=== PATIENT | male | born 1950 | race Caucasian/White ===

== ENCOUNTER 2016-11-10 09:23 | Inpatient (IN) | payer MEDICARE ==
[~2016-11-10] VITALS: Ht 180.3 cm; Wt 158.8 kg
[~2016-11-10 09:23] MED LIST: ADV1DS; AGM875T PO; ALBU17AE3; ALLP100T PO; AMLO10TA82 PO; ASCO-262 PO; ASCO500T20 PO; ASP325T PO; ASPI-892 PO; ATOR40TA PO; BYETTA SQ; CALC-656 PO; CALC-694 PO; CALC-793 PO; CARV12.52 PO; CARV25TA PO; CEPH-38 PO; CEPH500C PO; CHLO25TA2 PO; CHOL200035 PO; CHOL4PAC PO; CHOL5000 PO; CLPD75T PO; CPH250CIP; DICL500C PO; FENO145T; GABA-488 PO; GBPN300C PO; GBPN600T PO; GEMF600T3 PO; GFN600TCR PO; HCT25T PO; HYDR-757 PO; INSASP10V SQ; INSU100C7 SQ; INSU100V SQ; INSU100V6 SQ; INSU100V8; ISOS30TA7 PO; ISOS60TA PO; Insulin Human Lispro SQ; LANTIS SQ; LEVE1U SQ; LOSA100T7 PO; LOVAZA PO; MAGN400T6 PO; MTF500T PO; MULT1TAB63; NFVALS90T PO; OMEG1CAP74 PO; OMG1KC; PITA4TAB2 PO; PREG100C PO; PROP1TAB77; SULF1TAB38 PO; TIZA4CAP8 PO; VENL75TA6 PO; VITA400C60 PO; VITA400T7 PO; VLS80C; VNL75CCR PO
[2016-11-10] MEDS ORDERED: ONDANSETRON 4 MG/2 ML (SDV) Z0FRAN ONE (09:26)
[2016-11-10] MEDS ORDERED: NS IV 1000 ML 1,000 ML IV ONE (09:36)
[2016-11-10] MEDS ORDERED: ONDANSETRON 4 MG/2 ML (SDV) Z0FRAN IVP PRN (09:45)
--- NOTE | 2016-11-10 09:52 | ED General ---
General Chief Complaint: Fever-Adult/Adol Stated Complaint: FEVER/SOA Source of Information: Patient Exam Limitations: No Limitations History of Present Illness Time Seen by Provider: 09:24 Initial Comments Here with report of fever, shortness of breath and altered mental status. This apparently started yesterday. Family found him on the floor last night and got him back in the bed. Last known well time was earlier yesterday. This morning he has persistent fever and altered mental status. Also noted to be vomiting. He is answering some questions but is confused. Timing/Duration: 24 Hours Severity: Moderate, Severe Associated Systoms: Cough, Fever/Chills, Nausea/Vomiting, Shortness of Air, Weakness Allergies and Home Medications Allergies Coded Allergies: niacin (Unverified Allergy, Unknown, 06/26/10) rosuvastatin (Verified Allergy, Unknown, 04/20/07) fenofibrate (Unverified Adverse Reaction, Unknown, LIVER PROBLEMS, 01/23/15 ) Home Medications Allopurinol 100 Mg Tab, 100 MG PO DAILY, (Reported) LAST FILLED #90 07-19-14 Ascorbic Acid 500 Mg Tablet, 1,000 MG PO DAILY, (Reported) TAKES 2 (500MG) TABLETS Aspirin 81 Mg Tabec, 81 MG PO DAILY, (Reported) Calcium Carbonate/Vitamin D3 1 Each Tablet, 1 TAB PO DAILY, (Reported) Chlorthalidone 25 Mg Tablet, 12.5 MG PO DAILY, (Reported) NO FILL DATE ON FILE WITH [facility] TAKES 1/2 (25MG) TABLET Clopidogrel 75 Mg Tablet, 75 MG PO DAILY, (Reported) LAST FILLED #90 07-11-14 Gemfibrozil 600 Mg Tablet, 600 MG PO DAILY, (Reported) LAST FILLED #30 07-19-14 Hydrocodone/Acetaminophen 1 Each Tablet, 1 EACH PO Q4H PRN for PAIN, #10 Prescribed by: PRIMO FRANCOIS on 07/08/16 1332 Insulin Determir 1 Unit/0.01 Ml Soln, 105 UNIT SQ HS for 90 Days Prescribed by: GIL KAHN on 01/29/15 0905 Magnesium Oxide 400 Mg Tablet, 400 MG PO DAILY, (Reported) [place]-3/Dha/Epa/Fish Oil 1,000 Mg Capsule, 2,000 MG PO BID, (Reported) Pregabalin Unknown Strength Capsule, 100 MG PO HS, (Reported) Tizanidine HCl 4 Mg Capsule, 4 MG PO HS, (Reported) Valsartan 320 Mg Tablet, 320 MG PO DAILY, (Reported) LAST FILLED #90 10-11-14 Vitamin E Acetate 400 Unit Capsule, 400 UNIT PO DAILY, (Reported) [Insulin Human Lispro] 1 UNIT/0.01 ML HENRIQUE, 35 UNIT SQ AC for 90 Days Prescribed by: GIL KAHN on 01/29/15 0905 Constitutional: see HPI, No chills, No fever EENTM: no symptoms reported Respiratory: cough, short of breath Cardiovascular: No chest pain, No edema Gastrointestinal: No abdominal pain, No nausea, No vomiting Psychiatric/Neurological: See HPI, Other (confusion) Other Unable complete review of systems due to confusion and patient's medical condition. Past Fzkwuen-Ydujaj-Heposv Hx Patient Social History Alcohol Use: Past History Recreational Drug Use: No (MJ HX) Smoking Status: Former Smoker Former Smoker/When Quit: Aug 07, 2005 Recent Hopitalizations: No Immunizations Up To Date Tetanus Booster (TDap): Less than 5yrs Seasonal Allergies Seasonal Allergies: No Surgeries HX Surgeries: Yes Surgeries: Cardiac, Coronary Stent Respiratory Hx Respiratory Disorders: Yes (CPAP) Respiratory Disorders: Sleep Apnea, COPD Cardiovascular Hx Cardiac Disorders: Yes Cardiac Disorders: Heart Attack, Hypertension Neurological Hx Neurological Disorders: Yes (3 PINCHED NERVES ON NECK ON LEFT SIDE) Neurological Disorders: Vertigo Reproductive System Hx Reproductive Disorders: No Genitourinary Hx Genitourinary Disorders: No Gastrointestinal Hx Gastrointestinal Disorders: No Musculoskeletal Hx Musculoskeletal Disorders: Yes Musculoskeletal Disorders: Degenerate Disk Disease, Arthritis, Chronic Back Pain Endocrine Hx Endocrine Disorders: Yes Endocrine Disorders: Diabetes, Insulin dep HEENT HX ENT Disorders: No (vertigo due to inner ear disturbance) Loss of Vision: Right Cancer Hx Cancer: No Psychosocial Hx Psychiatric Problems: No Integumentary HX Skin/Integumentary Disorder: No Blood Transfusions Hx Blood Disorders: No Reviewed Nursing Assessment Reviewed/Agree w Nursing PMH: Yes Family Medical History Family Medial History: Cardiovascular disease 19 FATHER, Onset:Unknown FH: breast cancer G8 SISTER, Onset:50's - 60 FH: ovarian cancer 19 MOTHER, Onset:40's - 50 Physical Exam-Suspected Sepsis Physical Exam Vital Signs Vital Sign - Last 12Hours 11/10/16 11/10/16 09:44 09:45 Temp 102.5 Pulse 110 Resp 22 B/P (MAP) 137/84 Pulse Ox 95 O2 Delivery Room Air O2 Flow Rate 3.00 Capillary Refill : General Appearance: Mild Distress, Obese HEENT: PERRL/EOMI, Pharynx Normal Neck: Non Tender, Supple Respiratory: No Accessory Muscle Use, Crackles (bilateral bases) Cardiovascular: No Murmur, Tachycardia Gastrointestinal: Non Tender, Soft Back: Normal Inspection, No CVA Tenderness, No Vertebral Tenderness Extremity: Normal Capillary Refill, Normal Range of Motion, Non Tender Neurologic/Psychiatric: Alert, Disoriented x3 Skin: warm/dry, other (healing wounds to central chest from previous CABG. No obvious signs of infection. Right lower extremity with redness and inflammation to the area between the knee and ankle anteriorly that is tender to the touch. He has a few scattered healing wounds to both knees. Right anterior knee has new abrasion presumably from fall last night.) Focused Exam Lactic Acid Level Laboratory Tests Test 11/10/16 09:42 Lactic Acid Level 1.47 MMOL/L (0.50-2.00) Progress/Results/Core Measures Suspected Sepsis SIRS Temperature: Pulse: Respiratory Rate: Laboratory Tests 11/10/16 09:42: White Blood Count 13.5H Blood Pressure / Mean: Laboratory Tests 11/10/16 09:42: Creatinine 1.57H, INR Comment 1.2, Platelet Count 114L, Total Bilirubin 1.3H Results/Orders Lab Results Laboratory Tests Test 11/10/16 09:42 11/10/16 11:35 Range/Units White Blood Count 13.5 H 4.3-11.0 10^3/uL Red Blood Count 4.28 L 4.35-5.85 10^6/uL Hemoglobin 12.6 L 13.3-17.7 G/DL Hematocrit 37 L 40-54 % Mean Corpuscular Volume 86 80-99 FL Mean Corpuscular Hemoglobin 29 25-34 PG Mean Corpuscular Hemoglobin Concent 34 32-36 G/DL Red Cell Distribution Width 15.5 H 10.0-14.5 % Platelet Count 114 L 130-400 10^3/uL Mean Platelet Volume 10.9 H 7.4-10.4 FL Neutrophils (%) (Auto) 90 H 42-75 % Lymphocytes (%) (Auto) 4 L 12-44 % Monocytes (%) (Auto) 6 0-12 % Eosinophils (%) (Auto) 0 0-10 % Basophils (%) (Auto) 0 0-10 % Neutrophils # (Auto) 12.2 H 1.8-7.8 X 10^3 Lymphocytes # (Auto) 0.5 L 1.0-4.0 X 10^3 Monocytes # (Auto) 0.8 0.0-1.0 X 10^3 Eosinophils # (Auto) 0.0 0.0-0.3 10^3/uL Basophils # (Auto) 0.0 0.0-0.1 10^3/uL Neutrophils % (Manual) 72 % Lymphocytes % (Manual) 5 % Monocytes % (Manual) 7 % Eosinophils % (Manual) 0 % Basophils % (Manual) 0 % Band Neutrophils 15 % Reactive Lymphocytes 1 % Anisocytosis SLIGHT Prothrombin Time 14.4 12.2-14.7 SEC INR Comment 1.2 0.8-1.4 Activated Partial Thromboplast Time 27 24-35 SEC Sodium Level 133 L 135-145 MMOL/L Potassium Level 3.5 L 3.6-5.0 MMOL/L Chloride Level 102 98-107 MMOL/L Carbon Dioxide Level 19 L 21-32 MMOL/L Anion Gap 12 5-14 MMOL/L Blood Urea Nitrogen 21 H 7-18 MG/DL Creatinine 1.57 H 0.60-1.30 MG/DL Estimat Glomerular Filtration Rate 45 BUN/Creatinine Ratio 13 Glucose Level 349 H 70-105 MG/DL Lactic Acid Level 1.47 0.50-2.00 MMOL/L Calcium Level 8.0 L 8.5-10.1 MG/DL Total Bilirubin 1.3 H 0.1-1.0 MG/DL Aspartate Amino Transf (AST/SGOT) 18 5-34 U/L Alanine Aminotransferase (ALT/SGPT) 17 0-55 U/L Alkaline Phosphatase 78 40-136 U/L Troponin I < 0.30 <0.30 NG/ML Total Protein 6.0 L 6.4-8.2 G/DL Albumin 3.4 3.2-4.5 G/DL Urine Color YELLOW Urine Clarity CLEAR Urine pH 5 5-9 Urine Specific Graff 1.030 H 1.016-1.022 Urine Protein 4+ NEGATIVE Urine Glucose (UA) 4+ H NEGATIVE Urine Ketones 2+ H NEGATIVE Urine Nitrite NEGATIVE NEGATIVE Urine Bilirubin 1+ H NEGATIVE Urine Urobilinogen 1 NORMAL MG/DL Urine Leukocyte Esterase 1+ H NEGATIVE Urine RBC (Auto) 2+ H NEGATIVE Urine RBC RARE /HPF Urine WBC 0-2 /HPF Urine Squamous Epithelial Cells RARE /HPF Urine Crystals NONE /LPF Urine Bacteria TRACE /HPF Urine Casts PRESENT /LPF Urine Hyaline Casts 5-10 H /LPF Urine Mucus MODERATE H /LPF Urine Other FEW SPERM H /HPF Urine Culture Indicated NO Micro Results Microbiology 11/10/16 Influenza Types A,B Antigen ([facility]) - Final, Complete My Orders Orders - RIOS MENDEZ MD Ondansetron Injection (Zofran Injectio (11/10/16 09:26) Cbc With Automated Diff (11/10/16 09:36) Comprehensive Metabolic Panel (11/10/16 09:36) Lactic Acid Analyzer (11/10/16 09:36) Blood Culture (11/10/16 09:36) Sputum Culture (11/10/16 09:36) Ua Culture If Indicated (11/10/16 09:36) Protime With Inr (11/10/16 09:36) Partial Thromboplastin Time (11/10/16 09:36) Chest 1 View, Ap/Pa Only (11/10/16 09:36) O2 (11/10/16 09:36) Ondansetron Injection (Zofran Injectio (11/10/16 09:45) Saline Lock/Iv-Start (11/10/16 09:36) Saline Lock/Iv-Start (11/10/16 09:36) Ekg Tracing (11/10/16 09:36) Troponin I (11/10/16 09:36) Vital Signs Adult Sepsis Patie Q1HR (11/10/16 09:36) Remove Rings In Anticipation O (11/10/16 09:36) Influenza A And B Antigens (11/10/16 09:36) Ns Iv 1000 Ml (Sodium Chloride 0.9%) (11/10/16 09:36) Ct Head Wo (11/10/16 09:55) Manual Differential (11/10/16 09:42) Acetaminophen Tablet (Tylenol Tablet) (11/10/16 11:33) Ankle, Right, 3 Views (11/10/16 11:34) Acetaminophen Tablet (Tylenol Tablet) (11/10/16 11:32) Medications Given in ED Current Medications Medications Dose Ordered Sig/Perico Route Start Time Stop Time Status Last Admin Dose Admin Ondansetron HCl 4 mg ONCE PRN IVP 11/10/16 09:45 11/10/16 09:57 DC 11/10/16 09:56 4 MG Sodium Chloride 1,000 ml @ 0 mls/hr Q0M ONCE IV 11/10/16 09:36 11/10/16 09:38 DC 11/10/16 09:56 0 MLS/HR Vital Signs/I&O Vital Sign - Last 12Hours 11/10/16 11/10/16 11/10/16 09:44 09:45 11:56 Temp 102.5 102.5 Pulse 110 Resp 22 B/P (MAP) 137/84 Pulse Ox 95 O2 Delivery Room Air Nasal Cannula O2 Flow Rate 3.00 Capillary Refill : Progress Note : Progress Note Seen and evaluated. IV established by EMS. Second IV site initiated. Normal saline 1 L bolus initiated by EMS running. Repeat normal saline 1 L bolus ordered. Labs, EKG, chest x-ray, UA, blood cultures, lactic acid and influenza screen done. Monitor patient. UA obtained via straight catheter. No acute findings but patient does have redness and pain to the right lower extremity. Right ankle ordered. The skin of the right leg between the knee and the ankle is reddened, inflamed and tender and this may be the source of infection. Monitor patient. 1225: Right lower extremity cellulitis is likely diagnosis. I did discuss the case with Dr. PALACIO. We will initiate Rocephin and vancomycin admit the patient to the hospital. Patient and family agree with plan. Admit, inpatient status. Rocephin 1 g IV ordered here. ECG Initial ECG Impression Date: Nov 10, 2016 Initial ECG Impression Time: 10:23 Initial ECG Rate: 108 Initial ECG Rhythm: S.Tach Comment Sinus tachycardia with nonspecific intraventricular conduction delay. No evidence of ST elevation DC. Similar to previous of 08/07/15. Interpreted by me. Diagnostic Imaging Diagonstic Imaging: CT Plain Films/CT/US/NM/MRI: head Comments [facility]IA [facility]. [place], [place] NAME: ELMO GARCIA REC#: [id number] PT STATUS: REG ER : 1950 PHYSICIAN: RIOS MENDEZ MD ADMIT DATE: 11/10/16/ER Draft Date of Exam:11/10/16 CT HEAD WO PROCEDURE: CT head without contrast. TECHNIQUE: Multiple contiguous axial images were obtained through the brain without the use of intravenous contrast. INDICATION: Weakness, short of air, fever. Compared 06/01/2016. Ventricular size, caliber, and morphology unchanged from prior. There is no intracranial hemorrhage. There are no findings of focal or generalized edema. No mass or mass effect. The basilar cisterns patent. The sulci non effaced. Mild atherosclerotic vascular calcifications chronic. No acute pathology. IMPRESSION: Stable head CT revealed no hemorrhage, hydrocephalus, edema, or acute pathology. Unchanged from prior. Dictated on workstation # [id number] Dict: 11/10/16 1038 Trans: 11/10/16 1048 MIGUEL [id number] Interpreted by: STELLA HENDERSON Electronically signed by: Merlyngonscarolyn Imaging: Xray Plain Films/CT/US/NM/MRI: chest Comments VIA [facility]. [place], [place] NAME: ELMO GARCIA [facility] REC#: [id number] PT STATUS: REG ER : 1950 PHYSICIAN: RIOS MENDEZ MD ADMIT DATE: 11/10/16/ER Draft Date of Exam:11/10/16 CHEST 1 VIEW, AP/PA ONLY INDICATION: Fever and dyspnea, generalized weakness. DISCUSSION: A single portable upright view of the chest was obtained with comparison made to 08/07/2015. Stable normal heart size. Median sternotomy is unchanged. No focal consolidation, pleural fluid, or pneumothorax. No osseous abnormality. IMPRESSION: Stable negative portable chest. Dictated on workstation # [id number] Dict: 11/10/16 1019 Trans: 11/10/16 1022 [id number] Interpreted by: CLINTON MOREL MD Electronically signed by: Departure Communication Time/Spoke to Admitting Phy: 12:25 Impression Impression: Primary Impression: Cellulitis of right lower extremity Additional Impressions: Poorly controlled diabetes mellitus Altered mental status Qualified Codes: R41.0 - Disorientation, unspecified Disposition: ADMITTED INPATIENT Condition: Stable Decision to Admit Reason: Admit from ER (General) Decision to Admit/Date: Nov 10, 2016 Time/Decision to Admit Time: 12:25 Departure-Patient Inst. Referrals: GIL KAHN DO (PCP/Family) Primary Care Physician RIOS MENDEZ MD Nov 10, 2016 09:52
[2016-11-10 10:00] LABS: BASOPHILS % (AUTO) 0 % (0-10); EOSINOPHILS % (AUTO) 0 % (0-10); LYMPHOCYTES # (AUTO) 0.5 X 10^3 (1.0-4.0); LYMPHOCYTES % (AUTO) 4 % (12-44); MEAN CORPUSCULAR HEMOGLOBIN 29 PG (25-34); MEAN CORPUSCULAR HGB CONC 34 G/DL (32-36); MEAN CORPUSCULAR VOLUME 86 FL (80-99); MEAN PLATELET VOLUME 10.9 FL (7.4-10.4); MONOCYTES # (AUTO) 0.8 X 10^3 (0.0-1.0); MONOCYTES % (AUTO) 6 % (0-12); NEUTROPHILS # (AUTO) 12.2 X 10^3 (1.8-7.8); NEUTROPHILS % (AUTO) 90 % (42-75); PLATELET COUNT 114 10^3/uL (130-400); RED BLOOD COUNT 4.28 10^6/uL (4.35-5.85); RED CELL DISTRIBUTION WIDTH 15.5 % (10.0-14.5); WHITE BLOOD COUNT 13.5 10^3/uL (4.3-11.0)
[2016-11-10 10:16] LABS: INR 1.2 (0.8-1.4); PROTHROMBIN TIME PATIENT 14.4 SEC (12.2-14.7)
--- NOTE | 2016-11-10 10:22 | Diagnostic Imaging Report ---
INDICATION: Fever and dyspnea, generalized weakness. DISCUSSION: A single portable upright view of the chest was obtained with comparison made to 08/07/2015. Stable normal heart size. Median sternotomy is unchanged. No focal consolidation, pleural fluid, or pneumothorax. No osseous abnormality. IMPRESSION: Stable negative portable chest. Dictated by: Dictated on workstation # [id number]
[2016-11-10 10:23] LABS: ALANINE AMINOTRANSFERASE 17 U/L (0-55); ALBUMIN 3.4 G/DL (3.2-4.5); ANION GAP 12 MMOL/L (5-14); ASPARTATE AMINO TRANSFERASE 18 U/L (5-34); BILIRUBIN,TOTAL 1.3 MG/DL (0.1-1.0); BLOOD UREA NITROGEN 21 MG/DL (7-18); BUN/CREATININE RATIO 13; CARBON DIOXIDE 19 MMOL/L (21-32); CHLORIDE 102 MMOL/L (98-107); CREATININE SERUM 1.57 MG/DL (0.60-1.30); GFR ESTIMATED 45; GLUCOSE 349 MG/DL (70-105); POTASSIUM 3.5 MMOL/L (3.6-5.0); SODIUM 133 MMOL/L (135-145)
[2016-11-10 10:26] LABS: BAND NEUTROPHILS 15 %; BASOPHILS % (MANUAL) 0 %; EOSINOPHILS % (MANUAL) 0 %; LYMPHOCYTES % (MANUAL) 5 %; NEUTROPHILS % (MANUAL) 72 %
[2016-11-10 10:27] LABS: ANISOCYTOSIS SLIGHT; REACTIVE LYMPHOCYTES 1 %
[2016-11-10 10:29] LABS: TROPONIN I < 0.30 NG/ML (<0.30)
--- NOTE | 2016-11-10 10:48 | Diagnostic Imaging Report ---
PROCEDURE: CT head without contrast. TECHNIQUE: Multiple contiguous axial images were obtained through the brain without the use of intravenous contrast. INDICATION: Weakness, short of air, fever. Compared 06/01/2016. Ventricular size, caliber, and morphology unchanged from prior. There is no intracranial hemorrhage. There are no findings of focal or generalized edema. No mass or mass effect. The basilar cisterns patent. The sulci non effaced. Mild atherosclerotic vascular calcifications chronic. No acute pathology. IMPRESSION: Stable head CT revealed no hemorrhage, hydrocephalus, edema, or acute pathology. Unchanged from prior. Dictated by: Dictated on workstation # [id number]
[2016-11-10] MEDS ORDERED: ACETAMINOPHEN 500 MG TAB (TYLENOL) ONE (11:32)
[2016-11-10] MEDS ORDERED: ACETAMINOPHEN 500 MG TAB (TYLENOL) PO STA (11:33)
[2016-11-10 11:39] LABS: KETONES,URINE 2+ (NEGATIVE); LEUKOCYTE ESTERASE ,URINE 1+ (NEGATIVE); NITRITE,URINE NEGATIVE (NEGATIVE); PH,URINE 5 (5-9); PROTEIN,URINE 4+ (NEGATIVE); UROBILINOGEN,URINE 1 MG/DL (NORMAL)
[2016-11-10 11:56] LABS: BILIRUBIN,URINE 1+ (NEGATIVE); SQUAMOUS EPITHELIAL CELL,UR RARE /HPF; WBC,URINE 0-2 /HPF
--- NOTE | 2016-11-10 12:29 | Diagnostic Imaging Report ---
ANKLE, RIGHT, 3 VIEWS COMPARISON: None available. INDICATION: Ankle pain. TECHNIQUE: Non-weight bearing AP, oblique, and lateral views. FINDINGS: No acute fracture or traumatic malalignment. No osteochondral lesion of the talar dome. There is some irregularity of the posterior malleolus articular surface, which may be due to old trauma or degenerative change. There are small marginal osteophytes along the anterior aspect of the tibial plafond. Soft tissue attenuation, anterior fat pad, could relate to synovitis and/or small ankle joint effusion. Large dorsal and small plantar calcaneal spurs. No evidence of stress fracture. IMPRESSION: 1. No acute fracture or traumatic malalignment. 2. Irregularity of the posterior aspect of the tibial plafond is likely due to old trauma or degenerative change. 3. Mild osteoarthritis of the tibiotalar joint, with small anterior spurs. Dictated by: Dictated on workstation # [id number]
[2016-11-10] MEDS ORDERED: cefTRIAXone INJECTION 1,000 MG in NS (IVPB) 50 ML IV ONE (12:30)
[2016-11-10] MEDS: NS IV 1000 ML 1,000 ML IV SCH (14:57)
[2016-11-10] MEDS ORDERED: CARV25TA PO (15:30)
[2016-11-10] MEDS ORDERED: POTA10TA14 PO (15:30)
[2016-11-10] MEDS ORDERED: INSU100I29 SQ (15:30)
[2016-11-10] MEDS ORDERED: ONDA4TAB10 PO (15:30)
[2016-11-10] MEDS ORDERED: VALS320T14 PO (15:30)
[2016-11-10] MEDS ORDERED: ALLO100T PO (15:30)
[2016-11-10] MEDS ORDERED: CLOP75TA28 PO (15:30)
[2016-11-10] MEDS ORDERED: VENL150C98 PO (15:30)
[2016-11-10] MEDS ORDERED: GABA-488 PO (15:30)
[2016-11-10] MEDS ORDERED: GEMF600T3 PO (15:30)
[2016-11-10] MEDS ORDERED: AMLO10TA2 PO (15:30)
[2016-11-10] MEDS ORDERED: OMEP20CA12 PO (15:30)
[2016-11-10] MEDS ORDERED: FOLI1TAB24 PO (15:30)
[2016-11-10] MEDS ORDERED: INSU100V SQ (15:30)
[2016-11-10] MEDS ORDERED: FURO20TA4 PO (15:30)
[2016-11-10] MEDS: inSUlin (REGULAR) HUMAN 1 UNIT/0.01 ML (CHARGE PER UNIT) SC SCH ×2 (15:44→23:09)
[2016-11-10 16:00] VITALS: BP 128/73
[2016-11-10] MEDS ORDERED: VANCOMYCIN 2000 MG/NS 500 ML IVPB IV NR ×2 (16:00)
[2016-11-10 20:38] VITALS: BP 123/73
[2016-11-10] MEDS ORDERED: inSUlin ASPART (NovoLOG) 1 UNIT/0.01 ML (CHARGE PER UNIT) SC ONE (22:45)
[2016-11-11 00:30] VITALS: BP 132/74
[2016-11-11] MEDS: NS IV 1000 ML 1,000 ML IV SCH (01:08)
[2016-11-11] MEDS: ACETAMINOPHEN 500 MG TAB (TYLENOL) PO PRN (01:50)
[2016-11-11] MEDS: VANCOMYCIN 1,750 MG/NS 500 ML IVPB IV SCH ×4 (04:02→17:43)
[2016-11-11 04:20] VITALS: BP 130/74
[2016-11-11] MEDS: inSUlin (REGULAR) HUMAN 1 UNIT/0.01 ML (CHARGE PER UNIT) SC SCH ×4 (05:33→21:18)
[2016-11-11 06:42] LABS: BASOPHILS % (AUTO) 0 % (0-10); EOSINOPHILS % (AUTO) 0 % (0-10); LYMPHOCYTES # (AUTO) 1.1 X 10^3 (1.0-4.0); LYMPHOCYTES % (AUTO) 9 % (12-44); MEAN CORPUSCULAR HEMOGLOBIN 29 PG (25-34); MEAN CORPUSCULAR HGB CONC 34 G/DL (32-36); MEAN CORPUSCULAR VOLUME 86 FL (80-99); MEAN PLATELET VOLUME 10.8 FL (7.4-10.4); MONOCYTES % (AUTO) 8 % (0-12); NEUTROPHILS # (AUTO) 9.7 X 10^3 (1.8-7.8); NEUTROPHILS % (AUTO) 82 % (42-75); PLATELET COUNT 121 10^3/uL (130-400); RED BLOOD COUNT 4.26 10^6/uL (4.35-5.85); RED CELL DISTRIBUTION WIDTH 15.6 % (10.0-14.5); WHITE BLOOD COUNT 11.8 10^3/uL (4.3-11.0)
[2016-11-11 07:12] LABS: ALBUMIN 3.2 G/DL (3.2-4.5); BILIRUBIN,TOTAL 0.9 MG/DL (0.1-1.0); CALCIUM 8.5 MG/DL (8.5-10.1); CREATININE SERUM 1.25 MG/DL (0.60-1.30); POTASSIUM 3.5 MMOL/L (3.6-5.0)
[2016-11-11 08:00] VITALS: BP 152/78
--- NOTE | 2016-11-11 10:38 | History & Physical-Hospitalist ---
HPI History of Present Illness: HPI/Chief Complaint CC: Cellulitis of right lower leg HPI: This is a 66yoWM pt of Dr. Pelletier's that presented to ER with fever and right lower leg redness. Pt was found on the floor and was vomiting yesterday. Pt lives alone at home, and we are unclear if pt will be able to maintain this living situation. Chart Review: Max fever 102.5 Vitals stable otherwise WBC from 13.5 to 11.8 Platelets 121k K+ 3.5 Sugars high but restarted home Insulin jackaroo: RN states that pt has elevated BP and home meds have not been reconciled. Pt is on sliding scale Insulin currently. Patient Interview: Pt states that he feels improved today. Pt's PCP is Dr. Pelletier and he sees him every 6 months. Pt's [employer] is Dr. Yoon in [place], and he has an appointment with him in November. Pt reports that he has a closed Carotid, and is being monitored for that Pt states that he has felt dizzy recently. Pt occasionally uses a walker to ambulate, and often uses a cane. Pt lives at home alone, and uses CPAP regularly. Pts CPAP has O2. Pt does not see wound care. Last summer pt was brought to [facility] in [place] for surgery. Physical exam stable. Pt requests topical cream. Scribed by Felipe Moran under the direct supervision of Dr. Zepeda. Source: patient, family Exam Limitations: no limitations Date Seen 11/11/16 Attending Physician Jax Winkler MD PCP Kevin Pelletier DO Referring Physician Date of Admission Nov 10, 2016 at 12:25 Home Medications & Allergies Home Medications Reviewed patient Home Medication Reconciliation Form Allergies Allergies Coded Allergies niacin (Unverified Allergy, Unknown, 06/26/10) rosuvastatin (Verified Allergy, Unknown, 04/20/07) fenofibrate (Unverified Adverse Reaction, Unknown, LIVER PROBLEMS, 01/23/15) Past Qkdkayp-Jxpohq-Mqwlxk Hx Patient Social History Marrital Status: single Employed/Student: unemployed Alcohol Use: Past History Recreational Drug Use: No (MJ HX) Smoking Status: Former Smoker Former smoker/When Quit: Aug 07, 2005 Physical Abuse Screen: No Sexual Abuse: No Recent Foreign Travel: No Contact w/other who traveled: No Recent Hopitalizations: No Recent Infectious Disease Expo: No Immunizations Up To Date Tetanus Booster (TDap): Less than 5yrs Seasonal Allergies Seasonal Allergies: No Surgeries HX Surgeries: Yes Surgeries: Cardiac, Coronary Stent Respiratory Hx Respiratory Disorders: Yes (CPAP) Respiratory Disorders: Sleep Apnea Cardiovascular Hx Cardiovascular Disorders: Yes Cardiac Disorders: Heart Attack, Hypertension Neurological Hx Neurological Disorders: Yes (3 PINCHED NERVES ON NECK ON LEFT SIDE) Neurological Disorders: Vertigo Reproductive System Hx Reproductive Disorders: No Genitourinary Hx Genitourinary Disorders: No Gastrointestinal Hx Gastrointestinal Disorders: No Musculoskeletal Hx Musculoskeletal Disorders: Yes Musculoskeletal Disorders: Degenerate Disk Disease, Arthritis, Chronic Back Pain Endocrine Hx Endocrine Disorders: Yes Endocrine Disorders: Diabetes, Insulin dep HEENT HX ENT Disorders: No (vertigo due to inner ear disturbance) Loss of Vision: Right Cancer Hx Cancer: No Psychosocial Hx Psychiatric Problems: No Integumentary HX Skin/Integumentary Disorder: No Blood Transfusions Hx Blood Disorders: No Reviewed Nursing Assessment Reviewed/Agree w Nursing PMH: Yes Family Medical History Family Hx: Cardiovascular disease 19 FATHER, Onset:Unknown FH: breast cancer G8 SISTER, Onset:50's - 60 FH: ovarian cancer 19 MOTHER, Onset:40's - 50 No Family History of: Cancer of mouth Review of Systems Constitutional: see HPI, dizziness, malaise, weakness EENTM: no symptoms reported Respiratory: no symptoms reported Cardiovascular: no symptoms reported Gastrointestinal: no symptoms reported Genitourinary: no symptoms reported Musculoskeletal: back pain Skin: no symptoms reported Psychiatric/Neurological: Depressed All Other Systems Reviewed Negative Unless Noted: Yes Physical Exam Physical Exam Vital Signs Vital Sign - Last 12Hours 11/10/16 11/10/16 09:44 09:45 Temp 102.5 Pulse 110 Resp 22 B/P (MAP) 137/84 Pulse Ox 95 O2 Delivery Room Air O2 Flow Rate 3.00 Capillary Refill : Less Than 3 Seconds General Appearance: No Apparent Distress, WD/WN, Chronically ill, Obese Eyes: Bilateral Eye Normal Inspection, Bilateral Eye PERRL HEENT: PERRL/EOMI, Normal ENT Inspection, Pharynx Normal Neck: Full Range of Motion, Normal Inspection, Non Tender, Supple, Carotid Bruit Respiratory: Chest Non Tender, Lungs Clear, No Accessory Muscle Use, No Respiratory Distress, Decreased Breath Sounds Cardiovascular: Regular Rate, Rhythm, No Edema, No Gallop, No JVD, No Murmur, Normal Peripheral Pulses Gastrointestinal: Normal Bowel Sounds, No Organomegaly, No Pulsatile Mass, Non Tender, Soft Back: Normal Inspection, No CVA Tenderness, No Vertebral Tenderness Extremity: Normal Capillary Refill, Normal Inspection, Normal Range of Motion, Non Tender, No Calf Tenderness, No Pedal Edema Neurologic/Psychiatric: Alert, Oriented x3, No Motor/Sensory Deficits, Normal Mood/Affect Skin: Normal Color, Warm/Dry, Other (right leg w/erythema but much improved no ulcerations and no drainage, abrasion noted on knee) Lymphatic: No Adenopathy Results Results/Procedures Lab Laboratory Tests 11/10/16 09:42 11/11/16 06:14 Assessment/Plan Admission Diagnosis Assessment: Right lower extremity cellulitis w/abrasion Severe weakness and dizziness with falls Severe debility CAD s/p CABG 02/14 DM insulin dependent HTN HLP TREE on CPAP Morbid obesity Leukocytosis Carotid stenosis moderately severe per patient Assessment and Plan Plan: IV abx CPAP Reconciled all home meds Monitor closely PT/OT IRF? HH? Possible DC tomorrow? Sister concerned about him living alone Clinical Quality Measures DVT/VTE Risk/Contraindication: Risk Factor Score Per Nursin RFS Level Per Nursing on Admit: 4+=Very High GODFREY ZEPEDA DO Nov 11, 2016 10:38
--- NOTE | 2016-11-11 11:13 | Physical Therapy Progress Note ---
Therapy Progress Note Chart reviewed and evaluation attempted. Patient in bed with CPAP on. Patient refuses treatment. He states he has had a lot of activity this morning and just got back to bed and he is too tired to participate. Told patient I would try back this afternoon. BETTY STRONG PT Nov 11, 2016 11:13
[2016-11-11] MEDS ORDERED: ONDANSETRON 4 MG (ZOFRAN) ORAL DISSOLVE TAB PO PRN (11:45)
[2016-11-11] MEDS: CARVEDILOL 12.5 MG (COREG) TABLET PO SCH ×2 (11:51→21:16)
[2016-11-11] MEDS: VENlafaxine XR 75 MG (EFFEXOR XR) CAP PO SCH (11:51)
[2016-11-11] MEDS: ENOXAPARIN 40 MG/0.4 ML (LOVENOX) SYR SC SCH (11:51)
[2016-11-11] MEDS: SILVER SULFADIAZINE 50 GM CREAM TOP SCH ×2 (11:52→21:17)
[2016-11-11 12:00] VITALS: BP 137/78
[2016-11-11] MEDS: OMEGA 3 (FISH OIL) 1000 MG CAP PO SCH ×2 (13:43→17:45)
[2016-11-11] MEDS: inSUlin ASPART (NovoLOG) 1 UNIT/0.01 ML (CHARGE PER UNIT) SC SCH ×2 (13:44→18:56)
--- NOTE | 2016-11-11 14:29 | Occupational Therapy Eval ---
OT Evaluation-General/PLF Medical Diagnosis Admission Date Nov 10, 2016 at 12:25 Medical Diagnosis: Cellulitis right LE Onset Date: Nov 10, 2016 Therapy Diagnosis Therapy Diagnosis: Weakness Height/Weight Height (Feet): 5 Height (Inches): 11.00 Weight (Pounds): 350 Weight (Ounces): 0.0 Precautions Precautions/Isolations: Fall Prevention Weight Bear Status Weight Bearing Restriction: Weight Bearing/Tolerated Referral Physician: Dr. Oconnor Referral Reason: Activity Tolerance, Self Care, Evaluation/Treatment, Strengthening/ROM Medical History Pertinent Medical History: CABG, CAD, COPD, DM, HTN, Neuropathy Additional Medical History 3 pinched nerves on neck (left side.) Carotid stenosis. Current History Pt. states that he became weak at home and fell on floor. Unable to get up. States that a neighbor found him an hour later. Reviewed History: Yes Social History Current Living Status: Alone ADL-Prior Level of Function ADL PLOF Comments Pt. states that he was driving a little bit, but not much. States that he was able to bathe and dress himself. DME/Equipment: Grab Bars, Tub/Shower DME/Equipment Comments Pt. uses a cane some but not in the house. Does not have a walker or shower seat. Drive Self: Yes OT Current Status Subjective Pt. reports 9/10 pain right LE. States that it is "burning." States that nursing is aware. Appearance Pt. is in bed with CPAP machine on. Agrees to take it off and work with OT. Mental Status/Objective Patient Orientation: Person, Place Current Upper Extremity ROM WFL bilaterally Upper Extremity Strength 4/5 bilaterally throughout. ADL-Treatment Functional [place] Measure 0=Not Assessed/NA 4=Minimal Assistance 1=Total Assistance 5=Supervision or Setup 2=Maximal Assistance 6=Modified [place] 3=Moderate Assistance 7=Complete IndependenceIRFPAI Quality Coding Scale 6 Independent with activity with or without an assistive device 5 Patient requires set up or clean up by helper. Patient completes activity by themselves 4 Supervision or touching assist (CGA). [place] provide cues , steadying assist 3 The helper provides less than half the effort to complete the activity 2 The helper provides more than half the effort to complete the activity 1 Dependent. The helper does all the effort to complete an activity 7 Patient refused to complete or attempt activity 9 The patient did not perform the activity before the current illness or injury 88 Not attempted due to Medical conditions or safety concerns Eating (FIM): 7 (Pt's lunch tray comes in while OT working with pt. Pt. able to open all packages and eat with no difficulty.) Lower Body Dressing (FIM): 3 (Pt. is able to doff socks, but unable to don them. States that he either does not wear them, or that his neighbor will put them on for him.) Transfers (B, C, W/C) (FIM): 4 (Pt. is able to transfer supine-sit with SBA. However is somewhat unsafe in doing this as he rocks self to get to edge. Pt. then transfers sit-stand and over to chair with CGA and walker.) Once pt. is up in chair, he attempts to practice his socks. Unable to get them back on after removing them with the other foot. Pt's lunch comes. Pt. is educated about need for rehab or continued skilled therapy, as he fell at home and states that he was not strong enough to get back up. Pt. states he is open to rehab, but wants to "go home first." Pt. states that he is also open to cardiac rehab, because he had it before. Pt. is educated that cardiac may not be his best option, as he needs to get his legs stronger. Ask him about home health services and he states, "I don't want anyone in my house that I don't know. Its none of their business what I do." Pt. also explains that he has difficulty driving. Pt. asks about possibly having the [facility] come and get him. OT educates him again on need to gain strength before discharge home. Pt. verbalizes understanding but states "I will think about it." Education OT Patient Education: Correct positioning, Modified ADL techniques, Progress toward Goal/Update tx plan, Purpose of tx/functional activities, Reviewed precautions, Rehab process, Transfer techniques Teaching Recipient: Patient Teaching Methods: Demonstration, Discussion Response to Teaching: Verbalize Understanding, Return Demonstration OT Short Term Goals Short Term Goals 1=Demonstrate adherence to instructed precautions during ADL tasks. 2=Patient will verbalize/demonstrate understanding of assistive devices/ modifications for ADL. 3=Patient will improve strength/tolerance for activity to enable patient to perform ADL's. OT Insulation Engineman Goals Insulation Engineman Goals 1=Demonstrate adherence to instructed precautions during ADL tasks. 2=Patient will verbalize/demonstrate understanding of assistive devices/ modifications for ADL. 3=Patient will improve strength/tolerance for activity to enable patient to perform ADL's. OT Education/Plan Problem List/Assessment Assessment: Decreased Activ Tolerance, Impaired Bed Mobility, Impaired Funct Balance, Impaired I ADL's, Impaired Self-Care Skills Discharge Recommendations Plan/Recommendations: Continue POC Therapy D/C Recommendations: Acute Rehab Equpiment Recommendations-D/C: Extended Bath Bench, Hip Kit Comment Pt. needs a walker. Heavy duty. Treatment Plan/Plan of Care Treatment,Training & Education: Yes Patient would benefit from OT for education, treatment and training to promote independence in ADL's, mobility, safety and/or upper extremity function for ADL' s. Plan of Care: ADL Retraining, Functional Mobility, UE Funct Exercise/Act Treatment Duration: Nov 25, 2016 # of days/week 5-6 Visits Per Week: 5-6 Agreement: Yes Rehab Potential: Fair Time/GCodes Start Time: 14:00 Stop Time: 14:20 Total Time Billed (hr/min): 20 Billed Treatment Time 1, AARON Urias OT Nov 11, 2016 14:29
[2016-11-11] MEDS ORDERED: TROUGH ORDER-PHARMACY XX NR (15:00)
--- NOTE | 2016-11-11 15:03 | Physical Therapy Evaluation ---
PT Evaluation-General Medical Diagnosis Admission Date Nov 10, 2016 at 12:25 Medical Diagnosis: Cellulitis right LE Onset Date: Nov 10, 2016 Therapy Diagnosis Therapy Diagnosis: impaired mobility, strength Height/Weight Height (Feet): 5 Height (Inches): 11.00 Weight (Pounds): 350 Weight (Ounces): 0.0 Precautions Precautions/Isolations: Fall Prevention Weight Bear Status Weight Bearing Restriction: Weight Bearing/Tolerated Referral Physician: Dr. Oconnor Reason for Referral: Evaluation/Treatment Medical History Pertinent Medical History: Arthritis, CABG, CAD, COPD, DM, HTN, [place], Neuropathy Additional Medical History former smoker, uses CPAP, vertigo, left neck pinched nerves, DDD, chronic back pain Current History went to ER with fever and right lower leg redness and was found on the floor vomiting, patient has cellulitis in right lower leg Reviewed History: Yes Social History Home: Single Level Current Living Status: Alone Entry Into Home: Stairs Without Railing PT Steps Into Home: 2 Prior/Core FIM Prior Level of Function Functional [place] Measure 0=Not Assessed/NA 4=Minimal Assistance 1=Total Assistance 5=Supervision or Setup 2=Maximal Assistance 6=Modified [place] 3=Moderate Assistance 7=Complete [place] Bed Mobility: 6 Transfers (B,C,W/C) (FIM): 6 Gait: 6 Patient states he would use a single point cane on occasion. PT Evaluation-Current Subjective Patient in recliner pre tx, agrees to PT, states he is always dizzy because of blocked carotid in his neck. Patient in bed post tx with nurse call, phone, tray, all needs met. Patient states he has pain of 3/10 in his buttocks he says from straining move the other day. Pt/Family Goals to be independent at home Objective Patient Orientation: Person, Place, Situation ROM/Strength ROM Lower Extremities WNL Strenght Lower Extremities 4/5 to 4-/5 gross strength bilateral lower extremities Integumentary/Posture Bowel Incontinence: No Bladder Incontinence: No Neuromuscular (Tone, Coordination, Reflexes) decreased coordination bilateral lower extremities Sensory Vision: Functional Hearing: Functional Sensation Right Lower Extremit: Impaired Sensation Left Lower Extremity: Impaired Transfers Functional [place] Measure 0=Not Assessed/NA 4=Minimal Assistance 1=Total Assistance 5=Supervision or Setup 2=Maximal Assistance 6=Modified [place] 3=Moderate Assistance 7=Complete [place] Transfers (B, C, W/C) (FIM): 4 Scootin Rollin Supine to/from Sit: 5 Sit to/from Stand: 4 Cues for safety and hand placement. Some unsteadiness but no LOB. Gait Mode of Locomotion: Walk Anticipated Mode of Locomotion: Walk Gait (FIM): 2 Distance: 120' Gait Level of Assist: 4 Gait Persons Needed: 1 Gait Assistive Device: FWW Comments/Gait Description Patient is a little unsteady with gait but no LOB, poor heel strike, uncoordinated. Balance Sitting Static: Normal Sitting Dynamic: Normal Standing Static: Fair Standing Dynamic: Fair Treatment none, patient wanted to get back into bed and finish his lunch Assessment/Needs Patient has impaired mobility and strength, impaired coordination and balance. Rehab Potential: Fair PT Correction Goals Professor Of Geology Goals PT Correction Goals Time Frame: Nov 18, 2016 Transfers (B,C,W/C) (FIM): 5 Gait (FIM): 5 Distance: 200' Gait Level of Assist: 5 Gait Assistive Device: FWW PT Plan Problem List Problem List: Activity Tolerance, Functional Strength, Safety, Balance, Gait, Transfer Treatment/Plan Treatment Plan: Continue Plan of Care Treatment Plan: Education, Functional Activity Farshad, Functional Strength, Gait , Safety, Therapeutic Exercise, Transfers Treatment Duration: Nov 18, 2016 # of days/week 5-6 Visits Per Week: 5-6 Minutes/Day (M-F): 15-30 Minutes/Day (Sat/Little): 15-30 Pt/Family Agrees w/Plan: Yes Safety Risks/Education Patient Education: Gait Training, Transfer Techniques, Correct Positioning, Disease Process, Safety Issues Teaching Recipient: Patient Teaching Methods: Demonstration, Discussion Response to Teaching: Reinforcement Needed Discharge Recommendations Plan Patient will perform bed mobility and transfer training, balance and endurance training, functional strengthening, stair training, gait training, and education , to improve functional mobility and independence at home. Therapy D/C Recommendations: Home w/ Family Support Time/GCodes Time In: 1440 Time Out: 1455 Total Billed Treatment Time: 15 Total Billed Treatment 1 visit EVL 15 min BETTY STRONG PT Nov 11, 2016 15:03
[2016-11-11 16:10] VITALS: BP 153/76
[2016-11-11 19:20] VITALS: BP 156/88
[2016-11-11] MEDS: FOLIC ACID 1 MG TAB PO SCH (21:16)
[2016-11-11] MEDS: GABAPENTIN 300 MG (NEURONTIN) CAP PO SCH (21:16)
[2016-11-11] MEDS: CLOPIDOGREL 75 MG (PLAVIX) TABLET PO SCH (21:16)
[2016-11-11] MEDS: inSUlin DETERMIR 1 UNIT/0.01 ML (LEVEMIR) CHARGE PER UNIT SQ SCH (21:17)
[2016-11-12] VITALS: BP 139/71
[2016-11-12] MEDS: ACETAMINOPHEN 500 MG TAB (TYLENOL) PO PRN ×2 (00:09→07:51)
[2016-11-12 04:00] VITALS: BP 107/64
[2016-11-12] MEDS: VANCOMYCIN 1,750 MG/NS 500 ML IVPB IV SCH ×2 (04:35)
[2016-11-12] MEDS: PANTOPRAZOLE 20 MG TABLET (PROTONIX) PO SCH (07:04)
[2016-11-12] MEDS: KCL 10 MEQ TAB (MICRO K) PO SCH (07:04)
[2016-11-12] MEDS: VENlafaxine XR 75 MG (EFFEXOR XR) CAP PO SCH (07:05)
[2016-11-12] MEDS: OMEGA 3 (FISH OIL) 1000 MG CAP PO SCH ×2 (07:05→17:25)
[2016-11-12] MEDS: VITAMIN E 400 INTLU CAP PO SCH (07:05)
[2016-11-12] MEDS: inSUlin (REGULAR) HUMAN 1 UNIT/0.01 ML (CHARGE PER UNIT) SC SCH ×4 (07:11→21:46)
[2016-11-12] MEDS: inSUlin ASPART (NovoLOG) 1 UNIT/0.01 ML (CHARGE PER UNIT) SC SCH ×3 (07:11→17:25)
[2016-11-12 07:13] LABS: BASOPHILS % (AUTO) 0 % (0-10); EOSINOPHILS # (AUTO) 0.1 10^3/uL (0.0-0.3); EOSINOPHILS % (AUTO) 1 % (0-10); LYMPHOCYTES # (AUTO) 1.3 X 10^3 (1.0-4.0); LYMPHOCYTES % (AUTO) 18 % (12-44); MEAN CORPUSCULAR HEMOGLOBIN 29 PG (25-34); MEAN CORPUSCULAR HGB CONC 34 G/DL (32-36); MEAN CORPUSCULAR VOLUME 87 FL (80-99); MEAN PLATELET VOLUME 10.7 FL (7.4-10.4); MONOCYTES # (AUTO) 0.7 X 10^3 (0.0-1.0); MONOCYTES % (AUTO) 10 % (0-12); NEUTROPHILS % (AUTO) 71 % (42-75); PLATELET COUNT 104 10^3/uL (130-400); RED BLOOD COUNT 3.99 10^6/uL (4.35-5.85); RED CELL DISTRIBUTION WIDTH 15.4 % (10.0-14.5); WHITE BLOOD COUNT 7.1 10^3/uL (4.3-11.0)
[2016-11-12 07:41] LABS: ALANINE AMINOTRANSFERASE 20 U/L (0-55); ALBUMIN 3.1 G/DL (3.2-4.5); ANION GAP 11 MMOL/L (5-14); ASPARTATE AMINO TRANSFERASE 22 U/L (5-34); BILIRUBIN,TOTAL 0.7 MG/DL (0.1-1.0); BLOOD UREA NITROGEN 17 MG/DL (7-18); BUN/CREATININE RATIO 16; CALCIUM 8.7 MG/DL (8.5-10.1); CARBON DIOXIDE 20 MMOL/L (21-32); CHLORIDE 105 MMOL/L (98-107); CREATININE SERUM 1.05 MG/DL (0.60-1.30); GFR ESTIMATED > 60; GLUCOSE 229 MG/DL (70-105); POTASSIUM 3.7 MMOL/L (3.6-5.0); SODIUM 136 MMOL/L (135-145); TOTAL PROTEIN 5.9 G/DL (6.4-8.2)
[2016-11-12 08:00] VITALS: BP 158/84
[2016-11-12] MEDS: GEMFIBROZIL 600 MG (LOPID) TAB PO SCH (09:01)
[2016-11-12] MEDS: CATHETER FLUSH 10 ML SYR IV PRN (09:01)
[2016-11-12] MEDS: CALCIUM CARB + VIT D 600 MG (CALCARB + D) TAB PO SCH (09:02)
[2016-11-12] MEDS: ALLOPURINOL 100 MG (ZYLOPRIM) TAB PO SCH (09:02)
[2016-11-12] MEDS: amLODIPine 10 MG (NORVASC) TAB PO SCH (09:02)
[2016-11-12] MEDS: FOLIC ACID 1 MG TAB PO SCH ×2 (09:02→21:45)
[2016-11-12] MEDS: CLOPIDOGREL 75 MG (PLAVIX) TABLET PO SCH ×2 (09:02→21:45)
[2016-11-12] MEDS: ASPIRIN E.C. 81 MG (ECOTRIN) TAB PO SCH (09:02)
[2016-11-12] MEDS: MAGNESIUM OXIDE (MAG-OX)400 MG TAB PO SCH (09:02)
[2016-11-12] MEDS: FUROSEMIDE 20 MG (LASIX) TAB PO SCH (09:02)
[2016-11-12] MEDS: GABAPENTIN 300 MG (NEURONTIN) CAP PO SCH ×2 (09:03→21:45)
[2016-11-12] MEDS: ASCORBIC ACID (VIT C) 500 MG TABLET PO SCH (09:03)
[2016-11-12] MEDS: VALSARTAN 80 MG (DIOVAN) TAB PO SCH (09:03)
[2016-11-12] MEDS: CARVEDILOL 12.5 MG (COREG) TABLET PO SCH ×2 (09:05→21:45)
[2016-11-12] MEDS: SILVER SULFADIAZINE 50 GM CREAM TOP SCH ×2 (09:06→21:46)
--- NOTE | 2016-11-12 10:53 | Progress Note-Hospitalist ---
Progress Note HPI/CC on Admission CC: Cellulitis of right lower leg HPI: This is a 66yoWM pt of Dr. Pelletier's that presented to ER with fever and right lower leg redness. Pt was found on the floor and was vomiting yesterday. Pt lives alone at home, and we are unclear if pt will be able to maintain this living situation. 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 Pt is on sliding scale Insulin currently. Patient Interview: Pt states that he feels improved today. Pt's PCP is Dr. Pelletier and he sees him every 6 months. Pt's Electronics Detail Draftsperson is Dr. Yoon in [place], and he has an appointment with him in November. Pt reports that he has a closed Carotid, and is being monitored for that Pt states that he has felt dizzy recently. Pt occasionally uses a walker to ambulate, and often uses a cane. Pt lives at home alone, and uses CPAP regularly. Pts CPAP has O2. Pt does not see wound care. Last summer pt was brought to [facility] in [place] for surgery. Physical exam stable. Pt requests topical cream. Scribed by Felipe Moran under the direct supervision of Dr. Zepeda. Progress Notes/Assess & Plan Date Seen 11/12/16 Admission Dx/Process Assessment: Right lower extremity cellulitis w/abrasion Severe weakness and dizziness with falls Severe debility CAD s/p CABG 02/14 DM insulin dependent HTN HLP TREE on CPAP Morbid obesity Leukocytosis Carotid stenosis moderately severe per patient Diagonsis/Assessment & Plan Patient Interview: Pt states that he feels much improved today. Dr. Zepeda informs pt that bloodwork is improved. Pt states that he is planning to move to in-pt rehab tomorrow. Physical exam stable. Pt reports regular BMs. Pt states that he continues to feel dizzy. No fever, vital signs stable, pleasant, improved Regular rate and rhythm, clear to auscultation bilaterally but diminished breath sounds in the bases Improved right lower extremity edema and erythema Laboratory Tests 11/12/16 06:50 Assessment: Right lower extremity cellulitis w/abrasion Severe weakness and dizziness with falls Severe debility CAD s/p CABG 02/14 DM insulin dependent HTN HLP TREE on CPAP Morbid obesity Leukocytosis Carotid stenosis moderately severe per patient Plan: IV abx of Rocephin but DC Vanc CPAP Monitor closely PT/OT In-pt rehab starting tomorrow Scribed by Felipe Moran under the direct supervision of Dr. Zepeda. GODFREY ZEPEDA DO Nov 12, 2016 10:53
[2016-11-12 11:45] VITALS: BP 164/82
[2016-11-12] MEDS: ENOXAPARIN 40 MG/0.4 ML (LOVENOX) SYR SC SCH (11:58)
--- NOTE | 2016-11-12 13:07 | Occupational Ther Daily Note ---
OT Current Status-Daily Note Subjective Pt alert, sitting EOB eating lunch. Pt agreed to therapy. No c/o pain at this time. Mental Status/Objective Patient Orientation: Person, Place, Time, Situation Functional [place] Measure 0=Not Assessed/NA 4=Minimal Assistance 1=Total Assistance 5=Supervision or Setup 2=Maximal Assistance 6=Modified [place] 3=Moderate Assistance 7=Complete [place] Attachments: IV ADL-Treatment Pt was able to complete eating by self. Required assistance to don socks. Sit to stand with CGA and ambulated to bathroom using FWW with CGA. Pt stood and urinated in toilet, SBA for safety. Then ambulated to sink and washed hands and face with SBA. Pt then ambulated back to room to sit EOB and finish his lunch. Call light/phone in reach. All needs met in room. Eating (FIM): 6 Grooming (FIM): 5 Lower Body Dressing (FIM): 2 Transfers (B, C, W/C) (FIM): 4 OT Short Term Goals Short Term Goals 1=Demonstrate adherence to instructed precautions during ADL tasks. 2=Patient will verbalize/demonstrate understanding of assistive devices/ modifications for ADL. 3=Patient will improve strength/tolerance for activity to enable patient to perform ADL's. OT Skilled Nursing Goals Trouble Locator Test Desk Goals 1=Demonstrate adherence to instructed precautions during ADL tasks. 2=Patient will verbalize/demonstrate understanding of assistive devices/ modifications for ADL. 3=Patient will improve strength/tolerance for activity to enable patient to perform ADL's. OT Education/Plan Discharge Recommendations Plan/Recommendations: Continue POC Treatment Plan/Plan of Care Patient would benefit from OT for education, treatment and training to promote independence in ADL's, mobility, safety and/or upper extremity function for ADL' s. Plan of Care: ADL Retraining, Functional Mobility, UE Funct Exercise/Act Treatment Duration: Nov 25, 2016 Visits Per Week: 5-6 Agreement: Yes Rehab Potential: Fair Time/GCodes Start Time: 12:45 Stop Time: 13:00 Total Time Billed (hr/min): 15 Billed Treatment Time 1 visit-FA 1 (15 min) MARIA A KEENE Nov 12, 2016 13:07
[2016-11-12] MEDS ORDERED: TROUGH ORDER-PHARMACY XX NR (15:00)
--- NOTE | 2016-11-12 15:14 | Physical Therapy Daily Note ---
PT Daily Note-Current Subjective Agrees to PT. Reports, "Im going to the 2nd floor tomorrow, but honestly, I think I'm about as good as I'm going to get." Transfers Functional [place] Measure 0=Not Assessed/NA 4=Minimal Assistance 1=Total Assistance 5=Supervision or Setup 2=Maximal Assistance 6=Modified [place] 3=Moderate Assistance 7=Complete IndependenceIRFPAI Quality Coding Scale 6 Independent with activity with or without an assistive device 5 Patient requires set up or clean up by helper. Patient completes activity by themselves 4 Supervision or touching assist (CGA). [place] provide cues , steadying assist 3 The helper provides less than half the effort to complete the activity 2 The helper provides more than half the effort to complete the activity 1 Dependent. The helper does all the effort to complete an activity 7 Patient refused to complete or attempt activity 9 The patient did not perform the activity before the current illness or injury 88 Not attempted due to Medical conditions or safety concerns Treatments Pt requires no assist to get in or out of bed. Sit to stand with SBA. Pt ambulated x 150 ft with FWW with 1 standing rest break with SBA. B LE ther ex x 15 for AP, QS, HS GS. In bed post treatment with needs met. Assessment Current Status: Good Progress Pt does not require assist with gait or transfers. PT Tableau Architect Goals Tableau Architect Goals PT Assisted Goals Time Frame: Nov 18, 2016 Transfers (B,C,W/C) (FIM): 5 Gait (FIM): 5 Distance: 200' Gait Level of Assist: 5 Gait Assistive Device: FWW PT Plan Problem List Problem List: Activity Tolerance, Functional Strength Treatment/Plan Treatment Plan: Continue Plan of Care Treatment Plan: Education, Functional Activity Farshad, Functional Strength, Gait , Safety, Therapeutic Exercise, Transfers Treatment Duration: Nov 18, 2016 Visits Per Week: 5-6 Minutes/Day (M-F): 15-30 Minutes/Day (Sat/Little): 15-30 Safety Risks/Education Patient Education: Safety Issues Teaching Recipient: Patient Teaching Methods: Discussion Response to Teaching: Return Demonstration Time/GCodes Time In: 1447 Time Out: 1510 Total Billed Treatment Time: 23 Total Billed Treatment visit EX 8 GT 15 MARIA A DUBON PT Nov 12, 2016 15:14
[2016-11-12 16:00] VITALS: BP 145/81
[2016-11-12 19:20] VITALS: BP 159/78
[2016-11-12] MEDS: inSUlin DETERMIR 1 UNIT/0.01 ML (LEVEMIR) CHARGE PER UNIT SQ SCH (21:46)
[2016-11-13 00:29] VITALS: BP 124/67
[2016-11-13 04:25] VITALS: BP 143/74
[2016-11-13] MEDS: PANTOPRAZOLE 20 MG TABLET (PROTONIX) PO SCH (06:04)
[2016-11-13] MEDS: KCL 10 MEQ TAB (MICRO K) PO SCH (06:04)
[2016-11-13] MEDS: VITAMIN E 400 INTLU CAP PO SCH (06:04)
[2016-11-13] MEDS: OMEGA 3 (FISH OIL) 1000 MG CAP PO SCH (06:04)
[2016-11-13] MEDS: inSUlin (REGULAR) HUMAN 1 UNIT/0.01 ML (CHARGE PER UNIT) SC SCH (06:04)
[2016-11-13] MEDS: VENlafaxine XR 75 MG (EFFEXOR XR) CAP PO SCH (06:04)
[2016-11-13] MEDS: inSUlin ASPART (NovoLOG) 1 UNIT/0.01 ML (CHARGE PER UNIT) SC SCH (06:44)
[2016-11-13 07:01] LABS: BASOPHILS % (AUTO) 0 % (0-10); EOSINOPHILS # (AUTO) 0.1 10^3/uL (0.0-0.3); EOSINOPHILS % (AUTO) 2 % (0-10); LYMPHOCYTES # (AUTO) 1.2 X 10^3 (1.0-4.0); LYMPHOCYTES % (AUTO) 24 % (12-44); MEAN CORPUSCULAR HEMOGLOBIN 30 PG (25-34); MEAN CORPUSCULAR HGB CONC 34 G/DL (32-36); MEAN CORPUSCULAR VOLUME 88 FL (80-99); MEAN PLATELET VOLUME 11.1 FL (7.4-10.4); MONOCYTES # (AUTO) 0.4 X 10^3 (0.0-1.0); MONOCYTES % (AUTO) 8 % (0-12); NEUTROPHILS # (AUTO) 3.5 X 10^3 (1.8-7.8); NEUTROPHILS % (AUTO) 67 % (42-75); PLATELET COUNT 134 10^3/uL (130-400); RED BLOOD COUNT 4.06 10^6/uL (4.35-5.85); RED CELL DISTRIBUTION WIDTH 15.3 % (10.0-14.5); WHITE BLOOD COUNT 5.3 10^3/uL (4.3-11.0)
[2016-11-13 07:27] LABS: ALANINE AMINOTRANSFERASE 23 U/L (0-55); ALBUMIN 3.4 G/DL (3.2-4.5); ANION GAP 11 MMOL/L (5-14); ASPARTATE AMINO TRANSFERASE 21 U/L (5-34); BILIRUBIN,TOTAL 0.5 MG/DL (0.1-1.0); BLOOD UREA NITROGEN 15 MG/DL (7-18); BUN/CREATININE RATIO 14; CALCIUM 9.3 MG/DL (8.5-10.1); CARBON DIOXIDE 25 MMOL/L (21-32); CHLORIDE 103 MMOL/L (98-107); GFR ESTIMATED > 60; GLUCOSE 224 MG/DL (70-105); SODIUM 139 MMOL/L (135-145); TOTAL PROTEIN 6.5 G/DL (6.4-8.2)
[2016-11-13 08:16] VITALS: BP 131/72
[2016-11-13] MEDS: CATHETER FLUSH 10 ML SYR IV PRN (08:45)
[2016-11-13] MEDS: MAGNESIUM OXIDE (MAG-OX)400 MG TAB PO SCH (08:46)
[2016-11-13] MEDS: VALSARTAN 80 MG (DIOVAN) TAB PO SCH (08:46)
[2016-11-13] MEDS: CLOPIDOGREL 75 MG (PLAVIX) TABLET PO SCH (08:46)
[2016-11-13] MEDS: ASPIRIN E.C. 81 MG (ECOTRIN) TAB PO SCH (08:46)
[2016-11-13] MEDS: FOLIC ACID 1 MG TAB PO SCH (08:46)
[2016-11-13] MEDS: ALLOPURINOL 100 MG (ZYLOPRIM) TAB PO SCH (08:46)
[2016-11-13] MEDS: CARVEDILOL 12.5 MG (COREG) TABLET PO SCH (08:46)
[2016-11-13] MEDS: CALCIUM CARB + VIT D 600 MG (CALCARB + D) TAB PO SCH (08:46)
[2016-11-13] MEDS: amLODIPine 10 MG (NORVASC) TAB PO SCH (08:46)
[2016-11-13] MEDS: GEMFIBROZIL 600 MG (LOPID) TAB PO SCH (08:46)
[2016-11-13] MEDS: FUROSEMIDE 20 MG (LASIX) TAB PO SCH (08:46)
[2016-11-13] MEDS: ASCORBIC ACID (VIT C) 500 MG TABLET PO SCH (08:46)
[2016-11-13] MEDS: GABAPENTIN 300 MG (NEURONTIN) CAP PO SCH (08:47)
[2016-11-13] MEDS: SILVER SULFADIAZINE 50 GM CREAM TOP SCH (08:48)
[2016-11-13] MEDS ORDERED: CEFD300C3 PO (09:41)
--- NOTE | 2016-11-13 10:05 | Discharge Summary-Hospitalist ---
Diagnosis/Chief Complaint Date of Admission Nov 10, 2016 at 12:25 Date of Discharge Discharge Date: Nov 13, 2016 Admission Diagnosis Assessment: Right lower extremity cellulitis w/abrasion Severe weakness and dizziness with falls Severe debility CAD s/p CABG 02/14 DM insulin dependent HTN HLP TREE on CPAP Morbid obesity Leukocytosis Carotid stenosis moderately severe per patient Discharge Diagnosis Assessment: Right lower extremity cellulitis w/abrasion Severe weakness and dizziness with falls Severe debility requiring inpatient rehabilitation facility stay upon discharge from acute care CAD s/p CABG / DM insulin dependent HTN HLP TREE on CPAP Morbid obesity Leukocytosis Carotid stenosis moderately severe per patient Patient Interview: Pt states that he feels much improved today. Dr. Zepeda informs pt that bloodwork is improved. Pt states that he is planning to move to in-pt rehab tomorrow. Physical exam stable. Pt reports regular BMs. Pt states that he continues to feel dizzy. No fever, vital signs stable, pleasant, improved Regular rate and rhythm, clear to auscultation bilaterally but diminished breath sounds in the bases Improved right lower extremity edema and erythema Laboratory Tests 11/12/16 06:50 Assessment: Right lower extremity cellulitis w/abrasion Severe weakness and dizziness with falls Severe debility CAD s/p CABG 02/14 DM insulin dependent HTN HLP TREE on CPAP Morbid obesity Leukocytosis Carotid stenosis moderately severe per patient Plan: IV abx of Rocephin but DC Vanc CPAP Monitor closely PT/OT In-pt rehab starting tomorrow Scribed by Felipe Moran under the direct supervision of Dr. Zepeda. Reason Hospital Visit/Course CC: Cellulitis of right lower leg HPI: This is a 66yoWM pt of Dr. Pelletier's that presented to ER with fever and right lower leg redness. Pt was found on the floor and was vomiting yesterday. Pt lives alone at home, and we are unclear if pt will be able to maintain this living situation. 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 Pt is on sliding scale Insulin currently. Patient Interview: Pt states that he feels improved today. Pt's PCP is Dr. Pelletier and he sees him every 6 months. Pt's Dietist is Dr. Yoon in [place], and he has an appointment with him in November. Pt reports that he has a closed Carotid, and is being monitored for that Pt states that he has felt dizzy recently. Pt occasionally uses a walker to ambulate, and often uses a cane. Pt lives at home alone, and uses CPAP regularly. Pts CPAP has O2. Pt does not see wound care. Last summer pt was brought to [facility] in [place] for surgery. Physical exam stable. Pt requests topical cream. Scribed by Felipe Moran under the direct supervision of Dr. Zepeda. No from 11/13/16: Patient had an uneventful night and doing well overall. The to good inpatient rehabilitation Right leg appears much improved and hardly any erythema is left Lost IV so I will stop IV antibiotics anyway and switched to by mouth antibiotics No fever, vital signs stable, pleasant, improved Regular rate rhythm, clear to auscultation bilaterally but diminished breath sounds at the bases Wearing sleep apnea machine when I walk in the door Minimal erythema of the right leg major improvement Hospital course: Patient had an uneventful hospital course he was admitted for severe right lower extremity cellulitis placed on Rocephin and vancomycin empirically because there was no drainage but there was an abrasion that I placed Silvadene dressing changes on. He overall did well maintain on all home medications but due to the dizziness and falls that he was having at home he was found to meet criteria for inpatient rehabilitation to strengthen and resolve severe debility prior to returning home and everyone was in agreement with the plan. Discharge Summary Discharge Physical Examination Allergies: Coded Allergies: niacin (Unverified Allergy, Unknown, 06/26/10) rosuvastatin (Verified Allergy, Unknown, 04/20/07) fenofibrate (Unverified Adverse Reaction, Unknown, LIVER PROBLEMS, 01/23/15 ) Vitals & I&Os Vital Signs Date Time Temp Pulse Resp B/P (MAP) Pulse Ox O2 Delivery O2 Flow Rate FiO2 11/13/16 08:16 97.0 67 19 131/72 98 Room Air 11/13/16 08:00 3.00 Hospital Course Labs (last 24 hrs) Laboratory Tests 11/12/16 10:51: Glucometer 286H 11/12/16 17:04: Glucometer 195H 11/12/16 20:48: Glucometer 159H 11/13/16 05:29: Glucometer 232H 11/13/16 06:18: White Blood Count 5.3, Red Blood Count 4.06L, Hemoglobin 12.1L, Hematocrit 36L, Mean Corpuscular Volume 88, Mean Corpuscular Hemoglobin 30, Mean Corpuscular Hemoglobin Concent 34, Red Cell Distribution Width 15.3H, Platelet Count 134, Mean Platelet Volume 11.1H, Neutrophils (%) (Auto) 67, Lymphocytes (%) (Auto) 24 , Monocytes (%) (Auto) 8, Eosinophils (%) (Auto) 2, Basophils (%) (Auto) 0, Neutrophils # (Auto) 3.5, Lymphocytes # (Auto) 1.2, Monocytes # (Auto) 0.4, Eosinophils # (Auto) 0.1, Basophils # (Auto) 0.0, Sodium Level 139, Potassium Level 4.0, Chloride Level 103, Carbon Dioxide Level 25, Anion Gap 11, Blood Urea Nitrogen 15, Creatinine 1.10, Estimat Glomerular Filtration Rate > 60, BUN/ Creatinine Ratio 14, Glucose Level 224H, Calcium Level 9.3, Total Bilirubin 0.5 , Aspartate Amino Transf (AST/SGOT) 21, Alanine Aminotransferase (ALT/SGPT) 23, Alkaline Phosphatase 73, Total Protein 6.5, Albumin 3.4 Microbiology 11/10/16 Blood Culture - Preliminary, Resulted No growth 11/10/16 Influenza Types A,B Antigen ([place]) - Final, Complete Pending Labs Laboratory Tests 11/13/16 05:29: Glucometer 232 11/13/16 06:18: White Blood Count 5.3, Red Blood Count 4.06, Hemoglobin 12.1, Hematocrit 36, Mean Corpuscular Volume 88, Mean Corpuscular Hemoglobin 30, Mean Corpuscular Hemoglobin Concent 34, Red Cell Distribution Width 15.3, Platelet Count 134, Mean Platelet Volume 11.1, Neutrophils (%) (Auto) 67, Lymphocytes (%) (Auto) 24 , Monocytes (%) (Auto) 8, Eosinophils (%) (Auto) 2, Basophils (%) (Auto) 0, Neutrophils # (Auto) 3.5, Lymphocytes # (Auto) 1.2, Monocytes # (Auto) 0.4, Eosinophils # (Auto) 0.1, Basophils # (Auto) 0.0, Sodium Level 139, Potassium Level 4.0, Chloride Level 103, Carbon Dioxide Level 25, Anion Gap 11, Blood Urea Nitrogen 15, Creatinine 1.10, Estimat Glomerular Filtration Rate > 60, BUN/ Creatinine Ratio 14, Glucose Level 224, Calcium Level 9.3, Total Bilirubin 0.5, Aspartate Amino Transf (AST/SGOT) 21, Alanine Aminotransferase (ALT/SGPT) 23, Alkaline Phosphatase 73, Total Protein 6.5, Albumin 3.4 Discharge Home Medications: Active Scripts Active Cefdinir 300 Mg Capsule 300 Mg PO BID 3 Days Reported Levemir Flextouch (Insulin Detemir) 100 Unit/1 Ml Insuln.pen 62 Unit SQ HS Humalog (Insulin Lispro) 100 Unit/1 Ml Vial 35 Units SQ AC Venlafaxine HCl ER (Venlafaxine HCl) 150 Mg Cap.er.24h 150 Mg PO DAILY Klor-Con M10 (Potassium Chloride) 10 Meq Tab.er.prt 10 Meq PO DAILY LAST FILLED 07/03/16 #90 Gabapentin 300 Mg Capsule 600 Mg PO BID TAKES 2 (300 MG) CAPSULES Carvedilol 25 Mg Tablet 25 Mg PO BID Amlodipine Besylate 10 Mg Tablet 10 Mg PO DAILY LAST FILLED 07/14/16 #90 Valsartan 320 Mg Tablet 320 Mg PO DAILY Furosemide 20 Mg Tablet 20 Mg PO DAILY Allopurinol 100 Mg Tablet 100 Mg PO DAILY Gemfibrozil 600 Mg Tablet 600 Mg PO DAILY LAST FILLED 09/29/16 #30 Omeprazole 20 Mg Capsule.dr 20 Mg PO DAILY Clopidogrel (Clopidogrel Bisulfate) 75 Mg Tablet 75 Mg PO BID Folic Acid 1 Mg Tablet 1 Mg PO BID Ondansetron HCl 4 Mg Tablet 4 Mg PO Q4H PRN Vitamin E (Vitamin E Acetate) 400 Unit Capsule 400 Unit PO DAILY Vitamin C 500 Mg (Ascorbic Acid) 500 Mg Tablet 1,000 Mg PO DAILY TAKES 2 (500MG) TABLETS Calcium 600 + Vit D Caplet (Calcium Carbonate/Vitamin D3) 1 Each Tablet 1 Tab PO DAILY Aspirin Ec Tab (Aspirin) 81 Mg Tabec 81 Mg PO DAILY Mag Ox 400 (Magnesium Oxide) 400 Mg Tablet 400 Mg PO DAILY Fish Oil 1,000 Mg Softgel ([place]-3/Dha/Epa/Fish Oil) 1,000 Mg Capsule 2,000 Mg PO BID Instructions to patient/family Please see electonic discharge instructions given to patient. Clinical Quality Measures DVT/VTE Risk/Contraindication: Risk Factor Score Per Nursin RFS Level Per Nursing on Admit: 4+=Very High GODFREY ZEPEDA DO Nov 13, 2016 10:05
[2016-11-13 10:30] VITALS: BP 131/72
== END 2016-11-13 10:30 | DRG 603 ==
LOC: EDUNIT# 09:23 → ER 09:24 → 4TH 12:25
PROVIDERS: ADMIT Internal Medicine; ATTEND Internal Medicine
DX: L03.115 Cellulitis of right lower limb (principal); S80.211A Abrasion, right knee, initial encounter; R41.0 Disorientation, unspecified; R11.10 Vomiting, unspecified; Z68.42 Body mass index [BMI] 45.0-49.9, adult; J44.9 Chronic obstructive pulmonary disease, unspecified; G47.33 Obstructive sleep apnea (adult) (pediatric); I25.2 Old myocardial infarction; I10 Essential (primary) hypertension; E11.9 Type 2 diabetes mellitus without complications; E66.9 Obesity, unspecified; I65.23 Occlusion and stenosis of bilateral carotid arteries; M19.91 Primary osteoarthritis, unspecified site; M54.9 Dorsalgia, unspecified; Z79.4 Long term (current) use of insulin; Z87.891 Personal history of nicotine dependence; Z95.1 Presence of aortocoronary bypass graft; Z95.5 Presence of coronary angioplasty implant and graft; W19.XXXA Unspecified fall, initial encounter; Y92.019 Unspecified place in single-family (private) house as the place of occurrence of the external cause; Y99.8 Other external cause status
CPT/HCPCS: 36415; 70450; 71010; 73610; 80053; 80202; 81000; 82962; 83605; 84484; 85007; 85025; 85027; 85610; 85730; 87040; 87804; 93005; 94760; 96374; 96375

== ENCOUNTER 2016-11-13 09:54 | Inpatient (IN) | payer MEDICARE ==
[~2016-11-13] VITALS: Ht 180.3 cm; Wt 158.8 kg
[~2016-11-13 09:54] MED LIST changes: +ALLO100T PO; +AMLO10TA2 PO; +CEFD300C3 PO; +CLOP75TA28 PO; +FOLI1TAB24 PO; +FURO20TA4 PO; +INSU100I29 SQ; +OMEP20CA12 PO; +ONDA4TAB10 PO; +POTA10TA14 PO; +VALS320T14 PO; +VENL150C98 PO
[2016-11-13 10:55] VITALS: BP 151/81
[2016-11-13] MEDS ORDERED: ONDANSETRON 4 MG (ZOFRAN) ORAL DISSOLVE TAB PO PRN (11:15)
--- NOTE | 2016-11-13 11:52 | Occupational Therapy Eval ---
OT Evaluation-General/PLF Medical Diagnosis Admission Date Nov 13, 2016 at 10:31 Medical Diagnosis: cellulitis right LE Onset Date: Nov 10, 2016 Therapy Diagnosis Therapy Diagnosis: decreased self care Height/Weight Height (Feet): 5 Height (Inches): 11.00 Weight (Pounds): 350 Weight (Ounces): 0.0 Weight Bear Status Location Restriction: LE Bilateral Medical History Pertinent Medical History: Arthritis, CABG, CAD, COPD, DM, HTN, [place], Neuropathy Additional Medical History 3 pinched nerves in neck, carotid stenosis Reviewed History: Yes Social History Home: Single Level Current Living Status: Alone Entry Into Home: Stairs With Railing Steps Into Home: 3 ADL-Prior Level of Function ADL PLOF Comments Pt reports being independent with mobility and basic self care. Uses a cane occasionally. Pt has assist with housekeeping. DME/Equipment: Grab Bars, Tub/Shower Drive Self: Yes OT Current Status Subjective Pt agreeable to therapy this am. No c/o pain. Mental Status/Objective Patient Orientation: Person, Place, Time Current Glasses/Contacts: Yes Hearing Aids: No Hand Dominance: Right Upper Extremity ROM Grossly WFL Upper Extremity Coordination Intact Upper Extremity Strength Grossly 4/5 ADL-Treatment ADL-Current Pt participated in UE assessment while seated in chair. Sit to stand with supervision. Gait to restroom with FWW. Pt stood at toilet to urinate and is able to manage clothing with SBA. Pt requests shower today. Transfer to walk in shower with CGA and cues for safety. Pt used shower bench and hand held shower during bathing. Pt able to wash bilateral UE, chest, abdomen, bilateral upper legs, and markel area. Assist to wash bilateral lower legs. Don pullover shirt with set up. Pt requires minimal assistance to start pants over feet. Stood with CGA for pant hike. Pt demonstrates ability to doff socks without assistance , but requires assist to don bilateral socks. Stood at sink for grooming tasks. Pt combed hair and completed oral care with SBA while standing at sink. Pt demonstrated ability to transfer to toilet with SBA using grab bar for safety. Pt fatigues with activity and requires occasional rest breaks during activity. Pt sitting in chair with needs met after session, PT present. Functional [place] Measure 0=Not Assessed/NA 4=Minimal Assistance 1=Total Assistance 5=Supervision or Setup 2=Maximal Assistance 6=Modified [place] 3=Moderate Assistance 7=Complete IndependenceIRFPAI Quality Coding Scale 6 Independent with activity with or without an assistive device 5 Patient requires set up or clean up by helper. Patient completes activity by themselves 4 Supervision or touching assist (CGA). [place] provide cues , steadying assist 3 The helper provides less than half the effort to complete the activity 2 The helper provides more than half the effort to complete the activity 1 Dependent. The helper does all the effort to complete an activity 7 Patient refused to complete or attempt activity 9 The patient did not perform the activity before the current illness or injury 88 Not attempted due to Medical conditions or safety concerns Eating (FIM): 7 (Pt reports feeding self, managing containers, and cutting food without assistance) Eating (QC): 6 Grooming (FIM): 5 Oral Hygiene (QC): 5 Bathing (FIM): 4 Shower/Bathe Self (QC): 3 Upper Body Dressing (FIM): 5 Upper Body Dressing (QC): 5 (set up) Lower Body Dressing (FIM): 3 Lower Body Dressing (QC): 3 On/Off Footwear (QC): 3 Toilet/Commode Transfer (FIM): 5 Toilet Transfer (QC): 4 Shower Transfer (FIM): 4 OT Short Term Goals Short Term Goals Time Frame: Nov 20, 2016 Bathing(FIM): 5 Lower Body Dressing(FIM): 5 Toileting(FIM): 5 Shower Transfer(FIM): 5 Additional Short Term Goals: 1-Demonstrate ADL Tasks, 2-Verbalize Understanding , 3-ImproveStrength/Farshad 1=Demonstrate adherence to instructed precautions during ADL tasks. 2=Patient will verbalize/demonstrate understanding of assistive devices/ modifications for ADL. 3=Patient will improve strength/tolerance for activity to enable patient to perform ADL's. OT Senior Net Web Developer Goals Skilled Nursing Goals Time Frame: December 04, 2016 Eating (FIM): 7 Eating (QC): 6 Groomin Oral Hygiene (QC): 6 Bathing(FIM): 6 Shower/Bathe Self (QC): 6 Upper Body Dressing(FIM): 6 Upper Body Dressing (QC): 6 Lower Body Dressing(FIM): 6 Lower Body Dressing (QC): 6 On/Off Footwear (QC): 6 Toileting(FIM): 6 Toileting Hygiene (QC): 6 Toilet/Commode Transfer(FIM): 6 Toilet/Commode Transfer (QC): 6 Shower Transfer(FIM): 6 Additional Goals: 1-Demonstrate ADL Tasks, 2-Verbalize Understanding, 3- ImproveStrength/Farshad 1=Demonstrate adherence to instructed precautions during ADL tasks. 2=Patient will verbalize/demonstrate understanding of assistive devices/ modifications for ADL. 3=Patient will improve strength/tolerance for activity to enable patient to perform ADL's. OT Education/Plan Problem List/Assessment Assessment: Decreased Activ Tolerance, Decreased UE Strength, Dependent Transfers, Impaired Self-Care Skills Pt to benefit from skilled OT intervention for ADL training, transfers, strengthening, and home safety education to maximize level of function and allow safe return home. Discharge Recommendations Plan/Recommendations: Continue POC Treatment Plan/Plan of Care Treatment,Training & Education: Yes Patient would benefit from OT for education, treatment and training to promote independence in ADL's, mobility, safety and/or upper extremity function for ADL' s. Plan of Care: ADL Retraining, Functional Mobility, Group Exercise/Act as Ind, UE Funct Exercise/Act Treatment Duration: December 04, 2016 # of days/week 5-6 Visits Per Week: 10-12 Minutes/Day (M-F): 60-90 Minutes/Day (Sat/Little): PRN Agreement: Yes Rehab Potential: Fair Time/GCodes Start Time: 10:20 Stop Time: 11:15 Total Time Billed (hr/min): 55 Billed Treatment Time 1 visit, EVL(15minutes), ADLx3(40minutes) LEONA DYSON OT Nov 13, 2016 11:52
--- NOTE | 2016-11-13 12:01 | PM&R Post Admission Assessment ---
Post Admission Physician Asses The preadmission screen agrees with the post admission assessment that the patient is a good candidate for inpatient rehabilitation. The patient will have a comprehensive program of inpatient rehabilitation with a goal of maximizing level of functional dependence prior to discharge home with [facility]. The patient will have PT/OT ninety minutes per day, each discipline , five days a week for gait strengthening, conditioning, balance, ADLs, any patient/family/caregiver training necessary. Speech therapy to do cognitive assessment and treat as indicted. Rehabilitation nursing to assist with bowel, bladder, skin, wound care, medication administration, pain management. Activities Manager to assist with discharge planning, community reentry. SCD's for DVT prophylaxis. He appears to be well motivated to participate in three hours of therapy a day. He should be able to tolerate three hours of therapy a day from a medical standpoint. He should benefit from the three hours of therapy a day. He has a reasonable discharge plan, reasonable discharge rehabilitation goals and a supportive family. He has various comorbidities that need to be closely monitored with medications and treatments adjusted on a daily basis as needed. These include: Insulin Dependent DM cellulitis HTN Barriers to discharge for this patient who had been independent prior to this and for him to be modified independent to supervision for ADLs and mobility skills prior to discharge home with [family], so as to lessen the burden of the caregivers. Risks for this patient include: 1. Fall 2. Fracture 3. DVT 4. Pulmonary embolism 5. Worsening cellulitis 6. Skin breakdown 7. Contractures 8. Poorly controlled pain 9. Urinary retention 10. UTI 11. Respiratory infection 12. Aspiration 13. Poorly controlled HTn 14. Poorly controlled DM Estimated Length of Stay: 1- 2 weeks Prognosis: Rehab prognosis appears good for goal of discharge home with [facility] and family as needed modified independent to supervision for ADLs and mobility skills. ARMEN TENORIO MD Nov 13, 2016 12:01
--- NOTE | 2016-11-13 12:44 | Physical Therapy Evaluation ---
PT Evaluation-General Medical Diagnosis Admission Date Nov 13, 2016 at 10:31 Medical Diagnosis: cellulitis LLE Onset Date: Nov 10, 2016 Therapy Diagnosis Therapy Diagnosis: impaired mobility, strength, endurance Height/Weight Height (Feet): 5 Height (Inches): 11.00 Weight (Pounds): 350 Weight (Ounces): 0.0 Weight Bear Status Location Restriction: LE Bilateral Referral Physician: Eduardo Reason for Referral: Evaluation/Treatment Medical History Pertinent Medical History: Arthritis, CABG, CAD, COPD, DM, HTN, [place], Neuropathy Additional Medical History former smoker, uses CPAP, vertigo, left neck pinched nerves, DDD, chronic back pain Current History went to ER with fever and right lower leg redness and was found on the floor vomiting, patient has cellulitis in right lower leg Reviewed History: Yes Social History Home: Single Level Current Living Status: Alone Entry Into Home: Stairs With Railing PT Steps Into Home: 3 Prior/Core FIM Prior Level of Function Functional [place] Measure 0=Not Assessed/NA 4=Minimal Assistance 1=Total Assistance 5=Supervision or Setup 2=Maximal Assistance 6=Modified [place] 3=Moderate Assistance 7=Complete [place] Bed Mobility: 6 Transfers (B,C,W/C) (FIM): 6 Gait: 6 Patient states he would use a single point cane on occasion. PT Evaluation-Current Subjective Patient in recliner pre tx, agrees to PT, patient just got through with OT, he states he has no pain other than a headache which he says he pretty much always has. Pt/Family Goals to be independent at home Objective Patient Orientation: Normal For Age ROM/Strength ROM Lower Extremities WNL Strenght Lower Extremities 4/5 to 4-/5 gross strength bilateral lower extremities Integumentary/Posture Bowel Incontinence: No Bladder Incontinence: No Neuromuscular (Tone, Coordination, Reflexes) decreased coordination bilateral lower extremities Sensory Vision: Functional Hearing: Functional Hand Dominance: Right Sensation Right Lower Extremit: Impaired Sensation Left Lower Extremity: Impaired Transfers Functional [place] Measure 0=Not Assessed/NA 4=Minimal Assistance 1=Total Assistance 5=Supervision or Setup 2=Maximal Assistance 6=Modified [place] 3=Moderate Assistance 7=Complete IndependenceIRFPAI Quality Coding Scale 6 Independent with activity with or without an assistive device 5 Patient requires set up or clean up by helper. Patient completes activity by themselves 4 Supervision or touching assist (CGA). [place] provide cues , steadying assist 3 The helper provides less than half the effort to complete the activity 2 The helper provides more than half the effort to complete the activity 1 Dependent. The helper does all the effort to complete an activity 7 Patient refused to complete or attempt activity 9 The patient did not perform the activity before the current illness or injury 88 Not attempted due to Medical conditions or safety concerns Transfers (B, C, W/C) (FIM): 4 Scootin Rollin Roll Left to Right (QC): 4 Supine to/from Sit: 5 Sit to/from Stand: 4 Sit to Lying (QC): 4 Lying to Sitting/Side of Bed(Q: 4 Sit to Stand (QC): 4 Car Transfer (QC): 88 Patient performs bed mobility with SBA and transfers with CGA, cues for safety and hand placement Gait Does the Patient Walk?: Yes Mode of Locomotion: Walk Anticipated Mode of Locomotion: Walk Gait (FIM): 4 Walk 10 feet (QC): 4 Walk 50 ft with 2 Turns(QC): 4 Walk 150 ft (QC): 4 Walking 10ft/uneven surface-QC: 4 Distance: 150'x2 Gait Level of Assist: 4 Gait Persons Needed: 1 Gait Assistive Device: FWW Comments/Gait Description Patient can ambulate 150' with a rolling walker with CGA (including 50' with at least 2 turns of 90 degrees and 10' over an uneven surface). Patient ambulates with decreased heel strike, minimal uncoordinated stepping Wheelchair Training Does the Pt Use a Wheelchair?: No Stairs Stairs (FIM): 1 #of Steps: 1 Level of Assist: 4 1 Step (curb) (QC): 4 4 Steps (QC): 88 Assistive Device: Walker 12 Steps (QC): 88 Patient can go up and down 1 step using a rolling walker with CGA. Balance Sitting Static: Normal Sitting Dynamic: Normal Standing Static: Good Standing Dynamic: Good Picking up an Object (QC): 88 Treatment NuStep 12 min level 5 Assessment/Needs Patient has impaired general mobility, strength, and endurance, recommend continued PT to work on these areas to improve independence at home and decrease his risk of falling. Rehab Potential: Fair PT Short Term Goals Short Term Goals Time Frame: Nov 20, 2016 Transfers (B,C,W/C) (FIM): 5 Gait (FIM): 5 Gait Distance Comment: 200' Gait Level of Assist: 5 Gait Assistive Device: FWW PT Residential Goals Residential Goals PT Machine Welder Goals Time Frame: December 04, 2016 Transfers (B,C,W/C) (FIM): 6 Sit to Lying (QC): 6 Lying-Sitting on Side/Bed(QC): 6 Sit to Stand (QC): 6 Rollin Roll Left to Right (QC): 6 Car Transfer (QC): 4 Gait (FIM): 6 Distance: 300' Walk 10 feet (QC): 6 Walk 10ft-Uneven Surface(QC): 6 Walk 50ft with 2 Turns (QC): 6 Walk 150 ft (QC): 6 Gait Level of Assist: 6 Gait Assistive Device: FWW Stairs (FIM): 2 # of Steps: 4 1 Step (curb) (QC): 4 4 Steps (QC): 4 12 Steps (QC): 88 Stairs Level Of Assist: 5 Picking up an Object (QC): 88 PT Plan Problem List Problem List: Activity Tolerance, Functional Strength, Safety, Balance, Gait, Transfer, Bed Mobility Treatment/Plan Treatment Plan: Continue Plan of Care Treatment Plan: Bed Mobility, Education, Functional Activity Farshad, Functional Strength, Group Therapy, Gait, Safety, Therapeutic Exercise, Transfers Treatment Duration: December 04, 2016 # of days/week 5-6 Visits Per Week: 10-11 Minutes/Day (M-F): 60-90 Minutes/Day (Sat/Little): 15-30 Pt/Family Agrees w/Plan: Yes Safety Risks/Education Patient Education: Gait Training, Transfer Techniques, Steps, Correct Positioning, Safety Issues Teaching Recipient: Patient Teaching Methods: Demonstration, Discussion Response to Teaching: Reinforcement Needed Discharge Recommendations Plan Patient will perform bed mobility and transfer training, balance and endurance training, functional strengthening, stair training, gait training, education, to improve functional mobility and independence at home. Therapy D/C Recommendations: Home w/ Family Support Time/GCodes Time In: 1115 Time Out: 1200 Total Billed Treatment Time: 45 Total Billed Treatment 1 visit EVL 15 min EX 12 min GT 18 min BETTY STRONG PT Nov 13, 2016 12:44
--- NOTE | 2016-11-13 13:36 | ST Cognitive Linguistic Eval ---
Speech Evaluation-General Medical Diagnosis cellulitis right LE Onset Date: Nov 10, 2016 Therapy Diagnosis Therapy Diagnosis: Cognitive Linguistic Skills WNL Referral Referring Physician: Dr. Edgar Clark Reason for Referral: Evaluation/Treatment Cognitive Screen Medical History Pertinent Medical History: Arthritis, CABG, CAD, COPD, DM, HTN, CT, Neuropathy Reviewed History: Yes Social History Current Living Status: Alone Speech PLF-Current Status Prior Level of Function The patient denied challenges with speech, language, or cognition prior to admission. Subjective The patient was recently admitted to [facility] unit with a diagnosis of cellulitis. The patient greeted the clinician appropriately and agreed to participate in the cognitive screen on this date. Language Eval: Auditory Comprehends Simple Yes/No Ques: Functional Indent/Objects Multiple Yoon: Functional Ident/Pics in Multiple Yoon: Functional Follows 1-Step Commands: Functional Follows Complex Directions: Functional Follows General Conversations: Functional Language Eval: Verbal Language Completes Spontaneous Greeting: Functional Produces Auto, Serial Info: Functional Imitates Simple Words/Phrases: Functional Word Finding: Functional Requests Basic Needs: Functional States Basic Personal Info: Functional Expresses Complex Ideas: Functional Cognitive Patient Orientation The patient was oriented to month, day, date, location, and rationale for rehabilitation (independently). Objective Cognitive Domain Attention: WNL Memory: WNL Problem Solving: Functional Executive Functions: WNL Objective Impression The patient demonstrated cognitive linguistic skills appropriate for completion of ADL's. Communication/Social Cognition Comprehension: 6 Expression: 6 Social Interaction: 6 Problem Solvin Memory: 6 Speech Patient Assess Expression of Ideas/Wants: Expression (4) Understanding [place] Content: Understands (4) Brief Interview-Mental Status: Yes Repetition of Three Words: Three (3) Temporal Orientation: Year: Correct (3) Temporal Orientation: Month: Accurate within 5 days(2) Temporal Orientation: Day: Correct (1) Recall : Wear to say "Sock": Yes, no cue required (2) Recall : Color: Yes, no cue required (2) Recall : Bed: Yes, no cue required (2) Speech-Plan Treatment Plan Speech Therapy Treatment Plan: Discontinue ST Evaluation, only. Rehab Potential: Fair Safety Risks/Education Teaching Recipient: Patient Teaching Methods: Discussion Response to Teaching: Verbalize Understanding Education Topics Provided: Plan of Care, Results, Recommendations Time Speech Therapy Time In: 12:00 Speech Therapy Time Out: 12:15 Total Billed Time: 15 Billed Treatment Time 1, WESLYNDCAMDEN WILLSON Nov 13, 2016 13:36
--- NOTE | 2016-11-13 15:03 | Therapy Group Daily Note ---
Therapy Daily Group Note Other/Notes Pt ambulated to group with CGA using FWW. OT/PT group consisted of introductions (name, place, family history) then socializing within groups while completing fine motor tasks that worked on problem solving, recall/ memory and UE gross motor. Pt was able to tolerate all activities and contributed to conversations appropriately. After therapy, pt in room lying in bed. Call light/phone in reach. All needs met in room. Start Time: 13:00 Stop Time: 14:20 Total Billed Treatment Time: 80 Total Billed Treatment 1-GRP MARIA A KEENE Nov 13, 2016 15:03
[2016-11-13] MEDS: FOLIC ACID 1 MG TAB PO SCH (16:57)
[2016-11-13] MEDS: OMEGA 3 (FISH OIL) 1000 MG CAP PO SCH (16:57)
[2016-11-13] MEDS: inSUlin ASPART (NovoLOG) 1 UNIT/0.01 ML (CHARGE PER UNIT) SC SCH (16:58)
[2016-11-13] MEDS: CARVEDILOL 12.5 MG (COREG) TABLET PO SCH (20:08)
[2016-11-13] MEDS: GABAPENTIN 300 MG (NEURONTIN) CAP PO SCH (20:08)
[2016-11-13] MEDS: CLOPIDOGREL 75 MG (PLAVIX) TABLET PO SCH (20:08)
[2016-11-13] MEDS: CEFDINIR 300 MG (OMNICEF) CAP PO SCH (20:08)
[2016-11-13] MEDS: SILVER SULFADIAZINE 50 GM CREAM TOP SCH (20:10)
[2016-11-13] MEDS: inSUlin DETERMIR 1 UNIT/0.01 ML (LEVEMIR) CHARGE PER UNIT SQ SCH (21:58)
[2016-11-14 05:47] VITALS: BP 154/88
[2016-11-14] MEDS: FOLIC ACID 1 MG TAB PO SCH ×2 (06:28→17:17)
[2016-11-14] MEDS: ASCORBIC ACID (VIT C) 500 MG TABLET PO SCH (06:28)
[2016-11-14] MEDS: CALCIUM CARB + VIT D 600 MG (CALCARB + D) TAB PO SCH (06:28)
[2016-11-14] MEDS: KCL 10 MEQ TAB (MICRO K) PO SCH (06:28)
[2016-11-14] MEDS: PANTOPRAZOLE 20 MG TABLET (PROTONIX) PO SCH (06:28)
[2016-11-14] MEDS: VENlafaxine XR 75 MG (EFFEXOR XR) CAP PO SCH (06:28)
[2016-11-14] MEDS: MAGNESIUM OXIDE (MAG-OX)400 MG TAB PO SCH (06:28)
[2016-11-14] MEDS: VITAMIN E 400 INTLU CAP PO SCH (06:28)
[2016-11-14] MEDS: OMEGA 3 (FISH OIL) 1000 MG CAP PO SCH ×2 (06:28→17:17)
[2016-11-14] MEDS: inSUlin ASPART (NovoLOG) 1 UNIT/0.01 ML (CHARGE PER UNIT) SC SCH ×3 (08:05→18:53)
[2016-11-14] MEDS: CARVEDILOL 12.5 MG (COREG) TABLET PO SCH ×2 (08:05→20:20)
[2016-11-14] MEDS: amLODIPine 10 MG (NORVASC) TAB PO SCH (08:05)
[2016-11-14] MEDS: CEFDINIR 300 MG (OMNICEF) CAP PO SCH ×2 (08:05→20:19)
[2016-11-14] MEDS: GABAPENTIN 300 MG (NEURONTIN) CAP PO SCH ×2 (08:05→20:20)
[2016-11-14] MEDS: FUROSEMIDE 20 MG (LASIX) TAB PO SCH (08:05)
[2016-11-14] MEDS: GEMFIBROZIL 600 MG (LOPID) TAB PO SCH (08:05)
[2016-11-14] MEDS: ALLOPURINOL 100 MG (ZYLOPRIM) TAB PO SCH (08:05)
[2016-11-14] MEDS: ASPIRIN E.C. 81 MG (ECOTRIN) TAB PO SCH (08:06)
[2016-11-14] MEDS: CLOPIDOGREL 75 MG (PLAVIX) TABLET PO SCH ×2 (08:06→20:19)
[2016-11-14] MEDS: VALSARTAN 80 MG (DIOVAN) TAB PO SCH (08:06)
[2016-11-14] MEDS: SILVER SULFADIAZINE 50 GM CREAM TOP SCH ×2 (08:07→20:21)
[2016-11-14] MEDS: ACETAMINOPHEN 500 MG TAB (TYLENOL) PO PRN ×2 (08:13→17:21)
--- NOTE | 2016-11-14 10:56 | Physical Therapy Daily Note ---
PT Daily Note-Current Subjective Agrees to PT. Reports he plans to nap after therapy. Transfers Functional [place] Measure 0=Not Assessed/NA 4=Minimal Assistance 1=Total Assistance 5=Supervision or Setup 2=Maximal Assistance 6=Modified [place] 3=Moderate Assistance 7=Complete IndependenceIRFPAI Quality Coding Scale 6 Independent with activity with or without an assistive device 5 Patient requires set up or clean up by helper. Patient completes activity by themselves 4 Supervision or touching assist (CGA). [place] provide cues , steadying assist 3 The helper provides less than half the effort to complete the activity 2 The helper provides more than half the effort to complete the activity 1 Dependent. The helper does all the effort to complete an activity 7 Patient refused to complete or attempt activity 9 The patient did not perform the activity before the current illness or injury 88 Not attempted due to Medical conditions or safety concerns Treatments Sit to from stand with SBA. Toileted with SBA. Gait x 150 ft and 400 ft with FWW with SBA--no assist required. 1 standing rest break during 400 ft gait. Nu step x 10 minutes to promote hip and knee ROM and well as LE strength for increased functional activity tolerance. Pt in bed post treatment with needs met. Assessment Current Status: Good Progress PT Short Term Goals Short Term Goals Time Frame: Nov 20, 2016 Transfers (B,C,W/C) (FIM): 5 Gait (FIM): 5 Gait Distance Comment: 200' Gait Level of Assist: 5 Gait Assistive Device: FWW PT Clerk Typist Goals Clerk Typist Goals PT Long-Term Goals Time Frame: December 04, 2016 Transfers (B,C,W/C) (FIM): 6 Sit to Lying (QC): 6 Lying-Sitting on Side/Bed(QC): 6 Sit to Stand (QC): 6 Rollin Roll Left to Right (QC): 6 Car Transfer (QC): 4 Gait (FIM): 6 Distance: 300' Walk 10 feet (QC): 6 Walk 10ft-Uneven Surface(QC): 6 Walk 50ft with 2 Turns (QC): 6 Walk 150 ft (QC): 6 Gait Level of Assist: 6 Gait Assistive Device: FWW Stairs (FIM): 2 # of Steps: 4 1 Step (curb) (QC): 4 4 Steps (QC): 4 12 Steps (QC): 88 Stairs Level Of Assist: 5 Picking up an Object (QC): 88 PT Plan Problem List Problem List: Activity Tolerance, Functional Strength Treatment/Plan Treatment Plan: Continue Plan of Care Treatment Plan: Bed Mobility, Education, Functional Activity Farshad, Functional Strength, Group Therapy, Gait, Safety, Therapeutic Exercise, Transfers Treatment Duration: December 04, 2016 Visits Per Week: 10-11 Minutes/Day (M-F): 60-90 Minutes/Day (Sat/Little): 15-30 Safety Risks/Education Patient Education: Gait Training Teaching Recipient: Patient Teaching Methods: Discussion Response to Teaching: Reinforcement Needed Time/GCodes Time In: 935 Time Out: 1003 Total Billed Treatment Time: 28 Total Billed Treatment visit GT 18 EX 10 MARIA A DUBON PT Nov 14, 2016 10:56
[2016-11-14] MEDS: ENOXAPARIN 40 MG/0.4 ML (LOVENOX) SYR SC SCH (11:47)
[2016-11-14 17:48] VITALS: BP 161/78
[2016-11-14] MEDS: inSUlin DETERMIR 1 UNIT/0.01 ML (LEVEMIR) CHARGE PER UNIT SQ SCH (20:20)
[2016-11-15 05:12] VITALS: BP 158/78
[2016-11-15] MEDS: OMEGA 3 (FISH OIL) 1000 MG CAP PO SCH ×2 (06:17→17:31)
[2016-11-15] MEDS: MAGNESIUM OXIDE (MAG-OX)400 MG TAB PO SCH (06:17)
[2016-11-15] MEDS: FOLIC ACID 1 MG TAB PO SCH ×2 (06:17→17:31)
[2016-11-15] MEDS: KCL 10 MEQ TAB (MICRO K) PO SCH (06:17)
[2016-11-15] MEDS: CALCIUM CARB + VIT D 600 MG (CALCARB + D) TAB PO SCH (06:17)
[2016-11-15] MEDS: VENlafaxine XR 75 MG (EFFEXOR XR) CAP PO SCH (06:17)
[2016-11-15] MEDS: VITAMIN E 400 INTLU CAP PO SCH (06:17)
[2016-11-15] MEDS: PANTOPRAZOLE 20 MG TABLET (PROTONIX) PO SCH (06:17)
[2016-11-15] MEDS: ASCORBIC ACID (VIT C) 500 MG TABLET PO SCH (06:17)
[2016-11-15] MEDS: inSUlin ASPART (NovoLOG) 1 UNIT/0.01 ML (CHARGE PER UNIT) SC SCH ×3 (06:39→17:59)
[2016-11-15] MEDS: CLOPIDOGREL 75 MG (PLAVIX) TABLET PO SCH ×2 (08:09→21:17)
[2016-11-15] MEDS: FUROSEMIDE 20 MG (LASIX) TAB PO SCH (08:09)
[2016-11-15] MEDS: amLODIPine 10 MG (NORVASC) TAB PO SCH (08:09)
[2016-11-15] MEDS: VALSARTAN 80 MG (DIOVAN) TAB PO SCH (08:09)
[2016-11-15] MEDS: GEMFIBROZIL 600 MG (LOPID) TAB PO SCH (08:10)
[2016-11-15] MEDS: ALLOPURINOL 100 MG (ZYLOPRIM) TAB PO SCH (08:10)
[2016-11-15] MEDS: CEFDINIR 300 MG (OMNICEF) CAP PO SCH ×2 (08:10→21:17)
[2016-11-15] MEDS: ASPIRIN E.C. 81 MG (ECOTRIN) TAB PO SCH (08:10)
[2016-11-15] MEDS: GABAPENTIN 300 MG (NEURONTIN) CAP PO SCH ×2 (08:10→21:17)
[2016-11-15] MEDS: CARVEDILOL 12.5 MG (COREG) TABLET PO SCH ×2 (08:10→21:17)
[2016-11-15] MEDS: SILVER SULFADIAZINE 50 GM CREAM TOP SCH ×2 (08:12→21:18)
[2016-11-15] MEDS: ENOXAPARIN 40 MG/0.4 ML (LOVENOX) SYR SC SCH (11:39)
[2016-11-15 17:53] VITALS: BP 164/85
[2016-11-15] MEDS: inSUlin DETERMIR 1 UNIT/0.01 ML (LEVEMIR) CHARGE PER UNIT SQ SCH (21:18)
[2016-11-16 05:05] VITALS: BP 143/77
[2016-11-16] MEDS: MAGNESIUM OXIDE (MAG-OX)400 MG TAB PO SCH (07:11)
[2016-11-16] MEDS: VITAMIN E 400 INTLU CAP PO SCH (07:11)
[2016-11-16] MEDS: FOLIC ACID 1 MG TAB PO SCH ×2 (07:11→17:47)
[2016-11-16] MEDS: PANTOPRAZOLE 20 MG TABLET (PROTONIX) PO SCH (07:11)
[2016-11-16] MEDS: CALCIUM CARB + VIT D 600 MG (CALCARB + D) TAB PO SCH (07:11)
[2016-11-16] MEDS: OMEGA 3 (FISH OIL) 1000 MG CAP PO SCH ×2 (07:11→17:47)
[2016-11-16] MEDS: KCL 10 MEQ TAB (MICRO K) PO SCH (07:11)
[2016-11-16] MEDS: VENlafaxine XR 75 MG (EFFEXOR XR) CAP PO SCH (07:11)
[2016-11-16] MEDS: ASCORBIC ACID (VIT C) 500 MG TABLET PO SCH (07:11)
[2016-11-16] MEDS: inSUlin ASPART (NovoLOG) 1 UNIT/0.01 ML (CHARGE PER UNIT) SC SCH ×3 (07:36→17:47)
[2016-11-16] MEDS: ALLOPURINOL 100 MG (ZYLOPRIM) TAB PO SCH (08:34)
[2016-11-16] MEDS: FUROSEMIDE 20 MG (LASIX) TAB PO SCH (08:34)
[2016-11-16] MEDS: amLODIPine 10 MG (NORVASC) TAB PO SCH (08:34)
[2016-11-16] MEDS: CARVEDILOL 12.5 MG (COREG) TABLET PO SCH ×2 (08:34→21:28)
[2016-11-16] MEDS: GABAPENTIN 300 MG (NEURONTIN) CAP PO SCH ×2 (08:34→21:28)
[2016-11-16] MEDS: VALSARTAN 80 MG (DIOVAN) TAB PO SCH (08:34)
[2016-11-16] MEDS: GEMFIBROZIL 600 MG (LOPID) TAB PO SCH (08:35)
[2016-11-16] MEDS: CLOPIDOGREL 75 MG (PLAVIX) TABLET PO SCH ×2 (08:35→21:28)
[2016-11-16] MEDS: ASPIRIN E.C. 81 MG (ECOTRIN) TAB PO SCH (08:35)
[2016-11-16] MEDS: CEFDINIR 300 MG (OMNICEF) CAP PO SCH (08:38)
[2016-11-16] MEDS: SILVER SULFADIAZINE 50 GM CREAM TOP SCH ×2 (08:39→21:29)
--- NOTE | 2016-11-16 09:36 | Physical Therapy Daily Note ---
PT Daily Note-Current Subjective Agrees to PT. Reports he is ready to go home. Pain Numeric Pain Scale: 0-No Pain Location: No Pain Reported Mental Status Patient Orientation: Person, Place, Time, Situation Transfers Functional [place] Measure 0=Not Assessed/NA 4=Minimal Assistance 1=Total Assistance 5=Supervision or Setup 2=Maximal Assistance 6=Modified [place] 3=Moderate Assistance 7=Complete IndependenceIRFPAI Quality Coding Scale 6 Independent with activity with or without an assistive device 5 Patient requires set up or clean up by helper. Patient completes activity by themselves 4 Supervision or touching assist (CGA). [place] provide cues , steadying assist 3 The helper provides less than half the effort to complete the activity 2 The helper provides more than half the effort to complete the activity 1 Dependent. The helper does all the effort to complete an activity 7 Patient refused to complete or attempt activity 9 The patient did not perform the activity before the current illness or injury 88 Not attempted due to Medical conditions or safety concerns Transfers (B, C, W/C) (FIM): 6 Scootin Rollin Roll Left to Right (QC): 6 Supine to/from Sit: 6 Sit to/from Stand: 6 Sit to Lying (QC): 6 Sit to Stand (QC): 6 Chair/Lhj-ev-Sqvne Xfer(QC): 6 Pt is mod indep with all functional transfers. Gait Training Does the Patient Walk?: Yes Gait (FIM): 6 Distance (FIM): 3=150 ft Distance: 250 ft x 2; 300 ft x 2 Walk 10 feet (QC): 6 Walk 50 ft with 2 Turns(QC): 6 Walk 150 ft (QC): 6 Pt ambulated 250 ft x 2 with FWW mod indep; transitioned to cane and ambulated 300 ft x 2 with cane mod indep. Pt typically uses a cane at home. Wheelchair Training Does the Pt Use a Wheelchair?: No Stair Training Stair Training: Handrails/: 2 handrails Stairs (FIM): 5 (household) #of Steps: 8 1 Step (curb) (QC): 6 4 Steps (QC): 5 Level of Assist: 6 Pt notes that stairs can be difficult due to his knees. Exercises NuStep Minutes: 15 (to promote LE strength for functional gait and transfers. ) Assessment Current Status: Excellent Progress Progressing towards goals. Meeting PT goals. PT Short Term Goals Short Term Goals Time Frame: Nov 20, 2016 Transfers (B,C,W/C) (FIM): 5 (met ) Gait (FIM): 5 (met) Gait Distance Comment: 200' Gait Level of Assist: 5 (met) Gait Assistive Device: FWW PT Usp Goals Pm Technician Goals PT Usp Goals Time Frame: December 04, 2016 Transfers (B,C,W/C) (FIM): 6 (met) Sit to Lying (QC): 6 (met) Lying-Sitting on Side/Bed(QC): 6 (met) Sit to Stand (QC): 6 (met) Rollin Roll Left to Right (QC): 6 (met) Car Transfer (QC): 4 Gait (FIM): 6 (met) Distance: 300' Walk 10 feet (QC): 6 Walk 10ft-Uneven Surface(QC): 6 Walk 50ft with 2 Turns (QC): 6 Walk 150 ft (QC): 6 Gait Level of Assist: 6 Gait Assistive Device: FWW Stairs (FIM): 2 (met) # of Steps: 4 1 Step (curb) (QC): 4 4 Steps (QC): 4 12 Steps (QC): 88 Stairs Level Of Assist: 5 Picking up an Object (QC): 88 PT Plan Problem List Problem List: Activity Tolerance, Functional Strength Treatment/Plan Treatment Plan: Continue Plan of Care Treatment Plan: Bed Mobility, Education, Functional Activity Farshad, Functional Strength, Group Therapy, Gait, Safety, Therapeutic Exercise, Transfers Treatment Duration: December 04, 2016 Visits Per Week: 10-11 Minutes/Day (M-F): 60-90 Minutes/Day (Sat/Little): 15-30 Safety Risks/Education Patient Education: Safety Issues Teaching Recipient: Patient Teaching Methods: Discussion Response to Teaching: Verbalize Understanding Discharge Recommendations Plan Possible discharge the middle of the week. Time/GCodes Time In: 820 Time Out: 920 Total Billed Treatment Time: 60 Total Billed Treatment visit GT 30 FA 15 Ex 15 MARIA A DUBON PT Nov 16, 2016 09:36
--- NOTE | 2016-11-16 09:56 | HISTORY AND PHYSICAL ---
DATE OF ADMISSION: 11/13/2016 CHIEF COMPLAINT: Difficulty with walking. HISTORY OF PRESENT ILLNESS: The patient is a 66-year-old male who is retired and a patient of Dr. Guerrero, that presented to ED with fever and right lower leg redness. He was admitted on 11/11 via the ED to hospitalist service, Dr. Oconnor. The patient was found to have cellulitis with a fever 102.5 and a WBC count 15.5. The patient has diabetes and his blood sugars were high. He is on insulin and this was resumed as well as sliding scale insulin . He was provided with potassium replacement. He had some nausea and vomiting on the day being seen in ER at his home. He had complaints of weakness and dizziness as well, swelling and pain in his right leg with an abrasion noted. The patient is now referred to Inpatient Rehabilitation Unit due to a decline in functional independence. He had been independent at home. He used a walker for distances outside his home. Currently he is contact guard to minimal assist for bed mobility, transfers, and ambulation with a wheeled walker. He has limited endurance. He uses CPAP at night for sleep apnea He is set up for eating and grooming. Mod assist for lower body dressing, bathing and toileting. Min assist for upper body dressing. PAST MEDICAL HISTORY: 1. Insulin-dependent diabetes mellitus. 2. TREE on CPAP. 3. Coronary artery disease. 4. Hypertension. 5. Hyperlipidemia. 6. Morbid obesity. 7. Carotid stenosis. PAST SURGICAL HISTORY: CABG January 2016. His orchid transplanter, Dr. Yoon in [place]. ALLERGIES: 1. FENOFIBRATE. 2. NIACIN. 3. ROSUVASTATIN. FAMILY HISTORY: Noncontributory. 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 He is single. He has a son in [place] and a sister in [place]. He is listed as disabled. REVIEW OF SYSTEMS: Ten-point review of systems is significant for a leg pain and swelling, some dyspnea on exertion. MEDICATIONS: 1. Lovenox 40 mg subcutaneous daily. 2. Allopurinol 100 mg p.o. daily. 3. ASA 81 mg p.o. daily. 4. Furosemide 20 mg p.o. daily. 5. Lopid 600 mg p.o. daily. 6. Valsartan 20 mg p.o. daily. 7. Amlodipine 10 mg p.o. daily. 8. Vitamin C 1000 mg p.o. daily. 9. Calcium with vitamin D 600 mg p.o. daily. 10. Vitamin E 400 units p.o. daily. 11. Mag-Ox 400 mg p.o. daily. 12. Protonix 20 mg p.o. daily. 13. KCL 10 mEq p.o. daily. 14. Effexor 150 mg p.o. daily. 15. Coreg 25 mg p.o. b.i.d. 16. Plavix 75 mg p.o. b.i.d. 17. Gabapentin 600 mg p.o. b.i.d. 18. Silvadene cream apply to affected areas b.i.d. 19. Levemir insulin 62 units subcutaneous at bedtime. 20. Omnicef 300 mg p.o. b.i.d. 21. Folic acid 1 mg p.o. b.i.d. with meals. 22. Fish oil 2000 mg p.o. b.i.d. 23. Aspart insulin 35 units subcutaneous before meals. 24. Tylenol 1000 mg p.o. q.6 hours p.r.n. mild pain or fever. 25. Zofran 4 mg p.o. q.4 hours p.r.n. nausea, vomiting. PHYSICAL EXAMINATION: Significant for a pleasant male somewhat obese, lying in bed in no acute distress. VITAL SIGNS: He is afebrile. HEENT: Vision, speech, hearing, grossly intact. No oral lesion is noted. NECK: Supple without mass. HEART: Regular rhythm. LUNGS: Clear. ABDOMEN: Obese, soft, nontender. Bowel sounds present. EXTREMITIES: He has peripheral edema right more than left with some tenderness in the right leg. MUSCULOSKELETAL: He has functional active range of motion of all 4 extremities with some guarding in the distal right leg due to tenderness and swelling. NEUROLOGIC: Sensation is grossly intact to touch. Cognition grossly intact. IMPRESSION: 1. General debilitation secondary to bout of cellulitis, right leg, now on antibiotics, improving which associated with leukocytosis and fever. 2. TREE on CPAP. 3. Insulin-dependent diabetes mellitus. 4. Coronary artery disease, status post CABG 01/2016. 5. Hypertension, controlled with medication. 6. Hyperlipidemia. 7. Morbid obesity. 8. Carotid stenosis. PLAN: The patient will have a comprehensive program of inpatient rehabilitation with goal of maximizing level of functional independence prior to discharge home with family and home health care. The patient will have PT/OT 90 minutes per day, each discipline, 5 days week for gait strengthening, conditioning, balance, energy conservation, any patient/family/caregiver training necessary, any adaptive equipment and training necessary. Speech therapy do cognitive assessment and treat as indicated. Rehabilitation nursing assist with bowel, bladder, skin care, medication administration, pain management. tax services specialist to assist with discharge plan and community reentry. Therapy with cardiac and fall precautions. Follow-up with Dr. Oconnor et al. as per their schedules. Monitor Accu-Cheks and adjust insulin as needed. Continue current medications. ESTIMATED LENGTH OF STAY: Two weeks. PROGNOSIS: Rehab prognosis appears good for goal of discharging home with home health care and family, modified independent to supervision for ADLs and mobility skills. DIET: Carb consistent. CODE STATUS: FULL code. Job ID: [id number] Dictated Date: 11/13/2016 11:56:32 Planned Giving Officer Date: 11/16/2016 09:33:44/lana FORDE
[2016-11-16] MEDS: ENOXAPARIN 40 MG/0.4 ML (LOVENOX) SYR SC SCH (11:47)
--- NOTE | 2016-11-16 12:57 | Occupational Ther Daily Note ---
OT Current Status-Daily Note Subjective Pt seen in room, up in bed, agreeable to OT. Wants to wait to shower tomorrow. No pain mentioned. Appearance Alert, cooperative Mental Status/Objective Functional [place] Measure 0=Not Assessed/NA 4=Minimal Assistance 1=Total Assistance 5=Supervision or Setup 2=Maximal Assistance 6=Modified [place] 3=Moderate Assistance 7=Complete [place] ADL-Treatment Functional [place] Measure 0=Not Assessed/NA 4=Minimal Assistance 1=Total Assistance 5=Supervision or Setup 2=Maximal Assistance 6=Modified [place] 3=Moderate Assistance 7=Complete IndependenceIRFPAI Quality Coding Scale 6 Independent with activity with or without an assistive device 5 Patient requires set up or clean up by helper. Patient completes activity by themselves 4 Supervision or touching assist (CGA). [place] provide cues , steadying assist 3 The helper provides less than half the effort to complete the activity 2 The helper provides more than half the effort to complete the activity 1 Dependent. The helper does all the effort to complete an activity 7 Patient refused to complete or attempt activity 9 The patient did not perform the activity before the current illness or injury 88 Not attempted due to Medical conditions or safety concerns Other Treatment Pt transitioned from supine to sit EOB without assistance. Put shoes on and tied them without help (pt education on option of elastic shoe laces). He walked to the gym with FWW without assistance or LOB and indicated that he has been taking himself to the bathroom. In the gym he did a total of 12 minutes bilat UE exercise on the arm bike, doing 7 minute, 3 minute and 2 minutes stretches, set at 15W resistance, with recovery periods between them. He said when he was doing cardiac rehab that he only did about 5 minutes on the arm bike. He also did 10 reps bilat UE exercise with 3# weight. Pt knew most of the exercises already and was shown several more to do. He was able to track reps without difficulty. Exercise to help him strengthen arms for walking with SPC and for increasing activity tolerance. Pt walked back to room, up at EOB, all needs met. Education OT Patient Education: Exercise program, Purpose of tx/functional activities Teaching Recipient: Patient Response to Teaching: Verbalize Understanding, Return Demonstration, Reinforcement Needed OT Short Term Goals Short Term Goals Time Frame: Nov 20, 2016 Bathing(FIM): 5 Lower Body Dressing(FIM): 5 Toileting(FIM): 5 Transfers (B,C,W/C) (FIM): 5 (met ) Shower Transfer(FIM): 5 Additional Short Term Goals: 1-Demonstrate ADL Tasks, 2-Verbalize Understanding , 3-ImproveStrength/Farshad 1=Demonstrate adherence to instructed precautions during ADL tasks. 2=Patient will verbalize/demonstrate understanding of assistive devices/ modifications for ADL. 3=Patient will improve strength/tolerance for activity to enable patient to perform ADL's. OT Care Home Goals Electric Milkers Installer Goals Time Frame: December 04, 2016 Eating (FIM): 7 Eating (QC): 6 Groomin Oral Hygiene (QC): 6 Bathing(FIM): 6 Shower/Bathe Self (QC): 6 Upper Body Dressing(FIM): 6 Upper Body Dressing (QC): 6 Lower Body Dressing(FIM): 6 Lower Body Dressing (QC): 6 On/Off Footwear (QC): 6 Toileting(FIM): 6 Toileting Hygiene (QC): 6 Toilet/Commode Transfer(FIM): 6 Toilet/Commode Transfer (QC): 6 Shower Transfer(FIM): 6 Additional Goals: 1-Demonstrate ADL Tasks, 2-Verbalize Understanding, 3- ImproveStrength/Farshad 1=Demonstrate adherence to instructed precautions during ADL tasks. 2=Patient will verbalize/demonstrate understanding of assistive devices/ modifications for ADL. 3=Patient will improve strength/tolerance for activity to enable patient to perform ADL's. OT Education/Plan Problem List/Assessment Pt to benefit from skilled OT intervention for ADL training, transfers, strengthening, and home safety education to maximize level of function and allow safe return home. Discharge Recommendations Plan/Recommendations: Continue POC Treatment Plan/Plan of Care Patient would benefit from OT for education, treatment and training to promote independence in ADL's, mobility, safety and/or upper extremity function for ADL' s. Plan of Care: ADL Retraining, Functional Mobility, Group Exercise/Act as Ind, UE Funct Exercise/Act Treatment Duration: December 04, 2016 Visits Per Week: 10-12 Minutes/Day (M-F): 60-90 Minutes/Day (Sat/Little): PRN Agreement: Yes Rehab Potential: Fair Time/GCodes Start Time: 10:20 Stop Time: 11:20 Total Time Billed (hr/min): 60 Billed Treatment Time visit, 60 minutes exercise GILBERT PAYNE OT Nov 16, 2016 12:57
--- NOTE | 2016-11-16 14:31 | Therapy Group Daily Note ---
Therapy Daily Group Note Patient Education Topic Home Safety, Fall Prevention Other/Notes Pt was an active participant in OT group. He introduced himself for socialization by sharing his favorite spring flower. He contributed to the discussion/education on fall prevention and, by the end of the group, was able to identify a change he would make at home to prevent falls. He walked back to his room with SBA, FWW and was left in bed, all needs met. Start Time: 13:00 Stop Time: 14:10 Total Billed Treatment Time: 70 Total Billed Treatment visit, 70 minutes group GILBERT PAYNE OT Nov 16, 2016 14:31
[2016-11-16 18:10] VITALS: BP 133/77
--- NOTE | 2016-11-16 19:38 | PM & R (SOAP) Progress Note ---
Subjective Subjective/Events-last exam Patient was seen in his room and on unit ambulating with PT Patient SBA for transfers. Discussed case with SW and RN Appreciate therapy notes Objective Exam Last Set of Vital Signs Vital Signs Date Time Temp Pulse Resp B/P (MAP) Pulse Ox O2 Delivery O2 Flow Rate FiO2 11/16/16 18:10 98.1 63 18 133/77 97 Room Air Capillary Refill : I&O Intake and Output 11/16/16 00:00 Intake Total 2327 ml Balance 2327 ml Intake Oral 2327 ml # Voids 7 # Bowel Movements 2 General: Alert, Oriented X3, Cooperative, No Acute Distress HEENT: Atraumatic, PERRLA, EOMI, Mucous Memb Moist/Doctor [place] Neck: Supple, No JVD Lungs: Clear to Auscultation Heart: Regular Rate Abdomen: Normal Bowel Sounds, Soft, No Tenderness Extremities: Other (rt leg cellulitis improving has completed course of antibiotics) Results Lab Laboratory Tests 11/13/16 21:20: Glucometer 313H 11/14/16 05:27: Glucometer 275H 11/14/16 11:07: Glucometer 222H 11/14/16 16:15: Glucometer 164H 11/14/16 20:19: Glucometer 201H 11/15/16 06:22: Glucometer 283H 11/15/16 11:50: Glucometer 212H 11/15/16 16:24: Glucometer 135H 11/15/16 20:42: Glucometer 218H 11/16/16 05:16: Glucometer 200H 11/16/16 11:46: Glucometer 187H 11/16/16 17:10: Glucometer 176H Assessment/Plan Assessment General debil secondary to Cellulitis rt leg IDDM TREE on cpap HTN Morbid obesity HLP Carotid stenosis CAD s/p CABG 01/2016 Plan Continue PT/OT Monitor accuchecks and adjust insulin as needed Team Conference 11/18/16 ARMEN TENORIO MD Nov 16, 2016 19:38
--- NOTE | 2016-11-16 19:42 | Individualized Plan of Care ---
Individualized Plan of Care Rehab Nursing IPOC Order Admission Date Nov 13, 2016 at 10:31 Current Orders Orders Patient Visit (11/16/16 ) Gait Training, Ea 15 Min (11/16/16 ) Exercise Therap, Ea 15 Min (11/16/16 ) Functional Activities, Ea 15 (11/16/16 ) Toilet every (bladder): (hrs): q 2hours while awake PRN PT IPOC Problem List: Activity Tolerance, Functional Strength Treatment Plan: Continue Plan of Care Bed Mobility, Education, Functional Activity Farshad, Functional Strength, Group Therapy, Gait, Safety, Therapeutic Exercise, Transfers Treatment Duration: December 04, 2016 Visits Per Week: 10-11 Minutes/Day (M-F): 60-90 Minutes/Day (Sat/Little): 15-30 OT IPOC Problems: Decreased Activ Tolerance, Decreased UE Strength, Dependent Transfers , Impaired Self-Care Skills OT Problems Pt to benefit from skilled OT intervention for ADL training, transfers, strengthening, and home safety education to maximize level of function and allow safe return home. Plan of Care: ADL Retraining, Functional Mobility, Group Exercise/Act as Ind, UE Funct Exercise/Act Treatment Duration: December 04, 2016 Visits Per Week: 10-12 Minutes/Day (M-F): 60-90 Minutes/Day (Sat/Little): PRN ST IPOC Speech Therapy Treatment Plan: Discontinue ST Physician IPOC Medical Issues being managed closely and that require the 24 hour availability of a physician:IDDM,HTN Cellulitis Medical Issues: Bowel/Bladder Function, DVT Prophylaxis, Falls Precautions, Fluid/Electrolyte/Nutrition Balance, Infection Protection, Pain Management, Other (List) (as per above) Brief Synthesis of Preadmission Screen, Post-Admission Evaluation, and Therapy Evaluations: 66 yo male with a decline in functional [place] secondary to Cellulitis rt leg.Has multiple comorbidities including TREE IDDM HTN and Morbid obesity. Medical Prognosis: good Anticipated Length of Stay: 10 days Rehab Goals Modified [place] for adls and mobility skills with decreased pain and swelling Anticipated discharge destinat: Home with ARMEN BAI MD Nov 16, 2016 19:42
[2016-11-16] MEDS: inSUlin DETERMIR 1 UNIT/0.01 ML (LEVEMIR) CHARGE PER UNIT SQ SCH (21:29)
[2016-11-17 06:00] VITALS: BP 122/76
[2016-11-17] MEDS: VITAMIN E 400 INTLU CAP PO SCH (06:16)
[2016-11-17] MEDS: ASCORBIC ACID (VIT C) 500 MG TABLET PO SCH (06:16)
[2016-11-17] MEDS: FOLIC ACID 1 MG TAB PO SCH ×2 (06:16→17:22)
[2016-11-17] MEDS: KCL 10 MEQ TAB (MICRO K) PO SCH (06:16)
[2016-11-17] MEDS: PANTOPRAZOLE 20 MG TABLET (PROTONIX) PO SCH (06:16)
[2016-11-17] MEDS: CALCIUM CARB + VIT D 600 MG (CALCARB + D) TAB PO SCH (06:16)
[2016-11-17] MEDS: VENlafaxine XR 75 MG (EFFEXOR XR) CAP PO SCH (06:17)
[2016-11-17] MEDS: OMEGA 3 (FISH OIL) 1000 MG CAP PO SCH ×2 (06:17→17:22)
[2016-11-17] MEDS: MAGNESIUM OXIDE (MAG-OX)400 MG TAB PO SCH (06:17)
[2016-11-17] MEDS: inSUlin ASPART (NovoLOG) 1 UNIT/0.01 ML (CHARGE PER UNIT) SC SCH ×3 (06:18→17:22)
[2016-11-17] MEDS: CLOPIDOGREL 75 MG (PLAVIX) TABLET PO SCH ×2 (08:42→20:58)
[2016-11-17] MEDS: VALSARTAN 80 MG (DIOVAN) TAB PO SCH (08:42)
[2016-11-17] MEDS: CARVEDILOL 12.5 MG (COREG) TABLET PO SCH ×2 (08:42→20:58)
[2016-11-17] MEDS: FUROSEMIDE 20 MG (LASIX) TAB PO SCH (08:42)
[2016-11-17] MEDS: GABAPENTIN 300 MG (NEURONTIN) CAP PO SCH ×2 (08:42→20:58)
[2016-11-17] MEDS: SILVER SULFADIAZINE 50 GM CREAM TOP SCH ×2 (08:42→20:59)
[2016-11-17] MEDS: ASPIRIN E.C. 81 MG (ECOTRIN) TAB PO SCH (08:42)
[2016-11-17] MEDS: amLODIPine 10 MG (NORVASC) TAB PO SCH (08:42)
[2016-11-17] MEDS: GEMFIBROZIL 600 MG (LOPID) TAB PO SCH (08:42)
[2016-11-17] MEDS: ALLOPURINOL 100 MG (ZYLOPRIM) TAB PO SCH (08:42)
--- NOTE | 2016-11-17 11:27 | PM & R (SOAP) Progress Note ---
Subjective Subjective/Events-last exam Patient was seen in his room this AM Patient modified Independent for transfers Objective Exam Last Set of Vital Signs Vital Signs Date Time Temp Pulse Resp B/P (MAP) Pulse Ox O2 Delivery O2 Flow Rate FiO2 11/17/16 09:43 Room Air 11/17/16 06:00 99.1 74 16 122/76 96 Capillary Refill : I&O Intake and Output 11/17/16 00:00 Intake Total 1790 ml Balance 1790 ml Intake Oral 1790 ml # Voids 5 # Bowel Movements 1 General: Alert, Oriented X3, Cooperative, No Acute Distress HEENT: Atraumatic, PERRLA, EOMI, Mucous Memb Moist/[place] Neck: Supple, No JVD Lungs: Clear to Auscultation Heart: Regular Rate Abdomen: Normal Bowel Sounds, Soft, No Tenderness Extremities: Other (rt leg cellulitis improving has completed course of antibiotics) Results Lab Laboratory Tests 11/14/16 16:15: Glucometer 164H 11/14/16 20:19: Glucometer 201H 11/15/16 06:22: Glucometer 283H 11/15/16 11:50: Glucometer 212H 11/15/16 16:24: Glucometer 135H 11/15/16 20:42: Glucometer 218H 11/16/16 05:16: Glucometer 200H 11/16/16 11:46: Glucometer 187H 11/16/16 17:10: Glucometer 176H 11/16/16 20:39: Glucometer 194H 11/17/16 06:17: Glucometer 187H 11/17/16 11:08: Glucometer 177H Assessment/Plan Assessment General debil secondary to Cellulitis rt leg IDDM TREE on cpap HTN Morbid obesity HLP Carotid stenosis 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
[2016-11-17] MEDS: ENOXAPARIN 40 MG/0.4 ML (LOVENOX) SYR SC SCH (12:01)
--- NOTE | 2016-11-17 12:12 | Physical Therapy Daily Note ---
PT Daily Note-Current Subjective Agrees to PT. ready to go home tomorrow. Pain Numeric Pain Scale: 0-No Pain Location: No Pain Reported Mental Status Patient Orientation: Person, Place, Time, Situation Transfers Functional [place] Measure 0=Not Assessed/NA 4=Minimal Assistance 1=Total Assistance 5=Supervision or Setup 2=Maximal Assistance 6=Modified [place] 3=Moderate Assistance 7=Complete IndependenceIRFPAI Quality Coding Scale 6 Independent with activity with or without an assistive device 5 Patient requires set up or clean up by helper. Patient completes activity by themselves 4 Supervision or touching assist (CGA). [place] provide cues , steadying assist 3 The helper provides less than half the effort to complete the activity 2 The helper provides more than half the effort to complete the activity 1 Dependent. The helper does all the effort to complete an activity 7 Patient refused to complete or attempt activity 9 The patient did not perform the activity before the current illness or injury 88 Not attempted due to Medical conditions or safety concerns Transfers (B, C, W/C) (FIM): 7 Roll Left to Right (QC): 6 Supine to/from Sit: 7 Sit to/from Stand: 7 Sit to Lying (QC): 7 Sit to Stand (QC): 6 Chair/[id number]-[id number] Xfer(QC): 6 Car Transfer (QC): 6 Pt is indep with all transfers. Gait Training Does the Patient Walk?: Yes Gait (FIM): 6 Distance (FIM): 3=150 ft Distance: 30o ft x 2 2with FWW; 300 ft x 1 with cane Walk 10 feet (QC): 6 Walk 50 ft with 2 Turns(QC): 6 Walk 150 ft (QC): 6 Walking 10ft/uneven surface-QC: 6 Gait Level of Assist: 6 Pt is safe using a FWW or cane, he has both at home. Pt able to mobilize long distances as well as in his room with multiple turns. no noted LOB and safety awareness appears good. Wheelchair Training Does the Pt Use a Wheelchair?: No Stair Training Stair Training: Handrails/: 2 handrails Stairs (FIM): 6 #of Steps: 12 1 Step (curb) (QC): 6 4 Steps (QC): 6 12 Steps (QC): 6 Stairs: Pattern: Step to No assist on stairs. He uses reciprocal gait and times and step to gait at times on the stairs. Exercises NuStep Minutes: 15 (To increase LE strength ad functional activity tolerance. ) Assessment Current Status: Excellent Progress Pt meeting all goals and making good functional gains. PT Short Term Goals Short Term Goals Time Frame: Nov 20, 2016 Transfers (B,C,W/C) (FIM): 5 (met ) Gait (FIM): 5 (met) Gait Distance Comment: 200' Gait Level of Assist: 5 (met) Gait Assistive Device: FWW PT Invoice Classification Clerk Goals Long-Term Goals PT Long-Term Goals Time Frame: December 04, 2016 Transfers (B,C,W/C) (FIM): 6 (met) Sit to Lying (QC): 6 (met) Lying-Sitting on Side/Bed(QC): 6 (met) Sit to Stand (QC): 6 (met) Rollin Roll Left to Right (QC): 6 (met) Car Transfer (QC): 4 Gait (FIM): 6 (met) Distance: 300' Walk 10 feet (QC): 6 (met) Walk 10ft-Uneven Surface(QC): 6 (met) Walk 50ft with 2 Turns (QC): 6 (met) Walk 150 ft (QC): 6 (met) Gait Level of Assist: 6 Gait Assistive Device: FWW Stairs (FIM): 2 (met) # of Steps: 4 1 Step (curb) (QC): 4 (exceeded) 4 Steps (QC): 4 (exceeded) 12 Steps (QC): 88 (exceeded) Stairs Level Of Assist: 5 Picking up an Object (QC): 88 Pt has met or exceeded all goals set at evaluation PT Plan Problem List Problem List: Activity Tolerance, Functional Strength Treatment/Plan Treatment Plan: Continue Plan of Care Treatment Plan: Bed Mobility, Education, Functional Activity Farshad, Functional Strength, Group Therapy, Gait, Safety, Therapeutic Exercise, Transfers Treatment Duration: December 04, 2016 Visits Per Week: 10-11 Minutes/Day (M-F): 60-90 Minutes/Day (Sat/Little): 15-30 Discharge Recommendations Plan Plan to discharge tomorrow. Time/GCodes Time In: 926 Time Out: 1028 Total Billed Treatment Time: 62 Total Billed Treatment visit EX 15 FA 15 GT 32 MARIA A DUBON PT Nov 17, 2016 12:12
--- NOTE | 2016-11-17 12:55 | Occupational Ther Daily Note ---
OT Current Status-Daily Note Subjective Pt in bed, agrees to treatment. Pt states his knees are "sore", but does not rate. Pt states he hopes to go home tomorrow. Mental Status/Objective Functional [place] Measure 0=Not Assessed/NA 4=Minimal Assistance 1=Total Assistance 5=Supervision or Setup 2=Maximal Assistance 6=Modified [place] 3=Moderate Assistance 7=Complete [place] ADL-Treatment Pt supine to sit without assistance. Sit to stand with modified independence. Pt retrieved clothing from closet using FWW for balance. Gait to restroom with FWW. Pt demonstrated ability to perform toilet transfer with modified independence. Transfer to walk in shower with modified independence. Pt able to wash/dry all areas with modified independence. Don pullover shirt with modified independence. Pt donned underwear and pants with modified independence. Don socks and shoes with modified independence while seated EOB. Increased time for dressing. Pt stood at sink for grooming. Pt dried hair, combed hair, and completed oral care with modified independence. Functional [place] Measure 0=Not Assessed/NA 4=Minimal Assistance 1=Total Assistance 5=Supervision or Setup 2=Maximal Assistance 6=Modified [place] 3=Moderate Assistance 7=Complete IndependenceIRFPAI Quality Coding Scale 6 Independent with activity with or without an assistive device 5 Patient requires set up or clean up by helper. Patient completes activity by themselves 4 Supervision or touching assist (CGA). [place] provide cues , steadying assist 3 The helper provides less than half the effort to complete the activity 2 The helper provides more than half the effort to complete the activity 1 Dependent. The helper does all the effort to complete an activity 7 Patient refused to complete or attempt activity 9 The patient did not perform the activity before the current illness or injury 88 Not attempted due to Medical conditions or safety concerns Eating (FIM): 7 (Pt reports feeding self, opening containers, and cutting food without assistance.) Eating (QC): 6 Grooming (FIM): 6 Oral Hygiene (QC): 6 Bathing (FIM): 6 Shower/Bathe Self (QC): 6 Upper Body (FIM): 6 Upper Body Dressing (QC): 6 Lower Body Dressing (FIM): 6 Lower Body Dressing (QC): 6 On/Off Footwear (QC): 6 Toileting (FIM): 6 (Pt reports getting up to restroom without assistance) Toileting Hygiene (QC): 6 Toilet/Commode Transfer (FIM): 6 Toilet Transfer (QC): 6 Shower Transfer(FIM): 6 Other Treatment Pt performed gait to therapy gym with FWW, no LOB noted. Bilateral UE exercises completed to increase strength needed for ADLs and transfers. Pt performed shoulder flexion, abduction, biceps curls, and triceps extension exercises x20 reps with moderate resistance (red) theraband. Brief rest breaks between exercises. Pt returned to room, transferred to chair with modified independence. Pt sitting in chair with needs met after session. OT Short Term Goals Short Term Goals Time Frame: Nov 20, 2016 Bathing(FIM): 5 Lower Body Dressing(FIM): 5 Toileting(FIM): 5 Transfers (B,C,W/C) (FIM): 5 (met ) Shower Transfer(FIM): 5 Additional Short Term Goals: 1-Demonstrate ADL Tasks, 2-Verbalize Understanding , 3-ImproveStrength/Farshad 1=Demonstrate adherence to instructed precautions during ADL tasks. 2=Patient will verbalize/demonstrate understanding of assistive devices/ modifications for ADL. 3=Patient will improve strength/tolerance for activity to enable patient to perform ADL's. OT Prison Goals Prison Goals Time Frame: December 04, 2016 Eating (FIM): 7 (met ) Eating (QC): 6 (6-MET) Groomin (met 11/17/16) Oral Hygiene (QC): 6 (6-MET) Bathing(FIM): 6 (met 11/17/16) Shower/Bathe Self (QC): 6 (6-MET) Upper Body Dressing(FIM): 6 (6-METmet 11/17/16) Upper Body Dressing (QC): 6 (6-MET) Lower Body Dressing(FIM): 6 (met 11/17/16) Lower Body Dressing (QC): 6 (6-MET) On/Off Footwear (QC): 6 (6-MET) Toileting(FIM): 6 (met ) Toileting Hygiene (QC): 6 (6-MET) Toilet/Commode Transfer(FIM): 6 (met 11/17/16) Toilet/Commode Transfer (QC): 6 (6-MET) Shower Transfer(FIM): 6 (met 11/17/16) Additional Goals: 1-Demonstrate ADL Tasks, 2-Verbalize Understanding, 3- ImproveStrength/Farshad 1=Demonstrate adherence to instructed precautions during ADL tasks. 2=Patient will verbalize/demonstrate understanding of assistive devices/ modifications for ADL. 3=Patient will improve strength/tolerance for activity to enable patient to perform ADL's. OT Education/Plan Problem List/Assessment Pt to benefit from skilled OT intervention for ADL training, transfers, strengthening, and home safety education to maximize level of function and allow safe return home. Discharge Recommendations Plan/Recommendations: Continue POC Treatment Plan/Plan of Care Patient would benefit from OT for education, treatment and training to promote independence in ADL's, mobility, safety and/or upper extremity function for ADL' s. Plan of Care: ADL Retraining, Functional Mobility, Group Exercise/Act as Ind, UE Funct Exercise/Act Treatment Duration: December 04, 2016 Visits Per Week: 10-12 Minutes/Day (M-F): 60-90 Minutes/Day (Sat/Little): PRN Agreement: Yes Rehab Potential: Fair Time/GCodes Start Time: 08:15 Stop Time: 09:15 Total Time Billed (hr/min): 60 Billed Treatment Time 1 visit, ADLx3(40minutes), Ex(20minutes) LEONA DYSON OT Nov 17, 2016 12:55
--- NOTE | 2016-11-17 13:12 | Occupational Ther Daily Note ---
OT Current Status-Daily Note Subjective Pt in bed, agrees to treatment. Mental Status/Objective Functional [place] Measure 0=Not Assessed/NA 4=Minimal Assistance 1=Total Assistance 5=Supervision or Setup 2=Maximal Assistance 6=Modified [place] 3=Moderate Assistance 7=Complete [place] ADL-Treatment Functional [place] Measure 0=Not Assessed/NA 4=Minimal Assistance 1=Total Assistance 5=Supervision or Setup 2=Maximal Assistance 6=Modified [place] 3=Moderate Assistance 7=Complete IndependenceIRFPAI Quality Coding Scale 6 Independent with activity with or without an assistive device 5 Patient requires set up or clean up by helper. Patient completes activity by themselves 4 Supervision or touching assist (CGA). [place] provide cues , steadying assist 3 The helper provides less than half the effort to complete the activity 2 The helper provides more than half the effort to complete the activity 1 Dependent. The helper does all the effort to complete an activity 7 Patient refused to complete or attempt activity 9 The patient did not perform the activity before the current illness or injury 88 Not attempted due to Medical conditions or safety concerns Other Treatment Pt supine to sit without assistance. Sit to stand with modified independence. Gait to therapy gym with FWW, no LOB noted. Arm bike x10 minutes to increase overall strength and activity tolerance needed for ADLs and transfers. Pt performed task with minimal resistance and slow pace. No rest breaks needed. Pt performed fine motor task with nuts and bolts with 2# weights in place to increase strength and fine motor coordination. Graded clothespin activity with bilateral hands to increase electrode cleaner/pinch strength. Pt returned to room after session, all needs met. OT Short Term Goals Short Term Goals Time Frame: Nov 20, 2016 Bathing(FIM): 5 Lower Body Dressing(FIM): 5 Toileting(FIM): 5 Transfers (B,C,W/C) (FIM): 5 (met ) Shower Transfer(FIM): 5 Additional Short Term Goals: 1-Demonstrate ADL Tasks, 2-Verbalize Understanding , 3-ImproveStrength/Farshad 1=Demonstrate adherence to instructed precautions during ADL tasks. 2=Patient will verbalize/demonstrate understanding of assistive devices/ modifications for ADL. 3=Patient will improve strength/tolerance for activity to enable patient to perform ADL's. OT Professor Of Chemical Engineering Goals Professor Of Chemical Engineering Goals Time Frame: December 04, 2016 Eating (FIM): 7 (met ) Eating (QC): 6 (6-MET) Groomin (met 11/17/16) Oral Hygiene (QC): 6 (6-MET) Bathing(FIM): 6 (met 11/17/16) Shower/Bathe Self (QC): 6 (6-MET) Upper Body Dressing(FIM): 6 (6-METmet 11/17/16) Upper Body Dressing (QC): 6 (6-MET) Lower Body Dressing(FIM): 6 (met 11/17/16) Lower Body Dressing (QC): 6 (6-MET) On/Off Footwear (QC): 6 (6-MET) Toileting(FIM): 6 (met ) Toileting Hygiene (QC): 6 (6-MET) Toilet/Commode Transfer(FIM): 6 (met 11/17/16) Toilet/Commode Transfer (QC): 6 (6-MET) Shower Transfer(FIM): 6 (met 11/17/16) Additional Goals: 1-Demonstrate ADL Tasks, 2-Verbalize Understanding, 3- ImproveStrength/Farshad 1=Demonstrate adherence to instructed precautions during ADL tasks. 2=Patient will verbalize/demonstrate understanding of assistive devices/ modifications for ADL. 3=Patient will improve strength/tolerance for activity to enable patient to perform ADL's. OT Education/Plan Problem List/Assessment Pt to benefit from skilled OT intervention for ADL training, transfers, strengthening, and home safety education to maximize level of function and allow safe return home. Discharge Recommendations Plan/Recommendations: Continue POC Treatment Plan/Plan of Care Patient would benefit from OT for education, treatment and training to promote independence in ADL's, mobility, safety and/or upper extremity function for ADL' s. Plan of Care: ADL Retraining, Functional Mobility, Group Exercise/Act as Ind, UE Funct Exercise/Act Treatment Duration: December 04, 2016 Visits Per Week: 10-12 Minutes/Day (M-F): 60-90 Minutes/Day (Sat/Little): PRN Agreement: Yes Rehab Potential: Fair Time/GCodes Start Time: 11:30 Stop Time: 12:00 Total Time Billed (hr/min): 30 Billed Treatment Time 1 visit, EXx2(30minutes) LEONA DYSON OT Nov 17, 2016 13:12
--- NOTE | 2016-11-17 15:26 | Physical Therapy Daily Note ---
PT Daily Note-Current Subjective Patient in bed pre tx, agrees to PT. He has no complaints of pain but always has some dizziness. Patient will be discharging from this facility tomorrow. Appearance Patient in bed post tx with nurse call, phone, tray, all needs met. Transfers Functional [place] Measure 0=Not Assessed/NA 4=Minimal Assistance 1=Total Assistance 5=Supervision or Setup 2=Maximal Assistance 6=Modified [place] 3=Moderate Assistance 7=Complete IndependenceIRFPAI Quality Coding Scale 6 Independent with activity with or without an assistive device 5 Patient requires set up or clean up by helper. Patient completes activity by themselves 4 Supervision or touching assist (CGA). [place] provide cues , steadying assist 3 The helper provides less than half the effort to complete the activity 2 The helper provides more than half the effort to complete the activity 1 Dependent. The helper does all the effort to complete an activity 7 Patient refused to complete or attempt activity 9 The patient did not perform the activity before the current illness or injury 88 Not attempted due to Medical conditions or safety concerns Transfers (B, C, W/C) (FIM): 6 Scootin Rollin Supine to/from Sit: 7 Sit to/from Stand: 6 Gait Training Gait (FIM): 6 Distance: 800'x2 Gait Assistive Device: FWW Patient ambulated outside, took a rest and ambulated back to his room. Patient did have to pause a couple of times due to dizziness. Balance Picking up an Object (QC): 6 Special Test Comments Patient picked an object up from the floor with mod I, he supported himself with a rolling walker while he was doing it. Assessment Current Status: Fair Progress Improving endurance and ambulation, general mobility. PT Short Term Goals Short Term Goals Time Frame: Nov 20, 2016 Transfers (B,C,W/C) (FIM): 5 (met ) Gait (FIM): 5 (met) Gait Distance Comment: 200' Gait Level of Assist: 5 (met) Gait Assistive Device: FWW PT Transcription Typist Goals Detention Goals PT Detention Goals Time Frame: December 04, 2016 Transfers (B,C,W/C) (FIM): 6 (met) Sit to Lying (QC): 6 (met) Lying-Sitting on Side/Bed(QC): 6 (met) Sit to Stand (QC): 6 (met) Rollin Roll Left to Right (QC): 6 (met) Car Transfer (QC): 4 Gait (FIM): 6 (met) Distance: 300' Walk 10 feet (QC): 6 (met) Walk 10ft-Uneven Surface(QC): 6 (met) Walk 50ft with 2 Turns (QC): 6 (met) Walk 150 ft (QC): 6 (met) Gait Level of Assist: 6 Gait Assistive Device: FWW Stairs (FIM): 2 (met) # of Steps: 4 1 Step (curb) (QC): 4 (exceeded) 4 Steps (QC): 4 (exceeded) 12 Steps (QC): 88 (exceeded) Stairs Level Of Assist: 5 Picking up an Object (QC): 88 PT Plan Problem List Problem List: Activity Tolerance, Functional Strength, Safety, Balance, Gait, Transfer Treatment/Plan Treatment Plan: Continue Plan of Care Treatment Plan: Bed Mobility, Education, Functional Activity Farshad, Functional Strength, Group Therapy, Gait, Safety, Therapeutic Exercise, Transfers Treatment Duration: December 04, 2016 Visits Per Week: 10-11 Minutes/Day (M-F): 60-90 Minutes/Day (Sat/Little): 15-30 Safety Risks/Education Patient Education: Gait Training, Transfer Techniques, Correct Positioning, Safety Issues Teaching Recipient: Patient Teaching Methods: Demonstration, Discussion Response to Teaching: Reinforcement Needed Time/GCodes Time In: 1500 Time Out: 1530 Total Billed Treatment Time: 30 Total Billed Treatment 1 visit GT 30 min BETTY STRONG PT Nov 17, 2016 15:26
[2016-11-17] MEDS ORDERED: SILV20CR14 TOP (15:31)
[2016-11-17 18:31] VITALS: BP 108/68
[2016-11-17] MEDS: inSUlin DETERMIR 1 UNIT/0.01 ML (LEVEMIR) CHARGE PER UNIT SQ SCH (20:58)
[2016-11-18 05:09] VITALS: BP 113/70
[2016-11-18] MEDS: OMEGA 3 (FISH OIL) 1000 MG CAP PO SCH (06:44)
[2016-11-18] MEDS: FOLIC ACID 1 MG TAB PO SCH (06:44)
[2016-11-18] MEDS: VITAMIN E 400 INTLU CAP PO SCH (06:44)
[2016-11-18] MEDS: PANTOPRAZOLE 20 MG TABLET (PROTONIX) PO SCH (06:44)
[2016-11-18] MEDS: ASCORBIC ACID (VIT C) 500 MG TABLET PO SCH (06:44)
[2016-11-18] MEDS: MAGNESIUM OXIDE (MAG-OX)400 MG TAB PO SCH (06:44)
[2016-11-18] MEDS: CALCIUM CARB + VIT D 600 MG (CALCARB + D) TAB PO SCH (06:44)
[2016-11-18] MEDS: KCL 10 MEQ TAB (MICRO K) PO SCH (06:44)
[2016-11-18] MEDS: VENlafaxine XR 75 MG (EFFEXOR XR) CAP PO SCH (06:44)
[2016-11-18] MEDS: inSUlin ASPART (NovoLOG) 1 UNIT/0.01 ML (CHARGE PER UNIT) SC SCH ×2 (07:35→11:40)
--- NOTE | 2016-11-18 08:25 | PM & R (SOAP) Progress Note ---
Subjective Subjective/Events-last exam Patient was seen in his room this AM Discussed case with SW yesterday Patient set for discharge to home today he declines HHC and states and he has a friend who lives next door who will help him out. Objective Exam Last Set of Vital Signs Vital Signs Date Time Temp Pulse Resp B/P (MAP) Pulse Ox O2 Delivery O2 Flow Rate FiO2 11/18/16 05:09 97.3 60 20 113/70 94 Room Air Capillary Refill : I&O Intake and Output 11/18/16 00:00 Intake Total 1770 ml Balance 1770 ml Intake Oral 1770 ml # Voids 4 General: Alert, Oriented X3, Cooperative, No Acute Distress HEENT: Atraumatic, PERRLA, EOMI, Mucous Memb Moist/[place] Neck: Supple, No JVD Lungs: Clear to Auscultation Heart: Regular Rate Abdomen: Normal Bowel Sounds, Soft, No Tenderness Extremities: Other (rt leg cellulitis improving has completed course of antibiotics) Results Lab Laboratory Tests 11/15/16 11:50: Glucometer 212H 11/15/16 16:24: Glucometer 135H 11/15/16 20:42: Glucometer 218H 11/16/16 05:16: Glucometer 200H 11/16/16 11:46: Glucometer 187H 11/16/16 17:10: Glucometer 176H 11/16/16 20:39: Glucometer 194H 11/17/16 06:17: Glucometer 187H 11/17/16 11:08: Glucometer 177H 11/17/16 16:02: Glucometer 159H 11/17/16 20:42: Glucometer 104 11/18/16 05:00: Glucometer 220H Assessment/Plan Assessment General debil secondary to Cellulitis rt leg IDDM TREE on cpap HTN Morbid obesity HLP Carotid stenosis CAD s/p CABG 01/2016 Plan Discharge today to home with neighbor to help out F/U with DR Pelletier PCP ARMEN Elliott MD Nov 18, 2016 08:25
[2016-11-18 08:40] VITALS: BP 134/68
[2016-11-18] MEDS: ALLOPURINOL 100 MG (ZYLOPRIM) TAB PO SCH (08:41)
[2016-11-18] MEDS: FUROSEMIDE 20 MG (LASIX) TAB PO SCH (08:41)
[2016-11-18] MEDS: CLOPIDOGREL 75 MG (PLAVIX) TABLET PO SCH (08:42)
[2016-11-18] MEDS: ASPIRIN E.C. 81 MG (ECOTRIN) TAB PO SCH (08:42)
[2016-11-18] MEDS: VALSARTAN 80 MG (DIOVAN) TAB PO SCH (08:42)
[2016-11-18] MEDS: CARVEDILOL 12.5 MG (COREG) TABLET PO SCH (08:42)
[2016-11-18] MEDS: GABAPENTIN 300 MG (NEURONTIN) CAP PO SCH (08:42)
[2016-11-18] MEDS: amLODIPine 10 MG (NORVASC) TAB PO SCH (08:42)
[2016-11-18] MEDS: GEMFIBROZIL 600 MG (LOPID) TAB PO SCH (08:43)
[2016-11-18] MEDS: SILVER SULFADIAZINE 50 GM CREAM TOP SCH (08:43)
--- NOTE | 2016-11-18 11:27 | Therapy Team Discharge Summary ---
Therapy Discharge Summary Discharge Recommendations Date of Discharge Therapy D/C Recommendations: Home w/ Family Support Occupational Therapy Pt admitted to ARU following acute hospitalization for right LE cellulitis. On admission pt required min assist for bathing and shower transfer; SBA for toilet transfer, grooming, and UE dressing; and mod assist for LE dressing. Skilled OT intervention focused on ADL training, transfers, strengthening, and safety education. Pt made good progress with therapy and by discharge is completing ADLs and transfers with modified independence. Pt met all OT LTG. Pt to d/c home today. D/C ARU OT at this time. PT Group Home Goals Behavioral Assistant Goals PT Behavioral Assistant Goals Time Frame: December 04, 2016 Transfers (B,C,W/C) (FIM): 6 (met) Roll Left to Right (QC): 6 (met) Sit to Lying (QC): 6 (met) Lying-Sitting on Side/Bed(QC): 6 (met) Sit to Stand (QC): 6 (met) Car Transfer (QC): 4 Gait (FIM): 6 (met) Distance: 300' Walk 10 feet (QC): 6 (met) Walk 10ft-Uneven Surface(QC): 6 (met) Walk 50ft with 2 Turns (QC): 6 (met) Walk 150 ft (QC): 6 (met) Gait Level of Assist: 6 Gait Assistive Device: FWW Stairs (FIM): 2 (met) # of Steps: 4 1 Step (curb) (QC): 4 (exceeded) 4 Steps (QC): 4 (exceeded) 12 Steps (QC): 88 (exceeded) Stairs Level Of Assist: 5 Picking up an Object (QC): 88 OT Group Home Goals Behavioral Assistant Goals Time Frame: December 04, 2016 Eating (FIM): 7 (met ) Eating (QC): 6 (6-MET) Oral Hygiene (QC): 6 (6-MET) Grooming(FIM): 6 (met 11/17/16) Bathing(FIM): 6 (met 11/17/16) Shower/Bathe Self (QC): 6 (6-MET) Upper Body Dressing(FIM): 6 (6-METmet 11/17/16) Upper Body Dressing (QC): 6 (6-MET) Lower Body Dressing(FIM): 6 (met 11/17/16) Lower Body Dressing (QC): 6 (6-MET) On/Off Footwear (QC): 6 (6-MET) Toileting(FIM): 6 (met ) Toileting Hygiene (QC): 6 (6-MET) Toilet/Commode Transfer(FIM): 6 (met 11/17/16) Toilet/Commode Transfer (QC): 6 (6-MET) Shower Transfer(FIM): 6 (met 11/17/16) Additional Goals: 1-Demonstrate ADL Tasks, 2-Verbalize Understanding, 3- ImproveStrength/Farshad 1=Demonstrate adherence to instructed precautions during ADL tasks. 2=Patient will verbalize/demonstrate understanding of assistive devices/ modifications for ADL. 3=Patient will improve strength/tolerance for activity to enable patient to perform ADL's. LEONA DYSON OT Nov 18, 2016 11:27
[2016-11-18] MEDS: ENOXAPARIN 40 MG/0.4 ML (LOVENOX) SYR SC SCH (11:40)
--- NOTE | 2016-11-18 12:18 | Therapy Team Discharge Summary ---
Therapy Discharge Summary Discharge Recommendations Date of Discharge 11/18/16 Therapy D/C Recommendations: Home w/ Family Support Physical Therapy This patient was seen on ARU post acute stay for cellulitis B LE's. Upon admission, he required min assist with functional transfers and gait. Upon discharge, he was mod indep to indep with all transfers and gait. Treatment consited of LE strength, functional activity tolerance, gait, transfers, stairs and safety training. He is able to ambulate mod indep with a fWW or a cane, at his descretion/desire. He made excellent functional gains and has achieved all goals set at evaluation. He is to discharge home this date. PT Special Equipment Technician Goals Longterm Goals PT Longterm Goals Time Frame: December 04, 2016 Transfers (B,C,W/C) (FIM): 6 (met) Roll Left to Right (QC): 6 (met) Sit to Lying (QC): 6 (met) Lying-Sitting on Side/Bed(QC): 6 (met) Sit to Stand (QC): 6 (met) Car Transfer (QC): 4 Gait (FIM): 6 (met) Distance: 300' Walk 10 feet (QC): 6 (met) Walk 10ft-Uneven Surface(QC): 6 (met) Walk 50ft with 2 Turns (QC): 6 (met) Walk 150 ft (QC): 6 (met) Gait Level of Assist: 6 Gait Assistive Device: FWW Stairs (FIM): 2 (met) # of Steps: 4 1 Step (curb) (QC): 4 (exceeded) 4 Steps (QC): 4 (exceeded) 12 Steps (QC): 88 (exceeded) Stairs Level Of Assist: 5 Picking up an Object (QC): 88 (scored a 6) OT Special Equipment Technician Goals Special Equipment Technician Goals Time Frame: December 04, 2016 Eating (FIM): 7 (met ) Eating (QC): 6 (6-MET) Oral Hygiene (QC): 6 (6-MET) Grooming(FIM): 6 (met 11/17/16) Bathing(FIM): 6 (met 11/17/16) Shower/Bathe Self (QC): 6 (6-MET) Upper Body Dressing(FIM): 6 (6-METmet 11/17/16) Upper Body Dressing (QC): 6 (6-MET) Lower Body Dressing(FIM): 6 (met 11/17/16) Lower Body Dressing (QC): 6 (6-MET) On/Off Footwear (QC): 6 (6-MET) Toileting(FIM): 6 (met ) Toileting Hygiene (QC): 6 (6-MET) Toilet/Commode Transfer(FIM): 6 (met 11/17/16) Toilet/Commode Transfer (QC): 6 (6-MET) Shower Transfer(FIM): 6 (met 11/17/16) Additional Goals: 1-Demonstrate ADL Tasks, 2-Verbalize Understanding, 3- ImproveStrength/Farshad 1=Demonstrate adherence to instructed precautions during ADL tasks. 2=Patient will verbalize/demonstrate understanding of assistive devices/ modifications for ADL. 3=Patient will improve strength/tolerance for activity to enable patient to perform ADL's. MARIA A DUBON PT Nov 18, 2016 12:18
[2016-11-18 12:36] VITALS: BP 127/69
== END 2016-11-18 12:36 | disposition home or self-care (01) | DRG 603 ==
LOC: ENPENDDIS 11-18 12:00
PROVIDERS: ADMIT Physical Medicine & Rehabilitation; ATTEND Physical Medicine & Rehabilitation
DX: L03.115 Cellulitis of right lower limb (principal); E11.9 Type 2 diabetes mellitus without complications; E66.01 Morbid (severe) obesity due to excess calories; Z68.42 Body mass index [BMI] 45.0-49.9, adult; G47.33 Obstructive sleep apnea (adult) (pediatric); I25.10 Atherosclerotic heart disease of native coronary artery without angina pectoris; I10 Essential (primary) hypertension; E78.5 Hyperlipidemia, unspecified; I65.29 Occlusion and stenosis of unspecified carotid artery; Z79.4 Long term (current) use of insulin; Z95.1 Presence of aortocoronary bypass graft
CPT/HCPCS: 82962

== ENCOUNTER → 2017-10-11 | Outpatient (CLI) | payer MEDICARE ==
[~2017-10-11] MED LIST changes: +SILV20CR14 TOP
--- NOTE | 2017-10-11 14:26 | Diagnostic Imaging Report ---
EXAMINATION: Left hand. INDICATION: Injury. Three views were obtained. There are no prior studies available for comparison. FINDINGS: There is a broad poorly defined lucency extending through the radial aspect of the distal-most navicular bone. This finding is only seen on one projection. This could represent a subacute nondisplaced fracture of the navicular bone. Correlation with the patient's pain would be recommended. No other fracture or acute bony abnormality is noted. There is mild degenerative disease of the triscaphe joint and at least moderate degenerative disease of the radiocarpal joint. There is also a long-standing avulsion fracture of the ulnar styloid. The soft tissues are unremarkable aside from surgical clips adjacent to the radial styloid. IMPRESSION: 1. There is a question of a nondisplaced subacute fracture involving the lateral aspect of the distal navicular bone. Clinical followup is recommended. If further imaging is desired, then MRI would be recommended. 2. There is no acute bony abnormality noted otherwise. Dictated by: Dictated on workstation # [id number]
--- NOTE | 2017-10-11 14:38 | Diagnostic Imaging Report ---
EXAMINATION: Left foot at 02:14 p.m. INDICATION: Injury to fifth digit. FINDINGS: Three views were obtained. There are no prior studies available for comparison. There is no fracture, dislocation, or acute bony abnormality evident. There is a small calcaneal spur. The soft tissues are unremarkable. IMPRESSION: There is no evidence for an acute bony abnormality. Dictated by: Dictated on workstation # [id number]
== END ==
LOC: RAD 13:32
PROVIDERS: ATTEND Internal Medicine
DX: S99.922A Unspecified injury of left foot, initial encounter (principal); S69.92XA Unspecified injury of left wrist, hand and finger(s), initial encounter
CPT/HCPCS: 73130; 73630

== ENCOUNTER 2018-02-09 14:35 | Emergency (ER) | payer MEDICARE ==
[~2018-02-09] VITALS: Ht 182.9 cm; Wt 155.1 kg
[~2018-02-09 14:35] MED LIST changes: +GEMF600T4 PO; -VALS320T14 PO; +VALS320T15 PO
[2018-02-09] MEDS ORDERED: NS IV 1000 ML 1,000 ML IV ONE (14:43)
[2018-02-09 14:54] LABS: BASOPHILS % (AUTO) 0 % (0-10); EOSINOPHILS # (AUTO) 0.1 10^3/uL (0.0-0.3); EOSINOPHILS % (AUTO) 1 % (0-10); HEMATOCRIT 43 % (40-54); HEMOGLOBIN 15.4 G/DL (13.3-17.7); LYMPHOCYTES # (AUTO) 1.8 X 10^3 (1.0-4.0); LYMPHOCYTES % (AUTO) 22 % (12-44); MEAN CORPUSCULAR HEMOGLOBIN 31 PG (25-34); MEAN CORPUSCULAR HGB CONC 36 G/DL (32-36); MEAN CORPUSCULAR VOLUME 87 FL (80-99); MEAN PLATELET VOLUME 10.5 FL (7.4-10.4); MONOCYTES # (AUTO) 0.7 X 10^3 (0.0-1.0); MONOCYTES % (AUTO) 9 % (0-12); NEUTROPHILS # (AUTO) 5.4 X 10^3 (1.8-7.8); NEUTROPHILS % (AUTO) 67 % (42-75); PLATELET COUNT 157 10^3/uL (130-400); RED BLOOD COUNT 4.93 10^6/uL (4.35-5.85); RED CELL DISTRIBUTION WIDTH 15.3 % (10.0-14.5); WHITE BLOOD COUNT 8.1 10^3/uL (4.3-11.0)
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
[2018-02-09 15:12] LABS: ALANINE AMINOTRANSFERASE 39 U/L (0-55); ALBUMIN 4.3 GM/DL (3.2-4.5); ALKALINE PHOSPHATASE 77 U/L (40-136); AMYLASE 24 U/L (25-125); BILIRUBIN,TOTAL 1.2 MG/DL (0.1-1.0); BUN/CREATININE RATIO 17; CALCIUM 9.9 MG/DL (8.5-10.1); CARBON DIOXIDE 20 MMOL/L (21-32); CHLORIDE 103 MMOL/L (98-107); CREATININE SERUM 1.32 MG/DL (0.60-1.30); GFR ESTIMATED 54; GLUCOSE 251 MG/DL (70-105); LIPASE 30 U/L (8-78); MAGNESIUM 2.3 MG/DL (1.8-2.4); POTASSIUM 4.1 MMOL/L (3.6-5.0); SODIUM 137 MMOL/L (135-145); TOTAL PROTEIN 7.4 GM/DL (6.4-8.2)
[2018-02-09 15:15] LABS: ACETAMINOPHEN < 10 UG/ML (10-30)
[2018-02-09] MEDS ORDERED: NS 100 ML (IVPB) BAG IV ONE (15:15)
[2018-02-09] MEDS ORDERED: IOHEXOL 350 MG/ML 150 ML (OMNIPAQUE 350) VIAL IV ONE (15:15)
[2018-02-09 15:22] LABS: PROTHROMBIN TIME PATIENT 13.4 SEC (12.2-14.7)
[2018-02-09 15:32] LABS: MYOGLOBIN SERUM 82.7 NG/ML (10.0-92.0); TSH (THYROID ANALYZER) 1.93 UIU/ML (0.35-4.94)
--- NOTE | 2018-02-09 15:45 | Diagnostic Imaging Report ---
INDICATION: Fall. Possible head injury. COMPARISON: 11/10/2016 FINDINGS: Single frontal view of the chest demonstrates normal heart size and pulmonary vascularity. The lungs are well aerated and clear. No large pleural effusion or pneumothorax is seen. The visualized osseous structures show no acute abnormalities. Sternotomy wires are noted. IMPRESSION: 1. No acute cardiopulmonary process. Dictated by: Dictated on workstation # [id number]
--- NOTE | 2018-02-09 16:43 | Diagnostic Imaging Report ---
INDICATION: Low back injury from a fall. EXAMINATION: CT thoracolumbar spine. TECHNIQUE: Thin axial sections through the thoracic and lumbar spine were obtained. Sagittal and coronal images were reformatted and reviewed. FINDINGS: The patient has anterior bridging osteophytes from T7 through T12. There are anterior osteophytes at T3-4, T4-5, and T5-6. The T5-6 osteophytes appear to be bridging. There are some osteophytes present in the lumbar spine but no bridging. There are no compression fractures. The alignment is normal. The posterior elements appear to be grossly intact. 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 No acute abnormality is seen in the thoracolumbar spine. Dictated by: Dictated on workstation # [id number]
--- NOTE | 2018-02-09 16:45 | Diagnostic Imaging Report ---
CLINICAL INDICATION: Patient is status post fall with right-sided neck pain. Exam: Head CT without IV contrast. Axial CT scan of the cervical spine with sagittal and coronal reformations. Comparison: CT scan of the brain without contrast 11/10/2016. Findings: Head CT: There is no evidence of acute cerebral infarct, intracranial hemorrhage, or gross mass effect. The brain parenchymal volume appears appropriate for patient's age. There are subtle low-attenuation white matter changes in both cerebral hemispheres, likely representing chronic small vessel ischemic disease. There is normal bryant-white matter distinction. There is no significant midline shift or herniation. There is no evidence of hydrocephalus. The basal cisterns are unremarkable. The skull, extracranial soft tissue, and orbits are unremarkable. The paranasal sinuses are unremarkable. Temporal bones show no significant abnormality. Cervical spine: There is limited visualization of the lower cervical spine due to patient body habitus and streak artifact. There is no acute cervical spine fracture or dislocation. There are hypertrophic vertebral body spurs and facet arthropathy seen which is most pronounced in the mid to lower cervical spine region. There is severe bilateral C6-C7 bony neural foramen narrowing due to uncinate spurs and facet arthropathy. There is at least moderate left C4-C5 neural foramen narrowing and severe left C3-C4 neural foramen narrowing. There is suggestion of C6-C7 diffuse disc bulge with moderate loss of intervertebral disc height. The neck soft tissue structures show no significant abnormality. Impression: 1: Age-related brain parenchymal changes with no evidence of acute intracranial process. There is no skull fracture. 2: There is multilevel cervical spine degenerative disease with no acute fracture or dislocation. Dictated by: Dictated on workstation # [id number]
--- NOTE | 2018-02-09 17:00 | Diagnostic Imaging Report ---
INDICATION: Fall. Right-sided pain. COMPARISON: 01/23/2009. TECHNIQUE: Post contrast CTA of the chest was performed. Contrast bolus was timed for optimal opacification of the arterial structures. Multiplanar and 3-D reformats were also performed and reviewed. Additionally, post contrast CT abdomen and pelvis was also performed. FINDINGS: CTA chest: Cardiomediastinal structures show normal heart size. There is no large pericardial effusion. Postsurgical changes of previous CABG are noted. There is advanced calcified atherosclerosis of the [place] coronary arteries. Thoracic aorta is normal in course and caliber. There is no evidence of dissection, aneurysm, or focal stenosis. There is no evidence of mediastinal hemorrhage. Few scattered subcentimeter mediastinal lymph nodes are noted. No abnormal mediastinal, hilar, or axillary adenopathy is identified. Evaluation of the lung talavera is mildly degraded secondary to motion artifact. There is no focal consolidation, pleural effusion, or pneumothorax on either side. Small pulmonary micronodules may be obscured. Small juxtapleural micronodule is noted within the medial margins of the superior segment of right lower lobe and measures approximately 6 mm (image 84, series 2). This is new when compared to 01/23/2009. Osseous structures show age-related degenerative changes of the thoracic spine. No acute-appearing bony abnormalities are identified. CT abdomen: Normal appendix is identified. Small bowel loops are nondistended. Liver has diffuse hypodense appearance on this post contrast exam. No focal enhancing hepatic mass-type lesions are seen. There is no evidence of traumatic injury to the liver. Note is made of cholelithiasis. Hypodense left renal cyst is noted. Otherwise, kidneys, adrenal glands, spleen, and pancreas have a normal CT appearance. There is no loculated fluid collection, free fluid, or free air within the abdomen. No abnormal mesenteric or retroperitoneal adenopathy is seen. There is diffuse calcified aortic and arterial atherosclerosis. This is greater than expected given patient's age. Bony structures show no acute abnormalities. CT pelvis: Urinary bladder is unopacified. No calculi are seen within the urinary bladder. There is no loculated fluid collection, free fluid, or free air within the pelvis. No abnormal lymph nodes are identified. Bony structures show no acute abnormalities. IMPRESSION: 1. No acute cardiopulmonary process. 2. Advanced calcified aortic, coronary, and arterial atherosclerosis. Correlation for underlying risk factors is recommended. 3. Small micronodule within the right lower lobe as described above. This is new when compared to 01/23/2009. Six-month follow-up is recommended. 4. Probable hepatic steatosis. 5. Cholelithiasis. Dictated by: Dictated on workstation # [id number]
[2018-02-09] MEDS ORDERED: LACTATED RINGERS 1,000 ML IV ONE (17:20)
[2018-02-09 17:48] LABS: BILIRUBIN,URINE NEGATIVE (NEGATIVE); CLARITY,URINE CLEAR; COLOR,URINE YELLOW; GLUCOSE, URINE (UA) 4+ (NEGATIVE); KETONES,URINE 3+ (NEGATIVE); LEUKOCYTE ESTERASE ,URINE 1+ (NEGATIVE); NITRITE,URINE NEGATIVE (NEGATIVE); PH,URINE 6 (5-9); PROTEIN,URINE 3+ (NEGATIVE); UROBILINOGEN,URINE NORMAL (NORMAL)
[2018-02-09 17:58] LABS: BACTERIA,URINE FEW /HPF; WBC,URINE RARE /HPF
[2018-02-09 18:07] LABS: AMPHETAMINE SCREEN, URINE NEGATIVE (NEGATIVE); BARBITURATE SCREEN URINE NEGATIVE (NEGATIVE); BENZODIAZEPINES SCREEN URINE NEGATIVE (NEGATIVE); CANNABINOID SCREEN, URINE NEGATIVE (NEGATIVE); COCAINE SCREEN URINE NEGATIVE (NEGATIVE); METHADONE STAT NEGATIVE (NEGATIVE); METHAMPHETAMINE SCREEN URINE S NEGATIVE (NEGATIVE); OPIATE SCREEN URINE NEGATIVE (NEGATIVE); OXYCODONE STAT NEGATIVE (NEGATIVE); PROPOXYPHENE STAT NEGATIVE (NEGATIVE); TRICYCLIC ANTIDEPRESSANTS SCRE POSITIVE (NEGATIVE)
[2018-02-09 18:33] VITALS: BP 179/94
== END 2018-02-09 18:46 | disposition short-term general hospital (02) ==
LOC: EDUNIT# 14:35 → ER 14:37
DX: R55 Syncope and collapse (principal); N28.9 Disorder of kidney and ureter, unspecified; M54.2 Cervicalgia; R10.31 Right lower quadrant pain; M25.511 Pain in right shoulder; E11.9 Type 2 diabetes mellitus without complications; G47.30 Sleep apnea, unspecified; J44.9 Chronic obstructive pulmonary disease, unspecified; I25.10 Atherosclerotic heart disease of native coronary artery without angina pectoris; I25.2 Old myocardial infarction; E78.00 Pure hypercholesterolemia, unspecified; I10 Essential (primary) hypertension; Z88.8 Allergy status to other drugs, medicaments and biological substances; Z82.49 Family history of ischemic heart disease and other diseases of the circulatory system; Z80.3 Family history of malignant neoplasm of breast; Z80.41 Family history of malignant neoplasm of ovary; Z79.4 Long term (current) use of insulin; Z95.1 Presence of aortocoronary bypass graft; Z95.5 Presence of coronary angioplasty implant and graft; Z79.82 Long term (current) use of aspirin; Z79.02 Long term (current) use of antithrombotics/antiplatelets; Z87.891 Personal history of nicotine dependence
CPT/HCPCS: 36415; 70450; 71045; 71275; 72125; 72128; 72131; 74177; 80053; 80306; 80320; 80329; 81000; 82150; 83690; 83735; 83874; 84443; 84484; 85025; 85610; 85730; 93005; 93041; 96360; 96361

== ENCOUNTER 2018-04-05 15:44 | Inpatient (IN) | payer MEDICARE ==
[~2018-04-05] VITALS: Ht 182.9 cm; Wt 149.7 kg
[~2018-04-05 15:44] MED LIST changes: -AMLO10TA2 PO; +AMLO10TA6 PO; +HYDR-4226 PO; -HYDR-757 PO
[2018-04-05] MEDS ORDERED: ONDANSETRON 4 MG/2 ML (SDV) Z0FRAN ONE (15:58)
[2018-04-05] MEDS ORDERED: ONDANSETRON 4 MG/2 ML (SDV) Z0FRAN IV PRN (16:00)
[2018-04-05] MEDS ORDERED: ACETAMINOPHEN 500 MG TAB (TYLENOL) PO PRN (16:00)
[2018-04-05] MEDS ORDERED: NS IV 1000 ML 1,500 ML IV ONE (16:00)
[2018-04-05] MEDS ORDERED: PIPERACILLIN SODIUM/TAZOBACTAM 4.5 GM in NS (IVPB) 100 ML IV ONE (16:00)
[2018-04-05 16:05] LABS: BASOPHILS % (AUTO) 0 % (0-10); EOSINOPHILS # (AUTO) 0.1 10^3/uL (0.0-0.3); EOSINOPHILS % (AUTO) 0 % (0-10); HEMATOCRIT 38 % (40-54); HEMOGLOBIN 13.7 G/DL (13.3-17.7); LYMPHOCYTES # (AUTO) 1.1 X 10^3 (1.0-4.0); LYMPHOCYTES % (AUTO) 9 % (12-44); MEAN CORPUSCULAR HEMOGLOBIN 32 PG (25-34); MEAN CORPUSCULAR HGB CONC 36 G/DL (32-36); MEAN CORPUSCULAR VOLUME 87 FL (80-99); MEAN PLATELET VOLUME 10.6 FL (7.4-10.4); MONOCYTES # (AUTO) 1.1 X 10^3 (0.0-1.0); MONOCYTES % (AUTO) 9 % (0-12); NEUTROPHILS # (AUTO) 10.2 X 10^3 (1.8-7.8); NEUTROPHILS % (AUTO) 82 % (42-75); PLATELET COUNT 151 10^3/uL (130-400); RED BLOOD COUNT 4.35 10^6/uL (4.35-5.85); RED CELL DISTRIBUTION WIDTH 15.2 % (10.0-14.5); WHITE BLOOD COUNT 12.3 10^3/uL (4.3-11.0)
--- NOTE | 2018-04-05 16:06 | ED Neurological Problem ---
General Stated Complaint: N/V Source: patient Exam Limitations: no limitations (DULCE MARIA CUEVAS) History of Present Illness Date Seen by Provider: Apr 05, 2018 Time Seen by Provider: 15:43 Initial Comments Patient presents to the ER by EMS from his home where he was having nausea secondary to vertigo. He's had this vertigo off and on for years. He says he was recently referred to ENT and had an appointment today but because of his nausea and vertigo is not able to go. He has not had any fevers chills cough shortness of breath dysuria he has had some pain in his neck. He associates the pain in his neck as being new and from her recent fall couple days ago. He has not been worked up for this fall since happened. He's been having a lot of falls secondary to the vertigo. He has diabetes and his blood sugar came down to around 250s after his insulin this morning. He still having some nausea now. EMS reports they had a temperature of 99.9 on arrival. Patient's having some pain in his right side of his belly. He also has some bruises that she states are from his insulin injections. He has a large bruise on his right foot that he said does not bother him but was from a fall last week. (DULCE MARIA CUEVAS) Allergies and Home Medications Allergies Coded Allergies: niacin (Unverified Allergy, Unknown, 06/26/10) rosuvastatin (Verified Allergy, Unknown, 04/20/07) fenofibrate (Unverified Adverse Reaction, Unknown, LIVER PROBLEMS, 01/23/15 ) Home Medications Allopurinol 100 Mg Tablet, 100 MG PO DAILY, (Reported) Amlodipine Besylate 10 Mg Tablet, 10 MG PO DAILY, (Reported) LAST FILLED 07/14/16 #90 Ascorbic Acid 500 Mg Tablet, 1,000 MG PO DAILY, (Reported) TAKES 2 (500MG) TABLETS Aspirin 81 Mg Tabec, 81 MG PO DAILY, (Reported) Calcium Carbonate/Vitamin D3 1 Each Tablet, 1 TAB PO DAILY, (Reported) Carvedilol 25 Mg Tablet, 25 MG PO BID, (Reported) Clopidogrel Bisulfate 75 Mg Tablet, 75 MG PO BID, (Reported) Folic Acid 1 Mg Tablet, 1 MG PO BID, (Reported) Furosemide 20 Mg Tablet, 20 MG PO DAILY, (Reported) Gabapentin 300 Mg Capsule, 600 MG PO BID, (Reported) TAKES 2 (300 MG) CAPSULES Gemfibrozil 600 Mg Tablet, 600 MG PO DAILY, (Reported) LAST FILLED 09/29/16 #30 Insulin Detemir 100 Unit/1 Ml Insuln.pen, 62 UNIT SQ HS, (Reported) Insulin Lispro 100 Unit/1 Ml Vial, 35 UNITS SQ AC, (Reported) Magnesium Oxide 400 Mg Tablet, 400 MG PO DAILY, (Reported) Woodruff-3/Dha/Epa/Fish Oil 1,000 Mg Capsule, 2,000 MG PO BID, (Reported) Omeprazole 20 Mg Capsule.dr, 20 MG PO DAILY, (Reported) Potassium Chloride 10 Meq Tab.er.prt, 10 MEQ PO DAILY, (Reported) LAST FILLED 07/03/16 #90 Silver Sulfadiazine 20 Gm Cream..g., 0 GM TOP BID Prescribed by: ARMEN TENORIO on 11/17/16 1531 Valsartan 320 Mg Tablet, 320 MG PO DAILY, (Reported) Venlafaxine HCl 150 Mg Cap.er.24h, 150 MG PO DAILY, (Reported) Vitamin E Acetate 400 Unit Capsule, 400 UNIT PO DAILY, (Reported) Patient Home Medication List Home Medication List Reviewed: Yes (DULCE MARIA CUEVAS) Review of Systems Review of Systems Constitutional: No chills, No diaphoresis Eyes: Denies Blindness, Denies Drainage Ears, Nose, Mouth, Throat: denies ear pain, denies ear discharge Respiratory: No cough, No dyspnea on exertion, No short of breath, No wheezing Cardiovascular: No chest pain, No palpitations Gastrointestinal: RUQ, abdominal pain; No constipation, No diarrhea; nausea, vomiting Genitourinary: No discharge, No dysuria Musculoskeletal: No back pain, No joint pain Skin: No pruritus, No rash Psychiatric/Neurological: Denies Cognitive Dysfunction, Denies Headache, Denies Numbness (DULCE MARIA CUEVAS) Past Zjaukpp-Wgfjig-Exhyox Hx Patient Social History Alcohol Use: Denies Use Recreational Drug Use: No Smoking Status: Never a Smoker (DULCE MARIA CUEVAS) Immunizations Up To Date Tetanus Booster (TDap): Less than 5yrs (DULCE MARIA CUEVAS) Seasonal Allergies Seasonal Allergies: No (DULCE MARIA CUEVAS) Past Medical History Surgeries: Yes (4 VESSEL CABG 2005; CARDIAC STENTS X 8) Cardiac, CABG, Coronary Stent Respiratory: Yes (CPAP) Sleep Apnea, COPD Currently Using CPAP: No Cardiac: Yes Coronary Artery Disease, Heart Attack, High Cholesterol, Hypertension Neurological: Yes (3 PINCHED NERVES ON NECK ON LEFT SIDE; PERIPHERAL NEUROPATHY ) Neuropathy, Vertigo Reproductive Disorders: No Genitourinary: No Gastrointestinal: No Musculoskeletal: Yes (CHRONIC NECK PAIN ) Degenerate Disk Disease, Arthritis, Chronic Back Pain Endocrine: Yes (INSULIN + PILLS) Diabetes, Insulin dep HEENT: No Loss of Vision: Right Cancer: No Psychosocial: No Integumentary: No Blood Disorders: No (DULCE MARIA CUEVAS) Family Medical History Cardiovascular disease 19 FATHER, Onset:Unknown FH: breast cancer G8 SISTER, Onset:50's - 60 FH: ovarian cancer 19 MOTHER, Onset:40's - 50 No Family History of: Cancer of mouth Physical Exam Vital Signs Vital Signs - First Documented 04/05/18 04/05/18 15:44 19:44 Temp 100.8 Pulse 89 Resp 20 B/P (MAP) 153/88 (109) Pulse Ox 96 O2 Delivery Room Air (JAMES HAIRSTON MD) Vital Signs Capillary Refill : (DULCE MARIA CUEVAS) Height, Weight, BMI Height: 6'11.00" Weight: 342lbs. 0.0oz. 155.667953ar; 48.8 BMI Method:Stated General Appearance: mild distress, obese (morbidly obese BMI greater than 30) HEENT: PERRL/EOMI, normal ENT inspection, TMs normal, pharynx normal, other ( right pinna is tender to palpation and erythematous.) Neck: non-tender, full range of motion, normal inspection Respiratory: chest non-tender, lungs clear, normal breath sounds, no respiratory distress, no accessory muscle use Cardiovascular: normal peripheral pulses, regular rate, rhythm Peripheral Pulses: 2+ Radial Pulses (R), 2+ Radial Pulses (L) Gastrointestinal: normal bowel sounds, soft, tenderness (right upper quadrant tenderness Barahona sign negative.) Neurologic/Psychiatric: alert, normal mood/affect, oriented x 3 Crainal Nerves: normal hearing, normal speech, PERRL, other (HINTS Negative) Coordination/Gait: normal finger to nose, normal gait Motor/Sensory: no motor deficit, no sensory deficit, no pronator drift Skin: other (multiple bruises over his body in various states of healing. There is also what appears to be tinea versicolor all over his torso.) (DULCE MARIA CUEVAS) Focused Exam Lactate Level 04/05/18 15:55: Lactic Acid Level 2.34*H 04/05/18 17:55: Lactic Acid Level 1.68 (JAMES HAIRSTON MD) Lactic Acid Level Laboratory Tests Test 04/05/18 15:55 04/05/18 17:55 Lactic Acid Level 2.34 MMOL/L (0.50-2.00) *H 1.68 MMOL/L (0.50-2.00) (JAMES HAIRSTON MD) Progress/Results/Core Measures Results/Orders Lab Results Laboratory Tests Test 04/05/18 15:55 04/05/18 17:55 04/05/18 18:58 Range/Units White Blood Count 12.3 H 4.3-11.0 10^3/uL Red Blood Count 4.35 4.35-5.85 10^6/uL Hemoglobin 13.7 13.3-17.7 G/DL Hematocrit 38 L 40-54 % Mean Corpuscular Volume 87 80-99 FL Mean Corpuscular Hemoglobin 32 25-34 PG Mean Corpuscular Hemoglobin Concent 36 32-36 G/DL Red Cell Distribution Width 15.2 H 10.0-14.5 % Platelet Count 151 130-400 10^3/uL Mean Platelet Volume 10.6 H 7.4-10.4 FL Neutrophils (%) (Auto) 82 H 42-75 % Lymphocytes (%) (Auto) 9 L 12-44 % Monocytes (%) (Auto) 9 0-12 % Eosinophils (%) (Auto) 0 0-10 % Basophils (%) (Auto) 0 0-10 % Neutrophils # (Auto) 10.2 H 1.8-7.8 X 10^3 Lymphocytes # (Auto) 1.1 1.0-4.0 X 10^3 Monocytes # (Auto) 1.1 H 0.0-1.0 X 10^3 Eosinophils # (Auto) 0.1 0.0-0.3 10^3/uL Basophils # (Auto) 0.0 0.0-0.1 10^3/uL Prothrombin Time 14.1 12.2-14.7 SEC INR Comment 1.1 0.8-1.4 Activated Partial Thromboplast Time 27 24-35 SEC Sodium Level 132 L 135-145 MMOL/L Potassium Level 4.1 3.6-5.0 MMOL/L Chloride Level 100 98-107 MMOL/L Carbon Dioxide Level 23 21-32 MMOL/L Anion Gap 9 5-14 MMOL/L Blood Urea Nitrogen 29 H 7-18 MG/DL Creatinine 1.18 0.60-1.30 MG/DL Estimat Glomerular Filtration Rate > 60 BUN/Creatinine Ratio 25 Glucose Level 270 H 70-105 MG/DL Lactic Acid Level 2.34 *H 1.68 0.50-2.00 MMOL/L Calcium Level 9.5 8.5-10.1 MG/DL Corrected Calcium 9.3 8.5-10.1 MG/DL Total Bilirubin 1.2 H 0.1-1.0 MG/DL Aspartate Amino Transf (AST/SGOT) 15 5-34 U/L Alanine Aminotransferase (ALT/SGPT) 28 0-55 U/L Alkaline Phosphatase 76 40-136 U/L C-Reactive Protein High Sensitivity 4.06 H 0.00-0.50 MG/DL Total Protein 7.0 6.4-8.2 GM/DL Albumin 4.2 3.2-4.5 GM/DL Lipase 35 8-78 U/L Urine Color YELLOW Urine Clarity CLEAR Urine pH 5 5-9 Urine Specific Kaiser 1.020 1.016-1.022 Urine Protein 3+ H NEGATIVE Urine Glucose (UA) 4+ H NEGATIVE Urine Ketones 1+ H NEGATIVE Urine Nitrite NEGATIVE NEGATIVE Urine Bilirubin NEGATIVE NEGATIVE Urine Urobilinogen NORMAL NORMAL MG/DL Urine Leukocyte Esterase 1+ H NEGATIVE Urine RBC (Auto) NEGATIVE NEGATIVE Urine RBC NONE /HPF Urine WBC 0-2 /HPF Urine Squamous Epithelial Cells 0-2 /HPF Urine Crystals PRESENT H /LPF Urine Amorphous Sediment MOD FRANCIS URATES H /LPF Urine Bacteria NONE /HPF Urine Casts NONE /LPF Urine Mucus NEGATIVE /LPF Urine Culture Indicated NO (JAMES HAIRSTON MD) My Orders Orders - JAMES HAIRSTON MD Ct Abdomen/Pelvis W (04/05/18 19:28) Iohexol Injection (Omnipaque 350 Mg/Ml 1 (04/05/18 19:45) Hs C Reactive Protein (04/05/18 21:36) Ceftriaxone For Iv Use (Rocephin For I (04/05/18 22:30) Ketorolac Injection (Toradol Injection) (04/05/18 22:45) (JAMES HAIRSTON MD) Medications Given in ED Current Medications Medications Dose Ordered Sig/Perico Route Start Time Stop Time Status Last Admin Dose Admin Ceftriaxone Sodium 2000 mg/ Sodium Chloride 50 ml @ 100 mls/hr ONCE ONCE IV 04/05/18 22:30 04/05/18 22:59 DC 04/05/18 22:42 100 MLS/HR Iohexol 150 ml ONCE ONCE IV 04/05/18 19:45 04/05/18 19:46 DC 04/05/18 20:21 150 ML Ketorolac Tromethamine 15 mg ONCE ONCE IVP 04/05/18 22:45 04/05/18 22:46 DC 04/05/18 22:57 15 MG (JAMES HAIRSTON MD) Vital Signs/I&O 04/05/18 04/05/18 04/05/18 04/05/18 15:44 19:44 21:07 23:13 Temp 100.8 99.1 Pulse 89 84 80 Resp 20 16 14 16 B/P (MAP) 153/88 (109) 148/81 (103) 117/56 (76) 142/79 (100) Pulse Ox 96 95 95 O2 Delivery Room Air Room Air Room Air Room Air 04/06/18 00:00 Intake Total 1650 ml Balance 1650 ml (JAMES HAIRSTON MD) Progress Progress Note #1: Time: 16:05 Progress Note Patient has 100.8 fever with a heart rate of 91. We'll do a septic workup. Obtain urine and labs didn't IV give him a liter and a half fluids which would be 20 mils per kilogram for ideal body weight. Blood pressure is very good. We have chosen Zosyn as we don't have any focal source of infection yet. We'll going to image his head next and she's having some pain there. I talked about imaging his abdomen with a CT scan since he's having tenderness there and he declined. We'll get a lipase as well. Progress Note #2: Time: 18:51 Progress Note Patient's febrile with elevated lactate, septic source of infection not ascertained yet. We'll try to get the patient produce urine however his trended lactate has improved. Is also possible he just had a lot of nausea and vomiting and has become very dehydrated fluid contracted. Progress Note #3: Time: 19:33 Progress Note Turned over care to Dr. Reynolds. Discussed the case and the suspicion of infection given the fever, increased white count, increased urine and lactate. We have not yet located a source. Discussed with patient and he is finally allowing us to get a CT of his abdomen. We are going to turn the patient over to my partner and he will obtain CT and further examination and then even if we don't find source of infection we'll continue antibiotics hospital for IV fluids on observation status. (DULCE MARIA CUEVAS) Progress Note : Progress Note CT scan was reviewed. Patient had cholelithiasis without cholecystitis. No other pathology was identified. Patient was reassessed and history was reviewed. Patient has had worsening vertigo over the past month to the extent that he is not functional at home. Over the past 2 days he has developed headache and neck pain. In the context of his fever of unknown origin and these symptoms, there was new concern for possible meningitis. I discussed lumbar puncture with the patient and family. Unfortunately, lumbar puncture cannot be performed due to Plavix and aspirin use. Patient was empirically treated with Rocephin 2 g IV. Toradol was given for headache. (JAMES HAIRSTON MD) Diagnostic Imaging Diagonstic Imaging: Xray Plain Films/CT/US/NM/MRI: chest (1v) Comments VIA [facility]. [place], [place] NAME: PAULYAYAELMO [facility] REC#: [id number] PT STATUS: REG ER : 1950 PHYSICIAN: DULCE MARIA CUEVAS MD ADMIT DATE: 04/05/18/ER Draft Date of Exam:04/05/18 CHEST 1 VIEW, AP/PA ONLY INDICATION: Nausea and vomiting. TIME OF EXAM: 04:37 p.m. Correlation is made with prior study from 02/09/2018. FINDINGS: Changes of median sternotomy and CABG are noted. Heart size is stable. There is no infiltrate or failure. The pulmonary vascularity is normal. No effusion or pneumothorax is seen. IMPRESSION: No acute cardiopulmonary process is detected. Dictated on workstation # [id number] Dict: 04/05/18 1650 Trans: 04/05/18 1653 [id number] Interpreted by: AUGIE FERRARI MD Electronically signed by: Reviewed: Reviewed by Me Diagonstic Imaging: CT Plain Films/CT/US/NM/MRI: c-spine, head Comments VIA [place], [place] NAME: ELMO GARCIA [facility] REC#: [id number] PT STATUS: REG ER : 1950 PHYSICIAN: DULCE MARIA CUEVAS MD ADMIT DATE: 04/05/18/ER Draft Date of Exam:04/05/18 CT HEAD/CERVICAL SPINE WO PROCEDURE: CT head and CT cervical spine without contrast. TECHNIQUE: Multiple contiguous axial images were obtained through the brain and cervical spine without the use of intravenous contrast. Sagittal and coronal reformations through the cervical spine were then performed. INDICATION: Fall with head and neck pain. Comparison is made with prior head CT from 02/09/2018. CT head: FINDINGS: Ventricles and sulci are stable. No sulcal effacement is seen. There is no midline shift. No acute intra-axial or extra-axial hemorrhage is detected. Cisterns are patent. Visualized paranasal sinuses are clear. IMPRESSION: No acute intracranial process is detected. CT cervical spine: FINDINGS: Curvature of the cervical spine is normal. There is multilevel degenerative disc disease, greatest at C5-C6 and C6-C7 levels, with disc space narrowing and marginal spurring. The prevertebral tissues are normal. No fractures are seen. Odontoid appears intact. There is multilevel facet arthropathy. IMPRESSION: Cervical spondylosis. No acute bony abnormality is detected. Dictated on workstation # [id number] Dict: 04/05/18 1730 Trans: 04/05/18 1735 [facility] [id number] Interpreted by: AUGIE FERRARI MD Electronically signed by: Reviewed: Reviewed by Me (DULCE MARIA CUEVAS) Diagonstic Imaging: CT Plain Films/CT/US/NM/MRI: abdomen, pelvis Comments CT abdomen and pelvis viewed by me and report reviewed. See report below: NAME: ELMO GARCIA Maggy [facility] REC#: [id number] PT STATUS: REG ER : 1950 PHYSICIAN: JAMES HAIRSTON MD ADMIT DATE: 04/05/18/ER Draft Date of Exam:04/05/18 CT ABDOMEN/PELVIS W PROCEDURE: CT abdomen and pelvis with contrast. TECHNIQUE: Multiple contiguous axial images were obtained through the abdomen and pelvis after administration of intravenous contrast. INDICATION: Fall. Bruising to right abdomen. Abdominal tenderness. COMPARISON: None. FINDINGS: Lung bases are clear. Cholelithiasis without secondary findings of cholecystitis. The liver, pancreas, spleen, adrenals, right kidney, collecting systems and bladder are negative. Simple cyst in the left kidney measures approximately 1.0 cm. The appendix is not identified and may be surgically absent. No suspicious inflammatory changes in the region of the cecum. Moderate atherosclerotic calcifications including a normal caliber abdominal aorta. No lymphadenopathy. No free intraperitoneal air or fluid. No evidence of bowel obstruction or inflammation. There is a large amount of stool throughout the colon consistent with constipation. There is a small amount of edema and gas in the subcutaneous tissues of the anterior abdominal wall on the right. No acute osseous findings. Chronic appearing fracture of the distal sacrum. IMPRESSION: 1. No acute CT findings in the abdomen or pelvis. 2. Cholelithiasis without secondary findings of cholecystitis. 3. Small contusion and gas in the subcutaneous tissues of the anterior abdominal wall on the right consistent with reported contusion. 4. Stool throughout the colon compatible with constipation. Dictated on workstation # [id number] Dict: 04/05/182037 Trans: 04/05/182047 [facility] [id number] Interpreted by: MONIE LEMA MD (JAMES HAIRSTON MD) Transfer of Care Time: 19:32 Care transferred to: Dr Reynolds (DULCE MARIA CUEVAS) Departure Communication (Admissions) Time/Spoke to Admitting Phy: 23:00 Dr. Winkler (JAMES HAIRSTON MD) Impression Primary Impression: Fever of unknown origin Additional Impressions: Nausea & vomiting Qualified Codes: R11.2 - Nausea with vomiting, unspecified Vertigo Headache Qualified Codes: R51 - Headache Falls Qualified Codes: W19.XXXA - Unspecified fall, initial encounter Right upper quadrant pain Disposition: ADMITTED INPATIENT Condition: Improved Admissions Decision to Admit Reason: Admit from ER (General) Decision to Admit/Date: Apr 05, 2018 Time/Decision to Admit Time: 19:30 (JAMES HAIRSTON MD) Departure-Patient Inst. Referrals: GIL KAHN DO (PCP/Family) Primary Care Physician DULCE MARIA CUEVAS Apr 05, 2018 16:06 JAMES HAIRSTON MD Apr 05, 2018 21:24
[2018-04-05 16:20] LABS: INR 1.1 (0.8-1.4); PROTHROMBIN TIME PATIENT 14.1 SEC (12.2-14.7)
[2018-04-05 16:27] LABS: ALANINE AMINOTRANSFERASE 28 U/L (0-55); ALBUMIN 4.2 GM/DL (3.2-4.5); ALKALINE PHOSPHATASE 76 U/L (40-136); BILIRUBIN,TOTAL 1.2 MG/DL (0.1-1.0); BUN/CREATININE RATIO 25; CALCIUM 9.5 MG/DL (8.5-10.1); CARBON DIOXIDE 23 MMOL/L (21-32); CHLORIDE 100 MMOL/L (98-107); CREATININE SERUM 1.18 MG/DL (0.60-1.30); GFR ESTIMATED > 60; GLUCOSE 270 MG/DL (70-105); POTASSIUM 4.1 MMOL/L (3.6-5.0); SODIUM 132 MMOL/L (135-145)
--- NOTE | 2018-04-05 16:54 | Diagnostic Imaging Report ---
INDICATION: Nausea and vomiting. TIME OF EXAM: 04:37 p.m. Correlation is made with prior study from 02/09/2018. FINDINGS: Changes of median sternotomy and CABG are noted. Heart size is stable. There is no infiltrate or failure. The pulmonary vascularity is normal. No effusion or pneumothorax is seen. IMPRESSION: No acute cardiopulmonary process is detected. Dictated by: Dictated on workstation # [id number]
--- NOTE | 2018-04-05 17:36 | Diagnostic Imaging Report ---
PROCEDURE: CT head and CT cervical spine without contrast. TECHNIQUE: Multiple contiguous axial images were obtained through the brain and cervical spine without the use of intravenous contrast. Sagittal and coronal reformations through the cervical spine were then performed. INDICATION: Fall with head and neck pain. Comparison is made with prior head CT from 02/09/2018. CT head: FINDINGS: Ventricles and sulci are stable. No sulcal effacement is seen. There is no midline shift. No acute intra-axial or extra-axial hemorrhage is detected. Cisterns are patent. Visualized paranasal sinuses are clear. IMPRESSION: No acute intracranial process is detected. CT cervical spine: FINDINGS: Curvature of the cervical spine is normal. There is multilevel degenerative disc disease, greatest at C5-C6 and C6-C7 levels, with disc space narrowing and marginal spurring. The prevertebral tissues are normal. No fractures are seen. Odontoid appears intact. There is multilevel facet arthropathy. IMPRESSION: Cervical spondylosis. No acute bony abnormality is detected. Dictated by: Dictated on workstation # [id number]
[2018-04-05 19:09] LABS: BILIRUBIN,URINE NEGATIVE (NEGATIVE); CLARITY,URINE CLEAR; COLOR,URINE YELLOW; GLUCOSE, URINE (UA) 4+ (NEGATIVE); KETONES,URINE 1+ (NEGATIVE); LEUKOCYTE ESTERASE ,URINE 1+ (NEGATIVE); NITRITE,URINE NEGATIVE (NEGATIVE); PH,URINE 5 (5-9); PROTEIN,URINE 3+ (NEGATIVE); UROBILINOGEN,URINE NORMAL (NORMAL)
[2018-04-05 19:16] LABS: AMORPHOUS SEDIMENT,UR MOD AMOR URATES /LPF; SQUAMOUS EPITHELIAL CELL,UR 0-2 /HPF; WBC,URINE 0-2 /HPF
[2018-04-05 19:44] VITALS: BP 148/81
[2018-04-05] MEDS ORDERED: IOHEXOL 350 MG/ML 150 ML (OMNIPAQUE 350) VIAL IV ONE (19:45)
--- NOTE | 2018-04-05 20:49 | Diagnostic Imaging Report ---
PROCEDURE: CT abdomen and pelvis with contrast. TECHNIQUE: Multiple contiguous axial images were obtained through the abdomen and pelvis after administration of intravenous contrast. INDICATION: Fall. Bruising to right abdomen. Abdominal tenderness. COMPARISON: None. FINDINGS: Lung bases are clear. Cholelithiasis without secondary findings of cholecystitis. The liver, pancreas, spleen, adrenals, right kidney, collecting systems and bladder are negative. Simple cyst in the left kidney measures approximately 1.0 cm. The appendix is not identified and may be surgically absent. No suspicious inflammatory changes in the region of the cecum. Moderate atherosclerotic calcifications including a normal caliber abdominal aorta. No lymphadenopathy. No free intraperitoneal air or fluid. No evidence of bowel obstruction or inflammation. There is a large amount of stool throughout the colon consistent with constipation. There is a small amount of edema and gas in the subcutaneous tissues of the anterior abdominal wall on the right. No acute osseous findings. Chronic appearing fracture of the distal sacrum. IMPRESSION: 1. No acute CT findings in the abdomen or pelvis. 2. Cholelithiasis without secondary findings of cholecystitis. 3. Small contusion and gas in the subcutaneous tissues of the anterior abdominal wall on the right consistent with reported contusion. 4. Stool throughout the colon compatible with constipation. Dictated by: Dictated on workstation # [id number]
--- OUTSIDE RECORDS SUMMARY | 2018-04-05 21:04 | XMS REPORT | Clinical Summary ---
Author Author [facility] Organization [facility] Address Unknown Phone Unavailable Care Team Providers Care Hims Coder Name Role Phone Kiel Mayer MD Unavailable Unavailable Chayo Strong APRN Unavailable Unavailable John Dumont MD Unavailable Valerie Cole PA-C Unavailable Irene Fontenot Unavailable Unavailable Carol Alford Unavailable Tyler Bello MD PCP Source Comments Some departments are not documenting in the electronic medical record. If you do not see the information that you expected, contact Release of Information in the Health Information Management department at [phone] for further assistance in locating additional records.[facility] Allergies Active Allergy Reactions Severity Noted Date Comments Rosuvastatin UNKNOWN 05/13/2011 Niacin UNKNOWN 05/13/2011 Fenofibrate Micronized UNKNOWN 05/13/2011 Current Medications Prescription Sig. Disp. Refills Start End Date Status Date valsartan (DIOVAN) 320 mg Take 320 mg by mouth Active PO tablet daily. clopidogrel (PLAVIX) 75 Take 75 mg by mouth Active mg PO daily. carvedilol (COREG) 12.5 Take 12.5 mg by mouth Active mg PO tablet twice daily with meals. venlafaxine XR (EFFEXOR Take 150 mg by mouth Active XR) 150 mg PO capsule daily. gabapentin (NEURONTIN) Take 300 mg by mouth Active 300 mg PO capsule twice daily. insulin lispro(+) Inject 25 Units into Active (HUMALOG) 100 unit/mL SC area(s) as directed three injection times daily with meals. With sliding scale. Up to 100 units per day. blood sugar diagnostic 1 Strip by Test route Active (ONE TOUCH TEST) MISC before meals and at test strip bedtime. aspirin EC 81 mg tablet Take 81 mg by mouth Active daily. ASCORBATE CALCIUM Take 2,000 mg by mouth Active (VITAMIN C PO) daily. INSULIN Inject 90 Units into Active GLARGINE,HUM.REC.ANLOG area(s) as directed at (LANTUS SC) bedtime daily. INSULIN LISPRO (HUMALOG Inject into area(s) as Active SC) directed. 40 am + 25 noon + 40 pm and sliding scale DOCOSAHEXANOIC ACID/EPA Take 8,000 mg by mouth Active (FISH OIL PO) daily. MAGNESIUM PO Take 400 mg by mouth Active daily. coQ10 (ubiquinol) 100 mg Take by mouth daily. Active cap atorvastatin (LIPITOR) 40 Take 40 mg by mouth every Active mg tablet 7 days. And titrated as tolerated until 40 mg/qd allopurinol (ZYLOPRIM) Take 1 Tab by mouth 90 Tab 3 10/12/19 Active 100 mg tablet daily. 13 CHLORTHALIDONE PO Take by mouth daily. Active gemfibrozil (LOPID) 600 Take 600 mg by mouth Active mg tablet daily. isosorbide mononitrate SR Take 60 mg by mouth every Active (IMDUR) 60 mg tablet morning. CALCIUM CARBONATE/VITAMIN Take by mouth daily. Active D3 (CALCIUM + D PO) CALCIUM CARBONATE/VITAMIN Take by mouth daily. Active D3 (VITAMIN D-3 PO) ibuprofen (MOTRIN) 400 mg Take 400 mg by mouth Active tablet every 6 hours as needed. Active Problems Problem Noted Date Peripheral vertigo, unspecified 12/09/2012 Asymmetric SNHL (sensorineural hearing loss) 12/09/2012 Central vestibular vertigo 12/09/2012 Diabetes mellitus type 2 with complications, uncontrolled ([facility]) 07/15/2011 Overview: Diagnosed around 2004, but thinks he had diabetes as early as 1999. Morbidly obese ([facility]) 07/15/2011 CAD (coronary artery disease) 07/15/2011 Overview: Multiple stent placements, with the last ones being done 2010. Dyslipidemia 07/15/2011 HTN (hypertension) 07/15/2011 Family History Medical History Relation Name Comments Heart Attack Father Heart Disease Father Hypertension Father Cancer Mother Circulatory problem Mother Diabetes Son Relation Name Status Comments Father Maternal Grandfather Maternal Grandmother Mother Paternal Grandfather Paternal Grandmother Sister Alive Son Alive Social History Tobacco Use Types Packs/Day Years Used Date Former Smoker Cigarettes 38 Quit: 07/05/2006 Smokeless Tobacco: Former Chew Quit: User 08/02/2002 Tobacco Cessation: Counseling Given: No Comments: used 'chew' for 25 years Alcohol Use Drinks/Week oz/Week Comments No no longer drinks Sex Assigned at Date Recorded Not on file Last Filed Vital Signs Vital Sign Reading Time Taken Blood Pressure 133/79 12/27/2012 2:35 PM CDT Pulse 71 12/27/2012 2:35 PM CDT Temperature - - Respiratory Rate 19 05/13/2011 10:29 AM CDT Oxygen Saturation - - Inhaled Oxygen - - Concentration Weight 160 kg (352 lb 12.8 oz) 12/27/2012 2:35 PM CDT Height 182.9 cm (6') 12/27/2012 2:35 PM CDT Body Mass Index 47.85 12/27/2012 2:35 PM CDT Plan of Treatment Health Maintenance Due Date Last Done Comments HEPATITIS C SCREENING 1952 PHYSICAL (COMPREHENSIVE) 10/04/1959 EXAM PERTUSSIS VACCINE 10/04/1963 HIV SCREENING 10/04/1967 TETANUS VACCINE 1969 DILATED EYE EXAM 1970 FOOT EXAM 1970 MICROALBUMIN 1970 COLORECTAL CANCER 2002 SCREENING SHINGLES RECOMBINANT 2002 VACCINE (1 of 2) HBA1C 04/12/2013 10/10/2012, 09/15/2011, 07/15/2011, Additional history exists ABDOMINAL AORTIC ANEURYSM 2017 SCREENING PNEUMONIA (PCV13/PPSV23) 2017 VACCINES (1 of 2 - PCV13) INFLUENZA VACCINE 05/02/2018 05/13/2011 (Declined) Results Not on filefrom Last 3 Months
--- OUTSIDE RECORDS SUMMARY | 2018-04-05 21:06 | XMS REPORT | Continuity of Care Document ---
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 OBSTRUCTIVE PULMONARY DISEASE, U 02/09/2018 NORBERTO CHAO MISAEL Asiya Ot M25.511 PAIN IN RIGHT SHOULDER 02/09/2018 NORBERTO CHAO MISAEL Asiya Ot M54.2 CERVICALGIA 02/09/2018 NORBERTO CHAO MISAEL Asiya Ot N28.9 DISORDER OF KIDNEY AND URETER, UNSPECIFI 02/09/2018 NORBERTO CHAO MISAEL Asiya Ot R10.31 RIGHT LOWER QUADRANT PAIN 02/09/2018 NORBERTO CHAO MISAEL Asiya Ot R55 SYNCOPE AND COLLAPSE 02/09/2018 NORBERTO CHAO MISAEL Asiya Ot Z79.02 DETENTION (CURRENT) USE OF ANTITHROMBOTI 02/09/2018 NORBERTO CHAO MISAEL Asiya Ot 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 02/09/2018 NORBERTO CHAO MISAEL Asiya Ot Z79.82 DETENTION (CURRENT) USE OF ASPIRIN 02/09/2018 NORBERTO CHAO MISAEL Asiya Ot Z80.3 FAMILY HISTORY OF MALIGNANT NEOPLASM OF 02/09/2018 NORBERTO CHAO MISAEL Asiya Ot Z80.41 FAMILY HISTORY OF MALIGNANT NEOPLASM OF 02/09/2018 NORBERTO CHAO MISAEL Asiya Ot Z82.49 FAMILY HX OF ISCHEM HEART DIS AND OTH DI 02/09/2018 NORBERTO CHAO MISAEL Asiya Ot Z87.891 PERSONAL HISTORY OF NICOTINE DEPENDENCE 02/09/2018 NORBERTO CHAO MISAEL Asiya Ot Z88.8 ALLERGY STATUS TO OT DRUG/MEDS/BIOL SUB 02/09/2018 NORBERTO CHAO MISAEL Asiya Ot Z95.1 PRESENCE OF AORTOCORONARY BYPASS GRAFT 02/09/2018 MISAEL THORNTON DO Ot Z95.5 PRESENCE OF CORONARY ANGIOPLASTY IMPLANT 02/25/2018 NORBERTO CHAO MISAEL K Ot E11.9 TYPE 2 DIABETES MELLITUS WITHOUT COMPLIC 02/25/2018 NORBERTO MISAEL K Ot E78.00 PURE HYPERCHOLESTEROLEMIA, UNSPECIFIED 02/25/2018 EDILMA THORNTON DOA K Ot G47.30 SLEEP APNEA, UNSPECIFIED 02/25/2018 NORBERTO CHAO MISAEL Braden Ot I10 ESSENTIAL (PRIMARY) HYPERTENSION 02/25/2018 NORBERTO CHAO MISAEL Braden Ot I25.10 ATHSCL HEART DISEASE OF [place] CORONARY 02/25/2018 NORBERTO CHAO MISAEL Braden Ot I25.2 OLD MYOCARDIAL INFARCTION 02/25/2018 NORBERTO CHAO MISAEL Braden Ot J44.9 CHRONIC OBSTRUCTIVE PULMONARY DISEASE, U 02/25/2018 NORBERTO CHAO MISAEL Braden Ot M25.511 PAIN IN RIGHT SHOULDER 02/25/2018 NORBERTO CHAO MISAEL Asiya Ot M54.2 CERVICALGIA 02/25/2018 NORBERTO CHAO MISAEL Braden Ot N28.9 DISORDER OF KIDNEY AND URETER, UNSPECIFI 02/25/2018 NORBERTO CHAO MISAEL Braden Ot R10.31 RIGHT LOWER QUADRANT PAIN 02/25/2018 NORBERTO CHAO MISAEL Braden Ot R55 SYNCOPE AND COLLAPSE 02/25/2018 NORBERTO CHAO MISAEL Braden Ot Z79.02 DETENTION (CURRENT) USE OF ANTITHROMBOTI 02/25/2018 NORBERTO CHAO MISAEL Asiya Ot Z79.4 DETENTION (CURRENT) USE OF INSULIN 02/25/2018 NORBERTO CHAO MISAEL Asiya Ot Z79.82 DETENTION (CURRENT) USE OF ASPIRIN 02/25/2018 NORBERTO CHAO MISAEL Asiya Ot Z80.3 FAMILY HISTORY OF MALIGNANT NEOPLASM OF 02/25/2018 NORBERTO CHAO MISAEL Braden Ot Z80.41 FAMILY HISTORY OF MALIGNANT NEOPLASM OF 02/25/2018 NORBERTO CHAO MISAEL Braden Ot Z82.49 FAMILY HX OF ISCHEM HEART DIS AND OTH DI 02/25/2018 NORBERTO CHAO MISAEL Braden Ot Z87.891 PERSONAL HISTORY OF NICOTINE DEPENDENCE 02/25/2018 NORBERTO CHAO MISAEL Braden Ot Z88.8 ALLERGY STATUS TO OTH DRUG/MEDS/BIOL SUB 02/25/2018 NORBERTO CHAO MISAEL Asiya Ot Z95.1 PRESENCE OF AORTOCORONARY BYPASS GRAFT 02/25/2018 NORBERTO CHAO MISAEL K Ot Z95.5 PRESENCE OF CORONARY ANGIOPLASTY IMPLANT Procedures Code Description Performed By Performed On 86.04 04/29/2012 Results Test Result Range Capillary blood glucose measurement by glucometer (mass/volume) - 04/01/16 10: 22 Capillary blood glucose measurement by glucometer (mass/volume) 223 mg/dL 70-110 Capillary blood glucose measurement by glucometer (mass/volume) - 05/06/16 08: 44 Capillary blood glucose measurement by glucometer (mass/volume) 316 mg/dL 70-110 Capillary blood glucose measurement by glucometer (mass/volume) - 05/27/16 08: 33 Capillary blood glucose measurement by glucometer (mass/volume) 325 mg/dL 70-110 Complete blood count (CBC) with automated white blood cell (WBC) differential - 11/10/16 09:42 Blood leukocytes automated count (number/volume) 13.5 10*3/uL 4.3-11.0 Blood erythrocytes automated count (number/volume) 4.28 10*6/uL 4.35-5.85 Venous blood hemoglobin measurement (mass/volume) 12.6 g/dL 13.3-17.7 Blood hematocrit (volume fraction) 37 % 40-54 Automated erythrocyte mean corpuscular volume 86 [foz_us] 80-99 Automated erythrocyte mean corpuscular hemoglobin (mass per erythrocyte) 29 pg 25-34 Automated erythrocyte mean corpuscular hemoglobin concentration measurement ( mass/volume) 34 g/dL 32-36 Automated erythrocyte distribution width ratio 15.5 % 10.0-14.5 Automated blood platelet count (count/volume) 114 10*3/uL 130-400 Automated blood platelet mean volume measurement 10.9 [foz_us] 7.4-10.4 Automated blood neutrophils/100 leukocytes 90 % 42-75 Automated blood lymphocytes/100 leukocytes 4 % 12-44 Blood monocytes/100 leukocytes 6 % 0-12 Automated blood eosinophils/100 leukocytes 0 % 0-10 Automated blood basophils/100 leukocytes 0 % 0-10 Blood neutrophils automated count (number/volume) 12.2 10*3 1.8-7.8 Blood lymphocytes automated count (number/volume) 0.5 10*3 1.0-4.0 Blood monocytes automated count (number/volume) 0.8 10*3 0.0-1.0 Automated eosinophil count 0.0 10*3/uL 0.0-0.3 Automated blood basophil count (count/volume) 0.0 10*3/uL 0.0-0.1 Blood lactic acid measurement (moles/volume) - 11/10/16 09:42 Blood lactic acid measurement (moles/volume) 1.47 mmol/L 0.50-2.00 PT panel in platelet poor plasma by coagulation assay - 11/10/16 09:42 Prothrombin time (PT) in platelet poor plasma by coagulation assay 14.4 s 12.2-14.7 INR in platelet poor plasma or blood by coagulation assay 1.2 0.8-1.4 Activated partial thromboplastin time (aPTT) in platelet poor plasma bycoagulation assay - 11/10/16 09:42 Activated partial thromboplastin time (aPTT) in platelet poor plasma bycoagulation assay 27 s 24-35 Comprehensive metabolic panel - 11/10/16 09:42 Serum or plasma sodium measurement (moles/volume) 133 mmol/L 135-145 Serum or plasma potassium measurement (moles/volume) 3.5 mmol/L 3.6-5.0 Serum or plasma chloride measurement (moles/volume) 102 mmol/L 98-107 Carbon dioxide 19 mmol/L 21-32 Serum or plasma anion gap determination (moles/volume) 12 mmol/L 5-14 Serum or plasma urea nitrogen measurement (mass/volume) 21 mg/dL 7-18 Serum or plasma creatinine measurement (mass/volume) 1.57 mg/dL 0.60-1.30 Serum or plasma urea nitrogen/creatinine mass ratio 13 NRG Serum or plasma creatinine measurement with calculation of estimated glomerular filtration rate 45 NRG Serum or plasma glucose measurement (mass/volume) 349 mg/dL 70-105 Serum or plasma calcium measurement (mass/volume) 8.0 mg/dL 8.5-10.1 Serum or plasma total bilirubin measurement (mass/volume) 1.3 mg/dL 0.1-1.0 Serum or plasma alkaline phosphatase measurement (enzymatic activity/volume) 78 U/L 40-136 Serum or plasma aspartate aminotransferase measurement (enzymatic activity/ volume) 18 U/L 5-34 Serum or plasma alanine aminotransferase measurement (enzymatic activity/volume ) 17 U/L 0-55 Serum or plasma protein measurement (mass/volume) 6.0 g/dL 6.4-8.2 Serum or plasma albumin measurement (mass/volume) 3.4 g/dL 3.2-4.5 Blood manual differential performed detection - 11/10/16 09:42 Blood monocytes/100 leukocytes 7 % NRG Manual blood segmented neutrophils/100 leukocytes 72 % NRG Blood band neutrophils/100 leukocytes 15 % NRG Manual blood lymphocytes/100 leukocytes 5 % NRG Manual eosinophils/100 leukocytes in nose 0 % NRG Manual blood basophils/100 leukocytes 0 % NRG Blood lymphocytes variant/100 leukocytes 1 % NRG Blood anisocytosis detection by light microscopy SLIGHT NRG Serum or plasma troponin i.cardiac measurement (mass/volume) - 11/10/16 09:42 Serum or plasma troponin i.cardiac measurement (mass/volume) < ng/ mL <0.30 Bacterial blood culture - 11/10/16 09:42 Bacterial blood culture NG NRG Influenza virus A and B antigen detection - 11/10/16 09:55 FLU RESULT NEGATIVE FOR INFLUENZA A AND B ANTIGENS BY IA NRG Bacterial blood culture - 11/10/16 10:13 Bacterial blood culture NG NRG Complete urinalysis with reflex to culture - 11/10/16 11:35 Urine color determination YELLOW NRG Urine clarity determination CLEAR NRG Urine pH measurement by test strip 5 5-9 Specific gravity of urine by test strip 1.030 1.016- 1.022 Urine protein assay by test strip, semi-quantitative 4+ NEGATIVE Urine glucose detection by automated test strip 4+ NEGATIVE Erythrocytes detection in urine sediment by light microscopy 2+ NEGATIVE Urine ketones detection by automated test strip 2+ NEGATIVE Urine nitrite detection by test strip NEGATIVE NEGATIVE Urine total bilirubin detection by test strip 1+ NEGATIVE Urine urobilinogen measurement by automated test strip (mass/volume) 1 mg/dL NORMAL Urine leukocyte esterase detection by dipstick 1+ NEGATIVE Automated urine sediment erythrocyte count by microscopy (number/high power field) RARE NRG Automated urine sediment leukocyte count by microscopy (number/high power field ) [HPF] NRG Bacteria detection in urine sediment by light microscopy TRACE NRG Squamous epithelial cells detection in urine sediment by light microscopy RARE NRG Crystals detection in urine sediment by light microscopy NONE NRG Casts detection in urine sediment by light microscopy PRESENT NRG Mucus detection in urine sediment by light microscopy MODERATE NRG Complete urinalysis with reflex to culture NO NRG Hyaline casts detection in urine sediment by light microscopy 5-10 NRG Other elements identification in urine sediment by light microscopy FEW SPERM NRG Capillary blood glucose measurement by glucometer (mass/volume) - 11/10/16 15: 27 Capillary blood glucose measurement by glucometer (mass/volume) 376 mg/dL 70-110 Capillary blood glucose measurement by glucometer (mass/volume) - 11/10/16 22: 03 Capillary blood glucose measurement by glucometer (mass/volume) 430 mg/dL 70-110 Capillary blood glucose measurement by glucometer (mass/volume) - 11/11/16 05: 20 Capillary blood glucose measurement by glucometer (mass/volume) 296 mg/dL 70-110 Complete blood count (CBC) with automated white blood cell (WBC) differential - 11/11/16 06:14 Blood leukocytes automated count (number/volume) 11.8 10*3/uL 4.3-11.0 Blood erythrocytes automated count (number/volume) 4.26 10*6/uL 4.35-5.85 Venous blood hemoglobin measurement (mass/volume) 12.5 g/dL 13.3-17.7 Blood hematocrit (volume fraction) 37 % 40-54 Automated erythrocyte mean corpuscular volume 86 [foz_us] 80-99 Automated erythrocyte mean corpuscular hemoglobin (mass per erythrocyte) 29 pg 25-34 Automated erythrocyte mean corpuscular hemoglobin concentration measurement ( mass/volume) 34 g/dL 32-36 Automated erythrocyte distribution width ratio 15.6 % 10.0-14.5 Automated blood platelet count (count/volume) 121 10*3/uL 130-400 Automated blood platelet mean volume measurement 10.8 [foz_us] 7.4-10.4 Automated blood neutrophils/100 leukocytes 82 % 42-75 Automated blood lymphocytes/100 leukocytes 9 % 12-44 Blood monocytes/100 leukocytes 8 % 0-12 Automated blood eosinophils/100 leukocytes 0 % 0-10 Automated blood basophils/100 leukocytes 0 % 0-10 Blood neutrophils automated count (number/volume) 9.7 10*3 1.8-7.8 Blood lymphocytes automated count (number/volume) 1.1 10*3 1.0-4.0 Blood monocytes automated count (number/volume) 1.0 10*3 0.0-1.0 Automated eosinophil count 0.0 10*3/uL 0.0-0.3 Automated blood basophil count (count/volume) 0.0 10*3/uL 0.0-0.1 Comprehensive metabolic panel - 11/11/16 06:14 Serum or plasma sodium measurement (moles/volume) 135 mmol/L 135-145 Serum or plasma potassium measurement (moles/volume) 3.5 mmol/L 3.6-5.0 Serum or plasma chloride measurement (moles/volume) 104 mmol/L 98-107 Carbon dioxide 21 mmol/L 21-32 Serum or plasma anion gap determination (moles/volume) 10 mmol/L 5-14 Serum or plasma urea nitrogen measurement (mass/volume) 22 mg/dL 7-18 Serum or plasma creatinine measurement (mass/volume) 1.25 mg/dL 0.60-1.30 Serum or plasma urea nitrogen/creatinine mass ratio 18 NRG Serum or plasma creatinine measurement with calculation of estimated glomerular filtration rate 58 NRG Serum or plasma glucose measurement (mass/volume) 260 mg/dL 70-105 Serum or plasma calcium measurement (mass/volume) 8.5 mg/dL 8.5-10.1 Serum or plasma total bilirubin measurement (mass/volume) 0.9 mg/dL 0.1-1.0 Serum or plasma alkaline phosphatase measurement (enzymatic activity/volume) 79 U/L 40-136 Serum or plasma aspartate aminotransferase measurement (enzymatic activity/ volume) 26 U/L 5-34 Serum or plasma alanine aminotransferase measurement (enzymatic activity/volume ) 20 U/L 0-55 Serum or plasma protein measurement (mass/volume) 6.0 g/dL 6.4-8.2 Serum or plasma albumin measurement (mass/volume) 3.2 g/dL 3.2-4.5 Capillary blood glucose measurement by glucometer (mass/volume) - 11/11/16 11: 01 Capillary blood glucose measurement by glucometer (mass/volume) 344 mg/dL 70-110 Vancomycin trough - 11/11/16 15:30 Vancomycin trough 11.5 ug/mL 10.0-20.0 Capillary blood glucose measurement by glucometer (mass/volume) - 11/11/16 16: 47 Capillary blood glucose measurement by glucometer (mass/volume) 297 mg/dL 70-110 Capillary blood glucose measurement by glucometer (mass/volume) - 11/11/16 20: 59 Capillary blood glucose measurement by glucometer (mass/volume) 281 mg/dL 70-110 Complete blood count (CBC) with automated white blood cell (WBC) differential - 11/12/16 06:50 Blood leukocytes automated count (number/volume) 7.1 10*3/uL 4.3-11.0 Blood erythrocytes automated count (number/volume) 3.99 10*6/uL 4.35-5.85 Venous blood hemoglobin measurement (mass/volume) 11.7 g/dL 13.3-17.7 Blood hematocrit (volume fraction) 35 % 40-54 Automated erythrocyte mean corpuscular volume 87 [foz_us] 80-99 Automated erythrocyte mean corpuscular hemoglobin (mass per erythrocyte) 29 pg 25-34 Automated erythrocyte mean corpuscular hemoglobin concentration measurement ( mass/volume) 34 g/dL 32-36 Automated erythrocyte distribution width ratio 15.4 % 10.0-14.5 Automated blood platelet count (count/volume) 104 10*3/uL 130-400 Automated blood platelet mean volume measurement 10.7 [foz_us] 7.4-10.4 Automated blood neutrophils/100 leukocytes 71 % 42-75 Automated blood lymphocytes/100 leukocytes 18 % 12-44 Blood monocytes/100 leukocytes 10 % 0-12 Automated blood eosinophils/100 leukocytes 1 % 0-10 Automated blood basophils/100 leukocytes 0 % 0-10 Blood neutrophils automated count (number/volume) 5.0 10*3 1.8-7.8 Blood lymphocytes automated count (number/volume) 1.3 10*3 1.0-4.0 Blood monocytes automated count (number/volume) 0.7 10*3 0.0-1.0 Automated eosinophil count 0.1 10*3/uL 0.0-0.3 Automated blood basophil count (count/volume) 0.0 10*3/uL 0.0-0.1 Comprehensive metabolic panel - 11/12/16 06:50 Serum or plasma sodium measurement (moles/volume) 136 mmol/L 135-145 Serum or plasma potassium measurement (moles/volume) 3.7 mmol/L 3.6-5.0 Serum or plasma chloride measurement (moles/volume) 105 mmol/L 98-107 Carbon dioxide 20 mmol/L 21-32 Serum or plasma anion gap determination (moles/volume) 11 mmol/L 5-14 Serum or plasma urea nitrogen measurement (mass/volume) 17 mg/dL 7-18 Serum or plasma creatinine measurement (mass/volume) 1.05 mg/dL 0.60-1.30 Serum or plasma urea nitrogen/creatinine mass ratio 16 NRG Serum or plasma creatinine measurement with calculation of estimated glomerular filtration rate > NRG Serum or plasma glucose measurement (mass/volume) 229 mg/dL 70-105 Serum or plasma calcium measurement (mass/volume) 8.7 mg/dL 8.5-10.1 Serum or plasma total bilirubin measurement (mass/volume) 0.7 mg/dL 0.1-1.0 Serum or plasma alkaline phosphatase measurement (enzymatic activity/volume) 67 U/L 40-136 Serum or plasma aspartate aminotransferase measurement (enzymatic activity/ volume) 22 U/L 5-34 Serum or plasma alanine aminotransferase measurement (enzymatic activity/volume ) 20 U/L 0-55 Serum or plasma protein measurement (mass/volume) 5.9 g/dL 6.4-8.2 Serum or plasma albumin measurement (mass/volume) 3.1 g/dL 3.2-4.5 Capillary blood glucose measurement by glucometer (mass/volume) - 11/12/16 07: 02 Capillary blood glucose measurement by glucometer (mass/volume) 201 mg/dL 70-110 Capillary blood glucose measurement by glucometer (mass/volume) - 11/12/16 10: 51 Capillary blood glucose measurement by glucometer (mass/volume) 286 mg/dL 70-110 Capillary blood glucose measurement by glucometer (mass/volume) - 11/12/16 17: 04 Capillary blood glucose measurement by glucometer (mass/volume) 195 mg/dL 70-110 Capillary blood glucose measurement by glucometer (mass/volume) - 11/12/16 20: 48 Capillary blood glucose measurement by glucometer (mass/volume) 159 mg/dL 70-110 Capillary blood glucose measurement by glucometer (mass/volume) - 11/13/16 05: 29 Capillary blood glucose measurement by glucometer (mass/volume) 232 mg/dL 70-110 Complete blood count (CBC) with automated white blood cell (WBC) differential - 11/13/16 06:18 Blood leukocytes automated count (number/volume) 5.3 10*3/uL 4.3-11.0 Blood erythrocytes automated count (number/volume) 4.06 10*6/uL 4.35-5.85 Venous blood hemoglobin measurement (mass/volume) 12.1 g/dL 13.3-17.7 Blood hematocrit (volume fraction) 36 % 40-54 Automated erythrocyte mean corpuscular volume 88 [foz_us] 80-99 Automated erythrocyte mean corpuscular hemoglobin (mass per erythrocyte) 30 pg 25-34 Automated erythrocyte mean corpuscular hemoglobin concentration measurement ( mass/volume) 34 g/dL 32-36 Automated erythrocyte distribution width ratio 15.3 % 10.0-14.5 Automated blood platelet count (count/volume) 134 10*3/uL 130-400 Automated blood platelet mean volume measurement 11.1 [foz_us] 7.4-10.4 Automated blood neutrophils/100 leukocytes 67 % 42-75 Automated blood lymphocytes/100 leukocytes 24 % 12-44 Blood monocytes/100 leukocytes 8 % 0-12 Automated blood eosinophils/100 leukocytes 2 % 0-10 Automated blood basophils/100 leukocytes 0 % 0-10 Blood neutrophils automated count (number/volume) 3.5 10*3 1.8-7.8 Blood lymphocytes automated count (number/volume) 1.2 10*3 1.0-4.0 Blood monocytes automated count (number/volume) 0.4 10*3 0.0-1.0 Automated eosinophil count 0.1 10*3/uL 0.0-0.3 Automated blood basophil count (count/volume) 0.0 10*3/uL 0.0-0.1 Comprehensive metabolic panel - 11/13/16 06:18 Serum or plasma sodium measurement (moles/volume) 139 mmol/L 135-145 Serum or plasma potassium measurement (moles/volume) 4.0 mmol/L 3.6-5.0 Serum or plasma chloride measurement (moles/volume) 103 mmol/L 98-107 Carbon dioxide 25 mmol/L 21-32 Serum or plasma anion gap determination (moles/volume) 11 mmol/L 5-14 Serum or plasma urea nitrogen measurement (mass/volume) 15 mg/dL 7-18 Serum or plasma creatinine measurement (mass/volume) 1.10 mg/dL 0.60-1.30 Serum or plasma urea nitrogen/creatinine mass ratio 14 NRG Serum or plasma creatinine measurement with calculation of estimated glomerular filtration rate > NRG Serum or plasma glucose measurement (mass/volume) 224 mg/dL 70-105 Serum or plasma calcium measurement (mass/volume) 9.3 mg/dL 8.5-10.1 Serum or plasma total bilirubin measurement (mass/volume) 0.5 mg/dL 0.1-1.0 Serum or plasma alkaline phosphatase measurement (enzymatic activity/volume) 73 U/L 40-136 Serum or plasma aspartate aminotransferase measurement (enzymatic activity/ volume) 21 U/L 5-34 Serum or plasma alanine aminotransferase measurement (enzymatic activity/volume ) 23 U/L 0-55 Serum or plasma protein measurement (mass/volume) 6.5 g/dL 6.4-8.2 Serum or plasma albumin measurement (mass/volume) 3.4 g/dL 3.2-4.5 Capillary blood glucose measurement by glucometer (mass/volume) - 11/13/16 16: 03 Capillary blood glucose measurement by glucometer (mass/volume) 296 mg/dL 70-110 Capillary blood glucose measurement by glucometer (mass/volume) - 11/13/16 21: 20 Capillary blood glucose measurement by glucometer (mass/volume) 313 mg/dL 70-110 Capillary blood glucose measurement by glucometer (mass/volume) - 11/14/16 05: 27 Capillary blood glucose measurement by glucometer (mass/volume) 275 mg/dL 70-110 Capillary blood glucose measurement by glucometer (mass/volume) - 11/14/16 11: 07 Capillary blood glucose measurement by glucometer (mass/volume) 222 mg/dL 70-110 Capillary blood glucose measurement by glucometer (mass/volume) - 11/14/16 16: 15 Capillary blood glucose measurement by glucometer (mass/volume) 164 mg/dL 70-110 Capillary blood glucose measurement by glucometer (mass/volume) - 11/14/16 20: 19 Capillary blood glucose measurement by glucometer (mass/volume) 201 mg/dL 70-110 Capillary blood glucose measurement by glucometer (mass/volume) - 11/15/16 06: 22 Capillary blood glucose measurement by glucometer (mass/volume) 283 mg/dL 70-110 Capillary blood glucose measurement by glucometer (mass/volume) - 11/15/16 11: 50 Capillary blood glucose measurement by glucometer (mass/volume) 212 mg/dL 70-110 Capillary blood glucose measurement by glucometer (mass/volume) - 11/15/16 16: 24 Capillary blood glucose measurement by glucometer (mass/volume) 135 mg/dL 70-110 Capillary blood glucose measurement by glucometer (mass/volume) - 11/15/16 20: 42 Capillary blood glucose measurement by glucometer (mass/volume) 218 mg/dL 70-110 Capillary blood glucose measurement by glucometer (mass/volume) - 11/16/16 05: 16 Capillary blood glucose measurement by glucometer (mass/volume) 200 mg/dL 70-110 Capillary blood glucose measurement by glucometer (mass/volume) - 11/16/16 11: 46 Capillary blood glucose measurement by glucometer (mass/volume) 187 mg/dL 70-110 Capillary blood glucose measurement by glucometer (mass/volume) - 11/16/16 17: 10 Capillary blood glucose measurement by glucometer (mass/volume) 176 mg/dL 70-110 Capillary blood glucose measurement by glucometer (mass/volume) - 11/16/16 20: 39 Capillary blood glucose measurement by glucometer (mass/volume) 194 mg/dL 70-110 Capillary blood glucose measurement by glucometer (mass/volume) - 11/17/16 06: 17 Capillary blood glucose measurement by glucometer (mass/volume) 187 mg/dL 70-110 Capillary blood glucose measurement by glucometer (mass/volume) - 11/17/16 11: 08 Capillary blood glucose measurement by glucometer (mass/volume) 177 mg/dL 70-110 Capillary blood glucose measurement by glucometer (mass/volume) - 11/17/16 16: 02 Capillary blood glucose measurement by glucometer (mass/volume) 159 mg/dL 70-110 Capillary blood glucose measurement by glucometer (mass/volume) - 11/17/16 20: 42 Capillary blood glucose measurement by glucometer (mass/volume) 104 mg/dL 70-110 Capillary blood glucose measurement by glucometer (mass/volume) - 11/18/16 05: 00 Capillary blood glucose measurement by glucometer (mass/volume) 220 mg/dL 70-110 Capillary blood glucose measurement by glucometer (mass/volume) - 11/18/16 11: 02 Capillary blood glucose measurement by glucometer (mass/volume) 212 mg/dL 70-110 Complete blood count (CBC) with automated white blood cell (WBC) differential - 02/09/18 14:45 Blood leukocytes automated count (number/volume) 8.1 10*3/uL 4.3-11.0 Blood erythrocytes automated count (number/volume) 4.93 10*6/uL 4.35-5.85 Venous blood hemoglobin measurement (mass/volume) 15.4 g/dL 13.3-17.7 Blood hematocrit (volume fraction) 43 % 40-54 Automated erythrocyte mean corpuscular volume 87 [foz_us] 80-99 Automated erythrocyte mean corpuscular hemoglobin (mass per erythrocyte) 31 pg 25-34 Automated erythrocyte mean corpuscular hemoglobin concentration measurement ( mass/volume) 36 g/dL 32-36 Automated erythrocyte distribution width ratio 15.3 % 10.0-14.5 Automated blood platelet count (count/volume) 157 10*3/uL 130-400 Automated blood platelet mean volume measurement 10.5 [foz_us] 7.4-10.4 Automated blood neutrophils/100 leukocytes 67 % 42-75 Automated blood lymphocytes/100 leukocytes 22 % 12-44 Blood monocytes/100 leukocytes 9 % 0-12 Automated blood eosinophils/100 leukocytes 1 % 0-10 Automated blood basophils/100 leukocytes 0 % 0-10 Blood neutrophils automated count (number/volume) 5.4 10*3 1.8-7.8 Blood lymphocytes automated count (number/volume) 1.8 10*3 1.0-4.0 Blood monocytes automated count (number/volume) 0.7 10*3 0.0-1.0 Automated eosinophil count 0.1 10*3/uL 0.0-0.3 Automated blood basophil count (count/volume) 0.0 10*3/uL 0.0-0.1 Comprehensive metabolic panel - 02/09/18 14:45 Serum or plasma sodium measurement (moles/volume) 137 mmol/L 135-145 Serum or plasma potassium measurement (moles/volume) 4.1 mmol/L 3.6-5.0 Serum or plasma chloride measurement (moles/volume) 103 mmol/L 98-107 Carbon dioxide 20 mmol/L 21-32 Serum or plasma anion gap determination (moles/volume) 14 mmol/L 5-14 Serum or plasma urea nitrogen measurement (mass/volume) 22 mg/dL 7-18 Serum or plasma creatinine measurement (mass/volume) 1.32 mg/dL 0.60-1.30 Serum or plasma urea nitrogen/creatinine mass ratio 17 NRG Serum or plasma creatinine measurement with calculation of estimated glomerular filtration rate 54 NRG Serum or plasma glucose measurement (mass/volume) 251 mg/dL 70-105 Serum or plasma calcium measurement (mass/volume) 9.9 mg/dL 8.5-10.1 Serum or plasma total bilirubin measurement (mass/volume) 1.2 mg/dL 0.1-1.0 Serum or plasma alkaline phosphatase measurement (enzymatic activity/volume) 77 U/L 40-136 Serum or plasma aspartate aminotransferase measurement (enzymatic activity/ volume) 28 U/L 5-34 Serum or plasma alanine aminotransferase measurement (enzymatic activity/volume ) 39 U/L 0-55 Serum or plasma protein measurement (mass/volume) 7.4 g/dL 6.4-8.2 Serum or plasma albumin measurement (mass/volume) 4.3 g/dL 3.2-4.5 Magnesium - 02/09/18 14:45 Magnesium 2.3 mg/dL 1.8-2.4 Serum or plasma troponin i.cardiac measurement (mass/volume) - 02/09/18 14:45 Serum or plasma troponin i.cardiac measurement (mass/volume) < ng/ mL <0.30 Myoglobin, serum - 02/09/18 14:45 Myoglobin, serum 82.7 ng/mL 10.0-92.0 Serum or plasma amylase measurement (enzymatic activity/volume) - 02/09/18 14: 45 Serum or plasma amylase measurement (enzymatic activity/volume) 24 U /L 25-125 Lipase - 02/09/18 14:45 Lipase 30 U/L 8-78 PT panel in platelet poor plasma by coagulation assay - 02/09/18 14:45 Prothrombin time (PT) in platelet poor plasma by coagulation assay 13.4 s 12.2-14.7 INR in platelet poor plasma or blood by coagulation assay 1.0 0.8-1.4 Activated partial thromboplastin time (aPTT) in platelet poor plasma bycoagulation assay - 02/09/18 14:45 Activated partial thromboplastin time (aPTT) in platelet poor plasma bycoagulation assay 28 s 24-35 Serum or plasma thyrotropin measurement by detection limit <=0.05 miu/l (units/ volume) - 02/09/18 14:45 Serum or plasma thyrotropin measurement by detection limit <=0.05 miu/l (units/ volume) 1.93 u[iU]/mL 0.35-4.94 Serum or plasma acetaminophen measurement (mass/volume) - 02/09/18 14:45 Serum or plasma acetaminophen measurement (mass/volume) < ug/mL 10-30 Serum or plasma ethanol measurement (mass/volume) - 02/09/18 14:45 Serum or plasma ethanol measurement (mass/volume) < mg/dL <10 Complete urinalysis with reflex to culture - 02/09/18 17:40 Urine color determination YELLOW NRG Urine clarity determination CLEAR NRG Urine pH measurement by test strip 6 5-9 Specific gravity of urine by test strip 1.020 1.016- 1.022 Urine protein assay by test strip, semi-quantitative 3+ NEGATIVE Urine glucose detection by automated test strip 4+ NEGATIVE Erythrocytes detection in urine sediment by light microscopy NEGATIVE NEGATIVE Urine ketones detection by automated test strip 3+ NEGATIVE Urine nitrite detection by test strip NEGATIVE NEGATIVE Urine total bilirubin detection by test strip NEGATIVE NEGATIVE Urine urobilinogen measurement by automated test strip (mass/volume) NORMAL NORMAL Urine leukocyte esterase detection by dipstick 1+ NEGATIVE Automated urine sediment erythrocyte count by microscopy (number/high power field) NONE NRG Automated urine sediment leukocyte count by microscopy (number/high power field ) RARE NRG Bacteria detection in urine sediment by light microscopy FEW NRG Squamous epithelial cells detection in urine sediment by light microscopy NONE NRG Crystals detection in urine sediment by light microscopy NONE NRG Casts detection in urine sediment by light microscopy NONE NRG Mucus detection in urine sediment by light microscopy NEGATIVE NRG Complete urinalysis with reflex to culture NO NRG Urine drug screening test - 02/09/18 17:40 Urine phencyclidine detection by screening method NEGATIVE NEGATIVE Urine benzodiazepines detection by screening method NEGATIVE NEGATIVE Urine cocaine detection NEGATIVE NEGATIVE Urine amphetamines detection by screening method NEGATIVE NEGATIVE Urine methamphetamine detection by screening method NEGATIVE NEGATIVE Urine cannabinoids detection by screening method NEGATIVE NEGATIVE Urine opiates detection by screening method NEGATIVE NEGATIVE Urine barbiturates detection NEGATIVE NEGATIVE Screening urine tricyclic antidepressants detection POSITIVE NEGATIVE Urine methadone detection by screening method NEGATIVE NEGATIVE Urine oxycodone detection NEGATIVE NEGATIVE Urine propoxyphene detection NEGATIVE NEGATIVE Encounters ACCT No. Visit Date/Time Discharge Status Pt. Type Provider Facility Loc./Unit Complaint [id number] 02/09/2018 14:37:00 02/09/2018 18:46:00 DIS Emergency MISAEL THORNTON DO [facility] [address] ER FALL/POSS HEAD INJURY [id number] 10/11/2017 13:32:00 10/11/2017 23:59:59 CLS Outpatient GIL KAHN DO [facility] [address] RAD TRAUMA,M79.642, M79.672 [id number] 11/13/2016 10:31:00 11/18/2016 12:36:00 DIS Inpatient COBY FRANCO, ARMEN Cash [facility] [address] IRF DEBILITY [id number] 11/10/2016 12:25:00 11/13/2016 10:30:00 DIS Inpatient HAKEEM FRANCO, CASSY Braden [facility] [address] 4TH CELLULITIS KLE [id number] 07/08/2016 12:07:00 07/08/2016 13:41:00 DIS Emergency PRIMO FRANCOIS APRN [facility] [address] ER FALL/RIGHT FOOT PAIN [id number] 07/01/2016 10:00:00 07/01/2016 23:59:59 CLS Preadmit GIL KAHN DO [facility] [address] CR ACB REDO [id number] 06/24/2016 11:09:00 06/30/2016 00:01:00 DIS Outpatient GIL KAHN DO [facility] [address] CR ACB REDO [id number] 06/01/2016 16:44:00 06/01/2016 23:59:59 CLS Outpatient GIL KAHN DO [facility] [address] RAD HEADACHE,SEVERE VERTIGO [id number] 01/06/2016 16:41:00 01/06/2016 23:59:59 CLS Outpatient JUDY CABRALES MD [facility] [address] HH OSTEOMYLITIS LEFT FINGER, MSSA INFECTION [id number] 12/30/2015 14:44:00 12/30/2015 23:59:59 CLS Outpatient JUDY CABRALES MD [facility] [address] HH OSTEOMYLITIS LEFT FINGER, MSSA INFECTION [id number] 12/23/2015 16:18:00 12/23/2015 23:59:59 CLS Outpatient JUDY CABRALES MD [facility] [address] HH OSTEOMYLITIS LEFT FINGER, MSSA INFECTION [id number] 12/16/2015 13:01:00 12/16/2015 23:59:59 CLS Outpatient JUDY CABRALES MD [facility] [address] HH OSTEOMYLITIS LEFT FINGER, MSSA INFECTION [id number] 12/12/2015 11:43:00 12/12/2015 23:59:59 CLS Outpatient SAMRA MD, JUDY J [facility] OSTEOMYLITIS (L) THUMB [id number] 12/09/2015 10:44:00 12/09/2015 23:59:59 CLS Outpatient JUDY CABRALES MD [facility] OSTEOMYLITIS LT FINGER ,MSSA INFECTION [id number] 12/06/2015 10:50:00 12/06/2015 12:00:00 DIS Outpatient ELMO DAWN MD [facility] [address] WOUNDCARE [id number] 12/02/2015 15:53:00 12/02/2015 23:59:59 CLS Outpatient JUDY CABRALES MD [facility] OSTEOMYLITIS LEFT FINGER, MSSA INFECTION [id number] 08/07/2015 07:10:00 08/07/2015 14:05:00 DIS Outpatient BARBIE ALFRED MD [facility] [address] CATH PAD,CLAUDICATION,SHORT OF BREATH,HTN,DM,HLP [id number] 06/19/2015 11:52:00 06/19/2015 23:59:59 CLS Outpatient BARBIE ALFRED MD [facility] [address] CARD CAD,ASHLY,HTN,HLP [id number] 01/23/2015 19:06:00 01/29/2015 12:32:00 DIS Inpatient GIL KAHN DO [facility] [address] 4TH HYPONATREMIA, SCIATICA [id number] 06/13/2014 14:05:00 06/13/2014 23:59:59 CLS Outpatient GIL KAHN DO [facility] [address] RT DSYPNEA [id number] 03/07/2014 12:28:00 03/07/2014 23:59:59 CLS Outpatient GIL KAHN DO [facility] [address] RAD TRAUMATIC BRAIN INJURY,TRAUMA [id number] 06/14/2013 07:34:00 06/14/2013 23:59:59 CLS Outpatient BARBIE ALFRED MD [facility] [address] RAD CAD,CP,DIZZINESS [id number] 06/09/2013 09:46:00 06/09/2013 23:59:59 CLS Outpatient AUBRIE FRANCO BARBIE Murray [facility] [address] CARD CAD,CP,DIZZINESS [id number] 08/07/2015 07:09:00 Document Registration [id number] 04/27/2012 12:29:00 Document Registration [id number] 09/23/2011 11:18:00 Document Registration [id number] 11/26/2010 07:10:00 Document Registration [id number] 11/24/2010 07:01:00 Document Registration [id number] 11/07/2010 11:15:00 Document Registration [id number] 11/03/2010 09:00:00 Document Registration [id number] 06/26/2010 17:20:00 Document Registration [id number] 02/24/2010 06:59:00 Document Registration [email or web address] 01/23/2015 16:40:45 ACT Document Registration
[2018-04-05 21:07] VITALS: BP 117/56
[2018-04-05] MEDS ORDERED: cefTRIAXone FOR IV USE 2,000 MG in NS (IVPB) 50 ML IV ONE (22:30)
[2018-04-05] MEDS ORDERED: KETOROLAC 30 MG/ML VIAL IVP ONE (22:45)
[2018-04-05 23:13] VITALS: BP 142/79
[2018-04-05 23:45] VITALS: BP 147/86
[2018-04-06] MEDS: NS IV 1000 ML 1,000 ML IV SCH ×2 (00:31→08:50)
[2018-04-06] MEDS ORDERED: NS IV 1000 ML 1,000 ML ONE (00:31)
[2018-04-06 01:45] VITALS: BP 154/81
--- OUTSIDE RECORDS SUMMARY | 2018-04-06 03:23 | XMS REPORT | Clinical Summary ---
Author Author [facility] Organization [facility] Address Unknown Phone Unavailable Care Team Providers Care Paperboard Machine Operator Name Role Phone Kiel Mayer MD Unavailable [...] in the Health Information Management department at [phone] for further assistance in locating additional records.[facility] Allergies Active Allergy Reactions Severity Noted [...] Diabetes mellitus type 2 with complications, uncontrolled ([facility]) 07/15/2011 Overview: Diagnosed around 2004, but thinks he had diabetes as early as 1999. Morbidly obese ([facility]) 07/15/2011 CAD (coronary artery disease) [...]
--- OUTSIDE RECORDS SUMMARY | 2018-04-06 03:26 | XMS REPORT | Continuity of Care Document ---
Author Author [facility] Organization [facility] Address Unknown Phone Unavailable Allergies Active Description Code Type Severity Reaction Onset Reported/Identified Relationship to Patient Clinical Status Yes rosuvastatin [id number] Drug Allergy Unknown N/A 04/20/2007 Yes niacin [id number] Drug Allergy Unknown N/A 06/26/2010 Yes fenofibrate [id number] Drug Allergy Unknown LIVER PROBLEMS 01/23/2015 Medications [...] NOS 11/08/2010 Ot 414.01 CORONARY ATHEROSCLEROSIS OF [place] CORON 11/08/2010 Ot 414.04 CORON ATHEROSCLER ART [...] HYPERTENSION 05/02/2012 Ot 414.01 CORONARY ATHEROSCLEROSIS OF [place] CORON 05/02/2012 Ot 414.8 CHR ISCHEMIC HRT [...] MD, Ot I25.10 ATHSCL HEART DISEASE OF [place] CORONARY 08/07/2015 BARBIE ALFRED MD, Ot I27.2 OTHER SECONDARY PULMONARY HYPERTENSION 08/07/2015 BARBIE ALFRED MD, Ot I65.23 OCCLUSION AND STENOSIS OF BILATERAL TRAN 08/07/2015 BARBIE ALFRED MD, Ot I70.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 [place] ARTERIES OF EXTREMITI 08/07/2015 BARBIE ALFRED MD, Ot J44.9 CHRONIC OBSTRUCTIVE PULMONARY DISEASE, U 08/07/2015 BARBIE ALFRED MD, Ot M79.609 PAIN IN UNSPECIFIED LIMB 08/07/2015 BARBIE ALFRED MD, Ot Z68.42 BODY MASS INDEX (BMI) 45.0-49.9, ADULT 08/07/2015 BARBIE ALFRED MD, Ot Z79.02 CUSTODIAL (CURRENT) USE OF ANTITHROMBOTI 08/07/2015 BARBIE ALFRED MD, Ot Z79.4 TESTER VIBRATOR EQUIPMENT (CURRENT) USE OF INSULIN 08/07/2015 BARBIE ALFRED MD, Ot Z79.899 OTHER CUSTODIAL (CURRENT) DRUG THERAPY 08/07/2015 BARBIE ALFRED MD, [...] HAND 12/10/2015 JUDY CABRALES MD, Ot Z79.2 CUSTODIAL (CURRENT) USE OF ANTIBIOTICS 12/12/2015 JUDY CABRALES MD, Ot M86.242 SUBACUTE OSTEOMYELITIS, LEFT HAND 12/12/2015 JUDY CABRALES MD, Ot Z79.2 TESTER VIBRATOR EQUIPMENT (CURRENT) USE OF ANTIBIOTICS 12/17/2015 JUDY CABRALES MD Ot B95.61 METHICILLIN SUSCEP STAPH INFCT CAUSING D 12/17/2015 JUDY CABRALES MD Ot M86.242 SUBACUTE OSTEOMYELITIS, LEFT HAND 12/17/2015 JUDY CABRALES MD Ot Z79.2 TESTER VIBRATOR EQUIPMENT (CURRENT) USE OF ANTIBIOTICS 12/24/2015 JUDY CABRALES [...] HAND 01/08/2016 JUDY CABRALES MD Ot Z79.2 TESTER VIBRATOR EQUIPMENT (CURRENT) USE OF ANTIBIOTICS 01/08/2016 JUDY CABRALES MD Ot M86.242 SUBACUTE OSTEOMYELITIS, LEFT HAND 01/08/2016 JUDY CABRALES MD, Ot Z79.2 CUSTODIAL (CURRENT) USE OF ANTIBIOTICS 01/08/2016 JUDY CABRALES MD Ot B95.61 METHICILLIN SUSCEP STAPH INFCT CAUSING D 01/08/2016 JUDY CABRALES MD Ot M86.242 SUBACUTE OSTEOMYELITIS, LEFT HAND 01/08/2016 JUDY CABRALES MD, Ot Z79.2 TESTER VIBRATOR EQUIPMENT (CURRENT) USE OF ANTIBIOTICS 01/16/2016 JUDY CABRALES MD Ot B95.61 METHICILLIN SUSCEP STAPH INFCT CAUSING D 01/16/2016 JUDY CABRALES MD Ot M86.242 SUBACUTE OSTEOMYELITIS, LEFT HAND 01/17/2016 JUDY CABRALES MD Ot B95.61 METHICILLIN SUSCEP STAPH INFCT CAUSING D 01/17/2016 JUDY CABRALES MD Ot M86.242 SUBACUTE OSTEOMYELITIS, LEFT HAND 01/17/2016 JUDY CABRALES MD, Ot Z79.2 CUSTODIAL (CURRENT) USE OF ANTIBIOTICS 01/24/2016 JUDY CABRALES MD Ot A49.01 METHICILLIN SUSCEP STAPH INFECTION, UNSP 01/24/2016 JUDY CABRALES MD Ot M86.242 SUBACUTE OSTEOMYELITIS, LEFT HAND 01/24/2016 JUDY CABRALES MD, Ot Z79.2 TESTER VIBRATOR EQUIPMENT (CURRENT) USE OF ANTIBIOTICS 01/28/2016 JUDY CABRALES MD Ot B95.61 METHICILLIN SUSCEP STAPH INFCT CAUSING D 01/28/2016 JUDY CABRALES MD Ot M86.242 SUBACUTE OSTEOMYELITIS, LEFT HAND 01/28/2016 JUDY CABRALES MD, Ot Z79.2 CUSTODIAL (CURRENT) USE OF ANTIBIOTICS 04/01/2016 Ot 401.9 HYPERTENSION NOS 04/01/2016 Ot 414.00 CORON ATHEROSCLER NOS TYPE VESSEL, NATIV 04/01/2016 Ot 401.9 HYPERTENSION NOS 04/01/2016 Ot 414.00 CORON ATHEROSCLER NOS TYPE VESSEL, NATIV 04/01/2016 Ot 780.2 SYNCOPE AND COLLAPSE 04/01/2016 Ot V64.3 NO PROC FOR REASONS NEC 04/01/2016 BARBIE ALFRED MD Ot 414.01 CORONARY ATHEROSCLEROSIS OF [place] CORON 04/01/2016 AUBRIE MD, BASHAR J Ot [...] MD, Ot I25.10 ATHSCL HEART DISEASE OF [place] CORONARY 04/01/2016 BARBIE ALFRED MD Ot I65.23 OCCLUSION AND STENOSIS OF BILATERAL TRAN 04/01/2016 JUDY CABRALES MD Ot B95.61 METHICILLIN SUSCEP STAPH INFCT CAUSING D 04/01/2016 JUDY CABRALES MD Ot M86.9 OSTEOMYELITIS, UNSPECIFIED 04/01/2016 JUDY CABRALES MD Ot A49.01 METHICILLIN SUSCEP STAPH INFECTION, UNSP 04/01/2016 JUDY CABRALES MD, Ot M86.242 SUBACUTE OSTEOMYELITIS, LEFT HAND 04/01/2016 JUDY CABRALES MD Ot Z79.2 TESTER VIBRATOR EQUIPMENT (CURRENT) USE OF ANTIBIOTICS 04/01/2016 JUDY CABRALES MD Ot M86.242 SUBACUTE OSTEOMYELITIS, LEFT HAND 04/01/2016 JUDY CABRALES MD Ot Z79.2 TESTER VIBRATOR EQUIPMENT (CURRENT) USE OF ANTIBIOTICS 04/01/2016 JUDY CABRALES MD Ot B95.61 METHICILLIN SUSCEP STAPH INFCT CAUSING D 04/01/2016 JUDY CABRALES MD Ot M86.242 SUBACUTE OSTEOMYELITIS, LEFT HAND 04/01/2016 JUDY CABRALES MD Ot Z79.2 CUSTODIAL (CURRENT) USE OF ANTIBIOTICS 04/01/2016 JUDY CABRALES MD Ot B95.61 METHICILLIN SUSCEP STAPH INFCT CAUSING D 04/01/2016 JUDY CABRALES MD Ot M86.242 SUBACUTE OSTEOMYELITIS, LEFT HAND 04/01/2016 JUDY CABRALES MD Ot A49.01 METHICILLIN SUSCEP STAPH INFECTION, UNSP 04/01/2016 JUDY CABRALES MD Ot M86.242 SUBACUTE OSTEOMYELITIS, LEFT HAND 04/01/2016 JUDY CABRALES MD, Ot Z79.2 CUSTODIAL (CURRENT) USE OF ANTIBIOTICS 04/01/2016 JUDY CABRALES MD Ot B95.61 METHICILLIN SUSCEP STAPH INFCT CAUSING D 04/01/2016 JUDY CABRALES MD Ot M86.242 SUBACUTE OSTEOMYELITIS, LEFT HAND 04/01/2016 JUDY CABRALES MD Ot Z79.2 CUSTODIAL (CURRENT) USE OF ANTIBIOTICS 04/02/2016 GIL KAHN [...] ALFRED MD Ot 414.01 CORONARY ATHEROSCLEROSIS OF [place] CORON 06/02/2016 BARBIE ALFRED MD Ot 786.50 CHEST PAIN NOS 06/02/2016 BARBIE ALFRED MD Ot 250.00 DIAB ANU WO COMPL, TYPE II OR UNSPEC TY 06/02/2016 BARBIE ALFRED MD Ot 272.4 HYPERLIPIDEMIA NEC/NOS 06/02/2016 BARBIE ALFRED MD Ot 278.00 OBESITY, NOS 06/02/2016 BARBIE ALFRED MD Ot 397.0 TRICUSPID VALVE DISEASE 06/02/2016 BARBIE ALFRED MD Ot 401.9 HYPERTENSION NOS 06/02/2016 BARBIE ALFRED MD Ot 414.00 CORON ATHEROSCLER [...] MD Ot I25.10 ATHSCL HEART DISEASE OF [place] CORONARY 06/02/2016 BARBIE ALFRED MD Ot I65.23 OCCLUSION AND STENOSIS OF BILATERAL TRAN 06/02/2016 JUDY CABRALES MD Ot B95.61 METHICILLIN SUSCEP STAPH INFCT CAUSING D 06/02/2016 JUDY CABRALES MD Ot M86.9 OSTEOMYELITIS, UNSPECIFIED 06/02/2016 JUDY CABRALES MD Ot A49.01 METHICILLIN SUSCEP STAPH INFECTION, UNSP 06/02/2016 JUDY CABRALES MD, Ot M86.242 SUBACUTE OSTEOMYELITIS, LEFT HAND 06/02/2016 JUDY CABRALES MD, Ot Z79.2 CUSTODIAL (CURRENT) USE OF ANTIBIOTICS 06/02/2016 JUDY CABRALES MD, Ot M86.242 SUBACUTE OSTEOMYELITIS, LEFT HAND 06/02/2016 JUDY CABRALES MD, Ot Z79.2 CUSTODIAL (CURRENT) USE OF ANTIBIOTICS 06/02/2016 JUDY CABRALES MD Ot B95.61 METHICILLIN SUSCEP STAPH INFCT CAUSING D 06/02/2016 JUDY CABRALES MD, Ot M86.242 SUBACUTE OSTEOMYELITIS, LEFT HAND 06/02/2016 JUDY CABRALES MD, Ot Z79.2 TESTER VIBRATOR EQUIPMENT (CURRENT) USE OF ANTIBIOTICS 06/02/2016 UJDY CABRALES MD Ot B95.61 METHICILLIN SUSCEP STAPH INFCT CAUSING D 06/02/2016 JUDY CABRALES MD, Ot M86.242 SUBACUTE OSTEOMYELITIS, LEFT HAND 06/02/2016 JUDY CABRALES MD, Ot A49.01 METHICILLIN SUSCEP STAPH INFECTION, UNSP 06/02/2016 JUDY CABRALES MD, Ot M86.242 SUBACUTE OSTEOMYELITIS, LEFT HAND 06/02/2016 JUDY CABRALES MD, Ot Z79.2 TESTER VIBRATOR EQUIPMENT (CURRENT) USE OF ANTIBIOTICS 06/02/2016 JUDY CABRALES MD Ot B95.61 METHICILLIN SUSCEP STAPH INFCT CAUSING D 06/02/2016 JUDY CABRALES MD, Ot M86.242 SUBACUTE OSTEOMYELITIS, LEFT HAND 06/02/2016 JUDY CABRALES MD, Ot Z79.2 TESTER VIBRATOR EQUIPMENT (CURRENT) USE OF ANTIBIOTICS 06/02/2016 GIL KAHN DO, Ot Z48.812 ENCNTR FOR SURGICAL AFTCR FOLLOWING SURG 06/02/2016 GIL KAHN DO, Ot Z95.1 PRESENCE OF AORTOCORONARY BYPASS GRAFT 06/02/2016 GLI KAHN DO, Ot R42 DIZZINESS AND GIDDINESS [...] PRESENCE OF AORTOCORONARY BYPASS GRAFT 07/01/2016 GIL KAHN DO Ot R42 DIZZINESS AND GIDDINESS 07/01/2016 GIL KAHN DO Ot R51 HEADACHE 07/06/2016 GIL KAHN DO Ot Z48.812 ENCNTR FOR SURGICAL AFTCR FOLLOWING SURG 07/06/2016 KAHN DO GIL Terri Ot Z95.1 PRESENCE OF AORTOCORONARY BYPASS GRAFT 07/08/2016 PRIMO FRANCOIS APRN Ot E11.9 TYPE 2 [...] STATUS 07/08/2016 PRIMO FRANCOIS APRN Ot Z79.02 CUSTODIAL (CURRENT) USE OF ANTITHROMBOTI 07/08/2016 PRIMO FRANCOIS APRN Ot Z79.82 TESTER VIBRATOR EQUIPMENT (CURRENT) USE OF ASPIRIN 07/08/2016 PRIMO FRANCOIS APRN Ot Z79.84 TESTER VIBRATOR EQUIPMENT (CURRENT) USE OF ORAL HYPOGLYC 07/08/2016 PRIMO FRANCOIS APRN Ot Z79.899 OTHER CUSTODIAL (CURRENT) DRUG THERAPY 07/08/2016 PRIMO FRANCOIS APRN [...] STATUS 07/09/2016 PRIMO FRANCOIS APRN Ot Z79.02 CUSTODIAL (CURRENT) USE OF ANTITHROMBOTI 07/09/2016 PRIMO FRANCOIS APRN Ot Z79.82 CUSTODIAL (CURRENT) USE OF ASPIRIN 07/09/2016 PRIMO FRANCOIS APRN Ot Z79.84 CUSTODIAL (CURRENT) USE OF ORAL HYPOGLYC 07/09/2016 PRIMO FRANCOIS APRN Ot Z79.899 OTHER CUSTODIAL (CURRENT) DRUG THERAPY 07/09/2016 PRIMO FRANCOIS APRN [...] ADULT 11/11/2016 CASSY PALACIO MD Ot Z79.4 CUSTODIAL (CURRENT) USE OF INSULIN 11/11/2016 CASSY PALACIO [...] ADULT 11/13/2016 CASSY PALACIO MD Ot Z79.4 TESTER VIBRATOR EQUIPMENT (CURRENT) USE OF INSULIN 11/13/2016 CASSY PALACIO [...] MD, Ot I25.10 ATHSCL HEART DISEASE OF [place] CORONARY 11/18/2016 ARMEN TENORIO MD, Ot I65.29 OCCLUSION AND STENOSIS OF UNSPECIFIED CA 11/18/2016 ARMEN TENORIO MD, Ot L03.115 CELLULITIS OF RIGHT LOWER LIMB 11/18/2016 ARMEN TENORIO MD, Ot Z68.42 BODY MASS INDEX (BMI) 45.0-49.9, ADULT 11/18/2016 ARMEN TENORIO MD, Ot Z79.4 TESTER VIBRATOR EQUIPMENT (CURRENT) USE OF INSULIN 11/18/2016 ARMEN TENORIO [...] Braden Ot I25.10 ATHSCL HEART DISEASE OF [place] CORONARY 02/09/2018 NORBERTO CHAO MISAEL Asiya Ot [...] R10.31 RIGHT LOWER QUADRANT PAIN 02/09/2018 NORBERTO CHOA MISAEL Asiya Ot R55 SYNCOPE AND COLLAPSE 02/09/2018 NORBERTO CHAO MISAEL Asiya Ot Z79.02 CUSTODIAL (CURRENT) USE OF ANTITHROMBOTI 02/09/2018 NORBERTO CHAO MISAEL Asiya Ot Z79.4 TESTER VIBRATOR EQUIPMENT (CURRENT) USE OF INSULIN 02/09/2018 NORBERTO CHAO MISAEL Asiya Ot Z79.82 CUSTODIAL (CURRENT) USE OF ASPIRIN 02/09/2018 NORBERTO CHAO MISAEL Asiya Ot Z80.3 FAMILY HISTORY OF MALIGNANT NEOPLASM OF 02/09/2018 NORBERTO CHAO MISALE Asiya Ot Z80.41 FAMILY HISTORY OF MALIGNANT [...] Braden Ot I25.10 ATHSCL HEART DISEASE OF [place] CORONARY 02/25/2018 NORBRETO CHAO MISAEL Braden Ot I25.2 OLD MYOCARDIAL [...] 02/25/2018 NORBERTO CHAO MISAEL Braden Ot Z79.02 CUSTODIAL (CURRENT) USE OF ANTITHROMBOTI 02/25/2018 NORBERTO CHAO MISAEL Asiya Ot Z79.4 CUSTODIAL (CURRENT) USE OF INSULIN 02/25/2018 NORBERTO CHAO MISAEL Asiya Ot Z79.82 CUSTODIAL (CURRENT) USE OF ASPIRIN 02/25/2018 NORBERTO CHAO [...] Status Pt. Type Provider Facility Loc./Unit Complaint [id number] 02/09/2018 14:37:00 02/09/2018 18:46:00 DIS Emergency MISAEL THORNTON DO [facility] ER FALL/POSS HEAD INJURY [id number] 10/11/2017 13:32:00 10/11/2017 23:59:59 CLS Outpatient GIL KAHN DO [facility] RAD TRAUMA,M79.642, M79.672 [id number] 11/13/2016 10:31:00 11/18/2016 12:36:00 DIS Inpatient COBY FRANCO, ARMEN Cash [facility] IRF DEBILITY [id number] 11/10/2016 12:25:00 11/13/2016 10:30:00 DIS Inpatient HAKEEM FRANCO, CASSY Braden [facility] 4TH CELLULITIS KLE [id number] 07/08/2016 12:07:00 07/08/2016 13:41:00 DIS Emergency PRIMO FRANCOIS APRN [facility] ER FALL/RIGHT FOOT PAIN [id number] 07/01/2016 10:00:00 07/01/2016 23:59:59 CLS Preadmit GIL KAHN DO [facility] CR ACB REDO [id number] 06/24/2016 11:09:00 06/30/2016 00:01:00 DIS Outpatient GIL KAHN DO [facility] CR ACB REDO [id number] 06/01/2016 16:44:00 06/01/2016 23:59:59 CLS Outpatient GIL KAHN DO [facility] RAD HEADACHE,SEVERE VERTIGO [id number] 01/06/2016 16:41:00 01/06/2016 23:59:59 CLS Outpatient JUDY CABRALES MD [facility] HH OSTEOMYLITIS LEFT FINGER, MSSA INFECTION [id number] 12/30/2015 14:44:00 12/30/2015 23:59:59 CLS Outpatient JUDY CABRALES MD [facility] HH OSTEOMYLITIS LEFT FINGER, MSSA INFECTION [id number] 12/23/2015 16:18:00 12/23/2015 23:59:59 CLS Outpatient JUDY CABRALES MD [facility] HH OSTEOMYLITIS LEFT FINGER, MSSA INFECTION [id number] 12/16/2015 13:01:00 12/16/2015 23:59:59 CLS Outpatient JUDY CABRALES MD [facility] HH OSTEOMYLITIS LEFT FINGER, MSSA INFECTION [id number] 12/12/2015 11:43:00 12/12/2015 23:59:59 CLS Outpatient SAMRA MD, JUDY J [facility] OSTEOMYLITIS (L) THUMB [id number] 12/09/2015 10:44:00 12/09/2015 23:59:59 CLS Outpatient JUDY CABRALES MD [facility] OSTEOMYLITIS LT FINGER ,MSSA INFECTION [id number] 12/06/2015 10:50:00 12/06/2015 12:00:00 DIS Outpatient ELMO DAWN MD [facility] WOUNDCARE [id number] 12/02/2015 15:53:00 12/02/2015 23:59:59 CLS Outpatient JUDY CABRALES MD [facility] OSTEOMYLITIS LEFT FINGER, MSSA INFECTION [id number] 08/07/2015 07:10:00 08/07/2015 14:05:00 DIS Outpatient BARBIE ALFRED MD [facility] CATH PAD,CLAUDICATION,SHORT OF BREATH,HTN,DM,HLP [id number] 06/19/2015 11:52:00 06/19/2015 23:59:59 CLS Outpatient BARBIE ALFRED MD [facility] CARD CAD,ASHLY,HTN,HLP [id number] 01/23/2015 19:06:00 01/29/2015 12:32:00 DIS Inpatient GIL KAHN DO [facility] 4TH HYPONATREMIA, SCIATICA [id number] 06/13/2014 14:05:00 06/13/2014 23:59:59 CLS Outpatient GIL KAHN DO [facility] RT DSYPNEA [id number] 03/07/2014 12:28:00 03/07/2014 23:59:59 CLS Outpatient GIL KAHN DO [facility] RAD TRAUMATIC BRAIN INJURY,TRAUMA [id number] 06/14/2013 07:34:00 06/14/2013 23:59:59 CLS Outpatient BARBIE ALFRED MD [facility] RAD CAD,CP,DIZZINESS [id number] 06/09/2013 09:46:00 06/09/2013 23:59:59 CLS Outpatient AUBRIE FRANCO BARBIE Murray [facility] CARD CAD,CP,DIZZINESS [id number] 08/07/2015 07:09:00 Document Registration [id number] 04/27/2012 12:29:00 Document Registration [id number] 09/23/2011 11:18:00 Document Registration [id number] 11/26/2010 07:10:00 Document Registration [id number] 11/24/2010 07:01:00 Document Registration [id number] 11/07/2010 11:15:00 Document Registration [id number] 11/03/2010 09:00:00 Document Registration [id number] 06/26/2010 17:20:00 Document Registration [id number] 02/24/2010 06:59:00 Document Registration [email or web address] 01/23/2015 16:40:45 ACT Document Registration
[2018-04-06 04:06] VITALS: BP 138/84
[2018-04-06] MEDS ORDERED: CATHETER FLUSH 10 ML SYR IV PRN (05:45)
[2018-04-06] MEDS: CATHETER FLUSH 10 ML SYR IV SCH ×3 (06:07→20:04)
[2018-04-06] MEDS ORDERED: inSUlin ASPART (NovoLOG) 1 UNIT/0.01 ML (CHARGE PER UNIT) ONE (06:19)
[2018-04-06] MEDS: inSUlin ASPART (NovoLOG) 1 UNIT/0.01 ML (CHARGE PER UNIT) SC SCH ×5 (06:26→19:54)
[2018-04-06 07:53] LABS: BASOPHILS % (AUTO) 0 % (0-10); EOSINOPHILS # (AUTO) 0.1 10^3/uL (0.0-0.3); EOSINOPHILS % (AUTO) 1 % (0-10); HEMATOCRIT 36 % (40-54); HEMOGLOBIN 12.6 G/DL (13.3-17.7); LYMPHOCYTES # (AUTO) 1.1 X 10^3 (1.0-4.0); LYMPHOCYTES % (AUTO) 16 % (12-44); MEAN CORPUSCULAR HEMOGLOBIN 31 PG (25-34); MEAN CORPUSCULAR HGB CONC 35 G/DL (32-36); MEAN CORPUSCULAR VOLUME 88 FL (80-99); MONOCYTES # (AUTO) 0.7 X 10^3 (0.0-1.0); MONOCYTES % (AUTO) 11 % (0-12); NEUTROPHILS # (AUTO) 4.8 X 10^3 (1.8-7.8); NEUTROPHILS % (AUTO) 72 % (42-75); PLATELET COUNT 126 10^3/uL (130-400); RED BLOOD COUNT 4.04 10^6/uL (4.35-5.85); RED CELL DISTRIBUTION WIDTH 15.3 % (10.0-14.5); WHITE BLOOD COUNT 6.6 10^3/uL (4.3-11.0)
[2018-04-06 08:00] VITALS: BP 182/88
[2018-04-06 08:22] LABS: ALBUMIN 3.7 GM/DL (3.2-4.5); CALCIUM 8.9 MG/DL (8.5-10.1); CREATININE SERUM 1.26 MG/DL (0.60-1.30); TOTAL PROTEIN 6.4 GM/DL (6.4-8.2)
[2018-04-06] MEDS: cefTRIAXone 2 GM/NS 50 ML IVPB IV SCH ×4 (08:51→20:01)
[2018-04-06] MEDS ORDERED: INSU100V16 SC (09:14)
[2018-04-06] MEDS ORDERED: LOSA100T8 PO (09:14)
[2018-04-06] MEDS ORDERED: INSU100V5 SC (09:14)
[2018-04-06] MEDS ORDERED: ONDA8TAB13 PO (09:14)
--- NOTE | 2018-04-06 10:01 | History & Physical-Hospitalist ---
History of Present Illness HPI/Chief Complaint Pt is a 67yoCM with a PMH of CAD s/p CABG, IDDMII, vertigo who presented to the ER with CC of weakness. He states he fell three days ago in his kitchen because he was dizzy from his vertigo. Since that time he has felt very weakness and had a headache. Yesterday he was supposed to go to his ENT appointment but was too weak to get out of bed so he came to the ER for evaluation. On arrival he was found to have a one time fever of 100.8 with a mild leukocytosis of 12.3 and work up for infection was initiated. His chest x-ray was clear so he underwent a CT abdomen which revealed cholelithiasis without signs of cholecystitis. Given his headache, fever, and elevated lactic acid he was admitted due to concerns for possible meningitis as he was unable to have an LP done due to being on ASA and Plavix. This morning he states he is feeling better though still feels weak. He is overall much weaker than he was a month ago when he was admitted to [facility] for syncope. He underwent 5 weeks of skilled therapy at [facility] and was discharged two home two weeks ago and has gotten worse. Source: patient Exam Limitations: no limitations Date Seen 04/06/18 Time Seen by Provider: 09:50 Attending Physician Jax Winkler MD PCP Kevin Pelletier DO Referring Physician Date of Admission Apr 05, 2018 at 11:13 pm Home Medications & Allergies Home Medications Reviewed patient Home Medication Reconciliation performed by pharmacy medication reconciliations veterinary surgery technician and/or nursing. Patients Allergies have been reviewed. Allergies Allergies Coded Allergies niacin (Unverified Allergy, Unknown, 06/26/10) rosuvastatin (Verified Allergy, Unknown, 04/20/07) fenofibrate (Unverified Adverse Reaction, Unknown, LIVER PROBLEMS, 01/23/15) Past Rejocgz-Aqodyr-Xdxumk Hx Past Med/Social Hx: Reviewed Nursing Past Med/Soc Hx Patient Social History Alcohol Use: Denies Use Recreational Drug Use: No Smoking Status: Never a Smoker 2nd Hand Smoke Exposure: No Physical Abuse Screen: No Sexual Abuse: No Recent Foreign Travel: No Contact w/other who traveled: No Recent Hopitalizations: Yes Recent Infectious Disease Expo: No Immunizations Up To Date Tetanus Booster (TDap): Less than 5yrs Seasonal Allergies Seasonal Allergies: No Past Medical History Surgeries: Cardiac, CABG, Coronary Stent Respiratory: Sleep Apnea (wears CPAP) Currently Using CPAP: Yes Currently Using BIPAP: No Cardiac: Coronary Artery Disease, Heart Attack, High Cholesterol, Hypertension Neurological: Neuropathy, Vertigo Reproductive: No Musculoskeletal: Degenerate Disk Disease, Arthritis, Chronic Back Pain Endocrine: Diabetes, Insulin dep Loss of Vision: Right Skin/Integumentary: Recent Skin Changes History of Blood Disorders: No Family History Reviewed Nursing Family Hx Cardiovascular disease 19 FATHER, Onset:Unknown FH: breast cancer G8 SISTER, Onset:50's - 60 FH: ovarian cancer 19 MOTHER, Onset:40's - 50 No Family History of: Cancer of mouth Review of Systems Constitutional: No chills, No diaphoresis; dizziness, fever, weakness EENTM: No ear pain, No hoarseness Respiratory: No cough, No phlegm, No short of breath Cardiovascular: No chest pain, No edema, No palpitations Gastrointestinal: No abdominal pain, No diarrhea; nausea; No vomiting Genitourinary: no symptoms reported Musculoskeletal: muscle weakness, neck pain Skin: no symptoms reported Psychiatric/Neurological: Denies Paresthesia, Denies Tingling; Weakness Physical Exam Physical Exam Vital Signs Vital Signs - First Documented 04/05/18 04/05/18 15:44 19:44 Temp 100.8 Pulse 89 Resp 20 B/P (MAP) 153/88 (109) Pulse Ox 96 O2 Delivery Room Air Capillary Refill : Less Than 3 Seconds Height, Weight, BMI Height: 6'0.00" Weight: 330lbs. 0.0oz. 149.089097gk; 44.8 BMI Method:Stated General Appearance: Obese HEENT: Moist Mucous Membranes; No Scleral Icterus (L), No Scleral Icterus (R) Neck: Non Tender, Supple Respiratory: Lungs Clear, No Respiratory Distress Cardiovascular: Regular Rate, Rhythm, No Murmur, Normal Peripheral Pulses Gastrointestinal: Normal Bowel Sounds, Non Tender, Soft Extremity: No Calf Tenderness, No Pedal Edema Neurologic/Psychiatric: Alert, Oriented x3, Normal Mood/Affect Results Results/Procedures Labs Laboratory Tests 04/05/18 15:55 04/06/18 07:45 Patient resulted labs reviewed. Imaging: Reviewed Imaging Report Assessment/Plan Admission Diagnosis fever Admission Status: Inpatient Order (span 2 midnights) Reason for Inpatient Admission: Likely needs two days to stabilize for discharge and to rule out meningitis, awaiting cultures Diagnosis/Problems Diagnosis/Problems (1) Fever Status: Acute Assessment & Plan: Fever x1 yesterday with headache and neck pain Unable to perform LP as on Plavix Discussed with Anesthesia and would have to hold Plavix for 1 week before able to perform LP Continue on Rocephin until cultures back Unlikely to be meningitis If remains afebrile at 24 hours will DC isolation Likely viral syndrome Qualifiers: Fever type: unspecified Qualified Codes: R50.9 - Fever, unspecified (2) Insulin dependent diabetes mellitus Status: Chronic Assessment & Plan: Resume home insulin (3) Vertigo Status: Acute Assessment & Plan: COntinue Meclizine PT/OT consulted (4) CAD (coronary artery disease) Status: Chronic Assessment & Plan: Resume Plavix and ASA Qualifiers: Coronary Disease-Associated Artery/Lesion type: bypass graft [place] vs. transplanted heart: [place] heart Associated angina: without angina Qualified Codes: I25.810 - Atherosclerosis of coronary artery bypass graft(s) without angina pectoris (5) TREE (obstructive sleep apnea) Assessment & Plan: CPAP at bedside Clinical Quality Measures DVT/VTE Risk/Contraindication: Risk Factor Score Per Nursin RFS Level Per Nursing on Admit: 4+=Very High ANTONIO MICHAELS MD Apr 06, 2018 10:00 am
--- NOTE | 2018-04-06 11:14 | Occupational Therapy Eval ---
OT Evaluation-General/PLF Medical Diagnosis Admission Date Apr 05, 2018 at 23:13 Medical Diagnosis: Fever of unkown source Onset Date: Apr 05, 2018 Therapy Diagnosis Therapy Diagnosis: decreased self care skills Height/Weight Height (Feet): 6 Height (Inches): 0.00 Weight (Pounds): 330 Weight (Ounces): 0.0 Precautions Precautions/Isolations: Droplet Isolation, Fall Prevention, Standard Precautions Safety Interventions: Bed Exit Alarm Referral Physician: Madi Medical History Pertinent Medical History: Arthritis, CABG, CAD, COPD, DM, HTN, [place], Neuropathy Additional Medical History sleep apnea, high cholesterol, vertigo, DDD, chronic back pain. Current History Pt states he fell three days ago and has been feeling weak. Pt admitted with fever of unknown source, vomiting, headache, and dizziness Reviewed History: Yes Social History Home: Single Level Current Living Status: Alone ADL-Prior Level of Function ADL PLOF Comments Pt reports being independent with basic self care. Has a walker and cane. States he's been using the walker recently secondary to feeling weak. Pt states he's had vertigo for 5 or 6 years. DME/Equipment: [employer] Drive Self: No (sister provides transportation) OT Current Status Subjective Pt in bed, agrees to therapy. Pt reports low back pain, states this is chronic. But does not rate pain. Mental Status/Objective Patient Orientation: Person, Place, Situation Attachments: IV Current Glasses/Contacts: Yes (reading) Hearing Aids: No Dentures/Partials: Yes Upper Extremity ROM Grossly WFL Upper Extremity Sensation UE sensation intact per pt report. Pt reports neuropathy in LE Upper Extremity Strength Grossly 4/5 ADL-Treatment ADL-Current Pt supine to sit with assist for trunk. Sat EOB for UE assessment. Pt required assist to don socks, states he uses a sock aid at home. Sit to stand with supervision. Pt performed gait to restroom with FWW with SBA and assist to manage IV pole. Pt stood at toilet to urinate with SBA. Pt able to manage clothing during toileting with SBA for balance. Pt requested to return to bed and completed sit to supine with SBA. Pt resting in bed with needs met after session. Functional [place] Measure 0=Not Assessed/NA 4=Minimal Assistance 1=Total Assistance 5=Supervision or Setup 2=Maximal Assistance 6=Modified [place] 3=Moderate Assistance 7=Complete IndependenceIRFPAI Quality Coding Scale 6 Independent with activity with or without an assistive device 5 Patient requires set up or clean up by helper. Patient completes activity by themselves 4 Supervision or touching assist (CGA). [place] provide cues , steadying assist 3 The helper provides less than half the effort to complete the activity 2 The helper provides more than half the effort to complete the activity 1 Dependent. The helper does all the effort to complete an activity 7 Patient refused to complete or attempt activity 9 The patient did not perform the activity before the current illness or injury 88 Not attempted due to Medical conditions or safety concerns Toileting (FIM): 5 Education OT Patient Education: Rehab process Teaching Recipient: Patient Teaching Methods: Discussion Response to Teaching: Verbalize Understanding OT Short Term Goals Short Term Goals 1=Demonstrate adherence to instructed precautions during ADL tasks. 2=Patient will verbalize/demonstrate understanding of assistive devices/ modifications for ADL. 3=Patient will improve strength/tolerance for activity to enable patient to perform ADL's. OT Refining Still Operator Goals Refining Still Operator Goals Time Frame: Apr 13, 2018 Grooming(FIM): 6 Bathing(FIM): 5 Upper Body Dressing(FIM): 6 Lower Body Dressing(FIM): 6 Toileting(FIM): 6 Toilet/Commode Transfer(FIM): 6 Additional Goals: 2-Verbalize Understanding, 3-ImproveStrength/Farshad 1=Demonstrate adherence to instructed precautions during ADL tasks. 2=Patient will verbalize/demonstrate understanding of assistive devices/ modifications for ADL. 3=Patient will improve strength/tolerance for activity to enable patient to perform ADL's. OT Education/Plan Problem List/Assessment Assessment: Decreased Activ Tolerance, Dependent Transfers, Impaired Self-Care Skills Pt to benefit from skilled OT intervention for ADL training, transfers, strengthening, and home safety education to increase level of independence and allow safe discharge plan. Discharge Recommendations Plan/Recommendations: Continue POC Treatment Plan/Plan of Care Treatment,Training & Education: Yes Patient would benefit from OT for education, treatment and training to promote independence in ADL's, mobility, safety and/or upper extremity function for ADL' s. Plan of Care: ADL Retraining, Functional Mobility, UE Funct Exercise/Act Treatment Duration: Apr 13, 2018 Frequency: 5 times per week Estimated Hrs Per Day: .25 hour per day Rehab Potential: Fair Time/GCodes Start Time: 10:39 Stop Time: 11:00 Total Time Billed (hr/min): 21 Billed Treatment Time 1 visit, EVL(21minutes) LEONA DYSON OT Apr 06, 2018 11:14
[2018-04-06] MEDS ORDERED: ACET-2267 PO (11:44)
[2018-04-06] MEDS ORDERED: NITR0.4T42 SL (11:44)
[2018-04-06] MEDS ORDERED: CHOL10007 PO (11:44)
[2018-04-06] MEDS ORDERED: MAGN400T6 PO (11:44)
[2018-04-06] MEDS ORDERED: AMIT25TA9 PO (11:44)
[2018-04-06] MEDS ORDERED: MECL12.579 PO (11:44)
[2018-04-06] MEDS ORDERED: MAGN400O7 PO (11:44)
[2018-04-06] MEDS ORDERED: DOCU-143 PO (11:44)
[2018-04-06] MEDS ORDERED: NAPR220C11 PO (11:44)
[2018-04-06] MEDS ORDERED: OMEG-160 PO (11:44)
[2018-04-06] MEDS ORDERED: ASCO250T6 PO (11:44)
[2018-04-06] MEDS ORDERED: CALC1TAB94 PO (11:44)
[2018-04-06] MEDS ORDERED: TAMS0.4C2 PO (11:44)
[2018-04-06] MEDS ORDERED: ASPI-983 PO (11:44)
[2018-04-06] MEDS ORDERED: FINA5TAB6 PO (11:44)
[2018-04-06 12:00] VITALS: BP 177/81
[2018-04-06] MEDS ORDERED: ENOXAPARIN 40 MG/0.4 ML (LOVENOX) SYR SC SCH (13:00)
--- NOTE | 2018-04-06 13:27 | Physical Therapy Evaluation ---
PT Evaluation-General Medical Diagnosis Admission Date Apr 05, 2018 at 23:13 Medical Diagnosis: Fever of unkown source Onset Date: Apr 05, 2018 Therapy Diagnosis Therapy Diagnosis: impaired mobility, strength, endurance Height/Weight Height (Feet): 6 Height (Inches): 0.00 Weight (Pounds): 330 Weight (Ounces): 0.0 Precautions Precautions/Isolations: Droplet Isolation, Fall Prevention, Standard Precautions Weight Bear Status Right Lower Extremity: Right Weight Bearing/Tolerated Left Lower Extremity: Left Weight Bearing/Tolerated Referral Physician: Madi Reason for Referral: Evaluation/Treatment Medical History Pertinent Medical History: Arthritis, CABG, CAD, COPD, DM, HTN, [place], Neuropathy Additional Medical History Past Medical History Surgeries: Cardiac, CABG, Coronary Stent Respiratory: Sleep Apnea (wears CPAP) Currently Using CPAP: Yes Currently Using BIPAP: No Cardiac: Coronary Artery Disease, Heart Attack, High Cholesterol, Hypertension Neurological: Neuropathy, Vertigo Reproductive: No Musculoskeletal: Degenerate Disk Disease, Arthritis, Chronic Back Pain Endocrine: Diabetes, Insulin dep Loss of Vision: Right Current History Went to ER with weakness, fell 3 days prior. Reviewed History: Yes Social History Home: Single Level Current Living Status: Alone Entry Into Home: Stairs Without Railing PT Steps Into Home: 2 Patient states he has a pole to hold onto when going up/down the steps. Prior/Core FIM Prior Level of Function Functional [place] Measure 0=Not Assessed/NA 4=Minimal Assistance 1=Total Assistance 5=Supervision or Setup 2=Maximal Assistance 6=Modified [place] 3=Moderate Assistance 7=Complete [place] Bed Mobility: 6 Transfers (B,C,W/C) (FIM): 6 Patient states he normally ambulates with a rolling walker. PT Evaluation-Current Subjective Patient in bed pre tx, states he has some minor pain in his right shoulder. Patient is unwilling to ambulate or get into a chair. He agrees reluctantly to bed exercises. Pt/Family Goals to be independent at home Objective Patient Orientation: Person, Place, Situation ROM/Strength ROM Lower Extremities WNL Strength Lower Extremities 3/5 gross bilateral lower extremities Neuromuscular (Tone, Coordination, Reflexes) NT Sensory Sensation Right Lower Extremit: Impaired Sensation Left Lower Extremity: Impaired Sensation Lower Extremities Patient has numbness from the knees down. Transfers Functional [place] Measure 0=Not Assessed/NA 4=Minimal Assistance 1=Total Assistance 5=Supervision or Setup 2=Maximal Assistance 6=Modified [place] 3=Moderate Assistance 7=Complete [place] Treatment supine exercises x10 (AP, QS, GS, HS, SAQ, SLR, hip abd/add) Assessment/Needs Patient has impaired mobility, strength, endurance. He was unwilling to ambulate or get into a chair at this time. General mobility measurements were not obtained. Rehab Potential: Fair PT Short Term Goals Short Term Goals Time Frame: Apr 13, 2018 Transfers (B,C,W/C) (FIM): 5 Gait (FIM): 1 Gait Distance Comment: 20' Gait Level of Assist: 4 Gait Assistive Device: FWW PT Plan Problem List Problem List: Activity Tolerance, Functional Strength, Safety, Balance, Gait, Transfer, Bed Mobility, ROM Treatment/Plan Treatment Plan: Continue Plan of Care Treatment Plan: Bed Mobility, Education, Functional Activity Farshad, Functional Strength, Gait, Safety, Therapeutic Exercise, Transfers Treatment Duration: Apr 13, 2018 Frequency: 6 times per week Estimated Hrs Per Day: .25 hour per day (15-30') Patient and/or Family Agrees t: Yes Safety Risks/Education Patient Education: Correct Positioning, Disease Process, Safety Issues Teaching Recipient: Patient Teaching Methods: Demonstration, Discussion Response to Teaching: Reinforcement Needed Discharge Recommendations Plan Patient will perform bed mobility and transfer training, balance and endurance training, functional strengthening, stair training, gait training, and education , to improve functional mobility and independence at home. Therapy D/C Recommendations: Home w/ Family Support Time/GCodes Time In: 1310 Time Out: 1323 Total Billed Treatment Time: 13 Total Billed Treatment 1 visit BETTY SOTELO PT Apr 06, 2018 13:27
[2018-04-06] MEDS ORDERED: NON-FORMULARY MEDICATION 1 EA EA (Meclizine HCl 25 MG) PO PRN (14:00)
[2018-04-06] MEDS ORDERED: NITROGLYCERIN 0.4 MG SL TABS BTL 25'S SL PRN (14:00)
[2018-04-06] MEDS ORDERED: MECLIZINE 25 MG (ANTIVERT) TAB PO PRN (14:45)
[2018-04-06] MEDS ORDERED: INSULIN VIAL ASPART for PUMP 100 UNIT/ML VIAL SQ SCH (16:00)
[2018-04-06 16:35] VITALS: BP 159/81
[2018-04-06] MEDS: ASCORBIC ACID (VIT C) 500 MG TABLET PO SCH (17:25)
[2018-04-06 19:21] VITALS: BP 161/77
[2018-04-06] MEDS: ONDANSETRON 4 MG/2 ML (SDV) Z0FRAN IV PRN (19:51)
[2018-04-06] MEDS: inSUlin DETERMIR 1 UNIT/0.01 ML (LEVEMIR) CHARGE PER UNIT SQ SCH (19:55)
[2018-04-06] MEDS: TAMSULOSIN 0.4 MG (FLOMAX) CAP PO SCH (20:02)
[2018-04-06] MEDS: VALSARTAN 160 MG (DIOVAN) TABLET PO SCH (20:03)
[2018-04-06] MEDS: CARVEDILOL 12.5 MG (COREG) TABLET PO SCH (20:03)
[2018-04-06] MEDS: FOLIC ACID 1 MG TAB PO SCH (20:04)
[2018-04-06] MEDS: AMITRIPTYLINE 25 MG (ELAVIL) TAB PO SCH (20:06)
[2018-04-06] MEDS: FINASTERIDE (PROSCAR) 5 MG TAB PO SCH (20:06)
[2018-04-06] MEDS: DOCUSATE SODIUM 100 MG (COLACE) CAP PO SCH (20:11)
[2018-04-06] MEDS ORDERED: ASCORBIC ACID 500 MG PO SCH (21:00)
[2018-04-06] MEDS ORDERED: inSUlin DETERMIR 1000 UNITS/10 ML VIAL (LEVEMIR) SQ SCH (21:00)
[2018-04-06] MEDS ORDERED: NON-FORMULARY MEDICATION 1 EA EA (Valsartan 320 MG) PO SCH (21:00)
[2018-04-06] MEDS ORDERED: NON-FORMULARY MEDICATION 1 EA EA (Carvedilol 25 MG) PO SCH (21:00)
[2018-04-07 00:33] VITALS: BP 145/71
[2018-04-07 04:27] VITALS: BP 152/73
[2018-04-07 06:00] LABS: BASOPHILS % (AUTO) 0 % (0-10); EOSINOPHILS # (AUTO) 0.1 10^3/uL (0.0-0.3); EOSINOPHILS % (AUTO) 2 % (0-10); HEMATOCRIT 35 % (40-54); HEMOGLOBIN 12.4 G/DL (13.3-17.7); LYMPHOCYTES # (AUTO) 1.6 X 10^3 (1.0-4.0); LYMPHOCYTES % (AUTO) 25 % (12-44); MEAN CORPUSCULAR HEMOGLOBIN 32 PG (25-34); MEAN CORPUSCULAR HGB CONC 36 G/DL (32-36); MEAN CORPUSCULAR VOLUME 89 FL (80-99); MEAN PLATELET VOLUME 10.7 FL (7.4-10.4); MONOCYTES # (AUTO) 0.8 X 10^3 (0.0-1.0); MONOCYTES % (AUTO) 12 % (0-12); NEUTROPHILS % (AUTO) 62 % (42-75); PLATELET COUNT 135 10^3/uL (130-400); RED BLOOD COUNT 3.89 10^6/uL (4.35-5.85); RED CELL DISTRIBUTION WIDTH 15.4 % (10.0-14.5); WHITE BLOOD COUNT 6.4 10^3/uL (4.3-11.0)
[2018-04-07 06:20] LABS: CALCIUM 9.2 MG/DL (8.5-10.1); CREATININE SERUM 1.33 MG/DL (0.60-1.30); POTASSIUM 4.4 MMOL/L (3.6-5.0)
[2018-04-07] MEDS: CATHETER FLUSH 10 ML SYR IV SCH ×3 (06:43→20:55)
[2018-04-07] MEDS: inSUlin ASPART (NovoLOG) 1 UNIT/0.01 ML (CHARGE PER UNIT) SC SCH ×7 (06:43→20:51)
[2018-04-07] MEDS: ASCORBIC ACID (VIT C) 500 MG TABLET PO SCH ×2 (06:43→17:59)
[2018-04-07] MEDS: VENlafaxine XR 75 MG (EFFEXOR XR) CAP PO SCH (06:43)
[2018-04-07 08:00] VITALS: BP 124/60
[2018-04-07] MEDS: GEMFIBROZIL 600 MG (LOPID) TAB PO SCH (08:26)
[2018-04-07] MEDS: MAGNESIUM OXIDE (MAG-OX)400 MG TAB PO SCH (08:26)
[2018-04-07] MEDS: amLODIPine 10 MG (NORVASC) TAB PO SCH (08:26)
[2018-04-07] MEDS: ALLOPURINOL 100 MG (ZYLOPRIM) TAB PO SCH (08:26)
[2018-04-07] MEDS: inSUlin DETERMIR 1 UNIT/0.01 ML (LEVEMIR) CHARGE PER UNIT SQ SCH ×2 (08:26→20:50)
[2018-04-07] MEDS: CARVEDILOL 12.5 MG (COREG) TABLET PO SCH ×2 (08:26→20:51)
[2018-04-07] MEDS: CLOPIDOGREL 75 MG (PLAVIX) TABLET PO SCH (08:26)
[2018-04-07] MEDS: DOCUSATE SODIUM 100 MG (COLACE) CAP PO SCH ×2 (08:26→20:51)
[2018-04-07] MEDS: ASPIRIN E.C. 81 MG (ECOTRIN) TAB PO SCH (08:26)
[2018-04-07] MEDS: cefTRIAXone 2 GM/NS 50 ML IVPB IV SCH ×2 (08:27)
[2018-04-07] MEDS: ENOXAPARIN 40 MG/0.4 ML (LOVENOX) SYR SC SCH ×2 (08:33→20:50)
[2018-04-07] MEDS: FOLIC ACID 1 MG TAB PO SCH ×2 (08:33→20:51)
[2018-04-07] MEDS ORDERED: NON-FORMULARY MEDICATION 1 EA EA (Venlafaxine HCl (Venlafaxine HCl ER) 150 MG) PO SCH (09:00)
[2018-04-07] MEDS ORDERED: NON-FORMULARY MEDICATION 1 EA EA (Amlodipine Besylate 10 MG) PO SCH (09:00)
[2018-04-07] MEDS ORDERED: NON-FORMULARY MEDICATION 1 EA EA (Allopurinol 100 MG) PO SCH (09:00)
[2018-04-07] MEDS ORDERED: NON-FORMULARY MEDICATION 1 EA EA (Gemfibrozil 600 MG) PO SCH (09:00)
--- NOTE | 2018-04-07 09:50 | Physical Therapy Daily Note ---
PT Daily Note-Current Subjective Patient agrees to PT but states he is not going to do much. He denies dizziness on this date. Pain Numeric Pain Scale: 0-No Pain Location: No Pain Reported Pain Description: Acute Mental Status Patient Orientation: Normal For Age Transfers Functional [place] Measure 0=Not Assessed/NA 4=Minimal Assistance 1=Total Assistance 5=Supervision or Setup 2=Maximal Assistance 6=Modified [place] 3=Moderate Assistance 7=Complete IndependenceIRFPAI Quality Coding Scale 6 Independent with activity with or without an assistive device 5 Patient requires set up or clean up by helper. Patient completes activity by themselves 4 Supervision or touching assist (CGA). [place] provide cues , steadying assist 3 The helper provides less than half the effort to complete the activity 2 The helper provides more than half the effort to complete the activity 1 Dependent. The helper does all the effort to complete an activity 7 Patient refused to complete or attempt activity 9 The patient did not perform the activity before the current illness or injury 88 Not attempted due to Medical conditions or safety concerns Transfers (B, C, W/C) (FIM): 6 Scootin Rollin Supine to/from Sit: 6 Sit to/from Stand: 6 Weight Bearing Right Lower Extremity: Right Weight Bearing/Tolerated Left Lower Extremity: Left Weight Bearing/Tolerated Gait Training Gait (FIM): 2 Distance (FIM): 2=319-31 ft Distance: 75' Gait Level of Assist: 6 Gait Assistive Device: FWW functional gait sequence/does self limit with distance Assessment Patient declined exercises on this date. He is sitting EOB and OT present. PT Short Term Goals Short Term Goals Time Frame: Apr 13, 2018 Transfers (B,C,W/C) (FIM): 5 Gait (FIM): 1 Gait Distance Comment: 20' Gait Level of Assist: 4 Gait Assistive Device: FWW PT Plan Treatment/Plan Treatment Plan: Continue Plan of Care Treatment Plan: Bed Mobility, Education, Functional Activity Farshad, Functional Strength, Gait, Safety, Therapeutic Exercise, Transfers Treatment Duration: Apr 13, 2018 Frequency: 6 times per week Estimated Hrs Per Day: .25 hour per day (15-30') Patient and/or Family Agrees t: Yes Time/GCodes Time In: 930 Time Out: 940 Total Billed Treatment Time: 10 Total Billed Treatment 1 visit FA 10 min ROSELYN FREEMAN PT Apr 07, 2018 09:49
--- NOTE | 2018-04-07 10:31 | Occupational Ther Daily Note ---
OT Current Status-Daily Note Subjective Pt finishing up with PT. Pt agrees to therapy, no c/o pain at this time. C/o dizziness and nausea. Pt voiced that he has been having these symptoms for the past few years. Mental Status/Objective Patient Orientation: Person, Place, Time, Situation Functional [place] Measure 0=Not Assessed/NA 4=Minimal Assistance 1=Total Assistance 5=Supervision or Setup 2=Maximal Assistance 6=Modified [place] 3=Moderate Assistance 7=Complete [place] Attachments: Telemetry CPAP ADL-Treatment Pt agrees to shower. Pt able to doff socks sitting on EOB with opposite foot stepping on sock and pulling foot back. Pt stood to doff lower body clothing using grabbars and FWW. Transferred into shower using FWW, shower bench and grabbars with SBA. Using shower bench, hand held shower and long handle sponge pt able to complete bathing with supervision. Pt c/o nausea during shower. Pt able to stand and dry self using grabbars for stability and close SBA for safety. Pt transferred to toilet with FWW and grabbars to don lower body clothing. Pt donned underwear in sitting then stood to hike over hips, stood to don shorts over feet using grabbars for safety with CGA. Pt stood at sink with supervision using counter for stability. Pt ambulated back to bed. Pt able to go from sitting to supine by self. After therapy, pt lying in with CPAP. Call light/phone in reach. All needs met in room. Grooming (FIM): 5 Bathing (FIM): 5 Upper Body (FIM): 5 Lower Body Dressing (FIM): 4 Toileting (FIM): 5 Transfers (B, C, W/C) (FIM): 5 Toilet/Commode Transfer (FIM): 5 Shower Transfer(FIM): 5 OT Short Term Goals Short Term Goals Transfers (B,C,W/C) (FIM): 5 1=Demonstrate adherence to instructed precautions during ADL tasks. 2=Patient will verbalize/demonstrate understanding of assistive devices/ modifications for ADL. 3=Patient will improve strength/tolerance for activity to enable patient to perform ADL's. OT Intermediate Goals Intermediate Goals Time Frame: Apr 13, 2018 Grooming(FIM): 6 Bathing(FIM): 5 Upper Body Dressing(FIM): 6 Lower Body Dressing(FIM): 6 Toileting(FIM): 6 Toilet/Commode Transfer(FIM): 6 Additional Goals: 2-Verbalize Understanding, 3-ImproveStrength/Farshad 1=Demonstrate adherence to instructed precautions during ADL tasks. 2=Patient will verbalize/demonstrate understanding of assistive devices/ modifications for ADL. 3=Patient will improve strength/tolerance for activity to enable patient to perform ADL's. OT Education/Plan Problem List/Assessment Pt to benefit from skilled OT intervention for ADL training, transfers, strengthening, and home safety education to increase level of independence and allow safe discharge plan. Discharge Recommendations Plan/Recommendations: Continue POC Treatment Plan/Plan of Care Patient would benefit from OT for education, treatment and training to promote independence in ADL's, mobility, safety and/or upper extremity function for ADL' s. Plan of Care: ADL Retraining, Functional Mobility, UE Funct Exercise/Act Treatment Duration: Apr 13, 2018 Frequency: 5 times per week Estimated Hrs Per Day: .25 hour per day Rehab Potential: Fair Time/GCodes Start Time: 09:40 Stop Time: 10:18 Total Time Billed (hr/min): 38 Billed Treatment Time 1 visit-ADL 3 (38 min) MARIA A KEENE Apr 07, 2018 10:31
--- NOTE | 2018-04-07 10:31 | Progress Note-Hospitalist ---
Subjective HPI/CC On Admission Date Seen by Provider: Apr 07, 2018 Time Seen by Provider: 10:26 Pt is a 67yoCM with a PMH of CAD s/p CABG, IDDMII, vertigo who presented to the ER with CC of weakness. He states he fell three days ago in his kitchen because he was dizzy from his vertigo. Since that time he has felt very weakness and had a headache. Yesterday he was supposed to go to his ENT appointment but was too weak to get out of bed so he came to the ER for evaluation. On arrival he was found to have a one time fever of 100.8 with a mild leukocytosis of 12.3 and work up for infection was initiated. His chest x-ray was clear so he underwent a CT abdomen which revealed cholelithiasis without signs of cholecystitis. Given his headache, fever, and elevated lactic acid he was admitted due to concerns for possible meningitis as he was unable to have an LP done due to being on ASA and Plavix. This morning he states he is feeling better though still feels weak. He is overall much weaker than he was a month ago when he was admitted to [facility] for syncope. He underwent 5 weeks of skilled therapy at [facility] and was discharged two home two weeks ago and has gotten worse. Subjective/Events-last exam Pt reports feeling better today. Was unable to do much with PT yesterday. Sister at bedside and concerned about safety going home. Interested in IRU. Focused Exam Lactate Level 04/05/18 15:55: Lactic Acid Level 2.34*H 04/05/18 17:55: Lactic Acid Level 1.68 Objective Exam Vital Signs Vital Signs Date Time Temp Pulse Resp B/P (MAP) Pulse Ox O2 Delivery O2 Flow Rate FiO2 04/07/18 07:00 74 04/07/18 04:27 99.2 19 152/73 (99) 94 Room Air Capillary Refill : Less Than 3 SecondsLess Than 3 Seconds General Appearance: No Apparent Distress, WD/WN, Obese Respiratory: Lungs Clear, No Respiratory Distress Cardiovascular: Regular Rate, Rhythm, No Murmur Gastrointestinal: Normal Bowel Sounds, Non Tender, Soft Neurologic/Psychiatric: Alert, Oriented x3 Results/Procedures Lab Laboratory Tests 04/07/18 05:29 Patient resulted labs reviewed. Imaging: Reviewed Imaging Report Assessment/Plan Assessment and Plan Assess & Plan/Chief Complaint Fever Diagnosis/Problems Diagnosis/Problems (1) Fever Status: Acute Assessment & Plan: Fever resolved Unable to perform LP as on Plavix Discussed with Anesthesia and would have to hold Plavix for 1 week before able to perform LP Cultures back and negative- will DC antibiotics Unlikely to be meningitis Likely viral syndrome Qualifiers: Fever type: unspecified Qualified Codes: R50.9 - Fever, unspecified (2) Insulin dependent diabetes mellitus Status: Chronic Assessment & Plan: Resume home insulin (3) Vertigo Status: Acute Assessment & Plan: Continue Meclizine PT/OT consulted (4) CAD (coronary artery disease) Status: Chronic Assessment & Plan: Resume Plavix and ASA Qualifiers: Coronary Disease-Associated Artery/Lesion type: bypass graft [place] vs. transplanted heart: [place] heart Associated angina: without angina Qualified Codes: I25.810 - Atherosclerosis of coronary artery bypass graft(s) without angina pectoris (5) TREE (obstructive sleep apnea) Assessment & Plan: CPAP at bedside (6) Debility Assessment & Plan: PT/OT Discussed with IRU and they have graciously accepted him for therapy tomorrow Plan to DC to IRU tomorrow Clinical Quality Measures DVT/VTE Risk/Contraindication: Risk Factor Score Per Nursin RFS Level Per Nursing on Admit: 4+=Very High ANTONIO MICHAELS MD Apr 07, 2018 10:31 am
[2018-04-07 12:00] VITALS: BP 155/77
[2018-04-07 16:00] VITALS: BP 144/65
[2018-04-07 20:00] VITALS: BP 183/88
[2018-04-07] MEDS: AMITRIPTYLINE 25 MG (ELAVIL) TAB PO SCH (20:51)
[2018-04-07] MEDS: TAMSULOSIN 0.4 MG (FLOMAX) CAP PO SCH (20:52)
[2018-04-07] MEDS: FINASTERIDE (PROSCAR) 5 MG TAB PO SCH (20:52)
[2018-04-07] MEDS: VALSARTAN 160 MG (DIOVAN) TABLET PO SCH (20:55)
[2018-04-07] MEDS ORDERED: amLODIPine 5 MG (NORVASC) TAB PO ONE (22:15)
[2018-04-07] MEDS ORDERED: cloNIDine 0.1 MG (CATAPRES) TAB PO PRN (22:15)
[2018-04-08 00:20] VITALS: BP_SYST 161; BP_SYST 172; BP_DIAS 70; BP_DIAS 84
[2018-04-08 04:28] VITALS: BP 145/78
[2018-04-08] MEDS: VENlafaxine XR 75 MG (EFFEXOR XR) CAP PO SCH (06:36)
[2018-04-08] MEDS: inSUlin ASPART (NovoLOG) 1 UNIT/0.01 ML (CHARGE PER UNIT) SC SCH ×3 (06:36→09:54)
[2018-04-08] MEDS: ASCORBIC ACID (VIT C) 500 MG TABLET PO SCH (06:36)
[2018-04-08] MEDS: CATHETER FLUSH 10 ML SYR IV SCH ×2 (06:37→08:44)
[2018-04-08 08:00] VITALS: BP 153/71
[2018-04-08] MEDS: DOCUSATE SODIUM 100 MG (COLACE) CAP PO SCH (08:36)
[2018-04-08] MEDS: CLOPIDOGREL 75 MG (PLAVIX) TABLET PO SCH (08:37)
[2018-04-08] MEDS: ASPIRIN E.C. 81 MG (ECOTRIN) TAB PO SCH (08:37)
[2018-04-08] MEDS: MAGNESIUM OXIDE (MAG-OX)400 MG TAB PO SCH (08:37)
[2018-04-08] MEDS: amLODIPine 10 MG (NORVASC) TAB PO SCH (08:38)
[2018-04-08] MEDS: CARVEDILOL 12.5 MG (COREG) TABLET PO SCH (08:38)
[2018-04-08] MEDS: FOLIC ACID 1 MG TAB PO SCH (08:38)
[2018-04-08] MEDS: GEMFIBROZIL 600 MG (LOPID) TAB PO SCH (08:38)
[2018-04-08] MEDS: ENOXAPARIN 40 MG/0.4 ML (LOVENOX) SYR SC SCH (08:39)
[2018-04-08] MEDS: ALLOPURINOL 100 MG (ZYLOPRIM) TAB PO SCH (08:39)
[2018-04-08] MEDS: inSUlin DETERMIR 1 UNIT/0.01 ML (LEVEMIR) CHARGE PER UNIT SQ SCH (08:40)
[2018-04-08] MEDS: ONDANSETRON 4 MG/2 ML (SDV) Z0FRAN IV PRN (08:44)
--- NOTE | 2018-04-08 08:45 | Discharge Summary-Hospitalist ---
Diagnosis/Chief Complaint Date of Admission Apr 05, 2018 at 23:13 Date of Discharge Discharge Date: Apr 08, 2018 Admission Diagnosis fever Discharge Diagnosis (1) Fever Status: Resolved Assessment & Plan: Fever resolved Unable to perform LP as on Plavix Discussed with Anesthesia and would have to hold Plavix for 1 week before able to perform LP Cultures back and negative- will DC antibiotics Unlikely to be meningitis Likely viral syndrome (2) Insulin dependent diabetes mellitus Status: Chronic Assessment & Plan: Cont home insulin (3) Vertigo Status: Acute Assessment & Plan: Continue Meclizine PT/OT consulted (4) Debility Assessment & Plan: PT/OT DC to IRU (5) CAD (coronary artery disease) Status: Chronic Assessment & Plan: Resume Plavix and ASA (6) TREE (obstructive sleep apnea) Assessment & Plan: CPAP at bedside Discharge Summary Discharge Physical Exam Allergies: Coded Allergies: niacin (Unverified Allergy, Unknown, 06/26/10) rosuvastatin (Verified Allergy, Unknown, 04/20/07) fenofibrate (Unverified Adverse Reaction, Unknown, LIVER PROBLEMS, 01/23/15 ) Vitals & I&Os Vital Signs Date Time Temp Pulse Resp B/P (MAP) Pulse Ox O2 Delivery O2 Flow Rate FiO2 04/08/18 07:00 68 04/08/18 04:28 97.3 20 145/78 (100) 98 Room Air General Appearance: No Apparent Distress, WD/WN, Obese Respiratory: Lungs Clear, No Respiratory Distress Cardiovascular: Regular Rate, Rhythm, No Murmur Hospital Course Pt was admitted for fever and headache to rule out meningitis. He was started on 2g Rocephin. LP was unable to be obtained due to him being on Plavix. His symptoms resolved and due to him being clinically well antibiotics were discontinued and his symptoms were likely due to a viral syndrome. He was evaluated by therapy due to his overall debility and deemed a candidate for inpatient rehab. He was discharged to IRU in stable condition. Labs (last 24 hrs) Laboratory Tests 04/07/18 09:42: Glucometer 355H 04/07/18 14:30: Glucometer 277H 04/07/18 20:18: Glucometer 336H 04/08/18 05:19: Glucometer 269H Microbiology 04/05/18 Blood Culture - Preliminary, Resulted No growth 04/05/18 Urine Culture - Final, Complete NO GROWTH Patient resulted labs reviewed. Pending Labs Laboratory Tests 04/08/18 05:19: Glucometer 269 Imaging: Reviewed Imaging Report Discussion & Recommendations Discharge Planning: >30 minutes discharge planning Discharge Home Medications: Active Scripts Active Reported Meclizine HCl 12.5 Mg Tablet 25 Mg PO Q6H PRN Milk of Magnesia (Magnesium Hydroxide) 400 Mg/5 Ml Oral.susp 30 Ml PO DAILY PRN Aleve (Naproxen Sodium) 220 Mg Capsule 440 Mg PO Q12H PRN Nitroglycerin 0.4 Mg Tab.subl 0.4 Mg SL DAILY PRN Tylenol Extra Strength (Acetaminophen) 500 Mg Tablet 1,000 Mg PO Q4H PRN Amitriptyline HCl 25 Mg Tablet 25 Mg PO HS Tamsulosin HCl 0.4 Mg Cap.er.24h 0.4 Mg PO HS Finasteride 5 Mg Tablet 5 Mg PO HS Vitamin D3 (Cholecalciferol (Vitamin D3)) 1,000 Unit Capsule 1,000 Unit PO BID Colace (Docusate Sodium) 100 Mg Capsule 100 Mg PO BID Ascorbic Acid 250 Mg Tablet 500 Mg PO BID Calcium 600 + Vit D 400 Tablet (Calcium Carbonate/Vitamin D3) 1 Each Tablet 1 Tab PO DAILY Aspirin EC (Aspirin) 81 Mg Tablet.dr 81 Mg PO DAILY Magnesium Oxide 400 Mg Tablet 400 Mg PO DAILY Fish Oil 1,000 mg Softgel ([place]-3/Dha/Epa/Fish Oil) 1 Each Capsule 1,000 Mg PO BID Ondansetron Odt (Ondansetron) 8 Mg Tab.rapdis 8 Mg PO Q6H PRN Levemir (Insulin Determir) 1,000 Units/10 Ml Soln 67 Units SC BID Novolog (Insulin Aspart) 100 Unit/1 Ml Susp 15 Units SC AC Venlafaxine HCl ER (Venlafaxine HCl) 150 Mg Cap.er.24h 150 Mg PO DAILY Carvedilol 25 Mg Tablet 25 Mg PO BID Amlodipine Besylate 10 Mg Tablet 10 Mg PO DAILY Valsartan 320 Mg Tablet 320 Mg PO HS Allopurinol 100 Mg Tablet 100 Mg PO DAILY Gemfibrozil 600 Mg Tablet 600 Mg PO DAILY Clopidogrel (Clopidogrel Bisulfate) 75 Mg Tablet 75 Mg PO DAILY Folic Acid 1 Mg Tablet 1 Mg PO BID Vitamin E (Vitamin E Acetate) 400 Unit Capsule 800 Unit PO DAILY Instructions to patient/family Please see electronic discharge instructions given to patient. Clinical Quality Measures DVT/VTE Risk/Contraindication: Risk Factor Score Per Nursin RFS Level Per Nursing on Admit: 4+=Very High Copy Copies To 1: GIL KAHN DO Problem Qualifiers (1) Fever: Fever type: unspecified Qualified Codes: R50.9 - Fever, unspecified (2) CAD (coronary artery disease): Coronary Disease-Associated Artery/Lesion type: bypass graft [place] vs. transplanted heart: [place] heart Associated angina: without angina Qualified Codes: I25.810 - Atherosclerosis of coronary artery bypass graft(s) without angina pectoris ANTONIO MICHAELS MD Apr 08, 2018 08:45
[2018-04-08 10:00] VITALS: BP 153/71
== END 2018-04-08 10:00 | DRG 866 ==
LOC: EDUNIT# 15:44 → ER 15:45 → 4TH 23:13
PROVIDERS: ADMIT Internal Medicine; ATTEND Internal Medicine
DX: B34.9 Viral infection, unspecified (principal); R50.9 Fever, unspecified; R51 Headache; Z68.41 Body mass index [BMI] 40.0-44.9, adult; I25.810 Atherosclerosis of coronary artery bypass graft(s) without angina pectoris; R42 Dizziness and giddiness; E86.0 Dehydration; R10.11 Right upper quadrant pain; R11.2 Nausea with vomiting, unspecified; R53.1 Weakness; R53.81 Other malaise; E11.9 Type 2 diabetes mellitus without complications; G47.33 Obstructive sleep apnea (adult) (pediatric); E66.01 Morbid (severe) obesity due to excess calories; J44.9 Chronic obstructive pulmonary disease, unspecified; I10 Essential (primary) hypertension; B36.0 Pityriasis versicolor; I25.2 Old myocardial infarction; E78.00 Pure hypercholesterolemia, unspecified; G62.9 Polyneuropathy, unspecified; M19.91 Primary osteoarthritis, unspecified site; M54.9 Dorsalgia, unspecified; K80.20 Calculus of gallbladder without cholecystitis without obstruction; Z95.1 Presence of aortocoronary bypass graft; Z95.5 Presence of coronary angioplasty implant and graft; Z79.4 Long term (current) use of insulin; Z79.02 Long term (current) use of antithrombotics/antiplatelets; Z79.82 Long term (current) use of aspirin; Z91.81 History of falling
CPT/HCPCS: 36415; 70450; 71045; 72125; 74177; 80048; 80053; 81000; 82962; 83605; 83690; 85025; 85610; 85730; 86141; 87040; 87088; 96361; 96365; 96367; 96375

== ENCOUNTER 2018-04-08 10:10 | Inpatient (IN) | payer MEDICARE ==
[~2018-04-08] VITALS: Ht 182.9 cm; Wt 151.5 kg
[2018-04-08 10:10] VITALS: BP 180/94
[~2018-04-08 10:10] MED LIST changes: +ACET-2267 PO; +AMIT25TA9 PO; +ASCO250T6 PO; +ASPI-983 PO; +CALC1TAB94 PO; +CHOL10007 PO; +DOCU-143 PO; +FINA5TAB6 PO; +INSU100V16 SC; +INSU100V5 SC; +LOSA100T8 PO; +MAGN400O7 PO; +MECL12.579 PO; +NAPR220C11 PO; +NITR0.4T42 SL; +OMEG-160 PO; +ONDA8TAB13 PO; +TAMS0.4C2 PO
--- OUTSIDE RECORDS SUMMARY | 2018-04-08 11:18 | XMS REPORT | Clinical Summary ---
Author Author [facility] Organization [facility] Address Unknown Phone Unavailable Care Team Providers Care Hospital Secretary Name Role Phone Kiel Mayer MD Unavailable [...] in the Health Information Management department at [phone] for further assistance in locating additional records.[facility] Allergies Active Allergy Reactions Severity Noted [...] Diabetes mellitus type 2 with complications, uncontrolled ([facility]) 07/15/2011 Overview: Diagnosed around 2004, but thinks he had diabetes as early as 1999. Morbidly obese ([facility]) 07/15/2011 CAD (coronary artery disease) [...]
--- OUTSIDE RECORDS SUMMARY | 2018-04-08 11:22 | XMS REPORT | Continuity of Care Document ---
Author Author [facility] Organization [facility] Address Unknown Phone Unavailable Allergies Active Description Code Type Severity Reaction Onset Reported/Identified Relationship to Patient Clinical Status Yes rosuvastatin [id number] Drug Allergy Unknown N/A 04/20/2007 Yes niacin [id number] Drug Allergy Unknown N/A 06/26/2010 Yes fenofibrate [id number] Drug Allergy Unknown LIVER PROBLEMS 01/23/2015 Medications [...] NOS 11/08/2010 Ot 414.01 CORONARY ATHEROSCLEROSIS OF [place] CORON 11/08/2010 Ot 414.04 CORON ATHEROSCLER ART [...] HYPERTENSION 05/02/2012 Ot 414.01 CORONARY ATHEROSCLEROSIS OF [place] CORON 05/02/2012 Ot 414.8 CHR ISCHEMIC HRT [...] MD, Ot I25.10 ATHSCL HEART DISEASE OF [place] CORONARY 08/07/2015 BARBIE ALFRED MD, Ot I27.2 OTHER SECONDARY PULMONARY HYPERTENSION 08/07/2015 BARBIE ALFRED MD, Ot I65.23 OCCLUSION AND STENOSIS OF BILATERAL TRAN 08/07/2015 BARBIE ALFRED MD, Ot I70.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 [place] ARTERIES OF EXTREMITI 08/07/2015 BARBIE ALFRED MD, Ot J44.9 CHRONIC OBSTRUCTIVE PULMONARY DISEASE, U 08/07/2015 BARBIE ALFRED MD, Ot M79.609 PAIN IN UNSPECIFIED LIMB 08/07/2015 BARBIE ALFRED MD, Ot Z68.42 BODY MASS INDEX (BMI) 45.0-49.9, ADULT 08/07/2015 BARBIE ALFRED MD, Ot Z79.02 [facility]CI (CURRENT) USE OF ANTITHROMBOTI 08/07/2015 BARBIE ALFRED MD, Ot Z79.4 PRIVATE INVESTIGATOR (CURRENT) USE OF INSULIN 08/07/2015 BARBIE ALFRED MD, Ot Z79.899 OTHER [facility] (CURRENT) DRUG THERAPY 08/07/2015 BARBIE ALFRED MD, [...] HAND 12/10/2015 JUDY CABRALES MD, Ot Z79.2 [facility]CI (CURRENT) USE OF ANTIBIOTICS 12/12/2015 JUDY CABRALES MD, Ot M86.242 SUBACUTE OSTEOMYELITIS, LEFT HAND 12/12/2015 JUDY CABRALES MD, Ot Z79.2 PRIVATE INVESTIGATOR (CURRENT) USE OF ANTIBIOTICS 12/17/2015 JUDY CABRALES MD Ot B95.61 METHICILLIN SUSCEP STAPH INFCT CAUSING D 12/17/2015 JUDY CABRALES MD Ot M86.242 SUBACUTE OSTEOMYELITIS, LEFT HAND 12/17/2015 JUDY CABRALES MD Ot Z79.2 PRIVATE INVESTIGATOR (CURRENT) USE OF ANTIBIOTICS 12/24/2015 JUDY CABRALES [...] HAND 01/08/2016 JUDY CABRALES MD Ot Z79.2 PRIVATE INVESTIGATOR (CURRENT) USE OF ANTIBIOTICS 01/08/2016 JUDY CABRALES MD Ot M86.242 SUBACUTE OSTEOMYELITIS, LEFT HAND 01/08/2016 JUDY CABRALES MD, Ot Z79.2 FCI (CURRENT) USE OF ANTIBIOTICS 01/08/2016 JUDY CABRALES MD Ot B95.61 METHICILLIN SUSCEP STAPH INFCT CAUSING D 01/08/2016 JUDY CABRALES MD Ot M86.242 SUBACUTE OSTEOMYELITIS, LEFT HAND 01/08/2016 JUDY CABRALES MD, Ot Z79.2 PRIVATE INVESTIGATOR (CURRENT) USE OF ANTIBIOTICS 01/16/2016 JUDY CABRALES MD Ot B95.61 METHICILLIN SUSCEP STAPH INFCT CAUSING D 01/16/2016 JUDY CABRALES MD Ot M86.242 SUBACUTE OSTEOMYELITIS, LEFT HAND 01/17/2016 JUDY CABRALES MD Ot B95.61 METHICILLIN SUSCEP STAPH INFCT CAUSING D 01/17/2016 JUDY CABRALES MD Ot M86.242 SUBACUTE OSTEOMYELITIS, LEFT HAND 01/17/2016 JUDY CABRALES MD, Ot Z79.2 FCI (CURRENT) USE OF ANTIBIOTICS 01/24/2016 JUDY CABRALES MD Ot A49.01 METHICILLIN SUSCEP STAPH INFECTION, UNSP 01/24/2016 JUDY CABRLAES MD Ot M86.242 SUBACUTE OSTEOMYELITIS, LEFT HAND 01/24/2016 JUDY CABRALES MD, Ot Z79.2 PRIVATE INVESTIGATOR (CURRENT) USE OF ANTIBIOTICS 01/28/2016 JUDY CABRALES MD Ot B95.61 METHICILLIN SUSCEP STAPH INFCT CAUSING D 01/28/2016 JUDY CABRALES MD Ot M86.242 SUBACUTE OSTEOMYELITIS, LEFT HAND 01/28/2016 JUDY CABRALES MD, Ot Z79.2 FCI (CURRENT) USE OF ANTIBIOTICS 04/01/2016 Ot 401.9 HYPERTENSION NOS 04/01/2016 Ot 414.00 CORON ATHEROSCLER NOS TYPE VESSEL, NATIV 04/01/2016 Ot 401.9 HYPERTENSION NOS 04/01/2016 Ot 414.00 CORON ATHEROSCLER NOS TYPE VESSEL, NATIV 04/01/2016 Ot 780.2 SYNCOPE AND COLLAPSE 04/01/2016 Ot V64.3 NO PROC FOR REASONS NEC 04/01/2016 BARBIE ALFRED MD Ot 414.01 CORONARY ATHEROSCLEROSIS OF [place] CORON 04/01/2016 AUBRIE MD, BASHAR J Ot 786.50 CHEST PAIN NOS 04/01/2016 BARBIE ALFERD MD Ot 250.00 DIAB ANU WO COMPL, [...] MD, Ot I25.10 ATHSCL HEART DISEASE OF [place] CORONARY 04/01/2016 BARBIE ALFRED MD Ot I65.23 OCCLUSION AND STENOSIS OF BILATERAL TRAN 04/01/2016 JUDY CABRALES MD Ot B95.61 METHICILLIN SUSCEP STAPH INFCT CAUSING D 04/01/2016 JUDY CABRALES MD Ot M86.9 OSTEOMYELITIS, UNSPECIFIED 04/01/2016 JUDY CABRALES MD Ot A49.01 METHICILLIN SUSCEP STAPH INFECTION, UNSP 04/01/2016 JUDY CABRALES MD, Ot M86.242 SUBACUTE OSTEOMYELITIS, LEFT HAND 04/01/2016 JUDY CABRALES MD Ot Z79.2 PRIVATE INVESTIGATOR (CURRENT) USE OF ANTIBIOTICS 04/01/2016 JUDY CABRALES MD Ot M86.242 SUBACUTE OSTEOMYELITIS, LEFT HAND 04/01/2016 JUDY CABRALES MD Ot Z79.2 PRIVATE INVESTIGATOR (CURRENT) USE OF ANTIBIOTICS 04/01/2016 JUDY CABRALES MD Ot B95.61 METHICILLIN SUSCEP STAPH INFCT CAUSING D 04/01/2016 JUDY CABRALES MD Ot M86.242 SUBACUTE OSTEOMYELITIS, LEFT HAND 04/01/2016 JUDY CABRALES MD Ot Z79.2 FCI (CURRENT) USE OF ANTIBIOTICS 04/01/2016 JUDY CABRALES MD Ot B95.61 METHICILLIN SUSCEP STAPH INFCT CAUSING D 04/01/2016 JUDY CABRALES MD Ot M86.242 SUBACUTE OSTEOMYELITIS, LEFT HAND 04/01/2016 JUDY CABRALES MD Ot A49.01 METHICILLIN SUSCEP STAPH INFECTION, UNSP 04/01/2016 JUDY CABRALES MD Ot M86.242 SUBACUTE OSTEOMYELITIS, LEFT HAND 04/01/2016 JUDY CABRALES MD, Ot Z79.2 FCI (CURRENT) USE OF ANTIBIOTICS 04/01/2016 JUDY CABRALES MD Ot B95.61 METHICILLIN SUSCEP STAPH INFCT CAUSING D 04/01/2016 JUDY CABRALES MD Ot M86.242 SUBACUTE OSTEOMYELITIS, LEFT HAND 04/01/2016 JUDY CABRALES MD Ot Z79.2 FCI (CURRENT) USE OF ANTIBIOTICS 04/02/2016 GIL KAHN [...] ALFRED MD Ot 414.01 CORONARY ATHEROSCLEROSIS OF [place] CORON 06/02/2016 BARBIE LAFRED MD Ot 786.50 CHEST PAIN NOS 06/02/2016 [...] MD Ot I25.10 ATHSCL HEART DISEASE OF [place] CORONARY 06/02/2016 BARBIE ALFRED MD Ot I65.23 OCCLUSION AND STENOSIS OF BILATERAL TRAN 06/02/2016 JUDY CABRALES MD Ot B95.61 METHICILLIN SUSCEP STAPH INFCT CAUSING D 06/02/2016 JUDY CABRALES MD Ot M86.9 OSTEOMYELITIS, UNSPECIFIED 06/02/2016 JUDY CABRALES MD Ot A49.01 METHICILLIN SUSCEP STAPH INFECTION, UNSP 06/02/2016 JUDY CABRALES MD, Ot M86.242 SUBACUTE OSTEOMYELITIS, LEFT HAND 06/02/2016 JUDY CABRALES MD, Ot Z79.2 FCI (CURRENT) USE OF ANTIBIOTICS 06/02/2016 JUDY CABRALES MD, Ot M86.242 SUBACUTE OSTEOMYELITIS, LEFT HAND 06/02/2016 JUDY CABRALES MD, Ot Z79.2 FCI (CURRENT) USE OF ANTIBIOTICS 06/02/2016 JUDY CABRALES MD Ot B95.61 METHICILLIN SUSCEP STAPH INFCT CAUSING D 06/02/2016 JUDY CABRALES MD, Ot M86.242 SUBACUTE OSTEOMYELITIS, LEFT HAND 06/02/2016 JUDY CABRALES MD, Ot Z79.2 PRIVATE INVESTIGATOR (CURRENT) USE OF ANTIBIOTICS 06/02/2016 JUDY CABRALES MD Ot B95.61 METHICILLIN SUSCEP STAPH INFCT CAUSING D 06/02/2016 JUDY CABRALES MD, Ot M86.242 SUBACUTE OSTEOMYELITIS, LEFT HAND 06/02/2016 JUDY CABRALES MD, Ot A49.01 METHICILLIN SUSCEP STAPH INFECTION, UNSP 06/02/2016 JUDY CABRALES MD, Ot M86.242 SUBACUTE OSTEOMYELITIS, LEFT HAND 06/02/2016 JUDY CABRALES MD, Ot Z79.2 PRIVATE INVESTIGATOR (CURRENT) USE OF ANTIBIOTICS 06/02/2016 JUDY CABRALES MD Ot B95.61 METHICILLIN SUSCEP STAPH INFCT CAUSING D 06/02/2016 JUDY CABRALES MD, Ot M86.242 SUBACUTE OSTEOMYELITIS, LEFT HAND 06/02/2016 JUDY CABRALES MD, Ot Z79.2 PRIVATE INVESTIGATOR (CURRENT) USE OF ANTIBIOTICS 06/02/2016 GIL KAHN [...] STATUS 07/08/2016 PRIMO FRANCOIS APRN Ot Z79.02 FCI (CURRENT) USE OF ANTITHROMBOTI 07/08/2016 PRIMO FRANCOIS APRN Ot Z79.82 PRIVATE INVESTIGATOR (CURRENT) USE OF ASPIRIN 07/08/2016 PRIMO FRANCOIS APRN Ot Z79.84 PRIVATE INVESTIGATOR (CURRENT) USE OF ORAL HYPOGLYC 07/08/2016 PRIMO FRANCOIS APRN Ot Z79.899 OTHER [facility] (CURRENT) DRUG THERAPY 07/08/2016 PRIMO FRANCOIS APRN [...] STATUS 07/09/2016 PRIMO FRANCOIS APRN Ot Z79.02 FCI (CURRENT) USE OF ANTITHROMBOTI 07/09/2016 PRIMO FRANCOIS APRN Ot Z79.82 FCI (CURRENT) USE OF ASPIRIN 07/09/2016 PRIMO FRANCOIS APRN Ot Z79.84 FCI (CURRENT) USE OF ORAL HYPOGLYC 07/09/2016 PRIMO FRANCOIS APRN Ot Z79.899 OTHER [facility] (CURRENT) DRUG THERAPY 07/09/2016 PRIMO FRANCOIS APRN [...] ADULT 11/11/2016 CASSY PALACIO MD Ot Z79.4 FCI (CURRENT) USE OF INSULIN 11/11/2016 CASSY PALACIO [...] ADULT 11/13/2016 CASSY PALACIO MD Ot Z79.4 PRIVATE INVESTIGATOR (CURRENT) USE OF INSULIN 11/13/2016 CASSY PALACIO [...] MD, Ot I25.10 ATHSCL HEART DISEASE OF [place] CORONARY 11/18/2016 ARMEN TENORIO MD, Ot I65.29 OCCLUSION AND STENOSIS OF UNSPECIFIED CA 11/18/2016 ARMEN TENORIO MD, Ot L03.115 CELLULITIS OF RIGHT LOWER LIMB 11/18/2016 ARMEN TENORIO MD, Ot Z68.42 BODY MASS INDEX (BMI) 45.0-49.9, ADULT 11/18/2016 ARMEN TENORIO MD, Ot Z79.4 PRIVATE INVESTIGATOR (CURRENT) USE OF INSULIN 11/18/2016 ARMEN TENORIO [...] Braden Ot I25.10 ATHSCL HEART DISEASE OF [place] CORONARY 02/09/2018 NORBERTO CHAO MISAEL Asiya Ot [...] 02/09/2018 NORBERTO CHAO MISAEL Asiya Ot Z79.02 FCI (CURRENT) USE OF ANTITHROMBOTI 02/09/2018 NORBERTO CHAO MISAEL Asiya Ot Z79.4 PRIVATE INVESTIGATOR (CURRENT) USE OF INSULIN 02/09/2018 NORBERTO CHAO MISAEL Asiya Ot Z79.82 FCI (CURRENT) USE OF ASPIRIN 02/09/2018 NORBERTO CHAO [...] Braden Ot I25.10 ATHSCL HEART DISEASE OF [place] CORONARY 02/25/2018 NORBERTO CHAO MISAEL Braden Ot I25.2 OLD MYOCARDIAL INFARCTION 02/25/2018 NORBERTO CHAO MISAEL Braden Ot J44.9 CHRONIC OBSTRUCTIVE PULMONARY DISEASE, U 02/25/2018 NORBERTO CHAO MISAEL Barden Ot M25.511 PAIN IN RIGHT SHOULDER 02/25/2018 NORBERTO CHAO MISAEL Aisya Ot M54.2 CERVICALGIA 02/25/2018 NORBERTO CHAO MISAEL Braden Ot N28.9 DISORDER OF KIDNEY AND URETER, UNSPECIFI 02/25/2018 NORBERTO CHAO MISAEL Braden Ot R10.31 RIGHT LOWER QUADRANT PAIN 02/25/2018 NORBERTO CHAO MISAEL Braden Ot R55 SYNCOPE AND COLLAPSE 02/25/2018 NORBERTO CHAO MISAEL Braden Ot Z79.02 FCI (CURRENT) USE OF ANTITHROMBOTI 02/25/2018 NORBERTO CHAO MISAEL Asiya Ot Z79.4 FCI (CURRENT) USE OF INSULIN 02/25/2018 NORBERTO CHAO MISAEL Asiya Ot Z79.82 FCI (CURRENT) USE OF ASPIRIN 02/25/2018 NORBERTO CHAO [...] Status Pt. Type Provider Facility Loc./Unit Complaint [id number] 02/09/2018 14:37:00 02/09/2018 18:46:00 DIS Emergency MISAEL THORNTON DO [facility] ER FALL/POSS HEAD INJURY [id number] 10/11/2017 13:32:00 10/11/2017 23:59:59 CLS Outpatient GIL KAHN DO [facility] RAD TRAUMA,M79.642, M79.672 [id number] 11/13/2016 10:31:00 11/18/2016 12:36:00 DIS Inpatient COBY FRANCO, ARMEN Cash [facility] IRF DEBILITY [id number] 11/10/2016 12:25:00 11/13/2016 10:30:00 DIS Inpatient HAKEEM FRANCO, CASSY Braden [facility] 4TH CELLULITIS KLE [id number] 07/08/2016 12:07:00 07/08/2016 13:41:00 DIS Emergency PRIMO FRANCOIS APRN [facility] ER FALL/RIGHT FOOT PAIN [id number] 07/01/2016 10:00:00 07/01/2016 23:59:59 CLS Preadmit GIL KAHN DO [facility] CR ACB REDO [id number] 06/24/2016 11:09:00 06/30/2016 00:01:00 DIS Outpatient GIL KAHN DO [facility] CR ACB REDO [id number] 06/01/2016 16:44:00 06/01/2016 23:59:59 CLS Outpatient GIL KAHN DO [facility] RAD HEADACHE,SEVERE VERTIGO [id number] 01/06/2016 16:41:00 01/06/2016 23:59:59 CLS Outpatient JUDY CABRALES MD [facility] HH OSTEOMYLITIS LEFT FINGER, MSSA INFECTION [id number] 12/30/2015 14:44:00 12/30/2015 23:59:59 CLS Outpatient JUDY CABRALES MD [facility] HH OSTEOMYLITIS LEFT FINGER, MSSA INFECTION [id number] 12/23/2015 16:18:00 12/23/2015 23:59:59 CLS Outpatient JUDY CABRALES MD [facility] HH OSTEOMYLITIS LEFT FINGER, MSSA INFECTION [id number] 12/16/2015 13:01:00 12/16/2015 23:59:59 CLS Outpatient JUDY CABRALES MD [facility] HH OSTEOMYLITIS LEFT FINGER, MSSA INFECTION [id number] 12/12/2015 11:43:00 12/12/2015 23:59:59 CLS Outpatient SAMRA MD, JUDY J [facility] OSTEOMYLITIS (L) THUMB [id number] 12/09/2015 10:44:00 12/09/2015 23:59:59 CLS Outpatient JUDY CABRALES MD [facility] OSTEOMYLITIS LT FINGER ,MSSA INFECTION [id number] 12/06/2015 10:50:00 12/06/2015 12:00:00 DIS Outpatient ELMO DAWN MD [facility] WOUNDCARE [id number] 12/02/2015 15:53:00 12/02/2015 23:59:59 CLS Outpatient JUDY CABRALES MD [facility] OSTEOMYLITIS LEFT FINGER, MSSA INFECTION [id number] 08/07/2015 07:10:00 08/07/2015 14:05:00 DIS Outpatient BARBIE ALFRED MD [facility] CATH PAD,CLAUDICATION,SHORT OF BREATH,HTN,DM,HLP [id number] 06/19/2015 11:52:00 06/19/2015 23:59:59 CLS Outpatient BARBIE ALFRED MD [facility] CARD CAD,ASHLY,HTN,HLP [id number] 01/23/2015 19:06:00 01/29/2015 12:32:00 DIS Inpatient GIL KAHN DO [facility] 4TH HYPONATREMIA, SCIATICA [id number] 06/13/2014 14:05:00 06/13/2014 23:59:59 CLS Outpatient GIL KAHN DO [facility] RT DSYPNEA [id number] 03/07/2014 12:28:00 03/07/2014 23:59:59 CLS Outpatient GIL KAHN DO [facility] RAD TRAUMATIC BRAIN INJURY,TRAUMA [id number] 06/14/2013 07:34:00 06/14/2013 23:59:59 CLS Outpatient BARBIE ALFRED MD [facility] RAD CAD,CP,DIZZINESS [id number] 06/09/2013 09:46:00 06/09/2013 23:59:59 CLS Outpatient AUBRIE FRANCO BARBIE Murray [facility] CARD CAD,CP,DIZZINESS [id number] 08/07/2015 07:09:00 Document Registration [id number] 04/27/2012 12:29:00 Document Registration [id number] 09/23/2011 11:18:00 Document Registration [id number] 11/26/2010 07:10:00 Document Registration [id number] 11/24/2010 07:01:00 Document Registration [id number] 11/07/2010 11:15:00 Document Registration [id number] 11/03/2010 09:00:00 Document Registration [id number] 06/26/2010 17:20:00 Document Registration [id number] 02/24/2010 06:59:00 Document Registration [id number] 01/23/2015 16:40:45 ACT Document Registration
--- NOTE | 2018-04-08 11:55 | Physical Therapy Evaluation ---
PT Evaluation-General Medical Diagnosis Admission Date Apr 08, 2018 at 10:10 Medical Diagnosis: disuse myopathy Onset Date: Apr 05, 2018 Therapy Diagnosis Therapy Diagnosis: impaired mobility, strength, balance, and endurance Height/Weight Height (Feet): 6 Height (Inches): 0.00 Weight (Pounds): 330 Weight (Ounces): 0.0 Precautions Precautions/Isolations: Fall Prevention, Standard Precautions Weight Bear Status Right Lower Extremity: Right Weight Bearing/Tolerated Left Lower Extremity: Left Weight Bearing/Tolerated Referral Physician: Eduardo Reason for Referral: Evaluation/Treatment Medical History Pertinent Medical History: Arthritis, CABG, CAD, COPD, DM, HTN, [place], Neuropathy Reviewed History: Yes Social History Home: Single Level Current Living Status: Alone Entry Into Home: Stairs Without Railing PT Steps Into Home: 3 PT Steps Inside Home: 0 Prior/Core FIM Prior Level of Function Functional [place] Measure 0=Not Assessed/NA 4=Minimal Assistance 1=Total Assistance 5=Supervision or Setup 2=Maximal Assistance 6=Modified [place] 3=Moderate Assistance 7=Complete [place] Bed Mobility: 7 Transfers (B,C,W/C) (FIM): 7 Gait: 6 Pt states he was independent w/ all activity, but did use a cane to ambulate in the community due to dizziness PT Evaluation-Current Subjective Pt in recliner pre tx, agrees to PT, no complaints of pain. Pt states he gets dizzy when sitting too long or when trying to stand. Pt/Family Goals to be independent at home Objective Patient Orientation: Person, Place, Time ROM/Strength ROM Lower Extremities WFL Strenght Lower Extremities RLE (hip flexion 3-/5, knee ext 4/5, knee flexion 4/5, dorsiflexion 5/5, plantarflexion, 4/5) LLE (hip flexion 3+/5, knee ext. 4/5, knee flexion 3+/5, dorsiflexion 4/5, plantarflexion 4/5) Neuromuscular (Tone, Coordination, Reflexes) Pt notes occasional bouts of dizziness when sitting too long and during transfers Sensory Vision: Functional Hearing: Functional Sensation Right Lower Extremit: Impaired Sensation Left Lower Extremity: Impaired Sensation Lower Extremities Pt states he has neuropathy, diminished sensation below the knees bilaterally, unable to feel touch in B medial calf and foot Transfers Functional [place] Measure 0=Not Assessed/NA 4=Minimal Assistance 1=Total Assistance 5=Supervision or Setup 2=Maximal Assistance 6=Modified [place] 3=Moderate Assistance 7=Complete IndependenceIRFPAI Quality Coding Scale 6 Independent with activity with or without an assistive device 5 Patient requires set up or clean up by helper. Patient completes activity by themselves 4 Supervision or touching assist (CGA). [place] provide cues , steadying assist 3 The helper provides less than half the effort to complete the activity 2 The helper provides more than half the effort to complete the activity 1 Dependent. The helper does all the effort to complete an activity 7 Patient refused to complete or attempt activity 9 The patient did not perform the activity before the current illness or injury 88 Not attempted due to Medical conditions or safety concerns Transfers (B, C, W/C) (FIM): 5 Scootin Rollin Roll Left to Right (QC): 4 Supine to/from Sit: 5 Sit to/from Stand: 5 Sit to Lying (QC): 4 Lying to Sitting/Side of Bed(Q: 4 Sit to Stand (QC): 4 Chair/Ksg-ou-Odmrp Xfer(QC): 4 Car Transfer (QC): 4 SBA w/ all transfers, pt pushes from armrests for sit<->stand w/o cueing, pt tends to flop onto bed during sit->supine, but needs no assistance getting into bed. Gait Does the Patient Walk?: Yes Mode of Locomotion: Walk Anticipated Mode of Locomotion: Walk Gait (FIM): 4 Walk 10 feet (QC): 4 Walk 50 ft with 2 Turns(QC): 4 Walk 150 ft (QC): 4 Walking 10ft/uneven surface-QC: 4 Distance: 150'x2 Gait Level of Assist: 4 Gait Persons Needed: 1 Gait Assistive Device: FWW Comments/Gait Description Pt ambulates to/from gym w/ CGA using FWW. Gait is steady, but pt occasionally needs standing rest breaks to combat dizziness. Stairs Stairs (FIM): 2 #of Steps: 8 Level of Assist: 4 1 Step (curb) (QC): 5 4 Steps (QC): 5 12 Steps (QC): 88 Pt able to ascend/descend 8 stairs w/ CGA and use of 2 railings, w/ step-to pattern. Pt unable to continue after 8 stairs due to fatigue Balance Sitting Static: Normal Sitting Dynamic: Normal Standing Static: Fair Standing Dynamic: Fair Picking up an Object (QC): 88 Treatment functional strengthening in parallel bars 3-way hip x20 sit to stand x10 pt toileted for a BM Assessment/Needs pt demonstrates impaired mobility, strength, balance, and endurance. Pt fatigues very easily and needs frequent rest breaks. Pt also suffers from bouts of dizziness which limits his functional independence Rehab Potential: Fair PT Short Term Goals Short Term Goals Time Frame: Apr 15, 2018 Transfers (B,C,W/C) (FIM): 6 Gait (FIM): 5 Gait Distance Comment: >400' Gait Level of Assist: 5 Gait Assistive Device: FWW Stairs (FIM): 5 # of Steps: 12 Stairs Level of Assist: 5 PT Usp Goals Usp Goals PT Usp Goals Time Frame: Apr 29, 2018 Transfers (B,C,W/C) (FIM): 7 Sit to Lying (QC): 6 Lying-Sitting on Side/Bed(QC): 6 Sit to Stand (QC): 6 Rollin Roll Left to Right (QC): 6 Chair/Nqs-sk-Pmyva Xfer(QC): 6 Car Transfer (QC): 6 Does the Patient Walk: Yes Gait (FIM): 6 Distance: >400' Walk 10 feet (QC): 6 Walk 10ft-Uneven Surface(QC): 6 Walk 50ft with 2 Turns (QC): 6 Walk 150 ft (QC): 6 Gait Level of Assist: 6 Gait Assistive Device: Cane Single Point # of Steps: 6 1 Step (curb) (QC): 6 4 Steps (QC): 6 12 Steps (QC): 6 Stairs Level Of Assist: 6 Picking up an Object (QC): 6 PT Plan Problem List Problem List: Activity Tolerance, Functional Strength, Safety, Balance, Gait, Transfer, Bed Mobility Treatment/Plan Treatment Plan: Continue Plan of Care Treatment Plan: Bed Mobility, Education, Functional Activity Farshad, Functional Strength, Group Therapy, Gait, Safety, Therapeutic Exercise, Transfers Treatment Duration: Apr 29, 2018 Frequency: Modified Program (IRF) Estimated Hrs Per Day: 1.5 hours per day Patient and/or Family Agrees t: Yes Safety Risks/Education Patient Education: Gait Training, Transfer Techniques, Steps, Correct Positioning, Safety Issues Teaching Recipient: Patient Teaching Methods: Demonstration, Discussion Response to Teaching: Reinforcement Needed Discharge Recommendations Plan Patient will perform bed mobility and transfer training, balance and endurance training, functional strengthening, stair training, gait training, and education , to improve functional mobility and independence at home. Therapy D/C Recommendations: Home w/ Family Support Time/GCodes Time In: 1100 Time Out: 1200 Total Billed Treatment Time: 60 Total Billed Treatment 1 visit EVM 30' EX 20' FA 10' BETTY STRONG PT Apr 08, 2018 11:55
[2018-04-08] MEDS ORDERED: ONDANSETRON 4 MG/2 ML (SDV) Z0FRAN IV PRN (12:00)
[2018-04-08] MEDS ORDERED: CATHETER FLUSH 10 ML SYR IV PRN (12:00)
[2018-04-08] MEDS ORDERED: NITROGLYCERIN 0.4 MG SL TABS BTL 25'S SL PRN (12:00)
[2018-04-08] MEDS ORDERED: MECLIZINE 25 MG (ANTIVERT) TAB PO PRN (12:00)
[2018-04-08] MEDS ORDERED: cloNIDine 0.1 MG (CATAPRES) TAB PO PRN (12:00)
--- NOTE | 2018-04-08 12:08 | Occupational Therapy Eval ---
OT Evaluation-General/PLF Medical Diagnosis Admission Date Apr 08, 2018 at 10:10 Medical Diagnosis: disuse myopathy Onset Date: Apr 08, 2018 Therapy Diagnosis Therapy Diagnosis: decreased self care skills Height/Weight Height (Feet): 6 Height (Inches): 0.00 Weight (Pounds): 338 Weight (Ounces): 0.4 Precautions Precautions/Isolations: Fall Prevention, Standard Precautions Referral Physician: Eduardo Medical History Pertinent Medical History: Arthritis, CABG, CAD, COPD, DM, HTN, [place], Neuropathy Additional Medical History sleep apnea, high cholesterol, vertigo, DDD, chronic back pain Current History Fell at home. Was admitted with fever of unknown origin, vomiting, headache and dizziness. Reviewed History: Yes Social History Home: Single Level Current Living Status: Alone Entry Into Home: Stairs Without Railing Steps Into Home: 3 ADL-Prior Level of Function ADL PLOF Comments Pt reports completing basic self care tasks without assistance. Uses FWW as needed. Sister provides some meals and assists with housework as needed. DME/Equipment: Bath Chair, Grab Bars, Sock Aid, Tub/Shower Drive Self: No (sister provides transportation) OT Current Status Subjective Pt agreeable to treatment, states his "neck is tired," but denies pain. Mental Status/Objective Patient Orientation: Person, Place, Situation Current Glasses/Contacts: Yes (reading only) Hearing Aids: Yes Dentures/Partials: Yes (upper denture, lower partial) Upper Extremity ROM Grossly WFL Upper Extremity Coordination Intact Upper Extremity Strength Grossly 4/5 ADL-Treatment ADL-Current Pt agrees to shower this morning. Sit to stand from chair with SBA. Gait to restroom with FWW. [place] clothing with SBA. Transfer to walk in shower with close supervision using grab bars. Pt completed seated shower using hand held shower. Pt able to wash all areas with SBA. Don pullover shirt with set up. Pt donned underwear and shorts with CGA for standing balance. Donned socks with sock aid, which pt states he has at home. Stood at sink for grooming tasks. Pt brushed teeth and combed hair with SBA. Pt demonstrated ability to perform toilet transfer with SBA using grab bars for safety. Pt fatigues with activity and requires occasional rest breaks. Pt transferred to chair with SBA, sitting in chair with needs met after session. Functional [place] Measure 0=Not Assessed/NA 4=Minimal Assistance 1=Total Assistance 5=Supervision or Setup 2=Maximal Assistance 6=Modified [place] 3=Moderate Assistance 7=Complete IndependenceIRFPAI Quality Coding Scale 6 Independent with activity with or without an assistive device 5 Patient requires set up or clean up by helper. Patient completes activity by themselves 4 Supervision or touching assist (CGA). [place] provide cues , steadying assist 3 The helper provides less than half the effort to complete the activity 2 The helper provides more than half the effort to complete the activity 1 Dependent. The helper does all the effort to complete an activity 7 Patient refused to complete or attempt activity 9 The patient did not perform the activity before the current illness or injury 88 Not attempted due to Medical conditions or safety concerns Eating (FIM): 6 (Pt reports feeding self without assistance) Eating (QC): 6 Grooming (FIM): 5 Oral Hygiene (QC): 4 Bathing (FIM): 5 Shower/Bathe Self (QC): 4 Upper Body Dressing (FIM): 5 Upper Body Dressing (QC): 5 Lower Body Dressing (FIM): 4 (CGA) Lower Body Dressing (QC): 4 On/Off Footwear (QC): 5 Toilet/Commode Transfer (FIM): 5 Toilet Transfer (QC): 4 Shower Transfer (FIM): 5 Education OT Patient Education: Rehab process Teaching Recipient: Patient Teaching Methods: Discussion Response to Teaching: Verbalize Understanding, Reinforcement Needed OT Short Term Goals Short Term Goals 1=Demonstrate adherence to instructed precautions during ADL tasks. 2=Patient will verbalize/demonstrate understanding of assistive devices/ modifications for ADL. 3=Patient will improve strength/tolerance for activity to enable patient to perform ADL's. OT Butadiene Converter Utility Operator Goals Butadiene Converter Utility Operator Goals Time Frame: Apr 29, 2018 Eating (FIM): 6 Eating (QC): 6 Groomin Oral Hygiene (QC): 6 Bathing(FIM): 6 Shower/Bathe Self (QC): 6 Upper Body Dressing(FIM): 6 Upper Body Dressing (QC): 6 Lower Body Dressing(FIM): 6 Lower Body Dressing (QC): 6 On/Off Footwear (QC): 6 Toileting(FIM): 6 Toileting Hygiene (QC): 6 Toilet/Commode Transfer(FIM): 6 Toilet/Commode Transfer (QC): 6 Shower Transfer(FIM): 6 Additional Goals: 2-Verbalize Understanding, 3-ImproveStrength/Farshad 1=Demonstrate adherence to instructed precautions during ADL tasks. 2=Patient will verbalize/demonstrate understanding of assistive devices/ modifications for ADL. 3=Patient will improve strength/tolerance for activity to enable patient to perform ADL's. Goals established to promote increased functional independence and allow safe discharge home. OT Education/Plan Problem List/Assessment Assessment: Decreased Activ Tolerance, Decreased UE Strength, Dependent Transfers, Impaired Funct Balance, Impaired I ADL's, Impaired Self-Care Skills Pt demonstrates decreased ADL functioning, mobility, strength, and activity tolerance. Pt to benefit from skilled OT intervention for ADL training, transfers, strengthening, and home safety education to maximize level of function and allow safe discharge home. Discharge Recommendations Plan/Recommendations: Continue POC Treatment Plan/Plan of Care Treatment,Training & Education: Yes Patient would benefit from OT for education, treatment and training to promote independence in ADL's, mobility, safety and/or upper extremity function for ADL' s. Plan of Care: ADL Retraining, Functional Mobility, Group Exercise/Act as Ind, UE Funct Exercise/Act Treatment Duration: Apr 29, 2018 Frequency: At least 5 of 7 days/Wk (IRF) Estimated Hrs Per Day: 1.5 hours per day Rehab Potential: Good Time/GCodes Start Time: 10:00 Stop Time: 11:00 Total Time Billed (hr/min): 60 Billed Treatment Time 1 visit, EVL(15minutes), ADLx3(45minutes) LEONA DYSON OT Apr 08, 2018 12:08
[2018-04-08] MEDS ORDERED: ACETAMINOPHEN 500 MG TAB (TYLENOL) PO PRN (12:15)
[2018-04-08] MEDS ORDERED: ONDANSETRON 4 MG (ZOFRAN) ORAL DISSOLVE TAB PO PRN (12:15)
[2018-04-08] MEDS ORDERED: NAPROXEN 250 MG (NAPROSYN) TABLET PO PRN (12:15)
[2018-04-08] MEDS ORDERED: MILK OF MAGNESIA 400 MG/5 ML 30 ML UDC PO PRN (12:15)
--- NOTE | 2018-04-08 12:19 | PM&R Post Admission Assessment ---
Post Admission Physician Asses Date seen by provider: Apr 08, 2018 Time seen by provider: 12:00 The preadmission screen agrees with the post admission assessment that the patient is a good candidate for inpatient rehabilitation. The patient will have a comprehensive program of inpatient rehabilitation with a goal of maximizing level of functional independence prior to discharge home with [facility]. The patient will have PT/OT ninety minutes per day, each discipline , five days a week for 10 days for gait, strengthening, conditioning, balance, ADLs, any patient/family/caregiver training as necessary. Speech therapy to do cognitive assessment and treat as indicated. Rehabilitation nursing to assist with bowel, bladder, skin, wound care, medication administration, pain management. Exhibit Specialist to assist with discharge planning, community reentry. SCD's for DVT prophylaxis. He appears to be well motivated to participate in three hours of therapy a day. He should be able to tolerate three hours of therapy a day from a medical standpoint. He should benefit from the three hours of therapy a day. He has a reasonable discharge plan, reasonable discharge rehabilitation goals and a supportive family. He has various comorbidities that need to be closely monitored with medications and treatments adjusted on a daily basis as needed. These include: DM TREE CAD Barriers to discharge for this patient who had been independent prior to this are for him to be modified independent to supervision for ADLs and mobility skills prior to discharge home with [facility], so as to lessen the burden of the caregivers. Risks for this patient include: 1. Fall 2. Fracture 3. DVT 4. Pulmonary embolism 5. Recurrent fever 6. Skin breakdown 7. Contractures 8. Poorly controlled pain 9. Urinary retention 10. UTI 11. Respiratory infection 12. Aspiration 13. Poorly controlled DM 14. Angina 15. Worsening Vertigo Estimated Length of Stay: 10 days Prognosis: Rehab prognosis appears good for goal of discharge home with [facility] modified independent to supervision for ADLs and mobility skills. General: Alert, Oriented X3, Cooperative, No Acute Distress HEENT: Atraumatic, PERRLA, EOMI, Mucous Memb Moist/[place] Neck: Supple, No JVD Lungs: Clear to Auscultation Heart: Regular Rate Abdomen: Normal Bowel Sounds, Soft, No Tenderness, Other (distended) Extremities: No Edema Neuro: Other (Weakness both lower limbs as per H&P) Psych/Mental Status: Other (c/o vertigo) ARMEN TENORIO MD Apr 08, 2018 12:19
--- NOTE | 2018-04-08 14:25 | HISTORY AND PHYSICAL ---
DATE OF SERVICE: 04/08/2018 CHIEF COMPLAINT: Difficulty with walking. 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 The patient was started on antibiotics empirically by hospital service, Dr. Barraza. A LP was unable to be done as the patient was on Plavix. It was felt, however, to be likely a viral syndrome. The patient was left with general debility and symtoms consistent wit a disuse myopathy from all this and referred to inpatient rehabilitation unit. Currently, the patient requires assistance for his ADLs and mobility skills. He had been independent prior to this.He is min assist for transfers and gait as well as Lower body dressing.He is setup for upper body dressing PAST MEDICAL HISTORY: Coronary artery disease, COPD, diabetes mellitus, hypertension, diabetic peripheral neuropathy, [place]. PAST SURGICAL HISTORY: CABG. He is on meclizine for vertigo and is to see Dr. Coates, ENT. He is on a CPAP for TREE. He has had arthroscopy of the left knee with Dr. Grider in the past. ALLERGIES: FENOFIBRATE, NIACIN, ROSUVASTATIN. FAMILY HISTORY: Noncontributory. SOCIAL HISTORY: Lives alone in a single level home. He states that he was found unconscious outside the [facility] in [place], [place] where he lives. He states he has been retired from [employer] since 2005. PCP is Kevin Pelletier DO. REVIEW OF SYSTEMS: Significant for dizziness, vertigo, complains arthritic pain, neuropathic decreased sensation in legs. MEDICATIONS: 1. Amlodipine 100 mg p.o. daily. 2. Ecotrin 81 mg p.o. daily. 3. Plavix 75 mg p.o. daily. 4. Lopid 600 mg p.o. daily. 5. Mag ox 400 mg p.o. daily. 6. Amlodipine 10 mg p.o. daily. 7. Effexor XR 150 mg p.o. daily. 8. Elavil 25 mg p.o. each day at bedtime. 9. Coreg 25 mg p.o. b.i.d. 10. Colace 100 mg p.o. b.i.d. 11. Proscar 5 mg p.o. each day at bedtime. 12. Folic acid 1 mg p.o. b.i.d. 13. Flomax 0.4 mg p.o. each day at bedtime. 14. Levemir insulin 67 units subcu b.i.d. 15. Vitamin C 500 mg p.o. b.i.d. with meals. 16. NovoLog 15 units subcu a.c. 17. Lovenox 40 mg subcu q.12 hours. 18. Meclizine 25 mg p.o. q.6 hours p.r.n. vertigo. 19. Nitroglycerin 0.4 mg sublingual p.r.n. chest pain. 20. Zofran 4 mg IV q.4 hours p.r.n. nausea and vomiting. 21. Catapres 0.1 mg p.o. q.6 hours p.r.n. systolic blood pressure elevated as per hospitalists parameters. PHYSICAL EXAMINATION: GENERAL: Significant for a male appearing his stated age, lying in bed, in no acute distress with somewhat distended abdomen. VITAL SIGNS: He is afebrile, respirations 20, O2 sat 96% on room air, pulse 66, blood pressure 153/71. HEENT: Vision, speech, hearing is functional. No oral lesion is noted. NECK: Supple without mass. HEART: Regular rhythm. CHEST: Clear. ABDOMEN: Soft, nontender, bowel sounds present. His abdomen is somewhat distended. EXTREMITIES: No lower leg edema. No calf tenderness. MUSCULOSKELETAL: The patient has functional active range of motion in all 4 limbs. NEUROLOGIC: Sensation decreased to touch in both lower legs. Cognition grossly intact. Strength, right lower extremity 3-/5 hip flexion, knee extension 4/5, knee flexion 4/5, dorsiflexion 5/5, plantarflexion 4/5. Left lower extremity hip flexion 3+/5, knee extension 4/5, knee flexion 3+/5, dorsiflexion 4/5 and plantar flexion 4/5.Strength Upper limbs 4/5 IMPRESSION: 1. 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 2. Diabetes mellitus, controlled with medication. 3. Vertigo, on medication, ENT to see. 4. Coronary artery disease. The patient is on Plavix and aspirin, status post CABG. 5. TREE, on CPAP. PLAN: The patient will have a comprehensive program of inpatient rehabilitation with the goal of maximizing level of functional independence prior to discharge home with home health care. The patient will have PT and OT 90 minutes per day each discipline, 5 days a week for 10 days with the above goals in mind. Please see post-admission physician evaluation, which is a separate document for details of plan of care. Speech therapy to do cognitive assessment and treat as indicated. Rehabilitation nursing to assist with bowel, bladder, skin care, medication administration, pain management and social worker clinical to assist with discharge planning, community reentry. Follow up with hospital service and ENT as per their schedule. Monitor Accu-Cheks and adjust insulin as necessary. ESTIMATED LENGTH OF STAY: 10 to 14 days. PROGNOSIS: Rehab prognosis appears good for goal of discharging home with home health care, modified independent to supervision for ADLs and mobility skills. DIET: Carb consistent. CODE STATUS: Full code. Job ID: [id number] DocumentID: [id number] Dictated Date: 04/08/2018 12:14:59 Seed Cleaning Manager Date: 04/08/2018 12:55:47 Dictated By: ARMEN TENORIO MD MTDD
[2018-04-08] MEDS: CATHETER FLUSH 10 ML SYR IV SCH ×2 (14:36→20:50)
[2018-04-08] MEDS: inSUlin ASPART (NovoLOG) 1 UNIT/0.01 ML (CHARGE PER UNIT) SC SCH ×3 (14:37→20:43)
--- NOTE | 2018-04-08 14:41 | Therapy Group Daily Note ---
Therapy Daily Group Note Patient Education Topic Other List Below (ARU desciption/expectations, neuropathy, oral health, nutrition) Exercises Fine Motor Other/Notes Pt ambulated with FWW to OT/PT group. Group consisted of introductions (name, place, worst food eaten), socialization, ARU description/expectation, education on nutrition/oral health/neuropathy and fine motor activity. Pt introduced self appropriately and actively listened to peers. Pt verbalized understanding about educational topics. Contributed to topics and discussions throughout group. Pt demonstrated good fine motor skills during activities during group. After group, pt ambulated with FWW to room and laid down in bed with call light/ phone in reach. All needs met. Start Time: 13:00 Stop Time: 14:15 Total Billed Treatment Time: 75 Total Billed Treatment 1-GRP MARIA A KEENE Apr 08, 2018 14:41
--- NOTE | 2018-04-08 14:45 | ST Cognitive Linguistic Eval ---
Speech Evaluation-General Medical Diagnosis disuse myopathy Onset Date: Apr 05, 2018 Therapy Diagnosis Therapy Diagnosis: Cognition Precautions Precautions/Isolations: Fall Prevention, Standard Precautions Referral Referring Physician: Dr. Clark Reason for Referral: Evaluation/Treatment Medical History Pertinent Medical History: Arthritis, CABG, CAD, COPD, DM, HTN, [place], Neuropathy Reviewed History: Yes Social History Current Living Status: Alone Speech PLF-Current Status Prior Level of Function to return home Subjective pt laying in bed. Pleasant and cooperative. Pain Numeric Pain Scale: 0-No Pain Language Eval: Auditory Comprehends Simple Yes/No Ques: Functional Follows 1-Step Commands: Functional Follows Complex Directions: Functional Follows General Conversations: Functional Language Eval: Verbal Language Completes Spontaneous Greeting: Functional Produces Auto, Serial Info: Functional Word Finding: Functional Requests Basic Needs: Functional States Basic Personal Info: Functional Expresses Complex Ideas: Functional Language Evaluation: Reading NT Cognitive Patient Orientation Oriented x 3 Objective Cognitive Domain Attention: WNL Memory: WNL Problem Solving: Functional Objective Results [facility] Cognitive/Communication Screen was administered to assess cognitive- linguistic functioning. Results are as follows: Memory- 3 word recall was 3/3 for immediate, delayed and remotely delayed. Sequencing was 4/4/ correct Problem Solving - Simple was 4/4 correct; Abstract was 2/2 correct and Comparison 4/5 correct. Speech/language - WNL Oral Motor/Speech Production WNL Impression Functional cognitive-linguistic functioning. Communication/Social Cognition Comprehension: 7 Expression: 7 Social Interaction: 7 Problem Solvin Memory: 7 Speech Patient Assess Expression of Ideas/Wants: Expression (4) Understanding Verbal Content: Understands (4) Brief Interview-Mental Status: Yes Repetition of Three Words: Three (3) Temporal Orientation: Year: Correct (3) Temporal Orientation: Month: Accurate within 5 days(2) Temporal Orientation: Day: Correct (1) Recall : Wear to say "Sock": Yes, no cue required (2) Recall : Color: Yes, no cue required (2) Recall : Bed: Yes, no cue required (2) Speech Short Term Goals Short Term Goals Short Term Goals no goals established as skilled ST not indicated. Speech Industrial Production Manager Goals [facility] Goals no goals established as no skilled ST is indicated. Speech-Plan Patient/Family Goals Patient/Family Goals: to return home Treatment Plan Speech Therapy Treatment Plan: Modify Plan, See Comments (no therapy indcated) no tx indicated Frequency: Modified Program (IRF) (0) Estimated Hrs Per Day: Other (0) Rehab Potential: Good Pt/Family Agrees to Plan: Yes Safety Risks/Education Teaching Recipient: Patient Teaching Methods: Discussion Response to Teaching: Verbalize Understanding Time Speech Therapy Time In: 14:15 Speech Therapy Time Out: 14:35 Total Billed Time: 20 Billed Treatment Time 1, SPSNDCOMP EVELIO Mcqueen Apr 08, 2018 14:45
[2018-04-08] MEDS: ASCORBIC ACID (VIT C) 500 MG TABLET PO SCH (17:00)
[2018-04-08] MEDS: OMEGA 3 (FISH OIL) 1000 MG CAP PO SCH (17:00)
[2018-04-08 17:09] VITALS: BP 168/81
[2018-04-08] MEDS: inSUlin DETERMIR 1 UNIT/0.01 ML (LEVEMIR) CHARGE PER UNIT SQ SCH (20:43)
[2018-04-08] MEDS: VITAMIN D3 1,000 UNITS (CHOLECALCIFEROL) TABLET PO SCH (20:44)
[2018-04-08] MEDS: VALSARTAN 160 MG (DIOVAN) TABLET PO SCH (20:44)
[2018-04-08] MEDS: FINASTERIDE (PROSCAR) 5 MG TAB PO SCH (20:44)
[2018-04-08] MEDS: ENOXAPARIN 40 MG/0.4 ML (LOVENOX) SYR SC SCH (20:44)
[2018-04-08] MEDS: CARVEDILOL 12.5 MG (COREG) TABLET PO SCH (20:44)
[2018-04-08] MEDS: TAMSULOSIN 0.4 MG (FLOMAX) CAP PO SCH (20:44)
[2018-04-08] MEDS: DOCUSATE SODIUM 100 MG (COLACE) CAP PO SCH (20:44)
[2018-04-08] MEDS: FOLIC ACID 1 MG TAB PO SCH (20:44)
[2018-04-08] MEDS: AMITRIPTYLINE 25 MG (ELAVIL) TAB PO SCH (20:44)
[2018-04-09 05:48] VITALS: BP 162/75
[2018-04-09] MEDS: CATHETER FLUSH 10 ML SYR IV SCH ×3 (07:25→20:31)
[2018-04-09] MEDS: inSUlin ASPART (NovoLOG) 1 UNIT/0.01 ML (CHARGE PER UNIT) SC SCH ×7 (07:26→20:27)
[2018-04-09] MEDS: OMEGA 3 (FISH OIL) 1000 MG CAP PO SCH ×2 (07:27→16:43)
[2018-04-09] MEDS: CALCIUM CARB + VIT D 600 MG (CALCARB + D) TAB PO SCH (07:27)
[2018-04-09] MEDS: ASCORBIC ACID (VIT C) 500 MG TABLET PO SCH ×2 (07:27→16:43)
[2018-04-09] MEDS: VENlafaxine XR 75 MG (EFFEXOR XR) CAP PO SCH (07:28)
--- NOTE | 2018-04-09 07:54 | PM & R (SOAP) Progress Note ---
Subjective This was a face to face visit with the patient. Date Seen by Provider: Apr 09, 2018 Time Seen by Provider: 07:35 Subjective/Events-last exam Patient was seen in his room this AM Patient min assist for transfers,Adjusting well to unit Review of Systems Neurological: Weakness Objective Physician Exam Last Set of Vital Signs Vital Signs Date Time Temp Pulse Resp B/P (MAP) Pulse Ox O2 Delivery O2 Flow Rate FiO2 04/09/18 05:48 97.9 67 18 162/75 (104) 93 Room Air Capillary Refill : I&O Intake and Output 04/09/18 00:00 Intake Total 540 ml Balance 540 ml Intake Oral 540 ml # Voids 2 # Bowel Movements 1 Daily Weight Change Unsure General: Alert, Oriented X3, Cooperative, No Acute Distress HEENT: Atraumatic, PERRLA, EOMI, Mucous Memb Moist/[place] Neck: Supple, No JVD Lungs: Clear to Auscultation Heart: Regular Rate Abdomen: Normal Bowel Sounds, Soft, No Tenderness, Other (distended) Extremities: No Edema Neuro: Other (Weakness both lower limbs as per H&P) Psych/Mental Status: Other (c/o vertigo) Results Lab Data Laboratory Tests 04/08/18 14:20: Glucometer 258H 04/08/18 20:23: Glucometer 248H 04/09/18 05:26: Glucometer 285H Assessment/Plan Assessment and Plan 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
[2018-04-09 08:55] VITALS: BP 153/70
[2018-04-09] MEDS: inSUlin DETERMIR 1 UNIT/0.01 ML (LEVEMIR) CHARGE PER UNIT SQ SCH ×2 (08:55→20:27)
[2018-04-09] MEDS: ENOXAPARIN 40 MG/0.4 ML (LOVENOX) SYR SC SCH ×2 (08:55→20:27)
[2018-04-09] MEDS ORDERED: VALSARTAN 80 MG (DIOVAN) TAB PO SCH (09:00)
[2018-04-09] MEDS: VITAMIN D3 1,000 UNITS (CHOLECALCIFEROL) TABLET PO SCH ×2 (10:09→20:28)
[2018-04-09] MEDS: VITAMIN E 400 INTLU CAP PO SCH (10:09)
[2018-04-09] MEDS: ASPIRIN E.C. 81 MG (ECOTRIN) TAB PO SCH (10:09)
[2018-04-09] MEDS: CARVEDILOL 12.5 MG (COREG) TABLET PO SCH ×2 (10:09→20:27)
[2018-04-09] MEDS: GEMFIBROZIL 600 MG (LOPID) TAB PO SCH (10:09)
[2018-04-09] MEDS: FOLIC ACID 1 MG TAB PO SCH ×2 (10:10→20:28)
[2018-04-09] MEDS: ALLOPURINOL 100 MG (ZYLOPRIM) TAB PO SCH (10:10)
[2018-04-09] MEDS: amLODIPine 10 MG (NORVASC) TAB PO SCH (10:10)
[2018-04-09] MEDS: DOCUSATE SODIUM 100 MG (COLACE) CAP PO SCH ×2 (10:10→20:28)
[2018-04-09] MEDS: MAGNESIUM OXIDE (MAG-OX)400 MG TAB PO SCH (10:10)
[2018-04-09] MEDS: CLOPIDOGREL 75 MG (PLAVIX) TABLET PO SCH (10:10)
--- NOTE | 2018-04-09 11:56 | Physical Therapy Daily Note ---
PT Daily Note-Current Subjective Pt. agrees to Rx. States initially when he stood that he was somewhat dizzy. Pt. explained his cardiac history Pain Numeric Pain Scale: 3 Location: Medial Location Body Site: Back Pain Description: Ache Mental Status Patient Orientation: Normal For Age Transfers Functional [place] Measure 0=Not Assessed/NA 4=Minimal Assistance 1=Total Assistance 5=Supervision or Setup 2=Maximal Assistance 6=Modified [place] 3=Moderate Assistance 7=Complete IndependenceIRFPAI Quality Coding Scale 6 Independent with activity with or without an assistive device 5 Patient requires set up or clean up by helper. Patient completes activity by themselves 4 Supervision or touching assist (CGA). [place] provide cues , steadying assist 3 The helper provides less than half the effort to complete the activity 2 The helper provides more than half the effort to complete the activity 1 Dependent. The helper does all the effort to complete an activity 7 Patient refused to complete or attempt activity 9 The patient did not perform the activity before the current illness or injury 88 Not attempted due to Medical conditions or safety concerns Transfers (B, C, W/C) (FIM): 6 Scootin Rollin Supine to/from Sit: 6 Sit to/from Stand: 6 Weight Bearing Right Lower Extremity: Right Weight Bearing/Tolerated Left Lower Extremity: Left Weight Bearing/Tolerated Gait Training Does the Patient Walk?: Yes Gait (FIM): 5 Distance (FIM): 3=150 ft (200x2) Gait Level of Assist: 5 Gait Persons Needed: 1 Gait Assistive Device: FWW Exercises Supine Ex: Bridging, Ankle pumps, Quad Set, Rolling, Glut sets, Heel Slides, Short Arc Quads, Scooting, Straight leg raise (bilat assist), Hip abd/add ( sidelying clam shells and abd with assist bilat) Supine Reps: 15 Assessment Current Status: Good Progress weak LEs, dizziness continues PT Short Term Goals Short Term Goals Time Frame: Apr 15, 2018 Transfers (B,C,W/C) (FIM): 6 Gait (FIM): 5 Gait Distance Comment: >400' Gait Level of Assist: 5 Gait Assistive Device: FWW Stairs (FIM): 5 # of Steps: 12 Stairs Level of Assist: 5 PT Fdc Goals Fdc Goals PT Fdc Goals Time Frame: Apr 29, 2018 Transfers (B,C,W/C) (FIM): 7 Sit to Lying (QC): 6 Lying-Sitting on Side/Bed(QC): 6 Sit to Stand (QC): 6 Rollin Roll Left to Right (QC): 6 Chair/Qov-ti-Luwxg Xfer(QC): 6 Car Transfer (QC): 6 Does the Patient Walk: Yes Gait (FIM): 6 Distance: >400' Walk 10 feet (QC): 6 Walk 10ft-Uneven Surface(QC): 6 Walk 50ft with 2 Turns (QC): 6 Walk 150 ft (QC): 6 Gait Level of Assist: 6 Gait Assistive Device: Cane Single Point # of Steps: 6 1 Step (curb) (QC): 6 4 Steps (QC): 6 12 Steps (QC): 6 Stairs Level Of Assist: 6 Picking up an Object (QC): 6 PT Plan Treatment/Plan Treatment Plan: Continue Plan of Care Treatment Plan: Bed Mobility, Education, Functional Activity Farshad, Functional Strength, Group Therapy, Gait, Safety, Therapeutic Exercise, Transfers Treatment Duration: Apr 29, 2018 Frequency: Modified Program (IRF) Estimated Hrs Per Day: 1.5 hours per day Patient and/or Family Agrees t: Yes Safety Risks/Education Patient Education: Gait Training, Transfer Techniques, Correct Positioning, Safety Issues Teaching Recipient: Patient Teaching Methods: Demonstration, Discussion Response to Teaching: Verbalize Understanding, Return Demonstration, Reinforcement Needed discussed safety : sup to sit, sit for a few minutes if dizzy, after stance stay at bedside in case dizziness happens for safety etc Time/GCodes Time In: 1115 Time Out: 1145 Total Billed Treatment Time: 30 Total Billed Treatment 1,EX10,GT20 G Codes Necessary: GEORGE Campoverde CREDIT RISK MANAGEMENT DIRECTOR Apr 09, 2018 11:56
--- NOTE | 2018-04-09 14:07 | CONSULTATION REPORT ---
DATE OF SERVICE: ENT CONSULTATION ROOM NUMBER: 228 REFERRING PHYSICIAN: Edgar Clark MD REASON FOR CONSULTATION: Chronic/recurrent vertigo. HISTORY OF PRESENT ILLNESS: The patient is currently admitted to the hospital because of a viral syndrome. He is in rehab to gain strength. He has at least 5 or 6-year history of vertigo. We have seen him in the office before, but this predates his dizziness. He reports 5 or 6 years ago he was going in [employer] and became acutely dizzy. He stumbled into the store and subsequently was taken to the hospital in an ambulance. He spent 4 or 5 days with acute severe dizziness. He has had recurrent episodes since that time. He has been worse over the past month. He has had multiple evaluations done. He was seen and evaluated at , and what he describes he had an EMG performed. He does not know results, but they report he may have a tracking problem. He was likewise seen by Dr. De La Vega in [place]. Further testing was done with no specific cause. He is receiving physical therapy here in the hospital. He has a known history of bilateral nerve hearing loss. He was last seen at our office in 2009. At that time, he had a bilateral significant sensorineural hearing loss with speech discrimination of 84% on the right, 90% on the left. He does have aids which do help. There is a question of cerumen in his ears as well. PAST MEDICAL HISTORY: Extensive and includes coronary artery disease, COPD, diabetes, hypertension and diabetic peripheral neuropathy. He has a history of an MO. CURRENT MEDICATIONS: Do include meclizine, it helps somewhat. ALLERGIES: FENOFIBRATE, NIACIN, CRESTOR. MEDICATIONS: Amlodipine, Ecotrin, Plavix, Lopid, magnesium, Effexor. PHYSICAL EXAMINATION: GENERAL: He is in no acute distress today. He was not acutely dizzy this morning. ENT: Eyes: He had no spontaneous nystagmus seen but did appear to have a tracking problem, especially with the left eye. Vision was grossly intact. Ears: Canals were normal. Tympanic membranes were intact and mobile. There was no evidence of infection or fluid present. Nose: Normal nasal mucosa. No mass or lesion seen. No drainage was present. The oral cavity was clear. He had good tongue movement. There was no fasciculation. He had a strong gag reflex. NECK: No mass, adenopathy or thyromegaly palpable in the neck. ASSESSMENT: 1. Recurrent/chronic dizziness. 2. Possible central tracking problem. RECOMMENDATIONS: Findings were discussed with the patient. The physical therapy is doing balance exercises with him, and hopefully, he will gain some improvement over the upcoming days that he is in rehab. He has had an MRI of the head. He reports it was 5 or 6 years ago. We will get permission to obtain that result from [facility] in [place]. Likewise, once I have had a chance to review that then we will see him back as an outpatient to do a full audiogram and consider a metabolic workup, autoimmune workup and even a tick panel to rule out other causes of his ongoing symptoms. Thanks for the consult. I will be back past his permission so we consent for the MRI report. If everything else is negative, then we may consider switching him from meclizine to 2 mg of Valium at night to calm down the balance system overall. He was in room [facility] at [facility]. Job ID: [id number] DocumentID: [id number] Dictated Date: 04/09/2018 12:21:20 Spooling Supervisor Date: 04/09/2018 14:06:06 Dictated By: ELMO EDGE MD
[2018-04-09 18:04] VITALS: BP 190/95
[2018-04-09] MEDS: AMITRIPTYLINE 25 MG (ELAVIL) TAB PO SCH (20:27)
[2018-04-09] MEDS: VALSARTAN 160 MG (DIOVAN) TABLET PO SCH (20:28)
[2018-04-09] MEDS: FINASTERIDE (PROSCAR) 5 MG TAB PO SCH (20:28)
[2018-04-09] MEDS: TAMSULOSIN 0.4 MG (FLOMAX) CAP PO SCH (20:28)
[2018-04-09 20:35] VITALS: BP 164/82
[2018-04-10 06:00] VITALS: BP 149/89
[2018-04-10] MEDS: inSUlin ASPART (NovoLOG) 1 UNIT/0.01 ML (CHARGE PER UNIT) SC SCH ×7 (07:02→20:48)
[2018-04-10] MEDS: CATHETER FLUSH 10 ML SYR IV SCH ×3 (07:05→20:52)
[2018-04-10] MEDS: CALCIUM CARB + VIT D 600 MG (CALCARB + D) TAB PO SCH (07:05)
[2018-04-10] MEDS: ASCORBIC ACID (VIT C) 500 MG TABLET PO SCH ×2 (07:05→17:30)
[2018-04-10] MEDS: OMEGA 3 (FISH OIL) 1000 MG CAP PO SCH ×2 (07:05→17:30)
[2018-04-10] MEDS: VENlafaxine XR 75 MG (EFFEXOR XR) CAP PO SCH (07:05)
[2018-04-10] MEDS: CLOPIDOGREL 75 MG (PLAVIX) TABLET PO SCH (08:40)
[2018-04-10] MEDS: VITAMIN E 400 INTLU CAP PO SCH (08:40)
[2018-04-10] MEDS: MAGNESIUM OXIDE (MAG-OX)400 MG TAB PO SCH (08:40)
[2018-04-10] MEDS: ALLOPURINOL 100 MG (ZYLOPRIM) TAB PO SCH (08:40)
[2018-04-10] MEDS: amLODIPine 10 MG (NORVASC) TAB PO SCH (08:40)
[2018-04-10] MEDS: FOLIC ACID 1 MG TAB PO SCH ×2 (08:40→20:43)
[2018-04-10] MEDS: VITAMIN D3 1,000 UNITS (CHOLECALCIFEROL) TABLET PO SCH ×2 (08:40→20:52)
[2018-04-10] MEDS: GEMFIBROZIL 600 MG (LOPID) TAB PO SCH (08:40)
[2018-04-10] MEDS: inSUlin DETERMIR 1 UNIT/0.01 ML (LEVEMIR) CHARGE PER UNIT SQ SCH ×2 (08:41→20:44)
[2018-04-10] MEDS: ASPIRIN E.C. 81 MG (ECOTRIN) TAB PO SCH (08:41)
[2018-04-10] MEDS: CARVEDILOL 12.5 MG (COREG) TABLET PO SCH ×2 (08:41→20:43)
[2018-04-10] MEDS: ENOXAPARIN 40 MG/0.4 ML (LOVENOX) SYR SC SCH ×2 (08:41→20:43)
[2018-04-10] MEDS: DOCUSATE SODIUM 100 MG (COLACE) CAP PO SCH ×2 (08:42→20:43)
[2018-04-10 17:54] VITALS: BP 165/72
[2018-04-10] MEDS: FINASTERIDE (PROSCAR) 5 MG TAB PO SCH (20:43)
[2018-04-10] MEDS: TAMSULOSIN 0.4 MG (FLOMAX) CAP PO SCH (20:43)
[2018-04-10] MEDS: VALSARTAN 160 MG (DIOVAN) TABLET PO SCH (20:43)
[2018-04-10] MEDS: AMITRIPTYLINE 25 MG (ELAVIL) TAB PO SCH (20:44)
[2018-04-11 05:39] VITALS: BP 147/89
[2018-04-11] MEDS: ASCORBIC ACID (VIT C) 500 MG TABLET PO SCH ×2 (06:12→17:54)
[2018-04-11] MEDS: CATHETER FLUSH 10 ML SYR IV SCH ×3 (06:12→20:55)
[2018-04-11] MEDS: VENlafaxine XR 75 MG (EFFEXOR XR) CAP PO SCH (06:12)
[2018-04-11] MEDS: OMEGA 3 (FISH OIL) 1000 MG CAP PO SCH ×2 (06:12→17:54)
[2018-04-11] MEDS: CALCIUM CARB + VIT D 600 MG (CALCARB + D) TAB PO SCH (06:12)
[2018-04-11] MEDS: inSUlin ASPART (NovoLOG) 1 UNIT/0.01 ML (CHARGE PER UNIT) SC SCH ×7 (06:18→20:54)
[2018-04-11] MEDS: VITAMIN D3 1,000 UNITS (CHOLECALCIFEROL) TABLET PO SCH ×2 (08:23→20:49)
[2018-04-11] MEDS: ENOXAPARIN 40 MG/0.4 ML (LOVENOX) SYR SC SCH ×2 (08:23→20:48)
[2018-04-11] MEDS: inSUlin DETERMIR 1 UNIT/0.01 ML (LEVEMIR) CHARGE PER UNIT SQ SCH ×2 (08:23→20:48)
[2018-04-11] MEDS: CLOPIDOGREL 75 MG (PLAVIX) TABLET PO SCH (08:23)
[2018-04-11] MEDS: VITAMIN E 400 INTLU CAP PO SCH (08:24)
[2018-04-11] MEDS: CARVEDILOL 12.5 MG (COREG) TABLET PO SCH ×2 (08:24→20:49)
[2018-04-11] MEDS: DOCUSATE SODIUM 100 MG (COLACE) CAP PO SCH ×2 (08:24→20:49)
[2018-04-11] MEDS: MAGNESIUM OXIDE (MAG-OX)400 MG TAB PO SCH (08:24)
[2018-04-11] MEDS: ALLOPURINOL 100 MG (ZYLOPRIM) TAB PO SCH (08:24)
[2018-04-11] MEDS: amLODIPine 10 MG (NORVASC) TAB PO SCH (08:24)
[2018-04-11] MEDS: GEMFIBROZIL 600 MG (LOPID) TAB PO SCH (08:24)
[2018-04-11] MEDS: FOLIC ACID 1 MG TAB PO SCH ×2 (08:24→20:49)
[2018-04-11] MEDS: ASPIRIN E.C. 81 MG (ECOTRIN) TAB PO SCH (08:24)
--- NOTE | 2018-04-11 09:55 | Physical Therapy Daily Note ---
PT Daily Note-Current Subjective pt in bed pre tx, agrees to PT, pain 4/10 in sacrum (bone spur) Appearance pt in recliner post tx, w/ phone, call light, tray, all needs met Mental Status Patient Orientation: Person, Place, Time Transfers Functional [place] Measure 0=Not Assessed/NA 4=Minimal Assistance 1=Total Assistance 5=Supervision or Setup 2=Maximal Assistance 6=Modified [place] 3=Moderate Assistance 7=Complete IndependenceIRFPAI Quality Coding Scale 6 Independent with activity with or without an assistive device 5 Patient requires set up or clean up by helper. Patient completes activity by themselves 4 Supervision or touching assist (CGA). [place] provide cues , steadying assist 3 The helper provides less than half the effort to complete the activity 2 The helper provides more than half the effort to complete the activity 1 Dependent. The helper does all the effort to complete an activity 7 Patient refused to complete or attempt activity 9 The patient did not perform the activity before the current illness or injury 88 Not attempted due to Medical conditions or safety concerns Transfers (B, C, W/C) (FIM): 5 Supine to/from Sit: 5 Sit to/from Stand: 5 supine<->sit SBA, sit<->stand SBA Weight Bearing Right Lower Extremity: Right Weight Bearing/Tolerated Left Lower Extremity: Left Weight Bearing/Tolerated Gait Training Does the Patient Walk?: Yes Gait (FIM): 5 Distance: 120',150',150' Gait Level of Assist: 5 Gait Persons Needed: 1 Gait Assistive Device: FWW Pt ambulates around rehab unit and to/from gym w/ FWW and SBA. Pt states his legs feel "wobbly" but shows no LOB, normal gait speed, pt able to ambulate 150 ' but needs prolonged rest breaks after due to SOB Exercises Seated Therapy Exercises: Sit to stand Seated Reps: 20 Standing: Hamstring curls, 3 way Ex=Flex, Abd, Ext Standing Reps: 20 Neuromuscular standing balance in parallel bars double leg support 2min walking in parallel bars forward/backward 3x10' Treatments gait training, balance training, functional strengthening Assessment Current Status: Fair Progress improved standing balance and endurance/activity tolerance PT Short Term Goals Short Term Goals Time Frame: Apr 15, 2018 Transfers (B,C,W/C) (FIM): 6 Gait (FIM): 5 Gait Distance Comment: >400' Gait Level of Assist: 5 Gait Assistive Device: FWW Stairs (FIM): 5 # of Steps: 12 Stairs Level of Assist: 5 PT Rolling Attendant Goals Snf Goals PT Rolling Attendant Goals Time Frame: Apr 29, 2018 Transfers (B,C,W/C) (FIM): 7 Sit to Lying (QC): 6 Lying-Sitting on Side/Bed(QC): 6 Sit to Stand (QC): 6 Rollin Roll Left to Right (QC): 6 Chair/Gnx-ow-Nuqyw Xfer(QC): 6 Car Transfer (QC): 6 Does the Patient Walk: Yes Gait (FIM): 6 Distance: >400' Walk 10 feet (QC): 6 Walk 10ft-Uneven Surface(QC): 6 Walk 50ft with 2 Turns (QC): 6 Walk 150 ft (QC): 6 Gait Level of Assist: 6 Gait Assistive Device: Cane Single Point # of Steps: 6 1 Step (curb) (QC): 6 4 Steps (QC): 6 12 Steps (QC): 6 Stairs Level Of Assist: 6 Picking up an Object (QC): 6 PT Plan Problem List Problem List: Activity Tolerance, Functional Strength, Safety, Balance, Gait, Transfer, Bed Mobility Treatment/Plan Treatment Plan: Continue Plan of Care Treatment Plan: Bed Mobility, Education, Functional Activity Farshad, Functional Strength, Group Therapy, Gait, Safety, Therapeutic Exercise, Transfers Treatment Duration: Apr 29, 2018 Frequency: Modified Program (IRF) Estimated Hrs Per Day: 1.5 hours per day Patient and/or Family Agrees t: Yes Safety Risks/Education Patient Education: Gait Training, Transfer Techniques, Correct Positioning, Safety Issues Teaching Recipient: Patient Teaching Methods: Demonstration, Discussion Response to Teaching: Reinforcement Needed Time/GCodes Time In: 0900 Time Out: 1000 Total Billed Treatment Time: 60 Total Billed Treatment 1 visit GT 20 EX 25 NM 15 BETTY STRONG PT Apr 11, 2018 09:55
--- NOTE | 2018-04-11 11:51 | Occupational Ther Daily Note ---
OT Current Status-Daily Note Subjective Pt seen in room, up in bed, agreeable to OT. No pain mentioned but he did report dizziness and needed to lie down briefly after shower for it to go away. Appearance Alert, cooperative Mental Status/Objective Functional [place] Measure 0=Not Assessed/NA 4=Minimal Assistance 1=Total Assistance 5=Supervision or Setup 2=Maximal Assistance 6=Modified [place] 3=Moderate Assistance 7=Complete [place] ADL-Treatment Able to move from supine to sit without help but did become dizzy. Walked with CGA, FWW to bathroom for bathing. Undressed and dressed upper body with setup. pt insisted on standing by shower and stepping out of shorts and standing to put underwear and pants back on, balancing unsteadily with grab bar or FWW, CGA. He stood on one leg to put pants on other foot but pants caught on toes, challenging his balance, but he did not fall. He was resistant to modified techniques for lower body dressing with adapted techniques or equipment. He completed bathing with setup. He walked to sink with FWW to brush teeth and comb hair, declining to shave at this time. Walked back to bed SBA, FWW to put shoes on and then lie down for a minute or two to clear dizziness. Pt completed 15 reps bilat UE exercise with 2# weight, with pt educ on different exercises, for increasing activity tolerance for ADLs and mobility. Worked on shoulders, elbows, forearms, wrists. Pt left up in bed, all needs met. Functional [place] Measure 0=Not Assessed/NA 4=Minimal Assistance 1=Total Assistance 5=Supervision or Setup 2=Maximal Assistance 6=Modified [place] 3=Moderate Assistance 7=Complete IndependenceIRFPAI Quality Coding Scale 6 Independent with activity with or without an assistive device 5 Patient requires set up or clean up by helper. Patient completes activity by themselves 4 Supervision or touching assist (CGA). [place] provide cues , steadying assist 3 The helper provides less than half the effort to complete the activity 2 The helper provides more than half the effort to complete the activity 1 Dependent. The helper does all the effort to complete an activity 7 Patient refused to complete or attempt activity 9 The patient did not perform the activity before the current illness or injury 88 Not attempted due to Medical conditions or safety concerns Grooming (FIM): 5 (SBA) Bathing (FIM): 5 Upper Body (FIM): 5 Lower Body Dressing (FIM): 4 (CGA) Shower Transfer(FIM): 5 (SBA) Education OT Patient Education: Exercise program, Purpose of tx/functional activities, Safety issues Teaching Recipient: Patient Teaching Methods: Discussion Response to Teaching: Verbalize Understanding, Reinforcement Needed OT Short Term Goals Short Term Goals Transfers (B,C,W/C) (FIM): 6 1=Demonstrate adherence to instructed precautions during ADL tasks. 2=Patient will verbalize/demonstrate understanding of assistive devices/ modifications for ADL. 3=Patient will improve strength/tolerance for activity to enable patient to perform ADL's. OT Residential Goals Residential Goals Time Frame: Apr 29, 2018 Eating (FIM): 6 Eating (QC): 6 Groomin Oral Hygiene (QC): 6 Bathing(FIM): 6 Shower/Bathe Self (QC): 6 Upper Body Dressing(FIM): 6 Upper Body Dressing (QC): 6 Lower Body Dressing(FIM): 6 Lower Body Dressing (QC): 6 On/Off Footwear (QC): 6 Toileting(FIM): 6 Toileting Hygiene (QC): 6 Toilet/Commode Transfer(FIM): 6 Toilet/Commode Transfer (QC): 6 Shower Transfer(FIM): 6 Additional Goals: 2-Verbalize Understanding, 3-ImproveStrength/Farshad 1=Demonstrate adherence to instructed precautions during ADL tasks. 2=Patient will verbalize/demonstrate understanding of assistive devices/ modifications for ADL. 3=Patient will improve strength/tolerance for activity to enable patient to perform ADL's. OT Education/Plan Problem List/Assessment Pt demonstrates decreased ADL functioning, mobility, strength, and activity tolerance. Pt to benefit from skilled OT intervention for ADL training, transfers, strengthening, and home safety education to maximize level of function and allow safe discharge home. Discharge Recommendations Plan/Recommendations: Continue POC Treatment Plan/Plan of Care Patient would benefit from OT for education, treatment and training to promote independence in ADL's, mobility, safety and/or upper extremity function for ADL' s. Plan of Care: ADL Retraining, Functional Mobility, Group Exercise/Act as Ind, UE Funct Exercise/Act Treatment Duration: Apr 29, 2018 Frequency: At least 5 of 7 days/Wk (IRF) Estimated Hrs Per Day: 1.5 hours per day Rehab Potential: Good Time/GCodes Start Time: 10:30 Stop Time: 11:30 Total Time Billed (hr/min): 60 Billed Treatment Time visit, 45 minutes ADL, 15 minutes exercise GILBERT PAYNE OT Apr 11, 2018 11:51
--- NOTE | 2018-04-11 14:07 | Occupational Ther Daily Note ---
OT Current Status-Daily Note Subjective Pt seen in room, up in bed, agreeable to OT. No pain mentioned. Appearance Alert, cooperative Mental Status/Objective Functional [place] Measure 0=Not Assessed/NA 4=Minimal Assistance 1=Total Assistance 5=Supervision or Setup 2=Maximal Assistance 6=Modified [place] 3=Moderate Assistance 7=Complete [place] ADL-Treatment Functional [place] Measure 0=Not Assessed/NA 4=Minimal Assistance 1=Total Assistance 5=Supervision or Setup 2=Maximal Assistance 6=Modified [place] 3=Moderate Assistance 7=Complete IndependenceIRFPAI Quality Coding Scale 6 Independent with activity with or without an assistive device 5 Patient requires set up or clean up by helper. Patient completes activity by themselves 4 Supervision or touching assist (CGA). [place] provide cues , steadying assist 3 The helper provides less than half the effort to complete the activity 2 The helper provides more than half the effort to complete the activity 1 Dependent. The helper does all the effort to complete an activity 7 Patient refused to complete or attempt activity 9 The patient did not perform the activity before the current illness or injury 88 Not attempted due to Medical conditions or safety concerns Other Treatment Pt was initially dizzy when he moved from supine to sit EOB and had to remain stationary for a few minutes before getting up. Sit to stand without help and he walked over 100 feet to the gym, SBA, FWW. Able to get in and out of chair with arms with SBA. Pt did 9 minutes bilat UE exercise with arm bike set at 15W resistance, taking a recovery break every three minutes. To increase activity tolerance as needed for ADLs and functional mobility. No SOB noted. When he stood up to walk back to his room, reported he was dizzy and had to stand for a minute before walking rapidly back to his room. Pt left sitting up EOB, all needs met. He declined OT asking for meds. Education OT Patient Education: Exercise program, Purpose of tx/functional activities Teaching Recipient: Patient Teaching Methods: Discussion Response to Teaching: Verbalize Understanding OT Short Term Goals Short Term Goals Transfers (B,C,W/C) (FIM): 6 1=Demonstrate adherence to instructed precautions during ADL tasks. 2=Patient will verbalize/demonstrate understanding of assistive devices/ modifications for ADL. 3=Patient will improve strength/tolerance for activity to enable patient to perform ADL's. OT Snf Goals Snf Goals Time Frame: Apr 29, 2018 Eating (FIM): 6 Eating (QC): 6 Groomin Oral Hygiene (QC): 6 Bathing(FIM): 6 Shower/Bathe Self (QC): 6 Upper Body Dressing(FIM): 6 Upper Body Dressing (QC): 6 Lower Body Dressing(FIM): 6 Lower Body Dressing (QC): 6 On/Off Footwear (QC): 6 Toileting(FIM): 6 Toileting Hygiene (QC): 6 Toilet/Commode Transfer(FIM): 6 Toilet/Commode Transfer (QC): 6 Shower Transfer(FIM): 6 Additional Goals: 2-Verbalize Understanding, 3-ImproveStrength/Farshad 1=Demonstrate adherence to instructed precautions during ADL tasks. 2=Patient will verbalize/demonstrate understanding of assistive devices/ modifications for ADL. 3=Patient will improve strength/tolerance for activity to enable patient to perform ADL's. OT Education/Plan Problem List/Assessment Pt demonstrates decreased ADL functioning, mobility, strength, and activity tolerance. Pt to benefit from skilled OT intervention for ADL training, transfers, strengthening, and home safety education to maximize level of function and allow safe discharge home. Discharge Recommendations Plan/Recommendations: Continue POC Treatment Plan/Plan of Care Patient would benefit from OT for education, treatment and training to promote independence in ADL's, mobility, safety and/or upper extremity function for ADL' s. Plan of Care: ADL Retraining, Functional Mobility, Group Exercise/Act as Ind, UE Funct Exercise/Act Treatment Duration: Apr 29, 2018 Frequency: At least 5 of 7 days/Wk (IRF) Estimated Hrs Per Day: 1.5 hours per day Rehab Potential: Good Time/GCodes Start Time: 13:00 Stop Time: 13:30 Total Time Billed (hr/min): 30 Billed Treatment Time visit, 30 minutes exercise GILBERT PAYNE OT Apr 11, 2018 14:07
--- NOTE | 2018-04-11 14:50 | Physical Therapy Daily Note ---
PT Daily Note-Current Subjective pt in bed pre tx, agrees to PT, pain 5/10 in sacrum (bone spur) Appearance pt in bed post tx, w/ phone, call light, and tray, all needs met Mental Status Patient Orientation: Person, Place, Time Transfers Functional [place] Measure 0=Not Assessed/NA 4=Minimal Assistance 1=Total Assistance 5=Supervision or Setup 2=Maximal Assistance 6=Modified [place] 3=Moderate Assistance 7=Complete IndependenceIRFPAI Quality Coding Scale 6 Independent with activity with or without an assistive device 5 Patient requires set up or clean up by helper. Patient completes activity by themselves 4 Supervision or touching assist (CGA). [place] provide cues , steadying assist 3 The helper provides less than half the effort to complete the activity 2 The helper provides more than half the effort to complete the activity 1 Dependent. The helper does all the effort to complete an activity 7 Patient refused to complete or attempt activity 9 The patient did not perform the activity before the current illness or injury 88 Not attempted due to Medical conditions or safety concerns Transfers (B, C, W/C) (FIM): 5 Supine to/from Sit: 5 Sit to/from Stand: 5 supine<->sit SBA, sit<->stand SBA Weight Bearing Right Lower Extremity: Right Weight Bearing/Tolerated Left Lower Extremity: Left Weight Bearing/Tolerated Gait Training Does the Patient Walk?: Yes Distance: 200', 150' Gait Assistive Device: FWW pt ambulates to/from gym w/ FWW and SBA, GT in parallel bars 3x10' forward/backward w/o support Stair Training Stair Training: Handrails/: 2 handrails Stairs: Pattern: Step to pt ascends/descends 12 steps, but only 4 at a time before needing rest due to SOB. Pt uses both handrails and a step-to pattern w/ SBA Exercises Standin way Ex=Flex, Abd, Ext Neuromuscular standing balance double leg support 2min single leg stance 3x10s each leg Treatments gait and mobility training, balance training, functional strengthening Assessment Current Status: Fair Progress increased activity tolerance and participation, improved standing balance PT Short Term Goals Short Term Goals Time Frame: Apr 15, 2018 Transfers (B,C,W/C) (FIM): 6 Gait (FIM): 5 Gait Distance Comment: >400' Gait Level of Assist: 5 Gait Assistive Device: FWW Stairs (FIM): 5 # of Steps: 12 Stairs Level of Assist: 5 PT Correction Goals [place] Staff Goals PT Correction Goals Time Frame: Apr 29, 2018 Transfers (B,C,W/C) (FIM): 7 Sit to Lying (QC): 6 Lying-Sitting on Side/Bed(QC): 6 Sit to Stand (QC): 6 Rollin Roll Left to Right (QC): 6 Chair/Tnm-zp-Znyub Xfer(QC): 6 Car Transfer (QC): 6 Does the Patient Walk: Yes Gait (FIM): 6 Distance: >400' Walk 10 feet (QC): 6 Walk 10ft-Uneven Surface(QC): 6 Walk 50ft with 2 Turns (QC): 6 Walk 150 ft (QC): 6 Gait Level of Assist: 6 Gait Assistive Device: Cane Single Point # of Steps: 6 1 Step (curb) (QC): 6 4 Steps (QC): 6 12 Steps (QC): 6 Stairs Level Of Assist: 6 Picking up an Object (QC): 6 PT Plan Problem List Problem List: Activity Tolerance, Functional Strength, Safety, Balance, Gait, Transfer, Bed Mobility Treatment/Plan Treatment Plan: Continue Plan of Care Treatment Plan: Bed Mobility, Education, Functional Activity Farshad, Functional Strength, Group Therapy, Gait, Safety, Therapeutic Exercise, Transfers Treatment Duration: Apr 29, 2018 Frequency: Modified Program (IRF) Estimated Hrs Per Day: 1.5 hours per day Patient and/or Family Agrees t: Yes Safety Risks/Education Patient Education: Gait Training, Transfer Techniques, Steps, Correct Positioning, Safety Issues Teaching Recipient: Patient Teaching Methods: Demonstration, Discussion Response to Teaching: Reinforcement Needed Time/GCodes Time In: 1330 Time Out: 1400 Total Billed Treatment Time: 30 Total Billed Treatment 1 visit GT 15' FA 15' MARIA A DUBON PT Apr 11, 2018 14:50
[2018-04-11 16:47] VITALS: BP 145/77
--- NOTE | 2018-04-11 19:25 | PM & R (SOAP) Progress Note ---
Subjective This was a face to face visit with the patient. Date Seen by Provider: Apr 11, 2018 Time Seen by Provider: 19:10 Subjective/Events-last exam Patient was seen in his room this evening Patient SBA for transfers Objective Physician Exam Last Set of Vital Signs Vital Signs Date Time Temp Pulse Resp B/P (MAP) Pulse Ox O2 Delivery O2 Flow Rate FiO2 04/11/18 16:47 96.0 74 16 145/77 (99) 94 NIV CPAP Capillary Refill : I&O Intake and Output 04/11/18 00:00 Intake Total 1730 ml Balance 1730 ml Intake Oral 1730 ml # Voids 7 # Bowel Movements 1 General: Alert, Oriented X3, Cooperative, No Acute Distress HEENT: Atraumatic, PERRLA, EOMI, Mucous Memb Moist/[place] Neck: Supple, No JVD Lungs: Clear to Auscultation Heart: Regular Rate Abdomen: Normal Bowel Sounds, Soft, No Tenderness, Other (distended) Extremities: No Edema Neuro: Other (Weakness both lower limbs as per H&P) Psych/Mental Status: Other (c/o vertigo) Results Lab Data Laboratory Tests 04/08/18 20:23: Glucometer 248H 04/09/18 05:26: Glucometer 285H 04/09/18 11:19: Glucometer 305H 04/09/18 14:26: Glucometer 344H 04/09/18 20:18: Glucometer 248H 04/10/18 06:22: Glucometer 185H 04/10/18 10:10: Glucometer 270H 04/10/18 15:25: Glucometer 303H 04/10/18 20:43: Glucometer 264H 04/11/18 06:14: Glucometer 225H 04/11/18 16:09: Glucometer 173H Assessment/Plan Assessment and Plan 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
--- NOTE | 2018-04-11 19:33 | Individualized Plan of Care ---
Individualized Plan of Care Rehab Nursing IPOC Order Admission Date Apr 08, 2018 at 10:10 Current Orders Orders Pt Evaluate/Treat Request (04/08/18 08:58) Request Ot Evaluate & Treat (04/08/18 08:58) Request For Cognitive Services (04/08/18 08:58) Admission Order(Inpt,Obs,Sdc) (04/08/18 11:47) Vital Signs: Routine (Order) 08,16,00 (04/08/18 11:47) Maintenance Trainer-Inpt Rehab Con (04/08/18 11:47) Rehab Nursing Orders-Ipoc (04/08/18 11:47) Turn And Reposition Q2HR (04/08/18 11:47) Intake & Output 06,14,22 (04/08/18 11:47) Weekly Weight (Lbs) WEEK (04/08/18 11:47) Code/Resuscitation (04/08/18 11:47) Code/Resuscitation (04/08/18 11:49) Accucheck 2 Hr Postpr & Fastin 06,0930,1430,1930 (04/08/18 11:49) Sequential Compression Device 08,20 (04/08/18 11:49) Weight Bearing Status (04/08/18 11:49) Cho 60g/M 0snack (16-2000 Yang) (04/08/18 Dinner) Allopurinol Tablet (Zyloprim Tablet) (04/09/18 09:00) Amitriptyline Tablet (Elavil Tablet) (04/08/18 21:00) Ascorbic Acid Tablet (Vitamin C Tablet) (04/08/18 17:00) Aspirin Enteric Coated Tablet (Ecotrin T (04/09/18 09:00) Carvedilol Tablet (Coreg Tablet) (04/08/18 21:00) Clopidogrel Tablet (Plavix Tablet) (04/09/18 09:00) Docusate Sodium Capsule (Colace Capsule) (04/08/18 21:00) Enoxaparin Injection (Lovenox Injection) (04/08/18 20:00) Finasteride Tablet (Proscar Tablet) (04/08/18 21:00) Folic Acid Tablet (Folic Acid Tablet) (04/08/18 21:00) Gemfibrozil Tablet (Lopid Tablet) (04/09/18 09:00) Magnesium Oxide Tablet (Mag Ox Tablet) (04/09/18 09:00) Meclizine Tablet (Antivert Tablet) (04/08/18 12:00) Nitroglycerin 0.4 Mg Btl 25's (Nitrostat (04/08/18 12:00) Ondansetron Injection (Zofran Injectio (04/08/18 12:00) Sodium Chloride Flush (Catheter Flush Sy (04/08/18 12:00) Tamsulosin Capsule (Flomax Capsule) (04/08/18 21:00) Venlafaxine Xr Capsule (Effexor Xr Capsu (04/09/18 07:00) Amlodipine Tablet (Norvasc Tablet) (04/09/18 09:00) Clonidine Tablet (Catapres Tablet) (04/08/18 12:00) Insulin Aspart (Novolog) (Novolog (Charg (04/08/18 16:00) Insulin Determir (Per Unit) (Levemir (Pe (04/08/18 21:00) Rt Request For Service (04/08/18 11:49) Consult Physician (04/08/18 11:53) Valsartan Tablet (Diovan Tablet) (04/09/18 09:00) Cho 60g/M 0snack (16-2000 Yang) (04/08/18 Lunch) Notify Physician: (04/08/18 12:05) Sodium Chloride Flush (Catheter Flush Sy (04/08/18 14:00) Valsartan Tablet (Diovan Tablet) (04/08/18 21:00) Insulin Aspart (Novolog) (Novolog (Charg (04/08/18 14:30) Oxygen Delivery Set Up (04/08/18 12:05) Acetaminophen Tablet (Tylenol Tablet) (04/08/18 12:15) Calcium Carbonate W/Vitamin D3 (Calcarb (04/09/18 07:00) Cholecalciferol Capsule/Tablet (Vitamin (04/08/18 21:00) Magnesium Hydroxide Oral Susp (Mom Oral (04/08/18 12:15) Naproxen Tablet (Naprosyn Tablet) (04/08/18 12:15) [place] 3 Capsule (Fish Oil Capsule) (04/08/18 17:00) Ondansetron Oral Dissolve Tab (Zofran (04/08/18 12:15) D-Alpha Tochopheryl Capsule (Vitamin E C (04/09/18 09:00) Consult Physician (04/08/18 13:09) Patient Visit (04/08/18 ) Pt Eval Moderate Complexity (04/08/18 ) Exercise Therap, Ea 15 Min (04/08/18 ) Functional Activities, Ea 15 (04/08/18 ) Patient Visit (04/08/18 ) Speech Sound Lang Comp (04/08/18 ) Patient Visit (04/09/18 ) Exercise Therap, Ea 15 Min (04/09/18 ) Gait Training, Ea 15 Min (04/09/18 ) Patient Visit (04/11/18 ) Exercise Therap, Ea 15 Min (04/11/18 ) Gait Training, Ea 15 Min (04/11/18 ) Ex Neuromuscular, Ea 15 Min (04/11/18 ) Functional Activities, Ea 15 (04/11/18 ) Rehab Nursing Orders: Ongoing Assess. of Cognitive Status, Ongoing Assess. of Function Status, Disease Management & Educaiton, DVT Prophylaxis, Fall Prevention, Fluid/Electrolyte/Nutrition Mgmt, Infection Prevention, Medication Management & Education, Management of Risks & Complications, Management of Skin Intergrity, Nutrition Management, Pain Management, Patient/Family Support PT IPOC Problem List: Activity Tolerance, Functional Strength, Safety, Balance, Gait, Transfer, Bed Mobility Treatment Plan: Continue Plan of Care Bed Mobility, Education, Functional Activity Farshad, Functional Strength, Group Therapy, Gait, Safety, Therapeutic Exercise, Transfers Treatment Duration: Apr 29, 2018 Frequency: Modified Program (IRF) Estimated Hrs Per Day: 1.5 hours per day OT IPOC Problems: Decreased Activ Tolerance, Decreased UE Strength, Dependent Transfers , Impaired Funct Balance, Impaired I ADL's, Impaired Self-Care Skills OT Treatment, Training and Edu: Yes OT Problems Pt demonstrates decreased ADL functioning, mobility, strength, and activity tolerance. Pt to benefit from skilled OT intervention for ADL training, transfers, strengthening, and home safety education to maximize level of function and allow safe discharge home. Plan of Care: ADL Retraining, Functional Mobility, Group Exercise/Act as Ind, UE Funct Exercise/Act Treatment Duration: Apr 29, 2018 Frequency: At least 5 of 7 days/Wk (IRF) Estimated Hrs Per Day: 1.5 hours per day [facility] Speech Therapy Treatment Plan: Modify Plan, See Comments (no therapy indcated) Treatment Duration: Apr 11, 2018 Frequency: Modified Program (IRF) (0) Estimated Hrs Per Day: Other (0) Maintenance Trainer/Case Mgmt Maintenance Trainer/Case Managemen: Discharge Planning, Patient/Family Counseling Dietitian/Cabinet Assembler Dietitian/Cabinet Assembler to monitor nutritional status and make changes and/or recommendations as needed and work with speech pathology on dietary upgrades as the occur. Physician IPOC Medical Issues being managed closely and that require the 24 hour availability of a physician: DM Vertigo CAD TREE on cpap C code 16 Etiologic DX Generalized weakness Medical Issues: DVT Prophylaxis, Falls Precautions, Infection Protection, Pain Management, Other (List) (as per above) Brief Synthesis of Preadmission Screen, Post-Admission Evaluation, and Therapy Evaluations: 67 yo male disabled who was admitted to [facility] re fever and weakness felt to be due to viral syndrome Left with general debil due to this and referrred to IRU PMH TREE DM.Had been Independent prior to this Medical Prognosis: good Anticipated Length of Stay: 18 Modified Indepndent for adls and mobility skills Anticipated d/c Destination: Home with [facility] ARMEN TENORIO MD Apr 11, 2018 19:33
[2018-04-11] MEDS: TAMSULOSIN 0.4 MG (FLOMAX) CAP PO SCH (20:48)
[2018-04-11] MEDS: VALSARTAN 160 MG (DIOVAN) TABLET PO SCH (20:49)
[2018-04-11] MEDS: AMITRIPTYLINE 25 MG (ELAVIL) TAB PO SCH (20:49)
[2018-04-11] MEDS: FINASTERIDE (PROSCAR) 5 MG TAB PO SCH (20:49)
[2018-04-12 05:47] VITALS: BP 168/86
[2018-04-12] MEDS: inSUlin ASPART (NovoLOG) 1 UNIT/0.01 ML (CHARGE PER UNIT) SC SCH ×7 (06:14→21:57)
[2018-04-12] MEDS: OMEGA 3 (FISH OIL) 1000 MG CAP PO SCH ×2 (06:15→17:27)
[2018-04-12] MEDS: ASCORBIC ACID (VIT C) 500 MG TABLET PO SCH ×2 (06:15→17:27)
[2018-04-12] MEDS: VENlafaxine XR 75 MG (EFFEXOR XR) CAP PO SCH (06:15)
[2018-04-12] MEDS: CALCIUM CARB + VIT D 600 MG (CALCARB + D) TAB PO SCH (06:15)
[2018-04-12] MEDS: CATHETER FLUSH 10 ML SYR IV SCH ×2 (06:15→13:35)
[2018-04-12] MEDS: ENOXAPARIN 40 MG/0.4 ML (LOVENOX) SYR SC SCH ×2 (08:38→21:57)
[2018-04-12] MEDS: VITAMIN D3 1,000 UNITS (CHOLECALCIFEROL) TABLET PO SCH ×2 (08:38→21:58)
[2018-04-12] MEDS: VITAMIN E 400 INTLU CAP PO SCH (08:38)
[2018-04-12] MEDS: GEMFIBROZIL 600 MG (LOPID) TAB PO SCH (08:39)
[2018-04-12] MEDS: MAGNESIUM OXIDE (MAG-OX)400 MG TAB PO SCH (08:39)
[2018-04-12] MEDS: ALLOPURINOL 100 MG (ZYLOPRIM) TAB PO SCH (08:39)
[2018-04-12] MEDS: CARVEDILOL 12.5 MG (COREG) TABLET PO SCH ×2 (08:40→21:58)
[2018-04-12] MEDS: FOLIC ACID 1 MG TAB PO SCH ×2 (08:40→21:58)
[2018-04-12] MEDS: amLODIPine 10 MG (NORVASC) TAB PO SCH (08:41)
[2018-04-12] MEDS: CLOPIDOGREL 75 MG (PLAVIX) TABLET PO SCH (08:41)
[2018-04-12] MEDS: ASPIRIN E.C. 81 MG (ECOTRIN) TAB PO SCH (08:41)
[2018-04-12] MEDS: inSUlin DETERMIR 1 UNIT/0.01 ML (LEVEMIR) CHARGE PER UNIT SQ SCH ×2 (08:42→21:56)
[2018-04-12] MEDS: DOCUSATE SODIUM 100 MG (COLACE) CAP PO SCH ×2 (08:44→21:59)
--- NOTE | 2018-04-12 09:13 | PM & R (SOAP) Progress Note ---
Subjective This was a face to face visit with the patient. Date Seen by Provider: Apr 12, 2018 Time Seen by Provider: 08:00 Subjective/Events-last exam Patient was seen in his room this AM Patient SBA for transfers Objective Physician Exam Last Set of Vital Signs Vital Signs Date Time Temp Pulse Resp B/P (MAP) Pulse Ox O2 Delivery O2 Flow Rate FiO2 04/12/18 05:47 97.4 83 16 168/86 (113) 94 NIV CPAP Capillary Refill : I&O Intake and Output 04/12/18 00:00 Intake Total 1650 ml Balance 1650 ml Intake Oral 1650 ml # Voids 7 # Bowel Movements 1 General: Alert, Oriented X3, Cooperative, No Acute Distress HEENT: Atraumatic, PERRLA, EOMI, Mucous Memb Moist/[place] Neck: Supple, No JVD Lungs: Clear to Auscultation Heart: Regular Rate Abdomen: Normal Bowel Sounds, Soft, No Tenderness, Other (distended) Extremities: No Edema Neuro: Other (Weakness both lower limbs as per H&P) Psych/Mental Status: Other (c/o vertigo) Results Lab Data Laboratory Tests 04/09/18 11:19: Glucometer 305H 04/09/18 14:26: Glucometer 344H 04/09/18 20:18: Glucometer 248H 04/10/18 06:22: Glucometer 185H 04/10/18 10:10: Glucometer 270H 04/10/18 15:25: Glucometer 303H 04/10/18 20:43: Glucometer 264H 04/11/18 06:14: Glucometer 225H 04/11/18 16:09: Glucometer 173H 04/11/18 20:46: Glucometer 248H 04/12/18 05:30: Glucometer 218H Assessment/Plan Assessment and Plan 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
--- NOTE | 2018-04-12 09:57 | Physical Therapy Daily Note ---
PT Daily Note-Current Subjective pt in recliner pre tx, agrees to PT, no pain to report, pt states he is able to look up/forward more with his neck today w/o getting dizzy Appearance Pt in recliner post tx, w/ phone, call light, tray, all needs met Mental Status Patient Orientation: Person, Place, Time Transfers Functional [place] Measure 0=Not Assessed/NA 4=Minimal Assistance 1=Total Assistance 5=Supervision or Setup 2=Maximal Assistance 6=Modified [place] 3=Moderate Assistance 7=Complete IndependenceIRFPAI Quality Coding Scale 6 Independent with activity with or without an assistive device 5 Patient requires set up or clean up by helper. Patient completes activity by themselves 4 Supervision or touching assist (CGA). [place] provide cues , steadying assist 3 The helper provides less than half the effort to complete the activity 2 The helper provides more than half the effort to complete the activity 1 Dependent. The helper does all the effort to complete an activity 7 Patient refused to complete or attempt activity 9 The patient did not perform the activity before the current illness or injury 88 Not attempted due to Medical conditions or safety concerns Transfers (B, C, W/C) (FIM): 5 Sit to/from Stand: 5 sit<->stand SBA, pt tends to flop into chair instead of controlling descent Weight Bearing Right Lower Extremity: Right Weight Bearing/Tolerated Left Lower Extremity: Left Weight Bearing/Tolerated Gait Training Does the Patient Walk?: Yes Gait (FIM): 5 Distance: 150'x2, 120' Gait Level of Assist: 5 Gait Persons Needed: 1 Gait Assistive Device: FWW Pt ambulates to/from gym w/ FWW and SBA, normal gait speed and requires fewer rest breaks due to dizziness, pt demonstrates bilateral knee extension during gait likely due to quad weakness Stair Training Stair Training: Handrails/: 2 handrails Stairs (FIM): 2 #of Steps: 4 Stairs: Pattern: Reciprocal Level of Assist: 5 Pt ascends/descends 4 stairs at a time and walks 40' before taking rest break. 16 total steps Pt descends w/ fully extended knees bilaterally, likely due to quadriceps weakness Exercises NuStep Minutes: 15 NuStep Workload: 3 Treatments gait and mobility training, stair training, endurance training Assessment Current Status: Fair Progress improved endurance and mobility w/ gait and exercise tolerance, decreased rest breaks needed due to dizziness PT Short Term Goals Short Term Goals Time Frame: Apr 15, 2018 Transfers (B,C,W/C) (FIM): 6 Gait (FIM): 5 Gait Distance Comment: >400' Gait Level of Assist: 5 Gait Assistive Device: FWW Stairs (FIM): 5 # of Steps: 12 Stairs Level of Assist: 5 PT Body Straightener Goals Chcf Goals PT Chcf Goals Time Frame: Apr 29, 2018 Transfers (B,C,W/C) (FIM): 7 Sit to Lying (QC): 6 Lying-Sitting on Side/Bed(QC): 6 Sit to Stand (QC): 6 Rollin Roll Left to Right (QC): 6 Chair/Zdw-oh-Yukjf Xfer(QC): 6 Car Transfer (QC): 6 Does the Patient Walk: Yes Gait (FIM): 6 Distance: >400' Walk 10 feet (QC): 6 Walk 10ft-Uneven Surface(QC): 6 Walk 50ft with 2 Turns (QC): 6 Walk 150 ft (QC): 6 Gait Level of Assist: 6 Gait Assistive Device: Cane Single Point # of Steps: 6 1 Step (curb) (QC): 6 4 Steps (QC): 6 12 Steps (QC): 6 Stairs Level Of Assist: 6 Picking up an Object (QC): 6 PT Plan Problem List Problem List: Activity Tolerance, Functional Strength, Safety, Balance, Gait, Transfer, Bed Mobility Treatment/Plan Treatment Plan: Continue Plan of Care Treatment Plan: Bed Mobility, Education, Functional Activity Farshad, Functional Strength, Group Therapy, Gait, Safety, Therapeutic Exercise, Transfers Treatment Duration: Apr 29, 2018 Frequency: Modified Program (IRF) Estimated Hrs Per Day: 1.5 hours per day Patient and/or Family Agrees t: Yes Safety Risks/Education Patient Education: Gait Training, Transfer Techniques, Correct Positioning, Safety Issues Teaching Recipient: Patient Teaching Methods: Demonstration, Discussion Response to Teaching: Reinforcement Needed Time/GCodes Time In: 0900 Time Out: 1000 Total Billed Treatment Time: 60 Total Billed Treatment 1 visit GT 25' EX 35' BETTY STRONG PT Apr 12, 2018 09:57
--- NOTE | 2018-04-12 12:51 | Occupational Ther Daily Note ---
OT Current Status-Daily Note Subjective Pt agreeable to treatment this morning. Pt states his "legs are sore," but does not rate pain. Mental Status/Objective Functional [place] Measure 0=Not Assessed/NA 4=Minimal Assistance 1=Total Assistance 5=Supervision or Setup 2=Maximal Assistance 6=Modified [place] 3=Moderate Assistance 7=Complete [place] ADL-Treatment Pt declined shower this morning. Sit to stand with supervision. Gait to restroom with FWW, with SBA. Pt stood at sink to brush teeth, comb hair, and wash face with SBA. Pt stood at toilet to urinate with SBA. Able to manage clothing with supervision for balance. Functional [place] Measure 0=Not Assessed/NA 4=Minimal Assistance 1=Total Assistance 5=Supervision or Setup 2=Maximal Assistance 6=Modified [place] 3=Moderate Assistance 7=Complete IndependenceIRFPAI Quality Coding Scale 6 Independent with activity with or without an assistive device 5 Patient requires set up or clean up by helper. Patient completes activity by themselves 4 Supervision or touching assist (CGA). [place] provide cues , steadying assist 3 The helper provides less than half the effort to complete the activity 2 The helper provides more than half the effort to complete the activity 1 Dependent. The helper does all the effort to complete an activity 7 Patient refused to complete or attempt activity 9 The patient did not perform the activity before the current illness or injury 88 Not attempted due to Medical conditions or safety concerns Toileting (FIM): 5 Other Treatment Pt performed gait to therapy gym with FWW. Pt took one seated rest break secondary to c/o dizziness. Arm bike [id number] to increase overall strength and activity tolerance needed for functional task completion. Pt completed task with moderate resistance and slow pace. Two rest breaks taken during activity. Pt completed bilateral UE exercises to increase strength for ADLs and transfers. Pt performed 15 reps of 5 exercises with 3# weights, focusing on strengthening shoulder, biceps, and triceps. Rest breaks between exercises. Occasional skilled cues for proper exercise technique. Pt completed fine motor task with nuts and bolts with 2# weights to increase coordination and fine motor control. Graded clothespins task with bilateral hands with 2# weights to increase environment coordinator strength and activity tolerance. Gait back to room with FWW, SBA for balance. Pt transferred to bed with SBA. Sit to supine with modified independence. Pt resting in bed with needs met after session. OT Short Term Goals Short Term Goals Transfers (B,C,W/C) (FIM): 6 1=Demonstrate adherence to instructed precautions during ADL tasks. 2=Patient will verbalize/demonstrate understanding of assistive devices/ modifications for ADL. 3=Patient will improve strength/tolerance for activity to enable patient to perform ADL's. OT Telephone Supervisor Goals Fdc Goals Time Frame: Apr 29, 2018 Eating (FIM): 6 Eating (QC): 6 Groomin Oral Hygiene (QC): 6 Bathing(FIM): 6 Shower/Bathe Self (QC): 6 Upper Body Dressing(FIM): 6 Upper Body Dressing (QC): 6 Lower Body Dressing(FIM): 6 Lower Body Dressing (QC): 6 On/Off Footwear (QC): 6 Toileting(FIM): 6 Toileting Hygiene (QC): 6 Toilet/Commode Transfer(FIM): 6 Toilet/Commode Transfer (QC): 6 Shower Transfer(FIM): 6 Additional Goals: 2-Verbalize Understanding, 3-ImproveStrength/Farshad 1=Demonstrate adherence to instructed precautions during ADL tasks. 2=Patient will verbalize/demonstrate understanding of assistive devices/ modifications for ADL. 3=Patient will improve strength/tolerance for activity to enable patient to perform ADL's. OT Education/Plan Problem List/Assessment Pt demonstrates decreased ADL functioning, mobility, strength, and activity tolerance. Pt to benefit from skilled OT intervention for ADL training, transfers, strengthening, and home safety education to maximize level of function and allow safe discharge home. Discharge Recommendations Plan/Recommendations: Continue POC Treatment Plan/Plan of Care Patient would benefit from OT for education, treatment and training to promote independence in ADL's, mobility, safety and/or upper extremity function for ADL' s. Plan of Care: ADL Retraining, Functional Mobility, Group Exercise/Act as Ind, UE Funct Exercise/Act Treatment Duration: Apr 29, 2018 Frequency: At least 5 of 7 days/Wk (IRF) Estimated Hrs Per Day: 1.5 hours per day Rehab Potential: Good Time/GCodes Start Time: 10:30 Stop Time: 12:00 Total Time Billed (hr/min): 90 Billed Treatment Time 1 visit, ADL(15minutes), FA(15minutes), EXx4(60minutes) LEONA DYSON OT Apr 12, 2018 12:51
--- NOTE | 2018-04-12 13:53 | Physical Therapy Daily Note ---
PT Daily Note-Current Subjective pt in bed pre tx, agrees to PT, no pain to report Appearance pt in bed post tx, w/ phone, call light, tray, all needs met Mental Status Patient Orientation: Person, Place, Time Transfers Functional [place] Measure 0=Not Assessed/NA 4=Minimal Assistance 1=Total Assistance 5=Supervision or Setup 2=Maximal Assistance 6=Modified [place] 3=Moderate Assistance 7=Complete IndependenceIRFPAI Quality Coding Scale 6 Independent with activity with or without an assistive device 5 Patient requires set up or clean up by helper. Patient completes activity by themselves 4 Supervision or touching assist (CGA). [place] provide cues , steadying assist 3 The helper provides less than half the effort to complete the activity 2 The helper provides more than half the effort to complete the activity 1 Dependent. The helper does all the effort to complete an activity 7 Patient refused to complete or attempt activity 9 The patient did not perform the activity before the current illness or injury 88 Not attempted due to Medical conditions or safety concerns Transfers (B, C, W/C) (FIM): 5 Scootin Rollin Supine to/from Sit: 5 Sit to/from Stand: 5 SBA w/ all transfers, pt needs cues for reaching back to chair/bed when sitting to avoid flopping and be more controlled Weight Bearing Right Lower Extremity: Right Weight Bearing/Tolerated Left Lower Extremity: Left Weight Bearing/Tolerated Gait Training Does the Patient Walk?: Yes Gait (FIM): 5 Distance: 150'x3 Gait Level of Assist: 5 Gait Persons Needed: 1 Gait Assistive Device: FWW pt ambulates to/from gym and round rehab unit w/ FWW and SBA, pt notes fewer dizzy spells, good gait speed, but shows increased bilateral knee extension likely due to quad weakness Exercises Seated Therapy Exercises: Long arc quads (3# wt), Hamstring Curls (red band) Seated Reps: 40 Treatments gait training, functional strengthening Assessment Current Status: Fair Progress improved mobility and activity tolerance w/ fewer bouts of dizziness and increasing gait distance w/o SOB PT Short Term Goals Short Term Goals Time Frame: Apr 15, 2018 Transfers (B,C,W/C) (FIM): 6 Gait (FIM): 5 Gait Distance Comment: >400' Gait Level of Assist: 5 Gait Assistive Device: FWW Stairs (FIM): 5 # of Steps: 12 Stairs Level of Assist: 5 PT Glass Sander Belt Goals Glass Sander Belt Goals PT Retirement Goals Time Frame: Apr 29, 2018 Transfers (B,C,W/C) (FIM): 7 Sit to Lying (QC): 6 Lying-Sitting on Side/Bed(QC): 6 Sit to Stand (QC): 6 Rollin Roll Left to Right (QC): 6 Chair/Xzs-hd-Llkuc Xfer(QC): 6 Car Transfer (QC): 6 Does the Patient Walk: Yes Gait (FIM): 6 Distance: >400' Walk 10 feet (QC): 6 Walk 10ft-Uneven Surface(QC): 6 Walk 50ft with 2 Turns (QC): 6 Walk 150 ft (QC): 6 Gait Level of Assist: 6 Gait Assistive Device: Cane Single Point # of Steps: 6 1 Step (curb) (QC): 6 4 Steps (QC): 6 12 Steps (QC): 6 Stairs Level Of Assist: 6 Picking up an Object (QC): 6 PT Plan Problem List Problem List: Activity Tolerance, Functional Strength, Safety, Balance, Gait, Transfer, Bed Mobility Treatment/Plan Treatment Plan: Continue Plan of Care Treatment Plan: Bed Mobility, Education, Functional Activity Farshad, Functional Strength, Group Therapy, Gait, Safety, Therapeutic Exercise, Transfers Treatment Duration: Apr 29, 2018 Frequency: Modified Program (IRF) Estimated Hrs Per Day: 1.5 hours per day Patient and/or Family Agrees t: Yes Safety Risks/Education Patient Education: Gait Training, Transfer Techniques, Correct Positioning, Safety Issues Teaching Recipient: Patient Teaching Methods: Demonstration, Discussion Response to Teaching: Reinforcement Needed Time/GCodes Time In: 1300 Time Out: 1330 Total Billed Treatment Time: 30 Total Billed Treatment 1 visit GT 15' EX 15' BETTY STRONG PT Apr 12, 2018 13:53
[2018-04-12 15:52] VITALS: BP 161/80
[2018-04-12] MEDS: VALSARTAN 160 MG (DIOVAN) TABLET PO SCH (21:58)
[2018-04-12] MEDS: AMITRIPTYLINE 25 MG (ELAVIL) TAB PO SCH (21:58)
[2018-04-12] MEDS: FINASTERIDE (PROSCAR) 5 MG TAB PO SCH (21:58)
[2018-04-12] MEDS: TAMSULOSIN 0.4 MG (FLOMAX) CAP PO SCH (21:59)
[2018-04-13 05:42] VITALS: BP 149/70
[2018-04-13] MEDS: inSUlin ASPART (NovoLOG) 1 UNIT/0.01 ML (CHARGE PER UNIT) SC SCH ×7 (06:13→20:55)
[2018-04-13] MEDS: CATHETER FLUSH 10 ML SYR IV SCH ×4 (06:16→21:01)
[2018-04-13] MEDS: VITAMIN D3 1,000 UNITS (CHOLECALCIFEROL) TABLET PO SCH ×2 (09:05→20:54)
[2018-04-13] MEDS: VITAMIN E 400 INTLU CAP PO SCH (09:05)
[2018-04-13] MEDS: CLOPIDOGREL 75 MG (PLAVIX) TABLET PO SCH (09:06)
[2018-04-13] MEDS: DOCUSATE SODIUM 100 MG (COLACE) CAP PO SCH ×2 (09:06→20:56)
[2018-04-13] MEDS: ASPIRIN E.C. 81 MG (ECOTRIN) TAB PO SCH (09:06)
[2018-04-13] MEDS: MAGNESIUM OXIDE (MAG-OX)400 MG TAB PO SCH (09:06)
[2018-04-13] MEDS: amLODIPine 10 MG (NORVASC) TAB PO SCH (09:06)
[2018-04-13] MEDS: GEMFIBROZIL 600 MG (LOPID) TAB PO SCH (09:06)
[2018-04-13] MEDS: ALLOPURINOL 100 MG (ZYLOPRIM) TAB PO SCH (09:06)
[2018-04-13] MEDS: FOLIC ACID 1 MG TAB PO SCH ×2 (09:06→20:54)
[2018-04-13] MEDS: CARVEDILOL 12.5 MG (COREG) TABLET PO SCH ×2 (09:06→20:53)
[2018-04-13] MEDS: ENOXAPARIN 40 MG/0.4 ML (LOVENOX) SYR SC SCH ×2 (09:07→20:54)
[2018-04-13] MEDS: inSUlin DETERMIR 1 UNIT/0.01 ML (LEVEMIR) CHARGE PER UNIT SQ SCH ×2 (09:08→20:55)
[2018-04-13] MEDS: CALCIUM CARB + VIT D 600 MG (CALCARB + D) TAB PO SCH (09:15)
[2018-04-13] MEDS: ASCORBIC ACID (VIT C) 500 MG TABLET PO SCH ×2 (09:15→16:46)
[2018-04-13] MEDS: VENlafaxine XR 75 MG (EFFEXOR XR) CAP PO SCH (09:16)
[2018-04-13] MEDS: OMEGA 3 (FISH OIL) 1000 MG CAP PO SCH ×2 (09:16→16:46)
--- NOTE | 2018-04-13 09:21 | PM & R (SOAP) Progress Note ---
Subjective This was a face to face visit with the patient. Date Seen by Provider: Apr 13, 2018 Time Seen by Provider: 09:15 Subjective/Events-last exam Patient was seen in his room and in common area this AM Patient indicates that his dizziness is better and patient is ready for discharge on Wednesday the Objective Physician Exam Last Set of Vital Signs Vital Signs Date Time Temp Pulse Resp B/P (MAP) Pulse Ox O2 Delivery O2 Flow Rate FiO2 04/13/18 05:42 97.4 73 19 149/70 (96) 97 NIV CPAP Capillary Refill : I&O Intake and Output 04/13/18 00:00 Intake Total 1860 ml Balance 1860 ml Intake Oral 1860 ml # Voids 6 # Bowel Movements 1 General: Alert, Oriented X3, Cooperative, No Acute Distress HEENT: Atraumatic, PERRLA, EOMI, Mucous Memb Moist/[place] Neck: Supple, No JVD Lungs: Clear to Auscultation Heart: Regular Rate Abdomen: Normal Bowel Sounds, Soft, No Tenderness, Other (distended) Extremities: No Edema Neuro: Other (Weakness both lower limbs as per H&P) Psych/Mental Status: Other (c/o vertigo) Results Lab Data Laboratory Tests 04/10/18 10:10: Glucometer 270H 04/10/18 15:25: Glucometer 303H 04/10/18 20:43: Glucometer 264H 04/11/18 06:14: Glucometer 225H 04/11/18 16:09: Glucometer 173H 04/11/18 20:46: Glucometer 248H 04/12/18 05:30: Glucometer 218H 04/12/18 09:44: Glucometer 274H 04/12/18 15:10: Glucometer 267H 04/12/18 20:33: Glucometer 232H 04/13/18 05:29: Glucometer 181H Assessment/Plan Assessment and Plan 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
--- NOTE | 2018-04-13 09:58 | Physical Therapy Daily Note ---
PT Daily Note-Current Subjective pt in bed pre tx, agrees to PT, no pain to report, pt toileted for BM and assisted in changing clothes Appearance pt in bed post tx, w/ phone, call light, tray, all needs met Mental Status Patient Orientation: Person, Place, Time Transfers Functional [place] Measure 0=Not Assessed/NA 4=Minimal Assistance 1=Total Assistance 5=Supervision or Setup 2=Maximal Assistance 6=Modified [place] 3=Moderate Assistance 7=Complete IndependenceIRFPAI Quality Coding Scale 6 Independent with activity with or without an assistive device 5 Patient requires set up or clean up by helper. Patient completes activity by themselves 4 Supervision or touching assist (CGA). [place] provide cues , steadying assist 3 The helper provides less than half the effort to complete the activity 2 The helper provides more than half the effort to complete the activity 1 Dependent. The helper does all the effort to complete an activity 7 Patient refused to complete or attempt activity 9 The patient did not perform the activity before the current illness or injury 88 Not attempted due to Medical conditions or safety concerns Transfers (B, C, W/C) (FIM): 6 Scootin Rollin Supine to/from Sit: 6 Sit to/from Stand: 6 mod I for all transfers, uses armrests for sit<->stand and bed rails for bed mobility and supine<->sit Weight Bearing Right Lower Extremity: Right Weight Bearing/Tolerated Left Lower Extremity: Left Weight Bearing/Tolerated Gait Training Does the Patient Walk?: Yes Gait (FIM): 6 Distance: 150'x2,200' Gait Level of Assist: 6 Gait Assistive Device: Cane Single Point pt ambulates to gym w/ FWW mod I. Pt progressed to SPC, ambulates 200' and from gym to room w/ mod I Stair Training Stair Training: Handrails/: 1 handrail, uses cane Stairs (FIM): 2 #of Steps: 4 Stairs: Pattern: Step to Level of Assist: 5 pt ascends/descends stairs w/ SPC using 1 handrail SBA, [id number], 12 total Exercises NuStep Minutes: 10 NuStep Workload: 4 Treatments gait training, stair training, endurance training Assessment Current Status: Good Progress improved mobility and activity tolerance, pt progressed to SPC and up ad louie for ambulation PT Short Term Goals Short Term Goals Time Frame: Apr 15, 2018 Transfers (B,C,W/C) (FIM): 6 Gait (FIM): 5 Gait Distance Comment: >400' Gait Level of Assist: 5 Gait Assistive Device: FWW Stairs (FIM): 5 # of Steps: 12 Stairs Level of Assist: 5 PT Shot Grinder Operator Goals Correction Goals PT Correction Goals Time Frame: Apr 29, 2018 Transfers (B,C,W/C) (FIM): 7 Sit to Lying (QC): 6 Lying-Sitting on Side/Bed(QC): 6 Sit to Stand (QC): 6 Rollin Roll Left to Right (QC): 6 Chair/Eut-qi-Kwppk Xfer(QC): 6 Car Transfer (QC): 6 Does the Patient Walk: Yes Gait (FIM): 6 Distance: >400' Walk 10 feet (QC): 6 Walk 10ft-Uneven Surface(QC): 6 Walk 50ft with 2 Turns (QC): 6 Walk 150 ft (QC): 6 Gait Level of Assist: 6 Gait Assistive Device: Cane Single Point # of Steps: 6 1 Step (curb) (QC): 6 4 Steps (QC): 6 12 Steps (QC): 6 Stairs Level Of Assist: 6 Picking up an Object (QC): 6 PT Plan Problem List Problem List: Activity Tolerance, Functional Strength, Safety, Balance, Gait, Transfer Treatment/Plan Treatment Plan: Continue Plan of Care Treatment Plan: Bed Mobility, Education, Functional Activity Farshad, Functional Strength, Group Therapy, Gait, Safety, Therapeutic Exercise, Transfers Treatment Duration: Apr 29, 2018 Frequency: Modified Program (IRF) Estimated Hrs Per Day: 1.5 hours per day Patient and/or Family Agrees t: Yes Safety Risks/Education Patient Education: Gait Training, Transfer Techniques, Steps, Correct Positioning, Safety Issues Teaching Recipient: Patient Teaching Methods: Demonstration, Discussion Response to Teaching: Return Demonstration, Reinforcement Needed Time/GCodes Time In: 0900 Time Out: 1000 Total Billed Treatment Time: 60 Total Billed Treatment 1 visit GT 35' FA 15' EX 10' BETTY STRONG PT Apr 13, 2018 09:58
--- NOTE | 2018-04-13 10:50 | D/C HH Face to Face Order ---
D/C Face to Face Orders Instructions for Patient Patient Instructions/FollowUp: Dr. Prabhu Coates Physician to follow Patient: Dr. Pelletier Discharge Diet for Home: Regular Diet Patient Data-Allergies,Ht & Wt Patient Allergies: Coded Allergies: niacin (Unverified Allergy, Unknown, 06/26/10) rosuvastatin (Verified Allergy, Unknown, 04/20/07) fenofibrate (Unverified Adverse Reaction, Unknown, LIVER PROBLEMS, 01/23/15 ) Height (Feet): 6 Height (Inches): 0.00 Weight (Pounds): 334 Weight (Ounces): 0.4 Home Health Need/Face to Face Date of Face to Face: Apr 15, 2018 Clinical Findings: Generalized weakness and fatigue, Muscle weakness, Unsteady gait I have seen Pt [id number]: Yes Discharged To: Home Diagnosis/Conditions: Debility, history of multiple falls, vertigo Patient is Homebound due to: Josh fall risk due to instabilty, Muscle weakness , Shortness of breath/distress Homebound Status Due to the above stated illness, injury or surgical procedure (medical condition or diagnosis) and associated clinical findings, the patient is homebound because of his/her inability to leave home except with aid of a supportive device and/or person AND leaving the home requires a considerable and taxing effort or is medically contraindicated. Pt req the following assistanc: Cane, Walker Home Health Nursing Orders Home Health Services Order: Nursing Services, Tank Storage Supervisor-Evaluate & Treat, Physical Therapy-Evaluate & Treat Home Health Infusion Therapy Line Type: Saline Lock Site Location: Forearm Therapy Orders Therapy Orders: OT (must have SN or PT order), Physical Therapy Therapy Specific Orders: Eval assistive deivces, Teach enviro modifications/ safety, Gait training, Increase strength/endurance Certify Stmt I certify that this patient is under my care and that I, a nurse practitioner or a physician; a office clerk assistant working with me, had a face to face encounter that - meets the physician face to face encounter requirements with this patient as dated. I personally scribed for ARMEN TENORIO MD ([facility]) on 04/13/18 at 10:50. Electronically submitted by Valerie Delaney ([id number]). ARMEN TENORIO MD Apr 13, 2018 10:50
--- NOTE | 2018-04-13 12:04 | Occupational Ther Daily Note ---
OT Current Status-Daily Note Subjective Pt in bed, agrees to treatment. Pt states he will be leaving on Wednesday. Mental Status/Objective Functional [place] Measure 0=Not Assessed/NA 4=Minimal Assistance 1=Total Assistance 5=Supervision or Setup 2=Maximal Assistance 6=Modified [place] 3=Moderate Assistance 7=Complete [place] ADL-Treatment Pt supine to sit with modified independence. Sit to stand with modified independence. Gait to restroom with cane, no LOB noted. Pt doffed clothing without assistance and transferred to walk in shower with supervision for safety. Pt able to complete bathing tasks with set up. Don pullover shirt with set up. Pt attempted to don underwear while standing using grab bar for balance. Unable to thread LE into pant leg. Pt sat on EOB and was able to thread bilateral LE in underwear and shorts. Stood with supervision for balance during pant hike and cues for safety. Don bilateral slip on shoes without assist. Grooming tasks completed while standing at sink. Pt brushed teeth and combed hair with modified independence. Functional [place] Measure 0=Not Assessed/NA 4=Minimal Assistance 1=Total Assistance 5=Supervision or Setup 2=Maximal Assistance 6=Modified [place] 3=Moderate Assistance 7=Complete IndependenceIRFPAI Quality Coding Scale 6 Independent with activity with or without an assistive device 5 Patient requires set up or clean up by helper. Patient completes activity by themselves 4 Supervision or touching assist (CGA). [place] provide cues , steadying assist 3 The helper provides less than half the effort to complete the activity 2 The helper provides more than half the effort to complete the activity 1 Dependent. The helper does all the effort to complete an activity 7 Patient refused to complete or attempt activity 9 The patient did not perform the activity before the current illness or injury 88 Not attempted due to Medical conditions or safety concerns Grooming (FIM): 6 Oral Hygiene (QC): 6 Bathing (FIM): 5 Shower/Bathe Self (QC): 5 Upper Body (FIM): 5 Upper Body Dressing (QC): 5 Lower Body Dressing (FIM): 5 Lower Body Dressing (QC): 4 Shower Transfer(FIM): 5 Other Treatment Gait to therapy gym with FWW, no LOB noted. Pt completed five bilateral UE exercises x15 reps with 3# weight to increase strength needed for ADLs and transfers. Rest breaks between exercises. Arm bike [id number] to increase overall strength and activity tolerance for functional tasks. Pt completed task with moderate resistance and slow pace. Two rest breaks taken during activity. Pt completed resistance putty activity with bilateral hands to increase indirect fire infantryman strength. Pt able to remove small beads from putty without assistance. Pt returned to room using FWW. Sit to supine with modified independence. Pt ordered lunch independently. Pt in bed with needs met after session. Education OT Patient Education: Safety issues Teaching Recipient: Patient OT Short Term Goals Short Term Goals Transfers (B,C,W/C) (FIM): 6 1=Demonstrate adherence to instructed precautions during ADL tasks. 2=Patient will verbalize/demonstrate understanding of assistive devices/ modifications for ADL. 3=Patient will improve strength/tolerance for activity to enable patient to perform ADL's. OT [facility] Goals [facility] Goals Time Frame: Apr 29, 2018 Eating (FIM): 6 Eating (QC): 6 Groomin Oral Hygiene (QC): 6 Bathing(FIM): 6 Shower/Bathe Self (QC): 6 Upper Body Dressing(FIM): 6 Upper Body Dressing (QC): 6 Lower Body Dressing(FIM): 6 Lower Body Dressing (QC): 6 On/Off Footwear (QC): 6 Toileting(FIM): 6 Toileting Hygiene (QC): 6 Toilet/Commode Transfer(FIM): 6 Toilet/Commode Transfer (QC): 6 Shower Transfer(FIM): 6 Additional Goals: 2-Verbalize Understanding, 3-ImproveStrength/Farshad 1=Demonstrate adherence to instructed precautions during ADL tasks. 2=Patient will verbalize/demonstrate understanding of assistive devices/ modifications for ADL. 3=Patient will improve strength/tolerance for activity to enable patient to perform ADL's. OT Education/Plan Problem List/Assessment Pt demonstrates decreased ADL functioning, mobility, strength, and activity tolerance. Pt to benefit from skilled OT intervention for ADL training, transfers, strengthening, and home safety education to maximize level of function and allow safe discharge home. Discharge Recommendations Plan/Recommendations: Continue POC Treatment Plan/Plan of Care Patient would benefit from OT for education, treatment and training to promote independence in ADL's, mobility, safety and/or upper extremity function for ADL' s. Plan of Care: ADL Retraining, Functional Mobility, Group Exercise/Act as Ind, UE Funct Exercise/Act Treatment Duration: Apr 29, 2018 Frequency: At least 5 of 7 days/Wk (IRF) Estimated Hrs Per Day: 1.5 hours per day Rehab Potential: Good Time/GCodes Start Time: 10:25 Stop Time: 11:55 Total Time Billed (hr/min): 90 Billed Treatment Time 1 visit, ADLx3(40minutes), EXx3(50minutes) LEONA DYSON OT Apr 13, 2018 12:04
--- NOTE | 2018-04-13 13:41 | Physical Therapy Daily Note ---
PT Daily Note-Current Subjective Patient in bed pret tx, agrees to PT, no complaints of pain. Appearance Patient in bed post tx with nurse call, phone, tray, all needs met. Mental Status Patient Orientation: Normal For Age Transfers Functional [place] Measure 0=Not Assessed/NA 4=Minimal Assistance 1=Total Assistance 5=Supervision or Setup 2=Maximal Assistance 6=Modified [place] 3=Moderate Assistance 7=Complete IndependenceIRFPAI Quality Coding Scale 6 Independent with activity with or without an assistive device 5 Patient requires set up or clean up by helper. Patient completes activity by themselves 4 Supervision or touching assist (CGA). [place] provide cues , steadying assist 3 The helper provides less than half the effort to complete the activity 2 The helper provides more than half the effort to complete the activity 1 Dependent. The helper does all the effort to complete an activity 7 Patient refused to complete or attempt activity 9 The patient did not perform the activity before the current illness or injury 88 Not attempted due to Medical conditions or safety concerns Transfers (B, C, W/C) (FIM): 6 Scootin Rollin Supine to/from Sit: 6 Sit to/from Stand: 6 Bed to/from Chair: 6 Weight Bearing Right Lower Extremity: Right Weight Bearing/Tolerated Left Lower Extremity: Left Weight Bearing/Tolerated Gait Training Gait (FIM): 6 Distance: 500'x2 Gait Level of Assist: 6 Gait Assistive Device: Cane Single Point Patient is steady for short distances, he becomes a little unsteady with ambulating long distances and needs to keep his hand on the wall. Patient ambulates slowly, but no luciana LOB. He needed a significant rest break between ambulation due to fatigue and SOB. Treatments ambulation, bed mobility, transfers Assessment Current Status: Fair Progress improving endurance PT Short Term Goals Short Term Goals Time Frame: Apr 15, 2018 Transfers (B,C,W/C) (FIM): 6 Gait (FIM): 5 Gait Distance Comment: >400' Gait Level of Assist: 5 Gait Assistive Device: FWW Stairs (FIM): 5 # of Steps: 12 Stairs Level of Assist: 5 PT Chcf Goals Chcf Goals PT Child Development Instructor Goals Time Frame: Apr 29, 2018 Transfers (B,C,W/C) (FIM): 7 Sit to Lying (QC): 6 Lying-Sitting on Side/Bed(QC): 6 Sit to Stand (QC): 6 Rollin Roll Left to Right (QC): 6 Chair/Mww-kz-Zciil Xfer(QC): 6 Car Transfer (QC): 6 Does the Patient Walk: Yes Gait (FIM): 6 Distance: >400' Walk 10 feet (QC): 6 Walk 10ft-Uneven Surface(QC): 6 Walk 50ft with 2 Turns (QC): 6 Walk 150 ft (QC): 6 Gait Level of Assist: 6 Gait Assistive Device: Cane Single Point # of Steps: 6 1 Step (curb) (QC): 6 4 Steps (QC): 6 12 Steps (QC): 6 Stairs Level Of Assist: 6 Picking up an Object (QC): 6 PT Plan Problem List Problem List: Activity Tolerance, Functional Strength, Safety, Balance, Gait, Transfer Treatment/Plan Treatment Plan: Continue Plan of Care Treatment Plan: Bed Mobility, Education, Functional Activity Farshad, Functional Strength, Group Therapy, Gait, Safety, Therapeutic Exercise, Transfers Treatment Duration: Apr 29, 2018 Frequency: Modified Program (IRF) Estimated Hrs Per Day: 1.5 hours per day Patient and/or Family Agrees t: Yes Safety Risks/Education Patient Education: Gait Training, Transfer Techniques, Correct Positioning, Safety Issues Teaching Recipient: Patient Teaching Methods: Demonstration, Discussion Response to Teaching: Reinforcement Needed Time/GCodes Time In: 1300 Time Out: 1330 Total Billed Treatment Time: 30 Total Billed Treatment 1 visit GT 30' BETTY STRONG PT Apr 13, 2018 13:41
[2018-04-13 17:25] VITALS: BP 166/84
[2018-04-13] MEDS: TAMSULOSIN 0.4 MG (FLOMAX) CAP PO SCH (20:53)
[2018-04-13] MEDS: AMITRIPTYLINE 25 MG (ELAVIL) TAB PO SCH (20:54)
[2018-04-13] MEDS: VALSARTAN 160 MG (DIOVAN) TABLET PO SCH (20:54)
[2018-04-13] MEDS: FINASTERIDE (PROSCAR) 5 MG TAB PO SCH (20:54)
[2018-04-14] MEDS: inSUlin ASPART (NovoLOG) 1 UNIT/0.01 ML (CHARGE PER UNIT) SC SCH ×7 (06:42→21:52)
[2018-04-14] MEDS: VENlafaxine XR 75 MG (EFFEXOR XR) CAP PO SCH (06:42)
[2018-04-14] MEDS: ASCORBIC ACID (VIT C) 500 MG TABLET PO SCH ×2 (06:42→17:01)
[2018-04-14] MEDS: CALCIUM CARB + VIT D 600 MG (CALCARB + D) TAB PO SCH (06:42)
[2018-04-14] MEDS: OMEGA 3 (FISH OIL) 1000 MG CAP PO SCH ×2 (06:42→17:01)
[2018-04-14 06:57] VITALS: BP 168/87
[2018-04-14] MEDS: MAGNESIUM OXIDE (MAG-OX)400 MG TAB PO SCH (08:14)
[2018-04-14] MEDS: CARVEDILOL 12.5 MG (COREG) TABLET PO SCH ×2 (08:14→20:36)
[2018-04-14] MEDS: FOLIC ACID 1 MG TAB PO SCH ×2 (08:14→20:35)
[2018-04-14] MEDS: amLODIPine 10 MG (NORVASC) TAB PO SCH (08:14)
[2018-04-14] MEDS: ASPIRIN E.C. 81 MG (ECOTRIN) TAB PO SCH (08:14)
[2018-04-14] MEDS: VITAMIN D3 1,000 UNITS (CHOLECALCIFEROL) TABLET PO SCH ×2 (08:14→20:36)
[2018-04-14] MEDS: VITAMIN E 400 INTLU CAP PO SCH (08:14)
[2018-04-14] MEDS: GEMFIBROZIL 600 MG (LOPID) TAB PO SCH (08:14)
[2018-04-14] MEDS: ALLOPURINOL 100 MG (ZYLOPRIM) TAB PO SCH (08:14)
[2018-04-14] MEDS: CLOPIDOGREL 75 MG (PLAVIX) TABLET PO SCH (08:14)
[2018-04-14] MEDS: ENOXAPARIN 40 MG/0.4 ML (LOVENOX) SYR SC SCH ×2 (08:16→20:35)
[2018-04-14] MEDS: inSUlin DETERMIR 1 UNIT/0.01 ML (LEVEMIR) CHARGE PER UNIT SQ SCH ×2 (08:17→20:35)
[2018-04-14] MEDS: DOCUSATE SODIUM 100 MG (COLACE) CAP PO SCH ×2 (08:18→20:49)
--- NOTE | 2018-04-14 09:58 | Physical Therapy Daily Note ---
PT Daily Note-Current Subjective pt in bed pre tx, agrees to PT, no pain to report Appearance pt in recliner post tx, w/ phone, call light, tray, all needs met Mental Status Patient Orientation: Person, Place, Time Transfers Functional [place] Measure 0=Not Assessed/NA 4=Minimal Assistance 1=Total Assistance 5=Supervision or Setup 2=Maximal Assistance 6=Modified [place] 3=Moderate Assistance 7=Complete IndependenceIRFPAI Quality Coding Scale 6 Independent with activity with or without an assistive device 5 Patient requires set up or clean up by helper. Patient completes activity by themselves 4 Supervision or touching assist (CGA). [place] provide cues , steadying assist 3 The helper provides less than half the effort to complete the activity 2 The helper provides more than half the effort to complete the activity 1 Dependent. The helper does all the effort to complete an activity 7 Patient refused to complete or attempt activity 9 The patient did not perform the activity before the current illness or injury 88 Not attempted due to Medical conditions or safety concerns Transfers (B, C, W/C) (FIM): 6 Scootin Rollin Roll Left to Right (QC): 6 Supine to/from Sit: 6 Sit to/from Stand: 6 Sit to Lying (QC): 6 Sit to Stand (QC): 6 Chair/Pgm-cd-Xqszs Xfer(QC): 6 Bed to/from Chair: 6 Car Transfer (QC): 6 pt able complete all transfers w/ mod I Weight Bearing Right Lower Extremity: Right Weight Bearing/Tolerated Left Lower Extremity: Left Weight Bearing/Tolerated Gait Training Does the Patient Walk?: Yes Gait (FIM): 6 Distance: 200',150'x2 Walk 10 feet (QC): 6 Walk 50 ft with 2 Turns(QC): 6 Walk 150 ft (QC): 6 Walking 10ft/uneven surface-QC: 6 Gait Level of Assist: 6 Gait Persons Needed: 0 Gait Assistive Device: Cane Single Point pt ambulates w/ mod I using SPC, w/ rest breaks needed around 200', pt occasionally unsteady but no LOB, complains of his R knee "popping" today but no pain Patient ambulates 200' with a single point cane with mod I (including 50' with at least 2 turns of 90 degrees and 10' over an uneven surface). Wheelchair Training Does the Pt Use a Wheelchair?: No Stair Training Stair Training: Handrails/: 1 handrail, uses cane Stairs (FIM): 5 #of Steps: 12 1 Step (curb) (QC): 4 4 Steps (QC): 4 12 Steps (QC): 4 Stairs: Pattern: Step to Level of Assist: 6 pt ascends/descends 12 stairs w/ SBA using SPC using one handrail and step-to pattern Balance Picking up an Object (QC): 5 Special Test Comments pt able to brick picker large object off the floor w/o difficulty, but slight LOB when picking up smaller object that requires more bending over Exercises Standing: Side steps side steps 4x10' w/ mod I and SPC, obstacle course: stepping over object, airex pad, step up, side stepping, and picking up object 4 laps Treatments transfers, ambulation, balance and endurance training, stair training Assessment Current Status: Fair Progress improved mobility, balance, and activity tolerance, increased independence w/ stairs PT Short Term Goals Short Term Goals Time Frame: Apr 15, 2018 Transfers (B,C,W/C) (FIM): 6 Gait (FIM): 5 Gait Distance Comment: >400' Gait Level of Assist: 5 Gait Assistive Device: FWW Stairs (FIM): 5 # of Steps: 12 Stairs Level of Assist: 5 PT Skilled Nursing Goals Skilled Nursing Goals PT Manager Branch Goals Time Frame: Apr 29, 2018 Transfers (B,C,W/C) (FIM): 7 Sit to Lying (QC): 6 (met) Lying-Sitting on Side/Bed(QC): 6 (met) Sit to Stand (QC): 6 (met) Rollin (met) Roll Left to Right (QC): 6 (mt) Chair/Ntp-be-Bgbkv Xfer(QC): 6 (met) Car Transfer (QC): 6 (met) Does the Patient Walk: Yes Gait (FIM): 6 (met) Distance: >400' Walk 10 feet (QC): 6 (met) Walk 10ft-Uneven Surface(QC): 6 (met) Walk 50ft with 2 Turns (QC): 6 (met) Walk 150 ft (QC): 6 (met) Gait Level of Assist: 6 (met) Gait Assistive Device: Cane Single Point # of Steps: 6 1 Step (curb) (QC): 6 4 Steps (QC): 6 12 Steps (QC): 6 Stairs Level Of Assist: 6 Picking up an Object (QC): 6 PT Plan Problem List Problem List: Activity Tolerance, Functional Strength, Safety, Balance, Gait, Transfer Treatment/Plan Treatment Plan: Continue Plan of Care Treatment Plan: Bed Mobility, Education, Functional Activity Farshad, Functional Strength, Group Therapy, Gait, Safety, Therapeutic Exercise, Transfers Treatment Duration: Apr 29, 2018 Frequency: Modified Program (IRF) Estimated Hrs Per Day: 1.5 hours per day Patient and/or Family Agrees t: Yes Safety Risks/Education Patient Education: Gait Training, Transfer Techniques, Steps, Correct Positioning, Safety Issues Teaching Recipient: Patient Teaching Methods: Demonstration, Discussion Response to Teaching: Verbalize Understanding, Reinforcement Needed Time/GCodes Time In: 0900 Time Out: 1000 Total Billed Treatment Time: 60 Total Billed Treatment 1 visit GT 40' FA 20' BETTY STRONG PT Apr 14, 2018 09:58
--- NOTE | 2018-04-14 13:20 | Occupational Ther Daily Note ---
OT Current Status-Daily Note Subjective No pain reported but pt. does state that he is tired. Appearance Pt. up in chair. Agrees to work with OT. Mental Status/Objective Patient Orientation: Person, Place, Time, Situation Functional [place] Measure 0=Not Assessed/NA 4=Minimal Assistance 1=Total Assistance 5=Supervision or Setup 2=Maximal Assistance 6=Modified [place] 3=Moderate Assistance 7=Complete [place] ADL-Treatment Functional [place] Measure 0=Not Assessed/NA 4=Minimal Assistance 1=Total Assistance 5=Supervision or Setup 2=Maximal Assistance 6=Modified [place] 3=Moderate Assistance 7=Complete IndependenceIRFPAI Quality Coding Scale 6 Independent with activity with or without an assistive device 5 Patient requires set up or clean up by helper. Patient completes activity by themselves 4 Supervision or touching assist (CGA). [place] provide cues , steadying assist 3 The helper provides less than half the effort to complete the activity 2 The helper provides more than half the effort to complete the activity 1 Dependent. The helper does all the effort to complete an activity 7 Patient refused to complete or attempt activity 9 The patient did not perform the activity before the current illness or injury 88 Not attempted due to Medical conditions or safety concerns Eating (FIM): 6 Eating (QC): 6 Grooming (FIM): 6 Oral Hygiene (QC): 6 Bathing (FIM): 6 (Mod I with some safety concerns when standing to complete dynamic task.) Shower/Bathe Self (QC): 6 Upper Body (FIM): 6 Upper Body Dressing (QC): 6 Lower Body Dressing (FIM): 4 (Pt. adamant that he wants to stand to don underwear. Will not sit so OT does provide assistance to get his foot into hole in stance.) Lower Body Dressing (QC): 4 On/Off Footwear (QC): 6 Toileting (FIM): 6 Toileting Hygiene (QC): 6 Transfers (B, C, W/C) (FIM): 6 (Mod I with some safety concerns. At times, pt. will state he is dizzy when ambulating. BP taken and is 144/71.) Toilet/Commode Transfer (FIM): 6 Toilet Transfer (QC): 6 Shower Transfer(FIM): 6 Other Treatment After ADLs, pt. agrees that fresh air "would be nice." Ambulated to elevator and then to first floor with walker and Mod I. Pt. does report that he feels very fatigued and requests to sit down. Sat outside and talked about needs for home. Pt. states he feels confident that he will have enough assistance and that he has a sister and ex- that will assist him as needed. Pt. states that he is eager to return home, and his family has modified and "cleaned up" his home. After sitting down, pt. agrees to ambulate back to his room on rehab. Ambulates to elevator and then to rehab dining area. Requires rest break. After rest break, pt. ambulated back to room. Education OT Patient Education: Correct positioning, Exercise program, Modified ADL techniques, Progress toward Goal/Update tx plan, Purpose of tx/functional activities, Reviewed precautions, Rehab process, Transfer techniques Teaching Recipient: Patient Teaching Methods: Demonstration, Discussion Response to Teaching: Verbalize Understanding, Return Demonstration OT Short Term Goals Short Term Goals Transfers (B,C,W/C) (FIM): 6 1=Demonstrate adherence to instructed precautions during ADL tasks. 2=Patient will verbalize/demonstrate understanding of assistive devices/ modifications for ADL. 3=Patient will improve strength/tolerance for activity to enable patient to perform ADL's. OT Custodial Goals Custodial Goals Time Frame: Apr 29, 2018 Eating (FIM): 6 Eating (QC): 6 Groomin Oral Hygiene (QC): 6 Bathing(FIM): 6 Shower/Bathe Self (QC): 6 Upper Body Dressing(FIM): 6 Upper Body Dressing (QC): 6 Lower Body Dressing(FIM): 6 Lower Body Dressing (QC): 6 On/Off Footwear (QC): 6 Toileting(FIM): 6 Toileting Hygiene (QC): 6 Toilet/Commode Transfer(FIM): 6 Toilet/Commode Transfer (QC): 6 Shower Transfer(FIM): 6 Additional Goals: 2-Verbalize Understanding, 3-ImproveStrength/Farshad 1=Demonstrate adherence to instructed precautions during ADL tasks. 2=Patient will verbalize/demonstrate understanding of assistive devices/ modifications for ADL. 3=Patient will improve strength/tolerance for activity to enable patient to perform ADL's. OT Education/Plan Problem List/Assessment Assessment: Decreased Activ Tolerance Pt demonstrates decreased ADL functioning, mobility, strength, and activity tolerance. Pt to benefit from skilled OT intervention for ADL training, transfers, strengthening, and home safety education to maximize level of function and allow safe discharge home. Discharge Recommendations Plan/Recommendations: Continue POC Therapy D/C Recommendations: Home w/ Family Support Treatment Plan/Plan of Care Treatment,Training & Education: Yes Patient would benefit from OT for education, treatment and training to promote independence in ADL's, mobility, safety and/or upper extremity function for ADL' s. Plan of Care: ADL Retraining, Functional Mobility, Group Exercise/Act as Ind, UE Funct Exercise/Act Treatment Duration: Apr 29, 2018 Frequency: At least 5 of 7 days/Wk (IRF) Estimated Hrs Per Day: 1.5 hours per day Rehab Potential: Good Time/GCodes Start Time: 10:30 Stop Time: 12:00 Total Time Billed (hr/min): 90 Billed Treatment Time 1, ADL x 45minutes, FA x 45minutes AARON ANTON OT Apr 14, 2018 13:20
--- NOTE | 2018-04-14 14:08 | Physical Therapy Daily Note ---
PT Daily Note-Current Subjective pt in bed pre tx, agrees to PT, pain 4/10 in neck and low back/sacrum (bone spur ) Appearance pt in bed post tx, w/ phone, call light, and tray, all needs met Mental Status Patient Orientation: Person, Place, Time Transfers Functional [place] Measure 0=Not Assessed/NA 4=Minimal Assistance 1=Total Assistance 5=Supervision or Setup 2=Maximal Assistance 6=Modified [place] 3=Moderate Assistance 7=Complete IndependenceIRFPAI Quality Coding Scale 6 Independent with activity with or without an assistive device 5 Patient requires set up or clean up by helper. Patient completes activity by themselves 4 Supervision or touching assist (CGA). [place] provide cues , steadying assist 3 The helper provides less than half the effort to complete the activity 2 The helper provides more than half the effort to complete the activity 1 Dependent. The helper does all the effort to complete an activity 7 Patient refused to complete or attempt activity 9 The patient did not perform the activity before the current illness or injury 88 Not attempted due to Medical conditions or safety concerns Transfers (B, C, W/C) (FIM): 6 Scootin Rollin Supine to/from Sit: 6 Sit to/from Stand: 6 mod I w/ all transfers Weight Bearing Right Lower Extremity: Right Weight Bearing/Tolerated Left Lower Extremity: Left Weight Bearing/Tolerated Gait Training Does the Patient Walk?: Yes Gait (FIM): 6 Distance: 200',150' Gait Level of Assist: 6 Gait Persons Needed: 0 Gait Assistive Device: FWW pt ambulates to/from gym w/ FWW mod I, pt uses FWW instead of SPC due to dizziness and LOB noted from OT session earlier this morning, pt gait is steady w/ good speed, no LOB w/ FWW Exercises Standin way Ex=Flex, Abd, Ext Standing Reps: 20 NuStep Minutes: 15 NuStep Workload: 4 Treatments gait training, functional strengthening, endurance training Assessment Current Status: Fair Progress pt has increased bouts of dizziness and feels need to use FWW for greater stability and prevent LOB, plan to still D/C tomorrow morning PT Short Term Goals Short Term Goals Time Frame: Apr 15, 2018 Transfers (B,C,W/C) (FIM): 6 Gait (FIM): 5 Gait Distance Comment: >400' Gait Level of Assist: 5 Gait Assistive Device: FWW Stairs (FIM): 5 # of Steps: 12 Stairs Level of Assist: 5 PT Boring Machine Operator Helper Goals Boring Machine Operator Helper Goals PT Boring Machine Operator Helper Goals Time Frame: Apr 29, 2018 Transfers (B,C,W/C) (FIM): 7 Sit to Lying (QC): 6 (met) Lying-Sitting on Side/Bed(QC): 6 (met) Sit to Stand (QC): 6 (met) Rollin (met) Roll Left to Right (QC): 6 (mt) Chair/Hlf-tp-Qpcye Xfer(QC): 6 (met) Car Transfer (QC): 6 (met) Does the Patient Walk: Yes Gait (FIM): 6 (met) Distance: >400' Walk 10 feet (QC): 6 (met) Walk 10ft-Uneven Surface(QC): 6 (met) Walk 50ft with 2 Turns (QC): 6 (met) Walk 150 ft (QC): 6 (met) Gait Level of Assist: 6 (met) Gait Assistive Device: Cane Single Point # of Steps: 6 1 Step (curb) (QC): 6 4 Steps (QC): 6 12 Steps (QC): 6 Stairs Level Of Assist: 6 Picking up an Object (QC): 6 PT Plan Problem List Problem List: Activity Tolerance, Functional Strength, Safety, Balance, Gait, Transfer, Bed Mobility Treatment/Plan Treatment Plan: Continue Plan of Care Treatment Plan: Bed Mobility, Education, Functional Activity Farshad, Functional Strength, Group Therapy, Gait, Safety, Therapeutic Exercise, Transfers Treatment Duration: Apr 29, 2018 Frequency: Modified Program (IRF) Estimated Hrs Per Day: 1.5 hours per day Patient and/or Family Agrees t: Yes Safety Risks/Education Patient Education: Gait Training, Transfer Techniques, Steps, Correct Positioning, Safety Issues Teaching Recipient: Patient Teaching Methods: Demonstration, Discussion Response to Teaching: Reinforcement Needed Time/GCodes Time In: 1300 Time Out: 1330 Total Billed Treatment Time: 30 Total Billed Treatment 1 visit GT 15' EX 15' ROSELYN FREEMAN PT Apr 14, 2018 14:08
[2018-04-14 16:20] VITALS: BP 154/82
--- NOTE | 2018-04-14 19:42 | PM & R (SOAP) Progress Note ---
Subjective This was a face to face visit with the patient. Date Seen by Provider: Apr 14, 2018 Time Seen by Provider: 19:30 Subjective/Events-last exam Patient was seen in his room this evening Patient Modified Independent for transfers All set for discharge tomorrow Objective Physician Exam Last Set of Vital Signs Vital Signs Date Time Temp Pulse Resp B/P (MAP) Pulse Ox O2 Delivery O2 Flow Rate FiO2 04/14/18 17:17 Room Air 04/14/18 16:20 97.0 79 14 154/82 (106) 95 Capillary Refill : I&O Intake and Output 04/14/18 00:00 Intake Total 1590 ml Balance 1590 ml Intake Oral 1590 ml # Voids 6 # Bowel Movements 1 General: Alert, Oriented X3, Cooperative, No Acute Distress HEENT: Atraumatic, PERRLA, EOMI, Mucous Memb Moist/[place] Neck: Supple, No JVD Lungs: Clear to Auscultation Heart: Regular Rate Abdomen: Normal Bowel Sounds, Soft, No Tenderness, Other (distended) Extremities: No Edema Neuro: Other (Weakness both lower limbs as per H&P) Psych/Mental Status: Other (c/o vertigo) Results Lab Data Laboratory Tests 04/11/18 20:46: Glucometer 248H 04/12/18 05:30: Glucometer 218H 04/12/18 09:44: Glucometer 274H 04/12/18 15:10: Glucometer 267H 04/12/18 20:33: Glucometer 232H 04/13/18 05:29: Glucometer 181H 04/13/18 09:51: Glucometer 214H 04/13/18 16:32: Glucometer 206H 04/13/18 20:30: Glucometer 236H 04/14/18 06:38: Glucometer 209H 04/14/18 10:09: Glucometer 250H 04/14/18 14:26: Glucometer 238H Assessment/Plan Assessment and Plan 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
[2018-04-14] MEDS: AMITRIPTYLINE 25 MG (ELAVIL) TAB PO SCH (20:35)
[2018-04-14] MEDS: TAMSULOSIN 0.4 MG (FLOMAX) CAP PO SCH (20:35)
[2018-04-14] MEDS: FINASTERIDE (PROSCAR) 5 MG TAB PO SCH (20:35)
[2018-04-14] MEDS: VALSARTAN 160 MG (DIOVAN) TABLET PO SCH (20:36)
[2018-04-15] MEDS: OMEGA 3 (FISH OIL) 1000 MG CAP PO SCH (06:26)
[2018-04-15] MEDS: inSUlin ASPART (NovoLOG) 1 UNIT/0.01 ML (CHARGE PER UNIT) SC SCH ×2 (06:26)
[2018-04-15] MEDS: CALCIUM CARB + VIT D 600 MG (CALCARB + D) TAB PO SCH (06:26)
[2018-04-15] MEDS: VENlafaxine XR 75 MG (EFFEXOR XR) CAP PO SCH (06:26)
[2018-04-15] MEDS: ASCORBIC ACID (VIT C) 500 MG TABLET PO SCH (06:26)
[2018-04-15 06:29] VITALS: BP 161/75
--- NOTE | 2018-04-15 08:09 | PM & R (SOAP) Progress Note ---
Subjective This was a face to face visit with the patient. Date Seen by Provider: Apr 15, 2018 Time Seen by Provider: 07:45 Subjective/Events-last exam Patient was seen in his room this AM Allset for discharge today Patient Modified Independent in room Current meds reviewed Objective Physician Exam Last Set of Vital Signs Vital Signs Date Time Temp Pulse Resp B/P (MAP) Pulse Ox O2 Delivery O2 Flow Rate FiO2 04/15/18 06:29 97.0 64 18 161/75 (103) 95 NIV Bilevel Capillary Refill : I&O Intake and Output 04/15/18 00:00 Intake Total 1310 ml Balance 1310 ml Intake Oral 1310 ml # Voids 5 # Bowel Movements 1 General: Alert, Oriented X3, Cooperative, No Acute Distress HEENT: Atraumatic, PERRLA, EOMI, Mucous Memb Moist/[place] Neck: Supple, No JVD Lungs: Clear to Auscultation Heart: Regular Rate Abdomen: Normal Bowel Sounds, Soft, No Tenderness, Other (distended) Extremities: No Edema Neuro: Other (Weakness both lower limbs as per H&P) Psych/Mental Status: Other (c/o vertigo) Results Lab Data Laboratory Tests 04/12/18 09:44: Glucometer 274H 04/12/18 15:10: Glucometer 267H 04/12/18 20:33: Glucometer 232H 04/13/18 05:29: Glucometer 181H 04/13/18 09:51: Glucometer 214H 04/13/18 16:32: Glucometer 206H 04/13/18 20:30: Glucometer 236H 04/14/18 06:38: Glucometer 209H 04/14/18 10:09: Glucometer 250H 04/14/18 14:26: Glucometer 238H 04/14/18 21:41: Glucometer 264H 04/15/18 06:21: Glucometer 179H Assessment/Plan Assessment and Plan Home today with [facility] Vertigo improved F/U with PCP See orders Co-Morbidities that are continuing to impact the rehab process: (include details ) ARMEN TENORIO MD Apr 15, 2018 08:08
[2018-04-15] MEDS: VITAMIN E 400 INTLU CAP PO SCH (08:59)
[2018-04-15] MEDS: MAGNESIUM OXIDE (MAG-OX)400 MG TAB PO SCH (08:59)
[2018-04-15] MEDS: amLODIPine 10 MG (NORVASC) TAB PO SCH (09:00)
[2018-04-15] MEDS: GEMFIBROZIL 600 MG (LOPID) TAB PO SCH (09:00)
[2018-04-15] MEDS: ALLOPURINOL 100 MG (ZYLOPRIM) TAB PO SCH (09:00)
[2018-04-15] MEDS: ASPIRIN E.C. 81 MG (ECOTRIN) TAB PO SCH (09:00)
[2018-04-15] MEDS: CLOPIDOGREL 75 MG (PLAVIX) TABLET PO SCH (09:01)
[2018-04-15] MEDS: CARVEDILOL 12.5 MG (COREG) TABLET PO SCH (09:01)
[2018-04-15] MEDS: VITAMIN D3 1,000 UNITS (CHOLECALCIFEROL) TABLET PO SCH (09:01)
[2018-04-15] MEDS: FOLIC ACID 1 MG TAB PO SCH (09:01)
[2018-04-15] MEDS: inSUlin DETERMIR 1 UNIT/0.01 ML (LEVEMIR) CHARGE PER UNIT SQ SCH (09:02)
[2018-04-15] MEDS: DOCUSATE SODIUM 100 MG (COLACE) CAP PO SCH (09:05)
[2018-04-15] MEDS: ENOXAPARIN 40 MG/0.4 ML (LOVENOX) SYR SC SCH (09:06)
--- NOTE | 2018-04-15 10:28 | Therapy Team Discharge Summary ---
Therapy Discharge Summary Discharge Recommendations Date of Discharge Therapy D/C Recommendations: Home w/ Family Support Physical Therapy Pt was admitted to IRF for disuse myopathy, with impaired mobility, strength, balance, and endurance. Patient's prior level of function was independent w/ all activity, but did use a cane to ambulate in the community due to dizziness. Upon admission pt was SBA w/ all transfers, CGA using FWW for ambulation ( including 10' over uneven surface, and 50' w/ at least 2 turns of 90 degrees) w / occasional standing rest breaks to combat dizziness. Pt was able to ascend/ descend 8 stairs w/ CGA and use of 2 railings, w/ step-to pattern. Pt has performed bed mobility and transfer training, balance and endurance training, functional strengthening, stair training, gait training, and education. At this time pt is mod I for all transfers, ambulates 200' with a single point cane with mod I (including 50' with at least 2 turns of 90 degrees and 10' over an uneven surface), ascends/descends 12 stairs w/ SBA using SPC using one handrail and step-to pattern, and able to citrus picker and object off the floor w/ SBA. Pt has met all of his senior care goals, with the exceptions of stairs and picking up an object. Pt is discharged from this facility and PT services at this time. Occupational Therapy Decreased Activ Tolerance PT Senior Quality Methods Specialist Goals Assisted Goals PT Senior Quality Methods Specialist Goals Time Frame: Apr 29, 2018 Transfers (B,C,W/C) (FIM): 7 Roll Left to Right (QC): 6 (mt) Sit to Lying (QC): 6 (met) Lying-Sitting on Side/Bed(QC): 6 (met) Sit to Stand (QC): 6 (met) Chair/Dhd-dj-Vvtdu Xfer(QC): 6 (met) Car Transfer (QC): 6 (met) Does the Patient Walk: Yes Gait (FIM): 6 (met) Distance: >400' Walk 10 feet (QC): 6 (met) Walk 10ft-Uneven Surface(QC): 6 (met) Walk 50ft with 2 Turns (QC): 6 (met) Walk 150 ft (QC): 6 (met) Gait Level of Assist: 6 (met) Gait Assistive Device: Cane Single Point # of Steps: 6 1 Step (curb) (QC): 6 4 Steps (QC): 6 12 Steps (QC): 6 Stairs Level Of Assist: 6 Picking up an Object (QC): 6 OT Senior Quality Methods Specialist Goals Assisted Goals Time Frame: Apr 29, 2018 Eating (FIM): 6 Eating (QC): 6 Oral Hygiene (QC): 6 Grooming(FIM): 6 Bathing(FIM): 6 Shower/Bathe Self (QC): 6 Upper Body Dressing(FIM): 6 Upper Body Dressing (QC): 6 Lower Body Dressing(FIM): 6 Lower Body Dressing (QC): 6 On/Off Footwear (QC): 6 Toileting(FIM): 6 Toileting Hygiene (QC): 6 Toilet/Commode Transfer(FIM): 6 Toilet/Commode Transfer (QC): 6 Shower Transfer(FIM): 6 Additional Goals: 2-Verbalize Understanding, 3-ImproveStrength/Farshad 1=Demonstrate adherence to instructed precautions during ADL tasks. 2=Patient will verbalize/demonstrate understanding of assistive devices/ modifications for ADL. 3=Patient will improve strength/tolerance for activity to enable patient to perform ADL's. Speech Senior Quality Methods Specialist Goals Senior Quality Methods Specialist Goals no goals established as no skilled ST is indicated. BETTY STRONG PT Apr 15, 2018 10:28
[2018-04-15 11:56] VITALS: BP 161/75
--- NOTE | 2018-04-15 14:18 | Therapy Team Discharge Summary ---
Therapy Discharge Summary Discharge Recommendations Date of Discharge Apr 15, 2018 at 10:45 Therapy D/C Recommendations: Home w/ Family Support Occupational Therapy Pt admitted to ARU with disuse myopathy. On admission pt required CGA for LE dressing and SBA for ADLs and transfers. Skilled OT intervention focused on ADL training, transfers, and strengthening. Pt progressed with therapy and by discharge is completing eating, grooming, bathing, UE dressing, toilet transfers , and shower transfer with modified independence. Pt required min assist for LE dressing and cues for safety/technique. Pt met all OT LTG except LE dressing. Pt discharged home with family support. D/c ARU OT at this time. Decreased Activ Tolerance PT Chcf Goals Nursery School Teacher Goals PT Nursery School Teacher Goals Time Frame: Apr 29, 2018 Transfers (B,C,W/C) (FIM): 7 Roll Left to Right (QC): 6 (mt) Sit to Lying (QC): 6 (met) Lying-Sitting on Side/Bed(QC): 6 (met) Sit to Stand (QC): 6 (met) Chair/Pvc-ha-Bzmyr Xfer(QC): 6 (met) Car Transfer (QC): 6 (met) Does the Patient Walk: Yes Gait (FIM): 6 (met) Distance: >400' Walk 10 feet (QC): 6 (met) Walk 10ft-Uneven Surface(QC): 6 (met) Walk 50ft with 2 Turns (QC): 6 (met) Walk 150 ft (QC): 6 (met) Gait Level of Assist: 6 (met) Gait Assistive Device: Cane Single Point # of Steps: 6 1 Step (curb) (QC): 6 4 Steps (QC): 6 12 Steps (QC): 6 Stairs Level Of Assist: 6 Picking up an Object (QC): 6 OT Nursery School Teacher Goals Nursery School Teacher Goals Time Frame: Apr 29, 2018 Eating (FIM): 6 Eating (QC): 6 Oral Hygiene (QC): 6 Grooming(FIM): 6 Bathing(FIM): 6 Shower/Bathe Self (QC): 6 Upper Body Dressing(FIM): 6 Upper Body Dressing (QC): 6 Lower Body Dressing(FIM): 6 Lower Body Dressing (QC): 6 On/Off Footwear (QC): 6 Toileting(FIM): 6 Toileting Hygiene (QC): 6 Toilet/Commode Transfer(FIM): 6 Toilet/Commode Transfer (QC): 6 Shower Transfer(FIM): 6 Additional Goals: 2-Verbalize Understanding, 3-ImproveStrength/Farshad 1=Demonstrate adherence to instructed precautions during ADL tasks. 2=Patient will verbalize/demonstrate understanding of assistive devices/ modifications for ADL. 3=Patient will improve strength/tolerance for activity to enable patient to perform ADL's. Speech Chcf Goals Chcf Goals no goals established as no skilled ST is indicated. LEONA DYSON OT Apr 15, 2018 14:18
--- NOTE | 2018-04-26 22:57 | DISCHARGE SUMMARY ---
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 The patient was started on antibiotics empirically by hospitalist service, Dr. Barraza. An LP was unable to be done as the patient was on Plavix. It was felt, however, to be likely a viral syndrome. The patient was left with general debilitation and symptoms consistent with disuse myopathy from all this and referred to inpatient rehabilitation unit. The patient had been independent prior to this. PAST MEDICAL HISTORY: Coronary artery disease, COPD, diabetes mellitus, hypertension, diabetic peripheral neuropathy, [place], CABG. He is on meclizine for vertigo and is to see SHANTI Mcgrath. He is on CPAP for TREE. He has had arthroscopy of the left knee with Dr. Grider in the past. He lives alone in a single-level home. He states that he was found unconscious outside the [facility] in [place], [place] where he lives when this event began. He states he has been retired from [employer] since 2005. PRIMARY CARE PHYSICIAN: Kevin Pelletier DO MEDICAL COURSE: The patient was followed by Dr. Clark while in rehab unit. He was seen by SHANTI Mcgrath while on rehab unit and vestibular exercises were recommended and continued on medications for dizziness with improvement. His pulse was 64 on 04/15/2018. He was afebrile during his stay. His blood pressure 161/75 on 04/15/2018, respirations 18, O2 sat 95% on room air. Glucometer readings from 04/14/2018 to 04/15/2018 varied between 179 and 264. REHABILITATION COURSE: He was assessed by speech therapy upon admission and found to be cognitively intact and they signed off. He was seen by OT and upon admission, the patient required contact guard for lower body dressing, standby assist for ADLs and transfers otherwise. Upon discharge, he requires min assist for lower body dressing and cues for safety and technique. Otherwise, he is modified independent for his ADLs. PT notes upon admission, the patient was standby assist with all transfers, contact guard using front wheeled walker for ambulation. Upon discharge, the patient is modified independent with all transfers, ambulates 200 feet with a single-point cane with modified independence. DISCHARGE INSTRUCTIONS: The patient was discharged to home. He will follow up with Dr. Pelletier and will have outpatient PT. His sister will drive him to therapies. Continue current diet. DISCHARGE MEDICATIONS: Tylenol extra strength 1000 mg p.o. q.4 hours p.r.n. mild pain, allopurinol 100 mg p.o. daily, amitriptyline 25 mg p.o. at bedtime, amlodipine 10 mg p.o. daily, vitamin C 500 mg p.o. b.i.d., ASA 81 mg p.o. daily, calcium carbonate with vitamin D3 1 tablet p.o. daily, Coreg 25 mg p.o. b.i.d., vitamin D3 1000 units p.o. b.i.d., Plavix 75 mg p.o. daily, Colace 100 mg p.o. b.i.d., Proscar 5 mg p.o. at bedtime, folic acid 1 mg p.o. b.i.d., gemfibrozil 600 mg p.o. daily, NovoLog insulin 15 units subq before meals and 67 units of Levemir subq b.i.d., milk of magnesia 30 mL p.o. daily p.r.n. constipation, Mag ox 400 mg p.o. daily, meclizine 25 mg p.o. q.6 hours p.r.n. vertigo, Aleve 440 mg p.o. q.12 hours p.r.n. mild pain, nitroglycerin 0.4 mg sublingual p.r.n. chest pain, fish oil 1000 mg p.o. b.i.d., Zofran 8 mg p.o. q.6 hours p.r.n. nausea, vomiting, Flomax 0.4 mg p.o. at bedtime, valsartan 320 mg p.o. at bedtime, Effexor 150 mg p.o. daily, vitamin E 800 units p.o. daily. DISCHARGE DIAGNOSES: 1. 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 2. Viral syndrome. 3. Difficulty walking. 4. Dizziness. 5. Weakness. 6. Debility 7. Coronary artery disease. 8. Diabetes mellitus 2. 9. Polyneuropathy. 10. Hypertension. 11. Chronic obstructive pulmonary disease. 12. Obstructive sleep apnea. 13. Osteoarthritis. CONDITION AT DISCHARGE: Improved and stable. PROGNOSIS: Rehab prognosis appears good for some continued improvement at home, return to independent living. Job ID: [id number] DocumentID: [id number] Dictated Date: 04/26/2018 10:22:33 Alternative Medicine Practitioner Date: 04/26/2018 22:56:50 Dictated By: ARMEN CLARK MD
== END 2018-04-15 10:45 | disposition home or self-care (01) | DRG 93 ==
PROVIDERS: ADMIT Physical Medicine & Rehabilitation; ATTEND Physical Medicine & Rehabilitation
DX: G72.89 Other specified myopathies (principal); R26.2 Difficulty in walking, not elsewhere classified; R42 Dizziness and giddiness; R53.1 Weakness; R53.81 Other malaise; H90.3 Sensorineural hearing loss, bilateral; I25.10 Atherosclerotic heart disease of native coronary artery without angina pectoris; I25.2 Old myocardial infarction; E11.42 Type 2 diabetes mellitus with diabetic polyneuropathy; I10 Essential (primary) hypertension; J44.9 Chronic obstructive pulmonary disease, unspecified; G47.33 Obstructive sleep apnea (adult) (pediatric); E78.5 Hyperlipidemia, unspecified; M19.91 Primary osteoarthritis, unspecified site; Z95.1 Presence of aortocoronary bypass graft; Z79.02 Long term (current) use of antithrombotics/antiplatelets; Z79.82 Long term (current) use of aspirin
CPT/HCPCS: 82962

== ENCOUNTER 2018-11-07 04:05 | Emergency (ER) | payer MEDICARE ==
[~2018-11-07] VITALS: Ht 182.9 cm; Wt 152.0 kg
[~2018-11-07 04:05] MED LIST changes: -AMLO10TA6 PO; +AMLO10TA7 PO; -GEMF600T4 PO; +GEMF600T8 PO; +LOSA100T57 PO; -LOSA100T8 PO
[2018-11-07] MEDS ORDERED: NS IV 1000 ML 1,000 ML IV SCH (04:12)
[2018-11-07] MEDS ORDERED: inSUlin (REGULAR) HUMAN 1 UNIT/0.01 ML (CHARGE PER UNIT) IV ONE (04:15)
[2018-11-07] MEDS ORDERED: ASPIRIN 81 MG CHEW (CHILDREN'S ASA) PO ONE (04:15)
[2018-11-07 04:23] LABS: BASOPHILS % (AUTO) 0 % (0-10); EOSINOPHILS # (AUTO) 0.1 10^3/uL (0.0-0.3); EOSINOPHILS % (AUTO) 1 % (0-10); HEMATOCRIT 39 % (40-54); HEMOGLOBIN 13.8 G/DL (13.3-17.7); LYMPHOCYTES # (AUTO) 1.3 X 10^3 (1.0-4.0); LYMPHOCYTES % (AUTO) 14 % (12-44); MEAN CORPUSCULAR HEMOGLOBIN 30 PG (25-34); MEAN CORPUSCULAR HGB CONC 36 G/DL (32-36); MEAN CORPUSCULAR VOLUME 83 FL (80-99); MEAN PLATELET VOLUME 10.1 FL (7.4-10.4); MONOCYTES # (AUTO) 0.7 X 10^3 (0.0-1.0); MONOCYTES % (AUTO) 8 % (0-12); NEUTROPHILS # (AUTO) 7.4 X 10^3 (1.8-7.8); NEUTROPHILS % (AUTO) 78 % (42-75); PLATELET COUNT 171 10^3/uL (130-400); RED CELL DISTRIBUTION WIDTH 14.8 % (10.0-14.5); WHITE BLOOD COUNT 9.5 10^3/uL (4.3-11.0)
[2018-11-07 04:31] LABS: ABG BASE EXCESS -4.2 MMOL/L (-2.5-2.5); ABG OXYGEN SATURATION 97 % (94-100); ABG PCO2 34 MMHG (35-45); ABG PH 7.39 (7.37-7.43); ABG PO2 79 MMHG (79-93)
[2018-11-07 04:32] LABS: ALLENS TEST YES-POS; INSPIRED O2 2L; PATIENT TEMP 98.2; VENTILATOR NO
--- NOTE | 2018-11-07 04:42 | ED Respiratory ---
General Chief Complaint: Respiratory Problems Stated Complaint: IN PAIN Nursing Triage Note: PATIENT VERBALIZED WEAKNESS AND SHORTNESS OF BREATH SINCE YESTERDAY EVENING. PT STATES SHORTNESS OF BREATH WORSE THAN NORMAL Source: patient, old records History of Present Illness Date Seen by Provider: Nov 07, 2018 Time Seen by Provider: 04:06 Initial Comments PT ARRIVES VIA POV FROM HOME C/O SHORTNESS OF BREATH SINCE YESTERDAY AFTERNOON C/O GENERALIZED WEAKNESS PT HAS CHRONIC SHORTNESS OF BREATH, BUT IS WORSE THAN NORMAL. PT HAS CPAP AT HOME, AND HAS BEEN PRESCRIBED O2 / NC, BUT DOES NOT USEIT DENIES CHEST PAIN HAS CHRONIC LEG SWELLING, BUT IS NO WORSE THAN NORMAL HAS BEEN VERY CLAMMY/SWEATY NO NAUSEA PT IS INSULIN DIABETIC BUT HAS NOT CHECKED HIS BLOOD SUGAR RECENTLY, DID TAKE NIGHT TIME INSULIN PT HAS A CHRONIC DIABETIC FOOT ULCER TO RIGHT GREAT TOE PT WITH EXTENSIVE ASVD--HAS HAD CABG TWICE-FIRST TIME WAS 4 VESSELS AND SECOND ONE WAS 1 VESSEL, BUT WAS DONE AT [facility] DUE TO VERY HIGH RISK. ADDITIONALLY, PT HAS HAD 8 STENTS, AND LAST CABG WAS TO BYPASS 3 PRIOR STENTS PT ALSO HAS EXTENSIVE CAROTID AND CEREBROVASCULAR DISEASE. STATES ONE OF HIS CAROTID ARTERIES IS COMPLETELY BLOCKED AND HIS "EMMONAK OF LIFE" IN HIS BRAIN DOESN'T HAVE MUCH CIRCULATION, SO HE HAS BEEN STARTED ON WARFARIN. PCP: DR. KAHN MILLWRIGHT SUPERVISOR: DR. HERNANDEZ Allergies and Home Medications Allergies Coded Allergies: niacin (Unverified Allergy, Unknown, 06/26/10) rosuvastatin (Verified Allergy, Unknown, 04/20/07) fenofibrate (Unverified Adverse Reaction, Unknown, LIVER PROBLEMS, 01/23/15 ) Home Medications Acetaminophen 500 Mg Tablet, 1,000 MG PO Q4H PRN for PAIN-MILD, (Reported) Allopurinol 100 Mg Tablet, 100 MG PO DAILY, (Reported) Amitriptyline HCl 25 Mg Tablet, 25 MG PO HS, (Reported) Amlodipine Besylate 10 Mg Tablet, 10 MG PO DAILY, (Reported) Ascorbic Acid 250 Mg Tablet, 500 MG PO BID, (Reported) Aspirin 81 Mg Tablet.dr, 81 MG PO DAILY, (Reported) Calcium Carbonate/Vitamin D3 1 Each Tablet, 1 TAB PO DAILY, (Reported) Carvedilol 25 Mg Tablet, 25 MG PO BID, (Reported) Cholecalciferol (Vitamin D3) 1,000 Unit Capsule, 1,000 UNIT PO BID, (Reported) Clopidogrel Bisulfate 75 Mg Tablet, 75 MG PO DAILY, (Reported) Docusate Sodium 100 Mg Capsule, 100 MG PO BID, (Reported) Finasteride 5 Mg Tablet, 5 MG PO HS, (Reported) Folic Acid 1 Mg Tablet, 1 MG PO BID, (Reported) Gemfibrozil 600 Mg Tablet, 600 MG PO DAILY, (Reported) Insulin Aspart 100 Unit/1 Ml Susp, 15 UNITS SC AC, (Reported) Insulin Determir 1,000 Units/10 Ml Soln, 67 UNITS SC BID, (Reported) Magnesium Hydroxide 400 Mg/5 Ml Oral.susp, 30 ML PO DAILY PRN for CONSTIPATION- 7TH LINE, (Reported) Magnesium Oxide 400 Mg Tablet, 400 MG PO DAILY, (Reported) Meclizine HCl 12.5 Mg Tablet, 25 MG PO Q6H PRN for VERTIGO, (Reported) Naproxen Sodium 220 Mg Capsule, 440 MG PO Q12H PRN for PAIN-MILD, (Reported) Nitroglycerin 0.4 Mg Tab.subl, 0.4 MG SL DAILY PRN for CHEST PAIN, (Reported) [place]-3/Dha/Epa/Fish Oil 1 Each Capsule, 1,000 MG PO BID, (Reported) Ondansetron 8 Mg Tab.rapdis, 8 MG PO Q6H PRN for NAUSEA/VOMITING-1ST LINE, ( Reported) Tamsulosin HCl 0.4 Mg Cap.er.24h, 0.4 MG PO HS, (Reported) Valsartan 320 Mg Tablet, 320 MG PO HS, (Reported) Venlafaxine HCl 150 Mg Cap.er.24h, 150 MG PO DAILY, (Reported) Vitamin E Acetate 400 Unit Capsule, 800 UNIT PO DAILY, (Reported) Patient Home Medication List Home Medication List Reviewed: Yes Review of Systems Review of Systems Constitutional: diaphoresis EENTM: no symptoms reported Respiratory: see HPI; No cough; dyspnea on exertion, orthopnea, short of breath Cardiovascular: No chest pain; edema; No palpitations, No syncope; vascular heart diseas Gastrointestinal: see HPI; No abdominal pain; nausea, vomiting Musculoskeletal: see HPI Skin: see HPI Psychiatric/Neurological: Pre-Existing Deficit (PERIPHERAL NEUROPATHY IN FEET) Hematologic/Lymphatic: Anemia Past Seluvlw-Gjrvdd-Bfhpkb Hx Patient Social History Alcohol Use: Past History Recreational Drug Use: No Smoking Status: Former Smoker (1 PPD, QUIT 2005) Former Smoker, Quit: Jul 07, 2006 2nd Hand Smoke Exposure: No Recent Foreign Travel: No Contact w/Someone Who Travel: No Recent Infectious Disease Expo: No Recent Hopitalizations: Yes Immunizations Up To Date Tetanus Booster (TDap): Less than 5yrs PED Vaccines UTD: No Seasonal Allergies Seasonal Allergies: No Past Medical History Surgeries: Yes (4 VESSEL CABG 2005; CARDIAC STENTS X 8; LEFT KNEE SCOPE) Cardiac, CABG, Coronary Stent, Orthopedic Respiratory: Yes (CPAP) Sleep Apnea, COPD Currently Using CPAP: Yes Currently Using BIPAP: No Cardiac: Yes (CABG TWICE--4 VESSEL, THEN LATER 1 VESSEL CABG; 8 STENTS; DIFFUSE ASVD, INCLUDING CAROTID AND CEREBROVASCULAR DISEASE. ) Chronic Edema/Swelling, Coronary Artery Disease, Heart Attack, High Cholesterol , Hypertension, Syncope Neurological: Yes (3 PINCHED NERVES ON NECK ON LEFT SIDE; PERIPHERAL NEUROPATHY ) Neuropathy, Vertigo Reproductive Disorders: No Genitourinary: No Gastrointestinal: Yes Gall Bladder Disease Musculoskeletal: Yes (CHRONIC NECK PAIN ; LEFT KNEE SCOPE) Degenerate Disk Disease, Arthritis, Chronic Back Pain Endocrine: Yes (INSULIN + PILLS; MORBID OBESITY) Diabetes, Insulin dep HEENT: No Loss of Vision: Right Cancer: No Psychosocial: No Integumentary: Yes (CHRONIC DIABETIC FOOT ULCER RIGHT GREAT TOE) Blood Disorders: No Family Medical History Cardiovascular disease 19 FATHER, Onset:Unknown FH: breast cancer G8 SISTER, Onset:50's - 60 FH: ovarian cancer 19 MOTHER, Onset:40's - 50 No Family History of: Cancer of mouth Physical Exam Vital Signs - First Documented 11/07/18 11/07/18 04:05 04:10 Temp 98.2 Pulse 84 Resp 24 B/P (MAP) 103/85 (91) Pulse Ox 88 O2 Delivery Room Air O2 Flow Rate 2.00 Capillary Refill : Less Than 3 Seconds Height: 6'0.00" Weight: 335lbs. 0.4oz. [id number]; 45.8 BMI Method:Stated General Appearance: moderate distress, obese, other (MODERATE DYSPNEA, ALSO LETHARGIC) Neck: normal inspection Respiratory: respiratory distress, decreased breath sounds (IN BASES), accessory muscle use; No rales, No rhonchi, No wheezing Cardiovascular: regular rate, rhythm, extra beats (FREQUENT ECTOPY C/W PAC'S ON MONITOR) Gastrointestinal: non tender, other (OBESE. UNABLE TO DETERMINE IF ORGANOMEGALY IS PRESENT DUE TO BODY HABITUS) Extremities: normal capillary refill, pedal edema (1+ EDEMA BILATERALLY WITH CHRONIC VENOUS STASIS CHANGES BILATERAL LOWER LEGS. ), other (RIGHT GREAT TOE WITH NECROSIS, SUBQ PURULENCE/BLISTERING WITH SWELLING AND LOCAL ERYTHEMA AND INDURATION. NO DRAINAGE. NO STREAKS. ) Neurologic/Psychiatric: alert, oriented x 3, other (DECREASED SENSATION TO FEET ) Skin: cool, diaphoresis, damp, pallor, other (DIFFUSE RASH WITH APPEARANCE OF TINEA VERSICOLOR TO TRUNK AND UPPER ARMS. ) Focused Exam Lactate Level 11/07/18 04:05: Lactic Acid Level 1.45 Lactic Acid Level Laboratory Tests Test 11/07/18 04:05 Lactic Acid Level 1.45 MMOL/L (0.50-2.00) Progress/Results/Core Measures Suspected Sepsis Recent Fever Within 48 Hours: No Infection Criteria Present: None New/Unexplained Altered Menta: No Sepsis Screen: No Definite Risk SIRS Temperature:98.2 Pulse: 84 Respiratory Rate: 24 Laboratory Tests 11/07/18 04:05: White Blood Count 9.5 Blood Pressure 103 /85 Mean: 91 11/07/18 04:05: Lactic Acid Level 1.45 Laboratory Tests 11/07/18 04:05: Creatinine 1.60H, INR Comment 1.0, Platelet Count 171, Total Bilirubin 1.0 Results/Orders Lab Results Laboratory Tests Test 11/07/18 04:05 11/07/18 04:12 11/07/18 04:22 11/07/18 05:25 Range/Units White Blood Count 9.5 4.3-11.0 10^3/uL Red Blood Count 4.66 4.35-5.85 10^6/uL Hemoglobin 13.8 13.3-17.7 G/DL Hematocrit 39 L 40-54 % Mean Corpuscular Volume 83 80-99 FL Mean Corpuscular Hemoglobin 30 25-34 PG Mean Corpuscular Hemoglobin Concent 36 32-36 G/DL Red Cell Distribution Width 14.8 H 10.0-14.5 % Platelet Count 171 130-400 10^3/uL Mean Platelet Volume 10.1 7.4-10.4 FL Neutrophils (%) (Auto) 78 H 42-75 % Lymphocytes (%) (Auto) 14 12-44 % Monocytes (%) (Auto) 8 0-12 % Eosinophils (%) (Auto) 1 0-10 % Basophils (%) (Auto) 0 0-10 % Neutrophils # (Auto) 7.4 1.8-7.8 X 10^3 Lymphocytes # (Auto) 1.3 1.0-4.0 X 10^3 Monocytes # (Auto) 0.7 0.0-1.0 X 10^3 Eosinophils # (Auto) 0.1 0.0-0.3 10^3/uL Basophils # (Auto) 0.0 0.0-0.1 10^3/uL Prothrombin Time 13.0 12.2-14.7 SEC INR Comment 1.0 0.8-1.4 Activated Partial Thromboplast Time 30 24-35 SEC Sodium Level 131 L 135-145 MMOL/L Potassium Level 4.4 3.6-5.0 MMOL/L Chloride Level 96 L 98-107 MMOL/L Carbon Dioxide Level 17 L 21-32 MMOL/L Anion Gap 18 H 5-14 MMOL/L Blood Urea Nitrogen 18 7-18 MG/DL Creatinine 1.60 H 0.60-1.30 MG/DL Estimat Glomerular Filtration Rate 43 BUN/Creatinine Ratio 11 Glucose Level 466 *H 70-105 MG/DL Lactic Acid Level 1.45 0.50-2.00 MMOL/L Calcium Level 9.8 8.5-10.1 MG/DL Corrected Calcium 10.0 8.5-10.1 MG/DL Magnesium Level 2.3 1.8-2.4 MG/DL Total Bilirubin 1.0 0.1-1.0 MG/DL Aspartate Amino Transf (AST/SGOT) 20 5-34 U/L Alanine Aminotransferase (ALT/SGPT) 26 0-55 U/L Alkaline Phosphatase 106 40-136 U/L Total Creatine Kinase 56 30-200 U/L Creatine Kinase MB 1.6 <6.6 NG/ML Myoglobin 89.7 10.0-92.0 NG/ML Troponin I < 0.028 <0.028 NG/ML B-Type Natriuretic Peptide 80.1 <100.0 PG/ML Total Protein 7.4 6.4-8.2 GM/DL Albumin 3.8 3.2-4.5 GM/DL Amylase Level 17 L 25-125 U/L Lipase 35 8-78 U/L Glucometer 428 *H 70-110 MG/DL Blood Gas Puncture Site RIGHT RADIAL Blood Gas Patient Temperature 98.2 Arterial Blood pH 7.39 7.37-7.43 Arterial Blood Partial Pressure CO2 34 L 35-45 MMHG Arterial Blood Partial Pressure O2 79 79-93 MMHG Arterial Blood HCO3 20 L 23-27 MMOL/L Arterial Blood Total CO2 21.0 21.0-31.0 MMOL/L Arterial Blood Oxygen Saturation 97 94-100 % Arterial Blood Base Excess -4.2 L -2.5-2.5 MMOL/L Will Test YES-POS Blood Gas Ventilator Setting NO Blood Gas Inspired Oxygen 2L Urine Color YELLOW Urine Clarity CLEAR Urine pH 5 5-9 Urine Specific [place] 1.015 L 1.016-1.022 Urine Protein 3+ H NEGATIVE Urine Glucose (UA) 4+ H NEGATIVE Urine Ketones 4+ H NEGATIVE Urine Nitrite NEGATIVE NEGATIVE Urine Bilirubin NEGATIVE NEGATIVE Urine Urobilinogen NORMAL NORMAL MG/DL Urine Leukocyte Esterase NEGATIVE NEGATIVE Urine RBC (Auto) 2+ H NEGATIVE Urine RBC 0-2 /HPF Urine WBC NONE /HPF Urine Squamous Epithelial Cells 2-5 /HPF Urine Crystals NONE /LPF Urine Bacteria NEGATIVE /HPF Urine Casts NONE /LPF Urine Mucus NEGATIVE /LPF Urine Culture Indicated NO Test 11/07/18 05:42 Range/Units Glucometer 323 H 70-110 MG/DL My Orders Orders - MISAEL THORNTON DO Cbc With Automated Diff (11/07/18 04:12) Magnesium (11/07/18 04:12) Chest 1 View, Ap/Pa Only (11/07/18 04:12) Ekg Tracing (11/07/18 04:12) Cardiac Profile 1 (11/07/18 04:12) Comprehensive Metabolic Panel (11/07/18 04:12) Myoglobin Serum (11/07/18 04:12) Protime With Inr (11/07/18 04:12) Partial Thromboplastin Time (11/07/18 04:12) O2 (11/07/18 04:12) Monitor-Rhythm Ecg Trace Only (11/07/18 04:12) Lipid Panel (11/08/18 06:00) Saline Lock/Iv-Start (11/07/18 04:12) Creatine Kinase (11/07/18 04:12) Creatine Kinase Mb (11/07/18 04:12) Lipase (11/07/18 04:12) Amylase (11/07/18 04:12) BNP (11/07/18 04:12) Aspirin Chewable Tablet (Baby Aspirin Ch (11/07/18 04:15) Saline Lock/Iv-Start (11/07/18 04:12) Ns Iv 1000 Ml (Sodium Chloride 0.9%) (11/07/18 04:12) Insulin (Regular) Human (Humulin R (Per (11/07/18 04:15) Arterial Blood Gas (11/07/18 04:12) Lactic Acid Analyzer (11/07/18 04:12) Ua Culture If Indicated (11/07/18 04:12) Blood Culture (11/07/18 04:12) Arterial Blood Draw (11/07/18 04:22) Accucheck Stat ONCE (11/07/18 05:42) Saline Lock/Iv-Start (11/07/18 06:14) Ns Iv 1000 Ml (Sodium Chloride 0.9%) (11/07/18 06:14) Insulin (Regular) Human (Humulin R (Per (11/07/18 06:15) Medications Given in ED Current Medications Medications Dose Ordered Sig/Perico Route Start Time Stop Time Status Last Admin Dose Admin Aspirin 324 mg ONCE ONCE PO 11/07/18 04:15 11/07/18 04:16 DC 11/07/18 04:20 324 MG Insulin Human Regular 25 unit ONCE ONCE IV 11/07/18 04:15 11/07/18 04:16 DC 11/07/18 04:20 25 UNIT Insulin Human Regular 25 unit ONCE ONCE SC 11/07/18 06:15 11/07/18 06:16 DC 11/07/18 06:20 25 UNIT Sodium Chloride 1,000 ml @ 0 mls/hr Q0M ONCE IV 11/07/18 06:14 11/07/18 06:15 DC 11/07/18 06:20 1,000 MLS/HR Vital Signs/I&O 11/07/18 11/07/18 04:05 04:10 Temp 98.2 Pulse 84 Resp 24 B/P (MAP) 103/85 (91) Pulse Ox 88 97 O2 Delivery Room Air Room Air O2 Flow Rate 2.00 Capillary Refill : Less Than 3 Seconds Blood Pressure Mean: 91 Progress Note : Progress Note O2 SATS 85-87% ON ROOM AIR AND PT MODERATELY DYSPNEIC, PALE AND DIAPHORETIC ON ARRIVAL ALL SYMPTOMS RESOLVED AFTER PT PLACED ON O2--INITIALLY PLACED ON 6L/NC, THEN WEANED DOWN TO 4L/NC AND O2 SATS REMAINED STABLE IN MID 90'S. COLOR IMPROVED, PT IS NO LONGER DIAPHORETIC AND RESPIRATIONS ARE EVEN AND UNLABORED. NO DETERIORATION IN PT'S CONDITION PT RESTED FOR REMAINDER OF ER STAY ECG Initial ECG Impression Date: Nov 07, 2018 Initial ECG Impression Time: 04:06 Initial ECG Rate: 91 Initial ECG Rhythm: Normal Sinus (PAC'S ; LBBB) Initial ECG Comparisson: Changed (FROM 12/2017) Diagnostic Imaging Comments CXR--POOR EFFORT, BIBASILAR ATELECTASIS ? --PENDING RADIOLOGIST REVIEW Reviewed: Reviewed by Me Departure Communication (Admissions) THERE ARE CURRENTLY NO BEDS AVAILABLE AT THIS FACILITY 0504--CALLED [facility], HAVE BED 0507--SPOKE WITH DR. HERNANDEZ, ACCEPTS PT FOR ADMIT/TRANSFER. HE IS PT'S PERSONAL MILLWRIGHT SUPERVISOR WELL AND IS VERY FAMILIAR WITH PT. 0530--[facility] CALLED, WILL HAVE BED AVAILABLE AFTER 0700 0740--EMS HERE FOR TRANSPORT Impression Primary Impression: Acute respiratory distress Additional Impressions: Hypoxia SEVERE ASVD Diabetes mellitus, insulin dependent (IDDM), uncontrolled Renal insufficiency EKG CHANGES OF LBBB Disposition: 02 XFER SHT-TRM HOSP Condition: Improved Transfer Transfer Facility: [facility] Method of Transfer: EMS Departure-Patient Inst. Referrals: GIL KAHN DO (PCP/Family) Primary Care Physician MISAEL THORNTON DO Nov 07, 2018 04:42
[2018-11-07 04:45] LABS: ALANINE AMINOTRANSFERASE 26 U/L (0-55); ALBUMIN 3.8 GM/DL (3.2-4.5); ALKALINE PHOSPHATASE 106 U/L (40-136); AMYLASE 17 U/L (25-125); BUN/CREATININE RATIO 11; CALCIUM 9.8 MG/DL (8.5-10.1); CARBON DIOXIDE 17 MMOL/L (21-32); CHLORIDE 96 MMOL/L (98-107); CREATINE KINASE 56 U/L (30-200); GFR ESTIMATED 43; LIPASE 35 U/L (8-78); MAGNESIUM 2.3 MG/DL (1.8-2.4); POTASSIUM 4.4 MMOL/L (3.6-5.0); SODIUM 131 MMOL/L (135-145); TOTAL PROTEIN 7.4 GM/DL (6.4-8.2)
[2018-11-07 04:48] LABS: GLUCOSE 466 MG/DL (70-105)
[2018-11-07 04:53] LABS: CREATINE KINASE MB 1.6 NG/ML (<6.6)
[2018-11-07 05:37] LABS: BILIRUBIN,URINE NEGATIVE (NEGATIVE); CLARITY,URINE CLEAR; COLOR,URINE YELLOW; GLUCOSE, URINE (UA) 4+ (NEGATIVE); KETONES,URINE 4+ (NEGATIVE); LEUKOCYTE ESTERASE ,URINE NEGATIVE (NEGATIVE); NITRITE,URINE NEGATIVE (NEGATIVE); PH,URINE 5 (5-9); PROTEIN,URINE 3+ (NEGATIVE); UROBILINOGEN,URINE NORMAL (NORMAL)
[2018-11-07 05:45] LABS: BACTERIA,URINE NEGATIVE /HPF; RBC,URINE 0-2 /HPF
--- NOTE | 2018-11-07 06:00 | NUR ---
PT REPORT TO RN AT [facility].
[2018-11-07] MEDS ORDERED: NS IV 1000 ML 1,000 ML IV ONE (06:14)
[2018-11-07] MEDS ORDERED: inSUlin (REGULAR) HUMAN 1 UNIT/0.01 ML (CHARGE PER UNIT) SC ONE (06:15)
--- NOTE | 2018-11-07 06:50 | Diagnostic Imaging Report ---
EXAMINATION: Chest radiograph, portable AP view. DATE: November 07, 2018 at 0424 hours. INDICATION: 68-year-old male, shortness of breath. Chest pain. COMPARISON: April 05, 2018. FINDINGS: There are median sternotomy wires. Stable overall appearance of the cardiomediastinal silhouette. There is no identified pneumothorax. There is no large pleural effusion. Lung volumes are somewhat low. There is no identified interval focal airspace consolidation. IMPRESSION: 1. Somewhat low lung volumes without radiographically apparent interval acute cardiopulmonary abnormality. Dictated by: Dictated on workstation # [id number]
[2018-11-07 07:45] VITALS: BP 143/85
== END 2018-11-07 07:45 | disposition short-term general hospital (02) ==
LOC: EDUNIT# 04:05 → ER 04:09
DX: R06.03 Acute respiratory distress (principal); R09.02 Hypoxemia; N28.9 Disorder of kidney and ureter, unspecified; I44.7 Left bundle-branch block, unspecified; R94.31 Abnormal electrocardiogram [ECG] [EKG]; I25.10 Atherosclerotic heart disease of native coronary artery without angina pectoris; G47.30 Sleep apnea, unspecified; J44.9 Chronic obstructive pulmonary disease, unspecified; I25.2 Old myocardial infarction; E78.00 Pure hypercholesterolemia, unspecified; I10 Essential (primary) hypertension; E11.40 Type 2 diabetes mellitus with diabetic neuropathy, unspecified; E66.01 Morbid (severe) obesity due to excess calories; E11.621 Type 2 diabetes mellitus with foot ulcer; L97.519 Non-pressure chronic ulcer of other part of right foot with unspecified severity; Z79.4 Long term (current) use of insulin; Z88.8 Allergy status to other drugs, medicaments and biological substances; Z79.82 Long term (current) use of aspirin; Z82.49 Family history of ischemic heart disease and other diseases of the circulatory system; Z87.19 Personal history of other diseases of the digestive system; Z79.02 Long term (current) use of antithrombotics/antiplatelets; Z80.3 Family history of malignant neoplasm of breast; Z80.41 Family history of malignant neoplasm of ovary; Z87.891 Personal history of nicotine dependence; Z95.5 Presence of coronary angioplasty implant and graft; Z95.1 Presence of aortocoronary bypass graft
CPT/HCPCS: 36415; 36600; 71045; 80053; 81000; 82150; 82550; 82553; 82805; 82962; 83605; 83690; 83735; 83874; 83880; 84484; 85025; 85610; 85730; 87040; 93005; 93041; 99291

== ENCOUNTER 2018-12-16 14:20 | Inpatient (IN) | payer MEDICARE ==
[~2018-12-16] VITALS: Ht 182.9 cm; Wt 146.1 kg
[2018-12-16] MEDS ORDERED: VANCOMYCIN INJECTION 1,000 MG in NS (IVPB) 250 ML IV SCH (15:45)
[2018-12-16] MEDS ORDERED: NS IV 1000 ML 1,000 ML IV SCH ×3 (15:45→18:45)
[2018-12-16] MEDS ORDERED: PIPERACILLIN/TAZOBACTAM (BULK) 4.5 GM in NS (IVPB) 100 ML IV ONE (15:45)
--- OUTSIDE RECORDS SUMMARY | 2018-12-16 15:57 | XMS REPORT | Clinical Summary ---
Author Author [facility] Organization [facility] Address Unknown Phone Unavailable Care Team Providers Care Braille Duplicating Machine Operator Name Role Phone Kiel Mayer MD Unavailable Unavailable Chayo Strong APRN Unavailable Unavailable John Dumont MD Unavailable Valerie Cole PA-C Unavailable Irene Fontenot Unavailable Unavailable Carol Alford Unavailable Tyler Bello MD PCP Source Comments Some departments are not documenting in the electronic medical record. If you d o not see the information that you expected, contact Release of Information in [facility] Information Management department at [phone] for further assistan ce in locating additional records.[facility] Allergies Comments Active Allergy Reactions Severity Noted Date Rosuvastatin UNKNOWN 05/13/2011 Niacin UNKNOWN 05/13/2011 Fenofibrate Micronized UNKNOWN 05/13/2011 Medications End Date Status Medication Sig Dispensed Refills Start Date Active valsartan (DIOVAN) 320 mg Take 320 mg 0 PO tablet by mouth daily. Active clopidogrel (PLAVIX) 75 Take 75 mg by 0 mg PO mouth daily. Active carvedilol (COREG) 12.5 Take 12.5 mg 0 mg PO tablet by mouth twice daily with meals. Active venlafaxine XR (EFFEXOR Take 150 mg 0 XR) 150 mg PO capsule by mouth daily. Active gabapentin (NEURONTIN) Take 300 mg 0 300 mg PO capsule by mouth twice daily. Active insulin lispro(+) Inject 25 0 (HUMALOG) 100 unit/mL SC Units into injection area(s) as directed three times daily with meals. With sliding scale. Up to 100 units per day. Active blood sugar diagnostic 1 Strip by 0 (ONE TOUCH TEST) MISC Test route test strip before meals and at bedtime. Active aspirin EC 81 mg tablet Take 81 mg by 0 mouth daily. Active ASCORBATE CALCIUM Take 2,000 mg 0 (VITAMIN C PO) by mouth daily. Active INSULIN Inject 90 0 GLARGINE,HUM.REC.ANLOG Units into (LANTUS SC) area(s) as directed at bedtime daily. Active INSULIN LISPRO (HUMALOG Inject into 0 SC) area(s) as directed. 40 am + 25 noon + 40 pm and sliding scale Active DOCOSAHEXANOIC ACID/EPA Take 8,000 mg 0 (FISH OIL PO) by mouth daily. Active MAGNESIUM PO Take 400 mg 0 by mouth daily. Active coQ10 (ubiquinol) 100 mg Take by 0 cap mouth daily. Active atorvastatin (LIPITOR) 40 Take 40 mg by 0 mg tablet mouth every 7 days. And titrated as tolerated until 40 mg/qd Active allopurinol (ZYLOPRIM) Take 1 Tab by 90 Tab 3 100 mg tablet mouth daily. 3 Active CHLORTHALIDONE PO Take by 0 mouth daily. Active gemfibrozil (LOPID) 600 Take 600 mg 0 mg tablet by mouth daily. Active isosorbide mononitrate SR Take 60 mg by 0 (IMDUR) 60 mg tablet mouth every morning. Active CALCIUM CARBONATE/VITAMIN Take by 0 D3 (CALCIUM + D PO) mouth daily. Active CALCIUM CARBONATE/VITAMIN Take by 0 D3 (VITAMIN D-3 PO) mouth daily. Active ibuprofen (MOTRIN) 400 mg Take 400 mg 0 tablet by mouth every 6 hours as needed. Active Problems Problem Noted Date Peripheral vertigo, unspecified 12/09/2012 Asymmetric SNHL (sensorineural hearing loss) 12/09/2012 Central vestibular vertigo 12/09/2012 Diabetes mellitus type 2 with complications, uncontrolled 07/15/2011 Overview: Diagnosed around 2004, but thinks he had diabetes as early as 1999. Morbidly obese 07/15/2011 CAD (coronary artery disease) 07/15/2011 Overview: [...] Grandmother Sister Alive Son Alive Social History Date Tobacco Use Types Packs/Day Years Used Quit: 07/05/2006 Former Smoker Cigarettes 36 Smokeless Tobacco: Former Chew Quit: 08/02/2002 User Tobacco Cessation: Counseling Given: No Comments: used 'chew' for 25 years Alcohol Use Drinks/Week oz/Week Comments No no longer drinks Sex Assigned at Date Recorded Not on file Industry Job Start Date Occupation Not on file Not on file Not on file Travel End Travel History Travel Start No recent travel history available. Last Filed Vital Signs Time Taken Vital Sign Reading 12/27/2012 2:35 PM CDT Blood Pressure 133/79 12/27/2012 2:35 PM CDT Pulse 71 - Temperature - 05/13/2011 10:29 AM CDT Respiratory Rate 19 - Oxygen Saturation - - Inhaled Oxygen - Concentration 12/27/2012 2:35 PM CDT Weight 160 kg (352 lb 12.8 oz) 12/27/2012 2:35 PM CDT Height 182.9 cm (6') 12/27/2012 2:35 PM CDT Body Mass Index 47.85 Plan of Treatment Health Maintenance Due Date Last Done Comments HEPATITIS C SCREENING 1952 PHYSICAL (COMPREHENSIVE) 10/04/1959 EXAM DILATED EYE EXAM 1970 DTAP/TDAP VACCINES (1 - 1970 Tdap) FOOT EXAM 1970 MICROALBUMIN 1970 COLORECTAL CANCER 2002 SCREENING SHINGLES RECOMBINANT 2002 VACCINE (1 of 2) HBA1C 04/12/2013 10/10/2012, 09/15/2011, 07/15/2011, Additional history exists ABDOMINAL AORTIC ANEURYSM 2017 SCREENING PNEUMONIA (PCV13/PPSV23) 2017 VACCINES (1 of 2 - PCV13) INFLUENZA VACCINE 05/02/2019 05/13/2011 (Declined) Results Not on filefrom Last 3 Months
[2018-12-16 15:58] LABS: BASOPHILS % (AUTO) 0 % (0-10); EOSINOPHILS # (AUTO) 0.1 10^3/uL (0.0-0.3); EOSINOPHILS % (AUTO) 1 % (0-10); HEMATOCRIT 26 % (40-54); HEMOGLOBIN 9.1 G/DL (13.3-17.7); LYMPHOCYTES % (AUTO) 10 % (12-44); MEAN CORPUSCULAR HEMOGLOBIN 30 PG (25-34); MEAN CORPUSCULAR HGB CONC 35 G/DL (32-36); MEAN CORPUSCULAR VOLUME 86 FL (80-99); MEAN PLATELET VOLUME 10.4 FL (7.4-10.4); MONOCYTES # (AUTO) 0.9 X 10^3 (0.0-1.0); MONOCYTES % (AUTO) 10 % (0-12); NEUTROPHILS # (AUTO) 7.7 X 10^3 (1.8-7.8); NEUTROPHILS % (AUTO) 79 % (42-75); PLATELET COUNT 151 10^3/uL (130-400); WHITE BLOOD COUNT 9.7 10^3/uL (4.3-11.0)
--- NOTE | 2018-12-16 16:00 | ED General ---
General Chief Complaint: Fever-Adult/Adol Stated Complaint: FEVER;TOE WOUND;VOMITING Nursing Triage Note: Pt to ED with sister. Pt is from [facility]. Sister reports pt was sent to ED by Dr. Pelletier. Pt reports having R big toe amputated approximately 4 weeks ago. Pt was put on AB on Wednesday. Sister reports nurse from [facility] reported purulent drainage from toe today. Pt reports fever of 100.3 at home. Pt has been vomiting for three days. Symptoms have worsened today. Nursing Sepsis Screen: No Definite Risk Source of Information: Patient, Family Exam Limitations: No Limitations History of Present Illness Date Seen by Provider: December 16, 2018 Time Seen by Provider: 15:57 Initial Comments 68-year-old white male presents with a complaint of cellulitis of the right foot and leg. Patient had the right toe amputated recently. He has been on an oral antibiotic unsuccessfully. He has developed increasing redness and swelling and pain from his right leg Allergies and Home Medications Allergies Coded Allergies: niacin (Unverified Allergy, Unknown, 06/26/10) rosuvastatin (Verified Allergy, Unknown, 04/20/07) fenofibrate (Unverified Adverse Reaction, Unknown, LIVER PROBLEMS, 01/23/15) Home Medications Acetaminophen 500 Mg Tablet, 1,000 MG PO Q4H PRN for PAIN-MILD, (Reported) Allopurinol 100 Mg Tablet, 100 MG PO DAILY, (Reported) Amitriptyline HCl 25 Mg Tablet, 25 MG PO HS, (Reported) Amlodipine Besylate 10 Mg Tablet, 10 MG PO DAILY, (Reported) Ascorbic Acid 250 Mg Tablet, 500 MG PO BID, (Reported) Aspirin 81 Mg Tablet.dr, 81 MG PO DAILY, (Reported) Calcium Carbonate/Vitamin D3 1 Each Tablet, 1 TAB PO DAILY, (Reported) Carvedilol 25 Mg Tablet, 25 MG PO BID, (Reported) Cholecalciferol (Vitamin D3) 1,000 Unit Capsule, 1,000 UNIT PO BID, (Reported) Clopidogrel Bisulfate 75 Mg Tablet, 75 MG PO DAILY, (Reported) Docusate Sodium 100 Mg Capsule, 100 MG PO BID, (Reported) Finasteride 5 Mg Tablet, 5 MG PO HS, (Reported) Folic Acid 1 Mg Tablet, 1 MG PO BID, (Reported) Gemfibrozil 600 Mg Tablet, 600 MG PO DAILY, (Reported) Insulin Aspart 100 Unit/1 Ml Susp, 15 UNITS SC AC, (Reported) Insulin Determir 1,000 Units/10 Ml Soln, 67 UNITS SC BID, (Reported) Magnesium Hydroxide 400 Mg/5 Ml Oral.susp, 30 ML PO DAILY PRN for CONSTIPATION- 7TH LINE, (Reported) Magnesium Oxide 400 Mg Tablet, 400 MG PO DAILY, (Reported) Meclizine HCl 12.5 Mg Tablet, 25 MG PO Q6H PRN for VERTIGO, (Reported) Naproxen Sodium 220 Mg Capsule, 440 MG PO Q12H PRN for PAIN-MILD, (Reported) Nitroglycerin 0.4 Mg Tab.subl, 0.4 MG SL DAILY PRN for CHEST PAIN, (Reported) [place]-3/Dha/Epa/Fish Oil 1 Each Capsule, 1,000 MG PO BID, (Reported) Ondansetron 8 Mg Tab.rapdis, 8 MG PO Q6H PRN for NAUSEA/VOMITING-1ST LINE, (Reported) Tamsulosin HCl 0.4 Mg Cap.er.24h, 0.4 MG PO HS, (Reported) Valsartan 320 Mg Tablet, 320 MG PO HS, (Reported) Venlafaxine HCl 150 Mg Cap.er.24h, 150 MG PO DAILY, (Reported) Vitamin E Acetate 400 Unit Capsule, 800 UNIT PO DAILY, (Reported) Patient Home Medication List Home Medication List Reviewed: Yes Review of Systems Review of Systems Constitutional: fever EENTM: No ear pain Respiratory: No cough Cardiovascular: No chest pain Gastrointestinal: No abdominal pain, No nausea Genitourinary: No dysuria, No frequency Musculoskeletal: No back pain, No joint pain (right foot) Skin: change in color (cellulitis right foot and leg) Psychiatric/Neurological: No Symptoms Reported Hematologic/Lymphatic: No Symptoms Reported Immunological/Allergic: no symptoms reported Past Kwothfr-Ezowzf-[place] Hx Past Med/Social Hx: Reviewed Nursing Past Med/Soc Hx Patient Social History Alcohol Use: Denies Use Recreational Drug Use: No Former Smoker, Quit: Jul 07, 2006 2nd Hand Smoke Exposure: No Recent Foreign Travel: No Contact w/Someone Who Travel: No Recent Infectious Disease Expo: No Recent Hopitalizations: Yes Physical Abuse: No Sexual Abuse: No Mistreated: No Fear: No Immunizations Up To Date Tetanus Booster (TDap): Unknown PED Vaccines UTD: No Seasonal Allergies Seasonal Allergies: No Past Medical History Surgeries: Yes (4 VESSEL CABG 2005; CARDIAC STENTS X 8; LEFT KNEE SCOPE) Cardiac, CABG, Coronary Stent, Orthopedic Respiratory: Yes (CPAP) Sleep Apnea, COPD Currently Using CPAP: Yes Currently Using BIPAP: No Cardiac: Yes Chronic Edema/Swelling, Coronary Artery Disease, Heart Attack, High Cholesterol, Hypertension, Syncope Neurological: Yes (3 PINCHED NERVES ON NECK ON LEFT SIDE; PERIPHERAL NEUROPATHY) Neuropathy, Vertigo Reproductive Disorders: No Genitourinary: No Gastrointestinal: Yes Gall Bladder Disease Musculoskeletal: Yes (CHRONIC NECK PAIN ; LEFT KNEE SCOPE) Degenerate Disk Disease, Arthritis, Chronic Back Pain Endocrine: Yes (INSULIN + PILLS; MORBID OBESITY) Diabetes, Insulin dep HEENT: No Loss of Vision: Right Cancer: No Psychosocial: No Integumentary: Yes (CHRONIC DIABETIC FOOT ULCER RIGHT GREAT TOE) Recent Skin Changes Blood Disorders: No Family Medical History Cardiovascular disease 19 FATHER, Onset:Unknown FH: breast cancer G8 SISTER, Onset:50's - 60 FH: ovarian cancer 19 MOTHER, Onset:40's - 50 No Family History of: Cancer of mouth Physical Exam-Suspected Sepsis Physical Exam Vital Signs Vital Signs - First Documented 12/16/18 14:30 Temp 98.5 Pulse 73 Resp 18 B/P (MAP) 120/71 (87) Pulse Ox 93 O2 Delivery Room Air Capillary Refill : Less Than 3 Seconds Blood Pressure Mean: 87 Height, Weight, BMI Height: 6'0" Weight: 320lbs. 0.4oz. 145.996177mo; 45.8 BMI Method:Stated General Appearance: Mild Distress, Obese Eyes: Bilateral Eye Normal Inspection HEENT: Normal ENT Inspection Neck: Normal Inspection Respiratory: Lungs Clear Cardiovascular: Regular Rate, Rhythm Gastrointestinal: Normal Bowel Sounds, Soft Back: Normal Inspection Extremity: Swelling (there is erythema and swelling of the right foot with diffuse area of erythema over the anterior aspect of the right leg. There is drainage from the great toe amputation which was cultured.) Skin: other (there is cellulitis over the anterior aspect of the right leg with associated erythema to the right foot. The wound repair where the great toe was amputated is swollen and macerated.) Focused Exam Lactate Level 12/16/18 15:50: Lactic Acid Level Laboratory Tests Test 12/16/18 15:50 Progress/Results/Core Measures Suspected Sepsis Recent Fever Within 48 Hours: Yes Infection Criteria Present: Suspected New Infection New/Unexplained Altered Menta: No Sepsis Screen: No Definite Risk SIRS Temperature:98.5 Pulse: 73 Respiratory Rate: 18 Laboratory Tests 12/16/18 15:50: White Blood Count 9.7 Blood Pressure 120 /71 Mean: 87 12/16/18 15:50: Laboratory Tests 12/16/18 15:50: Platelet Count 151 Results/Orders Lab Results Laboratory Tests Test 12/16/18 15:50 Range/Units White Blood Count 9.7 4.3-11.0 10^3/uL Red Blood Count 3.03 L 4.35-5.85 10^6/uL Hemoglobin 9.1 L 13.3-17.7 G/DL Hematocrit 26 L 40-54 % Mean Corpuscular Volume 86 80-99 FL Mean Corpuscular Hemoglobin 30 25-34 PG Mean Corpuscular Hemoglobin Concent 35 32-36 G/DL Red Cell Distribution Width 16.0 H 10.0-14.5 % Platelet Count 151 130-400 10^3/uL Mean Platelet Volume 10.4 7.4-10.4 FL Neutrophils (%) (Auto) 79 H 42-75 % Lymphocytes (%) (Auto) 10 L 12-44 % Monocytes (%) (Auto) 10 0-12 % Eosinophils (%) (Auto) 1 0-10 % Basophils (%) (Auto) 0 0-10 % Neutrophils # (Auto) 7.7 1.8-7.8 X 10^3 Lymphocytes # (Auto) 1.0 1.0-4.0 X 10^3 Monocytes # (Auto) 0.9 0.0-1.0 X 10^3 Eosinophils # (Auto) 0.1 0.0-0.3 10^3/uL Basophils # (Auto) 0.0 0.0-0.1 10^3/uL My Orders Orders - ANEL GARCIA MD Cbc With Automated Diff (12/16/18 15:36) Comprehensive Metabolic Panel (12/16/18 15:36) Blood Culture (12/16/18 15:36) Ua Culture If Indicated (12/16/18 15:36) Foot, Right, 3 View (12/16/18 15:36) Lactic Acid Analyzer (12/16/18 15:36) Ns Iv 1000 Ml (Sodium Chloride 0.9%) (12/16/18 15:45) Piperacillin/Tazobactam (Bulk) (Zosyn In (12/16/18 15:45) Vancomycin Injection (Vancomycin Injecti (12/16/18 15:45) Vital Signs/I&O 12/16/18 14:30 Temp 98.5 Pulse 73 Resp 18 B/P (MAP) 120/71 (87) Pulse Ox 93 O2 Delivery Room Air Capillary Refill : Less Than 3 Seconds Blood Pressure Mean: 87 Progress Note : Time: 16:02 Progress Note Patient has cellulitis with fever suggestive of a systemic infection. Patient received Zosyn and vancomycin IV. Telephone consultation was undertaken with Dr. Horton who is kind enough to admit the patient. Dr. Phillip, who is out of town, will see the patient on Wednesday morning. Departure Communication (Admissions) Time/Spoke to Admitting Phy: 16:03 Dr. Horton Time/Spoke to Consulting Phy: 16:26 Dr. Phillip Impression Primary Impression: Wound infection Disposition: ADMITTED INPATIENT Condition: Improved Admissions Decision to Admit Reason: Admit from ER (General) Decision to Admit/Date: December 16, 2018 Time/Decision to Admit Time: 16:04 Departure-Patient Inst. Referrals: GIL PELLETIER DO (PCP/Family) Primary Care Physician ANEL GARCIA MD December 16, 2018 16:00
[2018-12-16 16:19] LABS: ALBUMIN 3.8 GM/DL (3.2-4.5); BILIRUBIN,TOTAL 0.4 MG/DL (0.1-1.0); CALCIUM 10.1 MG/DL (8.5-10.1); CREATININE SERUM 2.13 MG/DL (0.60-1.30); POTASSIUM 4.3 MMOL/L (3.6-5.0); TOTAL PROTEIN 7.1 GM/DL (6.4-8.2)
[2018-12-16 16:43] LABS: BILIRUBIN,URINE NEGATIVE (NEGATIVE); CLARITY,URINE CLEAR; COLOR,URINE YELLOW; GLUCOSE, URINE (UA) NEGATIVE (NEGATIVE); KETONES,URINE NEGATIVE (NEGATIVE); LEUKOCYTE ESTERASE ,URINE NEGATIVE (NEGATIVE); NITRITE,URINE NEGATIVE (NEGATIVE); PH,URINE 5 (5-9); PROTEIN,URINE NEGATIVE (NEGATIVE); UROBILINOGEN,URINE NORMAL (NORMAL)
--- OUTSIDE RECORDS SUMMARY | 2018-12-16 16:49 | XMS REPORT | Clinical Summary ---
Author Author [facility] Organization [facility] Address Unknown Phone Unavailable Care Team Providers Care Veterans Contact Representative Name Role Phone Kiel Mayer MD Unavailable Unavailable Chayo Strong APRN Unavailable Unavailable John Dumont MD Unavailable Valerie Cole PA-C Unavailable Irene Fontenot Unavailable Unavailable Carol Alford Unavailable Tyler Bello MD PCP Source Comments Some departments are not documenting in the electronic medical record. If you d o not see the information that you expected, contact Release of Information in Critical access hospital Information Management department at [phone] for further assistan ce in locating additional records.[facility] Allergies Comments Active Allergy Reactions Severity [...]
[2018-12-16 16:59] LABS: BACTERIA,URINE NEGATIVE /HPF; SQUAMOUS EPITHELIAL CELL,UR 0-2 /HPF
--- NOTE | 2018-12-16 17:17 | NUR ---
rEPORT GIVNE TO RAQUEL MONTEMAYOR.
[2018-12-16 17:25] VITALS: BP_SYST 132; BP_SYST 95; BP_DIAS 132; BP_DIAS 65
--- NOTE | 2018-12-16 17:27 | NUR ---
ELMO GARCIA admitted to room 433-1, with an admitting diagnosis of CELLUITIS TO THE RIGHT FOOT WITH WOUND INFECTION, on 12/16/18 from ED, accompanied by STAFF AND SISTER.ELMO GARCIA introduced to surroundings, call light, bed controls, phone, TV, temperature control, lights, meal times, smoking policy, visitor policy, side rail policy, bathrooms and showers. Patient Rights given to patient in the handbook. ELMO GARCIA verbalizes understanding that [facility] is not responsible for the loss or damage to any personal effects or valuables that are kept in the patients posession during their hospitalization. The following Patient Care Plans were discussed with the PATIENT: Discharge Planning, PAIN,IMMOBILITY, and KNOWLEDGE. ELMO GARCIA verbalizes understanding of Interdisciplinary Patient Education.
--- NOTE | 2018-12-16 17:34 | Diagnostic Imaging Report ---
INDICATION: Fever. Three views of the right foot were obtained. FINDINGS: There are postsurgical changes of amputation of the right great toe. There is however destructive process involving the distal aspect of the first metatarsal suspect for osteomyelitis. There is no other acute fracture or dislocation. There are degenerative changes in the ankle. IMPRESSION: Lytic destructive process in the distal aspect of the first metatarsal suspect for osteomyelitis. Additionally, there has been previous resection of right great toe. Recommend clinical correlation. Degenerative changes. Dictated by: Dictated on workstation # [id number]
--- NOTE | 2018-12-16 18:12 | NUR ---
CR 2.13; CR CL (USING ADJ WT) ~50; WT 146 KG; VANCO 2 GM IV BOLUS THEN 1750 MG IV Q24H; TROUGH AFTER 2ND DOSE
[2018-12-16] MEDS ORDERED: VANCOMYCIN 1 GM/NS 250 ML IVPB IV NR ×2 (18:15)
[2018-12-16] MEDS ORDERED: MECL-106 PO (18:47)
[2018-12-16] MEDS ORDERED: FERR325T18 PO (18:53)
[2018-12-16] MEDS ORDERED: HYDROcodone/APAP 5 MG/325 MG (LORTAB) TAB PO PRN (19:45)
[2018-12-16] MEDS ORDERED: ONDANSETRON 4 MG/2 ML (SDV) Z0FRAN IVP PRN (19:45)
[2018-12-16] MEDS ORDERED: FURO-124 PO (19:48)
[2018-12-16] MEDS ORDERED: HYDR-3812 PO (19:50)
[2018-12-16] MEDS ORDERED: CHOL20002 PO (19:52)
[2018-12-16] MEDS ORDERED: POTA-51 PO (19:54)
[2018-12-16] MEDS ORDERED: FOLIC ACID PO (19:56)
[2018-12-16] MEDS ORDERED: HYDR-3924 PO (19:59)
[2018-12-16 20:00] LABS: INR 1.3 (0.8-1.4); PROTHROMBIN TIME PATIENT 16.4 SEC (12.2-14.7)
[2018-12-16] MEDS ORDERED: WARF7.5T PO (20:00)
[2018-12-16] MEDS ORDERED: CLIN300C11 PO (20:03)
[2018-12-16] MEDS ORDERED: INSU100V16 SQ (20:09)
[2018-12-16] MEDS ORDERED: inSUlin ASPART (NovoLOG) 1 UNIT/0.01 ML (CHARGE PER UNIT) SC SCH ×2 (20:30→21:00)
[2018-12-16 20:56] VITALS: BP 131/63
[2018-12-16] MEDS: warFARin 7.5 MG (COUMADIN) TAB PO SCH (21:09)
[2018-12-16] MEDS: PIPERACILLIN/TAZO 4.5 GM/NS 100 ML IV SCH ×2 (23:08)
[2018-12-17] VITALS (7 sets, daily range): BP systolic 124–146; BP diastolic 59–73
[2018-12-17] MEDS: NS IV 1000 ML 1,000 ML IV SCH ×3 (03:28→18:21)
[2018-12-17 05:38] LABS: BASOPHILS % (AUTO) 0 % (0-10); EOSINOPHILS # (AUTO) 0.1 10^3/uL (0.0-0.3); EOSINOPHILS % (AUTO) 2 % (0-10); HEMATOCRIT 26 % (40-54); HEMOGLOBIN 8.7 G/DL (13.3-17.7); LYMPHOCYTES # (AUTO) 0.7 X 10^3 (1.0-4.0); LYMPHOCYTES % (AUTO) 9 % (12-44); MEAN CORPUSCULAR HEMOGLOBIN 29 PG (25-34); MEAN CORPUSCULAR HGB CONC 34 G/DL (32-36); MEAN CORPUSCULAR VOLUME 87 FL (80-99); MEAN PLATELET VOLUME 10.6 FL (7.4-10.4); MONOCYTES # (AUTO) 0.8 X 10^3 (0.0-1.0); MONOCYTES % (AUTO) 10 % (0-12); NEUTROPHILS # (AUTO) 6.2 X 10^3 (1.8-7.8); NEUTROPHILS % (AUTO) 79 % (42-75); PLATELET COUNT 153 10^3/uL (130-400); WHITE BLOOD COUNT 7.8 10^3/uL (4.3-11.0)
[2018-12-17 05:57] LABS: ALBUMIN 3.5 GM/DL (3.2-4.5); BILIRUBIN,TOTAL 0.5 MG/DL (0.1-1.0); CALCIUM 9.4 MG/DL (8.5-10.1); CREATININE SERUM 1.97 MG/DL (0.60-1.30); POTASSIUM 4.2 MMOL/L (3.6-5.0); TOTAL PROTEIN 6.9 GM/DL (6.4-8.2)
[2018-12-17] MEDS: PIPERACILLIN/TAZO 4.5 GM/NS 100 ML IV SCH ×6 (06:48→23:10)
[2018-12-17] MEDS: inSUlin ASPART (NovoLOG) 1 UNIT/0.01 ML (CHARGE PER UNIT) SC SCH ×6 (09:32→21:05)
--- NOTE | 2018-12-17 11:00 | NUR ---
BLOOD SUGAR 97, REFUSED LUNCH, 1100 DOSE OF NOVOLOG 16 UNITS HELD, DR PAINTING NOTIFIED
--- NOTE | 2018-12-17 12:00 | NUR ---
ASSISTED TO BATHROOM, UNSTEADY ON FEET, STATES HE HAD BM, DR MARTINS REMOVED STERI STRIPES TO RIGHT FOOT INCISION, AFTER WALKING TO BATHROOM, INCISION HAD SMALL AMOUNT RED BLOOD, INCISION CLEANED WITH NORMAL SALINE, TELFA, 4X4 AND KERLEX APPLIED TO RIGHT FOOT, FOOT ELEVATED ON PILLOW, O2 ON PER NC AT 4 LITERS, C/O HEADACHE.
--- NOTE | 2018-12-17 12:07 | Consultation (Surgery) ---
History of Present Illness History of Present Illness Patient Consulted On(edmar/time) 12/17/18 12:01 Time Seen by Provider: 10:20 History of Present Illness Surgery asked to consult regarding cellulitis and foot pain, suspected sepsis. HPI per ED: Pt to ED with sister. Pt is from [facility]. Sister reports pt was sent to ED by Dr. Pelletier. Pt reports having R big toe amputated approximately 4 weeks ago. Pt was put on AB on Wednesday. Sister reports nurse from [facility] reported purulent drainage from toe today. Pt reports fever of 100.3 at home. Pt has been vomiting for three days. Symptoms have worsened today. 68-year-old white male presents with a complaint of cellulitis of the right foot and leg. Patient had the right toe amputated recently. He has been on an oral antibiotic unsuccessfully. He has developed increasing redness and swelling and pain from his right leg When I spoke to pt this am he states that his foot has not been getting any better since he had amputation 4 weeks ago. Pt states he was at [facility], didn't even know they were going to do it until they came in and told him; he then spent several days there. He states pain is 5 out of 10 and sort of radiates up leg. He thinks the area of foot where toe was is worse or at least not improving. Allergies and Home Medications Allergies Coded Allergies: niacin (Unverified Allergy, Unknown, 06/26/10) rosuvastatin (Verified Allergy, Unknown, 04/20/07) fenofibrate (Unverified Adverse Reaction, Unknown, LIVER PROBLEMS, 01/23/15) Home Medications Acetaminophen 500 Mg Tablet, 1,000 MG PO Q4H PRN for PAIN-MILD, (Reported) Allopurinol 100 Mg Tablet, 100 MG PO DAILY, (Reported) Amitriptyline HCl 25 Mg Tablet, 25 MG PO HS, (Reported) Amlodipine Besylate 10 Mg Tablet, 10 MG PO DAILY, (Reported) Ascorbic Acid 250 Mg Tablet, 500 MG PO BID, (Reported) Aspirin 81 Mg Tablet.dr, 81 MG PO DAILY, (Reported) Calcium Carbonate/Vitamin D3 1 Each Tablet, 1 TAB PO DAILY, (Reported) Carvedilol 25 Mg Tablet, 25 MG PO BID, (Reported) Cholecalciferol (Vitamin D3) 2,000 Unit Capsule, 2,000 UNIT PO BID, (Reported) Clindamycin HCl 300 Mg Capsule, 300 MG PO TID, (Reported) Docusate Sodium 100 Mg Capsule, 100 MG PO DAILY, (Reported) Ferrous Sulfate 325 Mg Tablet, 325 MG PO EVERY OTHER DAY, (Reported) Finasteride 5 Mg Tablet, 5 MG PO HS, (Reported) Furosemide 40 Mg Tablet, 40 MG PO BID, (Reported) Gemfibrozil 600 Mg Tablet, 600 MG PO DAILY, (Reported) Hydralazine HCl 50 Mg Tablet, 50 MG PO TID, (Reported) Hydrocodone/Acetaminophen 1 Each Tablet, 2 TAB PO Q4H, (Reported) Insulin Aspart 100 Unit/1 Ml Susp, 18 UNITS SC BIDAC, (Reported) Insulin Aspart 100 Unit/1 Ml Susp, 25 UNIT SQ UD, (Reported) Insulin Determir 1,000 Units/10 Ml Soln, 67 UNITS SC BID, (Reported) Meclizine HCl 25 Mg Tablet, 25 MG PO BID PRN for NAUSEA/VOMITING-1ST LINE, (Reported) Nitroglycerin 0.4 Mg Tab.subl, 0.4 MG SL DAILY PRN for CHEST PAIN, (Reported) [place]-3/Dha/Epa/Fish Oil 1 Each Capsule, 1,000 MG PO BID, (Reported) Potassium Chloride 20 Meq Tablet.er, 20 MEQ PO DAILY, (Reported) Tamsulosin HCl 0.4 Mg Cap.er.24h, 0.4 MG PO HS, (Reported) Valsartan 320 Mg Tablet, 320 MG PO HS, (Reported) Venlafaxine HCl 150 Mg Cap.er.24h, 150 MG PO DAILY, (Reported) Vitamin E Acetate 400 Unit Capsule, 400 UNIT PO DAILY, (Reported) Warfarin Sodium 7.5 Mg Tablet, 7.5 MG PO HS, (Reported) [Folic Acid] , 400 MCG PO BID, (Reported) Patient Home Medication List Home Medication List Reviewed: Yes Past Ypcefpc-Tmecol-Dqidbx Hx Patient Social History Alcohol Use: Denies Use Recreational Drug Use: No Former Smoker, Quit: Jul 07, 2006 2nd Hand Smoke Exposure: No Recent Foreign Travel: No Contact w/Someone Who Travel: No Recent Infectious Disease Expo: No Recent Hopitalizations: Yes Physical Abuse Screen: No Sexual Abuse: No Immunizations Up To Date Tetanus Booster (TDap): Unknown PED Vaccines UTD: No Seasonal Allergies Seasonal Allergies: No Surgeries History of Surgeries: Yes (4 VESSEL CABG 2005; CARDIAC STENTS X 8; LEFT KNEE SCOPE) Surgeries: Cardiac, CABG, Coronary Stent, Orthopedic Respiratory History of Respiratory Disorde: Yes (CPAP) Respiratory Disorders: Sleep Apnea, COPD Cardiovascular History of Cardiac Disorders: Yes Cardiac Disorders: Chronic Edema/Swelling, Coronary Artery Disease, Heart Attack, High Cholesterol, Hypertension, Syncope Neurological History of Neurological Disord: Yes (3 PINCHED NERVES ON NECK ON LEFT SIDE; PERIPHERAL NEUROPATHY) Neurological Disorders: Neuropathy, Vertigo Reproductive System Hx Reproductive Disorders: No Genitourinary History of Genitourinary Disor: No Gastrointestinal History of Gastrointestinal Di: Yes Gastrointestinal Disorders: Gall Bladder Disease Musculoskeletal History of Musculoskeletal Dis: Yes (CHRONIC NECK PAIN ; LEFT KNEE SCOPE) Musculoskeletal Disorders: Degenerate Disk Disease, Arthritis, Chronic Back Pain Endocrine History of Endocrine Disorders: Yes (INSULIN + PILLS; MORBID OBESITY) Endocrine Disorders: Diabetes, Insulin dep HEENT History of HEENT Disorders: No Loss of Vision: Bilateral Cancer History of Cancer: No Psychosocial History of Psychiatric Problem: No Integumentary History of Skin or Integumenta: Yes (CHRONIC DIABETIC FOOT ULCER RIGHT GREAT TOE) Skin/Integumentary Disorders: Recent Skin Changes Blood Transfusions History of Blood Disorders: No Family Medical History Significant Family History: Heart Disease, Cancer Family Medial History: Cardiovascular disease 19 FATHER, Onset:Unknown FH: breast cancer G8 SISTER, Onset:50's - 60 FH: ovarian cancer 19 MOTHER, Onset:40's - 50 No Family History of: Cancer of mouth Review of Systems-General Constitutional: chills, diaphoresis; No malaise, No weakness EENTM: No blurred vision, No double vision, No mouth pain, No epistaxis Respiratory: No cough, No dyspnea on exertion Cardiovascular: No chest pain, No palpitations Gastrointestinal: No abdominal pain, No constipation, No diarrhea, No hematemesis Genitourinary: No dysuria, No frequency, No hematuria Musculoskeletal: joint pain, joint swelling, muscle pain, muscle stiffness Skin: change in color; No change in hair/nails, No lesions, No rash Psychiatric/Neurological: Denies Anxiety, Denies Depressed, Denies Seizure, Denies Tremors Other pt denies any abnormal bleeding or bruising Physical Exam-General Problems Physical Exam Vital Signs Vital Signs - First Documented 12/16/18 14:30 Temp 98.5 Pulse 73 Resp 18 B/P (MAP) 120/71 (87) Pulse Ox 93 O2 Delivery Room Air Capillary Refill : Less Than 3 Seconds General Appearance: no apparent distress, obese Eyes: Bilateral Eye PERRL, Bilateral Eye EOMI HEENT: pharynx normal; No scleral icterus (R), No scleral icterus (L) Neck: non-tender, full range of motion, supple, normal inspection Respiratory: chest non-tender, lungs clear, normal breath sounds, no respiratory distress, no accessory muscle use Cardiovascular: regular rate, rhythm, no murmur Gastrointestinal: normal bowel sounds, non tender, soft, no organomegaly, no pulsatile mass Back: no CVA tenderness, no vertebral tenderness Extremities: no calf tenderness, normal capillary refill, pedal edema (right leg below knee, +1-2), other (pt has swelling and redness around surgery site, skin is slightly open with some granulation tissue seen and questionable fibrinous material vs purulence) Neurologic/Psychiatric: traffic worker II-XII nml as tested, alert, oriented x 3, depressed affect Skin: normal color, warm/dry Lymphatic: no adenopathy (neck, axilla or groin) Data Review Labs Laboratory Tests 12/16/18 15:50: White Blood Count 9.7, Red Blood Count 3.03L, Hemoglobin 9.1L, Hematocrit 26L, M arron Corpuscular Volume 86, Mean Corpuscular Hemoglobin 30, Mean Corpuscular Hemoglobin Concent 35, Red Cell Distribution Width 16.0H, Platelet Count 151, Mean Platelet Volume 10.4, Neutrophils (%) (Auto) 79H, Lymphocytes (%) (Auto) 10L, Monocytes (%) (Auto) 10, Eosinophils (%) (Auto) 1, Basophils (%) (Auto) 0, Neutrophils # (Auto) 7.7, Lymphocytes # (Auto) 1.0, Monocytes # (Auto) 0.9, Eosinophils # (Auto) 0.1, Basophils # (Auto) 0.0, Prothrombin Time 16.4H, INR Comment 1.3, Sodium Level 136, Potassium Level 4.3, Chloride Level 98, Carbon Dioxide Level 24, Anion Gap 14, Blood Urea Nitrogen 44H, Creatinine 2.13H, Estimat Glomerular Filtration Rate 31, BUN/Creatinine Ratio 21, Glucose Level 88, Lactic Acid Level 0.65, Calcium Level 10.1, Corrected Calcium 10.3H, Total Bilirubin 0.4, Aspartate Amino Transf (AST/SGOT) 19, Alanine Aminotransferase (ALT/SGPT) 21, Alkaline Phosphatase 69, Total Protein 7.1, Albumin 3.8 12/16/18 16:30: Urine Color YELLOW, Urine Clarity CLEAR, Urine pH 5, Urine Specific [place] 1.010L, Urine Protein NEGATIVE, Urine Glucose (UA) NEGATIVE, Urine Ketones NEGATIVE, Urine Nitrite NEGATIVE, Urine Bilirubin NEGATIVE, Urine Urobilinogen NORMAL, Urine Leukocyte Esterase NEGATIVE, Urine RBC (Auto) NEGATIVE, Urine RBC NONE, Urine WBC NONE, Urine Squamous Epithelial Cells 0-2, Urine Crystals NONE, Urine Bacteria NEGATIVE, Urine Casts NONE, Urine Mucus NEGATIVE, Urine Culture Indicated NO 12/16/18 20:57: Glucometer 251H 12/17/18 05:30: White Blood Count 7.8, Red Blood Count 2.97L, Hemoglobin 8.7L, Hematocrit 26L, Mean Corpuscular Volume 87, Mean Corpuscular Hemoglobin 29, Mean Corpuscular Hemoglobin Concent 34, Red Cell Distribution Width 16.0H, Platelet Count 153, Mean Platelet Volume 10.6H, Neutrophils (%) (Auto) 79H, Lymphocytes (%) (Auto) 9L, Monocytes (%) (Auto) 10, Eosinophils (%) (Auto) 2, Basophils (%) (Auto) 0, Neutrophils # (Auto) 6.2, Lymphocytes # (Auto) 0.7L, Monocytes # (Auto) 0.8, Eosinophils # (Auto) 0.1, Basophils # (Auto) 0.0, Sodium Level 135, Potassium Level 4.2, Chloride Level 101, Carbon Dioxide Level 21, Anion Gap 13, Blood Urea Nitrogen 40H, Creatinine 1.97H, Estimat Glomerular Filtration Rate 34, BUN/Creatinine Ratio 20, Glucose Level 153H, Calcium Level 9.4, Corrected Calc ium 9.8, Total Bilirubin 0.5, Aspartate Amino Transf (AST/SGOT) 15, Alanine Aminotransferase (ALT/SGPT) 20, Alkaline Phosphatase 64, Total Protein 6.9, Albumin 3.5 12/17/18 11:04: Glucometer 97 Assessment/Plan Assessment/Plan Assessment/Plan Right foot Cellulitis ??Osteomyelitis Uncontrolled DM Obese Pt's right foot does not look like it is healing well; this may be a combination of poorly controlled DM and poor blood flow to extremity. Foot X-ray was read as Osteomyelitis, but I would like to get any recent X-ray from [facility] to compare. It is possible that the erosion of bone was secondary to surgical debridement of it. However in saying that, the surrounding tissue does not look good. I agree with IV ABX, glucose control, pain control and will get wound care to see foot. Clinical Quality Measures DVT/VTE Risk/Contraindication: Risk Factor Score Per Nursin RFS Level Per Nursing on Admit: 4+=Very High ARMEN MARTINS DO December 17, 2018 12:07
[2018-12-17] MEDS ORDERED: insulin ASPART vial for Pump (NovoLOG) SQ SCH (13:00)
[2018-12-17] MEDS ORDERED: NITROGLYCERIN 0.4 MG SL TABS BTL 25'S SL PRN (13:00)
--- NOTE | 2018-12-17 13:02 | History & Physical-Hospitalist ---
History of Present Illness HPI/Chief Complaint This 68-year-old white male status post amputation of right great toe approximately one month ago with a slow uncomplicated recovery from this. Per the sister it's never really looked very good the removal of the sutures was delayed because of the slow healing process. Appreciate Dr. Bustillos's input. The foot is very erythematous red and swollen and hot. The patient had an temperature of 101 at [facility] where he has been residing for wound care. Patient is awake and oriented as to the history. Source: patient, family Exam Limitations: no limitations Date Seen 12/17/18 Time Seen by a Provider: 12:[address] H[address] MD PCP Kevin Pelletier DO Referring Physician Date of Admission December 16, 2018 at 16:00 Home Medications & Allergies Home Medications Reviewed patient Home Medication Reconciliation performed by pharmacy medication reconciliations traffic control technician and/or nursing. Patients Allergies have been reviewed. Allergies Allergies Coded Allergies niacin (Unverified Allergy, Unknown, 06/26/10) rosuvastatin (Verified Allergy, Unknown, 04/20/07) fenofibrate (Unverified Adverse Reaction, Unknown, LIVER PROBLEMS, 01/23/15) Past Blgzvad-Cxbxil-Dgvirn Hx Past Med/Social Hx: Reviewed Nursing Past Med/Soc Hx Patient Social History Marrital Status: single Employed/Student: retired Alcohol Use: Denies Use Recreational Drug Use: No Former Smoker, Quit: Jul 07, 2006 2nd Hand Smoke Exposure: No Physical Abuse Screen: No Sexual Abuse: No Recent Foreign Travel: No Contact w/other who traveled: No Recent Hopitalizations: Yes Recent Infectious Disease Expo: No Immunizations Up To Date Tetanus Booster (TDap): Unknown Pediatric: No Seasonal Allergies Seasonal Allergies: No Past Medical History Surgeries: Cardiac, CABG, Coronary Stent, Orthopedic Respiratory: Sleep Apnea Currently Using CPAP: Yes Currently Using BIPAP: No Cardiac: Chronic Edema/Swelling, Coronary Artery Disease, Heart Attack, High Cholesterol, Hypertension, Syncope Neurological: Neuropathy, Vertigo Reproductive: No Gastrointestinal: Gall Bladder Disease Musculoskeletal: Degenerate Disk Disease, Arthritis, Chronic Back Pain Endocrine: Diabetes, Insulin dep Are Your Blood Sugars Over 250: Yes Loss of Vision: Bilateral Skin/Integumentary: Recent Skin Changes History of Blood Disorders: No Family History Cardiovascular disease 19 FATHER, Onset:Unknown FH: breast cancer G8 SISTER, Onset:50's - 60 FH: ovarian cancer 19 MOTHER, Onset:40's - 50 No Family History of: Cancer of mouth Heart Disease, Cancer Review of Systems Constitutional: see HPI, fever Respiratory: no symptoms reported Gastrointestinal: nausea, vomiting Genitourinary: no symptoms reported Skin: change in color, other (Drainage from the foot) Physical Exam Physical Exam Vital Signs Vital Signs - First Documented 12/16/18 14:30 Temp 98.5 Pulse 73 Resp 18 B/P (MAP) 120/71 (87) Pulse Ox 93 O2 Delivery Room Air Capillary Refill : Less Than 3 Seconds Height, Weight, BMI Height: 6'0.00" Weight: 322lbs. 1.0oz. [id number]; 43.7 BMI Method:Stated General Appearance: No Apparent Distress, Obese HEENT: Normal ENT Inspection Neck: Normal Inspection, Non Tender, Supple Respiratory: Chest Non Tender, Lungs Clear, Normal Breath Sounds, No Accessory Muscle Use, No Respiratory Distress Cardiovascular: Regular Rate, Rhythm, No Gallop, No Murmur, Other (Decreased pulses right leg) Gastrointestinal: Normal Bowel Sounds, No Organomegaly, No Pulsatile Mass, Non Tender, Soft Extremity: Inflammation, Pedal Edema, Slow Capillary Refill Neurologic/Psychiatric: Alert, Oriented x3, No Motor/Sensory Deficits, Normal Mood/Affect Skin: Normal Color, Warm/Dry Results Results/Procedures Labs Laboratory Tests 12/16/18 15:50 12/17/18 05:30 Patient resulted labs reviewed. Imaging: Reviewed Imaging Report Assessment/Plan Admission Diagnosis Cellulitis and postop wound infection and a diabetic foot with compromised circulation Diabetes with renal insufficiency and peripheral vascular disease Renal insufficiency Morbid obesity Sleep apnea Coronary artery disease Hypertension Peripheral neuropathy Plan for wound care and surgical consultation aggressive IV antibiotics. May need swing bed care Admission Status: Inpatient Order (span 2 midnights) Reason for Inpatient Admission: Complicated wound infection in an immunocompromised patient Diagnosis/Problems Diagnosis/Problems (1) Wound infection Status: Acute (2) Diabetes mellitus, insulin dependent (IDDM), uncontrolled Status: Acute (3) Renal insufficiency Status: Acute (4) Fever Status: Resolved Resolution Date/Time: 04/08/18 @ 08:32 (5) TREE (obstructive sleep apnea) (6) CAD (coronary artery disease) Status: Chronic Clinical Quality Measures DVT/VTE Risk/Contraindication: Risk Factor Score Per Nursin RFS Level Per Nursing on Admit: 4+=Very High Copy Copies To 1: KEVIN PELLETIER KATHLEEN M MD December 17, 2018 13:02
[2018-12-17] MEDS: GEMFIBROZIL 600 MG (LOPID) TAB PO SCH (13:36)
[2018-12-17] MEDS: hydrALAZINE (APRESOLINE) 25 MG TAB PO SCH ×2 (13:37→21:01)
[2018-12-17] MEDS: MECLIZINE 25 MG (ANTIVERT) TAB PO PRN (13:37)
[2018-12-17] MEDS: ACETAMINOPHEN 500 MG TAB (TYLENOL) PO PRN (13:37)
[2018-12-17] MEDS: VANCOMYCIN 1,750 MG/NS 500 ML IVPB IV SCH ×2 (15:23)
[2018-12-17] MEDS: warFARin 7.5 MG (COUMADIN) TAB PO SCH (17:58)
--- NOTE | 2018-12-17 20:55 | NUR ---
THIS RN CALLED DR. PAINTING IN REGARDS TO THE PT'S FINGER STICK ACCUCHECK BLOOD GLUCOSE BEING 136 AND THE PATIENT HAVING 67 UNITS OF LEVEMIR SCHEDULED AT 2100. MEDICATION OKAYED BY DR. PAINTING TO GIVE.
[2018-12-17] MEDS: VALSARTAN 160 MG (DIOVAN) TABLET PO SCH (21:00)
[2018-12-17] MEDS ORDERED: warFARin 7.5 MG (COUMADIN) TAB PO SCH (21:00)
[2018-12-17] MEDS: CARVEDILOL 12.5 MG (COREG) TABLET PO SCH (21:01)
[2018-12-17] MEDS: FINASTERIDE (PROSCAR) 5 MG TAB PO SCH (21:01)
[2018-12-17] MEDS: AMITRIPTYLINE 25 MG (ELAVIL) TAB PO SCH (21:01)
[2018-12-17] MEDS: TAMSULOSIN 0.4 MG (FLOMAX) CAP PO SCH (21:01)
[2018-12-17] MEDS: FUROSEMIDE 40 MG (LASIX) TAB PO SCH (21:01)
[2018-12-18] MEDS: NS IV 1000 ML 1,000 ML IV SCH ×3 (03:14→21:45)
[2018-12-18 04:45] VITALS: BP 128/74
[2018-12-18 05:23] LABS: BASOPHILS % (AUTO) 0 % (0-10); EOSINOPHILS # (AUTO) 0.1 10^3/uL (0.0-0.3); EOSINOPHILS % (AUTO) 2 % (0-10); HEMATOCRIT 24 % (40-54); LYMPHOCYTES # (AUTO) 0.7 X 10^3 (1.0-4.0); LYMPHOCYTES % (AUTO) 12 % (12-44); MEAN CORPUSCULAR HEMOGLOBIN 29 PG (25-34); MEAN CORPUSCULAR HGB CONC 34 G/DL (32-36); MEAN CORPUSCULAR VOLUME 87 FL (80-99); MONOCYTES # (AUTO) 0.7 X 10^3 (0.0-1.0); MONOCYTES % (AUTO) 11 % (0-12); NEUTROPHILS # (AUTO) 4.7 X 10^3 (1.8-7.8); NEUTROPHILS % (AUTO) 74 % (42-75); PLATELET COUNT 147 10^3/uL (130-400); RED CELL DISTRIBUTION WIDTH 15.8 % (10.0-14.5); WHITE BLOOD COUNT 6.2 10^3/uL (4.3-11.0)
[2018-12-18 05:32] LABS: INR 1.5 (0.8-1.4)
[2018-12-18 05:50] LABS: ALBUMIN 3.3 GM/DL (3.2-4.5); BILIRUBIN,TOTAL 0.4 MG/DL (0.1-1.0); CALCIUM 9.1 MG/DL (8.5-10.1); CREATININE SERUM 1.83 MG/DL (0.60-1.30); POTASSIUM 4.1 MMOL/L (3.6-5.0); TOTAL PROTEIN 6.4 GM/DL (6.4-8.2)
[2018-12-18 06:00] LABS: ERYTHROCYTE SEDIMENTATION RATE > 140 MM/HR (0-30)
[2018-12-18] MEDS: KCL 20 MEQ TAB (K-DUR) PO SCH (06:08)
[2018-12-18] MEDS: PIPERACILLIN/TAZO 4.5 GM/NS 100 ML IV SCH ×6 (06:08→22:56)
[2018-12-18] MEDS: VENlafaxine XR 75 MG (EFFEXOR XR) CAP PO SCH (06:08)
[2018-12-18] MEDS: inSUlin ASPART (NovoLOG) 1 UNIT/0.01 ML (CHARGE PER UNIT) SC SCH ×7 (06:09→21:56)
[2018-12-18 08:00] VITALS: BP 147/71
[2018-12-18] MEDS: hydrALAZINE (APRESOLINE) 25 MG TAB PO SCH ×3 (08:34→20:02)
[2018-12-18] MEDS: ASPIRIN E.C. 81 MG (ECOTRIN) TAB PO SCH (08:34)
[2018-12-18] MEDS: GEMFIBROZIL 600 MG (LOPID) TAB PO SCH (08:34)
[2018-12-18] MEDS: CARVEDILOL 12.5 MG (COREG) TABLET PO SCH ×2 (08:34→20:02)
[2018-12-18] MEDS: amLODIPine 10 MG (NORVASC) TAB PO SCH (08:34)
[2018-12-18] MEDS: FUROSEMIDE 40 MG (LASIX) TAB PO SCH ×2 (08:35→20:02)
[2018-12-18] MEDS: DOCUSATE SODIUM 100 MG (COLACE) CAP PO SCH (08:35)
[2018-12-18] MEDS: ALLOPURINOL 100 MG (ZYLOPRIM) TAB PO SCH (08:35)
[2018-12-18 12:00] VITALS: BP 124/61
--- NOTE | 2018-12-18 12:04 | Progress Note-Hospitalist ---
Subjective HPI/CC On Admission Date Seen by Provider: December 18, 2018 Time Seen by Provider: 12:00 This 68-year-old white male status post amputation of right great toe approximately one month ago with a slow uncomplicated recovery from this. Per the sister it's never really looked very good the removal of the sutures was delayed because of the slow healing process. Appreciate Dr. Bustillos's input. The foot is very erythematous red and swollen and hot. The patient had an temperature of 101 at [facility] where he has been residing for wound care. Patient is awake and oriented as to the history. Subjective/Events-last exam Patient is without complaint. He is eating much better today and feels much better. Cultures came back with MRSA. Sedimentation rate is greater than 140. Real concern remains about osteomyelitis of remaining bones. Discussed with Dr. Bustillos who concurs that MRI would be the next step. Review of Systems Neurological: Weakness Focused Exam Lactate Level 12/16/18 15:50: Lactic Acid Level 0.65 Objective Exam Vital Signs Vital Signs Date Time Temp Pulse Resp B/P (MAP) Pulse Ox O2 Delivery O2 Flow Rate FiO2 12/18/18 08:00 Nasal Cannula 4.00 12/18/18 08:00 99.4 82 20 147/71 (96) 95 Capillary Refill : Less Than 3 Seconds General Appearance: No Apparent Distress, Obese HEENT: Normal ENT Inspection Neck: Normal Inspection, Non Tender, Supple Respiratory: Chest Non Tender, Lungs Clear, Normal Breath Sounds, No Accessory Muscle Use, No Respiratory Distress Cardiovascular: Regular Rate, Rhythm, No Gallop, No Murmur, Other (Decreased pulses right leg) Gastrointestinal: Normal Bowel Sounds, No Organomegaly, No Pulsatile Mass, Non Tender, Soft Back: Normal Inspection Extremity: Inflammation, Pedal Edema, Slow Capillary Refill Neurologic/Psychiatric: Alert, Oriented x3, No Motor/Sensory Deficits, Normal Mood/Affect Skin: Normal Color, Warm/Dry Results/Procedures Lab Laboratory Tests 12/18/18 05:12 Patient resulted labs reviewed. Imaging: Reviewed Imaging Report Assessment/Plan Assessment and Plan Assess & Plan/Chief Complaint Cellulitis and postop wound infection and a diabetic foot with compromised circulation-MRSA and elevated sedimentation rate. Patient is on vancomycin will obtain an MRI of the foot. Diabetes with renal insufficiency and peripheral vascular disease, with peripheral neuropathy Renal insufficiency-stable Morbid obesity Sleep apnea Coronary artery disease Hypertension Peripheral neuropathy Diagnosis/Problems Diagnosis/Problems (1) Wound infection Status: Acute (2) Diabetes mellitus, insulin dependent (IDDM), uncontrolled Status: Acute (3) Renal insufficiency Status: Acute (4) Fever Status: Resolved Resolution Date/Time: 04/08/18 @ 08:32 (5) TREE (obstructive sleep apnea) Status: Chronic (6) CAD (coronary artery disease) Status: Chronic Clinical Quality Measures DVT/VTE Risk/Contraindication: Risk Factor Score Per Nursin RFS Level Per Nursing on Admit: 4+=Very High RENNY PAINTING MD December 18, 2018 12:04
--- NOTE | 2018-12-18 12:53 | Progress Note ---
Subjective Time Seen by a Provider: 11:43 Subjective/Events-last exam Pt seen and examined, no new complaints. Nurse states culture came back and wound is growing out MRSA. Review of Systems General: No Chills Pulmonary: No Dyspnea, No Cough; Other (cpap on) Focused Exam Lactate Level 12/16/18 15:50: Lactic Acid Level 0.65 Objective Exam Vital Signs Date Time Temp Pulse Resp B/P (MAP) Pulse Ox O2 Delivery O2 Flow Rate FiO2 12/18/18 08:00 Nasal Cannula 4.00 12/18/18 08:00 99.4 82 20 147/71 (96) 95 Nasal Cannula 4.00 12/18/18 07:00 66 12/18/18 04:45 97.6 65 20 128/74 (92) 97 NIV CPAP 12/18/18 01:00 64 12/17/18 23:15 97.8 66 20 124/59 (80) 96 NIV CPAP 12/17/18 20:00 97.4 67 18 131/63 (85) 99 Nasal Cannula 4.00 12/17/18 20:00 Nasal Cannula 4.00 12/17/18 19:00 67 12/17/18 15:53 98.3 69 22 124/60 (81) 93 Nasal Cannula 4.00 I & O 12/18/18 07:00 Intake Total 3270 ml Output Total 425 ml Balance 2845 ml Capillary Refill : Less Than 3 Seconds General Appearance: No Apparent Distress, Obese Respiratory: Chest Non Tender, Lungs Clear, Normal Breath Sounds, No Accessory Muscle Use, No Respiratory Distress Cardiovascular: Regular Rate, Rhythm, No Gallop, No Murmur, Other (Decreased pulses right leg) Gastrointestinal: normal bowel sounds, non tender, soft, no organomegaly, no pulsatile mass Extremity: Inflammation, Pedal Edema, Slow Capillary Refill Neurologic/Psychiatric: Alert, Oriented x3, No Motor/Sensory Deficits, Normal Mood/Affect Results Lab Laboratory Tests 12/17/18 15:43: Glucometer 187H 12/17/18 20:37: Glucometer 136H 12/18/18 05:12: White Blood Count 6.2, Red Blood Count 2.72L, Hemoglobin 8.0L, Hematocrit 24L, Mean Corpuscular Volume 87, Mean Corpuscular Hemoglobin 29, Mean Corpuscular Hemoglobin Concent 34, Red Cell Distribution Width 15.8H, Platelet Count 147, Mean Platelet Volume 10.0, Neutrophils (%) (Auto) 74, Lymphocytes (%) (Auto) 12, Monocytes (%) (Auto) 11, Eosinophils (%) (Auto) 2, Basophils (%) (Auto) 0, Neutrophils # (Auto) 4.7, Lymphocytes # (Auto) 0.7L, Monocytes # (Auto) 0.7, Eosinophils # (Auto) 0.1, Basophils # (Auto) 0.0, Erythrocyte Sedimentation Rate > 140H, Prothrombin Time 19.0H, INR Comment 1.5H, Sodium Level 138, Potassium Level 4.1, Chloride Level 103, Carbon Dioxide Level 22, Anion Gap 13, Blood Urea Nitrogen 30H, Creatinine 1.83H, Estimat Glomerular Filtration Rate 37, BUN/Creatinine Ratio 16, Glucose Level 63L, Calcium Level 9.1, Corrected Calcium 9.7, Total Bilirubin 0.4, Aspartate Amino Transf (AST/SGOT) 26, Alanine Aminotransferase (ALT/SGPT) 27, Alkaline Phosphatase 78, Total Protein 6.4, Albumin 3.3 12/18/18 06:36: Glucometer 89 12/18/18 10:54: Glucometer 237H Microbiology 12/16/18 Blood Culture - Preliminary, Resulted No growth 12/16/18 Gram Stain - Final, Complete 12/16/18 Wound Culture - Final, Complete Staphylococcus aureus See Comments Assessment/Plan Assessment/Plan Assessment/Plan Right foot Cellulitis ??Osteomyelitis Uncontrolled DM Obese Pt's right foot is not healing well; this may be a combination of poorly controlled DM and poor blood flow to extremity. Foot X-ray was read as Osteomyelitis, is ordering MRI for tomorrow. Bactroban to foot and continue IV ABX, ??Podiatry to see pt tomorrow; however pt may need BKA depending on MRI. Clinical Quality Measures DVT/VTE Risk/Contraindication: Risk Factor Score Per Nursin RFS Level Per Nursing on Admit: 4+=Very High ARMEN MARTINS DO December 18, 2018 12:53
[2018-12-18] MEDS: MUPIROCIN 2% OINT 22 GM (BACTROBAN) TUBE TOP SCH (14:33)
[2018-12-18] MEDS ORDERED: TROUGH ORDER-PHARMACY XX NR (15:00)
[2018-12-18] MEDS: VANCOMYCIN 1,750 MG/NS 500 ML IVPB IV SCH ×2 (15:50)
[2018-12-18] MEDS: ACETAMINOPHEN 500 MG TAB (TYLENOL) PO PRN ×2 (15:51→20:02)
[2018-12-18] MEDS: MECLIZINE 25 MG (ANTIVERT) TAB PO PRN (15:51)
[2018-12-18 16:00] VITALS: BP 122/60
[2018-12-18] MEDS: warFARin 7.5 MG (COUMADIN) TAB PO SCH (18:30)
[2018-12-18 19:44] VITALS: BP 135/63
[2018-12-18] MEDS: TAMSULOSIN 0.4 MG (FLOMAX) CAP PO SCH (20:02)
[2018-12-18] MEDS: FINASTERIDE (PROSCAR) 5 MG TAB PO SCH (20:02)
[2018-12-18] MEDS: AMITRIPTYLINE 25 MG (ELAVIL) TAB PO SCH (20:02)
[2018-12-18] MEDS: VALSARTAN 160 MG (DIOVAN) TABLET PO SCH (20:05)
[2018-12-19 00:07] VITALS: BP 134/67
[2018-12-19 03:29] VITALS: BP 154/77
[2018-12-19] MEDS: inSUlin ASPART (NovoLOG) 1 UNIT/0.01 ML (CHARGE PER UNIT) SC SCH ×6 (05:55→22:27)
[2018-12-19] MEDS: PIPERACILLIN/TAZO 4.5 GM/NS 100 ML IV SCH ×6 (05:55→22:36)
[2018-12-19] MEDS: VENlafaxine XR 75 MG (EFFEXOR XR) CAP PO SCH (05:55)
[2018-12-19] MEDS: KCL 20 MEQ TAB (K-DUR) PO SCH (05:55)
[2018-12-19 08:27] VITALS: BP 127/66
[2018-12-19] MEDS: amLODIPine 10 MG (NORVASC) TAB PO SCH (09:38)
[2018-12-19] MEDS: hydrALAZINE (APRESOLINE) 25 MG TAB PO SCH ×3 (09:38→22:24)
[2018-12-19] MEDS: GEMFIBROZIL 600 MG (LOPID) TAB PO SCH (09:38)
[2018-12-19] MEDS: CARVEDILOL 12.5 MG (COREG) TABLET PO SCH ×2 (09:40→22:23)
[2018-12-19] MEDS: ALLOPURINOL 100 MG (ZYLOPRIM) TAB PO SCH (09:40)
[2018-12-19] MEDS: FUROSEMIDE 40 MG (LASIX) TAB PO SCH ×2 (09:41→22:25)
[2018-12-19] MEDS: ASPIRIN E.C. 81 MG (ECOTRIN) TAB PO SCH (09:41)
[2018-12-19] MEDS: NS IV 1000 ML 1,000 ML IV SCH (09:41)
[2018-12-19] MEDS: DOCUSATE SODIUM 100 MG (COLACE) CAP PO SCH (09:41)
[2018-12-19] MEDS: MUPIROCIN 2% OINT 22 GM (BACTROBAN) TUBE TOP SCH ×2 (09:45→22:25)
--- NOTE | 2018-12-19 11:29 | Physical Therapy Evaluation ---
PT Evaluation-General Medical Diagnosis Admission Date December 16, 2018 at 16:00 Medical Diagnosis: cellulitis right foot Onset Date: December 16, 2018 Therapy Diagnosis Therapy Diagnosis: impaired mobility, strength, balance Height/Weight Height (Feet): 6 Height (Inches): 0.00 Weight (Pounds): 322 Weight (Ounces): 1.0 Precautions Precautions/Isolations: Contact Isolation Weight Bear Status Right Lower Extremity: Right Partial Weight Bearing Left Lower Extremity: Left Weight Bearing/Tolerated Referral Physician: Ave Horton MD Reason for Referral: Evaluation/Treatment Medical History Pertinent Medical History: Arthritis, CABG, CAD, COPD, DM, HTN, [place], Neuropathy Additional Medical History Past Medical History Surgeries: Cardiac, CABG, Coronary Stent, Orthopedic Respiratory: Sleep Apnea Currently Using CPAP: Yes Currently Using BIPAP: No Cardiac: Chronic Edema/Swelling, Coronary Artery Disease, Heart Attack, High Cholesterol, Hypertension, Syncope Neurological: Neuropathy, Vertigo Reproductive: No Gastrointestinal: Gall Bladder Disease Musculoskeletal: Degenerate Disk Disease, Arthritis, Chronic Back Pain Endocrine: Diabetes, Insulin dep Are Your Blood Sugars Over 250: Yes Loss of Vision: Bilateral Skin/Integumentary: Recent Skin Changes History of Blood Disorders: No Reviewed History: Yes Social History Home: Single Level Current Living Status: Alone Entry Into Home: Stairs With Railing PT Steps Into Home: 3 Patient has been at [facility] up to this point. Prior/Core FIM Prior Level of Function Therapy Code Descriptions/Definitions Functional Heard Measure: 0=Not Assessed/NA 4=Minimal Assistance 1=Total Assistance 5=Supervision or Setup 2=Maximal Assistance 6=Modified Heard 3=Moderate Assistance 7=Complete Heard Therapy Quality Codes: 6 Independent with activity with or without an assistive device 5 Patient requires set up or clean up by helper. Patient completes activity by themselves 4 Supervision or touching assist (CGA). [place] provide cues , steadying assist 3 The helper provides less than half the effort to complete the activity 2 The helper provides more than half the effort to complete the activity 1 Dependent. The helper does all the effort to complete an activity 7 Patient refused to complete or attempt activity 9 The patient did not perform the activity before the current illness or injury 88 Not attempted due to Medical conditions or safety concerns Functional Abilities and Goals: Independent: Patient completed the activities by him/herself, with or without an assistive device, with no assistance from a helper. Needed Some Help: Patient needed partial assistance from another person to complete activities. Dependent: A helper completed the activities for the patient. Unknown: Not Applicable: Bed Mobility: 2 Transfers (B,C,W/C) (FIM): 2 Patient states he was assist of 3 people previously for bed mobility and transfers and has not ambulated for months. PT Evaluation-Current Subjective Patient in bed pre tx, agrees to PT reluctantly, has some back pain but states that his right foot is numb. Patient states he has double vision and gets dizzy with movement. Pt/Family Goals "to get rid of this double vision and be able to move better" Objective Patient Orientation: Person, Place, Situation Attachments: Oxygen, IV ROM/Strength Strength Lower Extremities 3/5 gross bilateral lower extremities, right ankle not tested due to wound. Neuromuscular (Tone, Coordination, Reflexes) NT Sensory Vision: Hearing: Functional Sensation Right Lower Extremit: Impaired Sensation Left Lower Extremity: Impaired Transfers Therapy Code Descriptions/Definitions Functional Heard Measure: 0=Not Assessed/NA 4=Minimal Assistance 1=Total Assistance 5=Supervision or Setup 2=Maximal Assistance 6=Modified Heard 3=Moderate Assistance 7=Complete Heard Transfers (B, C, W/C) (FIM): 2 Scootin Rollin Supine to/from Sit: 2 Patient needs max assist for supine to sit, is dizzy the whole time he is sitting, it does not improve with rest. Patient sits for about 10 min. Balance Sitting Static: Fair Sitting Dynamic: Fair Treatment seated bilateral lower extremity exercises x15 (AP, LAQ) Assessment/Needs Patient has impaired mobility, strength, balance. He is dizzy with any movement, high fall risk. Patient in bed post tx with nurse call, phone, tray, all needs met, family/friend in the room. Do not recommend stand pivot transfers at this time due to patient's size combined with dizziness. Rehab Potential: Guarded PT Short Term Goals Short Term Goals Time Frame: December 26, 2018 Transfers (B,C,W/C) (FIM): 3 (mod assist for supine to sit) Wheelchair (FIM): 2 PT Plan Problem List Problem List: Activity Tolerance, Functional Strength, Safety, Balance, Gait, Transfer, Bed Mobility, ROM Treatment/Plan Treatment Plan: Continue Plan of Care Treatment Plan: Bed Mobility, Concurrent Therapy, Education, Functional Acti vity Farshad, Functional Strength, Gait, Safety, Therapeutic Exercise, Transfers Treatment Duration: December 26, 2018 Frequency: 6 times per week Estimated Hrs Per Day: .25 hour per day (15-30') Patient and/or Family Agrees t: Yes Safety Risks/Education Patient Education: Transfer Techniques, Correct Positioning, Safety Issues Teaching Recipient: Patient Teaching Methods: Demonstration, Discussion Response to Teaching: Reinforcement Needed Discharge Recommendations Plan Patient will perform bed mobility and transfer training, balance and endurance training, functional strengthening, gait training, and education, to improve functional mobility and independence at home. Therapy D/C Recommendations: Home w/ Family Support, Snf (TCU/NH) Time/GCodes Time In: 1058 Time Out: 1125 Total Billed Treatment Time: 27 Total Billed Treatment 1 visit SAMANTHA 15' FA 12' BETTY STRONG PT December 19, 2018 11:29
--- NOTE | 2018-12-19 11:48 | Progress Note ---
Subjective Time Seen by a Provider: 10:50 Subjective/Events-last exam Pt seen and examined, no changes and pt with no new complaints. Nurse states when he walks around he kicks surgical area and foot; "because he can't feel it". Review of Systems General: No Chills, No Night Sweats Pulmonary: No Dyspnea, No Cough; Other (uses CPAP) Cardiovascular: No: Chest Pain, Palpitations Gastrointestinal: No: Nausea, Vomiting Focused Exam Lactate Level 12/16/18 15:50: Lactic Acid Level 0.65 Objective Exam Vital Signs Date Time Temp Pulse Resp B/P (MAP) Pulse Ox O2 Delivery O2 Flow Rate FiO2 12/19/18 08:27 98.0 67 20 127/66 (86) 98 NIV CPAP 12/19/18 07:00 67 12/19/18 03:29 98.2 64 19 154/77 (102) 96 NIV CPAP 12/19/18 01:00 66 12/19/18 00:07 97.9 66 20 134/67 (89) 96 NIV CPAP 12/18/18 20:45 97.8 12/18/18 20:10 Nasal Cannula 4.00 12/18/18 20:02 100.4 12/18/18 19:44 100.4 69 20 135/63 (87) 98 Nasal Cannula 4.00 12/18/18 19:00 67 12/18/18 16:00 98.9 73 18 122/60 (80) 96 Nasal Cannula 4.00 12/18/18 13:00 63 12/18/18 12:00 97.3 65 20 124/61 (82) 96 Nasal Cannula 4.00 I & O0 12/19/18 07:00 Intake Total 2911.5 ml Output Total 1801 ml Balance 1110.5 ml Capillary Refill : Less Than 3 Seconds General Appearance: No Apparent Distress, Obese Respiratory: Chest Non Tender, Lungs Clear, Normal Breath Sounds, No Accessory Muscle Use, No Respiratory Distress Cardiovascular: Regular Rate, Rhythm, No Gallop, No Murmur, Other (Decreased pulses right leg) Gastrointestinal: normal bowel sounds, non tender, soft, no organomegaly, no pulsatile mass Extremity: Inflammation, Pedal Edema, Slow Capillary Refill Neurologic/Psychiatric: Alert, Oriented x3, No Motor/Sensory Deficits, Normal Mood/Affect Results Lab Laboratory Tests 12/18/18 15:14: Vancomycin Level Trough 15.7 12/18/18 15:46: Glucometer 82 12/18/18 21:41: Glucometer 166H 12/19/18 05:27: Glucometer 102 12/19/18 11:24: Glucometer 124H Microbiology 12/16/18 Blood Culture - Preliminary, Resulted No growth 12/16/18 Gram Stain - Final, Complete 12/16/18 Wound Culture - Final, Complete Staphylococcus aureus See Comments Assessment/Plan Assessment/Plan Assessment/Plan Right foot Cellulitis ??Osteomyelitis Uncontrolled DM Obese Pt's right foot is not healing well; this may be a combination of poorly controlled DM and poor blood flow to extremity. Awaiting MRI ordered for today. Bactroban to foot and continue IV ABX, Podiatry has not seen pt yet; pt still may need BKA depending on MRI. Clinical Quality Measures DVT/VTE Risk/Contraindication: Risk Factor Score Per Nursin RFS Level Per Nursing on Admit: 4+=Very High ARMEN MARTINS DO December 19, 2018 11:48
[2018-12-19 12:00] VITALS: BP 142/70
[2018-12-19] MEDS ORDERED: NITR0.4T42 SL (12:10)
[2018-12-19] MEDS ORDERED: TAMS0.4C98 PO (12:10)
[2018-12-19] MEDS ORDERED: FOLI0.4T2 PO (12:10)
[2018-12-19] MEDS ORDERED: ASCO500T7 PO (12:10)
--- NOTE | 2018-12-19 12:11 | NUR ---
UPDATED MED REC WITH PHYSICIAN'S ORDERS FROM [facility].
--- NOTE | 2018-12-19 13:53 | NUR ---
CM/SS. Patient has been with [facility] Medicare skilled status after right big toe amputation at [facility]. Plan is to be determined. Would anticipate return to [facility] for continued wound care and therapies unless situation changes to warrant alternate care plan.
[2018-12-19] MEDS: VANCOMYCIN 1,750 MG/NS 500 ML IVPB IV SCH ×2 (15:57)
[2018-12-19 16:01] VITALS: BP 149/68
--- NOTE | 2018-12-19 16:31 | Diagnostic Imaging Report ---
EXAM: MRI right foot without contrast. DATE: December 19, 2018. INDICATION: 68-year-old male, evaluation for osteomyelitis of the right foot. Purulent drainage from a right toe. COMPARISON: Right foot radiographs of December 16, 2018. TECHNIQUE: Multiple noncontrast MRI sequences at the level of the right foot were obtained. FINDINGS: There is post surgical absence of the first digit phalanges. There is bone destruction of the distal aspect of the first metatarsal with loss of normal T1 marrow signal and adjacent edema-like signal, compatible with osteomyelitis. Marrow signal abnormalities are involving at least the distal remaining 2.6 cm of the first metatarsal. There is no additional site of osteomyelitis. There are mild mid foot arthritic changes. There is no large joint effusion. There is prominent predominantly dorsal subcutaneous edema. There is also edema within the foot musculature. There is no identified focal fluid collection on noncontrast imaging evaluation. There is fatty atrophy of the foot musculature which may relate to polyneuropathy. IMPRESSION: 1. Osteomyelitis involving the distal aspect of the first metatarsal with marrow signal abnormalities extending 2.6 cm from the distal remaining portion of the first metatarsal. 2. No clearly identified focal fluid collection or abscess on limited noncontrast evaluation. Dictated by: Dictated on workstation # [id number]
--- NOTE | 2018-12-19 17:30 | Progress Note-Hospitalist ---
Progress Note Progress Notes/Assess & Plan Date Seen 12/19/18 Time Seen by Provider: 17:28 Assessment & Plan The patient is a 68-year-old white male diabetic. He has been hospitalized for 3 days now with cellulitis of the right lower leg and an apparent osteomyelitis of the right foot. MRI was done to further evaluate the possibility of osteomyelitis. I do not have a report at this time. He reports that otherwise he remains the same. Physical exam: The patient is morbidly obese. Lungs are clear to auscultation. CV is regular without murmur. Abdomen is large. Extremities show some erythema on the right distal lower extremity Impression: Diabetes mellitus insulin requiring. 2.neuropathy secondary to number 1. 3.likely osteomyelitis Plan: Discussed with patient. It would seem that if the MRI corroborates the likelihood of osteomyelitis that amputation would be in order. The patient agrees CASSY PALACIO MD December 19, 2018 17:30
[2018-12-19] MEDS: warFARin 7.5 MG (COUMADIN) TAB PO SCH (17:43)
[2018-12-19 20:08] VITALS: BP 125/64
[2018-12-19] MEDS: TAMSULOSIN 0.4 MG (FLOMAX) CAP PO SCH (22:23)
[2018-12-19] MEDS: VALSARTAN 160 MG (DIOVAN) TABLET PO SCH (22:24)
[2018-12-19] MEDS: FINASTERIDE (PROSCAR) 5 MG TAB PO SCH (22:24)
[2018-12-19] MEDS: AMITRIPTYLINE 25 MG (ELAVIL) TAB PO SCH (22:25)
[2018-12-19] MEDS: CATHETER FLUSH 10 ML SYR IV SCH (22:28)
[2018-12-20] VITALS (7 sets, daily range): BP systolic 138–171; BP diastolic 64–81
--- NOTE | 2018-12-20 05:40 | NUR ---
OMNICELL KEYPAD NOT WORKING AT THIS TIME. 50ML 50% DEXTROSE PULLED FROM [employer]. UNABLE TO ENTER THAT I ONLY WANTED TO PULL 25ML INSTEAD OF 50ML. WASTED 25ML 50% DEXTROSE WITH BRAYAN ABDUL.
[2018-12-20] MEDS ORDERED: DEXTROSE 50% 50 ML (IMS) SYR IV ONE (05:45)
[2018-12-20] MEDS: CATHETER FLUSH 10 ML SYR IV SCH ×3 (05:48→21:02)
[2018-12-20] MEDS: inSUlin ASPART (NovoLOG) 1 UNIT/0.01 ML (CHARGE PER UNIT) SC SCH ×5 (05:48→16:52)
--- NOTE | 2018-12-20 06:00 | NUR ---
0520- PT SWEATY, CLAMMY, CONFUSED AT THIS TIME. BLOOD SUGAR CHECKED-42. X2 ORANGE JUICE GIVEN WITH ARDEN CRACKERS AND PEANUT BUTTER. 0540- BLOOD SUGAR RECHECKED-53. 0543-25ML DEXTROSE 50% GIVEN VIA TELEPHONE ORDERS PER DR. PALACIO. 0600- BLOOD SUGAR RECHECKED- 123, THIS RN ORDERED PTS BREAKFAST AT THIS TIME. WILL CONTINUE TO MONITOR PT.
[2018-12-20] MEDS: PIPERACILLIN/TAZO 4.5 GM/NS 100 ML IV SCH ×4 (07:17→13:40)
[2018-12-20] MEDS: KCL 20 MEQ TAB (K-DUR) PO SCH (07:17)
[2018-12-20] MEDS: VENlafaxine XR 75 MG (EFFEXOR XR) CAP PO SCH (07:17)
[2018-12-20] MEDS: ASPIRIN E.C. 81 MG (ECOTRIN) TAB PO SCH (09:15)
[2018-12-20] MEDS: amLODIPine 10 MG (NORVASC) TAB PO SCH (09:16)
[2018-12-20] MEDS: hydrALAZINE (APRESOLINE) 25 MG TAB PO SCH ×3 (09:16→21:02)
[2018-12-20] MEDS: DOCUSATE SODIUM 100 MG (COLACE) CAP PO SCH (09:16)
[2018-12-20] MEDS: FUROSEMIDE 40 MG (LASIX) TAB PO SCH ×2 (09:16→21:03)
[2018-12-20] MEDS: CARVEDILOL 12.5 MG (COREG) TABLET PO SCH ×2 (09:16→21:02)
[2018-12-20] MEDS: GEMFIBROZIL 600 MG (LOPID) TAB PO SCH (09:16)
[2018-12-20] MEDS: ALLOPURINOL 100 MG (ZYLOPRIM) TAB PO SCH (09:17)
[2018-12-20] MEDS: MUPIROCIN 2% OINT 22 GM (BACTROBAN) TUBE TOP SCH (09:19)
--- NOTE | 2018-12-20 10:00 | Progress Note ---
Subjective Time Seen by a Provider: 09:28 Subjective/Events-last exam Pt seen and examined, he has no new complaints. No foot pain. MRI done yesterday. Review of Systems General: No Chills Pulmonary: No Dyspnea, No Cough Cardiovascular: No: Chest Pain, Palpitations Objective Exam Vital Signs Date Time Temp Pulse Resp B/P (MAP) Pulse Ox O2 Delivery O2 Flow Rate FiO2 12/20/18 08:00 96.8 64 21 139/64 (89) 95 Nasal Cannula 4.00 12/20/18 07:00 67 12/20/18 04:51 97.2 73 20 171/81 (111) 94 NIV CPAP 12/20/18 01:00 73 12/20/18 00:00 98.5 76 20 143/72 (95) 93 NIV CPAP 12/19/18 20:08 97.8 72 20 125/64 (84) 95 NIV CPAP 12/19/18 20:00 NIV CPAP 4.00 12/19/18 19:00 70 12/19/18 16:01 97.2 67 20 149/68 (95) 96 NIV CPAP 12/19/18 12:47 69 12/19/18 12:00 98.0 72 22 142/70 (94) 95 NIV CPAP I & O 12/20/18 07:00 Intake Total 3847.5 ml Output Total 3600 ml Balance 247.5 ml Capillary Refill : Less Than 3 Seconds General Appearance: No Apparent Distress, Obese Respiratory: Chest Non Tender, Lungs Clear, Normal Breath Sounds, No Accessory Muscle Use, No Respiratory Distress Cardiovascular: Regular Rate, Rhythm, No Gallop, No Murmur, Other (Decreased pulses right leg) Gastrointestinal: normal bowel sounds, non tender, soft, no organomegaly, no pulsatile mass Extremity: Inflammation (no worse, than yesterday), Pedal Edema, Slow Capillary Refill, Other (incision slightly more open, not draining purulence) Neurologic/Psychiatric: Alert, Oriented x3, No Motor/Sensory Deficits, Normal Mood/Affect Results Lab Laboratory Tests 12/19/18 11:24: Glucometer 124H 12/19/18 15:44: Glucometer 177H 12/19/18 20:54: Glucometer 155H 12/20/18 05:23: Glucometer 42*L 12/20/18 05:42: Glucometer 53*L 12/20/18 06:01: Glucometer 123H 12/20/18 09:26: Glucometer 182H Microbiology 12/16/18 Blood Culture - Preliminary, Resulted No growth 12/16/18 Gram Stain - Final, Complete 12/16/18 Wound Culture - Final, Complete Staphylococcus aureus See Comments Assessment/Plan Assessment/Plan Assessment/Plan Right foot Cellulitis with Osteomyelitis of phalange Uncontrolled DM Obese Pt's right foot is not healing well; MRI unfortunately showed Osteomyelitis will go over with radiologist, but pt will most likely need BKA. Bactroban to foot and continue IV ABX. I will have to talk more with pt regarding this. Clinical Quality Measures DVT/VTE Risk/Contraindication: Risk Factor Score Per Nursin RFS Level Per Nursing on Admit: 4+=Very High ARMEN MARTINS DO December 20, 2018 10:00
--- NOTE | 2018-12-20 13:31 | Physical Therapy Progress Note ---
Therapy Progress Note Patient has refused PT treatment twice today. He has been ill and doesn't want to participate. This is an emphatic refusal. It has been explained to patient about the benefits of PT and consequences of inactivity. Will try back tomorrow. BETTY STRONG PT December 20, 2018 13:31
[2018-12-20] MEDS: VANCOMYCIN 1,750 MG/NS 500 ML IVPB IV SCH ×2 (16:52)
--- NOTE | 2018-12-20 17:33 | Progress Note-Hospitalist ---
Progress Note Progress Notes/Assess & Plan Date Seen 12/20/18 Time Seen by Provider: 17:30 Assessment & Plan The patient had an MRI of his right foot yesterday and the results were not available to me at the time I left the hospital. the report is available today and is consistent with osteomyelitis in the right first metatarsal. Dr. Rahman has seen the patient and discussed the opportunities. They have decided on amputation which will be performed on . The patient has no other complaints. Physical exam: He is alert and oriented. Lungs are clear to auscultation. CV is regular without murmur. Impression: Osteomyelitis right first metatarsal. 2 diabetes mellitus. 3 extensive peripheral vascular disease. 4.coronary artery disease with previous open coronary artery bypass grafting Plan: Continue antibiotics. Surgery on 12/22 CASSY PALACIO MD December 20, 2018 17:33
[2018-12-20] MEDS: FINASTERIDE (PROSCAR) 5 MG TAB PO SCH (21:01)
[2018-12-20] MEDS: ACETAMINOPHEN 500 MG TAB (TYLENOL) PO PRN (21:01)
[2018-12-20] MEDS: AMITRIPTYLINE 25 MG (ELAVIL) TAB PO SCH (21:01)
[2018-12-20] MEDS: VALSARTAN 160 MG (DIOVAN) TABLET PO SCH (21:01)
[2018-12-20] MEDS: TAMSULOSIN 0.4 MG (FLOMAX) CAP PO SCH (21:03)
[2018-12-21 00:19] VITALS: BP 152/67
[2018-12-21] MEDS: PIPERACILLIN/TAZO 4.5 GM/NS 100 ML IV SCH ×6 (00:38→22:05)
[2018-12-21 04:22] VITALS: BP 155/72
--- NOTE | 2018-12-21 04:49 | NUR ---
PTS IV CAME OUT EARLY IN THE EVENING AND TOOK [address] IV[address] JUNIOR UNDERWRITER TO PLACE IV THEN PT STARTING COMPLAINING OF SHARP PAIN COMING FROM THE IV EARLY THIS MORNING. SPOKE WITH DR. PALACIO, TELEPHONE ORDERS RECEIVED TO PLACE PICC LINE FOR RADIO INSTALLER AUTOMOBILE IV ABX AND TO LEAVE IV OUT UNTIL PICC LINE PLACEMENT.
[2018-12-21] MEDS: VENlafaxine XR 75 MG (EFFEXOR XR) CAP PO SCH (06:28)
[2018-12-21] MEDS: KCL 20 MEQ TAB (K-DUR) PO SCH (06:28)
[2018-12-21] MEDS: inSUlin ASPART (NovoLOG) 1 UNIT/0.01 ML (CHARGE PER UNIT) SC SCH ×3 (06:29→18:26)
[2018-12-21] MEDS: CATHETER FLUSH 10 ML SYR IV SCH ×3 (06:30→22:04)
[2018-12-21 07:41] LABS: INR 1.7 (0.8-1.4); PROTHROMBIN TIME PATIENT 20.7 SEC (12.2-14.7)
[2018-12-21 08:00] VITALS: BP 147/68
[2018-12-21] MEDS: ACETAMINOPHEN 500 MG TAB (TYLENOL) PO PRN (08:58)
[2018-12-21] MEDS: FUROSEMIDE 40 MG (LASIX) TAB PO SCH ×2 (08:59→22:04)
[2018-12-21] MEDS: ALLOPURINOL 100 MG (ZYLOPRIM) TAB PO SCH (08:59)
[2018-12-21] MEDS: GEMFIBROZIL 600 MG (LOPID) TAB PO SCH (08:59)
[2018-12-21] MEDS: hydrALAZINE (APRESOLINE) 25 MG TAB PO SCH ×3 (08:59→22:04)
[2018-12-21] MEDS: amLODIPine 10 MG (NORVASC) TAB PO SCH (08:59)
[2018-12-21] MEDS: CARVEDILOL 12.5 MG (COREG) TABLET PO SCH ×2 (08:59→22:04)
[2018-12-21] MEDS: ASPIRIN E.C. 81 MG (ECOTRIN) TAB PO SCH (09:00)
[2018-12-21] MEDS: DOCUSATE SODIUM 100 MG (COLACE) CAP PO SCH (09:53)
--- NOTE | 2018-12-21 10:26 | Diagnostic Imaging Report ---
INDICATION: Evaluate PICC line placement. FINDINGS: There is cardiomegaly. There is some venous congestion. There has been previous median sternotomy. There is no pleural effusion or pneumothorax. There is a right upper extremity PICC line. Tip appears to be in the superior vena cava although the distal aspect of the catheter is not well-visualized. IMPRESSION: Right upper extremity PICC line appears to be at least be in the superior vena cava although the distal tip is not well visualized due to underpenetration. Cardiomegaly and some central pulmonary venous congestion. Dictated by: Dictated on workstation # [id number]
--- NOTE | 2018-12-21 10:57 | NUR ---
STILL WAITING TO HEAR FROM PICC LINE RN ABOUT USING PICC LINE THAT SHE PLACED
--- NOTE | 2018-12-21 11:03 | NUR ---
CM/SS. Reviewed, EMR indicates amputation tentatively scheduled for . Following with intermittent review for next steps depending on patient progress.
--- NOTE | 2018-12-21 11:42 | Diagnostic Imaging Report ---
INDICATION: PICC line placement. TIME OF EXAMINATION: 11:04 AM. COMPARISON: Correlation is made with prior chest radiographs from earlier this same day. FINDINGS: An image of the upper right chest was obtained. There is a right upper extremity PICC line. The tip of the PICC line appears to overlie the SVC. No definite pneumothorax is detected. IMPRESSION: Right upper extremity PICC line placement, as described. Dictated by: Dictated on workstation # [id number]
--- NOTE | 2018-12-21 11:47 | NUR ---
NOTE THAT PICC LINE SIM NUÑEZ CALLED AND IT IS OK TO USE PICC LINE -PER XRAY -- OK TO USE -- ADVISED PHARMACY THAT WE HAD IV ACCESS THEY WILL REVAMP IV ANTBXS TIMES
[2018-12-21 12:00] VITALS: BP 152/68
--- NOTE | 2018-12-21 13:27 | Physical Therapy Progress Note ---
Therapy Progress Note Pt refuses PT as he did yesterday. Nurse reports pt will have amputation tomorrow (12/22). JOI DOAN [employer] WORKERS SUPERVISOR December 21, 2018 13:27
--- NOTE | 2018-12-21 14:21 | Progress Note ---
Subjective Time Seen by a Provider: 13:49 Subjective/Events-last exam Pt seen and examined, he has no complaints. His only question is what time is surgery tomorrow. Review of Systems General: No Chills, No Night Sweats Pulmonary: No Dyspnea, No Cough Cardiovascular: No: Chest Pain, Palpitations Gastrointestinal: No: Nausea, Vomiting, Abdominal Pain Objective Exam Vital Signs Date Time Temp Pulse Resp B/P (MAP) Pulse Ox O2 Delivery O2 Flow Rate FiO2 12/21/18 12:00 100.1 72 20 152/68 (96) 93 NIV CPAP 12/21/18 08:58 100.6 12/21/18 08:00 Nasal Cannula 4.00 12/21/18 08:00 100.7 80 22 147/68 (94) 94 NIV CPAP 12/21/18 07:00 78 12/21/18 04:22 99.7 76 20 155/72 (99) 7 NIV CPAP 12/21/18 01:00 73 12/21/18 00:19 98.3 73 20 152/67 (95) 96 NIV CPAP 12/20/18 23:45 Nasal Cannula 4.00 12/20/18 21:01 99.4 12/20/18 20:25 99.2 78 20 163/77 (105) 95 NIV CPAP 12/20/18 20:00 Nasal Cannula 4.00 12/20/18 19:00 81 12/20/18 16:21 98.9 78 22 138/65 (89) 91 NIV CPAP I & O 12/21/18 07:00 Intake Total 2680 ml Output Total 2200 ml Balance 480 ml Capillary Refill : Less Than 3 Seconds General Appearance: No Apparent Distress, Obese Respiratory: Chest Non Tender, Lungs Clear, Normal Breath Sounds, No Accessory Muscle Use, No Respiratory Distress Cardiovascular: Regular Rate, Rhythm, No Gallop, No Murmur, Other (Decreased pulses right leg) Gastrointestinal: normal bowel sounds, non tender, soft, no organomegaly, no pulsatile mass Extremity: Inflammation (Right foot is no worse, than yesterday), Pedal Edema, Slow Capillary Refill, Other (incision at area of where 1st toe was; slightly more open, not draining purulence) Neurologic/Psychiatric: Alert, Oriented x3, Normal Mood/Affect Results Lab Laboratory Tests 12/20/18 15:39: Glucometer 252H 12/20/18 20:58: Glucometer 255H 12/21/18 05:50: Glucometer 149H 12/21/18 07:09: Prothrombin Time 20.7H, INR Comment 1.7H 12/21/18 10:55: Glucometer 128H Microbiology 12/16/18 Blood Culture - Preliminary, Resulted No growth 12/16/18 Gram Stain - Final, Complete 12/16/18 Wound Culture - Final, Complete Staphylococcus aureus See Comments Assessment/Plan Assessment/Plan Assessment/Plan Right foot Cellulitis with Osteomyelitis of phalange Uncontrolled DM Obese Pt's right foot is not healing well; MRI unfortunately showed Osteomyelitis. Pt is scheduled for RIGHT BKA tomorrow, stopped coumadin and checking INR. Discussed risks and complications not limited to pain, bleeding, infection, scar and need for further procedure. All questions answered to his satisfaction. Unofortunately the osteomyelitis has spread to far and in order to go one joint space above a BKA is needed. Continue IV ABX. Clinical Quality Measures DVT/VTE Risk/Contraindication: Risk Factor Score Per Nursin RFS Level Per Nursing on Admit: 4+=Very High ARMEN MARTINS DO December 21, 2018 14:21
--- NOTE | 2018-12-21 15:02 | Progress Note-Hospitalist ---
Progress Note Progress Notes/Assess & Plan Date Seen 12/21/18 Time Seen by Provider: 15:02 Assessment & Plan The patient is scheduled for amputation tomorrow as eager to get on with it. The reduction in his insulin dosage eliminated a 40s and 50s. Physical exam: he is alert and oriented. He has BiPAP in place. Lungs are clear to auscultation. CV is regular. The right foot is in a dressing which is dry. The previous streaking above there has now cleared. Impression: Diabetes mellitus insulin-requiring. 2.morbid obesity. 3.peripheral neuropathy secondary to diabetes. 4.peripheral vascular disease secondary to diabetes. 5. Osteomyelitis right first metatarsal. Plan: Amputation tomorrow by CASSY Can MD December 21, 2018 15:02
[2018-12-21 15:52] VITALS: BP 132/90
[2018-12-21] MEDS: VANCOMYCIN 1,750 MG/NS 500 ML IVPB IV SCH ×2 (16:12)
[2018-12-21 20:00] VITALS: BP 137/77
[2018-12-21] MEDS: VALSARTAN 160 MG (DIOVAN) TABLET PO SCH (22:04)
[2018-12-21] MEDS: TAMSULOSIN 0.4 MG (FLOMAX) CAP PO SCH (22:04)
[2018-12-21] MEDS: FINASTERIDE (PROSCAR) 5 MG TAB PO SCH (22:04)
[2018-12-21] MEDS: AMITRIPTYLINE 25 MG (ELAVIL) TAB PO SCH (22:04)
[2018-12-21] MEDS: RT-ALBUTEROL/IPRATROPIUM 3 ML (DUONEB) VIAL INH SCH (22:40)
[2018-12-22] VITALS (18 sets, daily range): BP systolic 111–180; BP diastolic 58–86
[2018-12-22] MEDS: RT-ALBUTEROL/IPRATROPIUM 3 ML (DUONEB) VIAL INH PRN ×2 (00:36→15:55)
[2018-12-22] MEDS: RT-ALBUTEROL/IPRATROPIUM 3 ML (DUONEB) VIAL INH SCH ×6 (02:13→21:45)
[2018-12-22] MEDS: PIPERACILLIN/TAZO 4.5 GM/NS 100 ML IV SCH ×6 (05:04→20:12)
[2018-12-22] MEDS: VENlafaxine XR 75 MG (EFFEXOR XR) CAP PO SCH (06:13)
[2018-12-22] MEDS: KCL 20 MEQ TAB (K-DUR) PO SCH (06:13)
[2018-12-22] MEDS: inSUlin ASPART (NovoLOG) 1 UNIT/0.01 ML (CHARGE PER UNIT) SC SCH ×3 (06:13→15:57)
[2018-12-22] MEDS: CATHETER FLUSH 10 ML SYR IV SCH ×3 (06:13→21:29)
--- NOTE | 2018-12-22 08:05 | Physical Therapy Progress Note ---
Therapy Progress Note No PT today, patient is having surgery, an amputation. Will await new orders due to change in status. BETTY STRONG PT December 22, 2018 08:05
[2018-12-22] MEDS: hydrALAZINE (APRESOLINE) 25 MG TAB PO SCH ×3 (09:07→21:26)
[2018-12-22] MEDS: DOCUSATE SODIUM 100 MG (COLACE) CAP PO SCH (09:07)
[2018-12-22] MEDS: ALLOPURINOL 100 MG (ZYLOPRIM) TAB PO SCH (09:08)
[2018-12-22] MEDS: FUROSEMIDE 40 MG (LASIX) TAB PO SCH ×2 (09:08→21:26)
[2018-12-22] MEDS: amLODIPine 10 MG (NORVASC) TAB PO SCH (09:08)
[2018-12-22] MEDS: ASPIRIN E.C. 81 MG (ECOTRIN) TAB PO SCH (09:08)
[2018-12-22] MEDS: GEMFIBROZIL 600 MG (LOPID) TAB PO SCH (09:08)
[2018-12-22] MEDS: CARVEDILOL 12.5 MG (COREG) TABLET PO SCH ×2 (09:13→21:26)
--- NOTE | 2018-12-22 11:47 | Progress Note-Hospitalist ---
Progress Note Progress Notes/Assess & Plan Date Seen 12/22/18 Time Seen by Provider: 11:44 Assessment & Plan The patient is awaiting his amputation for later this afternoon. He has no new complaints. He is afebrile and his vital signs are stable. Physical exam: Lungs are clear to auscultation. CV is regular. Impression osteomyelitis right first metatarsal. 2.diabetes mellitus type II. 3.arteriosclerotic heart disease. 4.peripheral artery disease. Plan: Amputation by Dr. Bustillos .. CASSY PALACIO MD December 22, 2018 11:47
[2018-12-22] MEDS ORDERED: LACTATED RINGERS 1,000 ML IV PRN ×2 (14:03→16:31)
--- NOTE | 2018-12-22 14:46 | NUR ---
LAB HERE FOR STAT LABS PRIOR TO OR.
[2018-12-22 14:54] LABS: HEMOGLOBIN 7.7 G/DL (13.3-17.7); MEAN PLATELET VOLUME 9.1 FL (7.4-10.4); RED CELL DISTRIBUTION WIDTH 15.8 % (10.0-14.5); WHITE BLOOD COUNT 6.2 10^3/uL (4.3-11.0)
[2018-12-22 15:05] LABS: INR 1.4 (0.8-1.4); PROTHROMBIN TIME PATIENT 17.6 SEC (12.2-14.7)
[2018-12-22 15:10] LABS: CALCIUM 9.2 MG/DL (8.5-10.1); CREATININE SERUM 1.58 MG/DL (0.60-1.30); POTASSIUM 3.8 MMOL/L (3.6-5.0)
--- NOTE | 2018-12-22 15:14 | NUR ---
ANESTHESIA NOTIFIED LABS RESULTED.
[2018-12-22] MEDS ORDERED: NS IV 500 ML 500 ML IV ONE (15:30)
[2018-12-22] MEDS ORDERED: NS IV 500 ML 500 ML IV SCH (15:30)
[2018-12-22] MEDS ORDERED: fentaNYL INJECTION 100 MCG/2 ML AMP ONE (16:17)
[2018-12-22] MEDS ORDERED: MIDAZOLAM 2 MG/2 ML (VERSED) VIAL ONE (16:17)
--- NOTE | 2018-12-22 16:17 | NUR ---
TO OR PER BED. 1600 VANCO SENT WITH RN TO SURGERY. IV ZOSYN JUST COMPLETED.
--- NOTE | 2018-12-22 16:36 | Progress Note ---
Subjective Time Seen by a Provider: 16:32 Subjective/Events-last exam Pt down for RIGHT BKA, no questions. States he is ready for surgery Review of Systems General: No Chills, No Night Sweats Pulmonary: No Dyspnea, No Cough Cardiovascular: No: Chest Pain, Palpitations Objective Exam Vital Signs Date Time Temp Pulse Resp B/P (MAP) Pulse Ox O2 Delivery O2 Flow Rate FiO2 12/22/18 15:56 95 NIV CPAP 8.00 12/22/18 12:50 72 12/22/18 12:00 97.8 73 22 164/75 (104) 92 NIV CPAP 12/22/18 10:19 94 NIV CPAP 8.00 12/22/18 08:00 97.6 79 22 156/74 (101) 92 NIV CPAP 12/22/18 07:15 95 NIV CPAP 8.00 12/22/18 07:00 75 12/22/18 04:49 98.9 80 20 180/85 (116) 93 NIV CPAP 12/22/18 02:13 94 NIV CPAP 8.00 12/22/18 01:00 83 12/22/18 00:36 95 NIV CPAP 8.00 12/22/18 00:18 98.6 77 22 179/86 (117) 93 NIV CPAP 12/21/18 22:40 92 NIV CPAP 8.00 12/21/18 20:00 Nasal Cannula 8.00 12/21/18 20:00 98.9 79 20 137/77 (97) 94 NIV CPAP 12/21/18 19:00 76 12/21/18 17:46 82 90 I & O 12/22/18 07:00 Intake Total 1697.5 ml Output Total 3000 ml Balance -1302.5 ml Capillary Refill : Less Than 3 SecondsLess Than 3 Seconds General Appearance: No Apparent Distress, Obese Respiratory: Chest Non Tender, Lungs Clear, Normal Breath Sounds, No Accessory Muscle Use, No Respiratory Distress Cardiovascular: Regular Rate, Rhythm, No Gallop, No Murmur, Other (Decreased pulses right leg) Gastrointestinal: normal bowel sounds, non tender, soft, no organomegaly, no pulsatile mass Extremity: Inflammation (Right foot is no worse, than yesterday), Pedal Edema, Slow Capillary Refill, Other (incision at area of where 1st toe was; slightly m ore open, not draining purulence) Neurologic/Psychiatric: Alert, Oriented x3, Normal Mood/Affect Results Lab Laboratory Tests 12/21/18 20:58: Glucometer 125H 12/22/18 05:34: Glucometer 139H 12/22/18 11:49: Glucometer 139H 12/22/18 14:45: White Blood Count 6.2, Red Blood Count 2.59L, Hemoglobin 7.7L, Hematocrit 22L, Mean Corpuscular Volume 87, Mean Corpuscular Hemoglobin 30, Mean Corpuscular Hem oglobin Concent 34, Red Cell Distribution Width 15.8H, Platelet Count 206, Mean Platelet Volume 9.1, Prothrombin Time 17.6H, INR Comment 1.4, Sodium Level 139, Potassium Level 3.8, Chloride Level 105, Carbon Dioxide Level 23, Anion Gap 11, Blood Urea Nitrogen 19H, Creatinine 1.58H, Estimat Glomerular Filtration Rate 44, BUN/Creatinine Ratio 12, Glucose Level 126H, Calcium Level 9.2 12/22/18 16:07: Glucometer 145H Microbiology 12/16/18 Blood Culture - Preliminary, Resulted No growth 12/20/18 MRSA Screen - Final, Complete MRSA not isolated 12/16/18 Gram Stain - Final, Complete 12/16/18 Wound Culture - Final, Complete Staphylococcus aureus See Comments Assessment/Plan Assessment/Plan Assessment/Plan Right foot Cellulitis with Osteomyelitis of phalange Uncontrolled DM Obese Pt is scheduled for RIGHT BKA; Discussed risks and complications not limited to pain, bleeding, infection, scar and need for further procedure. All questions answered to his satisfaction. Clinical Quality Measures DVT/VTE Risk/Contraindication: Risk Factor Score Per Nursin RFS Level Per Nursing on Admit: 4+=Very High ARMEN MARTINS DO December 22, 2018 16:36
[2018-12-22] MEDS: VANCOMYCIN 1,750 MG/NS 500 ML IVPB IV SCH ×2 (16:55)
--- NOTE | 2018-12-22 17:53 | Progress Note-Post Operative ---
Post-Operative Progess Note Surgeon (s)/Flea Market Seller (s) Surgeon ARMEN MARTINS DO Flea Market Seller: Akira Pre-Operative Diagnosis Right foot Osteomyelitis Post-Operative Diagnosis same pending path Procedure & Operative Findings Date of Procedure 12/22/18 Procedure Performed/Findings Right Below the knee Amputation Anesthesia Type GET Estimated Blood Loss Estimated blood loss (mL): 100ml Specimens/Packing Specimens Removed right lower leg and foot ARMEN MARTINS DO December 22, 2018 17:53
[2018-12-22] MEDS ORDERED: SEVOFLURANE (ULTANE) 15 ML INHAL SOLN ONE ×3 (18:06→18:07)
[2018-12-22] MEDS ORDERED: LIDOCAINE PF 2% 5 ML (XYLOCAINE) VIAL ONE (18:06)
[2018-12-22] MEDS ORDERED: ONDANSETRON 4 MG/2 ML (SDV) Z0FRAN ONE (18:06)
[2018-12-22] MEDS ORDERED: proPOfol 200 MG/20 ML (DIPRIVAN) VIAL IV ONE (18:06)
[2018-12-22] MEDS ORDERED: morphine INJ 10 MG/ML 1ML (SYR OR VIAL) ONE (18:29)
[2018-12-22] MEDS ORDERED: HYDROmorphone 2 MG/ML VIAL (DILAUDID) ONE (18:38)
--- NOTE | 2018-12-22 19:25 | NUR ---
BACK TO FLOOR AT THIS TIME. PT ALERT AND ORIENT. DRESSING TO RIGHT LEG DRY AND INTACT. NO C/O AT THIS THIS TIME. WILL CONTINUE TO MONITOR.
[2018-12-22] MEDS ORDERED: HYDROmorphone 2 MG/ML VIAL (DILAUDID) IV ONE (19:30)
[2018-12-22] MEDS ORDERED: ONDANSETRON 4 MG/2 ML (SDV) Z0FRAN IVP PRN (19:30)
[2018-12-22] MEDS ORDERED: morphine INJ 10 MG/ML 1ML (SYR OR VIAL) IVP ONE (19:30)
[2018-12-22] MEDS: VALSARTAN 160 MG (DIOVAN) TABLET PO SCH (21:25)
[2018-12-22] MEDS: AMITRIPTYLINE 25 MG (ELAVIL) TAB PO SCH (21:26)
[2018-12-22] MEDS: FINASTERIDE (PROSCAR) 5 MG TAB PO SCH (21:26)
[2018-12-22] MEDS: TAMSULOSIN 0.4 MG (FLOMAX) CAP PO SCH (21:26)
[2018-12-23] MEDS: RT-ALBUTEROL/IPRATROPIUM 3 ML (DUONEB) VIAL INH SCH ×6 (02:30→22:05)
--- NOTE | 2018-12-23 03:00 | NUR ---
PT ATTEMPTS TO URINATE MULTIPLE TIMES AND IS UNABLE TO DO SO. BLADDER SCAN AT THIS TIME SHOWS 775ML IN BLADDER. DR. MARTINS CALLED AND INFORMED. ORDER TO STRAIGHT CATH.
[2018-12-23] MEDS: PIPERACILLIN/TAZO 4.5 GM/NS 100 ML IV SCH ×4 (03:50→12:26)
--- NOTE | 2018-12-23 03:50 | NUR ---
PT STRAIGHT CATH USING ASEPTIC TECHNIQUE. 850ML OF CLEAR YELLOW URINE RETURNED. PT TOLERATED WELL.
--- NOTE | 2018-12-23 04:06 | NUR ---
PT C/O PAIN 01/09. THIS RN OFFER TO GIVEN IV OR PO PAIN MEDICATION THAT IS ORDERED. PT STATES HE DOES NOT LIKE PAIN MEDICATION AND REFUSED TO TAKE IT.
[2018-12-23 04:59] VITALS: BP 167/74
[2018-12-23] MEDS: VENlafaxine XR 75 MG (EFFEXOR XR) CAP PO SCH (06:41)
[2018-12-23] MEDS: KCL 20 MEQ TAB (K-DUR) PO SCH (06:41)
[2018-12-23] MEDS: inSUlin ASPART (NovoLOG) 1 UNIT/0.01 ML (CHARGE PER UNIT) SC SCH ×3 (06:42→17:01)
[2018-12-23] MEDS: CATHETER FLUSH 10 ML SYR IV SCH ×3 (06:43→21:00)
[2018-12-23 08:00] VITALS: BP 178/48
--- NOTE | 2018-12-23 09:00 | Progress Note-Hospitalist ---
Progress Note Progress Notes/Assess & Plan Date Seen 12/23/18 Time Seen by Provider: 08:54 Assessment & Plan The patient had a BKA amputation on the right late yesterday afternoon. He seems a little bit hung over today by has no complaints. Physical exam. Lungs are clear to auscultation. CV is regular without murmur. The dressing is dry. Impression: Osteomyelitis right first metatarsal day 1 post amputation. 2.diabe andria with neuropathy. 3.arteriosclerotic heart disease intervention. 4.peripheral artery disease. CASSY PALACIO MD December 23, 2018 09:00
[2018-12-23] MEDS: ACETAMINOPHEN 500 MG TAB (TYLENOL) PO PRN ×2 (09:23→18:08)
[2018-12-23] MEDS: ALLOPURINOL 100 MG (ZYLOPRIM) TAB PO SCH (09:23)
[2018-12-23] MEDS: ASPIRIN E.C. 81 MG (ECOTRIN) TAB PO SCH (09:23)
[2018-12-23] MEDS: FUROSEMIDE 40 MG (LASIX) TAB PO SCH ×2 (09:23→20:58)
[2018-12-23] MEDS: amLODIPine 10 MG (NORVASC) TAB PO SCH (09:24)
[2018-12-23] MEDS: hydrALAZINE (APRESOLINE) 25 MG TAB PO SCH ×3 (09:24→20:59)
[2018-12-23] MEDS: GEMFIBROZIL 600 MG (LOPID) TAB PO SCH (09:24)
[2018-12-23] MEDS: CARVEDILOL 12.5 MG (COREG) TABLET PO SCH ×2 (09:24→20:58)
[2018-12-23] MEDS: DOCUSATE SODIUM 100 MG (COLACE) CAP PO SCH (09:24)
--- NOTE | 2018-12-23 09:37 | Anesthesia-General Post-Op ---
General Patient Condition Mental Status/LOC: Same as Preop Cardiovascular: Satisfactory Nausea/Vomiting: Absent Respiratory: Satisfactory Pain: Controlled Complications: Absent Post Op Complications Complications None Follow Up Care/Instructions Patient Instructions None needed. Anesthesia/Patient Condition Patient Condition Patient is doing well, no complaints, stable vital signs, no apparent adverse anesthesia problems. No complications reported per nursing. TYE DEAL CRNA December 23, 2018 09:37
--- NOTE | 2018-12-23 10:08 | Physical Therapy Daily Note ---
PT Daily Note-Current Subjective Pt agrees to sit EOB. While sitting up, expressed it felt good to be upright. Transfers Therapy Code Descriptions/Definitions Functional [place] Measure: 0=Not Assessed/NA 4=Minimal Assistance 1=Total Assistance 5=Supervision or Setup 2=Maximal Assistance 6=Modified [place] 3=Moderate Assistance 7=Complete [place] Therapy Quality Codes: 6 Independent with activity with or without an assistive device 5 Patient requires set up or clean up by helper. Patient completes activity by themselves 4 Supervision or touching assist (CGA). Thornton provide cues , steadying assist 3 The helper provides less than half the effort to complete the activity 2 The helper provides more than half the effort to complete the activity 1 Dependent. The helper does all the effort to complete an activity 7 Patient refused to complete or attempt activity 9 The patient did not perform the activity before the current illness or injury 88 Not attempted due to Medical conditions or safety concerns Transfers (B, C, W/C) (FIM): 1 (assist of 2 for transfer) Scootin Rollin Supine to/from Sit: 1 (assist of 2 to come to a sit; assist of 1 to lie down) Pt sat EOB with min to mod assist for trunk control and seated balance; skilled cues on activation of core musculature and addressing balance. As pt sat EOB, he was able to perform deep breathing, wash his face and drink some water. Worked on lung expansion and seated trunk control. Pt in bed post treatment with needs met. Weight Bearing Right Lower Extremity: Right Partial Weight Bearing Left Lower Extremity: Left Weight Bearing/Tolerated Assessment Current Status: Good Progress Post right AKA yesterday. He will benefti from skilled therapy services to promote upright mobiltiy and address functional transfers to restore mod indep activiyt level. He will possible require a slide board initially for transfers if he is unable to effectively stand using his left LE; he is obese which is a limiting factor with likely decreased strength and functional mobiltiy at recent PLOF. He will benefit from aggressive skilled services to improve strength and mobility. PT Short Term Goals Short Term Goals Time Frame: December 26, 2018 Wheelchair (FIM): 2 PT Chrome Plater Helper Goals Mcfp Goals PT Chrome Plater Helper Goals Time Frame: December 28, 2018 Transfers (B,C,W/C) (FIM): 4 Gait (FIM): 0 PT Plan Problem List Problem List: Activity Tolerance, Functional Strength, Safety, Balance, Transfer, Bed Mobility Treatment/Plan Treatment Plan: Continue Plan of Care Treatment Plan: Bed Mobility, Concurrent Therapy, Education, Functional Activity Farshad, Functional Strength, Gait, Safety, Therapeutic Exercise, Transfers Treatment Duration: December 26, 2018 Frequency: 1 time per month Estimated Hrs Per Day: .5 hour per day Patient and/or Family Agrees t: Yes Safety Risks/Education Patient Education: Transfer Techniques, Safety Issues Teaching Recipient: Patient Teaching Methods: Demonstration, Discussion Response to Teaching: Reinforcement Needed Discharge Recommendations Plan Use a rae to transfer to the chair this afternoon., Time/GCodes Time In: 850 Time Out: 924 Total Billed Treatment Time: 34 Total Billed Treatment visit FA 34 MARIA A DUBON PT December 23, 2018 10:08
--- NOTE | 2018-12-23 11:17 | Progress Note ---
Subjective Time Seen by a Provider: 10:55 Subjective/Events-last exam Pt seen and examined, only complaint is of min-mod leg pain. Review of Systems General: No Chills, No Night Sweats Pulmonary: No Dyspnea, No Cough Cardiovascular: No: Chest Pain, Palpitations Objective Exam Vital Signs Date Time Temp Pulse Resp B/P (MAP) Pulse Ox O2 Delivery O2 Flow Rate FiO2 12/23/18 09:56 100.0 12/23/18 09:23 100.2 12/23/18 08:30 Nasal Cannula 3.00 12/23/18 08:05 94 NIV CPAP 5.00 12/23/18 08:00 100.2 83 22 178/48 (91) 90 NIV CPAP 4.00 12/23/18 04:59 98.4 80 18 167/74 (105) 93 NIV CPAP 4.00 12/23/18 02:30 90 NIV CPAP 5.00 12/22/18 23:59 96.9 65 18 152/74 (100) 96 NIV CPAP 4.00 12/22/18 22:45 96.8 67 20 154/70 (98) 96 NIV CPAP 4.00 12/22/18 21:45 89 Nasal Cannula 3.00 12/22/18 20:45 97.4 62 24 163/75 (104) 96 Nasal Cannula 3.00 12/22/18 20:00 Nasal Cannula 3.00 12/22/18 19:35 97.7 62 24 136/67 (90) 95 Nasal Cannula 3.00 12/22/18 19:15 16 96 Nasal Cannula 3 12/22/18 19:10 97.5 18 96 Nasal Cannula 3 12/22/18 19:00 16 96 Nasal Cannula 3 12/22/18 18:50 16 96 Nasal Cannula 3 12/22/18 18:40 14 99 OxyMask 10 12/22/18 18:30 16 99 OxyMask 10 12/22/18 18:20 16 98 OxyMask 10 12/22/18 18:10 16 96 OxyMask 10 12/22/18 18:05 97.3 12 96 OxyMask 10 12/22/18 16:00 97.9 71 24 172/80 (110) 96 NIV CPAP 12/22/18 15:56 95 NIV CPAP 8.00 12/22/18 12:50 72 12/22/18 12:00 97.8 73 22 164/75 (104) 92 NIV CPAP I & O 12/23/18 07:00 Intake Total 1480 ml Output Total 1725 ml Balance -245 ml Capillary Refill : Less Than 3 SecondsLess Than 3 Seconds General Appearance: No Apparent Distress, Obese Respiratory: Chest Non Tender, Lungs Clear, Normal Breath Sounds, No Accessory Muscle Use, No Respiratory Distress Cardiovascular: Regular Rate, Rhythm, No Gallop, No Murmur, Other (Decreased pulses right leg) Gastrointestinal: normal bowel sounds, non tender, soft, no organomegaly, no pulsatile mass Extremity: Other (bandage around Right BKA, can keep one more day) Neurologic/Psychiatric: Alert, Oriented x3, Normal Mood/Affect Results Lab Laboratory Tests 12/22/18 11:49: Glucometer 139H 12/22/18 14:45: White Blood Count 6.2, Red Blood Count 2.59L, Hemoglobin 7.7L, Hematocrit 22L, Mean Corpuscular Volume 87, Mean Corpuscular Hemoglobin 30, Mean Corpuscular Hemoglobin Concent 34, Red Cell Distribution Width 15.8H, Platelet Count 206, Mean Platelet Volume 9.1, Prothrombin Time 17.6H, INR Comment 1.4, Sodium Level 139, Potassium Level 3.8, Chloride Level 105, Carbon Dioxide Level 23, Anion Gap 11, Blood Urea Nitrogen 19H, Creatinine 1.58H, Estimat Glomerular Filtration Rate 44, BUN/Creatinine Ratio 12, Glucose Level 126H, Calcium Level 9.2 12/22/18 16:07: Glucometer 145H 12/22/18 18:09: Glucometer 172H 12/22/18 20:45: Glucometer 181H 12/23/18 05:08: Glucometer 197H Microbiology 12/16/18 Blood Culture - Final, Complete No growth 12/20/18 MRSA Screen - Final, Complete MRSA not isolated 12/16/18 Gram Stain - Final, Complete 12/16/18 Wound Culture - Final, Complete Staphylococcus aureus See Comments Assessment/Plan Assessment/Plan Assessment/Plan Right foot Cellulitis with Osteomyelitis of phalange Uncontrolled DM Obese S/P RIGHT BKA ok to send back to [facility] and will see him as an outpt; set up Orthotic appt in a week or so. Clinical Quality Measures DVT/VTE Risk/Contraindication: Risk Factor Score Per Nursin RFS Level Per Nursing on Admit: 4+=Very High ARMEN MARTINS DO December 23, 2018 11:17
[2018-12-23 12:00] VITALS: BP 194/87
--- NOTE | 2018-12-23 13:24 | Occupational Therapy Eval ---
OT Evaluation-General/PLF Medical Diagnosis Admission Date December 16, 2018 at 16:00 Medical Diagnosis: Right Below the knee Amputation Onset Date: December 16, 2018 Therapy Diagnosis Therapy Diagnosis: impaired ADLs and mobility Height/Weight Height (Feet): 6 Height (Inches): 0.00 Weight (Pounds): 322 Weight (Ounces): 1.0 Precautions Precautions/Isolations: Contact Isolation, Fall Prevention Safety Interventions: None Weight Bear Status Weight Bearing Restriction: Non Weight Bearing Location Restriction: R LE Referral Physician: Ave Horton MD Referral Reason: Activity Tolerance, Self Care, Evaluation/Treatment, Strengthening/ROM Medical History Pertinent Medical History: Arthritis, CABG, CAD, COPD, DM, HTN, NM, Neuropathy Reviewed History: Yes Social History Home: Single Level Current Living Status: Alone Entry Into Home: Stairs With Railing Steps Into Home: 3 ADL-Prior Level of Function Therapy Code Descriptions/Definitions Functional [place] Measure: 0=Not Assessed/NA 4=Minimal Assistance 1=Total Assistance 5=Supervision or Setup 2=Maximal Assistance 6=Modified [place] 3=Moderate Assistance 7=Complete [place] Therapy Quality Codes: 6 Independent with activity with or without an assistive device 5 Patient requires set up or clean up by helper. Patient completes activity by themselves 4 Supervision or touching assist (CGA). [place] provide cues , steadying assist 3 The helper provides less than half the effort to complete the activity 2 The helper provides more than half the effort to complete the activity 1 Dependent. The helper does all the effort to complete an activity 7 Patient refused to complete or attempt activity 9 The patient did not perform the activity before the current illness or injury 88 Not attempted due to Medical conditions or safety concerns Functional Abilities and Goals: Independent: Patient completed the activities by him/herself, with or without an assistive device, with no assistance from a helper. Needed Some Help: Patient needed partial assistance from another person to complete activities. Dependent: A helper completed the activities for the patient. Unknown: Not Applicable: Self Care: Independent Functional Cognition: Independent Drive Self: No OT Current Status Subjective pt laying in bed upon OT arrival. p t agreed to OT evaluation session. pt demo increase agitation during tx session. Mental Status/Objective Patient Orientation: Normal For Age Current Glasses/Contacts: Yes Hearing Aids: Yes Dentures/Partials: Yes Hand Dominance: Right Upper Extremity ROM WFL Upper Extremity Coordination WFL Upper Extremity Sensation WFL Td UE Upper Extremity Strength Td UE 4/5 MMT ADL-Treatment Therapy Code Descriptions/Definitions Functional [place] Measure: 0=Not Assessed/NA 4=Minimal Assistance 1=Total Assistance 5=Supervision or Setup 2=Maximal Assistance 6=Modified [place] 3=Moderate Assistance 7=Complete [place] Therapy Quality Codes: 6 Independent with activity with or without an assistive device 5 Patient requires set up or clean up by helper. Patient completes activity by themselves 4 Supervision or touching assist (CGA). [place] provide cues , steadying assist 3 The helper provides less than half the effort to complete the activity 2 The helper provides more than half the effort to complete the activity 1 Dependent. The helper does all the effort to complete an activity 7 Patient refused to complete or attempt activity 9 The patient did not perform the activity before the current illness or injury 88 Not attempted due to Medical conditions or safety concerns pt laying in bed. pt stated he had to have BM. bedpan placed secondary to pt being Carla lift and began to have incontinence. pt dem ability to roll to right side with MOD A and hand over hand placement of UE. pt then stated he was unable to hold urinal by self. pt education on increasing independence by using urinal by self secondary to having full UE ROM/ strength. pt then forcefully grabs urinal and perform ability to use urinal independently while in bed. pt is DEP for UB/ LB dressing and requires MAX VC for encouragement to complete tasks. . Education OT Patient Education: Progress toward Goal/Update tx plan, Purpose of tx/functional activities Teaching Recipient: Patient Teaching Methods: Discussion Response to Teaching: Verbalize Understanding OT Short Term Goals Short Term Goals Grooming(FIM): 5 Bathing(FIM): 4 Toileting(FIM): 4 Transfers (B,C,W/C) (FIM): 3 Toilet/Commode Transfer(FIM): 3 1=Demonstrate adherence to instructed precautions during ADL tasks. 2=Patient will verbalize/demonstrate understanding of assistive devices/modifications for ADL. 3=Patient will improve strength/tolerance for activity to enable patient to perform ADL's. OT Alf Goals Marker Shipments Goals Grooming(FIM): 6 Bathing(FIM): 5 Toileting(FIM): 5 Transfers (B,C,W/C) (FIM): 5 Toilet/Commode Transfer(FIM): 5 1=Demonstrate adherence to instructed precautions during ADL tasks. 2=Patient will verbalize/demonstrate understanding of assistive devices/modifications for ADL. 3=Patient will improve strength/tolerance for activity to enable patient to perform ADL's. OT Education/Plan Problem List/Assessment Assessment: Decreased Activ Tolerance, Decreased Safety Aware, Decreased UE Strength, Dependent Transfers, Impaired Bed Mobility, Impaired Funct Balance, Impaired I ADL's, Impaired Self-Care Skills pt presents with functional limitations affecting area of ADL/ functional transfers. pt would benefit from OT services to increase independence with ADLS/ functional transfers. recommended d/c to SNF when medically stable. Discharge Recommendations Plan/Recommendations: Continue POC Therapy D/C Recommendations: 24 hr Supervision, Intermediate (TCU/NH) Target Placement SNF Treatment Plan/Plan of Care Treatment,Training & Education: Yes Patient would benefit from OT for education, treatment and training to promote independence in ADL's, mobility, safety and/or upper extremity function for ADL's. Plan of Care: ADL Retraining, Caregiver Training, Functional Mobility, Group Exercise/Act as Ind, UE Funct Exercise/Act Treatment Duration: Jan 13, 2019 Frequency: 4 times per week (4-5 times per week) Estimated Hrs Per Day: .25 hour per day Rehab Potential: Guarded Time/GCodes Start Time: 13:00 Stop Time: 13:15 Billed Treatment Time EVM 15 minutes GAMA SALAZAR OT December 23, 2018 13:24
--- NOTE | 2018-12-23 14:13 | Physical Therapy Daily Note ---
PT Daily Note-Current Subjective Agrees to get up to the chair. Wants to sit EOB first to try to urinate. Transfers Therapy Code Descriptions/Definitions Functional [place] Measure: 0=Not Assessed/NA 4=Minimal Assistance 1=Total Assistance 5=Supervision or Setup 2=Maximal Assistance 6=Modified [place] 3=Moderate Assistance 7=Complete [place] Therapy Quality Codes: 6 Independent with activity with or without an assistive device 5 Patient requires set up or clean up by helper. Patient completes activity by themselves 4 Supervision or touching assist (CGA). [place] provide cues , steadying assist 3 The helper provides less than half the effort to complete the activity 2 The helper provides more than half the effort to complete the activity 1 Dependent. The helper does all the effort to complete an activity 7 Patient refused to complete or attempt activity 9 The patient did not perform the activity before the current illness or inj ury 88 Not attempted due to Medical conditions or safety concerns Weight Bearing Right Lower Extremity: Right Partial Weight Bearing Left Lower Extremity: Left Weight Bearing/Tolerated Treatments Pt transferred sup to sit EOB with max assist. Sat EoB with CGA. Attempted sit to stand x 2 as pt wanted to try to stand. Unable to effectively or safely stand with 3 people assisting. Pt returned to supine with mod assist. Carla sling applied. Pt able to assist with rolling to place carla sling with mod assist. Carla transfer to the chair. Pt able to assist in scooting back in chair once upright. Up in chair post treatment with needs met. Nurse aide aware he is in the chair. Assessment Current Status: Good Progress Pt did better with sit to from supine and rolling this afternoon. Tolerated up to chair well. PT Short Term Goals Short Term Goals Time Frame: December 26, 2018 Transfers (B,C,W/C) (FIM): 3 Wheelchair (FIM): 2 PT Detention Goals Detention Goals PT Industrial Relations Manager Goals Time Frame: December 28, 2018 Transfers (B,C,W/C) (FIM): 4 Gait (FIM): 0 PT Plan Problem List Problem List: Activity Tolerance, Functional Strength, Safety, Balance, Transfer, Bed Mobility Treatment/Plan Treatment Plan: Continue Plan of Care Treatment Plan: Bed Mobility, Concurrent Therapy, Education, Functional Activity [place], Functional Strength, Gait, Safety, Therapeutic Exercise, Transfers Treatment Duration: December 26, 2018 Frequency: 1 time per month Estimated Hrs Per Day: .5 hour per day Patient and/or Family Agrees t: Yes Safety Risks/Education Patient Education: Transfer Techniques, Safety Issues Teaching Recipient: Patient Teaching Methods: Demonstration, Discussion Response to Teaching: Reinforcement Needed Time/GCodes Time In: 1330 Time Out: 1408 Total Billed Treatment Time: 38 Total Billed Treatment visit FA 38 MARIA A DUBON PT December 23, 2018 14:13
--- NOTE | 2018-12-23 14:55 | NUR ---
DR PHIPPS NOTIFIED BY THIS RN OF PT BLADDER SCAN OF 350 ML AND OUTPUT OF 100ML IN 8 HOURS. NEW ORDER RECEIVED TO PLACE OVER FOR STRAIGHT CATH FOR RESIDUAL GREATER THAN 300.
--- NOTE | 2018-12-23 15:19 | NUR ---
CM/SS. Visited with patient sister/POA Zofia Pulido. She confirmed he was at [facility] prior to admission. Likely an IRF candidate; otherwise, return to [facility] for skilled care. Zofia Pulido Patient's son Rafita Newberry is Medical POA along with Zofia, he will be away for 7-10 days. Zofia should be contacted for any issues during this time. She is very supportive of patient and participates in his care and planning on his behalf.
--- NOTE | 2018-12-23 15:29 | NUR ---
PT BACK TO BED VIA AYO. PT STATED THE NEED TO URINATE WHILE LIFTED IN AYO, RESULT 400 ML. THIS RN WILL CONTINUE TO MONITOR PT I/O STATUS.
[2018-12-23 16:00] VITALS: BP 154/73
[2018-12-23] MEDS: VANCOMYCIN 1,750 MG/NS 500 ML IVPB IV SCH ×2 (16:12)
[2018-12-23] MEDS: morphine INJ 4 MG/ML 1 ML (VIAL/SYRINGE) IVP PRN ×2 (19:29→23:19)
[2018-12-23 20:00] VITALS: BP 148/71
--- NOTE | 2018-12-23 20:38 | OPERATIVE REPORT ---
DATE OF SERVICE: 12/22/2018 PREOPERATIVE DIAGNOSES: Osteomyelitis of the right foot. POSTOPERATIVE DIAGNOSIS: Osteomyelitis of the right foot, pending pathology. PROCEDURE: Right below the knee amputation. SURGEON: Edgar Bustillos DO. SENIOR DATABASE PROGRAMMER: Per Champion DO. ANESTHESIA: General endotracheal tube. SPECIMEN: Distal portion of right lower extremity and foot. BLOOD LOSS: Less than 100 mL. FLUIDS: Per anesthesia. POSTOPERATIVE CONDITION: Stable. INDICATION FOR PROCEDURE: The patient is a 68-year-old male who unfortunately had a previous toe amputation, but repeat cellulitis and x-ray and MRI showed osteomyelitis of the phalangeal going up into the foot. Unfortunately, this required a right BKA. FINDINGS: The patient had a right BKA performed without any difficulty. PROCEDURE NOTE: After informed consent was obtained, the patient was brought to the operating room, placed on table in supine position. He was sterilely prepped and draped in normal fashion as well as a tourniquet placed on his right upper thigh. The tourniquet was then turned up and we then made a fish mouth type incision approximately 2 handbreadth below the tibial plateau, first drawn on the skin to create this and then used the Bovie electrocautery to cut the skin down through the skin into subcutaneous tissue, then deepened down to subcutaneous tissue with Bovie electrocautery down to the muscle, then incised the muscle with Bovie electrocautery. Coming across larger vessels, we were able to clamp this with a hemostat and then tie, continue to come across to muscle and tissue until we got to the tibia. We used a bone saw at about one handbreadth below the tibial plateau to cut the bone, rasp the bone a little bit with a rasper and then continued down and found the fibula as well and then came across this with a bone saw. Again, countering the deep nerves and vessels and tied these off with 0 Vicryl ties. Cut this across the back of the skin with a Bovie electrocautery as well and then able to completely remove the distal portion of the right lower extremity, passed this off the table. Cut off some of the muscle to be able to close this incision, unlodge the tourniquet and to allow a little bit of bleeding and found this bleeding stopped them with Bovie electrocautery. Large vessels were tied with 3-0 Vicryl ties. Once we had controlled the bleeding, we then elected to close the incision with 0 Prolene sutures. Used vertical mattress sutures to close, approximately 8 sutures were used and then in between closed with goran. Then placed a Xeroform gauze and then ABDs and then wrapped with a Kerlix and then a Coban dressing. The patient tolerated the procedure and he was transferred to the recovery room in stable condition. Sponge, instrument and needle counts were correct at the end of the case. Dr. Champion assisted in this case helping to make incisions, close the incisions, identifying anatomy and cut some of this tissue. Job ID: [id number] DocumentID: [id number] Dictated Date: 12/23/2018 11:51:06 Oil Well Engineer Date: 12/23/2018 20:38:28 Dictated By: DO MAURISIO ESPINOZA
[2018-12-23] MEDS: VALSARTAN 160 MG (DIOVAN) TABLET PO SCH (20:58)
[2018-12-23] MEDS: FINASTERIDE (PROSCAR) 5 MG TAB PO SCH (20:58)
[2018-12-23] MEDS: TAMSULOSIN 0.4 MG (FLOMAX) CAP PO SCH (20:58)
[2018-12-23] MEDS: AMITRIPTYLINE 25 MG (ELAVIL) TAB PO SCH (20:58)
[2018-12-23] MEDS: HYDROcodone/APAP 5 MG/325 MG (LORTAB) TAB PO PRN (21:09)
--- NOTE | 2018-12-23 21:40 | NUR ---
Dr. Mai notified of pt's refusal to take HS Levemir 30 units (accucheck at 139). No new orders rec.
[2018-12-24] VITALS (7 sets, daily range): BP systolic 111–159; BP diastolic 44–74
[2018-12-24] MEDS: RT-ALBUTEROL/IPRATROPIUM 3 ML (DUONEB) VIAL INH SCH ×6 (01:00→23:25)
[2018-12-24] MEDS: HYDROcodone/APAP 5 MG/325 MG (LORTAB) TAB PO PRN ×3 (06:32→14:19)
[2018-12-24] MEDS: inSUlin ASPART (NovoLOG) 1 UNIT/0.01 ML (CHARGE PER UNIT) SC SCH ×3 (06:32→18:08)
[2018-12-24] MEDS: CATHETER FLUSH 10 ML SYR IV SCH ×3 (06:32→20:04)
[2018-12-24] MEDS: KCL 20 MEQ TAB (K-DUR) PO SCH (06:32)
[2018-12-24] MEDS: VENlafaxine XR 75 MG (EFFEXOR XR) CAP PO SCH (06:32)
[2018-12-24] MEDS: hydrALAZINE (APRESOLINE) 25 MG TAB PO SCH ×3 (10:03→20:03)
[2018-12-24] MEDS: FUROSEMIDE 40 MG (LASIX) TAB PO SCH ×2 (10:03→20:03)
[2018-12-24] MEDS: GEMFIBROZIL 600 MG (LOPID) TAB PO SCH (10:03)
[2018-12-24] MEDS: ASPIRIN E.C. 81 MG (ECOTRIN) TAB PO SCH (10:04)
[2018-12-24] MEDS: amLODIPine 10 MG (NORVASC) TAB PO SCH (10:04)
[2018-12-24] MEDS: CARVEDILOL 12.5 MG (COREG) TABLET PO SCH ×2 (10:04→20:03)
[2018-12-24] MEDS: DOCUSATE SODIUM 100 MG (COLACE) CAP PO SCH (10:04)
[2018-12-24] MEDS: ALLOPURINOL 100 MG (ZYLOPRIM) TAB PO SCH (10:04)
--- NOTE | 2018-12-24 12:03 | Progress Note-Hospitalist ---
Subjective HPI/CC On Admission Date Seen by Provider: December 24, 2018 Time Seen by Provider: 11:58 This 68-year-old white male status post amputation of right great toe approximately one month ago with a slow uncomplicated recovery from this. Per the sister it's never really looked very good the removal of the sutures was delayed because of the slow healing process. Appreciate Dr. Bustillos's input. The foot is very erythematous red and swollen and hot. The patient had an temperature of 101 at [facility] where he has been residing for wound care. Patient is awake and oriented as to the history. Subjective/Events-last exam Patient reports she's feeling better than he has a long time currently voicing no complaints. He is wearing BiPAP and appeared to be in no acute distress with no difficulty taking it off during the interview. He voices no complaints. Objective Exam Vital Signs Vital Signs Date Time Temp Pulse Resp B/P (MAP) Pulse Ox O2 Delivery O2 Flow Rate FiO2 12/24/18 10:28 93 Nasal Cannula 4.00 12/24/18 08:00 98.2 66 20 111/44 (66) Capillary Refill : Less Than 3 SecondsLess Than 3 Seconds General Appearance: No Apparent Distress, Obese Respiratory: Chest Non Tender, Lungs Clear, Normal Breath Sounds, No Accessory Muscle Use, No Respiratory Distress Cardiovascular: Regular Rate, Rhythm, No Gallop, No Murmur, Other (Decreased pulses right leg) Gastrointestinal: Normal Bowel Sounds, No Organomegaly, No Pulsatile Mass, Non Tender, Soft Back: Normal Inspection Extremity: Other (bandage around Right BKA, appears clean left foot unremarkable other than diminished sensation.) Neurologic/Psychiatric: Alert, Oriented x3, Normal Mood/Affect Results/Procedures Lab Patient resulted labs reviewed. Imaging: Reviewed Imaging Report Assessment/Plan Assessment and Plan Assess & Plan/Chief Complaint A/P 1. Status post right BKA for chronic osteomyelitis aggravated by long- standing likely poorly controlled diabetes. Condition significantly improved. 2. Type II diabetes mellitus insulin requiring under improved control secondary to BKA continue to monitor. The seated medical problems secondary to diabetes include included stage III chronic renal disease and significant diabetic peripheral neuropathy which appear to be stable. Clinical Quality Measures DVT/VTE Risk/Contraindication: Risk Factor Score Per Nursin RFS Level Per Nursing on Admit: 4+=Very High ANEL PHIPPS MD December 24, 2018 12:03
--- NOTE | 2018-12-24 12:20 | Physical Therapy Progress Note ---
Therapy Progress Note Pt in bed with BiPap in place. Pt declined to participate with therapy despite education/encouragement to get OOB. Pt states, "I took my pain meds this morning and I'm just really groggy". Pt reports he plans to get up to the BSC with nursing later today; encouraged to get up to chair after that. Pt agrees. TINY TRAN DPT December 24, 2018 12:20
--- NOTE | 2018-12-24 14:30 | NUR ---
AGITATED AND CONFUSED. TRYING TO GET UP. DR. PHIPPS NOTIFIED AND ORDERS REC'D. PT HAD REMOVED OXYGEN AND IT WAS REPLACED.
[2018-12-24] MEDS ORDERED: HALOPERIDOL 5 MG/ML (HALDOL) AMP IV ONE (14:45)
[2018-12-24] MEDS ORDERED: HALOPERIDOL 5 MG/ML (HALDOL) AMP IV PRN (14:45)
--- NOTE | 2018-12-24 14:45 | NUR ---
HALDOL 5MG IV FOR AGITATION. RT HERE FOR RX. SISTER JACQUELYN NOTIFIED OF CHANGE IN MENTATION.
--- NOTE | 2018-12-24 15:20 | Progress Note ---
Subjective Date Seen by a Provider: December 24, 2018 Time Seen by a Provider: 10:52 Subjective/Events-last exam patient states she's doing okay. His pain is controlled. He is getting better relief with the oral pain medication he states as lasting longer. He denies any fever sweats chills shortness of breath or chest pain. Objective Exam Vital Signs Date Time Temp Pulse Resp B/P (MAP) Pulse Ox O2 Delivery O2 Flow Rate FiO2 12/24/18 14:47 64 92 36 12/24/18 14:44 92 NIV CPAP 4.00 12/24/18 12:00 98.2 64 20 121/60 (80) 94 Room Air 12/24/18 10:28 93 Nasal Cannula 4.00 12/24/18 08:00 98.2 66 20 111/44 (66) 95 NIV CPAP 4.00 12/24/18 07:07 94 NIV CPAP 4.00 12/24/18 04:00 96.9 67 20 159/74 (102) 93 NIV CPAP 4.00 12/24/18 01:00 93 Nasal Cannula 4.00 12/24/18 00:00 96.4 66 20 131/62 (85) 94 NIV CPAP 4.00 12/23/18 22:05 94 Nasal Cannula 4.00 12/23/18 20:50 NIV CPAP 4.00 12/23/18 20:00 99.4 70 18 148/71 (96) 93 NIV CPAP 4.00 12/23/18 18:15 95 Nasal Cannula 4.00 12/23/18 16:00 99.3 72 18 154/73 (100) 93 NIV CPAP 4.00 12/23/18 15:30 97 Nasal Cannula 4.00 I & O 12/24/18 07:00 Intake Total 3417.5 ml Output Total 2175 ml Balance 1242.5 ml Capillary Refill : Less Than 3 SecondsLess Than 3 Seconds General Appearance: No Apparent Distress, Obese HEENT: PERRL/EOMI, Normal ENT Inspection Respiratory: Chest Non Tender, No Accessory Muscle Use, No Respiratory Distress Cardiovascular: Regular Rate, Rhythm, No Gallop, No Murmur, Other (Decreased pulses right leg) Gastrointestinal: normal bowel sounds, non tender, soft, no organomegaly, no pulsatile mass Extremity: Other (bandage around Right BKA clean) Neurologic/Psychiatric: Alert, Oriented x3, Normal Mood/Affect Results Lab Laboratory Tests 12/23/18 16:29: Glucometer 236H 12/23/18 20:45: Glucometer 139H 12/24/18 05:22: Glucometer 152H 12/24/18 11:25: Glucometer 187H 12/24/18 14:48: Glucometer 157H Microbiology 12/16/18 Blood Culture - Final, Complete No growth 12/20/18 MRSA Screen - Final, Complete MRSA not isolated 12/16/18 Gram Stain - Final, Complete 12/16/18 Wound Culture - Final, Complete Staphylococcus aureus See Comments Assessment/Plan Assessment/Plan Assessment/Plan Right foot Cellulitis with Osteomyelitis of phalange Uncontrolled DM Obese S/P RIGHT BKA ok to send back to [facility] once medically cleared and will see Dr. Bustillos as an outpt; set up Orthotic appt in a week or so. Clinical Quality Measures DVT/VTE Risk/Contraindication: Risk Factor Score Per Nursin RFS Level Per Nursing on Admit: 4+=Very High SHANICE WINCHESTER DO December 24, 2018 15:20
[2018-12-24 15:23] LABS: BASOPHILS % (AUTO) 0 % (0-10); EOSINOPHILS # (AUTO) 0.2 10^3/uL (0.0-0.3); EOSINOPHILS % (AUTO) 2 % (0-10); HEMATOCRIT 21 % (40-54); HEMOGLOBIN 7.2 G/DL (13.3-17.7); LYMPHOCYTES % (AUTO) 13 % (12-44); MEAN CORPUSCULAR HEMOGLOBIN 29 PG (25-34); MEAN CORPUSCULAR HGB CONC 34 G/DL (32-36); MEAN CORPUSCULAR VOLUME 87 FL (80-99); MEAN PLATELET VOLUME 9.9 FL (7.4-10.4); MONOCYTES # (AUTO) 0.8 X 10^3 (0.0-1.0); MONOCYTES % (AUTO) 11 % (0-12); NEUTROPHILS # (AUTO) 5.3 X 10^3 (1.8-7.8); NEUTROPHILS % (AUTO) 74 % (42-75); PLATELET COUNT 208 10^3/uL (130-400); RED CELL DISTRIBUTION WIDTH 15.8 % (10.0-14.5); WHITE BLOOD COUNT 7.2 10^3/uL (4.3-11.0)
[2018-12-24 15:48] LABS: ALBUMIN 3.1 GM/DL (3.2-4.5); BILIRUBIN,TOTAL 0.3 MG/DL (0.1-1.0); CALCIUM 8.7 MG/DL (8.5-10.1); CREATININE SERUM 1.72 MG/DL (0.60-1.30); POTASSIUM 3.6 MMOL/L (3.6-5.0); TOTAL PROTEIN 6.4 GM/DL (6.4-8.2)
--- NOTE | 2018-12-24 16:00 | NUR ---
DR. PHIPPS NOTIFIED OF ABNORMAL LABS INCLUDING HGB 7.2. NO NEW ORDERS.
[2018-12-24] MEDS: VANCOMYCIN 1,750 MG/NS 500 ML IVPB IV SCH ×2 (16:43)
[2018-12-24] MEDS: AMITRIPTYLINE 25 MG (ELAVIL) TAB PO SCH (20:03)
[2018-12-24] MEDS: TAMSULOSIN 0.4 MG (FLOMAX) CAP PO SCH (20:03)
[2018-12-24] MEDS: VALSARTAN 160 MG (DIOVAN) TABLET PO SCH (20:03)
[2018-12-24] MEDS: FINASTERIDE (PROSCAR) 5 MG TAB PO SCH (20:03)
[2018-12-25] VITALS: BP 136/62
[2018-12-25] MEDS: RT-ALBUTEROL/IPRATROPIUM 3 ML (DUONEB) VIAL INH SCH ×6 (03:10→21:59)
[2018-12-25 04:48] VITALS: BP 157/75
[2018-12-25] MEDS: VENlafaxine XR 75 MG (EFFEXOR XR) CAP PO SCH (06:44)
[2018-12-25] MEDS: inSUlin ASPART (NovoLOG) 1 UNIT/0.01 ML (CHARGE PER UNIT) SC SCH ×3 (06:44→18:00)
[2018-12-25] MEDS: KCL 20 MEQ TAB (K-DUR) PO SCH (06:44)
[2018-12-25] MEDS: CATHETER FLUSH 10 ML SYR IV SCH ×3 (06:45→20:11)
[2018-12-25 08:00] VITALS: BP 133/60
[2018-12-25] MEDS: ALLOPURINOL 100 MG (ZYLOPRIM) TAB PO SCH (09:39)
[2018-12-25] MEDS: GEMFIBROZIL 600 MG (LOPID) TAB PO SCH (09:39)
[2018-12-25] MEDS: FUROSEMIDE 40 MG (LASIX) TAB PO SCH ×2 (09:39→20:11)
[2018-12-25] MEDS: DOCUSATE SODIUM 100 MG (COLACE) CAP PO SCH (09:39)
[2018-12-25] MEDS: CARVEDILOL 12.5 MG (COREG) TABLET PO SCH ×2 (09:39→20:10)
[2018-12-25] MEDS: amLODIPine 10 MG (NORVASC) TAB PO SCH (09:39)
[2018-12-25] MEDS: hydrALAZINE (APRESOLINE) 25 MG TAB PO SCH ×3 (09:39→20:11)
[2018-12-25] MEDS: ASPIRIN E.C. 81 MG (ECOTRIN) TAB PO SCH (09:39)
[2018-12-25 12:00] VITALS: BP 139/66
--- NOTE | 2018-12-25 12:00 | NUR ---
DR. WINCHESTER HERE AND STUMP DRESSING CHANGED.
--- NOTE | 2018-12-25 13:40 | Progress Note-Hospitalist ---
Subjective HPI/CC On Admission Date Seen by Provider: December 25, 2018 Time Seen by Provider: 13:38 This 68-year-old white male status post amputation of right great toe approximately one month ago with a slow uncomplicated recovery from this. Per the sister it's never really looked very good the removal of the sutures was delayed because of the slow healing process. Appreciate Dr. Bustillos's input. The foot is very erythematous red and swollen and hot. The patient had an temperature of 101 at [facility] where he has been residing for wound care. Patient is awake and oriented as to the history. Subjective/Events-last exam Patient was awake and alert today. Yesterday evening he did become agitated and confused all the required 5 mg of Haldol with resolution of agitation. He voices no complaints this morning is oriented 2 and appears to be in no acute distress. He denies any significant discomfort at the stump site and is had no night sweats chills or fever with fair appetite and reasonable diabetic control. Objective Exam Vital Signs Vital Signs Date Time Temp Pulse Resp B/P (MAP) Pulse Ox O2 Delivery O2 Flow Rate FiO2 12/25/18 11:32 95 NIV CPAP 5.00 12/25/18 08:00 98.2 75 18 133/60 (84) 12/24/18 14:47 36 Capillary Refill : Less Than 3 SecondsLess Than 3 Seconds General Appearance: No Apparent Distress, Obese HEENT: PERRL/EOMI, Normal ENT Inspection Respiratory: Chest Non Tender, No Accessory Muscle Use, No Respiratory Distress Cardiovascular: Regular Rate, Rhythm, No Gallop, No Murmur, Other (Decreased pulses right leg) Gastrointestinal: Normal Bowel Sounds, No Organomegaly, No Pulsatile Mass, Non Tender, Soft Back: Normal Inspection Extremity: Other (bandage around Right BKA clean) Neurologic/Psychiatric: Alert, Oriented x3, Normal Mood/Affect Results/Procedures Lab Laboratory Tests 12/24/18 15:15 Patient resulted labs reviewed. Imaging: Reviewed Imaging Report Assessment/Plan Assessment and Plan Assess & Plan/Chief Complaint A/P 1. Status post right BKA for chronic osteomyelitis aggravated by long- standing likely poorly controlled diabetes. Condition significantly improved. 2. Type II diabetes mellitus insulin requiring under improved control secondary to BKA continue to monitor. The seated medical problems secondary to diabetes include included stage III chronic renal disease and significant diabetic peripheral neuropathy which appear to be stable. 3. Delirium multifactorial currently resolved no evidence for ongoing infection. 4. Anemia likely combined chronic inflammation of chronic renal disease if patient drops down below 7 we'll transfuse 1 unit of packed cells. Repeat CBC a nd BMP in the morning. Clinical Quality Measures DVT/VTE Risk/Contraindication: Risk Factor Score Per Nursin RFS Level Per Nursing on Admit: 4+=Very High ANEL PHIPPS MD December 25, 2018 13:40
--- NOTE | 2018-12-25 14:20 | Progress Note ---
Subjective Date Seen by a Provider: December 25, 2018 Time Seen by a Provider: 11:53 Subjective/Events-last exam patient states is doing okay. His pain is controlled. He has some slight agitation less like this is resolved. Patient denies any new complaints. Denies any nausea vomiting fever sweats chills shortness of breath or chest pain. Objective Exam Vital Signs Date Time Temp Pulse Resp B/P (MAP) Pulse Ox O2 Delivery O2 Flow Rate FiO2 12/25/18 12:00 99.0 77 18 139/66 (90) 92 NIV CPAP 4.00 12/25/18 11:32 95 NIV CPAP 5.00 12/25/18 08:00 98.2 75 18 133/60 (84) 94 NIV CPAP 4.00 12/25/18 07:50 95 NIV CPAP 5.00 12/25/18 07:36 NIV CPAP 4.00 12/25/18 04:48 98.5 70 16 157/75 (102) 97 Room Air 12/25/18 03:10 95 NIV CPAP 5.00 12/25/18 00:00 97.3 65 20 136/62 (86) 94 Room Air 12/24/18 23:25 92 NIV CPAP 5.00 12/24/18 20:10 NIV CPAP 4.00 12/24/18 20:01 97.6 66 20 145/64 (91) 93 Room Air 12/24/18 18:43 93 Room Air 12/24/18 16:00 97.1 61 20 140/65 (90) 96 NIV CPAP 4.00 12/24/18 14:47 64 92 36 12/24/18 14:44 92 NIV CPAP 4.00 I & O 12/25/18 07:00 Intake Total 2107.5 ml Output Total 1500 ml Balance 607.5 ml Capillary Refill : Less Than 3 SecondsLess Than 3 Seconds General Appearance: No Apparent Distress, Obese HEENT: PERRL/EOMI, Normal ENT Inspection Respiratory: Chest Non Tender, No Accessory Muscle Use, No Respiratory Distress Cardiovascular: Regular Rate, Rhythm, No Gallop, No Murmur, Other (Decreased pulses right leg) Gastrointestinal: normal bowel sounds, non tender, soft, no organomegaly, no pulsatile mass Extremity: Other (right BKA incisions clean dry and intact small blister on the anterior surface but no signs of infection) Neurologic/Psychiatric: Alert, Oriented x3, Normal Mood/Affect Skin: Normal Color, Warm/Dry Results Lab Laboratory Tests 12/24/18 14:48: Glucometer 157H 12/24/18 15:15: White Blood Count 7.2, Red Blood Count 2.45L, Hemoglobin 7.2L, Hematocrit 21L, Mean Corpuscular Volume 87, Mean Corpuscular Hemoglobin 29, Mean Corpuscular Hemoglobin Concent 34, Red Cell Distribution Width 15.8H, Platelet Count 208, Mean Platelet Volume 9.9, Neutrophils (%) (Auto) 74, Lymphocytes (%) (Auto) 13, Monocytes (%) (Auto) 11, Eosinophils (%) (Auto) 2, Basophils (%) (Auto) 0, Neutrophils # (Auto) 5.3, Lymphocytes # (Auto) 1.0, Monocytes # (Auto) 0.8, Eosinophils # (Auto) 0.2, Basophils # (Auto) 0.0, Sodium Level 138, Potassium Level 3.6, Chloride Level 105, Carbon Dioxide Level 21, Anion Gap 12, Blood Urea Nitrogen 26H, Creatinine 1.72H, Estimat Glomerular Filtration Rate 40, BUN/Creatinine Ratio 15, Glucose Level 151H, Calcium Level 8.7, Corrected Calcium 9.4, Total Bilirubin 0.3, Aspartate Amino Transf (AST/SGOT) 20, Alanine Aminotransferase (ALT/SGPT) 26, Alkaline Phosphatase 92, Total Protein 6.4, Albumin 3.1L, Vancomycin Level Trough 15.9 12/24/18 16:55: Glucometer 206H 12/24/18 22:21: Glucometer 169H 12/25/18 05:44: Glucometer 160H 12/25/18 11:29: Glucometer 185H Microbiology 12/16/18 Blood Culture - Final, Complete No growth 12/20/18 MRSA Screen - Final, Complete MRSA not isolated 12/16/18 Gram Stain - Final, Complete 12/16/18 Wound Culture - Final, Complete Staphylococcus aureus See Comments Assessment/Plan Assessment/Plan Assessment/Plan Right foot Cellulitis with Osteomyelitis of phalange Uncontrolled DM Obese S/P RIGHT BKA ok to send back to [facility] once medically cleared and will see Dr. Bustillos as an outpatient; set up Orthotic appt in a week or so. dressing changed Clinical Quality Measures DVT/VTE Risk/Contraindication: Risk Factor Score Per Nursin RFS Level Per Nursing on Admit: 4+=Very High SHANICE WINCHESTER DO December 25, 2018 14:20
--- NOTE | 2018-12-25 14:30 | NUR ---
BLADDER SCAN 566, STRAIGHT CATH 1350. ATTEMPTED TO VOID NUMEROUS TIMES.
[2018-12-25 16:00] VITALS: BP 163/73
[2018-12-25] MEDS: VANCOMYCIN 1,750 MG/NS 500 ML IVPB IV SCH ×2 (17:59)
[2018-12-25 19:55] VITALS: BP 147/68
[2018-12-25] MEDS: VALSARTAN 160 MG (DIOVAN) TABLET PO SCH (20:10)
[2018-12-25] MEDS: TAMSULOSIN 0.4 MG (FLOMAX) CAP PO SCH (20:11)
[2018-12-25] MEDS: AMITRIPTYLINE 25 MG (ELAVIL) TAB PO SCH (20:11)
[2018-12-25] MEDS: FINASTERIDE (PROSCAR) 5 MG TAB PO SCH (20:11)
[2018-12-26] VITALS: BP 133/63
[2018-12-26] MEDS: RT-ALBUTEROL/IPRATROPIUM 3 ML (DUONEB) VIAL INH SCH ×6 (02:33→22:35)
[2018-12-26 04:47] VITALS: BP 172/80
[2018-12-26] MEDS: CATHETER FLUSH 10 ML SYR IV SCH ×3 (06:21→22:32)
[2018-12-26] MEDS: VENlafaxine XR 75 MG (EFFEXOR XR) CAP PO SCH (06:22)
[2018-12-26] MEDS: KCL 20 MEQ TAB (K-DUR) PO SCH (06:22)
[2018-12-26] MEDS: inSUlin ASPART (NovoLOG) 1 UNIT/0.01 ML (CHARGE PER UNIT) SC SCH ×3 (06:32→16:40)
[2018-12-26 07:12] LABS: BASOPHILS % (AUTO) 0 % (0-10); EOSINOPHILS # (AUTO) 0.2 10^3/uL (0.0-0.3); EOSINOPHILS % (AUTO) 2 % (0-10); HEMATOCRIT 25 % (40-54); HEMOGLOBIN 8.1 G/DL (13.3-17.7); LYMPHOCYTES # (AUTO) 1.1 X 10^3 (1.0-4.0); LYMPHOCYTES % (AUTO) 17 % (12-44); MEAN CORPUSCULAR HEMOGLOBIN 29 PG (25-34); MEAN CORPUSCULAR HGB CONC 33 G/DL (32-36); MEAN CORPUSCULAR VOLUME 88 FL (80-99); MEAN PLATELET VOLUME 9.8 FL (7.4-10.4); MONOCYTES # (AUTO) 0.5 X 10^3 (0.0-1.0); MONOCYTES % (AUTO) 7 % (0-12); NEUTROPHILS # (AUTO) 4.8 X 10^3 (1.8-7.8); NEUTROPHILS % (AUTO) 74 % (42-75); PLATELET COUNT 220 10^3/uL (130-400); RED CELL DISTRIBUTION WIDTH 16.1 % (10.0-14.5); WHITE BLOOD COUNT 6.5 10^3/uL (4.3-11.0)
[2018-12-26 07:38] LABS: CALCIUM 9.2 MG/DL (8.5-10.1); CREATININE SERUM 1.33 MG/DL (0.60-1.30); POTASSIUM 3.9 MMOL/L (3.6-5.0)
[2018-12-26] MEDS: RT-ALBUTEROL/IPRATROPIUM 3 ML (DUONEB) VIAL INH PRN ×3 (07:59→22:48)
[2018-12-26 08:00] VITALS: BP 161/74
[2018-12-26] MEDS: GEMFIBROZIL 600 MG (LOPID) TAB PO SCH (09:23)
[2018-12-26] MEDS: ALLOPURINOL 100 MG (ZYLOPRIM) TAB PO SCH (09:24)
[2018-12-26] MEDS: hydrALAZINE (APRESOLINE) 25 MG TAB PO SCH ×3 (09:24→21:25)
[2018-12-26] MEDS: ASPIRIN E.C. 81 MG (ECOTRIN) TAB PO SCH (09:24)
[2018-12-26] MEDS: FUROSEMIDE 40 MG (LASIX) TAB PO SCH ×2 (09:24→21:25)
[2018-12-26] MEDS: amLODIPine 10 MG (NORVASC) TAB PO SCH (09:24)
[2018-12-26] MEDS: CARVEDILOL 12.5 MG (COREG) TABLET PO SCH ×2 (09:24→21:25)
[2018-12-26] MEDS: DOCUSATE SODIUM 100 MG (COLACE) CAP PO SCH (09:25)
--- NOTE | 2018-12-26 10:01 | Occupational Ther Daily Note ---
OT Current Status-Daily Note Subjective pt laying in bed upon OT arrival. pt agreed to OT/ PT TX. Co-treat appropriate for this pt secondary to pt requiring clinical skills by both disciplines that could not be completed by rehabilitation services counselor. OT addressed UE placement/ use as PT addressed gross transfer and LE use. Mental Status/Objective Patient Orientation: Person, Place, Time, Situation Therapy Code Descriptions/Definitions Functional [place] Measure: 0=Not Assessed/NA 4=Minimal Assistance 1=Total Assistance 5=Supervision or Setup 2=Maximal Assistance 6=Modified [place] 3=Moderate Assistance 7=Complete [place] Attachments: Oxygen ADL-Treatment Lower Body Dressing (FIM): 1 (pt education on use of AE to increase LB dressing. OT did not demo use of equipment. to be addressed 12/27/18) Other Treatment pt education on R<>L rolling/ increasing independence with scooting up in bed. pt required MODIN A for rolling in bed. pt perform supine to sit with HOB elevated to approx 40 degrees with MOD A with heavy skilled cues for sequencing and task segmentation. Pt sat EOB with SBA for safety. pt perform Sit to stand with min assist with use of RW. pt education on proper positioning of RW/ proper hand placement. pt perform stand pivot transfers from bed to chair with MIN A. Pt required SBA and cueing to scoot back in the chair. In chair with oxygen in place and needs met. OT ended treatment and Physical therapist stay in room. Co treat with PT due to the complexity of cues and skill of 2 clinicians to complete. OT addressed UE placement/ use as PT addressed gross transfer and LE use. Education OT Patient Education: Energy conservation, Modified ADL techniques, Purpose of tx/functional activities, Safety issues, Transfer techniques Teaching Recipient: Patient Teaching Methods: Demonstration, Discussion Response to Teaching: Verbalize Understanding, Return Demonstration OT Short Term Goals Short Term Goals Grooming(FIM): 5 Bathing(FIM): 4 Toileting(FIM): 4 Transfers (B,C,W/C) (FIM): 3 Toilet/Commode Transfer(FIM): 3 1=Demonstrate adherence to instructed precautions during ADL tasks. 2=Patient will verbalize/demonstrate understanding of assistive devices/modifications for ADL. 3=Patient will improve strength/tolerance for activity to enable patient to perform ADL's. OT Credit Department Manager Goals Credit Department Manager Goals Grooming(FIM): 6 Bathing(FIM): 5 Toileting(FIM): 5 Transfers (B,C,W/C) (FIM): 5 Toilet/Commode Transfer(FIM): 5 1=Demonstrate adherence to instructed precautions during ADL tasks. 2=Patient will verbalize/demonstrate understanding of assistive devices/modifications for ADL. 3=Patient will improve strength/tolerance for activity to enable patient to perform ADL's. OT Education/Plan Problem List/Assessment pt presents with functional limitations affecting area of ADL/ functional transfers. pt would benefit from OT services to increase independence with ADLS/ functional transfers. recommended d/c to SNF when medically stable. Discharge Recommendations Plan/Recommendations: Continue POC Treatment Plan/Plan of Care Treatment,Training & Education: Yes Patient would benefit from OT for education, treatment and training to promote independence in ADL's, mobility, safety and/or upper extremity function for ADL's. Plan of Care: ADL Retraining, Caregiver Training, Functional Mobility, Group Exercise/Act as Ind, UE Funct Exercise/Act Treatment Duration: Jan 13, 2019 Frequency: 4 times per week (4-5 times per week) Estimated Hrs Per Day: .25 hour per day Rehab Potential: Guarded Time/GCodes Start Time: 09:40 Stop Time: 10:00 Billed Treatment Time A 20 minutes GAMA SALAZAR OT December 26, 2018 10:01
--- NOTE | 2018-12-26 11:33 | Physical Therapy Daily Note ---
PT Daily Note-Current Subjective pt reluctantly agrees to therapy and to get out of bed. Mental Status Patient Orientation: Normal For Age Transfers Therapy Code Descriptions/Definitions Functional [place] Measure: 0=Not Assessed/NA 4=Minimal Assistance 1=Total Assistance 5=Supervision or Setup 2=Maximal Assistance 6=Modified [place] 3=Moderate Assistance 7=Complete [place] Therapy Quality Codes: 6 Independent with activity with or without an assistive device 5 Patient requires set up or clean up by helper. Patient completes activity by themselves 4 Supervision or touching assist (CGA). [place] provide cues , steadying assist 3 The helper provides less than half the effort to complete the activity 2 The helper provides more than half the effort to complete the activity 1 Dependent. The helper does all the effort to complete an activity 7 Patient refused to complete or attempt activity 9 The patient did not perform the activity before the current illness or injury 88 Not attempted due to Medical conditions or safety concerns Transfers (B, C, W/C) (FIM): 3 Scootin Rollin Supine to/from Sit: 3 Sit to/from Stand: 4 Bed to/from Chair: 4 Pt educated on sequence for rolling and sit to stand. Able to come to standing under his own power from an elevated bed. Pivot transfer controlled with Min A for balance. Weight Bearing Right Lower Extremity: Right Partial Weight Bearing Left Lower Extremity: Left Weight Bearing/Tolerated Exercises Performed (R) LE knee PROM for flexion and extension. (R) quad sets x 20 reps, SAQ x 20 reps, Hip abd/Add x 20 reps, and SLR x 10 Assessment Current Status: Good Progress Pt showed improved bed mobility and initiation of sit to stand. Pt stand pivot with FWW Min A. Pt will benefit from progressive standing activity to promote independence with transfers. PT Short Term Goals Short Term Goals Time Frame: December 26, 2018 Transfers (B,C,W/C) (FIM): 3 Wheelchair (FIM): 2 PT Senior Living Goals Senior Living Goals PT Senior Living Goals Time Frame: December 28, 2018 Transfers (B,C,W/C) (FIM): 4 Gait (FIM): 0 PT Plan Treatment/Plan Treatment Plan: Continue Plan of Care Treatment Plan: Bed Mobility, Concurrent Therapy, Education, Functional Activity Farshad, Functional Strength, Gait, Safety, Therapeutic Exercise, Transfers Treatment Duration: December 26, 2018 Frequency: 1 time per month Estimated Hrs Per Day: .5 hour per day Patient and/or Family Agrees t: Yes Time/GCodes Time In: 940 Time Out: 1006 Total Billed Treatment Time: 26 Total Billed Treatment visit, FA 10min, ex 16 min SAMANTHA ADAMS PT December 26, 2018 11:33
[2018-12-26 12:00] VITALS: BP 133/63
--- NOTE | 2018-12-26 14:35 | Physical Therapy Daily Note ---
PT Daily Note-Current Subjective Pt inquires about using the bedside commode vs bedpan. He says he would like to try. Mental Status Patient Orientation: Normal For Age Transfers Therapy Code Descriptions/Definitions Functional [place] Measure: 0=Not Assessed/NA 4=Minimal Assistance 1=Total Assistance 5=Supervision or Setup 2=Maximal Assistance 6=Modified [place] 3=Moderate Assistance 7=Complete [place] Therapy Quality Codes: 6 Independent with activity with or without an assistive device 5 Patient requires set up or clean up by helper. Patient completes activity by themselves 4 Supervision or touching assist (CGA). [place] provide cues , steadying assist 3 The helper provides less than half the effort to complete the activity 2 The helper provides more than half the effort to complete the activity 1 Dependent. The helper does all the effort to complete an activity 7 Patient refused to complete or attempt activity 9 The patient did not perform the activity before the current illness or injury 88 Not attempted due to Medical conditions or safety concerns Transfers (B, C, W/C) (FIM): 2 Supine to/from Sit: 3 Sit to/from Stand: 2 Bed to/from Chair: 1 Education on sequence for supine to sit and stand pivot transfer. Moderate assist for sit to stand from elevated bed using FWW, pivot toward (L) side with MAX assist to land center on commode. Pt able to forward wt shift onto (L) leg to assist with markel care following BM. Pt took 3 assist to come to standing from bedside commode with MAX assist for pivot transfer to the right. Weight Bearing Right Lower Extremity: Right Partial Weight Bearing Left Lower Extremity: Left Weight Bearing/Tolerated Assessment pt able to perform sit stand and stand pivot transfer with Mod to Max Assist. Pt not safe for 1 person transfers. Recommend having Carla lift available for commode transfers until patient gets stronger in the (L) leg. PT Short Term Goals Short Term Goals Time Frame: December 26, 2018 Transfers (B,C,W/C) (FIM): 3 Wheelchair (FIM): 2 PT Group Home Goals Agricultural Research Engineer Goals PT Agricultural Research Engineer Goals Time Frame: December 28, 2018 Transfers (B,C,W/C) (FIM): 4 Gait (FIM): 0 PT Plan Treatment/Plan Treatment Plan: Continue Plan of Care Treatment Plan: Bed Mobility, Concurrent Therapy, Education, Functional Activi ty Farshad, Functional Strength, Gait, Safety, Therapeutic Exercise, Transfers Treatment Duration: December 26, 2018 Frequency: 1 time per month Estimated Hrs Per Day: .5 hour per day Patient and/or Family Agrees t: Yes Time/GCodes Time In: 1330 Time Out: 1400 Total Billed Treatment Time: 22 Total Billed Treatment visit, FA 22 min SAMANTHA ADAMS PT December 26, 2018 14:35
--- NOTE | 2018-12-26 15:08 | Progress Note-Hospitalist ---
Subjective HPI/CC On Admission Date Seen by Provider: December 26, 2018 Time Seen by Provider: 12:00 This 68-year-old white male status post amputation of right great toe approximately one month ago with a slow uncomplicated recovery from this. Per the sister it's never really looked very good the removal of the sutures was delayed because of the slow healing process. Appreciate Dr. Bustillos's input. The foot is very erythematous red and swollen and hot. The patient had an temperature of 101 at [facility] where he has been residing for wound care. Patient is awake and oriented as to the history. Subjective/Events-last exam Patient had hypoglycemic type symptoms with a blood sugar of 70 yesterday evening. Staff reports he took his insulin and then decided not to eat his evening meal. I recall being notified but they held his Levemir. Otherwise he is doing well with therapy. The surgeon mention acute rehabilitation evaluation but when I discussed with the patient after work 3 hours a day he would [facility] return [facility] [place] [facility] and I feel he is a better candidate for returning to [facility] with PT and OT consultation. Objective Exam Vital Signs Vital Signs Date Time Temp Pulse Resp B/P (MAP) Pulse Ox O2 Delivery O2 Flow Rate FiO2 12/26/18 12:17 96 Nasal Cannula 7.00 12/26/18 12:00 98.7 70 20 133/63 (86) 12/24/18 14:47 36 Capillary Refill : Less Than 3 SecondsLess Than 3 Seconds General Appearance: No Apparent Distress, Obese HEENT: PERRL/EOMI, Normal ENT Inspection Respiratory: Chest Non Tender, No Accessory Muscle Use, No Respiratory Distress Cardiovascular: Regular Rate, Rhythm, No Gallop, No Murmur, Other (Decreased pulses right leg) Gastrointestinal: Normal Bowel Sounds, No Organomegaly, No Pulsatile Mass, Non Tender, Soft Back: Normal Inspection Extremity: Other (right BKA incisions clean dry and intact small blister on the anterior surface but no signs of infection) Neurologic/Psychiatric: Alert, Oriented x3, Normal Mood/Affect Skin: Normal Color, Warm/Dry Results/Procedures Lab Laboratory Tests 12/26/18 06:54 Patient resulted labs reviewed. Imaging: Reviewed Imaging Report Assessment/Plan Assessment and Plan Assess & Plan/Chief Complaint A/P 1. Status post right BKA for chronic osteomyelitis aggravated by long- standing likely poorly controlled diabetes. Condition significantly improved. 2. Type II diabetes mellitus insulin requiring under improved control overall mild hypoglycemia due to insulin administration with the patient refusing to eat after discussed the fact that should this happen again he was going to have to take in calories to cover his insulin or the same thing would happen. 3. Delirium multifactorial currently resolved no evidence for ongoing infection. 4. Anemia likely combined chronic inflammation of chronic renal disease improved hemoglobin up to 8.1. Clinical Quality Measures DVT/VTE Risk/Contraindication: Risk Factor Score Per Nursin RFS Level Per Nursing on Admit: 4+=Very High ANEL PHIPPS MD December 26, 2018 15:07
[2018-12-26 15:30] VITALS: BP 154/71
[2018-12-26] MEDS: VANCOMYCIN 1,750 MG/NS 500 ML IVPB IV SCH ×2 (16:40)
--- NOTE | 2018-12-26 18:59 | NUR ---
SISTER REQUESTING TYLENOL FOR PT, BUT PATIENT ASLEEP BEFORE I LEAVE ROOM. WILL CONT TO MONITOR.
[2018-12-26 19:50] VITALS: BP 185/79
[2018-12-26] MEDS: ACETAMINOPHEN 500 MG TAB (TYLENOL) PO PRN (19:51)
[2018-12-26] MEDS: TAMSULOSIN 0.4 MG (FLOMAX) CAP PO SCH (21:25)
[2018-12-26] MEDS: FINASTERIDE (PROSCAR) 5 MG TAB PO SCH (21:25)
[2018-12-26] MEDS: AMITRIPTYLINE 25 MG (ELAVIL) TAB PO SCH (21:25)
[2018-12-26] MEDS: VALSARTAN 160 MG (DIOVAN) TABLET PO SCH (21:26)
--- NOTE | 2018-12-26 21:35 | NUR ---
PT BLOOD SUGAR 88. DR PHIPPS NOTIFIED AND NEW ORDER RECEIVED TO GIVE 20 UNITS OF LEVEMIR
--- NOTE | 2018-12-26 21:49 | Progress Note ---
Subjective Date Seen by a Provider: December 26, 2018 Time Seen by a Provider: 12:14 Subjective/Events-last exam Patient pain controlled. Doing some physical therapy. Some family are wanting evaluated for IPR. Patient not sure if he wants to do this vs care home. Patient with no new complaints. Denies n/v fever sweats chills shortness of breath or chest pain. Objective Exam Vital Signs Date Time Temp Pulse Resp B/P (MAP) Pulse Ox O2 Delivery O2 Flow Rate FiO2 12/26/18 19:06 90 NIV CPAP 5.00 12/26/18 15:35 96 Nasal Cannula 7.00 12/26/18 15:35 96 NIV CPAP 5.00 12/26/18 15:30 98.1 71 20 154/71 (98) 95 NIV CPAP 4.00 12/26/18 12:17 96 Nasal Cannula 7.00 12/26/18 12:00 98.7 70 20 133/63 (86) 95 NIV CPAP 4.00 12/26/18 08:00 98.9 80 20 161/74 (103) 94 NIV CPAP 4.00 12/26/18 08:00 NIV CPAP 4.00 12/26/18 07:59 96 NIV CPAP 5.00 12/26/18 04:47 97.8 71 20 172/80 (110) 94 NIV CPAP 4.00 12/26/18 02:33 94 NIV CPAP 5.00 12/26/18 00:00 97.4 66 22 133/63 (86) 94 NIV CPAP 4.00 12/25/18 21:59 95 NIV CPAP 5.00 I & O 12/26/18 07:00 Intake Total 2637.5 ml Output Total 4075 ml Balance -1437.5 ml Capillary Refill : Less Than 3 SecondsLess Than 3 Seconds General Appearance: No Apparent Distress, Obese HEENT: PERRL/EOMI, Normal ENT Inspection Respiratory: Chest Non Tender, No Accessory Muscle Use, No Respiratory Distress Cardiovascular: Regular Rate, Rhythm, No Gallop, No Murmur, Other (Decreased pulses right leg) Gastrointestinal: normal bowel sounds, non tender, soft, no organomegaly, no pulsatile mass Extremity: Other (right BKA incisions clean dry and intact small blister on the anterior surface but no signs of infection) Neurologic/Psychiatric: Alert, Oriented x3, Normal Mood/Affect Skin: Normal Color, Warm/Dry Lymphatic: No Adenopathy Results Lab Laboratory Tests 12/25/18 21:52: Glucometer 70 12/26/18 05:49: Glucometer 181H 12/26/18 06:54: White Blood Count 6.5, Red Blood Count 2.82L, Hemoglobin 8.1L, Hematocrit 25L, Mean Corpuscular Volume 88, Mean Corpuscular Hemoglobin 29, Mean Corpuscular Hemoglobin Concent 33, Red Cell Distribution Width 16.1H, Platelet Count 220, Mean Platelet Volume 9.8, Neutrophils (%) (Auto) 74, Lymphocytes (%) (Auto) 17, Monocytes (%) (Auto) 7, Eosinophils (%) (Auto) 2, Basophils (%) (Auto) 0, Neutrophils # (Auto) 4.8, Lymphocytes # (Auto) 1.1, Monocytes # (Auto) 0.5, Eosinophils # (Auto) 0.2, Basophils # (Auto) 0.0, Sodium Level 140, Potassium Level 3.9, Chloride Level 105, Carbon Dioxide Level 22, Anion Gap 13, Blood Urea Nitrogen 22H, Creatinine 1.33H, Estimat Glomerular Filtration Rate 54, BUN/Creatinine Ratio 17, Glucose Level 149H, Calcium Level 9.2 12/26/18 11:26: Glucometer 178H 12/26/18 16:10: Glucometer 191H 12/26/18 21:03: Glucometer 88 Microbiology 12/16/18 Blood Culture - Final, Complete No growth 12/20/18 MRSA Screen - Final, Complete MRSA not isolated 12/16/18 Gram Stain - Final, Complete 12/16/18 Wound Culture - Final, Complete Staphylococcus aureus See Comments Assessment/Plan Assessment/Plan Assessment/Plan Right foot Cellulitis with Osteomyelitis of phalange Uncontrolled DM Obese S/P RIGHT BKA ok to send back to [facility] once medically cleared and will see Dr. Bustillos as an outpatient; set up Orthotic appt in a week or so. patient discussed in patient rehab vs going back to care home per family request. Clinical Quality Measures DVT/VTE Risk/Contraindication: Risk Factor Score Per Nursin RFS Level Per Nursing on Admit: 4+=Very High SHANICE WINCHESTER DO December 26, 2018 21:49
[2018-12-27] VITALS (7 sets, daily range): BP systolic 124–175; BP diastolic 57–79
[2018-12-27] MEDS: RT-ALBUTEROL/IPRATROPIUM 3 ML (DUONEB) VIAL INH SCH ×4 (03:15→19:23)
[2018-12-27] MEDS: inSUlin ASPART (NovoLOG) 1 UNIT/0.01 ML (CHARGE PER UNIT) SC SCH ×3 (06:29→18:35)
[2018-12-27] MEDS: KCL 20 MEQ TAB (K-DUR) PO SCH (06:29)
[2018-12-27] MEDS: VENlafaxine XR 75 MG (EFFEXOR XR) CAP PO SCH (06:29)
[2018-12-27] MEDS: CATHETER FLUSH 10 ML SYR IV SCH ×2 (06:30→15:20)
[2018-12-27] MEDS: DOCUSATE SODIUM 100 MG (COLACE) CAP PO SCH (09:00)
[2018-12-27] MEDS: GEMFIBROZIL 600 MG (LOPID) TAB PO SCH (09:00)
[2018-12-27] MEDS: ASPIRIN E.C. 81 MG (ECOTRIN) TAB PO SCH (09:00)
[2018-12-27] MEDS: amLODIPine 10 MG (NORVASC) TAB PO SCH (09:00)
[2018-12-27] MEDS: hydrALAZINE (APRESOLINE) 25 MG TAB PO SCH ×3 (09:00→20:30)
[2018-12-27] MEDS: FUROSEMIDE 40 MG (LASIX) TAB PO SCH ×2 (09:01→20:30)
[2018-12-27] MEDS: ALLOPURINOL 100 MG (ZYLOPRIM) TAB PO SCH (09:01)
[2018-12-27] MEDS: CARVEDILOL 12.5 MG (COREG) TABLET PO SCH ×2 (09:01→20:30)
[2018-12-27] MEDS: HYDROcodone/APAP 5 MG/325 MG (LORTAB) TAB PO PRN (09:01)
--- NOTE | 2018-12-27 10:30 | Physical Therapy Daily Note ---
PT Daily Note-Current Subjective Patient in bed pre tx, agrees to PT, has 5-6/10 pain in right residual limb. Patient states he has been having a lot of phantom sensation. Will be co- treating with OT due to poor balance, needs to coordinate LE and UE positioning. Appearance Patient in recliner post tx with nurse call, phone, tray, all needs met. Mental Status Patient Orientation: Person, Place, Situation Attachments: [place] Catheter Transfers Therapy Code Descriptions/Definitions Functional [place] Measure: 0=Not Assessed/NA 4=Minimal Assistance 1=Total Assistance 5=Supervision or Setup 2=Maximal Assistance 6=Modified [place] 3=Moderate Assistance 7=Complete [place] Therapy Quality Codes: 6 Independent with activity with or without an assistive device 5 Patient requires set up or clean up by helper. Patient completes activity by themselves 4 Supervision or touching assist (CGA). [place] provide cues , steadying assist 3 The helper provides less than half the effort to complete the activity 2 The helper provides more than half the effort to complete the activity 1 Dependent. The helper does all the effort to complete an activity 7 Patient refused to complete or attempt activity 9 The patient did not perform the activity before the current illness or injury 88 Not attempted due to Medical conditions or safety concerns Transfers (B, C, W/C) (FIM): 3 Scootin Rollin Supine to/from Sit: 5 Sit to/from Stand: 3 Bed to/from Chair: 2 Patient needs mod assist to stand from an elevated surface (bed raised up). He performed a stand pivot transfer with max assist. He is only able to pivot a small amount on his left leg and has to basically fall into the chair because he cannot turn any more. He does control his descent some with his arms on the armrests. Weight Bearing Right Lower Extremity: Right Partial Weight Bearing Left Lower Extremity: Left Weight Bearing/Tolerated Exercises Seated Therapy Exercises: Ankle pumps (only LLE), Long arc quads, Hip flexion, Hip abd/add Seated Reps: 15 Treatments bed mobility and transfers, LE exercise Assessment Current Status: Fair Progress improved bed mobility but poor transfer. PT performed bed mobility and transfers, LE exercise. OT assisted with transfers and performed UE positioning during transfer. PT Short Term Goals Short Term Goals Time Frame: December 26, 2018 Transfers (B,C,W/C) (FIM): 3 Wheelchair (FIM): 2 PT Penitentiary Goals Penitentiary Goals PT Penitentiary Goals Time Frame: December 28, 2018 Transfers (B,C,W/C) (FIM): 4 Gait (FIM): 0 PT Plan Problem List Problem List: Activity Tolerance, Functional Strength, Safety, Balance, Gait, Transfer, Bed Mobility, ROM Treatment/Plan Treatment Plan: Continue Plan of Care Treatment Plan: Bed Mobility, Concurrent Therapy, Education, Functional Activity Farshad, Functional Strength, Gait, Safety, Therapeutic Exercise, Tr ansfers Treatment Duration: December 26, 2018 Frequency: 1 time per month Estimated Hrs Per Day: .5 hour per day Patient and/or Family Agrees t: Yes Safety Risks/Education Patient Education: Transfer Techniques, Correct Positioning, Safety Issues Teaching Recipient: Patient Teaching Methods: Demonstration, Discussion Response to Teaching: Reinforcement Needed Time/GCodes Time In: 1000 Time Out: 1020 Total Billed Treatment Time: 20 Total Billed Treatment 1 visit FA 20' BETTY STRONG PT December 27, 2018 10:30
--- NOTE | 2018-12-27 10:32 | Occupational Ther Daily Note ---
OT Current Status-Daily Note Subjective Pt alert, lying in bed. Pt agrees to therapy. C/o pain in amputation R LE, 10/09. Pt had Cpap on when therapist came into room. Mental Status/Objective Patient Orientation: Person, Place, Time, Situation Therapy Code Descriptions/Definitions Functional [place] Measure: 0=Not Assessed/NA 4=Minimal Assistance 1=Total Assistance 5=Supervision or Setup 2=Maximal Assistance 6=Modified [place] 3=Moderate Assistance 7=Complete [place] Other Treatment Skills of 2 clinicians were needed to work on functional mobility skills, dynamic standing balance and functional transfers. PT working on functional transfers with FWW, LE strengthening and core strength. OT working on UE strengthening, functional transfers with correct arm placement and education for lower body dressing equipment. Assist for hand hold with supine to EOB with HOB raised. Elevated surface to stand is needed to assist with sit <--> stand. Pt stated that he has sock aide at home that he will use if he wants to put socks on then to doff he rubs his foot against the carpet at home to slide it off. Pt states that he has slip on shoes if he has something on his feet and does not wear socks. Pt is dependent for toileting hygiene. Assist x2 for transfer. After therapy, pt sitting in recliner with call light/phone in reach. All needs met in room. Education OT Patient Education: Modified ADL techniques Teaching Recipient: Patient Teaching Methods: Discussion Response to Teaching: Verbalize Understanding OT Short Term Goals Short Term Goals Grooming(FIM): 5 Bathing(FIM): 4 Toileting(FIM): 4 Transfers (B,C,W/C) (FIM): 3 Toilet/Commode Transfer(FIM): 3 1=Demonstrate adherence to instructed precautions during ADL tasks. 2=Patient will verbalize/demonstrate understanding of assistive devices/modifications for ADL. 3=Patient will improve strength/tolerance for activity to enable patient to perform ADL's. OT Conical Mixer Goals Mcc Goals Grooming(FIM): 6 Bathing(FIM): 5 Toileting(FIM): 5 Transfers (B,C,W/C) (FIM): 5 Toilet/Commode Transfer(FIM): 5 1=Demonstrate adherence to instructed precautions during ADL tasks. 2=Patient will verbalize/demonstrate understanding of assistive devices/modifications for ADL. 3=Patient will improve strength/tolerance for activity to enable patient to perform ADL's. OT Education/Plan Problem List/Assessment Assessment: Decreased Activ Tolerance, Dependent Transfers, Impaired Self-Care Skills pt presents with functional limitations affecting area of ADL/ functional transfers. pt would benefit from OT services to increase independence with ADLS/ functional transfers. recommended d/c to SNF when medically stable. Discharge Recommendations Plan/Recommendations: Continue POC Treatment Plan/Plan of Care Patient would benefit from OT for education, treatment and training to promote independence in ADL's, mobility, safety and/or upper extremity function for A DL's. Plan of Care: ADL Retraining, Caregiver Training, Functional Mobility, Group Exercise/Act as Ind, UE Funct Exercise/Act Treatment Duration: Jan 13, 2019 Frequency: 4 times per week (4-5 times per week) Estimated Hrs Per Day: .25 hour per day Rehab Potential: Guarded Time/GCodes Start Time: 10:00 Stop Time: 10:20 Total Time Billed (hr/min): 20 Billed Treatment Time 1 visit-FA 1 (20 min) co-treat with PT entire session MARIA A KEENE December 27, 2018 10:32
--- NOTE | 2018-12-27 12:50 | Progress Note-Hospitalist ---
Progress Note Progress Notes/Assess & Plan Date Seen 12/27/18 Time Seen by Provider: 12:46 Assessment & Plan Plans are being made for transfer to [facility]. The patient is anxious to get out of here. The concern at this time is, given his weight and in essence one legged status, safety with a left. She social problems specialist and the fpc are working on this. Physical exam: The patient is alert and oriented. Lungs are clear to auscultation. CV is regular without murmur. The dressings over the right BK amputation are dry. Impression: Diabetes mellitus type II insulin requiring. 2.diabetic neuropathy and peripheral vascular disease. 3.day number 5 post-right BK amputation. Plan: Assure proper lift availability CASSY PALACIO MD December 27, 2018 12:50
--- NOTE | 2018-12-27 14:40 | NUR ---
CM/SS. Interdisciplinary team determined patient would not be able to participate in the expected 3 hours of daily therapy on acute inpatient rehab so that referral was terminated. Plan is that patient will return to [facility] tomorrow, Medicare skilled. Second Baker has updated his primary support/sister Zofia to update. RNA will bath/shower patient tomorrow at his request prior to discharge. Patient's ex- Maegan has been a primary caregiver for him in the home. She continues to assist him as needed and work behind the scenes for maintaining his home and pets. Patient appears alert and oriented. He is forward thinking regarding his limitations and long range recovery, possibly with prosthetic. Updated unit RN, RNA, and THUAN/Shweta of all information appropriate to them. Confirmed with Shweta that [facility] has a lift available for this patient transfers. Await finalized discharge orders.
--- NOTE | 2018-12-27 15:20 | Progress Note ---
Subjective Time Seen by a Provider: 12:55 Subjective/Events-last exam Pt seen and examined, states pain in leg is getting better. Review of Systems General: No Chills, No Night Sweats Pulmonary: Dyspnea, Other (using CPAP when I walked in) Cardiovascular: No: Chest Pain, Palpitations Objective Exam Vital Signs Date Time Temp Pulse Resp B/P (MAP) Pulse Ox O2 Delivery O2 Flow Rate FiO2 12/27/18 12:00 98.6 84 2 148/61 (90) 92 NIV CPAP 4.00 12/27/18 11:20 NIV CPAP 4.00 12/27/18 08:00 98.8 80 22 151/57 (88) 98 NIV CPAP 4.00 12/27/18 07:31 93 NIV CPAP 5.00 12/27/18 07:31 77 93 12/27/18 04:00 98.0 68 18 175/79 (111) 95 NIV CPAP 4.00 12/27/18 03:15 94 NIV CPAP 5.00 12/27/18 00:35 98.3 68 20 133/63 (86) 92 NIV CPAP 4.00 12/26/18 22:48 92 NIV CPAP 5.00 12/26/18 20:00 NIV CPAP 4.00 12/26/18 19:50 98.1 74 20 185/79 (114) 94 NIV CPAP 4.00 12/26/18 19:06 90 NIV CPAP 5.00 12/26/18 15:35 96 Nasal Cannula 7.00 12/26/18 15:35 96 NIV CPAP 5.00 12/26/18 15:30 98.1 71 20 154/71 (98) 95 NIV CPAP 4.00 I & O 12/27/18 07:00 Intake Total 3407.5 ml Output Total 5275 ml Balance -1867.5 ml Capillary Refill : Less Than 3 SecondsLess Than 3 Seconds General Appearance: No Apparent Distress, Obese HEENT: PERRL/EOMI Respiratory: Chest Non Tender, No Accessory Muscle Use, No Respiratory Distress Cardiovascular: Regular Rate, Rhythm, No Gallop, No Murmur, Other (Decreased pulses right leg) Gastrointestinal: non tender, soft Extremity: Other (right BKA incisions clean dry and intact small blister on the anterior surface but no signs of infection) Neurologic/Psychiatric: Alert, Oriented x3, Normal Mood/Affect Results Lab Laboratory Tests 12/26/18 16:10: Glucometer 191H 12/26/18 21:03: Glucometer 88 12/27/18 02:27: Glucometer 142H 12/27/18 05:22: Glucometer 203H 12/27/18 11:17: Glucometer 215H Microbiology 12/16/18 Blood Culture - Final, Complete No growth 12/20/18 MRSA Screen - Final, Complete MRSA not isolated 12/16/18 Gram Stain - Final, Complete 12/16/18 Wound Culture - Final, Complete Staphylococcus aureus See Comments Assessment/Plan Assessment/Plan Assessment/Plan Right foot Cellulitis with Osteomyelitis of phalange Uncontrolled DM Obese S/P RIGHT BKA Ok to send back to [facility] once medically cleared and will see me as an outpatient; set up Orthotic appt in a week or so. Clinical Quality Measures DVT/VTE Risk/Contraindication: Risk Factor Score Per Nursin RFS Level Per Nursing on Admit: 4+=Very High ARMEN MARTINS DO December 27, 2018 15:20
--- NOTE | 2018-12-27 15:46 | Physical Therapy Daily Note ---
PT Daily Note-Current Subjective Pt laying Supine in bed with CPAP on upon arrival. Pt agrees to PT. Pain Numeric Pain Scale: 5-Moderate Pain Location: Right, Medial, Incisional Location Body Site: Calf Pain Description: Ache, Tingling Mental Status Patient Orientation: Person, Place, Time, Situation Attachments: Other-See Comments (CPAP) Transfers Therapy Code Descriptions/Definitions Functional [place] Measure: 0=Not Assessed/NA 4=Minimal Assistance 1=Total Assistance 5=Supervision or Setup 2=Maximal Assistance 6=Modified [place] 3=Moderate Assistance 7=Complete [place] Therapy Quality Codes: 6 Independent with activity with or without an assistive device 5 Patient requires set up or clean up by helper. Patient completes activity by themselves 4 Supervision or touching assist (CGA). Cliff provide cues , steadying assist 3 The helper provides less than half the effort to complete the activity 2 The helper provides more than half the effort to complete the activity 1 Dependent. The helper does all the effort to complete an activity 7 Patient refused to complete or attempt activity 9 The patient did not perform the activity before the current illness or injury 88 Not attempted due to Medical conditions or safety concerns Weight Bearing Right Lower Extremity: Right Partial Weight Bearing Left Lower Extremity: Left Weight Bearing/Tolerated Exercises Supine Ex: Ankle pumps (L side only), Quad Set, Glut sets, Straight leg raise, Hip abd/add Supine Reps: 15 Treatments Pt completes Supine EX in bed due to just transferring back to bed after sitting in recliner for several hours. GUEST ROOM INSPECTOR educates on importance of changing positions and being able to tolerate sitting up for increased, better breathing. Pt resting at end of tx with all needs met. Assessment Current Status: Good Progress Pain sometimes limits pt's completion of tx. Also reports pain med (pt believes is Loratab) is causing altered mental state and wants to refrain from them. PT Short Term Goals Short Term Goals Time Frame: December 26, 2018 Transfers (B,C,W/C) (FIM): 3 Wheelchair (FIM): 2 PT Senior Living Goals Senior Living Goals PT Maintenance Specialist Goals Time Frame: December 28, 2018 Transfers (B,C,W/C) (FIM): 4 Gait (FIM): 0 PT Plan Problem List Problem List: Activity Tolerance, Functional Strength, Safety, Balance, Gait, Transfer, Bed Mobility, ROM Treatment/Plan Treatment Plan: Continue Plan of Care Treatment Plan: Bed Mobility, Concurrent Therapy, Education, Functional Activity [place], Functional Strength, Gait, Safety, Therapeutic Exercise, Transfers Treatment Duration: December 26, 2018 Frequency: 1 time per month Estimated Hrs Per Day: .5 hour per day Patient and/or Family Agrees t: Yes Safety Risks/Education Patient Education: Transfer Techniques, Correct Positioning, Safety Issues Teaching Recipient: Patient, Family Teaching Methods: Discussion Response to Teaching: Verbalize Understanding Time/GCodes Time In: 1510 Time Out: 1525 Total Billed Treatment Time: 15 Total Billed Treatment 1, EX (15m) G Codes Necessary: JOI Johnson GUEST ROOM INSPECTOR December 27, 2018 15:46
[2018-12-27] MEDS: TAMSULOSIN 0.4 MG (FLOMAX) CAP PO SCH (20:31)
[2018-12-27] MEDS: FINASTERIDE (PROSCAR) 5 MG TAB PO SCH (20:31)
[2018-12-27] MEDS: AMITRIPTYLINE 25 MG (ELAVIL) TAB PO SCH (20:31)
[2018-12-27] MEDS: VALSARTAN 160 MG (DIOVAN) TABLET PO SCH (20:38)
[2018-12-27] MEDS: ACETAMINOPHEN 500 MG TAB (TYLENOL) PO PRN (21:12)
[2018-12-28] MEDS: CATHETER FLUSH 10 ML SYR IV SCH ×2 (00:13→06:07)
[2018-12-28 00:36] VITALS: BP 161/78
[2018-12-28] MEDS: RT-ALBUTEROL/IPRATROPIUM 3 ML (DUONEB) VIAL INH SCH ×2 (01:51→09:57)
[2018-12-28 03:46] VITALS: BP 159/78
[2018-12-28] MEDS: ACETAMINOPHEN 500 MG TAB (TYLENOL) PO PRN (04:27)
[2018-12-28] MEDS: KCL 20 MEQ TAB (K-DUR) PO SCH (06:00)
[2018-12-28] MEDS: VENlafaxine XR 75 MG (EFFEXOR XR) CAP PO SCH (06:00)
[2018-12-28 08:00] VITALS: BP 186/94
[2018-12-28] MEDS: DOCUSATE SODIUM 100 MG (COLACE) CAP PO SCH (09:46)
[2018-12-28] MEDS: GEMFIBROZIL 600 MG (LOPID) TAB PO SCH (09:46)
[2018-12-28] MEDS: inSUlin ASPART (NovoLOG) 1 UNIT/0.01 ML (CHARGE PER UNIT) SC SCH ×3 (09:46→13:40)
[2018-12-28] MEDS: CARVEDILOL 12.5 MG (COREG) TABLET PO SCH (09:46)
[2018-12-28] MEDS: amLODIPine 10 MG (NORVASC) TAB PO SCH (09:46)
[2018-12-28] MEDS: hydrALAZINE (APRESOLINE) 25 MG TAB PO SCH ×2 (09:46→13:39)
[2018-12-28] MEDS: ASPIRIN E.C. 81 MG (ECOTRIN) TAB PO SCH (09:47)
[2018-12-28] MEDS: ALLOPURINOL 100 MG (ZYLOPRIM) TAB PO SCH (09:47)
[2018-12-28] MEDS: FUROSEMIDE 40 MG (LASIX) TAB PO SCH (09:47)
--- NOTE | 2018-12-28 10:26 | Progress Note-Hospitalist ---
Progress Note Progress Notes/Assess & Plan Date Seen 12/28/18 Time Seen by Provider: 10:22 Assessment & Plan The patient was a deeply somnolent when I came into the room. He did not respond to verbal but did stir to touch. Physical exam: Lungsbreath sounds are clear and respirations are rhythmic. CV is regular. His right BKA amputation site shows the dressings to be dry. Impression: Osteomyelitis right first metatarsal with subsequent BKA amputation. 2.morbid obesity with sleep/respiration disturbance. 3.diabetes mellitus type II insulin requiring. 3.ASHD with previous coronary artery bypass. 4.peripheral vascular disease. Plan: Transfer to [facility]. See discharge sequence for medications and routines. CASSY PALACIO MD December 28, 2018 10:26
--- NOTE | 2018-12-28 10:41 | Discharge Inst-Skilled Nursing ---
Discharge Inst-Skilled NF Chief Complaint This 68-year-old white male status post amputation of right great toe approximately one month ago with a slow uncomplicated recovery from this. Per the sister it's never really looked very good the removal of the sutures was delayed because of the slow healing process. Appreciate Dr. Bustillos's input. The foot is very erythematous red and swollen and hot. The patient had an temperature of 101 at [facility] where he has been residing for wound care. Patient is awake and oriented as to the history. Patient Instructions Patient Problems: Multiple includin.osteomyelitis right foot with recent BK amputation. 2.morbid obesity. 3.multifactorial respiratory disorder requiring CPAP. 4.diabetes mellitus type II. 5.arteriosclerotic heart disease with previous coronary artery bypass. 6.peripheral artery disease. Goal: Restored to ambulatory and self transfers state Consult/Follow Up/Orders Follow Up Appt.: Dr. Bustillos. Skilled NF Admit to: [facility] Certification (SNF) I certify that SNF services are required to be given on an inpatient basis because of the above named patient's need for intermediate care on a continuing basis for the conditions(s) for which he/she was receiving inpatient hospital services prior to his/her transfer to the SNF. y Intermediate Facility Order: Rand Cementer-Evaluate & Treat, Physical Therapy-Evaluate & Treat, Wound Care-Eval/Treat Oxygen Delivery Method: NIV CPAP Discharge Diet: ADA Diet Daily Activity as Tolerated: Yes New & Resume Previous Orders Jax Palacio December 28, 2018 10:35 Pneu Vac Indicated: Yes JAX PALACIO MD December 28, 2018 10:41
--- NOTE | 2018-12-28 13:58 | NUR ---
CM/SS. Patient discharged to return to [facility] under Medicare skilled status for RN and therapy post op for BKA, transport scheduled for 1430. Facility understands to bring bariatric wheelchair, O2 in case it is needed, and that patient's cpap is here and will be returning with him. Patient has clothing in his room. Faxed orders to SNF, prepared packet to accompany patient. Patient, unit RN, and PCCT aware of all plans. Spoke with sister Zofia by phone.
[2018-12-28 14:55] VITALS: BP 186/94
--- NOTE | 2018-12-29 12:25 | Physician Query Clarification ---
PQ-Further Specificity Admission/Discharge Admission Date: December 16, 2018 at 16:00 Discharge Date: December 28, 2018 at 14:55 The medical record reflects the following clinical scenario: History/Risk Factors: Osteomyelitis of the right foot. Clinical Findings: Osteomyelitis of the right foot. Treatment: Right below the knee amputation. Question: Can you further specify Right below the knee amputation per the clinical indicators above? Please document a response in the Progress Notes or Discharge Summary. 1. High: Amputation at the proximal portion of the shaft of the tibia and fibula 2. Mid: Amputation at the middle portion of the shaft of the tibia and fibula 3. Low: Amputation at the distal portion of the shaft of the tibia and fibula PHYSICIAN RESPONSE Can you specify per above: 1 Please remember a lack of response to the above will prompt a phone page by CDI/Coding staff. In responding to this query, please exercise your independent professional judgment. The purpose of this communication is to more accurately reflect the complexity of your patients condition. The fact that a question is asked does not imply that any particular answer is desired or expected. Thank you for your timely response to this clarification. Requestors name: Judi Fox THIS PHYSICIAN QUERY FORM IS A PERMANENT PART OF THE MEDICAL RECORD EMPERATRIZ LAY December 29, 2018 12:25 ARMEN MARTINS DO Jan 15, 2019 16:35
== END 2018-12-28 14:55 | DRG 475 ==
LOC: EDUNIT# 14:20 → ER 14:21 → UNDOADMIN 16:00 → 4TH 16:00
PROVIDERS: ADMIT Internal Medicine; ATTEND Internal Medicine
PROC: 0Y6H0Z1 Detachment at Right Lower Leg, High, Open Approach (ICD-10-PCS; principal; 2018-12-23)
DX: T87.43 Infection of amputation stump, right lower extremity (principal); L03.115 Cellulitis of right lower limb; E11.69 Type 2 diabetes mellitus with other specified complication; M86.671 Other chronic osteomyelitis, right ankle and foot; E66.01 Morbid (severe) obesity due to excess calories; Z68.41 Body mass index [BMI] 40.0-44.9, adult; B95.62 Methicillin resistant Staphylococcus aureus infection as the cause of diseases classified elsewhere; R41.0 Disorientation, unspecified; E11.65 Type 2 diabetes mellitus with hyperglycemia; E11.51 Type 2 diabetes mellitus with diabetic peripheral angiopathy without gangrene; E11.43 Type 2 diabetes mellitus with diabetic autonomic (poly)neuropathy; E11.22 Type 2 diabetes mellitus with diabetic chronic kidney disease; N18.3 Chronic kidney disease, stage 3 (moderate); I12.9 Hypertensive chronic kidney disease with stage 1 through stage 4 chronic kidney disease, or unspecified chronic kidney disease; D63.1 Anemia in chronic kidney disease; E11.649 Type 2 diabetes mellitus with hypoglycemia without coma; I25.10 Atherosclerotic heart disease of native coronary artery without angina pectoris; J44.9 Chronic obstructive pulmonary disease, unspecified; E78.00 Pure hypercholesterolemia, unspecified; G47.33 Obstructive sleep apnea (adult) (pediatric); R60.9 Edema, unspecified; R11.10 Vomiting, unspecified; I25.2 Old myocardial infarction; Z89.411 Acquired absence of right great toe; Z95.1 Presence of aortocoronary bypass graft; Z95.5 Presence of coronary angioplasty implant and graft; Z87.891 Personal history of nicotine dependence
CPT/HCPCS: 36415; 36569; 71045; 73630; 76937; 80048; 80053; 80202; 81000; 82962; 83605; 85025; 85027; 85610; 85652; 86850; 86900; 86901; 86920; 87040; 87070; 87077; 87081; 87186; 87205; 88307; 94640; 94760; 96374

== ENCOUNTER → 2019-08-17 | Outpatient (RCR) | payer MEDICARE ==
[~2019-08-17] MED LIST changes: +ASCO500T7 PO; +CHOL20002 PO; +CLIN300C11 PO; +FERR325T18 PO; +FOLI0.4T2 PO; +FOLIC ACID PO; +FURO-124 PO; +HYDR-3812 PO; +HYDR-3924 PO; +INSU100V16 SQ; +MAGN400T8 PO; +MECL-106 PO; +OMEP-280 PO; -OMEP20CA12 PO; +POTA-51 PO; +TMSL.4C PO; +WARF7.5T PO
== END | disposition home or self-care (01) ==
PROVIDERS: ATTEND Nurse Practitioner
DX: M22.42 Chondromalacia patellae, left knee (principal); Z89.511 Acquired absence of right leg below knee

== ENCOUNTER 2019-08-31 10:07 | Outpatient (RCR) | payer MEDICARE | END 2019-08-31 15:10 | disposition home or self-care (01) | PROVIDERS: ATTEND Nurse Practitioner | DX: M22.42 Chondromalacia patellae, left knee (principal); M23.8X2 Other internal derangements of left knee; R59.0 Localized enlarged lymph nodes; E11.9 Type 2 diabetes mellitus without complications; G57.93 Unspecified mononeuropathy of bilateral lower limbs; Z98.890 Other specified postprocedural states; Z89.511 Acquired absence of right leg below knee ==

== ENCOUNTER 2019-10-11 12:28 | Observation (INO) | payer MEDICARE ==
[~2019-10-11] VITALS: Ht 182.8 cm; Wt 166.0 kg
[~2019-10-11 12:28] MED LIST changes: +ACHD5005 PO; -HYDR-3812 PO; -MECL-106 PO; +MECL-149 PO; +MECL-172 PO; -MECL12.579 PO; -OMEP-280 PO; +OMEP20CA18 PO; +ONDA-105 PO; -ONDA4TAB10 PO
--- NOTE | 2019-10-11 12:46 | ED General ---
General Stated Complaint: R LOWER LOBE PNUEMONIA;EDEMA Source of Information: Patient Exam Limitations: No Limitations History of Present Illness Date Seen by Provider: Oct 11, 2019 Time Seen by Provider: 12:42 Initial Comments He's been following with Dr. Pelletier for unna boot changes left lower extremity secondary to a wound. Last week while he was there the left lower extremity was reddened and he had a cough productive of green sputum. He was placed on an unknown antibiotic. The leg appearance has improved with absence of redness now, the cough persists and is no longer productive. During today's visit complained of some shortness of breath, unable to lay flat, abdominal distention, swelling in the left lower extremity and swelling in the stump of the right [id number] amputation to the point that he was unable to fit into his prosthetic leg. Oxygen saturation was 89% on room air Dr. Pelletier's office. 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 Timing/Duration: 2-3 Days Severity: Moderate Associated Systoms: Cough Allergies and Home Medications Allergies Coded Allergies: niacin (Unverified Allergy, Unknown, 06/26/10) rosuvastatin (Verified Allergy, Unknown, 04/20/07) fenofibrate (Unverified Adverse Reaction, Unknown, LIVER PROBLEMS, 01/23/15) Home Medications Acetaminophen 500 Mg Tablet, 1,000 MG PO Q4H PRN for PAIN-MILD, (Reported) Allopurinol 100 Mg Tablet, 100 MG PO DAILY, (Reported) Amitriptyline HCl 25 Mg Tablet, 25 MG PO HS, (Reported) Amlodipine Besylate 10 Mg Tablet, 10 MG PO DAILY, (Reported) Ascorbic Acid 500 Mg Tablet, 500 MG PO BID, (Reported) Aspirin 81 Mg Tablet.dr, 81 MG PO DAILY, (Reported) Calcium Carbonate/Vitamin D3 1 Each Tablet, 1 TAB PO DAILY, (Reported) Carvedilol 25 Mg Tablet, 25 MG PO BID, (Reported) Cholecalciferol (Vitamin D3) 2,000 Unit Capsule, 2,000 UNIT PO BID, (Reported) Docusate Sodium 100 Mg Capsule, 100 MG PO DAILY, (Reported) Ferrous Sulfate 325 Mg Tablet, 325 MG PO Q48H, (Reported) Finasteride 5 Mg Tablet, 5 MG PO HS, (Reported) Folic Acid 0.4 Mg Tablet, 0.4 MG PO BID, (Reported) Furosemide 40 Mg Tablet, 40 MG PO BID, (Reported) Gemfibrozil 600 Mg Tablet, 600 MG PO DAILY, (Reported) Hydralazine HCl 50 Mg Tablet, 50 MG PO TID, (Reported) Hydrocodone Bit/Acetaminophen 1 Each Tablet, 1-2 TAB PO Q4H PRN for PAIN- MODERATE, (Reported) Insulin Aspart 100 Unit/1 Ml Susp, 18 UNITS SC 0800,1200, (Reported) Insulin Aspart 100 Unit/1 Ml Susp, 25 UNIT SQ 1800, (Reported) Insulin Determir 1,000 Units/10 Ml Soln, 67 UNITS SC BID, (Reported) Meclizine HCl 25 Mg Tablet, 25 MG PO BID PRN for NAUSEA/VOMITING, (Reported) Nitroglycerin 0.4 Mg Tab.subl, 0.4 MG SL UD PRN for CHEST PAIN, (Reported) [place]-3/Dha/Epa/Fish Oil 1 Each Capsule, 1,000 MG PO BID, (Reported) Potassium Chloride 20 Meq Tablet.er, 20 MEQ PO DAILY, (Reported) Tamsulosin HCl 0.4 Mg Cap, 0.4 MG PO HS, (Reported) Valsartan 320 Mg Tablet, 320 MG PO HS, (Reported) Venlafaxine HCl 150 Mg Cap.er.24h, 150 MG PO DAILY, (Reported) Vitamin E Acetate 400 Unit Capsule, 400 UNIT PO DAILY, (Reported) Warfarin Sodium 7.5 Mg Tablet, 7.5 MG PO HS, (Reported) Patient Home Medication List Home Medication List Reviewed: Yes Review of Systems Review of Systems Constitutional: see HPI EENTM: see HPI Respiratory: see HPI, cough, orthopnea, short of breath Genitourinary: no symptoms reported Musculoskeletal: see HPI Skin: see HPI Psychiatric/Neurological: No Symptoms Reported Hematologic/Lymphatic: No Symptoms Reported Immunological/Allergic: no symptoms reported Past [id number] Hx Patient Social History Former Smoker, Quit: Jul 07, 2006 2nd Hand Smoke Exposure: No Recent Foreign Travel: No Contact w/Someone Who Travel: No Recent Hopitalizations: Yes Immunizations Up To Date Tetanus Booster (TDap): Unknown PED Vaccines UTD: No Seasonal Allergies Seasonal Allergies: No Past Medical History Surgeries: Yes (4 VESSEL CABG 2006; CARDIAC STENTS X 8; LEFT KNEE SCOPE) Cardiac, CABG, Coronary Stent, Orthopedic Respiratory: Yes (CPAP) Sleep Apnea, COPD Currently Using CPAP: Yes Currently Using BIPAP: No Cardiac: Yes Chronic Edema/Swelling, Coronary Artery Disease, Heart Attack, High Cholesterol, Hypertension, Syncope Neurological: Yes (3 PINCHED NERVES ON NECK ON LEFT SIDE; PERIPHERAL NEUROPATHY) Neuropathy, Vertigo Reproductive Disorders: No Genitourinary: No Gastrointestinal: Yes Gall Bladder Disease Musculoskeletal: Yes (CHRONIC NECK PAIN ; LEFT KNEE SCOPE) Degenerate Disk Disease, Arthritis, Chronic Back Pain Endocrine: Yes (INSULIN + PILLS; MORBID OBESITY) Diabetes, Insulin dep HEENT: No Loss of Vision: Bilateral Cancer: No Psychosocial: No Integumentary: Yes (CHRONIC DIABETIC FOOT ULCER RIGHT GREAT TOE) Recent Skin Changes Blood Disorders: No Family Medical History Cardiovascular disease 19 FATHER, Onset:Unknown FH: breast cancer G8 SISTER, Onset:50's - 60 FH: ovarian cancer 19 MOTHER, Onset:40's - 50 No Family History of: Cancer of mouth Heart Disease, Cancer Physical Exam Vital Signs Vital Signs - First Documented 10/11/19 12:44 Temp 35.1 Pulse 70 Resp 16 B/P (MAP) 166/87 (113) Pulse Ox 94 Capillary Refill : Height, Weight, BMI Height: 6'0.00" Weight: 322lbs. 1.0oz. 146.930090hj; 43.7 BMI Method:Stated General Appearance: No Apparent Distress, Chronically ill, Obese Eyes: Bilateral Eye Normal Inspection, Bilateral Eye PERRL, Bilateral Eye EOMI HEENT: PERRL/EOMI, TMs Normal Neck: Full Range of Motion, Normal Inspection Respiratory: No Accessory Muscle Use, No Respiratory Distress, Crackles (right base greater than left but present in both) Cardiovascular: Regular Rate, Rhythm, Normal Peripheral Pulses Gastrointestinal: Normal Bowel Sounds, Non Tender, Soft Extremity: Normal Capillary Refill, Normal Inspection, Other (2+ pitting edema left lower extremity, the right lobe of the stump does not have any pitting edema) Neurologic/Psychiatric: Alert, Oriented x3 Skin: Normal Color, Warm/Dry, Other (excoriations to the distal pointer finger dorsally left hand, 1 finger on the right hand as well, crusted erosion anterior left lower leg without secondary findings of cellulitis) Focused Exam Lactate Level 10/11/19 14:32: Lactic Acid Level Laboratory Tests Test 10/11/19 14:32 Progress/Results/Core Measures Suspected Sepsis SIRS Temperature: Pulse: Respiratory Rate: Laboratory Tests 10/11/19 12:47: White Blood Count 6.1 Blood Pressure / Mean: 10/11/19 14:32: Laboratory Tests 10/11/19 12:47: Platelet Count 150 10/11/19 12:59: INR Comment 4.0H 10/11/19 14:32: Results/Orders Lab Results Laboratory Tests Test 10/11/19 12:47 10/11/19 12:59 10/11/19 14:32 Range/Units White Blood Count 6.1 4.3-11.0 10^3/uL Red Blood Count 3.75 L 4.35-5.85 10^6/uL Hemoglobin 10.9 L 13.3-17.7 G/DL Hematocrit 32 L 40-54 % Mean Corpuscular Volume 85 80-99 FL Mean Corpuscular Hemoglobin 29 25-34 PG Mean Corpuscular Hemoglobin Concent 34 32-36 G/DL Red Cell Distribution Width 16.8 H 10.0-14.5 % Platelet Count 150 130-400 10^3/uL Mean Platelet Volume 10.7 H 7.4-10.4 FL Neutrophils (%) (Auto) 72 42-75 % Lymphocytes (%) (Auto) 16 12-44 % Monocytes (%) (Auto) 9 0-12 % Eosinophils (%) (Auto) 2 0-10 % Basophils (%) (Auto) 0 0-10 % Neutrophils # (Auto) 4.4 1.8-7.8 X 10^3 Lymphocytes # (Auto) 1.0 1.0-4.0 X 10^3 Monocytes # (Auto) 0.6 0.0-1.0 X 10^3 Eosinophils # (Auto) 0.1 0.0-0.3 10^3/uL Basophils # (Auto) 0.0 0.0-0.1 10^3/uL B-Type Natriuretic Peptide 182.1 H <100.0 PG/ML Prothrombin Time 40.6 H 12.2-14.7 SEC INR Comment 4.0 H 0.8-1.4 Micro Results Microbiology 10/11/19 Influenza Types A,B Antigen ([place]) - Final, Complete My Orders Orders - PRIMO FRANCOIS DENTURE TECHNICIAN Cbc With Automated Diff (10/11/19 12:34) Comprehensive Metabolic Panel (10/11/19 12:34) Ekg Tracing (10/11/19 12:34) BNP (10/11/19 12:34) Ed Iv/Invasive Line Start (10/11/19 12:34) Blood Culture (10/11/19 12:34) Lactic Acid Analyzer (10/11/19 12:34) Influenza A And B Antigens (10/11/19 12:34) Chest 1 View, Ap/Pa Only (10/11/19 12:50) Protime With Inr (10/11/19 12:59) Procalcitonin (Pct) (10/11/19 13:12) Troponin I (10/11/19 14:11) Thyroid Stimulating Hormone (10/11/19 14:11) Free T4 (Free Thyroxine) (10/11/19 14:11) Vital Signs/I&O 10/11/19 12:44 Temp 35.1 Pulse 70 Resp 16 B/P (MAP) 166/87 (113) Pulse Ox 94 Capillary Refill : Diagnostic Imaging Diagonstic Imaging: Xray Plain Films/CT/US/NM/MRI: chest Comments NAME: ELMO GARCIA [facility] REC#: [id number] PT STATUS: REG ER : 1950 PHYSICIAN: PRIMO FRANCOIS APRN ADMIT DATE: 10/11/19/ER Draft Date of Exam:10/11/19 CHEST 1 VIEW, AP/PA ONLY EXAMINATION: Portable erect AP chest at 1:13 PM. FINDINGS: The cardiomegaly and the sternotomy wires and surgical clips noted on the prior exam of 12/21/2018 are again evident and no different. The central pulmonary vascularity is prominent but does seem less striking than noted on the prior exam. There is no sign for failure or pneumonia at this time. A thin band of atelectasis has developed in the left lung base, however, since the prior study. The mediastinum is not widened. The osseous structures are intact. The right-sided PICC line seen previously has been moved. IMPRESSION: There is cardiomegaly and evidence of prior cardiac surgery but there is no sign of an acute cardiopulmonary abnormality. Dictated on workstation # [id number] Dict: 10/11/19 1330 Trans: 10/11/19 1338 [id number] Interpreted by: HAYLEE SAUNDERS MD Electronically signed by: Departure Impression Primary Impression: Orthopnea Additional Impression: Mild generalized edema Disposition: ADMITTED INPATIENT Condition: Stable Admissions Decision to Admit Reason: Admit from ER (General) Decision to Admit/Date: Oct 11, 2019 Time/Decision to Admit Time: 14:46 Departure-Patient Inst. Referrals: ELMO GRIFFITHS MD (PCP) Primary Care Physician PRIMO FRANCOIS APRN Oct 11, 2019 12:46
[2019-10-11 13:01] LABS: BASOPHILS % (AUTO) 0 % (0-10); EOSINOPHILS # (AUTO) 0.1 10^3/uL (0.0-0.3); EOSINOPHILS % (AUTO) 2 % (0-10); HEMATOCRIT 32 % (40-54); HEMOGLOBIN 10.9 G/DL (13.3-17.7); LYMPHOCYTES % (AUTO) 16 % (12-44); MEAN CORPUSCULAR HEMOGLOBIN 29 PG (25-34); MEAN CORPUSCULAR HGB CONC 34 G/DL (32-36); MEAN CORPUSCULAR VOLUME 85 FL (80-99); MEAN PLATELET VOLUME 10.7 FL (7.4-10.4); MONOCYTES # (AUTO) 0.6 X 10^3 (0.0-1.0); MONOCYTES % (AUTO) 9 % (0-12); NEUTROPHILS # (AUTO) 4.4 X 10^3 (1.8-7.8); NEUTROPHILS % (AUTO) 72 % (42-75); PLATELET COUNT 150 10^3/uL (130-400); RED CELL DISTRIBUTION WIDTH 16.8 % (10.0-14.5); WHITE BLOOD COUNT 6.1 10^3/uL (4.3-11.0)
[2019-10-11 13:12] LABS: PROTHROMBIN TIME PATIENT 40.6 SEC (12.2-14.7)
--- NOTE | 2019-10-11 13:39 | Diagnostic Imaging Report ---
EXAMINATION: Portable erect AP chest at 1:13 PM. FINDINGS: The cardiomegaly and the sternotomy wires and surgical clips noted on the prior exam of 12/21/2018 are again evident and no different. The central pulmonary vascularity is prominent but does seem less striking than noted on the prior exam. There is no sign for failure or pneumonia at this time. A thin band of atelectasis has developed in the left lung base, however, since the prior study. The mediastinum is not widened. The osseous structures are intact. The right-sided PICC line seen previously has been moved. IMPRESSION: There is cardiomegaly and evidence of prior cardiac surgery but there is no sign of an acute cardiopulmonary abnormality. Dictated by: Dictated on workstation # [id number]
[2019-10-11 15:01] LABS: ALANINE AMINOTRANSFERASE 21 U/L (0-55); ALBUMIN 3.9 GM/DL (3.2-4.5); ALKALINE PHOSPHATASE 76 U/L (40-136); BILIRUBIN,TOTAL 0.4 MG/DL (0.1-1.0); BUN/CREATININE RATIO 22; CALCIUM 9.5 MG/DL (8.5-10.1); CARBON DIOXIDE 22 MMOL/L (21-32); CHLORIDE 104 MMOL/L (98-107); CREATININE SERUM 1.74 MG/DL (0.60-1.30); GFR ESTIMATED 39; GLUCOSE 136 MG/DL (70-105); SODIUM 137 MMOL/L (135-145); TOTAL PROTEIN 6.8 GM/DL (6.4-8.2)
[2019-10-11 15:22] LABS: FREE T4 (FREE THYROXINE) 0.87 NG/DL (0.70-1.48)
[2019-10-11] MEDS ORDERED: FUROSEMIDE 40 MG/4 ML INJ (LASIX) IVP ONE (15:45)
--- NOTE | 2019-10-11 16:30 | NUR ---
Report received from Kerry MONTEMAYOR
--- NOTE | 2019-10-11 16:30 | NUR ---
DR ALFRED HERE TALKING TO PT AT THIS TIME.
[2019-10-11] MEDS ORDERED: RT-ALBUTEROL/IPRATROPIUM 3 ML (DUONEB) VIAL INH ONE (16:45)
[2019-10-11 16:51] VITALS: BP 162/82
--- NOTE | 2019-10-11 16:54 | Consultation-Cardiology ---
HPI-Cardiology Cardiology Consultation Date of Consultation 10/11/19 Date of Admission Time Seen by Provider: 16:51 Indication: shortness of breath HPI 69 years old gentleman with extensive cardiac history as described below, multiple intervention, CABG 1 after multiple failed intervention done in 2016 at [facility], right BKA done in November 2018. Hyperlipidemia and h ypertension. Has been doing well until the past week where he has been having increasing dyspnea with exertion and at rest. Worsening pedal edema and increased abdominal swelling. Denied any chest pain. No syncope. Home Medications & Allergies Allergies: Coded Allergies: niacin (Unverified Allergy, Unknown, 06/26/10) rosuvastatin (Verified Allergy, Unknown, 04/20/07) fenofibrate (Unverified Adverse Reaction, Unknown, LIVER PROBLEMS, 01/23/15) Obtain copy of his medication list [id number] Hx Patient Social History Alcohol Use: Denies Use Recreational Drug Use: Yes Drug of Choice: past hx drug use. Smoking Status: Former Smoker Former smoker/When Quit: Aug 07, 2005 2nd Hand Smoke Exposure: No Recent Foreign Travel: No Recent Infectious Disease Expo: No Recent Hopitalizations: Yes Immunizations Up To Date Tetanus Booster (TDap): Unknown Past Medical History Discussed below Family Medical History Significant Family History: Heart Disease, Cancer Family History: Cardiovascular disease 19 FATHER, Onset:Unknown FH: breast cancer G8 SISTER, Onset:50's - 60 FH: ovarian cancer 19 MOTHER, Onset:40's - 50 No Family History of: Cancer of mouth Review of Systems-General Review of Systems Constitutional: see HPI, dizziness, malaise EENTM: see HPI, no symptoms reported Respiratory: see HPI, cough, dyspnea on exertion; No hemoptysis; orthopnea; No phlegm; short of breath; No stridor, No wheezing, No other Cardiovascular: see HPI; No chest pain, No Hx of Intervention, No palpitations, No syncope, No vascular heart diseas, No other Gastrointestinal: no symptoms reported, see HPI Genitourinary: no symptoms reported, see HPI Musculoskeletal: see HPI, other (right BKA) Skin: see HPI Psychiatric/Neurological: No Symptoms Reported Reviewed Test Results Reviewed Test Results Lab Laboratory Tests Test 10/11/19 12:47 10/11/19 12:59 10/11/19 14:32 Range/Units White Blood Count 6.1 4.3-11.0 10^3/uL Red Blood Count 3.75 L 4.35-5.85 10^6/uL Hemoglobin 10.9 L 13.3-17.7 G/DL Hematocrit 32 L 40-54 % Mean Corpuscular Volume 85 80-99 FL Mean Corpuscular Hemoglobin 29 25-34 PG Mean Corpuscular Hemoglobin Concent 34 32-36 G/DL Red Cell Distribution Width 16.8 H 10.0-14.5 % Platelet Count 150 130-400 10^3/uL Mean Platelet Volume 10.7 H 7.4-10.4 FL Neutrophils (%) (Auto) 72 42-75 % Lymphocytes (%) (Auto) 16 12-44 % Monocytes (%) (Auto) 9 0-12 % Eosinophils (%) (Auto) 2 0-10 % Basophils (%) (Auto) 0 0-10 % Neutrophils # (Auto) 4.4 1.8-7.8 X 10^3 Lymphocytes # (Auto) 1.0 1.0-4.0 X 10^3 Monocytes # (Auto) 0.6 0.0-1.0 X 10^3 Eosinophils # (Auto) 0.1 0.0-0.3 10^3/uL Basophils # (Auto) 0.0 0.0-0.1 10^3/uL B-Type Natriuretic Peptide 182.1 H <100.0 PG/ML Prothrombin Time 40.6 H 12.2-14.7 SEC INR Comment 4.0 H 0.8-1.4 Sodium Level 137 135-145 MMOL/L Potassium Level 5.0 3.6-5.0 MMOL/L Chloride Level 104 98-107 MMOL/L Carbon Dioxide Level 22 21-32 MMOL/L Anion Gap 11 5-14 MMOL/L Blood Urea Nitrogen 38 H 7-18 MG/DL Creatinine 1.74 H 0.60-1.30 MG/DL Estimat Glomerular Filtration Rate 39 BUN/Creatinine Ratio 22 Glucose Level 136 H 70-105 MG/DL Lactic Acid Level 1.00 0.50-2.00 MMOL/L Calcium Level 9.5 8.5-10.1 MG/DL Corrected Calcium 9.6 8.5-10.1 MG/DL Total Bilirubin 0.4 0.1-1.0 MG/DL Aspartate Amino Transf (AST/SGOT) 21 5-34 U/L Alanine Aminotransferase (ALT/SGPT) 21 0-55 U/L Alkaline Phosphatase 76 40-136 U/L Troponin I < 0.028 <0.028 NG/ML Total Protein 6.8 6.4-8.2 GM/DL Albumin 3.9 3.2-4.5 GM/DL Procalcitonin 0.05 <0.10 NG/ML Thyroid Stimulating Hormone (TSH) 3.91 0.35-4.94 UIU/ML Free Thyroxine 0.87 0.70-1.48 NG/DL Physical Exam Physical Exam Vital Signs Vital Signs - First Documented 10/11/19 10/11/19 12:44 16:30 Temp 35.1 Pulse 70 Resp 16 B/P (MAP) 166/87 (113) Pulse Ox 94 O2 Delivery Nasal Cannula O2 Flow Rate 2.00 Capillary Refill : Less Than 3 Seconds Height, Weight, BMI Height: 6'0.00" Weight: 322lbs. 1.0oz. 146.268637ei; 40.00 BMI Method:Stated General Appearance: No Apparent Distress, Chronically ill, Obese Eyes: Bilateral Eye Normal Inspection, Bilateral Eye PERRL, Bilateral Eye EOMI HEENT: PERRL/EOMI, TMs Normal Neck: Full Range of Motion, Normal Inspection Respiratory: No Accessory Muscle Use, No Respiratory Distress, Crackles (right base greater than left but present in both), Wheezing Cardiovascular: Regular Rate, Rhythm, Normal Peripheral Pulses, Systolic Murmur Gastrointestinal: Normal Bowel Sounds, Non Tender, Soft Extremity: Normal Capillary Refill, Normal Inspection, Other (2+ pitting edema left lower extremity, the right lobe of the stump does not have any pitting edema) Neurologic/Psychiatric: Alert, Oriented x3 Skin: Normal Color, Warm/Dry, Other (excoriations to the distal pointer finger dorsally left hand, 1 finger on the right hand as well, crusted erosion anterior left lower leg without secondary findings of cellulitis) A/P-Cardiology Admission Diagnosis Shortness of breath Coronary artery disease Acute renal insufficiency Hypertension Assessment/Plan Shortness of breath, peripheral edema, worsening recently over the past week. Denied any chest pain. Started on IV Lasix and bronchodilators, I will evaluate 2-D echocardiogram Acute on chronic renal insufficiency, monitor renal function closely Coronary artery disease, history of multiple interventions, total of 8 stents, had bypass surgery using single vessel after failed multiple attempts for inter vention done at [facility] in 2017. No recent cardiac workup Peripheral arterial disease, right BKA, had progressive wound that resulted in the amputation done in November 2018. Hypertension, restart home medication monitor blood pressure Hyperlipidemia, intolerant to multiple statin, evaluate liver enzymes. Lipids COPD, obstructive sleep apnea, maintained on C Pap, persistent dyspnea Pulmonary hypertension. Reevaluate 2-D echocardiogram Diabetes mellitus, followed and managed by primary care physician Obesity, educated on weight loss Carotid stenosis, totally occluded left ICA, less than 40 percent on the right side. Followed at primary care physician Vertigo, dizziness, chronic. BARBIE ALFRED MD Oct 11, 2019 4:53 pm
[2019-10-11] MEDS ORDERED: ENOXAPARIN 100 MG/1 ML (LOVENOX) SYR SC SCH (17:00)
[2019-10-11] MEDS ORDERED: CATHETER FLUSH 10 ML SYR IV PRN (17:15)
[2019-10-11] MEDS ORDERED: RT-ALBUTEROL/IPRATROPIUM 3 ML (DUONEB) VIAL INH SCH (18:00)
[2019-10-11] MEDS: FUROSEMIDE 40 MG/4 ML INJ (LASIX) IVP SCH (18:29)
[2019-10-11 19:32] VITALS: BP 162/82
[2019-10-11 20:00] VITALS: BP 149/76
[2019-10-11] MEDS ORDERED: ENOXAPARIN 40 MG/0.4 ML (LOVENOX) SYR SQ SCH (20:15)
[2019-10-11] MEDS: CARVEDILOL 12.5 MG (COREG) TABLET PO SCH (20:18)
[2019-10-11] MEDS: hydrALAZINE (APRESOLINE) 25 MG TAB PO SCH (20:18)
[2019-10-11] MEDS ORDERED: ENOXAPARIN 60 MG/0.6 ML (LOVENOX) SYR SC SCH (20:30)
[2019-10-11] MEDS ORDERED: VALSARTAN 160 MG (DIOVAN) TABLET PO SCH (21:00)
[2019-10-11] MEDS ORDERED: NON-FORMULARY MEDICATION 1 EA EA (Hydralazine HCl 50 MG) PO SCH (21:00)
[2019-10-11] MEDS ORDERED: NON-FORMULARY MEDICATION 1 EA EA (Carvedilol 25 MG) PO SCH (21:00)
[2019-10-11] MEDS ORDERED: NON-FORMULARY MEDICATION 1 EA EA (Valsartan 320 MG) PO SCH (21:00)
[2019-10-11] MEDS: CATHETER FLUSH 10 ML SYR IV SCH (22:50)
[2019-10-11] MEDS: RT-ALBUTEROL/IPRATROPIUM 3 ML (DUONEB) VIAL INH SCH (22:51)
[2019-10-11 23:20] VITALS: BP 159/72
[2019-10-12] MEDS: RT-ALBUTEROL/IPRATROPIUM 3 ML (DUONEB) VIAL INH SCH ×6 (02:41→22:15)
[2019-10-12 04:09] VITALS: BP 149/74
[2019-10-12] MEDS: CATHETER FLUSH 10 ML SYR IV SCH ×3 (05:40→22:00)
[2019-10-12] MEDS: FUROSEMIDE 40 MG/4 ML INJ (LASIX) IVP SCH ×2 (06:16→17:14)
[2019-10-12 06:59] LABS: BASOPHILS % (AUTO) 0 % (0-10); EOSINOPHILS # (AUTO) 0.2 10^3/uL (0.0-0.3); EOSINOPHILS % (AUTO) 2 % (0-10); HEMATOCRIT 31 % (40-54); HEMOGLOBIN 10.4 G/DL (13.3-17.7); LYMPHOCYTES # (AUTO) 1.2 X 10^3 (1.0-4.0); LYMPHOCYTES % (AUTO) 19 % (12-44); MEAN CORPUSCULAR HEMOGLOBIN 29 PG (25-34); MEAN CORPUSCULAR HGB CONC 33 G/DL (32-36); MEAN CORPUSCULAR VOLUME 86 FL (80-99); MEAN PLATELET VOLUME 10.7 FL (7.4-10.4); MONOCYTES # (AUTO) 0.7 X 10^3 (0.0-1.0); MONOCYTES % (AUTO) 11 % (0-12); NEUTROPHILS # (AUTO) 4.4 X 10^3 (1.8-7.8); NEUTROPHILS % (AUTO) 67 % (42-75); PLATELET COUNT 150 10^3/uL (130-400); RED CELL DISTRIBUTION WIDTH 17.1 % (10.0-14.5); WHITE BLOOD COUNT 6.5 10^3/uL (4.3-11.0)
[2019-10-12 07:21] LABS: ALBUMIN 3.8 GM/DL (3.2-4.5); BILIRUBIN,TOTAL 0.6 MG/DL (0.1-1.0); CALCIUM 9.1 MG/DL (8.5-10.1); CREATININE SERUM 1.9 MG/DL (0.60-1.30); TOTAL PROTEIN 6.6 GM/DL (6.4-8.2)
[2019-10-12 07:30] LABS: INR 3.9 (0.8-1.4); PROTHROMBIN TIME PATIENT 40.2 SEC (12.2-14.7)
[2019-10-12 07:47] VITALS: BP 152/70
[2019-10-12] MEDS ORDERED: ASPIRIN E.C. 81 MG (ECOTRIN) TAB PO SCH (09:00)
[2019-10-12] MEDS: hydrALAZINE (APRESOLINE) 25 MG TAB PO SCH ×3 (09:22→21:29)
[2019-10-12] MEDS: CARVEDILOL 12.5 MG (COREG) TABLET PO SCH ×2 (09:22→21:30)
[2019-10-12] MEDS: amLODIPine 10 MG (NORVASC) TAB PO SCH (09:22)
--- NOTE | 2019-10-12 09:59 | NUR ---
2ML OF DEFINITY SOLUTION GIVEN. PT TOLERATED IT WELL.
[2019-10-12] MEDS: GEMFIBROZIL 600 MG (LOPID) TAB PO SCH (12:08)
--- NOTE | 2019-10-12 12:08 | Cardiology Progress Note ---
Subjective Date Seen by Provider: Oct 12, 2019 Time Seen by Provider: 12:06 Subjective/Events-last exam Patient is laying down in bed, feeling better, still having some dyspnea Review of Systems General: No Chills, No Night Sweats; Fatigue, Malaise; No Appetite, No Other HEENT: No Head Aches, No Visual Changes, No Eye Pain, No Ear Pain, No Dysphasia, No Sinus Congestion, No Post Nasal Drip, No Sore Throat, No Other Pulmonary: Dyspnea, Cough; No Pleuritic Chest Pain, No Other Cardiovascular: No: Chest Pain, Palpitations, Orthopnea, Paroxysmal Noc. Dyspnea, Edema, Lt Headedness, Other Focused Exam Lactate Level 10/11/19 14:32: Lactic Acid Level 1.00 Objective-Cardiology Exam Last Set of Vital Signs Vital Signs 10/11/19 10/12/19 10/12/19 19:32 07:47 08:56 Temp 36.8 Pulse 65 Resp 22 B/P (MAP) 152/70 (97) Pulse Ox 95 O2 Delivery NIV CPAP O2 Flow Rate 3.50 FiO2 32 Capillary Refill : Less Than 3 Seconds I&O Intake and Output 10/12/19 00:00 Intake Total 840 ml Output Total 3750 ml Balance -2910 ml Intake Oral 840 ml Output Urine Total 3750 ml Daily Weight Change No No General: Alert, Oriented X3, Cooperative HEENT: Atraumatic, PERRLA Neck: Supple, No JVD Lungs: Clear to Auscultation, Normal Air Movement Heart: Regular Rate, Normal S1, Normal S2 Abdomen: Normal Bowel Sounds, Soft Extremities: No Clubbing, Other (Right BKA) Skin: No Rashes Neuro: Normal Speech, Strength at 5/5 X4 Ext Psych/Mental Status: Mental Status NL Results Lab Laboratory Tests 10/11/19 12:47 10/11/19 14:32 10/12/19 06:05 A/P-Cardiology Admission Diagnosis Shortness of breath Coronary artery disease Acute renal insufficiency Hypertension Assessment/Plan Shortness of breath, peripheral edema, echocardiogram showed normal LV size and function, normal PA pressure. Improved with diuretics. Acute on chronic renal insufficiency, monitor renal function closely Coronary artery disease, history of multiple interventions, total of 8 stents, had bypass surgery using single vessel after failed multiple attempts for intervention done at [facility] in 2017. No recent cardiac workup Peripheral arterial disease, right BKA, had progressive wound that resulted in the amputation done in November 2018. Hypertension, restart home medication monitor blood pressure Hyperlipidemia, intolerant to multiple statin, evaluate liver enzymes. Lipids COPD, obstructive sleep apnea, maintained on C Pap, persistent dyspnea Pulmonary hypertension. Reevaluate 2-D echocardiogram Diabetes mellitus, followed and managed by primary care physician Obesity, educated on weight loss Carotid stenosis, totally occluded left ICA, less than 40 percent on the right side. Followed at primary care physician Vertigo, dizziness, chronic. Clinically patient is better, okay for discharge from cardiology standpoint and follow up as an outpatient with his primary manager of disaster recovery Clinical Quality Measures DVT/VTE Risk/Contraindication: Risk Factor Score Per Nursin RFS Level Per Nursing on Admit: 4+=Very High Contraindications-Pharm: Other *list below* Other: PT/INR ELEVATED BARBIE ALFRED MD Oct 12, 2019 12:08
[2019-10-12 12:51] VITALS: BP 148/76
[2019-10-12] MEDS: inSUlin ASPART (NovoLOG) 1 UNIT/0.01 ML (CHARGE PER UNIT) SC SCH ×3 (12:53→21:00)
[2019-10-12] MEDS ORDERED: HYDR100T27 PO (14:03)
[2019-10-12] MEDS ORDERED: INSU100V16 SQ (14:03)
[2019-10-12] MEDS ORDERED: FOLI1TAB24 PO (14:09)
[2019-10-12] MEDS ORDERED: CHOL200012 PO (14:09)
[2019-10-12] MEDS ORDERED: ONDA8TAB6 PO (14:13)
[2019-10-12] MEDS ORDERED: MAGN400T39 PO (14:13)
[2019-10-12] MEDS ORDERED: IPRA3AMP31 IH (14:13)
[2019-10-12] MEDS ORDERED: WARF10TA44 PO (14:56)
[2019-10-12] MEDS ORDERED: MECLIZINE 25 MG (ANTIVERT) TAB PO PRN (15:00)
--- NOTE | 2019-10-12 15:05 | History & Physical-Hospitalist ---
History of Present Illness HPI/Chief Complaint Pt is a 69yoCM well known to me with a PMH of CAD s/p CABG, PVD s/p BKA, IDDMII who presented to the ER due to edema. He was seen at Dr [facility]elleiter[facility] for an appointment for his leg and was found to be satting 89% of room air. He states that he had so much edema he could not fit his prosthesis on his leg and his abd omen was swollen. Source: patient Exam Limitations: no limitations Date Seen 10/12/19 Time Seen by a Provider: 15:01 Attending Physician Antonio Barraza MD PCP Bin Rosales MD Referring Physician Date of Admission Oct 11, 2019 at 14:47 Home Medications & Allergies Home Medications Reviewed patient Home Medication Reconciliation performed by pharmacy medication reconciliations ecg technician and/or nursing. Patients Allergies have been reviewed. Allergies Allergies Coded Allergies niacin (Unverified Allergy, Unknown, 06/26/10) rosuvastatin (Verified Allergy, Unknown, 04/20/07) fenofibrate (Unverified Adverse Reaction, Unknown, LIVER PROBLEMS, 01/23/15) Past Brrtvwt-Mnxvhw-Dwwngi Hx Past Med/Social Hx: Reviewed Nursing Past Med/Soc Hx Patient Social History Employed/Student: retired Alcohol Use: Denies Use Recreational Drug Use: Yes Drug of Choice: past hx drug use. Smoking Status: Former Smoker Former Smoker, Quit: Jul 07, 2006 2nd Hand Smoke Exposure: No Physical Abuse Screen: No Sexual Abuse: No Recent Foreign Travel: No Contact w/other who traveled: No Recent Hopitalizations: Yes Recent Infectious Disease Expo: No Immunizations Up To Date Tetanus Booster (TDap): Unknown Pediatric: No Seasonal Allergies Seasonal Allergies: No Past Medical History Surgeries: Cardiac, CABG, Coronary Stent, Orthopedic Respiratory: Sleep Apnea Currently Using CPAP: Yes Currently Using BIPAP: No Cardiac: Chronic Edema/Swelling, Coronary Artery Disease, Heart Attack, High Cholesterol, Hypertension, Syncope Neurological: Neuropathy, Vertigo Reproductive: No Gastrointestinal: Gall Bladder Disease Musculoskeletal: Degenerate Disk Disease, Arthritis, Chronic Back Pain Endocrine: Diabetes, Insulin dep Loss of Vision: Bilateral Skin/Integumentary: Recent Skin Changes History of Blood Disorders: No Family History Reviewed Nursing Family Hx Cardiovascular disease 19 FATHER, Onset:Unknown FH: breast cancer G8 SISTER, Onset:50's - 60 FH: ovarian cancer 19 MOTHER, Onset:40's - 50 No Family History of: Cancer of mouth Heart Disease, Cancer Review of Systems Constitutional: No chills Respiratory: dyspnea on exertion, orthopnea; No phlegm; short of breath Cardiovascular: No chest pain; edema, Hx of Intervention; No palpitations Gastrointestinal: No abdominal pain, No nausea, No vomiting; other (abdominal distention) Musculoskeletal: no symptoms reported Skin: no symptoms reported Psychiatric/Neurological: No Symptoms Reported Physical Exam Physical Exam Vital Signs Vital Signs - First Documented 10/11/19 10/11/19 10/11/19 12:44 16:30 19:32 Temp 35.1 Pulse 70 Resp 16 B/P (MAP) 166/87 (113) Pulse Ox 94 O2 Delivery Nasal Cannula O2 Flow Rate 2.00 FiO2 32 Capillary Refill : Less Than 3 Seconds Height, Weight, BMI Height: 6'0.00" Weight: 322lbs. 1.0oz. 146.022135em; 50.36 BMI Method:Stated General Appearance: No Apparent Distress, Chronically ill, Obese HEENT: Moist Mucous Membranes; No Scleral Icterus (L), No Scleral Icterus (R) Neck: Normal Inspection, Supple Respiratory: Lungs Clear, No Accessory Muscle Use, No Respiratory Distress Cardiovascular: Regular Rate, Rhythm, No Murmur Gastrointestinal: Normal Bowel Sounds, Non Tender, Soft Extremity: No Pedal Edema, Other (s/p BKA on left) Neurologic/Psychiatric: Alert, Oriented x3, Normal Mood/Affect Skin: Normal Color, Warm/Dry Results Results/Procedures Labs Laboratory Tests 10/11/19 12:47 10/11/19 14:32 10/12/19 06:05 Patient resulted labs reviewed. Imaging Date of Exam:10/11/19 CHEST 1 VIEW, AP/PA ONLY EXAMINATION: Portable erect AP chest at 1:13 PM. FINDINGS: The cardiomegaly and the sternotomy wires and surgical clips noted on the prior exam of 12/21/2018 are again evident and no different. The central pulmonary vascularity is prominent but does seem less striking than noted on the prior exam. There is no sign for failure or pneumonia at this time. A thin band of atelectasis has developed in the left lung base, however, since the prior study. The mediastinum is not widened. The osseous structures are intact. The right-sided PICC line seen previously has been moved. IMPRESSION: There is cardiomegaly and evidence of prior cardiac surgery but there is no sign of an acute cardiopulmonary abnormality. Assessment/Plan Admission Diagnosis CHF Exacerbation Admission Status: Observation Assessment and Plan CHF exacerbation CAD s/p CABG PAD s/k BKA Cardiology consulted, appreciate recs Echo reveals EF of 50% Continue IV lasix BNP 182 CKD Creatinine at baseline Trend with diuresis IDDMII Continue home insulin amputee PT/OT Dispo: Lives in independent living at [place]. Will get PT/OT to ensure safe transfers, plan for DC home tomorrow. Clinical Quality Measures DVT/VTE Risk/Contraindication: Risk Factor Score Per Nursin RFS Level Per Nursing on Admit: 4+=Very High Contraindications-Pharm: Other *list below* Other: PT/INR ELEVATED ANTONIO BARRAZA MD Oct 12, 2019 15:05
--- NOTE | 2019-10-12 15:29 | NUR ---
SPOKE WITH THE PT, WENT THRU THE EXT MED HISTORY AND GOT A MED LIST FROM DR. TAN OFFICE TO COMPLETE THE MED REC. PT IS UNSURE OF WHAT AND HOW HE TAKES HIS MEDICATIONS, THEREFORE I USED THE EXT MED HISTORY AND THE LIST FROM HIS PCP TO ENTER THE MEDS (OFFICE SEEMED CONCERNED ABOUT COMPLIANCE ESPECIALLY WITH THE WARFARIN AND DIABETIC MEDS) WARFARIN: ACCORDING TO DR. TAN OFFICE HE WAS SEEN YESTERDAY AND THEY WERE DROPPING HIS DOSE DOWN DUE TO HIS INR. THEY WERE GOING TO HAVE HIM ALTERNATE 5MG AND 10 MG. BEFORE THE PT WAS ADMITTED HE WAS TAKING WARFARIN 10MG 1 TAB DAILY. THE DIRECTIONS WERE TO TAKE 1 TAB EVERY DAY EXCEPT WEDNESDAY AND WEDNESDAY BUT DOMINICK OFFICE SAID HE JUST TAKES IT ALL THE TIME. OTC MEDS: CALCIUM W/ VIT D ASPIRIN FISH OIL FOLIC ACID VIT D MAGNESIUM VIT E VIT C
--- NOTE | 2019-10-12 15:36 | Physical Therapy Evaluation ---
PT Evaluation-General Medical Diagnosis Admission Date Oct 11, 2019 at 14:47 Medical Diagnosis: orthopnea/edema Onset Date: Oct 11, 2019 Therapy Diagnosis Therapy Diagnosis: generalized weakness/debility Height/Weight Height (Feet): 6 Height (Inches): 0.00 Weight (Pounds): 322 Weight (Ounces): 1.0 Precautions Precautions/Isolations: Fall Prevention, Standard Precautions Weight Bear Status Right Lower Extremity: Right Weight Bearing/Tolerated Left Lower Extremity: Left Weight Bearing/Tolerated Referral Physician: Madi Reason for Referral: Evaluation/Treatment Medical History Pertinent Medical History: Arthritis, CABG, CAD, COPD, DM, HTN, NV, Neuropathy Additional Medical History morbid obesity Current History ER secondary to abdominal and LE edema Reviewed History: Yes Social History Home: Assisted Living Prior Prior Level of Function SCALE: Activities may be completed with or without assistive devices. 1-Ffczfipsgu-jslcdzc completes the activity by him/herself with no assistance from a helper. 5-Set-up or Clean-up Assistance-helper sets up or cleans up; patient completes activity. [place] assists only prior to or following the activity. 4-Supervision or Touching Assistance-helper provides verbal cues and/or touching/steadying and/or contact guard assistance as patient completes activity. Assistance may be provided throughout the activity or intermittently. 3-Partial/Moderate Assistance-helper does LESS THAN HALF the effort. [place] lifts, holds or supports trunk or limbs, but provides less than half the effort. 2-Substantial/Maximal Assistance-helper does MORE THAN HALF the effort. [place] lifts or holds trunk or limbs and provides more than half the effort. 8-Zrtdylivi-edqdms does ALL the effort. Patient does none of the effort to complete the activity. Or, the assistance of 2 or more helpers is required for the patient to complete the activity. If activity was not attempted, code reason: 7-Patient Refused. 9-Not Applicable-not attempted and the patient did not perform the activity before the current illness, exacerbation or injury. 10-Not Attempted due to Environmental Limitations-(lack of equipment, weather restraints, etc.). 88-Not Attempted due to Medical Conditions or Safety Concerns. Bed Mobility: 3 Transfers (B,C,W/C): 3 Gait: 9 Stairs: 9 Wheelchair Mobility: 4 Indoor Mobility (Ambulation): Not Applicalbe Stairs: Not Applicalbe Prior Devices Use: Manual wheelchair, Walker PT Evaluation-Current Subjective Patient is adamant that therapy be complete by 1529 due to Jeopardy is coming and he is not going to miss it for anything. Pain Numeric Pain Scale: 0-No Pain Location: No Pain Reported Objective Patient Orientation: Normal For Age Attachments: Oxygen ROM/Strength ROM Lower Extremities right BKA/left LE WFL Strength Lower Extremities Left LE 2/5 grossly Integumentary/Posture Integumentary refer to nursing notes Bladder Incontinence: Bergeron Cath Neuromuscular (Tone, Coordination, Reflexes) grossly intact Sensory Vision: Functional Hearing: Functional Sensation Right Lower Extremit: Impaired Sensation Left Lower Extremity: Impaired Transfers Roll Left to Right (QC): 1 Patient adamantly declined OOB activity/dependent x 2 with bed mobility and repositioning in Trendelenburg position Gait Does the Patient Walk?: No and Walking Goal NOT indicated Assessment/Needs 69 y.o. male, will be seen by skilled PT to address functional strength and mobility to improve current LOF. Patient appears to self limit. Rehab Potential: Guarded Post Rehab Potential-Barriers: compliance PT Hospitalist Physician Goals Hospitalist Physician Goals PT Hospitalist Physician Goals Time Frame: Oct 21, 2019 Roll Left & Right (QC): 3 Sit to Lying (QC): 3 Lying-Sitting on Side/Bed(QC): 3 Sit to Stand (QC): 3 Chair/Cdy-fc-Xrhrv Xfer(QC): 3 PT Plan Problem List Problem List: Activity Tolerance, Functional Strength, Safety, Balance, Transfer, Bed Mobility Treatment/Plan Treatment Plan: Continue Plan of Care Treatment Plan: Bed Mobility, Education, Functional Activity Farshad, Functional Strength, Safety, Therapeutic Exercise, Transfers Treatment Duration: Oct 21, 2019 Frequency: 5 times per week Estimated Hrs Per Day: .25 hour per day Patient and/or Family Agrees t: Yes Discharge Recommendations Therapy Discharge Recommendati: Other, See Comments (correction facility) Time/GCodes Time In: 1519 Time Out: 1529 Total Billed Treatment Time: 10 Total Billed Treatment 1 visit EVLowC 10 min ROSELYN FREEMAN PT Oct 12, 2019 15:36
--- NOTE | 2019-10-12 15:47 | Occupational Therapy Eval ---
OT Evaluation-General/PLF Medical Diagnosis Admission Date Oct 11, 2019 at 14:47 Medical Diagnosis: orthopnea/edema Onset Date: Oct 11, 2019 Therapy Diagnosis Therapy Diagnosis: Weakness, decreased ADL skills Height/Weight Height (Feet): 6 Height (Inches): 0.00 Weight (Pounds): 322 Weight (Ounces): 1.0 Precautions Precautions/Isolations: Fall Prevention, Standard Precautions Safety Interventions: Bed Exit Alarm Referral Physician: Madi Referral Reason: Activity Tolerance, Self Care, Evaluation/Treatment, Strengthening/ROM Medical History Pertinent Medical History: Arthritis, CABG, CAD, COPD, DM, HTN, GA, Neuropathy Additional Medical History Right BKA Current History Pt. went to physician office. Increased edema noted and SOA. Reviewed History: Yes Social History Home: Assisted Living Entry Into Home: Level Entry ADL-Prior Level of Function SCALE: Activities may be completed with or without assistive devices. 0-Jbqttmypzo-axtruuz completes the activity by him/herself with no assistance from a helper. 5-Set-up or Clean-up Assistance-helper sets up or cleans up; patient completes activity. [place] assists only prior to or following the activity. 4-Supervision or Touching Assistance-helper provides verbal cues and/or touching/steadying and/or contact guard assistance as patient completes activity. Assistance may be provided throughout the activity or intermittently. 3-Partial/Moderate Assistance-helper does LESS THAN HALF the effort. [place] lifts, holds or supports trunk or limbs, but provides less than half the effort. 2-Substantial/Maximal Assistance-helper does MORE THAN HALF the effort. [place] lifts or holds trunk or limbs and provides more than half the effort. 6-Wwdkkzuny-eyuqtp does ALL the effort. Patient does none of the effort to co mplete the activity. Or, the assistance of 2 or more helpers is required for the patient to complete the activity. If activity was not attempted, code reason: 7-Patient Refused. 9-Not Applicable-not attempted and the patient did not perform the activity before the current illness, exacerbation or injury. 10-Not Attempted due to Environmental Limitations-(lack of equipment, weather restraints, etc.). 88-Not Attempted due to Medical Conditions or Safety Concerns. ADL PLOF Comments Pt. reports that he was independent with ADLs, because, "I live on my own." Pt. also then verbalizes that he lives in an assisted living, ([facility] [facility]), and has help from someone 3 days a week to shower and dress. Self Care: Needed Some Help Functional Cognition: Unknown DME/Equipment: Bath Chair, Shower Drive Self: No OT Current Status Subjective No pain reported. Mental Status/Objective Patient Orientation: Person Current Upper Extremity ROM WFL ADL-Treatment Pt. becomes agitated due to interruption of Jeopardy. Pt. states that he is not going to do anything, and that this clinician has "3 minutes" before his show comes on. Verbalizes that "they knew better at the other place than to interrupt Jeopardy." OT educates pt. on need for skilled therapy to gain strength, reduce edema. Pt. states that he did get up one time today, to use the commode. Continues to decline OOB treatment or even sitting on side of bed. Agrees to bed mobility and requires max x 2 for bed mobility, with cues for hand placement and how to assist himself. All needs met and pt. continues to watch TV. Education OT Patient Education: Correct positioning, Purpose of tx/functional activities, Rehab process, Transfer techniques Teaching Recipient: Patient Teaching Methods: Discussion Response to Teaching: Reinforcement Needed OT Conductor Freight Goals Conductor Freight Goals Time Frame: Oct 19, 2019 Eating (QC): 6 Oral Hygiene (QC): 5 Toileting Hygiene (QC): 4 Additional Goals: 3-ImproveStrength/Farshad 1=Demonstrate adherence to instructed precautions during ADL tasks. 2=Patient will verbalize/demonstrate understanding of assistive devices/modifications for ADL. 3=Patient will improve strength/tolerance for activity to enable patient to perform ADL's. OT Education/Plan Problem List/Assessment Assessment: Decreased Activ Tolerance, Dependent Transfers, Impaired Bed Mobility, Impaired I ADL's, Impaired Self-Care Skills Discharge Recommendations Plan/Recommendations: Continue POC Therapy Discharge Recommendati: 24 Hour Supervision Barriers to Progress Pt. demonstrates poor participation. Treatment Plan/Plan of Care Treatment,Training & Education: Yes Patient would benefit from OT for education, treatment and training to promote independence in ADL's, mobility, safety and/or upper extremity function for ADL's. Plan of Care: ADL Retraining, Functional Mobility Treatment Duration: Oct 19, 2019 Frequency: 5 times per week Estimated Hrs Per Day: .25 hour per day Agreement: Yes Rehab Potential: Guarded Time/GCodes Start Time: 15:10 Stop Time: 15:20 Total Time Billed (hr/min): 10 Billed Treatment Time 1, AARON TORRES OT Oct 12, 2019 15:47
[2019-10-12 16:00] VITALS: BP 166/76
[2019-10-12] MEDS: inSUlin ASPART (NovoLOG) 1 UNIT/0.01 ML (CHARGE PER UNIT) SQ SCH (17:15)
[2019-10-12 17:24] LABS: BILIRUBIN,URINE NEGATIVE (NEGATIVE); CLARITY,URINE CLEAR; COLOR,URINE YELLOW; GLUCOSE, URINE (UA) NEGATIVE (NEGATIVE); KETONES,URINE NEGATIVE (NEGATIVE); LEUKOCYTE ESTERASE ,URINE 3+ (NEGATIVE); NITRITE,URINE POSITIVE (NEGATIVE); PROTEIN,URINE 1+ (NEGATIVE)
[2019-10-12 17:42] LABS: BACTERIA,URINE MODERATE /HPF
[2019-10-12 20:00] VITALS: BP 180/90
--- NOTE | 2019-10-12 20:55 | Discharge Inst-Simple/Standard ---
Discharge Inst-Standard Discharge Medications New, Converted or Re-Newed RX: Transmitted to Pharmacy Patient Instructions/Follow Up Plan of Care/Instructions/FU: Please continue to take your medications as written. Please follow up with Dr. Pelletier next week to follow up this hospital stay. Activity as Tolerated: Yes Discharge Diet: Low Sodium Diet, ADA Diet Return to The Hospital For: Chest pain, shortness of breath, swelling, >5lb weight gain in 24 hours, if you feel you are getting worse. Planned Outpatient Orders/Ref. Pneu Vac Indicated: Yes ANTONIO MICHAELS MD Oct 12, 2019 20:55
[2019-10-12] MEDS ORDERED: NON-FORMULARY MEDICATION 1 EA EA (Hydralazine HCl 100 MG) PO SCH (21:00)
[2019-10-12] MEDS ORDERED: TAMSULOSIN 0.4 MG (FLOMAX) CAP PO SCH (21:00)
[2019-10-12] MEDS ORDERED: AMITRIPTYLINE 25 MG (ELAVIL) TAB PO SCH (21:00)
[2019-10-12] MEDS ORDERED: cefTRIAXone FOR IV USE 1,000 MG in WATER (STERILE) FOR INJECTION 10 ML IV SCH (21:00)
[2019-10-12] MEDS ORDERED: FINASTERIDE (PROSCAR) 5 MG TAB PO SCH (21:00)
[2019-10-12] MEDS: ASCORBIC ACID (VIT C) 500 MG TABLET PO SCH (21:31)
[2019-10-13 00:23] VITALS: BP 162/72
[2019-10-13] MEDS: RT-ALBUTEROL/IPRATROPIUM 3 ML (DUONEB) VIAL INH SCH ×3 (01:46→11:53)
[2019-10-13 05:04] LABS: HEMOGLOBIN 10.3 G/DL (13.3-17.7); MEAN PLATELET VOLUME 10.5 FL (7.4-10.4); WHITE BLOOD COUNT 6.5 10^3/uL (4.3-11.0)
[2019-10-13 05:19] LABS: INR 2.8 (0.8-1.4); PROTHROMBIN TIME PATIENT 30.4 SEC (12.2-14.7)
[2019-10-13 05:29] LABS: CALCIUM 8.6 MG/DL (8.5-10.1); CREATININE SERUM 2.08 MG/DL (0.60-1.30)
[2019-10-13] MEDS: FUROSEMIDE 40 MG/4 ML INJ (LASIX) IVP SCH (06:13)
[2019-10-13] MEDS: inSUlin ASPART (NovoLOG) 1 UNIT/0.01 ML (CHARGE PER UNIT) SQ SCH ×2 (06:17→12:52)
[2019-10-13] MEDS: CATHETER FLUSH 10 ML SYR IV SCH (06:18)
[2019-10-13] MEDS: inSUlin ASPART (NovoLOG) 1 UNIT/0.01 ML (CHARGE PER UNIT) SC SCH ×2 (06:18→12:52)
[2019-10-13] MEDS ORDERED: VENlafaxine XR 75 MG (EFFEXOR XR) CAP PO SCH (07:00)
[2019-10-13] MEDS ORDERED: KCL 20 MEQ TAB (K-DUR) PO SCH (07:00)
--- NOTE | 2019-10-13 08:26 | NUR ---
blood sugar This AM 157. patient stated he only wants 30 of the scheduled Levmir
--- NOTE | 2019-10-13 08:32 | Physical Therapy Progress Note ---
Therapy Progress Note Patient refused PT treatment this morning, refused to transfer to recliner or perform exercises in bed. Will check back later today. BETTY STRONG PT Oct 13, 2019 08:32
[2019-10-13] MEDS: amLODIPine 10 MG (NORVASC) TAB PO SCH (08:34)
[2019-10-13] MEDS: hydrALAZINE (APRESOLINE) 25 MG TAB PO SCH ×2 (08:34→12:52)
[2019-10-13] MEDS: ASCORBIC ACID (VIT C) 500 MG TABLET PO SCH (08:34)
[2019-10-13] MEDS: GEMFIBROZIL 600 MG (LOPID) TAB PO SCH (08:34)
[2019-10-13] MEDS: CARVEDILOL 12.5 MG (COREG) TABLET PO SCH (08:34)
[2019-10-13] MEDS ORDERED: ASPIRIN E.C. 81 MG (ECOTRIN) TAB PO SCH (09:00)
[2019-10-13] MEDS ORDERED: ALLOPURINOL 100 MG (ZYLOPRIM) TAB PO SCH (09:00)
[2019-10-13] MEDS ORDERED: CEPH-507 PO (10:50)
--- NOTE | 2019-10-13 11:31 | Occ Therapy Progress Note ---
Therapy Progress Note Pt to discharge to home today. DC OT services. MARIA A KEENE Oct 13, 2019 11:31
--- NOTE | 2019-10-13 12:00 | Cardiology Progress Note ---
Subjective Date Seen by Provider: Oct 13, 2019 Time Seen by Provider: 11:58 Subjective/Events-last exam Patient is laying down in bed, on BiPAP, feeling better. No new complaint Review of Systems General: No Chills, No Night Sweats; Fatigue; No Malaise, No Appetite, No Other HEENT: No Head Aches, No Visual Changes, No Eye Pain, No Ear Pain, No Dysphasia, No Sinus Congestion, No Post Nasal Drip, No Sore Throat, No Other Pulmonary: Dyspnea; No Cough, No Pleuritic Chest Pain, No Other Cardiovascular: No: Chest Pain, Palpitations, Orthopnea, Paroxysmal Noc. Dyspnea, Edema, Lt Headedness, Other Focused Exam Lactate Level 10/11/19 14:32: Lactic Acid Level 1.00 Objective-Cardiology Exam Last Set of Vital Signs Vital Signs 10/11/19 10/13/19 10/13/19 19:32 00:23 08:00 Temp 36.4 Pulse 70 Resp 20 B/P (MAP) 162/72 (102) Pulse Ox 96 O2 Delivery Nasal Cannula O2 Flow Rate 3.00 FiO2 32 Capillary Refill : Less Than 3 SecondsLess Than 3 Seconds I&O Intake and Output 10/13/19 00:00 Intake Total 2180 ml Output Total 5250 ml Balance -3070 ml Intake Oral 2180 ml Output Urine Total 5250 ml # Bowel Movements 2 General: Alert, Oriented X3, Cooperative HEENT: Atraumatic, PERRLA Neck: Supple, No JVD Lungs: Clear to Auscultation, Normal Air Movement Heart: Regular Rate, Normal S1, Normal S2 Abdomen: Normal Bowel Sounds, Soft Extremities: No Clubbing, Other (Right BKA) Skin: No Rashes Neuro: Normal Speech, Strength at 5/5 X4 Ext Psych/Mental Status: Mental Status NL Results Lab Laboratory Tests 10/13/19 04:20 A/P-Cardiology Admission Diagnosis Shortness of breath Coronary artery disease Acute renal insufficiency Hypertension Assessment/Plan Shortness of breath, peripheral edema, echocardiogram showed normal LV size and function, normal PA pressure. Improved with diuretics. Okay for discharge from cardiology standpoint Acute on chronic renal insufficiency, continue to monitor renal function. No changes are recommended Coronary artery disease, history of multiple interventions, total of 8 stents, had bypass surgery using single vessel after failed multiple attempts for intervention done at [facility] in 2017. No recent cardiac workup, followed by Drs. Ponce Peripheral arterial disease, right BKA, had progressive wound that resulted in the amputation done in November 2018. Hypertension, okay for discharge, continue on same medications Hyperlipidemia, intolerant to multiple statin, continue to monitor lipids as an outpatient COPD, obstructive sleep apnea, maintained on C Pap, persistent dyspnea Pulmonary hypertension. Reevaluate 2-D echocardiogram Diabetes mellitus, followed and managed by primary care physician Obesity, educated on weight loss Carotid stenosis, totally occluded left ICA, less than 40 percent on the right side. Followed at primary care physician Vertigo, dizziness, chronic. Clinically patient is better, okay for discharge from cardiology standpoint and follow up as an outpatient with his primary first press operator Clinical Quality Measures DVT/VTE Risk/Contraindication: Risk Factor Score Per Nursin RFS Level Per Nursing on Admit: 4+=Very High Contraindications-Pharm: Other *list below* Other: PT/INR ELEVATED BARBIE ALFRED MD Oct 13, 2019 12:00
--- NOTE | 2019-10-13 12:20 | Discharge Summary ---
Diagnosis/Chief Complaint Date of Admission Oct 11, 2019 at 14:47 Date of Discharge Discharge Date: Oct 13, 2019 Admission Diagnosis CHF Exacerbation Primary Care Discharge Summary Discharge Physical Exam Allergies: Coded Allergies: niacin (Unverified Allergy, Unknown, 06/26/10) rosuvastatin (Verified Allergy, Unknown, 04/20/07) fenofibrate (Unverified Adverse Reaction, Unknown, LIVER PROBLEMS, 01/23/15) Vitals & I&Os Vital Signs Date Time Temp Pulse Resp B/P (MAP) Pulse Ox O2 Delivery O2 Flow Rate FiO2 10/13/19 08:00 96 Nasal Cannula 3.00 10/13/19 00:23 36.4 70 20 162/72 (102) 10/11/19 19:32 32 Hospital Course Labs (last 24 hrs) Laboratory Tests 10/12/19 16:08: Glucometer 344H 10/12/19 16:40: Urine Color YELLOW, Urine Clarity CLEAR, Urine pH 6.0, Urine Specific [place] 1.015L, Urine Protein 1+H, Urine Glucose (UA) NEGATIVE, Urine Ketones NEGATIVE, Urine Nitrite POSITIVEH, Urine Bilirubin NEGATIVE, Urine Urobilinogen 1.0, Urine Leukocyte Esterase 3+H, Urine RBC (Auto) 3+H, Urine RBC 10-25H, Urine WBC 10-25H , Urine Crystals NONE, Urine Bacteria MODERATEH, Urine Casts NONE, Urine Mucus NEGATIVE, Urine Culture Indicated YES 10/12/19 21:41: Glucometer 163H 10/13/19 04:20: White Blood Count 6.5, Red Blood Count 3.61L, Hemoglobin 10.3L, Hematocrit 31L, Mean Corpuscular Volume 86, Mean Corpuscular Hemoglobin 29, Mean Corpuscular Hemoglobin Concent 33, Red Cell Distribution Width 17.0H, Platelet Count 131, Mean Platelet Volume 10.5H, Prothrombin Time 30.4H, INR Comment 2.8H, Sodium Level 137, Potassium Level 4.0, Chloride Level 99, Carbon Dioxide Level 26, Anion Gap 12, Blood Urea Nitrogen 46H, Creatinine 2.08H, Estimat Glomerular Filtration Rate 32, BUN/Creatinine Ratio 22, Glucose Level 215H, Calcium Level 8.6 10/13/19 05:29: Glucometer 224H 10/13/19 08:23: Glucometer 157H 10/13/19 11:47: Glucometer 288H Microbiology 10/12/19 Urine Culture - Preliminary, Resulted Probable Klebsiella/Enterobact 10/11/19 Blood Culture - Preliminary, Resulted No growth 10/11/19 Influenza Types A,B Antigen ([place]) - Final, Complete Patient resulted labs reviewed. Pending Labs Laboratory Tests 10/13/19 05:29: Glucometer 224 10/13/19 08:23: Glucometer 157 10/13/19 11:47: Glucometer 288 Discharge Home Medications: Active Scripts Active Keflex (Cephalexin) 500 Mg Capsule 500 Mg PO BID Reported Warfarin Sodium 10 Mg Tablet 10 Mg PO DAILY Zofran (Ondansetron HCl) 8 Mg Tablet 8 Mg PO Q8H PRN Magnesium (Magnesium Oxide) 400 Mg Tablet 400 Mg PO DAILY Iprat-Albut 0.5-3(2.5) mg/3 ml (Ipratropium/Albuterol Sulfate) 3 Ml Ampul.neb 3 Ml IH Q6H PRN Folic Acid 1 Mg Tablet 1 Mg PO DAILY D3-2000 (Cholecalciferol (Vitamin D3)) 50 Mcg Capsule 50 Mcg PO BID Novolog (Insulin Aspart) 100 Unit/1 Ml Susp 35 Unit SQ TIDAC Hydralazine HCl 100 Mg Tablet 100 Mg PO TID Flomax (Tamsulosin HCl) 0.4 Mg Cap 0.4 Mg PO HS Ascorbic Acid 500 Mg Tablet 500 Mg PO BID Potassium Chloride 20 Meq Tablet.er 20 Meq PO DAILY Lasix (Furosemide) 40 Mg Tablet 40 Mg PO BID Ferrous Sulfate 325 Mg Tablet 325 Mg PO Q48H Meclizine HCl 25 Mg Tablet 25 Mg PO BID PRN Amitriptyline HCl 25 Mg Tablet 25 Mg PO HS Finasteride 5 Mg Tablet 5 Mg PO HS Calcium 600 + Vit D 400 Tablet (Calcium Carbonate/Vitamin D3) 1 Each Tablet 1 Tab PO DAILY Aspirin EC (Aspirin) 81 Mg Tablet.dr 81 Mg PO DAILY Fish Oil 1,000 mg Softgel ([place]-3/Dha/Epa/Fish Oil) 1 Each Capsule 1,000 Mg PO BID Levemir (Insulin Determir) 1,000 Units/10 Ml Soln 67 Units SC BID Venlafaxine HCl ER (Venlafaxine HCl) 150 Mg Cap.er.24h 150 Mg PO DAILY Carvedilol 25 Mg Tablet 25 Mg PO BID Amlodipine Besylate 10 Mg Tablet 10 Mg PO DAILY Allopurinol 100 Mg Tablet 100 Mg PO DAILY Gemfibrozil 600 Mg Tablet 600 Mg PO DAILY Vitamin E (Vitamin E Acetate) 400 Unit Capsule 400 Unit PO DAILY Instructions to patient/family Please see electronic discharge instructions given to patient. Clinical Quality Measures DVT/VTE Risk/Contraindication: Risk Factor Score Per Nursin RFS Level Per Nursing on Admit: 4+=Very High Contraindications-Pharm: Other *list below* Other: PT/INR ELEVATED ANTONIO MICHAELS MD Oct 13, 2019 12:20
[2019-10-13 14:20] VITALS: BP 162/72
== END 2019-10-13 14:22 | disposition home or self-care (01) ==
LOC: EDUNIT# 12:28 → ER 12:29 → 4TH 14:47
PROVIDERS: ADMIT Family Medicine; ATTEND Family Medicine
DX: I50.9 Heart failure, unspecified (principal); I25.10 Atherosclerotic heart disease of native coronary artery without angina pectoris; I25.2 Old myocardial infarction; I13.0 Hypertensive heart and chronic kidney disease with heart failure and stage 1 through stage 4 chronic kidney disease, or unspecified chronic kidney disease; J18.1 Lobar pneumonia, unspecified organism; I27.20 Pulmonary hypertension, unspecified; I65.23 Occlusion and stenosis of bilateral carotid arteries; G47.30 Sleep apnea, unspecified; J44.9 Chronic obstructive pulmonary disease, unspecified; G89.29 Other chronic pain; G62.9 Polyneuropathy, unspecified; M54.2 Cervicalgia; M19.90 Unspecified osteoarthritis, unspecified site; N18.9 Chronic kidney disease, unspecified; E78.5 Hyperlipidemia, unspecified; E11.22 Type 2 diabetes mellitus with diabetic chronic kidney disease; E78.00 Pure hypercholesterolemia, unspecified; E66.9 Obesity, unspecified; Z95.1 Presence of aortocoronary bypass graft; Z87.891 Personal history of nicotine dependence; Z88.8 Allergy status to other drugs, medicaments and biological substances; Z79.84 Long term (current) use of oral hypoglycemic drugs; Z79.82 Long term (current) use of aspirin; Z79.891 Long term (current) use of opiate analgesic; Z79.01 Long term (current) use of anticoagulants
CPT/HCPCS: 36415; 71045; 80048; 80053; 80061; 81000; 82962; 83605; 83880; 84145; 84439; 84443; 84484; 85025; 85027; 85610; 87040; 87088; 87186; 87804; 93005; 94640; 94760; G0378

== ENCOUNTER 2020-01-02 17:19 | Observation (INO) | payer MEDICARE ==
[~2020-01-02] VITALS: Ht 182.8 cm; Wt 108.7 kg
[~2020-01-02 17:19] MED LIST changes: +CEPH-507 PO; +CHOL200012 PO; +HYDR100T27 PO; +IPRA3AMP31 IH; +MAGN400T39 PO; +ONDA8TAB6 PO; +WARF10TA44 PO
[2020-01-02] MEDS ORDERED: NS IV 1000 ML 1,000 ML IV STA (17:37)
[2020-01-02 17:45] LABS: BASOPHILS % (AUTO) 0 % (0-10); EOSINOPHILS # (AUTO) 0.1 10^3/uL (0.0-0.3); EOSINOPHILS % (AUTO) 1 % (0-10); HEMATOCRIT 32 % (40-54); LYMPHOCYTES # (AUTO) 0.9 X 10^3 (1.0-4.0); LYMPHOCYTES % (AUTO) 14 % (12-44); MEAN CORPUSCULAR HEMOGLOBIN 29 PG (25-34); MEAN CORPUSCULAR HGB CONC 35 G/DL (32-36); MEAN CORPUSCULAR VOLUME 83 FL (80-99); MEAN PLATELET VOLUME 10.6 FL (7.4-10.4); MONOCYTES # (AUTO) 0.6 X 10^3 (0.0-1.0); MONOCYTES % (AUTO) 10 % (0-12); NEUTROPHILS % (AUTO) 75 % (42-75); PLATELET COUNT 112 10^3/uL (130-400); RED CELL DISTRIBUTION WIDTH 14.9 % (10.0-14.5); WHITE BLOOD COUNT 6.7 10^3/uL (4.3-11.0)
--- NOTE | 2020-01-02 17:51 | ED General ---
General Chief Complaint: Trauma-Non Activation Stated Complaint: FALL Nursing Triage Note: fall Nursing Sepsis Screen: No Definite Risk Source of Information: Patient Exam Limitations: No Limitations History of Present Illness Date Seen by Provider: Jan 02, 2020 Time Seen by Provider: 17:27 Initial Comments Here by EMS with report of weakness. Apparently he slid out of his chair to the floor last night trying to get in bed. Ultimately they were able to help him back into bed. They tried to get him to calm at that time but he did not want to. Admits to weakness and uncontrolled blood sugars. Does have history of CHF and diabetes. States that he feels more dry than volume overloaded. Denies nausea, vomiting, chest pain or breathing problems. Denies fever or chills. Has had difficulty with urination. Blood sugar greater than 500 per EMS. Does have various sores on the legs but states those are stable. 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 Timing/Duration: 1 Week, Getting Worse Severity: Moderate Associated Systoms: No Chest Pain, No Cough, No Fever/Chills; Malaise; No Nausea/Vomiting, No Shortness of Air; Weakness Allergies and Home Medications Allergies Coded Allergies: niacin (Unverified Allergy, Unknown, 06/26/10) rosuvastatin (Verified Allergy, Unknown, 04/20/07) fenofibrate (Unverified Adverse Reaction, Unknown, LIVER PROBLEMS, 01/23/15) Home Medications Allopurinol 100 Mg Tablet, 100 MG PO DAILY, (Reported) Amitriptyline HCl 25 Mg Tablet, 25 MG PO HS, (Reported) Amlodipine Besylate 10 Mg Tablet, 10 MG PO DAILY, (Reported) Ascorbic Acid 500 Mg Tablet, 500 MG PO BID, (Reported) Aspirin 81 Mg Tablet.dr, 81 MG PO DAILY, (Reported) Calcium Carbonate/Vitamin D3 1 Each Tablet, 1 TAB PO DAILY, (Reported) Carvedilol 25 Mg Tablet, 25 MG PO BID, (Reported) Cephalexin 500 Mg Capsule, 500 MG PO BID Prescribed by: ANTONIO MICHAELS on 10/13/19 1050 Cholecalciferol (Vitamin D3) 50 Mcg Capsule, 50 MCG PO BID, (Reported) Ferrous Sulfate 325 Mg Tablet, 325 MG PO Q48H, (Reported) Finasteride 5 Mg Tablet, 5 MG PO HS, (Reported) Folic Acid 1 Mg Tablet, 1 MG PO DAILY, (Reported) Furosemide 40 Mg Tablet, 40 MG PO BID, (Reported) Gemfibrozil 600 Mg Tablet, 600 MG PO DAILY, (Reported) Hydralazine HCl 100 Mg Tablet, 100 MG PO TID, (Reported) Insulin Aspart 100 Unit/1 Ml Susp, 35 UNIT SQ TIDAC, (Reported) Insulin Determir 1,000 Units/10 Ml Soln, 67 UNITS SC BID, (Reported) Ipratropium/Albuterol Sulfate 3 Ml Ampul.neb, 3 ML IH Q6H PRN for SHORTNESS OF BREATH, (Reported) Magnesium Oxide 400 Mg Tablet, 400 MG PO DAILY, (Reported) Meclizine HCl 25 Mg Tablet, 25 MG PO BID PRN for NAUSEA/VOMITING, (Reported) [place]-3/Dha/Epa/Fish Oil 1 Each Capsule, 1,000 MG PO BID, (Reported) Ondansetron HCl 8 Mg Tablet, 8 MG PO Q8H PRN for NAUSEA/VOMITING-1ST LINE, (Reported) Potassium Chloride 20 Meq Tablet.er, 20 MEQ PO DAILY, (Reported) Tamsulosin HCl 0.4 Mg Cap, 0.4 MG PO HS, (Reported) Venlafaxine HCl 150 Mg Cap.er.24h, 150 MG PO DAILY, (Reported) Vitamin E Acetate 400 Unit Capsule, 400 UNIT PO DAILY, (Reported) Warfarin Sodium 10 Mg Tablet, 10 MG PO DAILY, (Reported) Patient Home Medication List Home Medication List Reviewed: Yes Review of Systems Review of Systems Constitutional: see HPI; No chills, No fever EENTM: no symptoms reported Respiratory: No cough, No short of breath Cardiovascular: see HPI; No chest pain; edema Gastrointestinal: No abdominal pain, No nausea, No vomiting Genitourinary: decreased output; No dysuria, No pain Musculoskeletal: No back pain; muscle weakness; No neck pain Skin: change in color, lesions Psychiatric/Neurological: See HPI; Denies Headache; Weakness All Other Systems Reviewed Negative Unless Noted: Yes Past Qjpfhum-Bpcxbx-Tjiwfc Hx Past Med/Social Hx: Reviewed Nursing Past Med/Soc Hx Patient Social History Alcohol Use: Denies Use Recreational Drug Use: Yes Drug of Choice: past hx drug use. Smoking Status: Former Smoker Former Smoker, Quit: Jul 07, 2006 2nd Hand Smoke Exposure: No Recent Foreign Travel: No Contact w/Someone Who Travel: No Recent Infectious Disease Expo: No Recent Hopitalizations: Yes Immunizations Up To Date Tetanus Booster (TDap): Unknown PED Vaccines UTD: No Seasonal Allergies Seasonal Allergies: No Past Medical History Surgeries: Yes (4 VESSEL CABG 2005; CARDIAC STENTS X 8; LEFT KNEE SCOPE) Cardiac, CABG, Coronary Stent, Orthopedic Respiratory: Yes (CPAP) Sleep Apnea, COPD Currently Using CPAP: Yes Currently Using BIPAP: No Cardiac: Yes Chronic Edema/Swelling, Coronary Artery Disease, Heart Attack, High Cholesterol, Hypertension, Syncope Neurological: Yes (3 PINCHED NERVES ON NECK ON LEFT SIDE; PERIPHERAL NEUROPATHY) Neuropathy, Vertigo Reproductive Disorders: No Genitourinary: No Gastrointestinal: Yes Gall Bladder Disease Musculoskeletal: Yes (CHRONIC NECK PAIN ; LEFT KNEE SCOPE) Degenerate Disk Disease, Arthritis, Chronic Back Pain Endocrine: Yes (INSULIN + PILLS; MORBID OBESITY) Diabetes, Insulin dep HEENT: No Loss of Vision: Bilateral Cancer: No Psychosocial: No Integumentary: Yes (CHRONIC DIABETIC FOOT ULCER RIGHT GREAT TOE) Recent Skin Changes Blood Disorders: No Family Medical History Reviewed Nursing Family Hx Cardiovascular disease 19 FATHER, Onset:Unknown FH: breast cancer G8 SISTER, Onset:50's - 60 FH: ovarian cancer 19 MOTHER, Onset:40's - 50 Heart Disease, Cancer Physical Exam Vital Signs Vital Signs - First Documented 01/02/20 17:22 Temp 36.7 Pulse 70 Resp 20 B/P (MAP) 166/87 (113) Pulse Ox 99 O2 Delivery Room Air Capillary Refill : Less Than 3 Seconds Height, Weight, BMI Height: 6'0.00" Weight: 322lbs. 1.0oz. 146.929340sq; 49.00 BMI Method:Stated General Appearance: No Apparent Distress, Chronically ill, Obese HEENT: PERRL/EOMI, Pharynx Normal, Other (dry mucous membranes) Neck: Non Tender, Supple Respiratory: Lungs Clear, Normal Breath Sounds Cardiovascular: Regular Rate, Rhythm, No Murmur Gastrointestinal: Non Tender, Soft, Other (obese) Back: Normal Inspection, No CVA Tenderness, No Vertebral Tenderness Extremity: Pedal Edema (left leg from knee down with some venous stasis blisters and weeping.), Other (right BKA) Neurologic/Psychiatric: Alert, Oriented x3 Skin: Warm/Dry, Other (scattered blisters or wounds to the left lower extremity and to the stump on the right lower extremity.) Focused Exam Lactate Level 01/02/20 17:35: Lactic Acid Level 0.85 Lactic Acid Level Laboratory Tests Test 01/02/20 17:35 Lactic Acid Level 0.85 MMOL/L (0.50-2.00) Progress/Results/Core Measures Suspected Sepsis Recent Fever Within 48 Hours: No Infection Criteria Present: None New/Unexplained Altered Menta: No Sepsis Screen: No Definite Risk SIRS Temperature: Pulse: 70 Respiratory Rate: 20 Laboratory Tests 01/02/20 17:35: White Blood Count 6.7 Blood Pressure 166 /87 Mean: 113 01/02/20 17:35: Lactic Acid Level 0.85 Laboratory Tests 01/02/20 17:35: Creatinine 2.00H, INR Comment 1.2, Platelet Count 112L, Total Bilirubin 0.6 Results/Orders Lab Results Laboratory Tests Test 01/02/20 17:27 01/02/20 17:35 01/02/20 17:47 Range/Units Glucometer 543 *H 70-110 MG/DL White Blood Count 6.7 4.3-11.0 10^3/uL Red Blood Count 3.83 L 4.35-5.85 10^6/uL Hemoglobin 11.0 L 13.3-17.7 G/DL Hematocrit 32 L 40-54 % Mean Corpuscular Volume 83 80-99 FL Mean Corpuscular Hemoglobin 29 25-34 PG Mean Corpuscular Hemoglobin Concent 35 32-36 G/DL Red Cell Distribution Width 14.9 H 10.0-14.5 % Platelet Count 112 L 130-400 10^3/uL Mean Platelet Volume 10.6 H 7.4-10.4 FL Neutrophils (%) (Auto) 75 42-75 % Lymphocytes (%) (Auto) 14 12-44 % Monocytes (%) (Auto) 10 0-12 % Eosinophils (%) (Auto) 1 0-10 % Basophils (%) (Auto) 0 0-10 % Neutrophils # (Auto) 5.0 1.8-7.8 X 10^3 Lymphocytes # (Auto) 0.9 L 1.0-4.0 X 10^3 Monocytes # (Auto) 0.6 0.0-1.0 X 10^3 Eosinophils # (Auto) 0.1 0.0-0.3 10^3/uL Basophils # (Auto) 0.0 0.0-0.1 10^3/uL Prothrombin Time 15.4 H 12.2-14.7 SEC INR Comment 1.2 0.8-1.4 Activated Partial Thromboplast Time 34 24-35 SEC Sodium Level 127 L 135-145 MMOL/L Potassium Level 4.5 3.6-5.0 MMOL/L Chloride Level 95 L 98-107 MMOL/L Carbon Dioxide Level 22 21-32 MMOL/L Anion Gap 10 5-14 MMOL/L Blood Urea Nitrogen 33 H 7-18 MG/DL Creatinine 2.00 H 0.60-1.30 MG/DL Estimat Glomerular Filtration Rate 33 BUN/Creatinine Ratio 17 Glucose Level 608 *H 70-105 MG/DL Lactic Acid Level 0.85 0.50-2.00 MMOL/L Calcium Level 8.7 8.5-10.1 MG/DL Corrected Calcium 9.1 8.5-10.1 MG/DL Total Bilirubin 0.6 0.1-1.0 MG/DL Aspartate Amino Transf (AST/SGOT) 13 5-34 U/L Alanine Aminotransferase (ALT/SGPT) 21 0-55 U/L Alkaline Phosphatase 91 40-136 U/L C-Reactive Protein High Sensitivity 6.91 H 0.00-0.50 MG/DL B-Type Natriuretic Peptide 228.9 H <100.0 PG/ML Total Protein 6.6 6.4-8.2 GM/DL Albumin 3.5 3.2-4.5 GM/DL Urine Color YELLOW Urine Clarity CLEAR Urine pH 5.5 5-9 Urine Specific [place] <=1.005 1.016-1.022 Urine Protein 1+ H NEGATIVE Urine Glucose (UA) 3+ H NEGATIVE Urine Ketones NEGATIVE NEGATIVE Urine Nitrite NEGATIVE NEGATIVE Urine Bilirubin NEGATIVE NEGATIVE Urine Urobilinogen 0.2 < = 1.0 MG/DL Urine Leukocyte Esterase NEGATIVE NEGATIVE Urine RBC (Auto) NEGATIVE NEGATIVE Urine RBC RARE /HPF Urine WBC RARE /HPF Urine Crystals PRESENT H /LPF Urine Amorphous Sediment MOD FRANCIS URATES H /LPF Urine Bacteria NEGATIVE /HPF Urine Casts NONE /LPF Urine Mucus NEGATIVE /LPF Urine Culture Indicated CULTURE PENDING My Orders Orders - RIOS MENDEZ MD Cbc With Automated Diff (01/02/20 17:37) Comprehensive Metabolic Panel (01/02/20 17:37) Blood Culture (01/02/20 17:37) Sputum Culture (01/02/20 17:37) Urinalysis (01/02/20 17:37) Urine Culture (01/02/20 17:37) Protime With Inr (01/02/20 17:37) Partial Thromboplastin Time (01/02/20 17:37) Chest 1 View, Ap/Pa Only (01/02/20 17:37) Ed Iv/Invasive Line Start (01/02/20 17:37) Ed Iv/Invasive Line Start (01/02/20 17:37) Vital Signs Adult Sepsis Patie Q15M (01/02/20 17:37) O2 (01/02/20 17:37) Remove Rings In Anticipation O (01/02/20 17:37) Lactic Acid Analyzer (01/02/20 17:37) Ns Iv 1000 Ml (Sodium Chloride 0.9%) (01/02/20 17:37) BNP (01/02/20 17:37) Hs C Reactive Protein (01/02/20 17:37) Catheter(Urinary) Insert & Ass 03,15 (01/02/20 17:51) Insulin (Regular) Human (Humulin R (Per (01/02/20 18:56) Enoxaparin Injection (Lovenox Injection) (01/02/20 19:30) Vital Signs/I&O 01/02/20 17:22 Temp 36.7 Pulse 70 Resp 20 B/P (MAP) 166/87 (113) Pulse Ox 99 O2 Delivery Room Air Capillary Refill : Less Than 3 Seconds Blood Pressure Mean: 113 Progress Note : Progress Note Seen and evaluated. IV, labs, UA, chest x-ray, blood cultures and lactic acid. [place] catheter ordered due to weakness and the need for hemodynamic monitoring. No saline 1 L bolus ordered. Monitor patient. 1904: I discussed the case with Dr. Horton and she accepts patient for admission, observation status for uncontrolled hyperglycemia. Patient is concerned about dependent edema. His INR is subtherapeutic. We will check ultrasound in the morning for that. Lovenox 160 mg subcutaneous ordered. Patient did receive 15 units of insulin IV. Patient agrees and requested admission. Diagnostic Imaging Diagonstic Imaging: Xray Plain Films/CT/US/NM/MRI: chest Comments [facility] [place], [place] NAME: ELMO GARCIA [facility] REC#: [id number] PT STATUS: REG ER : 1950 PHYSICIAN: RIOS MENDEZ MD ADMIT DATE: 01/02/20/ER Draft Date of Exam:01/02/20 CHEST 1 VIEW, AP/PA ONLY INDICATION: Fall. COMPARISON: Exam compared to 10/11/2019. FINDINGS: Enlargement of the cardiac silhouette is stable. No focal consolidation. No displaced chest wall fracture deformity. No effusion or pneumothorax. IMPRESSION: Stable chest. Dictated on workstation # [id number] Dict: 01/02/20 1758 Trans: 01/02/20 1805 [id number] [id number] Interpreted by: STELLA HENDERSON Electronically signed by: Departure Communication (Admissions) Time/Spoke to Admitting Phy: 19:05 Impression Primary Impression: Diabetes mellitus, insulin dependent (IDDM), uncontrolled Additional Impressions: Dependent edema Subtherapeutic international normalized ratio (INR) Disposition: ADMITTED INPATIENT Condition: Stable Admissions Decision to Admit Reason: Admit from ER (General) Decision to Admit/Date: Jan 02, 2020 Time/Decision to Admit Time: 19:05 RIOS MENDEZ MD Jan 02, 2020 17:51
[2020-01-02 17:56] LABS: BILIRUBIN,URINE NEGATIVE (NEGATIVE); CLARITY,URINE CLEAR; COLOR,URINE YELLOW; GLUCOSE, URINE (UA) 3+ (NEGATIVE); KETONES,URINE NEGATIVE (NEGATIVE); LEUKOCYTE ESTERASE ,URINE NEGATIVE (NEGATIVE); NITRITE,URINE NEGATIVE (NEGATIVE); PH,URINE 5.5 (5-9); PROTEIN,URINE 1+ (NEGATIVE)
[2020-01-02 17:57] LABS: ALBUMIN 3.5 GM/DL (3.2-4.5); POTASSIUM 4.5 MMOL/L (3.6-5.0)
[2020-01-02 17:58] LABS: CALCIUM 8.7 MG/DL (8.5-10.1)
[2020-01-02 17:59] LABS: INR 1.2 (0.8-1.4); PROTHROMBIN TIME PATIENT 15.4 SEC (12.2-14.7); TOTAL PROTEIN 6.6 GM/DL (6.4-8.2)
[2020-01-02 18:01] LABS: BILIRUBIN,TOTAL 0.6 MG/DL (0.1-1.0)
--- NOTE | 2020-01-02 18:05 | Diagnostic Imaging Report ---
INDICATION: Fall. COMPARISON: Exam compared to 10/11/2019. FINDINGS: Enlargement of the cardiac silhouette is stable. No focal consolidation. No displaced chest wall fracture deformity. No effusion or pneumothorax. IMPRESSION: Stable chest. Dictated by: Dictated on workstation # [id number]
[2020-01-02 18:20] LABS: AMORPHOUS SEDIMENT,UR MOD AMOR URATES /LPF; BACTERIA,URINE NEGATIVE /HPF; RBC,URINE RARE /HPF; WBC,URINE RARE /HPF
[2020-01-02] MEDS ORDERED: inSUlin (REGULAR) HUMAN 1 UNIT/0.01 ML (CHARGE PER UNIT) IV STA (18:56)
[2020-01-02] MEDS ORDERED: ENOXAPARIN 80 MG/0.8 ML (LOVENOX) SYR SC ONE (19:30)
--- OUTSIDE RECORDS SUMMARY | 2020-01-02 20:18 | XMS REPORT | Clinical Summary ---
Author Author [facility] Organization [facility] Address Unknown Phone Unavailable Care Team Providers Care Human Service Worker Name Role Phone Kiel Mayer MD Unavailable Unavailable Chayo Strong APRN Unavailable Unavailable John Dumont MD Unavailable Valerie Cole PA-C Unavailable Irene Fontenot Unavailable Unavailable Carol Alford Unavailable Tyler Bello MD PCP Source Comments Some departments are not documenting in the electronic medical record. If you d o not see the information that you expected, contact Release of Information in [facility] Health Information Management department at [phone] for further assistan ce in locating additional records.[facility] Allergies Comments Active Allergy Reactions Severity Noted [...] Take 1 Tab by 90 Tab 3 0 100 mg tablet mouth daily. 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 Morbidly obese 07/15/2011 CAD (coronary artery disease) 07/15/2011 Overview: Multiple stent placements, with the las t ones being done 2010. Dyslipidemia 07/15/2011 HTN [...] Cigarettes 36 Smokeless Tobacco: Former Chew Quit: 2002 User Tobacco Cessation: Counseling Given: No Comments: used 'chew' for 25 years Drinks/Week oz/Week Comments Alcohol Use no longer drinks No Sex Assigned at Date Recorded Not on file Industry Job Start Date Occupation Not on file Not on file Not on file Travel End Travel History Travel Start No recent travel history available. Last Filed Vital Signs Reading Time Taken Comments Vital Sign 133/79 12/27/2012 2:35 PM CDT Blood Pressure 71 12/27/2012 2:35 PM CDT Pulse - - Temperature 19 05/13/2011 10:29 AM CDT Respiratory Rate - - Oxygen Saturation - - Inhaled Oxygen Concentration 160 kg (352 lb 12.8 oz) 12/27/2012 2:35 PM CDT Weight 182.9 cm (6') 12/27/2012 2:35 PM CDT Height 47.85 12/27/2012 2:35 PM CDT Body Mass Index Plan of Treatment Health Maintenance Due Date Last Done Comments DILATED EYE EXAM 1970 DTAP/TDAP VACCINES (1 - 1970 Tdap) FOOT EXAM 1970 HEPATITIS C SCREENING 1970 MICROALBUMIN 1970 PHYSICAL (COMPREHENSIVE) 1970 EXAM COLORECTAL CANCER 2002 SCREENING SHINGLES RECOMBINANT 2002 VACCINE (1 of 2) HBA1C 04/12/2013 10/10/2012, 09/15/2011, 07/15/2011, Additional history exists ABDOMINAL AORTIC ANEURYSM 2017 SCREENING PNEUMONIA (PPSV23) 2017 VACCINE (1 of 1 - PPSV23) INFLUENZA VACCINE 05/02/2020 05/13/2011 (Declined) Results Not on filefrom Last 3 Months
--- OUTSIDE RECORDS SUMMARY | 2020-01-02 20:18 | XMS REPORT ---
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 sodium measurement (moles/volume) on 2018-02-09 Sodium 137 mmol/L (no code) 135 - 147 mmol/L Via [facility] ([id number]) serum or plasma protein measurement (mass/volume) on 2018-02-09 Protein 7.4 g/dL (no code) 6.4 - 8.3 g/dL Via [facility] ([id number]) serum or plasma potassium measurement (moles/volume) on 2018-02-09 Potassium 4.1 mmol/L (no code) 3.5 - 5.1 mmol/L Via [facility] ([id number]) serum or plasma glucose measurement (mass/volume) on 2018-02-09 Glucose 251 mg/dL (H) 60 - 125 mg/dL Via [facility] ([id number]) serum or plasma creatinine measurement with calculation of estimated glomerular filtration rate on 2018-02-09 eGFR (non-black) 54 (no code) 90 - [id number] Via [facility] isti mL/min/{1.73_m2} mL/min/{1.73_m2} [facility] ([id number]) serum or plasma creatinine measurement (mass/volume) on 2018-02-09 Creatinine 1.32 mg/dL (H) Via [facility] ([id number]) serum or plasma chloride measurement (moles/volume) on 2018-02-09 Chloride 103 mmol/L (no code) 95 - 106 mmol/L Via [facility] ([id number]) serum or plasma calcium measurement (mass/volume) on 2018-02-09 Calcium 9.9 mg/dL (no code) 9 - 11 mg/dL Via [facility] ([id number]) serum or plasma aspartate aminotransferase measurement (enzymatic activity/volume) on 2018-02-09 Aspartate 28 U/L (no code) 10 - 34 U/L Via [facility] ([facility]) [place] ([id number]) serum or plasma anion gap determination (moles/volume) on 2018-02-09 Anion gap 14 mmol/L (no code) 3 - 11 mmol/L Via [facility] ([id number]) serum or plasma amylase measurement (enzymatic activity/volume) on 2018-02-09 Amylase 24 U/L (L) 23 - 85 U/L Via [facility] ([id number]) serum or plasma alkaline phosphatase measurement (enzymatic activity/volume) on 2018-02-09 Alkaline 77 U/L (no code) 44 - 147 U/L [facility] phosphatase [facility] (ALP) [place] ([id number]) serum or plasma albumin measurement (mass/volume) on 2018-02-09 Albumin 4.3 g/dL (no code) 3.5 - 5.5 g/dL Via [facility] ([id number]) serum or plasma alanine aminotransferase measurement (enzymatic activity/volume) on 2018-02-09 Alanine 39 U/L (no code) 10 - 40 U/L [facility] aminotransferase [facility] (ALT) [place] ([id number]) serum or plasma acetaminophen measurement (mass/volume) on 2018-02-09 Serum or plasma no information (L) [facility] acetaminophen [facility] measurement [place] (mass/volume) ([id number]) prothrombin time (pt) in platelet poor plasma by coagulation assay on 2018-02-09 Coagulation 13.4 s (no code) Via [facility] tissue factor [facility] induced in [place] platelet poor ([id number]) plasma myoglobin, serum on 2018-02-09 Myoglobin 82.7 ng/mL (no code) Via [facility] ([id number]) mucus detection in urine sediment by light microscopy on 2018-02-09 Urine, mucus Negative (no code) Via [facility] in [facility] ([id number]) magnesium on 2018-02-09 Magnesium 2.3 mg/dL (no code) 1.8 - 3.6 mg/dL Via [facility] ([id number]) lipase on 2018-02-09 Lipase 30 U/L (no code) 23 - 300 U/L Via [facility] ([id number]) leukocyte esterase on 2018-02-09 Urine, leukocyte 1+ (*) [facility] esterase [facility] (49904) inr in platelet poor plasma or blood by coagulation assay on 2018-02-09 INR in blood by 1.0 {INR} (no code) 0.9 - 1.1 {INR} Via [facility] coagulation [facility] ([id number]) erythrocytes detection in urine sediment by light microscopy on 2018-02-09 Urine, Negative (no code) [facility] erythrocytes [facility] ([id number]) crystals detection in urine sediment by light microscopy on 2018-02-09 Urine, crystals NONE (no code) [facility] ([id number]) complete urinalysis with reflex to culture on 2018-02-09 Complete NO (no code) [facility] urinalysis with Hospital reflex to [place] culture ([id number]) casts detection in urine sediment by light microscopy on 2018-02-09 Urine, casts in NONE (no code) Via [facility] ([id number]) carbon dioxide on 2018-02-09 CO2 20 mmol/L (L) 23 - 29 mmol/L Via [facility] ([id number]) blood neutrophils automated count (number/volume) on 2018-02-09 Neutrophils 5.4 10*3/uL (no code) 1.5 - 7.8 Via [facility] 10*3/uL [facility] ([id number]) blood monocytes/100 leukocytes on 2018-02-09 Monocytes/100 9 % (no code) 2 - 8 % [facility] leukocytes [facility] ([id number]) blood monocytes automated count (number/volume) on 2018-02-09 Monocytes 0.7 10*3/uL (no code) 0.2 - 1.1 Via [facility] 10*3/uL [facility] ([id number]) blood lymphocytes automated count (number/volume) on 2018-02-09 Lymphocytes 1.8 10*3/uL (no code) 0.85 - 4.1 Via [facility] 10*3/uL [facility] ([id number]) blood leukocytes automated count (number/volume) on 2018-02-09 WBC (Leukocytes) 8.1 10*3/uL (no code) 3.8 - 10.8 Via [facility] 10*3/uL [facility] ([id number]) blood hematocrit (volume fraction) on 2018-02-09 Hematocrit (HCT) 43 % (no code) 39 - 51 % Via [facility] ([id number]) blood erythrocytes automated count (number/volume) on 2018-02-09 Erythrocytes 4.93 10*6/uL (no code) 4.2 - 6.1 Via [facility] (RBC) 10*6/uL [facility] (13056) bacteria detection in urine sediment by light microscopy on 2018-02-09 Urine, bacteria FEW (*) Via [facility] in sediment [facility] ([id number]) automated urine sediment leukocyte count by microscopy (number/high power field) on 2018-02-09 Urine, RARE (no code) [facility] leukocytes in [facility] ([id number]) automated urine sediment erythrocyte count by microscopy (number/high power field) on 2018-02-09 Urine, NONE (no code) [facility] erythrocytes in [facility] sediment [facility] ([id number]) automated erythrocyte mean corpuscular volume on 2018-02-09 MCV 87 fL (no code) 80 - 100 fL Via [facility] ([id number]) automated erythrocyte mean corpuscular hemoglobin concentration measurement (mass/volume) on 2018-02-09 MCHC 36 g/dL (no code) 32 - 36 g/dL Via [facility] ([id number]) automated erythrocyte mean corpuscular hemoglobin (mass per erythrocyte) on 2018-02-09 MCH 31 pg (no code) 27 - 31 pg Via [facility] ([id number]) automated erythrocyte distribution width ratio on 2018-02-09 RDW-CA 15.3 % (H) 11 - 15 % Via [facility] ([id number]) automated eosinophil count on 2018-02-09 Eosinophils 0.1 10*3/uL (no code) 0.05 - 1.5 Via [facility] 10*3/uL [facility] ([id number]) automated blood platelet mean volume measurement on 2018-02-09 Platelet mean 10.5 fL (H) 7.2 - 11.7 fL Via [facility] volume (PMV) [facility] ([id number]) automated blood platelet count (count/volume) on 2018-02-09 Platelets 157 10*3/uL (no code) 150 - 400 Via [facility] 10*3/uL [facility] ([id number]) automated blood neutrophils/100 leukocytes on 2018-02-09 Neutrophils/100 67 % (no code) 40 - 60 % Via [facility] leukocytes [facility] ([id number]) automated blood lymphocytes/100 leukocytes on 2018-02-09 Lymphocytes/100 22 % (no code) 20 - 40 % Via [facility] (96604) automated blood eosinophils/100 leukocytes on 2018-02-09 Eosinophils/100 1 % (no code) 1 - 4 % Via [facility] ([id number]) automated blood basophils/100 leukocytes on 2018-02-09 Basophils/100 0 % (no code) 0.5 - 1 % Via [facility] ([id number]) automated blood basophil count (count/volume) on 2018-02-09 Basophils 0.0 10*3/uL (no code) 0 - 0.2 10*3/uL Via [facility] ([id number]) activated partial thromboplastin time (aptt) in platelet poor plasma bycoagulation assay on 2018-02-09 aPTT 28 s (no code) 25 - 35 s Via [facility] ([id number]) Vital Signs The data below is from unstructured sources Vital Response Date/Time Temperature (Fahrenheit) 97.0 degree s F (97.6 - 99.5) 11/13/2016 10:30am Temperature (Calculated Celsius) 36. 11651 degrees C (36.4 - 37.5) 11/13/2016 8:16am Temperature Source Tympanic 11/13/2016 10:30am Pulse Rate (adult) 67 bpm (60 - 90) 11/13/2016 10:30am Respiratory Rate 19 bpm (12 - 24) 11/13/2016 10:30am O2 Sat by Pulse Oximetry 98 % (88 - 100) 11/13/2016 10:30am Blood Pressure 131/72 mm Hg 11/13/2016 10:30am Blood Pressure Mean 91 mm Hg 11/13/2016 8:16am Pain Numeric Pain Scale 0-No Pain 11/13/2016 10:30am Height (Feet) 5 feet 06/2017 2:00pm Height (Inches) 11.00 inches 11/10/2016 2:00pm Height (Calculated Centimeters) 180. 146066 cm 11/10/2016 2:00pm Weight (Pounds) 350 pounds 11/10/2016 2:00pm Weight (Ounces) 0.0 oz 0 11/10/2016 2:00pm Weight (Calculated Grams) 879863.33 gm 11/10/2016 2:00pm Weight (Calculated Kilograms) 158.75 7331 kilograms 11/10/2016 2:00pm Calculated BMI 48.8 10/31 2:00pm Capillary Refill Capillary Refill Less Than 3 Seconds 11/10/2016 9:44am Vital Response Date/Time Temperature (Fahrenheit) 97.9 degree s F (97.6 - 99.5) 11/18/2016 12:36pm Temperature (Calculated Celsius) 36. 21523 degrees C (36.4 - 37.5) 11/18/2016 5:09am Temperature Source Tympanic 11/18/2016 12:36pm Pulse Rate (adult) 77 bpm (60 - 90) 11/18/2016 12:36pm Respiratory Rate 18 bpm (12 - 24) 11/18/2016 12:36pm O2 Sat by Pulse Oximetry 98 % (88 - 100) 11/18/2016 12:36pm Blood Pressure 127/69 mm Hg 11/18/2016 12:36pm Blood Pressure Mean 90 mm Hg 11/18/2016 8:40am Pain Numeric Pain Scale 0-No Pain 11/18/2016 12:36pm Height (Feet) 5 feet 10:32pm Height (Inches) 11.00 inches 11/13/2016 10:32pm Height (Calculated Centimeters) 180. 663481 cm 11/13/2016 10:32pm Weight (Pounds) 350 pounds 11/18/2016 5:13am Weight (Ounces) 0.0 oz 0 11/13/2016 10:32pm Weight (Calculated Grams) 673120.331 gm 11/18/2016 5:13am Weight (Calculated Kilograms) 158.75 7331 kilograms 11/18/2016 5:13am Calculated BMI 48.8 10/31 10:32pm Capillary Refill Capillary Refill Less Than 3 Seconds 11/10/2016 9:44am Vital Response Date/Time Temperature (Fahrenheit) 97.8 degree s F (97.6 - 99.5) 08/07/2015 1:55pm Temperature (Calculated Celsius) 36. 70809 degrees C (36.4 - 37.5) 08/07/2015 1:55pm Temperature Source Temporal 08/07/2015 1:55pm Pulse Rate (adult) 95 bpm (60 - 90) 08/07/2015 1:55pm Respiratory Rate 20 bpm (12 - 24) 08/07/2015 1:55pm O2 Sat by Pulse Oximetry 94 % (88 - 100) 08/07/2015 1:55pm Blood Pressure 148/91 mm Hg 08/07/2015 1:55pm Blood Pressure Mean 110 mm Hg 08/07/2015 1:55pm Pain Pain Intensity 0 2015 1:55pm Height (Feet) 6 feet 01/2016 7:23am Height (Inches) 0.00 inches 08/07/2015 7:23am Height (Calculated Centimeters) 182. 831523 cm 08/07/2015 7:23am Weight (Pounds) 345 pounds 08/07/2015 7:23am Weight (Calculated Grams) 963687.369 gm 08/07/2015 7:23am Weight (Calculated Kilograms) 156.48 9369 kilograms 08/07/2015 7:23am Calculated BMI 46.78 01/2016 7:23am Vital Response Date/Time Temperature (Fahrenheit) 97.8 degree s F (97.6 - 99.5) Temperature (Calculated Celsius) 36. 05606 degrees C (36.4 - 37.5) Temperature Source Tympanic Pulse Rate (adult) 63 bpm (60 - 90) Respiratory Rate 20 bpm (12 - 24) O2 Sat by Pulse Oximetry 96 % (88 - 100) Blood Pressure 130/83 mm Hg Pain Pain Intensity 0 Height (Feet) 6 feet Height (Inches) 0.00 inches Height (Calculated Centimeters) 182. 805435 cm Weight (Pounds) 335 pounds Weight (Ounces) 0.5 oz Weight (Calculated Grams) 878655.620 gm Weight (Calculated Kilograms) 151.96 7620 kilograms Calculated BMI 45.43 Vital Response Date/Time Temperature (Fahrenheit) 98.0 degree s F (97.6 - 99.5) 02/09/2018 2:37pm Temperature (Calculated Celsius) 36. 52858 degrees C (36.4 - 37.5) 02/09/2018 2:37pm Temperature Source Temporal 02/09/2018 2:37pm Pulse Rate (adult) 82 bpm (60 - 90) 02/09/2018 2:37pm Respiratory Rate 15 bpm (12 - 24) 02/09/2018 2:37pm O2 Sat by Pulse Oximetry 6 % (88 - 100) 02/09/2018 2:37pm Blood Pressure 148/72 mm Hg 02/09/2018 2:37pm Blood Pressure Mean 97 mm Hg (65 - 110) 02/09/2018 2:37pm Pain Numeric Pain Scale 5-Moderate Pain 02/09/2018 2:37pm Height (Feet) 6 feet 06/2018 2:37pm Height (Calculated Centimeters) 182. 417588 cm 02/09/2018 2:37pm Weight (Pounds) 342 pounds 02/09/2018 2:37pm Weight (Calculated Grams) 935651.59 gm 02/09/2018 2:37pm Weight (Calculated Kilograms) 155.12 8592 kilograms 02/09/2018 2:37pm Weight Method Stated 06/2018 2:37pm Capillary Refill Capillary Refill Less Than 3 Seconds 02/09/2018 2:37pm Height 6 ft 0 in 018 2:37pm Weight 342 lb 02/09/2018 2:37pm Body Mass Index 46.4 kg/m^2 02/09/2018 2:37pm Vital Response Date/Time Temperature (Fahrenheit) 97.5 degree s F (97.6 - 99.5) 04/08/2018 8:00am Temperature (Calculated Celsius) 36. 70248 degrees C (36.4 - 37.5) 04/08/2018 8:00am Temperature Source Temporal 04/08/2018 8:00am Pulse Rate (adult) 66 bpm (60 - 90) 04/08/2018 8:00am Respiratory Rate 18 bpm (12 - 24) 04/08/2018 8:00am O2 Sat by Pulse Oximetry 97 % (88 - 100) 04/08/2018 8:00am Blood Pressure 153/71 mm Hg 04/08/2018 8:00am Blood Pressure Mean 98 mm Hg (65 - 110) 04/08/2018 8:00am Pain Numeric Pain Scale 0-No Pain 04/08/2018 8:00am Height (Feet) 6 feet 11/2017 12:45am Height (Inches) 0.00 inches 04/06/2018 12:45am Height (Calculated Centimeters) 182. 465050 cm 04/06/2018 12:45am Height Method Stated 10/2017 3:44pm Weight (Pounds) 330 pounds 04/06/2018 12:45am Weight (Ounces) 0.0 oz 0 04/06/2018 12:45am Weight (Calculated Grams) 875126.48 gm 04/06/2018 12:45am Weight (Calculated Kilograms) 149.68 5484 kilograms 04/06/2018 12:45am Calculated BMI 44.8 11/2017 12:45am Weight Method Stated 10/2017 3:44pm Weight Measurement Method [facility] 04/06/2018 12:45am Capillary Refill Capillary Refill Less Than 3 Seconds 04/07/2018 8:45pm Vital Response Date/Time Temperature (Fahrenheit) 97.5 degree s F (97.6 - 99.5) 04/08/2018 8:00am Temperature (Calculated Celsius) 36. 15046 degrees C (36.4 - 37.5) 04/08/2018 8:00am Temperature Source Temporal 04/08/2018 8:00am Pulse Rate (adult) 66 bpm (60 - 90) 04/08/2018 8:00am Respiratory Rate 18 bpm (12 - 24) 04/08/2018 8:00am O2 Sat by Pulse Oximetry 97 % (88 - 100) 04/08/2018 8:00am Blood Pressure 153/71 mm Hg 04/08/2018 8:00am Blood Pressure Mean 98 mm Hg (65 - 110) 04/08/2018 8:00am Pain Numeric Pain Scale 0-No Pain 04/08/2018 8:00am Height (Feet) 6 feet 11/2017 12:45am Height (Inches) 0.00 inches 04/06/2018 12:45am Height (Calculated Centimeters) 182. 242564 cm 04/06/2018 12:45am Height Method Stated 10/2017 3:44pm Weight (Pounds) 330 pounds 04/06/2018 12:45am Weight (Ounces) 0.0 oz 0 04/06/2018 12:45am Weight (Calculated Grams) 959087.48 gm 04/06/2018 12:45am Weight (Calculated Kilograms) 149.68 5484 kilograms 04/06/2018 12:45am Calculated BMI 44.8 11/2017 12:45am Weight Method Stated 10/2017 3:44pm Weight Measurement Method Built in [facility] 04/06/2018 12:45am Capillary Refill Capillary Refill Less Than 3 Seconds 04/07/2018 8:45pm Interventions No Information Plan of Treatment The data below is from unstructured sources Prescriptions See Medication Section Discharge Date 11/13/16 10:30am Disposition 05 XFER OTHER Instructions/Education Provided Cell ulitis (Skin Infection), Adult (DC) Prescriptions See Medication Section Discharge Date 11/18/16 12:36pm Disposition 01 HOME, SELF-CARE Instructions/Education Provided Cell ulitis (Skin Infection), Adult (DC) Forms Provided Rehab Team Conference Summary Prescriptions See Medication Section Additional Instructions/Education Fo llow-up Appointment with Dr. Kahn Wednesday, November 30, 2016 at 2:30 PM Care Plan and Goals F/U with PCP Acc uchecks as per home regimen Discharge Date 08/07/15 2:05pm Instructions/Education Provided CARD IAC CATH DISCHARGE INSTRUC Prescriptions See Medication Section Prescriptions Discharge Date 01/29/15 12:32pm Disposition 01 HOME, SELF-CARE Instructions/Education Provided Hypo natremia (GEN) Forms Provided PDI Medical Prescriptions See Medications Sectio n Referrals GIL KAHN DO (Uns pecified) 02/11/15 Address: [address] [place] [address] [place] [address] Reason(s) for Referral: AT 11:00 AM CALL AND RESCHEDULE IF UNABLE TO KEEP APPOINTMENT DR KAHN WILL MAKE THE APPOINT[facility] Discharge Date 02/09/18 6:46pm Disposition 02 XFER [facility] Condition at Discharge Improved Prescriptions See Medication Section Referrals GIL KAHN DO Order Date: Primary Care Physician Address: [address] [place] [id number] Discharge Date 04/08/18 10:00am Disposition 62 DISC/XFER TO IRF Instructions/Education Provided EDUAR L SYNDROME Prescriptions See Medication Section Discharge Date 04/08/18 10:00am Disposition 62 DISC/XFER TO IRF Instructions/Education Provided EDUAR L SYNDROME Prescriptions See Medication Section Goals No Information Social History No Information Functional Status The data below is from unstructured sources Query Response Date Andre rded Patient Orientation Person Place Time Situation November 12, 2016 1:07pm Patient Orientation Person Place Time Situation November 13, 2016 8:00am Comprehension Ability Understands Co ncepts November 13, 2016 8:00am Query Response Date Andre rded Patient Orientation Person Place Time Situation November 17, 2016 12:12pm Patient Orientation Person Place Time Situation November 18, 2016 9:00am Comprehension Ability Understands Co ncepts November 18, 2016 9:00am Query Response Date Nadre rded Patient Orientation Person Place Time Situation August 07, 2015 2:32pm Query Response Date Andre rded Patient Orientation Normal For Age January 28, 2015 1:43pm Comprehension Ability Understands Co ncepts January 29, 2015 7:31am Query Response Date Andre rded Comprehension Ability Understands Co ncepts February 09, 2018 3:05pm Query Response Date Andre rded Patient Orientation Person Place Time Situation April 07, 2018 10:34am Comprehension Ability Understands Co ncepts April 08, 2018 8:00am Query Response Date Andre rded Patient Orientation Person Place Time Situation April 07, 2018 10:34am Comprehension Ability Understands Co ncepts April 08, 2018 8:00am Mental Status No Information Encounters Encounter Normalized Encounter Encounter Diagnosis Care Provi carlos Organization Date Type 01-02-2020 Emergency department no information RIOS SOTO MD [facility] patient visit (no phone) [facility] (no phone) 10-11-2019 Emergency department no information PRIMO MEJÍA (no [facility] patient visit phone) [facility] (no phone) 12-16-2018 Emergency department no information no name no organization name patient visit 11-07-2018 Emergency department no information no name no organization name - patient visit 11-07-2018 11-07-2018 Emergency department no information no name no organization name - patient visit 11-07-2018 04-05-2018 Emergency department no information no name no organization name patient visit 02-09-2018 Emergency department no information MISAEL pozo no organization name - patient visit Phone: 02-09-2018 02-09-2018 Emergency department no information no name no organization name - patient visit 02-09-2018 07-08-2016 Emergency department no information no name no organization name - patient visit 07-08-2016 07-08-2016 Emergency department no information no name no organization name - patient visit 07-08-2016 10-11-2019 Evaluation and no information ANTONIO MICHAELS MD (no [facility] - management of phone) [facility] 10-13-2019 inpatient (no phone) 10-11-2019 Evaluation and no information ANTONIO MICHAELS MD (no [facility] - management of phone) [facility] 10-13-2019 inpatient (no phone) 12-16-2018 Evaluation and no information no name no organ ization name - management of 12-28-2018 inpatient 04-08-2018 Evaluation and no information no name no organ ization name - management of 04-15-2018 inpatient 04-08-2018 Evaluation and no information no name no organ ization name - management of 04-15-2018 inpatient 04-06-2018 Evaluation and Altered mental status CASSY GUARDADO S Work no organization name - management of Phone: 04-08-2018 inpatient 04-05-2018 Evaluation and no information no name no organ ization name - management of 04-08-2018 inpatient 11-13-2016 Evaluation and no information no name no organ ization name - management of 11-18-2016 inpatient 11-10-2016 Evaluation and no information no name no organ ization name - management of 11-13-2016 inpatient 01-23-2015 Evaluation and no information no name no organ ization name - management of 01-29-2015 inpatient 04-08-2018 Patient encounter no information no name no or ganization name - 04-15-2018 04-06-2018 Patient encounter no information no name no or ganization name - 04-08-2018 02-09-2018 Patient encounter no information no name no or ganization name 10-11-2017 Patient encounter no information no name no or ganization name 10-11-2019 Patient encounter no information ANTONIO MICHAELS MD (no [facility] - procedure phone) [facility] 10-13-2019 (no phone) 08-31-2019 Patient encounter no information ODILON ALEXANDER (no [facility] - procedure phone) [facility] 08-31-2019 (no phone) 08-29-2019 Patient encounter no information no name no or ganization name procedure 08-22-2019 Patient encounter no information no name no or ganization name procedure 08-18-2019 Patient encounter no information no name no or ganization name procedure 08-17-2019 Patient encounter no information no name no or ganization name - procedure 08-16-2019 08-15-2019 Patient encounter no information no name no or ganization name procedure 08-10-2019 Patient encounter no information no name no or ganization name procedure 08-03-2019 Patient encounter no information no name no or ganization name procedure 07-20-2019 Patient encounter no information no name no or ganization name procedure 07-13-2019 Patient encounter no information no name no or ganization name procedure 07-11-2019 Patient encounter no information no name no or ganization name procedure 07-07-2019 Patient encounter no information no name no or ganization name procedure 07-04-2019 Patient encounter no information no name no or ganization name procedure 06-21-2019 Patient encounter no information no name no or ganization name procedure 06-19-2019 Patient encounter no information no name no or ganization name procedure 06-16-2019 Patient encounter no information no name no or ganization name procedure 06-14-2019 Patient encounter no information no name no or ganization name procedure 06-12-2019 Patient encounter no information no name no or ganization name procedure 06-09-2019 Patient encounter no information no name no or ganization name procedure 06-07-2019 Patient encounter no information no name no or ganization name procedure 06-02-2019 Patient encounter no information no name no or ganization name procedure 05-31-2019 Patient encounter no information no name no or ganization name procedure 05-26-2019 Patient encounter no information no name no or ganization name procedure 05-19-2019 Patient encounter no information no name no or ganization name procedure 04-19-2019 Patient encounter no information no name no or ganization name - procedure 04-20-2019 04-12-2019 Patient encounter no information no name no or ganization name - procedure 04-13-2019 03-31-2019 Patient encounter no information no name no or ganization name - procedure 04-01-2019 03-22-2019 Patient encounter no information no name no or ganization name - procedure 03-23-2019 12-16-2018 Patient encounter no information no name no or ganization name - procedure 12-28-2018 11-07-2018 Patient encounter no information no name no or ganization name procedure 11-13-2016 Patient encounter no information no name no or ganization name - procedure 11-18-2016 07-01-2016 Patient encounter no information no name no or ganization name procedure 06-24-2016 Patient encounter no information no name no or ganization name - procedure 06-30-2016 06-24-2016 Patient encounter no information no name no or ganization name - procedure 06-29-2016 06-01-2016 Patient encounter no information no name no or ganization name procedure 01-06-2016 Patient encounter no information no name no or ganization name procedure 01-06-2016 Patient encounter no information no name no or ganization name procedure 12-30-2015 Patient encounter no information no name no or ganization name procedure 12-30-2015 Patient encounter no information no name no or ganization name procedure 12-23-2015 Patient encounter no information no name no or ganization name procedure 12-16-2015 Patient encounter no information no name no or ganization name procedure 12-16-2015 Patient encounter no information no name no or ganization name procedure 12-12-2015 Patient encounter no information no name no or ganization name procedure 12-09-2015 Patient encounter no information no name no or ganization name procedure 12-06-2015 Patient encounter no information no name no or ganization name - procedure 12-06-2015 12-06-2015 Patient encounter no information no name no or ganization name - procedure 12-06-2015 12-02-2015 Patient encounter no information no name no or ganization name procedure 08-07-2015 Patient encounter no information no name no or ganization name - procedure 08-07-2015 08-07-2015 Patient encounter no information no name no or ganization name - procedure 08-07-2015 06-19-2015 Patient encounter no information no name no or ganization name procedure 06-19-2015 Patient encounter no information no name no or ganization name procedure 06-13-2014 Patient encounter no information no name no or ganization name procedure 06-13-2014 Patient encounter no information no name no or ganization name procedure 03-07-2014 Patient encounter no information no name no or ganization name procedure 03-07-2014 Patient encounter no information no name no or ganization name procedure 06-14-2013 Patient encounter no information no name no or ganization name procedure 06-09-2013 Patient encounter no information no name no or ganization name procedure Medical Equipment No Information Payers Normalized Payer Value Medicare no information Advance Directives Directive Response Recor ded Date/Time Advance Directives No 7:24am Health Care Power of Vibratory Pile Driver No 08/07/15 7:24am Organ Donor Yes 08/07/15 7:24am Directive Response Recor ded Date/Time Advance Directives No 2:00pm Health Care Power of Vibratory Pile Driver No 11/10/16 2:00pm Organ Donor Yes 11/10/16 2:00pm Resuscitation Status Full Code 11/10/16 2:00pm Directive Response Recor ded Date/Time Advance Directives No 12:20pm Health Care Power of Vibratory Pile Driver No 11/13/16 12:20pm Organ Donor Yes 11/13/16 12:20pm Resuscitation Status Full Code 11/13/16 12:20pm Directive Response Recor ded Date/Time Advance Directives No 7:24am Health Care Power of Vibratory Pile Driver No 08/07/15 7:24am Organ Donor Yes 08/07/15 7:24am Resuscitation Status Full Code 08/07/15 7:24am Directive Response Recor ded Date/Time Advance Directives No 7:30pm Health Care Power of Vibratory Pile Driver No 01/23/15 7:30pm Organ Donor Yes 01/23/15 7:30pm Resuscitation Status Full Code 01/23/15 7:30pm Directive Response Recor ded Date/Time Advance Directives No 3:39pm Health Care Power of Vibratory Pile Driver No 02/09/18 3:39pm Organ Donor Yes 02/09/18 3:39pm Resuscitation Status Full Code 02/09/18 3:39pm Directive Response Recor ded Date/Time Advance Directives No 11:45pm Health Care Power of Vibratory Pile Driver No 04/05/18 11:45pm Organ Donor Yes 04/05/18 11:45pm Resuscitation Status Full Code 04/05/18 11:45pm Discharge Instructions No hospital discharge instructions.No hospital discharge instruction information available.No hospital discharge instruction information available. Patient Instructions Physician Instructions Follow Up/Plan Appointment with Dr Terry's office in 2-4 weeks CARDIAC CATH DISCHARGE INSTRUCTIONS *Hold Metformin for 48 hours post heart cath. ACTIVITY * Go Home directly and rest. * Limit activity of the leg (or wrist if it was used) for 7 days including aerobics, swimming, jogging, bicycling, etc. * Restrict stair-climbing for 7 days if possible, if not, climb up with your non-cath leg, then bring together on the same step. * Avoid lifting, pushing, pulling or excessive movement of the affected extremity for 7 days. * Customary sexual activity may be resumed after 2 days-use caution not to use a position that strains or causes pain to the affected extremity. * No driving for 24 hours. * NO SMOKING. * Avoid straining for bowel movements for 7 days. * Gentle walking on level ground is allowed. * Returning to work will depend on the type of procedure and the results. Your doctor will discuss this with you. CALL YOUR DOCTOR FOR ANY OF THE FOLLOWING: *If bleeding from the puncture site occurs- Apply gentle pressure to site with clean cloth and call your doctor or EMS. * If a knot or lump forms under the skin, increases in size, or causes pain. * If bruising appears to be worsening or moving further down your leg instead of disappearing. * Temperature above 101 F. CARE OF YOUR GROIN INCISION; * Bruising or purple discoloration of the skin near the puncture site is common. * You may shower only, no bathtub bathing for 5 days. Be careful to avoid slipping as your leg may feel stiff. * If a closure device was used on your femoral artery, please see the attached guide regarding care of the device and your leg. * REMOVE the dressing from your groin the next day after your procedure in the shower. CARE OF YOUR WRIST INCISION; * Bruising or purple discoloration of the skin near the puncture site is common. * You may shower. * DO NOT submerge wrist. * Remove dressing in 24 hours. Current inpatient/outpatient. Discharge instructions are currently unavailable. Patient Instructions Physician Instructions New, Converted or Re-Newed RX: Other Plan of Care/Instructions/FU: 1. Follow up Dr. Kahn in office 2 weeks. Call for appointment. 2. [facility]. Activity as Tolerated: Yes Discharge Diet: ADA Diet (2000 SHANTAL ADA.) Care Plan Patient Instructions:: 1. Follow up Dr. Kahn in office 2 weeks. Call for appointment.2. [facility]. No hospital discharge instruction information available.No hospital discharge instruction information available. Chief Complaint and Reason for Visit Chief Complaint FEVER OF UNKNOWN CHARLENE RCE,VOMITING,SEVERE DIZZINESS Reason for Visit Altered mental stat us TREE (obstructive sleep apnea) Fever Insulin dependent diabetes mellitus Cellulitis of right lower extremity FEVER OF UNKNOWN SOURCE, VOMITING, HEADACHE, SEVERE DIZZINESS Fever Insulin dependent diabetes mellitus CAD (coronary artery disease) TREE (obstructive sleep apnea) Debility Additional Source Comments This clinical document has been generated using [employer] software that has been certified by the Office of the National Coordinator for Health Information Technology (ONC 15.99.04.3023.Diam.[id number]) and the National Committee for Professor Of Art History (NCQA, as an eMeasure certified technology). FOR RECORDS PERTAINING TO PATIENTS WHO ARE OR HAVE BEEN ENROLLED IN A CHEMICAL D EPENDENCY/SUBSTANCE ABUSE PROGRAM, SOME INFORMATION MAY BE OMITTED. This clinica l summary was aggregated from multiple sources. Caution should be exercised in using it in the provision of clinical care. This summary normalizes information from multiple sources, and as a consequence, information in this document may ma terially change the coding, format and clinical context of patient data. In quan tion, data may be omitted in some cases. CLINICAL DECISIONS SHOULD BE BASED ON T HE PRIMARY CLINICAL RECORDS. [employer] [facility]. provides no warranty or guara ntee of the accuracy or completeness of information in this document.The followi ng information is based on time limited clinical information
--- OUTSIDE RECORDS SUMMARY | 2020-01-02 20:20 | XMS REPORT | Continuity of Care Document ---
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 05/23/2019 JUDY CABRALES MD Ot B95.61 METHICILLIN SUSCEP STAPH INFCT CAUSING D 05/23/2019 JUDY CABRALES MD, Ot M86.242 SUBACUTE OSTEOMYELITIS, LEFT HAND 05/23/2019 JUDY CABRALES MD, Ot 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 05/23/2019 JUDY CABRALES MD, Ot B95.61 METHICILLIN SUSCEP STAPH INFCT CAUSING D 05/23/2019 JUDY CABRALES MD, Ot M86.242 SUBACUTE OSTEOMYELITIS, LEFT HAND 05/23/2019 JUDY CABRALES MD, Ot A49.01 METHICILLIN SUSCEP STAPH INFECTION, UNSP 05/23/2019 JUDY CABRALES MD, Ot M86.242 SUBACUTE OSTEOMYELITIS, LEFT HAND 05/23/2019 JUDY CABRALES MD, Ot 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 05/23/2019 JUDY CABRALES MD, Ot B95.61 METHICILLIN SUSCEP STAPH INFCT CAUSING D 05/23/2019 JUDY CABRALES MD, Ot M86.242 SUBACUTE OSTEOMYELITIS, LEFT HAND 05/23/2019 JUDY CABRALES MD, Ot 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 05/23/2019 GIL KAHN DO, Ot R42 DIZZINESS AND GIDDINESS 05/23/2019 GIL KAHN DO, Ot R51 HEADACHE 05/23/2019 GIL KAHN DO, Ot Z48.812 ENCNTR FOR SURGICAL AFTCR FOLLOWING SURG 05/23/2019 GIL KAHN DO, Ot Z95.1 PRESENCE OF AORTOCORONARY BYPASS GRAFT 05/23/2019 GIL KAHN DO, Ot S69.92XA UNSP INJURY OF LEFT WRIST, HAND AND FING 05/23/2019 GIL KAHN DO, Ot S99.922A UNSPECIFIED INJURY OF LEFT FOOT, INITIAL 06/01/2019 ODILON MALONE TRA[employer]STRUCTION WORKER Ot 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 9 TYPE 2 DIABETES MELLITUS WITHOUT COMPLIC 08/31/2019 ODILON [employer] WORKER Ot G57. 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 0 LOCALIZED ENLARGED LYMPH NODES 08/31/2019 ODILON [employer] WORKER Ot Z89.5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 08/31/2019 ODIL[employer]CTION WORKER Ot Z98.890 OTHER SPECIFIED POSTPROCEDURAL STATES 08/31/2019 ODILON [employer]CTION WORKER Ot E11. 9 TYPE 2 DIABETES MELLITUS WITHOUT COMPLIC 08/31/2019 OD[employer] WORKER Ot G57. 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 0 LOCALIZED ENLARGED LYMPH NODES 08/31/2019 [employer]CTION WORKER Ot Z89.5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 08/31/[address] [employer] [employer]STRUCTION WORKER Ot Z98.890 OTHER SPECIFIED POSTPROCEDURAL STATES 10/13/2019 ANTONIO MICHAELS MD Ot E11. 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 9 OBESITY, UNSPECIFIED 10/13/2019 ANTONIO MICHAELS MD, Ot E78. 00 PURE HYPERCHOLESTEROLEMIA, UNSPECIFIED 10/13/2019 ANTONIO MICHAELS MD, Ot E78. 5 HYPERLIPIDEMIA, UNSPECIFIED 10/13/2019 ANTONIO MICHAELS MD, Ot G47. 30 SLEEP APNEA, UNSPECIFIED 10/13/2019 ANTONIO MICHAELS MD, Ot G62. 9 POLYNEUROPATHY, UNSPECIFIED 10/13/2019 ANTONIO MICHAELS MD Ot G89. 29 OTHER CHRONIC PAIN 10/13/2019 ANTONIO MICHAELS MD Ot I13. 0 HYP HRT CHR KDNY DIS W HRT FAIL AND ST 10/13/2019 ANTONIO MICHAELS MD, Ot I25. 10 ATHSCL HEART DISEASE OF [place] CORONARY 10/13/2019 ANTONIO MICHAELS MD, Ot I25. 2 OLD MYOCARDIAL INFARCTION 10/13/2019 ANTONIO MICHAELS MD, Ot I27. 20 PULMONARY HYPERTENSION, UNSPECIFIED 10/13/2019 ANTONIO MICHAELS MD Ot I50. 9 HEART FAILURE, UNSPECIFIED 10/13/2019 BRANDO MD, ANTONIO M Ot I65. 23 OCCLUSION AND STENOSIS OF BILATERAL TRAN 10/13/2019 ANTONIO MICHAELS MD, Ot J18. 1 LOBAR PNEUMONIA, UNSPECIFIED ORGANISM 10/13/2019 ANTONIO MICHAELS MD, Ot J44. 9 CHRONIC OBSTRUCTIVE PULMONARY DISEASE, U 10/13/2019 ANTONIO MICHAELS MD, Ot M19. 90 UNSPECIFIED OSTEOARTHRITIS, UNSPECIFIED 10/13/2019 ANTONIO MICHAELS MD, Ot M54. 2 CERVICALGIA 10/13/2019 ANTONIO MICHAELS MD, Ot N18. 9 CHRONIC KIDNEY DISEASE, UNSPECIFIED 10/13/2019 ANTONIO MICHAELS MD, Ot Z79. 01 SHELTER (CURRENT) USE OF ANTICOAGULANT 10/13/2019 ANTONIO MICHAELS MD, Ot Z79. 82 BULLET LUBRICATING MACHINE OPERATOR (CURRENT) USE OF ASPIRIN 10/13/2019 ANTONIO MICHAELS MD, Ot Z79. 84 BULLET LUBRICATING MACHINE OPERATOR (CURRENT) USE OF ORAL HYPOGLYC 10/13/2019 ANTONIO MICHAELS MD, Ot Z79.891 SHELTER (CURRENT) USE OF OPIATE ANALGE 10/13/2019 ANTONIO MICHAELS MD, Ot Z87.891 PERSONAL HISTORY OF NICOTINE DEPENDENCE 10/13/2019 ANTONIO MICHAELS MD, Ot Z88. 8 ALLERGY STATUS TO OTH DRUG/MEDS/BIOL SUB 10/13/2019 ANTONIO MICHAELS MD Ot Z95. 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 9 OBESITY, UNSPECIFIED 10/13/2019 ANTONIO MICHAELS MD Ot E78. 00 PURE HYPERCHOLESTEROLEMIA, UNSPECIFIED 10/13/2019 ANTONIO MICHAELS MD, Ot E78. 5 HYPERLIPIDEMIA, UNSPECIFIED 10/13/2019 ANTONIO MICHAELS MD, Ot G47. 30 SLEEP APNEA, UNSPECIFIED 10/13/2019 ANTONIO MICHAELS MD, Ot G62. 9 POLYNEUROPATHY, UNSPECIFIED 10/13/2019 ANTONIO MICHAELS MD Ot G89. 29 OTHER CHRONIC PAIN 10/13/2019 ANTONIO MICHAELS MD, Ot I13. 0 HYP HRT CHR KDNY DIS W HRT FAIL AND ST 10/13/2019 ANTONIO MICHAELS MD, Ot I25. 10 ATHSCL HEART DISEASE OF [place] CORONARY 10/13/2019 ANTONIO MICHAELS MD, Ot I25. 2 OLD MYOCARDIAL INFARCTION 10/13/2019 ANTONIO MICHAELS MD, Ot I27. 20 PULMONARY HYPERTENSION, UNSPECIFIED 10/13/2019 ANTONIO MICHAELS MD, Ot I50. 9 HEART FAILURE, UNSPECIFIED 10/13/2019 ANTONIO MICHAELS MD, Ot I65. 23 OCCLUSION AND STENOSIS OF BILATERAL TRAN 10/13/2019 ANTONIO MICHAELS MD, Ot J18. 1 LOBAR PNEUMONIA, UNSPECIFIED ORGANISM 10/13/2019 ANTONIO MICHAELS MD, Ot J44. 9 CHRONIC OBSTRUCTIVE PULMONARY DISEASE, U 10/13/2019 ANTONIO MICHAELS MD, Ot M19. 90 UNSPECIFIED OSTEOARTHRITIS, UNSPECIFIED 10/13/2019 ANTONIO MICHAELS MD, Ot M54. 2 CERVICALGIA 10/13/2019 ANTONIO MICHAELS MD, Ot N18. 9 CHRONIC KIDNEY DISEASE, UNSPECIFIED 10/13/2019 ANTONIO MICHAELS MD, Ot Z79. 01 BULLET LUBRICATING MACHINE OPERATOR (CURRENT) USE OF ANTICOAGULANT 10/13/2019 ANTONIO MICHAELS MD Ot Z79. 82 SHELTER (CURRENT) USE OF ASPIRIN 10/13/2019 ANTONIO MICHAELS MD, Ot Z79. 84 BULLET LUBRICATING MACHINE OPERATOR (CURRENT) USE OF ORAL HYPOGLYC 10/13/2019 ANTONIO MICHAELS MD, Ot Z79.891 SHELTER (CURRENT) USE OF OPIATE ANALGE 10/13/2019 ANTONIO MICHAELS MD, Ot Z87.891 PERSONAL HISTORY OF NICOTINE DEPENDENCE 10/13/2019 ANTONIO MICHAELS MD, Ot Z88. 8 ALLERGY STATUS TO OT DRUG/MEDS/BIOL SUB 10/13/2019 ANTONIO MICHAELS MD, Ot Z95. 1 PRESENCE OF AORTOCORONARY BYPASS GRAFT Procedures Code Description Performed By Per mauro On 86.04 04/29/2012 [id number] DE TACHMENT AT RIGHT LOWER LEG, HIGH, OPE 12/23/2018 Results Test Result Range Capillary blood glucose measurement by g lucometer (mass/volume) - 04/01/16 10:22 Capillary blood glucose measurement by glucometer (mas s/volume) 223 mg/dL 70-110 Capillary blood glucose measurement by g lucometer (mass/volume) - 05/06/16 08:44 Capillary blood glucose measurement by glucometer (mas s/volume) 316 mg/dL 70-110 Capillary blood glucose measurement by g lucometer (mass/volume) - 05/27/16 08:33 Capillary blood glucose measurement by glucometer (mas s/volume) 325 mg/dL 70-110 Complete blood count (CBC) with automate d white blood cell (WBC) differential - 11/10/16 09:42 Blood leukocytes automated count (number/volume) 13.5 10*3/uL 4.3-11.0 Blood erythrocytes automated count (number/volume) 4.28 10*6/uL 4.35-5.85 Venous blood hemoglobin measurement (mass/volume) 12.6 g/dL 13.3-17.7 Blood hematocrit (volume fraction) 37 % 40-54 Automated erythrocyte mean corpuscular volume 86 [ foz_us] 80-99 Automated erythrocyte mean corpuscular h emoglobin (mass per erythrocyte) 29 pg 25-34 Automated erythrocyte mean corpuscular h emoglobin concentration measurement (mass/volume) 34 g/dL 32-36 Automated erythrocyte distribution width ratio 15. 5 % 10.0- 14.5 Automated blood platelet count (count/volume) 114 10*3/uL [...] 10*3 1.0-4.0 Blood monocytes automated count (number/volume) 0. 8 10*3 0.0-1.0 Automated eosinophil count 0.0 10*3/uL 0 .0-0.3 Automated blood basophil count (count/volume) 0.0 10*3/uL 0.0-0.1 Blood lactic acid measurement (moles/vol ume) - 11/10/16 09:42 Blood lactic acid measurement (moles/volume) 1.47 mmol/L 0.50-2.00 PT panel in platelet poor plasma by coag ulation assay - 11/10/16 09:42 Prothrombin time (PT) in platelet poor plasma by coagu lation assay 14.4 s 12.2-14.7 INR in platelet poor plasma or blood by coagulation as say 1.2 0.8-1.4 Activated partial thromboplastin time (a PTT) in platelet poor plasma bycoagulation assay - 11/10/16 09:42 Activated partial thromboplastin time (a PTT) in platelet poor plasma bycoagulation assay 27 s 24-35 Comprehensive metabolic panel - 11/10/16 09:42 Serum or plasma sodium measurement (moles/volume) 133 mmol/L 135-145 Serum or plasma potassium measurement (moles/volume) 3.5 mmol/L 3.6-5.0 Serum or plasma chloride measurement (moles/volume) 102 mmol/L 98-107 Carbon dioxide 19 mmol/L 21-32 Serum or plasma anion gap determination (moles/volume) 12 mmol/L 5-14 Serum or plasma urea nitrogen measurement (mass/volume ) 21 mg/dL 7-18 Serum or plasma creatinine measurement (mass/volume) 1.57 mg/dL 0.60-1.30 Serum or plasma urea nitrogen/creatinine mass ratio 13 NRG Serum or plasma creatinine measurement w ith calculation of estimated glomerular filtration rate 45 NRG Serum or plasma glucose measurement (mass/volume) 349 mg/dL 70-105 Serum or plasma calcium measurement (mass/volume) 8.0 mg/dL 8.5-10.1 Serum or plasma total bilirubin measurement (mass/volu me) 1.3 mg/dL 0.1-1.0 Serum or plasma alkaline phosphatase malika surement (enzymatic activity/volume) 78 U/L 40-136 Serum or plasma aspartate aminotransfera se measurement (enzymatic activity/volume) 18 U/L 5-34 Serum or plasma alanine aminotransferase measurement (enzymatic activity/volume) 17 U/L 0-55 Serum or plasma protein measurement (mass/volume) 6.0 g/dL 6.4-8.2 Serum or plasma albumin measurement (mass/volume) 3.4 g/dL 3.2-4.5 Blood manual differential performed dete ction - 11/10/16 09:42 Blood monocytes/100 leukocytes 7 % NRG Manual blood segmented neutrophils/100 leukocytes 72 % NRG Blood band neutrophils/100 leukocytes 15 % NRG Manual blood lymphocytes/100 leukocytes 5 % NRG Manual eosinophils/100 leukocytes in nose 0 % NRG Manual blood basophils/100 leukocytes 0 % NRG Blood lymphocytes variant/100 leukocytes 1 % NRG Blood anisocytosis detection by light microscopy S LIGHT NRG Serum or plasma troponin i.cardiac measu rement (mass/volume) - 11/10/16 09:42 Serum or plasma troponin i.cardiac measurement (mass/v olume) < ng/mL <0.30 Bacterial blood culture - 11/10/16 09:42 Bacterial blood culture NG NRG Influenza virus A and B antigen detectio n - 11/10/16 09:55 FLU RESULT NEGATIVE FOR INFLUENZA A AND B ANTIGENS BY IA NRG Bacterial blood culture - 11/10/16 10:13 Bacterial blood culture NG NRG Complete urinalysis with reflex to cultu re - 11/10/16 11:35 Urine color determination YELLOW NRG Urine clarity determination CLEAR NR G Urine pH measurement by test strip 5 5-9 Specific gravity of urine by test strip 1.030 1.016-1.022 Urine protein assay by test strip, semi-quantitative 4+ NEGATIVE Urine glucose detection by automated test strip 4+ NEGATIVE Erythrocytes detection in urine sediment by light micr oscopy 2+ NEGATIVE Urine ketones detection by automated test strip 2+ NEGATIVE Urine nitrite detection by test strip NEGATIVE NEGATIVE Urine total bilirubin detection by test strip 1+ NEGATIVE Urine urobilinogen measurement by automated test strip (mass/volume) 1 mg/dL NORMAL Urine leukocyte esterase detection by dipstick 1+ NEGATIVE Automated urine sediment erythrocyte cou nt by microscopy (number/high power field) RARE NRG Automated urine sediment leukocyte count by microscopy (number/high power field) [HPF] NRG Bacteria detection in urine sediment by light microsco py TRACE NRG Squamous epithelial cells detection in u rine sediment by light microscopy RARE NRG Crystals detection in urine sediment by light microsco py NONE NRG Casts detection in urine sediment by light microscopy PRESENT NRG Mucus detection in urine sediment by light microscopy MODERATE NRG Complete urinalysis with reflex to culture NO NRG Hyaline casts detection in urine sediment by light keyshawn roscopy 5-10 NRG Other elements identification in urine sediment by lig ht microscopy FEW SPERM NRG Capillary blood glucose measurement by g lucometer (mass/volume) - 11/10/16 15:27 Capillary blood glucose measurement by glucometer (mas s/volume) 376 mg/dL 70-110 Capillary blood glucose measurement by g lucometer (mass/volume) - 11/10/16 22:03 Capillary blood glucose measurement by glucometer (mas s/volume) 430 mg/dL 70-110 Capillary blood glucose measurement by g lucometer (mass/volume) - 11/11/16 05:20 Capillary blood glucose measurement by glucometer (mas s/volume) 296 mg/dL 70-110 Complete blood count (CBC) with automate d white blood cell (WBC) differential - 11/11/16 06:14 Blood leukocytes automated count (number/volume) 11.8 10*3/uL 4.3-11.0 Blood erythrocytes automated count (number/volume) 4.26 10*6/uL 4.35-5.85 Venous blood hemoglobin measurement (mass/volume) 12.5 g/dL 13.3-17.7 Blood hematocrit (volume fraction) 37 % 40-54 Automated erythrocyte mean corpuscular volume 86 [ foz_us] 80-99 Automated erythrocyte mean corpuscular h emoglobin (mass per erythrocyte) 29 pg 25-34 Automated erythrocyte mean corpuscular h emoglobin concentration measurement (mass/volume) 34 g/dL 32-36 Automated erythrocyte distribution width ratio 15. 6 % 10.0- 14.5 Automated blood platelet count (count/volume) 121 10*3/uL [...] 10*3 1.0-4.0 Blood monocytes automated count (number/volume) 1. 0 10*3 0.0-1.0 Automated eosinophil count 0.0 10*3/uL 0 .0-0.3 Automated blood basophil count (count/volume) 0.0 10*3/uL 0.0-0.1 Comprehensive metabolic panel - 11/11/16 06:14 Serum or plasma sodium measurement (moles/volume) 135 mmol/L 135-145 Serum or plasma potassium measurement (moles/volume) 3.5 mmol/L 3.6-5.0 Serum or plasma chloride measurement (moles/volume) 104 mmol/L 98-107 Carbon dioxide 21 mmol/L 21-32 Serum or plasma anion gap determination (moles/volume) 10 mmol/L 5-14 Serum or plasma urea nitrogen measurement (mass/volume ) 22 mg/dL 7-18 Serum or plasma creatinine measurement (mass/volume) 1.25 mg/dL 0.60-1.30 Serum or plasma urea nitrogen/creatinine mass ratio 18 NRG Serum or plasma creatinine measurement w ith calculation of estimated glomerular filtration rate 58 NRG Serum or plasma glucose measurement (mass/volume) 260 mg/dL 70-105 Serum or plasma calcium measurement (mass/volume) 8.5 mg/dL 8.5-10.1 Serum or plasma total bilirubin measurement (mass/volu me) 0.9 mg/dL 0.1-1.0 Serum or plasma alkaline phosphatase malika surement (enzymatic activity/volume) 79 U/L 40-136 Serum or plasma aspartate aminotransfera se measurement (enzymatic activity/volume) 26 U/L 5-34 Serum or plasma alanine aminotransferase measurement (enzymatic activity/volume) 20 U/L 0-55 Serum or plasma protein measurement (mass/volume) 6.0 g/dL 6.4-8.2 Serum or plasma albumin measurement (mass/volume) 3.2 g/dL 3.2-4.5 Capillary blood glucose measurement by g lucometer (mass/volume) - 11/11/16 11:01 Capillary blood glucose measurement by glucometer (mas s/volume) 344 mg/dL 70-110 Vancomycin trough - 11/11/16 15:30 Vancomycin trough 11.5 ug/mL 10.0-20.0 Capillary blood glucose measurement by g lucometer (mass/volume) - 11/11/16 16:47 Capillary blood glucose measurement by glucometer (mas s/volume) 297 mg/dL 70-110 Capillary blood glucose measurement by g lucometer (mass/volume) - 11/11/16 20:59 Capillary blood glucose measurement by glucometer (mas s/volume) 281 mg/dL 70-110 Complete blood count (CBC) with automate d white blood cell (WBC) differential - 11/12/16 06:50 Blood leukocytes automated count (number/volume) 7.1 10*3/uL 4.3-11.0 Blood erythrocytes automated count (number/volume) 3.99 10*6/uL 4.35-5.85 Venous blood hemoglobin measurement (mass/volume) 11.7 g/dL 13.3-17.7 Blood hematocrit (volume fraction) 35 % 40-54 Automated erythrocyte mean corpuscular volume 87 [ foz_us] 80-99 Automated erythrocyte mean corpuscular h emoglobin (mass per erythrocyte) 29 pg 25-34 Automated erythrocyte mean corpuscular h emoglobin concentration measurement (mass/volume) 34 g/dL 32-36 Automated erythrocyte distribution width ratio 15. 4 % 10.0- 14.5 Automated blood platelet count (count/volume) 104 10*3/uL [...] 10*3 1.0-4.0 Blood monocytes automated count (number/volume) 0. 7 10*3 0.0-1.0 Automated eosinophil count 0.1 10*3/uL 0 .0-0.3 Automated blood basophil count (count/volume) 0.0 10*3/uL 0.0-0.1 Comprehensive metabolic panel - 11/12/16 06:50 Serum or plasma sodium measurement (moles/volume) 136 mmol/L 135-145 Serum or plasma potassium measurement (moles/volume) 3.7 mmol/L 3.6-5.0 Serum or plasma chloride measurement (moles/volume) 105 mmol/L 98-107 Carbon dioxide 20 mmol/L 21-32 Serum or plasma anion gap determination (moles/volume) 11 mmol/L 5-14 Serum or plasma urea nitrogen measurement (mass/volume ) 17 mg/dL 7-18 Serum or plasma creatinine measurement (mass/volume) 1.05 mg/dL 0.60-1.30 Serum or plasma urea nitrogen/creatinine mass ratio 16 NRG Serum or plasma creatinine measurement w ith calculation of estimated glomerular filtration rate > NRG Serum or plasma glucose measurement (mass/volume) 229 mg/dL 70-105 Serum or plasma calcium measurement (mass/volume) 8.7 mg/dL 8.5-10.1 Serum or plasma total bilirubin measurement (mass/volu me) 0.7 mg/dL 0.1-1.0 Serum or plasma alkaline phosphatase malika surement (enzymatic activity/volume) 67 U/L 40-136 Serum or plasma aspartate aminotransfera se measurement (enzymatic activity/volume) 22 U/L 5-34 Serum or plasma alanine aminotransferase measurement (enzymatic activity/volume) 20 U/L 0-55 Serum or plasma protein measurement (mass/volume) 5.9 g/dL 6.4-8.2 Serum or plasma albumin measurement (mass/volume) 3.1 g/dL 3.2-4.5 Capillary blood glucose measurement by g lucometer (mass/volume) - 11/12/16 07:02 Capillary blood glucose measurement by glucometer (mas s/volume) 201 mg/dL 70-110 Capillary blood glucose measurement by g lucometer (mass/volume) - 11/12/16 10:51 Capillary blood glucose measurement by glucometer (mas s/volume) 286 mg/dL 70-110 Capillary blood glucose measurement by g lucometer (mass/volume) - 11/12/16 17:04 Capillary blood glucose measurement by glucometer (mas s/volume) 195 mg/dL 70-110 Capillary blood glucose measurement by g lucometer (mass/volume) - 11/12/16 20:48 Capillary blood glucose measurement by glucometer (mas s/volume) 159 mg/dL 70-110 Capillary blood glucose measurement by g lucometer (mass/volume) - 11/13/16 05:29 Capillary blood glucose measurement by glucometer (mas s/volume) 232 mg/dL 70-110 Complete blood count (CBC) with automate d white blood cell (WBC) differential - 11/13/16 06:18 Blood leukocytes automated count (number/volume) 5.3 10*3/uL 4.3-11.0 Blood erythrocytes automated count (number/volume) 4.06 10*6/uL 4.35-5.85 Venous blood hemoglobin measurement (mass/volume) 12.1 g/dL 13.3-17.7 Blood hematocrit (volume fraction) 36 % 40-54 Automated erythrocyte mean corpuscular volume 88 [ foz_us] 80-99 Automated erythrocyte mean corpuscular h emoglobin (mass per erythrocyte) 30 pg 25-34 Automated erythrocyte mean corpuscular h emoglobin concentration measurement (mass/volume) 34 g/dL 32-36 Automated erythrocyte distribution width ratio 15. 3 % 10.0- 14.5 Automated blood platelet count (count/volume) 134 10*3/uL [...] 10*3 1.0-4.0 Blood monocytes automated count (number/volume) 0. 4 10*3 0.0-1.0 Automated eosinophil count 0.1 10*3/uL 0 .0-0.3 Automated blood basophil count (count/volume) 0.0 10*3/uL 0.0-0.1 Comprehensive metabolic panel - 11/13/16 06:18 Serum or plasma sodium measurement (moles/volume) 139 mmol/L 135-145 Serum or plasma potassium measurement (moles/volume) 4.0 mmol/L 3.6-5.0 Serum or plasma chloride measurement (moles/volume) 103 mmol/L 98-107 Carbon dioxide 25 mmol/L 21-32 Serum or plasma anion gap determination (moles/volume) 11 mmol/L 5-14 Serum or plasma urea nitrogen measurement (mass/volume ) 15 mg/dL 7-18 Serum or plasma creatinine measurement (mass/volume) 1.10 mg/dL 0.60-1.30 Serum or plasma urea nitrogen/creatinine mass ratio 14 NRG Serum or plasma creatinine measurement w ith calculation of estimated glomerular filtration rate > NRG Serum or plasma glucose measurement (mass/volume) 224 mg/dL 70-105 Serum or plasma calcium measurement (mass/volume) 9.3 mg/dL 8.5-10.1 Serum or plasma total bilirubin measurement (mass/volu me) 0.5 mg/dL 0.1-1.0 Serum or plasma alkaline phosphatase malika surement (enzymatic activity/volume) 73 U/L 40-136 Serum or plasma aspartate aminotransfera se measurement (enzymatic activity/volume) 21 U/L 5-34 Serum or plasma alanine aminotransferase measurement (enzymatic activity/volume) 23 U/L 0-55 Serum or plasma protein measurement (mass/volume) 6.5 g/dL 6.4-8.2 Serum or plasma albumin measurement (mass/volume) 3.4 g/dL 3.2-4.5 Capillary blood glucose measurement by g lucometer (mass/volume) - 11/13/16 16:03 Capillary blood glucose measurement by glucometer (mas s/volume) 296 mg/dL 70-110 Capillary blood glucose measurement by g lucometer (mass/volume) - 11/13/16 21:20 Capillary blood glucose measurement by glucometer (mas s/volume) 313 mg/dL 70-110 Capillary blood glucose measurement by g lucometer (mass/volume) - 11/14/16 05:27 Capillary blood glucose measurement by glucometer (mas s/volume) 275 mg/dL 70-110 Capillary blood glucose measurement by g lucometer (mass/volume) - 11/14/16 11:07 Capillary blood glucose measurement by glucometer (mas s/volume) 222 mg/dL 70-110 Capillary blood glucose measurement by g lucometer (mass/volume) - 11/14/16 16:15 Capillary blood glucose measurement by glucometer (mas s/volume) 164 mg/dL 70-110 Capillary blood glucose measurement by g lucometer (mass/volume) - 11/14/16 20:19 Capillary blood glucose measurement by glucometer (mas s/volume) 201 mg/dL 70-110 Capillary blood glucose measurement by g lucometer (mass/volume) - 11/15/16 06:22 Capillary blood glucose measurement by glucometer (mas s/volume) 283 mg/dL 70-110 Capillary blood glucose measurement by g lucometer (mass/volume) - 11/15/16 11:50 Capillary blood glucose measurement by glucometer (mas s/volume) 212 mg/dL 70-110 Capillary blood glucose measurement by g lucometer (mass/volume) - 11/15/16 16:24 Capillary blood glucose measurement by glucometer (mas s/volume) 135 mg/dL 70-110 Capillary blood glucose measurement by g lucometer (mass/volume) - 11/15/16 20:42 Capillary blood glucose measurement by glucometer (mas s/volume) 218 mg/dL 70-110 Capillary blood glucose measurement by g lucometer (mass/volume) - 11/16/16 05:16 Capillary blood glucose measurement by glucometer (mas s/volume) 200 mg/dL 70-110 Capillary blood glucose measurement by g lucometer (mass/volume) - 11/16/16 11:46 Capillary blood glucose measurement by glucometer (mas s/volume) 187 mg/dL 70-110 Capillary blood glucose measurement by g lucometer (mass/volume) - 11/16/16 17:10 Capillary blood glucose measurement by glucometer (mas s/volume) 176 mg/dL 70-110 Capillary blood glucose measurement by g lucometer (mass/volume) - 11/16/16 20:39 Capillary blood glucose measurement by glucometer (mas s/volume) 194 mg/dL 70-110 Capillary blood glucose measurement by g lucometer (mass/volume) - 11/17/16 06:17 Capillary blood glucose measurement by glucometer (mas s/volume) 187 mg/dL 70-110 Capillary blood glucose measurement by g lucometer (mass/volume) - 11/17/16 11:08 Capillary blood glucose measurement by glucometer (mas s/volume) 177 mg/dL 70-110 Capillary blood glucose measurement by g lucometer (mass/volume) - 11/17/16 16:02 Capillary blood glucose measurement by glucometer (mas s/volume) 159 mg/dL 70-110 Capillary blood glucose measurement by g lucometer (mass/volume) - 11/17/16 20:42 Capillary blood glucose measurement by glucometer (mas s/volume) 104 mg/dL 70-110 Capillary blood glucose measurement by g lucometer (mass/volume) - 11/18/16 05:00 Capillary blood glucose measurement by glucometer (mas s/volume) 220 mg/dL 70-110 Capillary blood glucose measurement by g lucometer (mass/volume) - 11/18/16 11:02 Capillary blood glucose measurement by glucometer (mas s/volume) 212 mg/dL 70-110 Complete blood count (CBC) with automate d white blood cell (WBC) differential - 02/09/18 14:45 Blood leukocytes automated count (number/volume) 8.1 10*3/uL 4.3-11.0 Blood erythrocytes automated count (number/volume) 4.93 10*6/uL 4.35-5.85 Venous blood hemoglobin measurement (mass/volume) 15.4 g/dL 13.3-17.7 Blood hematocrit (volume fraction) 43 % 40-54 Automated erythrocyte mean corpuscular volume 87 [ foz_us] 80-99 Automated erythrocyte mean corpuscular h emoglobin (mass per erythrocyte) 31 pg 25-34 Automated erythrocyte mean corpuscular h emoglobin concentration measurement (mass/volume) 36 g/dL 32-36 Automated erythrocyte distribution width ratio 15. 3 % 10.0- 14.5 Automated blood platelet count (count/volume) 157 10*3/uL [...] 10*3 1.0-4.0 Blood monocytes automated count (number/volume) 0. 7 10*3 0.0-1.0 Automated eosinophil count 0.1 10*3/uL 0 .0-0.3 Automated blood basophil count (count/volume) 0.0 10*3/uL 0.0-0.1 Comprehensive metabolic panel - 02/09/18 14:45 Serum or plasma sodium measurement (moles/volume) 137 mmol/L 135-145 Serum or plasma potassium measurement (moles/volume) 4.1 mmol/L 3.6-5.0 Serum or plasma chloride measurement (moles/volume) 103 mmol/L 98-107 Carbon dioxide 20 mmol/L 21-32 Serum or plasma anion gap determination (moles/volume) 14 mmol/L 5-14 Serum or plasma urea nitrogen measurement (mass/volume ) 22 mg/dL 7-18 Serum or plasma creatinine measurement (mass/volume) 1.32 mg/dL 0.60-1.30 Serum or plasma urea nitrogen/creatinine mass ratio 17 NRG Serum or plasma creatinine measurement w ith calculation of estimated glomerular filtration rate 54 NRG Serum or plasma glucose measurement (mass/volume) 251 mg/dL 70-105 Serum or plasma calcium measurement (mass/volume) 9.9 mg/dL 8.5-10.1 Serum or plasma total bilirubin measurement (mass/volu me) 1.2 mg/dL 0.1-1.0 Serum or plasma alkaline phosphatase malika surement (enzymatic activity/volume) 77 U/L 40-136 Serum or plasma aspartate aminotransfera se measurement (enzymatic activity/volume) 28 U/L 5-34 Serum or plasma alanine aminotransferase measurement (enzymatic activity/volume) 39 U/L 0-55 Serum or plasma protein measurement (mass/volume) 7.4 g/dL 6.4-8.2 Serum or plasma albumin measurement (mass/volume) 4.3 g/dL 3.2-4.5 Magnesium - 02/09/18 14:45 Magnesium 2.3 mg/dL 1.8-2.4 Serum or plasma troponin i.cardiac measu rement (mass/volume) - 02/09/18 14:45 Serum or plasma troponin i.cardiac measurement (mass/v olume) < ng/mL <0.30 Myoglobin, serum - 02/09/18 14:45 Myoglobin, serum 82.7 ng/mL 10.0-92.0 Serum or plasma amylase measurement (enz ymatic activity/volume) - 02/09/18 14:45 Serum or plasma amylase measurement (enzymatic activit y/volume) 24 U/L 25-125 Lipase - 02/09/18 14:45 Lipase 30 U/L 8-78 PT panel in platelet poor plasma by coag ulation assay - 02/09/18 14:45 Prothrombin time (PT) in platelet poor plasma by coagu lation assay 13.4 s 12.2-14.7 INR in platelet poor plasma or blood by coagulation as say 1.0 0.8-1.4 Activated partial thromboplastin time (a PTT) in platelet poor plasma bycoagulation assay - 02/09/18 14:45 Activated partial thromboplastin time (a PTT) in platelet poor plasma bycoagulation assay 28 s 24-35 Serum or plasma thyrotropin measurement by detection limit <=0.05 miu/l (units/volume) - 02/09/18 14:45 Serum or plasma thyrotropin measurement by detection limit <=0.05 miu/l (units/volume) 1.93 u[iU]/mL 0.35-4.94 Serum or plasma acetaminophen measuremen t (mass/volume) - 02/09/18 14:45 Serum or plasma acetaminophen measurement (mass/volume ) < ug/mL 10-30 Serum or plasma ethanol measurement (mas s/volume) - 02/09/18 14:45 Serum or plasma ethanol measurement (mass/volume) < mg/dL <10 Complete urinalysis with reflex to cultu re - 02/09/18 17:40 Urine color determination YELLOW NRG Urine clarity determination CLEAR NR G Urine pH measurement by test strip 6 5-9 Specific gravity of urine by test strip 1.020 1.016-1.022 Urine protein assay by test strip, semi-quantitative 3+ NEGATIVE Urine glucose detection by automated test strip 4+ NEGATIVE Erythrocytes detection in urine sediment by light micr oscopy NEGATIVE NEGATIVE Urine ketones detection by automated test strip 3+ NEGATIVE Urine nitrite detection by test strip NEGATIVE NEGATIVE Urine total bilirubin detection by test strip NEGA TIVE NEGATIVE Urine urobilinogen measurement by automated test strip (mass/volume) NORMAL NORMAL Urine leukocyte esterase detection by dipstick 1+ NEGATIVE Automated urine sediment erythrocyte cou nt by microscopy (number/high power field) NONE NRG Automated urine sediment leukocyte count by microscopy (number/high power field) RARE NRG Bacteria detection in urine sediment by light microsco py FEW NRG Squamous epithelial cells detection in u rine sediment by light microscopy NONE NRG Crystals detection in urine sediment by light microsco py NONE NRG Casts detection in urine sediment by light microscopy NONE NRG Mucus detection in urine sediment by light microscopy NEGATIVE NRG Complete urinalysis with reflex to culture NO NRG Urine drug screening test - 02/09/18 17: 40 Urine phencyclidine detection by screening method NEGATIVE NEGATIVE Urine benzodiazepines detection by screening method NEGATIVE NEGATIVE Urine cocaine detection NEGATIVE NEGATI VE Urine amphetamines detection by screening method N EGATIVE NEGATIVE Urine methamphetamine detection by screening method NEGATIVE NEGATIVE Urine cannabinoids detection by screening method N EGATIVE NEGATIVE Urine opiates detection by screening method NEGATI VE NEGATIVE Urine barbiturates detection NEGATIVE N EGATIVE Screening urine tricyclic antidepressants detection POSITIVE NEGATIVE Urine methadone detection by screening method NEGA TIVE NEGATIVE Urine oxycodone detection NEGATIVE NEGA TIVE Urine propoxyphene detection NEGATIVE N EGATIVE Complete blood count (CBC) with automate d white blood cell (WBC) differential - 04/05/18 15:55 Blood leukocytes automated count (number/volume) 12.3 10*3/uL 4.3-11.0 Blood erythrocytes automated count (number/volume) 4.35 10*6/uL 4.35-5.85 Venous blood hemoglobin measurement (mass/volume) 13.7 g/dL 13.3-17.7 Blood hematocrit (volume fraction) 38 % 40-54 Automated erythrocyte mean corpuscular volume 87 [ foz_us] 80-99 Automated erythrocyte mean corpuscular h emoglobin (mass per erythrocyte) 32 pg 25-34 Automated erythrocyte mean corpuscular h emoglobin concentration measurement (mass/volume) 36 g/dL 32-36 Automated erythrocyte distribution width ratio 15. 2 % 10.0- 14.5 Automated blood platelet count (count/volume) 151 10*3/uL 130-400 Automated blood platelet mean volume measurement 10.6 [foz_us] 7.4-10.4 Automated blood neutrophils/100 leukocytes 82 % 42-75 Automated blood lymphocytes/100 leukocytes 9 % 12-44 Blood monocytes/100 leukocytes 9 % 0-12 Automated blood eosinophils/100 leukocytes 0 % 0-10 Automated blood basophils/100 leukocytes 0 % 0-10 Blood neutrophils automated count (number/volume) 10.2 10*3 1.8-7.8 Blood lymphocytes automated count (number/volume) 1.1 10*3 1.0-4.0 Blood monocytes automated count (number/volume) 1. 1 10*3 0.0-1.0 Automated eosinophil count 0.1 10*3/uL 0 .0-0.3 Automated blood basophil count (count/volume) 0.0 10*3/uL 0.0-0.1 PT panel in platelet poor plasma by coag ulation assay - 09/04/18 15:55 Prothrombin time (PT) in platelet poor plasma by coagu lation assay 14.1 s 12.2-14.7 INR in platelet poor plasma or blood by coagulation as say 1.1 0.8-1.4 Activated partial thromboplastin time (a PTT) in platelet poor plasma bycoagulation assay - 04/05/18 15:55 Activated partial thromboplastin time (a PTT) in platelet poor plasma bycoagulation assay 27 s 24-35 Blood lactic acid measurement (moles/vol ume) - 04/05/18 15:55 Blood lactic acid measurement (moles/volume) 2.34 mmol/L 0.50-2.00 Comprehensive metabolic panel - 04/05/18 15:55 Serum or plasma sodium measurement (moles/volume) 132 mmol/L 135-145 Serum or plasma potassium measurement (moles/volume) 4.1 mmol/L 3.6-5.0 Serum or plasma chloride measurement (moles/volume) 100 mmol/L 98-107 Carbon dioxide 23 mmol/L 21-32 Serum or plasma anion gap determination (moles/volume) 9 mmol/L 5-14 Serum or plasma urea nitrogen measurement (mass/volume ) 29 mg/dL 7-18 Serum or plasma creatinine measurement (mass/volume) 1.18 mg/dL 0.60-1.30 Serum or plasma urea nitrogen/creatinine mass ratio 25 NRG Serum or plasma creatinine measurement w ith calculation of estimated glomerular filtration rate > NRG Serum or plasma glucose measurement (mass/volume) 270 mg/dL 70-105 Serum or plasma calcium measurement (mass/volume) 9.5 mg/dL 8.5-10.1 Serum or plasma total bilirubin measurement (mass/volu me) 1.2 mg/dL 0.1-1.0 Serum or plasma alkaline phosphatase malika surement (enzymatic activity/volume) 76 U/L 40-136 Serum or plasma aspartate aminotransfera se measurement (enzymatic activity/volume) 15 U/L 5-34 Serum or plasma alanine aminotransferase measurement (enzymatic activity/volume) 28 U/L 0-55 Serum or plasma protein measurement (mass/volume) 7.0 g/dL 6.4-8.2 Serum or plasma albumin measurement (mass/volume) 4.2 g/dL 3.2-4.5 CALCIUM CORRECTED 9.3 mg/dL 8.5-10.1 Lipase - 04/05/18 15:55 Lipase 35 U/L 8-78 Serum or plasma C reactive protein measu rement (mass/volume) - 04/05/18 15:55 Serum or plasma C reactive protein measurement (mass/v olume) 4.06 mg/dL 0.00-0.50 Bacterial blood culture - 04/05/18 15:55 Bacterial blood culture NG NRG Bacterial blood culture - 04/05/18 16:09 Bacterial blood culture NG NRG Serum or plasma lactate measurement (mol es/volume) - 04/05/18 17:55 Serum or plasma lactate measurement (moles/volume) 1.68 mmol/L 0.50-2.00 Complete urinalysis with reflex to cultu re - 04/05/18 18:58 Urine color determination YELLOW NRG Urine clarity determination CLEAR NR G Urine pH measurement by test strip 5 5-9 Specific gravity of urine by test strip 1.020 1.016-1.022 Urine protein assay by test strip, semi-quantitative 3+ NEGATIVE Urine glucose detection by automated test strip 4+ NEGATIVE Erythrocytes detection in urine sediment by light micr oscopy NEGATIVE NEGATIVE Urine ketones detection by automated test strip 1+ NEGATIVE Urine nitrite detection by test strip NEGATIVE NEGATIVE Urine total bilirubin detection by test strip NEGA TIVE NEGATIVE Urine urobilinogen measurement by automated test strip (mass/volume) NORMAL NORMAL Urine leukocyte esterase detection by dipstick 1+ NEGATIVE Automated urine sediment erythrocyte cou nt by microscopy (number/high power field) NONE NRG Automated urine sediment leukocyte count by microscopy (number/high power field) [HPF] NRG Bacteria detection in urine sediment by light microsco py NONE NRG Squamous epithelial cells detection in u rine sediment by light microscopy 0-2 NRG Crystals detection in urine sediment by light microsco py PRESENT NRG Casts detection in urine sediment by light microscopy NONE NRG Mucus detection in urine sediment by light microscopy NEGATIVE NRG Complete urinalysis with reflex to culture NO NRG Amorphous sediment detection in urine sediment by ligh t microscopy MOD FRANCIS URATES NRG Bacterial urine culture - 04/05/18 18:58 Bacterial urine culture NG NRG Capillary blood glucose measurement by g lucometer (mass/volume) - 04/06/18 05:26 Capillary blood glucose measurement by glucometer (mas s/volume) 280 mg/dL 70-110 Complete blood count (CBC) with automate d white blood cell (WBC) differential - 04/06/18 07:45 Blood leukocytes automated count (number/volume) 6.6 10*3/uL 4.3-11.0 Blood erythrocytes automated count (number/volume) 4.04 10*6/uL 4.35-5.85 Venous blood hemoglobin measurement (mass/volume) 12.6 g/dL 13.3-17.7 Blood hematocrit (volume fraction) 36 % 40-54 Automated erythrocyte mean corpuscular volume 88 [ foz_us] 80-99 Automated erythrocyte mean corpuscular h emoglobin (mass per erythrocyte) 31 pg 25-34 Automated erythrocyte mean corpuscular h emoglobin concentration measurement (mass/volume) 35 g/dL 32-36 Automated erythrocyte distribution width ratio 15. 3 % 10.0- 14.5 Automated blood platelet count (count/volume) 126 10*3/uL 130-400 Automated blood platelet mean volume measurement 10.0 [foz_us] 7.4-10.4 Automated blood neutrophils/100 leukocytes 72 % 42-75 Automated blood lymphocytes/100 leukocytes 16 % 12-44 Blood monocytes/100 leukocytes 11 % 0-12 Automated blood eosinophils/100 leukocytes 1 % 0-10 Automated blood basophils/100 leukocytes 0 % 0-10 Blood neutrophils automated count (number/volume) 4.8 10*3 1.8-7.8 Blood lymphocytes automated count (number/volume) 1.1 10*3 1.0-4.0 Blood monocytes automated count (number/volume) 0. 7 10*3 0.0-1.0 Automated eosinophil count 0.1 10*3/uL 0 .0-0.3 Automated blood basophil count (count/volume) 0.0 10*3/uL 0.0-0.1 Comprehensive metabolic panel - 04/06/18 07:45 Serum or plasma sodium measurement (moles/volume) 134 mmol/L 135-145 Serum or plasma potassium measurement (moles/volume) 4.0 mmol/L 3.6-5.0 Serum or plasma chloride measurement (moles/volume) 103 mmol/L 98-107 Carbon dioxide 21 mmol/L 21-32 Serum or plasma anion gap determination (moles/volume) 10 mmol/L 5-14 Serum or plasma urea nitrogen measurement (mass/volume ) 26 mg/dL 7-18 Serum or plasma creatinine measurement (mass/volume) 1.26 mg/dL 0.60-1.30 Serum or plasma urea nitrogen/creatinine mass ratio 21 NRG Serum or plasma creatinine measurement w ith calculation of estimated glomerular filtration rate 57 NRG Serum or plasma glucose measurement (mass/volume) 276 mg/dL 70-105 Serum or plasma calcium measurement (mass/volume) 8.9 mg/dL 8.5-10.1 Serum or plasma total bilirubin measurement (mass/volu me) 1.0 mg/dL 0.1-1.0 Serum or plasma alkaline phosphatase malika surement (enzymatic activity/volume) 68 U/L 40-136 Serum or plasma aspartate aminotransfera se measurement (enzymatic activity/volume) 14 U/L 5-34 Serum or plasma alanine aminotransferase measurement (enzymatic activity/volume) 24 U/L 0-55 Serum or plasma protein measurement (mass/volume) 6.4 g/dL 6.4-8.2 Serum or plasma albumin measurement (mass/volume) 3.7 g/dL 3.2-4.5 CALCIUM CORRECTED 9.1 mg/dL 8.5-10.1 Capillary blood glucose measurement by g lucometer (mass/volume) - 04/06/18 11:06 Capillary blood glucose measurement by glucometer (mas s/volume) 354 mg/dL 70-110 Capillary blood glucose measurement by g lucometer (mass/volume) - 04/06/18 14:40 Capillary blood glucose measurement by glucometer (mas s/volume) 373 mg/dL 70-110 Capillary blood glucose measurement by g lucometer (mass/volume) - 04/06/18 19:40 Capillary blood glucose measurement by glucometer (mas s/volume) 313 mg/dL 70-110 Capillary blood glucose measurement by g lucometer (mass/volume) - 04/07/18 05:27 Capillary blood glucose measurement by glucometer (mas s/volume) 287 mg/dL 70-110 Complete blood count (CBC) with automate d white blood cell (WBC) differential - 04/07/18 05:29 Blood leukocytes automated count (number/volume) 6.4 10*3/uL 4.3-11.0 Blood erythrocytes automated count (number/volume) 3.89 10*6/uL 4.35-5.85 Venous blood hemoglobin measurement (mass/volume) 12.4 g/dL 13.3-17.7 Blood hematocrit (volume fraction) 35 % 40-54 Automated erythrocyte mean corpuscular volume 89 [ foz_us] 80-99 Automated erythrocyte mean corpuscular h emoglobin (mass per erythrocyte) 32 pg 25-34 Automated erythrocyte mean corpuscular h emoglobin concentration measurement (mass/volume) 36 g/dL 32-36 Automated erythrocyte distribution width ratio 15. 4 % 10.0- 14.5 Automated blood platelet count (count/volume) 135 10*3/uL 130-400 Automated blood platelet mean volume measurement 10.7 [foz_us] 7.4-10.4 Automated blood neutrophils/100 leukocytes 62 % 42-75 Automated blood lymphocytes/100 leukocytes 25 % 12-44 Blood monocytes/100 leukocytes 12 % 0-12 Automated blood eosinophils/100 leukocytes 2 % 0-10 Automated blood basophils/100 leukocytes 0 % 0-10 Blood neutrophils automated count (number/volume) 4.0 10*3 1.8-7.8 Blood lymphocytes automated count (number/volume) 1.6 10*3 1.0-4.0 Blood monocytes automated count (number/volume) 0. 8 10*3 0.0-1.0 Automated eosinophil count 0.1 10*3/uL 0 .0-0.3 Automated blood basophil count (count/volume) 0.0 10*3/uL 0.0-0.1 Whole blood basic metabolic panel - 01/17 05:29 Serum or plasma sodium measurement (moles/volume) 135 mmol/L 135-145 Serum or plasma potassium measurement (moles/volume) 4.4 mmol/L 3.6-5.0 Serum or plasma chloride measurement (moles/volume) 103 mmol/L 98-107 Carbon dioxide 21 mmol/L 21-32 Serum or plasma anion gap determination (moles/volume) 11 mmol/L 5-14 Serum or plasma urea nitrogen measurement (mass/volume ) 26 mg/dL 7-18 Serum or plasma creatinine measurement (mass/volume) 1.33 mg/dL 0.60-1.30 Serum or plasma urea nitrogen/creatinine mass ratio 20 NRG Serum or plasma creatinine measurement w ith calculation of estimated glomerular filtration rate 54 NRG Serum or plasma glucose measurement (mass/volume) 279 mg/dL 70-105 Serum or plasma calcium measurement (mass/volume) 9.2 mg/dL 8.5-10.1 Capillary blood glucose measurement by g lucometer (mass/volume) - 04/07/18 09:42 Capillary blood glucose measurement by glucometer (mas s/volume) 355 mg/dL 70-110 Capillary blood glucose measurement by g lucometer (mass/volume) - 04/07/18 14:30 Capillary blood glucose measurement by glucometer (mas s/volume) 277 mg/dL 70-110 Capillary blood glucose measurement by g lucometer (mass/volume) - 04/07/18 20:18 Capillary blood glucose measurement by glucometer (mas s/volume) 336 mg/dL 70-110 Capillary blood glucose measurement by g lucometer (mass/volume) - 04/08/18 05:19 Capillary blood glucose measurement by glucometer (mas s/volume) 269 mg/dL 70-110 Capillary blood glucose measurement by g lucometer (mass/volume) - 04/08/18 09:48 Capillary blood glucose measurement by glucometer (mas s/volume) 336 mg/dL 70-110 Capillary blood glucose measurement by g lucometer (mass/volume) - 04/08/18 14:20 Capillary blood glucose measurement by glucometer (mas s/volume) 258 mg/dL 70-110 Capillary blood glucose measurement by g lucometer (mass/volume) - 04/08/18 20:23 Capillary blood glucose measurement by glucometer (mas s/volume) 248 mg/dL 70-110 Capillary blood glucose measurement by g lucometer (mass/volume) - 04/09/18 05:26 Capillary blood glucose measurement by glucometer (mas s/volume) 285 mg/dL 70-110 Capillary blood glucose measurement by g lucometer (mass/volume) - 04/09/18 11:19 Capillary blood glucose measurement by glucometer (mas s/volume) 305 mg/dL 70-110 Capillary blood glucose measurement by g lucometer (mass/volume) - 04/09/18 14:26 Capillary blood glucose measurement by glucometer (mas s/volume) 344 mg/dL 70-110 Capillary blood glucose measurement by g lucometer (mass/volume) - 04/09/18 20:18 Capillary blood glucose measurement by glucometer (mas s/volume) 248 mg/dL 70-110 Capillary blood glucose measurement by g lucometer (mass/volume) - 04/10/18 06:22 Capillary blood glucose measurement by glucometer (mas s/volume) 185 mg/dL 70-110 Capillary blood glucose measurement by g lucometer (mass/volume) - 04/10/18 10:10 Capillary blood glucose measurement by glucometer (mas s/volume) 270 mg/dL 70-110 Capillary blood glucose measurement by g lucometer (mass/volume) - 04/10/18 15:25 Capillary blood glucose measurement by glucometer (mas s/volume) 303 mg/dL 70-110 Capillary blood glucose measurement by g lucometer (mass/volume) - 04/10/18 20:43 Capillary blood glucose measurement by glucometer (mas s/volume) 264 mg/dL 70-110 Capillary blood glucose measurement by g lucometer (mass/volume) - 04/11/18 06:14 Capillary blood glucose measurement by glucometer (mas s/volume) 225 mg/dL 70-110 Capillary blood glucose measurement by g lucometer (mass/volume) - 04/11/18 16:09 Capillary blood glucose measurement by glucometer (mas s/volume) 173 mg/dL 70-110 Capillary blood glucose measurement by g lucometer (mass/volume) - 04/11/18 20:46 Capillary blood glucose measurement by glucometer (mas s/volume) 248 mg/dL 70-110 Capillary blood glucose measurement by g lucometer (mass/volume) - 04/12/18 05:30 Capillary blood glucose measurement by glucometer (mas s/volume) 218 mg/dL 70-110 Capillary blood glucose measurement by g lucometer (mass/volume) - 04/12/18 09:44 Capillary blood glucose measurement by glucometer (mas s/volume) 274 mg/dL 70-110 Capillary blood glucose measurement by g lucometer (mass/volume) - 04/12/18 15:10 Capillary blood glucose measurement by glucometer (mas s/volume) 267 mg/dL 70-110 Capillary blood glucose measurement by g lucometer (mass/volume) - 04/12/18 20:33 Capillary blood glucose measurement by glucometer (mas s/volume) 232 mg/dL 70-110 Capillary blood glucose measurement by g lucometer (mass/volume) - 04/13/18 05:29 Capillary blood glucose measurement by glucometer (mas s/volume) 181 mg/dL 70-110 Capillary blood glucose measurement by g lucometer (mass/volume) - 04/13/18 09:51 Capillary blood glucose measurement by glucometer (mas s/volume) 214 mg/dL 70-110 Capillary blood glucose measurement by g lucometer (mass/volume) - 04/13/18 16:32 Capillary blood glucose measurement by glucometer (mas s/volume) 206 mg/dL 70-110 Capillary blood glucose measurement by g lucometer (mass/volume) - 04/13/18 20:30 Capillary blood glucose measurement by glucometer (mas s/volume) 236 mg/dL 70-110 Capillary blood glucose measurement by g lucometer (mass/volume) - 04/14/18 06:38 Capillary blood glucose measurement by glucometer (mas s/volume) 209 mg/dL 70-110 Capillary blood glucose measurement by g lucometer (mass/volume) - 04/14/18 10:09 Capillary blood glucose measurement by glucometer (mas s/volume) 250 mg/dL 70-110 Capillary blood glucose measurement by g lucometer (mass/volume) - 04/14/18 14:26 Capillary blood glucose measurement by glucometer (mas s/volume) 238 mg/dL 70-110 Capillary blood glucose measurement by g lucometer (mass/volume) - 04/14/18 21:41 Capillary blood glucose measurement by glucometer (mas s/volume) 264 mg/dL 70-110 Capillary blood glucose measurement by g lucometer (mass/volume) - 04/15/18 06:21 Capillary blood glucose measurement by glucometer (mas s/volume) 179 mg/dL 70-110 Complete blood count (CBC) with automate d white blood cell (WBC) differential - 11/07/18 04:05 Blood leukocytes automated count (number/volume) 9.5 10*3/uL 4.3-11.0 Blood erythrocytes automated count (number/volume) 4.66 10*6/uL 4.35-5.85 Venous blood hemoglobin measurement (mass/volume) 13.8 g/dL 13.3-17.7 Blood hematocrit (volume fraction) 39 % 40-54 Automated erythrocyte mean corpuscular volume 83 [ foz_us] 80-99 Automated erythrocyte mean corpuscular h emoglobin (mass per erythrocyte) 30 pg 25-34 Automated erythrocyte mean corpuscular h emoglobin concentration measurement (mass/volume) 36 g/dL 32-36 Automated erythrocyte distribution width ratio 14. 8 % 10.0- 14.5 Automated blood platelet count (count/volume) 171 10*3/uL 130-400 Automated blood platelet mean volume measurement 10.1 [foz_us] 7.4-10.4 Automated blood neutrophils/100 leukocytes 78 % 42-75 Automated blood lymphocytes/100 leukocytes 14 % 12-44 Blood monocytes/100 leukocytes 8 % 0-12 Automated blood eosinophils/100 leukocytes 1 % 0-10 Automated blood basophils/100 leukocytes 0 % 0-10 Blood neutrophils automated count (number/volume) 7.4 10*3 1.8-7.8 Blood lymphocytes automated count (number/volume) 1.3 10*3 1.0-4.0 Blood monocytes automated count (number/volume) 0. 7 10*3 0.0-1.0 Automated eosinophil count 0.1 10*3/uL 0 .0-0.3 Automated blood basophil count (count/volume) 0.0 10*3/uL 0.0-0.1 PT panel in platelet poor plasma by coag ulation assay - 11/07/18 04:05 Prothrombin time (PT) in platelet poor plasma by coagu lation assay 13.0 s 12.2-14.7 INR in platelet poor plasma or blood by coagulation as say 1.0 0.8-1.4 Activated partial thromboplastin time (a PTT) in platelet poor plasma bycoagulation assay - 11/07/18 04:05 Activated partial thromboplastin time (a PTT) in platelet poor plasma bycoagulation assay 30 s 24-35 Blood lactic acid measurement (moles/vol ume) - 11/07/18 04:05 Blood lactic acid measurement (moles/volume) 1.45 mmol/L 0.50-2.00 Comprehensive metabolic panel - 11/07/18 04:05 Serum or plasma sodium measurement (moles/volume) 131 mmol/L 135-145 Serum or plasma potassium measurement (moles/volume) 4.4 mmol/L 3.6-5.0 Serum or plasma chloride measurement (moles/volume) 96 mmol/L 98-107 Carbon dioxide 17 mmol/L 21-32 Serum or plasma anion gap determination (moles/volume) 18 mmol/L 5-14 Serum or plasma urea nitrogen measurement (mass/volume ) 18 mg/dL 7-18 Serum or plasma creatinine measurement (mass/volume) 1.60 mg/dL 0.60-1.30 Serum or plasma urea nitrogen/creatinine mass ratio 11 NRG Serum or plasma creatinine measurement w ith calculation of estimated glomerular filtration rate 43 NRG Serum or plasma glucose measurement (mass/volume) 466 mg/dL 70-105 Serum or plasma calcium measurement (mass/volume) 9.8 mg/dL 8.5-10.1 Serum or plasma total bilirubin measurement (mass/volu me) 1.0 mg/dL 0.1-1.0 Serum or plasma alkaline phosphatase malika surement (enzymatic activity/volume) 106 U/L 40-136 Serum or plasma aspartate aminotransfera se measurement (enzymatic activity/volume) 20 U/L 5-34 Serum or plasma alanine aminotransferase measurement (enzymatic activity/volume) 26 U/L 0-55 Serum or plasma protein measurement (mass/volume) 7.4 g/dL 6.4-8.2 Serum or plasma albumin measurement (mass/volume) 3.8 g/dL 3.2-4.5 CALCIUM CORRECTED 10.0 mg/dL 8.5-10.1 Magnesium - 11/07/18 04:05 Magnesium 2.3 mg/dL 1.8-2.4 Serum or plasma creatine kinase measurem ent (enzymatic activity/volume) - 11/07/18 04:05 Serum or plasma creatine kinase measurem ent (enzymatic activity/volume) 56 U/L 30-200 Serum or plasma creatine kinase MB measu rement (enzymatic activity/volume) - 11/07/18 04:05 Serum or plasma creatine kinase MB measu rement (enzymatic activity/volume) 1.6 ng/mL <6.6 Serum or plasma troponin i.cardiac measu rement (mass/volume) - 11/07/18 04:05 Serum or plasma troponin i.cardiac measurement (mass/v olume) < ng/mL <0.028 Myoglobin, serum - 11/07/18 04:05 Myoglobin, serum 89.7 ng/mL 10.0-92.0 Serum or plasma amylase measurement (enz ymatic activity/volume) - 11/07/18 04:05 Serum or plasma amylase measurement (enzymatic activit y/volume) 17 U/L 25-125 Lipase - 11/07/18 04:05 Lipase 35 U/L 8-78 Serum or plasma lithium measurement (mol es/volume) - 11/07/18 04:05 BNP level 80.1 pg/mL <100.0 Bacterial blood culture - 11/07/18 04:05 Bacterial blood culture NG NRG Capillary blood glucose measurement by g lucometer (mass/volume) - 11/07/18 04:12 Capillary blood glucose measurement by glucometer (mas s/volume) 428 mg/dL 70-110 Arterial blood gas measurement - 9 04:22 Blood pCO2 34 mm[Hg] 35-45 Blood pO2 79 mm[Hg] 79-93 Arterial blood bicarbonate measurement (moles/volume) 20 mmol/L 23-27 Arterial blood base excess by calculation -4.2 mmo l/L -2.5-2.5 Arterial blood oxygen saturation measurement 97 % 94-100 * Inhaled oxygen flow rate 2L NRG Arterial blood pH measurement with patient temperature correction 7.39 7.37-7.43 Arterial blood carbon dioxide, total measurement (mole s/volume) 21.0 mmol/L 21.0-31.0 Body site RIGHT RADIAL NRG Assessment of wrist artery patency prior to arterial p uncture YES-POS NRG Setting of ventilation mode NO NR G Measurement of body temperature 98.2 NRG Bacterial blood culture - 11/07/18 04:30 Bacterial blood culture NG NRG Complete urinalysis with reflex to cultu re - 11/07/18 05:25 Urine color determination YELLOW NRG Urine clarity determination CLEAR NR G Urine pH measurement by test strip 5 5-9 Specific gravity of urine by test strip 1.015 1.016-1.022 Urine protein assay by test strip, semi-quantitative 3+ NEGATIVE Urine glucose detection by automated test strip 4+ NEGATIVE Erythrocytes detection in urine sediment by light micr oscopy 2+ NEGATIVE Urine ketones detection by automated test strip 4+ NEGATIVE Urine nitrite detection by test strip NEGATIVE NEGATIVE Urine total bilirubin detection by test strip NEGA TIVE NEGATIVE Urine urobilinogen measurement by automated test strip (mass/volume) NORMAL NORMAL Urine leukocyte esterase detection by dipstick NEG ATIVE NEGATIVE Automated urine sediment erythrocyte cou nt by microscopy (number/high power field) [HPF] NRG Automated urine sediment leukocyte count by microscopy (number/high power field) NONE NRG Bacteria detection in urine sediment by light microsco py NEGATIVE NRG Squamous epithelial cells detection in u rine sediment by light microscopy 2-5 NRG Crystals detection in urine sediment by light microsco py NONE NRG Casts detection in urine sediment by light microscopy NONE NRG Mucus detection in urine sediment by light microscopy NEGATIVE NRG Complete urinalysis with reflex to culture NO NRG Capillary blood glucose measurement by g lucometer (mass/volume) - 11/07/18 05:42 Capillary blood glucose measurement by glucometer (mas s/volume) 323 mg/dL 70-110 Gram stain microscopy - 12/16/18 15:20 Gram stain microscopy Many Gram positive cocci NRG Bacteria identification in wound by cult ure - 12/16/18 15:20 Bacteria identification in wound by culture SEE CO MMEN NRG FREE TEXT EXTERNAL METHICILLIN-RESISTANT STAPH AUR EUS NRG QUANTITY OF GROWTH . NRG FREE TEXT ENTRY 2 SUSCEPTIBILITY REPORTED 12/18/18 11:05 NRG FREE TEXT ENTRY 3 ID REPORT RECIEVED 12/17/18 18:05 NRG RML Sensitivity Panel - 12/16/18 15:20 Oxacillin susceptibility test by minimum inhibitory co ncentration > NRG Clindamycin susceptibility test by minimum inhibitory concentration > NRG Erythromycin susceptibility test by minimum inhibitory concentration > NRG Trimethoprim/sulfamethoxazole susceptibi lity test by minimum inhibitoryconcentration <= NRG Vancomycin susceptibility test by minimum inhibitory c oncentration 1 NRG Levofloxacin susceptibility test by minimum inhibitory concentration > NRG Rifampin susceptibility test by minimum inhibitory con centration <= NRG Cefazolin susceptibility test by minimum inhibitory co ncentration > NRG Linezolid susceptibility test by minimum inhibitory co ncentration 2 NRG Penicillin G susceptibility test by minimum inhibitory concentration > NRG Moxifloxacin susceptibility test by minimum inhibitory concentration > NRG Minocycline susc KEYSHAWN <= NRG Complete blood count (CBC) with automate d white blood cell (WBC) differential - 12/16/18 15:50 Blood leukocytes automated count (number/volume) 9.7 10*3/uL 4.3-11.0 Blood erythrocytes automated count (number/volume) 3.03 10*6/uL 4.35-5.85 Venous blood hemoglobin measurement (mass/volume) 9.1 g/dL 13.3-17.7 Blood hematocrit (volume fraction) 26 % 40-54 Automated erythrocyte mean corpuscular volume 86 [ foz_us] 80-99 Automated erythrocyte mean corpuscular h emoglobin (mass per erythrocyte) 30 pg 25-34 Automated erythrocyte mean corpuscular h emoglobin concentration measurement (mass/volume) 35 g/dL 32-36 Automated erythrocyte distribution width ratio 16. 0 % 10.0- 14.5 Automated blood platelet count (count/volume) 151 10*3/uL 130-400 Automated blood platelet mean volume measurement 10.4 [foz_us] 7.4-10.4 Automated blood neutrophils/100 leukocytes 79 % 42-75 Automated blood lymphocytes/100 leukocytes 10 % 12-44 Blood monocytes/100 leukocytes 10 % 0-12 Automated blood eosinophils/100 leukocytes 1 % 0-10 Automated blood basophils/100 leukocytes 0 % 0-10 Blood neutrophils automated count (number/volume) 7.7 10*3 1.8-7.8 Blood lymphocytes automated count (number/volume) 1.0 10*3 1.0-4.0 Blood monocytes automated count (number/volume) 0. 9 10*3 0.0-1.0 Automated eosinophil count 0.1 10*3/uL 0 .0-0.3 Automated blood basophil count (count/volume) 0.0 10*3/uL 0.0-0.1 Blood lactic acid measurement (moles/vol ume) - 12/16/18 15:50 Blood lactic acid measurement (moles/volume) 0.65 mmol/L 0.50-2.00 Comprehensive metabolic panel - 12/16/18 15:50 Serum or plasma sodium measurement (moles/volume) 136 mmol/L 135-145 Serum or plasma potassium measurement (moles/volume) 4.3 mmol/L 3.6-5.0 Serum or plasma chloride measurement (moles/volume) 98 mmol/L 98-107 Carbon dioxide 24 mmol/L 21-32 Serum or plasma anion gap determination (moles/volume) 14 mmol/L 5-14 Serum or plasma urea nitrogen measurement (mass/volume ) 44 mg/dL 7-18 Serum or plasma creatinine measurement (mass/volume) 2.13 mg/dL 0.60-1.30 Serum or plasma urea nitrogen/creatinine mass ratio 21 NRG Serum or plasma creatinine measurement w ith calculation of estimated glomerular filtration rate 31 NRG Serum or plasma glucose measurement (mass/volume) 88 mg/dL 70-105 Serum or plasma calcium measurement (mass/volume) 10.1 mg/dL 8.5-10.1 Serum or plasma total bilirubin measurement (mass/volu me) 0.4 mg/dL 0.1-1.0 Serum or plasma alkaline phosphatase malika surement (enzymatic activity/volume) 69 U/L 40-136 Serum or plasma aspartate aminotransfera se measurement (enzymatic activity/volume) 19 U/L 5-34 Serum or plasma alanine aminotransferase measurement (enzymatic activity/volume) 21 U/L 0-55 Serum or plasma protein measurement (mass/volume) 7.1 g/dL 6.4-8.2 Serum or plasma albumin measurement (mass/volume) 3.8 g/dL 3.2-4.5 CALCIUM CORRECTED 10.3 mg/dL 8.5-10.1 PT panel in platelet poor plasma by coag ulation assay - 12/16/18 15:50 Prothrombin time (PT) in platelet poor plasma by coagu lation assay 16.4 s 12.2-14.7 INR in platelet poor plasma or blood by coagulation as say 1.3 0.8-1.4 Bacterial blood culture - 12/16/18 15:50 Bacterial blood culture NG NRG Bacterial blood culture - 12/16/18 16:09 Bacterial blood culture NG NRG Complete urinalysis with reflex to cultu re - 12/16/18 16:30 Urine color determination YELLOW NRG Urine clarity determination CLEAR NR G Urine pH measurement by test strip 5 5-9 Specific gravity of urine by test strip 1.010 1.016-1.022 Urine protein assay by test strip, semi-quantitative NEGATIVE NEGATIVE Urine glucose detection by automated test strip NE GATIVE NEGATIVE Erythrocytes detection in urine sediment by light micr oscopy NEGATIVE NEGATIVE Urine ketones detection by automated test strip NE GATIVE NEGATIVE Urine nitrite detection by test strip NEGATIVE NEGATIVE Urine total bilirubin detection by test strip NEGA TIVE NEGATIVE Urine urobilinogen measurement by automated test strip (mass/volume) NORMAL NORMAL Urine leukocyte esterase detection by dipstick NEG ATIVE NEGATIVE Automated urine sediment erythrocyte cou nt by microscopy (number/high power field) NONE NRG Automated urine sediment leukocyte count by microscopy (number/high power field) NONE NRG Bacteria detection in urine sediment by light microsco py NEGATIVE NRG Squamous epithelial cells detection in u rine sediment by light microscopy 0-2 NRG Crystals detection in urine sediment by light microsco py NONE NRG Casts detection in urine sediment by light microscopy NONE NRG Mucus detection in urine sediment by light microscopy NEGATIVE NRG Complete urinalysis with reflex to culture NO NRG Capillary blood glucose measurement by g lucometer (mass/volume) - 12/16/18 20:57 Capillary blood glucose measurement by glucometer (mas s/volume) 251 mg/dL 70-110 Complete blood count (CBC) with automate d white blood cell (WBC) differential - 12/17/18 05:30 Blood leukocytes automated count (number/volume) 7.8 10*3/uL 4.3-11.0 Blood erythrocytes automated count (number/volume) 2.97 10*6/uL 4.35-5.85 Venous blood hemoglobin measurement (mass/volume) 8.7 g/dL 13.3-17.7 Blood hematocrit (volume fraction) 26 % 40-54 Automated erythrocyte mean corpuscular volume 87 [ foz_us] 80-99 Automated erythrocyte mean corpuscular h emoglobin (mass per erythrocyte) 29 pg 25-34 Automated erythrocyte mean corpuscular h emoglobin concentration measurement (mass/volume) 34 g/dL 32-36 Automated erythrocyte distribution width ratio 16. 0 % 10.0- 14.5 Automated blood platelet count (count/volume) 153 10*3/uL 130-400 Automated blood platelet mean volume measurement 10.6 [foz_us] 7.4-10.4 Automated blood neutrophils/100 leukocytes 79 % 42-75 Automated blood lymphocytes/100 leukocytes 9 % 12-44 Blood monocytes/100 leukocytes 10 % 0-12 Automated blood eosinophils/100 leukocytes 2 % 0-10 Automated blood basophils/100 leukocytes 0 % 0-10 Blood neutrophils automated count (number/volume) 6.2 10*3 1.8-7.8 Blood lymphocytes automated count (number/volume) 0.7 10*3 1.0-4.0 Blood monocytes automated count (number/volume) 0. 8 10*3 0.0-1.0 Automated eosinophil count 0.1 10*3/uL 0 .0-0.3 Automated blood basophil count (count/volume) 0.0 10*3/uL 0.0-0.1 Comprehensive metabolic panel - 12/17/18 05:30 Serum or plasma sodium measurement (moles/volume) 135 mmol/L 135-145 Serum or plasma potassium measurement (moles/volume) 4.2 mmol/L 3.6-5.0 Serum or plasma chloride measurement (moles/volume) 101 mmol/L 98-107 Carbon dioxide 21 mmol/L 21-32 Serum or plasma anion gap determination (moles/volume) 13 mmol/L 5-14 Serum or plasma urea nitrogen measurement (mass/volume ) 40 mg/dL 7-18 Serum or plasma creatinine measurement (mass/volume) 1.97 mg/dL 0.60-1.30 Serum or plasma urea nitrogen/creatinine mass ratio 20 NRG Serum or plasma creatinine measurement w ith calculation of estimated glomerular filtration rate 34 NRG Serum or plasma glucose measurement (mass/volume) 153 mg/dL 70-105 Serum or plasma calcium measurement (mass/volume) 9.4 mg/dL 8.5-10.1 Serum or plasma total bilirubin measurement (mass/volu me) 0.5 mg/dL 0.1-1.0 Serum or plasma alkaline phosphatase malika surement (enzymatic activity/volume) 64 U/L 40-136 Serum or plasma aspartate aminotransfera se measurement (enzymatic activity/volume) 15 U/L 5-34 Serum or plasma alanine aminotransferase measurement (enzymatic activity/volume) 20 U/L 0-55 Serum or plasma protein measurement (mass/volume) 6.9 g/dL 6.4-8.2 Serum or plasma albumin measurement (mass/volume) 3.5 g/dL 3.2-4.5 CALCIUM CORRECTED 9.8 mg/dL 8.5-10.1 Capillary blood glucose measurement by g lucometer (mass/volume) - 12/17/18 11:04 Capillary blood glucose measurement by glucometer (mas s/volume) 97 mg/dL 70-110 Capillary blood glucose measurement by g lucometer (mass/volume) - 12/17/18 15:43 Capillary blood glucose measurement by glucometer (mas s/volume) 187 mg/dL 70-110 Capillary blood glucose measurement by g lucometer (mass/volume) - 12/17/18 20:37 Capillary blood glucose measurement by glucometer (mas s/volume) 136 mg/dL 70-110 Complete blood count (CBC) with automate d white blood cell (WBC) differential - 12/18/18 05:12 Blood leukocytes automated count (number/volume) 6.2 10*3/uL 4.3-11.0 Blood erythrocytes automated count (number/volume) 2.72 10*6/uL 4.35-5.85 Venous blood hemoglobin measurement (mass/volume) 8.0 g/dL 13.3-17.7 Blood hematocrit (volume fraction) 24 % 40-54 Automated erythrocyte mean corpuscular volume 87 [ foz_us] 80-99 Automated erythrocyte mean corpuscular h emoglobin (mass per erythrocyte) 29 pg 25-34 Automated erythrocyte mean corpuscular h emoglobin concentration measurement (mass/volume) 34 g/dL 32-36 Automated erythrocyte distribution width ratio 15. 8 % 10.0- 14.5 Automated blood platelet count (count/volume) 147 10*3/uL 130-400 Automated blood platelet mean volume measurement 10.0 [foz_us] 7.4-10.4 Automated blood neutrophils/100 leukocytes 74 % 42-75 Automated blood lymphocytes/100 leukocytes 12 % 12-44 Blood monocytes/100 leukocytes 11 % 0-12 Automated blood eosinophils/100 leukocytes 2 % 0-10 Automated blood basophils/100 leukocytes 0 % 0-10 Blood neutrophils automated count (number/volume) 4.7 10*3 1.8-7.8 Blood lymphocytes automated count (number/volume) 0.7 10*3 1.0-4.0 Blood monocytes automated count (number/volume) 0. 7 10*3 0.0-1.0 Automated eosinophil count 0.1 10*3/uL 0 .0-0.3 Automated blood basophil count (count/volume) 0.0 10*3/uL 0.0-0.1 PT panel in platelet poor plasma by coag ulation assay - 12/18/18 05:12 Prothrombin time (PT) in platelet poor plasma by coagu lation assay 19.0 s 12.2-14.7 INR in platelet poor plasma or blood by coagulation as say 1.5 0.8-1.4 Comprehensive metabolic panel - 12/18/18 05:12 Serum or plasma sodium measurement (moles/volume) 138 mmol/L 135-145 Serum or plasma potassium measurement (moles/volume) 4.1 mmol/L 3.6-5.0 Serum or plasma chloride measurement (moles/volume) 103 mmol/L 98-107 Carbon dioxide 22 mmol/L 21-32 Serum or plasma anion gap determination (moles/volume) 13 mmol/L 5-14 Serum or plasma urea nitrogen measurement (mass/volume ) 30 mg/dL 7-18 Serum or plasma creatinine measurement (mass/volume) 1.83 mg/dL 0.60-1.30 Serum or plasma urea nitrogen/creatinine mass ratio 16 NRG Serum or plasma creatinine measurement w ith calculation of estimated glomerular filtration rate 37 NRG Serum or plasma glucose measurement (mass/volume) 63 mg/dL 70-105 Serum or plasma calcium measurement (mass/volume) 9.1 mg/dL 8.5-10.1 Serum or plasma total bilirubin measurement (mass/volu me) 0.4 mg/dL 0.1-1.0 Serum or plasma alkaline phosphatase malika surement (enzymatic activity/volume) 78 U/L 40-136 Serum or plasma aspartate aminotransfera se measurement (enzymatic activity/volume) 26 U/L 5-34 Serum or plasma alanine aminotransferase measurement (enzymatic activity/volume) 27 U/L 0-55 Serum or plasma protein measurement (mass/volume) 6.4 g/dL 6.4-8.2 Serum or plasma albumin measurement (mass/volume) 3.3 g/dL 3.2-4.5 CALCIUM CORRECTED 9.7 mg/dL 8.5-10.1 Erythrocyte sedimentation rate by sd gren method - 12/18/18 05:12 Erythrocyte sedimentation rate by westergren method > mm 0- 30 Capillary blood glucose measurement by g lucometer (mass/volume) - 12/18/18 06:36 Capillary blood glucose measurement by glucometer (mas s/volume) 89 mg/dL 70-110 Capillary blood glucose measurement by g lucometer (mass/volume) - 12/18/18 10:54 Capillary blood glucose measurement by glucometer (mas s/volume) 237 mg/dL 70-110 Vancomycin trough - 12/18/18 15:14 Vancomycin trough 15.7 ug/mL 10.0-20.0 Capillary blood glucose measurement by g lucometer (mass/volume) - 12/18/18 15:46 Capillary blood glucose measurement by glucometer (mas s/volume) 82 mg/dL 70-110 Capillary blood glucose measurement by g lucometer (mass/volume) - 12/18/18 21:41 Capillary blood glucose measurement by glucometer (mas s/volume) 166 mg/dL 70-110 Capillary blood glucose measurement by g lucometer (mass/volume) - 12/19/18 05:27 Capillary blood glucose measurement by glucometer (mas s/volume) 102 mg/dL 70-110 Capillary blood glucose measurement by g lucometer (mass/volume) - 12/19/18 11:24 Capillary blood glucose measurement by glucometer (mas s/volume) 124 mg/dL 70-110 Capillary blood glucose measurement by g lucometer (mass/volume) - 12/19/18 15:44 Capillary blood glucose measurement by glucometer (mas s/volume) 177 mg/dL 70-110 Capillary blood glucose measurement by g lucometer (mass/volume) - 12/19/18 20:54 Capillary blood glucose measurement by glucometer (mas s/volume) 155 mg/dL 70-110 Capillary blood glucose measurement by g lucometer (mass/volume) - 12/20/18 05:23 Capillary blood glucose measurement by glucometer (mas s/volume) 42 mg/dL 70-110 Capillary blood glucose measurement by g lucometer (mass/volume) - 12/20/18 05:42 Capillary blood glucose measurement by glucometer (mas s/volume) 53 mg/dL 70-110 Capillary blood glucose measurement by g lucometer (mass/volume) - 12/20/18 06:01 Capillary blood glucose measurement by glucometer (mas s/volume) 123 mg/dL 70-110 Capillary blood glucose measurement by g lucometer (mass/volume) - 12/20/18 09:26 Capillary blood glucose measurement by glucometer (mas s/volume) 182 mg/dL 70-110 Capillary blood glucose measurement by g lucometer (mass/volume) - 12/20/18 10:44 Capillary blood glucose measurement by glucometer (mas s/volume) 243 mg/dL 70-110 Capillary blood glucose measurement by g lucometer (mass/volume) - 12/20/18 15:39 Capillary blood glucose measurement by glucometer (mas s/volume) 252 mg/dL 70-110 Methicillin resistant Staphylococcus aur eus (MRSA) screening culture - 12/20/18 17:00 Methicillin resistant Staphylococcus aureus (MRSA) scr eening culture NEG NRG Capillary blood glucose measurement by g lucometer (mass/volume) - 12/20/18 20:58 Capillary blood glucose measurement by glucometer (mas s/volume) 255 mg/dL 70-110 Capillary blood glucose measurement by g lucometer (mass/volume) - 12/21/18 05:50 Capillary blood glucose measurement by glucometer (mas s/volume) 149 mg/dL 70-110 PT panel in platelet poor plasma by coag ulation assay - 12/21/18 07:09 Prothrombin time (PT) in platelet poor plasma by coagu lation assay 20.7 s 12.2-14.7 INR in platelet poor plasma or blood by coagulation as say 1.7 0.8-1.4 Capillary blood glucose measurement by g lucometer (mass/volume) - 12/21/18 10:55 Capillary blood glucose measurement by glucometer (mas s/volume) 128 mg/dL 70-110 Capillary blood glucose measurement by g lucometer (mass/volume) - 12/21/18 16:01 Capillary blood glucose measurement by glucometer (mas s/volume) 190 mg/dL 70-110 Capillary blood glucose measurement by g lucometer (mass/volume) - 12/21/18 20:58 Capillary blood glucose measurement by glucometer (mas s/volume) 125 mg/dL 70-110 Capillary blood glucose measurement by g lucometer (mass/volume) - 12/22/18 05:34 Capillary blood glucose measurement by glucometer (mas s/volume) 139 mg/dL 70-110 Capillary blood glucose measurement by g lucometer (mass/volume) - 12/22/18 11:49 Capillary blood glucose measurement by glucometer (mas s/volume) 139 mg/dL 70-110 Automated blood complete blood count (he mogram) panel - 12/22/18 14:45 Blood leukocytes automated count (number/volume) 6.2 10*3/uL 4.3-11.0 Blood erythrocytes automated count (number/volume) 2.59 10*6/uL 4.35-5.85 Venous blood hemoglobin measurement (mass/volume) 7.7 g/dL 13.3-17.7 Blood hematocrit (volume fraction) 22 % 40-54 Automated erythrocyte mean corpuscular volume 87 [ foz_us] 80-99 Automated erythrocyte mean corpuscular h emoglobin (mass per erythrocyte) 30 pg 25-34 Automated erythrocyte mean corpuscular h emoglobin concentration measurement (mass/volume) 34 g/dL 32-36 Automated erythrocyte distribution width ratio 15. 8 % 10.0- 14.5 Automated blood platelet count (count/volume) 206 10*3/uL 130-400 Automated blood platelet mean volume measurement 9.1 [foz_us] 7.4-10.4 PT panel in platelet poor plasma by coag ulation assay - 12/22/18 14:45 Prothrombin time (PT) in platelet poor plasma by coagu lation assay 17.6 s 12.2-14.7 INR in platelet poor plasma or blood by coagulation as say 1.4 0.8-1.4 Whole blood basic metabolic panel - 12/01 10/18 14:45 Serum or plasma sodium measurement (moles/volume) 139 mmol/L 135-145 Serum or plasma potassium measurement (moles/volume) 3.8 mmol/L 3.6-5.0 Serum or plasma chloride measurement (moles/volume) 105 mmol/L 98-107 Carbon dioxide 23 mmol/L 21-32 Serum or plasma anion gap determination (moles/volume) 11 mmol/L 5-14 Serum or plasma urea nitrogen measurement (mass/volume ) 19 mg/dL 7-18 Serum or plasma creatinine measurement (mass/volume) 1.58 mg/dL 0.60-1.30 Serum or plasma urea nitrogen/creatinine mass ratio 12 NRG Serum or plasma creatinine measurement w ith calculation of estimated glomerular filtration rate 44 NRG Serum or plasma glucose measurement (mass/volume) 126 mg/dL 70-105 Serum or plasma calcium measurement (mass/volume) 9.2 mg/dL 8.5-10.1 RED CELLS LEUKO REDUCED AS1 - 12/22/18 1 5:37 RED CELLS LEUKO REDUCED AS1 N OT AVAILABLE NRG Blood type T Indirect antibody screen pa saad - 12/22/18 15:37 ABO+Rh group BP NR Transfusion band number [id number] NR Blood group antibody screen NEGATIVE NR G Capillary blood glucose measurement by g lucometer (mass/volume) - 12/22/18 16:07 Capillary blood glucose measurement by glucometer (mas s/volume) 145 mg/dL 70-110 Capillary blood glucose measurement by g lucometer (mass/volume) - 12/22/18 18:09 Capillary blood glucose measurement by glucometer (mas s/volume) 172 mg/dL 70-110 Capillary blood glucose measurement by g lucometer (mass/volume) - 12/22/18 20:45 Capillary blood glucose measurement by glucometer (mas s/volume) 181 mg/dL 70-110 Capillary blood glucose measurement by g lucometer (mass/volume) - 12/23/18 05:08 Capillary blood glucose measurement by glucometer (mas s/volume) 197 mg/dL 70-110 Capillary blood glucose measurement by g lucometer (mass/volume) - 12/23/18 11:29 Capillary blood glucose measurement by glucometer (mas s/volume) 233 mg/dL 70-110 Capillary blood glucose measurement by g lucometer (mass/volume) - 12/23/18 16:29 Capillary blood glucose measurement by glucometer (mas s/volume) 236 mg/dL 70-110 Capillary blood glucose measurement by g lucometer (mass/volume) - 12/23/18 20:45 Capillary blood glucose measurement by glucometer (mas s/volume) 139 mg/dL 70-110 Capillary blood glucose measurement by g lucometer (mass/volume) - 12/24/18 05:22 Capillary blood glucose measurement by glucometer (mas s/volume) 152 mg/dL 70-110 Capillary blood glucose measurement by g lucometer (mass/volume) - 12/24/18 11:25 Capillary blood glucose measurement by glucometer (mas s/volume) 187 mg/dL 70-110 Capillary blood glucose measurement by g lucometer (mass/volume) - 12/24/18 14:48 Capillary blood glucose measurement by glucometer (mas s/volume) 157 mg/dL 70-110 Complete blood count (CBC) with automate d white blood cell (WBC) differential - 12/24/18 15:15 Blood leukocytes automated count (number/volume) 7.2 10*3/uL 4.3-11.0 Blood erythrocytes automated count (number/volume) 2.45 10*6/uL 4.35-5.85 Venous blood hemoglobin measurement (mass/volume) 7.2 g/dL 13.3-17.7 Blood hematocrit (volume fraction) 21 % 40-54 Automated erythrocyte mean corpuscular volume 87 [ foz_us] 80-99 Automated erythrocyte mean corpuscular h emoglobin (mass per erythrocyte) 29 pg 25-34 Automated erythrocyte mean corpuscular h emoglobin concentration measurement (mass/volume) 34 g/dL 32-36 Automated erythrocyte distribution width ratio 15. 8 % 10.0- 14.5 Automated blood platelet count (count/volume) 208 10*3/uL 130-400 Automated blood platelet mean volume measurement 9.9 [foz_us] 7.4-10.4 Automated blood neutrophils/100 leukocytes 74 % 42-75 Automated blood lymphocytes/100 leukocytes 13 % 12-44 Blood monocytes/100 leukocytes 11 % 0-12 Automated blood eosinophils/100 leukocytes 2 % 0-10 Automated blood basophils/100 leukocytes 0 % 0-10 Blood neutrophils automated count (number/volume) 5.3 10*3 1.8-7.8 Blood lymphocytes automated count (number/volume) 1.0 10*3 1.0-4.0 Blood monocytes automated count (number/volume) 0. 8 10*3 0.0-1.0 Automated eosinophil count 0.2 10*3/uL 0 .0-0.3 Automated blood basophil count (count/volume) 0.0 10*3/uL 0.0-0.1 Comprehensive metabolic panel - 12/24/18 15:15 Serum or plasma sodium measurement (moles/volume) 138 mmol/L 135-145 Serum or plasma potassium measurement (moles/volume) 3.6 mmol/L 3.6-5.0 Serum or plasma chloride measurement (moles/volume) 105 mmol/L 98-107 Carbon dioxide 21 mmol/L 21-32 Serum or plasma anion gap determination (moles/volume) 12 mmol/L 5-14 Serum or plasma urea nitrogen measurement (mass/volume ) 26 mg/dL 7-18 Serum or plasma creatinine measurement (mass/volume) 1.72 mg/dL 0.60-1.30 Serum or plasma urea nitrogen/creatinine mass ratio 15 NRG Serum or plasma creatinine measurement w ith calculation of estimated glomerular filtration rate 40 NRG Serum or plasma glucose measurement (mass/volume) 151 mg/dL 70-105 Serum or plasma calcium measurement (mass/volume) 8.7 mg/dL 8.5-10.1 Serum or plasma total bilirubin measurement (mass/volu me) 0.3 mg/dL 0.1-1.0 Serum or plasma alkaline phosphatase malika surement (enzymatic activity/volume) 92 U/L 40-136 Serum or plasma aspartate aminotransfera se measurement (enzymatic activity/volume) 20 U/L 5-34 Serum or plasma alanine aminotransferase measurement (enzymatic activity/volume) 26 U/L 0-55 Serum or plasma protein measurement (mass/volume) 6.4 g/dL 6.4-8.2 Serum or plasma albumin measurement (mass/volume) 3.1 g/dL 3.2-4.5 CALCIUM CORRECTED 9.4 mg/dL 8.5-10.1 Vancomycin trough - 12/24/18 15:15 Vancomycin trough 15.9 ug/mL 10.0-20.0 Capillary blood glucose measurement by g lucometer (mass/volume) - 12/24/18 16:55 Capillary blood glucose measurement by glucometer (mas s/volume) 206 mg/dL 70-110 Capillary blood glucose measurement by g lucometer (mass/volume) - 12/24/18 22:21 Capillary blood glucose measurement by glucometer (mas s/volume) 169 mg/dL 70-110 Capillary blood glucose measurement by g lucometer (mass/volume) - 12/25/18 05:44 Capillary blood glucose measurement by glucometer (mas s/volume) 160 mg/dL 70-110 Capillary blood glucose measurement by g lucometer (mass/volume) - 12/25/18 11:29 Capillary blood glucose measurement by glucometer (mas s/volume) 185 mg/dL 70-110 Capillary blood glucose measurement by g lucometer (mass/volume) - 12/25/18 16:15 Capillary blood glucose measurement by glucometer (mas s/volume) 164 mg/dL 70-110 Capillary blood glucose measurement by g lucometer (mass/volume) - 12/25/18 20:53 Capillary blood glucose measurement by glucometer (mas s/volume) 74 mg/dL 70-110 Capillary blood glucose measurement by g lucometer (mass/volume) - 12/25/18 21:52 Capillary blood glucose measurement by glucometer (mas s/volume) 70 mg/dL 70-110 Capillary blood glucose measurement by g lucometer (mass/volume) - 12/26/18 05:49 Capillary blood glucose measurement by glucometer (mas s/volume) 181 mg/dL 70-110 Complete blood count (CBC) with automate d white blood cell (WBC) differential - 12/26/18 06:54 Blood leukocytes automated count (number/volume) 6.5 10*3/uL 4.3-11.0 Blood erythrocytes automated count (number/volume) 2.82 10*6/uL 4.35-5.85 Venous blood hemoglobin measurement (mass/volume) 8.1 g/dL 13.3-17.7 Blood hematocrit (volume fraction) 25 % 40-54 Automated erythrocyte mean corpuscular volume 88 [ foz_us] 80-99 Automated erythrocyte mean corpuscular h emoglobin (mass per erythrocyte) 29 pg 25-34 Automated erythrocyte mean corpuscular h emoglobin concentration measurement (mass/volume) 33 g/dL 32-36 Automated erythrocyte distribution width ratio 16. 1 % 10.0- 14.5 Automated blood platelet count (count/volume) 220 10*3/uL 130-400 Automated blood platelet mean volume measurement 9.8 [foz_us] 7.4-10.4 Automated blood neutrophils/100 leukocytes 74 % 42-75 Automated blood lymphocytes/100 leukocytes 17 % 12-44 Blood monocytes/100 leukocytes 7 % 0-12 Automated blood eosinophils/100 leukocytes 2 % 0-10 Automated blood basophils/100 leukocytes 0 % 0-10 Blood neutrophils automated count (number/volume) 4.8 10*3 1.8-7.8 Blood lymphocytes automated count (number/volume) 1.1 10*3 1.0-4.0 Blood monocytes automated count (number/volume) 0. 5 10*3 0.0-1.0 Automated eosinophil count 0.2 10*3/uL 0 .0-0.3 Automated blood basophil count (count/volume) 0.0 10*3/uL 0.0-0.1 [id number] - 12/26/18 06:54 [id number] SPECIMEN AVAILABLE [facility] Whole blood basic metabolic panel - 12/01 02/17 06:54 Serum or plasma sodium measurement (moles/volume) 140 mmol/L 135-145 Serum or plasma potassium measurement (moles/volume) 3.9 mmol/L 3.6-5.0 Serum or plasma chloride measurement (moles/volume) 105 mmol/L 98-107 Carbon dioxide 22 mmol/L 21-32 Serum or plasma anion gap determination (moles/volume) 13 mmol/L 5-14 Serum or plasma urea nitrogen measurement (mass/volume ) 22 mg/dL 7-18 Serum or plasma creatinine measurement (mass/volume) 1.33 mg/dL 0.60-1.30 Serum or plasma urea nitrogen/creatinine mass ratio 17 NRG Serum or plasma creatinine measurement w ith calculation of estimated glomerular filtration rate 54 NRG Serum or plasma glucose measurement (mass/volume) 149 mg/dL 70-105 Serum or plasma calcium measurement (mass/volume) 9.2 mg/dL 8.5-10.1 Capillary blood glucose measurement by g lucometer (mass/volume) - 12/26/18 11:26 Capillary blood glucose measurement by glucometer (mas s/volume) 178 mg/dL 70-110 Capillary blood glucose measurement by g lucometer (mass/volume) - 12/26/18 16:10 Capillary blood glucose measurement by glucometer (mas s/volume) 191 mg/dL 70-110 Capillary blood glucose measurement by g lucometer (mass/volume) - 12/26/18 21:03 Capillary blood glucose measurement by glucometer (mas s/volume) 88 mg/dL 70-110 Capillary blood glucose measurement by g lucometer (mass/volume) - 12/27/18 02:27 Capillary blood glucose measurement by glucometer (mas s/volume) 142 mg/dL 70-110 Capillary blood glucose measurement by g lucometer (mass/volume) - 12/27/18 05:22 Capillary blood glucose measurement by glucometer (mas s/volume) 203 mg/dL 70-110 Capillary blood glucose measurement by g lucometer (mass/volume) - 12/27/18 11:17 Capillary blood glucose measurement by glucometer (mas s/volume) 215 mg/dL 70-110 Capillary blood glucose measurement by g lucometer (mass/volume) - 12/27/18 15:58 Capillary blood glucose measurement by glucometer (mas s/volume) 172 mg/dL 70-110 Capillary blood glucose measurement by g lucometer (mass/volume) - 12/27/18 19:52 Capillary blood glucose measurement by glucometer (mas s/volume) 337 mg/dL 70-110 Capillary blood glucose measurement by g lucometer (mass/volume) - 12/28/18 05:46 Capillary blood glucose measurement by glucometer (mas s/volume) 132 mg/dL 70-110 Capillary blood glucose measurement by g lucometer (mass/volume) - 12/28/18 10:55 Capillary blood glucose measurement by glucometer (mas s/volume) 136 mg/dL 70-110 Protime - 03/22/19 11:20 INR 1.2 1.0-4.0 Protime 13.5 Sec 9.9-12.8 Protime - 03/31/19 10:40 INR 1.3 1.0-4.0 Protime 14.7 Sec 9.9-12.8 Protime - 04/19/19 13:10 INR 2.3 1.0-4.0 Protime 27.4 Sec 9.9-12.8 Influenza virus A and B antigen detectio n - 10/11/19 12:44 FLU RESULT NEGATIVE FOR INFLUENZA A AND B ANTIGENS BY IA [facility] Complete blood count (CBC) with automate d white blood cell (WBC) differential - 10/11/19 12:47 Blood leukocytes automated count (number/volume) 6.1 10*3/uL 4.3-11.0 Blood erythrocytes automated count (number/volume) 3.75 10*6/uL 4.35-5.85 Venous blood hemoglobin measurement (mass/volume) 10.9 g/dL 13.3-17.7 Blood hematocrit (volume fraction) 32 % 40-54 Automated erythrocyte mean corpuscular volume 85 [ foz_us] 80-99 Automated erythrocyte mean corpuscular h emoglobin (mass per erythrocyte) 29 pg 25-34 Automated erythrocyte mean corpuscular h emoglobin concentration measurement (mass/volume) 34 g/dL 32-36 Automated erythrocyte distribution width ratio 16. 8 % 10.0- 14.5 Automated blood platelet count (count/volume) 150 10*3/uL 130-400 Automated blood platelet mean volume measurement 10.7 [foz_us] 7.4-10.4 Automated blood neutrophils/100 leukocytes 72 % 42-75 Automated blood lymphocytes/100 leukocytes 16 % 12-44 Blood monocytes/100 leukocytes 9 % 0-12 Automated blood eosinophils/100 leukocytes 2 % 0-10 Automated blood basophils/100 leukocytes 0 % 0-10 Blood neutrophils automated count (number/volume) 4.4 10*3 1.8-7.8 Blood lymphocytes automated count (number/volume) 1.0 10*3 1.0-4.0 Blood monocytes automated count (number/volume) 0. 6 10*3 0.0-1.0 Automated eosinophil count 0.1 10*3/uL 0 .0-0.3 Automated blood basophil count (count/volume) 0.0 10*3/uL 0.0-0.1 Serum or plasma lithium measurement (mol es/volume) - 10/11/19 12:47 BNP PT 182.1 pg/mL <100.0 Bacterial blood culture - 10/11/19 12:47 Bacterial blood culture NG NRG PT panel in platelet poor plasma by coag ulation assay - 10/11/19 12:59 Prothrombin time (PT) in platelet poor plasma by coagu lation assay 40.6 s 12.2-14.7 INR in platelet poor plasma or blood by coagulation as say 4.0 0.8-1.4 Blood lactic acid measurement (moles/vol ume) - 10/11/19 14:32 Blood lactic acid measurement (moles/volume) 1.00 mmol/L 0.50-2.00 Comprehensive metabolic panel - 10/11/19 14:32 Serum or plasma sodium measurement (moles/volume) 137 mmol/L 135-145 Serum or plasma potassium measurement (moles/volume) 5.0 mmol/L 3.6-5.0 Serum or plasma chloride measurement (moles/volume) 104 mmol/L 98-107 Carbon dioxide 22 mmol/L 21-32 Serum or plasma anion gap determination (moles/volume) 11 mmol/L 5-14 Serum or plasma urea nitrogen measurement (mass/volume ) 38 mg/dL 7-18 Serum or plasma creatinine measurement (mass/volume) 1.74 mg/dL 0.60-1.30 Serum or plasma urea nitrogen/creatinine mass ratio 22 NRG Serum or plasma creatinine measurement w ith calculation of estimated glomerular filtration rate 39 NRG Serum or plasma glucose measurement (mass/volume) 136 mg/dL 70-105 Serum or plasma calcium measurement (mass/volume) 9.5 mg/dL 8.5-10.1 Serum or plasma total bilirubin measurement (mass/volu me) 0.4 mg/dL 0.1-1.0 Serum or plasma alkaline phosphatase malika surement (enzymatic activity/volume) 76 U/L 40-136 Serum or plasma aspartate aminotransfera se measurement (enzymatic activity/volume) 21 U/L 5-34 Serum or plasma alanine aminotransferase measurement (enzymatic activity/volume) 21 U/L 0-55 Serum or plasma protein measurement (mass/volume) 6.8 g/dL 6.4-8.2 Serum or plasma albumin measurement (mass/volume) 3.9 g/dL 3.2-4.5 CALCIUM CORRECTED 9.6 mg/dL 8.5-10.1 PROCALCITONIN (PCT) - 10/11/19 14:32 PROCALCITONIN (PCT) 0.05 ng/mL <0.10 Serum or plasma troponin i.cardiac measu rement (mass/volume) - 10/11/19 14:32 Serum or plasma troponin i.cardiac measurement (mass/v olume) < ng/mL <0.028 THYROID STIMULATING HORMONE - 10/11/19 1 4:32 THYROID STIMULATING HORMONE 3.91 u[iU]/mL 0.35-4.94 Serum or plasma thyroxine (T4) free landry urement (mass/volume) - 10/11/19 14:32 Serum or plasma thyroxine (T4) free measurement (mass/ volume) 0.87 ng/dL 0.70-1.48 Bacterial blood culture - 10/11/19 14:32 Bacterial blood culture NG NRG Capillary blood glucose measurement by g lucometer (mass/volume) - 10/12/19 12:13 Capillary blood glucose measurement by glucometer (mas s/volume) 266 mg/dL 70-110 Capillary blood glucose measurement by g lucometer (mass/volume) - 10/12/19 16:08 Capillary blood glucose measurement by glucometer (mas s/volume) 344 mg/dL 70-110 Complete urinalysis with reflex to cultu re - 10/12/19 16:40 Urine color determination YELLOW NRG Urine clarity determination CLEAR NR G Urine pH measurement by test strip 6.0 5-9 Specific gravity of urine by test strip 1.015 1.016-1.022 Urine protein assay by test strip, semi-quantitative 1+ NEGATIVE Urine glucose detection by automated test strip NE GATIVE NEGATIVE Erythrocytes detection in urine sediment by light micr oscopy 3+ NEGATIVE Urine ketones detection by automated test strip NE GATIVE NEGATIVE Urine nitrite detection by test strip POSITIVE NEGATIVE Urine total bilirubin detection by test strip NEGA TIVE NEGATIVE Urine urobilinogen measurement by automated test strip (mass/volume) 1.0 mg/dL < = 1.0 Urine leukocyte esterase detection by dipstick 3+ NEGATIVE Automated urine sediment erythrocyte cou nt by microscopy (number/high power field) [HPF] NRG Automated urine sediment leukocyte count by microscopy (number/high power field) [HPF] NRG Bacteria detection in urine sediment by light microsco py MODERATE NRG Crystals detection in urine sediment by light microsco py NONE NRG Casts detection in urine sediment by light microscopy NONE NRG Mucus detection in urine sediment by light microscopy NEGATIVE NRG Complete urinalysis with reflex to culture YES NRG Bacterial urine culture - 10/12/19 16:40 Bacterial urine culture [id number] NRG COLONY COUNT >100,000/ML NRG FTX;REPORTABLE SUSCEPTIBILITY REPORTED 10/14 11:45 NRG FREE TEXT ENTRY 2 PRELIM RAPID ID TEST AT [facility] 10/12 9:55 NRG FREE TEXT ENTRY 3 RML ID 10/12 17:05:KLEB PNEUMONIA E NRG Dirithromycin susceptibility test by dis k diffusion - 10/12/19 16:40 Gentamicin susceptibility test by minimum inhibitory c oncentration <= NRG Trimethoprim/sulfamethoxazole susceptibi lity test by minimum inhibitoryconcentration <= NRG Levofloxacin susceptibility test by minimum inhibitory concentration <= NRG Ampicillin susceptibility test by minimum inhibitory c oncentration > NRG Cefazolin susceptibility test by minimum inhibitory co ncentration <= NRG Ceftriaxone susceptibility test by minimum inhibitory concentration <= NRG Ciprofloxacin susceptibility test by minimum inhibitor y concentration <= NRG Meropenem susceptibility test by minimum inhibitory co ncentration <= NRG Nitrofurantoin susceptibility test by mi nimum inhibitory concentration > NRG Amoxicillin and clavulanate potassium susc KEYSHAWN <= NRG Capillary blood glucose measurement by g lucometer (mass/volume) - 10/12/19 21:41 Capillary blood glucose measurement by glucometer (mas s/volume) 163 mg/dL 70-110 Automated blood complete blood count (he mogram) panel - 10/13/19 04:20 Blood leukocytes automated count (number/volume) 6.5 10*3/uL 4.3-11.0 Blood erythrocytes automated count (number/volume) 3.61 10*6/uL 4.35-5.85 Venous blood hemoglobin measurement (mass/volume) 10.3 g/dL 13.3-17.7 Blood hematocrit (volume fraction) 31 % 40-54 Automated erythrocyte mean corpuscular volume 86 [ foz_us] 80-99 Automated erythrocyte mean corpuscular h emoglobin (mass per erythrocyte) 29 pg 25-34 Automated erythrocyte mean corpuscular h emoglobin concentration measurement (mass/volume) 33 g/dL 32-36 Automated erythrocyte distribution width ratio 17. 0 % 10.0- 14.5 Automated blood platelet count (count/volume) 131 10*3/uL 130-400 Automated blood platelet mean volume measurement 10.5 [foz_us] 7.4-10.4 PT panel in platelet poor plasma by coag ulation assay - 10/13/19 04:20 Prothrombin time (PT) in platelet poor plasma by coagu lation assay 30.4 s 12.2-14.7 INR in platelet poor plasma or blood by coagulation as say 2.8 0.8-1.4 Whole blood basic metabolic panel - 09/30 10/19 04:20 Serum or plasma sodium measurement (moles/volume) 137 mmol/L 135-145 Serum or plasma potassium measurement (moles/volume) 4.0 mmol/L 3.6-5.0 Serum or plasma chloride measurement (moles/volume) 99 mmol/L 98-107 Carbon dioxide 26 mmol/L 21-32 Serum or plasma anion gap determination (moles/volume) 12 mmol/L 5-14 Serum or plasma urea nitrogen measurement (mass/volume ) 46 mg/dL 7-18 Serum or plasma creatinine measurement (mass/volume) 2.08 mg/dL 0.60-1.30 Serum or plasma urea nitrogen/creatinine mass ratio 22 NRG Serum or plasma creatinine measurement w ith calculation of estimated glomerular filtration rate 32 NRG Serum or plasma glucose measurement (mass/volume) 215 mg/dL 70-105 Serum or plasma calcium measurement (mass/volume) 8.6 mg/dL 8.5-10.1 Capillary blood glucose measurement by g lucometer (mass/volume) - 10/13/19 05:29 Capillary blood glucose measurement by glucometer (mas s/volume) 224 mg/dL 70-110 Capillary blood glucose measurement by g lucometer (mass/volume) - 10/13/19 08:23 Capillary blood glucose measurement by glucometer (mas s/volume) 157 mg/dL 70-110 Capillary blood glucose measurement by g lucometer (mass/volume) - 10/13/19 11:47 Capillary blood glucose measurement by glucometer (mas s/volume) 288 mg/dL 70-110 Capillary blood glucose measurement by g lucometer (mass/volume) - 01/02/20 17:27 Capillary blood glucose measurement by glucometer (mas s/volume) 543 mg/dL 70-110 Complete blood count (CBC) with automate d white blood cell (WBC) differential - 01/02/20 17:35 Blood leukocytes automated count (number/volume) 6.7 10*3/uL 4.3-11.0 Blood erythrocytes automated count (number/volume) 3.83 10*6/uL 4.35-5.85 Venous blood hemoglobin measurement (mass/volume) 11.0 g/dL 13.3-17.7 Blood hematocrit (volume fraction) 32 % 40-54 Automated erythrocyte mean corpuscular volume 83 [ foz_us] 80-99 Automated erythrocyte mean corpuscular h emoglobin (mass per erythrocyte) 29 pg 25-34 Automated erythrocyte mean corpuscular h emoglobin concentration measurement (mass/volume) 35 g/dL 32-36 Automated erythrocyte distribution width ratio 14. 9 % 10.0- 14.5 Automated blood platelet count (count/volume) 112 10*3/uL 130-400 Automated blood platelet mean volume measurement 10.6 [foz_us] 7.4-10.4 Automated blood neutrophils/100 leukocytes 75 % 42-75 Automated blood lymphocytes/100 leukocytes 14 % 12-44 Blood monocytes/100 leukocytes 10 % 0-12 Automated blood eosinophils/100 leukocytes 1 % 0-10 Automated blood basophils/100 leukocytes 0 % 0-10 Blood neutrophils automated count (number/volume) 5.0 10*3 1.8-7.8 Blood lymphocytes automated count (number/volume) 0.9 10*3 1.0-4.0 Blood monocytes automated count (number/volume) 0. 6 10*3 0.0-1.0 Automated eosinophil count 0.1 10*3/uL 0 .0-0.3 Automated blood basophil count (count/volume) 0.0 10*3/uL 0.0-0.1 Comprehensive metabolic panel - 01/02/20 17:35 Serum or plasma sodium measurement (moles/volume) 127 mmol/L 135-145 Serum or plasma potassium measurement (moles/volume) 4.5 mmol/L 3.6-5.0 Serum or plasma chloride measurement (moles/volume) 95 mmol/L 98-107 Carbon dioxide 22 mmol/L 21-32 Serum or plasma anion gap determination (moles/volume) 10 mmol/L 5-14 Serum or plasma urea nitrogen measurement (mass/volume ) 33 mg/dL 7-18 Serum or plasma creatinine measurement (mass/volume) 2.00 mg/dL 0.60-1.30 Serum or plasma urea nitrogen/creatinine mass ratio 17 NRG Serum or plasma creatinine measurement w ith calculation of estimated glomerular filtration rate 33 NRG Serum or plasma glucose measurement (mass/volume) 608 mg/dL 70-105 Serum or plasma calcium measurement (mass/volume) 8.7 mg/dL 8.5-10.1 Serum or plasma total bilirubin measurement (mass/volu me) 0.6 mg/dL 0.1-1.0 Serum or plasma alkaline phosphatase malika surement (enzymatic activity/volume) 91 U/L 40-136 Serum or plasma aspartate aminotransfera se measurement (enzymatic activity/volume) 13 U/L 5-34 Serum or plasma alanine aminotransferase measurement (enzymatic activity/volume) 21 U/L 0-55 Serum or plasma protein measurement (mass/volume) 6.6 g/dL 6.4-8.2 Serum or plasma albumin measurement (mass/volume) 3.5 g/dL 3.2-4.5 CALCIUM CORRECTED 9.1 mg/dL 8.5-10.1 Blood lactic acid measurement (moles/vol ume) - 01/02/20 17:35 Blood lactic acid measurement (moles/volume) 0.85 mmol/L 0.50-2.00 Serum or plasma C reactive protein measu rement (mass/volume) - 01/02/20 17:35 Serum or plasma C reactive protein measurement (mass/v olume) 6.91 mg/dL 0.00-0.50 PT panel in platelet poor plasma by coag ulation assay - 01/02/20 17:35 Prothrombin time (PT) in platelet poor plasma by coagu lation assay 15.4 s 12.2-14.7 INR in platelet poor plasma or blood by coagulation as say 1.2 0.8-1.4 Activated partial thromboplastin time (a PTT) in platelet poor plasma bycoagulation assay - 01/02/20 17:35 Activated partial thromboplastin time (a PTT) in platelet poor plasma bycoagulation assay 34 s 24-35 Serum or plasma lithium measurement (mol es/volume) - 01/02/20 17:35 BNP PT 228.9 pg/mL <100.0 Complete urinalysis with reflex to cultu re - 01/02/20 17:47 Urine color determination YELLOW NRG Urine clarity determination CLEAR NR G Urine pH measurement by test strip 5.5 5-9 Specific gravity of urine by test strip <= 1.016-1.022 Urine protein assay by test strip, semi-quantitative 1+ NEGATIVE Urine glucose detection by automated test strip 3+ NEGATIVE Erythrocytes detection in urine sediment by light micr oscopy NEGATIVE NEGATIVE Urine ketones detection by automated test strip NE GATIVE NEGATIVE Urine nitrite detection by test strip NEGATIVE NEGATIVE Urine total bilirubin detection by test strip NEGA TIVE NEGATIVE Urine urobilinogen measurement by automated test strip (mass/volume) 0.2 mg/dL < = 1.0 Urine leukocyte esterase detection by dipstick NEG ATIVE NEGATIVE Automated urine sediment erythrocyte cou nt by microscopy (number/high power field) RARE NRG Automated urine sediment leukocyte count by microscopy (number/high power field) RARE NRG Bacteria detection in urine sediment by light microsco py NEGATIVE NRG Crystals detection in urine sediment by light microsco py PRESENT NRG Casts detection in urine sediment by light microscopy NONE NRG Mucus detection in urine sediment by light microscopy NEGATIVE NRG Complete urinalysis with reflex to culture CULTURE PENDING NRG Amorphous sediment detection in urine sediment by ligh t microscopy MOD FRANCIS URATES NRG Encounters ACCT No. Visit Date/Time Discharge Status Pt. Type Provider Facility Loc./Unit Complaint [id number] 04/19/2019 13:51:00 04/19/2019 23:59: 00 DIS Outpatient GIL KAHN [id number] 04/12/2019 12:19:00 04/12/2019 23:59: 00 DIS Outpatient GIL KAHN [id number] 03/31/2019 10:18:00 03/31/2019 23:59: 00 DIS Outpatient GIL KAHN [id number] 03/22/2019 12:05:00 03/22/2019 23:59: 00 DIS Outpatient GIL KAHN [id number] 10/11/2019 14:47:00 14:22:00 DIS Inpatient ANTONIO MICHAELS MD [facility] 4TH ORTHOPNEA, EDEMA [id number] 08/31/2019 10:07:00 15:10:00 DIS Outpatient ODILON MALONE [facility] REHAB CHONDROMALACIA L PATELL Cole S/P R BKA [id number] 08/17/2019 10:14:00 020 00:01:00 DIS Outpatient ODILON MALONE [facility] REHAB CHONDROMALACIA L CEDRIC Galvan S/P R BKA [id number] 12/16/2018 16:00:00 019 14:55:00 DIS Inpatient RENNY PAINTING MD [facility] 4TH CELLULITIS R LE G;WOUND INFECTION R FOOT [id number] 11/07/2018 04:09:00 019 07:45:00 DIS Emergency MISAEL THORNTON DO [facility] ER WEAKNESS/SOA [id number] 04/08/2018 10:10:00 018 23:59:59 CLS Inpatient ARMEN TENORIO MD [facility] IRF VERTIGO, FALLS [id number] 04/05/2018 23:13:00 018 10:00:00 DIS Inpatient CASSY PALACIO MD [facility] 4TH FEVER OF UNKNOWN SOURCE,VOMITING,SEVERE DIZZINESS [id number] 02/09/2018 14:37:00 018 18:46:00 DIS Emergency MISAEL THORNTON DO [facility] ER FALL/POSS HEAD INJURY [id number] 10/11/2017 13:32:00 018 23:59:59 CLS Outpatient GIL KAHN DO [facility] RAD TRAUMA,M79.642, M79.672 [id number] 11/13/2016 10:31:00 017 12:36:00 DIS Inpatient ARMEN TENORIO MD [facility] IRF DEBILITY [id number] 11/10/2016 12:25:00 017 10:30:00 DIS Inpatient CASSY PALACIO MD [facility] 4TH CELLULITIS KLE [id number] 07/08/2016 12:07:00 016 13:41:00 DIS Emergency PRIMO FRANCOIS APRN [facility] ER FALL/RIGHT FOOT PAIN [id number] 07/01/2016 10:00:00 23:59:59 CLS Preadmit GIL KAHN DO Terri [facility] CR ACB REDO [id number] 06/24/2016 11:09:00 00:01:00 DIS Outpatient GIL KAHN DO Terri [facility] CR ACB REDO [id number] 06/01/2016 16:44:00 23:59:59 CLS Outpatient KAHN DO, GIL Terri [facility] RAD HEADACHE,SEVERE VERTIGO [id number] 01/06/2016 16:41:00 23:59:59 CLS Outpatient JUDY CABRALES MD [facility] OSTEOMYLITIS LEFT FING ER, MSSA INFECTION [id number] 12/30/2015 14:44:00 23:59:59 CLS Outpatient JUDY CABRALES MD [facility] OSTEOMYLITIS LEFT FING ER, MSSA INFECTION [id number] 12/23/2015 16:18:00 23:59:59 CLS Outpatient JUDY CABRALES MD [facility] OSTEOMYLITIS LEFT FING ER, MSSA INFECTION [id number] 12/16/2015 13:01:00 23:59:59 CLS Outpatient JUDY CABRALES MD [facility] OSTEOMYLITIS LEFT FING ER, MSSA INFECTION [id number] 12/12/2015 11:43:00 23:59:59 CLS Outpatient JUDY CABRALES MD [facility] OSTEOMYLITIS (L) THUMB [id number] 12/09/2015 10:44:00 23:59:59 CLS Outpatient JUDY CABRALES MD [facility] OSTEOMYLITIS LT FINGER ,MSSA INFECTION [id number] 12/06/2015 10:50:00 016 12:00:00 DIS Outpatient LÓPEZ FRANCO, ELMO Chaudhry [facility] WOUNDCARE [id number] 12/02/2015 15:53:00 016 23:59:59 CLS Outpatient JUDY CABRALES MD [facility] HH OSTEOMYLITIS LEFT FING ER, MSSA INFECTION [id number] 08/07/2015 07:10:00 016 14:05:00 DIS Outpatient BARBIE ALFRED MD [facility] CATH PAD,CLAUDICATION,SHORT OF BREATH,HTN,DM,HLP [id number] 06/19/2015 11:52:00 015 23:59:59 CLS Outpatient BARBIE ALFRED MD [facility] CARD CAD,ASHLY,HTN,HLP [id number] 01/23/2015 19:06:00 015 12:32:00 DIS Inpatient GIL KAHN DO [facility] 4TH HYPONATREMIA,SC IATICA [id number] 06/13/2014 14:05:00 014 23:59:59 CLS Outpatient GIL KAHN DO [facility] RT DSYPNEA [id number] 03/07/2014 12:28:00 014 23:59:59 CLS Outpatient GIL KAHN DO [facility] RAD TRAUMATIC BRAIN INJURY,TRAUMA [id number] 06/14/2013 07:34:00 23:59:59 CLS Outpatient BARBIE ALFRED MD [facility] RAD CAD,CP,DIZZINESS [id number] 06/09/2013 09:46:00 23:59:59 CLS Outpatient BARBIE ALFRED MD [facility] CARD CAD,CP,DIZZINESS [id number] 01/02/2020 17:36:00 Document Registration [id number] 08/07/2015 07:09:00 Document Registration [id number] 04/27/2012 12:29:00 Document Registration [id number] 09/23/2011 11:18:00 Document Registration [id number] 11/26/2010 07:10:00 Document Registration [id number] 11/24/2010 07:01:00 Document Registration [id number] 11/07/2010 11:15:00 Document Registration [id number] 11/03/2010 09:00:00 Document Registration [id number] 06/26/2010 17:20:00 Document Registration [id number] 02/24/2010 06:59:00 Document Registration
--- NOTE | 2020-01-02 20:24 | NUR ---
ELMO GARCIA admitted to room 414-1, with an admitting diagnosis of DEPENDENT EDEMA, HYPERGLYCEMIA, AND SUBTHERAPEUTIC INR on 01/02/20 from AM via [facility], accompanied by HOSPITAL STAFF.ELMO GARCIA introduced to surroundings, call light, bed controls, phone, TV, temperature control, lights, meal times, smoking policy, visitor policy, side rail policy, bathrooms and showers. Patient Rights given to patient in the handbook. ELMO GARCIA verbalizes understanding that [facility] is not responsible for the loss or damage to any personal effects or valuables that are kept in the patients posession during their hospitalization. ELMO GARCIA verbalizes understanding of Interdisciplinary Patient Education. Patient and/or family were informed about the Rapid Response Team and its purpose.
--- OUTSIDE RECORDS SUMMARY | 2020-01-02 20:26 | XMS REPORT | Clinical Summary ---
Author Author [facility] Organization [facility] Address Unknown Phone Unavailable Care Team Providers Care Jewelry Polisher Name Role Phone Kiel Mayer MD Unavailable Unavailable Chayo Strong APRN Unavailable Unavailable John Dumont MD Unavailable Valerie Cole PA-C Unavailable Irene Fontenot Unavailable Unavailable Carol Alford Unavailable Tyler Bello MD PCP Source Comments Some departments are not documenting in the electronic medical record. If you d o not see the information that you expected, contact Release of Information in [facility] Health Information Management department at [phone] for further assistan ce in locating additional records.[facility] Allergies Comments Active Allergy Reactions Severity [...]
--- OUTSIDE RECORDS SUMMARY | 2020-01-02 20:26 | XMS REPORT ---
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 ([id number]) Nausea and Vomiting, no information no information CASSY GUARDADO S Not Available vomiting (8 unspecified , (31996) sources.) Procedures Procedure Normalized Procedure Procedure Result Performer Facility Date 04-05-2018 Computed tomography of no information JAMES MIRANDA Via [facility] abdomen and pelvis [place] ([id number]) with contrast 02-09-2018 Computed tomography of no information MISAEL THORNTON [facility] spine [place] ([id number]) 04-05-2018 Computerized axial no information DULCE MARIA dover [facility] tomography of brain [place] ([id number]) 02-09-2018 Computerized axial no information MISAEL SHARPEO [facility] tomography of brain [place] ([id number]) 02-09-2018 Ct Mandy Chest/Noang no information MISAELCole SHARPEO Via [facility] Abd-Pelv W [place] ([id number]) 12-23-2018 DETACHMENT AT RIGHT no information no name [facility] Via [facility] LEG, [facility], [facility] ([id number]) DETACHMENT AT RIGHT no information no name [facility] Via [facility] LEG, [facility], [facility] ([id number]) 02-09-2018 Electrocardiographic no information MISAEL THORNTON Vi a [facility] procedure [place] ([id number]) 04-05-2018 Plain chest X-ray no information DULCE MARIA CUEVAS Vi a [facility] ([id number]) 02-09-2018 Plain chest X-ray no information MISAEL THORNTON Via C [facility] ([id number]) Immunizations The data below is from unstructured sourcesNo immunization records. Results Test Name Value Interpretation Reference Range Date Time Fa cility (Normalized) (Normalized) (Medline Reference) laboratory on 2020-01-02 Albumin 3.5 g/dL (NEG) 3.4 - 5.4 g/dL 01-02-2020 PENDING LOCATION [Mass/Vol] 13:35-0400 [facility] ([id number]) ALP [Catalytic 91 U/L (NEG) 44 - 147 U/L 01-02-2020 PEND ING LOCATION activity/Vol] 13:35-0400 [facility] ([id number]) Anion gap 10 mmol/L (NEG) 3 - 11 mmol/L 01-02-2020 PENDING LOCATION [Moles/Vol] 13:35-0400 [facility] ([id number]) aPTT Coag (PPP) 34 s (NEG) 25 - 35 s 01-02-2020 PENDIN G LOCATION [Time] 13:35-0400 [facility] ([id number]) Basophils (Bld) 0.0 10*3/uL (NEG) 0 - 0.3 10*3/uL 01-02-2020 PENDING LOCATION [#/Vol] 13:35-0400 [facility] ([id number]) Basophils/100 0 % (NEG) 0.5 - 1 % 01-02-2020 PENDING LOCATION WBC (Bld) 13:35-0400 [facility] ([id number]) Bilirubin 0.6 mg/dL (NEG) 0.1 - 1.2 mg/dL 01-02-2020 PENDIN G LOCATION [Mass/Vol] 13:35-0400 [facility] ([id number]) Calcium 8.7 mg/dL (NEG) 8.5 - 10.2 mg/dL 01-02-2020 PENDI NG LOCATION [Mass/Vol] 13:35-0400 [facility] ([id number]) Calcium 9.1 mg/dL (NEG) 8.5 - 10.2 mg/dL 01-02-2020 PENDI NG LOCATION [Mass/Vol] 13:35-0400 [facility] ([id number]) Chloride 95 mmol/L (L) 95 - 106 mmol/L 01-02-2020 [facility] G LOCATION [Moles/Vol] 13:35-0400 [facility] ([id number]) CO2 [Moles/Vol] 22 mmol/L (NEG) 23 - 29 mmol/L 01-02-2020 P ENDING LOCATION 13:35-0400 [facility] ([id number]) Creatinine 2.00 mg/dL (H) 01-02-2020 PENDING LOCATI ON [Mass/Vol] 13:35-0400 [facility] ([id number]) Creatinine and 33 (no code) 01-02-2020 PENDING LOC ATION Glomerular 13:35-0400 [facility] ([id number]) filtration rate.predicted panel - Serum, Plasma or Blood CRP [Mass/Vol] 6.91 (H) 01-02-2020 PENDING LOC ATION 13:35-0400 [facility] ([id number]) Eosinophils 0.1 10*3/uL (NEG) 0.05 - 0.5 01-02-2020 PENDING LOCATION (Bld) [#/Vol] 10*3/uL 13:35-0400 [facility] ([id number]) Eosinophils/100 1 % (NEG) 1 - 4 % 01-02-2020 [facility] LOCATION WBC (Bld) 13:35-0400 [facility] ([id number]) Erythrocyte 14.9 % (H) 11.6 - 14.6 % 01-02-2020 [facility] LOCATION distribution 13:35-0400 [facility] ([id number]) width (RBC) [Ratio] Hematocrit (Bld) 32 % (L) 36.1 - 50.3 % 01-02-2020 P ENDING LOCATION [Volume 13:35-0400 [facility] ([id number]) fraction] Hemoglobin (Bld) 11.0 g/dL (L) 12.1 - 17.2 g/dL 01-02-2020 PENDING LOCATION [Mass/Vol] 13:35-0400 [facility] ([id number]) INR Coag 1.2 (NEG) 01-02-2020 PENDING LOCATI ON (Platelet poor 13:35-0400 [facility] ([id number]) plasma or blood) [Relative time] Lymphocytes 0.9 10*3/uL (L) 0.9 - 2.9 01-02-2020 PENDING LOCATION (Bld) [#/Vol] 10*3/uL 13:35-0400 [facility] ([id number]) Lymphocytes/100 14 % (NEG) 20 - 40 % 01-02-2020 PENDIN G LOCATION WBC (Bld) 13:35-0400 [facility] ([id number]) MCH (RBC) 29 pg (NEG) 27 - 31 pg 01-02-2020 PENDING LOC ATION [Entitic mass] 13:35-0400 [facility] ([id number]) MCHC (RBC) 35 g/dL (NEG) 32 - 36 g/dL 01-02-2020 PENDING LOCATION [Mass/Vol] 13:35-0400 [facility] ([id number]) MCV (RBC) 83 (NEG) 01-02-2020 PENDING LOCATI ON [Entitic vol] 13:35-0400 [facility] ([id number]) Monocytes (Bld) 0.6 10*3/uL (NEG) 0.3 - 0.9 01-02-2020 PEND ING LOCATION [#/Vol] 10*3/uL 13:35-0400 [facility] ([id number]) Monocytes/100 10 % (NEG) 2 - 8 % 01-02-2020 PENDING LOCATION WBC (Bld) 13:35-0400 [facility] ([id number]) Natriuretic 228.9 pg/mL (H) 0 - 100 pg/mL 01-02-2020 PEND ING LOCATION peptide B (Bld) 13:35-0400 [facility] ([id number]) [Mass/Vol] Neutrophils 5.0 10*3/uL (NEG) 1.7 - 7 10*3/uL 01-02-2020 [facility] NDING LOCATION (Bld) [#/Vol] 13:35-0400 [facility] ([id number]) Neutrophils/100 75 % (NEG) 40 - 60 % 01-02-2020 PENDIN G LOCATION WBC (Bld) 13:35-0400 [facility] ([id number]) Platelet mean 10.6 (H) 01-02-2020 PENDING LOCA TION volume (Bld) 13:35-0400 [facility] ([id number]) [Entitic vol] Platelets (Bld) 112 10*3/uL (L) 150 - 450 01-02-2020 PEND ING LOCATION [#/Vol] 10*3/uL 13:35-0400 [facility] (04584) Potassium 4.5 mmol/L (NEG) 3.7 - 5.2 mmol/L 01-02-2020 PEND ING LOCATION [Moles/Vol] 13:35-0400 [facility] ([id number]) Protein 6.6 g/dL (NEG) 6.4 - 8.3 g/dL 01-02-2020 PENDING LOCATION [Mass/Vol] 13:35-0400 [facility] ([id number]) PT Coag (PPP) 15.4 s (H) 9.4 - 12.5 s 01-02-2020 PENDI NG LOCATION [Time] 13:35-0400 [facility] ([id number]) RBC (Bld) 3.83 10*6/uL (L) 4.2 - 6.1 01-02-2020 PENDING L OCATION [#/Vol] 10*6/uL 13:35-0400 [facility] ([id number]) Sodium 127 mmol/L (L) 135 - 145 mmol/L 01-02-2020 PEND ING LOCATION [Moles/Vol] 13:35-0400 [facility] ([id number]) WBC (Bld) 6.7 10*3/uL (NEG) 3.5 - 10.5 01-02-2020 PENDING L OCATION [#/Vol] 10*3/uL 13:35-0400 [facility] ([id number]) laboratory on 2019-04-19 INR Coag 2.3 (no code) 04-19-2019 Hospital (Platelet poor 14:100400 [facility] plasma or blood) [facility] [Relative time] ([id number]) PT Coag (PPP) 27.4 s (H) 9.4 - 12.5 s 04-19-2019 Hospi shannan [Time] 14:100400 [facility] ([id number]) laboratory on 2019-03-31 INR Coag 1.3 (no code) 03-31-2019 Hospital (Platelet poor 11:400400 [facility] plasma or blood) [facility] [Relative time] ([id number]) PT Coag (PPP) 14.7 s (H) 9.4 - 12.5 s 03-31-2019 Hospi shannan [Time] 11:400400 [facility] ([id number]) laboratory on 2019-03-22 INR Coag 1.2 (no code) 03-22-2019 Hospital (Platelet poor 12:20-0400 [facility] plasma or blood) [facility] [Relative time] ([id number]) PT Coag (PPP) 13.5 s (H) 9.4 - 12.5 s 03-22-2019 Hospi shannan [Time] 12:20-0400 [facility] ([id number]) capillary blood glucose measurement by glucometer (mass/volume) on 2018-04-08 Glucose mass 336 mg/dL (H) 60 - 125 mg/dL Via [facility] (23265) venous blood hemoglobin measurement (mass/volume) on 2018-04-07 Hemoglobin mass 12.4 g/dL (L) 12.1 - 17.2 g/dL Via [facility] () serum or plasma urea nitrogen/creatin ine mass ratio on 2018-04-07 Urea 20 mg/mg (no code) 6 - 22 mg/mg Via [facility] nitrogen/Creatin Hospital ine mass ratio [place] ([address]271) serum or plasma urea nitrogen measurement (mass/volume) on 2018-04-07 Urea nitrogen 26 mg/dL (H) 7 - 20 mg/dL Via [facility] ([id number]) serum or plasma sodium measurement (moles/volume) on 2018-04-07 Sodium molar 135 mmol/L (no code) 135 - 145 mmol/L Via [facility] isti [facility] () serum or plasma potassium measurement (moles/volume) on 2018-04-07 Potassium molar 4.4 mmol/L (no code) 3.7 - 5.2 mmol/L Via [facility] (77570) serum or plasma glucose measurement (mass/volume) on 2018-04-07 Glucose mass 279 mg/dL (H) 60 - 125 mg/dL Via [facility] () serum or plasma creatinine measurement with calculation of estimated glomerular filtration rate on 2018-04-07 GFR/1.73 sq M 54 (no code) 90 - 120 Via [facility] predicted among mL/min/{1.73_m2} mL/min/{1.73_m2} [facility] rate/area () (S/P/Bld) serum or plasma creatinine measurement (mass/volume) on 2018-04-07 Creatinine mass 1.33 mg/dL (H) Via [facility] () serum or plasma chloride measurement (moles/volume) on 2018-04-07 Chloride molar 103 mmol/L (no code) 95 - 106 mmol/L Via [facility] (35332) serum or plasma calcium measurement (mass/volume) on 2018-04-07 Calcium mass 9.2 mg/dL (no code) 8.5 - 10.2 mg/dL Via [facility] (40367) serum or plasma anion gap determination (moles/volume) on 2018-04-07 Anion gap 3 11 mmol/L (no code) 3 - 11 mmol/L Via [facility] () carbon dioxide on 2018-04-07 CO2 molar conc 21 mmol/L (no code) 23 - 29 mmol/L Via [facility] () blood neutrophils automated count (number/volume) on 2018-04-07 Neutrophils Auto 4.0 10*3/uL (no code) 1.7 - 7 10*3/uL Via [facility] #/vol (Bld) [facility] (84451) blood monocytes/100 leukocytes on 2018-04-07 Monocytes/100 12 % (no code) 2 - 8 % Via [facility] WBC Auto (Bld) [facility] () blood monocytes automated count (number/volume) on 2018-04-07 Monocytes Auto 0.8 10*3/uL (no code) 0.3 - 0.9 Via [facility] #/vol (Bld) 10*3/uL [facility] ([id number]) blood lymphocytes automated count (number/volume) on 2018-04-07 Lymphocytes Auto 1.6 10*3/uL (no code) 0.9 - 2.9 Via [facility] ti #/vol (Bld) 10*3/uL [facility] () blood leukocytes automated count (number/volume) on 2018-04-07 WBC Auto #/vol 6.4 10*3/uL (no code) 3.5 - 10.5 Via [facility] (Bld) 10*3/uL [facility] (35375) blood hematocrit (volume fraction) on 2018-04-07 Hematocrit Auto 35 % (L) 36.1 - 50.3 % Via [facility] (Bld) [place] ([id number]) blood erythrocytes automated count (number/volume) on 2018-04-07 RBC Auto #/vol 3.89 10*6/uL (L) 4.2 - 6.1 Via [facility] i (Bld) 10*6/uL [facility] (86592) automated erythrocyte mean corpuscular volume on 2018-04-07 MCV Auto Entitic 89 fL (no code) 80 - 100 fL Via Chri sti volume (RBC) [facility] (41192) automated erythrocyte mean corpuscular hemoglobin concentration measurement (mass/volume) on 2018-04-07 MCHC Auto mass 36 g/dL (no code) 32 - 36 g/dL Via [facility] ti conc (RBC) [facility] (68523) automated erythrocyte mean corpuscular hemoglobin (mass per erythrocyte) on 2018-04-07 MCH Auto Entitic 32 pg (no code) 27 - 31 pg Via [facility] ti mass (RBC) [facility] (94517) automated erythrocyte distribution width ratio on 2018-04-07 Erythrocyte 15.4 % (H) 11.6 - 14.6 % Via [facility] distribution Hospital width Auto Ratio [place] (RBC) ([id number]) automated eosinophil count on 2018-04-07 Eosinophils Auto 0.1 10*3/uL (no code) 0.05 - 0.5 Via [facility] ti #/vol (Bld) 10*3/uL [facility] (79074) automated blood platelet mean volume measurement on 2018-04-07 Platelet mean 10.7 fL (H) 7.2 - 11.7 fL Via [facility] ti volume Auto Hospital Entitic volume [place] (Bld) (54086) automated blood platelet count (count/volume) on 2018-04-07 Platelets Auto 135 10*3/uL (no code) 150 - 450 Via [facility] #/vol (Bld) 10*3/uL [facility] (54500) automated blood neutrophils/100 leukocytes on 2018-04-07 Neutrophils/100 62 % (no code) 40 - 60 % [facility] i WBC Auto (Bld) [facility] (65381) automated blood lymphocytes/100 leukocytes on 2018-04-07 Lymphocytes/100 25 % (no code) 20 - 40 % [facility] i WBC Auto (Bld) [facility] (76660) automated blood eosinophils/100 leukocytes on 2018-04-07 Eosinophils/100 2 % (no code) 1 - 4 % Via [facility] WBC Auto ([facility]) [facility] () automated blood basophils/100 leukocytes on 2018-04-07 Basophils/100 0 % (no code) 0.5 - 1 % Via [facility] WBC Auto ([facility]) [facility] (06523) automated blood basophil count (count/volume) on 2018-04-07 Basophils Auto 0.0 10*3/uL (no code) 0 - 0.3 10*3/uL Via [facility] #/vol (d) [facility] (17327) serum or plasma total bilirubin measurement (mass/volume) on 2018-04-06 Bilirubin mass 1.0 mg/dL (no code) 0.1 - 1.2 mg/dL Via [facility] (17761) serum or plasma protein measurement (mass/volume) on 2018-04-06 Protein mass 6.4 g/dL (no code) 6.4 - 8.3 g/dL Via [facility] (60479) serum or plasma aspartate aminotransferase measurement (enzymatic activity/volume) on 2018-04-06 AST enzyme 14 U/L (no code) 10 - 34 U/L Via [facility] act/[facility] (30613) serum or plasma alkaline phosphatase measurement (enzymatic activity/volume) on 2018-04-06 ALP enzyme 68 U/L (no code) 44 - 147 U/L Via [facility] (90381) serum or plasma albumin measurement (mass/volume) on 2018-04-06 Albumin mass 3.7 g/dL (no code) 3.4 - 5.4 g/dL Via [facility] (95464) serum or plasma alanine aminotransferase measurement (enzymatic activity/volume) on 2018-04-06 ALT enzyme 24 U/L (no code) 4 - 40 U/L Via [facility] (02260) calcium measurement corrected for albumin on 2018-04-06 Calcium mass 9.1 mg/dL (no code) 8.5 - 10.2 mg/dL Via [facility] (87273) urine urobilinogen measurement by automated test strip (mass/volume) on 2018-04-05 Urobilinogen NORMAL (no code) Via [facility] Test strip Qn [facility] ([facility] ([id number]) urine total bilirubin detection by test strip on 2018-04-05 Bilirubin Ql (U) Negative (no code) Via [facility] () urine protein assay by test strip, semi-quantitativ e on 2018-04-05 Protein Test 3+ (*) Via [facility] strip ([facility] () urine ph measurement by test strip on 2018-04-05 pH Test strip 5 [pH] (no code) 4.6 - 8 [pH] Via [facility] ([facility] () urine nitrite detection by test strip on 2018-04-05 Nitrite Test Negative (no code) Via [facility] strip [facility] (94344) urine ketones detection by automated test strip on 2018-04-05 Ketones 1+ (*) Via [facility] Automated test Hospital strip ([facility] (56691) urine glucose detection by automated test strip on 2018-04-05 Glucose 4+ (*) Via [facility] Automated test Hospital strip ([facility] ([id number]) urine color determination on 2018-04-05 Color Nom (U) YELLOW (no code) Via [facility] (28058) urine clarity determination on 2018-04-05 Clarity Nom (U) CLEAR (no code) Via [facility] () squamous epithelial cells detection in urine sediment by light microscopy on 2018-04-05 Epithelial no information (no code) Via [facility] cells.[facility] LM Ql (Urine [place] sed) ([id number]) specific gravity of urine by test strip on 2018-04-05 Specific gravity 1.020 (no code) Via [facility] Relative Density [facility] (05774) serum or plasma lactate measurement (moles/volume) on 2018-04-05 Lactate molar 1.68 mmol/L (no code) 0.5 - 2.2 mmol/L Via risti conc [facility] (09314) serum or plasma c reactive protein measurement (mass/volume) on 2018-04-05 CRP mass conc 4.06 mg/L (H) 0 - 8 mg/L Via [facility] () prothrombin time (pt) in platelet poor plasma by coagulation assay on 2018-04-05 Prothrombin time 14.1 s (no code) 9.4 - 12.5 s Via [facility] isti (PT) Coag time [facility] (PPP) [place] ([id number]) mucus detection in urine sediment by light microscopy on 2018-04-05 Mucus LM Ql Negative (no code) Via [facility] (Urine sed) [facility] (60534) lipase on 2018-04-05 Lipase enzyme 35 U/L (no code) 10 - 73 U/L Via [facility] act/vol [facility] (35894) leukocyte esterase on 2018-04-05 Leukocyte 1+ (*) Via [facility] esterase Test Hospital strip Ql (U) [place] ([id number]) inr in platelet poor plasma or blood by coagulation assay on 2018-04-05 INR Coag RelTime 1.1 (no code) Via [facility] (Platelet poor Hospital plasma or blood) [place] ([id number]) erythrocytes detection in urine sediment by light microscopy on 2018-04-05 RBC LM Ql (Urine Negative (no code) Via [facility] sed) [facility] (25738) crystals detection in urine sediment by light microscopy on 2018-04-05 Crystals LM Ql PRESENT (*) Via [facility] (Urine sed) [facility] (12850) complete urinalysis with reflex to culture on 2018-04-05 Complete NO (no code) Via [facility] urinalysis with Hospital reflex to [place] culture ([id number]) casts detection in urine sediment by light microscopy on 2018-04-05 Casts LM Ql NONE (no code) Via [facility] (Urine sed) [facility] (74773) blood lactic acid measurement (moles/volume) on 2018-04-05 Lactate molar 2.34 mmol/L (CH) 0.5 - 2.2 mmol/L Via risti conc [facility] (84072) bacterial urine culture on 2018-04-05 Bacteria NO GROWTH (no code) Via [facility] identified Hospital Nom (U) [place] ([id number]) bacterial blood culture on 2018-04-05 Bacteria No growth (no code) Via [facility] identified Hospital Nom (Bld) [place] (75898) bacteria detection in urine sediment by light microscopy on 2018-04-05 Bacteria LM Ql NONE (no code) Via [facility] (Urine sed) [facility] (30757) automated urine sediment leukocyte count by microscopy (number/high power field) on 2018-04-05 WBC LM.HPF no information (no code) Via [facility] #/area (Urine [facility]) [place] ([id number]) automated urine sediment erythrocyte count by microscopy (number/high power field) on 2018-04-05 RBC LM.HPF NONE (no code) Via [facility] #/area (Urine [facility]) [place] ([id number]) amorphous sediment detection in urine sediment by light microscopy on 2018-04-05 Amorphous MOD FRANCIS URATES (*) [facility] sediment [facility] ([facility] (09034) activated partial thromboplastin time (aptt) in platelet poor plasma bycoagulation assay on 2018-04-05 aPTT Coag time 27 s (no code) 25 - 35 s [facility] (19436) venous blood hemoglobin measurement (mass/volume) on 2018-02-09 Hemoglobin (HGB) 15.4 g/dL (no code) 12 - 18 g/dL Via [facility] (80269) urine urobilinogen measurement by automated test strip (mass/volume) on 2018-02-09 Urine, NORMAL (no code) [facility]42533[facility] urine total bilirubin detection by test strip on 2018-02-09 Urine, bilirubin Negative (no code) Via [facility] (21383) urine protein assay by test strip, semi-quantitativ e on 2018-02-09 Urine, protein 3+ (*) Via [facility] (37485) urine ph measurement by test strip on 2018-02-09 Urine, pH 6 [pH] (no code) 4.6 - 8 [pH] Via [facility] (17041) urine nitrite detection by test strip on 2018-02-09 Urine, nitrite Negative (no code) Via [facility] (17821) urine ketones detection by automated test strip on 2018-02-09 Urine, ketones 3+ (*) Via [facility] (25630) urine glucose detection by automated test strip on 2018-02-09 Urine, glucose 4+ (*) Via [facility] (20089) urine color determination on 2018-02-09 Urine, color YELLOW (no code) Via [facility] (18274) urine clarity determination on 2018-02-09 Urine, clarity CLEAR (no code) Via [facility] (29741) squamous epithelial cells detection in urine sediment by light microscopy on 2018-02-09 Urine, squamous NONE (no code) Via [facility] cells presence [facility] in sediment [place] (92190) specific gravity of urine by test strip on 2018-02-09 Urine, specific 1.020 (no code) Via [facility] (15544) serum or plasma urea nitrogen/creatin ine mass ratio on 2018-02-09 BUN/Creatinine 17 mg/mg (no code) 10 - 20 mg/mg Via [facility] (09678) serum or plasma urea nitrogen measurement (mass/volume) on 2018-02-09 Urea nitrogen 22 mg/dL (H) 7 - 20 mg/dL Via [facility] (45263) serum or plasma troponin i.cardiac measurement (mass/volume) on 2018-02-09 Troponin I no information (no code) Via [facility] (65583) serum or plasma total bilirubin measurement (mass/volume) on 2018-02-09 Bilirubin 1.2 mg/dL (H) 0.3 - 1.9 mg/dL Via [facility] (total) [facility] (28781) serum or plasma thyrotropin measurement by detection limit <=0.05 miu/l (units/volume) on 2018-02-09 Thyroid 1.93 m[IU]/L (no code) 0.4 - 4 m[IU]/L Via [facility] hormone (TSH) [place] (15266) serum or plasma sodium measurement (moles/volume) on 2018-02-09 Sodium 137 mmol/L (no code) 135 - 147 mmol/L Via [facility] (62469) serum or plasma protein measurement (mass/volume) on 2018-02-09 Protein 7.4 g/dL (no code) 6.4 - 8.3 g/dL Via [facility] (08047) serum or plasma potassium measurement (moles/volume) on 2018-02-09 Potassium 4.1 mmol/L (no code) 3.5 - 5.1 mmol/L Via [facility] (20098) serum or plasma glucose measurement (mass/volume) on 2018-02-09 Glucose 251 mg/dL (H) 60 - 125 mg/dL Via [facility] (98396) serum or plasma creatinine measurement with calculation of estimated glomerular filtration rate on 2018-02-09 eGFR (non-black) 54 (no code) 90 - [id number] Via [facility] isti mL/min/{1.73_m2} mL/min/{1.73_m2} [facility] (50228) serum or plasma creatinine measurement (mass/volume) on 2018-02-09 Creatinine 1.32 mg/dL (H) Via [facility] (07717) serum or plasma chloride measurement (moles/volume) on 2018-02-09 Chloride 103 mmol/L (no code) 95 - 106 mmol/L Via [facility] (29940) serum or plasma calcium measurement (mass/volume) on 2018-02-09 Calcium 9.9 mg/dL (no code) 9 - 11 mg/dL Via [facility] (42721) serum or plasma aspartate aminotransferase measurement (enzymatic activity/volume) on 2018-02-09 Aspartate 28 U/L (no code) 10 - 34 U/L Via [facility] ([facility]) [place] (45002) serum or plasma anion gap determination (moles/volume) on 2018-02-09 Anion gap 14 mmol/L (no code) 3 - 11 mmol/L Via [facility] (05920) serum or plasma amylase measurement (enzymatic activity/volume) on 2018-02-09 Amylase 24 U/L (L) 23 - 85 U/L [facility] ([id number]) serum or plasma alkaline phosphatase measurement (enzymatic activity/volume) on 2018-02-09 Alkaline 77 U/L (no code) 44 - 147 U/L [facility] phosphatase [facility] (ALP) [place] ([id number]) serum or plasma albumin measurement (mass/volume) on 2018-02-09 Albumin 4.3 g/dL (no code) 3.5 - 5.5 g/dL Via [facility] ([id number]) serum or plasma alanine aminotransferase measurement (enzymatic activity/volume) on 2018-02-09 Alanine 39 U/L (no code) 10 - 40 U/L [facility] aminotransferase [facility] (ALT) [place] ([id number]) serum or plasma acetaminophen measurement (mass/volume) on 2018-02-09 Serum or plasma no information (L) [facility] acetaminophen [facility] measurement [place] (mass/volume) ([id number]) prothrombin time (pt) in platelet poor plasma by coagulation assay on 2018-02-09 Coagulation 13.4 s (no code) [facility] tissue factor [facility] induced in [place] platelet poor ([id number]) plasma myoglobin, serum on 2018-02-09 Myoglobin 82.7 ng/mL (no code) [facility] ([id number]) mucus detection in urine sediment by light microscopy on 2018-02-09 Urine, mucus Negative (no code) Via [facility] ([id number]) magnesium on 2018-02-09 Magnesium 2.3 mg/dL (no code) 1.8 - 3.6 mg/dL Via [facility] ([id number]) lipase on 2018-02-09 Lipase 30 U/L (no code) 23 - 300 U/L [facility] ([id number]) leukocyte esterase on 2018-02-09 Urine, leukocyte 1+ (*) [facility] esterase [facility] ([id number]) inr in platelet poor plasma or blood by coagulation assay on 2018-02-09 INR in blood by 1.0 {INR} (no code) 0.9 - 1.1 {INR} Via [facility] coagulation [facility] ([id number]) erythrocytes detection in urine sediment by light microscopy on 2018-02-09 Urine, Negative (no code) [facility] erythrocytes [facility] ([id number]) crystals detection in urine sediment by light microscopy on 2018-02-09 Urine, crystals NONE (no code) [facility] ([id number]) complete urinalysis with reflex to culture on 2018-02-09 Complete NO (no code) [facility] urinalysis with Hospital reflex to [place] culture ([id number]) casts detection in urine sediment by light microscopy on 2018-02-09 Urine, casts in NONE (no code) Via [facility] ([id number]) carbon dioxide on 2018-02-09 CO2 20 mmol/L (L) 23 - 29 mmol/L Via [facility] ([id number]) blood neutrophils automated count (number/volume) on 2018-02-09 Neutrophils 5.4 10*3/uL (no code) 1.5 - 7.8 [facility] 10*3/uL [facility] ([id number]) blood monocytes/100 leukocytes on 2018-02-09 Monocytes/100 9 % (no code) 2 - 8 % [facility] leukocytes [facility] ([id number]) blood monocytes automated count (number/volume) on 2018-02-09 Monocytes 0.7 10*3/uL (no code) 0.2 - 1.1 [facility] 10*3/uL [facility] ([id number]) blood lymphocytes automated count (number/volume) on 2018-02-09 Lymphocytes 1.8 10*3/uL (no code) 0.85 - 4.1 [facility] 10*3/uL [facility] ([id number]) blood leukocytes automated count (number/volume) on 2018-02-09 WBC (Leukocytes) 8.1 10*3/uL (no code) 3.8 - 10.8 Via [facility] 10*3/uL [facility] ([id number]) blood hematocrit (volume fraction) on 2018-02-09 Hematocrit (HCT) 43 % (no code) 39 - 51 % Via [facility] ([id number]) blood erythrocytes automated count (number/volume) on 2018-02-09 Erythrocytes 4.93 10*6/uL (no code) 4.2 - 6.1 [facility] (RBC) 10*6/uL [facility] ([id number]) bacteria detection in urine sediment by light microscopy on 2018-02-09 Urine, bacteria FEW (*) [facility] in sediment [facility] ([id number]) automated urine sediment leukocyte count by microscopy (number/high power field) on 2018-02-09 Urine, RARE (no code) [facility] leukocytes in [facility] ([id number]) automated urine sediment erythrocyte count by microscopy (number/high power field) on 2018-02-09 Urine, NONE (no code) [facility] erythrocytes in [facility] sediment [facility] ([id number]) automated erythrocyte mean corpuscular volume on 2018-02-09 MCV 87 fL (no code) 80 - 100 fL [facility] ([id number]) automated erythrocyte mean corpuscular hemoglobin concentration measurement (mass/volume) on 2018-02-09 MCHC 36 g/dL (no code) 32 - 36 g/dL [facility] ([id number]) automated erythrocyte mean corpuscular hemoglobin (mass per erythrocyte) on 2018-02-09 MCH 31 pg (no code) 27 - 31 pg [facility] ([id number]) automated erythrocyte distribution width ratio on 2018-02-09 RDW-CA 15.3 % (H) 11 - 15 % [facility] ([id number]) automated eosinophil count on 2018-02-09 Eosinophils 0.1 10*3/uL (no code) 0.05 - 1.5 [facility] 10*3/uL [facility] ([id number]) automated blood platelet mean volume measurement on 2018-02-09 Platelet mean 10.5 fL (H) 7.2 - 11.7 fL Via [facility] volume (PMV) [facility] ([id number]) automated blood platelet count (count/volume) on 2018-02-09 Platelets 157 10*3/uL (no code) 150 - 400 [facility] 10*3/uL [facility] ([id number]) automated blood neutrophils/100 leukocytes on 2018-02-09 Neutrophils/100 67 % (no code) 40 - 60 % Via [facility] leukocytes [facility] ([id number]) automated blood lymphocytes/100 leukocytes on 2018-02-09 Lymphocytes/100 22 % (no code) 20 - 40 % Via [facility] ([id number]) automated blood eosinophils/100 leukocytes on 2018-02-09 Eosinophils/100 1 % (no code) 1 - 4 % Via [facility] ([id number]) automated blood basophils/100 leukocytes on 2018-02-09 Basophils/100 0 % (no code) 0.5 - 1 % [facility] ([id number]) automated blood basophil count (count/volume) on 2018-02-09 Basophils 0.0 10*3/uL (no code) 0 - 0.2 10*3/uL Via [facility] ([id number]) activated partial thromboplastin time (aptt) in platelet poor plasma bycoagulation assay on 2018-02-09 aPTT 28 s (no code) 25 - 35 s [facility] ([id number]) Vital Signs The data below is from unstructured sources Vital Response Date/Time Temperature (Fahrenheit) 97.0 degree s F (97.6 - 99.5) 11/13/2016 10:30am Temperature (Calculated Celsius) 36. 06791 degrees C (36.4 - 37.5) 11/13/2016 8:16am [...] inches 11/10/2016 2:00pm Height (Calculated Centimeters) 180. 589614 cm 11/10/2016 2:00pm Weight (Pounds) 350 pounds 11/10/2016 2:00pm Weight (Ounces) 0.0 oz 0 11/10/2016 2:00pm Weight (Calculated Grams) 892492.33 gm 11/10/2016 2:00pm Weight (Calculated Kilograms) 158.75 7331 kilograms 11/10/2016 2:00pm Calculated BMI 48.8 10/31 2:00pm Capillary Refill Capillary Refill Less Than 3 Seconds 11/10/2016 9:44am Vital Response Date/Time Temperature (Fahrenheit) 97.9 degree s F (97.6 - 99.5) 11/18/2016 12:36pm Temperature (Calculated Celsius) 36. 41039 degrees C (36.4 - 37.5) 11/18/2016 5:09am [...] inches 11/13/2016 10:32pm Height (Calculated Centimeters) 180. 623375 cm 11/13/2016 10:32pm Weight (Pounds) 350 pounds 11/18/2016 5:13am Weight (Ounces) 0.0 oz 0 11/13/2016 10:32pm Weight (Calculated Grams) 505970.331 gm 11/18/2016 5:13am Weight (Calculated Kilograms) 158.75 7331 kilograms 11/18/2016 5:13am Calculated BMI 48.8 10/31 10:32pm Capillary Refill Capillary Refill Less Than 3 Seconds 11/10/2016 9:44am Vital Response Date/Time Temperature (Fahrenheit) 97.8 degree s F (97.6 - 99.5) 08/07/2015 1:55pm Temperature (Calculated Celsius) 36. 99300 degrees C (36.4 - 37.5) 08/07/2015 1:55pm [...] inches 08/07/2015 7:23am Height (Calculated Centimeters) 182. 914885 cm 08/07/2015 7:23am Weight (Pounds) 345 pounds 08/07/2015 7:23am Weight (Calculated Grams) 150408.369 gm 08/07/2015 7:23am Weight (Calculated Kilograms) 156.48 9369 kilograms 08/07/2015 7:23am Calculated BMI 46.78 01/2016 7:23am Vital Response Date/Time Temperature (Fahrenheit) 97.8 degree s F (97.6 - 99.5) Temperature (Calculated Celsius) 36. 19271 degrees C (36.4 - 37.5) Temperature Source Tympanic Pulse Rate (adult) 63 bpm (60 - 90) Respiratory Rate 20 bpm (12 - 24) O2 Sat by Pulse Oximetry 96 % (88 - 100) Blood Pressure 130/83 mm Hg Pain Pain Intensity 0 Height (Feet) 6 feet Height (Inches) 0.00 inches Height (Calculated Centimeters) 182. 070237 cm Weight (Pounds) 335 pounds Weight (Ounces) 0.5 oz Weight (Calculated Grams) 817340.620 gm Weight (Calculated Kilograms) 151.96 7620 kilograms Calculated BMI 45.43 Vital Response Date/Time Temperature (Fahrenheit) 98.0 degree s F (97.6 - 99.5) 02/09/2018 2:37pm Temperature (Calculated Celsius) 36. 80174 degrees C (36.4 - 37.5) 02/09/2018 2:37pm [...] feet 06/2018 2:37pm Height (Calculated Centimeters) 182. 041193 cm 02/09/2018 2:37pm Weight (Pounds) 342 pounds 02/09/2018 2:37pm Weight (Calculated Grams) 315568.59 gm 02/09/2018 2:37pm Weight (Calculated Kilograms) 155.12 8592 kilograms 02/09/2018 2:37pm Weight Method Stated 06/2018 2:37pm Capillary Refill Capillary Refill Less Than 3 Seconds 02/09/2018 2:37pm Height 6 ft 0 in 018 2:37pm Weight 342 lb 02/09/2018 2:37pm Body Mass Index 46.4 kg/m^2 02/09/2018 2:37pm Vital Response Date/Time Temperature (Fahrenheit) 97.5 degree s F (97.6 - 99.5) 04/08/2018 8:00am Temperature (Calculated Celsius) 36. 20103 degrees C (36.4 - 37.5) 04/08/2018 8:00am [...] inches 04/06/2018 12:45am Height (Calculated Centimeters) 182. 686404 cm 04/06/2018 12:45am Height Method Stated 10/2017 3:44pm Weight (Pounds) 330 pounds 04/06/2018 12:45am Weight (Ounces) 0.0 oz 0 04/06/2018 12:45am Weight (Calculated Grams) 143665.48 gm 04/06/2018 12:45am Weight (Calculated Kilograms) 149.68 5484 kilograms 04/06/2018 12:45am Calculated BMI 44.8 11/2017 12:45am Weight Method Stated 10/2017 3:44pm Weight Measurement Method [facility] 04/06/2018 12:45am Capillary Refill Capillary Refill Less Than 3 Seconds 04/07/2018 8:45pm Vital Response Date/Time Temperature (Fahrenheit) 97.5 degree s F (97.6 - 99.5) 04/08/2018 8:00am Temperature (Calculated Celsius) 36. 39116 degrees C (36.4 - 37.5) 04/08/2018 8:00am [...] inches 04/06/2018 12:45am Height (Calculated Centimeters) 182. 761478 cm 04/06/2018 12:45am Height Method Stated 10/2017 3:44pm Weight (Pounds) 330 pounds 04/06/2018 12:45am Weight (Ounces) 0.0 oz 0 04/06/2018 12:45am Weight (Calculated Grams) 394274.48 gm 04/06/2018 12:45am Weight (Calculated Kilograms) 149.68 5484 kilograms 04/06/2018 12:45am Calculated BMI 44.8 11/2017 12:45am Weight Method Stated 10/2017 3:44pm Weight Measurement Method Built in [facility] 04/06/2018 12:45am Capillary Refill Capillary Refill Less [...] GIL KAHN DO (Uns pecified) 02/11/15 Address: [address] [place] [address] [place] [address] Reason(s) for Referral: AT 11:00 AM CALL AND RESCHEDULE IF UNABLE TO KEEP APPOINTMENT DR KAHN WILL MAKE THE APPOINTMENT FOR THE REFERRAL FOR [facility] Discharge Date 02/09/18 6:46pm Disposition 02 XFER SHT-TRM HOSP Condition at Discharge Improved Prescriptions See Medication Section Referrals GIL KAHN DO Order Date: Primary Care Physician Address: [address] [place] [id number] Discharge Date 04/08/18 10:00am Disposition 62 DISC/XFER [...] November 18, 2016 9:00am Query Response Date Andre rded Patient Orientation [...] [facility] (no phone) [facility] (no phone) 10-11-2019 Emergency department no information PRIMO MEJÍA (no [facility] patient visit phone) [facility] (no phone) 12-16-2018 Emergency department no information [...] [facility] - management of phone) [facility] 10-13-2019 inpatient (no phone) 10-11-2019 Evaluation and no information ANTONIO MICHAELS MD (no [facility] - management of phone) [facility] 10-13-2019 inpatient (no phone) 12-16-2018 Evaluation and [...] MICHAELS MD (no [facility] - procedure phone) [facility] 10-13-2019 (no phone) 08-31-2019 Patient encounter no information ODILON ALEXANDER (no [facility] - procedure phone) [facility] 08-31-2019 (no phone) 08-29-2019 Patient encounter no [...] Directives No 7:24am Health Care Power of [place] No 08/07/15 7:24am Organ Donor Yes 08/07/15 7:24am Directive Response Recor ded Date/Time Advance Directives No 2:00pm Health Care Power of [place] [place] No 11/10/16 2:00pm Organ Donor Yes 11/10/16 2:00pm Resuscitation Status Full Code 11/10/16 2:00pm Directive Response Recor ded Date/Time Advance Directives No 12:20pm Health Care Power of [place] [place] No 11/13/16 12:20pm Organ Donor Yes 11/13/16 12:20pm Resuscitation Status Full Code 11/13/16 12:20pm Directive Response Recor ded Date/Time Advance Directives No 7:24am Health Care Power of [place] [place] No 08/07/15 7:24am Organ Donor Yes 08/07/15 7:24am Resuscitation Status Full Code 08/07/15 7:24am Directive Response Recor ded Date/Time Advance Directives No 7:30pm Health Care Power of [place] [place] No 01/23/15 7:30pm Organ Donor Yes 01/23/15 7:30pm Resuscitation Status Full Code 01/23/15 7:30pm Directive Response Recor ded Date/Time Advance Directives No 3:39pm Health Care Power of [place] [place] No 02/09/18 3:39pm Organ Donor Yes 02/09/18 3:39pm Resuscitation Status Full Code 02/09/18 3:39pm Directive Response Recor ded Date/Time Advance Directives No 11:45pm Health Care Power of [place] [place] No 04/05/18 11:45pm Organ Donor Yes 04/05/18 [...] weeks. Call for appointment. [facility]. [facility]. Activity as Tolerated: Yes Discharge Diet: ADA Diet (2000 SHANTAL ADA.) Care Plan Patient Instructions:: 1. Follow up Dr. Kahn in office 2 weeks. Call for appointment.2. [facility]. No hospital discharge instruction information [...] This clinical document has been generated using [employer] software that has been certified by the Office of the National Coordinator for Health Information Technology (ONC 15.99.04.3023.Diam.[id number]) and the National Committee for Vocational Training Director (NCQA, as an eMeasure certified technology). FOR [...] BASED ON T HE PRIMARY CLINICAL RECORDS. [employer] [facility]. provides no warranty or guara ntee of the accuracy or completeness of information in this document.The followi ng information is based on time limited clinical information
--- OUTSIDE RECORDS SUMMARY | 2020-01-02 20:28 | XMS REPORT | Continuity of Care Document ---
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 MICHAELS MD, Ot I25. [...] 10/13/2019 ANTONIO MICHAELS MD, Ot Z79. 01 LONGTERM (CURRENT) USE OF ANTICOAGULANT 10/13/2019 ANTONIO MICHAELS MD, Ot Z79. 82 FINANCIAL SOLUTIONS ADVISOR (CURRENT) USE OF ASPIRIN 10/13/2019 ANTONIO MICHAELS MD, Ot Z79. 84 FINANCIAL SOLUTIONS ADVISOR (CURRENT) USE OF ORAL HYPOGLYC 10/13/2019 ANTONIO MICHAELS MD, Ot Z79.891 LONGTERM (CURRENT) USE OF OPIATE ANALGE 10/13/2019 ANTONIO MICHAELS MD, Ot Z87.891 PERSONAL HISTORY OF NICOTINE DEPENDENCE 10/13/2019 ANTONIO MICHAELS MD, Ot Z88. 8 ALLERGY STATUS TO OTH DRUG/MEDS/BIOL SUB 10/13/2019 ANTONIO MICHAELS MD Ot Z95. 1 PRESENCE OF AORTOCORONARY BYPASS GRAFT 10/13/2019 ANTONIO MICHAELS MD Ot E11. 22 TYPE 2 DIABETES MELLITUS W DIABETIC RADIOLOGICAL HEALTH SPECIALIST 10/13/2019 ANTONIO MICHAELS MD, Ot E66. 9 [...] Ot I25. 10 ATHSCL HEART DISEASE OF [place] CORONARY 10/13/2019 ANTONIO MICHAELS MD, Ot I25. [...] 10/13/2019 ANTONIO MICHAELS MD, Ot Z79. 01 FINANCIAL SOLUTIONS ADVISOR (CURRENT) USE OF ANTICOAGULANT 10/13/2019 ANTONIO MICHAELS MD Ot Z79. 82 LONGTERM (CURRENT) USE OF ASPIRIN 10/13/2019 ANTONIO MICHAELS MD, Ot Z79. 84 FINANCIAL SOLUTIONS ADVISOR (CURRENT) USE OF ORAL HYPOGLYC 10/13/2019 ANTONIO MICHAELS MD, Ot Z79.891 LONGTERM (CURRENT) USE OF OPIATE ANALGE 10/13/2019 ANTONIO MICHAELS MD, Ot Z87.891 PERSONAL HISTORY OF NICOTINE DEPENDENCE 10/13/2019 ANTONIO MICHAELS MD, Ot Z88. 8 ALLERGY STATUS TO OT DRUG/MEDS/BIOL SUB 10/13/2019 ANTONIO MICHAELS MD, Ot Z95. 1 PRESENCE OF AORTOCORONARY BYPASS GRAFT Procedures Code Description Performed By Per mauro On 86.04 04/29/2012 [id number] DE TACHMENT AT RIGHT LOWER LEG, HIGH, [...] ABO+Rh group BP NR Transfusion band number [id number] NR Blood group antibody screen NEGATIVE NR [...] blood basophil count (count/volume) 0.0 10*3/uL 0.0-0.1 [id number] - 12/26/18 06:54 [id number] SPECIMEN AVAILABLE [facility] Whole blood basic metabolic panel - 12/01 [...] INFLUENZA A AND B ANTIGENS BY IA [facility] Complete blood count (CBC) with automate d [...] culture - 10/12/19 16:40 Bacterial urine culture [id number] NRG COLONY COUNT >100,000/ML NRG FTX;REPORTABLE SUSCEPTIBILITY REPORTED 10/14 11:45 NRG FREE TEXT ENTRY 2 PRELIM RAPID ID TEST AT [facility] 10/12 9:55 NRG FREE TEXT [...] Status Pt. Type Provider Facility Loc./Unit Complaint [id number] 04/19/2019 13:51:00 04/19/2019 23:59: 00 DIS Outpatient GIL KAHN [id number] 04/12/2019 12:19:00 04/12/2019 23:59: 00 DIS Outpatient GIL KAHN [id number] 03/31/2019 10:18:00 03/31/2019 23:59: 00 DIS Outpatient GIL KAHN [id number] 03/22/2019 12:05:00 03/22/2019 23:59: 00 DIS Outpatient GIL KAHN [id number] 10/11/2019 14:47:00 14:22:00 DIS Inpatient ANTONIO MICHAELS MD [facility] 4TH ORTHOPNEA, EDEMA [id number] 08/31/2019 10:07:00 15:10:00 DIS Outpatient ODILON MALONE [facility] REHAB CHONDROMALACIA L PATELL Cole S/P R BKA [id number] 08/17/2019 10:14:00 020 00:01:00 DIS Outpatient ODILON MALONE [facility] REHAB CHONDROMALACIA L CEDRIC Galvan S/P R BKA [id number] 12/16/2018 16:00:00 019 14:55:00 DIS Inpatient RENNY PAINTING MD [facility] 4TH CELLULITIS R LE G;WOUND INFECTION R FOOT [id number] 11/07/2018 04:09:00 019 07:45:00 DIS Emergency MISAEL THORNTON DO [facility] ER WEAKNESS/SOA [id number] 04/08/2018 10:10:00 018 23:59:59 CLS Inpatient ARMEN TENORIO MD [facility] IRF VERTIGO, FALLS [id number] 04/05/2018 23:13:00 018 10:00:00 DIS Inpatient CASSY PALACIO MD [facility] 4TH FEVER OF UNKNOWN SOURCE,VOMITING,SEVERE DIZZINESS [id number] 02/09/2018 14:37:00 018 18:46:00 DIS Emergency MISAEL THORNTON DO [facility] ER FALL/POSS HEAD INJURY [id number] 10/11/2017 13:32:00 018 23:59:59 CLS Outpatient GIL KAHN DO [facility] RAD TRAUMA,M79.642, M79.672 [id number] 11/13/2016 10:31:00 017 12:36:00 DIS Inpatient ARMEN TENORIO MD [facility] IRF DEBILITY [id number] 11/10/2016 12:25:00 017 10:30:00 DIS Inpatient CASSY PALACIO MD [facility] 4TH CELLULITIS KLE [id number] 07/08/2016 12:07:00 016 13:41:00 DIS Emergency PRIMO FRANCOIS APRN [facility] ER FALL/RIGHT FOOT PAIN [id number] 07/01/2016 10:00:00 23:59:59 CLS Preadmit GIL KAHN DO Terri [facility] CR ACB REDO [id number] 06/24/2016 11:09:00 00:01:00 DIS Outpatient GIL KAHN DO Terri [facility] CR ACB REDO [id number] 06/01/2016 16:44:00 23:59:59 CLS Outpatient KAHN DO, GIL Terri [facility] RAD HEADACHE,SEVERE VERTIGO [id number] 01/06/2016 16:41:00 23:59:59 CLS Outpatient JUDY CABRALES MD [facility] OSTEOMYLITIS LEFT FING ER, MSSA INFECTION [id number] 12/30/2015 14:44:00 23:59:59 CLS Outpatient JUDY CABRALES MD [facility] OSTEOMYLITIS LEFT FING ER, MSSA INFECTION [id number] 12/23/2015 16:18:00 23:59:59 CLS Outpatient JUDY CABRALES MD [facility] OSTEOMYLITIS LEFT FING ER, MSSA INFECTION [id number] 12/16/2015 13:01:00 23:59:59 CLS Outpatient JUDY CABRALES MD [facility] OSTEOMYLITIS LEFT FING ER, MSSA INFECTION [id number] 12/12/2015 11:43:00 23:59:59 CLS Outpatient JUDY CABRALES MD [facility] OSTEOMYLITIS (L) THUMB [id number] 12/09/2015 10:44:00 23:59:59 CLS Outpatient JUDY CABRALES MD [facility] OSTEOMYLITIS LT FINGER ,MSSA INFECTION [id number] 12/06/2015 10:50:00 016 12:00:00 DIS Outpatient LÓPEZ FRANCO, ELMO Chaudhry [facility] WOUNDCARE [id number] 12/02/2015 15:53:00 016 23:59:59 CLS Outpatient JUDY CABRALES MD [facility] HH OSTEOMYLITIS LEFT FING ER, MSSA INFECTION [id number] 08/07/2015 07:10:00 016 14:05:00 DIS Outpatient BARBIE ALFRED MD [facility] CATH PAD,CLAUDICATION,SHORT OF BREATH,HTN,DM,HLP [id number] 06/19/2015 11:52:00 015 23:59:59 CLS Outpatient BARBIE ALFRED MD [facility] CARD CAD,ASHLY,HTN,HLP [id number] 01/23/2015 19:06:00 015 12:32:00 DIS Inpatient GIL KAHN DO [facility] 4TH HYPONATREMIA,SC IATICA [id number] 06/13/2014 14:05:00 014 23:59:59 CLS Outpatient GIL KAHN DO [facility] RT DSYPNEA [id number] 03/07/2014 12:28:00 014 23:59:59 CLS Outpatient GIL KAHN DO [facility] RAD TRAUMATIC BRAIN INJURY,TRAUMA [id number] 06/14/2013 07:34:00 23:59:59 CLS Outpatient BARBIE ALFRED MD [facility] RAD CAD,CP,DIZZINESS [id number] 06/09/2013 09:46:00 23:59:59 CLS Outpatient BARBIE ALFRED MD [facility] CARD CAD,CP,DIZZINESS [id number] 01/02/2020 17:36:00 Document Registration [id number] 08/07/2015 07:09:00 Document Registration [id number] 04/27/2012 12:29:00 Document Registration [id number] 09/23/2011 11:18:00 Document Registration [id number] 11/26/2010 07:10:00 Document Registration [id number] 11/24/2010 07:01:00 Document Registration [id number] 11/07/2010 11:15:00 Document Registration [id number] 11/03/2010 09:00:00 Document Registration [id number] 06/26/2010 17:20:00 Document Registration [id number] 02/24/2010 06:59:00 Document Registration
[2020-01-02 20:41] VITALS: BP 138/66
[2020-01-02 20:44] VITALS: BP 138/66
[2020-01-02] MEDS ORDERED: RT-ALBUTEROL/IPRATROPIUM 3 ML (DUONEB) VIAL INH PRN (22:30)
[2020-01-02] MEDS ORDERED: NS IV 1000 ML 1,000 ML IV SCH (22:30)
[2020-01-02] MEDS ORDERED: ONDANSETRON 4 MG/2 ML (SDV) Z0FRAN IV PRN (22:30)
[2020-01-02 23:40] VITALS: BP 138/74
[2020-01-03] MEDS: RT-ALBUTEROL/IPRATROPIUM 3 ML (DUONEB) VIAL INH SCH ×5 (01:54→21:38)
[2020-01-03 04:00] VITALS: BP 128/73
[2020-01-03 05:27] LABS: BASOPHILS % (AUTO) 0 % (0-10); EOSINOPHILS # (AUTO) 0.1 10^3/uL (0.0-0.3); EOSINOPHILS % (AUTO) 2 % (0-10); HEMATOCRIT 31 % (40-54); HEMOGLOBIN 10.6 G/DL (13.3-17.7); LYMPHOCYTES # (AUTO) 1.1 X 10^3 (1.0-4.0); LYMPHOCYTES % (AUTO) 19 % (12-44); MEAN CORPUSCULAR HEMOGLOBIN 28 PG (25-34); MEAN CORPUSCULAR HGB CONC 34 G/DL (32-36); MEAN CORPUSCULAR VOLUME 84 FL (80-99); MEAN PLATELET VOLUME 10.9 FL (7.4-10.4); MONOCYTES # (AUTO) 0.4 X 10^3 (0.0-1.0); MONOCYTES % (AUTO) 8 % (0-12); NEUTROPHILS # (AUTO) 4.1 X 10^3 (1.8-7.8); NEUTROPHILS % (AUTO) 72 % (42-75); PLATELET COUNT 109 10^3/uL (130-400); RED CELL DISTRIBUTION WIDTH 15.1 % (10.0-14.5); WHITE BLOOD COUNT 5.8 10^3/uL (4.3-11.0)
[2020-01-03 05:42] LABS: ALBUMIN 3.2 GM/DL (3.2-4.5); POTASSIUM 4.3 MMOL/L (3.6-5.0)
[2020-01-03 05:44] LABS: CALCIUM 8.4 MG/DL (8.5-10.1)
[2020-01-03 05:45] LABS: TOTAL PROTEIN 6.1 GM/DL (6.4-8.2)
[2020-01-03 05:47] LABS: BILIRUBIN,TOTAL 0.6 MG/DL (0.1-1.0)
[2020-01-03 05:48] LABS: CREATININE SERUM 1.7 MG/DL (0.60-1.30)
[2020-01-03] MEDS: inSUlin ASPART (NovoLOG) 1 UNIT/0.01 ML (CHARGE PER UNIT) SC SCH ×4 (05:50→21:12)
[2020-01-03 09:00] VITALS: BP 147/70
--- NOTE | 2020-01-03 09:18 | Diagnostic Imaging Report ---
INDICATION: Left lower extremity edema. Grayscale, color-flow and duplex Doppler evaluation of the left lower extremity arterial system was performed. Scattered atherosclerotic plaque throughout the left lower extremity arterial system is noted. There is monophasic flow throughout the entire left lower extremity arterial system. Velocities are unremarkable. No occlusion is seen. IMPRESSION: Monophasic waveforms throughout the left lower extremity arterial system, perhaps owing to more proximal disease. No high-grade stenosis or occlusion is identified. Dictated by: Dictated on workstation # [id number]
[2020-01-03] MEDS ORDERED: ACETAMINOPHEN 500 MG TAB (TYLENOL) ONE (10:10)
[2020-01-03] MEDS: ACETAMINOPHEN 500 MG TAB (TYLENOL) PO PRN ×3 (10:14→18:31)
--- NOTE | 2020-01-03 10:19 | NUR ---
blood sugar 411, Dr Barraza notified, 17 units given per sliding scale, c/o back pain and leg pain, patient requesting a tylenol. order obtained for tylenol 500mg every 4 hours hours prn pain
--- NOTE | 2020-01-03 11:33 | History & Physical-Hospitalist ---
History of Present Illness HPI/Chief Complaint Pt is a 69yoCM well known to me with a PMH of CAD s/p CABG, PVD s/p BKA, IDDMII who presented to the ER after multiple falls. He states that he quite taking his insulin recently and has been very weak. He told me he fell roughly 1 month ago and had surgery to repair a broken arm. He also fell last night prompting his e valuation in the ER. I spoke to his sister who informed me that he has hadmultiple other falls. Two nights he fell and was unable to get up even with an certified registered dental assistant from [facility]. He managed to put his lift chair on his leg while he was unsupervised as well. Eventually the certified registered dental assistant was able to get him up but he refused EMS services or evaluation multiples times. He fell again yesterday and his sister was able to get him to come to the ER. He was found to have a blood sugar of 608 and he had some edema in his leg. He was admitted for weakness and falls. This morning he reports that he feels better but still quite weak. Source: patient Date Seen 01/03/20 Time Seen by a Provider: 11:[address] Horton MD PCP Referring Physician Date of Admission Jan 02, 2020 at 19:25 Home Medications & Allergies Home Medications Reviewed patient Home Medication Reconciliation performed by pharmacy medication reconciliations coating technician and/or nursing. Patients Allergies have been reviewed. Allergies Allergies Coded Allergies niacin (Unverified Allergy, Unknown, 06/26/10) rosuvastatin (Verified Allergy, Unknown, 04/20/07) fenofibrate (Unverified Adverse Reaction, Unknown, LIVER PROBLEMS, 01/23/15) Past Lnjnsmf-Xkjliq-Masuly Hx Past Med/Social Hx: Reviewed Nursing Past Med/Soc Hx Patient Social History Marrital Status: Employed/Student: unemployed Alcohol Use: Denies Use Recreational Drug Use: Yes Drug of Choice: past hx drug use. Smoking Status: Former Smoker Former Smoker, Quit: Jul 07, 2006 2nd Hand Smoke Exposure: No Recent Foreign Travel: No Contact w/other who traveled: No Recent Hopitalizations: Yes Recent Infectious Disease Expo: No Immunizations Up To Date Tetanus Booster (TDap): Unknown Pediatric: No Date of Pneumonia Vaccine: May 02, 2018 Seasonal Allergies Seasonal Allergies: No Past Medical History Surgeries: Cardiac, CABG, Coronary Stent, Orthopedic Respiratory: Sleep Apnea Currently Using CPAP: Yes Currently Using BIPAP: No Cardiac: Chronic Edema/Swelling, Coronary Artery Disease, Heart Attack, High Cholesterol, Hypertension, Syncope Neurological: Neuropathy, Vertigo Reproductive: No Gastrointestinal: Gall Bladder Disease Musculoskeletal: Degenerate Disk Disease, Arthritis, Chronic Back Pain Endocrine: Diabetes, Insulin dep Loss of Vision: Bilateral Skin/Integumentary: Recent Skin Changes History of Blood Disorders: No Family History Reviewed Nursing Family Hx Cardiovascular disease 19 FATHER, Onset:Unknown FH: breast cancer G8 SISTER, Onset:50's - 60 FH: ovarian cancer 19 MOTHER, Onset:40's - 50 No Family History of: Cancer of mouth Heart Disease, Cancer Review of Systems Constitutional: No chills, No fever; malaise, weakness EENTM: no symptoms reported Respiratory: No cough, No dyspnea on exertion, No short of breath Cardiovascular: No chest pain; Hx of Intervention; No palpitations Gastrointestinal: No abdominal pain, No constipation, No diarrhea, No nausea, No vomiting Genitourinary: No dysuria Musculoskeletal: muscle weakness Skin: other (ulcers on foot and stump) Psychiatric/Neurological: No Symptoms Reported Physical Exam Physical Exam Vital Signs Vital Signs - First Documented 01/02/20 17:22 Temp 36.7 Pulse 70 Resp 20 B/P (MAP) 166/87 (113) Pulse Ox 97 O2 Delivery Nasal Cannula O2 Flow Rate 3.00 Capillary Refill : Greater Than 3 Seconds Height, Weight, BMI Height: 6'0.00" Weight: 322lbs. 1.0oz. 146.554994sn; 32.43 BMI Method:Stated General Appearance: No Apparent Distress, Chronically ill, Obese HEENT: PERRL/EOMI, Moist Mucous Membranes; No Scleral Icterus (L), No Scleral Icterus (R) Neck: Normal Inspection, Supple Respiratory: Lungs Clear, No Accessory Muscle Use, No Respiratory Distress Cardiovascular: Regular Rate, Rhythm, No Murmur Gastrointestinal: Normal Bowel Sounds, Non Tender, Soft Extremity: No Calf Tenderness, No Pedal Edema, Other (s/p BKA on left with small ulcer noted, eschar between toes on right) Neurologic/Psychiatric: Alert, Oriented x3, Normal Mood/Affect, Sensory Deficit (known neuropathy) Skin: Normal Color, Warm/Dry Results Results/Procedures Labs Laboratory Tests 01/02/20 17:35 01/03/20 04:50 Patient resulted labs reviewed. Imaging: Reviewed Imaging Report Assessment/Plan Admission Diagnosis Hyperglycemia Admission Status: Observation Assessment and Plan Hyperglycemia IDDMMI- poorly controlled resume home meds Has been off his insulin for an undetermined time Foot wound s/p left BKA Peripheral neuropathy Has some eschar in between toes on left foot Ulcer on stump as well Wound Care Consulted, appreciate assistance Does not appear to be infected at this time Will check procalcitonin CKD Near baseline CAD s/p CABG PAD s/p BKA Compensated CHF Subtherapeutic INR Continue home meds Wound care as above Resume warfarin Weakness Likely multifactorial, PT/OT consulted Clinical Quality Measures DVT/VTE Risk/Contraindication: Risk Factor Score Per Nursin RFS Level Per Nursing on Admit: 4+=Very High Contraindications-Mechi: Other *list below* Other: WOUNDS TO LEFT LOWER LEG AND FOOT. RIGHT BKA. ANTONIO MICHAELS MD Jan 03, 2020 11:33
--- NOTE | 2020-01-03 11:42 | Physical Therapy Evaluation ---
PT Evaluation-General Medical Diagnosis Admission Date Jan 02, 2020 at 19:25 Medical Diagnosis: edema, hyperglycemia Onset Date: Jan 02, 2020 Therapy Diagnosis Therapy Diagnosis: impaired mobility, strength, endurance Height/Weight Height (Feet): 6 Height (Inches): 0.00 Weight (Pounds): 322 Weight (Ounces): 1.0 Precautions Precautions/Isolations: Fall Prevention, Standard Precautions Weight Bear Status Right Lower Extremity: Right Weight Bearing/Tolerated Left Lower Extremity: Left Weight Bearing/Tolerated Referral Physician: Starr Barraza MD Reason for Referral: Evaluation/Treatment Medical History Pertinent Medical History: Arthritis, CABG, CAD, COPD, DM, HTN, [place], Neuropathy Additional Medical History Past Medical History Surgeries: Cardiac, CABG, Coronary Stent, Orthopedic Respiratory: Sleep Apnea Currently Using CPAP: Yes Currently Using BIPAP: No Cardiac: Chronic Edema/Swelling, Coronary Artery Disease, Heart Attack, High Cholesterol, Hypertension, Syncope Neurological: Neuropathy, Vertigo Reproductive: No Gastrointestinal: Gall Bladder Disease Musculoskeletal: Degenerate Disk Disease, Arthritis, Chronic Back Pain Endocrine: Diabetes, Insulin dep Loss of Vision: Bilateral Current History Has also had a right BKA Reviewed History: Yes Social History Home: Single Level Current Living Status: Children Entry Into Home: Level Entry Prior Prior Level of Function SCALE: Activities may be completed with or without assistive devices. 2-Jnopzoytzv-zzcrnfc completes the activity by him/herself with no assistance from a helper. 5-Set-up or Clean-up Assistance-helper sets up or cleans up; patient completes activity. [place] assists only prior to or following the activity. 4-Supervision or Touching Assistance-helper provides verbal cues and/or touching/steadying and/or contact guard assistance as patient completes activity. Assistance may be provided throughout the activity or intermittently. 3-Partial/Moderate Assistance-helper does LESS THAN HALF the effort. [place] lifts, holds or supports trunk or limbs, but provides less than half the effort. 2-Substantial/Maximal Assistance-helper does MORE THAN HALF the effort. [place] lifts or holds trunk or limbs and provides more than half the effort. 7-Rpyapqrqf-cpxkjv does ALL the effort. Patient does none of the effort to complete the activity. Or, the assistance of 2 or more helpers is required for the patient to complete the activity. If activity was not attempted, code reason: 7-Patient Refused. 9-Not Applicable-not attempted and the patient did not perform the activity before the current illness, exacerbation or injury. 10-Not Attempted due to Environmental Limitations-(lack of equipment, weather restraints, etc.). 88-Not Attempted due to Medical Conditions or Safety Concerns. Bed Mobility: 6 Transfers (B,C,W/C): 6 Prior Devices Use: Motorized scooter PT Evaluation-Current Subjective Patient in bed pre tx, agrees to PT, has unrated pain in shoulders. Patient states he is not doing very well, refuses to get out of the bed but agrees to sit at the side of the bed. Pt/Family Goals "to get stronger" Objective Patient Orientation: Person, Place, Situation Attachments: Oxygen, [place] Catheter, IV ROM/Strength ROM Lower Extremities WNL Strength Lower Extremities LLE 4-/5 gross Sensory Hearing: Functional Sensation Right Lower Extremit: Impaired Sensation Left Lower Extremity: Impaired Transfers Roll Left to Right (QC): 6 Sit to Lying (QC): 6 Lying to Sitting/Side of Bed(Q: 3 Mod assist for supine to sit, patient gets very SOB with just sitting on the side of the bed. Has edema in LLE, some scratches and cuts from fall. Balance Sitting Static: Fair Sitting Dynamic: Fair Treatment AP x20, patient instructed on the use of AP to help prevent DVT's Assessment/Needs Patient has impaired mobility, strength, endurance. Patient in bed post tx with nurse call, phone, tray, all needs met, has a bipap or cpap that he has been using that is attached to O2. Rehab Potential: Fair PT Dredge Pipeman Goals Alf Goals PT Alf Goals Time Frame: Jan 10, 2020 Roll Left & Right (QC): 6 Sit to Lying (QC): 6 Lying-Sitting on Side/Bed(QC): 6 Sit to Stand (QC): 4 Chair/Vpe-xp-Ebrce Xfer(QC): 4 PT Plan Problem List Problem List: Activity Tolerance, Functional Strength, Safety, Balance, Transfer, Bed Mobility, ROM Treatment/Plan Treatment Plan: Continue Plan of Care Treatment Plan: Bed Mobility, Education, Functional Activity Farshad, Functional Strength, Safety, Therapeutic Exercise, Transfers Treatment Duration: Jan 10, 2020 Frequency: 6 times per week Estimated Hrs Per Day: .25 hour per day Patient and/or Family Agrees t: Yes Safety Risks/Education Patient Education: Transfer Techniques, Correct Positioning, Safety Issues Teaching Recipient: Patient Teaching Methods: Demonstration, Discussion Response to Teaching: Reinforcement Needed Discharge Recommendations Plan Patient will perform bed mobility and transfer training, balance and endurance training, functional strengthening, and education, to improve functional mobility and independence at home. Therapy Discharge Recommendati: Other, See Comments ([place]), Home & Family Time/GCodes Time In: 1122 Time Out: 1133 Total Billed Treatment Time: 10 Total Billed Treatment 1 visit BETTY VYAS PT Jan 03, 2020 11:42
--- NOTE | 2020-01-03 11:53 | Occupational Therapy Eval ---
OT Evaluation-General/PLF Medical Diagnosis Admission Date Jan 02, 2020 at 19:25 Medical Diagnosis: edema, hyperglycemia Onset Date: Jan 02, 2020 Therapy Diagnosis Therapy Diagnosis: impaired ADLs/functional mobility Height/Weight Height (Feet): 6 Height (Inches): 0.00 Weight (Pounds): 322 Weight (Ounces): 1.0 Precautions Precautions/Isolations: Fall Prevention, Standard Precautions Referral Physician: Starr Barraza MD Referral Reason: Evaluation/Treatment Medical History Pertinent Medical History: Arthritis, CABG, CAD, COPD, DM, HTN, TN, Neuropathy Additional Medical History cardiac, CABG, coronary stent, orthopedic, CAD, heart attack, HTN, syncopy, neuropathy, vertigo, DM, right BKA Social History Home: Single Level Current Living Status: Children Entry Into Home: Level Entry ADL-Prior Level of Function SCALE: Activities may be completed with or without assistive devices. 3-Ctcjyookfm-zvympiw completes the activity by him/herself with no assistance from a helper. 5-Set-up or Clean-up Assistance-helper sets up or cleans up; patient completes activity. [place] assists only prior to or following the activity. 4-Supervision or Touching Assistance-helper provides verbal cues and/or touching/steadying and/or contact guard assistance as patient completes activity. Assistance may be provided throughout the activity or intermittently. 3-Partial/Moderate Assistance-helper does LESS THAN HALF the effort. [place] lift s, holds or supports trunk or limbs, but provides less than half the effort. 2-Substantial/Maximal Assistance-helper does MORE THAN HALF the effort. [place] lifts or holds trunk or limbs and provides more than half the effort. 8-Mrzvlssru-oxpcsj does ALL the effort. Patient does none of the effort to complete the activity. Or, the assistance of 2 or more helpers is required for the patient to complete the activity. If activity was not attempted, code reason: 7-Patient Refused. 9-Not Applicable-not attempted and the patient did not perform the activity before the current illness, exacerbation or injury. 10-Not Attempted due to Environmental Limitations-(lack of equipment, weather restraints, etc.). 88-Not Attempted due to Medical Conditions or Safety Concerns. ADL PLOF Comments Pt reports requiring assistance with ADLs at prior level. Pt has assistance x3/week with showering, meals are provided once a day x5 days/week, and he has assistance with cleaning. Pt indicates he is able to get dressed himself but he requires increased time. For functional mobility pt requires a motorized scooter. Self Care: Needed Some Help Functional Cognition: Independent DME/Equipment: Bath Chair, Shower DME/Equipment Comments scooter OT Current Status Subjective Pt laying in bed at start of session, agreeable to OT evaluation. Pt indicates he is tired from PT tx. Mental Status/Objective Attachments: Bergeron Catheter, IV, Oxygen Current Glasses/Contacts: No Hearing Aids: Yes Dentures/Partials: Yes Hand Dominance: Right Upper Extremity ROM decreased, pt laying supine and able to flex R shoulder to approx 90 degrees and L shoulder approx 20 degrees Upper Extremity Sensation pt denies tingling/numbness BUEs Upper Extremity Strength grossly 3/5 MMT Other Treatments Pt laying in bed, agreeable to OT evaluation. OT educated pt on benefits and purpose of OT, he verbalized understanding. Pt then provided information about PLOF and home set up, and participated in UE screen. Pt pleasantly declined sitting EOB stating he just completed with PT. Pt pleasantly declines ADLs on this date. Post OT session, pt laying in bed, call light in reach and all needs met. Education OT Patient Education: Correct positioning, Energy conservation, Progress toward Goal/Update tx plan, Purpose of tx/functional activities, Rehab process Teaching Recipient: Patient Teaching Methods: Discussion Response to Teaching: Verbalize Understanding OT Shelter Goals Shelter Goals Time Frame: Jan 12, 2020 Eating (QC): 6 Oral Hygiene (QC): 6 Toileting Hygiene (QC): 3 Shower/Bathe Self (QC): 3 Upper Body Dressing (QC): 5 Lower Body Dressing (QC): 5 On/Off Footwear (QC): 5 1=Demonstrate adherence to instructed precautions during ADL tasks. 2=Patient will verbalize/demonstrate understanding of assistive dev ices/modifications for ADL. 3=Patient will improve strength/tolerance for activity to enable patient to perform ADL's. OT Education/Plan Problem List/Assessment Assessment: Decreased Activ Tolerance, Decreased UE Strength, Impaired I ADL's, Impaired Self-Care Skills Discharge Recommendations Plan/Recommendations: Continue POC Treatment Plan/Plan of Care Patient would benefit from OT for education, treatment and training to promote independence in ADL's, mobility, safety and/or upper extremity function for ADL's. Plan of Care: ADL Retraining, Functional Mobility, UE Funct Exercise/Act Treatment Duration: Jan 12, 2020 Frequency: 5 times per week Estimated Hrs Per Day: .25 hour per day Rehab Potential: Fair Time/GCodes Start Time: 11:37 Stop Time: 11:45 Total Time Billed (hr/min): 8 Billed Treatment Time 1, JESUS TEMPLE OT Jan 03, 2020 11:53
--- NOTE | 2020-01-03 11:58 | NUR ---
CM/SS visited with the patient for discharge planning. Plan: The patient will return to [facility]. (pt wearing CPAP mask; therefore, some of the conversation was hard to hear) Home Health: [facility] previous agency. He reports he is not willing to have home health at this time. The patient reports that he feels that [facility] meets his individual needs with being in a power chair and his other medical comorbidities. He states that currently his son is staying with him but is often not there to help out if needed. The patient states "he is trying to straighten him up". His other two son's live in [place] and [place]. CM/SS asked the patient about his medication usage. He states previously he had his first ex- setting up his insulin; however, since the pandemic she has not been able to help. The patient reports that he has been doing his med setup but isn't taking them. CM/SS asked the patient why he wasn't taking his medications and reports it's due to him being sleepy. Patient reports it is not due to cost of medications. The patient denies feeling depressed at this time. Will continue to follow.
[2020-01-03 12:08] VITALS: BP 159/71
[2020-01-03] MEDS ORDERED: WARF-48 PO (12:11)
[2020-01-03] MEDS ORDERED: RT-ALBUTEROL/IPRATROPIUM 3 ML (DUONEB) VIAL IH PRN (13:00)
[2020-01-03] MEDS ORDERED: NON-FORMULARY MEDICATION 1 EA EA (Hydralazine HCl 100 MG) PO SCH (13:00)
[2020-01-03] MEDS ORDERED: FERROUS SULF 325 MG (IRON) TAB PO SCH (13:00)
[2020-01-03] MEDS ORDERED: MECLIZINE 25 MG (ANTIVERT) TAB PO PRN (13:00)
[2020-01-03] MEDS ORDERED: NON-FORMULARY MEDICATION 1 EA EA (Ondansetron HCl (Zofran) 8 MG) PO PRN (13:00)
[2020-01-03] MEDS ORDERED: ONDANSETRON 4 MG (ZOFRAN) ORAL DISSOLVE TAB PO PRN (13:30)
--- NOTE | 2020-01-03 13:34 | NUR ---
DR SILVA CONSULTED FOR WOUND ON LEFT FOOT
--- NOTE | 2020-01-03 13:35 | NUR ---
"RD ASSESSMENT PMHx: CHF; DM; COPD; CAD; AL; hypercholesterolemia; HTN; PT INTERACTION: Pt was semi-awake and pleasant during nutrition assessment. Pt states current appetite is good. Note PO intake 100% x1meal, per chart review. Pt states following a regular diet at home, and has no issues with chewing/swallowing food. Pt states no recent issues with nausea, vomiting, constipation, or diarrhea. Note last BM was 6/3, and pt not currently on bowel regimen per chart review. Pt states no recent wt changes. Note unable to determine recent wt hx, per chart review. Pt states poor control over DM management at this time. Note unable to determine recent HbA1c, per chart review. ABNORMAL NUTRITION-RELATED LAB VALUES LOW: Na 131; Ca 8.4; Pro 6.1; HIGH: BUN 27; cr 1.70; glu 387 Est. kcal needs: 8812-0027 kcal | 15-18 kcal/kg Est. Pro needs: 87-108 g Pro | 0.8-1.0 g Pro/kg PES STATEMENT: Food- and nutrition-related knowledge deficit (NB-1.1) related to lack of prior nutrition-related education as evidenced by pt interview | lack of prior knowledge of need for nutrition-related information INTERVENTION: Continue with current diet order of CHO 75g/m 0snack diet. Pt may benefit from further CHO restriction if blood glucose levels become elevated. Discussed CHO counting and portion control with pt, as well as CHO amounts in common foods. Provided handout and discussed appropriate amounts of CHOs at meals/snacks. Will continue to follow and reassess as pt needs, intake, and status change. MONITOR/EVALUATE: PO Intake; Plan of Care; Hydration Status; Weight Status; Lab Values Jose Robledo, MS, RD, LD"
[2020-01-03] MEDS: GEMFIBROZIL 600 MG (LOPID) TAB PO SCH (14:22)
[2020-01-03] MEDS: hydrALAZINE (APRESOLINE) 25 MG TAB PO SCH ×2 (14:22→21:09)
--- NOTE | 2020-01-03 15:15 | NUR ---
SPOKE WITH THE PT, WENT THRU THE EXT MED HISTORY AND CALLED [facility] TO COMPLETE THE MED REC. FUROSEMIDE 40MG WAS LAST FILLED ON 11-24-2019 #180/90DS NOVOLOG VIALS LAST FILLED 09-12-2019 #3 VIALS/55DS- I DID INCLUDE THE PAST DUE FILL ON THE MED REC LEVEMIR VIALS LAST FILLED 09-25-2019 #3 VIALS/22DS-I DID INCLUDE THE PAST DUE FILL ON THE MED REC WARFARIN: [facility] HAVE DIRECTIONS OF 10MG 1 TAB WEDNESDAY THRU WEDNESDAY AND 5MG EVERYDAY OF THE WEEK- PT SAYS HE DOES NOT TAKE IT LIKE THAT AND ALTERNATES BETWEEN THE 5MG & 10MG DAILY OTC MEDS: ASPIRIN 81 VIT C CALCIUM W/ VIT D VITAMIN D IRON MAGNESIUM VIT E MECLIZINE FISH OIL
[2020-01-03 15:36] VITALS: BP 154/61
[2020-01-03] MEDS: FUROSEMIDE 40 MG (LASIX) TAB PO SCH (16:52)
[2020-01-03] MEDS: inSUlin ASPART (NovoLOG) 1 UNIT/0.01 ML (CHARGE PER UNIT) SQ SCH (16:53)
--- NOTE | 2020-01-03 17:29 | NUR ---
UP IN CHAIR, ISRA[place] WELL, DRESSING DRY AND INTACT TO RIGHT STUMP AND LEFT BHAKTA, LUCIANO PATENT WITH KARI COLOR URINE, IV CHANGED TO SALINE LOCK, GOOD PO INTACT, C PAP ON
[2020-01-03] MEDS ORDERED: warFARin 10 MG (COUMADIN) TAB PO SCH (18:00)
[2020-01-03] MEDS: ASCORBIC ACID (VIT C) 500 MG TABLET PO SCH (18:29)
--- NOTE | 2020-01-03 18:43 | Wound Care Assessment ---
Wound Care Assessment Date Seen by Provider: Jan 03, 2020 Time Seen by Provider: 17:30 Chief Complaint L 3rd toe ulcer, L calf ulcer, R BKA stump ulcer. HPI The patient is a 69 year old male with above ulcers in a setting of uncontrolled diabetes, multiple falls, morbid obesity, CAD, CHF. Admitting glucose 608. discussed seriousness of current wounds, h9igh risk of amputation of L leg, even with maximal care, absolute need of glucose control, work-up for possible arterial disease. 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 Dressings are ordered. Segmentals ordered. The patient is informed that I will be out of town until 01/08/20. Past Medical History: Admits Diabetes Type II, Admits Heart Disease, Admits Peripheral Artery Disease Smoking Status: Former Smoker Recreational Drug Use: Yes Alcohol Use: Denies Use Review of Systems Pulmonary: Dyspnea Cardiovascular: Chest Pain Gastrointestinal: No: Abdominal Pain Exam Vital Signs Date Time Temp Pulse Resp B/P (MAP) Pulse Ox O2 Delivery O2 Flow Rate FiO2 01/03/20 15:36 37.2 77 16 154/61 (92) 95 NIV CPAP 4.00 Capillary Refill : Greater Than 3 Seconds General Appearance: no apparent distress Cardiovascular: regular rate, rhythm Respiratory: rales (bilateral) Gastrointestinal: non tender, soft Extremities: pedal edema (4+), other (R BKA with stump ulcer. Habitually sits with leg resting on stump.) Skin: other (L 3rd toe -- 0.8 x 1.4 x 0.5 cm, necrotic slough with tendon exposed; L calf -- 9.0 x 5.9 x 0.1 cm, raised, excoriated, diffuse inflammation; R BKA site -- 1.5 x 1.0 x 0.2 cm, 50%granulation, 50% slough) Results Laboratory Tests 01/03/20 04:50: White Blood Count 5.8, Red Blood Count 3.75L, Hemoglobin 10.6L, Hematocrit 31L, Mean Corpuscular Volume 84, Mean Corpuscular Hemoglobin 28, Mean Corpuscular Hemoglobin Concent 34, Red Cell Distribution Width 15.1H, Platelet Count 109L, Mean Platelet Volume 10.9H, Neutrophils (%) (Auto) 72, Lymphocytes (%) (Auto) 19, Monocytes (%) (Auto) 8, Eosinophils (%) (Auto) 2, Basophils (%) (Auto) 0, Neutrophils # (Auto) 4.1, Lymphocytes # (Auto) 1.1, Monocytes # (Auto) 0.4, Eosinophils # (Auto) 0.1, Basophils # (Auto) 0.0, Sodium Level 131L, Potassium Level 4.3, Chloride Level 102, Carbon Dioxide Level 17L, Anion Gap 12, Blood Urea Nitrogen 27H, Creatinine 1.70H, Estimat Glomerular Filtration Rate 40, BUN/Creatinine Ratio 16, Glucose Level 387H, Calcium Level 8.4L, Corrected Calcium 9.0, Total Bilirubin 0.6, Aspartate Amino Transf (AST/SGOT) 19, Alanine Aminotransferase (ALT/SGPT) 19, Alkaline Phosphatase 90, Total Protein 6.1L, Albumin 3.2, Procalcitonin 0.07 01/03/20 10:02: Glucometer 431*H 01/03/20 14:22: Glucometer 381H Microbiology 01/02/20 Blood Culture - Preliminary, Resulted No growth 01/02/20 Urine Culture - Preliminary, Resulted Culture In Progress Microbiology 01/02/20 Blood Culture - Preliminary, Resulted No growth 01/02/20 Urine Culture - Preliminary, Resulted Culture In Progress 01/02/20 Blood Culture - Preliminary, Resulted No growth Assessment/Plan/Dx 1. Cellulitis of L foot. 2. L 3rd toe Mcginnis Grade 2 diabetic foot ulcer, with exposed infected tendon. High risk of eventual amputation. 3. L calf ulcer, consistent with necrobiosis lipoidica. 4. R BKA stump ulcer, Mcginnis Grade 2 Diabetic Wound of the Lower Extremity. 5. Diabetes with foot ulcer, other skin ulcer, hyperglycemia. 6. Necrobiosis lipoidica L calf. 7. Coronary artery disease. 8. Morbid obesity. 9. Debility. Plan: Discussed at length with patient the high risk of amputation of L leg, need for close control of blood glucose levels, risk of other organ injury with hyperglycemia, need to elevate leg. ELMO DAWN MD Jan 03, 2020 18:43
[2020-01-03 19:54] VITALS: BP 142/65
[2020-01-03] MEDS ORDERED: TAMSULOSIN 0.4 MG (FLOMAX) CAP PO SCH (21:00)
[2020-01-03] MEDS ORDERED: NON-FORMULARY MEDICATION 1 EA EA (Carvedilol 25 MG) PO SCH (21:00)
[2020-01-03] MEDS ORDERED: NON-FORMULARY MEDICATION 1 EA EA (Cholecalciferol (Vitamin D3) (D3-2000) 50 MCG) PO SCH (21:00)
[2020-01-03] MEDS ORDERED: FINASTERIDE (PROSCAR) 5 MG TAB PO SCH (21:00)
[2020-01-03] MEDS ORDERED: AMITRIPTYLINE 25 MG (ELAVIL) TAB PO SCH (21:00)
[2020-01-03] MEDS: OMEGA 3 (FISH OIL) 1000 MG CAP PO SCH (21:09)
[2020-01-03] MEDS: VITAMIN D3 25 MCG (1,000 UNITS) TABLET PO SCH (21:10)
[2020-01-03] MEDS: CARVEDILOL 12.5 MG (COREG) TABLET PO SCH (21:10)
[2020-01-03] MEDS: CEFDINIR 300 MG (OMNICEF) CAP PO SCH (21:14)
--- NOTE | 2020-01-03 21:52 | NUR ---
DRSGS APPLIED PER DR. SILVA ORDERS.
[2020-01-04 00:17] VITALS: BP 155/73
--- NOTE | 2020-01-04 00:45 | NUR ---
PT REQUESTED A BLOOD SUGAR TEST. ACCUCHECK TESTED AT THIS TIME. BS 255.
[2020-01-04] MEDS: RT-ALBUTEROL/IPRATROPIUM 3 ML (DUONEB) VIAL INH SCH ×2 (03:00→07:06)
[2020-01-04 04:10] VITALS: BP 138/63
[2020-01-04] MEDS: inSUlin ASPART (NovoLOG) 1 UNIT/0.01 ML (CHARGE PER UNIT) SC SCH ×2 (06:22→10:12)
[2020-01-04] MEDS: inSUlin ASPART (NovoLOG) 1 UNIT/0.01 ML (CHARGE PER UNIT) SQ SCH (06:22)
[2020-01-04] MEDS: ACETAMINOPHEN 500 MG TAB (TYLENOL) PO PRN (06:23)
[2020-01-04] MEDS: FUROSEMIDE 40 MG (LASIX) TAB PO SCH (06:23)
[2020-01-04 06:28] LABS: HEMOGLOBIN 10.7 G/DL (13.3-17.7); MEAN PLATELET VOLUME 10.5 FL (7.4-10.4); RED CELL DISTRIBUTION WIDTH 15.2 % (10.0-14.5); WHITE BLOOD COUNT 7.8 10^3/uL (4.3-11.0)
[2020-01-04 06:42] LABS: INR 1.2 (0.8-1.4); PROTHROMBIN TIME PATIENT 15.5 SEC (12.2-14.7)
[2020-01-04 06:49] LABS: CALCIUM 8.6 MG/DL (8.5-10.1); CREATININE SERUM 1.78 MG/DL (0.60-1.30); POTASSIUM 3.8 MMOL/L (3.6-5.0)
[2020-01-04] MEDS ORDERED: DOXYCYCLINE 100 MG (VIBRAMYCIN) TABLET PO SCH (07:00)
[2020-01-04] MEDS ORDERED: VENlafaxine XR 75 MG (EFFEXOR XR) CAP PO SCH (07:00)
[2020-01-04] MEDS ORDERED: KCL 20 MEQ TAB (K-DUR) PO SCH (07:00)
[2020-01-04 08:00] VITALS: BP 137/61
[2020-01-04] MEDS ORDERED: VITAMIN E 180 MG (400 UNITS) CAP PO SCH (09:00)
[2020-01-04] MEDS ORDERED: MICONAZOLE 2% POWDER (DESENEX AF) 90 GM TOP SCH (09:00)
[2020-01-04] MEDS ORDERED: NON-FORMULARY MEDICATION 1 EA EA (Vitamin E Acetate (Vitamin E) 400 UNIT) PO SCH (09:00)
[2020-01-04] MEDS ORDERED: ALLOPURINOL 100 MG (ZYLOPRIM) TAB PO SCH (09:00)
[2020-01-04] MEDS ORDERED: NON-FORMULARY MEDICATION 1 EA EA (Potassium Chloride 20 MEQ) PO SCH (09:00)
[2020-01-04] MEDS ORDERED: MAGNESIUM OXIDE (MAG-OX)400 MG TAB PO SCH (09:00)
[2020-01-04] MEDS ORDERED: FOLIC ACID 1 MG TAB PO SCH (09:00)
[2020-01-04] MEDS ORDERED: amLODIPine 10 MG (NORVASC) TAB PO SCH (09:00)
[2020-01-04] MEDS ORDERED: NON-FORMULARY MEDICATION 1 EA EA (Magnesium Oxide (Magnesium) 400 MG) PO SCH (09:00)
[2020-01-04] MEDS ORDERED: TRIAMCINOLONE 0.5% CR (KENALOG) 15 GM TUBE TOP SCH (09:00)
[2020-01-04] MEDS ORDERED: NON-FORMULARY MEDICATION 1 EA EA (Venlafaxine HCl (Venlafaxine HCl ER) 150 MG) PO SCH (09:00)
[2020-01-04] MEDS ORDERED: ASPIRIN E.C. 81 MG (ECOTRIN) TAB PO SCH (09:00)
--- NOTE | 2020-01-04 09:06 | Physical Therapy Progress Note ---
Therapy Progress Note Patient adamantly declined PT this a.m. stating, "I'm not doing anything today." PT attempted to educate and encourage patient to participate to increase strength, however, patient continued to refuse. 1 ref ([id number]) ROSELYN FREEMAN PT Jan 04, 2020 09:06
[2020-01-04 09:15] VITALS: BP 137/61
--- NOTE | 2020-01-04 09:22 | Discharge Summary ---
Diagnosis/Chief Complaint Date of Admission Jan 02, 2020 at 19:25 Date of Discharge Admission Diagnosis Hyperglycemia Primary Care Discharge Summary Discharge Physical Exam Allergies: Coded Allergies: niacin (Unverified Allergy, Unknown, 06/26/10) rosuvastatin (Verified Allergy, Unknown, 04/20/07) fenofibrate (Unverified Adverse Reaction, Unknown, LIVER PROBLEMS, 01/23/15) Vitals & I&Os Vital Signs Date Time Temp Pulse Resp B/P (MAP) Pulse Ox O2 Delivery O2 Flow Rate FiO2 01/04/20 09:15 37.2 78 20 137/61 (86) 93 NIV CPAP 4.00 General Appearance: No Apparent Distress, Chronically ill, Obese Cardiovascular: Regular Rate, Rhythm, No Murmur Gastrointestinal: Normal Bowel Sounds, Soft Neurologic/Psychiatric: Alert, Oriented x3 Hospital Course Pt was admitted due to poorly controlled IDDMII and weakness. He had recently quite taking all of his medications and his blood sugar was over 600. He was restarted on his medication and blood suagr controll improved. He remained weak though and was discharged to IRU for extensive therapy in hope of increasing strength. He was also noted to have a wound on his remaining foot and wound care was consult. He was started on oral antibiotics for this with silvadene dressings. Labs (last 24 hrs) Laboratory Tests 01/03/20 19:56: Glucometer 287H 01/04/20 00:44: Glucometer 255H 01/04/20 04:57: Glucometer 183H 01/04/20 06:10: White Blood Count 7.8, Red Blood Count 3.78L, Hemoglobin 10.7L, Hematocrit 32L, Mean Corpuscular Volume 84, Mean Corpuscular Hemoglobin 28, Mean Corpuscular Hemoglobin Concent 34, Red Cell Distribution Width 15.2H, Platelet Count 131, Mean Platelet Volume 10.5H, Prothrombin Time 15.5H, INR Comment 1.2, Sodium Level 135, Potassium Level 3.8, Chloride Level 103, Carbon Dioxide Level 24, Anion Gap 8, Blood Urea Nitrogen 27H, Creatinine 1.78H, Estimat Glomerular Filtration Rate 38, BUN/Creatinine Ratio 15, Glucose Level 139H, Calcium Level 8.6 01/04/20 09:04: Glucometer 74 01/04/20 10:05: Glucometer 91 6/4/20 11:17: Glucometer 136H 01/04/20 14:59: Glucometer 273H Microbiology 01/02/20 Blood Culture - Preliminary, Resulted No growth 01/02/20 Urine Culture - Final, Complete Strep agalactiae Group B Patient resulted labs reviewed. Pending Labs Laboratory Tests 01/04/20 09:04: Glucometer 74 01/04/20 10:05: Glucometer 91 01/04/20 11:17: Glucometer 136 01/04/20 14:59: Glucometer 273 Imaging: Reviewed Imaging Report Discussion & Recommendations Discharge Planning: >30 minutes discharge planning Discharge Home Medications: Active Scripts Active Reported Warfarin Sodium 5 Mg Tablet 5 Mg PO Q48H ALTERNATES 10MG & 5MG Warfarin Sodium 10 Mg Tablet 10 Mg PO Q48H ALTERNATES BETWEEN 5MG & 10MG Zofran (Ondansetron HCl) 8 Mg Tablet 8 Mg PO Q8H PRN Magnesium (Magnesium Oxide) 400 Mg Tablet 400 Mg PO DAILY Iprat-Albut 0.5-3(2.5) mg/3 ml (Ipratropium/Albuterol Sulfate) 3 Ml Ampul.neb 3 Ml IH Q6H PRN Folic Acid 1 Mg Tablet 1 Mg PO DAILY D3-2000 (Cholecalciferol (Vitamin D3)) 50 Mcg Capsule 50 Mcg PO BID Novolog (Insulin Aspart) 100 Unit/1 Ml Susp 18 Unit SQ TIDAC LAST FILLED 09-12-2019 # 3 VIALS/55 DAY SUPPLY Hydralazine HCl 100 Mg Tablet 100 Mg PO TID Flomax (Tamsulosin HCl) 0.4 Mg Cap 0.4 Mg PO HS Ascorbic Acid 500 Mg Tablet 500 Mg PO BID Potassium Chloride 20 Meq Tablet.er 20 Meq PO DAILY Lasix (Furosemide) 40 Mg Tablet 40 Mg PO BID Ferrous Sulfate 325 Mg Tablet 325 Mg PO Q48H Meclizine HCl 25 Mg Tablet 25 Mg PO BID PRN Amitriptyline HCl 25 Mg Tablet 25 Mg PO HS Finasteride 5 Mg Tablet 5 Mg PO HS Calcium 600 + Vit D 400 Tablet (Calcium Carbonate/Vitamin D3) 1 Each Tablet 1 Tab PO DAILY Aspirin EC (Aspirin) 81 Mg Tablet.dr 81 Mg PO DAILY Fish Oil 1,000 mg Softgel ([place]-3/Dha/Epa/Fish Oil) 1 Each Capsule 1,000 Mg PO BID Levemir (Insulin Determir) 1,000 Units/10 Ml Soln 67 Units SC BID LAST FILLED 09-25-2019 #3 VIALS/22 DAY SUPPLY Venlafaxine HCl ER (Venlafaxine HCl) 150 Mg Cap.er.24h 150 Mg PO DAILY Carvedilol 25 Mg Tablet 25 Mg PO BID Amlodipine Besylate 10 Mg Tablet 10 Mg PO DAILY Allopurinol 100 Mg Tablet 100 Mg PO DAILY Gemfibrozil 600 Mg Tablet 600 Mg PO DAILY Vitamin E (Vitamin E Acetate) 400 Unit Capsule 400 Unit PO DAILY Instructions to patient/family Please see electronic discharge instructions given to patient. Clinical Quality Measures DVT/VTE Risk/Contraindication: Risk Factor Score Per Nursin RFS Level Per Nursing on Admit: 4+=Very High Contraindications-Mechi: Other *list below* Other: WOUNDS TO LEFT LOWER LEG AND FOOT. RIGHT BKA. ANTONIO MICHAELS MD Jan 04, 2020 09:22
--- NOTE | 2020-01-04 09:27 | Discharge Summary ---
Diagnosis/Chief Complaint Date of Admission Jan 02, 2020 at 19:25 Date of Discharge Admission Diagnosis Hyperglycemia Primary Care Discharge Summary Discharge Physical Exam Allergies: Coded Allergies: niacin (Unverified Allergy, Unknown, 06/26/10) rosuvastatin (Verified Allergy, Unknown, 04/20/07) fenofibrate (Unverified Adverse Reaction, Unknown, LIVER PROBLEMS, 01/23/15) Vitals & I&Os Vital Signs Date Time Temp Pulse Resp B/P (MAP) Pulse Ox O2 Delivery O2 Flow Rate FiO2 01/04/20 09:15 37.2 78 20 137/61 (86) 93 NIV CPAP 4.00 Hospital Course Labs (last 24 hrs) Laboratory Tests 01/03/20 10:02: Glucometer 431*H 01/03/20 14:22: Glucometer 381H 01/03/20 19:56: Glucometer 287H 01/04/20 00:44: Glucometer 255H 01/04/20 04:57: Glucometer 183H 01/04/20 06:10: White Blood Count 7.8, Red Blood Count 3.78L, Hemoglobin 10.7L, Hematocrit 32L, Mean Corpuscular Volume 84, Mean Corpuscular Hemoglobin 28, Mean Corpuscular Hemoglobin Concent 34, Red Cell Distribution Width 15.2H, Platelet Count 131, Mean Platelet Volume 10.5H, Prothrombin Time 15.5H, INR Comment 1.2, Sodium Level 135, Potassium Level 3.8, Chloride Level 103, Carbon Dioxide Level 24, Anion Gap 8, Blood Urea Nitrogen 27H, Creatinine 1.78H, Estimat Glomerular Filtration Rate 38, BUN/Creatinine Ratio 15, Glucose Level 139H, Calcium Level 8.6 01/04/20 09:04: Microbiology 01/02/20 Blood Culture - Preliminary, Resulted No growth 01/02/20 Urine Culture - Final, Complete Strep agalactiae Group B Patient resulted labs reviewed. Pending Labs Laboratory Tests 01/04/20 04:57: Glucometer 183 01/04/20 06:10: White Blood Count 7.8, Red Blood Count 3.78, Hemoglobin 10.7, Hematocrit 32, Mean Corpuscular Volume 84, Mean Corpuscular Hemoglobin 28, Mean Corpuscular Hemoglobin Concent 34, Red Cell Distribution Width 15.2, Platelet Count 131, Mean Platelet Volume 10.5, Prothrombin Time 15.5, INR Comment 1.2, Sodium Level 135, Potassium Level 3.8, Chloride Level 103, Carbon Dioxide Level 24, Anion Gap 8, Blood Urea Nitrogen 27, Creatinine 1.78, Estimat Glomerular Filtration Rate 38, BUN/Creatinine Ratio 15, Glucose Level 139, Calcium Level 8.6 01/04/20 09:04: Glucometer [Pending] Imaging: Reviewed Imaging Report Discharge Home Medications: Active Scripts Active Reported Warfarin Sodium 5 Mg Tablet 5 Mg PO Q48H ALTERNATES 10MG & 5MG Warfarin Sodium 10 Mg Tablet 10 Mg PO Q48H ALTERNATES BETWEEN 5MG & 10MG Zofran (Ondansetron HCl) 8 Mg Tablet 8 Mg PO Q8H PRN Magnesium (Magnesium Oxide) 400 Mg Tablet 400 Mg PO DAILY Iprat-Albut 0.5-3(2.5) mg/3 ml (Ipratropium/Albuterol Sulfate) 3 Ml Ampul.neb 3 Ml IH Q6H PRN Folic Acid 1 Mg Tablet 1 Mg PO DAILY D3-2000 (Cholecalciferol (Vitamin D3)) 50 Mcg Capsule 50 Mcg PO BID Novolog (Insulin Aspart) 100 Unit/1 Ml Susp 18 Unit SQ TIDAC LAST FILLED 09-12-2019 # 3 VIALS/55 DAY SUPPLY Hydralazine HCl 100 Mg Tablet 100 Mg PO TID Flomax (Tamsulosin HCl) 0.4 Mg Cap 0.4 Mg PO HS Ascorbic Acid 500 Mg Tablet 500 Mg PO BID Potassium Chloride 20 Meq Tablet.er 20 Meq PO DAILY Lasix (Furosemide) 40 Mg Tablet 40 Mg PO BID Ferrous Sulfate 325 Mg Tablet 325 Mg PO Q48H Meclizine HCl 25 Mg Tablet 25 Mg PO BID PRN Amitriptyline HCl 25 Mg Tablet 25 Mg PO HS Finasteride 5 Mg Tablet 5 Mg PO HS Calcium 600 + Vit D 400 Tablet (Calcium Carbonate/Vitamin D3) 1 Each Tablet 1 Tab PO DAILY Aspirin EC (Aspirin) 81 Mg Tablet.dr 81 Mg PO DAILY Fish Oil 1,000 mg Softgel ([place]-3/Dha/Epa/Fish Oil) 1 Each Capsule 1,000 Mg PO BID Levemir (Insulin Determir) 1,000 Units/10 Ml Soln 67 Units SC BID LAST FILLED 09-25-2019 #3 VIALS/22 DAY SUPPLY Venlafaxine HCl ER (Venlafaxine HCl) 150 Mg Cap.er.24h 150 Mg PO DAILY Carvedilol 25 Mg Tablet 25 Mg PO BID Amlodipine Besylate 10 Mg Tablet 10 Mg PO DAILY Allopurinol 100 Mg Tablet 100 Mg PO DAILY Gemfibrozil 600 Mg Tablet 600 Mg PO DAILY Vitamin E (Vitamin E Acetate) 400 Unit Capsule 400 Unit PO DAILY Instructions to patient/family Please see electronic discharge instructions given to patient. Clinical Quality Measures DVT/VTE Risk/Contraindication: Risk Factor Score Per Nursin RFS Level Per Nursing on Admit: 4+=Very High Contraindications-Mechi: Other *list below* Other: WOUNDS TO LEFT LOWER LEG AND FOOT. RIGHT BKA. ANTONIO MICHAELS MD Jan 04, 2020 09:27
[2020-01-04] MEDS: CARVEDILOL 12.5 MG (COREG) TABLET PO SCH (09:51)
[2020-01-04] MEDS: OMEGA 3 (FISH OIL) 1000 MG CAP PO SCH (09:52)
[2020-01-04] MEDS: hydrALAZINE (APRESOLINE) 25 MG TAB PO SCH (09:52)
[2020-01-04] MEDS: GEMFIBROZIL 600 MG (LOPID) TAB PO SCH (09:52)
[2020-01-04] MEDS: ASCORBIC ACID (VIT C) 500 MG TABLET PO SCH (09:52)
[2020-01-04] MEDS: VITAMIN D3 25 MCG (1,000 UNITS) TABLET PO SCH (09:52)
[2020-01-04] MEDS: CEFDINIR 300 MG (OMNICEF) CAP PO SCH (09:52)
--- NOTE | 2020-01-04 10:00 | Physical Therapy Progress Note ---
Therapy Progress Note Patient declined PT again stating he is having trouble with his blood sugar. Patient was sleeping upon PT entering room. Will attempt later today. 1 ref ([id number]) ROSELYN FREEMAN PT Jan 04, 2020 09:59
--- NOTE | 2020-01-04 10:23 | NUR ---
IRF Evaluation Order received to evaluate patient for the ARU. Chart review complete and findings discussed with Dr. Oconnor - patient accepted. Dr. Barraza notified of acceptance. Patient to admit to ARU, today. Thank you for this referral.
--- NOTE | 2020-01-04 11:05 | NUR ---
REPORT GIVEN TO NATHALY ON ARU. PHYSICAL THERAPY IN ROOM TO TAKE PT TO ARU. LAST BLOOD SUGAR BEFORE LEAVING FLOOR 136
--- NOTE | 2020-01-04 11:07 | NUR ---
CM/SS follow up. Plan: The patient will move down to the second floor for the Inpatient Rehab. CM/SS contacted the patient sister Zofia to inform her of patients acceptance. She verbalized understanding. CM/SS informed her that Aminata DARBY will take over care for patient as the clinical social work aide. No further needs at this time.
--- NOTE | 2020-01-04 11:16 | Diagnostic Imaging Report ---
INDICATION: Peripheral vascular disease. Below the knee amputation on the right has been performed. Index measurements are correlating the brachial arteries with the lower thighs. This is abnormally diminished with the index 0.73 right and 0.68 left. On the left we were able to measure the ankle brachial index which is also diminished at 0.77. IMPRESSION: Abnormal indices of the JASMYNE on the left is 0.77, on the right distally measured at the lower thigh with an index of 0.73. This has been further evaluated with right lower extremity formal arterial Doppler dictated separately. Dictated by: Dictated on workstation # [id number]
--- NOTE | 2020-01-04 11:17 | Diagnostic Imaging Report ---
INDICATION: Peripheral vascular disease. There is nlrko-udn-zcin amputation on the right. There is abnormal diminished resistance with monophasicity of the waveforms in the common femoral as well as the femoral profunda. There is weakly biphasic waveform in the superficial femoral through the level of the popliteal. There is slow flow in the popliteal at a rate of 37 cm/s proximally the right was 101 cm/s. Hemodynamically significant stenosis at the distal SFA/popliteal junction could not be excluded. IMPRESSION: Diffusely abnormal diminished resistance with a fairly abrupt velocity deceleration at the junction of the distal SFA and slow flowing popliteal. Dictated by: Dictated on workstation # [id number]
[2020-01-04] MEDS ORDERED: warFARin 5 MG (COUMADIN) TAB PO SCH (18:00)
== END 2020-01-04 11:20 ==
LOC: EDUNIT# 17:19 → ER 17:20 → 4TH 19:25
PROVIDERS: ADMIT Internal Medicine; ATTEND Internal Medicine
DX: E11.65 Type 2 diabetes mellitus with hyperglycemia (principal); E11.42 Type 2 diabetes mellitus with diabetic polyneuropathy; E11.621 Type 2 diabetes mellitus with foot ulcer; I11.0 Hypertensive heart disease with heart failure; I50.9 Heart failure, unspecified; I25.10 Atherosclerotic heart disease of native coronary artery without angina pectoris; I25.2 Old myocardial infarction; R29.6 Repeated falls; J44.9 Chronic obstructive pulmonary disease, unspecified; G47.30 Sleep apnea, unspecified; E78.00 Pure hypercholesterolemia, unspecified; M19.90 Unspecified osteoarthritis, unspecified site; M54.9 Dorsalgia, unspecified; L97.519 Non-pressure chronic ulcer of other part of right foot with unspecified severity; G89.29 Other chronic pain; E66.01 Morbid (severe) obesity due to excess calories; Z79.4 Long term (current) use of insulin; Z99.89 Dependence on other enabling machines and devices; Z87.891 Personal history of nicotine dependence; Z88.8 Allergy status to other drugs, medicaments and biological substances; Z79.82 Long term (current) use of aspirin; Z79.01 Long term (current) use of anticoagulants; Z80.3 Family history of malignant neoplasm of breast; Z80.41 Family history of malignant neoplasm of ovary
CPT/HCPCS: 36415; 51702; 71045; 80048; 80053; 81000; 82962; 83605; 83880; 84145; 85025; 85027; 85610; 85730; 86141; 87040; 87077; 87088; 93923; 93926; 94640; 94760; G0378

== ENCOUNTER 2020-01-04 10:01 | Inpatient (IN) | payer MEDICARE ==
[~2020-01-04] VITALS: Ht 182 cm; Wt 165.4 kg
[~2020-01-04 10:01] MED LIST changes: +WARF-48 PO
[2020-01-04] MEDS ORDERED: CALCIUM CARBONATE 500 MG (TUMS) TAB.CHEW PO PRN (10:30)
[2020-01-04] MEDS ORDERED: ONDANSETRON 4 MG (ZOFRAN) ORAL DISSOLVE TAB PO PRN ×2 (10:30→13:14)
[2020-01-04] MEDS ORDERED: guaiFENesin/CODEINE (ROBITUSSIN AC) 10ML UDC PO PRN (10:30)
[2020-01-04] MEDS ORDERED: diphenhydrAMINE 25 MG TAB (BENADRYL) PO PRN (10:30)
[2020-01-04] MEDS ORDERED: LOPERAMIDE 2 MG (IMODIUM) TABLET PO PRN (10:30)
[2020-01-04] MEDS ORDERED: LACTULOSE SYRUP 10GM/15ML (ENULOSE) 30ML UDC PO PRN (10:30)
[2020-01-04] MEDS ORDERED: BISACODYL 10 MG SUPP (DULCOLAX) PR PRN (10:30)
[2020-01-04] MEDS ORDERED: ALPRAZolam 0.25 MG (XANAX) TAB PO PRN (10:30)
[2020-01-04] MEDS ORDERED: DOCUSATE SODIUM 100 MG (COLACE) CAP PO PRN (10:30)
[2020-01-04] MEDS ORDERED: FLEET ENEMA ADULT 1 EA BTL PR PRN (10:30)
[2020-01-04] MEDS ORDERED: MELATONIN 3 MG TABLET PO PRN (10:30)
--- NOTE | 2020-01-04 11:04 | NUR ---
f pt name] admitted to room , with an admitting diagnosis of Debilty, on from via wheelchair, accompanied by staff.ELMO GARCIA introduced to surroundings, call light, bed controls, phone, TV, temperature control, lights, meal times, smoking policy, visitor policy, side rail policy, bathrooms and showers. Patient Rights given to patient in the handbook.ELMO GARCIA verbalizes understanding that [facility] is not responsible for the loss or damage to any personal effects or valuables that are kept in the patients posession during their hospitalization. The following Patient Care Plans were discussed with the pt: Discharge Planning. ELMO GARCIA verbalizes understanding of Interdisciplinary Patient Education. Patient and/or family were informed about the Rapid Response Team and its purpose. Patient received Patient Rights Booklet, which includes Privacy Act Statement and Data Collection Information Summary.
--- NOTE | 2020-01-04 11:54 | Physical Therapy Evaluation ---
PT Evaluation-General Medical Diagnosis Admission Date Medical Diagnosis: edema, hyperglycemia Onset Date: Jan 02, 2020 Therapy Diagnosis Therapy Diagnosis: impaired mobility, strength, endurance Height/Weight Height (Feet): 6 Height (Inches): 0.00 Weight (Pounds): 322 Weight (Ounces): 1.0 Weight Bear Status right BKA Referral Physician: Sumaya Oconnor DO Reason for Referral: Evaluation/Treatment Medical History Pertinent Medical History: Arthritis, CABG, CAD, COPD, DM, HTN, [place], Neuropathy Social History Home: Single Level Current Living Status: Children Entry Into Home: Level Entry Prior Prior Level of Function SCALE: Activities may be completed with or without assistive devices. 4-Ptxcrblgfx-hzfjiun completes the activity by him/herself with no assistance from a helper. 5-Set-up or Clean-up Assistance-helper sets up or cleans up; patient completes activity. [place] assists only prior to or following the activity. 4-Supervision or Touching Assistance-helper provides verbal cues and/or touching/steadying and/or contact guard assistance as patient completes activity. Assistance may be provided throughout the activity or intermittently. 3-Partial/Moderate Assistance-helper does LESS THAN HALF the effort. Reserve lifts, holds or supports trunk or limbs, but provides less than half the effort. 2-Substantial/Maximal Assistance-helper does MORE THAN HALF the effort. Reserve lifts or holds trunk or limbs and provides more than half the effort. 2-Xvisqsgtg-oimlei does ALL the effort. Patient does none of the effort to complete the activity. Or, the assistance of 2 or more helpers is required for the patient to complete the activity. If activity was not attempted, code reason: 7-Patient Refused. 9-Not Applicable-not attempted and the patient did not perform the activity before the current illness, exacerbation or injury. 10-Not Attempted due to Environmental Limitations-(lack of equipment, weather restraints, etc.). 88-Not Attempted due to Medical Conditions or Safety Concerns. Bed Mobility: 6 Transfers (B,C,W/C): 6 Prior Devices Use: Motorized scooter PT Evaluation-Current Subjective Patient in bed pre tx, agrees to PT, has 7/10 pain in right shoulder, will be co-treating with OT after evaluation due to poor patient mobility, strength, endurance, balance, to coordinate UE and LE during activity, and to reduce risk of falls Pt/Family Goals to be independent at home Objective Patient Orientation: Person, Place, Situation ROM/Strength ROM Lower Extremities generally limited due to swelling and morbid obesity Strength Lower Extremities LLE gross 3+/5 Sensory Vision: Functional Hearing: Functional Sensation Left Lower Extremity: Impaired Sensation Lower Extremities Patient has decreased light touch sensation from the knee down. Transfers Roll Left to Right (QC): 6 Sit to Lying (QC): 3 Lying to Sitting/Side of Bed(Q: 2 Sit to Stand (QC): 2 Chair/Rwb-ho-Ztzft Xfer(QC): 2 Toilet Transfer (QC): 1 Car Transfer (QC): 1 Patient performs bed mobility with independence, supine to sit with max assist, sit to supine with min assist, sit <-> stand max assist, transfers max assist, dependent for car transfer. Patient has debility, has a very hard time standing on just one leg. It seems that patient's knee could buckle at any time and he is a high fall risk. Gait Does the Patient Walk?: No and Walking Goal NOT indicated Walk 10 feet (QC): 88 Walk 50 ft with 2 Turns(QC): 88 Walk 150 ft (QC): 88 Walking 10ft/uneven surface-QC: 88 Wheelchair Training Does the Pt Use a Wheelchair?: Yes Wheel 50 ft with 2 turns (QC): 1 Wheel 150 ft (QC): 1 Type of Wheelchair: Manual Stairs 1 Step (curb) (QC): 88 4 Steps (QC): 88 12 Steps (QC): 88 Balance Sitting Static: Good Sitting Dynamic: Good Standing Static: Poor Standing Dynamic: Poor Picking up an Object (QC): 88 Treatment Patient had to stand from the several time for LE dressing and so nurse could check his bottom. Patient is max assist to stand. Assessment/Needs Patient is a high fall risk due to his weakness and obesity, recommend therapy use machine lift to transfer at this time if patient can handle it. Rehab Potential: Guarded PT Short Term Goals Short Term Goals Time Frame: Jan 11, 2020 Roll Left & Right: 6 Sit to lyin Lying to sitting on side of be: 4 Sit to stand: 3 Chair/sbj-au-qnenn transfer: 3 PT Calendering Supervisor Goals Calendering Supervisor Goals PT Mcc Goals Time Frame: Jan 25, 2020 Roll Left & Right (QC): 6 Sit to Lying (QC): 6 Lying-Sitting on Side/Bed(QC): 6 Sit to Stand (QC): 5 Chair/Nsr-sg-Dugrr Xfer(QC): 5 Toilet Transfer (QC): 5 Car Transfer (QC): 5 Does the Patient Walk: No and Walking Goal NOT indicated Walk 10 feet (QC): 88 Walk 50ft with 2 Turns (QC): 88 Walk 150 ft (QC): 88 Walking 10ft on Uneven Surface: 88 1 Step (curb) (QC): 88 4 Steps (QC): 88 12 Steps (QC): 88 Picking up an Object (QC): 88 Wheel 50 feet with 2 turns (QC: 6 Wheel 150 feet: 6 PT Plan Problem List Problem List: Activity Tolerance, Functional Strength, Safety, Balance, Gait, Transfer, Bed Mobility, ROM Treatment/Plan Treatment Plan: Continue Plan of Care Treatment Plan: Bed Mobility, Education, Functional Activity Farshad, Functional Strength, Group Therapy, Safety, Therapeutic Exercise, Transfers Treatment Duration: Jan 25, 2020 Frequency: At least 5 of 7 days/Wk (IRF) Estimated Hrs Per Day: 1.5 hours per day Patient and/or Family Agrees t: Yes Safety Risks/Education Patient Education: Transfer Techniques, Correct Positioning, W/C Management, Safety Issues Teaching Recipient: Patient Teaching Methods: Demonstration, Discussion Response to Teaching: Reinforcement Needed Discharge Recommendations Plan Patient will perform bed mobility and transfer training, balance and endurance training, functional strengthening, and education, to improve functional mobility and independence at home. Therapy Discharge Recommendati: Other, See Comments (NH) Time/GCodes Time In: 1100 Time Out: 1200 Total Billed Treatment Time: 50 Total Billed Treatment 1 visit EVM 10' FA 40' (only charge 2 units) PT eval from [id number], OT eval from [id number], co-treat from [id number]. PT worked on standing, transfers, bed mobility, assist with dressing, OT worked on dressing, standing, assist with transfers and WC mobility. BETTY STRONG PT Jan 04, 2020 11:54
[2020-01-04 11:55] VITALS: BP 115/69
--- NOTE | 2020-01-04 12:01 | Occupational Therapy Eval ---
OT Evaluation-General/PLF Medical Diagnosis Admission Date 01/04/2020 Medical Diagnosis: debility, edema, hyperglycemia Onset Date: Jan 02, 2020 Therapy Diagnosis Therapy Diagnosis: impaired ADLs/functional mobility Height/Weight Height (Feet): 6 Height (Inches): 0.00 Weight (Pounds): 322 Weight (Ounces): 1.0 Weight Bear Status R BKA Referral Physician: Anastasia Referral Reason: Evaluation/Treatment Medical History Pertinent Medical History: Arthritis, CABG, CAD, COPD, DM, HTN, [place], Neuropathy Additional Medical History R BKA, cardiac, CABG, coronary stent, orthopedic, CAD, heart attack, HTN, syncopy, neuropathy, vertigo, DM, Social History Home: Assisted Living Current Living Status: Children Entry Into Home: Level Entry ADL-Prior Level of Function SCALE: Activities may be completed with or without assistive devices. 0-Oseqpmyqak-bmfzgoi completes the activity by him/herself with no assistance from a helper. 5-Set-up or Clean-up Assistance-helper sets up or cleans up; patient completes activity. [place] assists only prior to or following the activity. 4-Supervision or Touching Assistance-helper provides verbal cues and/or touching/steadying and/or contact guard assistance as patient completes activity. Assistance may be provided throughout the activity or intermittently. 3-Partial/Moderate Assistance-helper does LESS THAN HALF the effort. [place] lifts, holds or supports trunk or limbs, but provides less than half the effort. 2-Substantial/Maximal Assistance-helper does MORE THAN HALF the effort. [place] lifts or holds trunk or limbs and provides more than half the effort. 8-Bxvhmpkat-yvxhbm does ALL the effort. Patient does none of the effort to complete the activity. Or, the assistance of 2 or more helpers is required for the patient to complete the activity. If activity was not attempted, code reason: 7-Patient Refused. 9-Not Applicable-not attempted and the patient did not perform the activity before the current illness, exacerbation or injury. 10-Not Attempted due to Environmental Limitations-(lack of equipment, weather restraints, etc.). 88-Not Attempted due to Medical Conditions or Safety Concerns. ADL PLOF Comments Pt reports needing assistance with all ADLs at PLOF. He uses a motorized scooter for functional mobility. He has assistance with ADLs 3 times a week (M,W,F) with showering and dressing. He is able to wash only his upper body and requires assistance with his back, buttocks, and BLEs. After he showers, he has assistance with dressing, reporting he is able to don/doff his shirt but requires assistance with donning/doffing his shorts and sock on L foot. He does not ever wear a shoe on LLE. He has assistance with cleaning and has meals pro vided to him once a day, 5 times a week. Pt reports having assistance with showering/dressing on M, W, & F each week. He does not change clothes or attempt to shower until the next time his aide comes to help with the task. The clothes he puts on Wednesday he keeps on until Wednesday. Self Care: Needed Some Help Functional Cognition: Independent DME/Equipment: Bath Chair, Shower DME/Equipment Comments motorized scooter OT Current Status Subjective Pt has 7/10 pain in right shoulder. OT will be co-treating with PT after evaluation due to poor patient mobility, strength, endurance, balance, to coordinate UE and LE during activity, and to reduce risk of falls Mental Status/Objective Patient Orientation: Person, Place, Situation, Normal For Age Current Dentures/Partials: Yes Hand Dominance: Right Upper Extremity ROM BUE shoulder flexion to approx 100 degrees, pt is able to touch the back of his head with his hands Upper Extremity Coordination WFL Upper Extremity Sensation Pt denies tingling/numbness BUE, intact sensation to light touch Upper Extremity Strength LUE 3+/5 MMT RUE 3/5 MMT, pt reports increased pain with shoulder flexion ADL-Treatment Eating (QC): 6 (per pt report) Oral Hygiene (QC): 7 Shower/Bathe Self (QC): 7 Upper Body Dressing (QC): 10 (Pt wearing hospital gown. He did not have a shirt to don/doff. ARU attempted to find shirt for pt to use, but did not have one l arge enough.) Lower Body Dressing (QC): 1 (Assist x2 in tablet making machine operator helper order to manage pants up. 1 person to focus on balance and 1 to manage clothing. Pt able to thread pants onto BLEs.) On/Off Footwear (QC): 1 (Pt unable to don/doff sock onto L foot. He reports being dependent for task at PLOF) Toileting Hygiene (QC): 7 Other Treatments OT eval [id number]: OT educated pt on benefits and purpose of OT, pt provided information about PLOF and home set up. He then participated in UE screen. Pt indicates he required assistance with all ADLs at prior level. He required assistance will all lower body dressing/footwear but he was able to complete upper body dressing with set up assist. He has an aide come in 3 times a week and only completes showering/dressing on these days. Once he is dressed he does not change his clothes until the aide is present a couple days later. He has meals provided to him 5 days a week and has assistance cleaning. OT/PT cotreat [id number]: PT worked on standing, transfers, bed mobility, assist with dressing, OT worked on dressing, standing, assist with transfers and WC mobility. Pt given shorts, he was able to don onto LEs requiring x2 A in stand to manage pants up. He stood multiple times in order for nurse to perform skin check. Max A during stand due to pt having to stand on 1 leg, his leg looks seems like it can buckle at any time and he is a high fall risk. OT assisted pt with manuvering w/c around room prior to transfer to bed. Pt transferred w/c to bed. Post OT/PT cotreat, pt laying in bed, call light in reach nad all needs met . Education OT Patient Education: Correct positioning, Energy conservation, Modified ADL techniques, Progress toward Goal/Update tx plan, Purpose of tx/functional activities, Rehab process, Safety issues, Transfer techniques Teaching Recipient: Patient Teaching Methods: Discussion Response to Teaching: Verbalize Understanding OT Short Term Goals Short Term Goals Time Frame: Jan 17, 2020 Shower/bathe self: 2 OT Custodial Goals Custodial Goals Time Frame: Feb 01, 2020 Eating (QC): 6 Oral Hygiene (QC): 6 Toileting Hygiene (QC): 4 Shower/Bathe Self (QC): 3 Upper Body Dressing (QC): 5 Lower Body Dressing (QC): 3 On/Off Footwear (QC): 2 Additional Goals: 1-Demonstrate ADL Tasks, 2-Verbalize Understanding, 3- ImproveStrength/Farshad 1=Demonstrate adherence to instructed precautions during ADL tasks. 2=Patient will verbalize/demonstrate understanding of assistive devices/modifications for ADL. 3=Patient will improve strength/tolerance for activity to enable patient to perform ADL's. OT Education/Plan Problem List/Assessment Assessment: Decreased Activ Tolerance, Decreased UE Strength, Impaired Funct Balance, Impaired I ADL's, Impaired Self-Care Skills Discharge Recommendations Plan/Recommendations: Continue POC Therapy Discharge Recommendati: Other, See Comments (NH) Treatment Plan/Plan of Care Treatment,Training & Education: Yes Patient would benefit from OT for education, treatment and training to promote independence in ADL's, mobility, safety and/or upper extremity function for ADL's. Plan of Care: ADL Retraining, Functional Mobility, Group Exercise/Act as Ind, UE Funct Exercise/Act Treatment Duration: Feb 01, 2020 Frequency: At least 5 of 7 days/Wk (IRF) Estimated Hrs Per Day: 1.5 hours per day Agreement: Yes Rehab Potential: Guarded Time/GCodes Start Time: 11:10 Stop Time: 12:00 Total Time Billed (hr/min): 50 Billed Treatment Time 3504-0433 OT eval (10') [id number] OT/PT cotreat (40') 1, EVM (10'), FA 2 (40') JESUS SUTTON OT Jan 04, 2020 12:01
[2020-01-04] MEDS ORDERED: RT-ALBUTEROL/IPRATROPIUM 3 ML (DUONEB) VIAL INH PRN (13:14)
[2020-01-04] MEDS ORDERED: FERROUS SULF 325 MG (IRON) TAB PO SCH (13:14)
[2020-01-04] MEDS ORDERED: inSUlin ASPART (NovoLOG) 1 UNIT/0.01 ML (CHARGE PER UNIT) SQ SCH (13:14)
[2020-01-04] MEDS ORDERED: MECLIZINE 25 MG (ANTIVERT) TAB PO PRN (13:14)
[2020-01-04] MEDS ORDERED: ONDANSETRON 4 MG/2 ML (SDV) Z0FRAN IV PRN (13:14)
[2020-01-04] MEDS ORDERED: RT-ALBUTEROL/IPRATROPIUM 3 ML (DUONEB) VIAL INH SCH (13:14)
[2020-01-04] MEDS ORDERED: warFARin 10 MG (COUMADIN) TAB PO SCH (13:21)
[2020-01-04] MEDS: RT-ALBUTEROL/IPRATROPIUM 3 ML (DUONEB) VIAL INH SCH ×2 (14:18→18:44)
--- NOTE | 2020-01-04 14:52 | Physical Therapy Daily Note ---
PT Daily Note-Current Subjective Patient in bed pre tx, agrees to PT, voices no complaints of pain. Patient very drowsy but wakes after a few moments. Will be co-treating with OT due to poor patient mobility, strength, endurance, balance, the need to coordinate UE and LE during activity, and to decrease risk of falls. Appearance Patient in bed post tx with nurse call, phone, tray, all needs met. Mental Status Patient Orientation: Normal For Age Transfers SCALE: Activities may be completed with or without assistive devices. 1-Pknlvuchbm-kxlosco completes the activity by him/herself with no assistance from a helper. 5-Set-up or Clean-up Assistance-helper sets up or cleans up; patient completes activity. [place] assists only prior to or following the activity. 4-Supervision or Touching Assistance-helper provides verbal cues and/or touching/steadying and/or contact guard assistance as patient completes activity. Assistance may be provided throughout the activity or intermittently. 3-Partial/Moderate Assistance-helper does LESS THAN HALF the effort. [place] lifts, holds or supports trunk or limbs, but provides less than half the effort. 2-Substantial/Maximal Assistance-helper does MORE THAN HALF the effort. [place] lifts or holds trunk or limbs and provides more than half the effort. 8-Aeiyqdymc-bgenrc does ALL the effort. Patient does none of the effort to complete the activity. Or, the assistance of 2 or more helpers is required for the patient to complete the activity. If activity was not attempted, code reason: 7-Patient Refused. 9-Not Applicable-not attempted and the patient did not perform the activity before the current illness, exacerbation or injury. 10-Not Attempted due to Environmental Limitations-(lack of equipment, weather restraints, etc.). 88-Not Attempted due to Medical Conditions or Safety Concerns. Roll Left & Right (QC): 6 Sit to Lying (QC): 4 Lying to Sitting/Side of Bed(Q: 3 Sit to Stand (QC): 2 Chair/Wex-yz-Mdijz Xfer(QC): 2 Patient went supine to sit and then stand pivot to WC, propelled to therapy gym, stood x3 in the parallel bars with max assist, propelled to room, stand pivot transfer to bed, layed down in bed. Patient needs extra time for all activity due to fatigue. He does get SOB with activity. Weight Bearing right BKA Wheelchair Training Does the Pt Use a Wheelchair?: Yes Type of Wheelchair: Manual 120'x2, very slow, needs several rest breaks each way. Treatments bed mobility and transfers, WC mobility, standing. PT performed bed mobility and transfers and standing, OT assisted with transfers and UE positioning and s afety during mobility Assessment Current Status: Fair Progress unsteady during transfers PT Short Term Goals Short Term Goals Time Frame: Jan 11, 2020 Roll Left & Right: 6 Sit to lyin Lying to sitting on side of be: 4 Sit to stand: 3 Chair/wue-lo-juawv transfer: 3 PT Press Operator [place] Goals Press Operator [place] Goals PT Press Operator [place] Goals Time Frame: Jan 25, 2020 Roll Left & Right (QC): 6 Sit to Lying (QC): 6 Lying-Sitting on Side/Bed(QC): 6 Sit to Stand (QC): 5 Chair/Ukq-yh-Bwjdf Xfer(QC): 5 Toilet Transfer (QC): 5 Car Transfer (QC): 5 Does the Patient Walk: No and Walking Goal NOT indicated Walk 10 feet (QC): 88 Walk 50ft with 2 Turns (QC): 88 Walk 150 ft (QC): 88 Walking 10ft on Uneven Surface: 88 1 Step (curb) (QC): 88 4 Steps (QC): 88 12 Steps (QC): 88 Picking up an Object (QC): 88 Wheel 50 feet with 2 turns (QC: 6 Wheel 150 feet: 6 PT Plan Problem List Problem List: Activity Tolerance, Functional Strength, Safety, Balance, Gait, Transfer, Bed Mobility, ROM Treatment/Plan Treatment Plan: Continue Plan of Care Treatment Plan: Bed Mobility, Education, Functional Activity Farshad, Functional Strength, Group Therapy, Safety, Therapeutic Exercise, Transfers Treatment Duration: Jan 25, 2020 Frequency: At least 5 of 7 days/Wk (IRF) Estimated Hrs Per Day: 1.5 hours per day Patient and/or Family Agrees t: Yes Safety Risks/Education Patient Education: Transfer Techniques, Correct Positioning, W/C Management, Safety Issues Teaching Recipient: Patient Teaching Methods: Demonstration, Discussion Response to Teaching: Reinforcement Needed Time/GCodes Time In: 1400 Time Out: 1440 Total Billed Treatment Time: 40 Total Billed Treatment 1 visit FA 40' Co-treated for the whole 40'. BETTY STRONG PT Jan 04, 2020 14:52
--- NOTE | 2020-01-04 14:56 | Occupational Ther Daily Note ---
OT Current Status-Daily Note Subjective Pt laying in bed sleeping, easily awoken for therapy. OT/PT cotreat due to poor patient mobility, strength, endurance, balance, to coordinate UE and LE during activity, and to reduce risk of falls ADL-Treatment Therapy Code Descriptions/Definitions Functional [place] Measure: 0=Not Assessed/NA 4=Minimal Assistance 1=Total Assistance 5=Supervision or Setup 2=Maximal Assistance 6=Modified [place] 3=Moderate Assistance 7=Complete IndependenceSCALE: Activities may be completed with or without assistive devices. 7-Fveznkhewv-gbnpqyq completes the activity by him/herself with no assistance from a helper. 5-Set-up or Clean-up Assistance-helper sets up or cleans up; patient completes activity. Braymer assists only prior to or following the activity. 4-Supervision or Touching Assistance-helper provides verbal cues and/or touching/steadying and/or contact guard assistance as patient completes activity. Assistance may be provided throughout the activity or intermittently. 3-Partial/Moderate Assistance-helper does LESS THAN HALF the effort. Braymer lifts, holds or supports trunk or limbs, but provides less than half the effort. 2-Substantial/Maximal Assistance-helper does MORE THAN HALF the effort. Braymer lifts or holds trunk or limbs and provides more than half the effort. 1-Dcbxcjebl-ygfhun does ALL the effort. Patient does none of the effort to complete the activity. Or, the assistance of 2 or more helpers is required for the patient to complete the activity. If activity was not attempted, code reason: 7-Patient Refused. 9-Not Applicable-not attempted and the patient did not perform the activity before the current illness, exacerbation or injury. 10-Not Attempted due to Environmental Limitations-(lack of equipment, weather restraints, etc.). 88-Not Attempted due to Medical Conditions or Safety Concerns. Eating (QC): 5 (set up. OT opened sugar packet and poured into tea. Pt able to pharmacy picking technician bowl and bring food to his mouth.) Other Treatment OT/PT cotreat due to poor patient mobility, strength, endurance, balance, to coordinate UE and LE during activity, and to reduce risk of falls. OT focused on UE placement, w/c mobility, assist with standing, assist with transfers, cues and sequencing for safety while PT focused on transfers, standing balance, bed mobility, assist with w/c mobility. Pt transferred from supine to sit EOB, then to w/c with stand pivot transfer. He propelled to the therapy gym where he stood at parallel bars x3 standing trials (Max A each) with rest breaks between each trial. Pt then self-propelled w/c back to his room requiring multiple rest breaks. Pt transferred back to bed from w/c. Lunch tray placed in front of pt and he was able to eat with assistance from OT for setting up tea. Pt required extra time for all activities due to fatigue, and SOB with activity. Post OT/PT cotreat, pt laying in bed, call light in reach and all needs met. Education OT Patient Education: Correct positioning, Energy conservation, Modified ADL techniques, Progress toward Goal/Update tx plan, Purpose of tx/functional activities, Safety issues, Transfer techniques Teaching Recipient: Patient Teaching Methods: Discussion Response to Teaching: Verbalize Understanding OT Short Term Goals Short Term Goals Time Frame: Jan 17, 2020 Shower/bathe self: 2 OT Chcf Goals Chcf Goals Time Frame: Feb 01, 2020 Eating (QC): 6 Oral Hygiene (QC): 6 Toileting Hygiene (QC): 4 Shower/Bathe Self (QC): 3 Upper Body Dressing (QC): 5 Lower Body Dressing (QC): 3 On/Off Footwear (QC): 2 Additional Goals: 1-Demonstrate ADL Tasks, 2-Verbalize Understanding, 3- ImproveStrength/Farshad 1=Demonstrate adherence to instructed precautions during ADL tasks. 2=Patient will verbalize/demonstrate understanding of assistive devices/modifications for ADL. 3=Patient will improve strength/tolerance for activity to enable patient to perform ADL's. OT Education/Plan Problem List/Assessment Assessment: Decreased Activ Tolerance, Decreased UE Strength, Impaired Funct Balance, Impaired I ADL's, Impaired Self-Care Skills Discharge Recommendations Plan/Recommendations: Continue POC Treatment Plan/Plan of Care Patient would benefit from OT for education, treatment and training to promote independence in ADL's, mobility, safety and/or upper extremity function for ADL's. Plan of Care: ADL Retraining, Functional Mobility, Group Exercise/Act as Ind, UE Funct Exercise/Act Treatment Duration: Feb 01, 2020 Frequency: At least 5 of 7 days/Wk (IRF) Estimated Hrs Per Day: 1.5 hours per day Agreement: Yes Rehab Potential: Guarded Time/GCodes Start Time: 14:00 Stop Time: 14:40 Total Time Billed (hr/min): 40 Billed Treatment Time OT/PT cotreat [id number] 1, FA 3 (40') JESUS SUTTON OT Jan 04, 2020 14:56
--- NOTE | 2020-01-04 15:13 | ST Cognitive Linguistic Eval ---
Speech Evaluation-General Medical Diagnosis debility, edema, hyperglycemia Onset Date: Jan 02, 2020 Therapy Diagnosis Therapy Diagnosis: Cognitive-communication Referral Referring Physician: Dr. Oconnor Medical History Pertinent Medical History: Arthritis, CABG, CAD, COPD, DM, HTN, [place], Neuropathy Reviewed History: Yes Social History Home: Apartment Current Living Status: Alone Speech PLF-Current Status Prior Level of Function Patient lives in an assisted living apartment where he receives assistance from family and staff. Subjective Patient was pleasant and cooperative with cognitive assessment. Language Eval: Auditory Comprehends Simple Yes/No Ques: Functional Indent/Objects Multiple Yoon: Functional Ident/Pics in Multiple Yoon: Functional Follows 1-Step Commands: Functional Follows Complex Directions: Functional Follows General Conversations: Functional Language Eval: Verbal Language Completes Spontaneous Greeting: Functional Produces Auto, Serial Info: Functional Imitates Simple Words/Phrases: Functional Word Finding: Functional Requests Basic Needs: Functional States Basic Personal Info: Functional Expresses Complex Ideas: Functional Objective Cognitive Domain Attention: WNL Memory: WNL Problem Solving: Functional Executive Functions: WNL Visuospatial Skills: WNL Composite Severity Rating: WNL Clock Drawing Severity Rating: WNL Objective Formal/Standardized Tests [facility] Mental Status ([facility]) Results 28/30, within normal limits Oral Motor/Speech Production Within Normal Limits Impression Patient is a 69 y/o male who was admitted to the ARU due to debility. Patient was given the SLUMS at bedside with a score of 28/30 obtained. Patient does not require ST services at this time. Speech Patient Assess Expression of Ideas/Wants: Expression (4) Understanding Verbal Content: Understands (4) Brief Interview-Mental Status: Yes Repetition of Three Words: Three (3) Temporal Orientation: Year: Correct (3) Temporal Orientation: Month: Accurate within 5 days(2) Temporal Orientation: Day: Correct (1) Recall : Wear to say "Sock": Yes,after cueing (1) Recall : Color: Yes, after cueing (1) Recall : Bed: Yes, no cue required (2) Memory/Recall Ability: Current season, That he or she is in a hsp/hsp unit Speech-Plan Patient/Family Goals Patient/Family Goals: Patient plans on returning to his apartment and living situation upon discharge. Treatment Plan Speech Therapy Treatment Plan: Discontinue ST Treatment Duration: Jan 04, 2020 Frequency: 1 time per week Estimated Hrs Per Day: .25 hour per day Rehab Potential: Guarded Barriers to Learning: None identified from testing, patient is self limiting it appears Pt/Family Agrees to Plan: Yes Safety Risks/Education Teaching Recipient: Patient Teaching Methods: Discussion Response to Teaching: Verbalize Understanding Education Topics Provided: Safety within his room and communication of wants/needs Time Speech Therapy Time In: 14:45 Speech Therapy Time Out: 15:00 Total Billed Time: 15 Billed Treatment Time 1, SPSNDCOMP CRISTEL Montero Jan 04, 2020 15:13
[2020-01-04] MEDS: inSUlin ASPART (NovoLOG) 1 UNIT/0.01 ML (CHARGE PER UNIT) SC SCH ×2 (15:32→20:25)
[2020-01-04] MEDS: FUROSEMIDE 40 MG (LASIX) TAB PO SCH (17:19)
[2020-01-04] MEDS: ASCORBIC ACID (VIT C) 500 MG TABLET PO SCH (17:19)
[2020-01-04] MEDS: inSUlin ASPART (NovoLOG) 1 UNIT/0.01 ML (CHARGE PER UNIT) SQ SCH (17:19)
[2020-01-04] MEDS: DOXYCYCLINE 100 MG (VIBRAMYCIN) TABLET PO SCH (17:29)
[2020-01-04 17:35] VITALS: BP 133/73
--- NOTE | 2020-01-04 17:41 | PM&R Post Admission Assessment ---
PM&R HP Date of Visit: Jan 04, 2020 Time of Visit: 11:00 History of Present Illness CC: Debility with hyperglycemia HPI: This is a 69yoWM [facility] assisted living patient of Dr. Pelletier who presented with hyperglycemia, subtherapeutic INR and severe debility on chronic debility. Pt was found to have severely high sugars, needed an adjustment of his anticoagulation and needed further management with medication changes and ov erall strengthening prior to going back to [facility], so he met criteria for inpatient rehab. He did have a low sugar of 74 that was symptomatic prior to moving to inpatient rehab, but we will discontinue the catheter before transfer and Pt was willing to join the inpatient rehab team to get strong enough to be able to go back to [facility]. Patient meets IRF criteria and does not have a qualifying 60% diagnosis. Patient will be admitted to IRF due to the current COVID-19 crisis. This patient is an appropriate ARU 40% patient, who during this COVID emergency, requires the admission to acute rehab. Past Rjgbgnx-Qsvaac-Klnjcl Hx Past Med/Social Hx: Reviewed Nursing Past Med/Soc Hx, Reviewed and Corrections made Patient Social History Marrital Status: single Employed/Student: unemployed Alcohol Use: Denies Use Recreational Drug Use: Yes Drug of Choice: past hx drug use. Smoking Status: Former Smoker Former Smoker, Quit: Jul 07, 2006 2nd Hand Smoke Exposure: No Physical Abuse Screen: No Sexual Abuse: No Recent Foreign Travel: No Contact w/other who traveled: No Recent Hopitalizations: Yes Recent Infectious Disease Expo: No Immunizations Up To Date Tetanus Booster (TDap): Unknown Pediatric: No Date of Pneumonia Vaccine: May 02, 2018 Seasonal Allergies Seasonal Allergies: No Past Medical History Surgeries: Cardiac, CABG, Coronary Stent, Orthopedic Respiratory: Sleep Apnea Currently Using CPAP: Yes Currently Using BIPAP: No Cardiac: Cardiomyopathy, Chronic Edema/Swelling, Coronary Artery Disease, Deep Vein Thrombosis, Heart Attack, High Cholesterol, Hypertension, Peripheral Vascular, Syncope Neurological: Neuropathy, Vertigo Reproductive: No Gastrointestinal: Gall Bladder Disease Musculoskeletal: Degenerate Disk Disease, Arthritis, Chronic Back Pain Endocrine: Diabetes, Insulin dep Loss of Vision: Bilateral Skin/Integumentary: Recent Skin Changes History of Blood Disorders: No Family History Cardiovascular disease 19 FATHER, Onset:Unknown FH: breast cancer G8 SISTER, Onset:50's - 60 FH: ovarian cancer 19 MOTHER, Onset:40's - 50 No Family History of: Cancer of mouth Heart Disease, Cancer Prior Level of Function Bed Mobility: 6 Transfers: 6 Prior Devices Use: Motorized scooter Self Care: Needed Some Help Functional Cognition: Independent Current Level of Fuctioning Roll Left to Right: 6 Sit to Lyin Lying to Sitting/Side of Bed: 3 Sit to Stand: 2 Chair/Dus-lz-Yvnwg Xfer: 2 Car Transfer: 1 Does the Patient Walk: No and Walking Goal NOT indicated Walk 10 feet: 88 Walk 50 ft with 2 Turns: 88 Walk 150 ft: 88 Walking 10ft on uneven surface: 88 Does the Pt Use a Wheelchair: Yes Wheel 50 ft with 2 turns: 1 Wheel 150 ft: 1 Type of Wheelchair: Manual 1 Step (curb): 88 4 Steps: 88 12 Steps: 88 Picking up an Object: 88 Eatin (set up. OT opened sugar packet and poured into tea. Pt able to strip picker bowl and bring food to his mouth.) Oral Hygiene: 7 Shower/Bathe Self: 7 Upper Body Dressin (Pt wearing hospital gown. He did not have a shirt to don/doff. ARU attempted to find shirt for pt to use, but did not have one large enough.) Lower Body Dressin (Assist x2 in mapping pilot order to manage pants up. 1 person to focus on balance and 1 to manage clothing. Pt able to thread pants onto BLEs.) On/Off Footwear: 1 (Pt unable to don/doff sock onto L foot. He reports being dependent for task at OF) Toileting Hygiene: 7 PM&R Allergy/Meds/Data Review Allergies Coded Allergies: niacin (Unverified Allergy, Unknown, 06/26/10) rosuvastatin (Verified Allergy, Unknown, 04/20/07) fenofibrate (Unverified Adverse Reaction, Unknown, LIVER PROBLEMS, 01/23/15) Home Medications Scheduled Allopurinol (Allopurinol), 100 MG PO DAILY, (Reported) Amitriptyline HCl (Amitriptyline HCl), 25 MG PO HS, (Reported) Amlodipine Besylate (Amlodipine Besylate), 10 MG PO DAILY, (Reported) Ascorbic Acid (Ascorbic Acid), 500 MG PO BID, (Reported) Aspirin (Aspirin EC), 81 MG PO DAILY, (Reported) Calcium Carbonate/Vitamin D3 (Calcium 600 + Vit D 400 Tablet), 1 TAB PO DAILY, (Reported) Carvedilol (Carvedilol), 25 MG PO BID, (Reported) Cholecalciferol (Vitamin D3) (D3-2000), 50 MCG PO BID, (Reported) Ferrous Sulfate (Ferrous Sulfate), 325 MG PO Q48H, (Reported) Finasteride (Finasteride), 5 MG PO HS, (Reported) Folic Acid (Folic Acid), 1 MG PO DAILY, (Reported) Furosemide (Lasix), 40 MG PO BID, (Reported) Gemfibrozil (Gemfibrozil), 600 MG PO DAILY, (Reported) Hydralazine HCl (Hydralazine HCl), 100 MG PO TID, (Reported) Insulin Aspart (Novolog), 18 UNIT SQ TIDAC, (Reported) Insulin Determir (Levemir), 67 UNITS SC BID, (Reported) Magnesium Oxide (Magnesium), 400 MG PO DAILY, (Reported) [place]-3/Dha/Epa/Fish Oil (Fish Oil 1,000 mg Softgel), 1,000 MG PO BID, (Reported) Potassium Chloride (Potassium Chloride), 20 MEQ PO DAILY, (Reported) Tamsulosin HCl (Flomax), 0.4 MG PO HS, (Reported) Venlafaxine HCl (Venlafaxine HCl ER), 150 MG PO DAILY, (Reported) Vitamin E Acetate (Vitamin E), 400 UNIT PO DAILY, (Reported) Warfarin Sodium (Warfarin Sodium), 10 MG PO Q48H, (Reported) Warfarin Sodium (Warfarin Sodium), 5 MG PO Q48H, (Reported) Scheduled PRN Ipratropium/Albuterol Sulfate (Iprat-Albut 0.5-3(2.5) mg/3 ml), 3 ML IH Q6H PRN for SHORTNESS OF BREATH, (Reported) Meclizine HCl (Meclizine HCl), 25 MG PO BID PRN for DIZZINESS, (Reported) Ondansetron HCl (Zofran), 8 MG PO Q8H PRN for NAUSEA/VOMITING-1ST LINE, (Reported) Discontinued Medications Cephalexin (Keflex), 500 MG PO BID Discontinued Reason: No Longer Taking Current Medications Current Medications Reviewed Laboratory Data Laboratory Tests 01/04/20 17:03: Glucometer 326H Review of Systems Constitutional: see HPI, malaise, weakness EENTM: no symptoms reported Respiratory: no symptoms reported Cardiovascular: no symptoms reported Gastrointestinal: constipation Genitourinary: no symptoms reported Musculoskeletal: back pain All Other Systems Reviewed Negative Unless Noted: Yes Physical Exam Physical Exam Vital Signs Vital Signs - First Documented 01/04/20 01/04/20 11:51 11:55 Temp 36.4 Pulse 73 Resp 22 B/P (MAP) 115/69 Pulse Ox 93 O2 Delivery NIV CPAP O2 Flow Rate 4.00 Capillary Refill : Height, Weight, BMI Height: 6'0.00" Weight: 322lbs. 1.0oz. [id number]; 47.39 BMI Method:Stated General Appearance: No Apparent Distress, WD/WN, Chronically ill, Obese Eyes: Bilateral Eye Normal Inspection, Bilateral Eye PERRL HEENT: PERRL/EOMI, Normal ENT Inspection, Pharynx Normal Neck: Full Range of Motion, Normal Inspection, Non Tender, Supple, Carotid Bruit Respiratory: Chest Non Tender, Lungs Clear, Normal Breath Sounds, No Accessory Muscle Use, No Respiratory Distress Cardiovascular: Regular Rate, Rhythm, No Edema, No Gallop, No JVD, No Murmur, Normal Peripheral Pulses Gastrointestinal: Normal Bowel Sounds, No Organomegaly, No Pulsatile Mass, Non Tender, Soft Back: Normal Inspection, No CVA Tenderness, No Vertebral Tenderness Extremity: Normal Capillary Refill, Normal Inspection, Normal Range of Motion, Non Tender, No Calf Tenderness, No Pedal Edema Neurologic/Psychiatric: Alert, Oriented x3, No Motor/Sensory Deficits, Normal Mood/Affect Skin: Normal Color, Warm/Dry Lymphatic: No Adenopathy PM&R Medical Assessment & Plan REHAB/MEDICAL ASSESSMENT AND PLAN: REHAB IMPAIRMENT GROUP: Debility ETIOLOGIC DIAGNOSIS: Debility The comorbidities that impact the patients function and/or functional outcome by: poor motivation, severe DM OOC, falls, TREE severe, obesity REHAB PLAN: The patient is being admitted to our comprehensive inpatient rehabilitation facility and can tolerate the intensity of service consisting of at least: 180 minutes of therapy a day, 5 out of 7 days a week Rehab treatment will consist of: PT OT will focus on regaining ADL independence and increase stamina including fall prevention and improve enough to return to [place] The patient/family has a good understanding of our discharge process and will benefit from an interdisciplinary inpatient rehabilitation program. The patient has potential to make improvement and is in need of at least two of the following multidisciplinary therapies including but not limited to physical, occupational, speech, and prosthetics and orthotics. Additionally the patient will need services from respiratory, nutritional services, wound care, psychology, etc. (Customize this to each patient). Given the patients complex condition and risk of further medical complications, rehabilitation services cannot be safely or effectively provided at a lower level of care such as a fdc facility. BARRIERS TO DISCHARGE: Poor motivation chronic ESTIMATED LOS: 7 days DISPOSITION: [place] RELEVANT CHANGES SINCE PREADMISSION SCREENING: I have compared the patients medical and functional status at the time of the preadmission screening and there are: no changes PROGNOSIS: Good REHABILITATION GOALS: 1. PT OT will focus on regaining ADL independence and increase stamina including fall prevention and improve enough to return to [place] All the above goals were reviewed with the patient and he/she is in agreement. By signing this document, I acknowledge that I have personally performed a full physical examination on this patient within 24 hours of admission to this inpatient rehabilitation facility and have determined the patient to be able to tolerate the above course of treatment at an intensive level for a reasonable period of time. I will be completing a detailed individualized Plan of Care for this patient by day #4 of the patients stay based upon the Preadmission Screen, the Post-Admission Evaluation, and the therapy evaluations. Admission Dx/Comorbidities: (1) Debility ICD Codes: R53.81 - Other malaise (2) Diabetes mellitus, insulin dependent (IDDM), uncontrolled Status: Acute ICD Codes: E10.65 - Type 1 diabetes mellitus with hyperglycemia (3) TREE (obstructive sleep apnea) Status: Chronic ICD Codes: G47.33 - Obstructive sleep apnea (adult) (pediatric) (4) Renal insufficiency Status: Acute ICD Codes: N28.9 - Disorder of kidney and ureter, unspecified (5) CAD (coronary artery disease) Status: Chronic ICD Codes: I25.10 - Atherosclerotic heart disease of [place] coronary artery without angina pectoris (6) Hypoxia Status: Acute ICD Codes: R09.02 - Hypoxemia Assessment/Plan Assessment and Plan Assess & Plan/Chief Complaint Assessment: Debility Falls DM OOC Left foot wound h/o right BKA CAD CABG hx PVD Coumadin treatment Peripheral neuropathy CKD CHF Poor motivation TREE Plan: IRF protocol Home meds Monitor INR Sugar management GODFREY ZEPEDA DO Jan 04, 2020 17:40
[2020-01-04] MEDS ORDERED: warFARin 5 MG (COUMADIN) TAB PO SCH (18:00)
--- NOTE | 2020-01-04 18:00 | NUR ---
Pt unable to urinate after being brought down from 4th floor post dumont removal. Pt bladder scanned and resulted in 473. Dr. Oconnor notified and new orders received for PRN straight cath. Pt refuses straight cath at this time stating he "just needs more time". This RN explained that if he doesn't go by late this evening that we may have to straight cath him. Pt agreed to a later time if needed.
[2020-01-04] MEDS: polyethylene glycoL POWDER 17 GM (MIRALAX) PACK PO SCH (20:10)
[2020-01-04] MEDS: DOCUSATE SODIUM 100 MG (COLACE) CAP PO SCH (20:28)
[2020-01-04] MEDS: hydrALAZINE (APRESOLINE) 25 MG TAB PO SCH (20:28)
[2020-01-04] MEDS: CARVEDILOL 12.5 MG (COREG) TABLET PO SCH (20:28)
[2020-01-04] MEDS: AMITRIPTYLINE 25 MG (ELAVIL) TAB PO SCH (20:29)
[2020-01-04] MEDS: OMEGA 3 (FISH OIL) 1000 MG CAP PO SCH (20:29)
[2020-01-04] MEDS: SENNA W/DOCUSATE (SENOKOT S) TABLET PO SCH (20:29)
[2020-01-04] MEDS: TAMSULOSIN 0.4 MG (FLOMAX) CAP PO SCH (20:29)
[2020-01-04] MEDS: CEFDINIR 300 MG (OMNICEF) CAP PO SCH (20:29)
[2020-01-04] MEDS: FINASTERIDE (PROSCAR) 5 MG TAB PO SCH (20:29)
[2020-01-04] MEDS: VITAMIN D3 25 MCG (1,000 UNITS) TABLET PO SCH (20:30)
[2020-01-05 06:00] VITALS: BP 147/78
--- NOTE | 2020-01-05 06:44 | PM&R Progress Note ---
Subjective HPI/CC On Admission Date Seen by Provider: Jan 05, 2020 Time Seen by Provider: 10:00 Subjective/Events-last exam Patient doing well Creatinine is 1.8 INR 1.4 so will increase Coumadin and start Lovenox 1mg/kg coverage until therapeutic PCP placed him on Coumadin due to [place] stenosis 1 year ago No BM willing to take laxatives No pain reported Limited motivation CPAP every nap and at night Checked meds and labs Checked therapy notes Conferred with biofuels plant superintendent of Systems General: Fatigue Neurological: Weakness, Numbness, Incoordination Objective Exam Vital Signs Vital Signs Date Time Temp Pulse Resp B/P (MAP) Pulse Ox O2 Delivery O2 Flow Rate FiO2 01/05/20 07:34 92 NIV CPAP 4.00 01/05/20 06:00 37.4 80 18 147/78 (101) 01/04/20 18:48 36 Capillary Refill : Less Than 3 Seconds General Appearance: No Apparent Distress, WD/WN, Chronically ill, Obese HEENT: PERRL/EOMI, Normal ENT Inspection, Pharynx Normal Neck: Full Range of Motion, Normal Inspection, Non Tender, Supple, Carotid Bruit Respiratory: Chest Non Tender, Lungs Clear, Normal Breath Sounds, No Accessory Muscle Use, No Respiratory Distress Cardiovascular: Regular Rate, Rhythm, No Edema, No Gallop, No JVD, No Murmur, Normal Peripheral Pulses Gastrointestinal: Normal Bowel Sounds, No Organomegaly, No Pulsatile Mass, Non Tender, Soft Back: Normal Inspection, No CVA Tenderness, No Vertebral Tenderness Extremity: Normal Capillary Refill, Normal Inspection, Normal Range of Motion, Non Tender, No Calf Tenderness, No Pedal Edema, Other (right AKA) Neurologic/Psychiatric: Alert, Oriented x3, No Motor/Sensory Deficits, Normal Mood/Affect, research and development engineer II-XII Norm as Tested, Motor Weakness (generalized weakness left leg) Skin: Normal Color, Warm/Dry Lymphatic: No Adenopathy Results/Procedures Lab Laboratory Tests 01/05/20 05:37 Patient resulted labs reviewed. FIM Transfers Therapy Code Descriptions/Definitions Functional [place] Measure: 0=Not Assessed/NA 4=Minimal Assistance 1=Total Assistance 5=Supervision or Setup 2=Maximal Assistance 6=Modified [place] 3=Moderate Assistance 7=Complete IndependenceSCALE: Activities may be completed with or without assistive devices. 2-Rrlscfvlsa-ixhxejb completes the activity by him/herself with no assistance from a helper. 5-Set-up or Clean-up Assistance-helper sets up or cleans up; patient completes activity. [place] assists only prior to or following the activity. 4-Supervision or Touching Assistance-helper provides verbal cues and/or touching/steadying and/or contact guard assistance as patient completes activity. Assistance may be provided throughout the activity or intermittently. 3-Partial/Moderate Assistance-helper does LESS THAN HALF the effort. [place] lifts, holds or supports trunk or limbs, but provides less than half the effort. 2-Substantial/Maximal Assistance-helper does MORE THAN HALF the effort. [place] lifts or holds trunk or limbs and provides more than half the effort. 2-Axyhqukwy-whxdfu does ALL the effort. Patient does none of the effort to complete the activity. Or, the assistance of 2 or more helpers is required for the patient to complete the activity. If activity was not attempted, code reason: 7-Patient Refused. 9-Not Applicable-not attempted and the patient did not perform the activity before the current illness, exacerbation or injury. 10-Not Attempted due to Environmental Limitations-(lack of equipment, weather restraints, etc.). 88-Not Attempted due to Medical Conditions or Safety Concerns. Roll Left to Right (QC): 6 Sit to Lying (QC): 4 Sit to Stand (QC): 2 Chair/Ufd-gg-Iflby Xfer(QC): 2 Car Transfer (QC): 1 Gait Training Does the Patient Walk?: No and Walking Goal NOT indicated Walk 10 feet (QC): 88 Walk 50 ft with 2 Turns(QC): 88 Walk 150 ft (QC): 88 Walking 10ft/uneven surface-QC: 88 Wheelchair Training Does the Pt Use a Wheelchair?: Yes Wheel 50 ft with 2 turns (QC): 1 Wheel 150 ft (QC): 1 Type of Wheelchair: Manual Stair Training 1 Step (curb) (QC): 88 4 Steps (QC): 88 12 Steps (QC): 88 Balance Picking up an Object (QC): 88 ADL-Treatment Eating (QC): 5 (set up. OT opened sugar packet and poured into tea. Pt able to moss picker bowl and bring food to his mouth.) Oral Hygiene (QC): 7 Shower/Bathe Self (QC): 7 Upper Body Dressing (QC): 10 (Pt wearing hospital gown. He did not have a shirt to don/doff. ARU attempted to find shirt for pt to use, but did not have one large enough.) Lower Body Dressing (QC): 1 (Assist x2 in information systems security officer order to manage pants up. 1 person to focus on balance and 1 to manage clothing. Pt able to thread pants onto BLEs.) On/Off Footwear (QC): 1 (Pt unable to don/doff sock onto L foot. He reports being dependent for task at PLOF) Toileting Hygiene (QC): 7 Assessment/Plan Assessment and Plan Assess & Plan/Chief Complaint Assessment: Debility Falls DM OOC Left foot wound h/o right BKA CAD CABG hx PVD Coumadin treatment Peripheral neuropathy CKD CHF Poor motivation TREE [place] stenosis maintained on Coumadin Plan: IRF protocol Home meds Monitor INR Sugar management Lovenox (1) Debility (2) Diabetes mellitus, insulin dependent (IDDM), uncontrolled Status: Acute (3) TREE (obstructive sleep apnea) Status: Chronic (4) Renal insufficiency Status: Acute (5) CAD (coronary artery disease) Status: Chronic (6) Hypoxia Status: Acute GODFREY ZEPEDA DO Jan 05, 2020 06:44
--- NOTE | 2020-01-05 06:44 | Individualized Plan of Care ---
Individualized Plan of Care Rehab Nursing IPOC Order Admission Date Jan 04, 2020 at 11:00 Current Orders Orders Admission Order(Inpt,Obs,Sdc) (01/04/20 10:23) Vital Signs: Per Unit Policy ( 08,16,00 (01/04/20 10:23) Wash Tank Tender-Inpt Rehab Con (01/04/20 10:23) Rehab Nursing Orders-Ipoc (01/04/20 10:23) Physical Therapy Rehab Orders (01/04/20 10:23) Occupational Therapy Rehab Ord (01/04/20 10:23) Speech Therapy Rehab Orders (01/04/20 10:23) Cbc With Automated Diff (01/05/20 06:00) Comprehensive Metabolic Panel (01/05/20 06:00) Intake & Output 06,14,22 (01/04/20 10:23) Accucheck Achs ACHS (01/04/20 10:23) Precautions (Aru) (01/04/20 10:23) Rehab-Intensity Of Therapy (01/04/20 10:23) Cho 60g/M 3snack (16-2000 Yang) (01/04/20 Dinner) Initiate Admission Nursing Pro .admission (01/04/20 10:23) Alprazolam Tablet (Xanax Tablet) (01/04/20 10:30) Calcium Carbonate Chew Tablet (Antacid C (01/04/20 10:30) Diphenhydramine Tablet (Benadryl Tablet) (01/04/20 10:30) Docusate Sodium Capsule (Colace Capsule) (01/04/20 21:00) Docusate Sodium Capsule (Colace Capsule) (01/04/20 10:30) Bisacodyl Suppository (Dulcolax Supposit (01/04/20 10:30) Lactulose Oral Solution (Enulose Oral So (01/04/20 10:30) Na Phos/Na Biphos Enema (Fleet Enema Cirilo (01/04/20 10:30) Guaifenesin/Codeine Syrup (Robitussin Ac (01/04/20 10:30) Loperamide Tablet (Imodium Tablet) (01/04/20 10:30) Melatonin Tablet (Melatonin Tablet) (01/04/20 10:30) Polyethylene Glycol Powder Pkt (Miralax (01/04/20 21:00) Ondansetron Oral Dissolve Tab (Zofran (01/04/20 10:30) Senna S Tablet (Senokot S Tablet) (01/04/20 21:00) Initiate Admission Nursing Pro .admission (01/04/20 10:23) Admission Arrival Bed Request (01/04/20 11:53) Ambulate 08,12,20 (01/04/20 12:01) Sequential Compression Device Q4H (01/04/20 12:01) Dvt/Vte Risk - Notifiy Physici Q4H (01/04/20 12:01) Pharmacy Communication (Pharmacy Communi (01/04/20 13:00) Dressing Order (Intervention) DAILY PRN (01/04/20 12:56) Dressing Order (Intervention) DAILY PRN (01/04/20 12:56) Dressing Order (Intervention) DAILY PRN (01/04/20 12:56) Albuterol/Ipra Inhalation Soln (Duoneb I (01/04/20 13:14) Albuterol/Ipra Inhalation Soln (Duoneb I (01/04/20 13:14) Ondansetron Injection (Zofran Injectio (01/04/20 13:14) Insulin Aspart (Novolog) (Novolog (Charg (01/04/20 13:14) Allopurinol Tablet (Zyloprim Tablet) (01/04/20 13:14) Amitriptyline Tablet (Elavil Tablet) (01/04/20 13:14) Amlodipine Tablet (Norvasc Tablet) (01/04/20 13:14) Ascorbic Acid Tablet (Vitamin C Tablet) (01/04/20 13:14) Aspirin Enteric Coated Tablet (Ecotrin T (01/04/20 13:14) Ferrous Sulfate Tablet (Feosol Tablet) (01/04/20 13:14) Finasteride Tablet (Proscar Tablet) (01/04/20 13:14) Folic Acid Tablet (Folic Acid Tablet) (01/04/20 13:14) Furosemide Tablet (Lasix Tablet) (01/04/20 13:14) Gemfibrozil Tablet (Lopid Tablet) (01/04/20 13:14) Insulin Aspart (Novolog) (Novolog (Charg (01/04/20 13:14) Meclizine Tablet (Antivert Tablet) (01/04/20 13:14) Tamsulosin Capsule (Flomax Capsule) (01/04/20 13:14) Magnesium Oxide Tablet (Mag Ox Tablet) (01/04/20 13:14) Carvedilol Tablet (Coreg Tablet) (01/04/20 13:14) Ondansetron Oral Dissolve Tab (Zofran (01/04/20 13:14) Dl-Alpha Tochopheryl Capsule (Vitamin E (01/04/20 13:14) [place] 3 Capsule (Fish Oil Capsule) (01/04/20 13:14) Potassium Chloride (Tablet) (K Dur Table (01/04/20 13:14) Insulin Determir (Per Unit) (Levemir (Pe (01/04/20 13:14) Cholecalciferol Capsule/Tablet (Vitamin (01/04/20 13:14) Triamcinolone 0.5% Cream (Kenalog 0.5% C (01/04/20 13:14) Miconazole 2% Powder (Desenex Af 2% Powd (01/04/20 13:14) Doxycycline Hyclate Tablet (Vibramycin T (01/04/20 13:14) Cefdinir Capsule (Omnicef Capsule) (01/04/20 13:14) Venlafaxine Xr Capsule (Effexor Xr Capsu (01/04/20 13:14) Hydralazine Tablet (Apresoline Tablet) (01/04/20 13:16) Ferrous Sulfate Tablet (Feosol Tablet) (01/05/20 13:00) Warfarin Tablet (Coumadin Tablet) (01/04/20 18:00) Warfarin Tablet (Coumadin Tablet) (01/04/20 13:21) Warfarin Tablet (Coumadin Tablet) (01/05/20 18:00) Albuterol/Ipra Inhalation Soln (Duoneb I (01/04/20 14:00) Insulin Aspart (Novolog) (Novolog (Charg (01/04/20 17:00) Insulin Determir (Per Unit) (Levemir (Pe (01/04/20 21:00) Patient Visit (01/04/20 ) Pt Eval Moderate Complexity (01/04/20 ) Functional Activities, Ea 15 (01/04/20 ) Patient Visit (01/04/20 ) Speech Sound Lang Comp (01/04/20 ) Straight Cath (Urinary) (01/04/20 18:36) Protime With Inr (01/05/20 06:25) Warfarin Tablet (Coumadin Tablet) (01/05/20 18:00) Enoxaparin Injection (Mdv) (Lovenox Inje (01/05/20 11:00) Rehab Nursing Orders: Ongoing Assess. of Cognitive Status, Ongoing Assess. of Function Status, Bladder Management, Bladder Scan, Bladder Training, Bowel Management, Bowel Training, Disease Management & Educaiton, DVT Prophylaxis, Fall Prevention, Fluid/Electrolyte/Nutrition Mgmt, Infection Prevention, M edication Management & Education, Management of Risks & Complications, Management of Skin Intergrity, Nutrition Management, Pain Management, Patient/Family Support, Safety Management, Weight Bearing Precaution, Wound Management Intensity of Therapy to be met Patient to be seen: Min.3h per day/5 of 7d PT IPOC Problem List: Activity Tolerance, Functional Strength, Safety, Balance, Gait, Transfer, Bed Mobility, ROM Treatment Plan: Continue Plan of Care Bed Mobility, Education, Functional Activity Farshad, Functional Strength, Group Therapy, Safety, Therapeutic Exercise, Transfers Treatment Duration: Jan 25, 2020 Frequency: At least 5 of 7 days/Wk (IRF) Estimated Hrs Per Day: 1.5 hours per day OT IPOC Problems: Decreased Activ Tolerance, Decreased UE Strength, Impaired Funct Balance, Impaired I ADL's, Impaired Self-Care Skills OT Treatment, Training and Edu: Yes Plan of Care: ADL Retraining, Functional Mobility, Group Exercise/Act as Ind, UE Funct Exercise/Act Treatment Duration: Feb 01, 2020 Frequency: At least 5 of 7 days/Wk (IRF) Estimated Hrs Per Day: 1.[address] IPOC Speech Therapy Treatment Plan: Discontinue ST Treatment Duration: Jan 04, 2020 Frequency: 1 time per week Estimated Hrs Per Day: .25 hour per day Wash Tank Tender/Case Mgmt Wash Tank Tender/Case Managemen: Discharge Planning Dietitian/Area Captain Dietitian/Area Captain to monitor nutritional status and make changes and/or recommendations as needed and work with speech pathology on dietary upgrades as the occur. Physician IPOC Medical Issues being managed closely and that require the 24 hour availability of a physician: Severe comorbid conditions require close monitoring by physician and close INR monitoring with sugar management Medical Issues: Bowel/Bladder Function, DVT Prophylaxis, Falls Precautions, Fluid/Electrolyte/Nutrition Balance, Infection Protection, Wound Care Brief Synthesis of Preadmission Screen, Post-Admission Evaluation, and Therapy Evaluations: PT OT will work with patient to improve ADL independence while tending to left leg wound while Lovenox initiation until INR therapeutic and stricter glucose management. Medical Prognosis: Good Anticipated Length of Stay: 7 days GODFREY ZEPEDA DO Jan 05, 2020 06:44
[2020-01-05] MEDS: KCL 20 MEQ TAB (K-DUR) PO SCH (06:47)
[2020-01-05] MEDS: VENlafaxine XR 75 MG (EFFEXOR XR) CAP PO SCH (06:48)
[2020-01-05] MEDS: inSUlin ASPART (NovoLOG) 1 UNIT/0.01 ML (CHARGE PER UNIT) SC SCH ×4 (06:48→19:56)
[2020-01-05] MEDS: DOXYCYCLINE 100 MG (VIBRAMYCIN) TABLET PO SCH ×2 (06:48→17:27)
[2020-01-05] MEDS: FUROSEMIDE 40 MG (LASIX) TAB PO SCH ×2 (06:48→17:27)
[2020-01-05] MEDS: inSUlin ASPART (NovoLOG) 1 UNIT/0.01 ML (CHARGE PER UNIT) SQ SCH ×3 (06:49→17:29)
[2020-01-05 07:04] LABS: BASOPHILS % (AUTO) 0 % (0-10); EOSINOPHILS # (AUTO) 0.1 10^3/uL (0.0-0.3); EOSINOPHILS % (AUTO) 1 % (0-10); HEMATOCRIT 32 % (40-54); HEMOGLOBIN 10.6 G/DL (13.3-17.7); LYMPHOCYTES % (AUTO) 13 % (12-44); MEAN CORPUSCULAR HEMOGLOBIN 28 PG (25-34); MEAN CORPUSCULAR HGB CONC 33 G/DL (32-36); MEAN CORPUSCULAR VOLUME 85 FL (80-99); MEAN PLATELET VOLUME 11.1 FL (7.4-10.4); MONOCYTES # (AUTO) 0.8 X 10^3 (0.0-1.0); MONOCYTES % (AUTO) 11 % (0-12); NEUTROPHILS # (AUTO) 5.6 X 10^3 (1.8-7.8); NEUTROPHILS % (AUTO) 74 % (42-75); PLATELET COUNT 130 10^3/uL (130-400); RED CELL DISTRIBUTION WIDTH 15.1 % (10.0-14.5); WHITE BLOOD COUNT 7.5 10^3/uL (4.3-11.0)
[2020-01-05 07:05] LABS: INR 1.4 (0.8-1.4)
[2020-01-05 07:18] LABS: ALBUMIN 3.2 GM/DL (3.2-4.5); BILIRUBIN,TOTAL 0.5 MG/DL (0.1-1.0); CALCIUM 8.5 MG/DL (8.5-10.1); CREATININE SERUM 1.82 MG/DL (0.60-1.30); POTASSIUM 4.1 MMOL/L (3.6-5.0); TOTAL PROTEIN 6.3 GM/DL (6.4-8.2)
[2020-01-05] MEDS: RT-ALBUTEROL/IPRATROPIUM 3 ML (DUONEB) VIAL INH SCH ×3 (07:34→17:52)
[2020-01-05 08:00] VITALS: BP 109/58
[2020-01-05] MEDS: VITAMIN D3 25 MCG (1,000 UNITS) TABLET PO SCH ×3 (09:00→21:03)
[2020-01-05] MEDS: CEFDINIR 300 MG (OMNICEF) CAP PO SCH ×2 (09:04→21:00)
[2020-01-05] MEDS: MAGNESIUM OXIDE (MAG-OX)400 MG TAB PO SCH (09:04)
[2020-01-05] MEDS: FOLIC ACID 1 MG TAB PO SCH (09:04)
[2020-01-05] MEDS: VITAMIN E 180 MG (400 UNITS) CAP PO SCH (09:04)
[2020-01-05] MEDS: CARVEDILOL 12.5 MG (COREG) TABLET PO SCH ×2 (09:05→21:01)
[2020-01-05] MEDS: ASPIRIN E.C. 81 MG (ECOTRIN) TAB PO SCH (09:05)
[2020-01-05] MEDS: hydrALAZINE (APRESOLINE) 25 MG TAB PO SCH ×3 (09:05→21:00)
[2020-01-05] MEDS: OMEGA 3 (FISH OIL) 1000 MG CAP PO SCH ×2 (09:05→21:00)
[2020-01-05] MEDS: GEMFIBROZIL 600 MG (LOPID) TAB PO SCH (09:06)
[2020-01-05] MEDS: ASCORBIC ACID (VIT C) 500 MG TABLET PO SCH ×2 (09:06→17:27)
[2020-01-05] MEDS: ALLOPURINOL 100 MG (ZYLOPRIM) TAB PO SCH (09:06)
[2020-01-05] MEDS: amLODIPine 10 MG (NORVASC) TAB PO SCH (09:06)
[2020-01-05] MEDS: DOCUSATE SODIUM 100 MG (COLACE) CAP PO SCH ×2 (09:06→21:01)
[2020-01-05] MEDS: SENNA W/DOCUSATE (SENOKOT S) TABLET PO SCH ×2 (09:06→21:01)
--- NOTE | 2020-01-05 09:10 | Occupational Ther Daily Note ---
OT Current Status-Daily Note Subjective Pt alert, lying in bed. Pt agrees to therapy. Pt c/o dizziness throughout therapy, reported to nrsg. Mental Status/Objective Patient Orientation: Person, Place, Time, Situation Attachments: IV ADL-Treatment OT/PT co-treat ([id number]), skills of 2 clinicians required due to medical complexity, unsafe mobility and low activity tolerance. PT working in transf ers, mobility and L LE strengthening. OT working on functional transfers, ADLs, UE strengthening. Pt completed sit to stand with mod A x1 then was able to sit EOB (extended time) with SBA due to dizziness. Using FWW, pt able to complete SPT with PT assisting transfer and OT assisting with positioning equipment and B UE's. Transported pt to large shower room with rolling shower chair with cutout. Pt stated what homecare worker completes during shower and dressing, cleansing back, buttocks and markel area then completes all lower body dressing for pt. Pt stated that he would stand up with grabbar for worker to hike pants over hips. During shower, pt able to wash all areas except buttocks and around that area. Pt given long handle sponge to cleanse L LE. Pt placed L foot on ground and leaned toward R side to allow room for assistance to cleanse and dry. Pt urinated in shower without asking for urinal. Pt attempted to have BM, bucket placed under shower chair. Per clinical judgement, pt is dependent for toileting. Pt able to don/doff shirt by self after set up. Assist given to complete all lower body dressing, assist x2 to hike pants over hips, PT to stand and OT to hike pants. Transported pt into bathroom to complete oral care and grooming. Pt then transferred into bed by placing w/c perpendicular to bed, placing stump onto bed, grasping onto bed rails then pulling to modified stand and pivoting into bed, 2 person available for safety. Pt stated you all have your way of doing things and I have mine. Assist to position and lift L LE into bed, mod A. After session, pt lying in bed with call light/phone in reach. All needs met in room. Therapy Code Descriptions/Definitions Functional [place] Measure: 0=Not Assessed/NA 4=Minimal Assistance 1=Total Assistance 5=Supervision or Setup 2=Maximal Assistance 6=Modified [place] 3=Moderate Assistance 7=Complete IndependenceSCALE: Activities may be completed with or without assistive devices. 2-Chhetxsrkv-gmxygfg completes the activity by him/herself with no assistance from a helper. 5-Set-up or Clean-up Assistance-helper sets up or cleans up; patient completes activity. [place] assists only prior to or following the activity. 4-Supervision or Touching Assistance-helper provides verbal cues and/or touching/steadying and/or contact guard assistance as patient completes activity. Assistance may be provided throughout the activity or intermittently. 3-Partial/Moderate Assistance-helper does LESS THAN HALF the effort. [place] lifts, holds or supports trunk or limbs, but provides less than half the effort. 2-Substantial/Maximal Assistance-helper does MORE THAN HALF the effort. [place] lifts or holds trunk or limbs and provides more than half the effort. 0-Srvicrmek-vcdhwe does ALL the effort. Patient does none of the effort to complete the activity. Or, the assistance of 2 or more helpers is required for the patient to complete the activity. If activity was not attempted, code reason: 7-Patient Refused. 9-Not Applicable-not attempted and the patient did not perform the activity before the current illness, exacerbation or injury. 10-Not Attempted due to Environmental Limitations-(lack of equipment, weather restraints, etc.). 88-Not Attempted due to Medical Conditions or Safety Concerns. Oral Hygiene (QC): 6 Shower/Bathe Self (QC): 2 Upper Body Dressing (QC): 5 Lower Body Dressing (QC): 1 On/Off Footwear: 2 Toileting Hygiene (QC): 1 Toilet Transfer (QC): 1 OT Short Term Goals Short Term Goals Time Frame: Jan 17, 2020 Shower/bathe self: 2 OT Longterm Goals Longterm Goals Time Frame: Feb 01, 2020 Eating (QC): 6 Oral Hygiene (QC): 6 Toileting Hygiene (QC): 4 Shower/Bathe Self (QC): 3 Upper Body Dressing (QC): 5 Lower Body Dressing (QC): 3 On/Off Footwear (QC): 2 Additional Goals: 1-Demonstrate ADL Tasks, 2-Verbalize Understanding, 3- ImproveStrength/Farshad 1=Demonstrate adherence to instructed precautions during ADL tasks. 2=Patient will verbalize/demonstrate understanding of assistive devices/modifications for ADL. 3=Patient will improve strength/tolerance for activity to enable patient to perform ADL's. OT Education/Plan Problem List/Assessment Assessment: Decreased Activ Tolerance, Decreased Safety Aware, Decreased UE Strength, Impaired Bed Mobility, Impaired Coordination, Impaired Funct Balance, Impaired I ADL's, Impaired Self-Care Skills, Restricted Funct UE ROM, Visual- Perceptual Deficit Discharge Recommendations Plan/Recommendations: Continue POC Treatment Plan/Plan of Care Patient would benefit from OT for education, treatment and training to promote independence in ADL's, mobility, safety and/or upper extremity function for ADL's. Plan of Care: ADL Retraining, Functional Mobility, Group Exercise/Act as Ind, UE Funct Exercise/Act Treatment Duration: Feb 01, 2020 Frequency: At least 5 of 7 days/Wk (IRF) Estimated Hrs Per Day: 1.5 hours per day Agreement: Yes Rehab Potential: Guarded Time/GCodes Start Time: 09:00 Stop Time: 10:30 Total Time Billed (hr/min): 90 Billed Treatment Time 1 visit-ADL 6 (90 min) co-treat with PT [id number], individual [id number] MARIA A KEENE Jan 05, 2020 09:10
[2020-01-05] MEDS: polyethylene glycoL POWDER 17 GM (MIRALAX) PACK PO SCH ×2 (09:11→21:00)
--- NOTE | 2020-01-05 11:10 | Physical Therapy Daily Note ---
PT Daily Note-Current Subjective Patient in bed pre tx, agrees to PT, has no complaints of pain at rest. Will be co-treating with OT due to poor patient mobility, strength, endurance, balance, the need to coordinate UE and LE during activity, reduce the risk of falls. Appearance Patient in WC post tx with nurse call, phone, tray, all needs met, OT to continue working with patient. Mental Status Patient Orientation: Person, Place, Situation Transfers SCALE: Activities may be completed with or without assistive devices. 0-Akfnstdfxn-eeleooz completes the activity by him/herself with no assistance from a helper. 5-Set-up or Clean-up Assistance-helper sets up or cleans up; patient completes activity. [place] assists only prior to or following the activity. 4-Supervision or Touching Assistance-helper provides verbal cues and/or touching/steadying and/or contact guard assistance as patient completes activity. Assistance may be provided throughout the activity or intermittently. 3-Partial/Moderate Assistance-helper does LESS THAN HALF the effort. [place] lifts, holds or supports trunk or limbs, but provides less than half the effort. 2-Substantial/Maximal Assistance-helper does MORE THAN HALF the effort. [place] lifts or holds trunk or limbs and provides more than half the effort. 7-Cfhtqdisf-qekhzw does ALL the effort. Patient does none of the effort to complete the activity. Or, the assistance of 2 or more helpers is required for the patient to complete the activity. If activity was not attempted, code reason: 7-Patient Refused. 9-Not Applicable-not attempted and the patient did not perform the activity before the current illness, exacerbation or injury. 10-Not Attempted due to Environmental Limitations-(lack of equipment, weather restraints, etc.). 88-Not Attempted due to Medical Conditions or Safety Concerns. Roll Left & Right (QC): 6 Lying to Sitting/Side of Bed(Q: 3 Sit to Stand (QC): 2 Chair/Lkb-cc-Zhmmt Xfer(QC): 2 Patient supine to sit, transfer to shower chair, taken to shower room, showered, taken back to his room, standing to finish dressing and drying, then stand again and sit in WC. Patient needs a lot of assist with transfers and standing and cues for positioning and safety. Patient has poor endurance and needs frequent rest breaks. Weight Bearing right BKA Treatments bed mobility and transfers, shower, dressing. PT worked on bed mobility, transfers, standing, assist with shower and dressing, trunk balance and positioning and safety during shower, OT worked on shower and dressing and ass isted with transfers. Assessment Current Status: Poor Progress Patient has a lot of trouble standing, high fall risk PT Short Term Goals Short Term Goals Time Frame: Jan 11, 2020 Roll Left & Right: 6 Sit to lyin Lying to sitting on side of be: 4 Sit to stand: 3 Chair/ekx-ma-ksroy transfer: 3 PT Prison Goals Prison Goals PT Automotive Project Engineer Goals Time Frame: Jan 25, 2020 Roll Left & Right (QC): 6 Sit to Lying (QC): 6 Lying-Sitting on Side/Bed(QC): 6 Sit to Stand (QC): 5 Chair/Gti-qy-Pkzfq Xfer(QC): 5 Toilet Transfer (QC): 5 Car Transfer (QC): 5 Does the Patient Walk: No and Walking Goal NOT indicated Walk 10 feet (QC): 88 Walk 50ft with 2 Turns (QC): 88 Walk 150 ft (QC): 88 Walking 10ft on Uneven Surface: 88 1 Step (curb) (QC): 88 4 Steps (QC): 88 12 Steps (QC): 88 Picking up an Object (QC): 88 Wheel 50 feet with 2 turns (QC: 6 Wheel 150 feet: 6 PT Plan Problem List Problem List: Activity Tolerance, Functional Strength, Safety, Balance, Gait, Transfer, Bed Mobility, ROM Treatment/Plan Treatment Plan: Continue Plan of Care Treatment Plan: Bed Mobility, Education, Functional Activity Farshad, Functional Strength, Group Therapy, Safety, Therapeutic Exercise, Transfers Treatment Duration: Jan 25, 2020 Frequency: At least 5 of 7 days/Wk (IRF) Estimated Hrs Per Day: 1.5 hours per day Patient and/or Family Agrees t: Yes Safety Risks/Education Patient Education: Transfer Techniques, Correct Positioning, Safety Issues Teaching Recipient: Patient Teaching Methods: Demonstration, Discussion Response to Teaching: Reinforcement Needed Time/GCodes Time In: 0900 Time Out: 1000 Total Billed Treatment Time: 60 Total Billed Treatment 1 visit FA 60' BETTY STRONG PT Jan 05, 2020 11:10
[2020-01-05] MEDS: TRIAMCINOLONE 0.5% CR (KENALOG) 15 GM TUBE TOP SCH (12:07)
[2020-01-05] MEDS: MICONAZOLE 2% POWDER (DESENEX AF) 90 GM TOP SCH (12:07)
[2020-01-05] MEDS: ENOXAPARIN 300 MG/3 ML (LOVENOX) MULTI-DOSE VIAL SQ SCH ×2 (12:09→22:00)
[2020-01-05] MEDS: FERROUS SULF 325 MG (IRON) TAB PO SCH (12:57)
[2020-01-05] MEDS: ACETAMINOPHEN 325 MG TABLET PO PRN ×2 (13:38→17:37)
--- NOTE | 2020-01-05 14:00 | NUR ---
SLEEPS WITH CPAP ON WHENEVER NOT WORKING WITH THERAPY. HAS TO BE AWAKENED FOR MEDS, MEALS, ETC. HAS BEEN INCONTINENT OF URINE AND FEELS IS EMPTYING BLADDER.
--- NOTE | 2020-01-05 14:27 | NUR ---
CM/SS ADMISSION Patient admitted to ARU 01/04/20 from [facility] for debility. Other comorbidities, in part, are IDDM, right BKA, TREE, renal insufficiency, CAD, hypoxia, history of CABG, neuropathy. Patient resides in assisted living at [facility] in [place], independent residential count includes the [facility]. He reportedly has functioned higher/better regarding his self care and the facility supports. His sister/POA Zofai Pulido reported that he had multiple and frequent visitors since his admit there 03/2019. She indicates noting a decline in his overall outlook, mood, and activity level with winter and then Cov19 limitations/protocols re no visitors. The hope is that he will show improved desire with encouragement and be positively active for all the right reasons. 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 [place] RN oversight. Private pay bath aid 3x week. PCP: Dr. Kevin Pelletier DO [facility] PHARMACY: [facility] INSURED: Medicare, [employer] Supplement DME: Has power mobility scooter, lift chair, hospital bed. Will continue to explore with patient about his available DME as well as with therapy team regarding new needs. BARRIERS TO DISCHARGE: Patient has fluctuation in mood and motivation, health has continued to be compromised over the past several years. Patient will be held accountable to meet criteria at independent count includes the [facility] living at [place], or SNF may be required. He has family and friend support and supplemental care as noted above. Discharge options will depend on patient's desire, mood, motivation regarding return to established living arrangement or transfer into community longterm. CONTACTS: Zofia Pulido, Sister/POA [address] [place] [address] Rafita Newberry, Son/POA [address] [place] [id number] [phone] Patient and Zofia understand the purpose and process of the weekly patient care conference and that patient will first be reviewed Wednesday, January 10, 2020.
--- NOTE | 2020-01-05 14:45 | NUR ---
"RD ASSESSMENT PMHx: CHF; DM; COPD; IL; hypercholesterolemia; HTN; R BKA PT INTERACTION: Pt was awake and pleasant during nutrition follow-up. Pt states he has been eating okay since last assessment. Note avg PO intake 100% x2meal, per chart review. Pt states issues with nausea and constipation since last assessment. Note last BM was 6/3, and pt currently on bowel regimen of colace BID; senna BID; and miralax BID, per chart review. ABNORMAL NUTRITION-RELATED LAB VALUES LOW: Na 133; Pro 6.3 HIGH: BUN 30; cr 1.82; glu 189 Est. kcal needs: 3888-4319 kcal | 25-30 kcal/kg IBW, based on IBW of 78.1 kg (172#) Est. Pro needs: 62-78 g Pro | 0.8-1.0 g Pro/kg IBW, based on IBW of 78.1 kg (172#) PES STATEMENT: Given current PO intake, no nutrition diagnosis at this time (NO-1.1) INTERVENTION: Continue with current diet order of CHO 60g/m 3snack diet. Will continue to follow and reassess as pt needs, intake, and status change. MONITOR/EVALUATE: PO Intake; Plan of Care; Hydration Status; Weight Status; Lab Values Jose Robledo, MS, RD, LD"
--- NOTE | 2020-01-05 15:04 | Physical Therapy Progress Note ---
Therapy Progress Note Patient refused physical therapy this afternoon. He says he is having a little trouble breathing, has his Cpap on, nurse notified. Patient encouraged to perform just exercises in bed and he refuses. He says he could have done them yesterday but he cannot today. BETTY STRONG PT Jan 05, 2020 15:04
[2020-01-05 16:44] VITALS: BP 114/70
[2020-01-05] MEDS: warFARin 10 MG (COUMADIN) TAB PO SCH (17:27)
[2020-01-05] MEDS ORDERED: CATHETER FLUSH 10 ML SYR IV PRN (17:30)
[2020-01-05] MEDS ORDERED: warFARin 10 MG (COUMADIN) TAB PO SCH (18:00)
--- NOTE | 2020-01-05 18:00 | NUR ---
WAS INCONTINENT OF URINE THIS AM. VOIDED 350 CC IN URINAL THIS AFTERNOON. NEEDED URINAL HELD IN PLACE. BLADDER SCAN POST VOID SHOWED [address] ZEPEDA WAS NOTIFIED OF CONTINUED SUBTHERAPEUTIC INR THIS AM - COUMADIN DOSE INCREASED AND STARTED ON LOVENOX.
[2020-01-05 20:59] VITALS: BP 106/67
[2020-01-05] MEDS: FINASTERIDE (PROSCAR) 5 MG TAB PO SCH (21:01)
[2020-01-05] MEDS: AMITRIPTYLINE 25 MG (ELAVIL) TAB PO SCH (21:01)
[2020-01-05] MEDS: TAMSULOSIN 0.4 MG (FLOMAX) CAP PO SCH (21:03)
[2020-01-05] MEDS ORDERED: CATHETER FLUSH 10 ML SYR IV SCH (22:00)
[2020-01-06 05:03] VITALS: BP 119/76
[2020-01-06] MEDS: inSUlin ASPART (NovoLOG) 1 UNIT/0.01 ML (CHARGE PER UNIT) SC SCH ×4 (05:08→20:28)
[2020-01-06] MEDS: VENlafaxine XR 75 MG (EFFEXOR XR) CAP PO SCH (06:24)
[2020-01-06] MEDS: FUROSEMIDE 40 MG (LASIX) TAB PO SCH ×2 (06:24→17:27)
[2020-01-06] MEDS: DOXYCYCLINE 100 MG (VIBRAMYCIN) TABLET PO SCH ×2 (06:24→17:27)
[2020-01-06] MEDS: KCL 20 MEQ TAB (K-DUR) PO SCH (06:24)
[2020-01-06] MEDS: inSUlin ASPART (NovoLOG) 1 UNIT/0.01 ML (CHARGE PER UNIT) SQ SCH ×3 (06:25→17:27)
--- NOTE | 2020-01-06 07:56 | PM&R Progress Note ---
Subjective HPI/CC On Admission Date Seen by Provider: Jan 06, 2020 Time Seen by Provider: 13:00 Subjective/Events-last exam Patient doing well, sleeps most of the time Creatinine is 1.8 on labs yesterday but this is chronic and no oliguria noted INR 1.4 yesterday so increased Coumadin and started Lovenox 1mg/kg coverage until therapeutic and will check level tomorrow PCP placed him on Coumadin due to [place] stenosis 1 year ago Small BM willing to take laxatives until evacuated No pain reported Limited motivation CPAP every nap and at night Checked meds and labs Checked therapy notes Conferred with housing management officer of Systems General: Fatigue Neurological: Weakness Objective Exam Vital Signs Vital Signs Date Time Temp Pulse Resp B/P (MAP) Pulse Ox O2 Delivery O2 Flow Rate FiO2 01/06/20 07:07 4.00 01/06/20 05:03 37.0 68 16 119/76 (90) 92 NIV CPAP 01/04/20 18:48 36 Capillary Refill : Less Than 3 Seconds General Appearance: No Apparent Distress, WD/WN, Chronically ill, Obese HEENT: PERRL/EOMI, Normal ENT Inspection, Pharynx Normal Neck: Full Range of Motion, Normal Inspection, Non Tender, Supple, Carotid Bruit Respiratory: Chest Non Tender, Lungs Clear, Normal Breath Sounds, No Accessory Muscle Use, No Respiratory Distress Cardiovascular: Regular Rate, Rhythm, No Edema, No Gallop, No JVD, No Murmur, Normal Peripheral Pulses Gastrointestinal: Normal Bowel Sounds, No Organomegaly, No Pulsatile Mass, Non Tender, Soft Back: Normal Inspection, No CVA Tenderness, No Vertebral Tenderness Extremity: Normal Capillary Refill, Normal Inspection, Normal Range of Motion, Non Tender, No Calf Tenderness, No Pedal Edema, Other (right AKA) Neurologic/Psychiatric: Alert, Oriented x3, No Motor/Sensory Deficits, Normal Mood/Affect, fur repairer II-XII Norm as Tested, Motor Weakness (generalized weakness left leg) Skin: Normal Color, Warm/Dry Lymphatic: No Adenopathy Results/Procedures Lab Patient resulted labs reviewed. FIM Transfers Therapy Code Descriptions/Definitions Functional [place] Measure: 0=Not Assessed/NA 4=Minimal Assistance 1=Total Assistance 5=Supervision or Setup 2=Maximal Assistance 6=Modified [place] 3=Moderate Assistance 7=Complete IndependenceSCALE: Activities may be completed with or without assistive devices. 6-Bvehdzltqw-pfxuixa completes the activity by him/herself with no assistance from a helper. 5-Set-up or Clean-up Assistance-helper sets up or cleans up; patient completes activity. [place] assists only prior to or following the activity. 4-Supervision or Touching Assistance-helper provides verbal cues and/or touching/steadying and/or contact guard assistance as patient completes activity. Assistance may be provided throughout the activity or intermittently. 3-Partial/Moderate Assistance-helper does LESS THAN HALF the effort. [place] lifts, holds or supports trunk or limbs, but provides less than half the effort. 2-Substantial/Maximal Assistance-helper does MORE THAN HALF the effort. [place] lifts or holds trunk or limbs and provides more than half the effort. 0-Epluwjepl-yqylls does ALL the effort. Patient does none of the effort to complete the activity. Or, the assistance of 2 or more helpers is required for the patient to complete the activity. If activity was not attempted, code reason: 7-Patient Refused. 9-Not Applicable-not attempted and the patient did not perform the activity before the current illness, exacerbation or injury. 10-Not Attempted due to Environmental Limitations-(lack of equipment, weather restraints, etc.). 88-Not Attempted due to Medical Conditions or Safety Concerns. Roll Left to Right (QC): 6 Sit to Lying (QC): 4 Sit to Stand (QC): 2 Chair/Ggq-cd-Klbgi Xfer(QC): 2 Car Transfer (QC): 1 Gait Training Does the Patient Walk?: No and Walking Goal NOT indicated Walk 10 feet (QC): 88 Walk 50 ft with 2 Turns(QC): 88 Walk 150 ft (QC): 88 Walking 10ft/uneven surface-QC: 88 Wheelchair Training Does the Pt Use a Wheelchair?: Yes Wheel 50 ft with 2 turns (QC): 1 Wheel 150 ft (QC): 1 Type of Wheelchair: Manual Stair Training 1 Step (curb) (QC): 88 4 Steps (QC): 88 12 Steps (QC): 88 Balance Picking up an Object (QC): 88 ADL-Treatment Eating (QC): 5 (set up. OT opened sugar packet and poured into tea. Pt able to forklift picker bowl and bring food to his mouth.) Oral Hygiene (QC): 6 Shower/Bathe Self (QC): 2 Upper Body Dressing (QC): 5 Lower Body Dressing (QC): 1 On/Off Footwear (QC): 2 Toileting Hygiene (QC): 1 Toilet Transfer (QC): 1 Assessment/Plan Assessment and Plan Assess & Plan/Chief Complaint Assessment: Debility Falls DM OOC Left foot wound h/o right BKA CAD CABG hx PVD Coumadin treatment Peripheral neuropathy CKD CHF Poor motivation TREE [place] stenosis maintained on Coumadin Plan: IRF protocol Home meds Monitor INR Sugar management Lovenox bridge INR Wednesday (1) Debility (2) Diabetes mellitus, insulin dependent (IDDM), uncontrolled Status: Acute (3) TREE (obstructive sleep apnea) Status: Chronic (4) Renal insufficiency Status: Acute (5) CAD (coronary artery disease) Status: Chronic (6) Hypoxia Status: Acute GODFREY ZEPEDA DO Jan 06, 2020 07:56
[2020-01-06] MEDS: GEMFIBROZIL 600 MG (LOPID) TAB PO SCH (10:15)
[2020-01-06] MEDS: polyethylene glycoL POWDER 17 GM (MIRALAX) PACK PO SCH ×2 (10:15→21:40)
[2020-01-06] MEDS: hydrALAZINE (APRESOLINE) 25 MG TAB PO SCH ×3 (10:16→21:39)
[2020-01-06] MEDS: CARVEDILOL 12.5 MG (COREG) TABLET PO SCH ×2 (10:16→21:39)
[2020-01-06] MEDS: ASCORBIC ACID (VIT C) 500 MG TABLET PO SCH ×2 (10:16→17:27)
[2020-01-06] MEDS: FOLIC ACID 1 MG TAB PO SCH (10:17)
[2020-01-06] MEDS: MAGNESIUM OXIDE (MAG-OX)400 MG TAB PO SCH (10:17)
[2020-01-06] MEDS: DOCUSATE SODIUM 100 MG (COLACE) CAP PO SCH ×2 (10:17→21:40)
[2020-01-06] MEDS: OMEGA 3 (FISH OIL) 1000 MG CAP PO SCH ×2 (10:17→21:39)
[2020-01-06] MEDS: CEFDINIR 300 MG (OMNICEF) CAP PO SCH ×2 (10:17→21:39)
[2020-01-06] MEDS: VITAMIN E 180 MG (400 UNITS) CAP PO SCH (10:17)
[2020-01-06] MEDS: amLODIPine 10 MG (NORVASC) TAB PO SCH (10:17)
[2020-01-06] MEDS: SENNA W/DOCUSATE (SENOKOT S) TABLET PO SCH ×2 (10:17→21:40)
[2020-01-06] MEDS: ASPIRIN E.C. 81 MG (ECOTRIN) TAB PO SCH (10:17)
[2020-01-06] MEDS: ALLOPURINOL 100 MG (ZYLOPRIM) TAB PO SCH (10:17)
[2020-01-06] MEDS: ENOXAPARIN 300 MG/3 ML (LOVENOX) MULTI-DOSE VIAL SQ SCH ×2 (10:40→23:12)
--- NOTE | 2020-01-06 10:55 | Physical Therapy Daily Note ---
PT Daily Note-Current Subjective Pt in bed resting, upon arrival. Pt agrees to PT. Pain Numeric Pain Scale: 0-No Pain Location: No Pain Reported Mental Status Patient Orientation: Person, Place, Time, Situation Transfers SCALE: Activities may be completed with or without assistive devices. 0-Kwlzvlfnis-ksvtine completes the activity by him/herself with no assistance from a helper. 5-Set-up or Clean-up Assistance-helper sets up or cleans up; patient completes activity. [place] assists only prior to or following the activity. 4-Supervision or Touching Assistance-helper provides verbal cues and/or touching/steadying and/or contact guard assistance as patient completes activity. Assistance may be provided throughout the activity or intermittently. 3-Partial/Moderate Assistance-helper does LESS THAN HALF the effort. [place] lifts, holds or supports trunk or limbs, but provides less than half the effort. 2-Substantial/Maximal Assistance-helper does MORE THAN HALF the effort. [place] lifts or holds trunk or limbs and provides more than half the effort. 0-Omxtbdiso-rmowhw does ALL the effort. Patient does none of the effort to complete the activity. Or, the assistance of 2 or more helpers is required for the patient to complete the activity. If activity was not attempted, code reason: 7-Patient Refused. 9-Not Applicable-not attempted and the patient did not perform the activity before the current illness, exacerbation or injury. 10-Not Attempted due to Environmental Limitations-(lack of equipment, weather restraints, etc.). 88-Not Attempted due to Medical Conditions or Safety Concerns. Weight Bearing right BKA Exercises Supine Ex: Ankle pumps (LLE only), Quad Set, Heel Slides (L LE only ), Short Arc Quads (L LE only), Straight leg raise (PROM on L LE d/t inability to complete on own), Hip abd/add Supine Reps: 20 Treatments Supine ex completed. Pt requires PROM for SLR on L LE. Pt remains in bed w/ call light and bed side table w/in reach and all needs met at end of tx. Assessment Current Status: Fair Progress Pt c/o during ex of not "having the strength"; did not c/o pain though. Pt encouraged to do as much as possible. Nursing in during tx to give meds. PT Short Term Goals Short Term Goals Time Frame: Jan 11, 2020 Roll Left & Right: 6 Sit to lyin Lying to sitting on side of be: 4 Sit to stand: 3 Chair/ugq-gx-muupv transfer: 3 PT Usp Goals Usp Goals PT Usp Goals Time Frame: Jan 25, 2020 Roll Left & Right (QC): 6 Sit to Lying (QC): 6 Lying-Sitting on Side/Bed(QC): 6 Sit to Stand (QC): 5 Chair/Twj-fb-Rynqs Xfer(QC): 5 Toilet Transfer (QC): 5 Car Transfer (QC): 5 Does the Patient Walk: No and Walking Goal NOT indicated Walk 10 feet (QC): 88 Walk 50ft with 2 Turns (QC): 88 Walk 150 ft (QC): 88 Walking 10ft on Uneven Surface: 88 1 Step (curb) (QC): 88 4 Steps (QC): 88 12 Steps (QC): 88 Picking up an Object (QC): 88 Wheel 50 feet with 2 turns (QC: 6 Wheel 150 feet: 6 PT Plan Problem List Problem List: Activity Tolerance, Functional Strength, Safety, Bed Mobility, ROM Treatment/Plan Treatment Plan: Continue Plan of Care Treatment Plan: Bed Mobility, Education, Functional Activity [place], Functional Strength, Group Therapy, Safety, Therapeutic Exercise, Transfers Treatment Duration: Jan 25, 2020 Frequency: At least 5 of 7 days/Wk (IRF) Estimated Hrs Per Day: 1.5 hours per day Patient and/or Family Agrees t: Yes Safety Risks/Education Patient Education: Correct Positioning, Safety Issues Teaching Recipient: Patient Teaching Methods: Discussion Response to Teaching: Verbalize Understanding Time/GCodes Time In: 1034 Time Out: 1049 Total Billed Treatment Time: 15 Total Billed Treatment 1, EX (15m) PETEY WHITE CLINICAL APPEALS REVIEWER Jan 06, 2020 10:55
[2020-01-06] MEDS: VITAMIN D3 25 MCG (1,000 UNITS) TABLET PO SCH ×2 (13:24→21:40)
[2020-01-06] MEDS: RT-ALBUTEROL/IPRATROPIUM 3 ML (DUONEB) VIAL INH SCH ×3 (15:34→19:22)
[2020-01-06] MEDS: MICONAZOLE 2% POWDER (DESENEX AF) 90 GM TOP SCH (15:49)
[2020-01-06] MEDS: TRIAMCINOLONE 0.5% CR (KENALOG) 15 GM TUBE TOP SCH (15:49)
[2020-01-06 16:30] VITALS: BP 115/70
[2020-01-06] MEDS: warFARin 10 MG (COUMADIN) TAB PO SCH (17:27)
[2020-01-06 21:37] VITALS: BP 118/73
[2020-01-06] MEDS: AMITRIPTYLINE 25 MG (ELAVIL) TAB PO SCH (21:39)
[2020-01-06] MEDS: TAMSULOSIN 0.4 MG (FLOMAX) CAP PO SCH (21:39)
[2020-01-06] MEDS: FINASTERIDE (PROSCAR) 5 MG TAB PO SCH (21:39)
[2020-01-07 05:07] LABS: INR 1.8 (0.8-1.4); PROTHROMBIN TIME PATIENT 21.4 SEC (12.2-14.7)
[2020-01-07] MEDS: inSUlin ASPART (NovoLOG) 1 UNIT/0.01 ML (CHARGE PER UNIT) SC SCH ×4 (06:19→19:32)
[2020-01-07] MEDS: VENlafaxine XR 75 MG (EFFEXOR XR) CAP PO SCH (06:24)
[2020-01-07] MEDS: inSUlin ASPART (NovoLOG) 1 UNIT/0.01 ML (CHARGE PER UNIT) SQ SCH ×3 (06:24→17:10)
[2020-01-07] MEDS: DOXYCYCLINE 100 MG (VIBRAMYCIN) TABLET PO SCH ×2 (06:24→17:07)
[2020-01-07] MEDS: KCL 20 MEQ TAB (K-DUR) PO SCH (06:24)
[2020-01-07] MEDS: FUROSEMIDE 40 MG (LASIX) TAB PO SCH ×2 (06:24→17:07)
[2020-01-07 06:30] VITALS: BP 137/73
[2020-01-07 08:00] VITALS: BP 129/63
[2020-01-07] MEDS: polyethylene glycoL POWDER 17 GM (MIRALAX) PACK PO SCH ×2 (09:00→20:58)
[2020-01-07] MEDS: SENNA W/DOCUSATE (SENOKOT S) TABLET PO SCH ×2 (09:00→20:58)
[2020-01-07] MEDS: DOCUSATE SODIUM 100 MG (COLACE) CAP PO SCH ×2 (09:00→20:59)
--- NOTE | 2020-01-07 09:00 | NUR ---
STATES SINCE NO THERAPY TODAY, "I'M GOING TO SLEEP ALL DAY". STATES ONE CAROTID ARTERY IS 100% OCCLUDED AND THE OTHER ONE IS 80%. THIS IS CAUSING HIM DIZZINESS AND SURGERY IS NOT POSSIBLE.
[2020-01-07] MEDS: RT-ALBUTEROL/IPRATROPIUM 3 ML (DUONEB) VIAL INH SCH ×3 (09:16→18:48)
[2020-01-07] MEDS: amLODIPine 10 MG (NORVASC) TAB PO SCH (10:03)
[2020-01-07] MEDS: VITAMIN D3 25 MCG (1,000 UNITS) TABLET PO SCH ×2 (10:03→20:58)
[2020-01-07] MEDS: hydrALAZINE (APRESOLINE) 25 MG TAB PO SCH ×3 (10:03→20:58)
[2020-01-07] MEDS: ASPIRIN E.C. 81 MG (ECOTRIN) TAB PO SCH (10:03)
[2020-01-07] MEDS: VITAMIN E 180 MG (400 UNITS) CAP PO SCH (10:03)
[2020-01-07] MEDS: CEFDINIR 300 MG (OMNICEF) CAP PO SCH ×2 (10:04→20:57)
[2020-01-07] MEDS: FOLIC ACID 1 MG TAB PO SCH (10:04)
[2020-01-07] MEDS: MAGNESIUM OXIDE (MAG-OX)400 MG TAB PO SCH (10:04)
[2020-01-07] MEDS: OMEGA 3 (FISH OIL) 1000 MG CAP PO SCH ×2 (10:04→20:58)
[2020-01-07] MEDS: ALLOPURINOL 100 MG (ZYLOPRIM) TAB PO SCH (10:04)
[2020-01-07] MEDS: ASCORBIC ACID (VIT C) 500 MG TABLET PO SCH ×2 (10:04→17:07)
[2020-01-07] MEDS: GEMFIBROZIL 600 MG (LOPID) TAB PO SCH (10:04)
[2020-01-07] MEDS: CARVEDILOL 12.5 MG (COREG) TABLET PO SCH ×2 (10:08→20:59)
[2020-01-07] MEDS: MICONAZOLE 2% POWDER (DESENEX AF) 90 GM TOP SCH (10:12)
[2020-01-07] MEDS: TRIAMCINOLONE 0.5% CR (KENALOG) 15 GM TUBE TOP SCH (10:13)
--- NOTE | 2020-01-07 11:49 | PM&R Progress Note ---
Subjective HPI/CC On Admission Date Seen by Provider: Jan 07, 2020 Time Seen by Provider: 11:45 Subjective/Events-last exam Patient doing well, sleeps most of the time and told nurse he will sleep all day today since no therapy INR 1.8 today so maintained on increased Coumadin dose and maintained on Lovenox 1mg/kg coverage until therapeutic and will check level Wednesday PCP placed him on Coumadin due to [place] stenosis 1 year ago Large BM today finally No pain reported Limited motivation CPAP every nap and at night Checked meds and labs Checked therapy notes Conferred with hotel sales manager of Systems General: Fatigue Neurological: Weakness, Incoordination Objective Exam Vital Signs Vital Signs Date Time Temp Pulse Resp B/P (MAP) Pulse Ox O2 Delivery O2 Flow Rate FiO2 01/07/20 09:17 NIV CPAP 01/07/20 06:30 37.2 72 20 137/73 (94) 92 01/06/20 21:00 4.00 01/06/20 19:22 36 Capillary Refill : Less Than 3 Seconds General Appearance: No Apparent Distress, WD/WN, Chronically ill, Obese HEENT: PERRL/EOMI, Normal ENT Inspection, Pharynx Normal Neck: Full Range of Motion, Normal Inspection, Non Tender, Supple, Carotid Bruit Respiratory: Chest Non Tender, Lungs Clear, Normal Breath Sounds, No Accessory Muscle Use, No Respiratory Distress Cardiovascular: Regular Rate, Rhythm, No Edema, No Gallop, No JVD, No Murmur, Normal Peripheral Pulses Gastrointestinal: Normal Bowel Sounds, No Organomegaly, No Pulsatile Mass, Non Tender, Soft Back: Normal Inspection, No CVA Tenderness, No Vertebral Tenderness Extremity: Normal Capillary Refill, Normal Inspection, Normal Range of Motion, Non Tender, No Calf Tenderness, No Pedal Edema, Other (right AKA) Neurologic/Psychiatric: Alert, Oriented x3, No Motor/Sensory Deficits, Normal Mood/Affect, potato chip maker II-XII Norm as Tested, Motor Weakness (generalized weakness left leg) Skin: Normal Color, Warm/Dry Lymphatic: No Adenopathy Results/Procedures Lab Patient resulted labs reviewed. FIM Transfers Therapy Code Descriptions/Definitions Functional [place] Measure: 0=Not Assessed/NA 4=Minimal Assistance 1=Total Assistance 5=Supervision or Setup 2=Maximal Assistance 6=Modified [place] 3=Moderate Assistance 7=Complete IndependenceSCALE: Activities may be completed with or without assistive devices. 2-Pnthdvgmqa-brwvqqw completes the activity by him/herself with no assistance from a helper. 5-Set-up or Clean-up Assistance-helper sets up or cleans up; patient completes activity. [place] assists only prior to or following the activity. 4-Supervision or Touching Assistance-helper provides verbal cues and/or touching/steadying and/or contact guard assistance as patient completes activity. Assistance may be provided throughout the activity or intermittently. 3-Partial/Moderate Assistance-helper does LESS THAN HALF the effort. [place] lifts, holds or supports trunk or limbs, but provides less than half the effort. 2-Substantial/Maximal Assistance-helper does MORE THAN HALF the effort. [place] lifts or holds trunk or limbs and provides more than half the effort. 4-Sfdmnrzqf-grucuu does ALL the effort. Patient does none of the effort to complete the activity. Or, the assistance of 2 or more helpers is required for the patient to complete the activity. If activity was not attempted, code reason: 7-Patient Refused. 9-Not Applicable-not attempted and the patient did not perform the activity before the current illness, exacerbation or injury. 10-Not Attempted due to Environmental Limitations-(lack of equipment, weather restraints, etc.). 88-Not Attempted due to Medical Conditions or Safety Concerns. Roll Left to Right (QC): 6 Sit to Lying (QC): 4 Sit to Stand (QC): 2 Chair/Yyp-cw-[place] Xfer(QC): 2 Car Transfer (QC): 1 Gait Training Does the Patient Walk?: No and Walking Goal NOT indicated Walk 10 feet (QC): 88 Walk 50 ft with 2 Turns(QC): 88 Walk 150 ft (QC): 88 Walking 10ft/uneven surface-QC: 88 Wheelchair Training Does the Pt Use a Wheelchair?: Yes Wheel 50 ft with 2 turns (QC): 1 Wheel 150 ft (QC): 1 Type of Wheelchair: Manual Stair Training 1 Step (curb) (QC): 88 4 Steps (QC): 88 12 Steps (QC): 88 Balance Picking up an Object (QC): 88 ADL-Treatment Eating (QC): 5 (set up. OT opened sugar packet and poured into tea. Pt able to pickler helper bowl and bring food to his mouth.) Oral Hygiene (QC): 6 Shower/Bathe Self (QC): 2 Upper Body Dressing (QC): 5 Lower Body Dressing (QC): 1 On/Off Footwear (QC): 2 Toileting Hygiene (QC): 1 Toilet Transfer (QC): 1 Assessment/Plan Assessment and Plan Assess & Plan/Chief Complaint Assessment: Debility Falls DM OOC Left foot wound h/o right BKA CAD CABG hx PVD Coumadin treatment Peripheral neuropathy CKD CHF Poor motivation TREE [place] stenosis maintained on Coumadin Plan: IRF protocol Home meds Monitor INR Sugar management Lovenox bridge INR Wednesday (1) Debility (2) Diabetes mellitus, insulin dependent (IDDM), uncontrolled Status: Acute (3) TREE (obstructive sleep apnea) Status: Chronic (4) Renal insufficiency Status: Acute (5) CAD (coronary artery disease) Status: Chronic (6) Hypoxia Status: Acute GODFREY ZEPEDA DO Jan 07, 2020 11:48
[2020-01-07] MEDS: FERROUS SULF 325 MG (IRON) TAB PO SCH (12:48)
[2020-01-07] MEDS: ENOXAPARIN 300 MG/3 ML (LOVENOX) MULTI-DOSE VIAL SQ SCH ×2 (12:52→22:31)
--- NOTE | 2020-01-07 17:00 | NUR ---
SAT UP IN WHEELCHAIR FOR 1.5 HOURS THIS AFTERNOON. A FAIRLY GOOD DAY.
[2020-01-07] MEDS: warFARin 10 MG (COUMADIN) TAB PO SCH (17:07)
[2020-01-07 17:11] VITALS: BP 103/67
[2020-01-07 20:56] VITALS: BP 125/80
[2020-01-07] MEDS: TAMSULOSIN 0.4 MG (FLOMAX) CAP PO SCH (20:57)
[2020-01-07] MEDS: FINASTERIDE (PROSCAR) 5 MG TAB PO SCH (20:58)
[2020-01-07] MEDS: AMITRIPTYLINE 25 MG (ELAVIL) TAB PO SCH (20:58)
[2020-01-08] MEDS: inSUlin ASPART (NovoLOG) 1 UNIT/0.01 ML (CHARGE PER UNIT) SC SCH ×4 (05:31→21:34)
[2020-01-08 05:58] LABS: BASOPHILS % (AUTO) 0 % (0-10); EOSINOPHILS # (AUTO) 0.2 10^3/uL (0.0-0.3); EOSINOPHILS % (AUTO) 2 % (0-10); HEMATOCRIT 30 % (40-54); HEMOGLOBIN 9.9 G/DL (13.3-17.7); LYMPHOCYTES % (AUTO) 15 % (12-44); MEAN CORPUSCULAR HEMOGLOBIN 28 PG (25-34); MEAN CORPUSCULAR HGB CONC 33 G/DL (32-36); MEAN CORPUSCULAR VOLUME 86 FL (80-99); MEAN PLATELET VOLUME 11.1 FL (7.4-10.4); MONOCYTES # (AUTO) 0.9 X 10^3 (0.0-1.0); MONOCYTES % (AUTO) 13 % (0-12); NEUTROPHILS # (AUTO) 4.7 X 10^3 (1.8-7.8); NEUTROPHILS % (AUTO) 70 % (42-75); PLATELET COUNT 149 10^3/uL (130-400); RED CELL DISTRIBUTION WIDTH 15.1 % (10.0-14.5); WHITE BLOOD COUNT 6.8 10^3/uL (4.3-11.0)
[2020-01-08 06:00] VITALS: BP 133/76
[2020-01-08] MEDS: DOXYCYCLINE 100 MG (VIBRAMYCIN) TABLET PO SCH ×2 (06:00→16:58)
[2020-01-08] MEDS: KCL 20 MEQ TAB (K-DUR) PO SCH (06:00)
[2020-01-08] MEDS: VENlafaxine XR 75 MG (EFFEXOR XR) CAP PO SCH (06:00)
[2020-01-08] MEDS: inSUlin ASPART (NovoLOG) 1 UNIT/0.01 ML (CHARGE PER UNIT) SQ SCH ×3 (06:00→16:58)
[2020-01-08] MEDS: FUROSEMIDE 40 MG (LASIX) TAB PO SCH ×2 (06:00→16:58)
[2020-01-08 06:11] LABS: ALBUMIN 3.2 GM/DL (3.2-4.5)
[2020-01-08 06:13] LABS: CALCIUM 8.6 MG/DL (8.5-10.1)
[2020-01-08 06:14] LABS: TOTAL PROTEIN 6.3 GM/DL (6.4-8.2)
[2020-01-08 06:16] LABS: BILIRUBIN,TOTAL 0.4 MG/DL (0.1-1.0)
[2020-01-08 06:18] LABS: CREATININE SERUM 1.84 MG/DL (0.60-1.30)
[2020-01-08] MEDS: polyethylene glycoL POWDER 17 GM (MIRALAX) PACK PO SCH ×2 (09:00→21:33)
[2020-01-08] MEDS: MICONAZOLE 2% POWDER (DESENEX AF) 90 GM TOP SCH (09:00)
[2020-01-08] MEDS: DOCUSATE SODIUM 100 MG (COLACE) CAP PO SCH ×2 (09:00→21:34)
[2020-01-08] MEDS: TRIAMCINOLONE 0.5% CR (KENALOG) 15 GM TUBE TOP SCH (09:00)
--- NOTE | 2020-01-08 09:38 | PM&R Progress Note ---
Subjective HPI/CC On Admission Date Seen by Provider: Jan 08, 2020 Time Seen by Provider: 09:30 Subjective/Events-last exam Poor motivation continues CPAP during naps and at bedtime Dressing changes of his toes seems to be going pretty well Hgb 9.9, Creatinine 1.84, INR 2.0, so will discontinue the Lovenox bridge and change the Coumadin to 8.0 Mg daily Checked meds and labs Checked therapy notes Conferred with pass worker of Systems Neurological: Weakness, Numbness, Incoordination Objective Exam Vital Signs Vital Signs Date Time Temp Pulse Resp B/P (MAP) Pulse Ox O2 Delivery O2 Flow Rate FiO2 01/08/20 18:36 91 NIV CPAP 4.00 01/08/20 18:06 36.8 75 18 127/77 (94) 01/07/20 18:48 36 Capillary Refill : Less Than 3 Seconds General Appearance: No Apparent Distress, WD/WN, Chronically ill, Obese HEENT: PERRL/EOMI, Normal ENT Inspection, Pharynx Normal Neck: Full Range of Motion, Normal Inspection, Non Tender, Supple, Carotid B ruit Respiratory: Chest Non Tender, Lungs Clear, Normal Breath Sounds, No Accessory Muscle Use, No Respiratory Distress Cardiovascular: Regular Rate, Rhythm, No Edema, No Gallop, No JVD, No Murmur, Normal Peripheral Pulses Gastrointestinal: Normal Bowel Sounds, No Organomegaly, No Pulsatile Mass, Non Tender, Soft Back: Normal Inspection, No CVA Tenderness, No Vertebral Tenderness Extremity: Normal Capillary Refill, Normal Inspection, Normal Range of Motion, Non Tender, No Calf Tenderness, No Pedal Edema, Other (right AKA) Neurologic/Psychiatric: Alert, Oriented x3, No Motor/Sensory Deficits, Normal Mood/Affect, envelope machine adjuster II-XII Norm as Tested, Motor Weakness (generalized weakness left leg) Skin: Normal Color, Warm/Dry Lymphatic: No Adenopathy Results/Procedures Lab Laboratory Tests 01/08/20 05:23 Patient resulted labs reviewed. FIM Transfers Therapy Code Descriptions/Definitions Functional [place] Measure: 0=Not Assessed/NA 4=Minimal Assistance 1=Total Assistance 5=Supervision or Setup 2=Maximal Assistance 6=Modified [place] 3=Moderate Assistance 7=Complete IndependenceSCALE: Activities may be completed with or without assistive devices. 9-Spuaubcwcx-adpttmh completes the activity by him/herself with no assistance from a helper. 5-Set-up or Clean-up Assistance-helper sets up or cleans up; patient completes activity. [place] assists only prior to or following the activity. 4-Supervision or Touching Assistance-helper provides verbal cues and/or touching/steadying and/or contact guard assistance as patient completes activity. Assistance may be provided throughout the activity or intermittently. 3-Partial/Moderate Assistance-helper does LESS THAN HALF the effort. [place] lifts, holds or supports trunk or limbs, but provides less than half the effort. 2-Substantial/Maximal Assistance-helper does MORE THAN HALF the effort. [place] lifts or holds trunk or limbs and provides more than half the effort. 6-Hbmratppi-umnrzl does ALL the effort. Patient does none of the effort to complete the activity. Or, the assistance of 2 or more helpers is required for the patient to complete the activity. If activity was not attempted, code reason: 7-Patient Refused. 9-Not Applicable-not attempted and the patient did not perform the activity before the current illness, exacerbation or injury. 10-Not Attempted due to Environmental Limitations-(lack of equipment, weather restraints, etc.). 88-Not Attempted due to Medical Conditions or Safety Concerns. Roll Left to Right (QC): 6 Sit to Lying (QC): 4 Sit to Stand (QC): 2 Chair/Oyc-yg-Lgwpf Xfer(QC): 2 Car Transfer (QC): 1 Gait Training Does the Patient Walk?: No and Walking Goal NOT indicated Walk 10 feet (QC): 88 Walk 50 ft with 2 Turns(QC): 88 Walk 150 ft (QC): 88 Walking 10ft/uneven surface-QC: 88 Wheelchair Training Does the Pt Use a Wheelchair?: Yes Wheel 50 ft with 2 turns (QC): 1 Wheel 150 ft (QC): 1 Type of Wheelchair: Manual Stair Training 1 Step (curb) (QC): 88 4 Steps (QC): 88 12 Steps (QC): 88 Balance Picking up an Object (QC): 88 ADL-Treatment Eating (QC): 5 (set up. OT opened sugar packet and poured into tea. Pt able to nut picker bowl and bring food to his mouth.) Oral Hygiene (QC): 6 Shower/Bathe Self (QC): 2 Upper Body Dressing (QC): 5 Lower Body Dressing (QC): 1 On/Off Footwear (QC): 2 Toileting Hygiene (QC): 1 Toilet Transfer (QC): 1 Assessment/Plan Assessment and Plan Assess & Plan/Chief Complaint Assessment: Debility Falls DM OOC Left foot wound h/o right BKA CAD CABG hx PVD Coumadin treatment Peripheral neuropathy CKD CHF Poor motivation TREE [place] stenosis maintained on Coumadin Plan: IRF protocol Home meds Monitor INR Sugar management Lovenox bridge INR prn (1) Debility (2) Diabetes mellitus, insulin dependent (IDDM), uncontrolled Status: Acute (3) TREE (obstructive sleep apnea) Status: Chronic (4) Renal insufficiency Status: Acute (5) CAD (coronary artery disease) Status: Chronic (6) Hypoxia Status: Acute GODFREY ZEPEDA DO Jan 08, 2020 09:38
[2020-01-08] MEDS: RT-ALBUTEROL/IPRATROPIUM 3 ML (DUONEB) VIAL INH SCH ×3 (09:49→18:36)
--- NOTE | 2020-01-08 09:53 | Occupational Ther Daily Note ---
OT Current Status-Daily Note Subjective Pt alert, lying in bed. Pt agrees to therapy. No c/o pain only dizziness. Pt sat still to allow dizziness to dissipate. Mental Status/Objective Patient Orientation: Person, Place, Time, Situation ADL-Treatment See PT notes for pt's mobility progress. Assist x2 to don pants, assist to thread over feet then assist x1 to stand while assist x1 to hike over hips. Pt propelled w/c to bathroom to complete oral care and grooming, mod I. Therapy Code Descriptions/Definitions Functional [place] Measure: 0=Not Assessed/NA 4=Minimal Assistance 1=Total Assistance 5=Supervision or Setup 2=Maximal Assistance 6=Modified [place] 3=Moderate Assistance 7=Complete IndependenceSCALE: Activities may be completed with or without assistive devices. 1-Dqqrjislih-ezhbuya completes the activity by him/herself with no assistance from a helper. 5-Set-up or Clean-up Assistance-helper sets up or cleans up; patient completes a ctivity. [place] assists only prior to or following the activity. 4-Supervision or Touching Assistance-helper provides verbal cues and/or touching/steadying and/or contact guard assistance as patient completes activity. Assistance may be provided throughout the activity or intermittently. 3-Partial/Moderate Assistance-helper does LESS THAN HALF the effort. Levels lifts, holds or supports trunk or limbs, but provides less than half the effort. 2-Substantial/Maximal Assistance-helper does MORE THAN HALF the effort. Levels lifts or holds trunk or limbs and provides more than half the effort. 0-Vgfyqagqp-ghhuab does ALL the effort. Patient does none of the effort to complete the activity. Or, the assistance of 2 or more helpers is required for the patient to complete the activity. If activity was not attempted, code reason: 7-Patient Refused. 9-Not Applicable-not attempted and the patient did not perform the activity before the current illness, exacerbation or injury. 10-Not Attempted due to Environmental Limitations-(lack of equipment, weather restraints, etc.). 88-Not Attempted due to Medical Conditions or Safety Concerns. Oral Hygiene (QC): 6 Lower Body Dressing (QC): 1 Other Treatment OT/PT co-treat ([id number]), skills of 2 clinicians required due to medical complexity, unsafe mobility and low activity tolerance. PT working in transfers, mobility and L LE strengthening. OT working on functional transfers, ADLs, UE strengthening. Pt propelled w/c slowly with multiple recovery breaks from room to therapy gym. Pt working on standing at parallel bars, assist to stabilize self during sit to stand phase then pt stood for ~3 min each time. Pt propelled self back to room. Using a forward facing to bed, pt pulled to stand with bed rails, placed stump onto bed then SPT to sit down on bed. After therapy pt lying in bed with call light/phone in reach. All needs met in room. OT Short Term Goals Short Term Goals Time Frame: Jan 17, 2020 Shower/bathe self: 2 OT Multicultural Internship Goals Multicultural Internship Goals Time Frame: Feb 01, 2020 Eating (QC): 6 Oral Hygiene (QC): 6 Toileting Hygiene (QC): 4 Shower/Bathe Self (QC): 3 Upper Body Dressing (QC): 5 Lower Body Dressing (QC): 3 On/Off Footwear (QC): 2 Additional Goals: 1-Demonstrate ADL Tasks, 2-Verbalize Understanding, 3- ImproveStrength/Farshad 1=Demonstrate adherence to instructed precautions during ADL tasks. 2=Patient will verbalize/demonstrate understanding of assistive debora alexei/modifications for ADL. 3=Patient will improve strength/tolerance for activity to enable patient to perform ADL's. OT Education/Plan Problem List/Assessment Assessment: Decreased Activ Tolerance, Decreased UE Strength, Impaired Coordination, Impaired Funct Balance, Impaired Self-Care Skills, Restricted Funct UE ROM Discharge Recommendations Plan/Recommendations: Continue POC Treatment Plan/Plan of Care Patient would benefit from OT for education, treatment and training to promote independence in ADL's, mobility, safety and/or upper extremity function for ADL's. Plan of Care: ADL Retraining, Functional Mobility, Group Exercise/Act as Ind, UE Funct Exercise/Act Treatment Duration: Feb 01, 2020 Frequency: At least 5 of 7 days/Wk (IRF) Estimated Hrs Per Day: 1.5 hours per day Agreement: Yes Rehab Potential: Guarded Time/GCodes Start Time: 09:00 Stop Time: 10:00 Total Time Billed (hr/min): 60 Billed Treatment Time 1 visit-ADL 1 (15 min) FA 3 (45 min) co-treat with PT [id number] MARIA A KEENE Jan 08, 2020 09:53
[2020-01-08] MEDS: ASCORBIC ACID (VIT C) 500 MG TABLET PO SCH ×2 (10:15→17:19)
[2020-01-08] MEDS: amLODIPine 10 MG (NORVASC) TAB PO SCH (10:15)
[2020-01-08] MEDS: ASPIRIN E.C. 81 MG (ECOTRIN) TAB PO SCH (10:15)
[2020-01-08] MEDS: FOLIC ACID 1 MG TAB PO SCH (10:15)
[2020-01-08] MEDS: hydrALAZINE (APRESOLINE) 25 MG TAB PO SCH ×3 (10:15→21:31)
[2020-01-08] MEDS: GEMFIBROZIL 600 MG (LOPID) TAB PO SCH (10:16)
[2020-01-08] MEDS: CEFDINIR 300 MG (OMNICEF) CAP PO SCH ×2 (10:16→21:33)
[2020-01-08] MEDS: CARVEDILOL 12.5 MG (COREG) TABLET PO SCH ×2 (10:16→21:32)
[2020-01-08] MEDS: VITAMIN E 180 MG (400 UNITS) CAP PO SCH (10:16)
[2020-01-08] MEDS: VITAMIN D3 25 MCG (1,000 UNITS) TABLET PO SCH ×2 (10:16→21:32)
[2020-01-08] MEDS: OMEGA 3 (FISH OIL) 1000 MG CAP PO SCH ×2 (10:16→21:31)
[2020-01-08] MEDS: MAGNESIUM OXIDE (MAG-OX)400 MG TAB PO SCH (10:16)
[2020-01-08] MEDS: ALLOPURINOL 100 MG (ZYLOPRIM) TAB PO SCH (10:17)
[2020-01-08] MEDS: SENNA W/DOCUSATE (SENOKOT S) TABLET PO SCH ×2 (10:21→21:31)
--- NOTE | 2020-01-08 11:01 | Physical Therapy Daily Note ---
PT Daily Note-Current Subjective Patient in bed pre tx, agrees to PT, has no complaints of pain, will be co- treating with OT due to poor patient mobility, strength, endurance, balance, knee buckling, the need to coordinate UE and LE during activity, decrease risk of falling. Appearance Patient BTB post tx with nurse call, phone, tray, all needs met. CPAP on. Mental Status Patient Orientation: Normal For Age Transfers SCALE: Activities may be completed with or without assistive devices. 3-Zxifchdizy-uwsaspt completes the activity by him/herself with no assistance from a helper. 5-Set-up or Clean-up Assistance-helper sets up or cleans up; patient completes activity. [place] assists only prior to or following the activity. 4-Supervision or Touching Assistance-helper provides verbal cues and/or touching/steadying and/or contact guard assistance as patient completes activity. Assistance may be provided throughout the activity or intermittently. 3-Partial/Moderate Assistance-helper does LESS THAN HALF the effort. [place] lifts, holds or supports trunk or limbs, but provides less than half the effort. 2-Substantial/Maximal Assistance-helper does MORE THAN HALF the effort. [place] lifts or holds trunk or limbs and provides more than half the effort. 3-Hlunnnmos-msglkn does ALL the effort. Patient does none of the effort to complete the activity. Or, the assistance of 2 or more helpers is required for the patient to complete the activity. If activity was not attempted, code reason: 7-Patient Refused. 9-Not Applicable-not attempted and the patient did not perform the activity before the current illness, exacerbation or injury. 10-Not Attempted due to Environmental Limitations-(lack of equipment, weather restraints, etc.). 88-Not Attempted due to Medical Conditions or Safety Concerns. Roll Left & Right (QC): 6 Sit to Lying (QC): 3 Lying to Sitting/Side of Bed(Q: 3 Sit to Stand (QC): 2 Chair/Gma-hw-Sdlsy Xfer(QC): 2 Transfer supine to sit, stand 2 times to get shorts on, transfer to WC, propel to therapy gym, standing in parallel bars x4 for as long as he can (approx 30 sec each time, has some knee buckling), propel back to room, stand pivot to bed and then lay down. Patient needs extra time for all activities due to lethargy and fatigue. Weight Bearing right BKA Wheelchair Training Type of Wheelchair: Manual 120'x2 SBA Treatments bed mobility and transfers, WC mobility, PT performed bed mobility and transfers, standing and standing during dressing, WC mobility, OT performed dressing, grooming, UE positioning and safety, assist with transfers. Assessment Current Status: Poor Progress Getting a sore on his right residual limb. PT Short Term Goals Short Term Goals Time Frame: Jan 11, 2020 Roll Left & Right: 6 Sit to lyin Lying to sitting on side of be: 4 Sit to stand: 3 Chair/glu-oi-ixrfs transfer: 3 PT Nursing Home Goals Tobacco Curer Goals PT Tobacco Curer Goals Time Frame: Jan 25, 2020 Roll Left & Right (QC): 6 Sit to Lying (QC): 6 Lying-Sitting on Side/Bed(QC): 6 Sit to Stand (QC): 5 Chair/Dvs-yp-Exgaf Xfer(QC): 5 Toilet Transfer (QC): 5 Car Transfer (QC): 5 Does the Patient Walk: No and Walking Goal NOT indicated Walk 10 feet (QC): 88 Walk 50ft with 2 Turns (QC): 88 Walk 150 ft (QC): 88 Walking 10ft on Uneven Surface: 88 1 Step (curb) (QC): 88 4 Steps (QC): 88 12 Steps (QC): 88 Picking up an Object (QC): 88 Wheel 50 feet with 2 turns (QC: 6 Wheel 150 feet: 6 PT Plan Problem List Problem List: Activity Tolerance, Functional Strength, Safety, Balance, Gait, Transfer, Bed Mobility, ROM Treatment/Plan Treatment Plan: Continue Plan of Care Treatment Plan: Bed Mobility, Education, Functional Activity Farshad, Functional Strength, Group Therapy, Safety, Therapeutic Exercise, Transfers Treatment Duration: Jan 25, 2020 Frequency: At least 5 of 7 days/Wk (IRF) Estimated Hrs Per Day: 1.5 hours per day Patient and/or Family Agrees t: Yes Safety Risks/Education Patient Education: Transfer Techniques, Correct Positioning, W/C Management, Safety Issues Teaching Recipient: Patient Teaching Methods: Demonstration, Discussion Response to Teaching: Reinforcement Needed Time/GCodes Time In: 0900 Time Out: 1000 Total Billed Treatment Time: 60 Total Billed Treatment 1 visit FA 60' BETTY STRONG PT Jan 08, 2020 11:01
[2020-01-08 12:32] VITALS: BP 124/73
--- NOTE | 2020-01-08 13:27 | Physical Therapy Daily Note ---
PT Daily Note-Current Subjective Patient in bed pre tx, agrees to PT, has no complaints of pain at rest. Appearance Patient in bed post tx with nurse call,phone, tray, all needs met. Mental Status Patient Orientation: Normal For Age Transfers SCALE: Activities may be completed with or without assistive devices. 3-Jnzbpfygxz-ujnbspa completes the activity by him/herself with no assistance from a helper. 5-Set-up or Clean-up Assistance-helper sets up or cleans up; patient completes activity. [place] assists only prior to or following the activity. 4-Supervision or Touching Assistance-helper provides verbal cues and/or touching/steadying and/or contact guard assistance as patient completes activity. Assistance may be provided throughout the activity or intermittently. 3-Partial/Moderate Assistance-helper does LESS THAN HALF the effort. [place] lifts, holds or supports trunk or limbs, but provides less than half the effort. 2-Substantial/Maximal Assistance-helper does MORE THAN HALF the effort. [place] lifts or holds trunk or limbs and provides more than half the effort. 9-Kdflwqyfu-mgbzwm does ALL the effort. Patient does none of the effort to complete the activity. Or, the assistance of 2 or more helpers is required for the patient to complete the activity. If activity was not attempted, code reason: 7-Patient Refused. 9-Not Applicable-not attempted and the patient did not perform the activity before the current illness, exacerbation or injury. 10-Not Attempted due to Environmental Limitations-(lack of equipment, weather restraints, etc.). 88-Not Attempted due to Medical Conditions or Safety Concerns. Roll Left & Right (QC): 6 Patient had to adjust in bed and scoot up a little. Weight Bearing right BKA Exercises Supine Ex: Ankle pumps (LLE), Quad Set, Glut sets, Heel Slides, Short Arc Quads, Straight leg raise, Hip abd/add Supine Reps: 20 Patient needed rest break between every exercise. Treatments LE exercise Assessment Current Status: Poor Progress poor endurance and strength, needs assist with SLR PT Short Term Goals Short Term Goals Time Frame: Jan 11, 2020 Roll Left & Right: 6 Sit to lyin Lying to sitting on side of be: 4 Sit to stand: 3 Chair/gwr-hl-knlyc transfer: 3 PT Nursing Home Goals Entry Level Business Analyst Goals PT Nursing Home Goals Time Frame: Jan 25, 2020 Roll Left & Right (QC): 6 Sit to Lying (QC): 6 Lying-Sitting on Side/Bed(QC): 6 Sit to Stand (QC): 5 Chair/Bhy-gk-Pyess Xfer(QC): 5 Toilet Transfer (QC): 5 Car Transfer (QC): 5 Does the Patient Walk: No and Walking Goal NOT indicated Walk 10 feet (QC): 88 Walk 50ft with 2 Turns (QC): 88 Walk 150 ft (QC): 88 Walking 10ft on Uneven Surface: 88 1 Step (curb) (QC): 88 4 Steps (QC): 88 12 Steps (QC): 88 Picking up an Object (QC): 88 Wheel 50 feet with 2 turns (QC: 6 Wheel 150 feet: 6 PT Plan Problem List Problem List: Activity Tolerance, Functional Strength, Safety, Balance, Gait, Transfer, Bed Mobility, ROM Treatment/Plan Treatment Plan: Continue Plan of Care Treatment Plan: Bed Mobility, Education, Functional Activity Farsh[place], Functional Strength, Group Therapy, Safety, Therapeutic Exercise, Transfers Treatment Duration: Jan 25, 2020 Frequency: At least 5 of 7 days/Wk (IRF) Estimated Hrs Per Day: 1.5 hours per day Patient and/or Family Agrees t: Yes Safety Risks/Education Patient Education: Correct Positioning, Safety Issues Teaching Recipient: Patient Teaching Methods: Demonstration, Discussion Response to Teaching: Reinforcement Needed Time/GCodes Time In: 1300 Time Out: 1330 Total Billed Treatment Time: 30 Total Billed Treatment 1 visit EX 30' BETTY STRONG PT Jan 08, 2020 13:27
--- NOTE | 2020-01-08 14:06 | Occupational Ther Daily Note ---
OT Current Status-Daily Note Subjective Pt sleeping with CPap on in bed. Pt woke to calling name a few times. Pt agrees to therapy. Mental Status/Objective Patient Orientation: Person, Place, Time, Situation ADL-Treatment Therapy Code Descriptions/Definitions Functional [place] Measure: 0=Not Assessed/NA 4=Minimal Assistance 1=Total Assistance 5=Supervision or Setup 2=Maximal Assistance 6=Modified [place] 3=Moderate Assistance 7=Complete IndependenceSCALE: Activities may be completed with or without assistive devices. 0-Nsttxuxwfq-tkncslu completes the activity by him/herself with no assistance from a helper. 5-Set-up or Clean-up Assistance-helper sets up or cleans up; patient completes activity. [place] assists only prior to or following the activity. 4-Supervision or Touching Assistance-helper provides verbal cues and/or touching/steadying and/or contact guard assistance as patient completes activity. Assistance may be provided throughout the activity or intermittently. 3-Partial/Moderate Assistance-helper does LESS THAN HALF the effort. [place] lifts, holds or supports trunk or limbs, but provides less than half the effort. 2-Substantial/Maximal Assistance-helper does MORE THAN HALF the effort. [place] lifts or holds trunk or limbs and provides more than half the effort. 3-Nzihlvwpz-nqvzyi does ALL the effort. Patient does none of the effort to complete the activity. Or, the assistance of 2 or more helpers is required for the patient to complete the activity. If activity was not attempted, code reason: 7-Patient Refused. 9-Not Applicable-not attempted and the patient did not perform the activity before the current illness, exacerbation or injury. 10-Not Attempted due to Environmental Limitations-(lack of equipment, weather restraints, etc.). 88-Not Attempted due to Medical Conditions or Safety Concerns. Other Treatment Pt given medium resistance theraband for exercises in room. Pt completed own exercise routine. Completing each one 3 sets 10 reps. Recovery breaks between each set. After session, pt lying in bed with call light/phone in reach. All needs met in room. OT Short Term Goals Short Term Goals Time Frame: Jan 17, 2020 Shower/bathe self: 2 OT Halfway Goals Halfway Goals Time Frame: Feb 01, 2020 Eating (QC): 6 Oral Hygiene (QC): 6 Toileting Hygiene (QC): 4 Shower/Bathe Self (QC): 3 Upper Body Dressing (QC): 5 Lower Body Dressing (QC): 3 On/Off Footwear (QC): 2 Additional Goals: 1-Demonstrate ADL Tasks, 2-Verbalize Understanding, 3- ImproveStrength/[place] 1=Demonstrate adherence to instructed precautions during ADL tasks. 2=Patient will verbalize/demonstrate understanding of assistive devices/modifications for ADL. 3=Patient will improve strength/tolerance for activity to enable patient to perform ADL's. OT Education/Plan Problem List/Assessment Assessment: Decreased Activ Tolerance, Decreased UE Strength, Impaired Self- Care Skills Discharge Recommendations Plan/Recommendations: Continue POC Treatment Plan/Plan of Care Patient would benefit from OT for education, treatment and training to promote independence in ADL's, mobility, safety and/or upper extremity function for ADL's. Plan of Care: ADL Retraining, Functional Mobility, Group Exercise/Act as Ind, UE Funct Exercise/Act Treatment Duration: Feb 01, 2020 Frequency: At least 5 of 7 days/Wk (IRF) Estimated Hrs Per Day: 1.5 hours per day Agreement: Yes Rehab Potential: Guarded Time/GCodes Start Time: 13:30 Stop Time: 14:00 Total Time Billed (hr/min): 30 Billed Treatment Time 1 visit-EX 2 (30 min) MARIA A KEENE Jan 08, 2020 14:06
--- NOTE | 2020-01-08 14:51 | NUR ---
Pt is Yarsanism and expresses no orthodoxy needs at this time. Ordained Minister offered blessing.
[2020-01-08] MEDS ORDERED: warFARin 4 MG (COUMADIN) TAB PO SCH (18:00)
[2020-01-08] MEDS ORDERED: warFARin 10 MG (COUMADIN) TAB PO SCH (18:00)
[2020-01-08 18:06] VITALS: BP 127/77
--- NOTE | 2020-01-08 20:35 | Wound Care Assessment ---
Wound Care Assessment Date Seen by Provider: Jan 08, 2020 Time Seen by Provider: 20:26 Chief Complaint L forefoot infection. HPI The patient is a 69 year old male with an infected ulcer underlying the L 3rd toe. Ultrasound is consistent with ischemic disease of the L leg. The wound has deteriorated. will change to Betadine paint to try to dry the wound out. Vascular and surgical consultations recommended. Past Medical History: Admits Diabetes Type II, Admits Heart Disease, Admits Peripheral Artery Disease Smoking Status: Former Smoker Recreational Drug Use: Yes Alcohol Use: Denies Use Review of Systems Pulmonary: Dyspnea Musculoskeletal: back pain Exam Vital Signs Date Time Temp Pulse Resp B/P (MAP) Pulse Ox O2 Delivery O2 Flow Rate FiO2 01/08/20 18:36 91 NIV CPAP 4.00 01/08/20 18:06 36.8 75 18 127/77 (94) 01/07/20 18:48 36 Capillary Refill : Less Than 3 Seconds General Appearance: mild distress Extremities: other (L 3rd toe ulcer 1.5 x 0.9 x 0.3 cm, base viable, macerated skin.) Results Laboratory Tests 01/08/20 05:23: White Blood Count 6.8, Red Blood Count 3.52L, Hemoglobin 9.9L, Hematocrit 30L, Mean Corpuscular Volume 86, Mean Corpuscular Hemoglobin 28, Mean Corpuscular Hemoglobin Concent 33, Red Cell Distribution Width 15.1H, Platelet Count 149, Mean Platelet Volume 11.1H, Neutrophils (%) (Auto) 70, Lymphocytes (%) (Auto) 15, Monocytes (%) (Auto) 13H, Eosinophils (%) (Auto) 2, Basophils (%) (Auto) 0, Neutrophils # (Auto) 4.7, Lymphocytes # (Auto) 1.0, Monocytes # (Auto) 0.9, Eosinophils # (Auto) 0.2, Basophils # (Auto) 0.0, Prothrombin Time 24.0H, INR Comment 2.0H, Sodium Level 137, Potassium Level 4.0, Chloride Level 103, Carbon Dioxide Level 22, Anion Gap 12, Blood Urea Nitrogen 35H, Creatinine 1.84H, Estimat Glomerular Filtration Rate 37, BUN/Creatinine Ratio 19, Glucose Level 72, Glucometer 84, Calcium Level 8.6, Corrected Calcium 9.2, Total Bilirubin 0.4, Aspartate Amino Transf (AST/SGOT) 25, Alanine Aminotransferase (ALT/SGPT) 27, Alkaline Phosphatase 129, Total Protein 6.3L, Albumin 3.2 01/08/20 10:12: Glucometer 181H 01/08/20 14:33: Glucometer 222H 01/08/20 19:39: Glucometer 186H Assessment/Plan/Dx 1. diabetic foot ulcer, L 3rd toe, [place]is Grade 2. 2. Cellulitis of L foot. 3. Uncontrolled diabetes on admission. 4. Peripheral arterial disease. L 3rd toe is purple. Plan: Change to Betadine paint dressings to try to dry the wound out. Suggest Vascular evaluation for possible angiography and Surgical evaluation for possible L 3rd toe amputation. Consider IV antibiotics. ELMO DAWN MD Jan 08, 2020 20:35
[2020-01-08] MEDS: TAMSULOSIN 0.4 MG (FLOMAX) CAP PO SCH (21:31)
[2020-01-08] MEDS: FINASTERIDE (PROSCAR) 5 MG TAB PO SCH (21:31)
[2020-01-08] MEDS: AMITRIPTYLINE 25 MG (ELAVIL) TAB PO SCH (21:32)
[2020-01-08] MEDS: POVIDONE (BETADINE) 10% SOLN 240 ML BTL TOP SCH (21:48)
[2020-01-09] MEDS: inSUlin ASPART (NovoLOG) 1 UNIT/0.01 ML (CHARGE PER UNIT) SC SCH ×4 (05:37→19:42)
[2020-01-09 05:49] VITALS: BP 110/65
--- NOTE | 2020-01-09 06:26 | PM&R Progress Note ---
Subjective HPI/CC On Admission Date Seen by Provider: Jan 09, 2020 Time Seen by Provider: 09:45 Subjective/Events-last exam Dr. Mcmahan called me today and thinks the toe is infected and may need amputation so I did consult Dr. Terry and I did consult Dr. Champion Bowels moved yesterday INR therapeutic discontinued Lovenox yesterday IV antibiotics will be initiated currently pt on Omnicef and Doxycycline Midline will be placed Pt may require upstairs management Checked meds and labs Checked therapy notes Conferred with chip separator of Systems General: Fatigue Musculoskeletal: leg pain Objective Exam Vital Signs Vital Signs Date Time Temp Pulse Resp B/P (MAP) Pulse Ox O2 Delivery O2 Flow Rate FiO2 01/09/20 18:34 91 NIV CPAP 5.00 01/09/20 17:54 37.2 66 20 131/69 (89) 01/07/20 18:48 36 Capillary Refill : Less Than 3 Seconds General Appearance: No Apparent Distress, WD/WN, Chronically ill, Obese HEENT: PERRL/EOMI, Normal ENT Inspection, Pharynx Normal Neck: Full Range of Motion, Normal Inspection, Non Tender, Supple, Carotid Bruit Respiratory: Chest Non Tender, Lungs Clear, Normal Breath Sounds, No Accessory Muscle Use, No Respiratory Distress Cardiovascular: Regular Rate, Rhythm, No Edema, No Gallop, No JVD, No Murmur, Normal Peripheral Pulses Gastrointestinal: Normal Bowel Sounds, No Organomegaly, No Pulsatile Mass, Non Tender, Soft Back: Normal Inspection, No CVA Tenderness, No Vertebral Tenderness Extremity: Normal Capillary Refill, Normal Inspection, Normal Range of Motion, Non Tender, No Calf Tenderness, No Pedal Edema, Other (right AKA) Neurologic/Psychiatric: Alert, Oriented x3, No Motor/Sensory Deficits, Normal Mood/Affect, electronic system engineer II-XII Norm as Tested, Motor Weakness (generalized weakness left leg) Skin: Normal Color, Warm/Dry Lymphatic: No Adenopathy Results/Procedures Lab Patient resulted labs reviewed. FIM Transfers Therapy Code Descriptions/Definitions Functional [place] Measure: 0=Not Assessed/NA 4=Minimal Assistance 1=Total Assistance 5=Supervision or Setup 2=Maximal Assistance 6=Modified [place] 3=Moderate Assistance 7=Complete IndependenceSCALE: Activities may be completed with or without assistive devices. 1-Vfwrmxaaka-psfocbn completes the activity by him/herself with no assistance from a helper. 5-Set-up or Clean-up Assistance-helper sets up or cleans up; patient completes activity. [place] assists only prior to or following the activity. 4-Supervision or Touching Assistance-helper provides verbal cues and/or touching/steadying and/or contact guard assistance as patient completes activity. Assistance may be provided throughout the activity or intermittently. 3-Partial/Moderate Assistance-helper does LESS THAN HALF the effort. [place] lifts, holds or supports trunk or limbs, but provides less than half the effort. 2-Substantial/Maximal Assistance-helper does MORE THAN HALF the effort. [place] lifts or holds trunk or limbs and provides more than half the effort. 3-Fjjmgpkzr-wnbvxu does ALL the effort. Patient does none of the effort to complete the activity. Or, the assistance of 2 or more helpers is required for the patient to complete the activity. If activity was not attempted, code reason: 7-Patient Refused. 9-Not Applicable-not attempted and the patient did not perform the activity before the current illness, exacerbation or injury. 10-Not Attempted due to Environmental Limitations-(lack of equipment, weather restraints, etc.). 88-Not Attempted due to Medical Conditions or Safety Concerns. Roll Left to Right (QC): 6 Sit to Lying (QC): 3 Sit to Stand (QC): 2 Chair/Dus-gk-Bjqxq Xfer(QC): 2 Car Transfer (QC): 1 Gait Training Does the Patient Walk?: No and Walking Goal NOT indicated Walk 10 feet (QC): 88 Walk 50 ft with 2 Turns(QC): 88 Walk 150 ft (QC): 88 Walking 10ft/uneven surface-QC: 88 Wheelchair Training Does the Pt Use a Wheelchair?: Yes Wheel 50 ft with 2 turns (QC): 1 Wheel 150 ft (QC): 1 Type of Wheelchair: Manual Stair Training 1 Step (curb) (QC): 88 4 Steps (QC): 88 12 Steps (QC): 88 Balance Picking up an Object (QC): 88 ADL-Treatment Eating (QC): 5 (set up. OT opened sugar packet and poured into tea. Pt able to filler picker bowl and bring food to his mouth.) Oral Hygiene (QC): 6 Shower/Bathe Self (QC): 2 Upper Body Dressing (QC): 5 Lower Body Dressing (QC): 1 On/Off Footwear (QC): 2 Toileting Hygiene (QC): 1 Toilet Transfer (QC): 1 Assessment/Plan Assessment and Plan Assess & Plan/Chief Complaint Assessment: Debility Falls DM OOC Left foot wound h/o right BKA CAD CABG hx PVD Coumadin treatment Peripheral neuropathy CKD CHF Poor motivation TREE [place] stenosis maintained on Coumadin Plan: IRF protocol Home meds Monitor INR Sugar management Lovenox bridge dc INR with labs tomorrow Catherization tomorrow to evaluate left leg IV abx (1) Debility (2) Diabetes mellitus, insulin dependent (IDDM), uncontrolled Status: Acute (3) TREE (obstructive sleep apnea) Status: Chronic (4) Renal insufficiency Status: Acute (5) CAD (coronary artery disease) Status: Chronic (6) Hypoxia Status: Acute GODFREY ZEPEDA DO Jan 09, 2020 06:26
[2020-01-09] MEDS: RT-ALBUTEROL/IPRATROPIUM 3 ML (DUONEB) VIAL INH SCH ×3 (06:45→18:34)
[2020-01-09] MEDS: DOXYCYCLINE 100 MG (VIBRAMYCIN) TABLET PO SCH ×2 (06:55→17:25)
[2020-01-09] MEDS: KCL 20 MEQ TAB (K-DUR) PO SCH (06:55)
[2020-01-09] MEDS: VENlafaxine XR 75 MG (EFFEXOR XR) CAP PO SCH (06:55)
[2020-01-09] MEDS: FUROSEMIDE 40 MG (LASIX) TAB PO SCH ×2 (06:55→17:25)
[2020-01-09] MEDS: inSUlin ASPART (NovoLOG) 1 UNIT/0.01 ML (CHARGE PER UNIT) SQ SCH ×3 (06:56→17:25)
[2020-01-09] MEDS: ASCORBIC ACID (VIT C) 500 MG TABLET PO SCH ×2 (08:17→17:24)
[2020-01-09] MEDS: VITAMIN D3 25 MCG (1,000 UNITS) TABLET PO SCH ×2 (08:17→20:56)
[2020-01-09] MEDS: hydrALAZINE (APRESOLINE) 25 MG TAB PO SCH ×3 (08:17→20:55)
[2020-01-09] MEDS: OMEGA 3 (FISH OIL) 1000 MG CAP PO SCH ×2 (08:17→20:56)
[2020-01-09] MEDS: amLODIPine 10 MG (NORVASC) TAB PO SCH (08:17)
[2020-01-09] MEDS: FOLIC ACID 1 MG TAB PO SCH (08:17)
[2020-01-09] MEDS: ASPIRIN E.C. 81 MG (ECOTRIN) TAB PO SCH (08:17)
[2020-01-09] MEDS: CEFDINIR 300 MG (OMNICEF) CAP PO SCH ×2 (08:17→20:55)
[2020-01-09] MEDS: CARVEDILOL 12.5 MG (COREG) TABLET PO SCH ×2 (08:18→20:55)
[2020-01-09] MEDS: MAGNESIUM OXIDE (MAG-OX)400 MG TAB PO SCH (08:18)
[2020-01-09] MEDS: ALLOPURINOL 100 MG (ZYLOPRIM) TAB PO SCH (08:18)
[2020-01-09] MEDS: VITAMIN E 180 MG (400 UNITS) CAP PO SCH (08:18)
[2020-01-09] MEDS: GEMFIBROZIL 600 MG (LOPID) TAB PO SCH (08:18)
[2020-01-09] MEDS: SENNA W/DOCUSATE (SENOKOT S) TABLET PO SCH ×2 (08:19→20:56)
[2020-01-09] MEDS: DOCUSATE SODIUM 100 MG (COLACE) CAP PO SCH ×2 (08:20→20:56)
[2020-01-09] MEDS: polyethylene glycoL POWDER 17 GM (MIRALAX) PACK PO SCH ×2 (08:20→20:56)
[2020-01-09] MEDS: POVIDONE (BETADINE) 10% SOLN 240 ML BTL TOP SCH ×2 (08:20→20:57)
[2020-01-09] MEDS: TRIAMCINOLONE 0.5% CR (KENALOG) 15 GM TUBE TOP SCH (08:21)
[2020-01-09] MEDS: MICONAZOLE 2% POWDER (DESENEX AF) 90 GM TOP SCH ×2 (08:22→09:44)
--- NOTE | 2020-01-09 08:53 | Consultation-Cardiology ---
HPI-Cardiology Cardiology Consultation Date of Consultation 01/09/20 Date of Admission Time Seen by Provider: 08:49 Indication: LLE non healing wounds HPI Patient is a 69 y/o male with history of CAD, PVD with hx of right BKA, hx of noncompliance. Currently in IRF secondary to generalized weakness and frequent falling. Has non healing wounds to LLE and has been following with wound care. Denies any chest pain or increased dyspnea. 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 Macdonald. Home Medications & Allergies Allergies: Coded Allergies: niacin (Unverified Allergy, Unknown, 06/26/10) rosuvastatin (Verified Allergy, Unknown, 04/20/07) fenofibrate (Unverified Adverse Reaction, Unknown, LIVER PROBLEMS, 01/23/15) Home Medication List Reviewed: Yes CCC-Mafzfg-Xgqgya Hx Patient Social History Marital Status: single Employed/Student: unemployed Alcohol Use: Denies Use Recreational Drug Use: Yes Drug of Choice: past hx drug use. Smoking Status: Former Smoker Former smoker/When Quit: Aug 07, 2005 2nd Hand Smoke Exposure: No Recent Foreign Travel: No Recent Infectious Disease Expo: No Recent Hopitalizations: Yes Physical Abuse Screen: No Sexual Abuse: No Immunizations Up To Date Tetanus Booster (TDap): Unknown Date of Pneumonia Vaccine: May 02, 2018 Past Medical History CAD, HTN, PVD, HLP, Obesity, medical noncompliance Family Medical History Significant Family History: Heart Disease, Cancer Family History: Cardiovascular disease 19 FATHER, Onset:Unknown FH: breast cancer G8 SISTER, Onset:50's - 60 FH: ovarian cancer 19 MOTHER, Onset:40's - 50 No Family History of: Cancer of mouth Review of Systems-General Review of Systems Constitutional: see HPI; No chills, No diaphoresis, No fever; malaise, weakness EENTM: see HPI, no symptoms reported; No blurred vision, No double vision Respiratory: no symptoms reported; No cough, No dyspnea on exertion Cardiovascular: no symptoms reported; No chest pain; edema, Hx of Intervention; No palpitations, No vascular heart diseas Gastrointestinal: constipation Genitourinary: no symptoms reported; No frequency Musculoskeletal: back pain Skin: other (non healing wounds to left ant felton and left toes) All Other Systems Reviewed Negative Unless Noted: Yes Reviewed Test Results Reviewed Test Results Lab Laboratory Tests 01/08/20 14:33: Glucometer 222H 01/08/20 19:39: Glucometer 186H 01/09/20 05:35: Glucometer 129H 01/09/20 09:29: Glucometer 142H Physical Exam Physical Exam Vital Signs Vital Signs - First Documented 01/04/20 01/04/20 01/04/20 11:51 11:55 18:48 Temp 36.4 Pulse 73 Resp 22 B/P (MAP) 115/69 Pulse Ox 93 O2 Delivery NIV CPAP O2 Flow Rate 4.00 FiO2 36 Capillary Refill : Less Than 3 Seconds Height, Weight, BMI Height: 6'0.00" Weight: 322lbs. 1.0oz. 146.707378nq; 47.39 BMI Method:Stated General Appearance: No Apparent Distress, WD/WN, Chronically ill, Obese Eyes: Bilateral Eye Normal Inspection, Bilateral Eye PERRL HEENT: PERRL/EOMI, Normal ENT Inspection, Pharynx Normal Neck: Full Range of Motion, Normal Inspection, Non Tender, Supple, Carotid Bruit Respiratory: Chest Non Tender, Lungs Clear, Normal Breath Sounds, No Accessory Muscle Use, No Respiratory Distress Cardiovascular: Regular Rate, Rhythm, No Gallop, No JVD, No Murmur, Other (+1 edema BLE) Gastrointestinal: Normal Bowel Sounds, Non Tender, Soft Back: Normal Inspection, No CVA Tenderness, No Vertebral Tenderness Extremity: Normal Capillary Refill, Normal Inspection, Normal Range of Motion, Pedal Edema, Other (right AKA, LLE with nonhealing wounds to left ant felton and toes) Neurologic/Psychiatric: Alert, Oriented x3, No Motor/Sensory Deficits, Normal Mood/Affect, manager cardiac II-XII Norm as Tested, Motor Weakness (generalized weakness left leg) Skin: Normal Color, Warm/Dry Lymphatic: No Adenopathy A/P-Cardiology Admission Diagnosis PAD LLE nonhealing wounds CAD HTN Assessment/Plan Peripheral arterial disease, history of right BKA, had progressive wound that resulted in the amputation done in November 2018, followed by BKA. Now having nonhealing wounds to LLE at anterior felton and toes. Planning to peripheral angiogram, right groin access tomorrow. Acute on chronic renal insufficiency, I will start him on IV fluid and continue to monitor renal function closely. Coronary artery disease, history of multiple interventions, total of 8 stents, had bypass surgery using single vessel after failed multiple attempts for intervention done at [facility] in 2017. 2D echo done October 2019 revealed normal LV size and normal PA pressure, followed by Drs. Ponce Hypertension, continue on current medications and continue to monitor. Hyperlipidemia, intolerant to multiple statin, continue to monitor lipids COPD, obstructive sleep apnea, maintained on C Pap, persistent dyspnea Pulmonary hypertension. Diabetes mellitus, followed and managed by primary care physician Obesity, educated on weight loss Carotid stenosis, totally occluded left ICA, less than 40 percent on the right side. Followed at primary care physician Vertigo, dizziness, chronic. Medical noncompliance. Thank you for allowing us to participate in the management of Mr. Newberry. This is Brenda Gerardo PA-C, as a scribe for Dr. Terry. Patient was seen and evaluated with Brenda, examination performed, management plan was discussed, agree with the current scribed note, I made few changes to the note using Italic font Patient was seen at bedside laying down comfortably, had BKA amputation on the right, gangrene on the left with multiple wounds on the toes and felton. On examination lungs were clear to auscultation, heart is regular, had extensive cardiac history as described above We discussed the management plan offered peripheral angiogram and offered to transfer him to [place] for evaluation with his primary chicken and fish butcher Patient expressed that he would like to have it done here. Understand risks, had multiple procedures done in the past. Had extensive cardiac history as described above. Educated in length about compliance with medication, has history of noncompliance Clinical Quality Measures DVT/VTE Risk/Contraindication: Risk Factor Score Per Nursin RFS Level Per Nursing on Admit: 4+=Very High BRENDA HAWLEY Jan 09, 2020 8:53 am BARBIE TERRY MD Jan 09, 2020 11:36 am
[2020-01-09] MEDS ORDERED: VANCOMYCIN INJECTION 0.1 MG in NS (IVPB) 250 ML IV SCH (09:45)
[2020-01-09] MEDS ORDERED: VANCOMYCIN 2000 MG/NS 500 ML IVPB IV NR ×2 (10:30)
--- NOTE | 2020-01-09 10:44 | NUR ---
VANCOMYCIN PHARMACY TO DOSE: PATIENT WEIGHT 157KG. 20MG/KG X 157KG = 3140MG, 15MG/KG X 157KG = 2355; SCr 1.84, CrCl 59.99; MODELED DOSE OFF OF PREVIOUS HISTORY FROM 11/2018 WHICH YIELDED TROUGH LEVEL OF 15.7: VANCOMYCIN 2G LOADING DOSE 01/08 @ 1030, 1750MG MAINTENANCE DOSE Q24H STARTING 01/09 @ 1030; VANCOMYCIN TROUGH DUE 01/11 @ 0930; IF TROUGH >20, HOLD 1030 DOSE AND CONTACT PHARMACY FOR ADJUSTMENTS.
--- NOTE | 2020-01-09 11:22 | Occupational Ther Daily Note ---
OT Current Status-Daily Note Subjective Pt sleeping in bed with CPAP, woke to touch on shldr. Pt agrees to therapy. Pt is self limiting, instead of initiating tasks pt will state do this or that, ie. lock brakes, move w/c, or anything that is out of his personal routine. Pt yelled at COBIAN for not having equipment in the position he wanted them in and worrying about stupid little things with transferring. Mental Status/Objective Patient Orientation: Person, Place, Time, Situation ADL-Treatment PT/OT co-treat ([id number]), skills of 2 clinicians due to medical complexity, low activity tolerance, safety and unsafe transfers. PT working on transfers, standing and mobility during ADLs. OT working on functional transfers and ADLs. Pt agrees to shower. Pt required assist x2 for all transfers due to weakness and safety issues. Pt able to complete upper body, markel area and upper LE's for bathing, assist for all other areas. Pt leans forward on shower bench using grabbars to allow enough space to cleanse buttocks. Pt c/o how grabbars and equipment are set up and that it is better in his home. COBIAN asked pt if he was aware of lower body dressing equipment, pt stated that he was and had at his home. Then stated that he has a girl that helps him with all of that when she comes to give him a bath. After set up, pt able to don/doff shirt. Dependent with donning/doffing lower body clothing and footwear. Sitting at sink, pt able to complete oral care and grooming. After session, pt lying in bed with call light/phone in reach. All needs met in room. Therapy Code Descriptions/Definitions Functional Cook Measure: 0=Not Assessed/NA 4=Minimal Assistance 1=Total Assistance 5=Supervision or Setup 2=Maximal Assistance 6=Modified Cook 3=Moderate Assistance 7=Complete IndependenceSCALE: Activities may be completed with or without assistive devices. 3-Ryoauammvh-erzyfhq completes the activity by him/herself with no assistance from a helper. 5-Set-up or Clean-up Assistance-helper sets up or cleans up; patient completes activity. [place] assists only prior to or following the activity. 4-Supervision or Touching Assistance-helper provides verbal cues and/or touching/steadying and/or contact guard assistance as patient completes activity. Assistance may be provided throughout the activity or intermittently. 3-Partial/Moderate Assistance-helper does LESS THAN HALF the effort. [place] lifts, holds or supports trunk or limbs, but provides less than half the effort. 2-Substantial/Maximal Assistance-helper does MORE THAN HALF the effort. [place] lifts or holds trunk or limbs and provides more than half the effort. 9-Dfaltsydw-khmmcx does ALL the effort. Patient does none of the effort to complete the activity. Or, the assistance of 2 or more helpers is required for the patient to complete the activity. If activity was not attempted, code reason: 7-Patient Refused. 9-Not Applicable-not attempted and the patient did not perform the activity before the current illness, exacerbation or injury. 10-Not Attempted due to Environmental Limitations-(lack of equipment, weather restraints, etc.). 88-Not Attempted due to Medical Conditions or Safety Concerns. Oral Hygiene (QC): 6 Shower/Bathe Self (QC): 2 Upper Body Dressing (QC): 5 Lower Body Dressing (QC): 1 On/Off Footwear: 2 OT Short Term Goals Short Term Goals Time Frame: Jan 17, 2020 Shower/bathe self: 2 OT Care Home Goals Care Home Goals Time Frame: Feb 01, 2020 Eating (QC): 6 Oral Hygiene (QC): 6 Toileting Hygiene (QC): 4 Shower/Bathe Self (QC): 3 Upper Body Dressing (QC): 5 Lower Body Dressing (QC): 3 On/Off Footwear (QC): 2 Additional Goals: 1-Demonstrate ADL Tasks, 2-Verbalize Understanding, 3- ImproveStrength/Farshad 1=Demonstrate adherence to instructed precautions during ADL tasks. 2=Patient will verbalize/demonstrate understanding of assistive devices/modifications for ADL. 3=Patient will improve strength/tolerance for activity to enable patient to perform ADL's. OT Education/Plan Problem List/Assessment Assessment: Decreased Activ Tolerance, Decreased Safety Aware, Decreased UE Strength, Dependent Transfers, Impaired Coordination, Impaired Funct Balance, Impaired Self-Care Skills Discharge Recommendations Plan/Recommendations: Continue POC Treatment Plan/Plan of Care Patient would benefit from OT for education, treatment and training to promote independence in ADL's, mobility, safety and/or upper extremity function for ADL's. Plan of Care: ADL Retraining, Functional Mobility, Group Exercise/Act as Ind, UE Funct Exercise/Act Treatment Duration: Feb 01, 2020 Frequency: At least 5 of 7 days/Wk (IRF) Estimated Hrs Per Day: 1.5 hours per day Agreement: Yes Rehab Potential: Guarded Time/GCodes Start Time: 10:00 Stop Time: 11:15 Total Time Billed (hr/min): 75 Billed Treatment Time 1 visit-ADL 5 (75 min) co-treat with PT [id number], individual [id number] MARIA A KEENE Jan 09, 2020 11:22
--- NOTE | 2020-01-09 11:53 | Physical Therapy Daily Note ---
PT Daily Note-Current Subjective Patient in bed pre tx, agrees to PT, has no complaints of pain at rest. Will be co-treating with OT due to poor patient mobility, strength, endurance, balance, left knee buckling, the need to coordinate UE and LE during activity, reduce the risk of falls. Patient very lethargic and needs extra time to rouse. Appearance Patient in bed post tx with nurse call,phone, tray, all needs met. Mental Status Patient Orientation: Person, Place, Situation Transfers SCALE: Activities may be completed with or without assistive devices. 4-Ceqlsxappr-sntjsnj completes the activity by him/herself with no assistance from a helper. 5-Set-up or Clean-up Assistance-helper sets up or cleans up; patient completes activity. [place] assists only prior to or following the activity. 4-Supervision or Touching Assistance-helper provides verbal cues and/or touching/steadying and/or contact guard assistance as patient completes activity. Assistance may be provided throughout the activity or intermittently. 3-Partial/Moderate Assistance-helper does LESS THAN HALF the effort. [place] lifts, holds or supports trunk or limbs, but provides less than half the effort. 2-Substantial/Maximal Assistance-helper does MORE THAN HALF the effort. [place] lifts or holds trunk or limbs and provides more than half the effort. 5-Jnteibrps-ldysko does ALL the effort. Patient does none of the effort to complete the activity. Or, the assistance of 2 or more helpers is required for the patient to complete the activity. If activity was not attempted, code reason: 7-Patient Refused. 9-Not Applicable-not attempted and the patient did not perform the activity before the current illness, exacerbation or injury. 10-Not Attempted due to Environmental Limitations-(lack of equipment, weather restraints, etc.). 88-Not Attempted due to Medical Conditions or Safety Concerns. Roll Left & Right (QC): 2 Sit to Lying (QC): 2 Lying to Sitting/Side of Bed(Q: 2 Sit to Stand (QC): 2 Chair/Pmh-vw-Hqjjl Xfer(QC): 2 Patient supine to sit, transfer to with elevated bed and rolling walker, wheeled to shower room, transferred to shower bench, transferred to , wheeled to room, standing for dressing, transfer to bed. Patient much weaker today, needs to use right residual limb unconventionally in order to stand and perform transfers, this is not the best idea because he has a wound on his residual limb. We may have to start using a rae or sit to stand machine. Patient also got aggressive and threatened OT, patient had to be told he cannot threaten hospital staff. Weight Bearing right BKA Treatments bed mobility and transfers, shower, dressing. PT performed bed mobility and transfers, standing, assist with standing and positioning with dressing and shower, OT performed shower, dressing, assist with UE positioning and safety during functional mobility Assessment Current Status: Poor Progress Patient much weaker today, aggressive with staff. PT Short Term Goals Short Term Goals Time Frame: Jan 11, 2020 Roll Left & Right: 6 Sit to lyin Lying to sitting on side of be: 4 Sit to stand: 3 Chair/rvu-mf-dlbau transfer: 3 PT Jail Goals Jail Goals PT Jail Goals Time Frame: Jan 25, 2020 Roll Left & Right (QC): 6 Sit to Lying (QC): 6 Lying-Sitting on Side/Bed(QC): 6 Sit to Stand (QC): 5 Chair/Hcj-pk-Rvuam Xfer(QC): 5 Toilet Transfer (QC): 5 Car Transfer (QC): 5 Does the Patient Walk: No and Walking Goal NOT indicated Walk 10 feet (QC): 88 Walk 50ft with 2 Turns (QC): 88 Walk 150 ft (QC): 88 Walking 10ft on Uneven Surface: 88 1 Step (curb) (QC): 88 4 Steps (QC): 88 12 Steps (QC): 88 Picking up an Object (QC): 88 Wheel 50 feet with 2 turns (QC: 6 Wheel 150 feet: 6 PT Plan Problem List Problem List: Activity Tolerance, Functional Strength, Safety, Balance, Gait, Transfer, Bed Mobility, ROM Treatment/Plan Treatment Plan: Continue Plan of Care Treatment Plan: Bed Mobility, Education, Functional Activity Farshad, Functional Strength, Group Therapy, Safety, Therapeutic Exercise, Transfers Treatment Duration: Jan 25, 2020 Frequency: At least 5 of 7 days/Wk (IRF) Estimated Hrs Per Day: 1.5 hours per day Patient and/or Family Agrees t: Yes Safety Risks/Education Patient Education: Transfer Techniques, Correct Positioning, Safety Issues Teaching Recipient: Patient Teaching Methods: Demonstration, Discussion Response to Teaching: Reinforcement Needed Time/GCodes Time In: 1000 Time Out: 1100 Total Billed Treatment Time: 60 Total Billed Treatment 1 visit FA 60' co-treated for 60 min BETTY STRONG PT Jan 09, 2020 11:53
--- NOTE | 2020-01-09 11:53 | NUR ---
PICC NURSE STATES THAT SHE WILL BE HERE SOMETIME AFTER 1430. UNABLE TO COME BEFORE THEN.
[2020-01-09] MEDS: FERROUS SULF 325 MG (IRON) TAB PO SCH (12:48)
[2020-01-09 12:49] VITALS: BP 115/77
--- NOTE | 2020-01-09 13:19 | Occupational Ther Daily Note ---
OT Current Status-Daily Note Subjective Pt sleeping with CPAP on in bed. Woke to name x3. Agrees to therapy. Mental Status/Objective Patient Orientation: Person, Place, Time, Situation ADL-Treatment Therapy Code Descriptions/Definitions Functional [place] Measure: 0=Not Assessed/NA 4=Minimal Assistance 1=Total Assistance 5=Supervision or Setup 2=Maximal Assistance 6=Modified [place] 3=Moderate Assistance 7=Complete IndependenceSCALE: Activities may be completed with or without assistive devices. 0-Mymxzioyvv-qssrvcp completes the activity by him/herself with no assistance from a helper. 5-Set-up or Clean-up Assistance-helper sets up or cleans up; patient completes activity. [place] assists only prior to or following the activity. 4-Supervision or Touching Assistance-helper provides verbal cues and/or touching/steadying and/or contact guard assistance as patient completes activity. Assistance may be provided throughout the activity or intermittently. 3-Partial/Moderate Assistance-helper does LESS THAN HALF the effort. [place] lifts, holds or supports trunk or limbs, but provides less than half the effort. 2-Substantial/Maximal Assistance-helper does MORE THAN HALF the effort. [place] lifts or holds trunk or limbs and provides more than half the effort. 7-Xeobymusg-ymxhzh does ALL the effort. Patient does none of the effort to complete the activity. Or, the assistance of 2 or more helpers is required for the patient to complete the activity. If activity was not attempted, code reason: 7-Patient Refused. 9-Not Applicable-not attempted and the patient did not perform the activity before the current illness, exacerbation or injury. 10-Not Attempted due to Environmental Limitations-(lack of equipment, weather restraints, etc.). 88-Not Attempted due to Medical Conditions or Safety Concerns. Other Treatment Pt took increased time to wake and participate. UE dowel niyah exercises completed with 3# wt to increase B UE strength and activity tolerance. 1 set 10 reps each with recovery breaks between each set. After session, anesthesiologist present in room. Call light/phone in reach. All needs met in room. OT Short Term Goals Short Term Goals Time Frame: Jan 17, 2020 Shower/bathe self: 2 OT Mixing Machine Tender Cork Gasket Goals Nursing Home Goals Time Frame: Feb 01, 2020 Eating (QC): 6 Oral Hygiene (QC): 6 Toileting Hygiene (QC): 4 Shower/Bathe Self (QC): 3 Upper Body Dressing (QC): 5 Lower Body Dressing (QC): 3 On/Off Footwear (QC): 2 Additional Goals: 1-Demonstrate ADL Tasks, 2-Verbalize Understanding, 3- ImproveStrength/Farshad 1=Demonstrate adherence to instructed precautions during ADL tasks. 2=Patient will verbalize/demonstrate understanding of assistive devices/mo difications for ADL. 3=Patient will improve strength/tolerance for activity to enable patient to perform ADL's. OT Education/Plan Problem List/Assessment Assessment: Decreased Activ Tolerance, Decreased UE Strength Discharge Recommendations Plan/Recommendations: Continue POC Treatment Plan/Plan of Care Patient would benefit from OT for education, treatment and training to promote independence in ADL's, mobility, safety and/or upper extremity function for ADL's. Plan of Care: ADL Retraining, Functional Mobility, Group Exercise/Act as Ind, UE Funct Exercise/Act Treatment Duration: Feb 01, 2020 Frequency: At least 5 of 7 days/Wk (IRF) Estimated Hrs Per Day: 1.5 hours per day Agreement: Yes Rehab Potential: Guarded Time/GCodes Start Time: 13:00 Stop Time: 13:15 Total Time Billed (hr/min): 15 Billed Treatment Time 1 visit-EX 1 (15 min) MARIA A KEENE Jan 09, 2020 13:19
--- NOTE | 2020-01-09 13:45 | NUR ---
DR. WINCHESTER HERE THIS AM WITH ORDERS TO SCHEDULE AN AMPUTATION OF LEFT THIRD TOE TOMORROW, 01/10/20. INFORMED OF DR. ALFRED'S PLAN FOR PERIPHERAL ANGIOGRAM WITH POSSIBLE ANGIOPLASTY AND STENT TOMORROW. DR. WINCHESTER STATES THAT THIS IS OK... AND WILL DO AMPUTATION EITHER BEFORE OR AFTER ANGIOGRAM. DR. ALFRED UPDATED.
--- NOTE | 2020-01-09 14:03 | Physical Therapy Daily Note ---
PT Daily Note-Current Subjective Patient in bed pre tx, sleeping, very lethargic, agrees to exercises in bed Appearance Patient in bed post tx with nurse call, phone, tray, all needs met. Mental Status Patient Orientation: Person, [place] Transfers SCALE: Activities may be completed with or without assistive devices. 4-Qwuasndobv-vojlssy completes the activity by him/herself with no assistance from a helper. 5-Set-up or Clean-up Assistance-helper sets up or cleans up; patient completes activity. [place] assists only prior to or following the activity. 4-Supervision or Touching Assistance-helper provides verbal cues and/or touching/steadying and/or contact guard assistance as patient completes activity. Assistance may be provided throughout the activity or intermittently. 3-Partial/Moderate Assistance-helper does LESS THAN HALF the effort. [place] lifts, holds or supports trunk or limbs, but provides less than half the effort. 2-Substantial/Maximal Assistance-helper does MORE THAN HALF the effort. [place] lifts or holds trunk or limbs and provides more than half the effort. 3-Jesczrovs-kxjfmn does ALL the effort. Patient does none of the effort to complete the activity. Or, the assistance of 2 or more helpers is required for the patient to complete the activity. If activity was not attempted, code reason: 7-Patient Refused. 9-Not Applicable-not attempted and the patient did not perform the activity before the current illness, exacerbation or injury. 10-Not Attempted due to Environmental Limitations-(lack of equipment, weather restraints, etc.). 88-Not Attempted due to Medical Conditions or Safety Concerns. Weight Bearing right BKA Exercises Supine Ex: Ankle pumps (LLE), Quad Set, Glut sets, Heel Slides (LLE), Short Arc Quads, Straight leg raise, Hip abd/add Supine Reps: 20 (AAROM with SLR on LLE and hip abd/add) Treatments LE exercise Assessment Current Status: Poor Progress patient very lethargic, seems to be slowly getting weaker PT Short Term Goals Short Term Goals Time Frame: Jan 11, 2020 Roll Left & Right: 6 Sit to lyin Lying to sitting on side of be: 4 Sit to stand: 3 Chair/xdr-zd-ebmbl transfer: 3 PT Triage Clinician Goals Triage Clinician Goals PT Triage Clinician Goals Time Frame: Jan 25, 2020 Roll Left & Right (QC): 6 Sit to Lying (QC): 6 Lying-Sitting on Side/Bed(QC): 6 Sit to Stand (QC): 5 Chair/Ljr-iy-Mycvn Xfer(QC): 5 Toilet Transfer (QC): 5 Car Transfer (QC): 5 Does the Patient Walk: No and Walking Goal NOT indicated Walk 10 feet (QC): 88 Walk 50ft with 2 Turns (QC): 88 Walk 150 ft (QC): 88 Walking 10ft on Uneven Surface: 88 1 Step (curb) (QC): 88 4 Steps (QC): 88 12 Steps (QC): 88 Picking up an Object (QC): 88 Wheel 50 feet with 2 turns (QC: 6 Wheel 150 feet: 6 PT Plan Problem List Problem List: Activity Tolerance, Functional Strength, Safety, Balance, Gait, Transfer, Bed Mobility, ROM Treatment/Plan Treatment Plan: Continue Plan of Care Treatment Plan: Bed Mobility, Education, Functional Activity Farshad, Functional Strength, Group Therapy, Safety, Therapeutic Exercise, Transfers Treatment Duration: Jan 25, 2020 Frequency: At least 5 of 7 days/Wk (IRF) Estimated Hrs Per Day: 1.5 hours per day Patient and/or Family Agrees t: Yes Safety Risks/Education Patient Education: Correct Positioning, Safety Issues Teaching Recipient: Patient Teaching Methods: Demonstration, Discussion Response to Teaching: Reinforcement Needed Time/GCodes Time In: 1340 Time Out: 1410 Total Billed Treatment Time: 30 Total Billed Treatment 1 visit EX 30' BETTY STRONG PT Jan 09, 2020 14:03
--- NOTE | 2020-01-09 16:15 | Diagnostic Imaging Report ---
INDICATION: PICC line placement. COMPARISON: January 02, 2020. TECHNIQUE: Two radiographs of the chest dated January 09, 2020. FINDINGS: Right-sided PICC line is in place. The distal tip is difficult to visualize, though appears to terminate overlying the superior aspect of the superior vena cava. No pneumothorax. Postsurgical changes of median sternotomy are again noted. The cardiac silhouette is enlarged, though stable. Mild central pulmonary vascular congestion is again noted. No new focal pulmonary opacity. No pleural effusion. No pneumothorax. No acute osseous abnormality. IMPRESSION: Interval placement of right-sided PICC line with the distal tip overlying the superior aspect of the superior vena cava without pneumothorax. Persistent cardiomegaly with mild central pulmonary vascular congestion. Dictated by: Dictated on workstation # [id number]
[2020-01-09] MEDS: NS IV 1000 ML 1,000 ML IV SCH ×2 (16:29→20:57)
--- NOTE | 2020-01-09 16:34 | NUR ---
OK TO USE PICC LINE PER SIM ANDERSEN.
[2020-01-09 17:54] VITALS: BP 131/69
[2020-01-09] MEDS: TAMSULOSIN 0.4 MG (FLOMAX) CAP PO SCH (20:55)
[2020-01-09] MEDS: FINASTERIDE (PROSCAR) 5 MG TAB PO SCH (20:56)
[2020-01-09] MEDS: AMITRIPTYLINE 25 MG (ELAVIL) TAB PO SCH (20:56)
--- NOTE | 2020-01-09 21:12 | Consultation - Surgery ---
History of Present Illness History of Present Illness Patient Consulted On(edmar/time) 01/09/20 21:06 Date Seen by Provider: Jan 09, 2020 Time Seen by Provider: 11:29 Reason for Visit: LLE non healing wounds History of Present Illness Consult requested by Dr. Oconnor for left third toe infection. Patient is a 69-year-old male who was admitted to inpatient rehabilitation facility due to generalized weakness and multiple falls. Patient has peripheral vascular disease and has already had a right below-knee amputation. Patient states that he has a wound to the left third toe that he is unsure exactly how long it's been there. He states he been watching it since last and his continued to worsen. Patient has some drainage from it. The toe is starting to turn purplish in color. Having some pain at the site but minimal. Does not want his whole foot cough he says. Patient was noted complaints at this time. Patient's diabetic as well he states. Denies any nausea vomiting fever sweats chills shortness of breath or chest pain at this time. Patient also notes peripheral vascular disease for which she is also status post and possibly have arteriogram and possible stenting. Allergies and Home Medications Allergies Coded Allergies: niacin (Unverified Allergy, Unknown, 06/26/10) rosuvastatin (Verified Allergy, Unknown, 04/20/07) fenofibrate (Unverified Adverse Reaction, Unknown, LIVER PROBLEMS, 01/23/15) Home Medications Allopurinol 100 Mg Tablet, 100 MG PO DAILY, (Reported) Amitriptyline HCl 25 Mg Tablet, 25 MG PO HS, (Reported) Amlodipine Besylate 10 Mg Tablet, 10 MG PO DAILY, (Reported) Ascorbic Acid 500 Mg Tablet, 500 MG PO BID, (Reported) Aspirin 81 Mg Tablet.dr, 81 MG PO DAILY, (Reported) Calcium Carbonate/Vitamin D3 1 Each Tablet, 1 TAB PO DAILY, (Reported) Carvedilol 25 Mg Tablet, 25 MG PO BID, (Reported) Cholecalciferol (Vitamin D3) 50 Mcg Capsule, 50 MCG PO BID, (Reported) Ferrous Sulfate 325 Mg Tablet, 325 MG PO Q48H, (Reported) Finasteride 5 Mg Tablet, 5 MG PO HS, (Reported) Folic Acid 1 Mg Tablet, 1 MG PO DAILY, (Reported) Furosemide 40 Mg Tablet, 40 MG PO BID, (Reported) Gemfibrozil 600 Mg Tablet, 600 MG PO DAILY, (Reported) Hydralazine HCl 100 Mg Tablet, 100 MG PO TID, (Reported) Insulin Aspart 100 Unit/1 Ml Susp, 18 UNIT SQ TIDAC, (Reported) LAST FILLED 09-12-2019 # 3 VIALS/55 DAY SUPPLY Insulin Determir 1,000 Units/10 Ml Soln, 67 UNITS SC BID, (Reported) LAST FILLED 09-25-2019 #3 VIALS/22 DAY SUPPLY Ipratropium/Albuterol Sulfate 3 Ml Ampul.neb, 3 ML IH Q6H PRN for SHORTNESS OF BREATH, (Reported) Magnesium Oxide 400 Mg Tablet, 400 MG PO DAILY, (Reported) Meclizine HCl 25 Mg Tablet, 25 MG PO BID PRN for DIZZINESS, (Reported) [place]-3/Dha/Epa/Fish Oil 1 Each Capsule, 1,000 MG PO BID, (Reported) Ondansetron HCl 8 Mg Tablet, 8 MG PO Q8H PRN for NAUSEA/VOMITING-1ST LINE, (Reported) Potassium Chloride 20 Meq Tablet.er, 20 MEQ PO DAILY, (Reported) Tamsulosin HCl 0.4 Mg Cap, 0.4 MG PO HS, (Reported) Venlafaxine HCl 150 Mg Cap.er.24h, 150 MG PO DAILY, (Reported) Vitamin E Acetate 400 Unit Capsule, 400 UNIT PO DAILY, (Reported) Warfarin Sodium 10 Mg Tablet, 10 MG PO Q48H, (Reported) ALTERNATES BETWEEN 5MG & 10MG Warfarin Sodium 5 Mg Tablet, 5 MG PO Q48H, (Reported) ALTERNATES 10MG & 5MG Patient Home Medication List Home Medication List Reviewed: Yes Past Vxnzvxi-Urbyca-Zshkpq Hx Patient Social History Alcohol Use: Denies Use Recreational Drug Use: Yes Drug of Choice: past hx drug use. Smoking Status: Former Smoker Former Smoker, Quit: Jul 07, 2006 2nd Hand Smoke Exposure: No Recent Foreign Travel: No Contact w/Someone Who Travel: No Recent Infectious Disease Expo: No Recent Hopitalizations: Yes Physical Abuse Screen: No Sexual Abuse: No Immunizations Up To Date Tetanus Booster (TDap): Unknown PED Vaccines UTD: No Date of Pneumonia Vaccine: May 02, 2018 Seasonal Allergies Seasonal Allergies: No Surgeries History of Surgeries: Yes (4 VESSEL CABG 2006; CARDIAC STENTS X 8; LEFT KNEE SCOPE) Surgeries: Cardiac, CABG, Coronary Stent, Orthopedic Respiratory History of Respiratory Disorde: Yes (CPAP) Respiratory Disorders: Sleep Apnea, COPD Cardiovascular History of Cardiac Disorders: Yes Cardiac Disorders: Cardiomyopathy, Chronic Edema/Swelling, Coronary Artery Disease, Deep Vein Thrombosis, Heart Attack, High Cholesterol, Hypertension, Peripheral Vascular, Syncope Neurological History of Neurological Disord: Yes (3 PINCHED NERVES ON NECK ON LEFT SIDE; PERIPHERAL NEUROPATHY) Neurological Disorders: Neuropathy, Vertigo Reproductive System Hx Reproductive Disorders: No Genitourinary History of Genitourinary Disor: No Gastrointestinal History of Gastrointestinal Di: Yes Gastrointestinal Disorders: Gall Bladder Disease Musculoskeletal History of Musculoskeletal Dis: Yes (CHRONIC NECK PAIN ; LEFT KNEE SCOPE) Musculoskeletal Disorders: Degenerate Disk Disease, Arthritis, Chronic Back Pain Endocrine History of Endocrine Disorders: Yes (INSULIN + PILLS; MORBID OBESITY) Endocrine Disorders: Diabetes, Insulin dep HEENT History of HEENT Disorders: No Loss of Vision: Bilateral Cancer History of Cancer: No Psychosocial History of Psychiatric Problem: No Integumentary History of Skin or Integumenta: Yes (CHRONIC DIABETIC FOOT ULCER RIGHT GREAT TOE) Skin/Integumentary Disorders: Recent Skin Changes Blood Transfusions History of Blood Disorders: No Reviewed Nursing Assessment Reviewed/Agree w Nursing PMH: Yes Family Medical History Significant Family History: Heart Disease, Cancer Family Medial History: Cardiovascular disease 19 FATHER, Onset:Unknown FH: breast cancer G8 SISTER, Onset:50's - 60 FH: ovarian cancer 19 MOTHER, Onset:40's - 50 No Family History of: Cancer of mouth Review of Systems-General Constitutional: no symptoms reported; No chills, No fever EENTM: no symptoms reported; No hearing loss, No ear pain Respiratory: no symptoms reported; No cough, No dyspnea on exertion, No short of breath Cardiovascular: No chest pain, No palpitations Gastrointestinal: No abdominal pain, No nausea, No vomiting Genitourinary: no symptoms reported Musculoskeletal: other (Left third toe infection) Skin: change in color (Left foot), rash (Left mid [place]) Psychiatric/Neurological: Denies Anxiety, Denies Depressed All Other Systems Reviewed Negative Unless Noted: Yes (Negative excepted noted.) Physical Exam-General Problems Physical Exam Vital Signs Vital Signs - First Documented 01/04/20 01/04/20 01/04/20 11:51 11:55 18:48 Temp 36.4 Pulse 73 Resp 22 B/P (MAP) 115/69 Pulse Ox 93 O2 Delivery NIV CPAP O2 Flow Rate 4.00 FiO2 36 Capillary Refill : Less Than 3 Seconds General Appearance: no apparent distress, obese HEENT: PERRL/EOMI, normal ENT inspection Neck: non-tender, supple Respiratory: chest non-tender, no respiratory distress, no accessory muscle use Cardiovascular: regular rate, rhythm, no edema Gastrointestinal: non tender, soft, no organomegaly Rectal: deferred Back: no CVA tenderness, no vertebral tenderness Extremities: No calf tenderness; other (Right BKA with slight ulceration at midline, left lower extremity third toe with appearance of somewhat gangrene purplish color, slight erythema surrounding the distal portion of the foot) Neurologic/Psychiatric: alert, normal mood/affect, oriented x 3 Skin: damp ((Total); No jaundice; rash (Left [place]) Lymphatic: no adenopathy Data Review Labs Laboratory Tests 01/09/20 05:35: Glucometer 129H 01/09/20 09:29: Glucometer 142H 01/09/20 13:35: 01/09/20 14:38: Glucometer 182H 01/09/20 19:19: Glucometer 168H Assessment/Plan Assessment/Plan Assessment/Plan Peripheral vascular disease Left third toe wet gangrene/infection Left foot cellulitis Patient has been started on antibiotics. Dr. Terry is been consult to for arteriogram and possible stenting to the left lower extremity, the left third toe is infected and appears to have some component of wet gangrene discussed patient need for amputation and then healing from the inside out. May need further surgical intervention later. Patient understands risk and benefits and wishes to proceed. Patient just ate so will make nothing by mouth after midnight and do tomorrow. Patient is on anticoagulation which does make it more risk for bleeding which he understands. Clinical Quality Measures DVT/VTE Risk/Contraindication: Risk Factor Score Per Nursin RFS Level Per Nursing on Admit: 4+=Very High SHANICE WINCHESTER DO Jan 09, 2020 21:12
[2020-01-10] MEDS: NS IV 1000 ML 1,000 ML IV SCH ×3 (04:42→18:12)
[2020-01-10 06:00] VITALS: BP 127/72
[2020-01-10] MEDS: inSUlin ASPART (NovoLOG) 1 UNIT/0.01 ML (CHARGE PER UNIT) SQ SCH ×3 (06:16→20:08)
[2020-01-10] MEDS: inSUlin ASPART (NovoLOG) 1 UNIT/0.01 ML (CHARGE PER UNIT) SC SCH ×4 (06:16→23:48)
[2020-01-10] MEDS: FUROSEMIDE 40 MG (LASIX) TAB PO SCH ×2 (06:32→20:08)
[2020-01-10] MEDS: DOXYCYCLINE 100 MG (VIBRAMYCIN) TABLET PO SCH ×2 (06:32→17:00)
[2020-01-10] MEDS: KCL 20 MEQ TAB (K-DUR) PO SCH (06:32)
[2020-01-10] MEDS: VENlafaxine XR 75 MG (EFFEXOR XR) CAP PO SCH (06:35)
[2020-01-10 06:49] LABS: ALBUMIN 3.1 GM/DL (3.2-4.5); INR 1.9 (0.8-1.4); PROTHROMBIN TIME PATIENT 22.7 SEC (12.2-14.7)
[2020-01-10 06:50] LABS: POTASSIUM 4.1 MMOL/L (3.6-5.0)
[2020-01-10 06:51] LABS: CALCIUM 8.4 MG/DL (8.5-10.1)
[2020-01-10 06:52] LABS: TOTAL PROTEIN 6.3 GM/DL (6.4-8.2)
[2020-01-10 06:54] LABS: BILIRUBIN,TOTAL 0.4 MG/DL (0.1-1.0)
[2020-01-10 06:56] LABS: CREATININE SERUM 1.88 MG/DL (0.60-1.30)
[2020-01-10] MEDS: RT-ALBUTEROL/IPRATROPIUM 3 ML (DUONEB) VIAL INH SCH ×3 (07:21→20:56)
--- NOTE | 2020-01-10 07:25 | PM&R Progress Note ---
Subjective HPI/CC On Admission Date Seen by Provider: Jan 10, 2020 Time Seen by Provider: 10:00 Subjective/Events-last exam Bowels moved yesterday Toe amputation today, Dr. Champion will complete that IV antibiotics started No therapy participation today due to amputation Will need to go on upstairs to swing bed after angiogram today and amputation Checked meds and labs Checked therapy notes Conferred with real estate agent of Systems General: Fatigue Musculoskeletal: leg pain Objective Exam Vital Signs Vital Signs Date Time Temp Pulse Resp B/P (MAP) Pulse Ox O2 Delivery O2 Flow Rate FiO2 01/10/20 09:00 NIV CPAP 4.00 01/10/20 09:00 68 128/77 (94) 01/10/20 07:21 92 01/10/20 06:00 36.4 16 01/07/20 18:48 36 Capillary Refill : Less Than 3 Seconds General Appearance: No Apparent Distress, WD/WN, Chronically ill, Obese HEENT: PERRL/EOMI, Normal ENT Inspection, Pharynx Normal Neck: Full Range of Motion, Normal Inspection, Non Tender, Supple, Carotid Bruit Respiratory: Chest Non Tender, Lungs Clear, Normal Breath Sounds, No Accessory Muscle Use, No Respiratory Distress Cardiovascular: Regular Rate, Rhythm, No Edema, No Gallop, No JVD, No Murmur, Normal Peripheral Pulses Gastrointestinal: Normal Bowel Sounds, No Organomegaly, No Pulsatile Mass, Non Tender, Soft Back: Normal Inspection, No CVA Tenderness, No Vertebral Tenderness Extremity: Normal Capillary Refill, Normal Inspection, Normal Range of Motion, Non Tender, No Calf Tenderness, No Pedal Edema, Other (right AKA) Neurologic/Psychiatric: Alert, Oriented x3, No Motor/Sensory Deficits, Normal Mood/Affect, resource management specialist II-XII Norm as Tested, Motor Weakness (generalized weakness left leg) Skin: Normal Color, Warm/Dry Lymphatic: No Adenopathy Results/Procedures Lab Laboratory Tests 01/10/20 06:27 Patient resulted labs reviewed. FIM Transfers Therapy Code Descriptions/Definitions Functional [place] Measure: 0=Not Assessed/NA 4=Minimal Assistance 1=Total Assistance 5=Supervision or Setup 2=Maximal Assistance 6=Modified [place] 3=Moderate Assistance 7=Complete IndependenceSCALE: Activities may be completed with or without assistive devices. 8-Yknhdoesuf-mgwyoyk completes the activity by him/herself with no assistance from a helper. 5-Set-up or Clean-up Assistance-helper sets up or cleans up; patient completes activity. [place] assists only prior to or following the activity. 4-Supervision or Touching Assistance-helper provides verbal cues and/or touching/steadying and/or contact guard assistance as patient completes activity. Assistance may be provided throughout the activity or intermittently. 3-Partial/Moderate Assistance-helper does LESS THAN HALF the effort. [place] lifts, holds or supports trunk or limbs, but provides less than half the effort. 2-Substantial/Maximal Assistance-helper does MORE THAN HALF the effort. [place] lifts or holds trunk or limbs and provides more than half the effort. 8-Kwvenwrcg-kcywxf does ALL the effort. Patient does none of the effort to complete the activity. Or, the assistance of 2 or more helpers is required for the patient to complete the activity. If activity was not attempted, code reason: 7-Patient Refused. 9-Not Applicable-not attempted and the patient did not perform the activity before the current illness, exacerbation or injury. 10-Not Attempted due to Environmental Limitations-(lack of equipment, weather restraints, etc.). 88-Not Attempted due to Medical Conditions or Safety Concerns. Roll Left to Right (QC): 2 Sit to Lying (QC): 2 Sit to Stand (QC): 2 Chair/Yob-bf-Fcfwb Xfer(QC): 2 Car Transfer (QC): 1 Gait Training Does the Patient Walk?: No and Walking Goal NOT indicated Walk 10 feet (QC): 88 Walk 50 ft with 2 Turns(QC): 88 Walk 150 ft (QC): 88 Walking 10ft/uneven surface-QC: 88 Wheelchair Training Does the Pt Use a Wheelchair?: Yes Wheel 50 ft with 2 turns (QC): 1 Wheel 150 ft (QC): 1 Type of Wheelchair: Manual Stair Training 1 Step (curb) (QC): 88 4 Steps (QC): 88 12 Steps (QC): 88 Balance Picking up an Object (QC): 88 ADL-Treatment Eating (QC): 5 (set up. OT opened sugar packet and poured into tea. Pt able to tile picker bowl and bring food to his mouth.) Oral Hygiene (QC): 6 Shower/Bathe Self (QC): 2 Upper Body Dressing (QC): 5 Lower Body Dressing (QC): 1 On/Off Footwear (QC): 2 Toileting Hygiene (QC): 1 Toilet Transfer (QC): 1 Assessment/Plan Assessment and Plan Assess & Plan/Chief Complaint Assessment: Debility Falls DM OOC Left foot wound h/o right BKA CAD CABG hx PVD Coumadin treatment Peripheral neuropathy CKD CHF Poor motivation TREE [place] stenosis maintained on Coumadin Plan: IRF protocol Home meds Monitor INR Sugar management Lovenox bridge dc INR with labs tomorrow Catherization today to evaluate left leg IV abx Toe amputation (1) Debility (2) Diabetes mellitus, insulin dependent (IDDM), uncontrolled Status: Acute (3) TREE (obstructive sleep apnea) Status: Chronic (4) Renal insufficiency Status: Acute (5) CAD (coronary artery disease) Status: Chronic (6) Hypoxia Status: Acute GODFREY ZEPEDA DO Jan 10, 2020 07:25
--- NOTE | 2020-01-10 08:56 | Cardiology Progress Note ---
Subjective Date Seen by Provider: Jan 10, 2020 Time Seen by Provider: 08:54 Subjective/Events-last exam Patient in bed, no new complaint. Denies any chest pain. Planning for toe amputation with Dr. Champion today. Objective-Cardiology Exam Last Set of Vital Signs Vital Signs 01/07/20 01/11/20 18:48 05:43 Temp 36.6 Pulse 77 Resp 18 B/P (MAP) 147/79 (101) Pulse Ox 92 O2 Delivery NIV CPAP O2 Flow Rate 4.00 FiO2 36 Capillary Refill : Less Than 3 Seconds I&O Intake and Output 01/11/20 00:00 Intake Total 1060 ml Output Total 1575 ml Balance -515 ml Intake Oral 1060 ml Output Urine Total 1575 ml General: Alert, Oriented X3, Cooperative HEENT: Atraumatic, PERRLA Neck: Supple Lungs: Clear to Auscultation, Normal Air Movement Heart: Regular Rate, Normal S1, Normal S2 Abdomen: Soft, No Tenderness Extremities: Other (trace edema BLE) Neuro: Normal Speech, Cranial Nerves 3-12 NL Psych/Mental Status: Mental Status NL, Mood NL Results Lab Laboratory Tests 01/11/20 06:25 01/11/20 06:40 A/P-Cardiology Admission Diagnosis PAD LLE nonhealing wounds CAD HTN Assessment/Plan Peripheral arterial disease, history of right BKA, had progressive wound that resulted in the amputation done in November 2018, followed by BKA. Now having nonhealing wounds to LLE at anterior felton and toes. Planning to peripheral angiogram, right groin access, timing TBD. Patient to also undergo left 3rd toe amputation with Dr. Champion today Acute on chronic renal insufficiency, continue to monitor renal function. Coronary artery disease, history of multiple interventions, total of 8 stents, had bypass surgery using single vessel after failed multiple attempts for intervention done at [facility] in 2017. 2D echo done October 2019 revealed normal LV size and normal PA pressure, followed by Dr. Ponce Hypertension, continue on current medications and continue to monitor. Hyperlipidemia, intolerant to multiple statin, continue to monitor lipids COPD, obstructive sleep apnea, maintained on C Pap, persistent dyspnea Pulmonary hypertension. Diabetes mellitus, followed and managed by primary care physician Obesity, educated on weight loss Carotid stenosis, totally occluded left ICA, less than 40 percent on the right side. Followed at primary care physician Vertigo, dizziness, chronic. Medical noncompliance. Patient was seen and evaluated with Brenda, examination performed, management plan was discussed, agree with the current scribed note, I made few changes to the note using Italic font Clinical Quality Measures DVT/VTE Risk/Contraindication: Risk Factor Score Per Nursin RFS Level Per Nursing on Admit: 4+=Very High BRENDA HAWLEY Jan 10, 2020 8:56 am BARBIE ALFRED MD Jan 11, 2020 8:53 am
[2020-01-10 09:00] VITALS: BP 128/77
--- NOTE | 2020-01-10 09:13 | Physical Therapy Progress Note ---
Therapy Progress Note Pt refused PT Rx this morning. Pt is NPO for Heart Cath & Toe Amputation today. PT will check back with pt to resume services tomorrow. 1 visit, no Rx rendered JOI DOAN PTA Jan 10, 2020 09:13
--- NOTE | 2020-01-10 09:17 | Occ Therapy Progress Note ---
Therapy Progress Note Pt completing multiple procedures this date. Pt is NPO for procedures. Pt declined any therapies today stating that he has too much "shit" going on. 1, refusal MARIA A KEENE Jan 10, 2020 09:17
[2020-01-10] MEDS: CARVEDILOL 12.5 MG (COREG) TABLET PO SCH (10:24)
[2020-01-10] MEDS: ALLOPURINOL 100 MG (ZYLOPRIM) TAB PO SCH (10:24)
[2020-01-10] MEDS: CEFDINIR 300 MG (OMNICEF) CAP PO SCH (10:24)
[2020-01-10] MEDS: OMEGA 3 (FISH OIL) 1000 MG CAP PO SCH (10:24)
[2020-01-10] MEDS: VITAMIN E 180 MG (400 UNITS) CAP PO SCH (10:24)
[2020-01-10] MEDS: ASPIRIN E.C. 81 MG (ECOTRIN) TAB PO SCH (10:24)
[2020-01-10] MEDS: MAGNESIUM OXIDE (MAG-OX)400 MG TAB PO SCH (10:24)
[2020-01-10] MEDS: ASCORBIC ACID (VIT C) 500 MG TABLET PO SCH ×2 (10:25→18:00)
[2020-01-10] MEDS: VITAMIN D3 25 MCG (1,000 UNITS) TABLET PO SCH (10:25)
[2020-01-10] MEDS: amLODIPine 10 MG (NORVASC) TAB PO SCH (10:25)
[2020-01-10] MEDS: FOLIC ACID 1 MG TAB PO SCH (10:25)
[2020-01-10] MEDS: hydrALAZINE (APRESOLINE) 25 MG TAB PO SCH ×2 (10:25→13:43)
[2020-01-10] MEDS: GEMFIBROZIL 600 MG (LOPID) TAB PO SCH (10:25)
[2020-01-10] MEDS: POVIDONE (BETADINE) 10% SOLN 240 ML BTL TOP SCH ×2 (10:30→23:54)
[2020-01-10] MEDS: MICONAZOLE 2% POWDER (DESENEX AF) 90 GM TOP SCH (10:30)
[2020-01-10] MEDS ORDERED: VANCOMYCIN 1,750 MG/NS 500 ML IVPB IV SCH ×4 (10:30→15:00)
[2020-01-10] MEDS: TRIAMCINOLONE 0.5% CR (KENALOG) 15 GM TUBE TOP SCH (10:31)
[2020-01-10] MEDS: SENNA W/DOCUSATE (SENOKOT S) TABLET PO SCH ×2 (10:45→23:54)
[2020-01-10] MEDS: DOCUSATE SODIUM 100 MG (COLACE) CAP PO SCH ×2 (10:45→23:49)
[2020-01-10] MEDS: polyethylene glycoL POWDER 17 GM (MIRALAX) PACK PO SCH ×2 (10:45→23:52)
[2020-01-10] MEDS ORDERED: PATIENT MAY USE OWN MEDS, ALL PO SCH (18:15)
--- NOTE | 2020-01-10 20:06 | NUR ---
@1143 pt taken off floor to surgery for 3rd toe amputation. pt returned 1310. Per Dr. Bustillos no weightbearing restrictions from this surgery. @1640 pt taken to central lab technician. pt has not returned to floor at this time.
[2020-01-11] MEDS: AMITRIPTYLINE 25 MG (ELAVIL) TAB PO SCH (00:06)
[2020-01-11] MEDS: TAMSULOSIN 0.4 MG (FLOMAX) CAP PO SCH (00:06)
[2020-01-11] MEDS: VITAMIN D3 25 MCG (1,000 UNITS) TABLET PO SCH ×2 (00:07→10:13)
[2020-01-11] MEDS: CEFDINIR 300 MG (OMNICEF) CAP PO SCH ×2 (00:07→10:13)
[2020-01-11] MEDS: hydrALAZINE (APRESOLINE) 25 MG TAB PO SCH ×2 (00:07→10:18)
[2020-01-11] MEDS: FINASTERIDE (PROSCAR) 5 MG TAB PO SCH (00:07)
[2020-01-11] MEDS: OMEGA 3 (FISH OIL) 1000 MG CAP PO SCH ×2 (00:07→10:14)
[2020-01-11] MEDS: CARVEDILOL 12.5 MG (COREG) TABLET PO SCH ×2 (00:08→10:15)
[2020-01-11 00:15] VITALS: BP 130/75
[2020-01-11] MEDS: NS IV 1000 ML 1,000 ML IV SCH ×2 (02:39)
[2020-01-11 05:43] VITALS: BP 147/79
--- NOTE | 2020-01-11 06:34 | Discharge Summary ---
Diagnosis/Chief Complaint Date of Admission Jan 04, 2020 at 11:00 Date of Discharge Discharge Date: Jan 11, 2020 Discharge Diagnosis Assessment: Debility Falls DM OOC Left foot wound h/o right BKA CAD CABG hx PVD Coumadin treatment Peripheral neuropathy CKD CHF Poor motivation TREE [place] stenosis maintained on Coumadin Plan: IRF protocol Home meds Monitor INR Sugar management Lovenox bridge dc INR with labs tomorrow Catherization today to evaluate left leg IV abx Toe amputation (1) Debility (2) Diabetes mellitus, insulin dependent (IDDM), uncontrolled Status: Acute (3) TREE (obstructive sleep apnea) Status: Chronic (4) Renal insufficiency Status: Acute (5) CAD (coronary artery disease) Status: Chronic (6) Hypoxia Status: Acute Discharge Summary Discharge Physical Examination Allergies: Coded Allergies: niacin (Unverified Allergy, Unknown, 06/26/10) rosuvastatin (Verified Allergy, Unknown, 04/20/07) fenofibrate (Unverified Adverse Reaction, Unknown, LIVER PROBLEMS, 01/23/15) Vitals & I&Os Vital Signs Date Time Temp Pulse Resp B/P (MAP) Pulse Ox O2 Delivery O2 Flow Rate FiO2 01/11/20 09:00 NIV CPAP 4.00 01/11/20 05:43 36.6 77 18 147/79 (101) 92 01/07/20 18:48 36 General Appearance: Alert, Oriented X3, Cooperative Respiratory: Clear to Auscultation Cardiovascular: Regular Rate Neuro: Strength at 5/5 X4 Ext Hospital Course Was the Problem List Reviewed?: Yes Hospital Course: Pt had an uneventful hospital course for 8 days when he was moved down to participate in a structured therapy program in order to be able to go back to assisted living. Poor motivation was similar to last admission he had but INR became therapeutic with adjustments with Lovenox Bridge. Glucose was much better controlled on insulin regimen and overall pt did well. Dr. Mcmahan was concerned about the toe that was ultimately amputated by tejal Champion the day before DC. Dr. Terry placed stent in the left leg to help healing. Overall his prognosis is guarded, he will be placed back up to swing bed on 4th floor, continue IV antibiotics and allow him to stabilize on new medication and the new stent and will DC to a fdc at the first of the week. Labs (last 24 hrs) Laboratory Tests 01/04/20 17:03: Glucometer 326H 01/04/20 19:27: Glucometer 345H 01/04/20 23:22: Glucometer 293H 01/05/20 02:53: Glucometer 208H 01/05/20 05:37: White Blood Count 7.5, Red Blood Count 3.75L, Hemoglobin 10.6L, Hematocrit 32L, Mean Corpuscular Volume 85, Mean Corpuscular Hemoglobin 28, Mean Corpuscular Hemoglobin Concent 33, Red Cell Distribution Width 15.1H, Platelet Count 130, Mean Platelet Volume 11.1H, Neutrophils (%) (Auto) 74, Lymphocytes (%) (Auto) 13, Monocytes (%) (Auto) 11, Eosinophils (%) (Auto) 1, Basophils (%) (Auto) 0, Neutrophils # (Auto) 5.6, Lymphocytes # (Auto) 1.0, Monocytes # (Auto) 0.8, Eosinophils # (Auto) 0.1, Basophils # (Auto) 0.0, Prothrombin Time 18.0H, INR Comment 1.4, Sodium Level 133L, Potassium Level 4.1, Chloride Level 102, Carbon Dioxide Level 22, Anion Gap 9, Blood Urea Nitrogen 30H, Creatinine 1.82H, Estimat Glomerular Filtration Rate 37, BUN/Creatinine Ratio 16, Glucose Level 189H, Glucometer 211H, Calcium Level 8.5, Corrected Calcium 9.1, Total Bilirubin 0.5, Aspartate Amino Transf (AST/SGOT) 14, Alanine Aminotransferase (ALT/SGPT) 19, Alkaline Phosphatase 90, Total Protein 6.3L, Albumin 3.2 01/05/20 10:40: Glucometer 305H 01/05/20 14:59: Glucometer 218H 01/05/20 19:46: Glucometer 163H 01/06/20 04:42: Glucometer 148H 01/06/20 10:31: Glucometer 186H 01/06/20 14:53: Glucometer 213H 01/06/20 20:18: Glucometer 174H 01/07/20 04:30: Prothrombin Time 21.4H, INR Comment 1.8H 01/07/20 06:12: Glucometer 132H 01/07/20 10:11: Glucometer 170H 01/07/20 16:01: Glucometer 195H 01/07/20 18:58: Glucometer 226H 01/08/20 05:23: Glucometer 84, White Blood Count 6.8, Red Blood Count 3.52L, Hemoglobin 9.9L, Hematocrit 30L, Mean Corpuscular Volume 86, Mean Corpuscular Hemoglobin 28, Mean Corpuscular Hemoglobin Concent 33, Red Cell Distribution Width 15.1H, Platelet Count 149, Mean Platelet Volume 11.1H, Neutrophils (%) (Auto) 70, Lymphocytes (%) (Auto) 15, Monocytes (%) (Auto) 13H, Eosinophils (%) (Auto) 2, Basophils (%) (Auto) 0, Neutrophils # (Auto) 4.7, Lymphocytes # (Auto) 1.0, Monocytes # (Auto) 0.9, Eosinophils # (Auto) 0.2, Basophils # (Auto) 0.0, Prothrombin Time 24.0H, INR Comment 2.0H, Sodium Level 137, Potassium Level 4.0, Chloride Level 103, Carbon Dioxide Level 22, Anion Gap 12, Blood Urea Nitrogen 35H, Creatinine 1.84H , Estimat Glomerular Filtration Rate 37, BUN/Creatinine Ratio 19, Glucose Level 72, Calcium Level 8.6, Corrected Calcium 9.2, Total Bilirubin 0.4, Aspartate Amino Transf (AST/SGOT) 25, Alanine Aminotransferase (ALT/SGPT) 27, Alkaline Phosphatase 129, Total Protein 6.3L, Albumin 3.2 01/08/20 10:12: Glucometer 181H 01/08/20 14:33: Glucometer 222H 01/08/20 19:39: Glucometer 186H 01/09/20 05:35: Glucometer 129H 01/09/20 09:29: Glucometer 142H 01/09/20 13:35: Coronavirus (COVID-19)(PCR) Negative 01/09/20 14:38: Glucometer 182H 01/09/20 19:19: Glucometer 168H 01/10/20 05:50: Glucometer 113H 01/10/20 06:27: Prothrombin Time 22.7H, INR Comment 1.9H, Sodium Level 137, Potassium Level 4.1, Chloride Level 103, Carbon Dioxide Level 23, Anion Gap 11, Blood Urea Nitrogen 38H, Creatinine 1.88H, Estimat Glomerular Filtration Rate 36, BUN/Creatinine Ratio 20, Glucose Level 107H, Calcium Level 8.4L, Corrected Calcium 9.1, Magnesium Level 2.0, Total Bilirubin 0.4, Aspartate Amino Transf (AST/SGOT) 23, Alanine Aminotransferase (ALT/SGPT) 30, Alkaline Phosphatase 159H, Total Protein 6.3L, Albumin 3.1L 01/10/20 11:25: Glucometer 109 01/11/20 05:22: Glucometer 225H 01/11/20 06:25: White Blood Count 7.1, Red Blood Count 3.38L, Hemoglobin 9.6L, Hematocrit 29L, Mean Corpuscular Volume 86, Mean Corpuscular Hemoglobin 28, Mean Corpuscular Hemoglobin Concent 33, Red Cell Distribution Width 14.9H, Platelet Count 164, Mean Platelet Volume 10.7H 01/11/20 06:40: Sodium Level 137, Potassium Level 4.2, Chloride Level 104, Carbon Dioxide Level 20L, Anion Gap 13, Blood Urea Nitrogen 36H, Creatinine 1.91H, Estimat Glomerular Filtration Rate 35, BUN/Creatinine Ratio 19, Glucose Level 201H, Calcium Level 8.5 01/11/20 09:19: Glucometer 223H Microbiology 01/09/20 MRSA Screen - Final, Complete MRSA not isolated Pending Labs Microbiology Date/Time Source Procedure Growth Status 01/09/20 18:43 Nasal MRSA Screen - Final MRSA not isolated Complete Laboratory Tests 01/04/20 17:03: Glucometer 326 01/04/20 19:27: Glucometer 345 01/04/20 23:22: Glucometer 293 01/05/20 02:53: Glucometer 208 01/05/20 05:37: White Blood Count 7.5, Red Blood Count 3.75, Hemoglobin 10.6, Hematocrit 32, Mean Corpuscular Volume 85, Mean Corpuscular Hemoglobin 28, Mean Corpuscular Hemoglobin Concent 33, Red Cell Distribution Width 15.1, Platelet Count 130, Mean Platelet Volume 11.1, Neutrophils (%) (Auto) 74, Lymphocytes (%) (Auto) 13, Monocytes (%) (Auto) 11, Eosinophils (%) (Auto) 1, Basophils (%) (Auto) 0, Neutrophils # (Auto) 5.6, Lymphocytes # (Auto) 1.0, Monocytes # (Auto) 0.8, Eosinophils # (Auto) 0.1, Basophils # (Auto) 0.0, Prothrombin Time 18.0, INR Comment 1.4, Sodium Level 133, Potassium Level 4.1, Chloride Level 102, Carbon Dioxide Level 22, Anion Gap 9, Blood Urea Nitrogen 30, Creatinine 1.82, Estimat Glomerular Filtration Rate 37, BUN/Creatinine Ratio 16, Glucose Level 189, Glucometer 211, Calcium Level 8.5, Corrected Calcium 9.1, Total Bilirubin 0.5, Aspartate Amino Transf (AST/SGOT) 14, Alanine Aminotransferase (ALT/SGPT) 19, Alkaline Phosphatase 90, Total Protein 6.3, Albumin 3.2 01/05/20 10:40: Glucometer 305 01/05/20 14:59: Glucometer 218 01/05/20 19:46: Glucometer 163 01/06/20 04:42: Glucometer 148 01/06/20 10:31: Glucometer 186 01/06/20 14:53: Glucometer 213 01/06/20 20:18: Glucometer 174 01/07/20 04:30: Prothrombin Time 21.4, INR Comment 1.8 01/07/20 06:12: Glucometer 132 01/07/20 10:11: Glucometer 170 01/07/20 16:01: Glucometer 195 01/07/20 18:58: Glucometer 226 01/08/20 05:23: Glucometer 84, White Blood Count 6.8, Red Blood Count 3.52, Hemoglobin 9.9, Hematocrit 30, Mean Corpuscular Volume 86, Mean Corpuscular Hemoglobin 28, Mean Corpuscular Hemoglobin Concent 33, Red Cell Distribution Width 15.1, Platelet Count 149, Mean Platelet Volume 11.1, Neutrophils (%) (Auto) 70, Lymphocytes (%) (Auto) 15, Monocytes (%) (Auto) 13, Eosinophils (%) (Auto) 2, Basophils (%) (Auto) 0, Neutrophils # (Auto) 4.7, Lymphocytes # (Auto) 1.0, Monocytes # (Auto) 0.9, Eosinophils # (Auto) 0.2, Basophils # (Auto) 0.0, Prothrombin Time 24.0, INR Comment 2.0, Sodium Level 137, Potassium Level 4.0, Chloride Level 103, Carbon Dioxide Level 22, Anion Gap 12, Blood Urea Nitrogen 35, Creatinine 1.84, Estimat Glomerular Filtration Rate 37, BUN/Creatinine Ratio 19, Glucose Level 72, Calcium Level 8.6, Corrected Calcium 9.2, Total Bilirubin 0.4, Aspartate Amino Transf (AST/SGOT) 25, Alanine Aminotransferase (ALT/SGPT) 27, Alkaline Phosphatase 129, Total Protein 6.3, Albumin 3.2 01/08/20 10:12: Glucometer 181 01/08/20 14:33: Glucometer 222 01/08/20 19:39: Glucometer 186 01/09/20 05:35: Glucometer 129 01/09/20 09:29: Glucometer 142 01/09/20 13:35: Coronavirus (COVID-19)(PCR) Negative 01/09/20 14:38: Glucometer 182 01/09/20 19:19: Glucometer 168 01/10/20 05:50: Glucometer 113 01/10/20 06:27: Prothrombin Time 22.7, INR Comment 1.9, Sodium Level 137, Potassium Level 4.1, Chloride Level 103, Carbon Dioxide Level 23, Anion Gap 11, Blood Urea Nitrogen 38, Creatinine 1.88, Estimat Glomerular Filtration Rate 36, BUN/Creatinine Ratio 20, Glucose Level 107, Calcium Level 8.4, Corrected Calcium 9.1, Magnesium Level 2.0, Total Bilirubin 0.4, Aspartate Amino Transf (AST/SGOT) 23, Alanine Aminotransferase (ALT/SGPT) 30, Alkaline Phosphatase 159, Total Protein 6.3, Albumin 3.1 01/10/20 11:25: Glucometer 109 01/11/20 05:22: Glucometer 225 01/11/20 06:25: White Blood Count 7.1, Red Blood Count 3.38, Hemoglobin 9.6, Hematocrit 29, Mean Corpuscular Volume 86, Mean Corpuscular Hemoglobin 28, Mean Corpuscular Hemoglobin Concent 33, Red Cell Distribution Width 14.9, Platelet Count 164, Mean Platelet Volume 10.7 01/11/20 06:40: Sodium Level 137, Potassium Level 4.2, Chloride Level 104, Carbon Dioxide Level 20, Anion Gap 13, Blood Urea Nitrogen 36, Creatinine 1.91, Estimat Glomerular Filtration Rate 35, BUN/Creatinine Ratio 19, Glucose Level 201, Calcium Level 8.5 01/11/20 09:19: Glucometer 223 Discharge Home Medications: Active Scripts Active Reported Warfarin Sodium 5 Mg Tablet 5 Mg PO Q48H ALTERNATES 10MG & 5MG Warfarin Sodium 10 Mg Tablet 10 Mg PO Q48H ALTERNATES BETWEEN 5MG & 10MG Zofran (Ondansetron HCl) 8 Mg Tablet 8 Mg PO Q8H PRN Magnesium (Magnesium Oxide) 400 Mg Tablet 400 Mg PO DAILY Iprat-Albut 0.5-3(2.5) mg/3 ml (Ipratropium/Albuterol Sulfate) 3 Ml Ampul.neb 3 Ml IH Q6H PRN Folic Acid 1 Mg Tablet 1 Mg PO DAILY D3-2000 (Cholecalciferol (Vitamin D3)) 50 Mcg Capsule 50 Mcg PO BID Novolog (Insulin Aspart) 100 Unit/1 Ml Susp 18 Unit SQ TIDAC LAST FILLED 09-12-2019 # 3 VIALS/55 DAY SUPPLY Hydralazine HCl 100 Mg Tablet 100 Mg PO TID Flomax (Tamsulosin HCl) 0.4 Mg Cap 0.4 Mg PO HS Ascorbic Acid 500 Mg Tablet 500 Mg PO BID Potassium Chloride 20 Meq Tablet.er 20 Meq PO DAILY Lasix (Furosemide) 40 Mg Tablet 40 Mg PO BID Ferrous Sulfate 325 Mg Tablet 325 Mg PO Q48H Meclizine HCl 25 Mg Tablet 25 Mg PO BID PRN Amitriptyline HCl 25 Mg Tablet 25 Mg PO HS Finasteride 5 Mg Tablet 5 Mg PO HS Calcium 600 + Vit D 400 Tablet (Calcium Carbonate/Vitamin D3) 1 Each Tablet 1 Tab PO DAILY Aspirin EC (Aspirin) 81 Mg Tablet.dr 81 Mg PO DAILY Fish Oil 1,000 mg Softgel ([place]-3/Dha/Epa/Fish Oil) 1 Each Capsule 1,000 Mg PO BID Levemir (Insulin Determir) 1,000 Units/10 Ml Soln 67 Units SC BID LAST FILLED 09-25-2019 #3 VIALS/22 DAY SUPPLY Venlafaxine HCl ER (Venlafaxine HCl) 150 Mg Cap.er.24h 150 Mg PO DAILY Carvedilol 25 Mg Tablet 25 Mg PO BID Amlodipine Besylate 10 Mg Tablet 10 Mg PO DAILY Allopurinol 100 Mg Tablet 100 Mg PO DAILY Gemfibrozil 600 Mg Tablet 600 Mg PO DAILY Vitamin E (Vitamin E Acetate) 400 Unit Capsule 400 Unit PO DAILY Instructions to patient/family Please see electronic discharge instructions given to patient. Diagnosis/Problems Diagnosis/Problems (1) Debility (2) Diabetes mellitus, insulin dependent (IDDM), uncontrolled Status: Acute (3) TREE (obstructive sleep apnea) Status: Chronic (4) Renal insufficiency Status: Acute (5) CAD (coronary artery disease) Status: Chronic (6) Hypoxia Status: Acute Clinical Quality Measures DVT/VTE Risk/Contraindication: Risk Factor Score Per Nursin RFS Level Per Nursing on Admit: 4+=Very High GODFREY ZEPEDA DO Jan 11, 2020 06:34
[2020-01-11] MEDS: KCL 20 MEQ TAB (K-DUR) PO SCH (06:37)
[2020-01-11] MEDS: FUROSEMIDE 40 MG (LASIX) TAB PO SCH (06:37)
[2020-01-11] MEDS: DOXYCYCLINE 100 MG (VIBRAMYCIN) TABLET PO SCH (06:38)
[2020-01-11] MEDS: VENlafaxine XR 75 MG (EFFEXOR XR) CAP PO SCH (06:38)
[2020-01-11] MEDS: inSUlin ASPART (NovoLOG) 1 UNIT/0.01 ML (CHARGE PER UNIT) SC SCH ×2 (06:38→10:40)
[2020-01-11] MEDS: inSUlin ASPART (NovoLOG) 1 UNIT/0.01 ML (CHARGE PER UNIT) SQ SCH (06:39)
[2020-01-11 06:54] LABS: HEMOGLOBIN 9.6 G/DL (13.3-17.7); MEAN PLATELET VOLUME 10.7 FL (7.4-10.4); RED CELL DISTRIBUTION WIDTH 14.9 % (10.0-14.5); WHITE BLOOD COUNT 7.1 10^3/uL (4.3-11.0)
[2020-01-11 07:32] LABS: CALCIUM 8.5 MG/DL (8.5-10.1); CREATININE SERUM 1.91 MG/DL (0.60-1.30); POTASSIUM 4.2 MMOL/L (3.6-5.0)
--- NOTE | 2020-01-11 08:27 | Cardiology Progress Note ---
Subjective Date Seen by Provider: Jan 11, 2020 Time Seen by Provider: 08:24 Subjective/Events-last exam Patient is in bed, no new complaints. Denies any chest pain or leg pain. Review of Systems General: No Chills, No Night Sweats, No Fatigue, No Malaise, No Appetite, No Other HEENT: No Head Aches, No Visual Changes, No Eye Pain, No Ear Pain, No Dysphasia, No Sinus Congestion, No Post Nasal Drip, No Sore Throat, No Other Pulmonary: No Dyspnea, No Cough, No Pleuritic Chest Pain, No Other Cardiovascular: No: Chest Pain, Palpitations, Orthopnea, Paroxysmal Noc. Dyspnea, Edema, Lt Headedness, Other Objective-Cardiology Exam Last Set of Vital Signs Vital Signs 01/07/20 01/11/20 18:48 05:43 Temp 36.6 Pulse 77 Resp 18 B/P (MAP) 147/79 (101) Pulse Ox 92 O2 Delivery NIV CPAP O2 Flow Rate 4.00 FiO2 36 Capillary Refill : Less Than 3 Seconds I&O Intake and Output 01/11/20 00:00 Intake Total 1060 ml Output Total 1575 ml Balance -515 ml Intake Oral 1060 ml Output Urine Total 1575 ml General: Alert, Oriented X3, Cooperative HEENT: Atraumatic, PERRLA Neck: Supple Lungs: Clear to Auscultation, Normal Air Movement Heart: Regular Rate, Normal S1, Normal S2 Abdomen: Soft, No Tenderness Extremities: Other (trace edema BLE) Neuro: Normal Speech, Cranial Nerves 3-12 NL Psych/Mental Status: Mental Status NL, Mood NL Results Lab Laboratory Tests 01/11/20 06:25 01/11/20 06:40 A/P-Cardiology Admission Diagnosis PAD LLE nonhealing wounds CAD HTN Assessment/Plan Peripheral arterial disease, history of right BKA, had progressive wound that resulted in the amputation done in November 2018, followed by BKA. Now having nonhealing wounds to LLE at anterior felton and toes. Underwent toe amputation yesterday morning. Peripheral angiogram done yesterday revealing severe multisegment stenosis of the left SFA, multiple balloon angioplasty then deployment of Supera 6.5 x 100 in the proximal SFA. The lesions at the mid and distal SFA responded to balloon angioplasty with mild recoiling. Total occlusion of the left anterior tibial artery, patent peroneal and posterior tibial, collateral filling the distal tibial. Mild to moderate disease on the right leg. Atherosclerotic plaques in the abdominal aorta and bifurcation with heavily tortuous iliac arteries. Maximize medical therapy. Continue to monitor, will consider intervention on the anterior tibial artery as a last resort. I will apply nitro patch to LLE Acute on chronic renal insufficiency, continue to monitor renal function. Coronary artery disease, history of multiple interventions, total of 8 stents, had bypass surgery using single vessel after failed multiple attempts for intervention done at [facility] in 2017. 2D echo done October 2019 revealed normal LV size and normal PA pressure, followed by Dr. Ponce Hypertension, continue on current medications and continue to monitor. Hyperlipidemia, intolerant to multiple statin, continue to monitor lipids COPD, obstructive sleep apnea, maintained on C Pap, persistent dyspnea Pulmonary hypertension. Diabetes mellitus, followed and managed by primary care physician Obesity, educated on weight loss Carotid stenosis, totally occluded left ICA, less than 40 percent on the right side. Followed at primary care physician Vertigo, dizziness, chronic. Medical noncompliance. Patient was seen and evaluated with Brenda, examination performed, management plan was discussed, agree with the current scribed note, I made few changes to the note using Italic font Patient was seen at bedside, groin is healing well, no new complaint, stenting to the left SFA with excellent results., Occluded anterior tibial artery distally, collateral filling. We will apply nitroglycerin patch and evaluate his response. Continue with current treatment Clinical Quality Measures DVT/VTE Risk/Contraindication: Risk Factor Score Per Nursin RFS Level Per Nursing on Admit: 4+=Very High BRENDA HAWLEY Jan 11, 2020 8:27 am BARBIE ALFRED MD Jan 11, 2020 8:54 am
[2020-01-11] MEDS: SENNA W/DOCUSATE (SENOKOT S) TABLET PO SCH (09:00)
[2020-01-11] MEDS: DOCUSATE SODIUM 100 MG (COLACE) CAP PO SCH (09:00)
[2020-01-11] MEDS ORDERED: CLOPIDOGREL 75 MG (PLAVIX) TABLET PO SCH (09:00)
[2020-01-11] MEDS: polyethylene glycoL POWDER 17 GM (MIRALAX) PACK PO SCH (09:00)
[2020-01-11] MEDS ORDERED: NITROGLYCERIN 0.2 MG/PATCH (NITRO-DUR) TD SCH (09:00)
[2020-01-11] MEDS ORDERED: ASPIRIN E.C. 81 MG (ECOTRIN) TAB PO SCH (09:00)
[2020-01-11] MEDS: MAGNESIUM OXIDE (MAG-OX)400 MG TAB PO SCH (10:11)
[2020-01-11] MEDS: VITAMIN E 180 MG (400 UNITS) CAP PO SCH (10:13)
[2020-01-11] MEDS: FOLIC ACID 1 MG TAB PO SCH (10:14)
[2020-01-11] MEDS: ALLOPURINOL 100 MG (ZYLOPRIM) TAB PO SCH (10:14)
[2020-01-11] MEDS: GEMFIBROZIL 600 MG (LOPID) TAB PO SCH (10:14)
[2020-01-11] MEDS: ASCORBIC ACID (VIT C) 500 MG TABLET PO SCH (10:14)
[2020-01-11] MEDS: amLODIPine 10 MG (NORVASC) TAB PO SCH (10:14)
[2020-01-11] MEDS: ASPIRIN E.C. 81 MG (ECOTRIN) TAB PO SCH (10:15)
--- NOTE | 2020-01-11 10:20 | NUR ---
Swing Bed Note: Qualifies for swing bed for continued need for IV abx (Osteomyelitis) with continued need for Physical et Occupational therapies. Ultimate goal is to return home at his prior independent level of functioning. If he continues to progress slowly with therapies then halfway home admission will likely be needed before he can return home successfully.
[2020-01-11] MEDS: RT-ALBUTEROL/IPRATROPIUM 3 ML (DUONEB) VIAL INH SCH (10:22)
[2020-01-11] MEDS: POVIDONE (BETADINE) 10% SOLN 240 ML BTL TOP SCH (10:38)
[2020-01-11] MEDS: MICONAZOLE 2% POWDER (DESENEX AF) 90 GM TOP SCH (10:39)
[2020-01-11] MEDS: TRIAMCINOLONE 0.5% CR (KENALOG) 15 GM TUBE TOP SCH (10:39)
--- NOTE | 2020-01-11 10:57 | Occ Therapy Progress Note ---
Therapy Progress Note Pt refuses therapy stating "They are moving me right now upstairs." Pt to be discharged today from ARU to [facility] due to medical issues. 1 refusal MARIA A KEENE Jan 11, 2020 10:57
--- NOTE | 2020-01-11 11:29 | Physical Therapy Progress Note ---
Therapy Progress Note Patient refused physical therapy this morning stating "I'm not moving, I'm going upstairs right now". Patient is going upstairs from rehab to swingbed due to medical issues. Nurse states that he is in fact going right now. BETTY STRONG PT Jan 11, 2020 11:29
--- NOTE | 2020-01-11 11:34 | Therapy Team Discharge Summary ---
Therapy Discharge Summary Discharge Recommendations Date of Discharge Physical Therapy Patient came to rehab with edema, hyperglycemia. Upon evaluation patient performed bed mobility with independence, supine to sit with max assist, sit to supine with min assist, sit <-> stand max assist, transfers max assist, depe ndent for car transfer, dependent with WC mobility. Patient has been performing bed mobility and transfer training, balance and endurance training, functional strengthening, and education. 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 Now, patient performs bed mobility and transfers with max assist, WC mobility with SBA. Patient will be discharged at this time, he is being transferred to swingbed status upstairs due to medical issues. Occupational Therapy Decreased Activ Tolerance, Decreased UE Strength PT Senior Care Goals Senior Care Goals PT Chief Chemist Goals Time Frame: Jan 25, 2020 Roll Left to Right (QC): 6 Sit to Lying (QC): 6 Lying-Sitting on Side/Bed(QC): 6 Sit to Stand (QC): 5 Chair/Ddh-rd-Xekob Xfer(QC): 5 Car Transfer (QC): 5 Does the Patient Walk: No and Walking Goal NOT indicated Walk 10 feet (QC): 88 Walk 10ft-Uneven Surface(QC): 88 Walk 50ft with 2 Turns (QC): 88 Walk 150 ft (QC): 88 Wheel 50 feet with 2 turns (QC: 6 1 Step (curb) (QC): 88 4 Steps (QC): 88 12 Steps (QC): 88 Picking up an Object (QC): 88 OT Senior Care Goals Senior Care Goals Time Frame: Feb 01, 2020 Eating (QC): 6 Oral Hygiene (QC): 6 Shower/Bathe Self (QC): 3 Upper Body Dressing (QC): 5 Lower Body Dressing (QC): 3 On/Off Footwear (QC): 2 Toileting Hygiene (QC): 4 Toilet/Commode Transfer (QC): 5 Additional Goals: 1-Demonstrate ADL Tasks, 2-Verbalize Understanding, 3- ImproveStrength/Farshad 1=Demonstrate adherence to instructed precautions during ADL tasks. 2=Patient will verbalize/demonstrate understanding of assistive devices/modifications for ADL. 3=Patient will improve strength/tolerance for activity to enable patient to perform ADL's. BETTY STRONG PT Jan 11, 2020 11:34
--- NOTE | 2020-01-11 13:19 | NUR ---
CM/SS WEEKLY PATIENT CARE CONFERENCE Patient had toe amputation and today transferred to [facility] Acute Medical/Surgical under Medicare SWB status. Patient was discharged from ARU this date. Clinical Cytogeneticist Scientist spoke with patient's POA/Sister Zofia Pulido by phone to insure she knew he had transferred to [facility] as noted above.
--- NOTE | 2020-01-12 11:21 | Therapy Team Discharge Summary ---
Therapy Discharge Summary Discharge Recommendations Date of Discharge Jan 11, 2020 at 11:27 Occupational Therapy Patient admitted to ARU with edema, hyperglycemia. At eval, pt was set up for feeding, IND oral hygiene, max assist shower, set up upper body dressing, total assist lower body dressing, total assist footwear, & total assist toileting/toilet transfer. OT txs focused on increasing independence and safety with ADLs and functional mobility, increasing BUE strength and functional endurance, and safety education. Pt met LTGs of IND oral hygiene, set up upper body dressing, & Max assist footwear. Pt did not meet other LTGs. At discharge, pt was set up feeding, IND oral hygiene, Max A shower, set up upper body dressing, Total assist lower body dressing, max A footwear, and total assist toileting/toilet transfers. Pt will be discharging from OT services at this time due to being transferred to swing bed status secondary to medical issues, di scharging from ARU. Decreased Activ Tolerance, Decreased UE Strength, Impaired Funct Balance, Impaired I ADL's, Impaired Self-Care Skills PT Shelter Goals Drill Sharpener Goals PT Drill Sharpener Goals Time Frame: Jan 25, 2020 Roll Left to Right (QC): 6 Sit to Lying (QC): 6 Lying-Sitting on Side/Bed(QC): 6 Sit to Stand (QC): 5 Chair/Bro-bc-Oruic Xfer(QC): 5 Car Transfer (QC): 5 Does the Patient Walk: No and Walking Goal NOT indicated Walk 10 feet (QC): 88 Walk 10ft-Uneven Surface(QC): 88 Walk 50ft with 2 Turns (QC): 88 Walk 150 ft (QC): 88 Wheel 50 feet with 2 turns (QC: 6 1 Step (curb) (QC): 88 4 Steps (QC): 88 12 Steps (QC): 88 Picking up an Object (QC): 88 OT Shelter Goals Drill Sharpener Goals Time Frame: Feb 01, 2020 Eating (QC): 6 (not met, set up ) Oral Hygiene (QC): 6 (met) Shower/Bathe Self (QC): 3 (not met, max assist) Upper Body Dressing (QC): 5 (met) Lower Body Dressing (QC): 3 (not met, total assist) On/Off Footwear (QC): 2 (met) Toileting Hygiene (QC): 4 (not met) Toilet/Commode Transfer (QC): 5 (not met) Additional Goals: 1-Demonstrate ADL Tasks, 2-Verbalize Understanding, 3- ImproveStrength/Farshad 1=Demonstrate adherence to instructed precautions during ADL tasks. 2=Patient will verbalize/demonstrate understanding of assistive devices/modifications for ADL. 3=Patient will improve strength/tolerance for activity to enable patient to perform ADL's. JESUS SUTTON OT Jan 12, 2020 11:21
[2020-01-12] MEDS ORDERED: TROUGH ORDER-PHARMACY XX NR (14:00)
== END 2020-01-11 11:27 | disposition swing bed (61) | DRG 948 ==
PROVIDERS: ADMIT Internal Medicine; ATTEND Internal Medicine
DX: R53.1 Weakness (principal); R53.81 Other malaise; R29.6 Repeated falls; E11.621 Type 2 diabetes mellitus with foot ulcer; I70.262 Atherosclerosis of native arteries of extremities with gangrene, left leg; L97.529 Non-pressure chronic ulcer of other part of left foot with unspecified severity; I13.0 Hypertensive heart and chronic kidney disease with heart failure and stage 1 through stage 4 chronic kidney disease, or unspecified chronic kidney disease; I42.9 Cardiomyopathy, unspecified; E11.65 Type 2 diabetes mellitus with hyperglycemia; E11.42 Type 2 diabetes mellitus with diabetic polyneuropathy; I66.8 Occlusion and stenosis of other cerebral arteries; I65.23 Occlusion and stenosis of bilateral carotid arteries; N18.9 Chronic kidney disease, unspecified; I50.9 Heart failure, unspecified; I25.10 Atherosclerotic heart disease of native coronary artery without angina pectoris; G47.33 Obstructive sleep apnea (adult) (pediatric); I27.20 Pulmonary hypertension, unspecified; I70.0 Atherosclerosis of aorta; E66.9 Obesity, unspecified; Z68.42 Body mass index [BMI] 45.0-49.9, adult; E78.5 Hyperlipidemia, unspecified; N28.9 Disorder of kidney and ureter, unspecified; I25.2 Old myocardial infarction; Z79.4 Long term (current) use of insulin; Z87.891 Personal history of nicotine dependence; Z91.19 Patient's noncompliance with other medical treatment and regimen; Z95.1 Presence of aortocoronary bypass graft; Z95.5 Presence of coronary angioplasty implant and graft; Z86.718 Personal history of other venous thrombosis and embolism; Z79.01 Long term (current) use of anticoagulants
CPT/HCPCS: 36415; 36569; 71045; 76937; 80048; 80053; 82962; 83735; 85025; 85027; 85610; 87081; 87635; 94640; 94760

== ENCOUNTER 2020-01-10 08:56 | Day surgery (SDC) | payer MEDICARE ==
[2020-01-10] VITALS (10 sets, daily range): BP systolic 110–129; BP diastolic 66–75
[~2020-01-10 08:56] MED LIST changes: -BUP/EPI 0.5% 1:200,000 (SENSORCAINE) 30 ML VIAL ONE; -KETAMINE/NaCl 50 MG/5 ML SYRINGE (ED ONLY) ONE; -MIDAZOLAM 2 MG/2 ML (VERSED) VIAL ONE; -ONDANSETRON 4 MG/2 ML (SDV) Z0FRAN IVP PRN; -PROPOFOL INJECTION 50 ML IV ONE; -morphine INJ 10 MG/ML 1ML (SYR OR VIAL) IVP ONE
--- OUTSIDE RECORDS SUMMARY | 2020-01-10 11:15 | XMS REPORT | Clinical Summary ---
Author Author [facility] Organization [facility] Address Unknown Phone Unavailable Care Team Providers Care It Help Desk Associate Name Role Phone Kiel Mayer MD Unavailable Unavailable Chayo Strong APRN Unavailable Unavailable John Dumont MD Unavailable Valerie Cole PA-C Unavailable Irene Fontenot Unavailable Unavailable Carol Alford Unavailable Tyler Bello MD PCP Source Comments Some departments are not documenting in the electronic medical record. If you d o not see the information that you expected, contact Release of Information in [facility] Health Information Management department at [phone] for further assistan ce in locating additional records.[facility] Allergies Comments Active Allergy Reactions Severity [...]
--- OUTSIDE RECORDS SUMMARY | 2020-01-10 11:15 | XMS REPORT ---
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 [facility] ([id number]) Neutrophils 4.7 10*3/uL (NEG) 1.7 - 7 10*3/uL 01-08-2020 PE NDING LOCATION (Bld) [#/Vol] 01:-0400 [facility] ([id number]) Neutrophils/100 70 % (NEG) 40 - 60 % 01-08-2020 PENDIN G LOCATION WBC (Bld) 01:0400 [facility] ([id number]) Platelet mean 11.1 (H) 01-08-2020 PENDING LOCA TION volume (Bld) 01:-0400 [facility] ([id number]) [Entitic vol] Platelets (Bld) 149 10*3/uL (NEG) 150 - 450 01-08-2020 PEND ING LOCATION [#/Vol] 10*3/uL 01:0400 [facility] ([id number]) Potassium 4.0 mmol/L (NEG) 3.7 - 5.2 mmol/L 01-08-2020 PEND ING LOCATION [Moles/Vol] 01: [facility] ([id number]) Protein 6.3 g/dL (L) 6.4 - 8.3 g/dL 01-08-2020 PENDING LOCATION [Mass/Vol] 01: [facility] ([id number]) RBC (Bld) 3.52 10*6/uL (L) 4.2 - 6.1 01-08-2020 PENDING L OCATION [#/Vol] 10*6/uL 01: [facility] ([id number]) Sodium 137 mmol/L (NEG) 135 - 145 mmol/L 01-08-2020 PEND ING LOCATION [Moles/Vol] 01: [facility] ([id number]) WBC (Bld) 6.8 10*3/uL (NEG) 3.5 - 10.5 01-08-2020 PENDING L OCATION [#/Vol] 10*3/uL 01: [facility] ([id number]) not yet categorized on 2020-01-07 no information NAME: (no code) PENDING LOCATIO [facility] ([id number]) D ~MED REC#: [id number] ~ ~PHYSICIAN: GODFREY ZEPEDA DO ~Subjective ~HPI/CC On Admission ~Date Seen by Provider: Jan 07, 2020 ~Time Seen by Provider: 11:45 ~Subjective/Even ts-last exam ~Patient doing well, sleeps most of the time and told nurse he will sleep all day today since no ~therapy ~INR 1.8 today so maintained on increased Coumadin dose and maintained on Lovenox 1mg/kg coverage ~until therapeutic and will check level Wednesday ~PCP placed him on Coumadin due to [place] stenosis 1 year ago ~Large BM today finally ~No pain reported ~Limited motivation ~CPAP every nap and at night ~Checked meds and labs ~Checked therapy notes ~Conferred with RN ~ ~Review of Systems ~General: Fatigue ~Neurological: Weakness, Incoordination ~ ~Objective ~Exam ~Vital Signs ~ ~Vital Signs ~ ~ ~ Date Time Temp Pulse Resp B/P (MAP) Pulse Ox O2 Delivery O2 Flow Rate FiO2 ~ ~01/07/20 09:17 NIV CPAP ~ ~01/07/20 06:30 37.2 72 20 137/73 (94) 92 ~ ~01/06/20 21:00 4.00 ~ ~01/06/20 19:22 36 ~ ~Capillary Refill : Less Than 3 Seconds ~General Appearance: No Apparent Distress, WD/WN, Chronically ill, Obese ~HEENT: PERRL/EOMI, Normal ENT Inspection, Pharynx Normal ~Neck: Full Range of Motion, Normal Inspection, Non Tender, Supple, Carotid Bruit ~Respiratory: Chest Non Tender, Lungs Clear, Normal Breath Sounds, No Accessory Muscle Use, No ~Respiratory Distress ~Cardiovascular: Regular Rate, Rhythm, No Edema, No Gallop, No JVD, No Murmur, Normal Peripheral ~Pulses ~Gastrointestina l: Normal Bowel Sounds, No Organomegaly, No Pulsatile Mass, Non Tender, Soft ~Back: Normal Inspection, No CVA Tenderness, No Vertebral Tenderness ~Extremity: Normal Capillary Refill, Normal Inspection, Normal Range of Motion, Non Tender, No Calf ~Tenderness, No Pedal Edema, Other (right AKA) ~Neurologic/Psyc hiatric: Alert, Oriented x3, No Motor/Sensory Deficits, Normal Mood/Affect, 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 ~ ~FIM ~Transfers ~Therapy Code Descriptions/Def initions ~ ~Functional [place] Measure: ~0=Not Assessed/NA 4=Minimal Assistance ~1=Total Assistance 5=Supervision or Setup ~2=Maximal Assistance 6=Modified [place] ~3=Moderate Assistance 7=Complete IndependenceSCAL E: Activities may be completed with or without ~assistive devices. ~ ~7-Yakqnshcrm-uw tient completes the activity by him/herself with no assistance from a helper. ~5-Set-up or Clean-up Assistance-helpe r sets up or cleans up; patient completes activity. [place] ~assists only prior to or ~ following the activity. ~4-Supervision or Touching Assistance-helpe r provides verbal cues and/or touching/steadyi ng and/or ~contact guard assistance as patient completes activity. Assistance may be provided ~ throughout the activity or intermittently. ~3-Partial/Moder ate Assistance-helpe r does LESS THAN HALF the effort. [place] lifts, holds or supports~trunk or limbs, but provides less than half the effort. ~2-Substantial/M aximal Assistance-helpe r does MORE THAN HALF the effort. [place] lifts or holds trunk ~or limbs and provides more than half the effort. ~0-Fncmjupps-diy per does ALL the effort. Patient does none of the effort to complete the activity. ~Or, the assistance of 2 or more helpers is required for the patient to complete the ~ activity. ~If activity was not attempted, code reason: ~7-Patient Refused. ~9-Not Applicable-not attempted and the patient did not perform the activity before the current ~illness, exacerbation or injury. ~10-Not Attempted due to Environmental Limitations-([place] of equipment, weather restraints, etc.). ~88-Not Attempted due to Medical Conditions or Safety Concerns. ~Roll Left to Right (QC): 6 ~Sit to Lying (QC): 4 ~Sit to Stand (QC): 2 ~Chair/Bed-to- air Xfer(QC): 2 ~Car Transfer (QC): 1 ~ ~Gait Training ~Does the Patient Walk?: No and Walking Goal NOT indicated ~Walk 10 feet (QC): 88 ~Walk 50 ft with 2 Turns(QC): 88 ~Walk 150 ft (QC): 88 ~Walking 10ft/uneven surface-QC: 88 ~ ~Wheelchair Training ~Does the Pt Use a Wheelchair?: Yes ~Wheel 50 ft with 2 turns (QC): 1 ~Wheel 150 ft (QC): 1 ~Type of Wheelchair: Manual ~ ~Stair Training ~1 Step (curb) (QC): 88 ~4 Steps (QC): 88 ~12 Steps (QC): 88 ~ ~Balance ~Picking up an Object (QC): 88 ~ ~ADL-Treatment ~Eating (QC): 5 (set up. OT opened sugar packet and poured into tea. Pt able to seed cone picker bowl and ~bring food to his mouth.) ~Oral Hygiene (QC): 6 ~Shower/Bathe Self (QC): 2 ~Upper Body Dressing (QC): 5 ~Lower Body Dressing (QC): 1 ~On/Off Footwear (QC): 2 ~Toileting Hygiene (QC): 1 ~Toilet Transfer (QC): 1 ~ ~Assessment/Plan ~Assessment and Plan ~Assess Plan/Chief Complaint ~Assessment: ~Debility ~Falls ~DM OOC ~Left foot wound ~h/o right BKA ~CAD ~CABG hx ~PVD ~Coumadin treatment ~Peripheral neuropathy ~CKD ~CHF ~Poor motivation ~TREE ~[place] stenosis maintained on Coumadin ~ ~Plan: ~IRF protocol ~Home meds ~Monitor INR ~Sugar management ~Lovenox bridge ~INR Wednesday ~ ~(1) Debility ~(2) Diabetes mellitus, insulin dependent (IDDM), uncontrolled ~Status: Acute ~(3) TREE (obstructive sleep apnea) ~Status: Chronic ~(4) Renal insufficiency ~Status: Acute ~(5) CAD (coronary artery disease) ~Status: Chronic ~(6) Hypoxia ~Status: Acute ~ ~ ~ ~GODFREY ZEPEDA DO Jan 07, 2020 11:48 ~ ~ ~<Created by GODFREY ZEPEDA DO> ~<Electronically signed by GODFREY ZEPEDA DO> 01/07/20 1458 ~ ~ laboratory on 2020-01-07 Glucose 132 mg/dL (H) 60 - 125 mg/dL 01-07-2020 PENDING LOCATION [Mass/Vol] 02:12-0400 [facility] ([id number]) Glucose 170 mg/dL (H) 60 - 125 mg/dL 01-07-2020 PENDING LOCATION [Mass/Vol] 06:11-0400 [facility] ([id number]) Glucose 195 mg/dL (H) 60 - 125 mg/dL 01-07-2020 PENDING LOCATION [Mass/Vol] 12:01-0400 [facility] ([id number]) Glucose 226 mg/dL (H) 60 - 125 mg/dL 01-07-2020 PENDING LOCATION [Mass/Vol] 14:58-0400 [facility] ([id number]) INR Coag 1.8 (H) 01-07-2020 PENDING LOCATI ON (Platelet poor 00:30-0400 [facility] ([id number]) plasma or blood) [Relative time] PT Coag (PPP) 21.4 s (H) 9.4 - 12.5 s 01-07-2020 PENDI NG LOCATION [Time] 00:30-0400 [facility] ([id number]) not yet categorized on 2020-01-06 no information NAME: (no code) PENDING [facility] ([id number]) D ~MED REC#: [id number] ~ ~PHYSICIAN: PETEY WHITE RESPIRATORY CARE PROGRAM DIRECTOR ~PT Daily Note-Current ~Subjective ~Pt in bed resting, upon arrival. Pt agrees to PT. ~ ~Pain ~ ~ Numeric Pain Scale: 0-No Pain ~ Location: No Pain Reported ~ ~Mental Status ~Patient Orientation: Person, Place, Time, Situation ~ ~Transfers ~SCALE: Activities may be completed with or without assistive devices. ~ ~6-Fkkyehbrcg-yf tient completes the activity by him/herself with no assistance from a helper. ~5-Set-up or Clean-up Assistance-helpe r sets up or cleans up; patient completes activity. [place] ~assists only prior to or ~ following the activity. ~4-Supervision or Touching Assistance-helpe r provides verbal cues and/or touching/steadyi ng and/or ~contact guard assistance as patient completes activity. Assistance may be provided ~ throughout the activity or intermittently. ~3-Partial/Moder ate Assistance-helpe r does LESS THAN HALF the effort. [place] lifts, holds or supports~trunk or limbs, but provides less than half the effort. ~2-Substantial/M aximal Assistance-helpe r does MORE THAN HALF the effort. [place] lifts or holds trunk ~or limbs and provides more than half the effort. ~2-Ejflhhdbm-npr per does ALL the effort. Patient does none of the effort to complete the activity. ~Or, the assistance of 2 or more helpers is required for the patient to complete the ~ activity. ~If activity was not attempted, code reason: ~7-Patient Refused. ~9-Not Applicable-not attempted and the patient did not perform the activity before the current ~illness, exacerbation or injury. ~10-Not Attempted due to Environmental Limitations-([place] of equipment, weather restraints, etc.). ~88-Not Attempted due to Medical Conditions or Safety Concerns. ~ ~Weight Bearing ~ ~right BKA ~ ~Exercises ~Supine Ex: Ankle pumps (LLE only), Quad Set, Heel Slides (L LE only ), Short Arc Quads (L LE only),~Straight leg raise (PROM on L LE d/t inability to complete on own), Hip abd/add ~Supine Reps: 20 ~ ~Treatments ~Supine ex completed. Pt requires PROM for SLR on L LE. Pt remains in bed w/ call light and bed side ~table w/in reach and all needs met at end of tx. ~ ~Assessment ~Current Status: Fair Progress ~Pt c/o during ex of not "having the strength"; did not c/o pain though. Pt encouraged to do as much ~as possible. Nursing in during tx to give meds. ~ ~PT Short Term Goals ~Short Term Goals ~Time Frame: Jan 11, 2020 ~Roll Left Right: 6 ~Sit to lyin ~Lying to sitting on side of be: 4 ~Sit to stand: 3 ~Chair/bed-to-ch air transfer: 3 ~ ~PT Longterm Goals ~Tool Maintenance Technician Goals ~PT Longterm Goals Time Frame: Jan 25, 2020 ~Roll Left Right (QC): 6 ~Sit to Lying (QC): 6 ~Lying-Sitting on Side/Bed(QC): 6 ~Sit to Stand (QC): 5 ~Chair/Bed-to-Ch air Xfer(QC): 5 ~Toilet Transfer (QC): 5 ~Car Transfer (QC): 5 ~Does the Patient Walk: No and Walking Goal NOT indicated ~Walk 10 feet (QC): 88 ~Walk 50ft with 2 Turns (QC): 88 ~Walk 150 ft (QC): 88 ~Walking 10ft on Uneven Surface: 88 ~1 Step (curb) (QC): 88 ~4 Steps (QC): 88 ~12 Steps (QC): 88 ~Picking up an Object (QC): 88 ~Wheel 50 feet with 2 turns (QC: 6 ~Wheel 150 feet: 6 ~ ~PT Plan ~Problem List ~Problem List: Activity Tolerance, Functional Strength, Safety, Bed Mobility, ROM ~ ~Treatment/Plan ~Treatment Plan: Continue Plan of Care ~Treatment Plan: Bed Mobility, Education, Functional Activity Farshad, Functional Strength, Group ~Therapy, Safety, Therapeutic Exercise, Transfers ~Treatment Duration: Jan 25, 2020 ~Frequency: At least 5 of 7 days/Wk (IRF) ~Estimated Hrs Per Day: 1.5 hours per day ~Patient and/or Family Agrees t: Yes ~ ~Safety Risks/Education ~Patient Education: Correct Positioning, Safety Issues ~Teaching Recipient: Patient ~Teaching Methods: Discussion ~Response to Teaching: Verbalize Understanding ~ ~Time/GCodes ~Time In: 1034 ~Time Out: 1049 ~Total Billed Treatment Time: 15 ~Total Billed Treatment ~1, EX (15m) ~ ~ ~ ~ADRIANA WHITE PTA Jan 06, 2020 10:55 ~ ~ ~<Created by PETEY WHITE PTA> ~<Electronically signed by PETEY WHITE PTA> 01/06/20 1154 ~ ~ no information NAME: (no code) PENDING [facility] ([id number]) D ~MED REC#: [id number] ~ ~PHYSICIAN: GODFREY ZEPEDA DO ~Subjective ~HPI/CC On Admission ~Date Seen by Provider: Jan 06, 2020 ~Time Seen by Provider: 13:00 ~Subjective/Even ts-last exam ~Patient doing well, sleeps most of the time ~Creatinine is 1.8 on labs yesterday but this is chronic and no oliguria noted ~INR 1.4 yesterday so increased Coumadin and started Lovenox 1mg/kg coverage until therapeutic and ~will check level tomorrow ~PCP placed him on Coumadin due to [place] stenosis 1 year ago ~Small BM willing to take laxatives until evacuated ~No pain reported ~Limited motivation ~CPAP every nap and at night ~Checked meds and labs ~Checked therapy notes ~Conferred with RN ~ ~Review of Systems ~General: Fatigue ~Neurological: Weakness ~ ~Objective ~Exam ~Vital Signs ~ ~Vital Signs ~ ~ ~ Date Time Temp Pulse Resp B/P (MAP) Pulse Ox O2 Delivery O2 Flow Rate FiO2 ~ ~01/06/20 07:07 4.00 ~ ~01/06/20 05:03 37.0 68 16 119/76 (90) 92 NIV CPAP ~ ~01/04/20 18:48 36 ~ ~Capillary Refill : Less Than 3 Seconds ~General Appearance: No Apparent Distress, WD/WN, Chronically ill, Obese ~HEENT: PERRL/EOMI, Normal ENT Inspection, Pharynx Normal ~Neck: Full Range of Motion, Normal Inspection, Non Tender, Supple, Carotid Bruit ~Respiratory: Chest Non Tender, Lungs Clear, Normal Breath Sounds, No Accessory Muscle Use, No ~Respiratory Distress ~Cardiovascular: Regular Rate, Rhythm, No Edema, No Gallop, No JVD, No Murmur, Normal Peripheral ~Pulses ~Gastrointestina l: Normal Bowel Sounds, No Organomegaly, No Pulsatile Mass, Non Tender, Soft ~Back: Normal Inspection, No CVA Tenderness, No Vertebral Tenderness ~Extremity: Normal Capillary Refill, Normal Inspection, Normal Range of Motion, Non Tender, No Calf ~Tenderness, No Pedal Edema, Other (right AKA) ~Neurologic/Psyc hiatric: Alert, Oriented x3, No Motor/Sensory Deficits, Normal Mood/Affect, 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 ~ ~FIM ~Transfers ~Therapy Code Descriptions/Def initions ~ ~Functional [place] Measure: ~0=Not Assessed/NA 4=Minimal Assistance ~1=Total Assistance 5=Supervision or Setup ~2=Maximal Assistance 6=Modified [place] ~3=Moderate Assistance 7=Complete IndependenceSCAL E: Activities may be completed with or without ~assistive devices. ~ ~0-Awspjrwtvc-rv tient completes the activity by him/herself with no assistance from a helper. ~5-Set-up or Clean-up Assistance-helpe r sets up or cleans up; patient completes activity. [place] ~assists only prior to or ~ following the activity. ~4-Supervision or Touching Assistance-helpe r provides verbal cues and/or touching/steadyi ng and/or ~contact guard assistance as patient completes activity. Assistance may be provided ~ throughout the activity or intermittently. ~3-Partial/Moder ate Assistance-helpe r does LESS THAN HALF the effort. [place] lifts, holds or supports~trunk or limbs, but provides less than half the effort. ~2-Substantial/M aximal Assistance-helpe r does MORE THAN HALF the effort. [place] lifts or holds trunk ~or limbs and provides more than half the effort. ~0-Woqwckmme-zif per does ALL the effort. Patient does none of the effort to complete the activity. ~Or, the assistance of 2 or more helpers is required for the patient to complete the ~ activity. ~If activity was not attempted, code reason: ~7-Patient Refused. ~9-Not Applicable-not attempted and the patient did not perform the activity before the current ~illness, exacerbation or injury. ~10-Not Attempted due to Environmental Limitations-([place] of equipment, weather restraints, etc.). ~88-Not Attempted due to Medical Conditions or Safety Concerns. ~Roll Left to Right (QC): 6 ~Sit to Lying (QC): 4 ~Sit to Stand (QC): 2 ~Chair/Bed-to- air Xfer(QC): 2 ~Car Transfer (QC): 1 ~ ~Gait Training ~Does the Patient Walk?: No and Walking Goal NOT indicated ~Walk 10 feet (QC): 88 ~Walk 50 ft with 2 Turns(QC): 88 ~Walk 150 ft (QC): 88 ~Walking 10ft/uneven surface-QC: 88 ~ ~Wheelchair Training ~Does the Pt Use a Wheelchair?: Yes ~Wheel 50 ft with 2 turns (QC): 1 ~Wheel 150 ft (QC): 1 ~Type of Wheelchair: Manual ~ ~Stair Training ~1 Step (curb) (QC): 88 ~4 Steps (QC): 88 ~12 Steps (QC): 88 ~ ~Balance ~Picking up an Object (QC): 88 ~ ~ADL-Treatment ~Eating (QC): 5 (set up. OT opened sugar packet and poured into tea. Pt able to seed cone picker bowl and ~bring food to his mouth.) ~Oral Hygiene (QC): 6 ~Shower/Bathe Self (QC): 2 ~Upper Body Dressing (QC): 5 ~Lower Body Dressing (QC): 1 ~On/Off Footwear (QC): 2 ~Toileting Hygiene (QC): 1 ~Toilet Transfer (QC): 1 ~ ~Assessment/Plan ~Assessment and Plan ~Assess Plan/Chief Complaint ~Assessment: ~Debility ~Falls ~DM OOC ~Left foot wound ~h/o right BKA ~CAD ~CABG hx ~PVD ~Coumadin treatment ~Peripheral neuropathy ~CKD ~CHF ~Poor motivation ~TREE ~[place] stenosis maintained on Coumadin ~ ~Plan: ~IRF protocol ~Home meds ~Monitor INR ~Sugar management ~Lovenox bridge ~INR Wednesday ~ ~(1) Debility ~(2) Diabetes mellitus, insulin dependent (IDDM), uncontrolled ~Status: Acute ~(3) TREE (obstructive sleep apnea) ~Status: Chronic ~(4) Renal insufficiency ~Status: Acute ~(5) CAD (coronary artery disease) ~Status: Chronic ~(6) Hypoxia ~Status: Acute ~ ~ ~ ~GODFREY ZEPEDA DO Jan 06, 2020 07:56 ~ ~ ~<Created by GODFREY ZEPEDA DO> ~<Electronically signed by GODFREY ZEPEDA DO> 01/06/20 1508 ~ ~ laboratory on 2020-01-06 Glucose 148 mg/dL (H) 60 - 125 mg/dL 01-06-2020 PENDING LOCATION [Mass/Vol] 00:42-0400 [facility] ([id number]) Glucose 186 mg/dL (H) 60 - 125 mg/dL 01-06-2020 PENDING LOCATION [Mass/Vol] 06:31-0400 [facility] ([id number]) Glucose 213 mg/dL (H) 60 - 125 mg/dL 01-06-2020 PENDING LOCATION [Mass/Vol] 10:53-0400 [facility] ([id number]) Glucose 174 mg/dL (H) 60 - 125 mg/dL 01-06-2020 PENDING LOCATION [Mass/Vol] 16:18-0400 [facility] ([id number]) not yet categorized on 2020-01-05 no information NAME: (no code) PENDING LOCATIO N [facility] ([id number]) D ~MED REC#: [id number] ~ ~PHYSICIAN: MARIA A KEENE ~OT Current Status-Daily Note ~Subjective ~Pt alert, lying in bed. Pt agrees to therapy. Pt c/o dizziness throughout therapy, reported to ~nrsg. ~ ~Mental Status/Objective ~Patient Orientation: Person, Place, Time, Situation ~Attachments: IV ~ ~ADL-Treatment ~OT/PT co-treat ([id number]), skills of 2 clinicians required due to medical complexity, unsafe ~mobility and low activity tolerance. PT working in transfers, mobility and L LE strengthening. OT ~working on functional transfers, ADLs, UE strengthening. Pt completed sit to stand with mod A x1 ~then was able to sit EOB (extended time) with SBA due to dizziness. Using FWW, pt able to complete ~SPT with PT assisting transfer and OT assisting with positioning equipment and B UE's. Transported ~pt to large shower room with rolling shower chair with cutout. Pt stated what homecare worker ~completes during shower and dressing, cleansing back, buttocks and markel area then completes all ~lower body dressing for pt. Pt stated that he would stand up with grabbar for worker to hike pants ~over hips. During shower, pt able to wash all areas except buttocks and around that area. Pt given~long handle sponge to cleanse L LE. Pt placed L foot on ground and leaned toward R side to allow ~room for assistance to cleanse and dry. Pt urinated in shower without asking for urinal. Pt ~attempted to have BM, bucket placed under shower chair. Per clinical judgement, pt is dependent for~toileting. Pt able to don/doff shirt by self after set up. Assist given to complete all lower body~dressing, assist x2 to hike pants over hips, PT to stand and OT to hike pants. Transported pt into ~bathroom to complete oral care and grooming. Pt then transferred into bed by placing w/c ~perpendicular to bed, placing stump onto bed, grasping onto bed rails then pulling to modified stand~and pivoting into bed, 2 person available for safety. Pt stated you all have your way of doing ~things and I have mine. Assist to position and lift L LE into bed, mod A. After session, pt lying ~in bed with call light/phone in reach. All needs met in room. ~Therapy Code Descriptions/Def initions ~ ~Functional [place] Measure: ~0=Not Assessed/NA 4=Minimal Assistance ~1=Total Assistance 5=Supervision or Setup ~2=Maximal Assistance 6=Modified [place] ~3=Moderate Assistance 7=Complete IndependenceSCAL E: Activities may be completed with or without ~assistive devices. ~ ~8-Npkpiesqhl-kg tient completes the activity by him/herself with no assistance from a helper. ~5-Set-up or Clean-up Assistance-helpe r sets up or cleans up; patient completes activity. [place] ~assists only prior to or ~ following the activity. ~4-Supervision or Touching Assistance-helpe r provides verbal cues and/or touching/steadyi ng and/or ~contact guard assistance as patient completes activity. Assistance may be provided ~ throughout the activity or intermittently. ~3-Partial/Moder ate Assistance-helpe r does LESS THAN HALF the effort. [place] lifts, holds or supports~trunk or limbs, but provides less than half the effort. ~2-Substantial/M aximal Assistance-helpe r does MORE THAN HALF the effort. [place] lifts or holds trunk ~or limbs and provides more than half the effort. ~2-Ocowxsbgt-jee per does ALL the effort. Patient does none of the effort to complete the activity. ~Or, the assistance of 2 or more helpers is required for the patient to complete the ~ activity. ~If activity was not attempted, code reason: ~7-Patient Refused. ~9-Not Applicable-not attempted and the patient did not perform the activity before the current ~illness, exacerbation or injury. ~10-Not Attempted due to Environmental Limitations-([place] of equipment, weather restraints, etc.). ~88-Not Attempted due to Medical Conditions or Safety Concerns. ~Oral Hygiene (QC): 6 ~Shower/Bathe Self (QC): 2 ~Upper Body Dressing (QC): 5 ~Lower Body Dressing (QC): 1 ~On/Off Footwear: 2 ~Toileting Hygiene (QC): 1 ~Toilet Transfer (QC): 1 ~ ~OT Short Term Goals ~Short Term Goals ~Time Frame: Jan 17, 2020 ~Shower/bathe self: 2 ~ ~OT Tool Maintenance Technician Goals ~Tool Maintenance Technician Goals ~Time Frame: Feb 01, 2020 ~Eating (QC): 6 ~Oral Hygiene (QC): 6 ~Toileting Hygiene (QC): 4 ~Shower/Bathe Self (QC): 3 ~Upper Body Dressing (QC): 5 ~Lower Body Dressing (QC): 3 ~On/Off Footwear (QC): 2 ~Additional Goals: 1-Demonstrate ADL Tasks, 2-Verbalize Understanding, 3-ImproveStrengt h/Farshad ~1=Demonstrate adherence to instructed precautions during ADL tasks. ~2=Patient will verbalize/demons trate understanding of assistive devices/modifica tions for ADL. ~3=Patient will improve strength/toleran ce for activity to enable patient to perform ADL's. ~ ~OT Education/Plan ~Problem List/Assessment ~Assessment: Decreased Activ Tolerance, Decreased Safety Aware, Decreased UE Strength, Impaired Bed ~Mobility, Impaired Coordination, Impaired Funct Balance, Impaired I ADL's, Impaired Self-Care ~Skills, Restricted Funct UE ROM, Visual-Perceptua l Deficit ~ ~Discharge Recommendations ~Plan/Recommenda tions: Continue POC ~ ~Treatment Plan/Plan of Care ~Patient would benefit from OT for education, treatment and training to promote independence in ~ADL's, mobility, safety and/or upper extremity function for ADL's. ~Plan of Care: ADL Retraining, Functional Mobility, Group Exercise/Act as Ind, UE Funct Exercise/Act ~Treatment Duration: Feb 01, 2020 ~Frequency: At least 5 of 7 days/Wk (IRF) ~Estimated Hrs Per Day: 1.5 hours per day ~Agreement: Yes ~Rehab Potential: Guarded ~ ~Time/GCodes ~Start Time: 09:00 ~Stop Time: 10:30 ~Total Time Billed (hr/min): 90 ~Billed Treatment Time ~1 visit-ADL 6 (90 min) co-treat with PT [id number], individual [phone] ~ ~ ~ ~MARIA A KEENE Jan 05, 2020 09:10 ~ ~ ~<Created by MARIA A VYAS> ~<Electronically signed by MARIA A VYAS> 01/05/20 1042 ~ ~ no information NAME: (no code) PENDING [facility]G ([id number]) D ~MED REC#: [id number] ~ ~PHYSICIAN: GODFREY ZEPEDA DO ~Subjective ~HPI/CC On Admission ~Date Seen by Provider: Jan 05, 2020 ~Time Seen by Provider: 10:00 ~Subjective/Even ts-last exam ~Patient doing well ~Creatinine is 1.8 ~INR 1.4 so will increase Coumadin and start Lovenox 1mg/kg coverage until therapeutic ~PCP placed him on Coumadin due to [place] stenosis 1 year ago ~No BM willing to take laxatives ~No pain reported ~Limited motivation ~CPAP every nap and at night ~Checked meds and labs ~Checked therapy notes ~Conferred with RN ~ ~Review of Systems ~General: Fatigue ~Neurological: Weakness, Numbness, Incoordination ~ ~Objective ~Exam ~Vital Signs ~ ~Vital Signs ~ ~ ~ Date Time Temp Pulse Resp B/P (MAP) Pulse Ox O2 Delivery O2 Flow Rate FiO2 ~ ~6/5/20 07:34 92 NIV CPAP 4.00 ~ ~01/05/20 06:00 37.4 80 18 147/78 (101) ~ ~01/04/20 18:48 36 ~ ~Capillary Refill : Less Than 3 Seconds ~General Appearance: No Apparent Distress, WD/WN, Chronically ill, Obese ~HEENT: PERRL/EOMI, Normal ENT Inspection, Pharynx Normal ~Neck: Full Range of Motion, Normal Inspection, Non Tender, Supple, Carotid Bruit ~Respiratory: Chest Non Tender, Lungs Clear, Normal Breath Sounds, No Accessory Muscle Use, No ~Respiratory Distress ~Cardiovascular: Regular Rate, Rhythm, No Edema, No Gallop, No JVD, No Murmur, Normal Peripheral ~Pulses ~Gastrointestina l: Normal Bowel Sounds, No Organomegaly, No Pulsatile Mass, Non Tender, Soft ~Back: Normal Inspection, No CVA Tenderness, No Vertebral Tenderness ~Extremity: Normal Capillary Refill, Normal Inspection, Normal Range of Motion, Non Tender, No Calf ~Tenderness, No Pedal Edema, Other (right AKA) ~Neurologic/Psyc hiatric: Alert, Oriented x3, No Motor/Sensory Deficits, Normal Mood/Affect, 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 ~ ~FIM ~Transfers ~Therapy Code Descriptions/Def initions ~ ~Functional [place] Measure: ~0=Not Assessed/NA 4=Minimal Assistance ~1=Total Assistance 5=Supervision or Setup ~2=Maximal Assistance 6=Modified [place] ~3=Moderate Assistance 7=Complete IndependenceSCAL E: Activities may be completed with or without ~assistive devices. ~ ~7-Zshjgsirwc-rq tient completes the activity by him/herself with no assistance from a helper. ~5-Set-up or Clean-up Assistance-helpe r sets up or cleans up; patient completes activity. [place] ~assists only prior to or ~ following the activity. ~4-Supervision or Touching Assistance-helpe r provides verbal cues and/or touching/steadyi ng and/or ~contact guard assistance as patient completes activity. Assistance may be provided ~ throughout the activity or intermittently. ~3-Partial/Moder ate Assistance-helpe r does LESS THAN HALF the effort. [place] lifts, holds or supports~trunk or limbs, but provides less than half the effort. ~2-Substantial/M aximal Assistance-helpe r does MORE THAN HALF the effort. [place] lifts or holds trunk ~or limbs and provides more than half the effort. ~2-Lbsqvfxrl-jkt per does ALL the effort. Patient does none of the effort to complete the activity. ~Or, the assistance of 2 or more helpers is required for the patient to complete the ~ activity. ~If activity was not attempted, code reason: ~7-Patient Refused. ~9-Not Applicable-not attempted and the patient did not perform the activity before the current ~illness, exacerbation or injury. ~10-Not Attempted due to Environmental Limitations-([place] of equipment, weather restraints, etc.). ~88-Not Attempted due to Medical Conditions or Safety Concerns. ~Roll Left to Right (QC): 6 ~Sit to Lying (QC): 4 ~Sit to Stand (QC): 2 ~Chair/Bed-to- air Xfer(QC): 2 ~Car Transfer (QC): 1 ~ ~Gait Training ~Does the Patient Walk?: No and Walking Goal NOT indicated ~Walk 10 feet (QC): 88 ~Walk 50 ft with 2 Turns(QC): 88 ~Walk 150 ft (QC): 88 ~Walking 10ft/uneven surface-QC: 88 ~ ~Wheelchair Training ~Does the Pt Use a Wheelchair?: Yes ~Wheel 50 ft with 2 turns (QC): 1 ~Wheel 150 ft (QC): 1 ~Type of Wheelchair: Manual ~ ~Stair Training ~1 Step (curb) (QC): 88 ~4 Steps (QC): 88 ~12 Steps (QC): 88 ~ ~Balance ~Picking up an Object (QC): 88 ~ ~ADL-Treatment ~Eating (QC): 5 (set up. OT opened sugar packet and poured into tea. Pt able to seed cone picker bowl and ~bring food to his mouth.) ~Oral Hygiene (QC): 7 ~Shower/Bathe Self (QC): 7 ~Upper Body Dressing (QC): 10 (Pt wearing hospital gown. He did not have a shirt to don/doff. ARU ~attempted to find shirt for pt to use, but did not have one large enough.) ~Lower Body Dressing (QC): 1 (Assist x2 in charge master coordinator order to manage pants up. 1 person to focus on ~balance and 1 to manage clothing. Pt able to thread pants onto BLEs.) ~On/Off Footwear (QC): 1 (Pt unable to don/doff sock onto L foot. He reports being dependent for ~task at PLOF) ~Toileting Hygiene (QC): 7 ~ ~Assessment/Plan ~Assessment and Plan ~Assess Plan/Chief Complaint ~Assessment: ~Debility ~Falls ~DM OOC ~Left foot wound ~h/o right BKA ~CAD ~CABG hx ~PVD ~Coumadin treatment ~Peripheral neuropathy ~CKD ~CHF ~Poor motivation ~TREE ~[place] stenosis maintained on Coumadin ~ ~Plan: ~IRF protocol ~Home meds ~Monitor INR ~Sugar management ~Lovenox ~ ~(1) Debility ~(2) Diabetes mellitus, insulin dependent (IDDM), uncontrolled ~Status: Acute ~(3) TREE (obstructive sleep apnea) ~Status: Chronic ~(4) Renal insufficiency ~Status: Acute ~(5) CAD (coronary artery disease) ~Status: Chronic ~(6) Hypoxia ~Status: Acute ~ ~ ~ ~GODFREY ZEPEDA DO Jan 05, 2020 06:44 ~ ~ ~<Created by GODFREY ZEPEDA DO> ~<Electronically signed by GODFREY ZEPEDA DO> 01/05/20 1048 ~ ~ no information NAME: (no code) PENDING [facility]G ([id number]) D ~MED REC#: [id number] ~ ~PHYSICIAN: BETTY STRONG PT ~PT Daily Note-Current ~Subjective ~Patient in bed pre tx, agrees to PT, has no complaints of pain at rest. Will be co-treating with OT~due to poor patient mobility, strength, endurance, balance, the need to coordinate UE and LE during ~activity, reduce the risk of falls. ~ ~Appearance ~Patient in WC post tx with nurse call, phone, tray, all needs met, OT to continue working with ~patient. ~ ~Mental Status ~Patient Orientation: Person, Place, Situation ~ ~Transfers ~SCALE: Activities may be completed with or without assistive devices. ~ ~3-Impheufccv-qb tient completes the activity by him/herself with no assistance from a helper. ~5-Set-up or Clean-up Assistance-helpe r sets up or cleans up; patient completes activity. [place] ~assists only prior to or ~ following the activity. ~4-Supervision or Touching Assistance-helpe r provides verbal cues and/or touching/steadyi ng and/or ~contact guard assistance as patient completes activity. Assistance may be provided ~ throughout the activity or intermittently. ~3-Partial/Moder ate Assistance-helpe r does LESS THAN HALF the effort. [place] lifts, holds or supports~trunk or limbs, but provides less than half the effort. ~2-Substantial/M aximal Assistance-helpe r does MORE THAN HALF the effort. [place] lifts or holds trunk ~or limbs and provides more than half the effort. ~7-Uujaspbpq-zcm per does ALL the effort. Patient does none of the effort to complete the activity. ~Or, the assistance of 2 or more helpers is required for the patient to complete the ~ activity. ~If activity was not attempted, code reason: ~7-Patient Refused. ~9-Not Applicable-not attempted and the patient did not perform the activity before the current ~illness, exacerbation or injury. ~10-Not Attempted due to Environmental Limitations-([place] of equipment, weather restraints, etc.). ~88-Not Attempted due to Medical Conditions or Safety Concerns. ~Roll Left Right (QC): 6 ~Lying to Sitting/Side of Bed(Q: 3 ~Sit to Stand (QC): 2 ~Chair/Bed-to- air Xfer(QC): 2 ~Patient supine to sit, transfer to shower chair, taken to shower room, showered, taken back to his ~room, standing to finish dressing and drying, then stand again and sit in WC. Patient needs a lot ~of assist with transfers and standing and cues for positioning and safety. Patient has poor ~endurance and needs frequent rest breaks. ~ ~Weight Bearing ~ ~right BKA ~ ~Treatments ~bed mobility and transfers, shower, dressing. PT worked on bed mobility, transfers, standing, ~assist with shower and dressing, trunk balance and positioning and safety during shower, OT worked ~on shower and dressing and assisted with transfers. ~ ~Assessment ~Current Status: Poor Progress ~Patient has a lot of trouble standing, high fall risk ~ ~PT Short Term Goals ~Short Term Goals ~Time Frame: Jan 11, 2020 ~Roll Left Right: 6 ~Sit to lyin ~Lying to sitting on side of be: 4 ~Sit to stand: 3 ~Chair/bed-to-ch air transfer: 3 ~ ~PT Tool Maintenance Technician Goals ~Longterm Goals ~PT Longterm Goals Time Frame: Jan 25, 2020 ~Roll Left Right (QC): 6 ~Sit to Lying (QC): 6 ~Lying-Sitting on Side/Bed(QC): 6 ~Sit to Stand (QC): 5 ~Chair/Bed-to-Ch air Xfer(QC): 5 ~Toilet Transfer (QC): 5 ~Car Transfer (QC): 5 ~Does the Patient Walk: No and Walking Goal NOT indicated ~Walk 10 feet (QC): 88 ~Walk 50ft with 2 Turns (QC): 88 ~Walk 150 ft (QC): 88 ~Walking 10ft on Uneven Surface: 88 ~1 Step (curb) (QC): 88 ~4 Steps (QC): 88 ~12 Steps (QC): 88 ~Picking up an Object (QC): 88 ~Wheel 50 feet with 2 turns (QC: 6 ~Wheel 150 feet: 6 ~ ~PT Plan ~Problem List ~Problem List: Activity Tolerance, Functional Strength, Safety, Balance, Gait, Transfer, Bed ~Mobility, ROM ~ ~Treatment/Plan ~Treatment Plan: Continue Plan of Care ~Treatment Plan: Bed Mobility, Education, Functional Activity Farshad, Functional Strength, Group ~Therapy, Safety, Therapeutic Exercise, Transfers ~Treatment Duration: Jan 25, 2020 ~Frequency: At least 5 of 7 days/Wk (IRF) ~Estimated Hrs Per Day: 1.5 hours per day ~Patient and/or Family Agrees t: Yes ~ ~Safety Risks/Education ~Patient Education: Transfer Techniques, Correct Positioning, Safety Issues ~Teaching Recipient: Patient ~Teaching Methods: Demonstration, Discussion ~Response to Teaching: Reinforcement Needed ~ ~Time/GCodes ~Time In: 0900 ~Time Out: 1000 ~Total Billed Treatment Time: 60 ~Total Billed Treatment ~1 visit ~FA 60' ~ ~ ~ ~BETTY STRONG PT Jan 05, 2020 11:10 ~ ~ ~<Created by BETTY STRONG PT> ~<Electronically signed by BETTY STRONG PT> 01/05/20 1112 ~ ~ laboratory on 2020-01-05 Albumin 3.2 g/dL (NEG) 3.4 - 5.4 g/dL 01-05-2020 PENDING LOCATION [Mass/Vol] 01:37-0400 [facility] ([id number]) ALP [Catalytic 90 U/L (NEG) 44 - 147 U/L 01-05-2020 PEND ING LOCATION activity/Vol] 01:37-0400 [facility] ([id number]) ALT [Catalytic 19 U/L (NEG) 4 - 40 U/L 01-05-2020 PENDIN G LOCATION activity/Vol] 01:37-0400 [facility] ([id number]) Anion gap 9 mmol/L (NEG) 3 - 11 mmol/L 01-05-2020 PENDING LOCATION [Moles/Vol] 01:37-0400 [facility] ([id number]) AST [Catalytic 14 U/L (NEG) 10 - 34 U/L 01-05-2020 PENDI NG LOCATION activity/Vol] 01:37-0400 [facility] ([id number]) Basophils (Bld) 0.0 10*3/uL (NEG) 0 - 0.3 10*3/uL 01-05-2020 PENDING LOCATION [#/Vol] 01:37-0400 [facility] ([id number]) Basophils/100 0 % (NEG) 0.5 - 1 % 01-05-2020 PENDING LOCATION WBC (Bld) 01:37-0400 [facility] ([id number]) Bilirubin 0.5 mg/dL (NEG) 0.1 - 1.2 mg/dL 01-05-2020 PENDIN G LOCATION [Mass/Vol] 01:37-0400 [facility] ([id number]) Calcium 8.5 mg/dL (NEG) 8.5 - 10.2 mg/dL 01-05-2020 PENDI NG LOCATION [Mass/Vol] 01:37-0400 [facility] ([id number]) Calcium 9.1 mg/dL (NEG) 8.5 - 10.2 mg/dL 01-05-2020 PENDI NG LOCATION [Mass/Vol] 01:37-0400 [facility] ([id number]) Chloride 102 mmol/L (NEG) 95 - 106 mmol/L 01-05-2020 PENDI NG LOCATION [Moles/Vol] 01:37-0400 [facility] ([id number]) CO2 [Moles/Vol] 22 mmol/L (NEG) 23 - 29 mmol/L 01-05-2020 P ENDING LOCATION 01:37-0400 [facility] ([id number]) Creatinine 1.82 mg/dL (H) 01-05-2020 PENDING LOCATI ON [Mass/Vol] 01:37-0400 [facility] ([id number]) Creatinine and 37 (no code) 01-05-2020 PENDING LOC ATION Glomerular 01:37-0400 [facility] ([id number]) filtration rate.predicted panel - Serum, Plasma or Blood Eosinophils 0.1 10*3/uL (NEG) 0.05 - 0.5 01-05-2020 PENDING LOCATION (Bld) [#/Vol] 10*3/uL 01:37-0400 [facility] ([id number]) Eosinophils/100 1 % (NEG) 1 - 4 % 01-05-2020 PENDIN G LOCATION WBC (Bld) 01:37-0400 [facility] ([id number]) Erythrocyte 15.1 % (H) 11.6 - 14.6 % 01-05-2020 PENDIN G LOCATION distribution 01:37-0400 [facility] ([id number]) width (RBC) [Ratio] Glucose 211 mg/dL (H) 60 - 125 mg/dL 01-05-2020 PENDING LOCATION [Mass/Vol] 01:37-0400 [facility] ([id number]) Glucose 189 mg/dL (H) 60 - 125 mg/dL 01-05-2020 PENDING LOCATION [Mass/Vol] 01:37-0400 [facility] ([id number]) Glucose 305 mg/dL (H) 60 - 125 mg/dL 01-05-2020 PENDING LOCATION [Mass/Vol] 06:40-0400 [facility] (00501) Glucose 218 mg/dL (H) 60 - 125 mg/dL 01-05-2020 PENDING LOCATION [Mass/Vol] 10:59-0400 [facility] ([id number]) Glucose 163 mg/dL (H) 60 - 125 mg/dL 01-05-2020 PENDING LOCATION [Mass/Vol] 15:46-0400 [facility] ([id number]) Hematocrit (Bld) 32 % (L) 36.1 - 50.3 % 01-05-2020 P ENDING LOCATION [Volume 01:37-0400 [facility] ([id number]) fraction] Hemoglobin (Bld) 10.6 g/dL (L) 12.1 - 17.2 g/dL 01-05-2020 PENDING LOCATION [Mass/Vol] 01:37-0400 [facility] ([id number]) INR Coag 1.4 (NEG) 01-05-2020 PENDING LOCATI ON (Platelet poor 01:37-0400 [facility] (07245) plasma or blood) [Relative time] Lymphocytes 1.0 10*3/uL (NEG) 0.9 - 2.9 01-05-2020 PENDING LOCATION (Bld) [#/Vol] 10*3/uL 01:37-0400 [facility] ([id number]) Lymphocytes/100 13 % (NEG) 20 - 40 % 01-05-2020 PENDIN G LOCATION WBC (Bld) 01:37-0400 [facility] ([id number]) MCH (RBC) 28 pg (NEG) 27 - 31 pg 01-05-2020 PENDING LOC ATION [Entitic mass] 01:37-0400 [facility] ([id number]) MCHC (RBC) 33 g/dL (NEG) 32 - 36 g/dL 01-05-2020 PENDING LOCATION [Mass/Vol] 01:37-0400 [facility] ([id number]) MCV (RBC) 85 (NEG) 01-05-2020 PENDING LOCATI ON [Entitic vol] 01:37-0400 [facility] (50462) Monocytes (Bld) 0.8 10*3/uL (NEG) 0.3 - 0.9 01-05-2020 PEND ING LOCATION [#/Vol] 10*3/uL 01:37-0400 [facility] ([id number]) Monocytes/100 11 % (NEG) 2 - 8 % 01-05-2020 PENDING LOCATION WBC (Bld) 01:37-0400 [facility] ([id number]) Neutrophils 5.6 10*3/uL (NEG) 1.7 - 7 10*3/uL 2020 [facility] LOCATION (Bld) [#/Vol] 01:37-0400 [facility] ([id number]) Neutrophils/100 74 % (NEG) 40 - 60 % 01-05-2020 PENDIN G LOCATION WBC (Bld) 01:37-0400 [facility] (12833) Platelet mean 11.1 (H) 01-05-2020 PENDING LOCA TION volume (Bld) 01:37-0400 [facility] ([id number]) [Entitic vol] Platelets (Bld) 130 10*3/uL (NEG) 150 - 450 01-05-2020 PEND ING LOCATION [#/Vol] 10*3/uL 01:37-0400 [facility] ([id number]) Potassium 4.1 mmol/L (NEG) 3.7 - 5.2 mmol/L 01-05-2020 PEND [facility] LOCATION [Moles/Vol] 01:37-0400 [facility] ([id number]) Protein 6.3 g/dL (L) 6.4 - 8.3 g/dL 01-05-2020 PENDING LOCATION [Mass/Vol] 01:37-0400 [facility] ([id number]) PT Coag (PPP) 18.0 s (H) 9.4 - 12.5 s [facility] ([id number]) RBC (Bld) 3.75 10*6/uL (L) 4.2 - 6.1 01-05-2020 PENDING L OCATION [#/Vol] 10*6/uL 01:37-0400 [facility] ([id number]) Sodium 133 mmol/L (L) 135 - 145 mmol/L 01-05-2020 PEND [facility] LOCATION [Moles/Vol] 01:37-0400 [facility] ([id number]) Urea nitrogen 30 mg/dL (H) 7 - 20 mg/dL [facility]:37-0400 [facility] ([id number]) Urea 16 mg/mg (no code) 6 - 22 mg/mg 01-05-2020 PENDING L OCATION nitrogen/Creatin 01:37-0400 [facility] ([id number]) ine [Mass ratio] WBC (Bld) 7.5 10*3/uL (NEG) 3.5 - 10.5 01-05-2020 PENDING L OCATION [#/Vol] 10*3/uL 01:37-0400 [facility] ([id number]) not yet categorized on 2020-01-04 no information NAME: (no code) PENDING LOCATIO [facility] ([id number]) D ~MED REC#: [id number] ~ ~PHYSICIAN: BETTY STRONG PT ~PT Daily Note-Current ~Subjective ~Patient in bed pre tx, agrees to PT, voices no complaints of pain. Patient very drowsy but wakes ~after a few moments. Will be co-treating with OT due to poor patient mobility, strength, endurance,~javi ce, the need to coordinate UE and LE during activity, and to decrease risk of falls. ~ ~Appearance ~Patient in bed post tx with nurse call, phone, tray, all needs met. ~ ~Mental Status ~Patient Orientation: Normal For Age ~ ~Transfers ~SCALE: Activities may be completed with or without assistive devices. ~ ~4-Lctanaxtss-bq tient completes the activity by him/herself with no assistance from a helper. ~5-Set-up or Clean-up Assistance-helpe r sets up or cleans up; patient completes activity. [place] ~assists only prior to or ~ following the activity. ~4-Supervision or Touching Assistance-helpe r provides verbal cues and/or touching/steadyi ng and/or ~contact guard assistance as patient completes activity. Assistance may be provided ~ throughout the activity or intermittently. ~3-Partial/Moder ate Assistance-helpe r does LESS THAN HALF the effort. [place] lifts, holds or supports~trunk or limbs, but provides less than half the effort. ~2-Substantial/M aximal Assistance-helpe r does MORE THAN HALF the effort. [place] lifts or holds trunk ~or limbs and provides more than half the effort. ~3-Rwaacuuwm-zeg per does ALL the effort. Patient does none of the effort to complete the activity. ~Or, the assistance of 2 or more helpers is required for the patient to complete the ~ activity. ~If activity was not attempted, code reason: ~7-Patient Refused. ~9-Not Applicable-not attempted and the patient did not perform the activity before the current ~illness, exacerbation or injury. ~10-Not Attempted due to Environmental Limitations-([place] of equipment, weather restraints, etc.). ~88-Not Attempted due to Medical Conditions or Safety Concerns. ~Roll Left Right (QC): 6 ~Sit to Lying (QC): 4 ~Lying to Sitting/Side of Bed(Q: 3 ~Sit to Stand (QC): 2 ~Chair/Bed-to- air Xfer(QC): 2 ~Patient went supine to sit and then stand pivot to WC, propelled to therapy gym, stood x3 in the ~parallel bars with max assist, propelled to room, stand pivot transfer to bed, layed down in bed. ~Patient needs extra time for all activity due to fatigue. He does get SOB with activity. ~ ~Weight Bearing ~ ~right BKA ~ ~Wheelchair Training ~Does the Pt Use a Wheelchair?: Yes ~Type of Wheelchair: Manual ~120'x2, very slow, needs several rest breaks each way. ~ ~Treatments ~bed mobility and transfers, WC mobility, standing. PT performed bed mobility and transfers and ~standing, OT assisted with transfers and UE positioning and safety during mobility ~ ~Assessment ~Current Status: Fair Progress ~unsteady during transfers ~ ~PT Short Term Goals ~Short Term Goals ~Time Frame: Jan 11, 2020 ~Roll Left Right: 6 ~Sit to lyin ~Lying to sitting on side of be: 4 ~Sit to stand: 3 ~Chair/bed-to-ch air transfer: 3 ~ ~PT Longterm Goals ~Tool Maintenance Technician Goals ~PT Tool Maintenance Technician Goals Time Frame: Jan 25, 2020 ~Roll Left Right (QC): 6 ~Sit to Lying (QC): 6 ~Lying-Sitting on Side/Bed(QC): 6 ~Sit to Stand (QC): 5 ~Chair/Bed-to-Ch air Xfer(QC): 5 ~Toilet Transfer (QC): 5 ~Car Transfer (QC): 5 ~Does the Patient Walk: No and Walking Goal NOT indicated ~Walk 10 feet (QC): 88 ~Walk 50ft with 2 Turns (QC): 88 ~Walk 150 ft (QC): 88 ~Walking 10ft on Uneven Surface: 88 ~1 Step (curb) (QC): 88 ~4 Steps (QC): 88 ~12 Steps (QC): 88 ~Picking up an Object (QC): 88 ~Wheel 50 feet with 2 turns (QC: 6 ~Wheel 150 feet: 6 ~ ~PT Plan ~Problem List ~Problem List: Activity Tolerance, Functional Strength, Safety, Balance, Gait, Transfer, Bed ~Mobility, ROM ~ ~Treatment/Plan ~Treatment Plan: Continue Plan of Care ~Treatment Plan: Bed Mobility, Education, Functional Activity Farshad, Functional Strength, Group ~Therapy, Safety, Therapeutic Exercise, Transfers ~Treatment Duration: Jan 25, 2020 ~Frequency: At least 5 of 7 days/Wk (IRF) ~Estimated Hrs Per Day: 1.5 hours per day ~Patient and/or Family Agrees t: Yes ~ ~Safety Risks/Education ~Patient Education: Transfer Techniques, Correct Positioning, W/C Management, Safety Issues ~Teaching Recipient: Patient ~Teaching Methods: Demonstration, Discussion ~Response to Teaching: Reinforcement Needed ~ ~Time/GCodes ~Time In: 1400 ~Time Out: 1440 ~Total Billed Treatment Time: 40 ~Total Billed Treatment ~1 visit ~FA 40' ~ ~Co-treated for the whole 40'. ~ ~ ~ ~BETTY STRONG PT Jan 04, 2020 14:52 ~ ~ ~<Created by BETTY STRONG PT> ~<Electronically signed by BETTY STRONG PT> 01/04/20 1453 ~ ~ no information NAME: (no code) PENDING [facility] ([id number]) D ~MED REC#: [id number] ~ ~PHYSICIAN: YFN SUTTON ON OT ~OT Current Status-Daily Note ~Subjective ~Pt laying in bed sleeping, easily awoken for therapy. OT/PT cotreat due to poor patient mobility, ~strength, endurance, balance, to coordinate UE and LE during activity, and to reduce risk of falls ~ ~ADL-Treatment ~Therapy Code Descriptions/Def initions ~ ~Functional [place] Measure: ~0=Not Assessed/NA 4=Minimal Assistance ~1=Total Assistance 5=Supervision or Setup ~2=Maximal Assistance 6=Modified [place] ~3=Moderate Assistance 7=Complete IndependenceSCAL E: Activities may be completed with or without ~assistive devices. ~ ~9-Gzcpskviri-sr tient completes the activity by him/herself with no assistance from a helper. ~5-Set-up or Clean-up Assistance-helpe r sets up or cleans up; patient completes activity. [place] ~assists only prior to or ~ following the activity. ~4-Supervision or Touching Assistance-helpe r provides verbal cues and/or touching/steadyi ng and/or ~contact guard assistance as patient completes activity. Assistance may be provided ~ throughout the activity or intermittently. ~3-Partial/Moder ate Assistance-helpe r does LESS THAN HALF the effort. [place] lifts, holds or supports~trunk or limbs, but provides less than half the effort. ~2-Substantial/M aximal Assistance-helpe r does MORE THAN HALF the effort. [place] lifts or holds trunk ~or limbs and provides more than half the effort. ~4-Jbmzrbeyf-ynq per does ALL the effort. Patient does none of the effort to complete the activity. ~Or, the assistance of 2 or more helpers is required for the patient to complete the ~ activity. ~If activity was not attempted, code reason: ~7-Patient Refused. ~9-Not Applicable-not attempted and the patient did not perform the activity before the current ~illness, exacerbation or injury. ~10-Not Attempted due to Environmental Limitations-([place] of equipment, weather restraints, etc.). ~88-Not Attempted due to Medical Conditions or Safety Concerns. ~Eating (QC): 5 (set up. OT opened sugar packet and poured into tea. Pt able to seed cone picker bowl and ~bring food to his mouth.) ~ ~Other Treatment ~OT/PT cotreat due to poor patient mobility, strength, endurance, balance, to coordinate UE and LE ~during activity, and to reduce risk of falls. OT focused on UE placement, w/c mobility, assist with ~standing, assist with transfers, cues and sequencing for safety while PT focused on transfers, ~standing balance, bed mobility, assist with w/c mobility. Pt transferred from supine to sit EOB, ~then to w/c with stand pivot transfer. He propelled to the therapy gym where he stood at parallel ~bars x3 standing trials (Max A each) with rest breaks between each trial. Pt then self-propelled w/c~back to his room requiring multiple rest breaks. Pt transferred back to bed from w/c. Lunch tray ~placed in front of pt and he was able to eat with assistance from OT for setting up tea. Pt required~extra time for all activities due to fatigue, and SOB with activity. Post OT/PT cotreat, pt laying ~in bed, call light in reach and all needs met. ~ ~Education ~OT Patient Education: Correct positioning, Energy conservation, Modified ADL techniques, Progress ~toward Goal/Update tx plan, Purpose of tx/functional activities, Safety issues, Transfer techniques ~Teaching Recipient: Patient ~Teaching Methods: Discussion ~Response to Teaching: Verbalize Understanding ~ ~OT Short Term Goals ~Short Term Goals ~Time Frame: Jan 17, 2020 ~Shower/bathe self: 2 ~ ~OT Tool Maintenance Technician Goals ~Longterm Goals ~Time Frame: Feb 01, 2020 ~Eating (QC): 6 ~Oral Hygiene (QC): 6 ~Toileting Hygiene (QC): 4 ~Shower/Bathe Self (QC): 3 ~Upper Body Dressing (QC): 5 ~Lower Body Dressing (QC): 3 ~On/Off Footwear (QC): 2 ~Additional Goals: 1-Demonstrate ADL Tasks, 2-Verbalize Understanding, 3-ImproveStrengt h/Farshad ~1=Demonstrate adherence to instructed precautions during ADL tasks. ~2=Patient will verbalize/demons trate understanding of assistive devices/modifica tions for ADL. ~3=Patient will improve strength/toleran ce for activity to enable patient to perform ADL's. ~ ~OT Education/Plan ~Problem List/Assessment ~Assessment: Decreased Activ Tolerance, Decreased UE Strength, Impaired Funct Balance, Impaired I ~ADL's, Impaired Self-Care Skills ~ ~Discharge Recommendations ~Plan/Recommenda tions: Continue POC ~ ~Treatment Plan/Plan of Care ~Patient would benefit from OT for education, treatment and training to promote independence in ~ADL's, mobility, safety and/or upper extremity function for ADL's. ~Plan of Care: ADL Retraining, Functional Mobility, Group Exercise/Act as Ind, UE Funct Exercise/Act ~Treatment Duration: Feb 01, 2020 ~Frequency: At least 5 of 7 days/Wk (IRF) ~Estimated Hrs Per Day: 1.5 hours per day ~Agreement: Yes ~Rehab Potential: Guarded ~ ~Time/GCodes ~Start Time: 14:00 ~Stop Time: 14:40 ~Total Time Billed (hr/min): 40 ~Billed Treatment Time ~OT/PT cotreat [id number] ~ ~1, FA 3 (40') ~ ~ ~ ~SOPHIE SUTTON OT Jan 04, 2020 14:56 ~ ~ ~<Created by JESUS SUTTON OT> ~<Electronically signed by JESUS SUTTON OT> 01/04/20 1458 ~ ~ laboratory on 2020-01-04 Anion gap 8 mmol/L (NEG) 3 - 11 mmol/L 01-04-2020 PENDING LOCATION [Moles/Vol] 02:10-0400 [facility] ([id number]) Calcium 8.6 mg/dL (NEG) 8.5 - 10.2 mg/dL 01-04-2020 PENDI NG LOCATION [Mass/Vol] 02:10-0400 [facility] ([id number]) Chloride 103 mmol/L (NEG) 95 - 106 mmol/L 01-04-2020 PENDI NG LOCATION [Moles/Vol] 02:10-0400 [facility] ([id number]) CO2 [Moles/Vol] 24 mmol/L (NEG) 23 - 29 mmol/L 01-04-2020 P ENDING LOCATION 02:10-0400 [facility] ([id number]) Creatinine 1.78 mg/dL (H) 01-04-2020 PENDING LOCATI ON [Mass/Vol] 02:10-0400 [facility] (72259) Creatinine and 38 (no code) 01-04-2020 PENDING LOC ATION Glomerular 02:10-0400 [facility] (48085) filtration rate.predicted panel - Serum, Plasma or Blood Erythrocyte 15.2 % (H) 11.6 - 14.6 % 01-04-2020 PENDIN G LOCATION distribution 02:10-0400 [facility] (65791) width (RBC) [Ratio] Glucose 183 mg/dL (H) 60 - 125 mg/dL 01-04-2020 PENDING LOCATION [Mass/Vol] 00:57-0400 [facility] ([id number]) Glucose 139 mg/dL (H) 60 - 125 mg/dL 01-04-2020 PENDING LOCATION [Mass/Vol] 02:10-0400 [facility] ([id number]) Glucose 74 mg/dL (NEG) 60 - 125 mg/dL 01-04-2020 PENDING LOCATION [Mass/Vol] 05:04-0400 [facility] (65974) Glucose 91 mg/dL (NEG) 60 - 125 mg/dL 01-04-2020 PENDING LOCATION [Mass/Vol] 06:05-0400 [facility] ([id number]) Glucose 136 mg/dL (H) 60 - 125 mg/dL 01-04-2020 PENDING LOCATION [Mass/Vol] 07:17-0400 [facility] ([id number]) Glucose 273 mg/dL (H) 60 - 125 mg/dL 06-04-2020 PENDING LOCATION [Mass/Vol] 10:59-0400 [facility] ([id number]) Glucose 326 mg/dL (H) 60 - 125 mg/dL 01-04-2020 PENDING LOCATION [Mass/Vol] 13:03-0400 [facility] ([id number]) Glucose 345 mg/dL (H) 60 - 125 mg/dL 01-04-2020 PENDING LOCATION [Mass/Vol] 15:27-0400 [facility] ([id number]) Glucose 293 mg/dL (H) 60 - 125 mg/dL 01-04-2020 PENDING LOCATION [Mass/Vol] 19:22-0400 [facility] (96313) Glucose 208 mg/dL (H) 60 - 125 mg/dL 01-04-2020 PENDING LOCATION [Mass/Vol] 22:53-0400 [facility] ([id number]) Hematocrit (Bld) 32 % (L) 36.1 - 50.3 % 01-04-2020 P ENDING LOCATION [Volume 02:10-0400 [facility] (23723) fraction] Hemoglobin (Bld) 10.7 g/dL (L) 12.1 - 17.2 g/dL 01-04-2020 PENDING LOCATION [Mass/Vol] 02:10-0400 [facility] ([id number]) INR Coag 1.2 (NEG) 01-04-2020 PENDING LOCATI ON (Platelet poor 02:10-0400 [facility] ([id number]) plasma or blood) [Relative time] MCH (RBC) 28 pg (NEG) 27 - 31 pg 01-04-2020 PENDING LOC ATION [Entitic mass] 02:10-0400 [facility] ([id number]) MCHC (RBC) 34 g/dL (NEG) 32 - 36 g/dL 01-04-2020 PENDING LOCATION [Mass/Vol] 02:10-0400 [facility] ([id number]) MCV (RBC) 84 (NEG) 01-04-2020 PENDING LOCATI ON [Entitic vol] 02:10-0400 [facility] ([id number]) Platelet mean 10.5 (H) 01-04-2020 PENDING LOCA TION volume (Bld) 02:10-0400 [facility] ([id number]) [Entitic vol] Platelets (Bld) 131 10*3/uL (NEG) 150 - 450 01-04-2020 PEND ING LOCATION [#/Vol] 10*3/uL 02:10-0 [facility] ([id number]) Potassium 3.8 mmol/L (NEG) 3.7 - 5.2 mmol/L 01-04-2020 PEND [facility] LOCATION [Moles/Vol] 02:10-0400 [facility] ([id number]) PT Coag (PPP) 15.5 s (H) 9.4 - 12.5 s 01-04-2020 [facility] LOCATION [Time] 02: [facility] () RBC (Bld) 3.78 10*6/uL (L) 4.2 - 6.1 01-04-2020 PENDING L OCATION [#/Vol] 10*6/uL 02:-0 [facility] (05143) Sodium 135 mmol/L (NEG) 135 - 145 mmol/L 01-04-2020 PEND [facility] LOCATION [Moles/Vol] 02:-0 [facility] (60098) Urea nitrogen 27 mg/dL (H) 7 - 20 mg/dL 01-04-[facility]: [facility] () Urea 15 mg/mg (no code) 6 - 22 mg/mg 01-04-2020 PENDING L OCATION nitrogen/Creatin 02:10-0 [facility] ([id number]) ine [Mass ratio] WBC (Bld) 7.8 10*3/uL (NEG) 3.5 - 10.5 01-04-2020 PENDING L OCATION [#/Vol] 10*3/uL 02:0 [facility] ([id number]) not yet categorized on 2020-01-03 PROCALCITONIN 0.07 (NEG) 01-03-2020 PENDING LOCA TION (PCT) 00:50-0400 [facility] (87591) laboratory on 2020-01-03 Albumin 3.2 g/dL (NEG) 3.4 - 5.4 g/dL 01-03-2020 PENDING LOCATION [Mass/Vol] 00:50-0400 [facility] ([id number]) ALP [Catalytic 90 U/L (NEG) 44 - 147 U/L 01-03-2020 PEND ING LOCATION activity/Vol] 00:50-0400 [facility] ([id number]) ALT [Catalytic 19 U/L (NEG) 4 - 40 U/L 01-03-2020 PENDIN G LOCATION activity/Vol] 00:50-0400 [facility] (26947) Anion gap 12 mmol/L (NEG) 3 - 11 mmol/L 01-03-2020 PENDING LOCATION [Moles/Vol] 00:50-0400 [facility] ([id number]) AST [Catalytic 19 U/L (NEG) 10 - 34 U/L 01-03-2020 PENDI NG LOCATION activity/Vol] 00:50-0400 [facility] (02143) Basophils (Bld) 0.0 10*3/uL (NEG) 0 - 0.3 10*3/uL 01-03-2020 PENDING LOCATION [#/Vol] 00:50-0400 [facility] ([id number]) Basophils/100 0 % (NEG) 0.5 - 1 % 01-03-2020 PENDING LOCATION WBC (Bld) 00:50-0400 [facility] (45692) Bilirubin 0.6 mg/dL (NEG) 0.1 - 1.2 mg/dL 01-03-2020 PENDIN G LOCATION [Mass/Vol] 00:50-0400 [facility] ([id number]) Calcium 8.4 mg/dL (L) 8.5 - 10.2 mg/dL 01-03-2020 PENDI NG LOCATION [Mass/Vol] 00:50-0400 [facility] ([id number]) Calcium 9.0 mg/dL (NEG) 8.5 - 10.2 mg/dL 01-03-2020 PENDI NG LOCATION [Mass/Vol] 00:50-0400 [facility] (08261) Chloride 102 mmol/L (NEG) 95 - 106 mmol/L 01-03-2020 PENDI NG LOCATION [Moles/Vol] 00:50-0400 [facility] ([id number]) CO2 [Moles/Vol] 17 mmol/L (L) 23 - 29 mmol/L 01-03-2020 P ENDING LOCATION 00:50-0400 [facility] (90085) Creatinine 1.70 mg/dL (H) 01-03-2020 PENDING LOCATI ON [Mass/Vol] 00:50-0400 [facility] ([id number]) Creatinine and 40 (no code) 01-03-2020 PENDING LOC ATION Glomerular 00:50-0400 [facility] (50300) filtration rate.predicted panel - Serum, Plasma or Blood Eosinophils 0.1 10*3/uL (NEG) 0.05 - 0.5 01-03-2020 PENDING LOCATION (Bld) [#/Vol] 10*3/uL 00:50-0400 [facility] (97047) Eosinophils/100 2 % (NEG) 1 - 4 % 01-03-2020 [facility] LOCATION WBC (Bld) 00:50-0400 [facility] ([id number]) Erythrocyte 15.1 % (H) 11.6 - 14.6 % 01-03-2020 [facility] LOCATION distribution 00:50-0400 [facility] (24518) width (RBC) [Ratio] Glucose 387 mg/dL (H) 60 - 125 mg/dL 01-03-2020 PENDING LOCATION [Mass/Vol] 00:50-0400 [facility] (51221) Glucose 431 mg/dL (HH) 60 - 125 mg/dL 01-03-2020 PENDING LOCATION [Mass/Vol] 06:02-0400 [facility] ([id number]) Glucose 381 mg/dL (H) 60 - 125 mg/dL 01-03-2020 PENDING LOCATION [Mass/Vol] 10:22-0400 [facility] (65840) Glucose 287 mg/dL (H) 60 - 125 mg/dL 01-03-2020 PENDING LOCATION [Mass/Vol] 15:56-0400 [facility] (19089) Glucose 255 mg/dL (H) 60 - 125 mg/dL 01-03-2020 PENDING LOCATION [Mass/Vol] 20:44-0400 [facility] ([id number]) Hematocrit (Bld) 31 % (L) 36.1 - 50.3 % 01-03-2020 P ENDING LOCATION [Volume 00:50-0400 [facility] (31680) fraction] Hemoglobin (Bld) 10.6 g/dL (L) 12.1 - 17.2 g/dL 01-03-2020 PENDING LOCATION [Mass/Vol] 00:50-0400 [facility] ([id number]) Lymphocytes 1.1 10*3/uL (NEG) 0.9 - 2.9 01-03-2020 PENDING LOCATION (Bld) [#/Vol] 10*3/uL 00:50-0400 [facility] (42388) Lymphocytes/100 19 % (NEG) 20 - 40 % 01-03-2020 [facility] LOCATION WBC (Bld) 00:50-0400 [facility] (37899) MCH (RBC) 28 pg (NEG) 27 - 31 pg 01-03-2020 PENDING LOC ATION [Entitic mass] 00:50-0400 [facility] (59641) MCHC (RBC) 34 g/dL (NEG) 32 - 36 g/dL 01-03-2020 PENDING LOCATION [Mass/Vol] 00:50-0400 [facility] (81110) MCV (RBC) 84 (NEG) 01-03-2020 PENDING LOCATI ON [Entitic vol] 00:50-0400 [facility] ([id number]) Monocytes (Bld) 0.4 10*3/uL (NEG) 0.3 - 0.9 01-03-2020 PEND ING LOCATION [#/Vol] 10*3/uL 00:50-0400 [facility] (57447) Monocytes/100 8 % (NEG) 2 - 8 % 01-03-2020 PENDING LOCATION WBC (Bld) 00:50-0400 [facility] (59254) Neutrophils 4.1 10*3/uL (NEG) 1.7 - 7 10*3/uL 01-03-2020 [facility] LOCATION (Bld) [#/Vol] 00:50-0400 [facility] (87324) Neutrophils/100 72 % (NEG) 40 - 60 % 01-03-2020 PENDIN G LOCATION WBC (Bld) 00:50-0400 [facility] (15495) Platelet mean 10.9 (H) 01-03-2020 PENDING LOCA TION volume (Bld) 00:50-0400 [facility] (88434) [Entitic vol] Platelets (Bld) 109 10*3/uL (L) 150 - 450 01-03-2020 PEND ING LOCATION [#/Vol] 10*3/uL 00:50-0400 [facility] (37501) Potassium 4.3 mmol/L (NEG) 3.7 - 5.2 mmol/L 01-03-2020 PEND [facility]G LOCATION [Moles/Vol] 00:50-0400 [facility] (10175) Protein 6.1 g/dL (L) 6.4 - 8.3 g/dL 01-03-2020 PENDING LOCATION [Mass/Vol] 00:50-0400 [facility] (49015) RBC (Bld) 3.75 10*6/uL (L) 4.2 - 6.1 01-03-2020 PENDING L OCATION [#/Vol] 10*6/uL 00:50-0400 [facility] (12199) Sodium 131 mmol/L (L) 135 - 145 mmol/L 01-03-2020 PEND ING LOCATION [Moles/Vol] 00:50-0400 [facility] (00146) Urea nitrogen 27 mg/dL (H) 7 - 20 mg/dL 01-03-2020 PENDI NG LOCATION [Mass/Vol] 00:50-0400 [facility] (71125) Urea 16 mg/mg (no code) 6 - 22 mg/mg 01-03-2020 PENDING L OCATION nitrogen/Creatin 00:50-0400 [facility] (34673) ine [Mass ratio] WBC (Bld) 5.8 10*3/uL (NEG) 3.5 - 10.5 01-03-2020 PENDING L OCATION [#/Vol] 10*3/uL 00:50-0400 [facility] (08281) not yet categorized on 2020-01-02 COLONY COUNT . (no code) 01-02-2020 PENDING LOCAT ION 13:47-0400 [facility] (20687) COLONY COUNT <10,000 (no code) 01-02-2020 PENDING LOCAT ION 13:47-0400 [facility] (86374) SUSCEPTIBILITY SEE COMMENTS (no code) 01-02-2020 PENDING LO CATION 13:47-0400 [facility] (36035) laboratory on 2020-01-02 Albumin 3.5 g/dL (NEG) 3.4 - 5.4 g/dL 01-02-2020 PENDING LOCATION [Mass/Vol] 13:35-0400 [facility] (69813) ALP [Catalytic 91 U/L (NEG) 44 - 147 U/L 01-02-2020 PEND ING LOCATION activity/Vol] 13:35-0400 [facility] (90905) ALT [Catalytic 21 U/L (NEG) 4 - 40 U/L 01-02-2020 PENDIN G LOCATION activity/Vol] 13:35-0400 [facility] (49096) Amorphous MOD FRANCIS URATES (A) 01-02-2020 PENDING LO CATION sediment LM Ql 13:47-0400 [facility] (84977) (Urine sed) Anion gap 10 mmol/L (NEG) 3 - 11 mmol/L 01-02-2020 PENDING LOCATION [Moles/Vol] 13:35-0400 [facility] (71792) aPTT Coag (PPP) 34 s (NEG) 25 - 35 s 01-02-2020 PENDIN G LOCATION [Time] 13:35-0400 [facility] (57038) AST [Catalytic 13 U/L (NEG) 10 - 34 U/L 01-02-2020 PENDI NG LOCATION activity/Vol] 13:35-0400 [facility] (71882) Bacteria NG (no code) 01-02-2020 PENDING LOCATI ON identified Cx 13:35-0400 [facility] ([id number]) Nom (Bld) Bacteria PROGRESS (no code) 01-02-2020 PENDING LOCATI ON identified Cx 13:47-0400 [facility] (92164) Nom (U) Bacteria [id number] (no code) 01-02-2020 PENDING LOCATI ON identified Cx 13:47-0400 [facility] (03120) Nom (U) Bacteria LM Ql Negative (no code) 01-02-2020 PENDING LOC ATION (Urine sed) 13:47-0400 [facility] ([id number]) Basophils (Bld) 0.0 10*3/uL (NEG) 0 - 0.3 10*3/uL 01-02-2020 PENDING LOCATION [#/Vol] 13:35-0400 [facility] (00675) Basophils/100 0 % (NEG) 0.5 - 1 % 01-02-2020 PENDING LOCATION WBC (Bld) 13:35-0400 [facility] (03092) Bilirubin 0.6 mg/dL (NEG) 0.1 - 1.2 mg/dL 01-02-2020 PENDIN G LOCATION [Mass/Vol] 13:35-0400 [facility] (20583) Bilirubin Ql (U) Negative (no code) 01-02-2020 PENDING L OCATION 13:47-0400 [facility] (41203) Calcium 8.7 mg/dL (NEG) 8.5 - 10.2 mg/dL 01-02-2020 PENDI NG LOCATION [Mass/Vol] 13:35-0400 [facility] (17328) Calcium 9.1 mg/dL (NEG) 8.5 - 10.2 mg/dL 01-02-2020 PENDI NG LOCATION [Mass/Vol] 13:35-0400 [facility] (76816) Casts LM Ql NONE (no code) 01-02-2020 PENDING LOCATI ON (Urine sed) 13:47-0400 [facility] (39138) Chloride 95 mmol/L (L) 95 - 106 mmol/L 01-02-2020 PENDIN G LOCATION [Moles/Vol] 13:35-0400 [facility] (77464) Clarity (U) CLEAR (no code) 01-02-2020 PENDING LOCATI ON 13:47-0400 [facility] (30882) CO2 [Moles/Vol] 22 mmol/L (NEG) 23 - 29 mmol/L 01-02-2020 P ENDING LOCATION 13:35-0400 [facility] (42927) Color (U) YELLOW (no code) 01-02-2020 PENDING LOCATI ON 13:47-0400 [facility] (60915) Creatinine 2.00 mg/dL (H) 01-02-2020 PENDING LOCATI ON [Mass/Vol] 13:35-0400 [facility] (23306) Creatinine and 33 (no code) 01-02-2020 PENDING LOC ATION Glomerular 13:35-0400 [facility] ([id number]) filtration rate.predicted panel - Serum, Plasma or Blood CRP [Mass/Vol] 6.91 (H) 01-02-2020 PENDING LOC ATION 13:35-0400 [facility] (38650) Crystals LM Ql PRESENT (A) 01-02-2020 PENDING LOC ATION (Urine sed) 13:47-0400 [facility] (44881) Eosinophils 0.1 10*3/uL (NEG) 0.05 - 0.5 01-02-2020 PENDING LOCATION (Bld) [#/Vol] 10*3/uL 13:35-0400 [facility] (46599) Eosinophils/100 1 % (NEG) 1 - 4 % 01-02-2020 PENDIN G LOCATION WBC (Bld) 13:35-0400 [facility] (07261) Erythrocyte 14.9 % (H) 11.6 - 14.6 % 01-02-2020 PENDIN G LOCATION distribution 13:35-0400 [facility] (39945) width (RBC) [Ratio] Glucose 543 mg/dL (HH) 60 - 125 mg/dL 01-02-2020 PENDING LOCATION [Mass/Vol] 13:27-0400 [facility] (83419) Glucose 608 mg/dL (HH) 60 - 125 mg/dL 01-02-2020 PENDING LOCATION [Mass/Vol] 13:35-0400 [facility] (99948) Glucose Auto 3+ (A) 01-02-2020 PENDING LOCAT ION test strip Ql 13:47-0400 [facility] (27040) (U) Hematocrit (Bld) 32 % (L) 36.1 - 50.3 % 01-02-2020 P ENDING LOCATION [Volume 13:35-0400 [facility] (22552) fraction] Hemoglobin (Bld) 11.0 g/dL (L) 12.1 - 17.2 g/dL 01-02-2020 PENDING LOCATION [Mass/Vol] 13:35-0400 [facility] (57065) INR Coag 1.2 (NEG) 01-02-2020 PENDING LOCATI ON (Platelet poor 13:35-0400 [facility] (10326) plasma or blood) [Relative time] Ketones Auto Negative (no code) 01-02-2020 PENDING LOCAT ION test strip Ql 13:47-0400 [facility] ([id number]) (U) Lactate 0.85 mmol/L (NEG) 0.5 - 2.2 mmol/L 01-02-2020 [facility] LOCATION [Moles/Vol] 13:35-0400 [facility] (91550) Leukocyte Negative (no code) 01-02-2020 PENDING LOCATI ON esterase Test 13:47-0400 [facility] (40529) strip Ql (U) Lymphocytes 0.9 10*3/uL (L) 0.9 - 2.9 01-02-2020 PENDING LOCATION (Bld) [#/Vol] 10*3/uL 13:35-0400 [facility] (14342) Lymphocytes/100 14 % (NEG) 20 - 40 % 01-02-2020 PENDIN G LOCATION WBC (Bld) 13:35-0400 [facility] (87023) MCH (RBC) 29 pg (NEG) 27 - 31 pg 01-02-2020 PENDING LOC ATION [Entitic mass] 13:35-0400 [facility] (12759) MCHC (RBC) 35 g/dL (NEG) 32 - 36 g/dL 01-02-2020 PENDING LOCATION [Mass/Vol] 13:35-0400 [facility] (17609) MCV (RBC) 83 (NEG) 01-02-2020 PENDING LOCATI ON [Entitic vol] 13:35-0400 [facility] (28624) Monocytes (Bld) 0.6 10*3/uL (NEG) 0.3 - 0.9 01-02-2020 PEND ING LOCATION [#/Vol] 10*3/uL 13:35-0400 [facility] (60551) Monocytes/100 10 % (NEG) 2 - 8 % 01-02-2020 PENDING LOCATION WBC (Bld) 13:35-0400 [facility] (98594) Mucus Ql (Urine Negative (no code) 01-02-2020 PENDING LO CATION sed) 13:47-0400 [facility] (99144) Natriuretic 228.9 pg/mL (H) 0 - 100 pg/mL 01-02-2020 PEND ING LOCATION peptide B (Bld) 13:35-0400 [facility] (85815) [Mass/Vol] Neutrophils 5.0 10*3/uL (NEG) 1.7 - 7 10*3/uL 01-02-2020 [facility] LOCATION (Bld) [#/Vol] 13:35-0400 [facility] (83306) Neutrophils/100 75 % (NEG) 40 - 60 % 01-02-2020 PENDIN G LOCATION WBC (Bld) 13:35-0400 [facility] (97906) Nitrite Ql (U) Negative (no code) 01-02-2020 PENDING LOC ATION 13:47-0400 [facility] (67748) pH (U) 5.5 [pH] (no code) 4.6 - 8 [pH] 01-02-2020 PENDING L OCATION 13:47-0400 [facility] (28422) Platelet mean 10.6 (H) 01-02-2020 PENDING LOCA TION volume (Bld) 13:35-0400 [facility] (87770) [Entitic vol] Platelets (Bld) 112 10*3/uL (L) 150 - 450 01-02-2020 PEND ING LOCATION [#/Vol] 10*3/uL 13:35-0400 [facility] (76774) Potassium 4.5 mmol/L (NEG) 3.7 - 5.2 mmol/L 01-02-2020 PEND ING LOCATION [Moles/Vol] 13:35-0400 [facility] (94452) Protein 6.6 g/dL (NEG) 6.4 - 8.3 g/dL 01-02-2020 PENDING LOCATION [Mass/Vol] 13:35-0400 [facility] (24580) Protein Ql (U) 1+ (A) 01-02-2020 PENDING LOC ATION 13:47-0400 [facility] (13214) PT Coag (PPP) 15.4 s (H) 9.4 - 12.5 s 01-02-2020 PENDI NG LOCATION [Time] 13:35-0400 [facility] (36338) RBC (Bld) 3.83 10*6/uL (L) 4.2 - 6.1 01-02-2020 PENDING L OCATION [#/Vol] 10*6/uL 13:35-0400 [facility] (33582) RBC LM.HPF RARE (no code) 01-02-2020 PENDING LOCATI ON (Urine sed) 13:47-0400 [facility] (74956) [#/Area] RBC Ql (U) Negative (no code) 01-02-2020 PENDING LOCATI ON 13:47-0400 [facility] (02034) Sodium 127 mmol/L (L) 135 - 145 mmol/L 01-02-2020 PEND ING LOCATION [Moles/Vol] 13:35-0400 [facility] (07940) Specific gravity <= (no code) 01-02-2020 PENDING L OCATION (U) [Rel 13:47-0400 [facility] (34460) density] Urea nitrogen 33 mg/dL (H) 7 - 20 mg/dL 01-02-2020 PENDI NG LOCATION [Mass/Vol] 13:35-0400 [facility] (97161) Urea 17 mg/mg (no code) 6 - 22 mg/mg 01-02-2020 PENDING L OCATION nitrogen/Creatin 13:35-0400 [facility] (82649) ine [Mass ratio] Urobilinogen (U) 0.2 mg/dL (no code) 01-02-2020 PENDING L OCATION [Mass/Vol] 13:47-0400 [facility] (24605) WBC (Bld) 6.7 10*3/uL (NEG) 3.5 - 10.5 01-02-2020 PENDING L OCATION [#/Vol] 10*3/uL 13:35-0400 [facility] (83035) WBC LM.HPF RARE (no code) 01-02-2020 PENDING LOCATI ON (Urine sed) 13:47-0400 [facility] (68815) [#/Area] laboratory on 2019-04-19 INR Coag 2.3 (no code) 04-19-2019 Hospital (Platelet poor 14:10-0400 [facility] plasma or blood[facility] [Relative time] (42721) PT Coag (PPP) 27.4 s (H) 9.4 - 12.5 s 04-19-2019 [facility] [Time] 14:10-0400 [facility] ([id number]) laboratory on 2019-03-31 INR Coag 1.3 (no code) 03-31-2019 Hospital (Platelet poor 11:40-0400 [facility] plasma or blood) [facility] [Relative time] (62244) PT Coag (PPP) 14.7 s (H) 9.4 - 12.5 s 03-31-2019 [facility] [Time] 11:40-0400 [facility] (90154) laboratory on 2019-03-22 INR Coag 1.2 (no code) 03-22-2019 Hospital (Platelet poor 12:20-0400 [facility] plasma or blood) [facility] [Relative time] (66313) PT Coag (PPP) 13.5 s (H) 9.4 - 12.5 s 03-22-2019 [facility]pi [facility] [Time] 12:20-0400 [facility] (50408) capillary blood glucose measurement by glucometer (mass/volume) on 2018-04-08 Glucose mass 336 mg/dL (H) 60 - 125 mg/dL Via [facility] (74890) venous blood hemoglobin measurement (mass/volume) on 2018-04-07 Hemoglobin mass 12.4 g/dL (L) 12.1 - 17.2 g/dL Via [facility] (d) [facility] (67826) serum or plasma urea nitrogen/creatin ine mass ratio on 2018-04-07 Urea 20 mg/mg (no code) 6 - 22 mg/mg Via [facility] nitrogen/Creatin Hospital ine mass ratio [place] ([address]01) serum or plasma urea nitrogen measurement (mass/volume) on 2018-04-07 Urea nitrogen 26 mg/dL (H) 7 - 20 mg/dL Via [facility] (67276) serum or plasma sodium measurement (moles/volume) on 2018-04-07 Sodium molar 135 mmol/L (no code) 135 - 145 mmol/L Via [facility] (41570) serum or plasma potassium measurement (moles/volume) on 2018-04-07 Potassium molar 4.4 mmol/L (no code) 3.7 - 5.2 mmol/L Via [facility] (54664) serum or plasma glucose measurement (mass/volume) on 2018-04-07 Glucose mass 279 mg/dL (H) 60 - 125 mg/dL Via [facility] (12761) serum or plasma creatinine measurement with calculation of estimated glomerular filtration rate on 2018-04-07 GFR/1.73 sq M 54 (no code) 90 - 120 Via [facility] among mL/min/{1.73_m2} mL/min/{1.73_m2} [facility] non-blacks MDRD [place] vol rate/area (66261) (S/P/Bld) serum or plasma creatinine measurement (mass/volume) on 2018-04-07 Creatinine mass 1.33 mg/dL (H) Via [facility] (55616) serum or plasma chloride measurement (moles/volume) on 2018-04-07 Chloride molar 103 mmol/L (no code) 95 - 106 mmol/L Via [facility] (55812) serum or plasma calcium measurement (mass/volume) on 2018-04-07 Calcium mass 9.2 mg/dL (no code) 8.5 - 10.2 mg/dL Via [facility] (02889) serum or plasma anion gap determination (moles/volume) on 2018-04-07 Anion gap 3 11 mmol/L (no code) 3 - 11 mmol/L Via [facility] ([id number]) carbon dioxide on 2018-04-07 CO2 molar conc 21 mmol/L (no code) 23 - 29 mmol/L Via [facility] ([id number]) blood neutrophils automated count (number/volume) on 2018-04-07 Neutrophils Auto 4.0 10*3/uL (no code) 1.7 - 7 10*3/uL Via [facility] #/vol (Bld) [facility] ([id number]) blood monocytes/100 leukocytes on 2018-04-07 Monocytes/100 12 % (no code) 2 - 8 % Via [facility] WBC Auto (Bld) [facility] ([id number]) blood monocytes automated count (number/volume) on 2018-04-07 Monocytes Auto 0.8 10*3/uL (no code) 0.3 - 0.9 Via [facility] #/vol (Bld) 10*3/uL [facility] ([id number]) blood lymphocytes automated count (number/volume) on 2018-04-07 Lymphocytes Auto 1.6 10*3/uL (no code) 0.9 - 2.9 Via [facility] ti #/vol (Bld) 10*3/uL [facility] ([id number]) blood leukocytes automated count (number/volume) on 2018-04-07 WBC Auto #/vol 6.4 10*3/uL (no code) 3.5 - 10.5 Via [facility] (Bld) 10*3/uL [facility] ([id number]) blood hematocrit (volume fraction) on 2018-04-07 Hematocrit Auto 35 % (L) 36.1 - 50.3 % Via [facility] isti Volume Fraction [facility] [place] () blood erythrocytes automated count (number/volume) on 2018-04-07 RBC Auto #/vol 3.89 10*6/uL (L) 4.2 - 6.1 Via [facility] i (Bld) 10*6/uL [facility] () automated erythrocyte mean corpuscular volume on 2018-04-07 MCV Auto Entitic 89 fL (no code) 80 - 100 fL Via [facility] sti volume (RBC) [facility] ([id number]) automated erythrocyte mean corpuscular hemoglobin concentration measurement (mass/volume) on 2018-04-07 MCHC Auto mass 36 g/dL (no code) 32 - 36 g/dL Via [facility] ti conc (RBC) [facility] ([id number]) automated erythrocyte mean corpuscular hemoglobin (mass per erythrocyte) on 2018-04-07 MCH Auto Entitic 32 pg (no code) 27 - 31 pg Via [facility] ti mass (RBC) [facility] ([id number]) automated erythrocyte distribution width ratio on 2018-04-07 Erythrocyte 15.4 % (H) 11.6 - 14.6 % Via [facility] distribution Hospital width Auto Ratio [place] (RBC) ([id number]) automated eosinophil count on 2018-04-07 Eosinophils Auto 0.1 10*3/uL (no code) 0.05 - 0.5 Via [facility] ti #/vol (Bld) 10*3/uL [facility] ([id number]) automated blood platelet mean volume measurement on 2018-04-07 Platelet mean 10.7 fL (H) 7.2 - 11.7 fL [facility][id number][facility] blood platelet count (count/volume) on 2018-04-07 Platelets Auto 135 10*3/uL (no code) 150 - 450 Via [facility] #/vol (Bld) 10*3/uL [facility] ([id number]) automated blood neutrophils/100 leukocytes on 2018-04-07 Neutrophils/100 62 % (no code) 40 - 60 % [facility] i WBC Auto (Bld) [facility] ([id number]) automated blood lymphocytes/100 leukocytes on 2018-04-07 Lymphocytes/100 25 % (no code) 20 - 40 % [facility] i WBC Auto (Bld) [facility] ([id number]) automated blood eosinophils/100 leukocytes on 2018-04-07 Eosinophils/100 2 % (no code) 1 - 4 % [facility] i WBC Auto (Bld) [facility] ([id number]) automated blood basophils/100 leukocytes on 2018-04-07 Basophils/100 0 % (no code) 0.5 - 1 % Via [facility] WBC Auto (Bld) [facility] ([id number]) automated blood basophil count (count/volume) on 2018-04-07 Basophils Auto 0.0 10*3/uL (no code) 0 - 0.3 10*3/uL Via [facility] #/vol (Bld) [facility] ([id number]) serum or plasma total bilirubin measurement (mass/volume) on 2018-04-06 Bilirubin mass 1.0 mg/dL (no code) 0.1 - 1.2 mg/dL Via [facility] conc [facility] ([id number]) serum or plasma protein measurement (mass/volume) on 2018-04-06 Protein mass 6.4 g/dL (no code) 6.4 - 8.3 g/dL Via [facility] ([id number]) serum or plasma aspartate aminotransferase measurement (enzymatic activity/volume) on 2018-04-06 AST enzyme 14 U/L (no code) 10 - 34 U/L Via [facility] ([id number]) serum or plasma alkaline phosphatase measurement (enzymatic activity/volume) on 2018-04-06 ALP enzyme 68 U/L (no code) 44 - 147 U/L Via [facility] ([id number]) serum or plasma albumin measurement (mass/volume) on 2018-04-06 Albumin mass 3.7 g/dL (no code) 3.4 - 5.4 g/dL Via [facility] ([id number]) serum or plasma alanine aminotransferase measurement (enzymatic activity/volume) on 2018-04-06 ALT enzyme 24 U/L (no code) 4 - 40 U/L Via [facility] ([id number]) calcium measurement corrected for albumin on 2018-04-06 Calcium mass 9.1 mg/dL (no code) 8.5 - 10.2 mg/dL Via [facility] ([id number]) urine urobilinogen measurement by automated test strip (mass/volume) on 2018-04-05 Urobilinogen NORMAL (no code) Via [facility] Test strip [facility] ([id number]) urine total bilirubin detection by test strip on 2018-04-05 Bilirubin Ql (U) Negative (no code) Via [facility] ([id number]) urine protein assay by test strip, semi-quantitativ e on 2018-04-05 Protein Test 3+ (*) Via [facility] strip ([facility] ([id number]) urine ph measurement by test strip on 2018-04-05 pH Test strip 5 [pH] (no code) 4.6 - 8 [pH] Via [facility] ([facility] ([id number]) urine nitrite detection by test strip on 2018-04-05 Nitrite Test Negative (no code) Via [facility] strip ([facility] ([id number]) urine ketones detection by automated test strip on 2018-04-05 Ketones 1+ (*) Via [facility] Automated test Hospital strip ([facility] () urine glucose detection by automated test strip on 2018-04-05 Glucose 4+ (*) Via [facility] Automated test Hospital strip Ql (U) [place] ([id number]) urine color determination on 2018-04-05 Color Nom (U) YELLOW (no code) Via [facility] ([id number]) urine clarity determination on 2018-04-05 Clarity Nom (U) CLEAR (no code) Via [facility] ([id number]) squamous epithelial cells detection in urine sediment by light microscopy on 2018-04-05 Epithelial no information (no code) Via [facility] cells.[facility]amous Hospital LM Ql (Urine [place] sed) ([id number]) specific gravity of urine by test strip on 2018-04-05 Specific gravity 1.020 (no code) Via [facility] Relative Density [facility] (U) [place] ([address]310) serum or plasma lactate measurement (moles/volume) on 2018-04-05 Lactate molar 1.68 mmol/L (no code) 0.5 - 2.2 mmol/L Via [facility] ([id number]) serum or plasma c reactive protein measurement (mass/volume) on 2018-04-05 CRP mass conc 4.06 mg/L (H) 0 - 8 mg/L Via [facility] ([id number]) prothrombin time (pt) in platelet poor plasma by coagulation assay on 2018-04-05 Prothrombin time 14.1 s (no code) 9.4 - 12.5 s Via [facility] is (PT) Coag time [facility] (PPP) [place] ([id number]) mucus detection in urine sediment by light microscopy on 2018-04-05 Mucus LM Ql Negative (no code) Via [facility] (Urine sed) [facility] ([id number]) lipase on 2018-04-05 Lipase enzyme 35 U/L (no code) 10 - 73 U/L Via [facility] act/vol [facility] (93830) leukocyte esterase on 2018-04-05 Leukocyte 1+ (*) Via [facility] esterase Test Hospital strip Ql (U) [place] (72649) inr in platelet poor plasma or blood by coagulation assay on 2018-04-05 INR Coag RelTime 1.1 (no code) Via [facility] (Platelet poor Hospital plasma or blood) [place] ([id number]) erythrocytes detection in urine sediment by light microscopy on 2018-04-05 RBC LM Ql (Urine Negative (no code) Via [facility] sed) [facility] (90674) crystals detection in urine sediment by light microscopy on 2018-04-05 Crystals LM Ql PRESENT (*) Via [facility] (Urine sed) [facility] ([id number]) complete urinalysis with reflex to culture on 2018-04-05 Complete NO (no code) Via [facility] urinalysis with Hospital reflex to [place] culture ([id number]) casts detection in urine sediment by light microscopy on 2018-04-05 Casts LM Ql NONE (no code) Via [facility] (Urine sed) [facility] (98960) blood lactic acid measurement (moles/volume) on 2018-04-05 Lactate molar 2.34 mmol/L (CH) 0.5 - 2.2 mmol/L Via [facility] ([id number]) bacterial urine culture on 2018-04-05 Bacteria NO GROWTH (no code) Via [facility] identified [facility] Nom (U) [place] ([id number]) bacterial blood culture on 2018-04-05 Bacteria No growth (no code) Via [facility] (Bld) [place] (24827) bacteria detection in urine sediment by light microscopy on 2018-04-05 Bacteria LM Ql NONE (no code) Via [facility] (Urine sed) [facility] (92474) automated urine sediment leukocyte count by microscopy (number/high power field) on 2018-04-05 WBC LM.HPF no information (no code) Via [facility] #/area (Urine [facility]) [place] ([id number]) automated urine sediment erythrocyte count by microscopy (number/high power field) on 2018-04-05 RBC LM.HPF NONE (no code) Via [facility] #/area (Urine [facility]) [place] (90341) amorphous sediment detection in urine sediment by light microscopy on 2018-04-05 Amorphous MOD FRANCIS URATES (*) Via [facility] sediment LM Ql [facility] (Urine sed) [place] (49351) activated partial thromboplastin time (aptt) in platelet poor plasma bycoagulation assay on 2018-04-05 aPTT Coag time 27 s (no code) 25 - 35 s Via [facility] (Bld) [facility] (45746) venous blood hemoglobin measurement (mass/volume) on 2018-02-09 Hemoglobin (HGB) 15.4 g/dL (no code) 12 - 18 g/dL Via [facility] ([id number]) urine urobilinogen measurement by automated test strip (mass/volume) on 2018-02-09 Urine, NORMAL (no code) Via [facility] urobilinogen [facility] (93534) urine total bilirubin detection by test strip on 2018-02-09 Urine, bilirubin Negative (no code) Via [facility] (33588) urine protein assay by test strip, semi-quantitativ e on 2018-02-09 Urine, protein 3+ (*) Via [facility] (64789) urine ph measurement by test strip on 2018-02-09 Urine, pH 6 [pH] (no code) 4.6 - 8 [pH] Via [facility] (87234) urine nitrite detection by test strip on 2018-02-09 Urine, nitrite Negative (no code) Via [facility] (68489) urine ketones detection by automated test strip on 2018-02-09 Urine, ketones 3+ (*) Via [facility] (42000) urine glucose detection by automated test strip on 2018-02-09 Urine, glucose 4+ (*) Via [facility] (56143) urine color determination on 2018-02-09 Urine, color YELLOW (no code) Via [facility] ([id number]) urine clarity determination on 2018-02-09 Urine, clarity CLEAR (no code) Via [facility] (41891) squamous epithelial cells detection in urine sediment by light microscopy on 2018-02-09 Urine, squamous NONE (no code) Via [facility] cells [facility] in sediment [place] (39298) specific gravity of urine by test strip on 2018-02-09 Urine, specific 1.020 (no code) Via [facility] gravity [facility] (56604) serum or plasma urea nitrogen/creatin ine mass ratio on 2018-02-09 BUN/Creatinine 17 mg/mg (no code) 10 - 20 mg/mg Via [facility] sti [facility] (73055) serum or plasma urea nitrogen measurement (mass/volume) on 2018-02-09 Urea nitrogen 22 mg/dL (H) 7 - 20 mg/dL Via [facility] (94430) serum or plasma troponin i.cardiac measurement (mass/volume) on 2018-02-09 Troponin I no information (no code) Via [facility] (40468) serum or plasma total bilirubin measurement (mass/volume) on 2018-02-09 Bilirubin 1.2 mg/dL (H) 0.3 - 1.9 mg/dL Via [facility] (total) [facility] (35562) serum or plasma thyrotropin measurement by detection limit <=0.05 miu/l (units/volume) on 2018-02-09 Thyroid 1.93 m[IU]/L (no code) 0.4 - 4 m[IU]/L Via [facility] hormone (TSH) [place] (62504) serum or plasma sodium measurement (moles/volume) on 2018-02-09 Sodium 137 mmol/L (no code) 135 - 147 mmol/L Via [facility] (07106) serum or plasma protein measurement (mass/volume) on 2018-02-09 Protein 7.4 g/dL (no code) 6.4 - 8.3 g/dL Via [facility] ([id number]) serum or plasma potassium measurement (moles/volume) on 2018-02-09 Potassium 4.1 mmol/L (no code) 3.5 - 5.1 mmol/L Via [facility] (85974) serum or plasma glucose measurement (mass/volume) on 2018-02-09 Glucose 251 mg/dL (H) 60 - 125 mg/dL Via [facility] ([id number]) serum or plasma creatinine measurement with calculation of estimated glomerular filtration rate on 2018-02-09 eGFR (non-black) 54 (no code) 90 - [id number] Via [facility] mL/min/{1.73_m2} mL/min/{1.73_m2} [facility] (54595) serum or plasma creatinine measurement (mass/volume) on 2018-02-09 Creatinine 1.32 mg/dL (H) Via [facility] (35200) serum or plasma chloride measurement (moles/volume) on 2018-02-09 Chloride 103 mmol/L (no code) 95 - 106 mmol/L Via [facility] (16478) serum or plasma calcium measurement (mass/volume) on 2018-02-09 Calcium 9.9 mg/dL (no code) 9 - 11 mg/dL Via [facility] (35239) serum or plasma aspartate aminotransferase measurement (enzymatic activity/volume) on 2018-02-09 Aspartate 28 U/L (no code) 10 - 34 U/L Via [facility] aminotransferase [facility] (AST) [place] (67501) serum or plasma anion gap determination (moles/volume) on 2018-02-09 Anion gap 14 mmol/L (no code) 3 - 11 mmol/L Via [facility] (62654) serum or plasma amylase measurement (enzymatic activity/volume) on 2018-02-09 Amylase 24 U/L (L) 23 - 85 U/L Via [facility] ([id number]) serum or plasma alkaline phosphatase measurement (enzymatic activity/volume) on 2018-02-09 Alkaline 77 U/L (no code) 44 - 147 U/L Via [facility] phosphatase [facility] (ALP) [place] (45535) serum or plasma albumin measurement (mass/volume) on 2018-02-09 Albumin 4.3 g/dL (no code) 3.5 - 5.5 g/dL Via [facility] (61236) serum or plasma alanine aminotransferase measurement (enzymatic activity/volume) on 2018-02-09 Alanine 39 U/L (no code) 10 - 40 U/L Via [facility] aminotransferase [facility] (ALT) [place] (94510) serum or plasma acetaminophen measurement (mass/volume) on 2018-02-09 Serum or plasma no information (L) Via [facility] acetaminophen Hospital measurement [place] (mass/volume) (93076) prothrombin time (pt) in platelet poor plasma by coagulation assay on 2018-02-09 Coagulation 13.4 s (no code) Via [facility] tissue factor [facility] induced in [place] platelet poor (32396) plasma myoglobin, serum on 2018-02-09 Myoglobin 82.7 ng/mL (no code) Via [facility] (56293) mucus detection in urine sediment by light microscopy on 2018-02-09 Urine, mucus Negative (no code) Via [facility] presence in Hospital sediment [place] (54047) magnesium on 2018-02-09 Magnesium 2.3 mg/dL (no code) 1.8 - 3.6 mg/dL Via [facility] (06414) lipase on 2018-02-09 Lipase 30 U/L (no code) 23 - 300 U/L Via [facility] (68127) leukocyte esterase on 2018-02-09 Urine, leukocyte 1+ (*) Via [facility] esterase [facility] (18532) inr in platelet poor plasma or blood by coagulation assay on 2018-02-09 INR in blood by 1.0 {INR} (no code) 0.9 - 1.1 {INR} Via C hristi coagulation [facility] (98819) erythrocytes detection in urine sediment by light microscopy on 2018-02-09 Urine, Negative (no code) Via [facility] erythrocytes [facility] (40070) crystals detection in urine sediment by light microscopy on 2018-02-09 Urine, crystals NONE (no code) Via [facility] presence in [facility] sediment [place] (30169) complete urinalysis with reflex to culture on 2018-02-09 Complete NO (no code) Via [facility] urinalysis with Hospital reflex to [place] culture (47087) casts detection in urine sediment by light microscopy on 2018-02-09 Urine, casts in NONE (no code) Via [facility] (03867) carbon dioxide on 2018-02-09 CO2 20 mmol/L (L) 23 - 29 mmol/L Via [facility] (16719) blood neutrophils automated count (number/volume) on 2018-02-09 Neutrophils 5.4 10*3/uL (no code) 1.5 - 7.8 Via [facility] 10*3/uL [facility] (75382) blood monocytes/100 leukocytes on 2018-02-09 Monocytes/100 9 % (no code) 2 - 8 % Via [facility] leukocytes [facility] (39644) blood monocytes automated count (number/volume) on 2018-02-09 Monocytes 0.7 10*3/uL (no code) 0.2 - 1.1 Via [facility] 10*3/uL [facility] ([id number]) blood lymphocytes automated count (number/volume) on 2018-02-09 Lymphocytes 1.8 10*3/uL (no code) 0.85 - 4.1 Via [facility] 10*3/uL [facility] (76770) blood leukocytes automated count (number/volume) on 2018-02-09 WBC (Leukocytes) 8.1 10*3/uL (no code) 3.8 - 10.8 Via [facility] 10*3/uL [facility] (21628) blood hematocrit (volume fraction) on 2018-02-09 Hematocrit (HCT) 43 % (no code) 39 - 51 % Via [facility] (73761) blood erythrocytes automated count (number/volume) on 2018-02-09 Erythrocytes 4.93 10*6/uL (no code) 4.2 - 6.1 Via [facility] (RBC) 10*6/uL [facility] (09237) bacteria detection in urine sediment by light microscopy on 2018-02-09 Urine, bacteria FEW (*) Via [facility] in sediment [facility] (80409) automated urine sediment leukocyte count by microscopy (number/high power field) on 2018-02-09 Urine, RARE (no code) [facility] leukocytes [facility]1998[facility] automated urine sediment erythrocyte count by microscopy (number/high power field) on 2018-02-09 Urine, NONE (no code) Via [facility] erythrocytes in [facility] sediment [facility] (11124) automated erythrocyte mean corpuscular volume on 2018-02-09 MCV 87 fL (no code) 80 - 100 fL Via [facility] (84607) automated erythrocyte mean corpuscular hemoglobin concentration measurement (mass/volume) on 2018-02-09 MCHC 36 g/dL (no code) 32 - 36 g/dL Via [facility] (25030) automated erythrocyte mean corpuscular hemoglobin (mass per erythrocyte) on 2018-02-09 MCH 31 pg (no code) 27 - 31 pg Via [facility] (43511) automated erythrocyte distribution width ratio on 2018-02-09 RDW-CA 15.3 % (H) 11 - 15 % Via [facility] (52644) automated eosinophil count on 2018-02-09 Eosinophils 0.1 10*3/uL (no code) 0.05 - 1.5 Via [facility] 10*3/uL [facility] (45777) automated blood platelet mean volume measurement on 2018-02-09 Platelet mean 10.5 fL (H) 7.2 - 11.7 fL Via [facility] volume (PMV) [facility] (21802) automated blood platelet count (count/volume) on 2018-02-09 Platelets 157 10*3/uL (no code) 150 - 400 Via [facility] 10*3/uL [facility] (32314) automated blood neutrophils/100 leukocytes on 2018-02-09 Neutrophils/100 67 % (no code) 40 - 60 % Via [facility] (09688) automated blood lymphocytes/100 leukocytes on 2018-02-09 Lymphocytes/100 22 % (no code) 20 - 40 % Via [facility] (29340) automated blood eosinophils/100 leukocytes on 2018-02-09 Eosinophils/100 1 % (no code) 1 - 4 % Via [facility] (69765) automated blood basophils/100 leukocytes on 2018-02-09 Basophils/100 0 % (no code) 0.5 - 1 % Via [facility] (18098) automated blood basophil count (count/volume) on 2018-02-09 Basophils 0.0 10*3/uL (no code) 0 - 0.2 10*3/uL Via [facility] ([id number]) activated partial thromboplastin time (aptt) in platelet poor plasma bycoagulation assay on 2018-02-09 aPTT 28 s (no code) 25 - 35 s Via [facility] (39896) Vital Signs The data below is from unstructured sources Vital Response Date/Time Temperature (Fahrenheit) 97.0 degree s F (97.6 - 99.5) 11/13/2016 10:30am Temperature (Calculated Celsius) 36. 04116 degrees C (36.4 - 37.5) 11/13/2016 8:16am [...] inches 11/10/2016 2:00pm Height (Calculated Centimeters) 180. 076344 cm 11/10/2016 2:00pm Weight (Pounds) 350 pounds 11/10/2016 2:00pm Weight (Ounces) 0.0 oz 0 11/10/2016 2:00pm Weight (Calculated Grams) 154232.33 gm 11/10/2016 2:00pm Weight (Calculated Kilograms) 158.75 7331 kilograms 11/10/2016 2:00pm Calculated BMI 48.8 10/31 2:00pm Capillary Refill Capillary Refill Less Than 3 Seconds 11/10/2016 9:44am Vital Response Date/Time Temperature (Fahrenheit) 97.9 degree s F (97.6 - 99.5) 11/18/2016 12:36pm Temperature (Calculated Celsius) 36. 10584 degrees C (36.4 - 37.5) 11/18/2016 5:09am [...] inches 11/13/2016 10:32pm Height (Calculated Centimeters) 180. 234952 cm 11/13/2016 10:32pm Weight (Pounds) 350 pounds 11/18/2016 5:13am Weight (Ounces) 0.0 oz 0 11/13/2016 10:32pm Weight (Calculated Grams) 734491.331 gm 11/18/2016 5:13am Weight (Calculated Kilograms) 158.75 7331 kilograms 11/18/2016 5:13am Calculated BMI 48.8 10/31 10:32pm Capillary Refill Capillary Refill Less Than 3 Seconds 11/10/2016 9:44am Vital Response Date/Time Temperature (Fahrenheit) 97.8 degree s F (97.6 - 99.5) 08/07/2015 1:55pm Temperature (Calculated Celsius) 36. 38772 degrees C (36.4 - 37.5) 08/07/2015 1:55pm [...] inches 08/07/2015 7:23am Height (Calculated Centimeters) 182. 412643 cm 08/07/2015 7:23am Weight (Pounds) 345 pounds 08/07/2015 7:23am Weight (Calculated Grams) 008163.369 gm 08/07/2015 7:23am Weight (Calculated Kilograms) 156.48 9369 kilograms 08/07/2015 7:23am Calculated BMI 46.78 01/2016 7:23am Vital Response Date/Time Temperature (Fahrenheit) 97.8 degree s F (97.6 - 99.5) Temperature (Calculated Celsius) 36. 87095 degrees C (36.4 - 37.5) Temperature Source Tympanic Pulse Rate (adult) 63 bpm (60 - 90) Respiratory Rate 20 bpm (12 - 24) O2 Sat by Pulse Oximetry 96 % (88 - 100) Blood Pressure 130/83 mm Hg Pain Pain Intensity 0 Height (Feet) 6 feet Height (Inches) 0.00 inches Height (Calculated Centimeters) 182. 177591 cm Weight (Pounds) 335 pounds Weight (Ounces) 0.5 oz Weight (Calculated Grams) 979822.620 gm Weight (Calculated Kilograms) 151.96 7620 kilograms Calculated BMI 45.43 Vital Response Date/Time Temperature (Fahrenheit) 98.0 degree s F (97.6 - 99.5) 02/09/2018 2:37pm Temperature (Calculated Celsius) 36. 65567 degrees C (36.4 - 37.5) 02/09/2018 2:37pm [...] feet 06/2018 2:37pm Height (Calculated Centimeters) 182. 411694 cm 02/09/2018 2:37pm Weight (Pounds) 342 pounds 02/09/2018 2:37pm Weight (Calculated Grams) 578394.59 gm 02/09/2018 2:37pm Weight (Calculated Kilograms) 155.12 8592 kilograms 02/09/2018 2:37pm Weight Method Stated 06/2018 2:37pm Capillary Refill Capillary Refill Less Than 3 Seconds 02/09/2018 2:37pm Height 6 ft 0 in 018 2:37pm Weight 342 lb 02/09/2018 2:37pm Body Mass Index 46.4 kg/m^2 02/09/2018 2:37pm Vital Response Date/Time Temperature (Fahrenheit) 97.5 degree s F (97.6 - 99.5) 04/08/2018 8:00am Temperature (Calculated Celsius) 36. 48526 degrees C (36.4 - 37.5) 04/08/2018 8:00am [...] inches 04/06/2018 12:45am Height (Calculated Centimeters) 182. 104042 cm 04/06/2018 12:45am Height Method Stated 10/2017 3:44pm Weight (Pounds) 330 pounds 04/06/2018 12:45am Weight (Ounces) 0.0 oz 0 04/06/2018 12:45am Weight (Calculated Grams) 459382.48 gm 04/06/2018 12:45am Weight (Calculated Kilograms) 149.68 5484 kilograms 04/06/2018 12:45am Calculated BMI 44.8 11/2017 12:45am Weight Method Stated 10/2017 3:44pm Weight Measurement Method Built in [facility] 04/06/2018 12:45am Capillary Refill Capillary Refill Less Than 3 Seconds 04/07/2018 8:45pm Vital Response Date/Time Temperature (Fahrenheit) 97.5 degree s F (97.6 - 99.5) 04/08/2018 8:00am Temperature (Calculated Celsius) 36. 01790 degrees C (36.4 - 37.5) 04/08/2018 8:00am [...] inches 04/06/2018 12:45am Height (Calculated Centimeters) 182. 431469 cm 04/06/2018 12:45am Height Method Stated 10/2017 3:44pm Weight (Pounds) 330 pounds 04/06/2018 12:45am Weight (Ounces) 0.0 oz 0 04/06/2018 12:45am Weight (Calculated Grams) 619050.48 gm 04/06/2018 12:45am Weight (Calculated Kilograms) 149.68 5484 kilograms 04/06/2018 12:45am Calculated BMI 44.8 11/2017 12:45am Weight Method Stated 10/2017 3:44pm Weight Measurement Method Built in [facility] 04/06/2018 12:45am Capillary Refill Capillary Refill [...] Care Plan and Goals F/U with PCP Graciela nicolas as per home regimen Discharge Date 08/07/15 2:05pm Instructions/Education Provided CARD IAC CATH DISCHARGE INSTRUC Prescriptions See Medication Section Prescriptions Discharge Date 01/29/15 12:32pm Disposition 01 HOME, SELF-CARE Instructions/Education Provided Hypo natremia (GEN) Forms Provided PDI Medical Prescriptions See Medications Sectio n Referrals GIL KAHN DO (Uns pecified) 02/11/15 Address: [address] [place] [id number] Reason(s) for Referral: AT 11:00 AM CALL AND RESCHEDULE IF UNABLE TO KEEP APPOINTMENT DR KAHN WILL MAKE THE APPOINTMENT FOR THE REFERRAL FOR [facility] Discharge Date 02/09/18 6:46pm Disposition 02 XFER SHT-TRM HOSP Condition at Discharge Improved Prescriptions See Medication Section Referrals GIL KAHN DO Order Date: Primary Care Physician Address: [address] [place] [id number] Discharge Date 04/08/18 10:00am Disposition 62 DISC/XFER [...] [facility] patient visit (no phone) [facility] (no phone) 10-11-2019 Emergency department no information PRIMO MEJÍA (no [facility] patient visit phone) [facility] (no phone) 12-16-2018 Emergency department no information [...] no organization name - patient visit 07-08-2016 01-04-2020 Evaluation and no information GODFREY ZEPEDA DO (no [facility] management of phone) [facility] inpatient (no phone) 01-02-2020 Evaluation and no information RENNY Winter [facility] - management of (no phone) [facility] 01-04-2020 inpatient (no phone) 10-11-2019 Evaluation and no information ANTONIO MICHAELS MD (no [facility] - management of phone) [facility] 10-13-2019 inpatient (no phone) 10-11-2019 Evaluation and no information ANTONIO MICHAELS MD (no [facility] - management of phone) [facility] 10-13-2019 inpatient (no phone) 12-16-2018 Evaluation and [...] information no name no or ganization name 01-02-2020 Patient encounter no information RENNY Miller MD [facility] - procedure (no phone) [facility] 01-04-2020 (no phone) 10-11-2019 Patient encounter no information ANTONIO MICHAELS MD (no [facility] - [facility] phone) [facility] 10-13-2019 (no phone) 08-31-2019 Patient encounter no information ODILON ALEXANDER (no [facility] - procedure phone) [facility] 08-31-2019 (no phone) 08-29-2019 Patient encounter no [...] Payers Normalized Payer Value Medicare no information Urinalysis complete W Reflex Culture panel (U) 2020-01-02 Note Type Note Facility Urinalysis CULTURE PENDING (L) culture already in progress PENDING complete W LOCATION Reflex [facility] Culture (83332) panel (U) null Note Type Note Facility Note NAME: ELMO GARCIA ~MED REC#: [id number] ~ PENDING ~PHYSICIAN: ROSELYN FREEMAN PT ~Therapy Progress Note ~Patient adamantly declined LOCATION PT this a.m. stating, "I'm not doing an ything today." PT attempted to ~educate [facility] and encourage patient to participate to increase stre ngth, however, patient ([id number]) continued to ~refuse. ~1 ref (810) ~ ~ ~ ~ROSELYN FREEMAN PT Jan 04, 2020 09:06 ~ ~ ~<Created by ROSELYN FREEMAN PT> ~<Dorothy ctronically signed by ROSELYN FREEMAN PT> 01/04/20 0906 ~ ~ null Note Type Note Facility Note NAME: [facility] ~MED REC#: [id number] ~ PENDING ~PHYSICIAN: ROSELYN FREEMAN PT ~Therapy Progress Note ~Patient declined PT again LOCATION stating he is having trouble with his b lood sugar. Patient was sleeping ~upon PT [facility] entering room. Will attempt later today . ~1 ref ([phone]) ~ ~ ~ ~ROSELYN FREEMAN PT ([id number]) Jan 04, 2020 09:59 ~ ~ ~<Created by MARIVEL FREEMAN PT> ~<Electronically signed by ROSELYN FREEMAN PT> 01/04/20 1000 ~ ~ null Note Type Note Facility Note NAME: [facility] ~MED REC#: [id number] ~ PENDING ~PHYSICIAN: BETTY STRONG PT ~Therapy Progress Note ~P atient refused physical LOCATION therapy this afternoon. He says he is having a little trouble breathing, ~has [facility] his Cpap on, nurse notified. Patient en couraged to perform just exercises in bed () and he ~refuses. He says he could have done them yesterday but he cannot today. ~ ~ ~ ~BETTY STRONG PT Jan 05, 2020 15:0 4 ~ ~ ~<Created by BETTY STRONG PT> ~<Electronically signed by BETTY STRONG PT> 01/05/20 1504 ~ ~ Clinical Note Note Type Note Facility Note NAME: [facility] ~MED REC#: [id number] ~ PENDING ~PHYSICIAN: JOI DOAN RESPIRATORY CARE PROGRAM DIRECTOR ~Therapy Progress Note ~Pt refused PT Rx this LOCATION morning. Pt is NPO for Heart Cath Toe A mputation today. PT will check back~with [facility] pt to resume services tomorrow. ~ ~1 vi sit, no Rx rendered ~ ~ ~ ~JOI DOAN ([id number]) RESPIRATORY CARE PROGRAM DIRECTOR Jan 10, 2020 09:13 ~ ~ ~<Created by JOI DOAN RESPIRATORY CARE PROGRAM DIRECTOR> ~<Electronically signed by JOI DOAN RESPIRATORY CARE PROGRAM DIRECTOR> 01/10/20 0 913 ~ ~ Advance Directives Directive Response Recor ded Date/Time Advance Directives No 7:24am Health Care Power of Mobile Health Vehicle Operator No 08/07/15 7:24am Organ Donor Yes 08/07/15 7:24am Directive Response Recor ded Date/Time Advance Directives No 2:00pm Health Care Power of Mobile Health Vehicle Operator No 11/10/16 2:00pm Organ Donor Yes 11/10/16 2:00pm Resuscitation Status Full Code 11/10/16 2:00pm Directive Response Recor ded Date/Time Advance Directives No 12:20pm Health Care Power of Mobile Health Vehicle Operator No 11/13/16 12:20pm Organ Donor Yes 11/13/16 12:20pm Resuscitation Status Full Code 11/13/16 12:20pm Directive Response Recor ded Date/Time Advance Directives No 7:24am Health Care Power of Mobile Health Vehicle Operator No 08/07/15 7:24am Organ Donor Yes 08/07/15 7:24am Resuscitation Status Full Code 08/07/15 7:24am Directive Response Recor ded Date/Time Advance Directives No 7:30pm Health Care Power of Mobile Health Vehicle Operator No 01/23/15 7:30pm Organ Donor Yes 01/23/15 7:30pm Resuscitation Status Full Code 01/23/15 7:30pm Directive Response Recor ded Date/Time Advance Directives No 3:39pm Health Care Power of Mobile Health Vehicle Operator No 02/09/18 3:39pm Organ Donor Yes 02/09/18 3:39pm Resuscitation Status Full Code 02/09/18 3:39pm Directive Response Recor ded Date/Time Advance Directives No 11:45pm Health Care Power of Mobile Health Vehicle Operator No 04/05/18 11:45pm Organ Donor Yes 04/05/18 [...] weeks. Call for appointment. 2. [facility]. Activity as Tolerated: Yes Discharge Diet: ADA Diet (2000 SHANTAL ADA.) Care Plan Patient Instructions:: 1. Follow up Dr. Kahn in office 2 weeks. Call for appointment.2. Refer to [facility]. No hospital discharge instruction information [...] This clinical document has been generated using Write.my software that has been certified by the Office of the National Coordinator for Health Information Technology (ONC 15.99.04.3023.Diam.[id number]) and the National Committee for Crossing Supervisor (NCQA, as an eMeasure certified technology). FOR [...] and clinical context of patient data. In sophie tion, data may be omitted in some cases. CLINICAL DECISIONS SHOULD BE BASED ON T HE PRIMARY CLINICAL RECORDS. [facility] [employer] [facility]. provides no warranty or guara ntee of the accuracy or completeness of information in this document.The followi information is based on time limited clinical information
--- OUTSIDE RECORDS SUMMARY | 2020-01-10 11:17 | XMS REPORT | Continuity of Care Document ---
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 E66.01 MORBID (SEVERE) OBESITY DUE TO EXCESS CA 01/04/2020 RENNY PAINTING MD Ot E78.00 PURE HYPERCHOLESTEROLEMIA, UNSPECIFIED 01/04/2020 RENNY PAINTING MD Ot G47.30 SLEEP APNEA, UNSPECIFIED 01/04/2020 RENNY PAINTING MD Ot G89.29 OTHER CHRONIC PAIN 01/04/2020 RENNY PAINTING MD Ot I11.0 HYPERTENSIVE HEART DISEASE WITH HEART FA 01/04/2020 RENNY PAINTING MD, Ot I25.10 ATHSCL HEART DISEASE OF [place] CORONARY 01/04/2020 RENNY PAINTING MD, Ot I25.2 OLD MYOCARDIAL INFARCTION 01/04/2020 RENNY PAINTING MD Ot I50.9 HEART FAILURE, UNSPECIFIED 01/04/2020 RENNY PAINTING MD Ot J44.9 CHRONIC OBSTRUCTIVE PULMONARY DISEASE, U 01/04/2020 RENNY PAINTING MD Ot L97.519 NON-PRS CHRONIC ULCER OTH PRT RIGHT FOOT 01/04/2020 RENNY PAINTING MD Ot M19.90 UNSPECIFIED OSTEOARTHRITIS, UNSPECIFIED 01/04/2020 RENNY PAINTING MD Ot M54.9 DORSALGIA, UNSPECIFIED 01/04/2020 RENNY PAINTING MD Ot R29.6 REPEATED FALLS 01/04/2020 RENNY PAINTING MD Ot Z79.01 RESIDENTIAL (CURRENT) USE OF ANTICOAGULANT 01/04/2020 RENNY PAINTING MD Ot Z79.4 RESIDENTIAL (CURRENT) USE OF INSULIN 01/04/2020 RENNY PAINTING MD Ot Z79.82 RESIDENTIAL (CURRENT) USE OF ASPIRIN 01/04/2020 RENNY PAINTING MD Ot Z80.3 FAMILY HISTORY OF MALIGNANT NEOPLASM OF 01/04/2020 RENNY PAINTING MD Ot Z80.41 FAMILY HISTORY OF MALIGNANT NEOPLASM OF 01/04/2020 RENNY PAINTING MD Ot Z87.891 PERSONAL HISTORY OF NICOTINE DEPENDENCE 01/04/2020 RENNY PAINTING MD Ot Z88.8 ALLERGY STATUS TO OT DRUG/MEDS/BIOL SUB 01/04/2020 RENNY PAINTING MD Ot Z99.89 DEPENDENCE ON OTHER ENABLING MACHINES AN Procedures Code Description Performed By Per formed On 86.04 04/29/2012 [id number] DE TACHMENT AT RIGHT LOWER LEG, HIGH, [...] poor plasma by coag ulation assay - 04/05/18 15:55 Prothrombin time (PT) in platelet poor [...] Amorphous sediment detection in urine sediment by [facility] t microscopy MOD FRANCIS URATES NRG Bacterial [...] Automated erythrocyte mean corpuscular volume 83 [ [facility]] 80-99 Automated erythrocyte mean corpuscular h emoglobin (mass per erythrocyte) 30 pg 25-34 Automated erythrocyte mean corpuscular h emoglobin concentration measurement (mass/volume) 36 g/dL 32-36 Automated erythrocyte distribution width ratio 14. 8 % 10.0- 14.5 Automated blood platelet count (count/volume) 171 10*3/uL 130-400 Automated blood platelet mean volume measurement 10.1 [[facility]] 7.4-10.4 Automated blood neutrophils/100 leukocytes 78 % [...] minimum inhibitory concentration > NRG Minocycline susc KEYSAHWN <= NRG Complete blood count (CBC) with [...] glucose measurement by g lucometer (mass/volume) - 05/18/19 20:37 Capillary blood glucose measurement by glucometer [...] saad - 12/22/18 15:37 ABO+Rh group BP NRG Transfusion band number [id number] NRG Blood group antibody screen NEGATIVE NR G [...] blood basophil count (count/volume) 0.0 10*3/uL 0.0-0.1 [id number] - 12/26/18 06:54 [id number] SPECIMEN AVAILABLE [facility] Whole blood basic metabolic panel - 12/01 [...] FOR INFLUENZA A AND B ANTIGENS BY [facility] Complete blood count (CBC) with [...] culture - 10/12/19 16:40 Bacterial urine culture [id number] NRG COLONY COUNT >100,000/ML NRG FTX;REPORTABLE SUSCEPTIBILITY REPORTED 10/14 11:45 NRG FREE TEXT ENTRY 2 PRELIM RAPID ID TEST AT [facility] 10/12 9:55 NRG FREE TEXT ENTRY 3 [...] 01/02/20 17:35 BNP PT 228.9 pg/mL <100.0 Bacterial blood culture - 01/02/20 17:35 Bacterial blood culture NG NRG Complete urinalysis [...] FRANCIS URATES NRG Bacterial urine culture - 01/02/20 17:47 Bacterial urine culture [id number] NRG COLONY COUNT <10,000 NRG SUSCEPTIBILITY SEE COMMENTS NRG Bacterial blood culture - 01/02/20 18:17 Bacterial blood culture NG NRG Complete blood count (CBC) with automate d white blood cell (WBC) differential - 01/03/20 04:50 Blood leukocytes automated count (number/volume) 5.8 10*3/uL 4.3-11.0 Blood erythrocytes automated count (number/volume) 3.75 10*6/uL 4.35-5.85 Venous blood hemoglobin measurement (mass/volume) 10.6 g/dL 13.3-17.7 Blood hematocrit (volume fraction) 31 % 40-54 Automated erythrocyte mean corpuscular volume 84 [ [facility]us] 80-99 Automated erythrocyte mean corpuscular h emoglobin (mass per erythrocyte) 28 pg 25-34 Automated erythrocyte mean corpuscular h emoglobin concentration measurement (mass/volume) 34 g/dL 32-36 Automated erythrocyte distribution width ratio 15. 1 % 10.0- 14.5 Automated blood platelet count (count/volume) 109 10*3/uL 130-400 Automated blood platelet mean volume measurement 10.9 [[facility]z_us] 7.4-10.4 Automated blood neutrophils/100 leukocytes 72 % 42-75 Automated blood lymphocytes/100 leukocytes 19 % 12-44 Blood monocytes/100 leukocytes 8 % 0-12 Automated blood eosinophils/100 leukocytes 2 % 0-10 Automated blood basophils/100 leukocytes 0 % 0-10 Blood neutrophils automated count (number/volume) 4.1 10*3 1.8-7.8 Blood lymphocytes automated count (number/volume) 1.1 10*3 1.0-4.0 Blood monocytes automated count (number/volume) 0. 4 10*3 0.0-1.0 Automated eosinophil count 0.1 10*3/uL 0 .0-0.3 Automated blood basophil count (count/volume) 0.0 10*3/uL 0.0-0.1 Comprehensive metabolic panel - 01/03/20 04:50 Serum or plasma sodium measurement (moles/volume) 131 mmol/L 135-145 Serum or plasma potassium measurement (moles/volume) 4.3 mmol/L 3.6-5.0 Serum or plasma chloride measurement (moles/volume) 102 mmol/L 98-107 Carbon dioxide 17 mmol/L 21-32 Serum or plasma anion gap determination (moles/volume) 12 mmol/L 5-14 Serum or plasma urea nitrogen measurement (mass/volume ) 27 mg/dL 7-18 Serum or plasma creatinine measurement (mass/volume) 1.70 mg/dL 0.60-1.30 Serum or plasma urea nitrogen/creatinine mass ratio 16 NRG Serum or plasma creatinine measurement w ith calculation of estimated glomerular filtration rate 40 NRG Serum or plasma glucose measurement (mass/volume) 387 mg/dL 70-105 Serum or plasma calcium measurement (mass/volume) 8.4 mg/dL 8.5-10.1 Serum or plasma total bilirubin measurement (mass/volu me) 0.6 mg/dL 0.1-1.0 Serum or plasma alkaline phosphatase malika surement (enzymatic activity/volume) 90 U/L 40-136 Serum or plasma aspartate aminotransfera se measurement (enzymatic activity/volume) 19 U/L 5-34 Serum or plasma alanine aminotransferase measurement (enzymatic activity/volume) 19 U/L 0-55 Serum or plasma protein measurement (mass/volume) 6.1 g/dL 6.4-8.2 Serum or plasma albumin measurement (mass/volume) 3.2 g/dL 3.2-4.5 CALCIUM CORRECTED 9.0 mg/dL 8.5-10.1 PROCALCITONIN (PCT) - 01/03/20 04:50 PROCALCITONIN (PCT) 0.07 ng/mL <0.10 Capillary blood glucose measurement by g lucometer (mass/volume) - 01/03/20 10:02 Capillary blood glucose measurement by glucometer (mas s/volume) 431 mg/dL 70-110 Capillary blood glucose measurement by g lucometer (mass/volume) - 01/03/20 14:22 Capillary blood glucose measurement by glucometer (mas s/volume) 381 mg/dL 70-110 Capillary blood glucose measurement by g lucometer (mass/volume) - 01/03/20 19:56 Capillary blood glucose measurement by glucometer (mas s/volume) 287 mg/dL 70-110 Capillary blood glucose measurement by g lucometer (mass/volume) - 01/04/20 00:44 Capillary blood glucose measurement by glucometer (mas s/volume) 255 mg/dL 70-110 Capillary blood glucose measurement by g lucometer (mass/volume) - 01/04/20 04:57 Capillary blood glucose measurement by glucometer (mas s/volume) 183 mg/dL 70-110 Automated blood complete blood count (he mogram) panel - 01/04/20 06:10 Blood leukocytes automated count (number/volume) 7.8 10*3/uL 4.3-11.0 Blood erythrocytes automated count (number/volume) 3.78 10*6/uL 4.35-5.85 Venous blood hemoglobin measurement (mass/volume) 10.7 g/dL 13.3-17.7 Blood hematocrit (volume fraction) 32 % 40-54 Automated erythrocyte mean corpuscular volume 84 [ [facility]us] 80-99 Automated erythrocyte mean corpuscular h emoglobin (mass per erythrocyte) 28 pg 25-34 Automated erythrocyte mean corpuscular h emoglobin concentration measurement (mass/volume) 34 g/dL 32-36 Automated erythrocyte distribution width ratio 15. 2 % 10.0- 14.5 Automated blood platelet count (count/volume) 131 10*3/uL 130-400 Automated blood platelet mean volume measurement 10.5 [foz_us] 7.4-10.4 PT panel in platelet poor plasma by coag ulation assay - 01/04/20 06:10 Prothrombin time (PT) in platelet poor plasma by coagu lation assay 15.5 s 12.2-14.7 INR in platelet poor plasma or blood by coagulation as say 1.2 0.8-1.4 Whole blood basic metabolic panel - 11/19 06:10 Serum or plasma sodium measurement (moles/volume) 135 mmol/L 135-145 Serum or plasma potassium measurement (moles/volume) 3.8 mmol/L 3.6-5.0 Serum or plasma chloride measurement (moles/volume) 103 mmol/L 98-107 Carbon dioxide 24 mmol/L 21-32 Serum or plasma anion gap determination (moles/volume) 8 mmol/L 5-14 Serum or plasma urea nitrogen measurement (mass/volume ) 27 mg/dL 7-18 Serum or plasma creatinine measurement (mass/volume) 1.78 mg/dL 0.60-1.30 Serum or plasma urea nitrogen/creatinine mass ratio 15 NRG Serum or plasma creatinine measurement w ith calculation of estimated glomerular filtration rate 38 NRG Serum or plasma glucose measurement (mass/volume) 139 mg/dL 70-105 Serum or plasma calcium measurement (mass/volume) 8.6 mg/dL 8.5-10.1 Capillary blood glucose measurement by g lucometer (mass/volume) - 01/04/20 09:04 Capillary blood glucose measurement by glucometer (mas s/volume) 74 mg/dL 70-110 Capillary blood glucose measurement by g lucometer (mass/volume) - 01/04/20 10:05 Capillary blood glucose measurement by glucometer (mas s/volume) 91 mg/dL 70-110 Capillary blood glucose measurement by g lucometer (mass/volume) - 01/04/20 11:17 Capillary blood glucose measurement by glucometer (mas s/volume) 136 mg/dL 70-110 Capillary blood glucose measurement by g lucometer (mass/volume) - 01/04/20 14:59 Capillary blood glucose measurement by glucometer (mas s/volume) 273 mg/dL 70-110 Capillary blood glucose measurement by g lucometer (mass/volume) - 01/04/20 17:03 Capillary blood glucose measurement by glucometer (mas s/volume) 326 mg/dL 70-110 Capillary blood glucose measurement by g lucometer (mass/volume) - 01/04/20 19:27 Capillary blood glucose measurement by glucometer (mas s/volume) 345 mg/dL 70-110 Capillary blood glucose measurement by g lucometer (mass/volume) - 01/04/20 23:22 Capillary blood glucose measurement by glucometer (mas s/volume) 293 mg/dL 70-110 Capillary blood glucose measurement by g lucometer (mass/volume) - 01/05/20 02:53 Capillary blood glucose measurement by glucometer (mas s/volume) 208 mg/dL 70-110 Capillary blood glucose measurement by g lucometer (mass/volume) - 01/05/20 05:37 Capillary blood glucose measurement by glucometer (mas s/volume) 211 mg/dL 70-110 Complete blood count (CBC) with automate d white blood cell (WBC) differential - 01/05/20 05:37 Blood leukocytes automated count (number/volume) 7.5 10*3/uL 4.3-11.0 Blood erythrocytes automated count (number/volume) 3.75 10*6/uL 4.35-5.85 Venous blood hemoglobin measurement (mass/volume) 10.6 g/dL 13.3-17.7 Blood hematocrit (volume fraction) 32 % 40-54 Automated erythrocyte mean corpuscular volume 85 [ foz_us] 80-99 Automated erythrocyte mean corpuscular h emoglobin (mass per erythrocyte) 28 pg 25-34 Automated erythrocyte mean corpuscular h emoglobin concentration measurement (mass/volume) 33 g/dL 32-36 Automated erythrocyte distribution width ratio 15. 1 % 10.0- 14.5 Automated blood platelet count (count/volume) 130 10*3/uL 130-400 Automated blood platelet mean volume measurement 11.1 [foz_us] 7.4-10.4 Automated blood neutrophils/100 leukocytes 74 % 42-75 Automated blood lymphocytes/100 leukocytes 13 % 12-44 Blood monocytes/100 leukocytes 11 % 0-12 Automated blood eosinophils/100 leukocytes 1 % 0-10 Automated blood basophils/100 leukocytes 0 % 0-10 Blood neutrophils automated count (number/volume) 5.6 10*3 1.8-7.8 Blood lymphocytes automated count (number/volume) 1.0 10*3 1.0-4.0 Blood monocytes automated count (number/volume) 0. 8 10*3 0.0-1.0 Automated eosinophil count 0.1 10*3/uL 0 .0-0.3 Automated blood basophil count (count/volume) 0.0 10*3/uL 0.0-0.1 PT panel in platelet poor plasma by coag ulation assay - 01/05/20 05:37 Prothrombin time (PT) in platelet poor plasma by coagu lation assay 18.0 s 12.2-14.7 INR in platelet poor plasma or blood by coagulation as say 1.4 0.8-1.4 Comprehensive metabolic panel - 01/05/20 05:37 Serum or plasma sodium measurement (moles/volume) 133 mmol/L 135-145 Serum or plasma potassium measurement (moles/volume) 4.1 mmol/L 3.6-5.0 Serum or plasma chloride measurement (moles/volume) 102 mmol/L 98-107 Carbon dioxide 22 mmol/L 21-32 Serum or plasma anion gap determination (moles/volume) 9 mmol/L 5-14 Serum or plasma urea nitrogen measurement (mass/volume ) 30 mg/dL 7-18 Serum or plasma creatinine measurement (mass/volume) 1.82 mg/dL 0.60-1.30 Serum or plasma urea nitrogen/creatinine mass ratio 16 NRG Serum or plasma creatinine measurement w ith calculation of estimated glomerular filtration rate 37 NRG Serum or plasma glucose measurement (mass/volume) 189 mg/dL 70-105 Serum or plasma calcium measurement (mass/volume) 8.5 mg/dL 8.5-10.1 Serum or plasma total bilirubin measurement (mass/volu me) 0.5 mg/dL 0.1-1.0 Serum or plasma alkaline phosphatase malika surement (enzymatic activity/volume) 90 U/L 40-136 Serum or plasma aspartate aminotransfera se measurement (enzymatic activity/volume) 14 U/L 5-34 Serum or plasma alanine aminotransferase measurement (enzymatic activity/volume) 19 U/L 0-55 Serum or plasma protein measurement (mass/volume) 6.3 g/dL 6.4-8.2 Serum or plasma albumin measurement (mass/volume) 3.2 g/dL 3.2-4.5 CALCIUM CORRECTED 9.1 mg/dL 8.5-10.1 Capillary blood glucose measurement by g lucometer (mass/volume) - 01/05/20 10:40 Capillary blood glucose measurement by glucometer (mas s/volume) 305 mg/dL 70-110 Capillary blood glucose measurement by g lucometer (mass/volume) - 01/05/20 14:59 Capillary blood glucose measurement by glucometer (mas s/volume) 218 mg/dL 70-110 Capillary blood glucose measurement by g lucometer (mass/volume) - 01/05/20 19:46 Capillary blood glucose measurement by glucometer (mas s/volume) 163 mg/dL 70-110 Capillary blood glucose measurement by g lucometer (mass/volume) - 01/06/20 04:42 Capillary blood glucose measurement by glucometer (mas s/volume) 148 mg/dL 70-110 Capillary blood glucose measurement by g lucometer (mass/volume) - 01/06/20 10:31 Capillary blood glucose measurement by glucometer (mas s/volume) 186 mg/dL 70-110 Capillary blood glucose measurement by g lucometer (mass/volume) - 01/06/20 14:53 Capillary blood glucose measurement by glucometer (mas s/volume) 213 mg/dL 70-110 Capillary blood glucose measurement by g lucometer (mass/volume) - 01/06/20 20:18 Capillary blood glucose measurement by glucometer (mas s/volume) 174 mg/dL 70-110 PT panel in platelet poor plasma by coag ulation assay - 01/07/20 04:30 Prothrombin time (PT) in platelet poor plasma by coagu lation assay 21.4 s 12.2-14.7 INR in platelet poor plasma or blood by coagulation as say 1.8 0.8-1.4 Capillary blood glucose measurement by g lucometer (mass/volume) - 01/07/20 06:12 Capillary blood glucose measurement by glucometer (mas s/volume) 132 mg/dL 70-110 Capillary blood glucose measurement by g lucometer (mass/volume) - 01/07/20 10:11 Capillary blood glucose measurement by glucometer (mas s/volume) 170 mg/dL 70-110 Capillary blood glucose measurement by g lucometer (mass/volume) - 01/07/20 16:01 Capillary blood glucose measurement by glucometer (mas s/volume) 195 mg/dL 70-110 Capillary blood glucose measurement by g lucometer (mass/volume) - 01/07/20 18:58 Capillary blood glucose measurement by glucometer (mas s/volume) 226 mg/dL 70-110 Capillary blood glucose measurement by g lucometer (mass/volume) - 01/08/20 05:23 Capillary blood glucose measurement by glucometer (mas s/volume) 84 mg/dL 70-110 Complete blood count (CBC) with automate d white blood cell (WBC) differential - 01/08/20 05:23 Blood leukocytes automated count (number/volume) 6.8 10*3/uL 4.3-11.0 Blood erythrocytes automated count (number/volume) 3.52 10*6/uL 4.35-5.85 Venous blood hemoglobin measurement (mass/volume) 9.9 g/dL 13.3-17.7 Blood hematocrit (volume fraction) 30 % 40-54 Automated erythrocyte mean corpuscular volume 86 [ foz_us] 80-99 Automated erythrocyte mean corpuscular h emoglobin (mass per erythrocyte) 28 pg 25-34 Automated erythrocyte mean corpuscular h emoglobin concentration measurement (mass/volume) 33 g/dL 32-36 Automated erythrocyte distribution width ratio 15. 1 % 10.0- 14.5 Automated blood platelet count (count/volume) 149 10*3/uL 130-400 Automated blood platelet mean volume measurement 11.1 [foz_us] 7.4-10.4 Automated blood neutrophils/100 leukocytes 70 % 42-75 Automated blood lymphocytes/100 leukocytes 15 % 12-44 Blood monocytes/100 leukocytes 13 % 0-12 Automated blood eosinophils/100 leukocytes 2 % 0-10 Automated blood basophils/100 leukocytes 0 % 0-10 Blood neutrophils automated count (number/volume) 4.7 10*3 1.8-7.8 Blood lymphocytes automated count (number/volume) 1.0 10*3 1.0-4.0 Blood monocytes automated count (number/volume) 0. 9 10*3 0.0-1.0 Automated eosinophil count 0.2 10*3/uL 0 .0-0.3 Automated blood basophil count (count/volume) 0.0 10*3/uL 0.0-0.1 Comprehensive metabolic panel - 01/08/20 05:23 Serum or plasma sodium measurement (moles/volume) 137 mmol/L 135-145 Serum or plasma potassium measurement (moles/volume) 4.0 mmol/L 3.6-5.0 Serum or plasma chloride measurement (moles/volume) 103 mmol/L 98-107 Carbon dioxide 22 mmol/L 21-32 Serum or plasma anion gap determination (moles/volume) 12 mmol/L 5-14 Serum or plasma urea nitrogen measurement (mass/volume ) 35 mg/dL 7-18 Serum or plasma creatinine measurement (mass/volume) 1.84 mg/dL 0.60-1.30 Serum or plasma urea nitrogen/creatinine mass ratio 19 NRG Serum or plasma creatinine measurement w ith calculation of estimated glomerular filtration rate 37 NRG Serum or plasma glucose measurement (mass/volume) 72 mg/dL 70-105 Serum or plasma calcium measurement (mass/volume) 8.6 mg/dL 8.5-10.1 Serum or plasma total bilirubin measurement (mass/volu me) 0.4 mg/dL 0.1-1.0 Serum or plasma alkaline phosphatase malika surement (enzymatic activity/volume) 129 U/L 40-136 Serum or plasma aspartate aminotransfera se measurement (enzymatic activity/volume) 25 U/L 5-34 Serum or plasma alanine aminotransferase measurement (enzymatic activity/volume) 27 U/L 0-55 Serum or plasma protein measurement (mass/volume) 6.3 g/dL 6.4-8.2 Serum or plasma albumin measurement (mass/volume) 3.2 g/dL 3.2-4.5 CALCIUM CORRECTED 9.2 mg/dL 8.5-10.1 PT panel in platelet poor plasma by coag ulation assay - 01/08/20 05:23 Prothrombin time (PT) in platelet poor plasma by coagu lation assay 24.0 s 12.2-14.7 INR in platelet poor plasma or blood by coagulation as say 2.0 0.8-1.4 Capillary blood glucose measurement by g lucometer (mass/volume) - 01/08/20 10:12 Capillary blood glucose measurement by glucometer (mas s/volume) 181 mg/dL 70-110 Capillary blood glucose measurement by g lucometer (mass/volume) - 01/08/20 14:33 Capillary blood glucose measurement by glucometer (mas s/volume) 222 mg/dL 70-110 Capillary blood glucose measurement by g lucometer (mass/volume) - 01/08/20 19:39 Capillary blood glucose measurement by glucometer (mas s/volume) 186 mg/dL 70-110 Capillary blood glucose measurement by g lucometer (mass/volume) - 01/09/20 05:35 Capillary blood glucose measurement by glucometer (mas s/volume) 129 mg/dL 70-110 Capillary blood glucose measurement by g lucometer (mass/volume) - 01/09/20 09:29 Capillary blood glucose measurement by glucometer (mas s/volume) 142 mg/dL 70-110 Coronavirus SARS-CoV-2 SO 2018 - 0 13:35 Coronavirus Ab [Units/volume] in Serum Negative Negative Capillary blood glucose measurement by g lucometer (mass/volume) - 01/09/20 14:38 Capillary blood glucose measurement by glucometer (mas s/volume) 182 mg/dL 70-110 Capillary blood glucose measurement by g lucometer (mass/volume) - 01/09/20 19:19 Capillary blood glucose measurement by glucometer (mas s/volume) 168 mg/dL 70-110 Capillary blood glucose measurement by g lucometer (mass/volume) - 01/10/20 05:50 Capillary blood glucose measurement by glucometer (mas s/volume) 113 mg/dL 70-110 Comprehensive metabolic panel - 01/10/20 06:27 Serum or plasma sodium measurement (moles/volume) 137 mmol/L 135-145 Serum or plasma potassium measurement (moles/volume) 4.1 mmol/L 3.6-5.0 Serum or plasma chloride measurement (moles/volume) 103 mmol/L 98-107 Carbon dioxide 23 mmol/L 21-32 Serum or plasma anion gap determination (moles/volume) 11 mmol/L 5-14 Serum or plasma urea nitrogen measurement (mass/volume ) 38 mg/dL 7-18 Serum or plasma creatinine measurement (mass/volume) 1.88 mg/dL 0.60-1.30 Serum or plasma urea nitrogen/creatinine mass ratio 20 NRG Serum or plasma creatinine measurement w ith calculation of estimated glomerular filtration rate 36 NRG Serum or plasma glucose measurement (mass/volume) 107 mg/dL 70-105 Serum or plasma calcium measurement (mass/volume) 8.4 mg/dL 8.5-10.1 Serum or plasma total bilirubin measurement (mass/volu me) 0.4 mg/dL 0.1-1.0 Serum or plasma alkaline phosphatase malika surement (enzymatic activity/volume) 159 U/L 40-136 Serum or plasma aspartate aminotransfera se measurement (enzymatic activity/volume) 23 U/L 5-34 Serum or plasma alanine aminotransferase measurement (enzymatic activity/volume) 30 U/L 0-55 Serum or plasma protein measurement (mass/volume) 6.3 g/dL 6.4-8.2 Serum or plasma albumin measurement (mass/volume) 3.1 g/dL 3.2-4.5 CALCIUM CORRECTED 9.1 mg/dL 8.5-10.1 PT panel in platelet poor plasma by coag ulation assay - 01/10/20 06:27 Prothrombin time (PT) in platelet poor plasma by coagu lation assay 22.7 s 12.2-14.7 INR in platelet poor plasma or blood by coagulation as say 1.9 0.8-1.4 Magnesium - 01/10/20 06:27 Magnesium 2.0 mg/dL 1.6-2.4 Encounters ACCT No. Visit Date/Time Discharge Status Pt. Type Provider Facility Loc./Unit Complaint [id number] 04/19/2019 13:51:00 04/19/2019 23:59: 00 DIS Outpatient GIL KAHN [id number] 04/12/2019 12:19:00 04/12/2019 23:59: 00 DIS Outpatient GIL KAHN [id number] 03/31/2019 10:18:00 03/31/2019 23:59: 00 DIS Outpatient GIL KAHN [id number] 03/22/2019 12:05:00 03/22/2019 23:59: 00 DIS Outpatient GIL KAHN [id number] 01/02/2020 19:25:00 020 11:20:00 DIS Outpatient GARIMA FRANCO, RENNY Escobedo [facility] 4TH HYPERGLYCEMIA,SUBTHERAPEUTIC INR,DEPENDENT [id number] 10/11/2019 14:47:00 020 14:22:00 DIS Inpatient BRANDO FRANCO, ANTONIO Ramirez [facility] 4TH ORTHOPNEA, EDEMA [id number] 08/31/2019 10:07:00 020 15:10:00 DIS Outpatient ODILON MALONE [facility] 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 [id number] 08/17/2019 10:14:00 020 00:01:00 DIS Outpatient ODILON MALONE [facility] 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 [id number] 12/16/2018 16:00:00 019 14:55:00 DIS Inpatient GARIMA FRANCO, RENNY Ramirez [facility] 4TH CELLULITIS R LE G;WOUND INFECTION R FOOT [id number] 11/07/2018 04:09:00 019 07:45:00 DIS Emergency MISAEL THORNTON DO [facility] ER WEAKNESS/SOA [id number] 04/08/2018 10:10:00 018 23:59:59 CLS Inpatient ARMEN TENORIO MD [facility] IRF VERTIGO, FALLS [id number] 04/05/2018 23:13:00 018 10:00:00 DIS Inpatient CASSY PALACIO MD [facility] 4TH FEVER OF UNKNOWN SOURCE,VOMITING,SEVERE DIZZINESS [id number] 02/09/2018 14:37:00 018 18:46:00 DIS Emergency MISAEL THORNTON DO [facility] ER FALL/POSS HEAD INJURY [id number] 10/11/2017 13:32:00 018 23:59:59 CLS Outpatient GIL KAHN DO [facility] RAD TRAUMA,M79.642, M79.672 [id number] 11/13/2016 10:31:00 017 12:36:00 DIS Inpatient ARMEN TENORIO MD [facility] IRF DEBILITY [id number] 11/10/2016 12:25:00 10:30:00 DIS Inpatient HAEKEM FRANCO, CASSY Braden [facility] 4TH CELLULITIS KLE [id number] 07/08/2016 12:07:00 13:41:00 DIS Emergency PRIMO FRANCOIS APRN [facility] ER FALL/RIGHT FOOT PAIN [id number] 07/01/2016 10:00:00 23:59:59 CLS Preadmit GIL KAHN DO [facility] CR ACB REDO [id number] 06/24/2016 11:09:00 00:01:00 DIS Outpatient GIL KAHN DO [facility] CR ACB REDO [id number] 06/01/2016 16:44:00 23:59:59 CLS Outpatient GIL KAHN DO [facility] RAD HEADACHE,SEVERE VERTIGO [id number] 01/06/2016 16:41:00 23:59:59 CLS Outpatient JUDY CABRALES MD [facility] HH OSTEOMYLITIS LEFT FING ER, MSSA INFECTION [id number] 12/30/2015 14:44:00 23:59:59 CLS Outpatient JUDY CABRALES MD [facility] HH OSTEOMYLITIS LEFT FING ER, MSSA INFECTION [id number] 12/23/2015 16:18:00 23:59:59 CLS Outpatient JUDY CABRALES MD [facility] HH OSTEOMYLITIS LEFT FING ER, MSSA INFECTION [id number] 12/16/2015 13:01:00 23:59:59 CLS Outpatient JUDY CABRALES MD [facility] HH OSTEOMYLITIS LEFT FING ER, MSSA INFECTION [id number] 12/12/2015 11:43:00 05/12/2 016 23:59:59 CLS Outpatient JUDY CABRALES MD [facility] [address] OSTEOMYLITIS (L) THUMB [id number] 12/09/2015 10:44:00 016 23:59:59 CLS Outpatient JUDY CABRALES MD [facility] [address] OSTEOMYLITIS LT FINGER ,MSSA INFECTION [id number] 12/06/2015 10:50:00 016 12:00:00 DIS Outpatient ELMO DAWN MD [facility] WOUNDCARE [id number] 12/02/2015 15:53:00 23:59:59 CLS Outpatient JUDY CABRALES MD [facility] [address] OSTEOMYLITIS LEFT FING ER, MSSA INFECTION [id number] 08/07/2015 07:10:00 016 14:05:00 DIS Outpatient BARBIE ALFRED MD [facility] CATH PAD,CLAUDICATION,SHORT OF BREATH,HTN,DM,HLP [id number] 06/19/2015 11:52:00 015 23:59:59 CLS Outpatient BARBIE ALFRED MD [facility] CARD CAD,ASHLY,HTN,HLP [id number] 01/23/2015 19:06:00 015 12:32:00 DIS Inpatient GIL KAHN DO [facility] 4TH HYPONATREMIA,SC IATICA [id number] 06/13/2014 14:05:00 014 23:59:59 CLS Outpatient GIL KAHN DO [facility] RT DSYPNEA [id number] 03/07/2014 12:28:00 014 23:59:59 CLS Outpatient GIL KAHN DO [facility] RAD TRAUMATIC BRAIN INJURY,TRAUMA [id number] 06/14/2013 07:34:00 013 23:59:59 CLS Outpatient BARBIE ALFRED MD [facility] RAD CAD,CP,DIZZINESS [id number] 06/09/2013 09:46:00 013 23:59:59 CLS Outpatient BARBIE ALFRED MD [facility] CARD CAD,CP,DIZZINESS [id number] 01/10/2020 08:56:[address] Outpatient BARBIE ALFRED MD [facility] CATH DEBILITY [id number] 01/10/2020 08:37:[address] Outpatient ARMEN MARTINS DO [facility] SDC GANGRENE LEFT THIRD TOE [id number] 01/04/2020 11:00:[address] Inpatient GODFREY ZEPEDA DO [facility] [place] IRF DEBILITY [id number] 08/07/2015 07:09:00 Document Registration [id number] 04/27/2012 12:29:00 Document Registration [id number] 09/23/2011 11:18:00 Document Registration [id number] 11/26/2010 07:10:00 Document Registration [id number] 11/24/2010 07:01:00 Document Registration [id number] 11/07/2010 11:15:00 Document Registration [id number] 11/03/2010 09:00:00 Document Registration [id number] 06/26/2010 17:20:00 Document Registration [id number] 02/24/2010 06:59:00 Document Registration
[2020-01-10] MEDS ORDERED: LIDOCAINE 1% INJ 20 ML 20 ML VIAL ONE (15:10)
[2020-01-10] MEDS ORDERED: HEParin (CATH LAB) 2,000 ML IV ONE (15:10)
[2020-01-10] MEDS ORDERED: MIDAZOLAM 5 MG/5 ML (VERSED) VIAL ONE (16:47)
[2020-01-10] MEDS ORDERED: fentaNYL INJECTION 100 MCG/2 ML AMP ONE (16:48)
[2020-01-10] MEDS ORDERED: NS IV 1000 ML 1,000 ML ONE (16:50)
[2020-01-10] MEDS ORDERED: NS IV 1000 ML 1,000 ML IV SCH ×2 (17:15→18:53)
[2020-01-10] MEDS ORDERED: NITRO DRIP 25000 MCG/D5W 250 ML IV ONE (17:16)
[2020-01-10] MEDS ORDERED: HEParin 1000 UNIT/ML (10ML VIAL) FOR BOLUS ONE (17:16)
[2020-01-10] MEDS ORDERED: CLOPIDOGREL 300 MG (PLAVIX) TABLET PO ONE (18:07)
[2020-01-10] MEDS ORDERED: ASPIRIN 325 MG (5 GR) TABLET ONE (18:07)
--- NOTE | 2020-01-10 18:52 | NUR ---
THIS NURSE SPOKE WITH DR ALFRED. PT MAY RETURN TO ARU AFTER BED REST IS OVER AT 2330.
[2020-01-10] MEDS ORDERED: PATIENT MAY USE OWN MEDS, ALL PO SCH (19:00)
--- NOTE | 2020-01-10 23:50 | NUR ---
PATIENT RETURNED TO ARU AND REPORT GIVEN TO SIM REGAN
== END 2020-01-10 23:50 ==
LOC: CATH 08:56 → ICU 18:28 → CATH 23:50
PROVIDERS: ATTEND Internal Medicine Cardiovascular Disease
DX: I70.92 Chronic total occlusion of artery of the extremities (principal); I70.0 Atherosclerosis of aorta; I25.10 Atherosclerotic heart disease of native coronary artery without angina pectoris; I65.21 Occlusion and stenosis of right carotid artery; E11.51 Type 2 diabetes mellitus with diabetic peripheral angiopathy without gangrene; S81.802A Unspecified open wound, left lower leg, initial encounter; I12.9 Hypertensive chronic kidney disease with stage 1 through stage 4 chronic kidney disease, or unspecified chronic kidney disease; E11.22 Type 2 diabetes mellitus with diabetic chronic kidney disease; J44.9 Chronic obstructive pulmonary disease, unspecified; E78.5 Hyperlipidemia, unspecified; I27.20 Pulmonary hypertension, unspecified; E66.9 Obesity, unspecified; N18.9 Chronic kidney disease, unspecified; Z85.818 Personal history of malignant neoplasm of other sites of lip, oral cavity, and pharynx; Z89.511 Acquired absence of right leg below knee; Z91.19 Patient's noncompliance with other medical treatment and regimen; Z79.899 Other long term (current) drug therapy; Z87.891 Personal history of nicotine dependence; Z82.49 Family history of ischemic heart disease and other diseases of the circulatory system; Z80.3 Family history of malignant neoplasm of breast; Z80.41 Family history of malignant neoplasm of ovary
CPT/HCPCS: 36246; 36248; 37226; 75625; 75716

== ENCOUNTER → 2020-01-10 | Day surgery (SDC) | payer MEDICARE ==
[~2020-01-10] MED LIST changes: +BUP/EPI 0.5% 1:200,000 (SENSORCAINE) 30 ML VIAL ONE; +KETAMINE/NaCl 50 MG/5 ML SYRINGE (ED ONLY) ONE; +MIDAZOLAM 2 MG/2 ML (VERSED) VIAL ONE; +ONDANSETRON 4 MG/2 ML (SDV) Z0FRAN IVP PRN; +PROPOFOL INJECTION 50 ML IV ONE; +morphine INJ 10 MG/ML 1ML (SYR OR VIAL) IVP ONE
--- NOTE | 2020-01-10 11:53 | Progress Note-Pre Operative ---
Pre-Operative Progress Note H&P Reviewed The H&P was reviewed, patient examined and no changes noted. Time Seen by Provider: 11:51 Date H&P Reviewed: Jan 10, 2020 Time H&P Reviewed: 11:52 Pre-Operative Diagnosis: Left 3rd toe gangrene with left foot cellulitis. Site marked ARMEN MARTINS DO Jan 10, 2020 11:53
--- NOTE | 2020-01-10 12:37 | Progress Note-Post Operative ---
Post-Operative Progess Note Surgeon (s)/Skiff Operator (s) Surgeon ARMEN MARTINS DO Skiff Operator: none Pre-Operative Diagnosis Left 3rd toe gangrene with left foot cellulitis. Site marked Post-Operative Diagnosis same Procedure & Operative Findings Date of Procedure 01/10/20 Procedure Performed/Findings Left 3rd toe amputation Left ankle block Anesthesia Type IV sedation by FUEL STORAGE TECHNICIAN Estimated Blood Loss Estimated blood loss (mL): scant Specimens/Packing Specimens Removed left 3rd toe ARMEN MARTINS DO Jan 10, 2020 12:37
[2020-01-10 12:41] VITALS: BP 110/73
[2020-01-10 12:50] VITALS: BP 108/69
[2020-01-10 13:00] VITALS: BP 112/71
[2020-01-10 13:10] VITALS: BP 114/73
--- NOTE | 2020-01-10 17:05 | Anesthesia-General Post-Op ---
MAC Patient Condition Mental Status/LOC: Same as Preop Cardiovascular: Satisfactory Nausea/Vomiting: Absent Respiratory: Satisfactory Pain: Controlled Complications: Absent Post Op Complications Complications None Follow Up Care/Instructions Patient Instructions None needed. Anesthesiology Discharge Order Discharge Order Patient is doing well, no complaints, stable vital signs, no apparent adverse anesthesia problems. No complications reported per nursing. TYE DEAL CRNA Jan 10, 2020 17:05
--- NOTE | 2020-01-10 20:58 | OPERATIVE REPORT ---
DATE OF SERVICE: PREOPERATIVE DIAGNOSES: Left third toe gangrene with left foot cellulitis. POSTOPERATIVE DIAGNOSES: Left third toe gangrene with left foot cellulitis, pending pathology. PROCEDURES: 1. Left third toe amputation. 2. Left ankle block. SURGEON: Edgar Bustillos DO FIELD CONTACT PERSON: None. ANESTHESIA: IV sedation by the SUSTAIN ENGINEER. SPECIMEN: Left third toe. BLOOD LOSS: Scant. FLUIDS: Per anesthesia. POSTOPERATIVE CONDITION: Stable. INDICATION FOR PROCEDURE: The patient is a 69-year-old male, who has had vascular disease and has gangrene in the left third toe as well as some cellulitis of the foot with some necrotic tissue. FINDINGS: The patient had a left third toe removed. PROCEDURE NOTE: After informed consent was obtained, the patient was brought to the operating room. Site had been marked, timeout was performed and then blocked the left ankle with a superficial block across the top and then behind them both malleolus as well as then did a little bit of a digital block. Then, the area was prepped and cleaned and then sterilely draped. I made an V-type incision around the third toe, going down through the skin into subcutaneous tissue and deepened down to subcutaneous tissue to the bone then dissecting around the bone cutting and tendons, muscles and vasculature coming across and then able to finally get the toe take it off and hemostasis obtained using Bovie electrocautery was washed out and then packed with quarter inch iodoform packing. Area was cleaned and dried and dressing placed. The patient tolerated the procedure. Sponge, instrument and needle count correct at the end of the case. Job ID: [id number] DocumentID: [id number] Dictated Date: 01/10/2020 12:36:21 Single Wire Saw Operator Date: 01/10/2020 20:58:05 Dictated By: EDGAR BUSTILLOS DO
== END | disposition home or self-care (01) ==
LOC: SDC 08:37
PROVIDERS: ATTEND Surgery
DX: E11.52 Type 2 diabetes mellitus with diabetic peripheral angiopathy with gangrene (principal); L03.116 Cellulitis of left lower limb; I25.10 Atherosclerotic heart disease of native coronary artery without angina pectoris; J44.9 Chronic obstructive pulmonary disease, unspecified; G47.33 Obstructive sleep apnea (adult) (pediatric); I42.9 Cardiomyopathy, unspecified; I25.2 Old myocardial infarction; E78.00 Pure hypercholesterolemia, unspecified; E11.40 Type 2 diabetes mellitus with diabetic neuropathy, unspecified; M54.2 Cervicalgia; G89.29 Other chronic pain; E66.01 Morbid (severe) obesity due to excess calories; I27.20 Pulmonary hypertension, unspecified; N18.9 Chronic kidney disease, unspecified; E78.5 Hyperlipidemia, unspecified; I65.29 Occlusion and stenosis of unspecified carotid artery; Z86.718 Personal history of other venous thrombosis and embolism; Z89.511 Acquired absence of right leg below knee; Z95.5 Presence of coronary angioplasty implant and graft; Z95.1 Presence of aortocoronary bypass graft; Z87.891 Personal history of nicotine dependence; Z79.4 Long term (current) use of insulin; Z79.899 Other long term (current) drug therapy; Z79.82 Long term (current) use of aspirin; Z91.19 Patient's noncompliance with other medical treatment and regimen
CPT/HCPCS: 82962

== ENCOUNTER 2020-01-11 09:58 | Inpatient (IN) | payer MEDICARE ==
[~2020-01-11] VITALS: Ht 182.9 cm; Wt 169.1 kg
[2020-01-11] MEDS ORDERED: DOCUSATE SODIUM 100 MG (COLACE) CAP PO PRN (11:30)
[2020-01-11] MEDS ORDERED: PATIENT MAY USE OWN MEDS, ALL PO SCH (11:30)
[2020-01-11] MEDS ORDERED: ONDANSETRON 4 MG/2 ML (SDV) Z0FRAN IV PRN (11:30)
[2020-01-11] MEDS ORDERED: MELATONIN 3 MG TABLET PO PRN (11:30)
[2020-01-11] MEDS ORDERED: ACETAMINOPHEN 325 MG TABLET PO PRN (11:30)
[2020-01-11] MEDS ORDERED: ONDANSETRON 4 MG (ZOFRAN) ORAL DISSOLVE TAB PO PRN (11:30)
[2020-01-11] MEDS ORDERED: VANCOMYCIN INJECTION 1,750 MG in NS IV 500 ML 500 ML IV SCH (11:30)
[2020-01-11] MEDS ORDERED: BISACODYL 10 MG SUPP (DULCOLAX) PR PRN (11:30)
[2020-01-11] MEDS ORDERED: ALPRAZolam 0.25 MG (XANAX) TAB PO PRN (11:30)
[2020-01-11] MEDS ORDERED: LOPERAMIDE 2 MG (IMODIUM) TABLET PO PRN (11:30)
[2020-01-11] MEDS ORDERED: diphenhydrAMINE 25 MG TAB (BENADRYL) PO PRN (11:30)
[2020-01-11] MEDS ORDERED: FLEET ENEMA ADULT 1 EA BTL PR PRN (11:30)
[2020-01-11] MEDS ORDERED: CALCIUM CARBONATE 500 MG (TUMS) TAB.CHEW PO PRN (11:30)
[2020-01-11] MEDS ORDERED: LACTULOSE SYRUP 10GM/15ML (ENULOSE) 30ML UDC PO PRN (11:30)
[2020-01-11] MEDS ORDERED: MECLIZINE 25 MG (ANTIVERT) TAB PO PRN (11:30)
[2020-01-11] MEDS ORDERED: guaiFENesin/CODEINE (ROBITUSSIN AC) 10ML UDC PO PRN (11:30)
[2020-01-11] MEDS ORDERED: RT-ALBUTEROL/IPRATROPIUM 3 ML (DUONEB) VIAL INH PRN (11:45)
--- NOTE | 2020-01-11 12:00 | NUR ---
ELMO GARCIA admitted to swing bed status to room 414-1, with an admitting diagnosis of SWB , on 01/11/20 from acute inpatient status. Therapy to evaluate patient for activity needs. ELMO GARCIA and/or family introduced to surroundings, call light, bed controls, phone, TV, temperature control, lights, meal times, smoking policy, visitor policy, side rail policy, bathrooms, and showers. Patient rights given to patient in the handbook. ELMO GARCIA and/or family member verbalized understanding that [facility] is not responsible for the loss or damage to any personal effects or valuables that are kept in the patients possession during their hospitalization. ELMO GARCIA and/or family verbalizes understanding of the Interdisciplinary Patient Education. Patient and/or family were informed about the Rapid Response Team and its purpose. Call light with in reach and patient demonstrates understanding of how to use. ELMO GARCIA reports no further needs at this time.
[2020-01-11 12:39] VITALS: BP 136/76
--- NOTE | 2020-01-11 13:04 | Speech Therapy Progress Note ---
Therapy Progress Note ST order received, chart reviewed. Patient known to this ST from admit on the ARU. Patient does not qualify for ST at this time. CRISTEL CARDENAS Jan 11, 2020 13:04
--- NOTE | 2020-01-11 13:25 | Occ Therapy Progress Note ---
Therapy Progress Note Pt. transferred to swing bed after surgery following rehab stay. New orders received. Chart reviewed. Pt. declining all attempts at this time for therapy treatment. Pt. in bed with C-pap and nasal cannula on. Pt. is flat on back. Wants to keep lying in that position. Pt. states that he just needs to rest and catch his breath. Pt. appears to be in no distress and asks for TV remote. Pt. educated that he is on swing bed and needs re-assessed. Pt. states that he knows, but does not want to move right now. All needs met. [id number] 1, visit AARON ANTON OT Jan 11, 2020 13:25
--- NOTE | 2020-01-11 13:56 | NUR ---
Swing Bed Note: Qualifies for swing bed for continued need for IV abx (Osteomyelitis) with continued need for Physical et Occupational therapies. Ultimate goal is to return home at his prior independent level of functioning. If he continues to progress slowly with therapies then long-term home admission will likely be needed before he can return home successfully.
--- NOTE | 2020-01-11 13:57 | NUR ---
Admission Drug Regimen Review: Date: 01/11/20 Time: 1359 Review Completed, No Issues found
[2020-01-11] MEDS ORDERED: TROUGH ORDER-PHARMACY XX NR (14:00)
[2020-01-11] MEDS: RT-ALBUTEROL/IPRATROPIUM 3 ML (DUONEB) VIAL INH SCH ×2 (14:04→18:40)
[2020-01-11] MEDS: FERROUS SULF 325 MG (IRON) TAB PO SCH (14:12)
[2020-01-11] MEDS: NS IV 1000 ML 1,000 ML IV SCH ×2 (14:12→21:11)
[2020-01-11] MEDS: hydrALAZINE (APRESOLINE) 25 MG TAB PO SCH ×2 (14:12→21:16)
[2020-01-11] MEDS: inSUlin ASPART (NovoLOG) 1 UNIT/0.01 ML (CHARGE PER UNIT) SQ SCH ×2 (14:13→18:27)
--- NOTE | 2020-01-11 14:23 | Physical Therapy Progress Note ---
Therapy Progress Note Patient declined OT and stated to tell PT not to "bother". PT will attempt in aROSELYN Yu PT Jan 11, 2020 14:23
--- OUTSIDE RECORDS SUMMARY | 2020-01-11 14:31 | XMS REPORT | Clinical Summary ---
Author Author [facility] Organization [facility] Address Unknown Phone Unavailable Care Team Providers Care Touch Up Carver Name Role Phone Kiel Mayer MD Unavailable Unavailable Chayo Strong APRN Unavailable Unavailable John Dumont MD Unavailable Valerie Cole PA-C Unavailable Irene Fontenot Unavailable Unavailable Carol Alford Unavailable Tyler Bello MD PCP Source Comments Some departments are not documenting in the electronic medical record. If you d o not see the information that you expected, contact Release of Information in [facility] Health Information Management department at [phone] for further assistan ce in locating additional records.[facility] Allergies Comments Active Allergy Reactions Severity [...]
--- OUTSIDE RECORDS SUMMARY | 2020-01-11 14:33 | XMS REPORT ---
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 with standing and positioning with dressing and shower, OT performed shower, dressing, assist~with UE positioning and safety during functional mobility ~ ~Assessment ~Current Status: Poor Progress ~Patient much weaker today, aggressive with staff. ~ ~PT Short Term Goals ~Short Term Goals ~Time Frame: Jan 11, 2020 ~Roll Left Right: 6 ~Sit to lyin ~Lying to sitting on side of be: 4 ~Sit to stand: 3 ~Chair/bed-to-ch air transfer: 3 ~ ~PT Perianesthesia Rn Goals ~Retirement Goals ~PT Retirement Goals Time Frame: Jan 25, 2020 ~Roll [...] Teaching: Reinforcement Needed ~ ~Time/GCodes ~Time In: 1000 ~Time Out: 1100 ~Total Billed Treatment Time: 60 ~Total Billed Treatment ~1 visit ~FA 60' ~ ~co-treated for 60 min ~ ~ ~ ~BETTY STRONG PT Jan 09, 2020 11:53 ~ ~ ~<Created by BETTY STRONG PT> ~<Electronically signed by BETTY STRONG PT> 01/09/20 3684 ~ ~ no information NAME: (no code) PENDING LOCATIO ELMO PATEL ([id number]) D ~MED REC#: [id number] ~ ~PHYSICIAN: MARIA A KEENE ~OT Current Status-Daily Note ~Subjective ~Pt sleeping in bed with CPAP, woke to touch on shldr. Pt agrees to therapy. Pt is self limiting, ~instead of initiating tasks pt will state do this or that, ie. lock brakes, move w/c, or anything ~that is out of his personal routine. Pt yelled at COBIAN for not having equipment in the position he ~wanted them in and worrying about stupid little things with transferring. ~ ~Mental Status/Objective ~Patient Orientation: Person, Place, Time, Situation ~ ~ADL-Treatment ~PT/OT co-treat ([id number]), skills of 2 clinicians due to medical complexity, low activity ~tolerance, safety and unsafe transfers. PT working on transfers, standing and mobility during ADLs.~ OT working on functional transfers and ADLs. Pt agrees to shower. Pt required assist x2 for all ~transfers due to weakness and safety issues. Pt able to complete upper body, markel area and upper ~LE's for bathing, assist for all other areas. Pt leans forward on shower bench using grabbars to ~allow enough space to cleanse buttocks. Pt c/o how grabbars and equipment are set up and that it is~better in his home. COBIAN asked pt if he was aware of lower body dressing equipment, pt stated that ~he was and had at his home. Then stated that he has a girl that helps him with all of that when she~comes to give him a bath. After set up, pt able to don/doff shirt. Dependent with donning/doffing ~lower body clothing and footwear. Sitting at sink, pt able to complete oral care and grooming. ~After session, pt lying in bed with call light/phone in reach. All needs met in room. ~Therapy Code Descriptions/Def initions ~ ~Functional [place] Measure: ~0=Not Assessed/NA 4=Minimal Assistance ~1=Total Assistance 5=Supervision or Setup ~2=Maximal Assistance 6=Modified [place] ~3=Moderate Assistance 7=Complete IndependenceSCAL E: Activities may be completed with or without ~assistive devices. ~ ~7-Sfypqgimrf-ly tient completes the activity by him/herself with no assistance from a helper. ~5-Set-up or Clean-up Assistance-helpe r sets up or cleans up; patient completes activity. [place] ~assists only prior to or ~ following the activity. ~4-Supervision or Touching Assistance-helpe r provides verbal cues and/or touching/steadyi ng and/or ~contact guard assistance as patient completes activity. Assistance may be provided ~ throughout the activity or intermittently. ~3-Partial/Moder ate Assistance-helpe r does LESS THAN HALF the effort. [place] lifts, holds or supports~trunk or limbs, but provides less than half the effort. ~2-Substantial/M aximal Assistance-helpe r does MORE THAN HALF the effort. [place] lifts or holds trunk ~or limbs and provides more than half the effort. ~9-Lkyebatag-jlm per does ALL the effort. Patient does [...] Body Dressing (QC): 1 ~On/Off Footwear: 2 ~ ~OT Short Term Goals ~Short Term Goals ~Time Frame: Jan 17, 2020 ~Shower/bathe self: 2 ~ ~OT Perianesthesia Rn Goals ~Perianesthesia Rn Goals ~Time Frame: Feb 01, 2020 ~Eating [...] Tolerance, Decreased Safety Aware, Decreased UE Strength, Dependent ~Transfers, Impaired Coordination, Impaired Funct Balance, Impaired Self-Care Skills ~ ~Discharge Recommendations ~Plan/Recommenda [...] ~Rehab Potential: Guarded ~ ~Time/GCodes ~Start Time: 10:00 ~Stop Time: 11:15 ~Total Time Billed (hr/min): 75 ~Billed Treatment Time ~1 visit-ADL 5 (75 min) co-treat with PT [id number], individual [id number] ~ ~ ~ ~MARIA A KEENE Jan 09, 2020 11:22 ~ ~ ~<Created by MARIA A VYAS> ~<Electronically signed by MARIA A VYAS> 01/09/20 1136 ~ ~ no information NAME: (no code) PENDING ELMO CHUNG ([id number]) D ~MED REC#: [id number] ~ ~PHYSICIAN: BETTY STRONG PT ~PT Daily Note-Current ~Subjective ~Patient in bed pre tx, sleeping, very lethargic, agrees to exercises in bed ~ ~Appearance ~Patient in bed post tx with nurse call, phone, tray, all needs met. ~ ~Mental Status ~Patient Orientation: Person, [place] ~ ~Transfers ~SCALE: Activities may be completed with or without assistive devices. ~ ~7-Yeiobobtuw-sq tient completes the activity by him/herself with no assistance from a helper. ~5-Set-up or Clean-up Assistance-helpe r sets up or cleans up; patient completes activity. [place] ~assists only prior to or ~ following the activity. ~4-Supervision or Touching Assistance-helpe r provides verbal cues and/or touching/steadyi ng and/or ~contact guard assistance as patient completes activity. Assistance may be provided ~ throughout the activity or intermittently. ~3-Partial/Moder ate Assistance-helpe r does LESS THAN HALF the effort. [place] lifts, holds or supports~trunk or limbs, but provides less than half the effort. ~2-Substantial/M aximal Assistance-helpe r does MORE THAN HALF the effort. [place] lifts or holds trunk ~or limbs and provides more than half the effort. ~5-Szfxczcbw-qdi per does ALL the effort. Patient does [...] 3 ~Chair/bed-to-ch air transfer: 3 ~ ~PT Perianesthesia Rn Goals ~Retirement Goals ~PT Retirement Goals Time Frame: Jan 25, 2020 ~Roll [...] Ab Negative (no code) 01-09-2020 [facility]-0400 [facility] ([id number]) Glucose 129 mg/dL (H) 60 - 125 mg/dL 01-09-2020 PENDING LOCATION [Mass/Vol] 01:35-0400 [facility] ([id number]) Glucose 142 mg/dL (H) 60 - 125 mg/dL 01-09-2020 PENDING LOCATION [Mass/Vol] 05:29-0400 [facility] ([id number]) Glucose 182 mg/dL (H) 60 - 125 mg/dL 01-09-2020 PENDING LOCATION [Mass/Vol] 10:38-0400 [facility] ([id number]) Glucose 168 mg/dL (H) 60 - 125 mg/dL 01-09-2020 PENDING LOCATION [Mass/Vol] 15:19-0400 [facility] ([id number]) not yet categorized on 2020-01-08 no information NAME: (no code) PENDING LOCATIO ELMO PATEL [facility] ([id number]) D ~MED REC#: [id number] ~ ~PHYSICIAN: BETTY STRONG PT ~PT Daily [...] completed with or without assistive devices. ~ ~4-Jywzldkjix-uh tient completes the activity by him/herself with no assistance from a helper. ~5-Set-up or Clean-up Assistance-helpe r sets up or cleans up; patient completes activity. [place] ~assists only prior to or ~ following the activity. ~4-Supervision or Touching Assistance-helpe r provides verbal cues and/or touching/steadyi ng and/or ~contact guard assistance as patient completes activity. Assistance may be provided ~ throughout the activity or intermittently. ~3-Partial/Moder ate Assistance-helpe r does LESS THAN HALF the effort. [place] lifts, holds or supports~trunk or limbs, but provides less than half the effort. ~2-Substantial/M aximal Assistance-helpe r does MORE THAN HALF the effort. [place] lifts or holds trunk ~or limbs and provides more than half the effort. ~0-Sztsgyjmw-wkh per does ALL the effort. Patient does [...] 3 ~Chair/bed-to- air transfer: 3 ~ ~PT Perianesthesia Rn Goals ~Retirement Goals ~PT Retirement Goals Time Frame: Jan 25, 2020 ~Roll [...] information NAME: (no code) PENDING ELMO CHUNG ([id number]) D ~MED REC#: [id number] ~ ~PHYSICIAN: BETTY STRONG PT ~PT Daily Note-Current ~Subjective ~Patient in bed pre tx, agrees to PT, has no complaints of pain at rest. ~ ~Appearance ~Patient in bed post tx with nurse call,phone, tray, all needs met. ~ ~Mental Status ~Patient Orientation: Normal For Age ~ ~Transfers ~SCALE: Activities may be completed with or without assistive devices. ~ ~6-Fjlwjbxipj-we tient completes the activity by him/herself with no assistance from a helper. ~5-Set-up or Clean-up Assistance-helpe r sets up or cleans up; patient completes activity. [place] ~assists only prior to or ~ following the activity. ~4-Supervision or Touching Assistance-helpe r provides verbal cues and/or touching/steadyi ng and/or ~contact guard assistance as patient completes activity. Assistance may be provided ~ throughout the activity or intermittently. ~3-Partial/Moder ate Assistance-helpe r does LESS THAN HALF the effort. [place] lifts, holds or supports~trunk or limbs, but provides less than half the effort. ~2-Substantial/M aximal Assistance-helpe r does MORE THAN HALF the effort. [place] lifts or holds trunk ~or limbs and provides more than half the effort. ~6-Nqbotfqod-mdi per does ALL the effort. Patient does [...] 3 ~Chair/bed-to- air transfer: 3 ~ ~PT Perianesthesia Rn Goals ~Retirement Goals ~PT Retirement Goals Time Frame: Jan 25, 2020 ~Roll [...] BETTY STRONG PT> 01/08/20 1420 ~ ~ no information NAME: (no code) PENDING [place] ELMO PATEL ([id number]) D ~MED REC#: [id number] ~ ~PHYSICIAN: MARIA A KEENE ~OT Current Status-Daily Note ~Subjective ~Pt sleeping with CPap on in bed. Pt woke to calling name a few times. Pt agrees to therapy. ~ ~Mental Status/Objective ~Patient Orientation: Person, Place, Time, Situation ~ ~ADL-Treatment ~Therapy Code Descriptions/Def initions ~ ~Functional [place] Measure: ~0=Not Assessed/NA 4=Minimal Assistance ~1=Total Assistance 5=Supervision or Setup ~2=Maximal Assistance 6=Modified [place] ~3=Moderate Assistance 7=Complete IndependenceSCAL E: Activities may be completed with or without ~assistive devices. ~ ~4-Apdequzpub-yc tient completes the activity by him/herself with no assistance from a helper. ~5-Set-up or Clean-up Assistance-helpe r sets up or cleans up; patient completes activity. [place] ~assists only prior to or ~ following the activity. ~4-Supervision or Touching Assistance-helpe r provides verbal cues and/or touching/steadyi ng and/or ~contact guard assistance as patient completes activity. Assistance may be provided ~ throughout the activity or intermittently. ~3-Partial/Moder ate Assistance-helpe r does LESS THAN HALF the effort. [place] lifts, holds or supports~trunk or limbs, but provides less than half the effort. ~2-Substantial/M aximal Assistance-helpe r does MORE THAN HALF the effort. [place] lifts or holds trunk ~or limbs and provides more than half the effort. ~0-Hajjvitbk-pjr per does ALL the effort. Patient does [...] or Safety Concerns. ~ ~Other Treatment ~Pt given medium resistance theraband for exercises in room. Pt completed own exercise routine. ~Completing each one 3 sets 10 reps. Recovery breaks between each set. After session, pt lying in ~bed with call light/phone in reach. All needs met in room. ~ ~OT Short Term Goals ~Short Term Goals ~Time Frame: Jan 17, 2020 ~Shower/bathe self: 2 ~ ~OT Retirement Goals ~Perianesthesia Rn Goals ~Time Frame: Feb 01, 2020 ~Eating [...] Decreased Activ Tolerance, Decreased UE Strength, Impaired Self-Care Skills ~ ~Discharge Recommendations ~Plan/Recommenda [...] ~Rehab Potential: Guarded ~ ~Time/GCodes ~Start Time: 13:30 ~Stop Time: 14:00 ~Total Time Billed (hr/min): 30 ~Billed Treatment Time ~1 visit-EX 2 (30 min) ~ ~ ~ ~MARIA A KEENE Jan 08, 2020 14:06 ~ ~ ~<Created by MARIA A VYAS> ~<Electronically signed by MARIA A VYAS> 01/08/20 6476 ~ ~ no information NAME: (no code) PENDING ZOËO ELMO PATEL ([id number]) D ~MED REC#: [id number] ~ ~PHYSICIAN: MARIA A KEENE ~OT Current Status-Daily Note ~Subjective ~Pt alert, lying in bed. Pt agrees to therapy. No c/o pain only dizziness. Pt sat still to allow ~dizziness to dissipate. ~ ~Mental Status/Objective ~Patient Orientation: Person, Place, Time, Situation ~ ~ADL-Treatment ~See PT notes for pt's mobility progress. Assist x2 to don pants, assist to thread over feet then ~assist x1 to stand while assist x1 to hike over hips. Pt propelled w/c to bathroom to complete oral~care and grooming, mod I. ~Therapy Code Descriptions/Def initions ~ ~Functional [place] Measure: ~0=Not Assessed/NA 4=Minimal Assistance ~1=Total Assistance 5=Supervision or Setup ~2=Maximal Assistance 6=Modified [place] ~3=Moderate Assistance 7=Complete IndependenceSCAL E: Activities may be completed with or without ~assistive devices. ~ ~7-Wyrdqabadg-ms tient completes the activity by him/herself with no assistance from a helper. ~5-Set-up or Clean-up Assistance-helpe r sets up or cleans up; patient completes activity. [place] ~assists only prior to or ~ following the activity. ~4-Supervision or Touching Assistance-helpe r provides verbal cues and/or touching/steadyi ng and/or ~contact guard assistance as patient completes activity. Assistance may be provided ~ throughout the activity or intermittently. ~3-Partial/Moder ate Assistance-helpe r does LESS THAN HALF the effort. [place] lifts, holds or supports~trunk or limbs, but provides less than half the effort. ~2-Substantial/M aximal Assistance-helpe r does MORE THAN HALF the effort. [place] lifts or holds trunk ~or limbs and provides more than half the effort. ~5-Fxcazfowj-cft per does ALL the effort. Patient does [...] or Safety Concerns. ~Oral Hygiene (QC): 6 ~Lower Body Dressing (QC): 1 ~ ~Other Treatment ~OT/PT co-treat ([id number]), skills of 2 clinicians required due to medical complexity, unsafe ~mobility and low activity tolerance. PT working in transfers, mobility and L LE strengthening. OT ~working on functional transfers, ADLs, UE strengthening. Pt propelled w/c slowly with multiple ~recovery breaks from room to therapy gym. Pt working on standing at parallel bars, assist to ~stabilize self during sit to stand phase then pt stood for 3 min each time. Pt propelled self back~to room. Using a forward facing to bed, pt pulled to stand with bed rails, placed stump onto bed ~then SPT to sit down on bed. After therapy pt lying in bed with call light/phone in reach. All ~needs met in room. ~ ~OT Short Term Goals ~Short Term Goals ~Time Frame: Jan 17, 2020 ~Shower/bathe self: 2 ~ ~OT Perianesthesia Rn Goals ~Perianesthesia Rn Goals ~Time Frame: Feb 01, 2020 ~Eating [...] Decreased Activ Tolerance, Decreased UE Strength, Impaired Coordination, Impaired Funct~Balance, Impaired Self-Care Skills, Restricted Funct UE ROM ~ ~Discharge Recommendations ~Plan/Recommenda tions: Continue POC [...] ~ ~Time/GCodes ~Start Time: 09:00 ~Stop Time: 10:00 ~Total Time Billed (hr/min): 60 ~Billed Treatment Time ~1 visit-ADL 1 (15 min) FA 3 (45 min) co-treat with PT [id number] ~ ~ ~ ~MARIA A KEENE Jan 08, 2020 09:53 ~ ~ ~<Created by MARIA A VYAS> ~<Electronically signed by MARIA A VYAS> 01/08/20 1144 ~ ~ laboratory on 2020-01-08 Albumin 3.2 g/dL (NEG) 3.4 - 5.4 g/dL 01-08-2020 PENDING LOCATION [Mass/Vol] 01: [facility] (86088) ALP [Catalytic 129 U/L (NEG) 44 - 147 U/L 01-08-2020 PEND ING LOCATION activity/Vol] 01: [facility] (97962) ALT [Catalytic 27 U/L (NEG) 4 - 40 U/L 01-08-2020 PENDIN G LOCATION activity/Vol] 01: [facility] (58047) Anion gap 12 mmol/L (NEG) 3 - 11 mmol/L 01-08-2020 PENDING LOCATION [Moles/Vol] 01: [facility] (52659) AST [Catalytic 25 U/L (NEG) 10 - 34 U/L 01-08-2020 PENDI NG LOCATION activity/Vol] 01: [facility] (01323) Basophils (Bld) 0.0 10*3/uL (NEG) 0 - 0.3 10*3/uL 01-08-2020 PENDING LOCATION [#/Vol] 01: [facility] (58064) Basophils/100 0 % (NEG) 0.5 - 1 % 01-08-2020 PENDING LOCATION WBC (Bld) 01: [facility] () Bilirubin 0.4 mg/dL (NEG) 0.1 - 1.2 mg/dL 01-08-2020 PENDIN G LOCATION [Mass/Vol] 01:0 [facility] (40339) Calcium 8.6 mg/dL (NEG) 8.5 - 10.2 mg/dL 01-08-2020 [facility] NG LOCATION [Mass/Vol] 01:0 [facility] (17804) Calcium 9.2 mg/dL (NEG) 8.5 - 10.2 mg/dL 01-08-2020 [facility] NG LOCATION [Mass/Vol] 01: [facility] (99324) Chloride 103 mmol/L (NEG) 95 - 106 mmol/L 01-08-2020 PEND NG LOCATION [Moles/Vol] 01: [facility] (21928) CO2 [Moles/Vol] 22 mmol/L (NEG) 23 - 29 mmol/L 01-08-2020 P ENDING LOCATION 01:0 [facility] (58716) Creatinine 1.84 mg/dL (H) 01-08-2020 PENDING LOCATI ON [Mass/Vol] 01: [facility] (52290) Creatinine and 37 (no code) 01-08-2020 PENDING LOC ATION Glomerular 01: [facility] (21763) filtration rate.predicted panel - Serum, Plasma or Blood Eosinophils 0.2 10*3/uL (NEG) 0.05 - 0.5 01-08-2020 PENDING LOCATION (Bld) [#/Vol] 10*3/uL 01:0 [facility] (19315) Eosinophils/100 2 % (NEG) 1 - 4 % 01-08-2020 [facility] LOCATION WBC (Bld) 01: [facility] (12848) Erythrocyte 15.1 % (H) 11.6 - 14.6 % 01-08-2020 [facility] G LOCATION distribution 01: [facility] (69173) width (RBC) [Ratio] Glucose 72 mg/dL (NEG) 60 - 125 mg/dL 01-08-2020 PENDING LOCATION [Mass/Vol] 01:0400 [facility] (68690) Glucose 84 mg/dL (NEG) 60 - 125 mg/dL 01-08-2020 PENDING LOCATION [Mass/Vol] 01:0 [facility] (61419) Glucose 181 mg/dL (H) 60 - 125 mg/dL 01-08-2020 PENDING LOCATION [Mass/Vol] 06:12-0400 [facility] (73705) Glucose 222 mg/dL (H) 60 - 125 mg/dL 01-08-2020 PENDING LOCATION [Mass/Vol] 10:33-0400 [facility] (32365) Glucose 186 mg/dL (H) 60 - 125 mg/dL 01-08-2020 PENDING LOCATION [Mass/Vol] 15:39-0400 [facility] (83265) Hematocrit (Bld) 30 % (L) 36.1 - 50.3 % 01-08-2020 P ENDING LOCATION [Volume 01:-0 [facility] (39529) fraction] Hemoglobin (Bld) 9.9 g/dL (L) 12.1 - 17.2 g/dL 01-08-2020 PENDING LOCATION [Mass/Vol] 01:-0400 [facility] (57514) INR Coag 2.0 (H) 01-08-2020 PENDING LOCATI ON (Platelet poor 01: [facility] (33035) plasma or blood) [Relative time] Lymphocytes 1.0 10*3/uL (NEG) 0.9 - 2.9 01-08-2020 PENDING LOCATION (Bld) [#/Vol] 10*3/uL 01:-0400 [facility] (14043) Lymphocytes/100 15 % (NEG) 20 - 40 % 01-08-2020 PENDIN G LOCATION WBC (Bld) 01:-0400 [facility] (44912) MCH (RBC) 28 pg (NEG) 27 - 31 pg 01-08-2020 PENDING LOC ATION [Entitic mass] 01:23-0400 [facility] (38044) MCHC (RBC) 33 g/dL (NEG) 32 - 36 g/dL 01-08-2020 PENDING LOCATION [Mass/Vol] 01:23-0400 [facility] (05221) MCV (RBC) 86 (NEG) 01-08-2020 PENDING LOCATI ON [Entitic vol] 01:23-0400 [facility] (04914) Monocytes (Bld) 0.9 10*3/uL (NEG) 0.3 - 0.9 01-08-2020 PEND ING LOCATION [#/Vol] 10*3/uL 01:0400 [facility] (85976) Monocytes/100 13 % (H) 2 - 8 % 01-08-2020 PENDING LOCATION WBC (Bld) 01: [facility] (39612) Neutrophils 4.7 10*3/uL (NEG) 1.7 - 7 10*3/uL 01-08-2020 PE NDING LOCATION (Bld) [#/Vol] 01:0 [facility] (04753) Neutrophils/100 70 % (NEG) 40 - 60 % 01-08-2020 PENDIN G LOCATION WBC (Bld) 01: [facility] (40145) Platelet mean 11.1 (H) 01-08-2020 PENDING LOCA TION volume (Bld) 01: [facility] (77550) [Entitic vol] Platelets (Bld) 149 10*3/uL (NEG) 150 - 450 01-08-2020 PEND ING LOCATION [#/Vol] 10*3/uL 01: [facility] (18258) Potassium 4.0 mmol/L (NEG) 3.7 - 5.2 mmol/L 01-08-2020 PEND ING LOCATION [Moles/Vol] 01: [facility] (99590) Protein 6.3 g/dL (L) 6.4 - 8.3 g/dL 01-08-2020 PENDING LOCATION [Mass/Vol] 01:0 [facility] (67165) PT Coag (PPP) 24.0 s (H) 9.4 - 12.5 s 01-08-2020 PENDI NG LOCATION [Time] 01: [facility] () RBC (Bld) 3.52 10*6/uL (L) 4.2 - 6.1 01-08-2020 PENDING L OCATION [#/Vol] 10*6/uL 01:0 [facility] (78438) Sodium 137 mmol/L (NEG) 135 - 145 mmol/L 01-08-2020 PEND ING LOCATION [Moles/Vol] 01:0 [facility] (75888) Urea nitrogen 35 mg/dL (H) 7 - 20 mg/dL 01-08-2020 PENDI NG LOCATION [Mass/Vol] 01:0 [facility] (92912) Urea 19 mg/mg (no code) 6 - 22 mg/mg 01-08-2020 PENDING L OCATION nitrogen/Creatin 01: [facility] (05807) ine [Mass ratio] WBC (Bld) 6.8 10*3/uL (NEG) 3.5 - 10.5 01-08-2020 PENDING L OCATION [#/Vol] 10*3/uL [facility] (19898) not yet categorized on 2020-01-07 no information NAME: (no code) PENDING LOCATIO ELMO PATEL [facility] (95009) D ~MED REC#: [id number] ~ ~PHYSICIAN: GODFREY ZEPEDA DO ~Subjective ~HPI/CC [...] ~PCP placed him on Coumadin due to [place] stenosis 1 year ago ~Large [...] Oriented x3, No Motor/Sensory Deficits, Normal 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 ~ ~FIM ~Transfers ~Therapy Code Descriptions/Def initions ~ ~Functional [place] Measure: ~0=Not Assessed/NA 4=Minimal Assistance ~1=Total Assistance 5=Supervision or Setup ~2=Maximal Assistance 6=Modified [place] ~3=Moderate Assistance 7=Complete IndependenceSCAL E: Activities may be completed with or without ~assistive devices. ~ ~1-Wvhrwfablq-gb tient completes the activity by him/herself with no assistance from a helper. ~5-Set-up or Clean-up Assistance-helpe r sets up or cleans up; patient completes activity. [place] ~assists only prior to or ~ following the activity. ~4-Supervision or Touching Assistance-helpe r provides verbal cues and/or touching/steadyi ng and/or ~contact guard assistance as patient completes activity. Assistance may be provided ~ throughout the activity or intermittently. ~3-Partial/Moder ate Assistance-helpe r does LESS THAN HALF the effort. [place] lifts, holds or supports~trunk or limbs, but provides less than half the effort. ~2-Substantial/M aximal Assistance-helpe r does MORE THAN HALF the effort. [place] lifts or holds trunk ~or limbs and provides more than half the effort. ~5-Rxccmjscf-ovc per does ALL the effort. Patient does [...] and poured into tea. Pt able to roll picker bowl and ~bring food to his [...] ~Peripheral neuropathy ~CKD ~CHF ~Poor motivation ~TREE ~[place] stenosis maintained on Coumadin ~ [...] mg/dL 01-07-2020 PENDING LOCATION [Mass/Vol] 02:12-0400 [facility] (39346) Glucose 170 mg/dL (H) 60 - 125 mg/dL 01-07-2020 PENDING LOCATION [Mass/Vol] 06:11-0400 [facility] (10515) Glucose 195 mg/dL (H) 60 - 125 mg/dL 01-07-2020 PENDING LOCATION [Mass/Vol] 12:01-0400 [facility] (36237) Glucose 226 mg/dL (H) 60 - 125 mg/dL 01-07-2020 PENDING LOCATION [Mass/Vol] 14:58-0400 [facility] (07475) INR Coag 1.8 (H) 01-07-2020 PENDING LOCATI ON (Platelet poor 00:30-0400 [facility] (02377) plasma or blood) [Relative time] PT Coag (PPP) 21.4 s (H) 9.4 - 12.5 s 01-07-2020 PENDI NG LOCATION [Time] 00:30-0400 [facility] (94095) not yet categorized on 2020-01-06 no information NAME: (no code) PENDING LOCATIO ELMO PATEL S (05109) D ~MED REC#: [id number] ~ ~PHYSICIAN: PETEY WHITE LANDSCAPE NURSERYMAN ~PT Daily Note-Current ~Subjective ~Pt in bed resting, upon arrival. Pt agrees to PT. ~ ~Pain ~ ~ Numeric Pain Scale: 0-No Pain ~ Location: No Pain Reported ~ ~Mental Status ~Patient Orientation: Person, Place, Time, Situation ~ ~Transfers ~SCALE: Activities may be completed with or without assistive devices. ~ ~5-Iimesdnmym-xd tient completes the activity by him/herself with no assistance from a helper. ~5-Set-up or Clean-up Assistance-helpe r sets up or cleans up; patient completes activity. [place] ~assists only prior to or ~ following the activity. ~4-Supervision or Touching Assistance-helpe r provides verbal cues and/or touching/steadyi ng and/or ~contact guard assistance as patient completes activity. Assistance may be provided ~ throughout the activity or intermittently. ~3-Partial/Moder ate Assistance-helpe r does LESS THAN HALF the effort. [place] lifts, holds or supports~trunk or limbs, but provides less than half the effort. ~2-Substantial/M aximal Assistance-helpe r does MORE THAN HALF the effort. [place] lifts or holds trunk ~or limbs and provides more than half the effort. ~5-Brcypjaja-ywo per does ALL the effort. 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 ~ ~FIM ~Transfers ~Therapy Code Descriptions/Def initions ~ ~Functional [place] Measure: ~0=Not Assessed/NA 4=Minimal Assistance ~1=Total Assistance 5=Supervision or Setup ~2=Maximal Assistance 6=Modified [place] ~3=Moderate Assistance 7=Complete IndependenceSCAL E: Activities may be completed with or without ~assistive devices. ~ ~0-Luzapoqdvs-rb tient completes the activity by him/herself with no assistance from a helper. ~5-Set-up or Clean-up Assistance-helpe r sets up or cleans up; patient completes activity. [place] ~assists only prior to or ~ following the activity. ~4-Supervision or Touching Assistance-helpe r provides verbal cues and/or touching/steadyi ng and/or ~contact guard assistance as patient completes activity. Assistance may be provided ~ throughout the activity or intermittently. ~3-Partial/Moder ate Assistance-helpe r does LESS THAN HALF the effort. [place] lifts, holds or supports~trunk or limbs, but provides less than half the effort. ~2-Substantial/M aximal Assistance-helpe r does MORE THAN HALF the effort. [place] lifts or holds trunk ~or limbs and provides more than half the effort. ~4-Nknwtqsbq-xqs per does ALL the effort. Patient does [...] and poured into tea. Pt able to roll picker bowl and ~bring food to his [...] ~Peripheral neuropathy ~CKD ~CHF ~Poor motivation ~TREE ~[place] stenosis maintained on Coumadin ~ [...] mg/dL 01-06-2020 PENDING LOCATION [Mass/Vol] 00:42-0400 [facility] ([id number]) Glucose 186 mg/dL (H) 60 - 125 mg/dL 01-06-2020 PENDING LOCATION [Mass/Vol] 06:31-0400 [facility] ([id number]) Glucose 213 mg/dL (H) 60 - 125 mg/dL 01-06-2020 PENDING LOCATION [Mass/Vol] 10:53-0400 [facility] ([id number]) Glucose 174 mg/dL (H) 60 - 125 mg/dL 01-06-2020 PENDING LOCATION [Mass/Vol] 16:18-0400 [facility] ([id number]) not yet categorized on 2020-01-05 no information NAME: (no code) PENDING LOCATIO ELMO PATEL [facility] ([id number]) D ~MED REC#: [id number] ~ ~PHYSICIAN: MARIA A KEENE ~OT Current Status-Daily Note ~Subjective ~Pt alert, lying in bed. Pt agrees to therapy. Pt c/o dizziness throughout therapy, reported to ~nrsg. ~ ~Mental Status/Objective ~Patient Orientation: Person, Place, Time, Situation ~Attachments: IV ~ ~ADL-Treatment ~OT/PT co-treat ([id number]), skills of 2 clinicians required due to [...] room. ~Therapy Code Descriptions/Def initions ~ ~Functional [place] Measure: ~0=Not Assessed/NA 4=Minimal Assistance ~1=Total Assistance 5=Supervision or Setup ~2=Maximal Assistance 6=Modified [place] ~3=Moderate Assistance 7=Complete IndependenceSCAL E: Activities may be completed with or without ~assistive devices. ~ ~1-Oyrwdpyzmc-wz tient completes the activity by him/herself with no assistance from a helper. ~5-Set-up or Clean-up Assistance-helpe r sets up or cleans up; patient completes activity. [place] ~assists only prior to or ~ following the activity. ~4-Supervision or Touching Assistance-helpe r provides verbal cues and/or touching/steadyi ng and/or ~contact guard assistance as patient completes activity. Assistance may be provided ~ throughout the activity or intermittently. ~3-Partial/Moder ate Assistance-helpe r does LESS THAN HALF the effort. [place] lifts, holds or supports~trunk or limbs, but provides less than half the effort. ~2-Substantial/M aximal Assistance-helpe r does MORE THAN HALF the effort. [place] lifts or holds trunk ~or limbs and provides more than half the effort. ~6-Xknhzknif-orm per does ALL the effort. Patient does [...] 17, 2020 ~Shower/bathe self: 2 ~ ~OT Retirement Goals ~Perianesthesia Rn Goals ~Time Frame: Feb 01, 2020 ~Eating [...] visit-ADL 6 (90 min) co-treat with PT [id number], individual [id number] ~ ~ ~ ~MARIA A KEENE Jan 05, 2020 09:10 ~ ~ ~<Created by MARIA A VYAS> ~<Electronically signed by MARIA A VYAS> 01/05/20 1042 ~ ~ no information NAME: (no code) PENDING FELIPEATIO Jeyson JENNXAVIELMO JAVIER ([id number]) D ~MED REC#: [id number] ~ ~PHYSICIAN: GODFREY ZEPEDA DO ~Subjective ~HPI/CC On Admission ~Date Seen by Provider: Jan 05, 2020 ~Time Seen by Provider: 10:00 ~Subjective/Even ts-last exam ~Patient doing well ~Creatinine is 1.8 ~INR 1.4 so will increase Coumadin and start Lovenox 1mg/kg coverage until therapeutic ~PCP placed him on Coumadin due to [place] stenosis 1 year ago ~No [...] O2 Delivery O2 Flow Rate FiO2 ~ ~01/05/20 07:34 92 NIV CPAP 4.00 ~ ~01/05/20 [...] Oriented x3, No Motor/Sensory Deficits, 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 ~ ~FIM ~Transfers ~Therapy Code Descriptions/Def initions ~ ~Functional [place] Measure: ~0=Not Assessed/NA 4=Minimal Assistance ~1=Total Assistance 5=Supervision or Setup ~2=Maximal Assistance 6=Modified [place] ~3=Moderate Assistance 7=Complete IndependenceSCAL E: Activities may be completed with or without ~assistive devices. ~ ~6-Zcmrcboevq-mf tient completes the activity by him/herself with no assistance from a helper. ~5-Set-up or Clean-up Assistance-helpe r sets up or cleans up; patient completes activity. [place] ~assists only prior to or ~ following the activity. ~4-Supervision or Touching Assistance-helpe r provides verbal cues and/or touching/steadyi ng and/or ~contact guard assistance as patient completes activity. Assistance may be provided ~ throughout the activity or intermittently. ~3-Partial/Moder ate Assistance-helpe r does LESS THAN HALF the effort. [place] lifts, holds or supports~trunk or limbs, but provides less than half the effort. ~2-Substantial/M aximal Assistance-helpe r does MORE THAN HALF the effort. [place] lifts or holds trunk ~or limbs and provides more than half the effort. ~1-Luiikpgjs-hzx per does ALL the effort. Patient does [...] and poured into tea. Pt able to roll picker bowl and ~bring food to his mouth.) ~Oral Hygiene (QC): 7 ~Shower/Bathe Self (QC): 7 ~Upper Body Dressing (QC): 10 (Pt wearing hospital gown. He did not have a shirt to don/doff. ARU ~attempted to find shirt for pt to use, but did not have one large enough.) ~Lower Body Dressing (QC): 1 (Assist x2 in insulation manager order to manage pants up. 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 ~ ~5-Mtnnawjsxu-gr tient completes the activity by him/herself with no assistance from a helper. ~5-Set-up or Clean-up Assistance-helpe r sets up or cleans up; patient completes activity. [place] ~assists only prior to or ~ following the activity. ~4-Supervision or Touching Assistance-helpe r provides verbal cues and/or touching/steadyi ng and/or ~contact guard assistance as patient completes activity. Assistance may be provided ~ throughout the activity or intermittently. ~3-Partial/Moder ate Assistance-helpe r does LESS THAN HALF the effort. [place] lifts, holds or supports~trunk or limbs, but provides less than half the effort. ~2-Substantial/M aximal Assistance-helpe r does MORE THAN HALF the effort. [place] lifts or holds trunk ~or limbs and provides more than half the effort. ~4-Arokbcgpq-ker per does ALL the effort. Patient does [...] 3 ~Chair/bed-to- air transfer: 3 ~ ~PT Perianesthesia Rn Goals ~Retirement Goals ~PT Perianesthesia Rn Goals Time Frame: Jan 25, 2020 ~Roll [...] g/dL 01-05-2020 PENDING LOCATION [Mass/Vol] 01:37-0400 [facility] (36089) ALP [Catalytic 90 U/L (NEG) 44 - 147 U/L 01-05-2020 PEND ING LOCATION activity/Vol] 01:37-0400 [facility] (12550) ALT [Catalytic 19 U/L (NEG) 4 - 40 U/L 01-05-2020 PENDIN G LOCATION activity/Vol] 01:37-0400 [facility] ([id number]) Anion gap 9 mmol/L (NEG) 3 - 11 mmol/L 01-05-2020 PENDING LOCATION [Moles/Vol] 01:37-0400 [facility] ([id number]) AST [Catalytic 14 U/L (NEG) 10 - 34 U/L 01-05-2020 PENDI NG LOCATION activity/Vol] 01:37-0400 [facility] ([id number]) Basophils (Bld) 0.0 10*3/uL (NEG) 0 - 0.3 10*3/uL 01-05-2020 PENDING LOCATION [#/Vol] 01:37-0400 [facility] ([id number]) Basophils/100 0 % (NEG) 0.5 - 1 % 01-05-2020 PENDING LOCATION WBC (Bld) 01:37-0400 [facility] ([id number]) Bilirubin 0.5 mg/dL (NEG) 0.1 - 1.2 mg/dL 01-05-2020 [facility] G LOCATION [Mass/Vol] 01:37-0400 [facility] ([id number]) Calcium 8.5 mg/dL (NEG) 8.5 - 10.2 mg/dL 01-05-2020 [facility] LOCATION [Mass/Vol] 01:37-0400 [facility] (60036) Calcium 9.1 mg/dL (NEG) 8.5 - 10.2 mg/dL 01-05-2020 [facility] LOCATION [Mass/Vol] 01:37-0400 [facility] (82436) Chloride 102 mmol/L (NEG) 95 - 106 mmol/L 01-05-2020 PENDI LOCATION [Moles/Vol] 01:37-0400 [facility] (61854) CO2 [Moles/Vol] 22 mmol/L (NEG) 23 - 29 mmol/L 2020 P ENDING LOCATION 01:37-0400 [facility] (82290) Creatinine 1.82 mg/dL (H) 01-05-2020 PENDING LOCATI ON [Mass/Vol] 01:37-0400 [facility] (99328) Creatinine and 37 (no code) 01-05-2020 PENDING LOC ATION Glomerular 01:37-0400 [facility] (84547) filtration rate.predicted panel - Serum, Plasma or Blood Eosinophils 0.1 10*3/uL (NEG) 0.05 - 0.5 01-05-2020 PENDING LOCATION (Bld) [#/Vol] 10*3/uL 01:37-0400 [facility] (24613) Eosinophils/100 1 % (NEG) 1 - 4 % 01-05-2020 [facility] LOCATION WBC (Bld) 01:37-0400 [facility] (31937) Erythrocyte 15.1 % (H) 11.6 - 14.6 % 01-05-2020 [facility] LOCATION distribution 01:37-0400 [facility] (46891) width (RBC) [Ratio] Glucose 211 mg/dL (H) 60 - 125 mg/dL 01-05-2020 PENDING LOCATION [Mass/Vol] 01:37-0400 [facility] (58582) Glucose 189 mg/dL (H) 60 - 125 mg/dL 01-05-2020 PENDING LOCATION [Mass/Vol] 01:37-0400 [facility] (82843) Glucose 305 mg/dL (H) 60 - 125 mg/dL 01-05-2020 PENDING LOCATION [Mass/Vol] 06:40-0400 [facility] (62671) Glucose 218 mg/dL (H) 60 - 125 mg/dL 01-05-2020 PENDING LOCATION [Mass/Vol] 10:59-0400 [facility] (09615) Glucose 163 mg/dL (H) 60 - 125 mg/dL 01-05-2020 PENDING LOCATION [Mass/Vol] 15:46-0400 [facility] (81036) Hematocrit (Bld) 32 % (L) 36.1 - 50.3 % 01-05-2020 P ENDING LOCATION [Volume 01:37-0400 [facility] (34764) fraction] Hemoglobin (Bld) 10.6 g/dL (L) 12.1 - 17.2 g/dL 01-05-2020 PENDING LOCATION [Mass/Vol] 01:37-0400 [facility] (45984) INR Coag 1.4 (NEG) 01-05-2020 PENDING LOCATI ON (Platelet poor 01:37-0400 [facility] (62741) plasma or blood) [Relative time] Lymphocytes 1.0 10*3/uL (NEG) 0.9 - 2.9 01-05-2020 PENDING LOCATION (Bld) [#/Vol] 10*3/uL 01:37-0400 [facility] (74078) Lymphocytes/100 13 % (NEG) 20 - 40 % 01-04-2020 PENDIN G LOCATION WBC (Bld) 01:37-0400 [facility] (25760) MCH (RBC) 28 pg (NEG) 27 - 31 pg 01-05-2020 PENDING LOC ATION [Entitic mass] 01:37-0400 [facility] (48686) MCHC (RBC) 33 g/dL (NEG) 32 - 36 g/dL 01-05-2020 PENDING LOCATION [Mass/Vol] 01:37-0400 [facility] (42142) MCV (RBC) 85 (NEG) 06 PENDING LOCATI ON [Entitic vol] 01:37-0400 [facility] (21248) Monocytes (Bld) 0.8 10*3/uL (NEG) 0.3 - 0.9 01-05-2020 PEND ING LOCATION [#/Vol] 10*3/uL 01:37-0400 [facility] (27564) Monocytes/100 11 % (NEG) 2 - 8 % 01-04-2019 PENDING LOCATION WBC (Bld) 01:37-0400 [facility] (17088) Neutrophils 5.6 10*3/uL (NEG) 1.7 - 7 10*3/uL 01-04-2020 [facility] LOCATION (Bld) [#/Vol] 01:37-0400 [facility] (13731) Neutrophils/100 74 % (NEG) 40 - 60 % 01-05-2020 PENDIN G LOCATION WBC (Bld) 01:37-0400 [facility] (61597) Platelet mean 11.1 (H) 01-05-2020 PENDING LOCA TION volume (Bld) 01:37-0400 [facility] (59510) [Entitic vol] Platelets (Bld) 130 10*3/uL (NEG) 150 - 450 01-05-2020 PEND ING LOCATION [#/Vol] 10*3/uL 01:37-0400 [facility] (12129) Potassium 4.1 mmol/L (NEG) 3.7 - 5.2 mmol/L 01-05-2020 PEND ING LOCATION [Moles/Vol] 01:37-0400 [facility] (71837) Protein 6.3 g/dL (L) 6.4 - 8.3 g/dL 01-05-2020 PENDING LOCATION [Mass/Vol] 01: [facility] (49222) PT Coag (PPP) 18.0 s (H) 9.4 - 12.5 s 01-05-2020 PENDI NG LOCATION [Time] 01: [facility] () RBC (Bld) 3.75 10*6/uL (L) 4.2 - 6.1 01-05-2020 PENDING L OCATION [#/Vol] 10*6/uL 01: [facility] () Sodium 133 mmol/L (L) 135 - 145 mmol/L 01-05-2020 PEND ING LOCATION [Moles/Vol] 01: [facility] () Urea nitrogen 30 mg/dL (H) 7 - 20 mg/dL 01-05-2020 PENDI NG LOCATION [Mass/Vol] 01: [facility] () Urea 16 mg/mg (no code) 6 - 22 mg/mg 01-05-2020 PENDING L OCATION nitrogen/Creatin 01: [facility] () ine [Mass ratio] WBC (Bld) 7.5 10*3/uL (NEG) 3.5 - 10.5 01-05-2020 PENDING L OCATION [#/Vol] 10*3/uL 01: [facility] () not yet categorized on 2020-01-04 no information NAME: (no code) PENDING LOCATIO Jeyson ELMO GARCIA [facility] () D ~MED REC#: [id number] ~ ~PHYSICIAN: BETTY STRONG PT ~PT Daily [...] completed with or without assistive devices. ~ ~6-Cnjdgcwust-ju tient completes the activity by him/herself with no assistance from a helper. ~5-Set-up or Clean-up Assistance-helpe r sets up or cleans up; patient completes activity. [place] ~assists only prior to or ~ following the activity. ~4-Supervision or Touching Assistance-helpe r provides verbal cues and/or touching/steadyi ng and/or ~contact guard assistance as patient completes activity. Assistance may be provided ~ throughout the activity or intermittently. ~3-Partial/Moder ate Assistance-helpe r does LESS THAN HALF the effort. [place] lifts, holds or supports~trunk or limbs, but provides less than half the effort. ~2-Substantial/M aximal Assistance-helpe r does MORE THAN HALF the effort. [place] lifts or holds trunk ~or limbs and provides more than half the effort. ~1-Wfzfimozi-zkh per does ALL the effort. Patient does [...] to sit and then stand pivot to , propelled to therapy gym, stood x3 in [...] 3 ~Chair/bed-to-ch air transfer: 3 ~ ~PT Perianesthesia Rn Goals ~Perianesthesia Rn Goals ~PT Perianesthesia Rn Goals Time Frame: Jan 25, 2020 ~Roll [...] ~<Electronically signed by BETTY STRONG PT> 01/04/20 5763 ~ ~ no information NAME: (no code) PENDING JUSTINO ELMO PATEL ([id number]) D ~MED REC#: [id number] ~ ~PHYSICIAN: YFN SUTTON ON OT ~OT Current Status-Daily Note ~Subjective ~Pt laying in bed sleeping, easily awoken for therapy. OT/PT cotreat due to poor patient mobility, ~strength, endurance, balance, to coordinate UE and LE during activity, and to reduce risk of falls ~ ~ADL-Treatment ~Therapy Code Descriptions/Def initions ~ ~Functional [place] Measure: ~0=Not Assessed/NA 4=Minimal Assistance ~1=Total Assistance 5=Supervision or Setup ~2=Maximal Assistance 6=Modified [place] ~3=Moderate Assistance 7=Complete IndependenceSCAL E: Activities may be completed with or without ~assistive devices. ~ ~5-Umapcwxzqg-rb tient completes the activity by him/herself with no assistance from a helper. ~5-Set-up or Clean-up Assistance-helpe r sets up or cleans up; patient completes activity. [place] ~assists only prior to or ~ following the activity. ~4-Supervision or Touching Assistance-helpe r provides verbal cues and/or touching/steadyi ng and/or ~contact guard assistance as patient completes activity. Assistance may be provided ~ throughout the activity or intermittently. ~3-Partial/Moder ate Assistance-helpe r does LESS THAN HALF the effort. [place] lifts, holds or supports~trunk or limbs, but provides less than half the effort. ~2-Substantial/M aximal Assistance-helpe r does MORE THAN HALF the effort. [place] lifts or holds trunk ~or limbs and provides more than half the effort. ~2-Jfwansesh-mhg per does ALL the effort. Patient does [...] and poured into tea. Pt able to roll picker bowl and ~bring food to his [...] 17, 2020 ~Shower/bathe self: 2 ~ ~OT Perianesthesia Rn Goals ~Retirement Goals ~Time Frame: Feb 01, 2020 ~Eating [...] (hr/min): 40 ~Billed Treatment Time ~OT/PT cotreat [id number] ~ ~1, FA 3 (40') ~ ~ ~ ~SOPHIE SUTTON OT Jan 04, 2020 14:56 ~ ~ ~<Created by JESUS SUTTON OT> ~<Electronically signed by JESSU SUTTON OT> 01/04/20 1458 ~ ~ laboratory on 2020-01-04 Anion gap 8 mmol/L (NEG) 3 - 11 mmol/L 01-04-2020 PENDING LOCATION [Moles/Vol] 02:10-0400 [facility] ([id number]) Calcium 8.6 mg/dL (NEG) 8.5 - 10.2 mg/dL 01-04-2020 PENDI NG LOCATION [Mass/Vol] 02:10-0400 [facility] (48602) Chloride 103 mmol/L (NEG) 95 - 106 mmol/L 01-04-2020 PENDI NG LOCATION [Moles/Vol] 02:10-0400 [facility] (04854) CO2 [Moles/Vol] 24 mmol/L (NEG) 23 - 29 mmol/L 01-04-2020 P ENDING LOCATION 02:10-0400 [facility] (56801) Creatinine 1.78 mg/dL (H) 01-04-2020 PENDING LOCATI ON [Mass/Vol] 02:10-0400 [facility] (15822) Creatinine and 38 (no code) 01-04-2020 PENDING LOC ATION Glomerular 02:10-0400 [facility] (56015) filtration rate.predicted panel - Serum, Plasma or Blood Erythrocyte 15.2 % (H) 11.6 - 14.6 % 01-04-2020 PENDIN G LOCATION distribution 02:10-0400 [facility] (09598) width (RBC) [Ratio] Glucose 183 mg/dL (H) 60 - 125 mg/dL 01-04-2020 PENDING LOCATION [Mass/Vol] 00:57-0400 [facility] ([id number]) Glucose 139 mg/dL (H) 60 - 125 mg/dL 01-04-2020 PENDING LOCATION [Mass/Vol] 02:10-0400 [facility] (33079) Glucose 74 mg/dL (NEG) 60 - 125 mg/dL 01-04-2020 PENDING LOCATION [Mass/Vol] 05:04-0400 [facility] ([id number]) Glucose 91 mg/dL (NEG) 60 - 125 mg/dL 01-04-2020 PENDING LOCATION [Mass/Vol] 06:05-0400 [facility] (34298) Glucose 136 mg/dL (H) 60 - 125 mg/dL 01-04-2020 PENDING LOCATION [Mass/Vol] 07:17-0400 [facility] (49861) Glucose 273 mg/dL (H) 60 - 125 mg/dL 01-04-2020 PENDING LOCATION [Mass/Vol] 10:59-0400 [facility] (45509) Glucose 326 mg/dL (H) 60 - 125 mg/dL 01-04-2020 PENDING LOCATION [Mass/Vol] 13:03-0400 [facility] (69360) Glucose 345 mg/dL (H) 60 - 125 mg/dL 01-04-2020 PENDING LOCATION [Mass/Vol] 15:27-0400 [facility] (20182) Glucose 293 mg/dL (H) 60 - 125 mg/dL 01-04-2020 PENDING LOCATION [Mass/Vol] 19:22-0400 [facility] (59441) Glucose 208 mg/dL (H) 60 - 125 mg/dL 01-04-2020 PENDING LOCATION [Mass/Vol] 22:53-0400 [facility] (36699) Hematocrit (Bld) 32 % (L) 36.1 - 50.3 % 01-04-2020 P ENDING LOCATION [Volume 02:10-0400 [facility] (02075) fraction] Hemoglobin (Bld) 10.7 g/dL (L) 12.1 - 17.2 g/dL 01-04-2020 PENDING LOCATION [Mass/Vol] 02:10-0400 [facility] (59690) INR Coag 1.2 (NEG) 01-04-2020 PENDING LOCATI ON (Platelet poor 02:10-0400 [facility] (34962) plasma or blood) [Relative time] MCH (RBC) 28 pg (NEG) 27 - 31 pg 01-04-2020 PENDING LOC ATION [Entitic mass] 02:10-0400 [facility] (95334) MCHC (RBC) 34 g/dL (NEG) 32 - 36 g/dL 01-04-2020 PENDING LOCATION [Mass/Vol] 02:10-0400 [facility] (33550) MCV (RBC) 84 (NEG) 01-04-2020 PENDING LOCATI ON [Entitic vol] 02:10-0400 [facility] (79090) Platelet mean 10.5 (H) 01-04-2020 PENDING LOCA TION volume (Bld) 02:10-0400 [facility] (68092) [Entitic vol] Platelets (Bld) 131 10*3/uL (NEG) 150 - 450 01-04-2020 PEND ING LOCATION [#/Vol] 10*3/uL 02:10-0400 [facility] (33600) Potassium 3.8 mmol/L (NEG) 3.7 - 5.2 mmol/L 01-04-2020 PEND ING LOCATION [Moles/Vol] 02:10-0400 [facility] (19701) PT Coag (PPP) 15.5 s (H) 9.4 - 12.5 s 01-04-2020 PENDI NG LOCATION [Time] 02:10-0400 [facility] (71355) RBC (Bld) 3.78 10*6/uL (L) 4.2 - 6.1 01-04-2020 PENDING L OCATION [#/Vol] 10*6/uL 02:0 [facility] (10681) Sodium 135 mmol/L (NEG) 135 - 145 mmol/L 01-04-2020 PEND ING LOCATION [Moles/Vol] 02: [facility] (50534) Urea nitrogen 27 mg/dL (H) 7 - 20 mg/dL 01-04-2020 PENDI NG LOCATION [Mass/Vol] 02: [facility] () Urea 15 mg/mg (no code) 6 - 22 mg/mg 01-04-2020 PENDING L OCATION nitrogen/Creatin 02: [facility] () ine [Mass ratio] WBC (Bld) 7.8 10*3/uL (NEG) 3.5 - 10.5 01-04-2020 PENDING L OCATION [#/Vol] 10*3/uL 02:0 [facility] () not yet categorized on 2020-01-03 PROCALCITONIN 0.07 (NEG) 01-03-2020 PENDING LOCA TION (PCT) 00:50-0400 [facility] (35567) laboratory on 2020-01-03 Albumin 3.2 g/dL (NEG) 3.4 - 5.4 g/dL 01-03-2020 PENDING LOCATION [Mass/Vol] 00:50-0400 [facility] (80317) ALP [Catalytic 90 U/L (NEG) 44 - 147 U/L 01-03-2020 PEND ING LOCATION activity/Vol] 00:50-0400 [facility] (62553) ALT [Catalytic 19 U/L (NEG) 4 - 40 U/L 01-03-2020 PENDIN G LOCATION activity/Vol] 00:50-0400 [facility] (25636) Anion gap 12 mmol/L (NEG) 3 - 11 mmol/L 01-03-2020 PENDING LOCATION [Moles/Vol] 00:50-0400 [facility] (75129) AST [Catalytic 19 U/L (NEG) 10 - 34 U/L 01-03-2020 PENDI NG LOCATION activity/Vol] 00:50-0400 [facility] ([id number]) Basophils (Bld) 0.0 10*3/uL (NEG) 0 - 0.3 10*3/uL 01-03-2020 PENDING LOCATION [#/Vol] 00:50-0400 [facility] (89894) Basophils/100 0 % (NEG) 0.5 - 1 % 01-03-2020 PENDING LOCATION WBC (Bld) 00:50-0400 [facility] (24529) Bilirubin 0.6 mg/dL (NEG) 0.1 - 1.2 mg/dL 01-03-2020 [facility] LOCATION [Mass/Vol] 00:50-0400 [facility] (21259) Calcium 8.4 mg/dL (L) 8.5 - 10.2 mg/dL 01-03-2020 [facility] LOCATION [Mass/Vol] 00:50-0400 [facility] (51125) Calcium 9.0 mg/dL (NEG) 8.5 - 10.2 mg/dL 01-03-2020 [facility] LOCATION [Mass/Vol] 00:50-0400 [facility] (00064) Chloride 102 mmol/L (NEG) 95 - 106 mmol/L 01-03-2020 [facility] LOCATION [Moles/Vol] 00:50-0400 [facility] (21298) CO2 [Moles/Vol] 17 mmol/L (L) 23 - 29 mmol/L 01-03-2020 P ENDING LOCATION 00:50-0400 [facility] (85638) Creatinine 1.70 mg/dL (H) 01-03-2020 PENDING LOCATI ON [Mass/Vol] 00:50-0400 [facility] (73792) Creatinine and 40 (no code) 01-03-2020 PENDING LOC ATION Glomerular 00:50-0400 [facility] (01875) filtration rate.predicted panel - Serum, Plasma or Blood Eosinophils 0.1 10*3/uL (NEG) 0.05 - 0.5 01-03-2020 PENDING LOCATION (Bld) [#/Vol] 10*3/uL 00:50-0400 [facility] (75071) Eosinophils/100 2 % (NEG) 1 - 4 % 01-03-2020 [facility] LOCATION WBC (Bld) 00:50-0400 [facility] (78876) Erythrocyte 15.1 % (H) 11.6 - 14.6 % 01-03-2020 [facility] LOCATION distribution 00:50-0400 [facility] (40301) width (RBC) [Ratio] Glucose 387 mg/dL (H) 60 - 125 mg/dL 01-03-2020 PENDING LOCATION [Mass/Vol] 00:50-0400 [facility] (31343) Glucose 431 mg/dL (HH) 60 - 125 mg/dL 01-03-2020 PENDING LOCATION [Mass/Vol] 06:02-0400 [facility] (69959) Glucose 381 mg/dL (H) 60 - 125 mg/dL 01-03-2020 PENDING LOCATION [Mass/Vol] 10:22-0400 [facility] (25979) Glucose 287 mg/dL (H) 60 - 125 mg/dL 01-03-2020 PENDING LOCATION [Mass/Vol] 15:56-0400 [facility] (09509) Glucose 255 mg/dL (H) 60 - 125 mg/dL 01-03-2020 PENDING LOCATION [Mass/Vol] 20:44-0400 [facility] (72807) Hematocrit (Bld) 31 % (L) 36.1 - 50.3 % 01-03-2020 P ENDING LOCATION [Volume 00:50-0400 [facility] (50675) fraction] Hemoglobin (Bld) 10.6 g/dL (L) 12.1 - 17.2 g/dL 01-03-2020 PENDING LOCATION [Mass/Vol] 00:50-0400 [facility] ([id number]) Lymphocytes 1.1 10*3/uL (NEG) 0.9 - 2.9 01-03-2020 PENDING LOCATION (Bld) [#/Vol] 10*3/uL 00:50-0400 [facility] (45728) Lymphocytes/100 19 % (NEG) 20 - 40 % 01-03-2020 PENDIN G LOCATION WBC (Bld) 00:50-0400 [facility] (48571) MCH (RBC) 28 pg (NEG) 27 - 31 pg 01-03-2020 PENDING LOC ATION [Entitic mass] 00:50-0400 [facility] (51734) MCHC (RBC) 34 g/dL (NEG) 32 - 36 g/dL 01-03-2020 PENDING LOCATION [Mass/Vol] 00:50-0400 [facility] (12229) MCV (RBC) 84 (NEG) 01-03-2020 PENDING LOCATI ON [Entitic vol] 00:50-0400 [facility] ([id number]) Monocytes (Bld) 0.4 10*3/uL (NEG) 0.3 - 0.9 01-03-2020 PEND ING LOCATION [#/Vol] 10*3/uL 00:50-0400 [facility] (15931) Monocytes/100 8 % (NEG) 2 - 8 % 01-03-2020 PENDING LOCATION WBC (Bld) 00:50-0400 [facility] (63850) Neutrophils 4.1 10*3/uL (NEG) 1.7 - 7 10*3/uL 01-03-2020 PE NDING LOCATION (Bld) [#/Vol] 00:50-0400 [facility] (73715) Neutrophils/100 72 % (NEG) 40 - 60 % 01-03-2020 PENDIN G LOCATION WBC (Bld) 00:50-0400 [facility] ([id number]) Platelet mean 10.9 (H) 01-03-2020 PENDING LOCA TION volume (Bld) 00:50-0400 [facility] (39946) [Entitic vol] Platelets (Bld) 109 10*3/uL (L) 150 - 450 01-03-2020 PEND ING LOCATION [#/Vol] 10*3/uL 00:50-0400 [facility] (65276) Potassium 4.3 mmol/L (NEG) 3.7 - 5.2 mmol/L 01-03-2020 PEND ING LOCATION [Moles/Vol] 00:50-0400 [facility] ([id number]) Protein 6.1 g/dL (L) 6.4 - 8.3 g/dL 01-03-2020 PENDING LOCATION [Mass/Vol] 00:50-0400 [facility] ([id number]) RBC (Bld) 3.75 10*6/uL (L) 4.2 - 6.1 01-03-2020 PENDING L OCATION [#/Vol] 10*6/uL 00:50-0400 [facility] (64214) Sodium 131 mmol/L (L) 135 - 145 mmol/L 01-03-2020 PEND ING LOCATION [Moles/Vol] 00:50-0400 [facility] (65307) Urea nitrogen 27 mg/dL (H) 7 - 20 mg/dL 01-03-2020 PENDI NG LOCATION [Mass/Vol] 00:50-0400 [facility] ([id number]) Urea 16 mg/mg (no code) 6 - 22 mg/mg 01-03-2020 PENDING L OCATION nitrogen/Creatin 00:50-0400 [facility] ([id number]) ine [Mass ratio] WBC (Bld) 5.8 10*3/uL (NEG) 3.5 - 10.5 01-03-2020 PENDING L OCATION [#/Vol] 10*3/uL 00:50-0400 [facility] ([id number]) not yet categorized on 2020-01-02 COLONY COUNT . (no code) 01-02-2020 PENDING LOCAT ION 13:47-0400 [facility] ([id number]) COLONY COUNT <10,000 (no code) 01-02-2020 PENDING LOCAT ION 13:47-0400 [facility] ([id number]) SUSCEPTIBILITY SEE COMMENTS (no code) 01-02-2020 PENDING LO CATION 13:47-0400 [facility] ([id number]) laboratory on 2020-01-02 Albumin 3.5 g/dL (NEG) 3.4 - 5.4 g/dL 01-02-2020 PENDING LOCATION [Mass/Vol] 13:35-0400 [facility] ([id number]) ALP [Catalytic 91 U/L (NEG) 44 - 147 U/L 01-02-2020 PEND ING LOCATION activity/Vol] 13:35-0400 [facility] ([id number]) ALT [Catalytic 21 U/L (NEG) 4 - 40 U/L 01-02-2020 PENDIN G LOCATION activity/Vol] 13:35-0400 [facility] ([id number]) Amorphous MOD FRANCIS URATES (A) 01-02-2020 PENDING LO CATION sediment LM Ql 13:47-0400 [facility] ([id number]) (Urine sed) Anion gap 10 mmol/L (NEG) 3 - 11 mmol/L 01-02-2020 PENDING LOCATION [Moles/Vol] 13:35-0400 [facility] ([id number]) aPTT Coag (PPP) 34 s (NEG) 25 - 35 s 01-02-2020 PENDIN G LOCATION [Time] 13:35-0400 [facility] ([id number]) AST [Catalytic 13 U/L (NEG) 10 - 34 U/L 01-02-2020 PENDI NG LOCATION activity/Vol] 13:35-0400 [facility] ([id number]) Bacteria NG (no code) 01-02-2020 PENDING LOCATI ON identified Cx 13:35-0400 [facility] ([id number]) Nom (Bld) Bacteria PROGRESS (no code) 01-02-2020 PENDING LOCATI ON identified Cx 13:47-0400 [facility] ([id number]) Nom (U) Bacteria [id number] (no code) 01-02-2020 PENDING LOCATI ON identified Cx 13:47-0400 [facility] ([id number]) Nom (U) Bacteria LM Ql Negative (no code) 01-02-2020 PENDING LOC ATION (Urine sed) 13:47-0400 [facility] ([id number]) Basophils (Bld) 0.0 10*3/uL (NEG) 0 - 0.3 10*3/uL 01-02-2020 PENDING LOCATION [#/Vol] 13:35-0400 [facility] ([id number]) Basophils/100 0 % (NEG) 0.5 - 1 % 01-02-2020 PENDING LOCATION WBC (Bld) 13:35-0400 [facility] ([id number]) Bilirubin 0.6 mg/dL (NEG) 0.1 - 1.2 mg/dL 01-02-2020 PENDIN G LOCATION [Mass/Vol] 13:35-0400 [facility] ([id number]) Bilirubin Ql (U) Negative (no code) 01-02-2020 PENDING L OCATION 13:47-0400 [facility] ([id number]) Calcium 8.7 mg/dL (NEG) 8.5 - 10.2 mg/dL 01-02-2020 PENDI NG LOCATION [Mass/Vol] 13:35-0400 [facility] ([id number]) Calcium 9.1 mg/dL (NEG) 8.5 - 10.2 mg/dL 01-02-2020 PENDI NG LOCATION [Mass/Vol] 13:35-0400 [facility] ([id number]) Casts LM Ql NONE (no code) 01-02-2020 PENDING LOCATI ON (Urine sed) 13:47-0400 [facility] ([id number]) Chloride 95 mmol/L (L) 95 - 106 mmol/L 01-02-2020 PENDIN G LOCATION [Moles/Vol] 13:35-0400 [facility] ([id number]) Clarity (U) CLEAR (no code) 01-02-2020 PENDING LOCATI ON 13:47-0400 [facility] ([id number]) CO2 [Moles/Vol] 22 mmol/L (NEG) 23 - 29 mmol/L 01-02-2020 P ENDING LOCATION 13:35-0400 [facility] ([id number]) Color (U) YELLOW (no code) 01-02-2020 PENDING LOCATI ON 13:47-0400 [facility] ([id number]) Creatinine 2.00 mg/dL (H) 01-02-2020 PENDING LOCATI ON [Mass/Vol] 13:35-0400 [facility] ([id number]) Creatinine and 33 (no code) 01-02-2020 PENDING LOC ATION Glomerular 13:35-0400 [facility] ([id number]) filtration rate.predicted panel - Serum, Plasma or Blood CRP [Mass/Vol] 6.91 (H) 01-02-2020 PENDING LOC ATION 13:35-0400 [facility] ([id number]) Crystals LM Ql PRESENT (A) 01-02-2020 PENDING LOC ATION (Urine sed) 13:47-0400 [facility] ([id number]) Eosinophils 0.1 10*3/uL (NEG) 0.05 - 0.5 01-02-2020 PENDING LOCATION (Bld) [#/Vol] 10*3/uL 13:35-0400 [facility] ([id number]) Eosinophils/100 1 % (NEG) 1 - 4 % 01-02-2020 PENDIN G LOCATION WBC (Bld) 13:35-0400 [facility] ([id number]) Erythrocyte 14.9 % (H) 11.6 - 14.6 % 01-02-2020 PENDIN G LOCATION distribution 13:35-0400 [facility] ([id number]) width (RBC) [Ratio] Glucose 543 mg/dL (HH) 60 - 125 mg/dL 01-02-2020 PENDING LOCATION [Mass/Vol] 13:27-0400 [facility] ([id number]) Glucose 608 mg/dL (HH) 60 - 125 mg/dL 01-02-2020 PENDING LOCATION [Mass/Vol] 13:35-0400 [facility] ([id number]) Glucose Auto 3+ (A) 01-02-2020 PENDING LOCAT ION test strip Ql 13:47-0400 [facility] ([id number]) (U) Hematocrit (Bld) 32 % (L) 36.1 - 50.3 % 01-02-2020 P ENDING LOCATION [Volume 13:35-0400 [facility] ([id number]) fraction] Hemoglobin (Bld) 11.0 g/dL (L) 12.1 - 17.2 g/dL 01-02-2020 PENDING LOCATION [Mass/Vol] 13:35-0400 [facility] ([id number]) INR Coag 1.2 (NEG) 01-02-2020 PENDING LOCATI ON (Platelet poor 13:35-0400 [facility] ([id number]) plasma or blood) [Relative time] Ketones Auto Negative (no code) 01-02-2020 PENDING LOCAT ION test strip Ql 13:47-0400 [facility] ([id number]) (U) Lactate 0.85 mmol/L (NEG) 0.5 - 2.2 mmol/L 01-02-2020 PEN DING LOCATION [Moles/Vol] 13:35-0400 [facility] ([id number]) Leukocyte Negative (no code) 01-02-2020 PENDING LOCATI ON esterase Test 13:47-0400 [facility] ([id number]) strip Ql (U) Lymphocytes 0.9 10*3/uL (L) 0.9 - 2.9 01-02-2020 PENDING LOCATION (Bld) [#/Vol] 10*3/uL 13:35-0400 [facility] ([id number]) Lymphocytes/100 14 % (NEG) 20 - 40 % 01-02-2020 PENDIN G LOCATION WBC (Bld) 13:35-0400 [facility] ([id number]) MCH (RBC) 29 pg (NEG) 27 - 31 pg 01-02-2020 PENDING LOC ATION [Entitic mass] 13:35-0400 [facility] ([id number]) MCHC (RBC) 35 g/dL (NEG) 32 - 36 g/dL 01-02-2020 PENDING LOCATION [Mass/Vol] 13:35-0400 [facility] ([id number]) MCV (RBC) 83 (NEG) 01-02-2020 PENDING LOCATI ON [Entitic vol] 13:35-0400 [facility] ([id number]) Monocytes (Bld) 0.6 10*3/uL (NEG) 0.3 - 0.9 01-02-2020 PEND ING LOCATION [#/Vol] 10*3/uL 13:35-0400 [facility] ([id number]) Monocytes/100 10 % (NEG) 2 - 8 % 01-02-2020 PENDING LOCATION WBC (Bld) 13:35-0400 [facility] ([id number]) Mucus Ql (Urine Negative (no code) 01-02-2020 PENDING LO CATION sed) 13:47-0400 [facility] ([id number]) Natriuretic 228.9 pg/mL (H) 0 - 100 pg/mL 01-02-2020 PEND ING LOCATION peptide B (Bld) 13:35-0400 [facility] ([id number]) [Mass/Vol] Neutrophils 5.0 10*3/uL (NEG) 1.7 - 7 10*3/uL 01-02-2020 PE NDING LOCATION (Bld) [#/Vol] 13:35-0400 [facility] ([id number]) Neutrophils/100 75 % (NEG) 40 - 60 % 01-02-2020 PENDIN G LOCATION WBC (Bld) 13:35-0400 [facility] (13429) Nitrite Ql (U) Negative (no code) 01-02-2020 PENDING LOC ATION 13:47-0400 [facility] ([id number]) pH (U) 5.5 [pH] (no code) 4.6 - 8 [pH] 01-02-2020 PENDING L OCATION 13:47-0400 [facility] ([id number]) Platelet mean 10.6 (H) 01-02-2020 PENDING LOCA TION volume (Bld) 13:35-0400 [facility] ([id number]) [Entitic vol] Platelets (Bld) 112 10*3/uL (L) 150 - 450 01-02-2020 PEND ING LOCATION [#/Vol] 10*3/uL 13:35-0400 [facility] ([id number]) Potassium 4.5 mmol/L (NEG) 3.7 - 5.2 mmol/L 01-02-2020 PEND ING LOCATION [Moles/Vol] 13:35-0400 [facility] ([id number]) Protein 6.6 g/dL (NEG) 6.4 - 8.3 g/dL 01-02-2020 PENDING LOCATION [Mass/Vol] 13:35-0400 [facility] (27645) Protein Ql (U) 1+ (A) 01-02-2020 PENDING LOC ATION 13:47-0400 [facility] (74810) PT Coag (PPP) 15.4 s (H) 9.4 - 12.5 s 01-02-2020 PENDI NG LOCATION [Time] 13:35-0400 [facility] ([id number]) RBC (Bld) 3.83 10*6/uL (L) 4.2 - 6.1 01-02-2020 PENDING L OCATION [#/Vol] 10*6/uL 13:35-0400 [facility] (87702) RBC LM.HPF RARE (no code) 01-02-2020 PENDING LOCATI ON (Urine sed) 13:47-0400 [facility] (48691) [#/Area] RBC Ql (U) Negative (no code) 01-02-2020 PENDING LOCATI ON 13:47-0400 [facility] (32991) Sodium 127 mmol/L (L) 135 - 145 mmol/L 01-02-2020 PEND ING LOCATION [Moles/Vol] 13:35-0400 [facility] (48469) Specific gravity <= (no code) 01-02-2020 PENDING L OCATION (U) [Rel 13:47-0400 [facility] (89540) density] Urea nitrogen 33 mg/dL (H) 7 - 20 mg/dL 01-02-2020 PENDI NG LOCATION [Mass/Vol] 13:35-0400 [facility] ([id number]) Urea 17 mg/mg (no code) 6 - 22 mg/mg 01-02-2020 PENDING L OCATION nitrogen/Creatin 13:35-0400 [facility] (49435) ine [Mass ratio] Urobilinogen (U) 0.2 mg/dL (no code) 01-02-2020 PENDING L OCATION [Mass/Vol] 13:47-0400 [facility] (84802) WBC (Bld) 6.7 10*3/uL (NEG) 3.5 - 10.5 01-02-2020 PENDING L OCATION [#/Vol] 10*3/uL 13:35-0400 [facility] (28303) WBC LM.HPF RARE (no code) 01-02-2020 PENDING LOCATI ON (Urine sed) 13:47-0400 [facility] ([id number]) [#/Area] laboratory on 2019-04-19 INR Coag 2.3 (no code) 04-19-2019 Hospital (Platelet poor 14: [facility] plasma or blood[facility] [Relative time] ([id number]) PT Coag (PPP) 27.4 s (H) 9.4 - 12.5 s 04-19-2019 [facility]pi [facility] [Time] 14:10-0400 [facility] (79500) laboratory on 2019-03-31 INR Coag 1.3 (no code) 03-31-2019 Hospital (Platelet poor 11:40-0400 [facility] plasma or blood) [facility] [Relative time] (32511) PT Coag (PPP) 14.7 s (H) 9.4 - 12.5 s 03-31-2019 Hospi shannan [Time] 11:40-0400 [facility] ([id number]) laboratory on 2019-03-22 INR Coag 1.2 (no code) 03-22-2019 Hospital (Platelet poor 12:200400 [facility] plasma or blood) [facility] [Relative time] ([id number]) PT Coag (PPP) 13.5 s (H) 9.4 - 12.5 s 03-22-2019 Hospi shannan [Time] 12:20-0400 [facility] (34779) capillary blood glucose measurement by glucometer (mass/volume) on 2018-04-08 Glucose mass 336 mg/dL (H) 60 - 125 mg/dL Via [facility] (27272) venous blood hemoglobin measurement (mass/volume) on 2018-04-07 Hemoglobin mass 12.4 g/dL (L) 12.1 - 17.2 g/dL Via [facility] (d) [facility] (63693) serum or plasma urea nitrogen/creatin ine mass ratio on 2018-04-07 Urea 20 mg/mg (no code) 6 - 22 mg/mg Via [facility] nitrogen/Creatin Hospital ine mass ratio [facility] (85230) serum or plasma urea nitrogen measurement (mass/volume) on 2018-04-07 Urea nitrogen 26 mg/dL (H) 7 - 20 mg/dL Via [facility] i mass [facility] (76213) serum or plasma sodium measurement (moles/volume) on 2018-04-07 Sodium molar 135 mmol/L (no code) 135 - 145 mmol/L Via [facility] isti [facility] (65023) serum or plasma potassium measurement (moles/volume) on 2018-04-07 Potassium molar 4.4 mmol/L (no code) 3.7 - 5.2 mmol/L Via [facility] (13539) serum or plasma glucose measurement (mass/volume) on 2018-04-07 Glucose mass 279 mg/dL (H) 60 - 125 mg/dL Via [facility] () serum or plasma creatinine measurement with calculation of estimated glomerular filtration rate on 2018-04-07 GFR/1.73 sq M 54 (no code) 90 - 120 Via [facility] predicted among mL/min/{1.73_m2} mL/min/{1.73_m2} [facility] non-blacks [facility] vol rate/area () (S/P/Bld) serum or plasma creatinine measurement (mass/volume) on 2018-04-07 Creatinine mass 1.33 mg/dL (H) Via [facility] () serum or plasma chloride measurement (moles/volume) on 2018-04-07 Chloride molar 103 mmol/L (no code) 95 - 106 mmol/L Via [facility] () serum or plasma calcium measurement (mass/volume) on 2018-04-07 Calcium mass 9.2 mg/dL (no code) 8.5 - 10.2 mg/dL Via [facility] () serum or plasma anion gap determination (moles/volume) on 2018-04-07 Anion gap 3 11 mmol/L (no code) 3 - 11 mmol/L Via [facility] () carbon dioxide on 2018-04-07 CO2 molar conc 21 mmol/L (no code) 23 - 29 mmol/L Via [facility] () blood neutrophils automated count (number/volume) on 2018-04-07 Neutrophils Auto 4.0 10*3/uL (no code) 1.7 - 7 10*3/uL Via [facility] #/vol (Bld) [facility] ([id number]) blood monocytes/100 leukocytes on 2018-04-07 Monocytes/100 12 % (no code) 2 - 8 % Via [facility] WBC Auto (Bld) [facility] () blood monocytes automated count (number/volume) on 2018-04-07 Monocytes Auto 0.8 10*3/uL (no code) 0.3 - 0.9 Via [facility] #/vol (Bld) 10*3/uL [facility] ([id number]) blood lymphocytes automated count (number/volume) on 2018-04-07 Lymphocytes Auto 1.6 10*3/uL (no code) 0.9 - 2.9 Via [facility] ti #/vol (Bld) 10*3/uL [facility] (70947) blood leukocytes automated count (number/volume) on 2018-04-07 WBC Auto #/vol 6.4 10*3/uL (no code) 3.5 - 10.5 Via [facility] (Bld) 10*3/uL [facility] (46189) blood hematocrit (volume fraction) on 2018-04-07 Hematocrit Auto 35 % (L) 36.1 - 50.3 % Via [facility] Volume Fraction Hospital (Bld) [facility] (91021) blood erythrocytes automated count (number/volume) on 2018-04-07 RBC Auto #/vol 3.89 10*6/uL (L) 4.2 - 6.1 Via [facility] i (Bld) 10*6/uL [facility] (50862) automated erythrocyte mean corpuscular volume on 2018-04-07 MCV Auto Entitic 89 fL (no code) 80 - 100 fL Via [facility] sti volume (RBC) [facility] (65193) automated erythrocyte mean corpuscular hemoglobin concentration measurement (mass/volume) on 2018-04-07 MCHC Auto mass 36 g/dL (no code) 32 - 36 g/dL Via [facility] ti conc (RBC) [facility] (27995) automated erythrocyte mean corpuscular hemoglobin (mass per erythrocyte) on 2018-04-07 MCH Auto Entitic 32 pg (no code) 27 - 31 pg Via [facility] mass (RBC) [facility] (99112) automated erythrocyte distribution width ratio on 2018-04-07 Erythrocyte 15.4 % (H) 11.6 - 14.6 % Via [facility] distribution Hospital width Auto Ratio [facility] (RBC) (85456) automated eosinophil count on 2018-04-07 Eosinophils Auto 0.1 10*3/uL (no code) 0.05 - 0.5 Via [facility] ti #/vol (Bld) 10*3/uL [facility] (28403) automated blood platelet mean volume measurement on 2018-04-07 Platelet mean 10.7 fL (H) 7.2 - 11.7 fL Via [facility] ti volume Auto Hospital Entitic volume [facility] (Bld) (87356) automated blood platelet count (count/volume) on 2018-04-07 Platelets Auto 135 10*3/uL (no code) 150 - 450 Via [facility] #/vol (Bld) 10*3/uL [facility] (50728) automated blood neutrophils/100 leukocytes on 2018-04-07 Neutrophils/100 62 % (no code) 40 - 60 % Via [facility] i WBC Auto (Bld) [facility] (38563) automated blood lymphocytes/100 leukocytes on 2018-04-07 Lymphocytes/100 25 % (no code) 20 - 40 % Via [facility] i WBC Auto (Bld) [facility] (61409) automated blood eosinophils/100 leukocytes on 2018-04-07 Eosinophils/100 2 % (no code) 1 - 4 % Via [facility] i WBC Auto (Bld) [facility] (81972) automated blood basophils/100 leukocytes on 2018-04-07 Basophils/100 0 % (no code) 0.5 - 1 % Via [facility] WBC Auto (Bld) [facility] (39711) automated blood basophil count (count/volume) on 2018-04-07 Basophils Auto 0.0 10*3/uL (no code) 0 - 0.3 10*3/uL Via risti #/vol (Bld) [facility] (51820) serum or plasma total bilirubin measurement (mass/volume) on 2018-04-06 Bilirubin mass 1.0 mg/dL (no code) 0.1 - 1.2 mg/dL Via [facility] (38785) serum or plasma protein measurement (mass/volume) on 2018-04-06 Protein mass 6.4 g/dL (no code) 6.4 - 8.3 g/dL Via [facility] (36079) serum or plasma aspartate aminotransferase measurement (enzymatic activity/volume) on 2018-04-06 AST enzyme 14 U/L (no code) 10 - 34 U/L Via [facility] act/vol [facility] (84212) serum or plasma alkaline phosphatase measurement (enzymatic activity/volume) on 2018-04-06 ALP enzyme 68 U/L (no code) 44 - 147 U/L Via [facility] act/vol [facility] (41990) serum or plasma albumin measurement (mass/volume) on 2018-04-06 Albumin mass 3.7 g/dL (no code) 3.4 - 5.4 g/dL Via [facility] (88621) serum or plasma alanine aminotransferase measurement (enzymatic activity/volume) on 2018-04-06 ALT enzyme 24 U/L (no code) 4 - 40 U/L Via [facility] act/vol [facility] (85492) calcium measurement corrected for albumin on 2018-04-06 Calcium mass 9.1 mg/dL (no code) 8.5 - 10.2 mg/dL Via [facility] isti [facility] (44410) urine urobilinogen measurement by automated test strip (mass/volume) on 2018-04-05 Urobilinogen NORMAL (no code) Via [facility] Test strip Qn [facility] ([facility] (64175) urine total bilirubin detection by test strip on 2018-04-05 Bilirubin Ql (U) Negative (no code) Via [facility] (21430) urine protein assay by test strip, semi-quantitativ e on 2018-04-05 Protein Test 3+ (*) Via [facility] strip ([facility] () urine ph measurement by test strip on 2018-04-05 pH Test strip 5 [pH] (no code) 4.6 - 8 [pH] Via [facility] i ([facility] (59469) urine nitrite detection by test strip on 2018-04-05 Nitrite Test Negative (no code) Via [facility] strip ([facility] (16928) urine ketones detection by automated test strip on 2018-04-05 Ketones 1+ (*) Via [facility] Automated test Hospital strip Ql ([facility] (30974) urine glucose detection by automated test strip on 2018-04-05 Glucose 4+ (*) Via [facility] Automated test Hospital strip Ql ([facility] (14031) urine color determination on 2018-04-05 Color Nom (U) YELLOW (no code) Via [facility] (64648) urine clarity determination on 2018-04-05 Clarity Nom (U) CLEAR (no code) Via [facility] (50857) squamous epithelial cells detection in urine sediment by light microscopy on 2018-04-05 Epithelial no information (no code) Via [facility] cells.squamous Hospital LM Ql (Urine Madeline sed) (46908) specific gravity of urine by test strip on 2018-04-05 Specific gravity 1.020 (no code) [facility] (U) [facility] (65443) serum or plasma lactate measurement (moles/volume) on 2018-04-05 Lactate molar 1.68 mmol/L (no code) 0.5 - 2.2 mmol/L Via risti [facility] (57245) serum or plasma c reactive protein measurement (mass/volume) on 2018-04-05 CRP mass conc 4.06 mg/L (H) 0 - 8 mg/L Via [facility] (06790) prothrombin time (pt) in platelet poor plasma by coagulation assay on 2018-04-05 Prothrombin time 14.1 s (no code) 9.4 - 12.5 s Via [facility] isti (PT) Coag time [facility] (PPP) [facility] () mucus detection in urine sediment by light microscopy on 2018-04-05 Mucus LM Ql Negative (no code) Via [facility] (Urine sed) [facility] (28874) lipase on 2018-04-05 Lipase enzyme 35 U/L (no code) 10 - 73 U/L Via [facility] act/vol [facility] (98359) leukocyte esterase on 2018-04-05 Leukocyte 1+ (*) Via [facility] esterase Test Hospital strip Ql (U) [facility] () inr in platelet poor plasma or blood by coagulation assay on 2018-04-05 INR Coag RelTime 1.1 (no code) Via [facility] (Platelet poor Hospital plasma or blood) [facility] (13294) erythrocytes detection in urine sediment by light microscopy on 2018-04-05 RBC LM Ql (Urine Negative (no code) Via [facility] sed) [facility] (47085) crystals detection in urine sediment by light microscopy on 2018-04-05 Crystals LM Ql PRESENT (*) Via [facility] (Urine sed) [facility] (95335) complete urinalysis with reflex to culture on 2018-04-05 Complete NO (no code) Via [facility] urinalysis with Hospital reflex to [facility] culture ([id number]) casts detection in urine sediment by light microscopy on 2018-04-05 Casts LM Ql NONE (no code) Via [facility] (Urine sed) [facility] (14820) blood lactic acid measurement (moles/volume) on 2018-04-05 Lactate molar 2.34 mmol/L (CH) 0.5 - 2.2 mmol/L Via risti [facility] (86137) bacterial urine culture on 2018-04-05 Bacteria NO GROWTH (no code) Via [facility] identified [facility] Nom (U) [facility] ([id number]) bacterial blood culture on 2018-04-05 Bacteria No growth (no code) Via [facility] identified [facility] (Bld) [facility] ([id number]) bacteria detection in urine sediment by light microscopy on 2018-04-05 Bacteria LM Ql NONE (no code) Via [facility] (Urine sed) [facility] (86235) automated urine sediment leukocyte count by microscopy (number/high power field) on 2018-04-05 WBC LM.HPF no information (no code) Via [facility] #/area ([facility]) [facility] (95470) automated urine sediment erythrocyte count by microscopy (number/high power field) on 2018-04-05 RBC LM.HPF NONE (no code) Via [facility] #/area (Urine [facility]) [facility] (55429) amorphous sediment detection in urine sediment by light microscopy on 2018-04-05 Amorphous MOD FRANCIS URATES (*) Via [facility] sediment LM Ql [facility] (Urine sed) [facility] ([id number]) activated partial thromboplastin time (aptt) in platelet poor plasma bycoagulation assay on 2018-04-05 aPTT Coag time 27 s (no code) 25 - 35 s Via [facility] ([facility]) [facility] (98105) venous blood hemoglobin measurement (mass/volume) on 2018-02-09 Hemoglobin (HGB) 15.4 g/dL (no code) 12 - 18 g/dL Via [facility] (26197) urine urobilinogen measurement by automated test strip (mass/volume) on 2018-02-09 Urine, NORMAL (no code) Via [facility] urobilinogen [facility] (89539) urine total bilirubin detection by test strip on 2018-02-09 Urine, bilirubin Negative (no code) Via [facility] [address] (61705) urine protein assay by test strip, semi-quantitativ e on 2018-02-09 Urine, protein 3+ (*) Via [facility] [address] (86809) urine ph measurement by test strip on 2018-02-09 Urine, pH 6 [pH] (no code) 4.6 - 8 [pH] Via [facility] (58309) urine nitrite detection by test strip on 2018-02-09 Urine, nitrite Negative (no code) Via [facility] [address] (17843) urine ketones detection by automated test strip on 2018-02-09 Urine, ketones 3+ (*) Via [facility] [address] (71352) urine glucose detection by automated test strip on 2018-02-09 Urine, glucose 4+ (*) Via [facility] [address] (85581) urine color determination on 2018-02-09 Urine, color YELLOW (no code) Via [facility] (77022) urine clarity determination on 2018-02-09 Urine, clarity CLEAR (no code) Via [facility] (10361) squamous epithelial cells detection in urine sediment by light microscopy on 2018-02-09 Urine, squamous NONE (no code) Via [facility] cells [facility] (27670) specific gravity of urine by test strip on 2018-02-09 Urine, specific 1.020 (no code) Via [facility] (82567) serum or plasma urea nitrogen/creatin ine mass ratio on 2018-02-09 BUN/Creatinine 17 mg/mg (no code) 10 - 20 mg/mg Via [facility] sti [facility] (00944) serum or plasma urea nitrogen measurement (mass/volume) on 2018-02-09 Urea nitrogen 22 mg/dL (H) 7 - 20 mg/dL Via [facility] (03019) serum or plasma troponin i.cardiac measurement (mass/volume) on 2018-02-09 Troponin I no information (no code) Via [facility] (92682) serum or plasma total bilirubin measurement (mass/volume) on 2018-02-09 Bilirubin 1.2 mg/dL (H) 0.3 - 1.9 mg/dL Via [facility] (total) [facility] (54510) serum or plasma thyrotropin measurement by detection limit <=0.05 miu/l (units/volume) on 2018-02-09 Thyroid 1.93 m[IU]/L (no code) 0.4 - 4 m[IU]/L Via [facility] stimulating [facility] hormone (TSH) [facility] (94975) serum or plasma sodium measurement (moles/volume) on 2018-02-09 Sodium 137 mmol/L (no code) 135 - 147 mmol/L Via [facility] (30620) serum or plasma protein measurement (mass/volume) on 2018-02-09 Protein 7.4 g/dL (no code) 6.4 - 8.3 g/dL Via [facility] (99505) serum or plasma potassium measurement (moles/volume) on 2018-02-09 Potassium 4.1 mmol/L (no code) 3.5 - 5.1 mmol/L Via [facility] ([id number]) serum or plasma glucose measurement (mass/volume) on 2018-02-09 Glucose 251 mg/dL (H) 60 - 125 mg/dL Via [facility] ([id number]) serum or plasma creatinine measurement with calculation of estimated glomerular filtration rate on 2018-02-09 eGFR (non-black) 54 (no code) 90 - [id number] Via [facility] mL/min/{1.73_m2} mL/min/{1.73_m2} [facility] ([id number]) serum or plasma creatinine measurement (mass/volume) on 2018-02-09 Creatinine 1.32 mg/dL (H) Via [facility] ([id number]) serum or plasma chloride measurement (moles/volume) on 2018-02-09 Chloride 103 mmol/L (no code) 95 - 106 mmol/L Via [facility] ([id number]) serum or plasma calcium measurement (mass/volume) on 2018-02-09 Calcium 9.9 mg/dL (no code) 9 - 11 mg/dL Via [facility] ([id number]) serum or plasma aspartate aminotransferase measurement (enzymatic activity/volume) on 2018-02-09 Aspartate 28 U/L (no code) 10 - 34 U/L Via [facility] aminotransferase [facility] (AST) [place] ([id number]) serum or plasma anion gap determination (moles/volume) on 2018-02-09 Anion gap 14 mmol/L (no code) 3 - 11 mmol/L Via [facility] ([id number]) serum or plasma amylase measurement (enzymatic activity/volume) on 2018-02-09 Amylase 24 U/L (L) 23 - 85 U/L Via [facility] ([id number]) serum or plasma alkaline phosphatase measurement (enzymatic activity/volume) on 2018-02-09 Alkaline 77 U/L (no code) 44 - 147 U/L Via [facility] ([facility]P) [place] ([id number]) serum or plasma albumin measurement (mass/volume) on 2018-02-09 Albumin 4.3 g/dL (no code) 3.5 - 5.5 g/dL Via [facility] ([id number]) serum or plasma alanine aminotransferase measurement (enzymatic activity/volume) on 2018-02-09 Alanine 39 U/L (no code) 10 - 40 U/L Via [facility] aminotransferase [facility] (ALT) [place] ([id number]) serum or plasma acetaminophen measurement (mass/volume) on 2018-02-09 Serum or plasma no information (L) Via [facility] acetaminophen [facility] measurement [place] (mass/volume) ([id number]) prothrombin time (pt) in platelet poor plasma by coagulation assay on 2018-02-09 Coagulation 13.4 s (no code) Via [facility] tissue factor [facility] induced in [place] platelet poor ([id number]) plasma myoglobin, serum on 2018-02-09 Myoglobin 82.7 ng/mL (no code) Via [facility] (54475) mucus detection in urine sediment by light microscopy on 2018-02-09 Urine, mucus Negative (no code) Via [facility] in [facility] sediment [place] (13901) magnesium on 2018-02-09 Magnesium 2.3 mg/dL (no code) 1.8 - 3.6 mg/dL Via [facility] ([id number]) lipase on 2018-02-09 Lipase 30 U/L (no code) 23 - 300 U/L Via [facility] ([id number]) leukocyte esterase on 2018-02-09 Urine, leukocyte 1+ (*) Via [facility] esterase [facility] presence [place] ([id number]) inr in platelet poor plasma or blood by coagulation assay on 2018-02-09 INR in blood by 1.0 {INR} (no code) 0.9 - 1.1 {INR} Via C [facility]risti coagulation [facility] (56206) erythrocytes detection in urine sediment by light microscopy on 2018-02-09 Urine, Negative (no code) [facility] erythrocytes [facility] (11738) crystals detection in urine sediment by light microscopy on 2018-02-09 Urine, crystals NONE (no code) Via [facility] in [facility] sediment [place] (72209) complete urinalysis with reflex to culture on 2018-02-09 Complete NO (no code) [facility] urinalysis with Hospital reflex to [place] culture ([id number]) casts detection in urine sediment by light microscopy on 2018-02-09 Urine, casts in NONE (no code) Via [facility] sediment [facility] ([id number]) carbon dioxide on 2018-02-09 CO2 20 mmol/L (L) 23 - 29 mmol/L [facility] (07635) blood neutrophils automated count (number/volume) on 2018-02-09 Neutrophils 5.4 10*3/uL (no code) 1.5 - 7.8 Via [facility] 10*3/uL [facility] (06858) blood monocytes/100 leukocytes on 2018-02-09 Monocytes/100 9 % (no code) 2 - 8 % [facility] leukocytes [facility] ([id number]) blood monocytes automated count (number/volume) on 2018-02-09 Monocytes 0.7 10*3/uL (no code) 0.2 - 1.1 [facility] 10*3/uL [facility] (21304) blood lymphocytes automated count (number/volume) on 2018-02-09 Lymphocytes 1.8 10*3/uL (no code) 0.85 - 4.1 Via [facility] 10*3/uL [facility] ([id number]) blood leukocytes automated count (number/volume) on 2018-02-09 WBC (Leukocytes) 8.1 10*3/uL (no code) 3.8 - 10.8 Via [facility] 10*3/uL [facility] (84050) blood hematocrit (volume fraction) on 2018-02-09 Hematocrit (HCT) 43 % (no code) 39 - 51 % Via [facility] ([id number]) blood erythrocytes automated count (number/volume) on 2018-02-09 Erythrocytes 4.93 10*6/uL (no code) 4.2 - 6.1 Via [facility] (RBC) 10*6/uL [facility] (33833) bacteria detection in urine sediment by light microscopy on 2018-02-09 Urine, bacteria FEW (*) Via [facility] in sediment [facility] (46278) automated urine sediment leukocyte count by microscopy (number/high power field) on 2018-02-09 Urine, RARE (no code) [facility] leukocytes [facility]204[facility] sediment erythrocyte count by microscopy (number/high power field) on 2018-02-09 Urine, NONE (no code) [facility] erythrocytes in Hospital sediment by [facility] (91529) automated erythrocyte mean corpuscular volume on 2018-02-09 MCV 87 fL (no code) 80 - 100 fL Via [facility] ([id number]) automated erythrocyte mean corpuscular hemoglobin concentration measurement (mass/volume) on 2018-02-09 MCHC 36 g/dL (no code) 32 - 36 g/dL Via [facility] ([id number]) automated erythrocyte mean corpuscular hemoglobin (mass per erythrocyte) on 2018-02-09 MCH 31 pg (no code) 27 - 31 pg Via [facility] ([id number]) automated erythrocyte distribution width ratio on 2018-02-09 RDW-CA 15.3 % (H) 11 - 15 % Via [facility] ([id number]) automated eosinophil count on 2018-02-09 Eosinophils 0.1 10*3/uL (no code) 0.05 - 1.5 Via [facility] 10*3/uL [facility] ([id number]) automated blood platelet mean volume measurement on 2018-02-09 Platelet mean 10.5 fL (H) 7.2 - 11.7 fL Via [facility] (PMV) [facility] ([id number]) automated blood platelet count (count/volume) on 2018-02-09 Platelets 157 10*3/uL (no code) 150 - 400 Via [facility] 10*3/uL [facility] ([id number]) automated blood neutrophils/100 leukocytes on 2018-02-09 Neutrophils/100 67 % (no code) 40 - 60 % Via [facility] ([id number]) automated blood lymphocytes/100 leukocytes on 2018-02-09 Lymphocytes/100 22 % (no code) 20 - 40 % Via [facility] (41250) automated blood eosinophils/100 leukocytes on 2018-02-09 Eosinophils/100 1 % (no code) 1 - 4 % Via [facility] (80237) automated blood basophils/100 leukocytes on 2018-02-09 Basophils/100 0 % (no code) 0.5 - 1 % Via [facility] (98862) automated blood basophil count (count/volume) on 2018-02-09 Basophils 0.0 10*3/uL (no code) 0 - 0.2 10*3/uL Via [facility] ([id number]) activated partial thromboplastin time (aptt) in platelet poor plasma bycoagulation assay on 2018-02-09 aPTT 28 s (no code) 25 - 35 s Via [facility] ([id number]) Vital Signs The data below is from unstructured sources Vital Response Date/Time Temperature (Fahrenheit) 97.0 degree s F (97.6 - 99.5) 11/13/2016 10:30am Temperature (Calculated Celsius) 36. 94378 degrees C (36.4 - 37.5) 11/13/2016 8:16am [...] inches 11/10/2016 2:00pm Height (Calculated Centimeters) 180. 845071 cm 11/10/2016 2:00pm Weight (Pounds) 350 pounds 11/10/2016 2:00pm Weight (Ounces) 0.0 oz 0 11/10/2016 2:00pm Weight (Calculated Grams) 394416.33 gm 11/10/2016 2:00pm Weight (Calculated Kilograms) 158.75 7331 kilograms 11/10/2016 2:00pm Calculated BMI 48.8 10/31 2:00pm Capillary Refill Capillary Refill Less Than 3 Seconds 11/10/2016 9:44am Vital Response Date/Time Temperature (Fahrenheit) 97.9 degree s F (97.6 - 99.5) 11/18/2016 12:36pm Temperature (Calculated Celsius) 36. 08126 degrees C (36.4 - 37.5) 11/18/2016 5:09am [...] inches 11/13/2016 10:32pm Height (Calculated Centimeters) 180. 411477 cm 11/13/2016 10:32pm Weight (Pounds) 350 pounds 11/18/2016 5:13am Weight (Ounces) 0.0 oz 0 11/13/2016 10:32pm Weight (Calculated Grams) 133587.331 gm 11/18/2016 5:13am Weight (Calculated Kilograms) 158.75 7331 kilograms 11/18/2016 5:13am Calculated BMI 48.8 10/31 10:32pm Capillary Refill Capillary Refill Less Than 3 Seconds 11/10/2016 9:44am Vital Response Date/Time Temperature (Fahrenheit) 97.8 degree s F (97.6 - 99.5) 08/07/2015 1:55pm Temperature (Calculated Celsius) 36. 10531 degrees C (36.4 - 37.5) 08/07/2015 1:55pm [...] inches 08/07/2015 7:23am Height (Calculated Centimeters) 182. 590374 cm 08/07/2015 7:23am Weight (Pounds) 345 pounds 08/07/2015 7:23am Weight (Calculated Grams) 314772.369 gm 08/07/2015 7:23am Weight (Calculated Kilograms) 156.48 9369 kilograms 08/07/2015 7:23am Calculated BMI 46.78 01/2016 7:23am Vital Response Date/Time Temperature (Fahrenheit) 97.8 degree s F (97.6 - 99.5) Temperature (Calculated Celsius) 36. 96124 degrees C (36.4 - 37.5) Temperature Source Tympanic Pulse Rate (adult) 63 bpm (60 - 90) Respiratory Rate 20 bpm (12 - 24) O2 Sat by Pulse Oximetry 96 % (88 - 100) Blood Pressure 130/83 mm Hg Pain Pain Intensity 0 Height (Feet) 6 feet Height (Inches) 0.00 inches Height (Calculated Centimeters) 182. 725070 cm Weight (Pounds) 335 pounds Weight (Ounces) 0.5 oz Weight (Calculated Grams) 193348.620 gm Weight (Calculated Kilograms) 151.96 7620 kilograms Calculated BMI 45.43 Vital Response Date/Time Temperature (Fahrenheit) 98.0 degree s F (97.6 - 99.5) 02/09/2018 2:37pm Temperature (Calculated Celsius) 36. 33233 degrees C (36.4 - 37.5) 02/09/2018 2:37pm [...] feet 06/2018 2:37pm Height (Calculated Centimeters) 182. 961793 cm 02/09/2018 2:37pm Weight (Pounds) 342 pounds 02/09/2018 2:37pm Weight (Calculated Grams) 264563.59 gm 02/09/2018 2:37pm Weight (Calculated Kilograms) 155.12 8592 kilograms 02/09/2018 2:37pm Weight Method Stated 06/2018 2:37pm Capillary Refill Capillary Refill Less Than 3 Seconds 02/09/2018 2:37pm Height 6 ft 0 in 018 2:37pm Weight 342 lb 02/09/2018 2:37pm Body Mass Index 46.4 kg/m^2 02/09/2018 2:37pm Vital Response Date/Time Temperature (Fahrenheit) 97.5 degree s F (97.6 - 99.5) 04/08/2018 8:00am Temperature (Calculated Celsius) 36. 02531 degrees C (36.4 - 37.5) 04/08/2018 8:00am [...] inches 04/06/2018 12:45am Height (Calculated Centimeters) 182. 823634 cm 04/06/2018 12:45am Height Method Stated 10/2017 3:44pm Weight (Pounds) 330 pounds 04/06/2018 12:45am Weight (Ounces) 0.0 oz 0 04/06/2018 12:45am Weight (Calculated Grams) 573510.48 gm 04/06/2018 12:45am Weight (Calculated Kilograms) 149.68 5484 kilograms 04/06/2018 12:45am Calculated BMI 44.8 11/2017 12:45am Weight Method Stated 10/2017 3:44pm Weight Measurement Method Built in Point Inside 04/06/2018 12:45am Capillary Refill Capillary Refill Less Than 3 Seconds 04/07/2018 8:45pm Vital Response Date/Time Temperature (Fahrenheit) 97.5 degree s F (97.6 - 99.5) 04/08/2018 8:00am Temperature (Calculated Celsius) 36. 54456 degrees C (36.4 - 37.5) 04/08/2018 8:00am [...] inches 04/06/2018 12:45am Height (Calculated Centimeters) 182. 412830 cm 04/06/2018 12:45am Height Method Stated 10/2017 3:44pm Weight (Pounds) 330 pounds 04/06/2018 12:45am Weight (Ounces) 0.0 oz 0 04/06/2018 12:45am Weight (Calculated Grams) 149747.48 gm 04/06/2018 12:45am Weight (Calculated Kilograms) 149.68 5484 kilograms 04/06/2018 12:45am Calculated BMI 44.8 11/2017 12:45am Weight Method Stated 10/2017 3:44pm Weight Measurement Method Built in Point Inside 04/06/2018 12:45am Capillary Refill Capillary Refill Less [...] GIL KAHN DO (Uns pecified) 02/11/15 Address: [address] [place] [id number] Reason(s) for Referral: AT 11:00 AM CALL AND RESCHEDULE IF UNABLE TO KEEP APPOINTMENT DR KAHN WILL MAKE THE APPOINTMENT FOR [facility] FOR [facility] Discharge Date 02/09/18 6:46pm Disposition 02 XFER SHT-TRM HOSP Condition at Discharge Improved Prescriptions See Medication Section Referrals GIL KAHN DO Order Date: Primary Care Physician Address: [address] [place] [id number] Discharge Date 04/08/18 10:00am Disposition 64 [...] [facility] patient visit (no phone) [facility] (no phone) 10-11-2019 Emergency department no information PRIMO MEJÍA (no [facility] patient visit phone) [facility] (no phone) 12-16-2018 Emergency department no information no name no organization name patient visit 11-07-2018 Emergency department no information no name no organization name - patient visit 11-07-2018 11-07-2018 Emergency department no information no name no organization name - patient visit 11-07-2018 04-05-2018 Emergency department no information no name no organization name patient visit 02-09-2018 Emergency department no information MISAEL Asiya NORBERTO Ospina asiya no organization name - patient visit Phone: 02-09-2018 02-09-2018 Emergency department no information no name no organization name - patient visit 02-09-2018 07-08-2016 Emergency department no information no name no organization name - patient visit 07-08-2016 07-08-2016 Emergency department no information no name no organization name - patient visit 07-08-2016 01-04-2020 Evaluation and no information GODFREY ZEPEDA DO (no [facility] - management of phone) [facility] 01-11-2020 inpatient (no phone) 01-02-2020 Evaluation and no information RENNY Winter [facility] - management of (no phone) [facility] 01-04-2020 inpatient (no phone) 10-11-2019 Evaluation and no information ANTONIO MICHAELS MD (no [facility] - management of phone) [facility] 10-13-2019 inpatient (no phone) 10-11-2019 Evaluation and no information ANTONIO MICHAELS MD (no [facility] - management of phone) [facility] 10-13-2019 inpatient (no phone) 12-16-2018 Evaluation and [...] information no name no or ganization name 01-10-2020 Patient encounter no information ARMEN MARTINS DO ( no [facility] - procedure phone) BARBIE Murray [facility] 01-10-2020 (no phone) (no phone) 01-02-2020 Patient encounter no information RENNY Miller MD [facility] - procedure (no phone) [facility] 01-04-2020 (no phone) 10-11-2019 Patient encounter no information ANTONIO MICHAELS MD (no [facility] - procedure phone) [facility] 10-13-2019 (no phone) 08-31-2019 Patient encounter no information ODILONANTOINE ALEXANDER (no [facility] - procedure phone) [facility] 08-31-2019 (no phone) 08-29-2019 Patient encounter no [...] PENDING complete W LOCATION Reflex [facility] ([id number]) panel (U) null Note Type Note Facility Note NAME: ELMO GARCIA Maggy ~MED REC#: [id number] ~ PENDING ~PHYSICIAN: ROSELYN FREEMAN PT ~Therapy Progress Note ~Patient adamantly declined LOCATION PT this a.m. stating, "I'm not doing an ything today." PT attempted to ~educate [facility] and encourage patient to participate to increase stre ngth, however, patient ([id number]) continued to ~refuse. ~1 ref (810) ~ ~ ~ ~ROSELYN FREEMAN PT Jan 04, 2020 09:06 ~ ~ ~<Created by ROSELYN FREEMAN PT> ~<Dorothy ctronically signed by ROSELYN FREEMAN PT> 01/04/20 0906 ~ ~ null Note Type Note Facility Note NAME: ELMO GARCIA ~MED REC#: [id number] ~ PENDING ~PHYSICIAN: ROSELYN FREEMAN PT ~Therapy Progress Note ~Patient declined PT again LOCATION stating he is having trouble with his b lood sugar. Patient was sleeping ~upon PT [facility] entering room. Will attempt later today . ~1 ref (105) ~ ~ ~ ~ROSELYN FREEMAN PT ([id number]) Jan 04, 2020 09:59 ~ ~ ~<Created by MARIVEL FREEMAN PT> ~<Electronically signed by ROSELYN FREEMAN PT> 01/04/20 1000 ~ ~ null Note Type Note Facility Note NAME: ELMO GARCIA ~MED REC#: [id number] ~ PENDING ~PHYSICIAN: BETTY STRONG PT ~Therapy [...] Note NAME: ELMO GARCIA ~MED REC#: [id number] ~ PENDING ~PHYSICIAN: JOI DOAN PTA ~Therapy Progress Note ~Pt refused PT Rx this LOCATION morning. Pt is NPO for Heart Cath Toe A mputation today. PT will check back~with [facility] pt to resume services tomorrow. ~ ~1 vi sit, no Rx rendered ~ ~ ~ ~JOI DOAN ([id number]) CHRISS Jan 10, 2020 09:13 ~ ~ ~<Created by JOI DOAN LANDSCAPE NURSERYMAN> ~<Electronically signed by JOI DOAN LANDSCAPE NURSERYMAN> 01/10/20 0 913 ~ ~ Clinical Note Note Type Note Facility Note NAME: ELMO GARCIA ~MED REC#: [id number] ~ PENDING ~PHYSICIAN: MARIA A KEENE ~Therapy Progress Note ~ Pt completing multiple LOCATION procedures this date. Pt is NPO for pro cedures. Pt declined any therapies ~today [facility] stating that he has too much "shit" going on. ~1, ref usal ~ ~ ~ ~MARIA A KEENE ([id number]) LILLIAM Jan 10, 2020 09:17 ~ ~ ~<Created by MARIA A VYAS> ~<Electronically signed by MARIA A VYAS> 01/10/20 09 17 ~ ~ Clinical Note Note Type Note Facility Note NAME: ELMO GARCIA ~MED REC#: [id number] ~ PENDING ~PHYSICIAN: ARMEN MARTINS DO ~Pre-Opera tive Progress Note ~H P Reviewed ~The H P LOCATION was reviewed, patient examined and no changes noted. 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 Site marked ~ ~ ~ ~ARMEN MARTINS DO Jan 10, 2020 11:53 ~ ~ ~<Created by ARMEN MARTINS DO> ~<Electronically signed by ARMEN Benítez DO> 01/10/20 1153 ~ ~ Clinical Note Note Type Note Facility Note NAME: ELMO GARCIA Maggy ~MED REC#: [id number] ~ PENDING ~PHYSICIAN: MARIA A KEENE ~Therapy P rogress Note ~Pt refuses therapy stating LOCATION "They are moving me right now upstairs. " Pt to be discharged today from [facility] to [facility] due to medical issues. ~1 refusal ~ ~ ~ ~MARIA A KEENE Jan 11, 2020 10:57 ([id number]) ~ ~ ~<Created by MARIA A VYAS> ~<El ectronically signed by MARIA A VYAS> 01/11/20 1057 ~ ~ Advance Directives Directive Response Recor ded Date/Time Advance Directives No 7:24am Health Care Power of Internet Project Manager No 08/07/15 7:24am Organ Donor Yes 08/07/15 7:24am Directive Response Recor ded Date/Time Advance Directives No 2:00pm Health Care Power of Internet Project Manager No 11/10/16 2:00pm Organ Donor Yes 11/10/16 2:00pm Resuscitation Status Full Code 11/10/16 2:00pm Directive Response Recor ded Date/Time Advance Directives No 12:20pm Health Care Power of Internet Project Manager No 11/13/16 12:20pm Organ Donor Yes 11/13/16 12:20pm Resuscitation Status Full Code 11/13/16 12:20pm Directive Response Recor ded Date/Time Advance Directives No 7:24am Health Care Power of Internet Project Manager No 08/07/15 7:24am Organ Donor Yes 08/07/15 7:24am Resuscitation Status Full Code 08/07/15 7:24am Directive Response Recor ded Date/Time Advance Directives No 7:30pm Health Care Power of Internet Project Manager No 01/23/15 7:30pm Organ Donor Yes 01/23/15 7:30pm Resuscitation Status Full Code 01/23/15 7:30pm Directive Response Recor ded Date/Time Advance Directives No 3:39pm Health Care Power of Internet Project Manager No 02/09/18 3:39pm Organ Donor Yes 02/09/18 3:39pm Resuscitation Status Full Code 02/09/18 3:39pm Directive Response Recor ded Date/Time Advance Directives No 11:45pm Health Care Power of Internet Project Manager No 04/05/18 11:45pm Organ Donor Yes 04/05/18 [...] weeks. Call for appointment. 2. Refer to [facility] Therapy. Activity as Tolerated: Yes Discharge Diet: ADA Diet (2000 SHANTAL ADA.) Care Plan Patient Instructions:: 1. Follow up Dr. Kahn in office 2 weeks. Call for appointment.2. Refer to [facility]. No hospital discharge instruction information [...] This clinical document has been generated using [employer] software that has been certified by the Office of the National Coordinator for Health Information Technology (ONC 15.99.04.3023.Diam.31.00.0.970504) and the National Committee for Quality Controller (NCQA, as an eMeasure certified technology). FOR [...] BASED ON T HE PRIMARY CLINICAL RECORDS. [employer] [facility]. provides no warranty or guara ntee of the accuracy or completeness of information in this document.The followi ng information is based on time limited clinical information
--- OUTSIDE RECORDS SUMMARY | 2020-01-11 14:36 | XMS REPORT | Continuity of Care Document ---
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 [facility] 4TH FEVER OF UNKNOWN SOURCE,VOMITING,SEVERE DIZZINESS [id number] 02/09/2018 14:37:00 018 18:46:00 DIS Emergency NORBERTO MISAEL CHAO Vi a [facility] ER FALL/POSS HEAD INJURY [id number] 10/11/2017 13:32:00 23:59:59 CLS Outpatient GIL KAHN DO Via [facility] RAD TRAUMA,M79.642, M79.672 [id number] 11/13/2016 10:31:00 017 12:36:00 DIS Inpatient COBY FRANCO, ARMEN Cash Via [facility] IRF DEBILITY [id number] 11/10/2016 12:25:00 017 10:30:00 DIS Inpatient HAKEEM FRANCO, CASSY Braden Via [facility] 4TH CELLULITIS KLE [id number] 07/08/2016 12:07:00 016 13:41:00 DIS Emergency PRIMO FRANCOIS APRN Via [facility] ER FALL/RIGHT FOOT PAIN [id number] 07/01/2016 10:00:00 23:59:59 CLS Preadmit GIL KAHN DO Via [facility] CR ACB REDO [id number] 06/24/2016 11:09:00 00:01:00 DIS Outpatient GIL KAHN DO Via [facility] CR ACB REDO [id number] 06/01/2016 16:44:00 Donato 23:59:59 CLS Outpatient GIL KAHN DO Via [facility] RAD HEADACHE,SEVERE VERTIGO [id number] 01/06/2016 16:41:00 Donato 23:59:59 CLS Outpatient JUDY CABRALES MD Via [facility] HH OSTEOMYLITIS LEFT FING ER, MSSA INFECTION [id number] 12/30/2015 14:44:00 Donato 23:59:59 CLS Outpatient JUDY CABRALES MD Via [facility] HH OSTEOMYLITIS LEFT FING ER, MSSA INFECTION [id number] 12/23/2015 16:18:00 016 23:59:59 CLS Outpatient JUDY CABRALES MD Via [facility] OSTEOMYLITIS LEFT FING ER, MSSA INFECTION [id number] 12/16/2015 13:01:00 016 23:59:59 CLS Outpatient JUDY CABRALES MD Via [facility] OSTEOMYLITIS LEFT FING ER, MSSA INFECTION [id number] 12/12/2015 11:43:00 016 23:59:59 CLS Outpatient JUDY CABRALES MD Via [facility] OSTEOMYLITIS (L) THUMB [id number] 12/09/2015 10:44:00 23:59:59 CLS Outpatient JUDY CABRALES MD Via [facility] OSTEOMYLITIS LT FINGER ,MSSA INFECTION [id number] 12/06/2015 10:50:00 016 12:00:00 DIS Outpatient ELMO DAWN MD Via [facility] WOUNDCARE [id number] 12/02/2015 15:53:00 016 23:59:59 CLS Outpatient JUDY CABRALES MD Via [facility] OSTEOMYLITIS LEFT FING ER, MSSA INFECTION [id number] 08/07/2015 07:10:00 14:05:00 DIS Outpatient BARBIE ALFRED MD [facility] CATH PAD,CLAUDICATION,SHORT OF BREATH,HTN,DM,HLP [id number] 06/19/2015 11:52:00 015 23:59:59 CLS Outpatient BARBIE ALFRED MD [facility] CARD CAD,ASHLY,HTN,HLP [id number] 01/23/2015 19:06:00 015 12:32:00 DIS Inpatient GIL KAHN DO Via [facility] 4TH HYPONATREMIA,SC IATICA [id number] 06/13/2014 14:05:00 23:59:59 CLS Outpatient GIL KAHN DO Via [facility] RT DSYPNEA [id number] 03/07/2014 12:28:00 23:59:59 CLS Outpatient GIL KAHN DO Via [facility] RAD TRAUMATIC BRAIN INJURY,TRAUMA [id number] 06/14/2013 07:34:00 23:59:59 CLS Outpatient BARBIE ALFRED MD Via [facility] RAD CAD,CP,DIZZINESS [id number] 06/09/2013 09:46:00 23:59:59 CLS Outpatient BARBIE ALFRED MD [facility] CARD CAD,CP,DIZZINESS [id number] 01/11/2020 13:05:00 Document Registration [id number] 01/10/2020 08:56:[address] Outpatient BARBIE ALFRED MD [facility] CATH DEBILITY [id number] 01/10/2020 08:37:[address] Outpatient LAKSHMI CHAOARMEN Via [facility] SDC GANGRENE LEFT THIRD TOE [id number] 01/04/2020 11:00:[address] Inpatient GODFREY ZEPEDA DO [facility] [place] IRF DEBILITY [id number] 08/07/2015 07:09:00 Document Registration [id number] 04/27/2012 12:29:00 Document Registration [id number] 09/23/2011 11:18:00 Document Registration [id number] 11/26/2010 07:10:00 Document Registration [id number] 11/24/2010 07:01:00 Document Registration [id number] 11/07/2010 11:15:00 Document Registration [id number] 11/03/2010 09:00:00 Document Registration [id number] 06/26/2010 17:20:00 Document Registration [id number] 02/24/2010 06:59:00 Document Registration
[2020-01-11] MEDS ORDERED: DOXYCYCLINE 100 MG (VIBRAMYCIN) TABLET PO SCH (17:00)
[2020-01-11] MEDS: VANCOMYCIN INJECTION 1,750 MG in NS IV 500 ML 500 ML IV SCH (17:03)
[2020-01-11] MEDS: inSUlin ASPART (NovoLOG) 1 UNIT/0.01 ML (CHARGE PER UNIT) SC SCH ×2 (17:03→20:58)
[2020-01-11 18:00] VITALS: BP 126/72
[2020-01-11] MEDS ORDERED: warFARin 4 MG (COUMADIN) TAB PO SCH (18:00)
[2020-01-11] MEDS: ASCORBIC ACID (VIT C) 500 MG TABLET PO SCH (18:27)
[2020-01-11] MEDS: FUROSEMIDE 40 MG (LASIX) TAB PO SCH (18:27)
[2020-01-11] MEDS ORDERED: CEFDINIR 300 MG (OMNICEF) CAP PO SCH (21:00)
[2020-01-11] MEDS: polyethylene glycoL POWDER 17 GM (MIRALAX) PACK PO SCH (21:00)
[2020-01-11] MEDS: AMITRIPTYLINE 25 MG (ELAVIL) TAB PO SCH (21:05)
[2020-01-11] MEDS: FINASTERIDE (PROSCAR) 5 MG TAB PO SCH (21:05)
[2020-01-11] MEDS: VITAMIN D3 25 MCG (1,000 UNITS) TABLET PO SCH (21:07)
[2020-01-11] MEDS: SENNA W/DOCUSATE (SENOKOT S) TABLET PO SCH (21:08)
[2020-01-11] MEDS: DOCUSATE SODIUM 100 MG (COLACE) CAP PO SCH (21:08)
[2020-01-11] MEDS: OMEGA 3 (FISH OIL) 1000 MG CAP PO SCH (21:09)
[2020-01-11] MEDS: TAMSULOSIN 0.4 MG (FLOMAX) CAP PO SCH (21:16)
[2020-01-11] MEDS: CARVEDILOL 12.5 MG (COREG) TABLET PO SCH (21:16)
[2020-01-12] MEDS: NS IV 1000 ML 1,000 ML IV SCH ×2 (03:44→15:41)
[2020-01-12 05:48] VITALS: BP 128/69
[2020-01-12 05:55] LABS: BASOPHILS % (AUTO) 0 % (0-10); EOSINOPHILS # (AUTO) 0.1 10^3/uL (0.0-0.3); EOSINOPHILS % (AUTO) 2 % (0-10); HEMATOCRIT 29 % (40-54); HEMOGLOBIN 9.3 G/DL (13.3-17.7); LYMPHOCYTES # (AUTO) 0.9 X 10^3 (1.0-4.0); LYMPHOCYTES % (AUTO) 13 % (12-44); MEAN CORPUSCULAR HEMOGLOBIN 28 PG (25-34); MEAN CORPUSCULAR HGB CONC 33 G/DL (32-36); MEAN CORPUSCULAR VOLUME 85 FL (80-99); MEAN PLATELET VOLUME 10.4 FL (7.4-10.4); MONOCYTES # (AUTO) 0.7 X 10^3 (0.0-1.0); MONOCYTES % (AUTO) 10 % (0-12); NEUTROPHILS # (AUTO) 4.9 X 10^3 (1.8-7.8); NEUTROPHILS % (AUTO) 74 % (42-75); PLATELET COUNT 175 10^3/uL (130-400); WHITE BLOOD COUNT 6.5 10^3/uL (4.3-11.0)
[2020-01-12] MEDS: inSUlin ASPART (NovoLOG) 1 UNIT/0.01 ML (CHARGE PER UNIT) SC SCH ×4 (06:03→20:20)
[2020-01-12 06:05] LABS: INR 1.6 (0.8-1.4); PROTHROMBIN TIME PATIENT 19.7 SEC (12.2-14.7)
[2020-01-12 06:06] LABS: CALCIUM 8.4 MG/DL (8.5-10.1)
[2020-01-12 06:10] LABS: CREATININE SERUM 1.75 MG/DL (0.60-1.30)
[2020-01-12] MEDS: VENlafaxine XR 75 MG (EFFEXOR XR) CAP PO SCH (06:33)
[2020-01-12] MEDS: FUROSEMIDE 40 MG (LASIX) TAB PO SCH ×2 (06:33→17:38)
[2020-01-12] MEDS: inSUlin ASPART (NovoLOG) 1 UNIT/0.01 ML (CHARGE PER UNIT) SQ SCH ×3 (06:33→17:39)
[2020-01-12] MEDS: KCL 20 MEQ TAB (K-DUR) PO SCH (06:33)
[2020-01-12] MEDS: RT-ALBUTEROL/IPRATROPIUM 3 ML (DUONEB) VIAL INH SCH ×3 (06:36→19:12)
--- NOTE | 2020-01-12 08:38 | NUR ---
PER REPORT FROM NOC RN -- THIS RN CONTACTED PICC LINE RN -- PER REPORT PT PULLED PICC OUT 4 CM -- IT WAS STILL TAKING FLUIDS OK AND PULING BLOOD -- PICC LINE RN NATHALY TO FLOOR ASSESSED --
--- NOTE | 2020-01-12 08:40 | NUR ---
PICC LINE OUT 4CM, SECURED WITH DRESSING BY 4TH FLOOR RN. DRESSING REMOVED, CLEANED WITH CHLORAPREP ET ALCOHOL. PICC LINE ADVANCED WITH STERILE TECHNIQUE. 0CM OF PICC REMAINS OUTSIDE INSERTION POINT. STERILE DRESSING REAPPLIED. ABLE TO FLUSH EASILY WITH GOOD BLOOD RETURN. CXR OBTAINED TO RULE OUT MISPLACEMENT. DIFFICULT FOR RADIOLOGIST TO VISUALIZE PICC TIP, BUT ABLE TO VISUALIZE PICC ADVANCING DOWN TOWARD SVC. OK TO USE.
--- NOTE | 2020-01-12 08:52 | Physical Therapy Evaluation ---
PT Evaluation-General Medical Diagnosis Admission Date Jan 11, 2020 at 11:57 Medical Diagnosis: edema/hyperglycemia/left toe amputation Onset Date: Jan 02, 2020 Therapy Diagnosis Therapy Diagnosis: debility/weakness Height/Weight Height (Feet): 6 Height (Inches): 0.00 Weight (Pounds): 322 Weight (Ounces): 1.0 Precautions Precautions/Isolations: Contact Isolation Referral Physician: Nya Reason for Referral: Evaluation/Treatment Medical History Pertinent Medical History: Arthritis, CABG, CAD, COPD, DM, HTN, MA, Neuropathy Additional Medical History recent left toe amputation Current History transfer from [facility] to 4th floor [facility] due to inability to comply with therapies and change in status. Reviewed History: Yes Social History Home: Assisted Living Prior Prior Level of Function SCALE: Activities may be completed with or without assistive devices. 3-Skhcrmwdch-jcmceke completes the activity by him/herself with no assistance from a helper. 5-Set-up or Clean-up Assistance-helper sets up or cleans up; patient completes activity. [place] assists only prior to or following the activity. 4-Supervision or Touching Assistance-helper provides verbal cues and/or to uching/steadying and/or contact guard assistance as patient completes activity. Assistance may be provided throughout the activity or intermittently. 3-Partial/Moderate Assistance-helper does LESS THAN HALF the effort. Omer lifts, holds or supports trunk or limbs, but provides less than half the effort. 2-Substantial/Maximal Assistance-helper does MORE THAN HALF the effort. Omer lifts or holds trunk or limbs and provides more than half the effort. 0-Tlryqhqvo-fcvudq does ALL the effort. Patient does none of the effort to complete the activity. Or, the assistance of 2 or more helpers is required for the patient to complete the activity. If activity was not attempted, code reason: 7-Patient Refused. 9-Not Applicable-not attempted and the patient did not perform the activity before the current illness, exacerbation or injury. 10-Not Attempted due to Environmental Limitations-(lack of equipment, weather restraints, etc.). 88-Not Attempted due to Medical Conditions or Safety Concerns. Bed Mobility: 6 Transfers (B,C,W/C): 6 Gait: 9 Stairs: 9 Wheelchair Mobility: 6 Indoor Mobility (Ambulation): Not [place] Stairs: Not [place]licalbe Prior Devices Use: Motorized scooter PT Evaluation-Current Subjective Patient reluctantly agrees to PT. Adamantly declined OOB activity. Pain Numeric Pain Scale: 0-No Pain Location: No Pain Reported Objective Patient Orientation: Normal For Age Attachments: IV ROM/Strength ROM Lower Extremities left LE WFL Strength Lower Extremities NT Integumentary/Posture Integumentary refer to nursing notes Bowel Incontinence: No Bladder Incontinence: No Posture WFL Neuromuscular (Tone, Coordination, Reflexes) grossly intact Sensory Vision: Functional Hearing: Functional Sensation Right Lower Extremit: Impaired Sensation Left Lower Extremity: Impaired Transfers Roll Left to Right (QC): 6 Sit to Lying (QC): 6 Lying to Sitting/Side of Bed(Q: 6 Sit to Stand (QC): 9 Chair/Wdu-si-Zvtyw Xfer(QC): 7 Toilet Transfer (QC): 7 Car Transfer (QC): 7 Gait Does the Patient Walk?: No and Walking Goal NOT indicated Walk 10 feet (QC): 9 Walk 50 ft with 2 Turns(QC): 9 Walk 150 ft (QC): 9 Walking 10ft/uneven surface-QC: 9 Wheelchair Training Does the Pt Use a Wheelchair?: Yes Wheel 50 ft with 2 turns (QC): 7 Wheel 150 ft (QC): 7 Stairs 1 Step (curb) (QC): 9 4 Steps (QC): 9 12 Steps (QC): 9 Balance Sitting Static: Normal Sitting Dynamic: Normal Picking up an Object (QC): 7 Treatment Patient repositioned self in bed with verbal cues for hand and left LE placement. Patient performed exercises left LE HS and SLR. Patient is easily distracted and ceased treatment. Assessment/Needs 69 y.o. male, will benefit from skilled PT to address functional strength and mobility. Patient has been seen in acute, ARU and now returned to [facility] for SWB status. 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 [employer] Util[employer] Goals Sales Representative Public Utilities Goals PT Mcfp Goals Time Frame: Feb 03, 2020 Roll Left & Right (QC): 6 Sit to Lying (QC): 6 Lying-Sitting on Side/Bed(QC): 6 Sit to Stand (QC): 9 Chair/Vjy-tl-Lxqym Xfer(QC): 5 Toilet Transfer (QC): 5 Car Transfer (QC): 5 Does the Patient Walk: No and Walking Goal NOT indicated Walk 10 feet (QC): 9 Walk 50ft with 2 Turns (QC): 9 Walk 150 ft (QC): 9 Walking 10ft on Uneven Surface: 9 1 Step (curb) (QC): 9 4 Steps (QC): 9 12 Steps (QC): 9 Picking up an Object (QC): 9 Wheel 50 feet with 2 turns (QC: 6 Type: Motorized Wheel 150 feet: 6 Type: Motorized PT Plan Problem List Problem List: Activity Tolerance, Functional Strength, Safety, Balance, Transfer, Bed Mobility Treatment/Plan Treatment Plan: Continue Plan of Care Treatment Plan: Bed Mobility, Education, Functional Activity Farshad, Functional Strength, Safety, Therapeutic Exercise, Transfers Treatment Duration: Feb 03, 2020 Frequency: 6 times per week Estimated Hrs Per Day: .25 hour per day Time/GCodes Time In: 820 Time Out: 843 Total Billed Treatment Time: 23 Total Billed Treatment 1 visit EVModC 8 min FA 15 min ROSELYN FREEMAN PT Jan 12, 2020 08:52
[2020-01-12] MEDS ORDERED: CLOPIDOGREL 75 MG (PLAVIX) TABLET PO SCH ×2 (09:00)
--- NOTE | 2020-01-12 09:24 | Diagnostic Imaging Report ---
INDICATION: Coronary artery disease, PICC line placement COMPARISON: 01/09/2020 FINDINGS: Single view chest demonstrates a right entering PICC line. However, the tip of the catheter is not well demonstrated on this series. There is definite catheter device within the SVC. There is no pneumothorax. IMPRESSION: Right entering PICC line tip not clearly identified. Dictated by: Dictated on workstation # [id number]
[2020-01-12] MEDS: hydrALAZINE (APRESOLINE) 25 MG TAB PO SCH ×3 (10:00→20:31)
[2020-01-12] MEDS: NITROGLYCERIN 0.2 MG/PATCH (NITRO-DUR) TD SCH (10:01)
[2020-01-12] MEDS: FOLIC ACID 1 MG TAB PO SCH (10:01)
[2020-01-12] MEDS: VITAMIN D3 25 MCG (1,000 UNITS) TABLET PO SCH ×2 (10:01→20:32)
[2020-01-12] MEDS: ASCORBIC ACID (VIT C) 500 MG TABLET PO SCH ×2 (10:02→17:38)
[2020-01-12] MEDS: MAGNESIUM OXIDE (MAG-OX)400 MG TAB PO SCH (10:02)
[2020-01-12] MEDS: VITAMIN E 180 MG (400 UNITS) CAP PO SCH (10:02)
[2020-01-12] MEDS: GEMFIBROZIL 600 MG (LOPID) TAB PO SCH (10:02)
[2020-01-12] MEDS: SENNA W/DOCUSATE (SENOKOT S) TABLET PO SCH ×2 (10:03→20:32)
[2020-01-12] MEDS: OMEGA 3 (FISH OIL) 1000 MG CAP PO SCH ×2 (10:03→20:32)
[2020-01-12] MEDS: DOCUSATE SODIUM 100 MG (COLACE) CAP PO SCH ×2 (10:03→20:32)
[2020-01-12] MEDS: ALLOPURINOL 100 MG (ZYLOPRIM) TAB PO SCH (10:03)
[2020-01-12] MEDS: amLODIPine 10 MG (NORVASC) TAB PO SCH (10:03)
[2020-01-12] MEDS: ASPIRIN E.C. 81 MG (ECOTRIN) TAB PO SCH (10:04)
--- NOTE | 2020-01-12 10:04 | NUR ---
CM DISCHARGE PLANNING: Attempted to call patients sister isabell CARMEN, Zofia Pulido, message left. Would like to visit with her about POC. Patient will likely dismiss from the hospital on Wednesday after the completion of his IV abx. Would like to determine with his sister isabell SIMS if he will be able to discharge back to them. Addendum: 01/12/20 at 1017 by CAMDEN LONG RN Visited with Amanda Rossi she reports that the patient is on their [facility] side et so they do not need to assess for acceptance back them he can return when discharged. However, she feels that the patient would be better served with additional care for the patient et has asked me to visit with the patient et his sister about this. She reports that they have had multiple conversations with them as well. If Zofia returns my phone call I will visit with her about [place] request.
[2020-01-12] MEDS: CARVEDILOL 12.5 MG (COREG) TABLET PO SCH ×2 (10:05→20:39)
[2020-01-12] MEDS: polyethylene glycoL POWDER 17 GM (MIRALAX) PACK PO SCH ×2 (10:11→20:21)
--- NOTE | 2020-01-12 10:53 | Occupational Therapy Eval ---
OT Evaluation-General/PLF Medical Diagnosis Admission Date Jan 11, 2020 at 11:57 Medical Diagnosis: edema/hyperglycemia/left toe amputation Onset Date: Jan 02, 2020 Therapy Diagnosis Therapy Diagnosis: Decreased self care, decreased funct mobility, decr activity tolerance Height/Weight Height (Feet): 6 Height (Inches): 0.00 Weight (Pounds): 322 Weight (Ounces): 1.0 Precautions Precautions/Isolations: Contact Isolation Referral Physician: Nya Referral Reason: Evaluation/Treatment Medical History Pertinent Medical History: Arthritis, CABG, CAD, COPD, DM, HTN, AR, Neuropathy Additional Medical History R BKA, cardiac, CABG, coronary stent, orthopedic, CAD, syncopy, vertigo Current History L 3rd toe amputated 01-10-2020. Transferred to [facility] from [facility]. Social History Home: Assisted Living ([place]) Current Living Status: Alone ADL-Prior Level of Function SCALE: Activities may be completed with or without assistive devices. 9-Dklhvbeodt-qtfhtkh completes the activity by him/herself with no assistance from a helper. 5-Set-up or Clean-up Assistance-helper sets up or cleans up; patient completes activity. [place] assists only prior to or following the activity. 4-Supervision or Touching Assistance-helper provides verbal cues and/or touching/steadying and/or contact guard assistance as patient completes activity. Assistance may be provided throughout the activity or intermittently. 3-Partial/Moderate Assistance-helper does LESS THAN HALF the effort. [place] lifts, holds or supports trunk or limbs, but provides less than half the effort. 2-Substantial/Maximal Assistance-helper does MORE THAN HALF the effort. [place] lifts or holds trunk or limbs and provides more than half the effort. 0-Wqebmtihu-ezedee does ALL the effort. Patient does none of the effort to complete the activity. Or, the assistance of 2 or more helpers is required for the patient to complete the activity. If activity was not attempted, code reason: 7-Patient Refused. 9-Not Applicable-not attempted and the patient did not perform the activity before the current illness, exacerbation or injury. 10-Not Attempted due to Environmental Limitations-(lack of equipment, weather restraints, etc.). 88-Not Attempted due to Medical Conditions or Safety Concerns. ADL PLOF Comments Pt reported needing assistance with ADLs at PLOF. He uses a motorized scooter for functional mobility. He has help with showering and dressing 3 times a week (M, W, F)He is able to wash only his upper body and requires assistance with his back, buttocks and BLEs. After he showers, he has help with dressing, reporting that he is able to don/doff his shirt but requires help with donning/doffing his shorts and sock on L foot. He does not ever wear a shoe on L LE. He does not change his clothes between showering. He has assistance with cleaning and has meals provided once a day, 5 days a week. he reported that his sisters bring him other food and buy his groceries. 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 Pain reported 3/4 and was generalized. He did mention some discomfort in R shoulder but did not rate or describe it. Appearance Alert, cooperative Mental Status/Objective Patient Orientation: Person, Place, Time, Situation Attachments: Central Line, Other-See Comments (BiPAP) Current Dentures/Partials: Yes Hand Dominance: Right Upper Extremity ROM Bilat shoulder flex/abd approx 100 degrees active. Able to touch back of his head with hands. Upper Extremity Coordination WFL Upper Extremity Sensation Grossly WFL Upper Extremity Strength Grossly 4/5 bilat Some redness distal end L middle finger and pt reported that it was sore to touch ADL-Treatment Eating (QC): 6 (per report) Oral Hygiene (QC): 7 Shower/Bathe Self (QC): 7 (On ARU, required help to bathe back, buttocks, lower body) Upper Body Dressing (QC): 7 (Per ARU, dressed upper body with setup) Lower Body Dressing (QC): 7 (Per ARU, needs assistance) On/Off Footwear (QC): 7 (Per ARU, needs assistance) Toileting Hygiene (QC): 7 (Pt has been using urinal. Requested bariatric bedside commode with flat surface and drop arms. Discussed with nursing to look for one. ) Pt has been requiring max assist 2 people for ADL transfers, per OT documents. W/C mobility SBA per PT documents on ARU. Other Treatments Pt education two bilat UE exercises that he can do in bed. Pt completed 9-10 reps each one. He also has red theraband (medium resistance) and demonstrated three different exercises that he recalled form ARU, but only 2-3 reps each before he quit. Pt encouraged to do these on his own. Pt in agreement with POC. Education OT Patient Education: Exercise program, Purpose of tx/functional activities, Rehab process Teaching Recipient: Patient Teaching Methods: Demonstration, Discussion Response to Teaching: Verbalize Understanding, Return Demonstration OT Short Term Goals Short Term Goals Time Frame: Jan 19, 2020 Oral hygiene: 5 Toileting hygiene: 3 OT Agile Qa Tester Goals Agile Qa Tester Goals Time Frame: Jan 26, 2020 Eating (QC): 6 Oral Hygiene (QC): 6 Toileting Hygiene (QC): 4 Shower/Bathe Self (QC): 3 Upper Body Dressing (QC): 5 Lower Body Dressing (QC): 3 On/Off Footwear (QC): 2 Additional Goals: 1-Demonstrate ADL Tasks, 2-Verbalize Understanding, 3- ImproveStrength/Farshad 1=Demonstrate adherence to instructed precautions during ADL tasks. 2=Patient will verbalize/demonstrate understanding of assistive devices/modifications for ADL. 3=Patient will improve strength/tolerance for activity to enable patient to perform ADL's. OT Education/Plan Problem List/Assessment Assessment: Decreased Activ Tolerance, Decreased UE Strength, Dependent Transfers, Impaired Self-Care Skills Pt would benefit from skilled OT to increase his independence in basic self care to allow him to safely return to his home at [place] Discharge Recommendations Plan/Recommendations: Continue POC Treatment Plan/Plan of Care Treatment,Training & Education: Yes Patient would benefit from OT for education, treatment and training to promote independence in ADL's, mobility, safety and/or upper extremity function for ADL's. Plan of Care: ADL Retraining, Functional Mobility, UE Funct Exercise/Act, UE Neuromus Re-Ed/Coord Treatment Duration: Jan 26, 2020 Frequency: 5 times per week Estimated Hrs Per Day: .5 hour per day Agreement: Yes Rehab Potential: Fair Time/GCodes Start Time: 10:10 Stop Time: 10:32 Total Time Billed (hr/min): 22 Billed Treatment Time visit, OT eval moderate intensity 10 minutes, exercise 12 minutes GILBERT PAYNE OT Jan 12, 2020 10:52
--- NOTE | 2020-01-12 11:25 | NUR ---
"RD ASSESSMENT PMHx: CHF; DM; COPD; DE; hypercholesterolemia; HTN; R BKA; s/p toe amputation PT INTERACTION: Pt was awake and pleasant during nutrition follow-up. Pt states he has been eating alright since last assessment. Note avg PO intake 63% of meals, per chart review. Pt states no issues with nausea, vomiting, constipation, or diarrhea since last assessment. Note last BM was 01/10, and pt currently on bowel regimen of colace BID; senna BID; and miralax BID, per chart review. ABNORMAL NUTRITION-RELATED LAB VALUES LOW: Ca 8.4 HIGH: BUN 36; cr 1.76 glu 125 Est. kcal needs: 8379-5453 kcal | 25-30 kcal/kg IBW, based on IBW of 78.1 kg (172#) Est. Pro needs: 94-109 g Pro | 1.2-1.4 g Pro/kg IBW, based on IBW of 78.1 kg (172#) PES STATEMENT: Inadequate oral intake (NI-2.1) related to loss of appetite as evidenced by pt interview | avg PO intake 63% of meals Inadequate protein intake (NI-5.6.1) related to increased protein needs as evidenced by presence of wounds (toe amputation) INTERVENTION: Continue with current diet order of CHO 60g/m 1snack diet. Add Ensure HP (vary) to meals TID. Provides 160 kcal and 16 g Pro per serving, for perceived benefit to wound healing. Will continue to follow and reassess as pt needs, intake, and status change. MONITOR/EVALUATE: PO Intake; Plan of Care; Hydration Status; Weight Status; Lab Values Jose Robledo, , RD, LD"
--- NOTE | 2020-01-12 12:33 | Cardiology Progress Note ---
Cardiology SOAP Progress Note Subjective: No significant cardiac complaints. Objective: I&O/Vital Signs 01/15/20 01/15/20 01/15/20 05:47 07:49 08:00 Temp 37.0 Pulse 68 Resp 24 B/P (MAP) 116/74 (88) Pulse Ox 93 93 93 O2 Delivery NIV CPAP NIV CPAP NIV CPAP O2 Flow Rate 3.00 5.00 5.00 01/15/20 00:00 Intake Total 1620 ml Output Total 1500 ml Balance 120 ml Weight (Pounds): 322 Weight (Ounces): 1.0 Weight (Calculated Kilograms): 146.072593 Constitutional: AAO x 3 Respiratory: chest is bilaterally symmetric, other (decreased bilateral air entry.) Cardiovascular: regular rate-rhythm, S1 and S2; No diastolic murmur, No systolic murmur Gastrointestional: soft, distended Extremities: normal range of motion, non-tender, normal inspection, no lower extremity edema bilateral Neurologic/Psychiatric: no motor/sensory deficits, alert, normal mood/affect, oriented x 3 Skin: normal color Results/Procedures: Labs Laboratory Tests 01/14/20 19:53: Glucometer 100 01/15/20 05:20: Prothrombin Time 15.7H, INR Comment 1.2, Sodium Level 139, Potassium Level 3.9, Chloride Level 108H, Carbon Dioxide Level 20L, Anion Gap 11, Blood Urea Nitrogen 29H, Creatinine 1.59H, Estimat Glomerular Filtration Rate 44, BUN/Creatinine Ratio 18, Glucose Level 54*L, Calcium Level 8.4L 01/15/20 05:35: Glucometer 83 01/15/20 10:53: Glucometer 186H A/P: Assessment/Dx: PAD CAD HTN HLP Plan: Peripheral arterial disease, history of right BKA, had progressive wound that resulted in the amputation done in November 2018, followed by BKA. Now having nonhealing wounds to LLE at anterior felton and toes. Underwent toe amputation yesterday morning. Peripheral angiogram done yesterday revealing severe multisegment stenosis of the left SFA, multiple balloon angioplasty then deployment of Supera 6.5 x 100 in the proximal SFA. The lesions at the mid and distal SFA responded to balloon angioplasty with mild recoiling. Total occlusion of the left anterior tibial artery, patent peroneal and posterior tibial, collateral filling the distal tibial. Mild to moderate disease on the right leg. Atherosclerotic plaques in the abdominal aorta and bifurcation with heavily tortuous iliac arteries. Maximize medical therapy. Continue to monitor, will consider intervention on the anterior tibial artery as a last resort. Continue to apply nitro patch to LLE Acute on chronic renal insufficiency, continue to monitor renal function. Coronary artery disease, history of multiple interventions, total of 8 stents, had bypass surgery using single vessel after failed multiple attempts for intervention done at [facility] in 2017. 2D echo done October 2019 revealed normal LV size and normal PA pressure, followed by Dr. Ponce Hypertension, continue on current medications and continue to monitor. Hyperlipidemia, intolerant to multiple statin, continue to monitor lipids COPD, obstructive sleep apnea, maintained on C Pap, persistent dyspnea Pulmonary hypertension. Diabetes mellitus, followed and managed by primary care physician Obesity, educated on weight loss Carotid stenosis, totally occluded left ICA, less than 40 percent on the right side. Followed at primary care physician Vertigo, dizziness, chronic. Medical noncompliance. Thank you for your consultation. Please call me if you have any questions. Sheila Lam MD, FACP, FACC, FSCAI, FHRS, CCDS Interventional Cardiology Cardiac Electrophysiology Vascular Medicine and Endovascular Interventions James LAM MD Jan 12, 2020 12:33
[2020-01-12] MEDS: VANCOMYCIN INJECTION 1,750 MG in NS IV 500 ML 500 ML IV SCH (15:41)
--- NOTE | 2020-01-12 16:03 | NUR ---
CM FINALIZED DISCHARGE PLAN: Patient has agreed to have a referral sent to [facility] for continued skilled care with likely discharge date on Wednesday01/15/20. Referral faxed et f/u with Racing Secretary Shweta. Shweta reports that they have male beds available et acceptance is likely. Spoke with patients sister whom is very involved in his care planning. She has made contact Shweta et is making finalized plans.
[2020-01-12 18:14] VITALS: BP 122/70
[2020-01-12] MEDS: TAMSULOSIN 0.4 MG (FLOMAX) CAP PO SCH (20:32)
[2020-01-12] MEDS: FINASTERIDE (PROSCAR) 5 MG TAB PO SCH (20:33)
[2020-01-12] MEDS: AMITRIPTYLINE 25 MG (ELAVIL) TAB PO SCH (20:39)
[2020-01-13] MEDS: NS IV 1000 ML 1,000 ML IV SCH ×2 (04:00→13:50)
[2020-01-13] MEDS: KCL 20 MEQ TAB (K-DUR) PO SCH (05:56)
[2020-01-13] MEDS: FUROSEMIDE 40 MG (LASIX) TAB PO SCH ×2 (05:56→17:15)
[2020-01-13] MEDS: VENlafaxine XR 75 MG (EFFEXOR XR) CAP PO SCH (05:56)
[2020-01-13] MEDS: inSUlin ASPART (NovoLOG) 1 UNIT/0.01 ML (CHARGE PER UNIT) SQ SCH ×3 (05:57→17:15)
[2020-01-13 06:00] VITALS: BP 154/74
[2020-01-13] MEDS: inSUlin ASPART (NovoLOG) 1 UNIT/0.01 ML (CHARGE PER UNIT) SC SCH ×4 (06:36→20:38)
[2020-01-13] MEDS: RT-ALBUTEROL/IPRATROPIUM 3 ML (DUONEB) VIAL INH SCH ×3 (07:06→21:15)
--- NOTE | 2020-01-13 08:03 | Physical Therapy Progress Note ---
Therapy Progress Note Patient adamantly declined PT stating, "I want to be left alone." PT attempted to educated patient on importance of increasing activity to improve strength, however, patient continued to decline. 1 visit (ref [phone]) ROSELYN FREEMAN PT Jan 13, 2020 08:03
[2020-01-13] MEDS: DOCUSATE SODIUM 100 MG (COLACE) CAP PO SCH ×2 (09:00→20:41)
[2020-01-13] MEDS: amLODIPine 10 MG (NORVASC) TAB PO SCH (09:06)
[2020-01-13] MEDS: VITAMIN E 180 MG (400 UNITS) CAP PO SCH (09:06)
[2020-01-13] MEDS: VITAMIN D3 25 MCG (1,000 UNITS) TABLET PO SCH ×2 (09:06→20:41)
[2020-01-13] MEDS: ALLOPURINOL 100 MG (ZYLOPRIM) TAB PO SCH (09:06)
[2020-01-13] MEDS: MAGNESIUM OXIDE (MAG-OX)400 MG TAB PO SCH (09:06)
[2020-01-13] MEDS: FOLIC ACID 1 MG TAB PO SCH (09:06)
[2020-01-13] MEDS: GEMFIBROZIL 600 MG (LOPID) TAB PO SCH (09:07)
[2020-01-13] MEDS: CARVEDILOL 12.5 MG (COREG) TABLET PO SCH ×2 (09:07→20:39)
[2020-01-13] MEDS: ASPIRIN E.C. 81 MG (ECOTRIN) TAB PO SCH (09:07)
[2020-01-13] MEDS: OMEGA 3 (FISH OIL) 1000 MG CAP PO SCH ×2 (09:07→20:38)
[2020-01-13] MEDS: ASCORBIC ACID (VIT C) 500 MG TABLET PO SCH ×2 (09:07→17:15)
[2020-01-13] MEDS: hydrALAZINE (APRESOLINE) 25 MG TAB PO SCH ×3 (09:07→20:39)
[2020-01-13] MEDS: NITROGLYCERIN 0.2 MG/PATCH (NITRO-DUR) TD SCH (09:20)
[2020-01-13] MEDS: polyethylene glycoL POWDER 17 GM (MIRALAX) PACK PO SCH ×2 (11:39→20:39)
[2020-01-13] MEDS: SENNA W/DOCUSATE (SENOKOT S) TABLET PO SCH ×2 (11:40→20:40)
[2020-01-13] MEDS ORDERED: hydrALAZINE (APRESOLINE) 25 MG TAB PO PRN (13:15)
--- NOTE | 2020-01-13 13:42 | Progress Note - Surgery ---
Subjective Time Seen by a Provider: 12:06 Subjective/Events-last exam Pt seen and examined, eating lunch without difficulty. States he only has minimal pain at toe. Review of Systems General: No Chills, No Night Sweats Pulmonary: No Dyspnea, No Cough Cardiovascular: No: Chest Pain, Palpitations Objective Exam Vital Signs Date Time Temp Pulse Resp B/P (MAP) Pulse Ox O2 Delivery O2 Flow Rate FiO2 01/13/20 07:06 NIV CPAP 5.00 01/13/20 06:00 36.1 66 20 154/74 (100) 94 Nasal Cannula 3.00 01/12/20 19:15 NIV CPAP 4.00 01/12/20 19:13 90 NIV CPAP 5.00 01/12/20 18:14 36.0 69 20 122/70 (87) 94 Nasal Cannula 3.00 01/12/20 15:06 90 NIV CPAP 5.00 I & O 01/13/20 07:00 Intake Total 1632 ml Output Total 500 ml Balance 1132 ml Capillary Refill : Less Than 3 SecondsLess Than 3 Seconds General Appearance: No Apparent Distress, Obese Respiratory: Lungs Clear, Normal Breath Sounds, No Accessory Muscle Use Cardiovascular: Regular Rate, Rhythm, No Murmur Extremity: Other (Right BKA, Left leg looks good, toe with packing and healing nicely) Results Lab Laboratory Tests 01/12/20 15:30: Glucometer 125H 01/12/20 19:35: Glucometer 162H 01/13/20 06:10: Glucometer 77 01/13/20 10:02: Glucometer 121H Assessment/Plan Assessment/Plan Assessment/Plan S/P Left 3rd toe Amputation Continue daily iodophor packing and good wound care. Clinical Quality Measures DVT/VTE Risk/Contraindication: Risk Factor Score Per Nursin ARMEN MARTINS DO Jan 13, 2020 13:42
[2020-01-13] MEDS: FERROUS SULF 325 MG (IRON) TAB PO SCH (13:50)
[2020-01-13] MEDS: VANCOMYCIN INJECTION 1,750 MG in NS IV 500 ML 500 ML IV SCH (14:47)
[2020-01-13] MEDS: MICONAZOLE 2% POWDER (DESENEX AF) 90 GM TOP SCH ×2 (14:47→14:48)
[2020-01-13] MEDS: POVIDONE (BETADINE) 10% SOLN 240 ML BTL TOP SCH ×5 (14:47→20:40)
[2020-01-13] MEDS: TRIAMCINOLONE 0.5% CR (KENALOG) 15 GM TUBE TOP SCH (14:48)
[2020-01-13 18:00] VITALS: BP 113/55
[2020-01-13] MEDS: TAMSULOSIN 0.4 MG (FLOMAX) CAP PO SCH (20:38)
[2020-01-13] MEDS: AMITRIPTYLINE 25 MG (ELAVIL) TAB PO SCH (20:38)
[2020-01-13] MEDS: FINASTERIDE (PROSCAR) 5 MG TAB PO SCH (20:39)
--- NOTE | 2020-01-13 21:17 | Cardiology Progress Note ---
Cardiology SOAP Progress Note Subjective: No cardiac complaints. Objective: I&O/Vital Signs 01/15/20 01/15/20 01/15/20 05:47 07:49 08:00 Temp 37.0 Pulse 68 Resp 24 B/P (MAP) 116/74 (88) Pulse Ox 93 93 93 O2 Delivery NIV CPAP NIV CPAP NIV CPAP O2 Flow Rate 3.00 5.00 5.00 01/15/20 00:00 Intake Total 1620 ml Output Total 1500 ml Balance 120 ml Weight (Pounds): 322 Weight (Ounces): 1.0 Weight (Calculated Kilograms): 146.566971 Constitutional: AAO x 3 Respiratory: chest is bilaterally symmetric, other (decreased air entry bilaterally.) Cardiovascular: regular rate-rhythm, S1 and S2 Gastrointestional: distended, audible bowel sounds Extremities: no lower extremity edema bilateral Neurologic/Psychiatric: no motor/sensory deficits, alert, normal mood/affect, oriented x 3 Skin: normal color Results/Procedures: Labs Laboratory Tests 01/14/20 19:53: Glucometer 100 01/15/20 05:20: Prothrombin Time 15.7H, INR Comment 1.2, Sodium Level 139, Potassium Level 3.9, Chloride Level 108H, Carbon Dioxide Level 20L, Anion Gap 11, Blood Urea Nitrogen 29H, Creatinine 1.59H, Estimat Glomerular Filtration Rate 44, BUN/Creatinine Ratio 18, Glucose Level 54*L, Calcium Level 8.4L 01/15/20 05:35: Glucometer 83 01/15/20 10:53: Glucometer 186H A/P: Assessment/Dx: PAD CAD HTN HLP Plan: Peripheral arterial disease, history of right BKA, had progressive wound that resulted in the amputation done in November 2018, followed by BKA. Now having nonhealing wounds to LLE at anterior felton and toes. Underwent toe amputation yesterday morning. Peripheral angiogram done yesterday revealing severe multisegment stenosis of the left SFA, multiple balloon angioplasty then deployment of Supera 6.5 x 100 in the proximal SFA. The lesions at the mid and distal SFA responded to balloon angioplasty with mild recoiling. Total occlusion of the left anterior tibial artery, patent peroneal and posterior tibial, collateral filling the distal tibial. Mild to moderate disease on the right leg. Atherosclerotic plaques in the abdominal aorta and bifurcation with heavily tortuous iliac arteries. Maximize medical therapy. Continue to monitor, will consider intervention on the anterior tibial artery as a last resort. Continue to apply nitro patch to LLE Acute on chronic renal insufficiency, continue to monitor renal function. Coronary artery disease, history of multiple interventions, total of 8 stents, had bypass surgery using single vessel after failed multiple attempts for intervention done at [facility] in 2017. 2D echo done October 2019 revealed normal LV size and normal PA pressure, followed by Dr. Ponce Hypertension, continue on current medications and continue to monitor. Hyperlipidemia, intolerant to multiple statin, continue to monitor lipids COPD, obstructive sleep apnea, maintained on C Pap, persistent dyspnea Pulmonary hypertension. Diabetes mellitus, followed and managed by primary care physician Obesity, educated on weight loss Carotid stenosis, totally occluded left ICA, less than 40 percent on the right side. Followed at primary care physician Vertigo, dizziness, chronic. Medical noncompliance. Thank you for your consultation. Please call me if you have any questions. Sheila Lam MD, FACP, FACC, FSCAI, FHRS, CCDS Interventional Cardiology Cardiac Electrophysiology Vascular Medicine and Endovascular Interventions James LAM MD Jan 13, 2020 21:17
[2020-01-14] MEDS: NS IV 1000 ML 1,000 ML IV SCH ×3 (02:30→20:23)
[2020-01-14 06:00] VITALS: BP 135/82
[2020-01-14] MEDS: FUROSEMIDE 40 MG (LASIX) TAB PO SCH ×2 (06:18→17:25)
[2020-01-14] MEDS: KCL 20 MEQ TAB (K-DUR) PO SCH (06:18)
[2020-01-14] MEDS: inSUlin ASPART (NovoLOG) 1 UNIT/0.01 ML (CHARGE PER UNIT) SQ SCH ×3 (06:18→17:24)
[2020-01-14] MEDS: VENlafaxine XR 75 MG (EFFEXOR XR) CAP PO SCH (06:18)
[2020-01-14] MEDS: inSUlin ASPART (NovoLOG) 1 UNIT/0.01 ML (CHARGE PER UNIT) SC SCH ×4 (06:28→20:19)
[2020-01-14] MEDS: RT-ALBUTEROL/IPRATROPIUM 3 ML (DUONEB) VIAL INH SCH ×3 (07:00→21:23)
[2020-01-14] MEDS: ENOXAPARIN 300 MG/3 ML (LOVENOX) MULTI-DOSE VIAL SQ SCH ×2 (09:03→20:20)
[2020-01-14] MEDS: GEMFIBROZIL 600 MG (LOPID) TAB PO SCH (09:13)
[2020-01-14] MEDS: MAGNESIUM OXIDE (MAG-OX)400 MG TAB PO SCH (09:13)
[2020-01-14] MEDS: VITAMIN D3 25 MCG (1,000 UNITS) TABLET PO SCH ×2 (09:13→20:21)
[2020-01-14] MEDS: VITAMIN E 180 MG (400 UNITS) CAP PO SCH (09:14)
[2020-01-14] MEDS: amLODIPine 10 MG (NORVASC) TAB PO SCH (09:14)
[2020-01-14] MEDS: CARVEDILOL 12.5 MG (COREG) TABLET PO SCH ×2 (09:14→20:21)
[2020-01-14] MEDS: FOLIC ACID 1 MG TAB PO SCH (09:14)
[2020-01-14] MEDS: hydrALAZINE (APRESOLINE) 25 MG TAB PO SCH ×3 (09:14→20:21)
[2020-01-14] MEDS: ALLOPURINOL 100 MG (ZYLOPRIM) TAB PO SCH (09:14)
[2020-01-14] MEDS: OMEGA 3 (FISH OIL) 1000 MG CAP PO SCH ×2 (09:14→20:20)
[2020-01-14] MEDS: ASPIRIN E.C. 81 MG (ECOTRIN) TAB PO SCH (09:15)
[2020-01-14] MEDS: ASCORBIC ACID (VIT C) 500 MG TABLET PO SCH ×2 (09:15→17:26)
[2020-01-14] MEDS: DOCUSATE SODIUM 100 MG (COLACE) CAP PO SCH ×2 (09:15→20:22)
[2020-01-14] MEDS: SENNA W/DOCUSATE (SENOKOT S) TABLET PO SCH ×2 (09:15→20:22)
[2020-01-14] MEDS: MICONAZOLE 2% POWDER (DESENEX AF) 90 GM TOP SCH (09:16)
[2020-01-14] MEDS: TRIAMCINOLONE 0.5% CR (KENALOG) 15 GM TUBE TOP SCH (09:16)
[2020-01-14 09:20] LABS: INR 1.3 (0.8-1.4); PROTHROMBIN TIME PATIENT 16.4 SEC (12.2-14.7)
[2020-01-14] MEDS: NITROGLYCERIN 0.2 MG/PATCH (NITRO-DUR) TD SCH (09:22)
[2020-01-14] MEDS: polyethylene glycoL POWDER 17 GM (MIRALAX) PACK PO SCH ×2 (11:05→20:21)
[2020-01-14] MEDS: POVIDONE (BETADINE) 10% SOLN 240 ML BTL TOP SCH ×2 (11:05→20:22)
--- NOTE | 2020-01-14 11:37 | Progress Note - Hospitalist ---
Subjective HPI/CC On Admission Date Seen by Provider: Jan 14, 2020 Time Seen by Provider: 09:40 Subjective/Events-last exam He reports no complaints or concerns today. He denies any trouble breathing or cough. He denies any fevers or chills. He denies any pain complaints. He denies any nausea or vomiting. He says he is eating and drinking well. Objective Exam Vital Signs Vital Signs Date Time Temp Pulse Resp B/P (MAP) Pulse Ox O2 Delivery O2 Flow Rate FiO2 01/14/20 06:00 36.6 67 16 135/82 (99) 97 NIV CPAP 3.00 Capillary Refill : Less Than 3 SecondsGreater Than 3 Seconds General Appearance: No Apparent Distress, Chronically ill, Obese Respiratory: Lungs Clear, Normal Breath Sounds, No Respiratory Distress Cardiovascular: Regular Rate, Rhythm, No Murmur Gastrointestinal: Normal Bowel Sounds, Non Tender, Soft Extremity: Non Tender, Pedal Edema, Other (Right BKA) Neurologic/Psychiatric: Alert, Oriented x3, No Motor/Sensory Deficits, Normal Mood/Affect Skin: Normal Color, Warm/Dry Results/Procedures Lab Patient resulted labs reviewed. Assessment/Plan Assessment and Plan Assess & Plan/Chief Complaint Osteomyelitis Continue vancomycin Debility PT/OT Type II diabetes mellitus Continue insulin CKD PAD Chronic HFpEF Continue home meds Chronic respiratory failure with hypoxia TREE Continue BiPAP and oxygen supplementation [place] stenosis Resume Coumadin Lovenox bridge Clinical Quality Measures DVT/VTE Risk/Contraindication: Risk Factor Score Per Nursin ANTOINETTE TOMLIN MD Jan 14, 2020 11:37
[2020-01-14] MEDS ORDERED: ANTACID SUSP 30 ML UDC (MYLANTA) PO PRN (12:00)
--- NOTE | 2020-01-14 13:16 | Progress Note - Surgery ---
Subjective Time Seen by a Provider: 11:42 Subjective/Events-last exam Pt seen and examined. Review of Systems General: Malaise Pulmonary: No Dyspnea, No Cough Cardiovascular: No: Chest Pain, Palpitations Objective Exam Vital Signs Date Time Temp Pulse Resp B/P (MAP) Pulse Ox O2 Delivery O2 Flow Rate FiO2 01/14/20 06:00 36.6 67 16 135/82 (99) 97 NIV CPAP 3.00 01/13/20 21:15 93 NIV CPAP 5.00 01/13/20 19:20 NIV CPAP 5.00 01/13/20 18:00 36.7 71 22 113/55 (74) 93 NIV CPAP 01/13/20 14:30 92 NIV CPAP 5.00 I & O 01/14/20 07:00 Intake Total 4200 ml Output Total 2200 ml Balance 2000 ml Capillary Refill : Less Than 3 SecondsGreater Than 3 Seconds General Appearance: No Apparent Distress, Chronically ill, Obese Respiratory: Lungs Clear, Normal Breath Sounds, No Respiratory Distress Cardiovascular: Regular Rate, Rhythm, No Murmur Extremity: Other (Right BKA, Left foot area of 3rd toe amputation looks good, eschar from cautery no necrotic tissue seen) Results Lab Laboratory Tests 01/13/20 17:14: Glucometer 210H 01/13/20 20:08: Glucometer 233H 01/14/20 06:25: Glucometer 207H 01/14/20 09:00: Prothrombin Time 16.4H, INR Comment 1.3 01/14/20 09:33: Glucometer 177H Assessment/Plan Assessment/Plan Assessment/Plan S/P Left 3rd toe Amputation Continue daily iodophor packing and good wound care. Clinical Quality Measures DVT/VTE Risk/Contraindication: Risk Factor Score Per Nursin ARMEN MARTINS DO Jan 14, 2020 13:16
--- NOTE | 2020-01-14 13:56 | Cardiology Progress Note ---
Cardiology SOAP Progress Note Subjective: No cardiac complaints. Objective: I&O/Vital Signs 01/15/20 01/15/20 01/15/20 05:47 07:49 08:00 Temp 37.0 Pulse 68 Resp 24 B/P (MAP) 116/74 (88) Pulse Ox 93 93 93 O2 Delivery NIV CPAP NIV CPAP NIV CPAP O2 Flow Rate 3.00 5.00 5.00 01/15/20 00:00 Intake Total 1620 ml Output Total 1500 ml Balance 120 ml Weight (Pounds): 322 Weight (Ounces): 1.0 Weight (Calculated Kilograms): 146.513630 Constitutional: AAO x 3 Respiratory: chest is bilaterally symmetric, lungs clear to auscultation Cardiovascular: regular rate-rhythm, S1 and S2 Gastrointestional: soft, audible bowel sounds Extremities: no lower extremity edema bilateral Neurologic/Psychiatric: no motor/sensory deficits, alert, normal mood/affect, oriented x 3 Skin: normal color, warm/dry Results/Procedures: Labs Laboratory Tests 01/14/20 19:53: Glucometer 100 01/15/20 05:20: Prothrombin Time 15.7H, INR Comment 1.2, Sodium Level 139, Potassium Level 3.9, Chloride Level 108H, Carbon Dioxide Level 20L, Anion Gap 11, Blood Urea Nitrogen 29H, Creatinine 1.59H, Estimat Glomerular Filtration Rate 44, BUN/Creatinine Ratio 18, Glucose Level 54*L, Calcium Level 8.4L 01/15/20 05:35: Glucometer 83 01/15/20 10:53: Glucometer 186H A/P: Assessment/Dx: PAD, CAD, Hyperlipidemia. Plan: Plan: Peripheral arterial disease, history of right BKA, had progressive wound that resulted in the amputation done in November 2018, followed by BKA. Now having nonhealing wounds to LLE at anterior felton and toes. Underwent toe amputation yesterday morning. Peripheral angiogram done yesterday revealing severe multi segment stenosis of the left SFA, multiple balloon angioplasty then deployment of Supera 6.5 x 100 in the proximal SFA. The lesions at the mid and distal SFA responded to balloon angioplasty with mild recoiling. Total occlusion of the left anterior tibial artery, patent peroneal and posterior tibial, collateral filling the distal tibial. Mild to moderate disease on the right leg. Atherosclerotic plaques in the abdominal aorta and bifurcation with heavily tortuous iliac arteries. Maximize medical therapy. Continue to monitor, will consider intervention on the anterior tibial artery as a last resort. Continue to apply nitro patch to LLE Acute on chronic renal insufficiency, continue to monitor renal function. Coronary artery disease, history of multiple interventions, total of 8 stents, had bypass surgery using single vessel after failed multiple attempts for intervention done at [facility] in 2017. 2D echo done October 2019 revealed normal LV size and normal PA pressure, followed by Dr. Ponce Hypertension, continue on current medications and continue to monitor. Hyperlipidemia, intolerant to multiple statin, continue to monitor lipids COPD, obstructive sleep apnea, maintained on C Pap, persistent dyspnea Pulmonary hypertension. Diabetes mellitus, followed and managed by primary care physician Obesity, educated on weight loss Carotid stenosis, totally occluded left ICA, less than 40 percent on the right side. Followed at primary care physician Vertigo, dizziness, chronic. Medical noncompliance. Thank you for your consultation. Please call me if you have any questions. Sheila Lam MD, FACP, FACC, FSCAI, FHRS, CCDS Interventional Cardiology Cardiac Electrophysiology Vascular Medicine and Endovascular Interventions James LAM MD Jan 14, 2020 13:56
[2020-01-14 17:07] VITALS: BP 149/82
[2020-01-14] MEDS ORDERED: warFARin 10 MG (COUMADIN) TAB PO ONE (18:00)
[2020-01-14] MEDS: FINASTERIDE (PROSCAR) 5 MG TAB PO SCH (20:21)
[2020-01-14] MEDS: TAMSULOSIN 0.4 MG (FLOMAX) CAP PO SCH (20:21)
[2020-01-14] MEDS: AMITRIPTYLINE 25 MG (ELAVIL) TAB PO SCH (20:22)
[2020-01-15 05:47] VITALS: BP 116/74
[2020-01-15] MEDS: NS IV 1000 ML 1,000 ML IV SCH (05:49)
[2020-01-15 05:56] LABS: CALCIUM 8.4 MG/DL (8.5-10.1); CREATININE SERUM 1.59 MG/DL (0.60-1.30); POTASSIUM 3.9 MMOL/L (3.6-5.0)
[2020-01-15] MEDS: inSUlin ASPART (NovoLOG) 1 UNIT/0.01 ML (CHARGE PER UNIT) SC SCH ×2 (06:01→11:47)
[2020-01-15 06:07] LABS: INR 1.2 (0.8-1.4); PROTHROMBIN TIME PATIENT 15.7 SEC (12.2-14.7)
[2020-01-15] MEDS: inSUlin ASPART (NovoLOG) 1 UNIT/0.01 ML (CHARGE PER UNIT) SQ SCH ×2 (06:08→12:00)
[2020-01-15] MEDS: FUROSEMIDE 40 MG (LASIX) TAB PO SCH (06:20)
[2020-01-15] MEDS: VENlafaxine XR 75 MG (EFFEXOR XR) CAP PO SCH (06:20)
[2020-01-15] MEDS: KCL 20 MEQ TAB (K-DUR) PO SCH (06:21)
[2020-01-15] MEDS: RT-ALBUTEROL/IPRATROPIUM 3 ML (DUONEB) VIAL INH SCH (07:49)
[2020-01-15] MEDS: polyethylene glycoL POWDER 17 GM (MIRALAX) PACK PO SCH (08:19)
[2020-01-15] MEDS: POVIDONE (BETADINE) 10% SOLN 240 ML BTL TOP SCH (09:24)
[2020-01-15] MEDS: GEMFIBROZIL 600 MG (LOPID) TAB PO SCH (09:31)
[2020-01-15] MEDS: MAGNESIUM OXIDE (MAG-OX)400 MG TAB PO SCH (09:31)
[2020-01-15] MEDS: amLODIPine 10 MG (NORVASC) TAB PO SCH (09:31)
[2020-01-15] MEDS: OMEGA 3 (FISH OIL) 1000 MG CAP PO SCH (09:31)
[2020-01-15] MEDS: VITAMIN E 180 MG (400 UNITS) CAP PO SCH (09:31)
[2020-01-15] MEDS: FOLIC ACID 1 MG TAB PO SCH (09:31)
[2020-01-15] MEDS: hydrALAZINE (APRESOLINE) 25 MG TAB PO SCH (09:32)
[2020-01-15] MEDS: ASCORBIC ACID (VIT C) 500 MG TABLET PO SCH (09:32)
[2020-01-15] MEDS: CARVEDILOL 12.5 MG (COREG) TABLET PO SCH (09:32)
[2020-01-15] MEDS: ASPIRIN E.C. 81 MG (ECOTRIN) TAB PO SCH (09:32)
[2020-01-15] MEDS: ALLOPURINOL 100 MG (ZYLOPRIM) TAB PO SCH (09:32)
[2020-01-15] MEDS: SENNA W/DOCUSATE (SENOKOT S) TABLET PO SCH (09:32)
[2020-01-15] MEDS: DOCUSATE SODIUM 100 MG (COLACE) CAP PO SCH (09:34)
[2020-01-15] MEDS: VITAMIN D3 25 MCG (1,000 UNITS) TABLET PO SCH (09:34)
[2020-01-15] MEDS: NITROGLYCERIN 0.2 MG/PATCH (NITRO-DUR) TD SCH (09:42)
[2020-01-15] MEDS: ENOXAPARIN 300 MG/3 ML (LOVENOX) MULTI-DOSE VIAL SQ SCH (09:44)
[2020-01-15] MEDS: TRIAMCINOLONE 0.5% CR (KENALOG) 15 GM TUBE TOP SCH (09:45)
[2020-01-15] MEDS: MICONAZOLE 2% POWDER (DESENEX AF) 90 GM TOP SCH (09:45)
--- NOTE | 2020-01-15 10:13 | Physical Therapy Daily Note ---
PT Daily Note-Current Subjective Patient in bed pre tx, he is down at the foot of the bed and the nurse aide is having a hard time getting him scooted up. Patient agrees to PT for bed mobility training, has no complaints of pain. Appearance Patient in bed post tx with nurse all, nurse aide in the room, patient refuses continued treatment due to fatigue. He had been in the chair at bedside and transferred to bed with help of nursing. Mental Status Patient Orientation: Normal For Age Attachments: Oxygen Transfers SCALE: Activities may be completed with or without assistive devices. 9-Cnzrdobknf-hixgrxl completes the activity by him/herself with no assistance from a helper. 5-Set-up or Clean-up Assistance-helper sets up or cleans up; patient completes activity. [place] assists only prior to or following the activity. 4-Supervision or Touching Assistance-helper provides verbal cues and/or touching/steadying and/or contact guard assistance as patient completes activity. Assistance may be provided throughout the activity or intermittently. 3-Partial/Moderate Assistance-helper does LESS THAN HALF the effort. [place] lifts, holds or supports trunk or limbs, but provides less than half the effort. 2-Substantial/Maximal Assistance-helper does MORE THAN HALF the effort. [place] lifts or holds trunk or limbs and provides more than half the effort. 4-Zlzwloosv-lkiqwk does ALL the effort. Patient does none of the effort to complete the activity. Or, the assistance of 2 or more helpers is required for the patient to complete the activity. If activity was not attempted, code reason: 7-Patient Refused. 9-Not Applicable-not attempted and the patient did not perform the activity before the current illness, exacerbation or injury. 10-Not Attempted due to Environmental Limitations-(lack of equipment, weather restraints, etc.). 88-Not Attempted due to Medical Conditions or Safety Concerns. Roll Left & Right (QC): 2 Patient had to roll several times for clearing O2 lines and getting his gown arranged. He was max assist of 2 for scooting, cues for hand placement, patient was able to reach above for touch up carver on the bed to help scoot up, it took several tries and bed in trendelenburg to get him in the correct position. Treatments bed mobility Assessment Current Status: Poor Progress patient very fatigued, refused further treatment PT Snf Goals Management Nurse Rn Goals PT Management Nurse Rn Goals Time Frame: Feb 03, 2020 Roll Left & Right (QC): 6 Sit to Lying (QC): 6 Lying-Sitting on Side/Bed(QC): 6 Sit to Stand (QC): 9 Chair/Jts-jb-[place] Xfer(QC): 5 Toilet Transfer (QC): 5 Car Transfer (QC): 5 Does the Patient Walk: No and Walking Goal NOT indicated Walk 10 feet (QC): 9 Walk 50ft with 2 Turns (QC): 9 Walk 150 ft (QC): 9 Walking 10ft on Uneven Surface: 9 1 Step (curb) (QC): 9 4 Steps (QC): 9 12 Steps (QC): 9 Picking up an Object (QC): 9 Wheel 50 feet with 2 turns (QC: 6 Type: Motorized Wheel 150 feet: 6 Type: Motorized PT Plan Problem List Problem List: Activity Tolerance, Functional Strength, Safety, Balance, Gait, Transfer, Bed Mobility, ROM Treatment/Plan Treatment Plan: Continue Plan of Care Treatment Plan: Bed Mobility, Education, Functional Activity Farshad, Functional Strength, Safety, Therapeutic Exercise, Transfers Treatment Duration: Feb 03, 2020 Frequency: 6 times per week Estimated Hrs Per Day: .25 hour per day Safety Risks/Education Patient Education: Correct Positioning, Safety Issues Teaching Recipient: Patient Teaching Methods: Demonstration, Discussion Response to Teaching: Reinforcement Needed Time/GCodes Time In: 0959 Time Out: 1008 Total Billed Treatment Time: 9 Total Billed Treatment 1 visit FA 9' BETTY STRONG PT Jan 15, 2020 10:13
[2020-01-15] MEDS ORDERED: ALPR0.254 PO (10:24)
--- NOTE | 2020-01-15 10:28 | Discharge Inst-Skilled Nursing ---
Discharge Inst-Skilled NF Consult/Follow Up/Orders Follow Up Appt.: Please follow up with Dr Bustillos for continued care of your wound. Please follow up with Dr Costa in the next week. Skilled NF Admit to: [facility] Certification ([facility]) I certify that SNF services are required to be given on an inpatient basis because of the above named patient's need for intermediate care on a continuing basis for the conditions(s) for which he/she was receiving inpatient hospital services prior to his/her transfer to the SNF. Residential Facility Order: Water Quality Specialist-Evaluate & Treat, Physical Therapy-Evaluate & Treat, Wound Care-Eval/Treat Oxygen Delivery Method: NIV CPAP Oxygen Flow Rate L/min (Range): 3 Discharge Diet: ADA Diet, Cardiac Diet New & Resume Previous Orders Antonio Barraza Jan 15, 2020 10:25 ANTONIO BARRAZA MD Jan 15, 2020 10:28
--- NOTE | 2020-01-15 11:04 | Discharge Summary ---
Diagnosis/Chief Complaint Date of Admission Jan 11, 2020 at 11:57 Date of Discharge Discharge Date: Jan 15, 2020 Primary Care Bin Rosales MD Discharge Summary Procedures/Consulations Dr Rosario- Cardiology Dr Bustillos- Surgery Discharge Physical Exam Allergies: Coded Allergies: niacin (Unverified Allergy, Unknown, 06/26/10) rosuvastatin (Verified Allergy, Unknown, 04/20/07) fenofibrate (Unverified Adverse Reaction, Unknown, LIVER PROBLEMS, 5) Vitals & I&Os Vital Signs Date Time Temp Pulse Resp B/P (MAP) Pulse Ox O2 Delivery O2 Flow Rate FiO2 01/15/20 08:00 93 NIV CPAP 5.00 01/15/20 05:47 37.0 68 24 116/74 (88) General Appearance: No Apparent Distress, Chronically ill, Obese Respiratory: Lungs Clear, No Respiratory Distress Cardiovascular: Regular Rate, Rhythm, No Murmur Gastrointestinal: Normal Bowel Sounds, Soft Neurologic/Psychiatric: Alert, Oriented x3 Hospital Course Pt was admitted to swing bed due to osteomyelitis following amputation of 2 toes on his left foot. He completed IV abx and did well. He was treated with PT/OT and continued skilled therapy was recommended. He was discharged to [facility] for continued therapy in hopes of returning to his independent living facility. He is to follow up with Dr Bustillos regarding his surgical site and they have elected for follow up with Dr Costa for primary care. He was discharged in improved condition. Labs (last 24 hrs) Laboratory Tests 01/14/20 19:53: Glucometer 100 01/15/20 05:20: Prothrombin Time 15.7H, INR Comment 1.2, Sodium Level 139, Potassium Level 3.9, Chloride Level 108H, Carbon Dioxide Level 20L, Anion Gap 11, Blood Urea Nitrogen 29H, Creatinine 1.59H, Estimat Glomerular Filtration Rate 44, BUN/Creatinine Ratio 18, Glucose Level 54*L, Calcium Level 8.4L 01/15/20 05:35: Glucometer 83 01/15/20 10:53: Glucometer 186H Patient resulted labs reviewed. Pending Labs Laboratory Tests 01/15/20 10:53: Glucometer 186 Discussion & Recommendations Discharge Planning: >30 minutes discharge planning Discharge Home Medications: Active Scripts Active Alprazolam 0.25 Mg Tablet 0.25 Mg PO Q8H PRN Reported Warfarin Sodium 5 Mg Tablet 5 Mg PO Q48H ALTERNATES 10MG & 5MG Warfarin Sodium 10 Mg Tablet 10 Mg PO Q48H ALTERNATES BETWEEN 5MG & 10MG Zofran (Ondansetron HCl) 8 Mg Tablet 8 Mg PO Q8H PRN Magnesium (Magnesium Oxide) 400 Mg Tablet 400 Mg PO DAILY Iprat-Albut 0.5-3(2.5) mg/3 ml (Ipratropium/Albuterol Sulfate) 3 Ml Ampul.neb 3 Ml IH Q6H PRN Folic Acid 1 Mg Tablet 1 Mg PO DAILY D3-2000 (Cholecalciferol (Vitamin D3)) 50 Mcg Capsule 50 Mcg PO BID Novolog (Insulin Aspart) 100 Unit/1 Ml Susp 18 Unit SQ TIDAC LAST FILLED 09-12-2019 # 3 VIALS/55 DAY SUPPLY Hydralazine HCl 100 Mg Tablet 100 Mg PO TID Flomax (Tamsulosin HCl) 0.4 Mg Cap 0.4 Mg PO HS Ascorbic Acid 500 Mg Tablet 500 Mg PO BID Potassium Chloride 20 Meq Tablet.er 20 Meq PO DAILY Lasix (Furosemide) 40 Mg Tablet 40 Mg PO BID Ferrous Sulfate 325 Mg Tablet 325 Mg PO Q48H Meclizine HCl 25 Mg Tablet 25 Mg PO BID PRN Amitriptyline HCl 25 Mg Tablet 25 Mg PO HS Finasteride 5 Mg Tablet 5 Mg PO HS Calcium 600 + Vit D 400 Tablet (Calcium Carbonate/Vitamin D3) 1 Each Tablet 1 Tab PO DAILY Aspirin EC (Aspirin) 81 Mg Tablet.dr 81 Mg PO DAILY Fish Oil 1,000 mg Softgel ([place]-3/Dha/Epa/Fish Oil) 1 Each Capsule 1,000 Mg PO BID Levemir (Insulin Determir) 1,000 Units/10 Ml Soln 67 Units SC BID LAST FILLED 09-25-2019 #3 VIALS/22 DAY SUPPLY Venlafaxine HCl ER (Venlafaxine HCl) 150 Mg Cap.er.24h 150 Mg PO DAILY Carvedilol 25 Mg Tablet 25 Mg PO BID Amlodipine Besylate 10 Mg Tablet 10 Mg PO DAILY Allopurinol 100 Mg Tablet 100 Mg PO DAILY Gemfibrozil 600 Mg Tablet 600 Mg PO DAILY Vitamin E (Vitamin E Acetate) 400 Unit Capsule 400 Unit PO DAILY Instructions to patient/family Please see electronic discharge instructions given to patient. Clinical Quality Measures DVT/VTE Risk/Contraindication: Risk Factor Score Per Nursin BRANDO,ANTONIO M MD Jan 15, 2020 11:04
--- NOTE | 2020-01-15 11:09 | Cardiology Progress Note ---
Subjective Date Seen by Provider: Jan 15, 2020 Time Seen by Provider: 08:55 Subjective/Events-last exam Patient in bed, no new complaint. Denies any chest pain or increased dyspnea. Objective-Cardiology Exam Last Set of Vital Signs Vital Signs 01/15/20 01/15/20 05:47 08:00 Temp 37.0 Pulse 68 Resp 24 B/P (MAP) 116/74 (88) Pulse Ox 93 O2 Delivery NIV CPAP O2 Flow Rate 5.00 Capillary Refill : Less Than 3 SecondsGreater Than 3 Seconds I&O Intake and Output 01/15/20 00:00 Intake Total 4637.5 ml Output Total 2500 ml Balance 2137.5 ml Intake Oral 2120 ml IV Total 2517.5 ml Output Urine Total 2500 ml # Voids 1 General: Alert, Oriented X3, Cooperative HEENT: Atraumatic, PERRLA Neck: Supple, No JVD, No Thyromegaly Lungs: Clear to Auscultation, Normal Air Movement Heart: Regular Rate, Normal S1, Normal S2, No Murmurs Abdomen: Normal Bowel Sounds, Soft, No Tenderness, No Hepatosplenomegaly, No Masses Extremities: No Cyanosis, Other (trace edema BLE) Skin: No Rashes Neuro: Normal Speech, Cranial Nerves 3-12 NL Psych/Mental Status: Mental Status NL, Mood NL Results Lab Laboratory Tests 01/15/20 05:20 A/P-Cardiology Admission Diagnosis PAD CAD HTN HLP Assessment/Plan Peripheral arterial disease, history of right BKA, had progressive wound that resulted in the amputation done in November 2018, followed by BKA. Now having nonhealing wounds to LLE at anterior eflton and toes. Underwent toe amputation yesterday morning. Peripheral angiogram done yesterday revealing severe multisegment stenosis of the left SFA, multiple balloon angioplasty then deployment of Supera 6.5 x 100 in the proximal SFA. The lesions at the mid and distal SFA responded to balloon angioplasty with mild recoiling. Total occlusion of the left anterior tibial artery, patent peroneal and posterior tibial, collateral filling the distal tibial. Mild to moderate disease on the right leg. Atherosclerotic plaques in the abdominal aorta and bifurcation with heavily tortuous iliac arteries. Maximize medical therapy. Continue to monitor, will consider intervention on the anterior tibial artery as a last resort. Continue to apply nitro patch to LLE Acute on chronic renal insufficiency, continue to monitor renal function. Coronary artery disease, history of multiple interventions, total of 8 stents, had bypass surgery using single vessel after failed multiple attempts for intervention done at [facility] in 2017. 2D echo done October 2019 revealed normal LV size and normal PA pressure, followed by Dr. Ponce Hypertension, continue on current medications and continue to monitor. Hyperlipidemia, intolerant to multiple statin, continue to monitor lipids COPD, obstructive sleep apnea, maintained on C Pap, persistent dyspnea Pulmonary hypertension. Diabetes mellitus, followed and managed by primary care physician Obesity, educated on weight loss Carotid stenosis, totally occluded left ICA, less than 40 percent on the right side. Followed at primary care physician Vertigo, dizziness, chronic. Medical noncompliance. Patient was seen and evaluated with Brenda, examination performed, management plan was discussed, agree with the current scribed note, I made few changes to the note using Italic font Patient is laying down in bed, comfortable, no new complaint. Okay for discharge from cardiology standpoint and follow up as an outpatient Clinical Quality Measures DVT/VTE Risk/Contraindication: Risk Factor Score Per Nursin BRENDA HAWLEY Jan 15, 2020 11:09 am BARBIE ALFRED MD Jan 15, 2020 1:46 pm
--- NOTE | 2020-01-15 11:24 | Occupational Ther Daily Note ---
OT Current Status-Daily Note Subjective Pt sleeping in bed, woke to name 2x's. Pt stated that he has been up in chair and moved back and forth into bed and refuses to participate in ADLs and/or exercises. Mental Status/Objective Patient Orientation: Person, Place, Time, Situation ADL-Treatment Therapy Code Descriptions/Definitions Functional [place] Measure: 0=Not Assessed/NA 4=Minimal Assistance 1=Total Assistance 5=Supervision or Setup 2=Maximal Assistance 6=Modified Barron 3=Moderate Assistance 7=Complete IndependenceSCALE: Activities may be completed with or without assistive devices. 1-Yllptookav-ivdriea completes the activity by him/herself with no assistance from a helper. 5-Set-up or Clean-up Assistance-helper sets up or cleans up; patient completes activity. [place] assists only prior to or following the activity. 4-Supervision or Touching Assistance-helper provides verbal cues and/or touching/steadying and/or contact guard assistance as patient completes activity. Assistance may be provided throughout the activity or intermittently. 3-Partial/Moderate Assistance-helper does LESS THAN HALF the effort. [place] lifts, holds or supports trunk or limbs, but provides less than half the effort. 2-Substantial/Maximal Assistance-helper does MORE THAN HALF the effort. [place] lifts or holds trunk or limbs and provides more than half the effort. 2-Vzmfzeaop-ljbmki does ALL the effort. Patient does none of the effort to complete the activity. Or, the assistance of 2 or more helpers is required for the patient to complete the activity. If activity was not attempted, code reason: 7-Patient Refused. 9-Not Applicable-not attempted and the patient did not perform the activity before the current illness, exacerbation or injury. 10-Not Attempted due to Environmental Limitations-(lack of equipment, weather restraints, etc.). 88-Not Attempted due to Medical Conditions or Safety Concerns. Other Treatment Pt did agrees to scoot up in bed. With feet elevated past 90*, pt able to pull self using HOB. Pt declined any further treatment. After session, pt lying in bed with call light/phone in reach. All needs met in room. OT Short Term Goals Short Term Goals Time Frame: Jan 19, 2020 Oral hygiene: 5 Toileting hygiene: 3 OT Longterm Goals Longterm Goals Time Frame: Jan 26, 2020 Eating (QC): 6 Oral Hygiene (QC): 6 Toileting Hygiene (QC): 4 Shower/Bathe Self (QC): 3 Upper Body Dressing (QC): 5 Lower Body Dressing (QC): 3 On/Off Footwear (QC): 2 Additional Goals: 1-Demonstrate ADL Tasks, 2-Verbalize Understanding, 3- ImproveStrength/Farshad 1=Demonstrate adherence to instructed precautions during ADL tasks. 2=Patient will verbalize/demonstrate understanding of assistive devices/modifications for ADL. 3=Patient will improve strength/tolerance for activity to enable patient to perform ADL's. OT Education/Plan Problem List/Assessment Assessment: Decreased Activ Tolerance, Decreased UE Strength, Impaired Self- Care Skills Pt would benefit from skilled OT to increase his independence in basic self care to allow him to safely return to his home at [place] Discharge Recommendations Plan/Recommendations: Continue POC (possible discharge today to SNF) Treatment Plan/Plan of Care Patient would benefit from OT for education, treatment and training to promote independence in ADL's, mobility, safety and/or upper extremity function for ADL's. Plan of Care: ADL Retraining, Functional Mobility, UE Funct Exercise/Act, UE Neuromus Re-Ed/Coord Treatment Duration: Jan 26, 2020 Frequency: 5 times per week Estimated Hrs Per Day: .5 hour per day Agreement: Yes Rehab Potential: Fair Time/GCodes Start Time: 10:29 Stop Time: 10:37 Total Time Billed (hr/min): 8 Billed Treatment Time 1 visit-EX 1 (8 min) refusal for any more treatment MARIA A KEENE Jan 15, 2020 11:24
[2020-01-15] MEDS: FERROUS SULF 325 MG (IRON) TAB PO SCH (11:30)
--- NOTE | 2020-01-15 12:02 | NUR ---
FINAL DISCHARGE PLAN: Patient will discharge to [facility] skilled status for wound care and PT. He will be picked up at 1 p.m. by [facility]. They will bring a large WC and Oxygen. Unfinalized orders have been faxed. Sister is asking for IS
--- NOTE | 2020-01-15 13:34 | NUR ---
DC'D PER WC TO NH.
--- NOTE | 2020-01-16 10:06 | Therapy Team Discharge Summary ---
Therapy Discharge Summary Discharge Recommendations Date of Discharge Jan 15, 2020 at 13:35 Physical Therapy Patient seen x 2 sessions with minimal participation. Patient continues to require max to dependent assist with all bed mobility and declined OOB activity. Patient dismissed to [place] for continued care. Occupational Therapy Decreased Activ Tolerance, Decreased UE Strength, Impaired Self-Care Skills PT Long-Term Goals Long-Term Goals PT Long-Term Goals Time Frame: Feb 03, 2020 Roll Left to Right (QC): 6 Sit to Lying (QC): 6 Lying-Sitting on Side/Bed(QC): 6 Sit to Stand (QC): 9 Chair/Ozi-sn-Mwfnw Xfer(QC): 5 Car Transfer (QC): 5 Does the Patient Walk: No and Walking Goal NOT indicated Walk 10 feet (QC): 9 Walk 10ft-Uneven Surface(QC): 9 Walk 50ft with 2 Turns (QC): 9 Walk 150 ft (QC): 9 Wheel 50 feet with 2 turns (QC: 6 1 Step (curb) (QC): 9 4 Steps (QC): 9 12 Steps (QC): 9 Picking up an Object (QC): 9 OT Long-Term Goals Long-Term Goals Time Frame: Jan 26, 2020 Eating (QC): 6 Oral Hygiene (QC): 6 Shower/Bathe Self (QC): 3 Upper Body Dressing (QC): 5 Lower Body Dressing (QC): 3 On/Off Footwear (QC): 2 Toileting Hygiene (QC): 4 Toilet/Commode Transfer (QC): 5 Additional Goals: 1-Demonstrate ADL Tasks, 2-Verbalize Understanding, 3- ImproveStrength/Farshad 1=Demonstrate adherence to instructed precautions during ADL tasks. 2=Patient will verbalize/demonstrate understanding of assistive devices/modifications for ADL. 3=Patient will improve strength/tolerance for activity to enable patient to perform ADL's. ROSELYN FREEMAN PT Jan 16, 2020 10:06
--- NOTE | 2020-01-16 15:02 | Therapy Team Discharge Summary ---
Therapy Discharge Summary Discharge Recommendations Date of Discharge Jan 15, 2020 at 13:35 Therapy D/C Recommendations: 24 hr Supervision, Scheduled Assistance, Long-Term (TCU/NH) Occupational Therapy Pt.has been seen by occupational therapy to work on increased strength and independence with daily skills. Pt. has declined therapy and not participated well after toe surgery. Goals not met due to this. Pt. was discharged to [facility] facility to work on continued strength, with 24 hour assist. Decreased Activ Tolerance, Decreased UE Strength, Dependent Transfers, Impaired Bed Mobility, Impaired Funct Balance, Impaired I ADL's, Impaired Self-Care Skills PT Traffic Counter Goals Traffic Counter Goals PT Assisted Goals Time Frame: Feb 03, 2020 Roll Left to Right (QC): 6 Sit to Lying (QC): 6 Lying-Sitting on Side/Bed(QC): 6 Sit to Stand (QC): 9 Chair/Hlc-rv-Oowyp Xfer(QC): 5 Car Transfer (QC): 5 Does the Patient Walk: No and Walking Goal NOT indicated Walk 10 feet (QC): 9 Walk 10ft-Uneven Surface(QC): 9 Walk 50ft with 2 Turns (QC): 9 Walk 150 ft (QC): 9 Wheel 50 feet with 2 turns (QC: 6 1 Step (curb) (QC): 9 4 Steps (QC): 9 12 Steps (QC): 9 Picking up an Object (QC): 9 OT Assisted Goals Traffic Counter Goals Time Frame: Jan 26, 2020 Eating (QC): 6 (met) Oral Hygiene (QC): 6 (not met) Shower/Bathe Self (QC): 3 (not met) Upper Body Dressing (QC): 5 (not met) Lower Body Dressing (QC): 3 (not met) On/Off Footwear (QC): 2 (not met) Toileting Hygiene (QC): 4 (not met) Toilet/Commode Transfer (QC): 5 (not met) Additional Goals: 1-Demonstrate ADL Tasks, 2-Verbalize Understanding, 3- ImproveStrength/Farshad 1=Demonstrate adherence to instructed precautions during ADL tasks. 2=Patient will verbalize/demonstrate understanding of assistive devices/modifications for ADL. 3=Patient will improve strength/tolerance for activity to enable patient to perform ADL's. AARON ANTON OT Jan 16, 2020 15:02
== END 2020-01-15 13:35 | DRG 560 ==
LOC: 4TH 12:00
PROVIDERS: ADMIT Internal Medicine; ATTEND Internal Medicine
DX: Z47.81 Encounter for orthopedic aftercare following surgical amputation (principal); Z89.422 Acquired absence of other left toe(s); I13.0 Hypertensive heart and chronic kidney disease with heart failure and stage 1 through stage 4 chronic kidney disease, or unspecified chronic kidney disease; I50.32 Chronic diastolic (congestive) heart failure; Z68.43 Body mass index [BMI] 50.0-59.9, adult; J96.11 Chronic respiratory failure with hypoxia; I70.202 Unspecified atherosclerosis of native arteries of extremities, left leg; I70.0 Atherosclerosis of aorta; N18.9 Chronic kidney disease, unspecified; N28.9 Disorder of kidney and ureter, unspecified; I25.10 Atherosclerotic heart disease of native coronary artery without angina pectoris; E78.5 Hyperlipidemia, unspecified; J44.9 Chronic obstructive pulmonary disease, unspecified; G47.33 Obstructive sleep apnea (adult) (pediatric); I27.20 Pulmonary hypertension, unspecified; E11.9 Type 2 diabetes mellitus without complications; E66.9 Obesity, unspecified; I66.8 Occlusion and stenosis of other cerebral arteries; I65.23 Occlusion and stenosis of bilateral carotid arteries; R42 Dizziness and giddiness; Z91.19 Patient's noncompliance with other medical treatment and regimen; Z89.511 Acquired absence of right leg below knee; Z95.5 Presence of coronary angioplasty implant and graft
CPT/HCPCS: 36415; 71045; 80048; 80202; 82962; 85025; 85610; 94640; 94664; 94760

== ENCOUNTER 2020-02-21 10:47 | Emergency (ER) | payer MEDICARE ==
[~2020-02-21] VITALS: Ht 182.9 cm; Wt 156.0 kg
[~2020-02-21 10:47] MED LIST changes: +ALPR0.254 PO; -WARF10TA44 PO; +WRF10T PO
--- NOTE | 2020-02-21 11:05 | NUR ---
PT DOES NOT WISH TO GET OUT OF WHEELCHAIR AT THIS TIME.
--- NOTE | 2020-02-21 11:29 | ED Lower Extremity ---
General Chief Complaint: Lower Extremity Stated Complaint: FOOT PAIN Nursing Triage Note: PT HERE FROM [facility]. PT REPORTS HE WAS SENT HIM BECAUSE HIS NURSE SAID THAT HIS FOOT HAS AN ODOR AND IS WORRIED ABOUT INFECTION. PT DENIES ANY PAIN. Nursing Sepsis Screen: No Definite Risk Source: patient Exam Limitations: no limitations History of Present Illness Date Seen by Provider: Feb 21, 2020 Time Seen by Provider: 11:26 Initial Comments To ER by private vehicle from via [facility] with reports of a foul odor to the left foot as well as drainage from the surgical bed. 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 He is currently on cli ndamycin and has had a wound VAC on it for 2 weeks. Denies any systemic symptoms such as fevers chills. Onset: just prior to arrival Severity: moderate Pain/Injury Location: left foot Method of Injury: unknown No sensation in his foot secondary to neuropathy Allergies and Home Medications Allergies Coded Allergies: niacin (Unverified Allergy, Unknown, 06/26/10) rosuvastatin (Verified Allergy, Unknown, 04/20/07) fenofibrate (Unverified Adverse Reaction, Unknown, LIVER PROBLEMS, 5) Home Medications Allopurinol 100 Mg Tablet, 100 MG PO DAILY, (Reported) Alprazolam 0.25 Mg Tablet, 0.25 MG PO Q8H PRN for ANXIETY Prescribed by: ANTONIO MICHAELS on 01/15/20 1024 Amitriptyline HCl 25 Mg Tablet, 25 MG PO HS, (Reported) Amlodipine Besylate 10 Mg Tablet, 10 MG PO DAILY, (Reported) Ascorbic Acid 500 Mg Tablet, 500 MG PO BID, (Reported) Aspirin 81 Mg Tablet.dr, 81 MG PO DAILY, (Reported) Calcium Carbonate/Vitamin D3 1 Each Tablet, 1 TAB PO DAILY, (Reported) Carvedilol 25 Mg Tablet, 25 MG PO BID, (Reported) Cholecalciferol (Vitamin D3) 50 Mcg Capsule, 50 MCG PO BID, (Reported) Ferrous Sulfate 325 Mg Tablet, 325 MG PO Q48H, (Reported) Finasteride 5 Mg Tablet, 5 MG PO HS, (Reported) Folic Acid 1 Mg Tablet, 1 MG PO DAILY, (Reported) Furosemide 40 Mg Tablet, 40 MG PO BID, (Reported) Gemfibrozil 600 Mg Tablet, 600 MG PO DAILY, (Reported) Hydralazine HCl 100 Mg Tablet, 100 MG PO TID, (Reported) Insulin Aspart 100 Unit/1 Ml Susp, 18 UNIT SQ TIDAC, (Reported) LAST FILLED 09-12-2019 # 3 VIALS/55 DAY SUPPLY Insulin Determir 1,000 Units/10 Ml Soln, 67 UNITS SC BID, (Reported) LAST FILLED 09-25-2019 #3 VIALS/22 DAY SUPPLY Ipratropium/Albuterol Sulfate 3 Ml Ampul.neb, 3 ML IH Q6H PRN for SHORTNESS OF BREATH, (Reported) Magnesium Oxide 400 Mg Tablet, 400 MG PO DAILY, (Reported) Meclizine HCl 25 Mg Tablet, 25 MG PO BID PRN for DIZZINESS, (Reported) [place]-3/Dha/Epa/Fish Oil 1 Each Capsule, 1,000 MG PO BID, (Reported) Ondansetron HCl 8 Mg Tablet, 8 MG PO Q8H PRN for NAUSEA/VOMITING-1ST LINE, (Reported) Potassium Chloride 20 Meq Tablet.er, 20 MEQ PO DAILY, (Reported) Tamsulosin HCl 0.4 Mg Cap, 0.4 MG PO HS, (Reported) Venlafaxine HCl 150 Mg Cap.er.24h, 150 MG PO DAILY, (Reported) Vitamin E Acetate 400 Unit Capsule, 400 UNIT PO DAILY, (Reported) Warfarin Sodium 10 Mg Tablet, 10 MG PO Q48H, (Reported) ALTERNATES BETWEEN 5MG & 10MG Warfarin Sodium 5 Mg Tablet, 5 MG PO Q48H, (Reported) ALTERNATES 10MG & 5MG Patient Home Medication List Home Medication List Reviewed: Yes Review of Systems Constitutional: see HPI EENTM: see HPI Respiratory: no symptoms reported Cardiovascular: no symptoms reported Genitourinary: no symptoms reported Musculoskeletal: no symptoms reported Skin: see HPI Psychiatric/Neurological: No Symptoms Reported Past [id number]-[id number] Hx Patient Social History Drug of Choice: past hx drug use. Former Smoker, Quit: Jul 07, 2006 2nd Hand Smoke Exposure: No Recent Foreign Travel: No Contact w/Someone Who Travel: No Recent Infectious Disease Expo: No Recent Hopitalizations: Yes Immunizations Up To Date Tetanus Booster (TDap): Unknown PED Vaccines UTD: No Date of Pneumonia Vaccine: May 02, 2018 Seasonal Allergies Seasonal Allergies: No Past Medical History Surgeries: Yes (4 VESSEL CABG 2006; CARDIAC STENTS X 8; LEFT KNEE SCOPE) Cardiac, CABG, Coronary Stent, Orthopedic Respiratory: Yes (CPAP) Sleep Apnea, COPD Currently Using CPAP: Yes Currently Using BIPAP: No Cardiac: Yes Cardiomyopathy, Chronic Edema/Swelling, Coronary Artery Disease, Deep Vein Thrombosis, Heart Attack, High Cholesterol, Hypertension, Peripheral Vascular, Syncope Neurological: Yes (3 PINCHED NERVES ON NECK ON LEFT SIDE; PERIPHERAL NEUROPATHY) Neuropathy, Vertigo Reproductive Disorders: No Genitourinary: No Gastrointestinal: Yes Gall Bladder Disease Musculoskeletal: Yes (CHRONIC NECK PAIN ; LEFT KNEE SCOPE) Degenerate Disk Disease, Arthritis, Chronic Back Pain Endocrine: Yes (INSULIN + PILLS; MORBID OBESITY) Diabetes, Insulin dep HEENT: No Loss of Vision: Bilateral Cancer: No Psychosocial: No Integumentary: Yes (CHRONIC DIABETIC FOOT ULCER RIGHT GREAT TOE) Recent Skin Changes Blood Disorders: No Family Medical History Cardiovascular disease 19 FATHER, Onset:Unknown FH: breast cancer G8 SISTER, Onset:50's - 60 FH: ovarian cancer 19 MOTHER, Onset:40's - 50 No Family History of: Cancer of mouth Heart Disease, Cancer Physical Exam Vital Signs Vital Signs - First Documented 02/21/20 11:05 Temp 36.9 Pulse 67 Resp 14 B/P (MAP) 135/69 (91) Pulse Ox 99 O2 Delivery Nasal Cannula O2 Flow Rate 5.00 Capillary Refill : Less Than 3 Seconds Height, Weight, BMI Height: 6'0.00" Weight: 322lbs. 1.0oz. [id number]; 55.00 BMI Method:Stated General Appearance: WD/WN, no apparent distress, obese, other (chronically ill. Right fhnic-[id number]-[id number] amputation. Left third toe amputation. Minimal erythema over the dorsal and plantar surface of the foot. There is a discharge and some necrotic tissue seen in the wound bed.) HEENT: PERRL/EOMI, normal ENT inspection Neck: non-tender, full range of motion (now) Respiratory: no respiratory distress, no accessory muscle use Hips: bilateral hip non-tender, bilateral hip normal inspection, bilateral hip normal range of motion Legs: bilateral leg non-tender, bilateral leg normal inspection, bilateral leg normal range of motion Knees: bilateral knee non-tender, bilateral knee normal inspection, bilateral knee normal range of motion Ankles: bilateral ankle non-tender, bilateral ankle normal inspection, bilateral ankle normal range of motion Feet: bilateral foot swelling; left foot other (see above description for wound.) Neurologic/Psychiatric: alert, normal mood/affect Skin: normal color, warm/dry Progress/Results/Core Measures Results/Orders Lab Results Laboratory Tests Test 02/21/20 11:34 02/21/20 11:39 Range/Units White Blood Count 4.0 L 4.3-11.0 10^3/uL Red Blood Count 3.45 L 4.35-5.85 10^6/uL Hemoglobin 9.2 L 13.3-17.7 G/DL Hematocrit 29 L 40-54 % Mean Corpuscular Volume 83 80-99 FL Mean Corpuscular Hemoglobin 27 25-34 PG Mean Corpuscular Hemoglobin Concent 32 32-36 G/DL Red Cell Distribution Width 17.4 H 10.0-14.5 % Platelet Count 124 L 130-400 10^3/uL Mean Platelet Volume 10.2 7.4-10.4 FL Neutrophils (%) (Auto) 61 42-75 % Lymphocytes (%) (Auto) 24 12-44 % Monocytes (%) (Auto) 11 0-12 % Eosinophils (%) (Auto) 3 0-10 % Basophils (%) (Auto) 0 0-10 % Neutrophils # (Auto) 2.5 1.8-7.8 X 10^3 Lymphocytes # (Auto) 1.0 1.0-4.0 X 10^3 Monocytes # (Auto) 0.4 0.0-1.0 X 10^3 Eosinophils # (Auto) 0.1 0.0-0.3 10^3/uL Basophils # (Auto) 0.0 0.0-0.1 10^3/uL Erythrocyte Sedimentation Rate 127 H 0-30 MM/HR Sodium Level 138 135-145 MMOL/L Potassium Level 3.9 3.6-5.0 MMOL/L Chloride Level 102 98-107 MMOL/L Carbon Dioxide Level 25 21-32 MMOL/L Anion Gap 11 5-14 MMOL/L Blood Urea Nitrogen 34 H 7-18 MG/DL Creatinine 1.83 H 0.60-1.30 MG/DL Estimat Glomerular Filtration Rate 37 BUN/Creatinine Ratio 19 Glucose Level 190 H 70-105 MG/DL Calcium Level 8.8 8.5-10.1 MG/DL Corrected Calcium 9.2 8.5-10.1 MG/DL Total Bilirubin 0.4 0.1-1.0 MG/DL Aspartate Amino Transf (AST/SGOT) 13 5-34 U/L Alanine Aminotransferase (ALT/SGPT) 15 0-55 U/L Alkaline Phosphatase 98 40-136 U/L C-Reactive Protein High Sensitivity 4.93 H 0.00-0.50 MG/DL Total Protein 6.9 6.4-8.2 GM/DL Albumin 3.5 3.2-4.5 GM/DL Prothrombin Time 17.3 H 12.2-14.7 SEC INR Comment 1.4 0.8-1.4 My Orders Orders - PRIMO FRANCOIS APRN Wound Culture (02/21/20 11:22) Cbc With Automated Diff (02/21/20 11:22) Erythrocyte Sedimentation Rate (02/21/20 11:22) Hs C Reactive Protein (02/21/20 11:22) Comprehensive Metabolic Panel (02/21/20 11:22) Ed Iv/Invasive Line Start (02/21/20 11:22) Foot, Left, 3 Views (02/21/20 11:22) Protime With Inr (02/21/20 12:13) Vital Signs/I&O 02/21/20 11:05 Temp 36.9 Pulse 67 Resp 14 B/P (MAP) 135/69 (91) Pulse Ox 99 O2 Delivery Nasal Cannula O2 Flow Rate 5.00 Blood Pressure Mean: 91 Diagnostic Imaging Diagonstic Imaging: Xray Comments NAME: ELMO GARCIA JERRI REC#: [id number] PT STATUS: REG ER : 1950 PHYSICIAN: PRIMO FRANCOIS APRN ADMIT DATE: 02/21/20/ER Draft Date of Exam:02/21/20 FOOT, LEFT, 3 VIEWS INDICATION: Foot infection. TIME OF EXAM: 11:53 AM 3 views of the left foot were obtained. There are postsurgical changes of amputation of the 3rd toe. There appear to be bony destructive changes involving the 3rd metatarsal head consistent with osteomyelitis. There are also destructive changes of the 4th metatarsal head. There appears to be irregularity involving the proximal aspect of the proximal phalanges of the 2nd and 4th toes as well. There appears to be some minimal soft tissue gas within the soft tissues at the amputation site. No fractures are seen. There is overlying dorsal soft tissue swelling. Midfoot and hindfoot are unremarkable. IMPRESSION: Soft tissue swelling. There are findings suggestive of osteomyelitis of the distal 3rd and 4th metatarsals as well as the proximal phalanges of the 2nd and 4th toes. Dictated on workstation # [id number] Dict: 02/21/20 1202 Trans: 02/21/20 1208 [facility] [id number] Interpreted by: AUGIE FERRARI MD Electronically signed by: Departure Communication (Admissions) Labs look good, discussed with Dr. Martins, going to change him to minocycline based on culture and sensitivity report as the clindamycin does not cover the MRSA that was cultured.. Dr. Martins will follow up with him in the clinic. Impression Primary Impression: Osteomyelitis Qualified Codes: M86.9 - Osteomyelitis, unspecified Disposition: ADMITTED INPATIENT Condition: Stable Admissions Decision to Admit Reason: Admit from ER (General) Decision to Admit/Date: Feb 21, 2020 Time/Decision to Admit Time: 12:14 Departure-Patient Inst. Decision time for Depature: 12:59 Referrals: ELMO GRIFFITHS MD (PCP/Family) Primary Care Physician Patient Instructions: Osteomyelitis (DC) Add. Discharge Instructions: Stop the clindamycin. Start the minocycline 100 mg twice a day. Call Dr. Martins's office to make an appointment for follow-up. Return to ER for any worsening. All discharge instructions reviewed with patient and/or family. Voiced understanding. Scripts Minocycline HCl (Minocycline HCl) 100 Mg Tablet 100 MG PO BID, #20 TAB Prov: PRIMO FRANCOIS APRN 02/21/20 Copy Copies To 1: ARMEN MARTINS PETER J APRN Feb 21, 2020 11:29
[2020-02-21 11:39] LABS: BASOPHILS % (AUTO) 0 % (0-10); EOSINOPHILS # (AUTO) 0.1 10^3/uL (0.0-0.3); EOSINOPHILS % (AUTO) 3 % (0-10); HEMATOCRIT 29 % (40-54); HEMOGLOBIN 9.2 G/DL (13.3-17.7); LYMPHOCYTES % (AUTO) 24 % (12-44); MEAN CORPUSCULAR HEMOGLOBIN 27 PG (25-34); MEAN CORPUSCULAR HGB CONC 32 G/DL (32-36); MEAN CORPUSCULAR VOLUME 83 FL (80-99); MEAN PLATELET VOLUME 10.2 FL (7.4-10.4); MONOCYTES # (AUTO) 0.4 X 10^3 (0.0-1.0); MONOCYTES % (AUTO) 11 % (0-12); NEUTROPHILS # (AUTO) 2.5 X 10^3 (1.8-7.8); NEUTROPHILS % (AUTO) 61 % (42-75); PLATELET COUNT 124 10^3/uL (130-400); RED CELL DISTRIBUTION WIDTH 17.4 % (10.0-14.5)
[2020-02-21 11:49] LABS: ALBUMIN 3.5 GM/DL (3.2-4.5)
[2020-02-21 11:50] LABS: POTASSIUM 3.9 MMOL/L (3.6-5.0)
[2020-02-21 11:51] LABS: CALCIUM 8.8 MG/DL (8.5-10.1)
[2020-02-21 11:52] LABS: TOTAL PROTEIN 6.9 GM/DL (6.4-8.2)
[2020-02-21 11:54] LABS: BILIRUBIN,TOTAL 0.4 MG/DL (0.1-1.0)
--- OUTSIDE RECORDS SUMMARY | 2020-02-21 11:55 | XMS REPORT ---
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 KAHN DO endocrine; and metabolic disorders (3 sources) Other Obesity, unspecified Chronic BASHAR AUBRIE nutritional; endocrine; and metabolic disorders (1 source) Other Abnormal electrocardiogram [ECG] Episodic GIL screening [EKG] ; Translations: [Other SULLIV AN DO for abnormal blood chemistry] suspected conditions (not mental disorders or infectious disease) (10 sources) Azra-; Cardiomyopathy, unspecified 01-12-2020 Chronic ARMEN MARTINS endo-; and DO myocarditis; cardiomyopat hy (except that caused by tuberculosis or sexually transmitted disease) (13 sources) Peripheral Unspecified atherosclerosis of 01-14-2020 Chronic BASHAR AUBRIE and visceral habematolel arteries of extremities, atherosclero unspecified extremity ; sis Translations: [Chronic tota l (15 sources) occlusion of artery of the extremities] Phlebitis; Personal history of other venous 01-12-2020 Episod ic ARMEN DELFANY thrombophleb thrombosis and embolism DO itis and thromboembol ism (13 sources) Pulmonary Other secondary pulmonary 01-12-2020 Chronic BASHAR AUBRIE heart hypertension ; Translations: disease [Pulmonary hypertension, (20 sources) unspecified] Residual Sleep apnea, unspecified 01-08-2020 Chronic R ODNEY codes; HAKEEM FRANCO unclassified (29 sources) Residual Obstructive sleep apnea syndrome Chronic GIL codes; FEMI unclassified Work Phone: (2 sources) Residual Obstructive sleep apnea (adult) 01-12-2020 Chronic BASHAR AUBRIE codes; (pediatric) unclassified (20 sources) Residual Obstructive sleep apnea Chronic WILL EUN codes; (adult)(pediatric) FEMI CHAO unclassified (3 sources) Residual Dependence on other enabling 01-08-2020 Chronic RENNY codes; machines and devices GARIMA FRANCO unclassified (10 sources) Residual Family history of ischemic heart 01-14-2020 Episod ic MISAEL NORBERTO DO codes; disease and other diseases of the unclassified circulatory system ; Transl ations: (17 sources) [FAMILY HISTORY OF MALIGNAN T NEOPLASM OF ] Residual Family history of malignant 01-08-2020 Episodic MISAEL NORBERTO DO codes; neoplasm of breast unclassified (20 sources) Residual Family history of malignant 01-08-2020 Episodic MISAEL NORBERTO DO codes; neoplasm of ovary unclassified (20 sources) Residual Disorientation, unspecified Episodic CASSY codes; HAKEEM FRANCO unclassified (12 sources) Residual Personal history of noncompliance Episodic GIL codes; with medical treatment, presenting FEMI CHAO unclassified hazards to health (3 sources) Residual Patient's noncompliance with other 01-12-2020 Epis odic MISAEL NORBERTO DO codes; medical treatment and regim en unclassified (22 sources) Residual Edema, unspecified Episodic RENNY codes; GARIMA FRANCO unclassified (8 sources) Screening Personal history of nicotine 01-08-2020 Episodic CASSY and history dependence HAKEEM FRANCO of mental health and substance abuse codes (23 sources) Spondylosis; Cervicalgia ; Translations: 01-08-2020 Episodic GIL intervertebr [Dorsalgia, unspecified] FEMI Wick al disc disorders; other back problems (20 sources) Superficial Abrasion, right knee, initial Episodic GIL injury; encounter ; Translations: KAHN DO contusion [Contusion of face, scalp, and neck (10 sources) except eye(s)] Syncope Syncope and collapse Episodic MISAEL RE NO DO (6 sources) Past or Other Problems Problem Problem Date Last Documented Episodic/Chr Provider Classificati Recorded Date onic on Biliary Calculus of gallbladder without Episodic CASSY tract cholecystitis without obstruction O DGERS disease (8 sources) Fever of Fever ; Translations: [Fever, Episodic CASSY unknown unspecified] HAKEEM FRANCO origin (11 sources) Headache; Headache ; Translations: [Headache] Episodic GIL including KAHN DO migraine (12 sources) Lymphadeniti Localized enlarged lymph nodes Episodic ODILON MALONE s CONTINUOUS CRUSHER 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 (5 sources) Mycoses Pityriasis versicolor Episodic CASSY (8 sources) HAKEEM FRANCO Nonspecific Chest pain, unspecified Episodic BASH AR AUBRIE chest pain (1 source) 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 (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) use of oral Episodic PETER FRANCOIS aftercare hypoglycemic drugs (7 sources) Other senior care (current) use of opiate Episodic ANTONIO RBANDO aftercare analgesic (4 sources) Other Falls Episodic GIL connective KAHN tissue Work Phone: disease [phone] (1 source) 9 Other Personal history of other diseases Episodic MISAEL NORBERTO DO gastrointest of the digestive system inal disorders (7 sources) Other History of falling Episodic CASSY injuries and HAKEEM FRANCO conditions due to external causes (8 sources) Other Head injury, unspecified Episodic CHAD LILI injuries and KAHN DO conditions due to external causes (3 sources) Other Unspecified injury of right foot, Episodic PETER FRANCOIS injuries and initial encounter conditions due to external causes (3 sources) Other liver Nonspecific elevation of levels of Episodic BASHAR AUBRIE diseases transaminase or lactic acid (1 source) dehydrogenase [LDH] Other lower Acute respiratory distress Episodic L VERONA NORBERTO DO respiratory disease (7 sources) Other lower Hypoxemia Episodic MISAEL NORBERTO DO respiratory disease (7 sources) Other lower Shortness of breath Episodic MISAEL DELL O DO respiratory disease (7 sources) Other lower Other respiratory abnormalities Episodic GIL respiratory KAHN DO disease (3 sources) Other Pain in joint, upper arm Episodic CHAD LILI non-traumati KAHN DO c joint disorders (3 sources) Pneumonia Lobar pneumonia, unspecified Episodic ANTONIO BRANDO (except that organism MD caused by tuberculosis or sexually transmitted disease) (4 sources) Residual Other specified postprocedural Episodic ODILON AMLONE codes; states CONTINUOUS CRUSHER OPERATOR unclassified (5 sources) Viral Viral infection, unspecified Episodic CASSY infection HAKEEM FRANCO (8 sources) Procedures Date Procedure Procedure Detail Performing Cl inician Start: DETACHMENT AT [facility] Ramirez Maggy 12-23-2018 RIGHT LOWER LEG, HIGH, OPE Start: Computed JAMES HERNANDEZ N 04-05-2018 tomography of Work Phone: abdomen and pelvis with contrast Start: Computerized axial DULCE MARIA CUEVAS 04-05-2018 tomography of Work Phone: brain Start: Plain chest X-ray DULCE MARIA CUEVAS 04-05-2018 DETACHMENT AT [facility] PAINTING MD RIGHT LOWER LEG, HIGH, OPE Results Test Name Value Interpreta Reference Facilit Date tion Range y Time not yet categorized on 2020-01-15 NAME: ELMO GARCIA ~MED REC#: [id number] PEND ING ~ ~PHYSICIAN: BETTY HOUSE PT ~PT Daily Note-Current N [facility] ~Subjective ~Patient in bed pre tx, he is ([id number]) down at the foot of the bed and the felicitas se aide is having a hard time ~getting him scooted up. Patient agrees to PT for be d mobility training, has no complaints of pain. ~ ~Appearance ~Patient in bed post tx w ith nurse all, nurse aide in the room, nai ent refuses continued treatment ~due to fat igue. He had been in the chair at bedside and transferred to bed with help of nursing . ~ ~Mental Status ~Patient Orientation: No rmal For Age ~Attachments: Oxygen ~ ~Transfe rs ~SCALE: Activities may be completed wit h or without assistive devices. ~ ~7-Dzmuuiferp-dtiremd completes the act ivity by him/herself with no assistance from a helper. ~5-Set-up or Clean-up Assistance-helper sets up or cleans up; patient completes activity. [place] ~ass ists only prior to or ~ following the activi ty. ~4-Supervision or Touching Assistance-h elper provides verbal cues and/or touching/steadying and/or ~contact guar d assistance as patient completes activit y. Assistance may be provided ~ throughout the activity or intermittently. ~3-Partial/Moderate Assistance-helper d oes LESS THAN HALF the effort. [place] lifts , holds or supports~trunk or limbs, but provides less than half the effort. ~2-Substantial/Maximal Assistance-helpe r does MORE THAN HALF the effort. [place] lifts or holds trunk ~or limbs and provides more than half the effort. ~5-Aafwsflsz-prgrwm do es ALL the effort. Patient does none of the ef fort to complete the activity. ~Or, the assi stance of 2 or more helpers is required for th e patient to complete the ~ activity. ~If activity was not attempted, code reason : ~7-Patient Refused. ~9-Not Applicable-n ot attempted and the patient did not perfo rm the activity before the current ~illness, exacerbation or injury. ~10-Not Attempt ed due to Environmental Limitations-(lack of equipment, weather restraints, etc.). ~ 88-Not Attempted due to Medical Conditions or Safety Concerns. ~Roll Left Right (QC): 2 ~Jaci vasquez had to roll several times for clearing O2 lines and getting his gown arranged. He was max ~assist of 2 for scooting, cues for hand placement, patient was able to reach ab ove for regulatory compliance officer on the ~bed to help scoot up, it took several tries and bed in trendelen misael to get him in the correct ~position. ~ ~Treatments ~bed mobility ~ ~Assessment ~Current Status: Poor Progress ~patient very fatigued, refused further treatment ~ ~ PT Group Home Goals ~Group Home Goals ~PT Lo ng Term Goals Time Frame: Feb 03, 2020 ~Rol l Left Right (QC): 6 ~Sit to Lying (QC): 6 ~Lying-Sitting on Side/Bed(QC): 6 ~Sit to Stand (QC): 9 ~Chair/Gfy-ui-Rvtzm Xfer( QC): 5 ~Toilet Transfer (QC): 5 ~Car Transfer (QC): 5 ~Does the Patient Walk: No and Walkin g Goal NOT indicated ~Walk 10 feet (QC): 9 ~Wa lk 50ft with 2 Turns (QC): 9 ~Walk 150 ft (QC): 9 ~Walking 10ft on Uneven Surface: 9 ~1 Step (curb) (QC): 9 ~4 Steps (QC): 9 ~12 Isaak ps (QC): 9 ~Picking up an Object (QC): 9 ~ Wheel 50 feet with 2 turns (QC: 6 ~Type: Jessie rized ~Wheel 150 feet: 6 ~Type: Motorized ~ ~ PT Plan ~Problem List ~Problem List: Activ ity Tolerance, Functional Strength, Safety, Balance, Gait, Transfer, Bed ~Mobility, ROM ~ ~Treatment/Plan ~Treatment Plan: Contin ue Plan of Care ~Treatment Plan: Bed Mobil ity, Education, Functional Activity Farshad, Functional Strength, Safety, ~Therapeut ic Exercise, Transfers ~Treatment Duration : Feb 03, 2020 ~Frequency: 6 times per week ~Estimated Hrs Per Day: .25 hour per da y ~ ~Safety Risks/Education ~Patient Educat ion: Correct Positioning, Safety Issues ~Lana dozier Recipient: Patient ~Teaching Methods: Demonstration, Discussion ~Response to Teaching: Reinforcement Needed ~ ~Time/ GCodes ~Time In: 0959 ~Time Out: 1008 ~Total B illed Treatment Time: 9 ~Total Billed Treatme nt ~1 visit ~FA 9' ~ ~ ~ ~BETTY STRONG PT Jan 15, 2020 10:13 ~ ~ ~<Created by BETTY SOTO K PT> ~<Electronically signed by BETTY STRONG PT> 01/15/20 1013 ~ ~ NAME: ELMO GARCIA ~MED REC#: [id number] PEND ING ~ ~PHYSICIAN: MARIA A MARIE ~OT Current Status-Daily N [facility] Note ~Subjective ~Pt sleeping in bed, woke to (000 00) name 2x's. Pt stated that he has been u p in chair and moved back and ~forth into be d and refuses to participate in ADLs and/or exercises. ~ ~Mental Status/Objective ~Patient Orientation: Person, Place, Ti me, Situation ~ ~ADL-Treatment ~Therapy Cod e Descriptions/Definitions ~ ~Functional [place] Measure: ~0=Not Assessed/N A 4=Minimal Assistance ~1=Total Assistanc e 5=Supervision or Setup ~2=Maximal [place]any tance 6=Modified [place] ~3=Moderate Assistance 7=Complete IndependenceSCALE : Activities may be completed with or wit hout ~assistive devices. ~ ~1-Hvvkvvpiks-str ient completes the activity by him/herself w ith no assistance from a helper. ~5-Set-up or Clean-up Assistance-helper sets up or c leans up; patient completes activity. [place] ~assists only prior to or ~ following t he activity. ~4-Supervision or Touching Assistance-helper provides verbal cues and/or touching/steadying and/or ~contact guar d assistance as patient completes activit y. Assistance may be provided ~ throughout the activity or intermittently. ~3-Partial/Moderate Assistance-helper d oes LESS THAN HALF the effort. [place] lifts , holds or supports~trunk or limbs, but provides less than half the effort. ~2-Substantial/Maximal Assistance-helpe r does MORE THAN HALF the effort. [place] lifts or holds trunk ~or limbs and provides more than half the effort. ~2-Rxmtdfbgh-altpqo do es ALL the effort. Patient does none of the ef fort to complete the activity. ~Or, the assi stance of 2 or more helpers is required for th e patient to complete the ~ activity. ~If activity was not attempted, code reason : ~7-Patient Refused. ~9-Not Applicable-n ot attempted and the patient did not perfo rm the activity before the current ~illness, exacerbation or injury. ~10-Not Attempt ed due to Environmental Limitations-(lack of equipment, weather restraints, etc.). ~ 88-Not Attempted due to Medical Conditions or Safety Concerns. ~ ~Other Treatment ~Pt did ag erma to scoot up in bed. With feet elevated past 90*, pt able to pull self using HOB. Pt ~declined any further treatment. After session, pt lying in bed with call light/phone in reach. All~needs met in room. ~ ~OT Short Term Goals ~Short Term Goal s ~Time Frame: Jan 19, 2020 ~Oral hygiene : 5 ~Toileting hygiene: 3 ~ ~OT Group Home G oals ~Pulp Mixer Goals ~Time Frame: Jan 25 020 ~Eating (QC): 6 ~Oral Hygiene (QC): 6 ~Toileting Hygiene (QC): 4 ~Shower/Bath e Self (QC): 3 ~Upper Body Dressing (QC): 5 ~L ower Body Dressing (QC): 3 ~On/Off Footwear (QC): 2 ~Additional Goals: 1-Demonstrate ADL Tasks, 2-Verbalize Understanding, 3-ImproveStrength/Farshad ~1=Demonstrate adherence to instructed precautions dur ing ADL tasks. ~2=Patient will verbalize/demonstrate understanding of assistive devices/modifications for ADL . ~3=Patient will improve strength/tolera nce for activity to enable patient to perfo rm ADL's. ~ ~OT Education/Plan ~Problem List/Assessment ~Assessment: Decreased Activ Tolerance, Decreased UE Strength, Impai red Self-Care Skills ~Pt would benefit from skilled OT to increase his independence in basic self care to allow him to ~safely return to his home at [place] ~ ~Discha rge Recommendations ~Plan/Recommendations: Continue POC (possible discharge today to SNF) ~ ~Treatment Plan/Plan of Care ~Benedict patel would benefit from OT for education, treatment and training to promote independence in ~ADL's, mobility, safet y and/or upper extremity function for ADL 's. ~Plan of Care: ADL Retraining, Function al Mobility, UE Funct Exercise/Act, UE Priya romus Re-Ed/Coord ~Treatment Duration: Dec ~Frequency: 5 times per week ~Estimated Hrs Per Day: .5 hour per day ~Agreement: Darrin miller ~Rehab Potential: Fair ~ ~Time/GCodes ~ Start Time: 10:29 ~Stop Time: 10:37 ~Total Ti me Billed (hr/min): 8 ~Billed Treatment Ti me ~1 visit-EX 1 (8 min) refusal for any more treatment ~ ~ ~ ~MARIA A KEENE Dec 312019 11:24 ~ ~ ~<Created by MARIA A VYAS> ~<Electronically signed by MARIA A VYAS> 01/15/20 1127 ~ ~ NAME: PAULYAYAELMO ~MED REC#: [id number] PEND ING ~ ~PHYSICIAN: IVORY TOURE ~Subjective N [facility] ~Date Seen by Provider: Jan 15, 2020 ~Time (91737) Seen by Provider: 08:55 ~Subjective/Events-last exam ~Patient i n bed, no new complaint. Denies any chest pain or increased dyspnea. ~ ~Objective-Cardiol ogy ~Exam ~Last Set of Vital Signs ~ ~Vital Signs ~ ~ ~ 01/15/20 01/15/20 ~ ~ 05:47 08:00 ~ ~Temp 37.0 ~ ~Pulse 68 ~ ~Resp 24 ~ ~B/P (MAP ) 116/74 (88) ~ ~Pulse Ox 93 ~ ~O2 Delive ry NIV CPAP ~ ~O2 Flow Rate 5.00 ~ ~Capillary Refill : Less Than 3 SecondsGreater Than 3 Sec onds ~I O ~ ~ ~ ~Intake and Output ~ ~ ~ ~ 00:00 ~ ~Intake Total 4637.5 ml ~ ~Outp ut Total 2500 ml ~ ~Balance 2137.5 ml ~ ~ ~ ~Intake Oral 2120 ml ~ ~IV Total 2517.5 ml ~ ~Output Urine Total 2500 ml ~ ~# Voids 1 ~ ~ ~General: Alert, Oriented X3, Cooperati ve ~HEENT: Atraumatic, PERRLA ~Neck: Suppl e, No JVD, No Thyromegaly ~Lungs: Clear to Auscultation, Normal Air Movement ~Hear t: Regular Rate, Normal S1, Normal S2, No Murmurs ~Abdomen: Normal Bowel Sounds, Soft, No Tenderness, No Hepatosplenomegaly, N o Masses ~Extremities: No Cyanosis, Other (trace edema BLE) ~Skin: No Rashes ~Priya ro: Normal Speech, Cranial Nerves 3-12 NL ~Psych/Mental Status: Mental Status NL, Mood NL ~ ~Results ~Lab ~Laboratory Tests ~ 05:20 ~ ~ ~ ~ ~A/P-Cardiology ~Admissio n Diagnosis ~PAD ~CAD ~HTN ~HLP ~ ~Assessment/Plan ~Peripheral arterial disease, history of right BKA, had progressive wound that resulted in the ~amputation done in November 2018, followed by BKA. Now having nonhealing wounds to LL E at anterior [place] ~and toes. Underwent toe amputation yesterday morning. Periphera l angiogram done yesterday revealing ~sev ere multisegment stenosis of the left SFA, multiple balloon angioplasty then deplo yment of Supera~6.5 x 100 in the proximal SFA . The lesions at the mid and distal SFA respo nded to balloon ~angioplasty with mild recoi ling. Total occlusion of the left anterior ti bial artery, patent peroneal~and posterior t ibial, collateral filling the distal tibial. M ild to moderate disease on the right ~leg. Atherosclerotic plaques in the abdomina l aorta and bifurcation with heavily tort uous iliac ~arteries. Maximize medical thera py. Continue to monitor, will consider intervention on the anterior~tibial art kristen as a last resort. Continue to apply nitro patch to LLE ~ ~Acute on chronic renal insufficiency, continue to monitor christine l function. ~ ~Coronary artery disease, h istory of multiple interventions, total of 8 s tents, had bypass surgery ~using single vessel after failed multiple attempts for interventi on done at [facility] ~in 2016 . 2D echo done October 2019 revealed normal LV size and normal PA pressure, followed by ~Kris ~ ~Hypertension, continue on cur rent medications and continue to monitor. ~ ~Hyperlipidemia, intolerant to multiple statin, continue to monitor lipids ~ ~C OPD, obstructive sleep apnea, maintained on C Pap, persistent dyspnea ~ ~Pulmonary hyperte nsion. ~ ~Diabetes mellitus, followed and canelo ged by primary care physician ~ ~Obesity, educ ated on weight loss ~ ~Carotid stenosis, tot ally occluded left ICA, less than 40 percent on the right side. Followed at ~primary ca re physician ~ ~Vertigo, dizziness, chroni c. ~ ~Medical noncompliance. ~ ~Patient was seen and evaluated with Ivory, karthik concepcion performed, management plan was discusse d, ~agree with the current scribed note, I made few changes to the note using Italic fo nt ~Patient is laying down in bed, comfort able, no new complaint. Okay for discharge fr om cardiology ~standpoint and follow up as an outpatient ~ ~Clinical Quality Measures ~DVT/VTE Risk/Contraindication: ~Risk F actor Score Per Nursin ~ ~ ~ ~IVORY HAWLEY Jan 15, 2020 11:09 am ~BARBIE ALFRED MD Jan 14 0 1:46 pm ~ ~ ~<Created by IVORY HUNTLEY> ~<Electronically si gned by BARBIE ALFRED MD> 01/15/20 1346 ~ ~ ~<Electronically signed by BARBIE MEEHAN MD> 01/15/20 1346 laboratory on 2020-01-15 Anion gap 11 mmol/L Negative 5-14 PENDING [Moles/Vol] mmol/L [facility] 020 [facility] 01:20-0 ([id number]) 400 Calcium [Mass/Vol] 8.4 mg/dL Low 8.5-10.1 PENDING 06-1 5-2 mg/dL [facility] 020 [facility] 01:20-0 ([id number]) 400 Chloride [Moles/Vol] 108 mmol/L High 98-107 PENDING 0 6-15-2 mmol/L [facility] 020 [facility] 01:20-0 ([id number]) 400 CO2 [Moles/Vol] 20 mmol/L Low 21-32 PENDING 06-15-2 mmol/L [facility] 020 [facility] 01:20-0 ([id number]) 400 Creatinine 1.59 mg/dL High 0.60-1.30 PENDING 06-15-2 [Mass/Vol] mg/dL [facility] 020 [facility] 01:20-0 ([id number]) 400 Creatinine and 44 PENDING 06-15-2 Glomerular LOCATIO 020 filtration N [facility] 01:20-0 rate.predicted panel ([id number]) 400 - Serum, Plasma or Blood Glucose [Mass/Vol] 54 mg/dL Critically 70-105 PENDING 06- 15-2 low mg/dL [facility] 020 [facility] 01:20-0 ([id number]) 400 Glucose [Mass/Vol] 83 mg/dL Negative 70-110 PENDING 06-1 5-2 mg/dL [facility] 020 [facility] 01:35-0 ([id number]) 400 Glucose [Mass/Vol] 186 mg/dL High 70-110 PENDING 06-1 5-2 mg/dL LOCATIO 020 [facility] 06:53-0 ([id number]) 400 INR Coag (Platelet 1.2 Negative 0.8-1.4 PENDING 06-1 5-2 poor plasma or LOCATIO 020 blood) [Relative N [facility] 01:20-0 time] ([id number]) 400 Potassium 3.9 mmol/L Negative 3.6-5.0 PENDING 06-15-2 [Moles/Vol] mmol/L [facility] 020 [facility] 01:20-0 ([id number]) 400 PT Coag (PPP) [Time] 15.7 s High 12.2-14.7 PENDING 06 -15-2 s [facility]ATIO 020 N [facility] 01:20-0 ([id number]) 400 Sodium [Moles/Vol] 139 mmol/L Negative 135-145 PENDING mmol/L LOCATIO 020 [facility] 01:20-0 ([id number]) 400 Urea nitrogen 29 mg/dL High 7-18 mg/dL PENDING [Mass/Vol] LOCATIO 020 [facility] 01:20-0 ([id number]) 400 Urea 18 mg/mg PENDING nitrogen/Creatinine LOCATIO 020 [Mass ratio] [facility] 01:20-0 ([id number]) 400 not yet categorized on 2020-01-14 NAME: ELMO GARCIA Maggy ~MED REC#: [id number] PEND ING ~ ~PHYSICIAN: ANTOINETTE GRAVES MD ~Subjective ~HPI/CC On [facility] Admission ~Date Seen by Provider: Jan 13, ([id number]) 2019 ~Time Seen by Provider: 09:40 ~Subjective/Events-last exam ~He report s no complaints or concerns today. He denies any trouble breathing or cough. He denies ~ any fevers or chills. He denies any pain complaints. He denies any nausea or vom iting. He says he~is eating and drinking well. ~ ~Objective ~Exam ~Vital Signs ~ ~Vital Signs ~ ~ ~ Date Time Temp Pulse Resp B/P (MA P) Pulse Ox O2 Delivery O2 Flow Rate FiO2 ~ ~01/14/20 06:00 36.6 67 16 135/82 (99) 9 7 NIV CPAP 3.00 ~ ~Capillary Refill : Less Th an 3 SecondsGreater Than 3 Seconds ~General Appearance: No Apparent Distress, Chron ically ill, Obese ~Respiratory: Lungs Clear, N ormal Breath Sounds, No Respiratory Distress ~Cardiovascular: Regular Rate, Rhythm, No Murmur ~Gastrointestinal: Normal Bowel Sounds, Non Tender, Soft ~Extremity: No n Tender, Pedal Edema, Other (Right BKA) ~Neurologic/Psychiatric: Alert, Oriente d x3, No Motor/Sensory Deficits, Normal Mood/ Affect ~Skin: Normal Color, Warm/Dry ~ ~Results/Procedures ~Lab ~Patient resul lamin labs reviewed. ~ ~Assessment/Plan ~Asse ssment and Plan ~Assess Plan/Chief Complaint ~Osteomyelitis ~ Continue vancomycin ~ ~Debility ~ PT/OT ~ ~Type II diabetes mellitus ~ Continue insulin ~ ~CKD ~PAD ~Chronic HFpEF ~ Continue home meds ~ ~Chronic respiratory failure with hypox ia ~TREE ~ Continue BiPAP and oxygen supplementation ~ ~[place] of [place] isaak nosis ~ Resume Coumadin ~ Lovenox bridge ~ ~Clinical Quality Measures ~DVT/VTE Risk/Contraindication: ~Risk Factor Sco re Per Nursin ~ ~ ~ ~ANTOINETTE TOMLIN MD Jan 14, 2020 11:37 ~ ~ ~<Created by ANTOINETTE SOARES MD> ~<Electronically signed by ANTOINETTE TOMLIN MD> 01/14/20 1137 ~ ~ NAME: ELMO GARCIA ~MED REC#: [id number] PEND ING ~ ~PHYSICIAN: ARMEN SYED DO ~Subjective ~Time Seen by a N MARY Provider: 11:42 ~Subjective/Events-last exam (0000 0) ~Pt seen and examined. ~Review of Syste ms ~General: Malaise ~Pulmonary: No Dyspne a, No Cough ~Cardiovascular: No: Chest Pain, Palpitations ~ ~Objective ~Exam ~ ~Chey l Signs ~ ~ ~ Date Time Temp Pulse Resp B /P (MAP) Pulse Ox O2 Delivery O2 Flow Rate FiO2 ~ ~01/14/20 06:00 36.6 67 16 135/82 (99) 97 NIV CPAP 3.00 ~ ~01/13/20 21:15 93 NIV C PAP 5.00 ~ ~01/13/20 19:20 NIV CPAP 5.00 ~ ~01/13/20 18:00 36.7 71 22 113/55 (74) 9 3 NIV CPAP ~ ~01/13/20 14:30 92 NIV CPAP 5.00 ~ ~ ~ ~ ~I O ~ ~ 01/14/20 ~ ~ 07:00 ~ ~Intake Total 4200 ml ~ ~Output Total 2200 ml ~ ~Lagrange nce 2000 ml ~ ~Capillary Refill : Less Than 3 SecondsGreater Than 3 Seconds ~General Appearance: No Apparent Distress, Chron ically ill, Obese ~Respiratory: Lungs Clear, N ormal Breath Sounds, No Respiratory Distress ~Cardiovascular: Regular Rate, Rhythm, No Murmur ~Extremity: Other (Right BKA, Le ft foot area of 3rd toe amputation looks g ood, eschar from cautery ~no necrotic tissue seen) ~ ~Results ~Lab ~Laboratory Tests ~01/12 17:14: Glucometer 210H ~01/13/20 20:08: Glucometer 233H ~01/14/20 06:25: Glucome ter 207H ~01/14/20 09:00: ~Prothrombin Time 16.4H, INR Comment 1.3 ~01/14/20 09:33: Glucome ter 177H ~ ~Assessment/Plan ~Assessment/Stevie n ~Assessment/Plan ~S/P Left 3rd toe Ampu tation ~ ~Continue daily iodophor packing and good wound care. ~ ~Clinical Quality Measure s ~DVT/VTE Risk/Contraindication: ~Risk F actor Score Per Nursin ~ ~ ~ ~ARMEN MARTINS DO Jan 14, 2020 13:16 ~ ~ ~<Created by ARMEN MARTINS DO> ~<Electronically signed by Shreya MARTINS DO> 01/14/20 1316 ~ ~ laboratory on 2020-01-14 Glucose [Mass/Vol] 207 mg/dL High 70-110 PENDING 06-1 4-2 mg/dL [facility] 0[facility] 02:25-0 ([id number]) 400 Glucose [Mass/Vol] 177 mg/dL High 70-110 PENDING 06-1 4-2 mg/dL [facility] 020 [facility] 05:33-0 ([id number]) 400 Glucose [Mass/Vol] 116 mg/dL High 70-110 PENDING 06-1 4-2 mg/dL [facility] 0[facility] 11:22-0 ([id number]) 400 Glucose [Mass/Vol] 100 mg/dL Negative 70-110 PENDING 06-1 4-2 mg/dL [facility] 020 [facility] 15:53-0 ([id number]) 400 INR Coag (Platelet 1.3 Negative 0.8-1.4 PENDING 06-1 4-2 poor plasma or LOCATIO 020 blood) [Relative N [facility] 05:00-0 time] ([id number]) 400 PT Coag (PPP) [Time] 16.4 s High 12.2-14.7 PENDING -14-2 s [facility]IO 020 [facility] 05:00-0 ([id number]) 400 not yet categorized on 2020-01-13 NAME: ELMO GARCIA ~MED REC#: [id number] PEND ING ~ ~PHYSICIAN: ARMEN SYED DO ~Subjective ~Time Seen by a Jeyson HERNANDEZ Provider: 12:06 ~Subjective/Events-last exam (0000 0) ~Pt seen and examined, eating lunch wit hout difficulty. States he only has minimal pain at toe. ~Review of Systems ~General: No Chills, No Night Sweats ~Pulmonary: No Dyspnea, No Cough ~Cardiovascular: No: Chest Pain, Palpitations ~ ~Objective ~Exam ~ ~Vital Signs ~ ~ ~ Date Time Temp Pulse Resp B/P (MAP) Pulse Ox O2 Delivery O2 Flow Rate FiO2 ~ ~01/13/20 07:06 NIV CPAP 5.00 ~ ~01/13/20 06:00 36.1 66 20 154/74 (100) 94 Nasal Cannula 3.00 ~ ~01/12/20 19:15 NIV CPAP 4.00 ~ ~01/12/20 19:13 90 NIV CPAP 5.00 ~ ~01/12/20 18:14 36.0 69 20 122/70 (87) 9 4 Nasal Cannula 3.00 ~ ~01/12/20 15:06 90 NIV CPAP 5.00 ~ ~ ~ ~ ~I O ~ ~ 01/13/20 ~ ~ 07:00 ~ ~Intake Total 1632 ml ~ ~Output Total 500 ml ~ ~Balance 1132 ml ~ ~Capillary Refi ll : Less Than 3 SecondsLess Than 3 Seconds ~General Appearance: No Apparent Distre ss, Obese ~Respiratory: Lungs Clear, Normal Breath Sounds, No Accessory Muscle Use ~Cardiovascular: Regular Rate, Rhythm, No Murmur ~Extremity: Other (Right BKA, Le ft leg looks good, toe with packing and healin g nicely) ~ ~Results ~Lab ~Laboratory Andria ts ~01/12/20 15:30: Glucometer 125H ~ 0 19:35: Glucometer 162H ~01/13/20 06:10: Glucometer 77 ~01/13/20 10:02: Glucomete r 121H ~ ~Assessment/Plan ~Assessment/Plan ~Assessment/Plan ~S/P Left 3rd toe Ampu tation ~ ~Continue daily iodophor packing and good wound care. ~ ~Clinical Quality Measure s ~DVT/VTE Risk/Contraindication: ~Risk F actor Score Per Nursin ~ ~ ~ ~ARMEN MARTINS DO Jan 13, 2020 13:42 ~ ~ ~<Created by ELY MARTINS DO> ~<Electronically signed by Shreya MARTINS DO> 01/13/20 1342 ~ ~ laboratory on 2020-01-13 Glucose [Mass/Vol] 77 mg/dL Negative 70-110 PENDING 06-1 3-2 mg/dL LOCATIO 020 N S 02:10-0 ([id number]) 400 Glucose [Mass/Vol] 121 mg/dL High 70-110 PENDING 06-1 3-2 mg/dL [facility] 0[facility] 06:02-0 ([id number]) 400 Glucose [Mass/Vol] 210 mg/dL High 70-110 PENDING 06-1 3-2 mg/dL [facility] 020 [facility] 13:14-0 ([id number]) 400 Glucose [Mass/Vol] 233 mg/dL High 70-110 PENDING 06-1 3-2 mg/dL LOCATIO 020 N S 16:08-0 ([id number]) 400 laboratory on 2020-01-12 Anion gap 11 mmol/L Negative 5-14 PENDING 06-12-2 [Moles/Vol] mmol/L [facility] 020 [facility] 01:43-0 ([id number]) 400 Basophils (Bld) 0.0 10*3/uL Negative 0.0-0.1 PENDING -12 -2 [#/Vol] 10*3/uL [facility] 020 [facility] 01:43-0 ([id number]) 400 Basophils/100 WBC 0 % Negative 0-10 % PENDING 06-12 -2 (Bld) [facility] 0[facility] 01:43-0 ([id number]) 400 Calcium [Mass/Vol] 8.4 mg/dL Low 8.5-10.1 PENDING 06-1 2-2 mg/dL [facility] 020 [facility] 01:43-0 ([id number]) 400 Chloride [Moles/Vol] 104 mmol/L Negative 98-107 PENDING 0 6-12-2 mmol/L [facility] 020 [facility] 01:43-0 ([id number]) 400 CO2 [Moles/Vol] 21 mmol/L Negative 21-32 PENDING 06-12-2 mmol/L [facility] 020 [facility] 01:43-0 (77014) 400 Creatinine 1.75 mg/dL High 0.60-1.30 PENDING 01-11-2 [Mass/Vol] mg/dL LOCATIO 020 [facility] 01:43-0 ([id number]) 400 Creatinine and 39 PENDING 01-11-2 Glomerular LOCATIO 020 filtration N [facility] 01:43-0 rate.predicted panel ([id number]) 400 - Serum, Plasma or Blood Eosinophils (Bld) 0.1 10*3/uL Negative 0.0-0.3 PENDING 2 [#/Vol] 10*3/uL LOCATIO 020 N [facility] 01:43-0 ([id number]) 400 Eosinophils/100 WBC 2 % Negative 0-10 % PENDING 07-03 (Bld) LOCATIO 020 [facility] 01:43-0 ([id number]) 400 Erythrocyte 15.0 % High 10.0-14.5 PENDING 2 distribution width % LOCATIO 020 (RBC) [Ratio] N [facility] 01:43-0 ([id number]) 400 Glucose [Mass/Vol] 125 mg/dL High 70-105 PENDING 06-1 2-2 mg/dL LOCATIO 020 [facility] 01:43-0 ([id number]) 400 Glucose [Mass/Vol] 144 mg/dL High 70-110 PENDING 06-1 2-2 mg/dL LOCATIO 020 [facility] 01:52-0 ([id number]) 400 Glucose [Mass/Vol] 197 mg/dL High 70-110 PENDING 06-1 2-2 mg/dL LOCATIO 020 [facility] 06:00-0 ([id number]) 400 Glucose [Mass/Vol] 125 mg/dL High 70-110 PENDING 06-1 2-2 mg/dL LOCATIO 020 [facility] 11:30-0 ([id number]) 400 Glucose [Mass/Vol] 162 mg/dL High 70-110 PENDING 06-1 2-2 mg/dL LOCATIO 020 [facility] 15:35-0 ([id number]) 400 Hematocrit (Bld) 29 % Low 40-54 % PENDING [Volume fraction] LOCATIO 020 [facility] 01:43-0 (23445) 400 Hemoglobin (Bld) 9.3 g/dL Low 13.3-17.7 PENDING [Mass/Vol] g/dL LOCATIO 020 [facility] 01:43-0 ([id number]) 400 INR Coag (Platelet 1.6 High 0.8-1.4 PENDING 12-31 2-2 poor plasma or LOCATIO 020 blood) [Relative N [facility] 01:43-0 time] ([id number]) 400 Lymphocytes (Bld) 0.9 10*3/uL Low 1.0-4.0 PENDING 07-03 [#/Vol] 10*[facility] 01:43-0 (75651) 400 Lymphocytes/100 WBC 13 % Negative 12-44 % PENDING 2 (Bld) LOCATIO 020 [facility] :43-0 (92809) 400 MCH (RBC) [Entitic 28 pg Negative 25-34 pg PENDING 12-31 2-2 mass] LOCATIO 020 [facility] 01:43-0 (31782) 400 MCHC (RBC) 33 g/dL Negative 32-36 g/dL PENDING [Mass/Vol] LOCATIO 020 [facility] 01:43-0 (35710) 400 MCV (RBC) [Entitic 85 Negative 80-99 PENDING 12-31-2 vol] [foz_us] LOCATIO 020 [facility] 01:43-0 ([id number]) 400 Monocytes (Bld) 0.7 10*3/uL Negative 0.0-1.0 PENDING 01-11 [#/Vol] 10*3 LOCATIO 020 [facility] 01:43-0 (75557) 400 Monocytes/100 WBC 10 % Negative 0-12 % PENDING 01-11 (Bld) LOCATIO 020 [facility] 01:43-0 (33040) 400 Neutrophils (Bld) 4.9 10*3/uL Negative 1.8-7.8 PENDING 07-03 [#/Vol] 10*3 LOCATIO 020 [facility] 01:43-0 (73072) 400 Neutrophils/100 WBC 74 % Negative 42-75 % PENDING 2 (Bld) LOCATIO 020 [facility] 01:43-0 ([id number]) 400 Platelet mean volume 10.4 Negative 7.4-10.4 PENDING (Bld) [Entitic vol] [foz_us] LOCATIO 020 [facility] 01:43-0 ([id number]) 400 Platelets (Bld) 175 10*3/uL Negative 130-400 PENDING 01-11 [#/Vol] 10*3/uL [facility]IO 020 [facility] 01:43-0 (47448) 400 Potassium 4.0 mmol/L Negative 3.6-5.0 PENDING [Moles/Vol] mmol/L [facility]IO 020 [facility] 01:43-0 (61708) 400 PT Coag (PPP) [Time] 19.7 s High 12.2-14.7 PENDING s LOCATIO 020 [facility] 01:43-0 (32010) 400 RBC (Bld) [#/Vol] 3.36 10*6/uL Low 4.35-5.85 PENDING 10*6/uL LOC[facility]IO 020 [facility] 01:43-0 (42522) 400 Sodium [Moles/Vol] 136 mmol/L Negative 135-145 PENDING 07-03 mmol/L LOCATIO 020 [facility] 01:43-0 (78484) 400 Urea nitrogen 36 mg/dL High 7-18 mg/dL PENDING [Mass/Vol] LOC[facility]IO 020 [facility] 01:43-0 ([id number]) 400 Urea 21 mg/mg PENDING nitrogen/Creatinine LOCATIO 020 [Mass ratio] N [facility] 01:43-0 (68510) 400 WBC (Bld) [#/Vol] 6.5 10*3/uL Negative 4.3-11.0 PENDING 07-03 10*3/uL [facility]IO 020 [facility] 01:43-0 ([id number]) 400 not yet categorized on 2020-01-11 NAME: ELMO GARCIA ~MED REC#: [id number] PEND ING ~ ~PHYSICIAN: IVORY TOURE ~Subjective N [facility] ~Date Seen by Provider: Jan 11, 2020 ~Time ([id number]) Seen by Provider: 08:24 ~Subjective/Events-last exam ~Patient i s in bed, no new complaints. Denies any ches t pain or leg pain. ~Review of Systems ~Genera l: No Chills, No Night Sweats, No Fatigue, No Malaise, No Appetite, No Other ~HEENT: No Head Aches, No Visual Changes, No Eye P ain, No Ear Pain, No Dysphasia, No Sinus ~Congestion, No Post Nasal Drip, No Sor e Throat, No Other ~Pulmonary: No Dyspnea , No Cough, No Pleuritic Chest Pain, No Othe r ~Cardiovascular: No: Chest Pain, Palpitations, Orthopnea, Paroxysmal Noc . Dyspnea, Edema, Lt ~Headedness, Other ~ ~Objective-Cardiology ~Exam ~Last Set o f Vital Signs ~ ~Vital Signs ~ ~ ~ 01/07/20 01/11/20 ~ ~ 18:48 05:43 ~ ~Temp 36.6 ~ ~Pulse 77 ~ ~Resp 18 ~ ~B/P (MAP) 147/79 (101) ~ ~Pulse Ox 92 ~ ~O2 Delivery NIV CPAP ~ ~O2 Flow Rate 4.00 ~ ~FiO2 36 ~ ~Capillary Refill : Less Than 3 Seconds ~I O ~ ~ ~ ~Intak e and Output ~ ~ 01/11/20 ~ ~ 00:00 ~ ~Intake Total 1060 ml ~ ~Output Total 1575 ml ~ ~Lagrange nce -515 ml ~ ~ ~ ~Intake Oral 1060 ml ~ ~O utput Urine Total 1575 ml ~ ~ ~General: Alert , Oriented X3, Cooperative ~HEENT: Atraum atic, PERRLA ~Neck: Supple ~Lungs: Clear to Auscultation, Normal Air Movement ~Hear t: Regular Rate, Normal S1, Normal S2 ~Abd omen: Soft, No Tenderness ~Extremities: Other (trace edema BLE) ~Neuro: Normal Speech , Cranial Nerves 3-12 NL ~Psych/Mental St atus: Mental Status NL, Mood NL ~ ~Results ~L ab ~Laboratory Tests ~01/11/20 06:25 ~ ~ ~ 06:40 ~ ~ ~ ~ ~A/P-Cardiology ~Admissio n Diagnosis ~PAD ~LLE nonhealing wounds ~ CAD ~HTN ~ ~Assessment/Plan ~Peripheral art erial disease, history of right BKA, had progressive wound that resulted in the ~amputation done in November 2018, followed by BKA. Now having nonhealing wounds to LL E at anterior fel[place] ~and toes. Underwent toe amputation yesterday morning. Periphera l angiogram done yesterday revealing ~sev ere multisegment stenosis of the left SFA, multiple balloon angioplasty then deplo yment of Supera~6.5 x 100 in the proximal SFA . The lesions at the mid and distal SFA respo nded to balloon ~angioplasty with mild recoi ling. Total occlusion of the left anterior ti bial artery, patent peroneal~and posterior t ibial, collateral filling the distal tibial. M ild to moderate disease on the right ~leg. Atherosclerotic plaques in the abdomina l aorta and bifurcation with heavily tort uous iliac ~arteries. Maximize medical thera py. Continue to monitor, will consider intervention on the anterior~tibial art kristen as a last resort. I will apply nitro patch to LLE ~ ~Acute on chronic renal insuffici ency, continue to monitor renal function. ~ ~Coronary artery disease, history of mu ltiple interventions, total of 8 stents, had b ypass surgery ~using single vessel after fail ed multiple attempts for intervention done at [facility] ~in 2016. 2D ech o done October 2019 revealed normal LV size and normal PA pressure, followed by Dr. Bedoya ~ ~Hypertension, continue on current medications and continue to monitor. ~ ~Hyperlipidemia, intolerant to multiple statin, continue to monitor lipids ~ ~C OPD, obstructive sleep apnea, maintained on C Pap, persistent dyspnea ~ ~Pulmonary hyperte nsion. ~ ~Diabetes mellitus, followed and canelo ged by primary care physician ~ ~Obesity, educ ated on weight loss ~ ~Carotid stenosis, tot ally occluded left ICA, less than 40 percent on the right side. Followed at ~primary ca re physician ~ ~Vertigo, dizziness, chroni c. ~ ~Medical noncompliance. ~ ~Patient was seen and evaluated with karthik Gutierrez performed, management plan was discusse d, ~agree with the current scribed note, I made few changes to the note using Italic fo nt ~Patient was seen at bedside, groin is healing well, no new complaint, stentin g to the left SFA with ~excellent results., Occluded anterior tibial artery distall y, collateral filling. We will apply ~nitroglycerin patch and evaluate his response. Continue with current treatme nt ~ ~Clinical Quality Measures ~DVT/VTE Risk/Contraindication: ~Risk Factor Sco re Per Nursin ~RFS Level Per Nursing on Ad idalia: 4+=Very High ~ ~ ~ ~BAUDILIO HAWLEY Jan 11, 2020 8:27 am ~BARBIE ALFRED MD Jan 11, 2020 8:54 am ~ ~ ~<Created by IVORY HUNTLEY> ~<Electronically signed by BARBIE MEEHAN MD> 01/11/20853 ~ ~ ~<Electronically sign ed by BARBIE ALFRED MD> 01/11/20853 laboratory on 2020-01-11 Anion gap 13 mmol/L Negative 5-14 PENDING 01-10-2 [Moles/Vol] mmol/L [facility] 0[facility] 02:40-0 ([id number]) 400 Calcium [Mass/Vol] 8.5 mg/dL Negative 8.5-10.1 PENDING -1 1-2 mg/dL [facility] 020 [facility] 02:40-0 (18625) 400 Chloride [Moles/Vol] 104 mmol/L Negative 98-107 PENDING 0 6-11-2 mmol/L LOC[facility]IO 020 [facility] 02:40-0 (30946) 400 CO2 [Moles/Vol] 20 mmol/L Low 21-32 PENDING -11-2 mmol/L [facility]IO 020 [facility] 02:40-0 (72596) 400 Creatinine 1.91 mg/dL High 0.60-1.30 PENDING 01-10-2 [Mass/Vol] mg/dL LOC[facility]IO 020 [facility] 02:40-0 (64816) 400 Creatinine and 35 PENDING 01-10-2 Glomerular LOCATIO 020 filtration N [facility] 02:40-0 rate.predicted panel (00681) 400 - Serum, Plasma or Blood Erythrocyte 14.9 % High 10.0-14.5 PENDING distribution width % LOCATIO 020 (RBC) [Ratio] [facility] 02:25-0 (12712) 400 Glucose [Mass/Vol] 225 mg/dL High 70-110 PENDING 06-1 1-2 mg/dL LOC[facility]IO 020 [facility] 01:22-0 ([id number]) 400 Glucose [Mass/Vol] 201 mg/dL High 70-105 PENDING 06-1 1-2 mg/dL [address] 02:40-0 (98863) 400 Glucose [Mass/Vol] 223 mg/dL High 70-110 PENDING 06-1 1-2 mg/dL [address] 05:19-0 (71530) 400 Glucose [Mass/Vol] 228 mg/dL High 70-110 PENDING 06-1 1-2 mg/dL [address] 10:35-0 (36516) 400 Glucose [Mass/Vol] 156 mg/dL High 70-110 PENDING 06-1 1-2 mg/dL [address] 16:58-0 (49505) 400 Hematocrit (Bld) 29 % Low 40-54 % PENDING [Volume fraction] [address] 02:25-0 (85784) 400 Hemoglobin (Bld) 9.6 g/dL Low 13.3-17.7 PENDING [Mass/Vol] g/dL [address] 02:25-0 (92376) 400 MCH (RBC) [Entitic 28 pg Negative 25-34 pg PENDING - 1-2 mass] [address] 02:25-0 (42417) 400 MCHC (RBC) 33 g/dL Negative 32-36 g/dL PENDING 2 [Mass/Vol] [address] 02:25-0 (79561) 400 MCV (RBC) [Entitic 86 Negative 80-99 PENDING - 1-2 vol] [foz_us] [address] 02:25-0 (05355) 400 Platelet mean volume 10.7 High 7.4-10.4 PENDING (Bld) [Entitic vol] [foz_us] [address] 02:25-0 (71786) 400 Platelets (Bld) 164 10*3/uL Negative 130-400 PENDING 01-10 [#/Vol] 10*3/uL [address] 02:25-0 (88983) 400 Potassium 4.2 mmol/L Negative 3.6-5.0 PENDING [Moles/Vol] mmol/L [facility]IO 020 [facility] 02:40-0 (77157) 400 RBC (Bld) [#/Vol] 3.38 10*6/uL Low 4.35-5.85 PENDING 10*6/uL LOC[facility]IO 020 [facility] 02:25-0 (44822) 400 Sodium [Moles/Vol] 137 mmol/L Negative 135-145 PENDING 06-03 mmol/L LOC[facility]IO 020 [facility] 02:40-0 (39494) 400 Urea nitrogen 36 mg/dL High 7-18 mg/dL PENDING [Mass/Vol] LOCATIO 020 [facility] 02:40-0 (50776) 400 Urea 19 mg/mg PENDING nitrogen/Creatinine LOCATIO 020 [Mass ratio] N [facility] 02:40-0 (02506) 400 Vancomycin trough 9.2 ug/mL Low 10.0-20.0 PENDING 01-10 [Mass/Vol] ug/mL LOC[facility]IO 020 [facility] 11:05-0 (80405) 400 WBC (Bld) [#/Vol] 7.1 10*3/uL Negative 4.3-11.0 PENDING 06-03 10*3/uL LOC[facility]IO 020 [facility] 02:25-0 (47237) 400 not yet categorized on 2020-01-10 NAME: ELMO GARCIA ~MED REC#: [id number] PEND ING ~ ~PHYSICIAN: ARMEN SYED DO ~Post-Operative Progess Note N [facility] ~Surgeon (s)/Concrete Mason (s) ~Surgeon ~ARMEN ([id number]) LAKSHMI DO ~Concrete Mason: none ~ ~Pre-Opera tive Diagnosis ~Left 3rd toe gangrene with l eft foot cellulitis. Site marked ~ ~Post-Operative Diagnosis ~ ~same ~ ~Procedure Operative Findings ~Date of Procedure ~01/10/20 ~Procedure Performed/Findings ~Left 3rd toe amputa tion ~Left ankle block ~Anesthesia Type ~IV sedation by [employer] ~ ~Estimated Blood Los s ~Estimated blood loss (mL): scant ~ ~Specimens/Packing ~Specimens Removed ~ left 3rd toe ~ ~ ~ ~ARMEN MARTINS DO Jan 10, 2020 12:37 ~ ~ ~<Created by ARMEN MARTINS DO > ~<Electronically signed by ARMEN Concepcion DO> 01/10/20 1237 ~ ~ NAME: ELMO GARCIA ~MED REC#: [id number] PEND ING ~ ~PHYSICIAN: GODFREY JORDAN DO ~Subjective ~HPI/CC On N [facility] Admission ~Date Seen by Provider: Jan 09, () 2019 ~Time Seen by Provider: 10:00 ~Subjective/Events-last exam ~Bowels mo magy yesterday ~Toe amputation today, Dr. Pradhan will complete that ~IV antibiotics star lamin ~No therapy participation today due to amputation ~Will need to go on upstairs to swing bed after angiogram today and amputation ~Checked meds and labs ~Chec ked therapy notes ~Conferred with RN ~ ~Rev iew of Systems ~General: Fatigue ~Musculoskele shannan: leg pain ~ ~Objective ~Exam ~Vital Sign s ~ ~Vital Signs ~ ~ ~ Date Time Temp Pulse Resp B/P (MAP) Pulse Ox O2 Delivery O2 Flow Rate FiO2 ~ ~01/10/20 09:00 NIV CPAP 4.00 ~ ~01/10/20 09:00 68 128/77 (94) ~ ~ 0 07:21 92 ~ ~01/10/20 06:00 36.4 16 ~ ~01/07/20 18:48 36 ~ ~Capillary Refill : Less [place] n 3 Seconds ~General Appearance: No Apparen t Distress, WD/WN, Chronically ill, Obese ~HEENT: PERRL/EOMI, Normal ENT Inspecti on, Pharynx Normal ~Neck: Full Range of Mot ion, Normal Inspection, Non Tender, Supple, Carotid Bruit ~Respiratory: Chest Non T bren, Lungs Clear, Normal Breath Sounds, No Accessory Muscle Use, No ~Respiratory Distress ~Cardiovascular: Regular Rate, Rhythm, No Edema, No Gallop, No JVD, No Murmur, Normal Peripheral ~Pulses ~Gastrointestinal: Normal Bowel Sounds, No Organomegaly, No Pulsatile Mass, Non Te nder, Soft ~Back: Normal Inspection, No CVA Tenderness, No Vertebral Tenderness ~Extremity: Normal Capillary Refill, No rmal Inspection, Normal Range of Motion, Non Tender, No Calf ~Tenderness, No Pedal E kathleen, Other (right AKA) ~Neurologic/Psychiatr ic: Alert, Oriented x3, No Motor/Sensory Deficits, Normal Mood/Affect, cloth presser II-~X II Norm as Tested, Motor Weakness (general ized weakness left leg) ~Skin: Normal Color, Warm/Dry ~Lymphatic: No Adenopathy ~ ~Results/Procedures ~Lab ~Laboratory Te sts ~01/10/20 06:27 ~ ~ ~Patient resulted la bs reviewed. ~ ~FIM ~Transfers ~Therapy Co de Descriptions/Definitions ~ ~Functional [place] Measure: ~0=Not Assessed/N A 4=Minimal Assistance ~1=Total Assistanc e 5=Supervision or Setup ~2=Maximal [place] tance 6=Modified [place] ~3=Moderate Assistance 7=Complete IndependenceSCALE : Activities may be completed with or wit hout ~assistive devices. ~ ~3-Jdjymmgijq-hfm ient completes the activity by him/herself w ith no assistance from a helper. ~5-Set-up or Clean-up Assistance-helper sets up or c leans up; patient completes activity. [place] ~assists only prior to or ~ following t he activity. ~4-Supervision or Touching Assistance-helper provides verbal cues and/or touching/steadying and/or ~contact guar d assistance as patient completes activit y. Assistance may be provided ~ throughout the activity or intermittently. ~3-Partial/Moderate Assistance-helper d oes LESS THAN HALF the effort. [place] lifts , holds or supports~trunk or limbs, but provides less than half the effort. ~2-Substantial/Maximal Assistance-helpe r does MORE THAN HALF the effort. [place] lifts or holds trunk ~or limbs and provides more than half the effort. ~4-Cezgoijkr-zgujxi do es ALL the effort. Patient does none of the ef fort to complete the activity. ~Or, the assi stance of 2 or more helpers is required for th e patient to complete the ~ activity. ~If activity was not attempted, code reason : ~7-Patient Refused. ~9-Not Applicable-n ot attempted and the patient did not perfo rm the activity before the current ~illness, exacerbation or injury. ~10-Not Attempt ed due to Environmental Limitations-(lack of equipment, weather restraints, etc.). ~ 88-Not Attempted due to Medical Conditions or Safety Concerns. ~Roll Left to Right (QC): 2 ~ Sit to Lying (QC): 2 ~Sit to Stand (QC): 2 ~Chair/Hgt-oy-Uinzn Xfer(QC): 2 ~Car Tr chantal (QC): 1 ~ ~Gait Training ~Does the Nai ent Walk?: No and Walking Goal NOT indicate d ~Walk 10 feet (QC): 88 ~Walk 50 ft with 2 Turns(QC): 88 ~Walk 150 ft (QC): 88 ~Wa lking 10ft/uneven surface-QC: 88 ~ ~Wheelchai r Training ~Does the Pt Use a Wheelchair? : Yes ~Wheel 50 ft with 2 turns (QC): 1 ~Whee l 150 ft (QC): 1 ~Type of Wheelchair: Manual ~ ~Stair Training ~1 Step (curb) (QC): 88 ~4 Steps (QC): 88 ~12 Steps (QC): 88 ~ ~Ba tony ~Picking up an Object (QC): 88 ~ ~ADL-Treatment ~Eating (QC): 5 (set up. OT opened sugar packet and poured into tea . Pt able to picket labor union bowl and ~bring food to his mouth.) ~Oral Hygiene (QC): 6 ~Shower/B athe Self (QC): 2 ~Upper Body Dressing (QC): 5 ~Lower Body Dressing (QC): 1 ~On/Off Fo otwear (QC): 2 ~Toileting Hygiene (QC): 1 ~Chris let Transfer (QC): 1 ~ ~Assessment/Plan ~Assessment and Plan ~Assess Plan/Chief Complaint ~Assessment: ~Debility ~Falls ~DM OOC ~Left foot wound ~h/o right BKA ~CA D ~CABG hx ~PVD ~Coumadin treatment ~Azra pheral neuropathy ~CKD ~CHF ~Poor motivation ~ TREE ~[place] of [place] stenosis maintained o n Coumadin ~ ~Plan: ~IRF protocol ~Home m eds ~Monitor INR ~Sugar management ~Lovenox bridge dc ~INR with labs tomorrow ~Catherization today to evaluate left l eg ~IV abx ~Toe amputation ~ ~(1) Debility ~(2 ) Diabetes mellitus, insulin dependent (I DDM), uncontrolled ~Status: Acute ~(3) TREE (obstructive sleep apnea) ~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: 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 kirill ~(4) Renal insufficiency ~Status: Acute ~(5) CAD (coronary artery disease) ~Status: Chronic ~(6) Hypoxia ~Status: Acute ~ ~ ~ ~GODFREY ZEPEDA DO Jan 10, 2020 07:25 ~ ~ ~<Created by GODFREY ZEPEDA DO> ~<Electronically signed by GODFREY GEORGE DO> 01/10/202057 ~ ~ NAME: ELMO GARCIA ~MED REC#: [id number] PEND ING ~ ~PHYSICIAN: TYE KAYE CRNA ~MAC ~Patient Condition N KH S ~Mental Status/LOC: Same as Preop () ~Cardiovascular: Satisfactory ~Nausea/Vomiting: Absent ~Respiratory: Satisfactory ~Pain: Controlled ~Complications: Absent ~ ~Post Op Complications ~Complications ~None ~ ~F ollow Up Care/Instructions ~Patient Instructi ons ~None needed. ~ ~Anesthesiology Dischar ge Order ~Discharge Order ~Patient is doin g well, no complaints, stable vital signs , no apparent adverse anesthesia problems. ~ ~No complications reported per nursing. ~ ~ ~ ~TYE DEAL CRNA Jan 10, 2020 17: 05 ~ ~ ~<Created by TYE DEAL [employer]> ~<Electronically signed by TYE [facility]> 01/10/201704 ~ ~ NAME: ELMO GARCIA ~MED REC#: [id number] PEND ING ~ ~PHYSICIAN: IVORY TOURE ~Subjective N [facility] ~Date Seen by Provider: Jan 10, 2020 ~Time (19841) Seen by Provider: 08:54 ~Subjective/Events-last exam ~Patient i n bed, no new complaint. Denies any chest pain . Planning for toe amputation with Dr. Champion~today. ~ ~Objective-Cardiology ~ Exam ~Last Set of Vital Signs ~ ~Vital Signs ~ ~ ~ 01/07/20 01/11/20 ~ ~ 18:48 05:43 ~ ~Temp 36.6 ~ ~Pulse 77 ~ ~Resp 18 ~ ~B/P (MAP) 147/7 9 (101) ~ ~Pulse Ox 92 ~ ~O2 Delivery NIV CPAP ~ ~O2 Flow Rate 4.00 ~ ~FiO2 36 ~ ~Capi llary Refill : Less Than 3 Seconds ~I O ~ ~ ~ ~Intake and Output ~ ~ 01/11/20 ~ ~ 00:0 0 ~ ~Intake Total 1060 ml ~ ~Output Total 1 575 ml ~ ~Balance -515 ml ~ ~ ~ ~Intake Oral 1 060 ml ~ ~Output Urine Total 1575 ml ~ ~ ~Gene ral: Alert, Oriented X3, Cooperative ~HEENT: Atraumatic, PERRLA ~Neck: Supple ~Lungs : Clear to Auscultation, Normal Air Movem ent ~Heart: Regular Rate, Normal S1, Normal S2 ~Abdomen: Soft, No Tenderness ~Extremit ies: Other (trace edema BLE) ~Neuro: Normal Speech, Cranial Nerves 3-12 NL ~Psych/M ental Status: Mental Status NL, Mood NL ~ ~Re sults ~Lab ~Laboratory Tests ~01/11/20 06:25 ~ ~ ~01/11/20 06:40 ~ ~ ~ ~ ~A/P-Cardiology ~Admission Diagnosis ~PAD ~LLE nonheali ng wounds ~CAD ~HTN ~ ~Assessment/Plan ~Peripheral arterial disease, history o f right BKA, had progressive wound that resulted in the ~amputation done in November 2018, followed by [facility]. Now having nonhealing wounds to LLE at anterior felton ~and toes. Plan jesse to peripheral angiogram, right groin ac cess, timing TBD. Patient to also undergo ~le ft 3rd toe amputation with Dr. Champion today ~ ~Acute on chronic renal insufficiency, continu e to monitor renal function. ~ ~Coronary art kristen disease, history of multiple interventi ons, total of 8 stents, had bypass surgery ~ using single vessel after failed multiple att empts for intervention done at [facility] ~in 2016. 2D echo done October 01 revealed normal LV size and normal PA pressure, followed by Dr. Bedoya ~ ~Hypertension, continue on current medications and continue to monitor. ~ ~Hyperlipidemia, intolerant to multiple statin, continue to monitor lipids ~ ~C OPD, obstructive sleep apnea, maintained on C Pap, persistent dyspnea ~ ~Pulmonary hyperte nsion. ~ ~Diabetes mellitus, followed and canelo ged by primary care physician ~ ~Obesity, educ ated on weight loss ~ ~Carotid stenosis, tot ally occluded left ICA, less than 40 percent on the right side. Followed at pr~imary ca re physician ~ ~Vertigo, dizziness, chroni c. ~ ~Medical noncompliance. ~ ~Patient was seen and evaluated with karthik Gutierrez performed, management plan was eileene d, ~agree with the current scribed note, I made few changes to the note using Italic fo nt ~ ~Clinical Quality Measures ~DVT/VTE Risk/Contraindication: ~Risk Factor Sco re Per Nursin ~RFS Level Per Nursing on Ad idalia: 4+=Very High ~ ~ ~ ~BAUDILIO HAWLEY Jan 10, 2020 8:56 am ~BARBIE ALFRED MD Jan 11, 2020 8:53 am ~ ~ ~<Created by IVORY HAWLEY PA> ~<Electronically signed by BARBIE MEEHAN MD> 01/11/20 0853 ~ ~ ~<Electronically sign ed by BARBIE ALFRED MD> 01/11/20 0853 laboratory on 2020-01-10 Albumin [Mass/Vol] 3.1 g/dL Low 3.2-4.5 PENDING 06-1 0-2 g/dL [facility] 02:27-0 ([id number]) 400 ALP [Catalytic 159 U/L High 40-136 U/L PENDING 06-10-2 activity/Vol] [facility] 020 [facility] 02:27-0 ([id number]) 400 ALT [Catalytic 30 U/L Negative 0-55 U/L PENDING 06-10-2 activity/Vol] [facility] 020 [facility] 02:27-0 ([id number]) 400 Anion gap 11 mmol/L Negative 5-14 PENDING 06-10-2 [Moles/Vol] mmol/L [facility] 020 [facility] 02:27-0 ([id number]) 400 AST [Catalytic 23 U/L Negative 5-34 U/L PENDING 06-10-2 activity/Vol] [facility]AT[facility] 020 [facility] 02:27-0 ([id number]) 400 Bilirubin [Mass/Vol] 0.4 mg/dL Negative 0.1-1.0 PENDING 06 -10-2 mg/dL [facility] 020 [facility] 02:27-0 ([id number]) 400 Calcium [Mass/Vol] 8.4 mg/dL Low 8.5-10.1 PENDING 06-1 0-2 mg/dL [facility] 0[facility] 02:27-0 ([id number]) 400 Calcium [Mass/Vol] 9.1 mg/dL Negative 8.5-10.1 PENDING 06-1 0-2 mg/dL LOCATIO 020 N [facility] 02:27-0 ([id number]) 400 Chloride [Moles/Vol] 103 mmol/L Negative 98-107 PENDING 0 6-10-2 mmol/L LOCAT[facility] 020 N [facility] 02:27-0 ([id number]) 400 CO2 [Moles/Vol] 23 mmol/L Negative 21-32 PENDING 06-10-2 mmol/L [facility] 0[facility] 02:27-0 ([id number]) 400 Creatinine 1.88 mg/dL High 0.60-1.30 PENDING 06-10-2 [Mass/Vol] mg/dL [facility] 020 [facility] 02:27-0 ([id number]) 400 Creatinine and 36 PENDING 06-10-2 Glomerular LOC[facility]IO 020 filtration N [facility] 02:27-0 rate.predicted panel ([id number]) 400 - Serum, Plasma or Blood Glucose [Mass/Vol] 113 mg/dL High 70-110 PENDING 06-1 0-2 mg/dL [facility] 0[facility] 01:50-0 ([id number]) 400 Glucose [Mass/Vol] 107 mg/dL High 70-105 PENDING 06-1 0-2 mg/dL [facility] 0[facility] 02:27-0 ([id number]) 400 Glucose [Mass/Vol] 109 mg/dL Negative 70-110 PENDING 06-1 0-2 mg/dL [facility] 0[facility] 07:25-0 ([id number]) 400 Glucose [Mass/Vol] 149 mg/dL High 70-110 PENDING 06-1 0-2 mg/dL [facility] 020 [facility] 19:40-0 ([id number]) 400 INR Coag (Platelet 1.9 High 0.8-1.4 PENDING 06-1 0-2 poor plasma or LOCATIO 020 blood) [Relative N [facility] 02:27-0 time] ([id number]) 400 Magnesium [Mass/Vol] 2.0 mg/dL Negative 1.6-2.4 PENDING 06 -10-2 mg/dL LOCATIO 020 N [facility] 02:27-0 ([id number]) 400 Potassium 4.1 mmol/L Negative 3.6-5.0 PENDING 10-2 [Moles/Vol] mmol/L LOCATIO 020 N [facility] 02:27-0 ([id number]) 400 Protein [Mass/Vol] 6.3 g/dL Low 6.4-8.2 PENDING 06-1 0-2 g/dL [facility] 020 N [facility] 02:27-0 ([id number]) 400 PT Coag (PPP) [Time] 22.7 s High 12.2-14.7 PENDING 06 -10-2 s LOCATIO 020 N [facility] 02:27-0 ([id number]) 400 Sodium [Moles/Vol] 137 mmol/L Negative 135-145 PENDING -2 mmol/L LOCATIO 020 N [facility] 02:27-0 ([id number]) 400 Urea nitrogen 38 mg/dL High 7-18 mg/dL PENDING 01-09-2 [Mass/Vol] LOCATIO 020 N [facility] 02:27-0 ([id number]) 400 Urea 20 mg/mg PENDING 01-09-2 nitrogen/Creatinine LOCATIO 020 [Mass ratio] N [facility] 02:27-0 ([id number]) 400 not yet categorized on 2020-01-09 NAME: ELMO GARCIA ~MED REC#: [id number] PEND ING ~ ~PHYSICIAN: MARIA A MARIE ~OT Current Status-Daily N [facility] Note ~Subjective ~Pt sleeping with CPAP on in (000 00) bed. Woke to name x3. Agrees to therapy . ~ ~Mental Status/Objective ~Patient Orientation: Person, Place, Time, Situa tion ~ ~ADL-Treatment ~Therapy Code Descriptions/Definitions ~ ~Functional [place] Measure: ~0=Not Assessed/N A 4=Minimal Assistance ~1=Total Assistanc e 5=Supervision or Setup ~2=Maximal Hayn tance 6=Modified [place] ~3=Moderate Assistance 7=Complete IndependenceSCALE : Activities may be completed with or wit hout ~assistive devices. ~ ~2-Olnskmlfhd-iqi ient completes the activity by him/herself w ith no assistance from a helper. ~5-Set-up or Clean-up Assistance-helper sets up or c leans up; patient completes activity. [place] ~assists only prior to or ~ following t he activity. ~4-Supervision or Touching Assistance-helper provides verbal cues and/or touching/steadying and/or ~contact guar d assistance as patient completes activit y. Assistance may be provided ~ throughout the activity or intermittently. ~3-Partial/Moderate Assistance-helper d oes LESS THAN HALF the effort. [place] lifts , holds or supports~trunk or limbs, but provides less than half the effort. ~2-Substantial/Maximal Assistance-helpe r does MORE THAN HALF the effort. [place] lifts or holds trunk ~or limbs and provides more than half the effort. ~9-Jswuuveei-kxodkc do es ALL the effort. Patient does none of the ef fort to complete the activity. ~Or, the assi stance of 2 or more helpers is required for th e patient to complete the ~ activity. ~If activity was not attempted, code reason : ~7-Patient Refused. ~9-Not Applicable-n ot attempted and the patient did not perfo rm the activity before the current ~illness, exacerbation or injury. ~10-Not Attempt ed due to Environmental Limitations-(lack of equipment, weather restraints, etc.). ~ 88-Not Attempted due to Medical Conditions or Safety Concerns. ~ ~Other Treatment ~Pt took increased time to wake and participate. UE dowel niyah exercises completed with 3# w t to ~increase B UE strength and activity tolerance. 1 set 10 reps each with neo very breaks between each~set. After session, anesthesiologist present in room. Call light/phone in reach. All needs met in~ room. ~ ~OT Short Term Goals ~Short Term Goal s ~Time Frame: Jan 17, 2020 ~Shower/bathe self: 2 ~ ~OT Pulp Mixer Goals ~Group Home Goal s ~Time Frame: Feb 01, 2020 ~Eating (QC): 6 ~Oral Hygiene (QC): 6 ~Toileting Hygien e (QC): 4 ~Shower/Bathe Self (QC): 3 ~Upp er Body Dressing (QC): 5 ~Lower Body Dress ing (QC): 3 ~On/Off Footwear (QC): 2 ~Addit ional Goals: 1-Demonstrate ADL Tasks, 2-Verba lize Understanding, 3-ImproveStrength/Farshad ~1=Demonstrate adherence to instructed precautions during ADL tasks. ~2=Patien t will verbalize/demonstrate understanding of assistive devices/modifications for ADL . ~3=Patient will improve strength/tolera nce for activity to enable patient to perfo rm ADL's. ~ ~OT Education/Plan ~Problem List/Assessment ~Assessment: Decreased Activ Tolerance, Decreased UE Strength ~ ~Dis charge Recommendations ~Plan/Recommendations: Continue POC ~ ~Treatment Plan/Plan of Care ~Patient would benefit from OT for educ ation, treatment and training to promote independence in ~ADL's, mobility, safet y and/or upper extremity function for ADL 's. ~Plan of Care: ADL Retraining, Function al Mobility, Group Exercise/Act as Ind, UE Funct Exercise/Act ~Treatment Duration: Jan ~Frequency: At least 5 of 7 days/Wk (IR F) ~Estimated Hrs Per Day: 1.5 hours per d ay ~Agreement: Yes ~Rehab Potential: Guard ed ~ ~Time/GCodes ~Start Time: 13:00 ~Stop T nini: 13:15 ~Total Time Billed (hr/min): 15 ~ Billed Treatment Time ~1 visit-EX 1 (15 min) ~ ~ ~ ~MARIA A KEENE Jan 09, 2020 13:19 ~ ~ ~<Created by MARIA A VYAS> ~<Electronically signed by MARIA A VYAS> 01/09/20 1319 ~ ~ NAME: ELMO GARCIA ~MED REC#: [id number] PEND ING ~ ~PHYSICIAN: BETTY HOUSE PT ~PT Daily Note-Current N [facility] ~Subjective ~Patient in bed pre tx, agrees to (000 00) PT, has no complaints of pain at rest. Will be co-treating with OT~due to poor nai ent mobility, strength, endurance, balance, left knee buckling, the need to ~coordinate UE and LE during activity, reduce the risk of falls. Patient very lethargic and needs ~extra time to rouse. ~ ~Appearance ~Patient in bed post tx with nurse call,phone, tray, all nee ds met. ~ ~Mental Status ~Patient Orientat ion: Person, Place, Situation ~ ~Transfers ~ SCALE: Activities may be completed with or wit hout assistive devices. ~ ~5-Ltgwxqcrsj-rjro ent completes the activity by him/herself w ith no assistance from a helper. ~5-Set-up or Clean-up Assistance-helper sets up or c leans up; patient completes activity. [place] ~assists only prior to or ~ following t he activity. ~4-Supervision or Touching Assistance-helper provides verbal cues and/or touching/steadying and/or ~contact guar d assistance as patient completes activit y. Assistance may be provided ~ throughout the activity or intermittently. ~3-Partial/Moderate Assistance-helper d oes LESS THAN HALF the effort. [place] lifts , holds or supports~trunk or limbs, but provides less than half the effort. ~2-Substantial/Maximal Assistance-helpe r does MORE THAN HALF the effort. [place] lifts or holds trunk ~or limbs and provides more than half the effort. ~1-Vmaxdubjy-tyfyzw do es ALL the effort. Patient does none of the ef fort to complete the activity. ~Or, the assi stance of 2 or more helpers is required for th e patient to complete the ~ activity. ~If activity was not attempted, code reason : ~7-Patient Refused. ~9-Not Applicable-n ot attempted and the patient did not perfo rm the activity before the current ~illness, exacerbation or injury. ~10-Not Attempt ed due to Environmental Limitations-(lack of equipment, weather restraints, etc.). ~ 88-Not Attempted due to Medical Conditions or Safety Concerns. ~Roll Left Right (QC): 2 ~Sit to Lying (QC): 2 ~Lying to Sitting/Side of Bed(Q: 2 ~Sit to Stand (QC): 2 ~Chair/Gbi-rw-Wfcfz Xfer(QC): 2 ~Patien t supine to sit, transfer to with elev ated bed and rolling walker, wheeled to show er room, ~transferred to shower bench, transferred to , wheeled to room, sta nding for dressing, transfer to ~bed. Patient much weaker today, needs to use right residu al limb unconventionally in order to stand ~and perform transfers, this is not the best idea because he has a wound on his residual limb. We ~may have to start using a rae or sit to stand machine. Patient also got aggress frances and threatened~OT, patient had to be to ld he cannot threaten hospital staff. ~ ~Weig ht Bearing ~ ~right BKA ~ ~Treatments ~bed mobility and transfers, shower, dressin g. PT performed bed mobility and transfers, standing, ~assist with standing and positioning with dressing and shower, O T performed shower, dressing, assist~with UE positioning and safety during functiona l mobility ~ ~Assessment ~Current Status: Poor Progress ~Patient much weaker today, aggressive with staff. ~ ~PT Short Term Goals ~Short Term Goals ~Time Frame: Jan 11, 2020 ~Roll Left Right: 6 ~Sit to lyin ~L jenelle to sitting on side of be: 4 ~Sit to sta nd: 3 ~Chair/wmm-nw-rdpel transfer: 3 ~ ~PT L mariaelena Term Goals ~Group Home Goals ~PT Long Te rm Goals Time Frame: Jan 25, 2020 ~Roll Le ft Right (QC): 6 ~Sit to Lying (QC): 6 ~Lying-Sitting on Side/Bed(QC): 6 ~Sit to Stand (QC): 5 ~Chair/Que-yi-Lraad Xfer( QC): 5 ~Toilet Transfer (QC): 5 ~Car Transfer (QC): 5 ~Does the Patient Walk: No and Walkin g Goal NOT indicated ~Walk 10 feet (QC): 88 ~W alk 50ft with 2 Turns (QC): 88 ~Walk 150 ft (QC): 88 ~Walking 10ft on Uneven Surface: 88 ~1 Step (curb) (QC): 88 ~4 Steps (QC): 88 ~12 Steps (QC): 88 ~Picking up an Object (Q C): 88 ~Wheel 50 feet with 2 turns (QC: 6 ~Whe el 150 feet: 6 ~ ~PT Plan ~Problem List ~Probl em List: Activity Tolerance, Functional Strength, Safety, Balance, Gait, Transf er, Bed ~Mobility, ROM ~ ~Treatment/Plan ~Treatment Plan: Continue Plan of Care ~Treatment Plan: Bed Mobility, Educatio n, Functional Activity Farshad, Functional Strength, Group ~Therapy, Safety, Thera peutic Exercise, Transfers ~Treatment Duration : Jan 25, 2020 ~Frequency: At least 5 of 7 da ys/Wk (IRF) ~Estimated Hrs Per Day: 1.5 hours per day ~Patient and/or Family Agrees t: Ye s ~ ~Safety Risks/Education ~Patient Educat ion: Transfer Techniques, Correct Positionin g, Safety Issues ~Teaching Recipient: Nai ent ~Teaching Methods: Demonstration, Discu ssion ~Response to Teaching: Reinforcement Ne eded ~ ~Time/GCodes ~Time In: 1000 ~Time Out: 1100 ~Total Billed Treatment Time: 60 ~Total Billed Treatment ~1 visit ~FA 60' ~ ~co-treated for 60 min ~ ~ ~ ~CLIVE STRONG PT Jan 09, 2020 11:53 ~ ~ ~<Created by DORA STRONG PT> ~<Electronically signed by ANNE STRONG PT> 01/09/20 1155 ~ ~ NAME: ELMO GARCIA Maggy ~MED REC#: [id number] PEND ING ~ ~PHYSICIAN: MARIA A MARIE ~OT Current Status-Daily N [facility] Note ~Subjective ~Pt sleeping in bed with () CPAP, woke to touch on shldr. Pt agrees to therapy. Pt is self limiting, ~instead of initiating tasks pt will state do this or that, ie. lock brakes, move w/c, or any thing ~that is out of his personal routine. P t yelled at COBIAN for not having equipment in the position he ~wanted them in and wor rying about stupid little things with transfe rring. ~ ~Mental Status/Objective ~Patient Orientation: Person, Place, Time, Situa tion ~ ~ADL-Treatment ~PT/OT co-treat (999-), skills of 2 clinicians due to medical complexity, low activity ~tolerance, sa fety and unsafe transfers. PT working on transfers, standing and mobility during ADLs.~ OT working on functional transfe rs and ADLs. Pt agrees to shower. Pt required assist x2 for all ~transfers due to weakness a nd safety issues. Pt able to complete uppe r body, azra area and upper ~LE's for bat ginette, assist for all other areas. Pt leans fo rward on shower bench using grabbars to ~allo w enough space to cleanse buttocks. Pt c/ o how grabbars and equipment are set up and t hat it is~better in his home. COBIAN asked pt if he was aware of lower body dressing equipm ent, pt stated that ~he was and had at his h ome. Then stated that he has a girl that hel ps him with all of that when she~comes to give him a bath. After set up, pt able to don/doff shirt. Dependent with donning/doffing ~ lower body clothing and footwear. Sitting at sink, pt able to complete oral care and groom ing. ~After session, pt lying in bed with ca ll light/phone in reach. All needs met in room. ~Therapy Code Descriptions/Definitions ~ ~Functional [place] Measure: ~0=No t Assessed/NA 4=Minimal Assistance ~1=Tot al Assistance 5=Supervision or Setup ~2=Ma ximal Assistance 6=Modified [place] ~3=Moderate Assistance 7=Complete IndependenceSCALE: Activities may be completed with or without ~assistive de vices. ~ ~5-Dshefcajtf-frinqkg completes the activity by him/herself with no assista nce from a helper. ~5-Set-up or Clean-up Assistance-helper sets up or cleans up; patient completes activity. [place] ~ass ists only prior to or ~ following the activi ty. ~4-Supervision or Touching Assistance-h elper provides verbal cues and/or touching/steadying and/or ~contact guar d assistance as patient completes activit y. Assistance may be provided ~ throughout the activity or intermittently. ~3-Partial/Moderate Assistance-helper d oes LESS THAN HALF the effort. [place] lifts , holds or supports~trunk or limbs, but provides less than half the effort. ~2-Substantial/Maximal Assistance-helpe r does MORE THAN HALF the effort. [place] lifts or holds trunk ~or limbs and provides more than half the effort. ~5-Eafzqhkbc-krqpfq do es ALL the effort. Patient does none of the ef fort to complete the activity. ~Or, the assi stance of 2 or more helpers is required for th e patient to complete the ~ activity. ~If activity was not attempted, code reason : ~7-Patient Refused. ~9-Not Applicable-n ot attempted and the patient did not perfo rm the activity before the current ~illness, exacerbation or injury. ~10-Not Attempt ed due to Environmental Limitations-(lack of equipment, weather restraints, etc.). ~ 88-Not Attempted due to Medical Conditions or Safety Concerns. ~Oral Hygiene (QC): 6 ~Shower /Bathe Self (QC): 2 ~Upper Body Dressing (QC): 5 ~Lower Body Dressing (QC): 1 ~On/Off Footwear: 2 ~ ~OT Short Term Goals ~My rt Term Goals ~Time Frame: Jan 17, 2020 ~Shower/bathe self: 2 ~ ~OT Group Home G oals ~Group Home Goals ~Time Frame: Jan 31 20 ~Eating (QC): 6 ~Oral Hygiene (QC): 6 ~Toileting Hygiene (QC): 4 ~Shower/Bath e Self (QC): 3 ~Upper Body Dressing (QC): 5 ~L ower Body Dressing (QC): 3 ~On/Off Footwear (QC): 2 ~Additional Goals: 1-Demonstrate ADL Tasks, 2-Verbalize Understanding, 3-ImproveStrength/Farshad ~1=Demonstrate adherence to instructed precautions dur ing ADL tasks. ~2=Patient will verbalize/demonstrate understanding of assistive devices/modifications for ADL . ~3=Patient will improve strength/tolera nce for activity to enable patient to perfo rm ADL's. ~ ~OT Education/Plan ~Problem List/Assessment ~Assessment: Decreased Activ Tolerance, Decreased Safety Aware, Decr eased UE Strength, Dependent ~Transfers, Impa ired Coordination, Impaired Funct Balance, Impaired Self-Care Skills ~ ~Discharge Recommendations ~Plan/Recommendations: Continue POC ~ ~Treatment Plan/Plan of Care ~Patient would benefit from OT for educ ation, treatment and training to promote independence in ~ADL's, mobility, safet y and/or upper extremity function for ADL 's. ~Plan of Care: ADL Retraining, Function al Mobility, Group Exercise/Act as Ind, UE Funct Exercise/Act ~Treatment Duration: Jan ~Frequency: At least 5 of 7 days/Wk (IR F) ~Estimated Hrs Per Day: 1.5 hours per d ay ~Agreement: Yes ~Rehab Potential: Guard ed ~ ~Time/GCodes ~Start Time: 10:00 ~Stop T nini: 11:15 ~Total Time Billed (hr/min): 75 ~ Billed Treatment Time ~1 visit-ADL 5 (75 min) co-treat with PT [id number], individual [id number] ~ ~ ~ ~MARIA A KEENE Dec 11:22 ~ ~ ~<Created by MARIA A VYAS > ~<Electronically signed by MARIA A VYAS> 01/09/20 1136 ~ ~ NAME: ELMO GARCIA ~MED REC#: [id number] PEND ING ~ ~PHYSICIAN: GODFREY JORDAN DO ~Subjective ~HPI/CC On N [facility] Admission ~Date Seen by Provider: Jan 09, 2020 (000 00) ~Time Seen by Provider: 09:45 ~Subjective/Events-last exam ~Dr. Dawn called me today and thinks the toe is infected and may need amputation so I d id consult ~Dr. Alfred and I did consult Dr Toby Champion ~Bowels moved yesterday ~INR therapeutic discontinued Lovenox yester day ~IV antibiotics will be initiated curre ntly pt on Omnicef and Doxycycline ~Midline will be placed ~Pt may require upstairs canelo gement ~Checked meds and labs ~Checked therapy notes ~Conferred with RN ~ ~Review of Systems ~General: Fatigue ~Musculoskeletal: leg pain ~ ~Objective ~Exam ~Vital Signs ~ ~Chey l Signs ~ ~ ~ Date Time Temp Pulse Resp B /P (MAP) Pulse Ox O2 Delivery O2 Flow Rate FiO2 ~ ~01/09/20 18:34 91 NIV CPAP 5.00 ~ ~01/08 17:54 37.2 66 20 131/69 (89) ~ ~01/07/20 18:48 36 ~ ~Capillary Refill : Less Than 3 Se conds ~General Appearance: No Apparent Distre ss, WD/WN, Chronically ill, Obese ~HEENT: PERRL/EOMI, Normal ENT Inspection, Phar ynx Normal ~Neck: Full Range of Motion, Nor mal Inspection, Non Tender, Supple, Carotid Bruit ~Respiratory: Chest Non Tender, Lungs C lear, Normal Breath Sounds, No Accessory Musc le Use, No ~Respiratory Distress ~Cardiovascular: Regular Rate, Rhythm, No Edema, No Gallop, No JVD, No Murmur, No rmal Peripheral ~Pulses ~Gastrointestinal: N ormal Bowel Sounds, No Organomegaly, No Pulsa tile Mass, Non Tender, Soft ~Back: Normal Inspection, No CVA Tenderness, No Verte bral Tenderness ~Extremity: Normal Capillary Refill, Normal Inspection, Normal Range of Motion, Non Tender, No Calf ~Tenderness , No Pedal Edema, Other (right AKA) ~Neurologic/Psychiatric: Alert, Oriente d x3, No Motor/Sensory Deficits, Normal Mood/Affect, cloth presser II-~XII Norm as Tested , Motor Weakness (generalized weakness le ft leg) ~Skin: Normal Color, Warm/Dry ~Lymphatic: No Adenopathy ~ ~Results/Procedures ~Lab ~Patient resul lamin labs reviewed. ~ ~FIM ~Transfers ~Thera py Code Descriptions/Definitions ~ ~Functi onal [place] Measure: ~0=Not Assessed/N A 4=Minimal Assistance ~1=Total Assistanc e 5=Supervision or Setup ~2=Maximal [place]any tance 6=Modified [place] ~3=Moderate Assistance 7=Complete IndependenceSCALE : Activities may be completed with or wit hout ~assistive devices. ~ ~3-Lwmusgchyk-afs ient completes the activity by him/herself w ith no assistance from a helper. ~5-Set-up or Clean-up Assistance-helper sets up or c leans up; patient completes activity. [place] ~assists only prior to or ~ following t he activity. ~4-Supervision or Touching Assistance-helper provides verbal cues and/or touching/steadying and/or ~contact guar d assistance as patient completes activit y. Assistance may be provided ~ throughout the activity or intermittently. ~3-Partial/Moderate Assistance-helper d oes LESS THAN HALF the effort. [place] lifts , holds or supports~trunk or limbs, but provides less than half the effort. ~2-Substantial/Maximal Assistance-helpe r does MORE THAN HALF the effort. [place] lifts or holds trunk ~or limbs and provides more than half the effort. ~9-Heovzkxlc-cmndvt do es ALL the effort. Patient does none of the ef fort to complete the activity. ~Or, the assi stance of 2 or more helpers is required for th e patient to complete the ~ activity. ~If activity was not attempted, code reason : ~7-Patient Refused. ~9-Not Applicable-n ot attempted and the patient did not perfo rm the activity before the current ~illness, exacerbation or injury. ~10-Not Attempt ed due to Environmental Limitations-(lack of equipment, weather restraints, etc.). ~ 88-Not Attempted due to Medical Conditions or Safety Concerns. ~Roll Left to Right (QC): 6 ~ Sit to Lying (QC): 3 ~Sit to Stand (QC): 2 ~Chair/Llw-xk-Lixcx Xfer(QC): 2 ~Car Tr ansfer (QC): 1 ~ ~Gait Training ~Does the Nai ent Walk?: No and Walking Goal NOT indicate d ~Walk 10 feet (QC): 88 ~Walk 50 ft with 2 Turns(QC): 88 ~Walk 150 ft (QC): 88 ~Wa lking 10ft/uneven surface-QC: 88 ~ ~Wheelchai r Training ~Does the Pt Use a Wheelchair? : Yes ~Wheel 50 ft with 2 turns (QC): 1 ~Whee l 150 ft (QC): 1 ~Type of Wheelchair: Manual ~ ~Stair Training ~1 Step (curb) (QC): 88 ~4 Steps (QC): 88 ~12 Steps (QC): 88 ~ ~Ba tony ~Picking up an Object (QC): 88 ~ ~ADL-Treatment ~Eating (QC): 5 (set up. OT opened sugar packet and poured into tea . Pt able to picket labor union bowl and ~bring food to his mouth.) ~Oral Hygiene (QC): 6 ~Shower/B athe Self (QC): 2 ~Upper Body Dressing (QC): 5 ~Lower Body Dressing (QC): 1 ~On/Off Fo otwear (QC): 2 ~Toileting Hygiene (QC): 1 ~Chris let Transfer (QC): 1 ~ ~Assessment/Plan ~Assessment and Plan ~Assess Plan/Chief Complaint ~Assessment: ~Debility ~Falls ~DM OOC ~Left foot wound ~h/o right BKA ~CA D ~CABG hx ~PVD ~Coumadin treatment ~Azra pheral neuropathy ~CKD ~CHF ~Poor motivation ~ TREE ~[place] of [place] stenosis maintained o n Coumadin ~ ~Plan: ~IRF protocol ~Home m eds ~Monitor INR ~Sugar management ~Lovenox bridge dc ~INR with labs tomorrow ~Catherization tomorrow to evaluate lef t leg ~IV abx ~ ~(1) Debility ~(2) Diabetes mellitus, insulin dependent (IDDM), uncontrolled ~Status: Acute ~(3) TREE (obstructive sleep apnea) ~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 ~ ~Mental Status ~Patient Orientation: [place], [place] ~ ~Transfers ~SCALE: Activities may be completed with or without assistive devices. ~ ~0-Pkotfhbyip-ftdgvsx comple andria the activity by him/herself with no assistance from a helper. ~5-Set-up or Clean-up Assistance-helper sets up or c leans up; patient completes activity. [place] ~assists only prior to or ~ following t he activity. ~4-Supervision or Touching Assistance-helper provides verbal cues and/or touching/steadying and/or ~contact guar d assistance as patient completes activit y. Assistance may be provided ~ throughout the activity or intermittently. ~3-Partial/Moderate Assistance-helper d oes LESS THAN HALF the effort. [place] lifts , holds or supports~trunk or limbs, but provides less than half the effort. ~2-Substantial/Maximal Assistance-helpe r does MORE THAN HALF the effort. [place] lifts or holds trunk ~or limbs and provides more than half the effort. ~0-Hfwtelbda-vjzwgc do es ALL the effort. Patient does none of the ef fort to complete the activity. ~Or, the assi stance of 2 or more helpers is required for th e patient to complete the ~ activity. ~If activity was not attempted, code reason : ~7-Patient Refused. ~9-Not Applicable-n ot attempted and the patient did not perfo rm the activity before the current ~illness, exacerbation or injury. ~10-Not Attempt ed due to Environmental Limitations-(lack of equipment, weather restraints, etc.). ~ 88-Not Attempted due to Medical Conditions or Safety Concerns. ~ ~Weight Bearing ~ ~right BK A ~ ~Exercises ~Supine Ex: Ankle pumps (LLE ), Quad Set, Glut sets, Heel Slides (LLE), Short Arc Quads, Straight leg~raise, Hip abd/ add ~Supine Reps: 20 (AAROM with SLR on LLE and hip abd/add) ~ ~Treatments ~LE exercise ~ ~Assessment ~Current Status: Poor Progr ess ~patient very lethargic, seems to be sl owly getting weaker ~ ~PT Short Term Goals ~ Short Term Goals ~Time Frame: Jan 11, 2020 ~R oll Left Right: 6 ~Sit to lyin ~Lying t o sitting on side of be: 4 ~Sit to stand: 3 ~Chair/dfd-jw-vvhne transfer: 3 ~ ~PT L mariaelena Term Goals ~Group Home Goals ~PT Long Te rm Goals Time Frame: Jan 25, 2020 ~Roll Le ft Right (QC): 6 ~Sit to Lying (QC): 6 ~Lying-Sitting on Side/Bed(QC): 6 ~Sit to Stand (QC): 5 ~Chair/Gtl-yg-Uoseh Xfer( QC): 5 ~Toilet Transfer (QC): 5 ~Car Transfer (QC): 5 ~Does the Patient Walk: No and Walkin g Goal NOT indicated ~Walk 10 feet (QC): 88 ~W alk 50ft with 2 Turns (QC): 88 ~Walk 150 ft (QC): 88 ~Walking 10ft on Uneven Surface: 88 ~1 Step (curb) (QC): 88 ~4 Steps (QC): 88 ~12 Steps (QC): 88 ~Picking up an Object (Q C): 88 ~Wheel 50 feet with 2 turns (QC: 6 ~Whe el 150 feet: 6 ~ ~PT Plan ~Problem List ~Probl em List: Activity Tolerance, Functional Strength, Safety, Balance, Gait, Transf er, Bed ~Mobility, ROM ~ ~Treatment/Plan ~Treatment Plan: Continue Plan of Care ~Treatment Plan: Bed Mobility, Educatio n, Functional Activity Farshad, Functional Strength, Group ~Therapy, Safety, Thera peutic Exercise, Transfers ~Treatment Duration : Jan 25, 2020 ~Frequency: At least 5 of 7 da ys/Wk (IRF) ~Estimated Hrs Per Day: 1.5 hours per day ~Patient and/or Family Agrees t: Ye s ~ ~Safety Risks/Education ~Patient Educat ion: Correct Positioning, Safety Issues ~Tea jacoby Recipient: Patient ~Teaching Methods: Demonstration, Discussion ~Response to Teaching: Reinforcement Needed ~ ~Time/ GCodes ~Time In: 1340 ~Time Out: 1410 ~Total B illed Treatment Time: 30 ~Total Billed Treatm ent ~1 visit ~EX 30' ~ ~ ~ ~BETTY STRONG PT Ju n 2019 14:03 ~ ~ ~<Created by BETTY SOTO K PT> ~<Electronically signed by BETTY STRONG PT> 01/10/20 0802 ~ ~ laboratory on 2020-01-09 Coronavirus Ab Qn Negative Negative PENDING (S) [facility] 09:35-0 ([id number]) 400 Glucose [Mass/Vol] 129 mg/dL High 70-110 PENDING 06-0 9-2 mg/dL [facility] 01:35-0 ([id number]) 400 Glucose [Mass/Vol] 142 mg/dL High 70-110 PENDING 06-0 9-2 mg/dL [facility] 05:29-0 ([id number]) 400 Glucose [Mass/Vol] 182 mg/dL High 70-110 PENDING 06-0 9-2 mg/dL [facility] 10:38-0 ([id number]) 400 Glucose [Mass/Vol] 168 mg/dL High 70-110 PENDING 06-0 9-2 mg/dL [facility] 15:19-0 ([id number]) 400 MRSA isol Org Negative PENDING specific cx Ql (Unsp [facility] 020 spec) [facility] 14:43-0 ([id number]) 400 not yet categorized on 2020-01-08 NAME: ELMO GARCIA ~MED REC#: [id number] PEND ING ~ ~PHYSICIAN: BETTY [facility] PT ~PT Daily Note-Current [facility] ~Subjective ~Patient in bed pre tx, agrees to (000 00) PT, has no complaints of pain, will be co-treating with OT due to ~poor patien t mobility, strength, endurance, balance, knee buckling, the need to coordinate UE and LE~during activity, decrease risk of fa lling. ~ ~Appearance ~Patient BTB post tx with nurse call, phone, tray, all needs met. CPAP on. ~ ~Mental Status ~Patient Orientation: No rmal For Age ~ ~Transfers ~SCALE: Activities may be completed with or without assistive devices. ~ ~7-Tbfsiixtho-qixulnx comple andria the activity by him/herself with no assistance from a helper. ~5-Set-up or Clean-up Assistance-helper sets up or c leans up; patient completes activity. [place] ~assists only prior to or ~ following t he activity. ~4-Supervision or Touching Assistance-helper provides verbal cues and/or touching/steadying and/or ~contact guar d assistance as patient completes activit y. Assistance may be provided ~ throughout the activity or intermittently. ~3-Partial/Moderate Assistance-helper d oes LESS THAN HALF the effort. [place] lifts , holds or supports~trunk or limbs, but provides less than half the effort. ~2-Substantial/Maximal Assistance-helpe r does MORE THAN HALF the effort. [place] lifts or holds trunk ~or limbs and provides more than half the effort. ~9-Aqslyalst-gzuekp do es ALL the effort. Patient does none of the ef fort to complete the activity. ~Or, the assi stance of 2 or more helpers is required for th e patient to complete the ~ activity. ~If activity was not attempted, code reason : ~7-Patient Refused. ~9-Not Applicable-n ot attempted and the patient did not perfo rm the activity before the current ~illness, exacerbation or injury. ~10-Not Attempt ed due to Environmental Limitations-(lack of equipment, weather restraints, etc.). ~ 88-Not Attempted due to Medical Conditions or Safety Concerns. ~Roll Left Right (QC): 6 ~Sit to Lying (QC): 3 ~Lying to Sitting/Side of Bed(Q: 3 ~Sit to Stand (QC): 2 ~Chair/Ohe-hh-Ksdfj Xfer(QC): 2 ~Transf er supine to sit, stand 2 times to get my rts on, transfer to , propel to therapy g ym, ~standing in parallel bars x4 for as lo ng as he can (approx 30 sec each time, has so me knee ~buckling), propel back to room, s tand pivot to bed and then lay down. Patient needs extra time for ~all activities due to lethargy and fatigue. ~ ~Weight Bearing ~ ~right BKA ~ ~Wheelchair Training ~Type of Wheelchair: Manual ~120'x2 SBA ~ ~Treat ments ~bed mobility and transfers, WC mobilit y, PT performed bed mobility and transfers, standing and ~standing during dressing, WC mobility, OT performed dressing, groomi ng, UE positioning and safety, ~assist with transfers. ~ ~Assessment ~Current Statu s: Poor Progress ~Getting a sore on his ri ght residual limb. ~ ~PT Short Term Goals ~ Short Term Goals ~Time Frame: Jan 11, 2020 ~R oll Left Right: 6 ~Sit to lyin ~Lying t o sitting on side of be: 4 ~Sit to stand: 3 ~Chair/vsn-la-bjnai transfer: 3 ~ ~PT L mariaelena Term Goals ~Group Home Goals ~PT Long Te rm Goals Time Frame: Jan 25, 2020 ~Roll Le ft Right (QC): 6 ~Sit to Lying (QC): 6 ~Lying-Sitting on Side/Bed(QC): 6 ~Sit to Stand (QC): 5 ~Chair/Xmo-de-Pkdtk Xfer( QC): 5 ~Toilet Transfer (QC): 5 ~Car Transfer (QC): 5 ~Does the Patient Walk: No and Walkin g Goal NOT indicated ~Walk 10 feet (QC): 88 ~W alk 50ft with 2 Turns (QC): 88 ~Walk 150 ft (QC): 88 ~Walking 10ft on Uneven Surface: 88 ~1 Step (curb) (QC): 88 ~4 Steps (QC): 88 ~12 Steps (QC): 88 ~Picking up an Object (Q C): 88 ~Wheel 50 feet with 2 turns (QC: 6 ~Whe el 150 feet: 6 ~ ~PT Plan ~Problem List ~Probl em List: Activity Tolerance, Functional Strength, Safety, Balance, Gait, Transf er, Bed ~Mobility, ROM ~ ~Treatment/Plan ~Treatment Plan: Continue Plan of Care ~Treatment Plan: Bed Mobility, Educatio n, Functional Activity Farshad, Functional Strength, Group ~Therapy, Safety, Thera peutic Exercise, Transfers ~Treatment Duration : Jan 25, 2020 ~Frequency: At least 5 of 7 da ys/Wk (IRF) ~Estimated Hrs Per Day: 1.5 hours per day ~Patient and/or Family Agrees t: Ye s ~ ~Safety Risks/Education ~Patient Educat ion: Transfer Techniques, Correct Positionin g, W/C Management, Safety Issues ~Teaching Recipient: Patient ~Teaching Methods: Demonstration, Discussion ~Response to Teaching: Reinforcement Needed ~ ~Time/ GCodes ~Time In: 0900 ~Time Out: 1000 ~Total B illed Treatment Time: 60 ~Total Billed Treatm ent ~1 visit ~FA 60' ~ ~ ~ ~BETTY STRONG PT Ju 2019 11:01 ~ ~ ~<Created by BETTY Braden PT> ~<Electronically signed by BETTY STRONG PT> 01/08/20 1101 ~ ~ NAME: ELMO GARCIA Maggy ~MED REC#: [id number] PEND ING ~ ~PHYSICIAN: [facility]TY [facility] PT ~PT Daily Note-Current [facility] ~Subjective ~Patient in bed pre tx, agrees to (000 00) PT, has no complaints of pain at rest. ~ ~Appearance ~Patient in bed post tx wit h nurse call,phone, tray, all needs met. ~ ~Mental Status ~Patient Orientation: No rmal For Age ~ ~Transfers ~SCALE: Activities may be completed with or without assistive devices. ~ ~0-Rxmwrhopeu-fxrklbs comple andria the activity by him/herself with no assistance from a helper. ~5-Set-up or Clean-up Assistance-helper sets up or c leans up; patient completes activity. [place] ~assists only prior to or ~ following t he activity. ~4-Supervision or Touching Assistance-helper provides verbal cues and/or touching/steadying and/or ~contact guar d assistance as patient completes activit y. Assistance may be provided ~ throughout the activity or intermittently. ~3-Partial/Moderate Assistance-helper d oes LESS THAN HALF the effort. [place] lifts , holds or supports~trunk or limbs, but provides less than half the effort. ~2-Substantial/Maximal Assistance-helpe r does MORE THAN HALF the effort. [place] lifts or holds trunk ~or limbs and provides more than half the effort. ~0-Dcbgqogzh-jhoskf do es ALL the effort. Patient does none of the ef fort to complete the activity. ~Or, the assi stance of 2 or more helpers is required for th e patient to complete the ~ activity. ~If activity was not attempted, code reason : ~7-Patient Refused. ~9-Not Applicable-n ot attempted and the patient did not perfo rm the activity before the current ~illness, exacerbation or injury. ~10-Not Attempt ed due to Environmental Limitations-(lack of equipment, weather restraints, etc.). ~ 88-Not Attempted due to Medical Conditions or Safety Concerns. ~Roll Left Right (QC): 6 ~Pat ient had to adjust in bed and scoot up a lit tle. ~ ~Weight Bearing ~ ~right BKA ~ ~Exercis es ~Supine Ex: Ankle pumps (LLE), Quad Set , Glut sets, Heel Slides, Short Arc Quads, Str aight leg ~raise, Hip abd/add ~Supine Reps: 2 0 ~Patient needed rest break between ever y exercise. ~ ~Treatments ~LE exercise ~ ~Assessment ~Current Status: Poor Progr ess ~poor endurance and strength, needs ass ist with SLR ~ ~PT Short Term Goals ~Short Term Goals ~Time Frame: Jan 11, 2020 ~Roll L eft Right: 6 ~Sit to lyin ~Lying to sit ting on side of be: 4 ~Sit to stand: 3 ~Chair/ykv-fy-gapcy transfer: 3 ~ ~PT L mariaelena Term Goals ~Pulp Mixer Goals ~PT Long Te rm Goals Time Frame: Jan 25, 2020 ~Roll Le ft Right (QC): 6 ~Sit to Lying (QC): 6 ~Lying-Sitting on Side/Bed(QC): 6 ~Sit to Stand (QC): 5 ~Chair/Ggl-ky-Jkgfa Xfer( QC): 5 ~Toilet Transfer (QC): 5 ~Car Transfer (QC): 5 ~Does the Patient Walk: No and Walkin g Goal NOT indicated ~Walk 10 feet (QC): 88 ~W alk 50ft with 2 Turns (QC): 88 ~Walk 150 ft (QC): 88 ~Walking 10ft on Uneven Surface: 88 ~1 Step (curb) (QC): 88 ~4 Steps (QC): 88 ~12 Steps (QC): 88 ~Picking up an Object (Q C): 88 ~Wheel 50 feet with 2 turns (QC: 6 ~Whe el 150 feet: 6 ~ ~PT Plan ~Problem List ~Probl em List: Activity Tolerance, Functional Strength, Safety, Balance, Gait, Transf er, Bed ~Mobility, ROM ~ ~Treatment/Plan ~Treatment Plan: Continue Plan of Care ~Treatment Plan: Bed Mobility, Educatio n, Functional Activity Farshad, Functional Strength, Group ~Therapy, Safety, Thera peutic Exercise, Transfers ~Treatment Duration : Jan 25, 2020 ~Frequency: At least 5 of 7 da ys/Wk (IRF) ~Estimated Hrs Per Day: 1.5 hours per day ~Patient and/or Family Agrees t: Ye s ~ ~Safety Risks/Education ~Patient Educat ion: Correct Positioning, Safety Issues ~Tea jacoby Recipient: Patient ~Teaching Methods: Demonstration, Discussion ~Response to Teaching: Reinforcement Needed ~ ~Time/ GCodes ~Time In: 1300 ~Time Out: 1330 ~Total B illed Treatment Time: 30 ~Total Billed Treatm ent ~1 visit ~EX 30' ~ ~ ~ ~BETTY STRONG PT Ju n 2019 13:27 ~ ~ ~<Created by BETTY SOTO K PT> ~<Electronically signed by BETTY STRONG PT> 01/08/20 1420 ~ ~ NAME: ELMO GARCIA ~MED REC#: [id number] PEND ING ~ ~PHYSICIAN: MARIA A MARIE ~OT Current Status-Daily N [facility] Note ~Subjective ~Pt sleeping with CPap on in (000 00) bed. Pt woke to calling name a few time s. Pt agrees to therapy. ~ ~Mental Status/Obj ective ~Patient Orientation: Person, Place, Ti me, Situation ~ ~ADL-Treatment ~Therapy Cod e Descriptions/Definitions ~ ~Functional [place] Measure: ~0=Not Assessed/N A 4=Minimal Assistance ~1=Total Assistanc e 5=Supervision or Setup ~2=Maximal [place]any tance 6=Modified [place] ~3=Moderate Assistance 7=Complete IndependenceSCALE : Activities may be completed with or wit hout ~assistive devices. ~ ~4-Ydfegphguu-cit ient completes the activity by him/herself w ith no assistance from a helper. ~5-Set-up or Clean-up Assistance-helper sets up or c leans up; patient completes activity. [place] ~assists only prior to or ~ following t he activity. ~4-Supervision or Touching Assistance-helper provides verbal cues and/or touching/steadying and/or ~contact guar d assistance as patient completes activit y. Assistance may be provided ~ throughout the activity or intermittently. ~3-Partial/Moderate Assistance-helper d oes LESS THAN HALF the effort. [place] lifts , holds or supports~trunk or limbs, but provides less than half the effort. ~2-Substantial/Maximal Assistance-helpe r does MORE THAN HALF the effort. [place] lifts or holds trunk ~or limbs and provides more than half the effort. ~4-Jonxouniy-tgdmqn do es ALL the effort. Patient does none of the ef fort to complete the activity. ~Or, the assi stance of 2 or more helpers is required for th e patient to complete the ~ activity. ~If activity was not attempted, code reason : ~7-Patient Refused. ~9-Not Applicable-n ot attempted and the patient did not perfo rm the activity before the current ~illness, exacerbation or injury. ~10-Not Attempt ed due to Environmental Limitations-(lack of equipment, weather restraints, etc.). ~ 88-Not Attempted due to Medical Conditions or Safety Concerns. ~ ~Other Treatment ~Pt given medium resistance theraband for exercises in r oom. Pt completed own exercise routine. ~Completing each one 3 sets 10 reps. Re covery breaks between each set. After session, pt lying in ~bed with call light/phone in reach. All needs met in room. ~ ~OT Short Term Goals ~Short Term Goals ~Time Frame: Jan 17, 2020 ~Shower/bathe self: 2 ~ ~OT Pulp Mixer G oals ~Group Home Goals ~Time Frame: Jan 31 ~Eating (QC): 6 ~Oral Hygiene (QC): 6 ~Toileting Hygiene (QC): 4 ~Shower/Bath e Self (QC): 3 ~Upper Body Dressing (QC): 5 ~L ower Body Dressing (QC): 3 ~On/Off Footwear (QC): 2 ~Additional Goals: 1-Demonstrate ADL Tasks, 2-Verbalize Understanding, 3-ImproveStrength/Farshad ~1=Demonstrate adherence to instructed precautions dur ing ADL tasks. ~2=Patient will verbalize/demonstrate understanding of assistive devices/modifications for ADL . ~3=Patient will improve strength/tolera nce for activity to enable patient to perfo rm ADL's. ~ ~OT Education/Plan ~Problem List/Assessment ~Assessment: Decreased Activ Tolerance, Decreased UE Strength, Impai red Self-Care Skills ~ ~Discharge Recommend ations ~Plan/Recommendations: Continue POC ~ ~Treatment Plan/Plan of Care ~Patient w ould benefit from OT for education, treatmen t and training to promote independence in ~AD L's, mobility, safety and/or upper extremity function for ADL's. ~Plan of Care: ADL Retraining, Functional Mobility, Group Exercise/Act as Ind, UE Funct Exercise/ Act ~Treatment Duration: Feb 01, 2020 ~Frequ ency: At least 5 of 7 days/Wk (IRF) ~Estimate d Hrs Per Day: 1.5 hours per day ~Agreement: Yes ~Rehab Potential: Guarded ~ ~Time/GCode s ~Start Time: 13:30 ~Stop Time: 14:00 ~T otal Time Billed (hr/min): 30 ~Billed Treatm ent Time ~1 visit-EX 2 (30 min) ~ ~ ~ ~MARIA A KEENE Jan 08, 2020 14:06 ~ ~ ~<Created by MARIA A VYAS> ~<Electronically signed by MARIA A VYAS> 01/08/20 1406 ~ ~ NAME: ELMO GARCIA Maggy ~MED REC#: [id number] PEND ING ~ ~PHYSICIAN: MARIA A MARIE ~OT Current Status-Daily N [facility] Note ~Subjective ~Pt alert, lying in bed. Pt (0000 0) agrees to therapy. No c/o pain only dizziness. Pt sat still to allow ~dizzi ness to dissipate. ~ ~Mental Status/Objectiv e ~Patient Orientation: Person, Place, Ti me, Situation ~ ~ADL-Treatment ~See PT note s for pt's mobility progress. Assist x2 to do n pants, assist to thread over feet then ~assist x1 to stand while assist x1 to hike over hips. Pt propelled w/c to bathroom to complete oral~care and grooming, mod I. ~Therapy Code Descriptions/Definitions ~ ~Functional [place] Measure: ~0=No t Assessed/NA 4=Minimal Assistance ~1=Tot al Assistance 5=Supervision or Setup ~2=Ma ximal Assistance 6=Modified [place] ~3=Moderate Assistance 7=Complete IndependenceSCALE: Activities may be completed with or without ~assistive de vices. ~ ~7-Lffvcfokph-ckksyiz completes the activity by him/herself with no assista nce from a helper. ~5-Set-up or Clean-up Assistance-helper sets up or cleans up; patient completes activity. [place] ~ass ists only prior to or ~ following the activi ty. ~4-Supervision or Touching Assistance-h elper provides verbal cues and/or touching/steadying and/or ~contact guar d assistance as patient completes activit y. Assistance may be provided ~ throughout the activity or intermittently. ~3-Partial/Moderate Assistance-helper d oes LESS THAN HALF the effort. [place] lifts , holds or supports~trunk or limbs, but provides less than half the effort. ~2-Substantial/Maximal Assistance-helpe r does MORE THAN HALF the effort. [place] lifts or holds trunk ~or limbs and provides more than half the effort. ~5-Ednyaiiaa-xtqkla do es ALL the effort. Patient does none of the ef fort to complete the activity. ~Or, the assi stance of 2 or more helpers is required for th e patient to complete the ~ activity. ~If activity was not attempted, code reason : ~7-Patient Refused. ~9-Not Applicable-n ot attempted and the patient did not perfo rm the activity before the current ~illness, exacerbation or injury. ~10-Not Attempt ed due to Environmental Limitations-(lack of equipment, weather restraints, etc.). ~ 88-Not Attempted due to Medical Conditions or Safety Concerns. ~Oral Hygiene (QC): 6 ~Lower Body Dressing (QC): 1 ~ ~Other Treatment ~OT /PT co-treat ([id number]), skills of 2 clini cians required due to medical complexity, uns afe ~mobility and low activity tolerance. P T working in transfers, mobility and L LE strengthening. OT ~working on functiona l transfers, ADLs, UE strengthening. Pt propelled w/c slowly with multiple ~rec overy breaks from room to therapy gym. Pt wor adan on standing at parallel bars, assist to ~stabilize self during sit to stand pha se then pt stood for 3 min each time. Pt propelled self back~to room. Using a fo rward facing to bed, pt pulled to stand with bed rails, placed stump onto bed ~then SPT to sit down on bed. After therapy pt lying in bed with call light/phone in reach. All ~ne eds met in room. ~ ~OT Short Term Goals ~Sh ort Term Goals ~Time Frame: Jan 17, 2020 ~Shower/bathe self: 2 ~ ~OT Pulp Mixer G oals ~Pulp Mixer Goals ~Time Frame: Jan 31 20 ~Eating (QC): 6 ~Oral Hygiene (QC): 6 ~Toileting Hygiene (QC): 4 ~Shower/Bath e Self (QC): 3 ~Upper Body Dressing (QC): 5 ~L ower Body Dressing (QC): 3 ~On/Off Footwear (QC): 2 ~Additional Goals: 1-Demonstrate ADL Tasks, 2-Verbalize Understanding, 3-ImproveStrength/Farshda ~1=Demonstrate adherence to instructed precautions dur ing ADL tasks. ~2=Patient will verbalize/demonstrate understanding of assistive devices/modifications for ADL . ~3=Patient will improve strength/tolera nce for activity to enable patient to perfo rm ADL's. ~ ~OT Education/Plan ~Problem List/Assessment ~Assessment: Decreased Activ Tolerance, Decreased UE Strength, Impai red Coordination, Impaired Funct~Balance, Impaired Self-Care Skills, Restricted F unct UE ROM ~ ~Discharge Recommendations ~Plan/Recommendations: Continue POC ~ ~Treatment Plan/Plan of Care ~Patient w ould benefit from OT for education, treatmen t and training to promote independence in ~AD L's, mobility, safety and/or upper extremity function for ADL's. ~Plan of Care: ADL Retraining, Functional Mobility, Group Exercise/Act as Ind, UE Funct Exercise/ Act ~Treatment Duration: Feb 01, 2020 ~Frequ ency: At least 5 of 7 days/Wk (IRF) ~Estimate d Hrs Per Day: 1.5 hours per day ~Agreement: Yes ~Rehab Potential: Guarded ~ ~Time/GCode s ~Start Time: 09:00 ~Stop Time: 10:00 ~T otal Time Billed (hr/min): 60 ~Billed Treatm ent Time ~1 visit-ADL 1 (15 min) FA 3 (45 m in) co-treat with PT [id number] ~ ~ ~ ~MARIA A KEENE Jan 08, 2020 09:53 ~ ~ ~<Created by MARIA A VYAS> ~<Electronically signed by MARIA A VYAS> 01/08/20 1144 ~ ~ NAME: ELMO GARCIA ~MED REC#: [id number] PEND ING ~ ~PHYSICIAN: GODFREY JORDAN DO ~Subjective ~HPI/CC On N [facility] Admission ~Date Seen by Provider: Jan 08, 2020 (000 00) ~Time Seen by Provider: 09:30 ~Subjective/Events-last exam ~Poor james vatpooja continues ~CPAP during naps and at bedt nini ~Dressing changes of his toes seems to be going pretty well ~Hgb 9.9, Creatinine 1.84, INR 2.0, so will discontinue the Loveno x bridge and change the Coumadin to~8.0 M g daily ~Checked meds and labs ~Checked t herapy notes ~Conferred with RN ~ ~Review of S ystems ~Neurological: Weakness, Numbness, Incoordination ~ ~Objective ~Exam ~Chey l Signs ~ ~Vital Signs ~ ~ ~ Date Time Te mp Pulse Resp B/P (MAP) Pulse Ox O2 Delive ry O2 Flow Rate FiO2 ~ ~01/08/20 18:36 91 NIV C PAP 4.00 ~ ~01/08/20 18:06 36.8 75 18 127/77 (94) ~ ~01/07/20 18:48 36 ~ ~Capillary Refill : Less Than 3 Seconds ~General Appearance: No Apparent Distress, WD/WN, Chronically i ll, Obese ~HEENT: PERRL/EOMI, Normal ENT Inspection, Pharynx Normal ~Neck: Full Range of Motion, Normal Inspection, Non Tende r, Supple, Carotid Bruit ~Respiratory: Leslie st Non Tender, Lungs Clear, Normal Breath Soun ds, No Accessory Muscle Use, No ~Respiratory Distress ~Cardiovascular: Regular Rate, Rhythm, No Edema, No Gallop, No JVD, No Murmur, Normal Peripheral ~Pulses ~Gastrointestinal: Normal Bowel Sounds, No Organomegaly, No Pulsatile Mass, Non Te nder, Soft ~Back: Normal Inspection, No CVA Tenderness, No Vertebral Tenderness ~Extremity: Normal Capillary Refill, No rmal Inspection, Normal Range of Motion, Non Tender, No Calf ~Tenderness, No Pedal E kathleen, Other (right AKA) ~Neurologic/Psychiatr ic: Alert, Oriented x3, No Motor/Sensory Deficits, Normal Mood/Affect, cloth presser II-~X II Norm as Tested, Motor Weakness (general ized weakness left leg) ~Skin: Normal Color, Warm/Dry ~Lymphatic: No Adenopathy ~ ~Results/Procedures ~Lab ~Laboratory Te sts ~01/08/20 05:23 ~ ~ ~Patient resulted lab s reviewed. ~ ~FIM ~Transfers ~Therapy Co de Descriptions/Definitions ~ ~Functional [place] Measure: ~0=Not Assessed/N A 4=Minimal Assistance ~1=Total Assistanc e 5=Supervision or Setup ~2=Maximal Hany tance 6=Modified [place] ~3=Moderate Assistance 7=Complete IndependenceSCALE : Activities may be completed with or wit hout ~assistive devices. ~ ~9-Xzdhwdkwee-flj ient completes the activity by him/herself w ith no assistance from a helper. ~5-Set-up or Clean-up Assistance-helper sets up or c leans up; patient completes activity. [place] ~assists only prior to or ~ following t he activity. ~4-Supervision or Touching Assistance-helper provides verbal cues and/or touching/steadying and/or ~contact guar d assistance as patient completes activit y. Assistance may be provided ~ throughout the activity or intermittently. ~3-Partial/Moderate Assistance-helper d oes LESS THAN HALF the effort. [place] lifts , holds or supports~trunk or limbs, but provides less than half the effort. ~2-Substantial/Maximal Assistance-helpe r does MORE THAN HALF the effort. [place] lifts or holds trunk ~or limbs and provides more than half the effort. ~8-Tflcawkin-nzejyu do es ALL the effort. Patient does none of the ef fort to complete the activity. ~Or, the assi stance of 2 or more helpers is required for th e patient to complete the ~ activity. ~If activity was not attempted, code reason : ~7-Patient Refused. ~9-Not Applicable-n ot attempted and the patient did not perfo rm the activity before the current ~illness, exacerbation or injury. ~10-Not Attempt ed due to Environmental Limitations-(lack of equipment, weather restraints, etc.). ~ 88-Not Attempted due to Medical Conditions or Safety Concerns. ~Roll Left to Right (QC): 6 ~ Sit to Lying (QC): 4 ~Sit to Stand (QC): 2 ~Chair/Yzw-ei-Ovnoq Xfer(QC): 2 ~Car Tr sarafer (QC): 1 ~ ~Gait Training ~Does the Nai ent Walk?: No and Walking Goal NOT indicate d ~Walk 10 feet (QC): 88 ~Walk 50 ft with 2 Turns(QC): 88 ~Walk 150 ft (QC): 88 ~Wa lking 10ft/uneven surface-QC: 88 ~ ~Wheelchai r Training ~Does the Pt Use a Wheelchair? : Yes ~Wheel 50 ft with 2 turns (QC): 1 ~Whee l 150 ft (QC): 1 ~Type of Wheelchair: Manual ~ ~Stair Training ~1 Step (curb) (QC): 88 ~4 Steps (QC): 88 ~12 Steps (QC): 88 ~ ~Ba tony ~Picking up an Object (QC): 88 ~ ~ADL-Treatment ~Eating (QC): 5 (set up. OT opened sugar packet and poured into tea . Pt able to picket labor union bowl and ~bring food to his mouth.) ~Oral Hygiene (QC): 6 ~Shower/B athe Self (QC): 2 ~Upper Body Dressing (QC): 5 ~Lower Body Dressing (QC): 1 ~On/Off Fo otwear (QC): 2 ~Toileting Hygiene (QC): 1 ~Chris let Transfer (QC): 1 ~ ~Assessment/Plan ~Assessment and Plan ~Assess Plan/Chief Complaint ~Assessment: ~Debility ~Falls ~DM OOC ~Left foot wound ~h/o right BKA ~CA D ~CABG hx ~PVD ~Coumadin treatment ~Azra pheral neuropathy ~CKD ~CHF ~Poor motivation ~ TREE ~[place] of [place] stenosis maintained o n Coumadin ~ ~Plan: ~IRF protocol ~Home m eds ~Monitor INR ~Sugar management ~Lovenox bridge ~INR prn ~ ~(1) Debility ~(2) Di abetes mellitus, insulin dependent (IDDM), uncontrolled ~Status: Acute ~(3) TREE (obstructive sleep apnea) ~Status: 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 kirill ~(4) Renal insufficiency ~Status: Acute ~(5) CAD (coronary artery disease) ~Status: Chronic ~(6) Hypoxia ~Status: Acute ~ ~ ~ ~GODFREY ZEPEDA DO Jan 08, 2020 09:38 ~ ~ ~<Created by GODFREY ZEPEDA DO> ~<Electronically signed by GODFREY GEORGE DO> 01/08/202020 ~ ~ laboratory on 2020-01-08 Albumin [Mass/Vol] 3.2 g/dL Negative 3.2-4.5 PENDING 06-0 8-2 g/dL [facility] 01:23-0 ([id number]) 400 ALP [Catalytic 129 U/L Negative 40-136 U/L PENDING 06-08-2 activity/Vol] [facility] 0[facility] 01:23-0 ([id number]) 400 ALT [Catalytic 27 U/L Negative 0-55 U/L PENDING -08-2 activity/Vol] [facility] 020 [facility] 01:23-0 ([id number]) 400 Anion gap 12 mmol/L Negative 5-14 PENDING 06-08-2 [Moles/Vol] mmol/L [facility] 0[facility] 01:23-0 ([id number]) 400 AST [Catalytic 25 U/L Negative 5-34 U/L PENDING 06-08-2 activity/Vol] [facility] 020 [facility] 01:23-0 ([id number]) 400 Basophils (Bld) 0.0 10*3/uL Negative 0.0-0.1 PENDING 06-08 -2 [#/Vol] 10*3/uL [facility] [address] [place] [address] 01:23-0 ([id number]) 400 Basophils/100 WBC 0 % Negative 0-10 % PENDING 06-08 -2 (Bld) [facility] 0[facility] 01:23-0 ([id number]) 400 Bilirubin [Mass/Vol] 0.4 mg/dL Negative 0.1-1.0 PENDING 06 -08-2 mg/dL [facility] 0[facility] 01:23-0 ([id number]) 400 Calcium [Mass/Vol] 8.6 mg/dL Negative 8.5-10.1 PENDING 06-0 8-2 mg/dL [facility] 01:23-0 ([id number]) 400 Calcium [Mass/Vol] 9.2 mg/dL Negative 8.5-10.1 PENDING 06-0 8-2 mg/dL [facility] 01:23-0 ([id number]) 400 Chloride [Moles/Vol] 103 mmol/L Negative 98-107 PENDING 0 6-08-2 mmol/L [facility] 01:23-0 ([id number]) 400 CO2 [Moles/Vol] 22 mmol/L Negative 21-32 PENDING 06-08-2 mmol/L [facility] 01:23-0 ([id number]) 400 Creatinine 1.84 mg/dL High 0.60-1.30 PENDING 06-08-2 [Mass/Vol] mg/dL [facility] 01:23-0 ([id number]) 400 Creatinine and 37 PENDING 06-08-2 Glomerular [facility] 020 filtration [facility] 01:23-0 rate.predicted panel ([id number]) 400 - Serum, Plasma or Blood Eosinophils (Bld) 0.2 10*3/uL Negative 0.0-0.3 PENDING 06- 08-2 [#/Vol] 10*3/uL [facility] 01:23-0 ([id number]) 400 Eosinophils/100 WBC 2 % Negative 0-10 % PENDING 06- 08-2 (Bld) [facility] 01:23-0 ([id number]) 400 Erythrocyte 15.1 % High 10.0-14.5 PENDING 06-08-2 distribution width % [facility] 020 (RBC) [Ratio] [facility] 01:23-0 ([id number]) 400 Glucose [Mass/Vol] 72 mg/dL Negative 70-105 PENDING 06-0 8-2 mg/dL [facility] 01:23-0 ([id number]) 400 Glucose [Mass/Vol] 84 mg/dL Negative 70-110 PENDING 06-0 8-2 mg/dL [facility] 01:23-0 ([id number]) 400 Glucose [Mass/Vol] 181 mg/dL High 70-110 PENDING 06-0 8-2 mg/dL [facility] 06:12-0 ([id number]) 400 Glucose [Mass/Vol] 222 mg/dL High 70-110 PENDING 06-0 8-2 mg/dL [facility] 020 [facility] 10:33-0 ([id number]) 400 Glucose [Mass/Vol] 186 mg/dL High 70-110 PENDING 06-0 8-2 mg/dL [facility] 15:39-0 ([id number]) 400 Hematocrit (Bld) 30 % Low 40-54 % PENDING 08- 2 [Volume fraction] [facility] 01:23-0 ([id number]) 400 Hemoglobin (Bld) 9.9 g/dL Low 13.3-17.7 PENDING -08- 2 [Mass/Vol] g/dL [facility] 020 [facility] 01:23-0 ([id number]) 400 INR Coag (Platelet 2.0 High 0.8-1.4 PENDING 06-0 8-2 poor plasma or [facility] 020 blood) [Relative [facility] 01:23-0 time] ([id number]) 400 Lymphocytes (Bld) 1.0 10*3/uL Negative 1.0-4.0 PENDING -2 [#/Vol] 10*3 [facility] [address] [place] [address] 01:23-0 ([id number]) 400 Lymphocytes/100 WBC 15 % Negative 12-44 % PENDING 08-2 (Bld) [facility] 01:23-0 ([id number]) 400 MCH (RBC) [Entitic 28 pg Negative 25-34 pg PENDING 06-0 8-2 mass] [facility] 01:23-0 ([id number]) 400 MCHC (RBC) 33 g/dL Negative 32-36 g/dL PENDING -08-2 [Mass/Vol] [facility] 01:23-0 ([id number]) 400 MCV (RBC) [Entitic 86 Negative 80-99 PENDING 06-0 8-2 vol] [foz_us] [facility] 01:23-0 ([id number]) 400 Monocytes (Bld) 0.9 10*3/uL Negative 0.0-1.0 PENDING -08 -2 [#/Vol] 10*3 [facility] 01:23-0 ([id number]) 400 Monocytes/100 WBC 13 % High 0-12 % PENDING 01-072 (Bld) [facility] 01:23-0 ([id number]) 400 Neutrophils (Bld) 4.7 10*3/uL Negative 1.8-7.8 PENDING 2 [#/Vol] 10*3 [facility] 01:23-0 ([id number]) 400 Neutrophils/100 WBC 70 % Negative 42-75 % PENDING 2 (Bld) [facility] [address] [place] [address] 01:23-0 ([id number]) 400 Platelet mean volume 11.1 High 7.4-10.4 PENDING 2 (Bld) [Entitic vol] [foz_us] [facility] 01:23-0 ([id number]) 400 Platelets (Bld) 149 10*3/uL Negative 130-400 PENDING 01-07 [#/Vol] 10*3/uL [address] 01:23-0 ([id number]) 400 Potassium 4.0 mmol/L Negative 3.6-5.0 PENDING 2 [Moles/Vol] mmol/L [facility] [address] [place] [address] 01:23-0 ([id number]) 400 Protein [Mass/Vol] 6.3 g/dL Low 6.4-8.2 PENDING 06-0 8-2 g/dL [facility] 020 [facility] 01:23-0 ([id number]) 400 PT Coag (PPP) [Time] 24.0 s High 12.2-14.7 PENDING -2 s [facility]20 [facility] 01:23-0 ([id number]) 400 RBC (Bld) [#/Vol] 3.52 10*6/uL Low 4.35-5.85 PENDING 2 10*6/uL [facility] 01:23-0 (03420) 400 Sodium [Moles/Vol] 137 mmol/L Negative 135-145 PENDING -2 mmol/L [facility] 01:23-0 ([id number]) 400 Urea nitrogen 35 mg/dL High 7-18 mg/dL PENDING 06-08-2 [Mass/Vol] [facility] 020 [facility] 01:23-0 ([id number]) 400 Urea 19 mg/mg PENDING nitrogen/Creatinine [facility] 020 [Mass ratio] [facility] 01:23-0 ([id number]) 400 WBC (Bld) [#/Vol] 6.8 10*3/uL Negative 4.3-11.0 PENDING 03-03 10*3/uL [facility] 01:23-0 ([id number]) 400 not yet categorized on 2020-01-07 NAME: ELMO GARCIA ~MED REC#: [id number] PEND ING ~ ~PHYSICIAN: GODFREY JORDAN DO ~Subjective ~HPI/CC On [facility] Admission ~Date Seen by Provider: Jan 07, 2020 (000 00) ~Time Seen by Provider: 11:45 ~Subjective/Events-last exam ~Patient d oing well, sleeps most of the time and told nurse he will sleep all day today since no ~t herapy ~INR 1.8 today so maintained on increas ed Coumadin dose and maintained on Lovenox 1mg/kg coverage ~until therapeutic and will check level Wednesday ~PCP placed him on Coumadin due to false pass of tse stenos is 1 year ago ~Large BM today finally ~No pa in reported ~Limited motivation ~CPAP ever y nap and at night ~Checked meds and labs ~Ch ecked therapy notes ~Conferred with RN ~ ~Rev iew of Systems ~General: Fatigue ~Neurological : Weakness, Incoordination ~ ~Objective ~ Exam ~Vital Signs ~ ~Vital Signs ~ ~ ~ Date Time Temp Pulse Resp B/P (MAP) Pulse Ox O2 Delivery O2 Flow Rate FiO2 ~ ~01/07/20 09 :17 NIV CPAP ~ ~01/07/20 06:30 37.2 72 20 137 /73 (94) 92 ~ ~01/06/20 21:00 4.00 ~ ~01/06/20 19:22 36 ~ ~Capillary Refill : Less Than 3 Se conds ~General Appearance: No Apparent Distre ss, WD/WN, Chronically ill, Obese ~HEENT: PERRL/EOMI, Normal ENT Inspection, Phar ynx Normal ~Neck: Full Range of Motion, Nor mal Inspection, Non Tender, Supple, Carotid Bruit ~Respiratory: Chest Non Tender, Lungs C lear, Normal Breath Sounds, No Accessory Musc le Use, No ~Respiratory Distress ~Cardiovascular: Regular Rate, Rhythm, No Edema, No Gallop, No JVD, No Murmur, No rmal Peripheral ~Pulses ~Gastrointestinal: N ormal Bowel Sounds, No Organomegaly, No Pulsa tile Mass, Non Tender, Soft ~Back: Normal Inspection, No CVA Tenderness, No Verte bral Tenderness ~Extremity: Normal Capillary Refill, Normal Inspection, Normal Range of Motion, Non Tender, No Calf ~Tenderness , No Pedal Edema, Other (right AKA) ~Neurologic/Psychiatric: Alert, Oriente d x3, No Motor/Sensory Deficits, Normal Mood/Affect, cloth presser II-~XII Norm as Tested , Motor Weakness (generalized weakness le ft leg) ~Skin: Normal Color, Warm/Dry ~Lymphatic: No Adenopathy ~ ~Results/Procedures ~Lab ~Patient resul lamin labs reviewed. ~ ~FIM ~Transfers ~Thera py Code Descriptions/Definitions ~ ~Functi onal [place] Measure: ~0=Not Assessed/N A 4=Minimal Assistance ~1=Total Assistanc e 5=Supervision or Setup ~2=Maximal [place]any tance 6=Modified [place] ~3=Moderate Assistance 7=Complete IndependenceSCALE : Activities may be completed with or wit hout ~assistive devices. ~ ~3-Deyqflmjiu-obb ient completes the activity by him/herself w ith no assistance from a helper. ~5-Set-up or Clean-up Assistance-helper sets up or c leans up; patient completes activity. [place] ~assists only prior to or ~ following t he activity. ~4-Supervision or Touching Assistance-helper provides verbal cues and/or touching/steadying and/or ~contact guar d assistance as patient completes activit y. Assistance may be provided ~ throughout the activity or intermittently. ~3-Partial/Moderate Assistance-helper d oes LESS THAN HALF the effort. [place] lifts , holds or supports~trunk or limbs, but provides less than half the effort. ~2-Substantial/Maximal Assistance-helpe r does MORE THAN HALF the effort. [place] lifts or holds trunk ~or limbs and provides more than half the effort. ~3-Mjthmusfb-bxqhat do es ALL the effort. Patient does none of the ef fort to complete the activity. ~Or, the assi stance of 2 or more helpers is required for th e patient to complete the ~ activity. ~If activity was not attempted, code reason : ~7-Patient Refused. ~9-Not Applicable-n ot attempted and the patient did not perfo rm the activity before the current ~illness, exacerbation or injury. ~10-Not Attempt ed due to Environmental Limitations-(lack of equipment, weather restraints, etc.). ~ 88-Not Attempted due to Medical Conditions or Safety Concerns. ~Roll Left to Right (QC): 6 ~ Sit to Lying (QC): 4 ~Sit to Stand (QC): 2 ~Chair/Uab-eu-Yygif Xfer(QC): 2 ~Car Tr ansfer (QC): 1 ~ ~Gait Training ~Does the Nai ent Walk?: No and Walking Goal NOT indicate d ~Walk 10 feet (QC): 88 ~Walk 50 ft with 2 Turns(QC): 88 ~Walk 150 ft (QC): 88 ~Wa lking 10ft/uneven surface-QC: 88 ~ ~Wheelchai r Training ~Does the Pt Use a Wheelchair? : Yes ~Wheel 50 ft with 2 turns (QC): 1 ~Whee l 150 ft (QC): 1 ~Type of Wheelchair: Manual ~ ~Stair Training ~1 Step (curb) (QC): 88 ~4 Steps (QC): 88 ~12 Steps (QC): 88 ~ ~Ba tony ~Picking up an Object (QC): 88 ~ ~ADL-Treatment ~Eating (QC): 5 (set up. OT opened sugar packet and poured into tea . Pt able to picket labor union bowl and ~bring food to his mouth.) ~Oral Hygiene (QC): 6 ~Shower/B athe Self (QC): 2 ~Upper Body Dressing (QC): 5 ~Lower Body Dressing (QC): 1 ~On/Off Fo otwear (QC): 2 ~Toileting Hygiene (QC): 1 ~Chris let Transfer (QC): 1 ~ ~Assessment/Plan ~Assessment and Plan ~Assess Plan/Chief Complaint ~Assessment: ~Debility ~Falls ~DM OOC ~Left foot wound ~h/o right BKA ~CA D ~CABG hx ~PVD ~Coumadin treatment ~Azra pheral neuropathy ~CKD ~CHF ~Poor motivation ~ TREE ~[place] of [place]se stenosis maintained o n Coumadin ~ ~Plan: ~IRF protocol ~Home m eds ~Monitor INR ~Sugar management ~Lovenox bridge ~INR Wednesday ~ ~(1) Debility ~(2 ) Diabetes mellitus, insulin dependent (I DDM), uncontrolled ~Status: Acute ~(3) TREE (obstructive sleep apnea) ~Status: 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 kirill ~(4) Renal insufficiency ~Status: Acute ~(5) CAD (coronary artery disease) ~Status: Chronic ~(6) Hypoxia ~Status: Acute ~ ~ ~ ~GODFREY ZEPEDA DO Jan 07, 2020 11:48 ~ ~ ~<Created by GODFREY ZEPEDA DO> ~<Electronically signed by GODFREY GEORGE DO> 01/07/20 1458 ~ ~ laboratory on 2020-01-07 Glucose [Mass/Vol] 132 mg/dL High 70-110 PENDING 06-0 7-2 mg/dL [facility] 02:12-0 ([id number]) 400 Glucose [Mass/Vol] 170 mg/dL High 70-110 PENDING 06-0 7-2 mg/dL [facility] 06:11-0 ([id number]) 400 Glucose [Mass/Vol] 195 mg/dL High 70-110 PENDING 06-0 7-2 mg/dL [facility] 12:01-0 ([id number]) 400 Glucose [Mass/Vol] 226 mg/dL High 70-110 PENDING 06-0 7-2 mg/dL [facility] 14:58-0 ([id number]) 400 INR Coag (Platelet 1.8 High 0.8-1.4 PENDING 06-0 7-2 poor plasma or [facility] 020 blood) [Relative [facility] 00:30-0 time] ([id number]) 400 PT Coag (PPP) [Time] 21.4 s High 12.2-14.7 PENDING 06 -07-2 s [facility] 00:30-0 ([id number]) 400 not yet categorized on 2020-01-06 NAME: ELMO GARCIA ~MED REC#: [id number] PEND ING ~ ~PHYSICIAN: PETEY LONDON VEHICLE DYNAMICS ENGINEER ~PT Daily Note-Current [facility] ~Subjective ~Pt in bed resting, upon arrival. (000 00) Pt agrees to PT. ~ ~Pain ~ ~ Numeric Pa in Scale: 0-No Pain ~ Location: No Pain Re ported ~ ~Mental Status ~Patient Orientation: Person, Place, Time, Situation ~ ~Trans fers ~SCALE: Activities may be completed wit h or without assistive devices. ~ ~2-Thqeusoxqv-bzjeigj completes the act ivity by him/herself with no assistance from a helper. ~5-Set-up or Clean-up Assistance-helper sets up or cleans up; patient completes activity. [place] ~ass ists only prior to or ~ following the activi ty. ~4-Supervision or Touching Assistance-h elper provides verbal cues and/or touching/steadying and/or ~contact guar d assistance as patient completes activit y. Assistance may be provided ~ throughout the activity or intermittently. ~3-Partial/Moderate Assistance-helper d oes LESS THAN HALF the effort. [place] lifts , holds or supports~trunk or limbs, but provides less than half the effort. ~2-Substantial/Maximal Assistance-helpe r does MORE THAN HALF the effort. [place] lifts or holds trunk ~or limbs and provides more than half the effort. ~1-Psknydtkw-wvlehz do es ALL the effort. Patient does none of the ef fort to complete the activity. ~Or, the assi stance of 2 or more helpers is required for th e patient to complete the ~ activity. ~If activity was not attempted, code reason : ~7-Patient Refused. ~9-Not Applicable-n ot attempted and the patient did not perfo rm the activity before the current ~illness, exacerbation or injury. ~10-Not Attempt ed due to Environmental Limitations-(lack of equipment, weather restraints, etc.). ~ 88-Not Attempted due to Medical Conditions or Safety Concerns. ~ ~Weight Bearing ~ ~right BK A ~ ~Exercises ~Supine Ex: Ankle pumps (LLE only), Quad Set, Heel Slides (L LE only ), Short Arc Quads (L LE only),~Straight l eg raise (PROM on L LE d/t inability to co mplete on own), Hip abd/add ~Supine Reps: 20 ~ ~Treatments ~Supine ex completed. Pt re quires PROM for SLR on L LE. Pt remains in bed w/ call light and bed side ~table w/in yusuf ch and all needs met at end of tx. ~ ~Assessme nt ~Current Status: Fair Progress ~Pt c/o during ex of not "having the strength"; did no t c/o pain though. Pt encouraged to do as muc h ~as possible. Nursing in during tx to give meds. ~ ~PT Short Term Goals ~Short Term Goal s ~Time Frame: Jan 11, 2020 ~Roll Left Ri ght: 6 ~Sit to lyin ~Lying to sitting on s matthew of be: 4 ~Sit to stand: 3 ~Chair/bed-to-ch air transfer: 3 ~ ~PT Group Home Goals ~Pulp [employer]er Goals ~PT Group Home Goals Time Frame: J 2019 ~Roll Left Right (QC): 6 ~Sit to L jenelle (QC): 6 ~Lying-Sitting on Side/Bed(QC): 6 ~Sit to Stand (QC): 5 ~Chair/Bed-to-Rosana ir Xfer(QC): 5 ~Toilet Transfer (QC): 5 ~C ar Transfer (QC): 5 ~Does the Patient Walk : No and Walking Goal NOT indicated ~Walk 10 feet (QC): 88 ~Walk 50ft with 2 Turns (QC): 88 ~Walk 150 ft (QC): 88 ~Walking 10ft on Uneven Surface: 88 ~1 Step (curb) (QC): 88 ~4 Steps (QC): 88 ~12 Steps (QC): 88 ~Picking up an Object (QC): 88 ~Wheel 50 feet with 2 t urns (QC: 6 ~Wheel 150 feet: 6 ~ ~PT Plan ~P roblem List ~Problem List: Activity Tolerance, Functional Strength, Safety, Bed Mobili ty, ROM ~ ~Treatment/Plan ~Treatment Plan: Continue Plan of Care ~Treatment Plan: Bed Mobility, Education, Functional Activit y Farshad, Functional Strength, Group ~Ther apy, Safety, Therapeutic Exercise, Transfers ~Treatment Duration: Jan 25, 2020 ~Freq uency: At least 5 of 7 days/Wk (IRF) ~Estimate d Hrs Per Day: 1.5 hours per day ~Patient and /or Family Agrees t: Yes ~ ~Safety Risks/Education ~Patient Education: Cor rect Positioning, Safety Issues ~Teaching Recipient: Patient ~Teaching Methods: Discussion ~Response to Teaching: Pricila chatterjee Understanding ~ ~Time/GCodes ~Time In: 1034 ~Time Out: 1049 ~Total Billed Treatment Time: 15 ~Total Billed Treatment ~1, EX (15m) ~ ~ ~ ~PETEY WHITE PTA Jan 06, 2020 10:55 ~ ~ ~<Created by PETEY WHITE VEHICLE DYNAMICS ENGINEER> ~<Electronically signed by PETEY MYLES VEHICLE DYNAMICS ENGINEER> 01/06/20 1154 ~ ~ NAME: ELMO GARCIA ~MED REC#: [id number] PEND ING ~ ~PHYSICIAN: GODFREY JORDAN DO ~Subjective ~HPI/CC On N [facility] Admission ~Date Seen by Provider: Jan 06, 2020 (000 00) ~Time Seen by Provider: 13:00 ~Subjective/Events-last exam ~Patient d oing well, sleeps most of the time ~Creatini ne is 1.8 on labs yesterday but this is chron ic and no oliguria noted ~INR 1.4 yesterday so increased Coumadin and started Lovenox 1mg/kg coverage until therapeutic and ~will ch domenica level tomorrow ~PCP placed him on Couma din due to false pass of tse stenosis 1 year ago ~Small BM willing to take laxatives unt il evacuated ~No pain reported ~Limited motivation ~CPAP every nap and at night ~Checked meds and labs ~Checked therapy notes ~Conferred with RN ~ ~Review of Systems ~General: Fatigue ~Neurological: Weakne ss ~ ~Objective ~Exam ~Vital Signs ~ ~Vital Signs ~ ~ ~ Date Time Temp Pulse Resp B/P (MA P) Pulse Ox O2 Delivery O2 Flow Rate FiO2 ~ ~01/06/20 07:07 4.00 ~ ~01/06/20 05:03 37.0 68 16 119/76 (90) 92 NIV CPAP ~ ~01/04/20 18:48 36 ~ ~Capillary Refill : Less Than 3 Seconds ~General Appearance: No Apparent Distre ss, WD/WN, Chronically ill, Obese ~HEENT: PERRL/EOMI, Normal ENT Inspection, Phar ynx Normal ~Neck: Full Range of Motion, Nor mal Inspection, Non Tender, Supple, Carotid Bruit ~Respiratory: Chest Non Tender, Lungs C lear, Normal Breath Sounds, No Accessory Musc le Use, No ~Respiratory Distress ~Cardiovascular: Regular Rate, Rhythm, No Edema, No Gallop, No JVD, No Murmur, No rmal Peripheral ~Pulses ~Gastrointestinal: N ormal Bowel Sounds, No Organomegaly, No Pulsa tile Mass, Non Tender, Soft ~Back: Normal Inspection, No CVA Tenderness, No Verte bral Tenderness ~Extremity: Normal Capillary Refill, Normal Inspection, Normal Range of Motion, Non Tender, No Calf ~Tenderness , No Pedal Edema, Other (right AKA) ~Neurologic/Psychiatric: Alert, Oriente d x3, No Motor/Sensory Deficits, Normal Mood/Affect, cloth presser II-~XII Norm as Tested , Motor Weakness (generalized weakness le ft leg) ~Skin: Normal Color, Warm/Dry ~Lymphatic: No Adenopathy ~ ~Results/Procedures ~Lab ~Patient resul lamin labs reviewed. ~ ~FIM ~Transfers ~Thera py Code Descriptions/Definitions ~ ~Functi onal [place] Measure: ~0=Not Assessed/N A 4=Minimal Assistance ~1=Total Assistanc e 5=Supervision or Setup ~2=Maximal [place] tance 6=Modified [place] ~3=Moderate Assistance 7=Complete IndependenceSCALE : Activities may be completed with or wit hout ~assistive devices. ~ ~0-Aqvbdyowet-olo ient completes the activity by him/herself w ith no assistance from a helper. ~5-Set-up or Clean-up Assistance-helper sets up or c leans up; patient completes activity. [place] ~assists only prior to or ~ following t he activity. ~4-Supervision or Touching Assistance-helper provides verbal cues and/or touching/steadying and/or ~contact guar d assistance as patient completes activit y. Assistance may be provided ~ throughout the activity or intermittently. ~3-Partial/Moderate Assistance-helper d oes LESS THAN HALF the effort. [place] lifts , holds or supports~trunk or limbs, but provides less than half the effort. ~2-Substantial/Maximal Assistance-helpe r does MORE THAN HALF the effort. [place] lifts or holds trunk ~or limbs and provides more than half the effort. ~6-Srqrljhga-tivwiv do es ALL the effort. Patient does none of the ef fort to complete the activity. ~Or, the assi stance of 2 or more helpers is required for th e patient to complete the ~ activity. ~If activity was not attempted, code reason : ~7-Patient Refused. ~9-Not Applicable-n ot attempted and the patient did not perfo rm the activity before the current ~illness, exacerbation or injury. ~10-Not Attempt ed due to Environmental Limitations-(lack of equipment, weather restraints, etc.). ~ 88-Not Attempted due to Medical Conditions or Safety Concerns. ~Roll Left to Right (QC): 6 ~ Sit to Lying (QC): 4 ~Sit to Stand (QC): 2 ~Chair/Kpr-dj-Wzgbu Xfer(QC): 2 ~Car Tr ansfer (QC): 1 ~ ~Gait Training ~Does the Nai ent Walk?: No and Walking Goal NOT indicate d ~Walk 10 feet (QC): 88 ~Walk 50 ft with 2 Turns(QC): 88 ~Walk 150 ft (QC): 88 ~Wa lking 10ft/uneven surface-QC: 88 ~ ~Wheelchai r Training ~Does the Pt Use a Wheelchair? : Yes ~Wheel 50 ft with 2 turns (QC): 1 ~Whee l 150 ft (QC): 1 ~Type of Wheelchair: Manual ~ ~Stair Training ~1 Step (curb) (QC): 88 ~4 Steps (QC): 88 ~12 Steps (QC): 88 ~ ~Ba tony ~Picking up an Object (QC): 88 ~ ~ADL-Treatment ~Eating (QC): 5 (set up. OT opened sugar packet and poured into tea . Pt able to picket labor union bowl and ~bring food to his mouth.) ~Oral Hygiene (QC): 6 ~Shower/B athe Self (QC): 2 ~Upper Body Dressing (QC): 5 ~Lower Body Dressing (QC): 1 ~On/Off Fo otwear (QC): 2 ~Toileting Hygiene (QC): 1 ~Chris let Transfer (QC): 1 ~ ~Assessment/Plan ~Assessment and Plan ~Assess Plan/Chief Complaint ~Assessment: ~Debility ~Falls ~DM OOC ~Left foot wound ~h/o right BKA ~CA D ~CABG hx ~PVD ~Coumadin treatment ~Azra pheral neuropathy ~CKD ~CHF ~Poor motivation ~ TREE ~[place] stenosis maintained o n Coumadin ~ ~Plan: ~IRF protocol ~Home m eds ~Monitor INR ~Sugar management ~Lovenox bridge ~INR Wednesday ~ ~(1) Debility ~(2) Diabetes mellitus, insulin dependent (I DDM), uncontrolled ~Status: Acute ~(3) RTEE (obstructive sleep apnea) ~Status: 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 kirill ~(4) Renal insufficiency ~Status: Acute ~(5) CAD (coronary artery disease) ~Status: Chronic ~(6) Hypoxia ~Status: Acute ~ ~ ~ ~GODFREY ZEPEDA DO Jan 06, 2020 07:56 ~ ~ ~<Created by GODFREY ZEPEDA DO> ~<Electronically signed by GODFREY GEORGE DO> 01/06/20 1508 ~ ~ laboratory on 2020-01-06 Glucose [Mass/Vol] 148 mg/dL High 70-110 PENDING 06-0 6-2 mg/dL [facility] 00:42-0 ([id number]) 400 Glucose [Mass/Vol] 186 mg/dL High 70-110 PENDING 06-0 6-2 mg/dL [facility] 06:31-0 ([id number]) 400 Glucose [Mass/Vol] 213 mg/dL High 70-110 PENDING 06-0 6-2 mg/dL [facility] 10:53-0 ([id number]) 400 Glucose [Mass/Vol] 174 mg/dL High 70-110 PENDING 06-0 6-2 mg/dL [facility] 16:18-0 ([id number]) 400 not yet categorized on 2020-01-05 NAME: ELMO GARCIA Maggy ~MED REC#: [id number] PEND ING ~ ~PHYSICIAN: MARIA A MARIE ~OT Current Status-Daily N [facility] Note ~Subjective ~Pt alert, lying in bed. Pt (0000 0) agrees to therapy. Pt c/o dizziness throughout therapy, reported to ~nrsg. ~ ~Mental Status/Objective ~Patient Orientation: Person, Place, Time, Situa tion ~Attachments: IV ~ ~ADL-Treatment ~OT/P T co-treat ([id number]), skills of 2 clini cians required due to medical complexity, uns afe ~mobility and low activity tolerance. P T working in transfers, mobility and L LE strengthening. OT ~working on functiona l transfers, ADLs, UE strengthening. Pt completed sit to stand with mod A x1 ~t hen was able to sit EOB (extended time) wit h SBA due to dizziness. Using FWW, pt able to complete ~SPT with PT assisting transfe r and OT assisting with positioning equipment and B UE's. Transported ~pt to large shower r oom with rolling shower chair with cutout. Pt stated what homecare worker ~completes during shower and dressing, cleansing back, bu ttocks and azra area then completes all ~lower body dressing for pt. Pt stated that he woul d stand up with grabbar for worker to hik e pants ~over hips. During shower, pt abl e to wash all areas except buttocks and arou nd that area. Pt given~long handle sponge to cleanse L LE. Pt placed L foot on groun d and leaned toward R side to allow ~room for assistance to cleanse and dry. Pt urina lamin in shower without asking for urinal. Pt ~attempted to have BM, bucket placed un carlos shower chair. Per clinical judgement, p t is dependent for~toileting. Pt able to don /doff shirt by self after set up. Assist give n to complete all lower body~dressing, hany t x2 to hike pants over hips, PT to stand an d OT to hike pants. Transported pt into [facility] to complete oral care and grooming. Pt then transferred into bed by placing w/c ~perpendicular to bed, placing stump on to bed, grasping onto bed rails then pulli ng to modified stand~and pivoting into bed, 2 person available for safety. Pt stated you all have your way of doing ~things and I have mine. Assist to position and lift L LE into bed, mod A. After session, pt lying ~in bed with call light/phone in reach. All nee ds met in room. ~Therapy Code Descriptions/Definitions ~ ~Functional [place] Measure: ~0=Not Assessed/N A 4=Minimal Assistance ~1=Total Assistanc e 5=Supervision or Setup ~2=Maximal [place] tance 6=Modified [place] ~3=Moderate Assistance 7=Complete IndependenceSCALE : Activities may be completed with or wit hout ~assistive devices. ~ ~9-Hrvvheqatc-fpw ient completes the activity by him/herself w ith no assistance from a helper. ~5-Set-up or Clean-up Assistance-helper sets up or c leans up; patient completes activity. [place] ~assists only prior to or ~ following t he activity. ~4-Supervision or Touching Assistance-helper provides verbal cues and/or touching/steadying and/or ~contact guar d assistance as patient completes activit y. Assistance may be provided ~ throughout the activity or intermittently. ~3-Partial/Moderate Assistance-helper d oes LESS THAN HALF the effort. [place] lifts , holds or supports~trunk or limbs, but provides less than half the effort. ~2-Substantial/Maximal Assistance-helpe r does MORE THAN HALF the effort. [place] lifts or holds trunk ~or limbs and provides more than half the effort. ~2-Drmuiocuq-hemiop do es ALL the effort. Patient does none of the ef fort to complete the activity. ~Or, the assi stance of 2 or more helpers is required for th e patient to complete the ~ activity. ~If activity was not attempted, code reason : ~7-Patient Refused. ~9-Not Applicable-n ot attempted and the patient did not perfo rm the activity before the current ~illness, exacerbation or injury. ~10-Not Attempt ed due to Environmental Limitations-(lack of equipment, weather restraints, etc.). ~ 88-Not Attempted due to Medical Conditions or Safety Concerns. ~Oral Hygiene (QC): 6 ~Shower /Bathe Self (QC): 2 ~Upper Body Dressing (QC): 5 ~Lower Body Dressing (QC): 1 ~On/Off Footwear: 2 ~Toileting Hygiene (QC): 1 ~Toilet Transfer (QC): 1 ~ ~OT Short Te rm Goals ~Short Term Goals ~Time Frame: 2019 ~Shower/bathe self: 2 ~ ~OT Long T erm Goals ~Pulp Mixer Goals ~Time Frame: Feb 01, 2020 ~Eating (QC): 6 ~Oral Hygiene (QC) : 6 ~Toileting Hygiene (QC): 4 ~Shower/Bath e Self (QC): 3 ~Upper Body Dressing (QC): 5 ~L ower Body Dressing (QC): 3 ~On/Off Footwear (QC): 2 ~Additional Goals: 1-Demonstrate ADL Tasks, 2-Verbalize Understanding, 3-ImproveStrength/Farshad ~1=Demonstrate adherence to instructed precautions dur ing ADL tasks. ~2=Patient will verbalize/demonstrate understanding of assistive devices/modifications for ADL . ~3=Patient will improve strength/tolera nce for activity to enable patient to perfo rm ADL's. ~ ~OT Education/Plan ~Problem List/Assessment ~Assessment: Decreased Activ Tolerance, Decreased Safety Aware, Decr eased UE Strength, Impaired Bed ~Mobility, Im paired Coordination, Impaired Funct Balance, Impaired I ADL's, Impaired Self-Care ~S kills, Restricted Funct UE ROM, Visual-Percept ual Deficit ~ ~Discharge Recommendations ~Plan/Recommendations: Continue POC ~ ~Treatment Plan/Plan of Care ~Patient w ould benefit from OT for education, treatmen t and training to promote independence in ~AD L's, mobility, safety and/or upper extremity function for ADL's. ~Plan of Care: ADL Retraining, Functional Mobility, Group Exercise/Act as Ind, UE Funct Exercise/ Act ~Treatment Duration: Feb 01, 2020 ~Frequ ency: At least 5 of 7 days/Wk (IRF) ~Estimate d Hrs Per Day: 1.5 hours per day ~Agreement: Yes ~Rehab Potential: Guarded ~ ~Time/GCode s ~Start Time: 09:00 ~Stop Time: 10:30 ~T otal Time Billed (hr/min): 90 ~Billed Treatm ent Time ~1 visit-ADL 6 (90 min) co-treat w ith PT [id number], individual [id number] ~ ~ ~ ~MARIA A KEENE Jan 05, 2020 09:10 ~ ~ ~<Created by MARIA A VYAS> ~<Electronically signed by MARIA A VYAS> 01/05/20 1042 ~ ~ NAME: ELMO GARCIA ~MED REC#: [id number] PEND ING ~ ~PHYSICIAN: GODFREY JORDAN DO ~Subjective ~HPI/CC On N [facility] Admission ~Date Seen by Provider: Jan 05, 2020 (000 00) ~Time Seen by Provider: 10:00 ~Subjective/Events-last exam ~Patient d oing well ~Creatinine is 1.8 ~INR 1.4 so chad l increase Coumadin and start Lovenox 1mg /kg coverage until therapeutic ~PCP placed him on Coumadin due to false pass of tse stenos is 1 year ago ~No BM willing to take laxativ es ~No pain reported ~Limited motivation ~CPAP every nap and at night ~Checked meds and labs ~Checked therapy notes ~Conferred with RN ~ ~Review of Systems ~General: Fatigue ~Neurological: Weakness, Numbness, Incoordination ~ ~Objective ~Exam ~Chey l Signs ~ ~Vital Signs ~ ~ ~ Date Time Te mp Pulse Resp B/P (MAP) Pulse Ox O2 Delive ry O2 Flow Rate FiO2 ~ ~01/05/20 07:34 92 NIV C PAP 4.00 ~ ~01/05/20 06:00 37.4 80 18 147/78 (101) ~ ~01/04/20 18:48 36 ~ ~Capillary Refill : Less Than 3 Seconds ~General Appearance: No Apparent Distress, WD/WN, Chronically i ll, Obese ~HEENT: PERRL/EOMI, Normal ENT Inspection, Pharynx Normal ~Neck: Full Range of Motion, Normal Inspection, Non Tende r, Supple, Carotid Bruit ~Respiratory: Leslie st Non Tender, Lungs Clear, Normal Breath Soun ds, No Accessory Muscle Use, No ~Respiratory Distress ~Cardiovascular: Regular Rate, Rhythm, No Edema, No Gallop, No JVD, No Murmur, Normal Peripheral ~Pulses ~Gastrointestinal: Normal Bowel Sounds, No Organomegaly, No Pulsatile Mass, Non Te nder, Soft ~Back: Normal Inspection, No CVA Tenderness, No Vertebral Tenderness ~Extremity: Normal Capillary Refill, No rmal Inspection, Normal Range of Motion, Non Tender, No Calf ~Tenderness, No Pedal E kathleen, Other (right AKA) ~Neurologic/Psychiatr ic: Alert, Oriented x3, No Motor/Sensory Deficits, Normal Mood/Affect, cloth presser II-~X II Norm as Tested, Motor Weakness (general ized weakness left leg) ~Skin: Normal Color, Warm/Dry ~Lymphatic: No Adenopathy ~ ~Results/Procedures ~Lab ~Laboratory Te sts ~01/05/20 05:37 ~ ~ ~Patient resulted lab s reviewed. ~ ~FIM ~Transfers ~Therapy Co de Descriptions/Definitions ~ ~Functional [place] Measure: ~0=Not Assessed/N A 4=Minimal Assistance ~1=Total Assistanc e 5=Supervision or Setup ~2=Maximal Hany tance 6=Modified [place] ~3=Moderate Assistance 7=Complete IndependenceSCALE : Activities may be completed with or wit hout ~assistive devices. ~ ~0-Epczbxixcj-qeu ient completes the activity by him/herself w ith no assistance from a helper. ~5-Set-up or Clean-up Assistance-helper sets up or c leans up; patient completes activity. [place] ~assists only prior to or ~ following t he activity. ~4-Supervision or Touching Assistance-helper provides verbal cues and/or touching/steadying and/or ~contact guar d assistance as patient completes activit y. Assistance may be provided ~ throughout the activity or intermittently. ~3-Partial/Moderate Assistance-helper d oes LESS THAN HALF the effort. [place] lifts , holds or supports~trunk or limbs, but provides less than half the effort. ~2-Substantial/Maximal Assistance-helpe r does MORE THAN HALF the effort. [place] lifts or holds trunk ~or limbs and provides more than half the effort. ~0-Fyjwwflek-qvtwcc do es ALL the effort. Patient does none of the ef fort to complete the activity. ~Or, the assi stance of 2 or more helpers is required for th e patient to complete the ~ activity. ~If activity was not attempted, code reason : ~7-Patient Refused. ~9-Not Applicable-n ot attempted and the patient did not perfo rm the activity before the current ~illness, exacerbation or injury. ~10-Not Attempt ed due to Environmental Limitations-(lack of equipment, weather restraints, etc.). ~ 88-Not Attempted due to Medical Conditions or Safety Concerns. ~Roll Left to Right (QC): 6 ~ Sit to Lying (QC): 4 ~Sit to Stand (QC): 2 ~Chair/Nyl-on-Qgzic Xfer(QC): 2 ~Car Tr ansfer (QC): 1 ~ ~Gait Training ~Does the Nai ent Walk?: No and Walking Goal NOT indicate d ~Walk 10 feet (QC): 88 ~Walk 50 ft with 2 Turns(QC): 88 ~Walk 150 ft (QC): 88 ~Wa lking 10ft/uneven surface-QC: 88 ~ ~Wheelchai r Training ~Does the Pt Use a Wheelchair? : Yes ~Wheel 50 ft with 2 turns (QC): 1 ~Whee l 150 ft (QC): 1 ~Type of Wheelchair: Manual ~ ~Stair Training ~1 Step (curb) (QC): 88 ~4 Steps (QC): 88 ~12 Steps (QC): 88 ~ ~Ba tony ~Picking up an Object (QC): 88 ~ ~ADL-Treatment ~Eating (QC): 5 (set up. OT opened sugar packet and poured into tea . Pt able to picket labor union bowl and ~bring food to his mouth.) ~Oral Hygiene (QC): 7 ~Shower/B athe Self (QC): 7 ~Upper Body Dressing (QC): 10 (Pt wearing hospital gown. He did not h ave a shirt to don/doff. ARU ~attempted to fi nd shirt for pt to use, but did not have o ne large enough.) ~Lower Body Dressing (QC ): 1 (Assist x2 in blasting helper order to manage pants up. 1 person to focus on ~balance and 1 to manage clothing. Pt able to thread pant s onto BLEs.) ~On/Off Footwear (QC): 1 (Pt bradly ble to don/doff sock onto L foot. He reports b eing dependent for ~task at PLOF) ~Toileting Hygiene (QC): 7 ~ ~Assessment/Plan ~Assessment and Plan ~Assess Plan/Chief Complaint ~Assessment: ~Debility ~Falls ~DM OOC ~Left foot wound ~h/o right BKA ~CA D ~CABG hx ~PVD ~Coumadin treatment ~[place]ra pheral neuropathy ~CKD ~CHF ~Poor motivation ~ TREE ~[place] of [place] stenosis maintained o n Coumadin ~ ~Plan: ~IRF protocol ~Home m eds ~Monitor INR ~Sugar management ~Lovenox ~ ~(1) Debility ~(2) Diabetes mellitus, i nsulin dependent (IDDM), uncontrolled ~Status: Acute ~(3) TREE (obstructive sleep apnea) ~Sta tus: Chronic ~(4) Renal insufficiency ~Statu s: Acute ~(5) CAD (coronary artery disease ) ~Status: Chronic ~(6) Hypoxia ~Status: Acute ~ ~ ~ ~GODFREY ZEPEDA DO Jan 05, 2020 06:4 4 ~ ~ ~<Created by GODFREY ZEPEDA DO> ~<Electronically signed by GODFREY GEORGE DO> 01/05/20 1048 ~ ~ NAME: ELMO GARCIA ~MED REC#: [id number] PEND ING ~ ~PHYSICIAN: BETTY HOUSE PT ~PT Daily Note-Current N [facility] ~Subjective ~Patient in bed pre tx, agrees to (000 00) PT, has no complaints of pain at rest. Will be co-treating with OT~due to poor nai ent mobility, strength, endurance, balance, the need to coordinate UE and LE during ~activity, reduce the risk of falls. ~ ~Appearance ~Patient in WC post tx with nurse call, phone, tray, all needs met, OT to continue working with ~patient. ~ ~Ment al Status ~Patient Orientation: Person, Pl [place], Situation ~ ~Transfers ~SCALE: Activiti es may be completed with or without assistive devices. ~ ~2-Lcwftzsqhm-clgpkup comple andria the activity by him/herself with no assistance from a helper. ~5-Set-up or Clean-up Assistance-helper sets up or c leans up; patient completes activity. [place] ~assists only prior to or ~ following t he activity. ~4-Supervision or Touching Assistance-helper provides verbal cues and/or touching/steadying and/or ~contact guar d assistance as patient completes activit y. Assistance may be provided ~ throughout the activity or intermittently. ~3-Partial/Moderate Assistance-helper d oes LESS THAN HALF the effort. [place] lifts , holds or supports~trunk or limbs, but provides less than half the effort. ~2-Substantial/Maximal Assistance-helpe r does MORE THAN HALF the effort. [place] lifts or holds trunk ~or limbs and provides more than half the effort. ~3-Nevslieun-rpwfzf do es ALL the effort. Patient does none of the ef fort to complete the activity. ~Or, the assi stance of 2 or more helpers is required for th e patient to complete the ~ activity. ~If activity was not attempted, code reason : ~7-Patient Refused. ~9-Not Applicable-n ot attempted and the patient did not perfo rm the activity before the current ~illness, exacerbation or injury. ~10-Not Attempt ed due to Environmental Limitations-(lack of equipment, weather restraints, etc.). ~ 88-Not Attempted due to Medical Conditions or Safety Concerns. ~Roll Left Right (QC): 6 ~Lyi ng to Sitting/Side of Bed(Q: 3 ~Sit to Stand (QC): 2 ~Chair/Ier-mb-Shfem Xfer(QC): 2 ~Nai ent supine to sit, transfer to shower chair , taken to shower room, showered, taken b ack to his ~room, standing to finish dressing and drying, then stand again and sit in WC. Patient needs a lot ~of assist with tra nsfers and standing and cues for positioning a nd safety. Patient has poor ~endurance and needs frequent rest breaks. ~ ~Weight Bearing ~ ~right BKA ~ ~Treatments ~bed mobility and transfers, shower, dressing. PT worked on bed mobility, transfers, standing, ~assist with shower and dressing, trunk balance and positioning and safety during shower, O T worked ~on shower and dressing and assi sted with transfers. ~ ~Assessment ~Current Status: Poor Progress ~Patient has a lo t of trouble standing, high fall risk ~ ~PT Short Term Goals ~Short Term Goals ~Time Fram e: Jan 11, 2020 ~Roll Left Right: 6 ~Sit to ly in ~Lying to sitting on side of be: 4 ~Sit to stand: 3 ~Chair/jzw-tc-wrlvn transfer: 3 ~ ~PT Group Home Goals ~Group Home Goals ~P T Pulp Mixer Goals Time Frame: Jan 25, 2020 ~Ro ll Left Right (QC): 6 ~Sit to Lying (QC): 6 ~Lying-Sitting on Side/Bed(QC): 6 ~Sit to Stand (QC): 5 ~Chair/Dfz-zo-Dbxew Xfer( QC): 5 ~Toilet Transfer (QC): 5 ~Car Transfer (QC): 5 ~Does the Patient Walk: No and Walkin g Goal NOT indicated ~Walk 10 feet (QC): 88 ~W alk 50ft with 2 Turns (QC): 88 ~Walk 150 ft (QC): 88 ~Walking 10ft on Uneven Surface: 88 ~1 Step (curb) (QC): 88 ~4 Steps (QC): 88 ~12 Steps (QC): 88 ~Picking up an Object (Q C): 88 ~Wheel 50 feet with 2 turns (QC: 6 ~Whe el 150 feet: 6 ~ ~PT Plan ~Problem List ~Probl em List: Activity Tolerance, Functional Strength, Safety, Balance, Gait, Transf er, Bed ~Mobility, ROM ~ ~Treatment/Plan ~Treatment Plan: Continue Plan of Care ~Treatment Plan: Bed Mobility, Educatio n, Functional Activity Farshad, Functional Strength, Group ~Therapy, Safety, Thera peutic Exercise, Transfers ~Treatment Duration : Jan 25, 2020 ~Frequency: At least 5 of 7 da ys/Wk (IRF) ~Estimated Hrs Per Day: 1.5 hours per day ~Patient and/or Family Agrees t: Darrin s ~ ~Safety Risks/Education ~Patient Educat ion: Transfer Techniques, Correct Positionin g, Safety Issues ~Teaching Recipient: Nai ent ~Teaching Methods: Demonstration, Discu ssion ~Response to Teaching: Reinforcement Ne eded ~ ~Time/GCodes ~Time In: 0900 ~Time Out: 1000 ~Total Billed Treatment Time: 60 ~Total Billed Treatment ~1 visit ~FA 60' ~ ~ ~ ~BETTY STRONG PT Jan 05, 2020 11:10 ~ ~ ~<Created by BETTY STRONG PT> ~<Electronically signed by BETTY STRONG PT> 01/05/20 1112 ~ ~ laboratory on 2020-01-05 Albumin [Mass/Vol] 3.2 g/dL Negative 3.2-4.5 PENDING 06-0 5-2 g/dL [address] 01:37-0 ([id number]) 400 ALP [Catalytic 90 U/L Negative 40-136 U/L PENDING activity/Vol] [facility] [address] [place] [address] 01:37-0 ([id number]) 400 ALT [Catalytic 19 U/L Negative 0-55 U/L PENDING 01-04-2 activity/Vol] [facility] [address] [place] [address] 01:37-0 ([id number]) 400 Anion gap 9 mmol/L Negative 5-14 PENDING 01-04- [Moles/Vol] mmol/L [facility] [address] [place] [address] 01:37-0 ([id number]) 400 AST [Catalytic 14 U/L Negative 5-34 U/L PENDING activity/Vol] [facility] 01:37-0 ([id number]) 400 Basophils (Bld) 0.0 10*3/uL Negative 0.0-0.1 PENDING 06-05 -2 [#/Vol] 10*3/uL [facility] 01:37-0 ([id number]) 400 Basophils/100 WBC 0 % Negative 0-10 % PENDING 05 -2 (Bld) [facility] 01:37-0 ([id number]) 400 Bilirubin [Mass/Vol] 0.5 mg/dL Negative 0.1-1.0 PENDING 06 -05-2 mg/dL [facility] 01:37-0 ([id number]) 400 Calcium [Mass/Vol] 8.5 mg/dL Negative 8.5-10.1 PENDING 06-0 5-2 mg/dL [facility] 01:37-0 ([id number]) 400 Calcium [Mass/Vol] 9.1 mg/dL Negative 8.5-10.1 PENDING 06-0 5-2 mg/dL [facility]20 [facility] 01:37-0 ([id number]) 400 Chloride [Moles/Vol] 102 mmol/L Negative 98-107 PENDING 0 6-05-2 mmol/L [facility] 01:37-0 (05070) 400 CO2 [Moles/Vol] 22 mmol/L Negative 21-32 PENDING 06-05-2 mmol/L [facility] 01:37-0 ([id number]) 400 Creatinine 1.82 mg/dL High 0.60-1.30 PENDING 06-05-2 [Mass/Vol] mg/dL [facility]20 [facility] 01:37-0 ([id number]) 400 Creatinine and 37 PENDING -05-2 Glomerular [facility] 020 filtration [facility] 01:37-0 rate.predicted panel ([id number]) 400 - Serum, Plasma or Blood Eosinophils (Bld) 0.1 10*3/uL Negative 0.0-0.3 PENDING - 05-2 [#/Vol] 10*3/uL [facility] 01:37-0 ([id number]) 400 Eosinophils/100 WBC 1 % Negative 0-10 % PENDING 05-2 (Bld) [facility] 01:37-0 ([id number]) 400 Erythrocyte 15.1 % High 10.0-14.5 PENDING 05-2 distribution width % [facility] 020 (RBC) [Ratio] [facility] 01:37-0 ([id number]) 400 Glucose [Mass/Vol] 211 mg/dL High 70-110 PENDING 06-0 5-2 mg/dL [facility] 01:37-0 ([id number]) 400 Glucose [Mass/Vol] 189 mg/dL High 70-105 PENDING 06-0 5-2 mg/dL [facility] 01:37-0 ([id number]) 400 Glucose [Mass/Vol] 305 mg/dL High 70-110 PENDING 06-0 5-2 mg/dL [facility]20 [facility] 06:40-0 ([id number]) 400 Glucose [Mass/Vol] 218 mg/dL High 70-110 PENDING 06-0 5-2 mg/dL [facility]20 [facility] 10:59-0 ([id number]) 400 Glucose [Mass/Vol] 163 mg/dL High 70-110 PENDING 06-0 5-2 mg/dL [facility] 15:46-0 ([id number]) 400 Hematocrit (Bld) 32 % Low 40-54 % PENDING 05- 2 [Volume fraction] [facility] 01:37-0 ([id number]) 400 Hemoglobin (Bld) 10.6 g/dL Low 13.3-17.7 PENDING -05- 2 [Mass/Vol] g/dL [facility] 01:37-0 ([id number]) 400 INR Coag (Platelet 1.4 Negative 0.8-1.4 PENDING 06-0 5-2 poor plasma or [facility] 020 blood) [Relative N [facility] 01:37-0 time] ([id number]) 400 Lymphocytes (Bld) 1.0 10*3/uL Negative 1.0-4.0 PENDING - 05-2 [#/Vol] 10*3 [facility] 01:37-0 ([id number]) 400 Lymphocytes/100 WBC 13 % Negative 12-44 % PENDING - 05-2 (Bld) [facility] 01:37-0 ([id number]) 400 MCH (RBC) [Entitic 28 pg Negative 25-34 pg PENDING 06-0 5-2 mass] [facility] 020 [facility] 01:37-0 ([id number]) 400 MCHC (RBC) 33 g/dL Negative 32-36 g/dL PENDING 05-2 [Mass/Vol] [facility] Harley [facility] :37-0 (38368) 400 MCV (RBC) [Entitic 85 Negative 80-99 PENDING 06-0 5-2 vol] [foz_us] [facility] Harley [facility] :37-0 (61803) 400 Monocytes (Bld) 0.8 10*3/uL Negative 0.0-1.0 PENDING 05 -2 [#/Vol] 10*[address] :37-0 (63342) 400 Monocytes/100 WBC 11 % Negative 0-12 % PENDING 01-042 (Bld) [address] :37-0 (28054) 400 Neutrophils (Bld) 5.6 10*3/uL Negative 1.8-7.8 PENDING 2 [#/Vol] 10*[address] :37-0 (56972) 400 Neutrophils/100 WBC 74 % Negative 42-75 % PENDING -2 (Bld) [address] :37-0 (36800) 400 Platelet mean volume 11.1 High 7.4-10.4 PENDING 2 (Bld) [Entitic vol] [foz_us] [facility] Harley [facility] :37-0 (59321) 400 Platelets (Bld) 130 10*3/uL Negative 130-400 PENDING 05 2 [#/Vol] 10*3/uL [address] :37-0 (57584) 400 Potassium 4.1 mmol/L Negative 3.6-5.0 PENDING 05-2 [Moles/Vol] mmol/L [address] :37-0 (89650) 400 Protein [Mass/Vol] 6.3 g/dL Low 6.4-8.2 PENDING 06-0 5-2 g/dL [address] :37-0 (28814) 400 PT Coag (PPP) [Time] 18.0 s High 12.2-14.7 PENDING s [facility] 01:37-0 (46781) 400 RBC (Bld) [#/Vol] 3.75 10*6/uL Low 4.35-5.85 PENDING 10*6/uL [facility] 01:37-0 (93347) 400 Sodium [Moles/Vol] 133 mmol/L Low 135-145 PENDING 12-01 mmol/L [facility] 01:37-0 (07057) 400 Urea nitrogen 30 mg/dL High 7-18 mg/dL PENDING [Mass/Vol] [facility] 01:37-0 (45644) 400 Urea 16 mg/mg PENDING nitrogen/Creatinine [facility] 020 [Mass ratio] [facility] 01:37-0 (34416) 400 WBC (Bld) [#/Vol] 7.5 10*3/uL Negative 4.3-11.0 PENDING 12-01 10*3/uL [facility] 01:37-0 (26792) 400 not yet categorized on 2020-01-04 NAME: ELMO GARCIA ~MED REC#: [id number] PEND ING ~ ~PHYSICIAN: BETTY HOUSE PT ~PT Daily Note-Current N [facility] ~Subjective ~Patient in bed pre tx, agrees to (000 00) PT, voices no complaints of pain. Patie nt very drowsy but wakes ~after a few mome nts. Will be co-treating with OT due to poor patient mobility, strength, endurance,~balance, the need to coordin ate UE and LE during activity, and to decrease risk of falls. ~ ~Appearance ~Patient in bed post tx with nurse call, phone, tray, all ne eds met. ~ ~Mental Status ~Patient Orientat ion: Normal For Age ~ ~Transfers ~SCALE: Activities may be completed with or wit hout assistive devices. ~ ~3-Kdtunogejw-btmi ent completes the activity by him/herself w ith no assistance from a helper. ~5-Set-up or Clean-up Assistance-helper sets up or c leans up; patient completes activity. [place] ~assists only prior to or ~ following t he activity. ~4-Supervision or Touching Assistance-helper provides verbal cues and/or touching/steadying and/or ~contact guar d assistance as patient completes activit y. Assistance may be provided ~ throughout the activity or intermittently. ~3-Partial/Moderate Assistance-helper d oes LESS THAN HALF the effort. [place] lifts , holds or supports~trunk or limbs, but provides less than half the effort. ~2-Substantial/Maximal Assistance-helpe r does MORE THAN HALF the effort. [place] lifts or holds trunk ~or limbs and provides more than half the effort. ~5-Gljtwtafe-kidtrx do es ALL the effort. Patient does none of the ef fort to complete the activity. ~Or, the assi stance of 2 or more helpers is required for th e patient to complete the ~ activity. ~If activity was not attempted, code reason : ~7-Patient Refused. ~9-Not Applicable-n ot attempted and the patient did not perfo rm the activity before the current ~illness, exacerbation or injury. ~10-Not Attempt ed due to Environmental Limitations-(lack of equipment, weather restraints, etc.). ~ 88-Not Attempted due to Medical Conditions or Safety Concerns. ~Roll Left Right (QC): 6 ~Sit to Lying (QC): 4 ~Lying to Sitting/Side of Bed(Q: 3 ~Sit to Stand (QC): 2 ~Chair/Iga-wa-Uxadn Xfer(QC): 2 ~Patien t went supine to sit and then stand pivot to W C, propelled to therapy gym, stood x3 in t he ~parallel bars with max assist, propell ed to room, stand pivot transfer to bed, laye d down in bed. ~Patient needs extra time for a ll activity due to fatigue. He does get SO B with activity. ~ ~Weight Bearing ~ ~right BK A ~ ~Wheelchair Training ~Does the Pt Use a Wheelchair?: Yes ~Type of Wheelchair: M anual ~120'x2, very slow, needs several rest breaks each way. ~ ~Treatments ~bed mobility a nd transfers, WC mobility, standing. PT performed bed mobility and transfers an d ~standing, OT assisted with transfers a nd UE positioning and safety during mobility ~ ~Assessment ~Current Status: Fair Progr ess ~unsteady during transfers ~ ~PT Short Term Goals ~Short Term Goals ~Time Frame: 2019 ~Roll Left Right: 6 ~Sit to lyin ~Lying to sitting on side of be: 4 ~Sit to stand: 3 ~Chair/ldt-tp-hvwwm transfer: 3 ~ ~PT Pulp Mixer Goals ~Pulp Mixer Goals ~P T Pulp Mixer Goals Time Frame: Jan 25, 2020 ~Ro ll Left Right (QC): 6 ~Sit to Lying (QC): 6 ~Lying-Sitting on Side/Bed(QC): 6 ~Sit to Stand (QC): 5 ~Chair/Uug-bo-Emrir Xfer( QC): 5 ~Toilet Transfer (QC): 5 ~Car Transfer (QC): 5 ~Does the Patient Walk: No and Walkin g Goal NOT indicated ~Walk 10 feet (QC): 88 ~W alk 50ft with 2 Turns (QC): 88 ~Walk 150 ft (QC): 88 ~Walking 10ft on Uneven Surface: 88 ~1 Step (curb) (QC): 88 ~4 Steps (QC): 88 ~12 Steps (QC): 88 ~Picking up an Object (Q C): 88 ~Wheel 50 feet with 2 turns (QC: 6 ~Whe el 150 feet: 6 ~ ~PT Plan ~Problem List ~Probl em List: Activity Tolerance, Functional Strength, Safety, Balance, Gait, Transf er, Bed ~Mobility, ROM ~ ~Treatment/Plan ~Treatment Plan: Continue Plan of Care ~Treatment Plan: Bed Mobility, Educatio n, Functional Activity Farshad, Functional Strength, Group ~Therapy, Safety, Thera peutic Exercise, Transfers ~Treatment Duration : Jan 25, 2020 ~Frequency: At least 5 of 7 da ys/Wk (IRF) ~Estimated Hrs Per Day: 1.5 hours per day ~Patient and/or Family Agrees t: Ye s ~ ~Safety Risks/Education ~Patient Educat ion: Transfer Techniques, Correct Positionin g, W/C Management, Safety Issues ~Teaching Recipient: Patient ~Teaching Methods: Demonstration, Discussion ~Response to Teaching: Reinforcement Needed ~ ~Time/ GCodes ~Time In: 1400 ~Time Out: 1440 ~Total B illed Treatment Time: 40 ~Total Billed Treatm ent ~1 visit ~FA 40' ~ ~Co-treated for the who le 40'. ~ ~ ~ ~BETTY STRONG PT Jan 04, 2020 14:52 ~ ~ ~<Created by BETTY STRONG PT> ~<Electronically signed by BETTY STRONG PT> 01/04/20 7003 ~ ~ NAME: ELMO GARCIA ~MED REC#: [id number] PEND ING ~ ~PHYSICIAN: JESUS SANDERSON OT ~OT Current N [facility] Status-Daily Note ~Subjective ~Pt laying in (85315 ) bed sleeping, easily awoken for therapy . OT/PT cotreat due to poor patient mobil ity, ~strength, endurance, balance, to coord inate UE and LE during activity, and to reduc e risk of falls ~ ~ADL-Treatment ~Therapy Code Descriptions/Definitions ~ ~Functional [place] Measure: ~0=Not Assessed/N A 4=Minimal Assistance ~1=Total Assistanc e 5=Supervision or Setup ~2=Maximal Hany tance 6=Modified [place] ~3=Moderate Assistance 7=Complete IndependenceSCALE : Activities may be completed with or wit hout ~assistive devices. ~ ~8-Zvzefhplaz-rzk ient completes the activity by him/herself w ith no assistance from a helper. ~5-Set-up or Clean-up Assistance-helper sets up or c leans up; patient completes activity. [place] ~assists only prior to or ~ following t he activity. ~4-Supervision or Touching Assistance-helper provides verbal cues and/or touching/steadying and/or ~contact guar d assistance as patient completes activit y. Assistance may be provided ~ throughout the activity or intermittently. ~3-Partial/Moderate Assistance-helper d oes LESS THAN HALF the effort. [place] lifts , holds or supports~trunk or limbs, but provides less than half the effort. ~2-Substantial/Maximal Assistance-helpe r does MORE THAN HALF the effort. [place] lifts or holds trunk ~or limbs and provides more than half the effort. ~1-Zrrphbiux-rcbiuy do es ALL the effort. Patient does none of the ef fort to complete the activity. ~Or, the assi stance of 2 or more helpers is required for th e patient to complete the ~ activity. ~If activity was not attempted, code reason : ~7-Patient Refused. ~9-Not Applicable-n ot attempted and the patient did not perfo rm the activity before the current ~illness, exacerbation or injury. ~10-Not Attempt ed due to Environmental Limitations-(lack of equipment, weather restraints, etc.). ~ 88-Not Attempted due to Medical Conditions or Safety Concerns. ~Eating (QC): 5 (set up. OT o pened sugar packet and poured into tea. Pt ab le to [employer] bowl and ~bring food to his yulissa th.) ~ ~Other Treatment ~OT/PT cotreat due to poor patient mobility, strength, endurance, balance, to coordinate UE and LE ~durin g activity, and to reduce risk of falls. OT focused on UE placement, w/c mobility, assist with ~standing, assist with transfers, cues and sequencing for safety while PT focu sed on transfers, ~standing balance, bed mobil ity, assist with w/c mobility. Pt transferre d from supine to sit EOB, ~then to w/c with st and pivot transfer. He propelled to the UB. gym where he stood at parallel ~bars x3 standing trials (Max A each) with rest breaks between each trial. Pt then self-propel led w/c~back to his room requiring multiple rest breaks. Pt transferred back to bed from w/c. Lunch tray ~placed in front of pt and edie carcamo was able to eat with assistance from OT for setting up tea. Pt required~extra time for all activities due to fatigue, and SOB with activity. Post OT/PT cotreat, pt laying ~in bed, call light in reach and all needs met. ~ ~Education ~OT Patient Education: Corre ct positioning, Energy conservation, Modif ied ADL techniques, Progress ~toward Goal/U pdate tx plan, Purpose of tx/functional activ ities, Safety issues, Transfer techniques ~Tea jacoby Recipient: Patient ~Teaching Methods: Discussion ~Response to Teaching: Pricila chatterjee Understanding ~ ~OT Short Term Goals ~S hort Term Goals ~Time Frame: Jan 17, 2020 ~Shower/bathe self: 2 ~ ~OT Pulp Mixer G oals ~Pulp Mixer Goals ~Time Frame: Jan 31 20 ~Eating (QC): 6 ~Oral Hygiene (QC): 6 ~Toileting Hygiene (QC): 4 ~Shower/Bath e Self (QC): 3 ~Upper Body Dressing (QC): 5 ~L ower Body Dressing (QC): 3 ~On/Off Footwear (QC): 2 ~Additional Goals: 1-Demonstrate ADL Tasks, 2-Verbalize Understanding, 3-ImproveStrength/Farshad ~1=Demonstrate adherence to instructed precautions dur ing ADL tasks. ~2=Patient will verbalize/demonstrate understanding of assistive devices/modifications for ADL . ~3=Patient will improve strength/tolera nce for activity to enable patient to perfo rm ADL's. ~ ~OT Education/Plan ~Problem List/Assessment ~Assessment: Decreased Activ Tolerance, Decreased UE Strength, Impai red Funct Balance, Impaired I ~ADL's, Impai red Self-Care Skills ~ ~Discharge Recommend ations ~Plan/Recommendations: Continue POC ~ ~Treatment Plan/Plan of Care ~Patient w ould benefit from OT for education, treatmen t and training to promote independence in ~AD L's, mobility, safety and/or upper extremity function for ADL's. ~Plan of Care: ADL Retraining, Functional Mobility, Group Exercise/Act as Ind, UE Funct Exercise/ Act ~Treatment Duration: Feb 01, 2020 ~Frequ ency: At least 5 of 7 days/Wk (IRF) ~Estimate d Hrs Per Day: 1.5 hours per day ~Agreement: Yes ~Rehab Potential: Guarded ~ ~Time/GCode s ~Start Time: 14:00 ~Stop Time: 14:40 ~T otal Time Billed (hr/min): 40 ~Billed Treatm ent Time ~OT/PT cotreat [id number] ~ ~1, FA 3 (40') ~ ~ ~ ~JESUS SUTTON OT Jan 04, 2020 14:56 ~ ~ ~<Created by JESUS SUTTON OT> ~<Electronically signed by JESUS SUTTON OT> 01/04/20 1438 ~ ~ laboratory on 2020-01-04 Anion gap 8 mmol/L Negative 5-14 PENDING 04-2 [Moles/Vol] mmol/L [facility] 02:10-0 (06435) 400 Calcium [Mass/Vol] 8.6 mg/dL Negative 8.5-10.1 PENDING 06-0 4-2 mg/dL [facility] 020 [facility] 02:10-0 (01498) 400 Chloride [Moles/Vol] 103 mmol/L Negative 98-107 PENDING 0 6-04-2 mmol/L [facility] 02:10-0 (21222) 400 CO2 [Moles/Vol] 24 mmol/L Negative 21-32 PENDING 06-04-2 mmol/L [facility] 020 [facility] 02:10-0 (42510) 400 Creatinine 1.78 mg/dL High 0.60-1.30 PENDING 06-04-2 [Mass/Vol] mg/dL [facility] 020 [facility] 02:10-0 (79966) 400 Creatinine and 38 Invalid PENDING --2 Glomerular Interpreta [facility] 020 filtration tion Code N [facility] 02:10-0 rate.predicted panel ([id number]) 400 - Serum, Plasma or Blood Erythrocyte 15.2 % High 10.0-14.5 PENDING -04-2 distribution width % [facility] 020 (RBC) [Ratio] N [facility] 02:10-0 (48966) 400 Glucose [Mass/Vol] 183 mg/dL High 70-110 PENDING 06-0 4-2 mg/dL LOCATIO 020 [facility] 00:57-0 (62256) 400 Glucose [Mass/Vol] 139 mg/dL High 70-105 PENDING 06-0 4-2 mg/dL LOC[facility]IO 020 [facility] 02:10-0 (02391) 400 Glucose [Mass/Vol] 74 mg/dL Negative 70-110 PENDING 06-0 4-2 mg/dL LOC[facility]IO 020 [facility] 05:04-0 ([id number]) 400 Glucose [Mass/Vol] 91 mg/dL Negative 70-110 PENDING 06-0 4-2 mg/dL LOC[facility]IO 020 [facility] 06:05-0 (96050) 400 Glucose [Mass/Vol] 136 mg/dL High 70-110 PENDING 06-0 4-2 mg/dL LOC[facility]IO 020 [facility] 07:17-0 (43405) 400 Glucose [Mass/Vol] 273 mg/dL High 70-110 PENDING 06-0 4-2 mg/dL LOC[facility]IO 020 [facility] 10:59-0 (36010) 400 Glucose [Mass/Vol] 326 mg/dL High 70-110 PENDING 06-0 4-2 mg/dL LOCATIO 020 [facility] 13:03-0 (77115) 400 Glucose [Mass/Vol] 345 mg/dL High 70-110 PENDING 06-0 4-2 mg/dL [facility] 020 [facility] 15:27-0 (68166) 400 Glucose [Mass/Vol] 293 mg/dL High 70-110 PENDING 06-0 4-2 mg/dL [facility] 020 [facility] 19:22-0 (51409) 400 Glucose [Mass/Vol] 208 mg/dL High 70-110 PENDING 06-0 4-2 mg/dL [address] 22:53-0 (93611) 400 Hematocrit (Bld) 32 % Low 40-54 % PENDING [Volume fraction] [address] 02:10-0 (93130) 400 Hemoglobin (Bld) 10.7 g/dL Low 13.3-17.7 PENDING 01-03- 2 [Mass/Vol] g/dL [address] 02:10-0 (56296) 400 INR Coag (Platelet 1.2 Negative 0.8-1.4 PENDING -0 4-2 poor plasma or LOC[facility]IO 020 blood) [Relative [facility] 02:10-0 time] ([id number]) 400 MCH (RBC) [Entitic 28 pg Negative 25-34 pg PENDING 06-0 4-2 mass] [facility] [address] [place] [address] 02:10-0 (38054) 400 MCHC (RBC) 34 g/dL Negative 32-36 g/dL PENDING 2 [Mass/Vol] [facility] [address] [place] [address] 02:10-0 (11390) 400 MCV (RBC) [Entitic 84 Negative 80-99 PENDING 06-0 4-2 vol] [foz_us] [facility] [address] [place] [address] 02:10-0 (21211) 400 Platelet mean volume 10.5 High 7.4-10.4 PENDING 2 (Bld) [Entitic vol] [foz_us] [facility] 020 [facility] 02:10-0 (87464) 400 Platelets (Bld) 131 10*3/uL Negative 130-400 PENDING 01-032 [#/Vol] 10*3/uL [facility] 020 N S 02:10-0 (62440) 400 Potassium 3.8 mmol/L Negative 3.6-5.0 PENDING 01-03-2 [Moles/Vol] mmol/L [facility] 020 [facility] 02:10-0 (78654) 400 PT Coag (PPP) [Time] 15.5 s High 12.2-14.7 PENDING -2 s [facility] 020 [facility] 02:10-0 (70672) 400 RBC (Bld) [#/Vol] 3.78 10*6/uL Low 4.35-5.85 PENDING 10*6/uL [facility] 020 [facility] 02:10-0 (29460) 400 Sodium [Moles/Vol] 135 mmol/L Negative 135-145 PENDING 2 mmol/L [facility] 020 [facility] 02:10-0 (76603) 400 Urea nitrogen 27 mg/dL High 7-18 mg/dL PENDING [Mass/Vol] [facility] 020 [facility] 02:10-0 (29870) 400 Urea 15 mg/mg Invalid PENDING nitrogen/Creatinine Interpreta [facility] 020 [Mass ratio] tion Code N [facility] 02:10-0 (01164) 400 WBC (Bld) [#/Vol] 7.8 10*3/uL Negative 4.3-11.0 PENDING 11-01 10*3/uL [facility] 020 [facility] 02:10-0 (33117) 400 not yet categorized on 2020-01-03 PROCALCITONIN (PCT) 0.07 Negative <0.10 PENDING -2 ng/mL [facility] 020 [facility] 00:50-0 (37628) 400 laboratory on 2020-01-03 Albumin [Mass/Vol] 3.2 g/dL Negative 3.2-4.5 PENDING 06-0 3-2 g/dL [facility] 020 N S 00:50-0 (36153) 400 ALP [Catalytic 90 U/L Negative 40-136 U/L PENDING 2 activity/Vol] [facility] 020 [facility] 00:50-0 (46322) 400 ALT [Catalytic 19 U/L Negative 0-55 U/L PENDING 06-03-2 activity/Vol] [facility] 020 [facility] 00:50-0 (06043) 400 Anion gap 12 mmol/L Negative 5-14 PENDING 06-03-2 [Moles/Vol] mmol/L [facility] 020 [facility] 00:50-0 (03318) 400 AST [Catalytic 19 U/L Negative 5-34 U/L PENDING 06-03-2 activity/Vol] [facility] [address] [place] [address] 00:50-0 (23960) 400 Basophils (Bld) 0.0 10*3/uL Negative 0.0-0.1 PENDING 03 -2 [#/Vol] 10*3/uL [facility] [address] [place] [address] 00:50-0 (50085) 400 Basophils/100 WBC 0 % Negative 0-10 % PENDING 01-02 -2 (Bld) [facility] 020 [facility] 00:50-0 (70038) 400 Bilirubin [Mass/Vol] 0.6 mg/dL Negative 0.1-1.0 PENDING 06 -03-2 mg/dL [facility] [address] [place] [address] 00:50-0 (41042) 400 Calcium [Mass/Vol] 8.4 mg/dL Low 8.5-10.1 PENDING 06-0 3-2 mg/dL [facility] 00:50-0 (20907) 400 Calcium [Mass/Vol] 9.0 mg/dL Negative 8.5-10.1 PENDING 06-0 3-2 mg/dL [facility] [address] [place] [address] 00:50-0 (43277) 400 Chloride [Moles/Vol] 102 mmol/L Negative 98-107 PENDING 0 6-03-2 mmol/L [facility] 00:50-0 (33641) 400 CO2 [Moles/Vol] 17 mmol/L Low 21-32 PENDING 06-03-2 mmol/L [facility] 00:50-0 (00720) 400 Creatinine 1.70 mg/dL High 0.60-1.30 PENDING 06-03-2 [Mass/Vol] mg/dL [facility] 020 [facility] 00:50-0 (19122) 400 Creatinine and 40 PENDING 06-03-2 Glomerular [facility] 020 filtration N [facility] 00:50-0 rate.predicted panel ([id number]) 400 - Serum, Plasma or Blood Eosinophils (Bld) 0.1 10*3/uL Negative 0.0-0.3 PENDING 10-01 [#/Vol] 10*3/uL [facility] 020 [facility] 00:50-0 (94129) 400 Eosinophils/100 WBC 2 % Negative 0-10 % PENDING 10-01 (Bld) [facility] 020 [facility] 00:50-0 (09924) 400 Erythrocyte 15.1 % High 10.0-14.5 PENDING distribution width % [facility] 020 (RBC) [Ratio] [facility] 00:50-0 (96321) 400 Glucose [Mass/Vol] 387 mg/dL High 70-105 PENDING 06-0 3-2 mg/dL [facility] 020 [facility] 00:50-0 (06316) 400 Glucose [Mass/Vol] 431 mg/dL Critically 70-110 PENDING 2 high mg/dL [facility] 020 [facility] 06:02-0 (66561) 400 Glucose [Mass/Vol] 381 mg/dL High 70-110 PENDING 06-0 3-2 mg/dL [facility] 020 [facility] 10:22-0 (02547) 400 Glucose [Mass/Vol] 287 mg/dL High 70-110 PENDING 06-0 3-2 mg/dL [facility] 020 [facility] 15:56-0 (29397) 400 Glucose [Mass/Vol] 255 mg/dL High 70-110 PENDING 06-0 3-2 mg/dL [facility] 020 [facility] 20:44-0 (21714) 400 Hematocrit (Bld) 31 % Low 40-54 % PENDING [Volume fraction] [facility] 020 [facility] 00:50-0 (54451) 400 Hemoglobin (Bld) 10.6 g/dL Low 13.3-17.7 PENDING 01-02- 2 [Mass/Vol] g/dL [facility] 020 [facility] 00:50-0 (68881) 400 Lymphocytes (Bld) 1.1 10*3/uL Negative 1.0-4.0 PENDING 06- 03-2 [#/Vol] 10*[address] 00:50-0 (95526) 400 Lymphocytes/100 WBC 19 % Negative 12-44 % PENDING 2 (Bld) [address] 00:50-0 (21776) 400 MCH (RBC) [Entitic 28 pg Negative 25-34 pg PENDING 06-0 3-2 mass] [address] 00:50-0 (11094) 400 MCHC (RBC) 34 g/dL Negative 32-36 g/dL PENDING [Mass/Vol] [address] 00:50-0 (15916) 400 MCV (RBC) [Entitic 84 Negative 80-99 PENDING -0 3-2 vol] [foz_us] [address] 00:50-0 (23963) 400 Monocytes (Bld) 0.4 10*3/uL Negative 0.0-1.0 PENDING 01-02 [#/Vol] 10*[address] 00:50-0 (33733) 400 Monocytes/100 WBC 8 % Negative 0-12 % PENDING 01-02 (Bld) [address] 00:50-0 (47941) 400 Neutrophils (Bld) 4.1 10*3/uL Negative 1.8-7.8 PENDING 10-01 [#/Vol] 10*[address] 00:50-0 (14565) 400 Neutrophils/100 WBC 72 % Negative 42-75 % PENDING 10-01 (Bld) [address] 00:50-0 (51611) 400 Platelet mean volume 10.9 High 7.4-10.4 PENDING (Bld) [Entitic vol] [foz_us] [address] 00:50-0 (69597) 400 Platelets (Bld) 109 10*3/uL Low 130-400 PENDING 01-02 [#/Vol] 10*3/uL [address] 00:50-0 (07346) 400 Potassium 4.3 mmol/L Negative 3.6-5.0 PENDING [Moles/Vol] mmol/L [facility] 020 N S 00:50-0 (75399) 400 Protein [Mass/Vol] 6.1 g/dL Low 6.4-8.2 PENDING - 3-2 g/dL [facility] 00:50-0 (02145) 400 RBC (Bld) [#/Vol] 3.75 10*6/uL Low 4.35-5.85 PENDING 10*6/uL [facility] 00:50-0 (81112) 400 Sodium [Moles/Vol] 131 mmol/L Low 135-145 PENDING 10-01 mmol/L [facility] 020 N S 00:50-0 (98335) 400 Urea nitrogen 27 mg/dL High 7-18 mg/dL PENDING [Mass/Vol] [facility] 020 N S 00:50-0 (60359) 400 Urea 16 mg/mg PENDING nitrogen/Creatinine [facility] 020 [Mass ratio] [facility] 00:50-0 (87201) 400 WBC (Bld) [#/Vol] 5.8 10*3/uL Negative 4.3-11.0 PENDING 10-01 10*3/uL [facility] 020 N S 00:50-0 (37166) 400 not yet categorized on 2020-01-02 COLONY COUNT . Invalid PENDING Interpreta [facility] 020 tion Code N [facility] 13:47-0 (06110) 400 COLONY COUNT <10,000 PENDING [facility] 020 [facility] 13:47-0 ([id number]) 400 SUSCEPTIBILITY SEE COMMENTS PENDING [facility] 020 N S 13:47-0 (35104) 400 laboratory on 2020-01-02 Albumin [Mass/Vol] 3.5 g/dL Negative 3.2-4.5 PENDING - 2-2 g/dL [facility] 020 N S 13:35-0 (48740) 400 ALP [Catalytic 91 U/L Negative 40-136 U/L PENDING activity/Vol] [facility] 13:35-0 (31447) 400 ALT [Catalytic 21 U/L Negative 0-55 U/L PENDING activity/Vol] [facility] 020 [facility] 13:35-0 (52376) 400 Amorphous sediment MOD FRANCIS URATES Abnormal PENDING 09-03 LM Ql (Urine sed) [facility] 020 [facility] 13:47-0 (81429) 400 Anion gap 10 mmol/L Negative 5-14 PENDING [Moles/Vol] mmol/L [facility] 020 [facility] 13:35-0 (24348) 400 aPTT Coag (PPP) 34 s Negative 24-35 s PENDING [Time] [facility] 020 [facility] 13:35-0 (97332) 400 AST [Catalytic 13 U/L Negative 5-34 U/L PENDING activity/Vol] [facility] 020 [facility] 13:35-0 ([id number]) 400 Bacteria identified NG PENDING Cx Nom (Bld) LOCATIO 020 [facility] 13:35-0 ([id number]) 400 Bacteria identified PROGRESS Invalid PENDING Cx Nom (U) Interpreta LOCATIO 020 tion Code N [facility] 13:47-0 ([id number]) 400 Bacteria identified [id number] PENDING Cx Nom (U) LOCATIO 020 [facility] 13:47-0 ([id number]) 400 Bacteria LM Ql Negative Invalid PENDING (Urine sed) Interpreta LOCATIO 020 tion Code [facility] 13:47-0 ([id number]) 400 Basophils (Bld) 0.0 10*3/uL Negative 0.0-0.1 PENDING 01-01 [#/Vol] 10*3/uL LOCATIO 020 [facility] 13:35-0 ([id number]) 400 Basophils/100 WBC 0 % Negative 0-10 % PENDING 01-01 (Bld) LOCATIO 020 [facility] 13:35-0 ([id number]) 400 Bilirubin [Mass/Vol] 0.6 mg/dL Negative 0.1-1.0 PENDING mg/dL LOCATIO 020 [facility] 13:35-0 ([id number]) 400 Bilirubin Ql (U) Negative Invalid NEGATIVE PENDING Interpreta LOCATIO 020 tion Code N [facility] 13:47-0 ([id number]) 400 Calcium [Mass/Vol] 8.7 mg/dL Negative 8.5-10.1 PENDING 06-0 2-2 mg/dL LOCATIO 020 N [facility] 13:35-0 ([id number]) 400 Calcium [Mass/Vol] 9.1 mg/dL Negative 8.5-10.1 PENDING 06-0 2-2 mg/dL LOCATIO 020 N [facility] 13:35-0 ([id number]) 400 Casts LM Ql (Urine NONE Invalid PENDING sed) Interpreta LOCATIO 020 tion Code N [facility] 13:47-0 ([id number]) 400 Chloride [Moles/Vol] 95 mmol/L Low 98-107 PENDING -2 mmol/L LOCATIO 020 N [facility] 13:35-0 (50109) 400 Clarity (U) CLEAR Invalid PENDING Interpreta LOCATIO 020 tion Code [facility] 13:47-0 ([id number]) 400 CO2 [Moles/Vol] 22 mmol/L Negative 21-32 PENDING -02-2 mmol/L LOCATIO 020 [facility] 13:35-0 ([id number]) 400 Color (U) YELLOW Invalid PENDING Interpreta LOCATIO 020 tion Code [facility] 13:47-0 ([id number]) 400 Creatinine 2.00 mg/dL High 0.60-1.30 PENDING 01-01-2 [Mass/Vol] mg/dL LOCATIO 020 [facility] 13:35-0 ([id number]) 400 Creatinine and 33 PENDING 01-01-2 Glomerular LOCATIO 020 filtration N [facility] 13:35-0 rate.predicted panel ([id number]) 400 - Serum, Plasma or Blood CRP [Mass/Vol] 6.91 High 0.00-0.50 PENDING --2 mg/dL LOCATIO 020 [facility] 13:35-0 ([id number]) 400 Crystals LM Ql PRESENT Abnormal PENDING (Urine sed) LOCATIO 020 [facility] 13:47-0 ([id number]) 400 Eosinophils (Bld) 0.1 10*3/uL Negative 0.0-0.3 PENDING 2 [#/Vol] 10*3/uL LOCATIO 020 [facility] 13:35-0 ([id number]) 400 Eosinophils/100 WBC 1 % Negative 0-10 % PENDING 2 (Bld) LOCATIO 020 [facility] 13:35-0 ([id number]) 400 Erythrocyte 14.9 % High 10.0-14.5 PENDING 2 distribution width % LOCATIO 020 (RBC) [Ratio] [facility] 13:35-0 ([id number]) 400 Glucose [Mass/Vol] 543 mg/dL Critically 70-110 PENDING -2 high mg/dL LOCATIO 020 [facility] 13:27-0 ([id number]) 400 Glucose [Mass/Vol] 608 mg/dL Critically 70-105 PENDING -2 high mg/dL LOCATIO 020 [facility] 13:35-0 ([id number]) 400 Glucose Auto test 3+ Abnormal NEGATIVE PENDING 01-01 strip Ql (U) LOCATIO 020 [facility] 13:47-0 ([id number]) 400 Hematocrit (Bld) 32 % Low 40-54 % PENDING 2 [Volume fraction] LOCATIO 020 [facility] 13:35-0 ([id number]) 400 Hemoglobin (Bld) 11.0 g/dL Low 13.3-17.7 PENDING 01-01- 2 [Mass/Vol] g/dL LOCATIO 020 [facility] 13:35-0 ([id number]) 400 INR Coag (Platelet 1.2 Negative 0.8-1.4 PENDING -0 2-2 poor plasma or LOCATIO 020 blood) [Relative N [facility] 13:35-0 time] ([id number]) 400 Ketones Auto test Negative Invalid NEGATIVE PENDING 01-012 strip Ql (U) Interpreta LOCATIO 020 tion Code N [facility] 13:47-0 ([id number]) 400 Lactate [Moles/Vol] 0.85 mmol/L Negative 0.50-2.00 PENDING 0 6-02-2 mmol/L LOCATIO 020 [facility] 13:35-0 ([id number]) 400 Leukocyte esterase Negative Invalid NEGATIVE PENDING -0 2-2 Test strip Ql (U) Interpreta LOCATIO 020 tion Code N [facility] 13:47-0 ([id number]) 400 Lymphocytes (Bld) 0.9 10*3/uL Low 1.0-4.0 PENDING - 02-2 [#/Vol] 10*3 LOCATIO 020 [facility] 13:35-0 (23277) 400 Lymphocytes/100 WBC 14 % Negative 12-44 % PENDING - 02-2 (Bld) LOCATIO 020 [facility] 13:35-0 ([id number]) 400 MCH (RBC) [Entitic 29 pg Negative 25-34 pg PENDING 06-0 2-2 mass] LOCATIO 020 [facility] 13:35-0 ([id number]) 400 MCHC (RBC) 35 g/dL Negative 32-36 g/dL PENDING -02-2 [Mass/Vol] LOCATIO 020 [facility] 13:35-0 ([id number]) 400 MCV (RBC) [Entitic 83 Negative 80-99 PENDING 06-0 2-2 vol] [foz_us] [address] 13:35-0 (97501) 400 Monocytes (Bld) 0.6 10*3/uL Negative 0.0-1.0 PENDING -02 -2 [#/Vol] 10*3 [facility] [address] [place] [address] 13:35-0 (71610) 400 Monocytes/100 WBC 10 % Negative 0-12 % PENDING -02 -2 (Bld) [facility] [address] [place] [address] 13:35-0 ([id number]) 400 Mucus Ql (Urine sed) Negative Invalid PENDING 01-01 -2 Interpreta LOCATIO 020 tion Code [facility] 13:47-0 ([id number]) 400 Natriuretic peptide 228.9 pg/mL High <100.0 PENDING 0 6-02-2 B (Bld) [Mass/Vol] pg/mL LOCATIO 020 [facility] 13:35-0 (65627) 400 Neutrophils (Bld) 5.0 10*3/uL Negative 1.8-7.8 PENDING - 02-2 [#/Vol] 10*3 LOCATIO 020 [facility] 13:35-0 (53677) 400 Neutrophils/100 WBC 75 % Negative 42-75 % PENDING - 02-2 (Bld) LOCATIO 020 [facility] 13:35-0 (56051) 400 Nitrite Ql (U) Negative Invalid NEGATIVE PENDING Interpreta LOCATIO 020 tion Code N [facility] 13:47-0 ([id number]) 400 pH (U) 5.5 [pH] Invalid 5-9 PENDING Interpreta LOCATIO 020 tion Code N [facility] 13:47-0 ([id number]) 400 Platelet mean volume 10.6 High 7.4-10.4 PENDING (Bld) [Entitic vol] [foz_us] LOCATIO 020 [facility] 13:35-0 (81797) 400 Platelets (Bld) 112 10*3/uL Low 130-400 PENDING 01-01 [#/Vol] 10*3/uL LOCATIO 020 [facility] 13:35-0 (05863) 400 Potassium 4.5 mmol/L Negative 3.6-5.0 PENDING [Moles/Vol] mmol/L LOCATIO 020 [facility] 13:35-0 ([id number]) 400 Protein [Mass/Vol] 6.6 g/dL Negative 6.4-8.2 PENDING -0 2-2 g/dL LOCATIO 020 [facility] 13:35-0 ([id number]) 400 Protein Ql (U) 1+ Abnormal NEGATIVE PENDING LOCATIO 020 [facility] 13:47-0 (64713) 400 PT Coag (PPP) [Time] 15.4 s High 12.2-14.7 PENDING s LOCATIO 020 [facility] 13:35-0 (01109) 400 RBC (Bld) [#/Vol] 3.83 10*6/uL Low 4.35-5.85 PENDING 10*6/uL LOCATIO 020 [facility] 13:35-0 (42304) 400 RBC LM.HPF (Urine RARE Invalid PENDING sed) [#/Area] Interpreta LOCATIO 020 tion Code N [facility] 13:47-0 (25551) 400 RBC Ql (U) Negative Invalid NEGATIVE PENDING Interpreta LOCATIO 020 tion Code N [facility] 13:47-0 (40745) 400 Sodium [Moles/Vol] 127 mmol/L Low 135-145 PENDING 09-03 mmol/L LOCATIO 020 [facility] 13:35-0 (86079) 400 Specific gravity (U) <= Invalid 1.016-1.02 PENDING 0 [Rel density] Interpreta 2 LOCATIO 020 tion Code N [facility] 13:47-0 (28353) 400 Urea nitrogen 33 mg/dL High 7-18 mg/dL PENDING [Mass/Vol] LOCATIO 020 [facility] 13:35-0 (93997) 400 Urea 17 mg/mg PENDING nitrogen/Creatinine LOCATIO 020 [Mass ratio] [facility] 13:35-0 (69864) 400 Urobilinogen (U) 0.2 mg/dL Invalid < = 1.0 PENDING [Mass/Vol] Interpreta mg/dL LOCATIO 020 tion Code N [facility] 13:47-0 (36087) 400 WBC (Bld) [#/Vol] 6.7 10*3/uL Negative 4.3-11.0 PENDING 09-03 10*3/uL LOCATIO 020 [facility] 13:35-0 (80387) 400 WBC LM.HPF (Urine RARE Invalid PENDING sed) [#/Area] Interpreta LOCATIO 020 tion Code N [facility] 13:47-0 ([id number]) 400 laboratory on 2019-04-19 INR Coag (Platelet 2.3 Invalid 1.0-4.0 Hospita 091 8-2 poor plasma or Interpreta l 019 blood) [Relative tion Code Distric 14:10-0 time] t #1 of 400 [facility] ([id number]) PT Coag (PPP) [Time] 27.4 s High 9.9-12.8 Hospita 18-2 Sec l 019 Distric 14:10-0 t #1 of 400 [facility] ([id number]) laboratory on 2019-03-31 INR Coag (Platelet 1.3 Invalid 1.0-4.0 Hospita 08-3 0-2 poor plasma or Interpreta l 019 blood) [Relative tion Code Distric 11:40-0 time] t #1 of 400 [facility] ([id number]) PT Coag (PPP) [Time] 14.7 s High 9.9-12.8 Hospita 08 -30-2 Sec l 019 Distric 11:40-0 t #1 of 400 [facility] ([id number]) laboratory on 2019-03-22 INR Coag (Platelet 1.2 Invalid 1.0-4.0 Hospita 08-2 1-2 poor plasma or Interpreta l 019 blood) [Relative tion Code Distric 12:20-0 time] t #1 of 400 [facility] ([id number]) PT Coag (PPP) [Time] 13.5 s High 9.9-12.8 Hospita 08 -21-2 Sec l 019 Distric 12:20-0 t #1 of 400 [facility] () glucose glucometer (bldc) [mass/vol] on 2018-04-08 Glucose [Mass/Vol] 336 mg/dL High 70-110 Via [facility] ([id number]) wbc auto (bld) [#/vol] on 2018-04-07 WBC (Bld) [#/Vol] 6.4 10*3/uL 4.3-11.0 Via [facility] (66576) urea nitrogen/creatinine [mass ratio] on 2018-04-07 Urea 20 mg/mg Via nitrogen/Creatinine [facility] [Mass ratio] [facility] (23633) urea nitrogen [mass/vol] on 2018-04-07 Urea nitrogen 26 mg/dL High 7-18 Via [Mass/Vol] [facility] (12273) sodium [moles/vol] on 2018-04-07 Sodium [Moles/Vol] 135 mmol/L 135-145 Via [facility] (24073) rbc auto (bld) [#/vol] on 2018-04-07 RBC (Bld) [#/Vol] 3.89 10*6/uL Low 4.35-5.85 Via [facility] (40362) potassium [moles/vol] on 2018-04-07 Potassium 4.4 mmol/L 3.6-5.0 Via [Moles/Vol] [facility] (83733) platelets auto (bld) [#/vol] on 2018-04-07 Platelets (Bld) 135 10*3/uL 130-400 Via [#/Vol] [facility] (36027[facility] platelet mean volume auto (bld) [entitic vol] on 2018-04-07 Platelet mean volume 10.7 fL High 7.4-10.4 Via (Bld) [Entitic vol] Pinky [facility] judy [facility] (97423) neutrophils/100 wbc auto (bld) on 2018-04-07 Neutrophils/100 WBC 62 % 42-75 Via (Bld) [facility] (56286) neutrophils auto (bld) [#/vol] on 2018-04-07 Neutrophils (Bld) 4.0 10*3/uL 1.8-7.8 Via [#/Vol] [facility] (43085) monocytes/100 wbc (bld) on 2018-04-07 Monocytes/100 WBC 12 % 0-12 Via (Bld) Pinky [facility] judy [facility] (97024) monocytes auto (bld) [#/vol] on 2018-04-07 Monocytes (Bld) 0.8 10*3/uL 0.0-1.0 Via [#/Vol] Pinky [facility] judy [facility] (38248) mcv auto (rbc) [entitic vol] on 2018-04-07 MCV (RBC) [Entitic 89 fL 80-99 Via vol] [facility] judy [facility] (17381) mchc auto (rbc) [mass/vol] on 2018-04-07 MCHC (RBC) 36 g/dL 32-36 Via [Mass/Vol] [facility] judy [facility] (53183) mch auto (rbc) [entitic mass] on 2018-04-07 MCH (RBC) [Entitic 32 pg 25-34 Via mass] [facility] (07988) lymphocytes/100 wbc auto (bld) on 2018-04-07 Lymphocytes/100 WBC 25 % 12-44 Via (Bld) [facility] judy [facility] (84697) lymphocytes auto (bld) [#/vol] on 2018-04-07 Lymphocytes (Bld) 1.6 10*3/uL 1.0-4.0 Via [#/Vol] Pinky [facility] l [facility] (55763) hemoglobin (bldv) [mass/vol] on 2018-04-07 Hemoglobin (Bld) 12.4 g/dL Low 13.3-17.7 Via [Mass/Vol] Pinky [facility] l [facility] [place] rg (64115) hematocrit (bld) [volume fraction] on 2018-04-07 Hematocrit (Bld) 35 % Low 40-54 Via [Volume fraction] Pinky [facility] l [facility] [place] rg (79680) glucose [mass/vol] on 2018-04-07 Glucose [Mass/Vol] 279 mg/dL High 70-105 Via Pinky [facility] l [facility] [place] rg (95011) erythrocyte distribution width auto (rbc) [ratio] on 2018-04-07 Erythrocyte 15.4 % High 10.0-14.5 Via distribution width [facility] (RBC) [facility] (74497) eosinophils/100 wbc auto (bld) on 2018-04-07 Eosinophils/100 WBC 2 % 0-10 Via (Bld) Pinky [facility] rg (44238) eosinophils auto (bld) [#/vol] on 2018-04-07 Eosinophils (Bld) 0.1 10*3/uL 0.0-0.3 Via [#/Vol] Pinky [facility] rg (62078) creatinine and glomerular filtration rate.predicted panel (s/p/bld) on 2018-04-07 GFR/1.73 sq 54 mL/min/{1.73_m2} Via James.predicted among [facility] non-blacks MDRD Hospita (S/P/Bld) [Vol l rate/Area] [facility] (03508) creatinine [mass/vol] on 2018-04-07 Creatinine 1.33 mg/dL High 0.60-1.30 Via [Mass/Vol] Pinky [facility] rg (61228) chloride [moles/vol] on 2018-04-07 Chloride [Moles/Vol] 103 mmol/L 98-107 Via Pinky [facility] rg (80571) carbon dioxide on 2018-04-07 CO2 [Moles/Vol] 21 mmol/L 21-32 Via [facility] rg (06560) calcium [mass/vol] on 2018-04-07 Calcium [Mass/Vol] 9.2 mg/dL 8.5-10.1 Via [facility] (68473) basophils/100 wbc auto (bld) on 2018-04-07 Basophils/100 WBC 0 % 0-10 Via (Bld) [facility] () basophils auto (bld) [#/vol] on 2018-04-07 Basophils (Bld) 0.0 10*3/uL 0.0-0.1 Via [#/Vol] [facility] (69739) anion gap [moles/vol] on 2018-04-07 Anion gap 11 mmol/L 5-14 Via [Moles/Vol] [facility] () protein [mass/vol] on 2018-04-06 Protein [Mass/Vol] 6.4 g/dL 6.4-8.2 Via [facility] () calcium measurement corrected for albumin on 2018-04-06 Albumin [Mass/Vol] 9.1 g/dL 8.5-10.1 Via [facility] (60403) bilirubin [mass/vol] on 2018-04-06 Bilirubin [Mass/Vol] 1.0 mg/dL 0.1-1.0 Via [facility] (33270) ast [catalytic activity/vol] on 2018-04-06 AST [Catalytic 14 U/L 5-34 Via activity/Vol] [facility] (08939) alt [catalytic activity/vol] on 2018-04-06 ALT [Catalytic 24 U/L 0-55 Via activity/Vol] [facility] (79588) alp [catalytic activity/vol] on 2018-04-06 ALP [Catalytic 68 U/L 40-136 Via activity/Vol] [facility] (99511) albumin [mass/vol] on 2018-04-06 Albumin [Mass/Vol] 3.7 g/dL 3.2-4.5 Via [facility] (47277) wbc lm.hpf (urine sed) [#/area] on 2018-04-05 WBC LM.HPF (Urine Via sed) [#/Area] [facility] [place] [facility] (17376) urobilinogen auto test strip (u) [mass/vol] on 2018-04-05 Urobilinogen (U) NORMAL NORMAL Via [Mass/Vol] [facility] [place] [facility] (13248) urinalysis complete w reflex culture panel (u) on 2018-04-05 Urinalysis complete NO Via W Reflex Culture Pinky panel - Urine [facility] judy [place] [facility] (50476) specific gravity test strip (u) [rel density] on 2018-04-05 Specific gravity (U) 1.020 1.016-1.02 Via [Rel density] 2 [facility] jud[facility] [place] [facility] (42325) rbc lm.hpf (urine sed) [#/area] on 2018-04-05 RBC LM.HPF (Urine NONE Via sed) [#/Area] [facility] jud[facility] [place] [facility] (44328) rbc lm ql (urine sed) on 2018-04-05 RBC Ql (U) Negative NEGATIVE Via [facility] judy [place] [facility] (85556) pt coag (ppp) [time] on 2018-04-05 PT Coag (PPP) [Time] 14.1 s 12.2-14.7 Via [facility] ujdy [place] [facility] (31132) protein test strip ql (u) on 2018-04-05 Protein Ql (U) 3+ Invalid NEGATIVE Via Interpreta Pinky tion Code [facility] judy [place] [facility] ([id number]) ph test strip (u) on 2018-04-05 pH (U) 5 [pH] 5-9 Via [facility] judy [place] [facility] (20593) nitrite test strip ql (u) on 2018-04-05 Nitrite Ql (U) Negative NEGATIVE Via [facility] judy [place] [facility] (43417) mucus lm ql (urine sed) on 2018-04-05 Mucus Ql (Urine sed) Negative Via [facility] judy [place] [facility] (60042) lipase [catalytic activity/vol] on 2018-04-05 Lipase [Catalytic 35 U/L 8-78 Via activity/Vol] [facility] judy [place] [facility] (27149) leukocyte esterase test strip ql (u) on 2018-04-05 Leukocyte esterase 1+ Invalid NEGATIVE Via Test strip Ql (U) Interpreta Pinky [facility] [place] [facility] (71288) lactate [moles/vol] on 2018-04-05 Lactate [Moles/Vol] 1.68 mmol/L 0.50-2.00 Via [facility] [place] [facility] ([id number]) lactate (bld) [moles/vol] on 2018-04-05 Lactate [Moles/Vol] 2.34 mmol/L Invalid 0.50-2.00 Via Interpreta Pinky tion Code Hospita l [place] [facility] (94415) ketones auto test strip ql (u) on 2018-04-05 Ketones Auto test 1+ Invalid NEGATIVE Via strip Ql (U) Interpreta Pinky tion Code [facility]ospita l [place] (85248) inr coag (platelet poor plasma or blood) [relative time] on 2018-04-05 INR Coag (Platelet 1.1 0.8-1.4 Via poor plasma or Pinky blood) [Relative Hospita time] l [place] [facility] (31560) glucose auto test strip ql (u) on 2018-04-05 Glucose Auto test 4+ Invalid NEGATIVE Via strip Ql (U) Interpreta Pinky tion Code [facility]ospita l [place] (68385) epithelial cells.squamous lm ql (urine sed) on 2018-04-05 Epithelial Via cells.squamous LM Ql Pinky (Urine sed) [facility] [place] [facility] (97672) crystals lm ql (urine sed) on 2018-04-05 Crystals LM Ql PRESENT Invalid Via (Urine sed) Interpreta Pinky tion Code [facility] l [place] rg (68144) crp [mass/vol] on 2018-04-05 CRP [Mass/Vol] 4.06 mg/L High 0.00-0.50 Via [facility] [place] [facility] (80142) color (u) on 2018-04-05 Color (U) YELLOW Via [facility] [place] [facility] (65398) clarity (u) on 2018-04-05 Clarity (U) CLEAR Via Pinky [facility] l [place] [facility] (79046) casts lm ql (urine sed) on 2018-04-05 Casts LM Ql (Urine NONE Via sed) [facility] l [place] [facility] (57502) bilirubin test strip ql (u) on 2018-04-05 Bilirubin Ql (U) Negative NEGATIVE Via Pinky [facility] rg (28140) bacteria lm ql (urine sed) on 2018-04-05 Bacteria LM Ql NONE Via (Urine sed) [facility] ([id number]) bacteria identified cx nom (u) on 2018-04-05 Bacteria identified NO GROWTH Via Cx Nom (U) [facility] rg (31440) bacteria identified cx nom (bld) on 2018-04-05 Bacteria identified No growth Via Cx Nom (Bld) [facility] (97724) aptt coag (ppp) [time] on 2018-04-05 aPTT Coag (PPP) 27 s 24-35 Via [Time] [facility] ([id number]) amorphous sediment lm ql (urine sed) on 2018-04-05 Amorphous sediment MOD FRANCIS URATES Invalid Via LM Ql (Urine sed) Interpreta Pinky tion Code [facility] ([id number]) Social History No Information Vital Signs The data below is from unstructured sources Vital Response Date/Time Temperature (Fahrenheit) 97.0 degree s F (97.6 - 99.5) 11/13/2016 10:30am Temperature (Calculated Celsius) 36. 19914 degrees C (36.4 - 37.5) 11/13/2016 8:16am [...] inches 11/10/2016 2:00pm Height (Calculated Centimeters) 180. 584592 cm 11/10/2016 2:00pm Weight (Pounds) 350 pounds 11/10/2016 2:00pm Weight (Ounces) 0.0 oz 0 11/10/2016 2:00pm Weight (Calculated Grams) 815354.33 gm 11/10/2016 2:00pm Weight (Calculated Kilograms) 158.75 7331 kilograms 11/10/2016 2:00pm Calculated BMI 48.8 10/31 2:00pm Capillary Refill Capillary Refill Less Than 3 Seconds 11/10/2016 9:44am Vital Response Date/Time Temperature (Fahrenheit) 97.9 degree s F (97.6 - 99.5) 11/18/2016 12:36pm Temperature (Calculated Celsius) 36. 20467 degrees C (36.4 - 37.5) 11/18/2016 5:09am [...] inches 11/13/2016 10:32pm Height (Calculated Centimeters) 180. 478713 cm 11/13/2016 10:32pm Weight (Pounds) 350 pounds 11/18/2016 5:13am Weight (Ounces) 0.0 oz 0 11/13/2016 10:32pm Weight (Calculated Grams) 613155.331 gm 11/18/2016 5:13am Weight (Calculated Kilograms) 158.75 7331 kilograms 11/18/2016 5:13am Calculated BMI 48.8 10/31 10:32pm Capillary Refill Capillary Refill Less Than 3 Seconds 11/10/2016 9:44am Vital Response Date/Time Temperature (Fahrenheit) 97.8 degree s F (97.6 - 99.5) 08/07/2015 1:55pm Temperature (Calculated Celsius) 36. 27371 degrees C (36.4 - 37.5) 08/07/2015 1:55pm [...] inches 08/07/2015 7:23am Height (Calculated Centimeters) 182. 904308 cm 08/07/2015 7:23am Weight (Pounds) 345 pounds 08/07/2015 7:23am Weight (Calculated Grams) 381339.369 gm 08/07/2015 7:23am Weight (Calculated Kilograms) 156.48 9369 kilograms 08/07/2015 7:23am Calculated BMI 46.78 01/2016 7:23am Vital Response Date/Time Temperature (Fahrenheit) 97.8 degree s F (97.6 - 99.5) Temperature (Calculated Celsius) 36. 38587 degrees C (36.4 - 37.5) Temperature Source Tympanic Pulse Rate (adult) 63 bpm (60 - 90) Respiratory Rate 20 bpm (12 - 24) O2 Sat by Pulse Oximetry 96 % (88 - 100) Blood Pressure 130/83 mm Hg Pain Pain Intensity 0 Height (Feet) 6 feet Height (Inches) 0.00 inches Height (Calculated Centimeters) 182. 199193 cm Weight (Pounds) 335 pounds Weight (Ounces) 0.5 oz Weight (Calculated Grams) 268385.620 gm Weight (Calculated Kilograms) 151.96 7620 kilograms Calculated BMI 45.43 Vital Response Date/Time Temperature (Fahrenheit) 98.0 degree s F (97.6 - 99.5) 02/09/2018 2:37pm Temperature (Calculated Celsius) 36. 35917 degrees C (36.4 - 37.5) 02/09/2018 2:37pm [...] feet 06/2018 2:37pm Height (Calculated Centimeters) 182. 652307 cm 02/09/2018 2:37pm Weight (Pounds) 342 pounds 02/09/2018 2:37pm Weight (Calculated Grams) 136115.59 gm 02/09/2018 2:37pm Weight (Calculated Kilograms) 155.12 8592 kilograms 02/09/2018 2:37pm Weight Method Stated 06/2018 2:37pm Capillary Refill Capillary Refill Less Than 3 Seconds 02/09/2018 2:37pm Height 6 ft 0 in 018 2:37pm Weight 342 lb 02/09/2018 2:37pm Body Mass Index 46.4 kg/m^2 02/09/2018 2:37pm Vital Response Date/Time Temperature (Fahrenheit) 97.5 degree s F (97.6 - 99.5) 04/08/2018 8:00am Temperature (Calculated Celsius) 36. 70881 degrees C (36.4 - 37.5) 04/08/2018 8:00am [...] inches 04/06/2018 12:45am Height (Calculated Centimeters) 182. 477911 cm 04/06/2018 12:45am Height Method Stated 10/2017 3:44pm Weight (Pounds) 330 pounds 04/06/2018 12:45am Weight (Ounces) 0.0 oz 0 04/06/2018 12:45am Weight (Calculated Grams) 174897.48 gm 04/06/2018 12:45am Weight (Calculated Kilograms) 149.68 5484 kilograms 04/06/2018 12:45am Calculated BMI 44.8 11/2017 12:45am Weight Method Stated 10/2017 3:44pm Weight Measurement Method Built in [facility] 04/06/2018 12:45am Capillary Refill Capillary Refill Less Than 3 Seconds 04/07/2018 8:45pm Vital Response Date/Time Temperature (Fahrenheit) 97.5 degree s F (97.6 - 99.5) 04/08/2018 8:00am Temperature (Calculated Celsius) 36. 71690 degrees C (36.4 - 37.5) 04/08/2018 8:00am [...] inches 04/06/2018 12:45am Height (Calculated Centimeters) 182. 311381 cm 04/06/2018 12:45am Height Method Stated 10/2017 3:44pm Weight (Pounds) 330 pounds 04/06/2018 12:45am Weight (Ounces) 0.0 oz 0 04/06/2018 12:45am Weight (Calculated Grams) 240466.48 gm 04/06/2018 12:45am Weight (Calculated Kilograms) 149.68 5484 kilograms 04/06/2018 12:45am Calculated BMI 44.8 11/2017 12:45am Weight Method Stated 10/2017 3:44pm Weight Measurement Method Built in [facility] 04/06/2018 12:45am Capillary Refill Capillary Refill Less Than 3 Seconds 04/07/2018 8:45pm Functional Status The data below is from unstructured sources Query Response Date Neo rded Patient Orientation Person Place Time Situation November 12, 2016 1:07pm Patient Orientation Person Place Time Situation November 13, 2016 8:00am Comprehension Ability Understands Co ncepts November 13, 2016 8:00am Query Response Date Neo rded Patient Orientation Person Place Time Situation November 17, 2016 12:12pm Patient Orientation Person Place Time Situation November 18, 2016 9:00am Comprehension Ability Understands Co ncepts November 18, 2016 9:00am Query Response Date Neo rded Patient Orientation Person Place Time Situation August 07, 2015 2:32pm Query Response Date Neo rded Patient Orientation Normal For Age January 28, 2015 1:43pm Comprehension Ability Understands Co ncepts January 29, 2015 7:31am Query Response Date Neo rded Comprehension Ability Understands Co ncepts February 09, 2018 3:05pm Query Response Date Neo rded Patient Orientation Person Place Time Situation April 07, 2018 10:34am Comprehension Ability Understands Co ncepts April 08, 2018 8:00am Query Response Date Neo rded Patient Orientation Person Place Time Situation April 07, 2018 10:34am Comprehension Ability Understands Co ncepts April 08, 2018 8:00am Mental Status No Information Clinical Notes 2020-01-02 Note Date & Note Facility Type 01-02-2020 CULTURE PENDING (L) culture already in progress PENDING LOCATION [facility] Urinalysis (08699) complete W Reflex Culture panel (U) Note NAME: ELMO GARCIA ~MED REC#: [id number] ~ACCOUNT#: [facility]ENDING LOCATION [facility] [id number] ~PHYSICIAN: ROSELYN FREEMAN PT ~Therapy P rogress Note (55930) ~Patient adamantly declined PT this a.m . stating, "I'm not doing anything today." PT attempted to ~educa te and encourage patient to participate to increase strength, howev er, patient continued to ~refuse. ~1 ref (810) ~ ~ ~ ~Vito FREEMAN PT Jan 04, 2020 09:06 ~ ~ ~<Created by ROSELYN FREEMAN PT> ~<Dorothy ctronically signed by ROSELYN FREEMAN PT> 01/04/20 0906 ~ ~ Note NAME: ELMO GARCIA ~MED REC#: [id number] ~ACCOUNT#: [facility]ENDING LOCATION [facility] [id number] ~PHYSICIAN: ROSELYN FREEMAN PT ~Therapy P rogress Note (88747) ~Patient declined PT again stating he i s having trouble with his blood sugar. Patient was sleeping ~upon PT entering room. Will attempt later today. ~1 ref (945) ~ ~ ~ ~ROSELYN FREEMAN PT Jan 04, 2020 09:59 ~ ~ ~<Created by ROSELYN CALLAWAY PT> ~<Electronically signed by ROSELYN FREEMAN PT> 01/04/20 1 000 ~ ~ Note NAME: ELMO GARCIA ~MED REC#: [id number] ~ACCOUNT#: [facility]ENDING LOCATION [facility] [id number] ~PHYSICIAN: BETTY STRONG PT ~Therapy Pro magi Note ([id number]) ~Patient refused physical therapy this afternoon. He says he is having a little trouble breathing, ~has his Cpap on, nurse notified. Patient encouraged to perform just exercises in bed and he ~refuses. He says he could have done them yesterday but he cannot today. ~ ~ ~ ~BETTY STRONG PT Ju 2019 15:04 ~ ~ ~<Created by BETTY STRONG PT> ~<Electro nically signed by BETTY STRONG PT> 01/05/20 1504 ~ ~ Note NAME: ELMO GARCIA ~MED REC#: [id number] ~ACCOUNT#: PENDING LOCATION [facility] [id number] ~PHYSICIAN: JOI DOAN PTA ~Therapy P rogress Note (40642) ~Pt refused PT Rx this morning. Pt is N PO for Heart Cath Toe Amputation today. PT will check back~wi pt to resume services tomorrow. ~ ~1 visit, no Rx rendered ~ ~ ~ ~JOI DOAN PTA Jan 10, 2020 09:13 ~ ~ ~<Created by JOI MENDOZA VEHICLE DYNAMICS ENGINEER> ~<Electronically signed by JOI Spangler PTA> 01/10/20 0913 ~ ~ Note NAME: ELMO GARCIA ~MED REC#: [id number] ~ACCOUNT#: [facility] [id number] ~PHYSICIAN: MARIA A KEENE ~Therapy Pr ogress Note ([id number]) ~Pt completing multiple procedures this date. Pt is NPO for procedures. Pt declined any therapies ~ today stating that he has too much "shit" going on. ~1, refusal ~ ~ ~ ~MARIA A KEENE Jan 10, 2020 09:17 ~ ~ ~<Created by MARIA A VYAS> ~<Electronically signed by MARIA A VYAS> 01/10/20 09 17 ~ ~ Note NAME: ELMO GARICA ~MED REC#: [id number] ~ACCOUNT#: [facility] [id number] ~PHYSICIAN: ARMEN MARTINS DO ~Pre-Operat frances Progress (03425) Note ~H P Reviewed ~The H P was reviewe d, patient examined and no changes noted. 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 Site marked ~ ~ ~ ~ARMEN MARTINS DO Jan 10, 2020 11:53 ~ ~ ~<Created by ARMEN MARTINS DO> ~<Electronically signed by Shreya MARTINS DO> 01/10/20 1153 ~ ~ Note NAME: ELMO GARICA ~MED REC#: [id number] ~ACCOUNT#: [facility] [id number] ~PHYSICIAN: MARIA A KEENE ~Therapy Pr ogress Note ([id number]) ~Pt refuses therapy stating "They are m oving me right now upstairs." Pt to be discharged today fr om ~ARU to SWB due to medical issues. ~1 refusal ~ ~ ~ ~MARIA A KEENE Jan 11, 2020 10:57 ~ ~ ~<Created by MARIA A VYAS > ~<Electronically signed by MARIA A VYAS> 01/11/20 1057 ~ ~ Note NAME: ELMO GARCIA Maggy ~MED REC#: [id number] ~ACCOUNT#: [facility] [id number] ~PHYSICIAN: CRISTEL CARDENAS ~Therapy Progress ([id number]) Note ~ST order received, chart reviewed . Patient known to this ST from admit on the ARU. Patient does not ~qualify for ST at this time. ~ ~ ~ ~CRISTEL CARDENAS Dec 13:04 ~ ~ ~<Created by CRISTEL CARDENAS ST> ~<Electronicall y signed by CRISTEL CARDENAS > 01/11/20 1304 ~ ~ Note NAME: ELMO GARCIA ~[facility] REC#: [id number] ~ACCOUNT#: [facility]ING LOC[facility] [id number] ~PHYSICIAN: AARON ANTON OT ~Therap y Progress (86336) Note ~Pt. transferred to swing bed afte r surgery following rehab stay. New orders received. Chart ~revie wed. Pt. declining all attempts at this time for therapy treat ment. Pt. in bed with C-pap and~nasal cannula on. Pt. is flat on ba ck. Wants to keep lying in that position. Pt. states that he ~just needs to rest and catch his breath. Pt. appears to be in no dis tress and asks for TV remote. ~Pt. educated that he is on swi ng bed and needs re-assessed. Pt. states that he knows, but does not ~want to move right now. All needs met. ~ ~[id number] ~1, visit ~ ~ ~ ~AARON ANTON OT Jan 11, 2020 13:2 5 ~ ~ ~<Created by AARON ANTON OT> ~<Electronically signed b y AARON ANTON OT> 01/11/20 1325 ~ ~ Note NAME: ELMO GARCIA Maggy ~MED REC#: [id number] ~ACCOUNT#: [facility] [id number] ~PHYSICIAN: ROSELYN FREEMAN PT ~Therapy P rogress Note (60226) ~Patient declined OT and stated to tell PT not to "bother". PT will attempt in a.m. ~ ~ ~ ~NATASHA FREEMAN PT Jan 11, 2020 14:23 ~ ~ ~<Created by ROSELYN FREEMAN PT> ~<Dorothy ctronically signed by ROSELYN FREEMAN PT> 01/11/20 1423 ~ ~ Note NAME: JENNMARCOELMO ~MED REC#: [id number] ~ACCOUNT#: [facility] [id number] ~PHYSICIAN: BETTY STRONG PT ~Therapy Pro magi Note (05592) ~Patient refused physical therapy this morning stating "I'm not moving, I'm going upstairs right ~now". Patient is going upstairs from rehab to swingbed due to medical i ssues. Nurse states that he~is in fact going right now. ~ ~ ~ ~K BETTY NEVAREZ PT Jan 11, 2020 11:29 ~ ~ ~<Created by BETTY STRONG PT> ~<Electronically signed by BETTY STRONG PT> 01/11/20 1129 ~ ~ Note NAME: ELMO GARCIA ~MED REC#: [id number] ~ACCOUNT#: [facility] [id number] ~PHYSICIAN: ROSELYN FREEMAN PT ~Therapy P rogress Note (31336) ~Patient adamantly declined PT stating, "I want to be left alone." PT attempted to educated patient ~on im portance of increasing activity to improve strength, however, patient continued to decline. ~1 visit (ref 755) ~ ~ ~ ~ROSELYN ZEPEDA PT Jan 13, 2020 08:03 ~ ~ ~<Created by ROSELYN FREEMAN P T> ~<Electronically signed by ROSELYN FREEMAN PT> 01/13/20 0803 ~ ~ Note NAME: ELMO GARCIA ~MED REC#: [id number] ~ACCOUNT#: [facility] [id number] ~PHYSICIAN: James ROSARIO MD ~Cardiolo gy SOAP (90152) Progress Note ~Subjective: ~No signific ant cardiac complaints. ~ ~Objective: ~I O/Vital Signs ~ ~ ~ ~ 01/15/20 01/15/20 ~ ~ 05:47 07:49 08:00 ~ ~Temp 37.0 ~ ~Pulse 68 ~ ~Resp 24 ~ ~B/P (MAP) 116/74 (88) ~ ~Pulse Ox 93 93 93 ~ ~O2 Delivery NIV CPAP NIV CPAP NIV CPAP ~ ~O2 Flow Rate 3.00 5.00 5.00 ~ ~ ~ ~ ~ 01/15/20 ~ ~ 00:00 ~ ~Intake Total 1620 ml ~ ~Output Total 1500 ml ~ ~Balance 120 ml ~ ~ ~Weight (Pounds): 322 ~Weigh t (Ounces): 1.0 ~Weight (Calculated Kilograms): 146.929950 ~Con stitutional: AAO x 3 ~Respiratory: chest is bilaterally symm etric, other (decreased bilateral air entry.) ~Cardiovascular: regular rate-rhythm, S1 and S2; No diastolic murmur, No systolic mu rmur ~Gastrointestional: soft, distended ~Extremities: normal ra nge of motion, non-tender, normal inspection, no lower extremity e kathleen ~bilateral ~Neurologic/Psychiatric: no motor/senso ry deficits, alert, normal mood/affect, oriented x 3 ~Skin: normal color ~ ~Results/Procedures: ~Labs ~Laboratory Tests ~01/14/20 19:53: Glucometer 100 ~01/15/20 05:20: ~Prothro mbin Time 15.7H, INR Comment 1.2, Sodium Level 139, Potassiu m Level 3.9, Chloride Level 108H,~Carbon Dioxide Level 20L, Anion G ap 11, Blood Urea Nitrogen 29H, Creatinine 1.59H, Estimat ~Glomeru lar Filtration Rate 44, BUN/Creatinine Ratio 18, Glucose Level 54*L, Calcium Level 8.4L ~01/15/20 05:35: Glucometer 83 ~01/15/20 10:53: Glucometer 186H ~ ~ ~A/P: ~Assessment/Dx: ~PAD ~CAD ~HTN ~H LP ~Plan: ~ ~Peripheral arterial disease, history of right BKA, had progressive wound that resulted in the ~amputation done in November 2018, followed by BKA. Now having nonhealing wounds to LLE at ante rior felton ~and toes. Underwent toe amputation yesterday morn ing. Peripheral angiogram done yesterday revealing ~severe multis egment stenosis of the left SFA, multiple balloon angioplasty then deployment of Supera~6.5 x 100 in the proximal SFA. The lesions at the mid and distal SFA responded to balloon ~angioplasty with mild recoiling. Total occlusion of the left anterior tibial a rtery, patent peroneal~and posterior tibial, collateral filling th e distal tibial. Mild to moderate disease on the right ~leg. Ath erosclerotic plaques in the abdominal aorta and bifurcation with he avily tortuous iliac ~arteries. Maximize medical therapy. Co ntinue to monitor, will consider intervention on the anterior~t ibial artery as a last resort. Continue to apply nitro patch t o LLE ~ ~Acute on chronic renal insufficiency, continue to monito r renal function. ~ ~Coronary artery disease, history of mu ltiple interventions, total of 8 stents, had bypass surgery ~using single vessel after failed multiple attempts for intervention done at [facility] ~in 2017. 2D echo done October 2019 revea led normal LV size and normal PA pressure, followed by ~Soni ~ ~Hypertension, continue on current medications and con tinue to monitor. ~ ~Hyperlipidemia, intolerant to multiple statin, continue to monitor lipids ~ ~COPD, obstructive sle ep apnea, maintained on C Pap, persistent dyspnea ~ ~Pulmonary hy pertension. ~ ~Diabetes mellitus, followed and managed by prima care physician ~ ~Obesity, educated on weight loss ~ ~Ca rotid stenosis, totally occluded left ICA, less than 40 percent on the right side. Followed at ~primary care physician ~ ~ Vertigo, dizziness, chronic. ~ ~Medical noncompliance. ~ ~ ~Thank you for your consultation. Please call me if you hav e any questions. ~ ~ ~Sheila Rosario MD, FACP, FACC, FSCAI, F HRS, CCDS ~Interventional Cardiology ~Cardiac Electrophysiology ~ Vascular Medicine and Endovascular Interventions ~ ~ ~ ~James SANCHES MD Jan 12, 2020 12:33 ~ ~ ~<Created by KOLTON Winter MD> ~<Electronically signed by KOLTON ROSARIO MD> 0 1715 ~ ~ Note NAME: ELMO GARCIA ~MED REC#: [id number] ~ACCOUNT#: [facility]END[facility] [id number] ~PHYSICIAN: James ROSARIO MD ~Cardiolo gy SOAP () Progress Note ~Subjective: ~No cardiac complaints. ~ ~Objective: ~I O/Vital Signs ~ ~ ~ ~ 01/15/20 0 01/15/20 ~ ~ 05:47 07:49 08:00 ~ ~Temp 37.0 ~ ~Pulse 68 ~ ~Resp 24 ~ ~B/P (MAP) 116/74 (88) ~ ~Pulse Ox 93 93 93 ~ ~O2 Delivery NIV CPAP NIV CPAP NIV CPAP ~ ~O2 Flow Rate 3.00 5.00 5.00 ~ ~ ~ ~ ~ 01/15/20 ~ ~ 00:00 ~ ~Intake Total 1620 ml ~ ~Output Total 1500 ml ~ ~Balance 120 ml ~ ~ ~Weight (Pounds): 322 ~Weight (Ounces): 1.0 ~Weight (Calculated Kilograms): 146.735022 ~Constitutional: AAO x 3 ~Respiratory: chest is bilaterally symmetric, other ( decreased air entry bilaterally.) ~Cardiovascular: regular rate-rhythm, S1 and S2 ~Gastrointestional: distended, audible bowel sounds ~Extremities: no lower extremity edema bilateral ~Priya rologic/Psychiatric: no motor/sensory deficits, alert, normal m ood/affect, oriented x 3 ~Skin: normal color ~ ~Results/Procedur es: ~Labs ~Laboratory Tests ~01/14/20 19:53: Glucometer 100 ~01/15/20 05:20: ~Prothrombin Time 15.7H, INR Comment 1.2, Sodium Level 13 9, Potassium Level 3.9, Chloride Level 108H,~Carbon Dioxide Lev el 20L, Anion Gap 11, Blood Urea Nitrogen 29H, Creatinine 1.59H, Es timat ~Glomerular Filtration Rate 44, BUN/Creatinine Rati o 18, Glucose Level 54*L, Calcium Level 8.4L ~01/15/20 05:35: Gluc ometer 83 ~01/15/20 10:53: Glucometer 186H ~ ~ ~A/P: ~Assessment/D x: ~PAD ~CAD ~HTN ~HLP ~Plan: ~ ~ ~Peripheral arterial disease , history of right BKA, had progressive wound that resulted in the ~amputation done in November 2018, followed by BKA. Now having nonhe aling wounds to LLE at anterior felton ~and toes. Underwent toe amputation yesterday morning. Peripheral angiogram done yest erday revealing ~severe multisegment stenosis of the left SFA, multiple balloon angioplasty then deployment of Supera~6 .5 x 100 in the proximal SFA. The lesions at the mid and distal SFA responded to balloon ~angioplasty with mild recoiling. Total occlusion of the left anterior tibial artery, patent peroneal ~and posterior tibial, collateral filling the distal tibial. M ild to moderate disease on the right ~leg. Atherosclerotic plaques in the abdominal aorta and bifurcation with heavily tortuous iliac ~arteries. Maximize medical therapy. Continue to monitor, w ill consider intervention on the anterior~tibial artery as a last resort. Continue to apply nitro patch to LLE ~ ~Acute on chronic renal insufficiency, continue to monitor renal function. ~ ~ Coronary artery disease, history of multiple interventions, tota l of 8 stents, had bypass surgery ~using single vessel after fail ed multiple attempts for intervention done at [facility] ~in 2016. 2D echo done October 2019 revealed normal LV size and normal PA pressure, followed by Dr. Bedoya ~ ~Hypertension, continue on current medications and continue to monitor. ~ ~Hyperlipidemia, intolerant to multiple statin, continue to monitor lipids ~ ~COPD, obstructive sleep apnea, maintained on C Pap, persistent dyspnea ~ ~Pulmonary hypertension. ~ ~Diabetes me llitus, followed and managed by primary care physician ~ ~Ob esity, educated on weight loss ~ ~Carotid stenosis, totally occlu ded left ICA, less than 40 percent on the right side. Followed at ~primary care physician ~ ~Vertigo, dizziness, chronic. ~ ~Medica l noncompliance. ~ ~ ~Thank you for your consultation. Please call me if you have any questions. ~ ~ ~M. Misael Rosario MD, F ACP, FACC, FSCAI, FHRS, CCDS ~Interventional Cardiology ~Cardia c Electrophysiology ~Vascular Medicine and Endovascular Int erventions ~ ~ ~ ~James ROSARIO MD Jan 13, 2020 21:17 ~ ~ ~<Crea lamin by KOLTON ROSARIO MD> ~<Electronically signed by KOLTON ROSARIO MD> 01/15/20 6856 ~ ~ Note NAME: ELMO GARCIA Maggy ~MED REC#: [id number] ~ACCOUNT#: PENDING [facility] [id number] ~PHYSICIAN: James ROSARIO MD ~Cardiolo gy SOAP () Progress Note ~Subjective: ~No cardiac complaints. ~ ~Objective: ~I O/Vital Signs ~ ~ ~ ~ 01/15/20 0 01/15/20 ~ ~ 05:47 07:49 08:00 ~ ~Temp 37.0 ~ ~Pulse 68 ~ ~Resp 24 ~ ~B/P (MAP) 116/74 (88) ~ ~Pulse Ox 93 93 93 ~ ~O2 Delivery NIV CPAP NIV CPAP NIV CPAP ~ ~O2 Flow Rate 3.00 5.00 5.00 ~ ~ ~ ~ ~ 01/15/20 ~ ~ 00:00 ~ ~Intake Total 1620 ml ~ ~Output Total 1500 ml ~ ~Balance 120 ml ~ ~ ~Weight (Pounds): 322 ~Weight (Ounces): 1.0 ~Weight (Calculated Kilograms): 146.601042 ~Constitutional: AAO x 3 ~Respiratory: chest is bilaterally symmetric, lungs c lear to auscultation ~Cardiovascular: regular rate-rhythm, S 1 and S2 ~Gastrointestional: soft, audible bowel sounds ~Extremities: no lower extremity edema bilateral ~Neurol ogic/Psychiatric: no motor/sensory deficits, alert, normal m ood/affect, oriented x 3 ~Skin: normal color, warm/dry ~ ~Result s/Procedures: ~Labs ~Laboratory Tests ~01/14/20 19:53: Gluco meter 100 ~01/15/20 05:20: ~Prothrombin Time 15.7H, INR Comment 1. 2, Sodium Level 139, Potassium Level 3.9, Chloride Level 108 H,~Carbon Dioxide Level 20L, Anion Gap 11, Blood Urea Nitrogen 29H, Creatinine 1.59H, Estimat ~Glomerular Filtration Rate 44, BUN/Creatinine Ratio 18, Glucose Level 54*L, Calcium Level 8.4L ~01/15/20 05:35: Glucometer 83 ~01/15/20 10:53: Glucometer 186H ~ ~ ~A/P: ~Assessment/Dx: ~PAD, ~CAD, ~Hyperlipidemia. ~Plan: ~Plan: ~ ~Peripheral arterial disease, history of right BKA, had prog ressive wound that resulted in the ~amputation done in November 2018, fo llowed by BKA. Now having nonhealing wounds to LLE at anterior sh in ~and toes. Underwent toe amputation yesterday morning. Periphera l angiogram done yesterday revealing ~severe multisegment stenosis of the left SFA, multiple balloon angioplasty then deployment of Supera~6.5 x 100 in the proximal SFA. The lesions at the mid an d distal SFA responded to balloon ~angioplasty with mild recoilin g. Total occlusion of the left anterior tibial artery, patent per mobley~and posterior tibial, collateral filling the distal tibial. M ild to moderate disease on the right ~leg. Atherosclerotic plaques in the abdominal aorta and bifurcation with heavily tortuous iliac ~arteries. Maximize medical therapy. Continue to monitor, w ill consider intervention on the anterior~tibial artery as a last resort. Continue to apply nitro patch to LLE ~ ~Acute on chronic renal insufficiency, continue to monitor renal function. ~ ~ Coronary artery disease, history of multiple interventions, tota l of 8 stents, had bypass surgery ~using single vessel after fail ed multiple attempts for intervention done at [facility] ~in 2017. 2D echo done October 2019 revealed normal LV size and normal PA pressure, followed by ~[facility] ~ ~Hypertension, continue on current medications and continue to monitor. ~ ~Hyperlipidemia, intolerant to multiple statin, continue to monitor lipids ~ ~COPD, obstructive sleep apnea, maintained on C Pap, persistent dyspnea ~ ~Pulmonary hypertension. ~ ~Diabetes me llitus, followed and managed by primary care physician ~ ~Ob esity, educated on weight loss ~ ~Carotid stenosis, totally occlu ded left ICA, less than 40 percent on the right side. Followed at ~primary care physician ~ ~Vertigo, dizziness, chronic. ~ ~Medica l noncompliance. ~ ~ ~Thank you for your consultation. Please call me if you have any questions. ~ ~ ~James. Misael Rosario MD, F ACP, FACC, FSCAI, FHRS, CCDS ~Interventional Cardiology ~Cardia c Electrophysiology ~Vascular Medicine and Endovascular Int erventions ~ ~ ~ ~James ROSARIO MD Jan 14, 2020 13:56 ~ ~ ~<Crea lamin by KOLTON ROSARIO MD> ~<Electronically signed by KOLTON ROSARIO MD> 01/15/20 0224 ~ ~ Advance Directives Directive Response Recor ded Date/Time Advance Directives No 7:24am Health Care Power of Shower Doors [employer] Panels Fabricator No 01/06/16 7:24am Organ Donor Yes 08/07/15 7:24am Directive Response Recor ded Date/Time Advance Directives No 2:00pm Health Care Power of Shower Doors And Panels Fabricator No 11/10/16 2:00pm Organ Donor Yes 11/10/16 2:00pm Resuscitation Status Full Code 11/10/16 2:00pm Directive Response Recor ded Date/Time Advance Directives No 12:20pm Health Care Power of Shower Doors And Panels Fabricator No 11/13/16 12:20pm Organ Donor Yes 11/13/16 12:20pm Resuscitation Status Full Code 11/13/16 12:20pm Directive Response Recor ded Date/Time Advance Directives No 7:24am Health Care Power of Shower Doors And Panels Fabricator No 08/07/15 7:24am Organ Donor Yes 08/07/15 7:24am Resuscitation Status Full Code 08/07/15 7:24am Directive Response Recor ded Date/Time Advance Directives No 7:30pm Health Care Power of Shower Doors And Panels Fabricator No 01/23/15 7:30pm Organ Donor Yes 01/23/15 7:30pm Resuscitation Status Full Code 01/23/15 7:30pm Directive Response Recor ded Date/Time Advance Directives No 3:39pm Health Care Power of Shower Doors And Panels Fabricator No 02/09/18 3:39pm Organ Donor Yes 02/09/18 3:39pm Resuscitation Status Full Code 02/09/18 3:39pm Directive Response Recor ded Date/Time Advance Directives No 11:45pm Health Care Power of Shower Doors And Panels Fabricator No 04/05/18 11:45pm Organ Donor Yes 04/05/18 11:45pm Resuscitation Status Full Code 04/05/18 11:45pm Discharge Instructions No hospital discharge instructions.No hospital discharge instruction information available.No hospital discharge instruction information available. Patient Instructions Physician Instructions Follow Up/Plan Appointment with Dr Alfred's office in 2-4 weeks CARDIAC CATH DISCHARGE [...] hours. Current inpatient/outpatient. Discharge instructions are currently unavailable.No hospital discharge instruction information available.No hospital discharge [...] This clinical document has been generated using [employer] software that has been certified by the Office of the National Coordinator for Health Information Technology (ONC 15.99.04.3023.Diam.31.00.0.559659) and the National Committee for Turn Down Man (NCQA, as an eMeasure certified technology). FOR [...] BASED ON T HE PRIMARY CLINICAL RECORDS. [facility] [employer] [facility]. provides no warranty or guara ntee of the accuracy or completeness of information in this document.The followi information is based on time limited clinical information
[2020-02-21 11:56] LABS: CREATININE SERUM 1.83 MG/DL (0.60-1.30)
--- OUTSIDE RECORDS SUMMARY | 2020-02-21 11:56 | XMS REPORT | Clinical Summary ---
Author Author [facility] Organization [facility] Address Unknown Phone Unavailable Care Team Providers Care Tread Cutter Name Role Phone Kiel Mayer MD Unavailable Unavailable Chayo Strong APRN Unavailable Unavailable John Dumont MD Unavailable Valerie Cole PA-C Unavailable Irene Fontenot Unavailable Unavailable Carol Alford Unavailable Tyler Bello MD PCP Source Comments Some departments are not documenting in the electronic medical record. If you d o not see the information that you expected, contact Release of Information in [facility] Health Information Management department at [phone] for further assistan ce in locating additional records.[facility] Allergies Comments Active Allergy Reactions Severity [...]
--- OUTSIDE RECORDS SUMMARY | 2020-02-21 11:58 | XMS REPORT | Continuity of Care Document ---
Author Organization Unknown Address Unknown Phone Unavailable Allergies Active Description Code Type Severity Reaction Onset Reported/Identified Relationship to Patient Clinical Status Yes rosuvastatin [id number] Drug Allergy Unknown N/A 04/20/2007 Yes niacin [id number] Drug Allergy Unknown N/A 06/26/2010 Yes fenofibrate [id number] Drug Aller gy Unknown LIVER PROBLEMS 01/23/2015 Medications There is no data. Problems Date Dx Coded Attending Type Code Diagnosis Diagnosed By 07/01/1509 ODILON MALONEP Ot E11. 9 TYPE 2 DIABETES MELLITUS WITHOUT COMPLIC 07/01/1509 ODILON MALONEP Ot G57. 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 0 LOCALIZED ENLARGED LYMPH NODES 07/01/1509 ODILON MALONE [facility] Ot Z89.5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 07/01/1509 ODILON MALONE [facility] Ot Z98.890 OTHER SPECIFIED POSTPROCEDURAL STATES 02/24/2010 [...] 11/08/2010 Ot 414.01 COR ONARY ATHEROSCLEROSIS OF [place] CORON 11/08/2010 Ot 414.04 COR ON ATHEROSCLER ART BYPASS GRAFT 11/08/2010 Ot 414.2 APPRENTICE MACHINIST OUTSIDE JESÚS TOTAL OCCLUSION OF CORONARY ELVIS 11/08/2010 [...] 05/02/2012 Ot 414.01 COR ONARY ATHEROSCLEROSIS OF [place] CORON 05/02/2012 Ot 414.8 CHR ISCHEMIC HRT [...] KIDNEY DISEASE, STAGE III (MODER 01/29/2015 GIL KANH DO, Ot 715.90 OSTEOARTHROS NOS-UNSPEC 01/29/2015 GIL [...] Ot I25. 10 ATHSCL HEART DISEASE OF [place] CORONARY 08/07/2015 BARBIE ALFRED MD Ot I27. 2 OTHER SECONDARY PULMONARY HYPERTENSION 08/07/2015 BARBIE ALFRED MD Ot I65. 23 OCCLUSION AND STENOSIS OF BILATERAL TRAN 08/07/2015 BARBIE ALFRED MD Ot I70.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 [place] ARTERIES OF EXTREMITI 08/07/2015 BARBIE ALFRED MD Ot J44. 9 CHRONIC OBSTRUCTIVE PULMONARY DISEASE, U 08/07/2015 BARBIE ALFRED MD Ot M79.609 PAIN IN UNSPECIFIED LIMB 08/07/2015 BARBIE ALFRED MD Ot Z68. 42 BODY MASS INDEX (BMI) 45.0-49.9, ADULT 08/07/2015 BARBIE ALFRED MD Ot Z79. 02 MINING AND QUARRYING MACHINERY REPAIRER (CURRENT) USE OF ANTITHROMBOTI 08/07/2015 BARBIE ALFRED MD Ot Z79. 4 LONG-TERM (CURRENT) USE OF INSULIN 08/07/2015 BARBIE ALFRED MD Ot Z79.899 OTHER MINING AND QUARRYING MACHINERY REPAIRER (CURRENT) DRUG THERAPY 08/07/2015 BARBIE ALFRED MD, [...] METHICILLIN SUSCEP STAPH INFCT CAUSING D 12/08/2015 UJDY CABRALES MD, Ot M86.9 OSTEOMYELITIS, UNSPECIFIED 12/10/2015 JUDY CABRALES MD, Ot A49.01 METHICILLIN SUSCEP STAPH INFECTION, UNSP 12/10/2015 JUDY CABRALES MD, Ot M86.242 SUBACUTE OSTEOMYELITIS, LEFT HAND 12/10/2015 JUDY CABRALES MD, Ot 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 12/12/2015 JUDY CABRALES MD, Ot M86.242 SUBACUTE OSTEOMYELITIS, LEFT HAND 12/12/2015 JUDY CABRALES MD, Ot 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 12/17/2015 JUDY CABRALES MD, Ot B95.61 METHICILLIN SUSCEP STAPH INFCT CAUSING D 12/17/2015 JUDY CABRALES MD, Ot M86.242 SUBACUTE OSTEOMYELITIS, LEFT HAND 12/17/2015 JUDY CARBALES MD, Ot 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 12/24/2015 JUDY CABRALES [...] HAND 01/08/2016 JUDY CABRALES MD, Ot Z79.2 LONG-TERM (CURRENT) USE OF ANTIBIOTICS 01/08/2016 JUDY CABRALES MD Ot M86.242 SUBACUTE OSTEOMYELITIS, LEFT HAND 01/08/2016 JUDY CABRALES MD Ot Z79.2 LONG-TERM (CURRENT) USE OF ANTIBIOTICS 01/08/2016 JUDY CABRALES MD Ot B95.61 METHICILLIN SUSCEP STAPH INFCT CAUSING D 01/08/2016 JUDY CABRALES MD Ot M86.242 SUBACUTE OSTEOMYELITIS, LEFT HAND 01/08/2016 JUDY CABRALES MD Ot Z79.2 LONG-TERM (CURRENT) USE OF ANTIBIOTICS 01/16/2016 JUDY CABRALES MD Ot B95.61 METHICILLIN SUSCEP STAPH INFCT CAUSING D 01/16/2016 JUDY CABRALES MD Ot M86.242 SUBACUTE OSTEOMYELITIS, LEFT HAND 01/17/2016 JUDY CABRALES MD Ot B95.61 METHICILLIN SUSCEP STAPH INFCT CAUSING D 01/17/2016 JUDY CABRALES MD Ot M86.242 SUBACUTE OSTEOMYELITIS, LEFT HAND 01/17/2016 JUDY CABRALES MD Ot Z79.2 LONG-TERM (CURRENT) USE OF ANTIBIOTICS 01/24/2016 JUDY CABRALES MD Ot A49.01 METHICILLIN SUSCEP STAPH INFECTION, UNSP 01/24/2016 JUDY CABRALES MD Ot M86.242 SUBACUTE OSTEOMYELITIS, LEFT HAND 01/24/2016 JUDY CABRALES MD, Ot Z79.2 LONG-TERM (CURRENT) USE OF ANTIBIOTICS 01/28/2016 JUDY CABRALES MD Ot B95.61 METHICILLIN SUSCEP STAPH INFCT CAUSING D 01/28/2016 JUDY CABRALES MD, Ot M86.242 SUBACUTE OSTEOMYELITIS, LEFT HAND 01/28/2016 JUDY CABRALES MD Ot 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 04/01/2016 Ot 401.9 HYPE RTENSION NOS 04/01/2016 Ot 414.00 COR ON ATHEROSCLER NOS TYPE VESSEL, NATIV 04/01/2016 Ot 401.9 HYPE RTENSION NOS 04/01/2016 Ot 414.00 COR ON ATHEROSCLER NOS TYPE VESSEL, NATIV 04/01/2016 Ot 780.2 SYNC OPE AND COLLAPSE 04/01/2016 Ot V64.3 NO P VIVIAN FOR REASONS NEC 04/01/2016 BARBIE ALFRED MD Ot 414. 01 CORONARY ATHEROSCLEROSIS OF [place] CORON 04/01/2016 BARBIE ALFRED MD Ot 786. [...] Ot I25. 10 ATHSCL HEART DISEASE OF [place] CORONARY 04/01/2016 BARBIE ALFRED MD Ot I65. 23 OCCLUSION AND STENOSIS OF BILATERAL TRAN 04/01/2016 JUDY CABRALES MD Ot B95.61 METHICILLIN SUSCEP STAPH INFCT CAUSING D 04/01/2016 JUDY CABRALES MD, Ot M86.9 OSTEOMYELITIS, UNSPECIFIED 04/01/2016 JUDY CABRALES MD, Ot A49.01 METHICILLIN SUSCEP STAPH INFECTION, UNSP 04/01/2016 JUDY CABRALES MD, Ot M86.242 SUBACUTE OSTEOMYELITIS, LEFT HAND 04/01/2016 JUDY CABRALES MD, Ot 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 04/01/2016 JUDY CABRALES MD, Ot M86.242 SUBACUTE OSTEOMYELITIS, LEFT HAND 04/01/2016 JUDY CABRALES MD, Ot 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 04/01/2016 JUDY CABRALES MD Ot B95.61 METHICILLIN SUSCEP STAPH INFCT CAUSING D 04/01/2016 JUDY CABRALES MD, Ot M86.242 SUBACUTE OSTEOMYELITIS, LEFT HAND 04/01/2016 JUDY CABRALES MD, Ot 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 04/01/2016 JUDY CABRALES MD Ot B95.61 METHICILLIN SUSCEP STAPH INFCT CAUSING D 04/01/2016 JUDY CABRALES MD, Ot M86.242 SUBACUTE OSTEOMYELITIS, LEFT HAND 04/01/2016 JUDY CABRALES MD Ot A49.01 METHICILLIN SUSCEP STAPH INFECTION, UNSP 04/01/2016 JUDY CABRALES MD, Ot M86.242 SUBACUTE OSTEOMYELITIS, LEFT HAND 04/01/2016 JUDY CABRALES MD, Ot Z79.2 LONG-TERM (CURRENT) USE OF ANTIBIOTICS 04/01/2016 JUDY CABRALES MD Ot B95.61 METHICILLIN SUSCEP STAPH INFCT CAUSING D 04/01/2016 JUDY CABRALES MD Ot M86.242 SUBACUTE OSTEOMYELITIS, LEFT HAND 04/01/2016 JUDY CABRALES MD, Ot Z79.2 LONG-TERM (CURRENT) USE OF ANTIBIOTICS 04/02/2016 GIL KAHN [...] MD Ot 414. 01 CORONARY ATHEROSCLEROSIS OF [place] CORON 06/02/2016 BARBIE ALFRED MD Ot 786. [...] Ot I25. 10 ATHSCL HEART DISEASE OF [place] CORONARY 06/02/2016 BARBIE ALFRED MD, Ot I65. 23 OCCLUSION AND STENOSIS OF BILATERAL TRAN 06/02/2016 JUDY CABRALES MD Ot B95.61 METHICILLIN SUSCEP STAPH INFCT CAUSING D 06/02/2016 JUDY CABRALES MD, Ot M86.9 OSTEOMYELITIS, UNSPECIFIED 06/02/2016 JUDY CABRALES MD, Ot A49.01 METHICILLIN SUSCEP STAPH INFECTION, UNSP 06/02/2016 JUDY CABRALES MD, Ot M86.242 SUBACUTE OSTEOMYELITIS, LEFT HAND 06/02/2016 JUDY CABRALES MD, Ot Z79.2 LONG-TERM (CURRENT) USE OF ANTIBIOTICS 06/02/2016 JUDY CABRALES MD, Ot M86.242 SUBACUTE OSTEOMYELITIS, LEFT HAND 06/02/2016 JUDY CABRALES MD, Ot Z79.2 LONG-TERM (CURRENT) USE OF ANTIBIOTICS 06/02/2016 JUDY CABRALES MD Ot B95.61 METHICILLIN SUSCEP STAPH INFCT CAUSING D 06/02/2016 JUDY CABRALES MD, Ot M86.242 SUBACUTE OSTEOMYELITIS, LEFT HAND 06/02/2016 JUDY CABRALES MD, Ot Z79.2 LONG-TERM (CURRENT) USE OF ANTIBIOTICS 06/02/2016 JUDY CABRALES MD Ot B95.61 METHICILLIN SUSCEP STAPH INFCT CAUSING D 06/02/2016 JUDY CABRALES MD, Ot M86.242 SUBACUTE OSTEOMYELITIS, LEFT HAND 06/02/2016 JUDY CABRALES MD Ot A49.01 METHICILLIN SUSCEP STAPH INFECTION, UNSP 06/02/2016 JUDY CABRALES MD Ot M86.242 SUBACUTE OSTEOMYELITIS, LEFT HAND 06/02/2016 SAMRA FRANCO, JUDY Murray Ot Z79.2 LONG-TERM (CURRENT) USE OF ANTIBIOTICS 06/02/2016 JUDY CABRALES MD Ot B95.61 METHICILLIN SUSCEP STAPH INFCT CAUSING D 06/02/2016 JUDY CABRALES MD, Ot M86.242 SUBACUTE OSTEOMYELITIS, LEFT HAND 06/02/2016 JUDY CABRALES MD, Ot 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 06/02/2016 GIL KAHN [...] STATUS 07/08/2016 PRIMO FRANCOIS APRN Ot Z79.02 MINING AND QUARRYING MACHINERY REPAIRER (CURRENT) USE OF ANTITHROMBOTI 07/08/2016 PRIMO FRANCOIS APRN Ot Z79.82 MINING AND QUARRYING MACHINERY REPAIRER (CURRENT) USE OF ASPIRIN 07/08/2016 PRIMO FRANCOIS APRN Ot Z79.84 MINING AND QUARRYING MACHINERY REPAIRER (CURRENT) USE OF ORAL HYPOGLYC 07/08/2016 PRIMO FRANCOIS APRN Ot Z79.899 OTHER MINING AND QUARRYING MACHINERY REPAIRER (CURRENT) DRUG THERAPY 07/08/2016 PRIMO FRANCOIS APRN [...] STATUS 07/09/2016 PRIMO FRANCOIS APRN Ot Z79.02 LONG-TERM (CURRENT) USE OF ANTITHROMBOTI 07/09/2016 PRIMO FRANCOIS APRN Ot Z79.82 LONG-TERM (CURRENT) USE OF ASPIRIN 07/09/2016 PRIMO FRANCOIS APRN Ot Z79.84 LONG-TERM (CURRENT) USE OF ORAL HYPOGLYC 07/09/2016 PRIMO FRANCOIS APRN Ot Z79.899 OTHER MINING AND QUARRYING MACHINERY REPAIRER (CURRENT) DRUG THERAPY 07/09/2016 PRIMO FRANCOIS APRN [...] 11/11/2016 CASSY PALACIO MD Ot Z79 .4 MINING AND QUARRYING MACHINERY REPAIRER (CURRENT) USE OF INSULIN 11/11/2016 CASSY PALACIO [...] 11/13/2016 CASSY PALACIO MD Ot Z79 .4 MINING AND QUARRYING MACHINERY REPAIRER (CURRENT) USE OF INSULIN 11/13/2016 CASSY PALACIO [...] Ot I25.1 0 ATHSCL HEART DISEASE OF [place] CORONARY 11/18/2016 ARMEN TENORIO MD Ot I65.2 9 OCCLUSION AND STENOSIS OF UNSPECIFIED CA 11/18/2016 ARMEN TENORIO MD Ot L03.1 15 CELLULITIS OF RIGHT LOWER LIMB 11/18/2016 ARMEN TENORIO MD Ot Z68.4 2 BODY MASS INDEX (BMI) 45.0-49.9, ADULT 11/18/2016 ARMEN TENORIO MD Ot Z79.4 MINING AND QUARRYING MACHINERY REPAIRER (CURRENT) USE OF INSULIN 11/18/2016 ARMEN TENORIO [...] DO Ot I25.10 ATHSCL HEART DISEASE OF [place] CORONARY 02/09/2018 MISAEL THORNTON DO Ot I25.2 [...] 02/09/2018 EDILMA THORNTON DOA K Ot Z79.02 MINING AND QUARRYING MACHINERY REPAIRER (CURRENT) USE OF ANTITHROMBOTI 02/09/2018 MISAEL THORNTON DO Ot Z79.4 LONG-TERM (CURRENT) USE OF INSULIN 02/09/2018 MISAEL THORNTON DO Ot Z79.82 MINING AND QUARRYING MACHINERY REPAIRER (CURRENT) USE OF ASPIRIN 02/09/2018 NORBERTO CHAO [...] K Ot I25.10 ATHSCL HEART DISEASE OF [place] CORONARY 02/25/2018 NORBERTO CHAO MISAEL Asiya Ot [...] COLLAPSE 02/25/2018 MISAEL THORNTON DO Ot Z79.02 LONG-TERM (CURRENT) USE OF ANTITHROMBOTI 02/25/2018 MISAEL THORNTON DO Ot Z79.4 MINING AND QUARRYING MACHINERY REPAIRER (CURRENT) USE OF INSULIN 02/25/2018 MISAEL THORNTON DO Ot Z79.82 LONG-TERM (CURRENT) USE OF ASPIRIN 02/25/2018 MISAEL THORNTON [...] 2 DIABETES MELLITUS WITHOUT COMPLIC 04/08/2018 CASSY PALCAIO MD Ot E66.01 MORBID (SEVERE) OBESITY DUE [...] ADULT 04/08/2018 CASSY PALACIO MD Ot Z79.02 MINING AND QUARRYING MACHINERY REPAIRER (CURRENT) USE OF ANTITHROMBOTI 04/08/2018 CASSY PALACIO MD Ot Z79 .4 LONG-TERM (CURRENT) USE OF INSULIN 04/08/2018 CASSY PALACIO MD Ot Z79.82 MINING AND QUARRYING MACHINERY REPAIRER (CURRENT) USE OF ASPIRIN 04/08/2018 CASSY PALACIO [...] Ot I25.1 0 ATHSCL HEART DISEASE OF [place] CORONARY 04/15/2018 ARMEN TENORIO MD, Ot I25.2 [...] 04/15/2018 ARMEN TENORIO MD, Ot Z79.0 2 MINING AND QUARRYING MACHINERY REPAIRER (CURRENT) USE OF ANTITHROMBOTI 04/15/2018 ARMEN TENORIO MD, Ot Z79.8 2 LONG-TERM (CURRENT) USE OF ASPIRIN 04/15/2018 ARMEN TENORIO MD Ot Z95.1 PRESENCE OF AORTOCORONARY BYPASS GRAFT 11/07/2018 BARBIE ALFRED MD Ot 414. 01 CORONARY ATHEROSCLEROSIS OF [place] CORON 11/07/2018 BARBIE ALFRED MD Ot 786. [...] Ot I25. 10 ATHSCL HEART DISEASE OF [place] CORONARY 11/07/2018 BARBIE ALFRED MD, Ot I65. 23 OCCLUSION AND STENOSIS OF BILATERAL TRAN 11/07/2018 JUDY CABRALES MD Ot B95.61 METHICILLIN SUSCEP STAPH INFCT CAUSING D 11/07/2018 JUDY CABRALES MD Ot M86.9 OSTEOMYELITIS, UNSPECIFIED 11/07/2018 JUDY CABRALES MD, Ot A49.01 METHICILLIN SUSCEP STAPH INFECTION, UNSP 11/07/2018 JUDY CABRALES MD Ot M86.242 SUBACUTE OSTEOMYELITIS, LEFT HAND 11/07/2018 JUDY CABRALES MD, Ot 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 11/07/2018 JUDY CABRALES MD, Ot M86.242 SUBACUTE OSTEOMYELITIS, LEFT HAND 11/07/2018 JUDY CABRALES MD, Ot Z79.2 LONG-TERM (CURRENT) USE OF ANTIBIOTICS 11/07/2018 JUDY CABRALES MD Ot B95.61 METHICILLIN SUSCEP STAPH INFCT CAUSING D 11/07/2018 JUDY CABRALES MD Ot M86.242 SUBACUTE OSTEOMYELITIS, LEFT HAND 11/07/2018 JUDY CABRALES MD, Ot Z79.2 LONG-TERM (CURRENT) USE OF ANTIBIOTICS 11/07/2018 JUDY CABRALES MD Ot B95.61 METHICILLIN SUSCEP STAPH INFCT CAUSING D 11/07/2018 JUDY CABRALES MD, Ot M86.242 SUBACUTE OSTEOMYELITIS, LEFT HAND 11/07/2018 JUDY CABRALES MD Ot A49.01 METHICILLIN SUSCEP STAPH INFECTION, UNSP 11/07/2018 JUDY CABRALES MD, Ot M86.242 SUBACUTE OSTEOMYELITIS, LEFT HAND 11/07/2018 JUDY CABRALES MD, Ot 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 11/07/2018 JUDY CABRALES MD, Ot B95.61 METHICILLIN SUSCEP STAPH INFCT CAUSING D 11/07/2018 JUDY CABRALES MD, Ot M86.242 SUBACUTE OSTEOMYELITIS, LEFT HAND 11/07/2018 JUDY CABRALES MD, Ot 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 11/07/2018 GIL KAHN [...] (SEVERE) OBESITY DUE TO EXCESS CA 11/07/2018 MIASEL THORNTON DO Ot E78.00 PURE HYPERCHOLESTEROLEMIA, UNSPECIFIED 11/07/2018 MISAEL THORNTON DO, Ot G47.30 SLEEP APNEA, UNSPECIFIED 11/07/2018 MISAEL THORNTON DO Ot I10 ESSENTIAL (PRIMARY) HYPERTENSION 11/07/2018 MISAEL THORNTON DO, Ot I25.10 ATHSCL HEART DISEASE OF [place] CORONARY 11/07/2018 MISAEL THORNTON DO, Ot I25.2 [...] [ECG] [EKG] 11/07/2018 NORBERTO MISAEL Ot Z79.02 LONG-TERM (CURRENT) USE OF ANTITHROMBOTI 11/07/2018 NORBERTO MISAEL Ot Z79.4 MINING AND QUARRYING MACHINERY REPAIRER (CURRENT) USE OF INSULIN 11/07/2018 NORBERTO MISAEL Ot Z79.82 LONG-TERM (CURRENT) USE OF ASPIRIN 11/07/2018 NORBERTO MISAEL Ot Z80.3 FAMILY HISTORY OF MALIGNANT NEOPLASM OF 11/07/2018 NORBERTO CHAOMISAEL Ot Z80.41 FAMILY HISTORY OF MALIGNANT NEOPLASM OF 11/07/2018 NORBERTO MISEAL Ot Z82.49 FAMILY HX OF ISCHEM HEART [...] (SEVERE) OBESITY DUE TO EXCESS CA 11/09/2018 [facility] MISAEL K Ot E78.00 PURE HYPERCHOLESTEROLEMIA, UNSPECIFIED 11/09/2018 [facility] MISEAL Asiya Ot G47.30 SLEEP APNEA, UNSPECIFIED 11/09/2018 [facility] MISAEL K Ot I10 ESSENTIAL (PRIMARY) HYPERTENSION 11/09/2018 [facility] MISAEL K Ot I25.10 ATHSCL HEART DISEASE OF [place] CORONARY 11/09/2018 [facility] MISAEL K Ot I25.2 OLD MYOCARDIAL INFARCTION 11/09/2018 [facility] MISAEL K Ot I44.7 LEFT BUNDLE-BRANCH BLOCK, UNSPECIFIED 11/09/2018 [facility] MISAEL K Ot J44.9 CHRONIC OBSTRUCTIVE PULMONARY DISEASE, U 11/09/2018 NORBERTO DOMISAEL Ot L97.519 NON-PRS CHRONIC ULCER OTH PRT RIGHT FOOT 11/09/2018 [facility] MISAEL K Ot N28.9 DISORDER OF KIDNEY AND URETER, UNSPECIFI 11/09/2018 [facility] MISAEL Asiya Ot R06.02 SHORTNESS OF BREATH 11/09/2018 [facility] MISAEL K Ot R06.03 ACUTE RESPIRATORY DISTRESS 11/09/2018 [facility] MISAEL K Ot R09.02 HYPOXEMIA 11/09/2018 [facility] MISAEL K Ot R94.31 ABNORMAL ELECTROCARDIOGRAM [ECG] [EKG] 11/09/2018 [facility] MISAEL Asiya Ot Z79.02 MINING AND QUARRYING MACHINERY REPAIRER (CURRENT) USE OF ANTITHROMBOTI 11/09/2018 [facility] Z79.4 LONG-TERM (CURRENT) USE OF INSULIN 11/09/2018 [facility] Asiya Ot Z79.82 LONG-TERM (CURRENT) USE OF ASPIRIN 11/09/2018 [facility] Asiya Ot Z80.3 FAMILY HISTORY OF MALIGNANT NEOPLASM OF 11/09/2018 [facility] Z80.41 FAMILY HISTORY OF MALIGNANT NEOPLASM OF 11/09/2018 [facility] Z82.49 FAMILY HX OF ISCHEM HEART DIS AND OTH DI 11/09/2018 NORBERTO DOMISAEL Ot Z87.19 PERSONAL HISTORY OF OTHER DISEASES OF TH 11/09/2018 [facility] Z87.891 PERSONAL HISTORY OF NICOTINE DEPENDENCE 11/09/2018 [place] MISAEL CHAO Ot Z88.8 ALLERGY STATUS TO OTH DRUG/MEDS/BIOL SUB 11/09/2018 [place] MISAEL Braden Ot Z95.1 PRESENCE OF AORTOCORONARY BYPASS GRAFT 11/09/2018 [facility] MISAEL Braden Ot Z95.5 PRESENCE OF CORONARY ANGIOPLASTY IMPLANT 11/09/2018 [facility] MISAEL Braden Ot E11.40 TYPE 2 DIABETES MELLITUS WITH DIABETIC N 11/09/2018 [facility] MISAEL Asiya Ot E11.621 TYPE 2 DIABETES MELLITUS WITH FOOT ULCER 11/09/2018 [facility] MISAEL Asiya Ot E66.01 MORBID (SEVERE) OBESITY DUE TO EXCESS CA 11/09/2018 [facility] MISAEL Asiya Ot E78.00 PURE HYPERCHOLESTEROLEMIA, UNSPECIFIED 11/09/2018 [facility] MISAEL Asiya Ot G47.30 SLEEP APNEA, UNSPECIFIED 11/09/2018 [facility] MISAEL Asiya Ot I10 ESSENTIAL (PRIMARY) HYPERTENSION 11/09/2018 [facility] MISAEL Asiya Ot I25.10 ATHSCL HEART DISEASE OF [place] CORONARY 11/09/2018 [facility] MISAEL Braden Ot I25.2 OLD MYOCARDIAL INFARCTION 11/09/2018 [facility] MISAEL Asiya Ot I44.7 LEFT BUNDLE-BRANCH BLOCK, UNSPECIFIED 11/09/2018 [place] MISAEL Asiya Ot J44.9 CHRONIC OBSTRUCTIVE PULMONARY DISEASE, U 11/09/2018 [place] MISAEL Asiya Ot L97.519 NON-PRS CHRONIC ULCER OTH PRT RIGHT FOOT 11/09/2018 [facility] MISAEL Asiya Ot N28.9 DISORDER OF KIDNEY AND URETER, UNSPECIFI 11/09/2018 [place] MISAEL Asiya Ot R06.02 SHORTNESS OF BREATH 11/09/2018 [facility] MISAEL K Ot R06.03 ACUTE RESPIRATORY DISTRESS 11/09/2018 [facility] MISAEL Asiya Ot R09.02 HYPOXEMIA 11/09/2018 [facility] MISAEL K Ot R94.31 ABNORMAL ELECTROCARDIOGRAM [ECG] [EKG] 11/09/2018 [facility] MISAEL K Ot Z79.02 LONG-TERM (CURRENT) USE OF ANTITHROMBOTI 11/09/2018 [facility] Z79.4 LONG-TERM (CURRENT) USE OF INSULIN 11/09/2018 [place] MISAEL Asiya Ot Z79.82 LONG-TERM (CURRENT) USE OF ASPIRIN 11/09/2018 NORBERT[place] EDILMAA [...] 2 DIABETES MELLITUS WITH DIABETIC N 11/28/2018 [place] MISAEL K Ot E11.621 TYPE 2 DIABETES MELLITUS WITH FOOT ULCER 11/28/2018 [place] MISAEL CHAO Ot E66.01 MORBID (SEVERE) OBESITY DUE TO EXCESS CA 11/28/2018 [place] MISAEL Ot E78.00 PURE HYPERCHOLESTEROLEMIA, UNSPECIFIED 11/28/2018 [place] MISAEL Asiya Ot G47.30 SLEEP APNEA, UNSPECIFIED 11/28/2018 [facility] I10 ESSENTIAL (PRIMARY) HYPERTENSION 11/28/2018 [place] EDILMA CHAOA Asiya Ot I25.10 ATHSCL HEART DISEASE OF [place] CORONARY 11/28/2018 [place] MISAEL CHAO Ot I25.2 [...] [EKG] 11/28/2018 [place] MISAEL Braden Ot Z79.02 LONG-TERM (CURRENT) USE OF ANTITHROMBOTI 11/28/2018 [place] MISAEL Asiya Ot Z79.4 MINING AND QUARRYING MACHINERY REPAIRER (CURRENT) USE OF INSULIN 11/28/2018 [place] MISAEL Asiya Ot Z79.82 LONG-TERM (CURRENT) USE OF ASPIRIN 11/28/2018 [place] MISAEL Asiya Ot Z80.3 FAMILY HISTORY OF MALIGNANT NEOPLASM OF 11/28/2018 MISAEL THORNTON DO Asiya Ot Z80.41 FAMILY HISTORY OF MALIGNANT NEOPLASM OF 11/28/2018 NORBERT[place] MISEAL Asiya Ot Z82.49 FAMILY HX OF ISCHEM [...] MD Ot I25.10 ATHSCL HEART DISEASE OF [place] CORONARY 12/21/2018 RENNY PAINTING MD, Ot I25.2 [...] E11.22 TYPE 2 DIABETES MELLITUS W DIABETIC APPRENTICE MACHINIST OUTSIDE 12/28/2018 RENNY PAINTING MD Ot E11.43 TYPE [...] MD, Ot I25.10 ATHSCL HEART DISEASE OF [place] CORONARY 12/28/2018 RENNY PAINTING MD, Ot I25.2 [...] Ot I25. 10 ATHSCL HEART DISEASE OF [place] CORONARY 05/16/2019 BARBIE ALFRED MD Ot I65. 23 OCCLUSION AND STENOSIS OF BILATERAL TRAN 05/16/2019 JUDY CABRALES MD Ot B95.61 METHICILLIN SUSCEP STAPH INFCT CAUSING D 05/16/2019 JUDY CABRALES MD, Ot M86.9 OSTEOMYELITIS, UNSPECIFIED 05/16/2019 JUDY CABRALES MD, Ot A49.01 METHICILLIN SUSCEP STAPH INFECTION, UNSP 05/16/2019 JUDY CABRALES MD, Ot M86.242 SUBACUTE OSTEOMYELITIS, LEFT HAND 05/16/2019 JUDY CABRALES MD, Ot Z79.2 LONG-TERM (CURRENT) USE OF ANTIBIOTICS 05/16/2019 JUDY CABRALES MD, Ot M86.242 SUBACUTE OSTEOMYELITIS, LEFT HAND 05/16/2019 JUDY CABRALES MD, Ot Z79.2 LONG-TERM (CURRENT) USE OF ANTIBIOTICS 05/16/2019 JUDY CABRALES MD, Ot B95.61 METHICILLIN SUSCEP STAPH INFCT CAUSING D 05/16/2019 JUDY CABRALES MD Ot M86.242 SUBACUTE OSTEOMYELITIS, LEFT HAND 05/16/2019 JUDY CABRALES MD, Ot Z79.2 LONG-TERM (CURRENT) USE OF ANTIBIOTICS 05/16/2019 JUDY CABRALES MD Ot B95.61 METHICILLIN SUSCEP STAPH INFCT CAUSING D 05/16/2019 JUDY CABRALES MD, Ot M86.242 SUBACUTE OSTEOMYELITIS, LEFT HAND 05/16/2019 JUDY CABRALES MD Ot A49.01 METHICILLIN SUSCEP STAPH INFECTION, UNSP 05/16/2019 JUDY CABRALES MD, Ot M86.242 SUBACUTE OSTEOMYELITIS, LEFT HAND 05/16/2019 JUDY CABRALES MD, Ot Z79.2 LONG-TERM (CURRENT) USE OF ANTIBIOTICS 05/16/2019 JUDY CABRALES MD, Ot B95.61 METHICILLIN SUSCEP STAPH INFCT CAUSING D 05/16/2019 JUDY CABRALES MD, Ot M86.242 SUBACUTE OSTEOMYELITIS, LEFT HAND 05/16/2019 JUDY CABRALES MD, Ot 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 10 ATHSCL HEART DISEASE OF [place] CORONARY 05/23/2019 BARBIE ALFRED MD Ot I65. 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 05/23/2019 JUDY CABRALES MD Ot B95.61 METHICILLIN SUSCEP STAPH INFCT CAUSING D 05/23/2019 JUDY CABRALES MD, Ot M86.242 SUBACUTE OSTEOMYELITIS, LEFT HAND 05/23/2019 JUDY CABRALES MD, Ot 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 05/23/2019 JUDY CABRALES MD, Ot B95.61 METHICILLIN SUSCEP STAPH INFCT CAUSING D 05/23/2019 JUDY CABRALES MD, Ot M86.242 SUBACUTE OSTEOMYELITIS, LEFT HAND 05/23/2019 JUDY CABRALES MD, Ot A49.01 METHICILLIN SUSCEP STAPH INFECTION, UNSP 05/23/2019 JUDY CABRALES MD, Ot M86.242 SUBACUTE OSTEOMYELITIS, LEFT HAND 05/23/2019 JUDY CABRALES MD, Ot 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 9 TYPE 2 DIABETES MELLITUS WITHOUT COMPLIC 08/31/2019 ODILON MALONE COMMERCIAL CARPET INSTALLER Ot G57. 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 0 LOCALIZED ENLARGED LYMPH NODES 08/31/2019 ODILON MALONE COMMERCIAL CARPET INSTALLER Ot Z89.5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 08/31/2019 ODILON MALONE COMMERCIAL CARPET INSTALLER Ot Z98.890 OTHER SPECIFIED POSTPROCEDURAL STATES 08/31/2019 ODILON MALONE COMMERCIAL CARPET INSTALLER Ot E11. 9 TYPE 2 DIABETES MELLITUS WITHOUT COMPLIC 08/31/2019 ODILON MALONE COMMERCIAL CARPET INSTALLER Ot G57. 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 0 LOCALIZED ENLARGED LYMPH NODES 08/31/2019 DOILON MALONE COMMERCIAL CARPET INSTALLER Ot Z89.5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 08/31/2019 ODILON MALONE COMMERCIAL CARPET INSTALLER Ot Z98.890 OTHER SPECIFIED POSTPROCEDURAL STATES 10/13/2019 ANTONIO MICHAELS MD Ot E11. 22 TYPE 2 DIABETES MELLITUS W DIABETIC APPRENTICE MACHINIST OUTSIDE 10/13/2019 ANTONIO MICHAELS MD Ot E66. 9 [...] Ot I25. 10 ATHSCL HEART DISEASE OF [place] CORONARY 10/13/2019 ANTONIO MICHAELS MD, Ot I25. [...] 10/13/2019 ANTONIO MICHAELS MD, Ot Z79. 01 LONG-TERM (CURRENT) USE OF ANTICOAGULANT 10/13/2019 ANTONIO MICHAELS MD, Ot Z79. 82 MINING AND QUARRYING MACHINERY REPAIRER (CURRENT) USE OF ASPIRIN 10/13/2019 ANTONIO MICHAELS MD, Ot Z79. 84 MINING AND QUARRYING MACHINERY REPAIRER (CURRENT) USE OF ORAL HYPOGLYC 10/13/2019 ANTONIO MICHAELS MD, Ot Z79.891 LONG-TERM (CURRENT) USE OF OPIATE ANALGE 10/13/2019 ANTONIO MICHAELS MD, Ot Z87.891 PERSONAL HISTORY OF NICOTINE DEPENDENCE 10/13/2019 ANTONIO MICHAELS MD, Ot Z88. 8 ALLERGY STATUS TO OTH DRUG/MEDS/BIOL SUB 10/13/2019 ANTONIO MICHAELS MD Ot Z95. 1 PRESENCE OF AORTOCORONARY BYPASS GRAFT 10/13/2019 ANTONIO MICHAELS MD Ot E11. 22 TYPE 2 DIABETES MELLITUS W DIABETIC APPRENTICE MACHINIST OUTSIDE 10/13/2019 ANTONIO MICHAELS MD, Ot E66. 9 [...] Ot I25. 10 ATHSCL HEART DISEASE OF [place] CORONARY 10/13/2019 ANTONIO MICHAELS MD, Ot I25. [...] 10/13/2019 ANTONIO MICHAELS MD, Ot Z79. 01 MINING AND QUARRYING MACHINERY REPAIRER (CURRENT) USE OF ANTICOAGULANT 10/13/2019 ANTONIO MICHAELS MD Ot Z79. 82 LONG-TERM (CURRENT) USE OF ASPIRIN 10/13/2019 ANTONIO MICHAELS MD Ot Z79. 84 MINING AND QUARRYING MACHINERY REPAIRER (CURRENT) USE OF ORAL HYPOGLYC 10/13/2019 ANTONIO MICHAELS MD, Ot Z79.891 LONG-TERM (CURRENT) USE OF OPIATE ANALGE 10/13/2019 ANTONIO [...] MD, Ot I25.10 ATHSCL HEART DISEASE OF [place] CORONARY 01/04/2020 RENNY PAINTING MD, Ot I25.2 [...] FALLS 01/04/2020 RENNY PAINTING MD Ot Z79.01 LONG-TERM (CURRENT) USE OF ANTICOAGULANT 01/04/2020 RENNY PAINTING MD Ot Z79.4 LONG-TERM (CURRENT) USE OF INSULIN 01/04/2020 RENNY PAINTING MD Ot Z79.82 LONG-TERM (CURRENT) USE OF ASPIRIN 01/04/2020 RENNY PAINTING MD Ot Z80.3 FAMILY HISTORY OF MALIGNANT NEOPLASM OF 01/04/2020 RENNY PAINTING MD Ot Z80.41 FAMILY HISTORY OF MALIGNANT NEOPLASM OF 01/04/2020 RENNY PAINTING MD Ot Z87.891 PERSONAL HISTORY OF NICOTINE DEPENDENCE 01/04/2020 RENNY PAINTING MD Ot Z88.8 ALLERGY STATUS TO OT DRUG/MEDS/BIOL SUB 01/04/2020 RENNY PAINTING MD Ot Z99.89 DEPENDENCE ON OTHER ENABLING MACHINES AN 01/04/2020 RENNY PAINTING MD Ot E11.42 TYPE 2 DIABETES MELLITUS WITH DIABETIC P 01/04/2020 RENNY PAINTING MD, Ot E11.621 TYPE 2 DIABETES MELLITUS WITH FOOT ULCER 01/04/2020 RENNY PAINTING MD, Ot E11.65 TYPE 2 DIABETES MELLITUS WITH HYPERGLYCE 01/04/2020 RENNY PAINTING MD, Ot E66.01 MORBID (SEVERE) OBESITY DUE TO EXCESS CA 01/04/2020 RENNY PAINTING MD Ot E78.00 PURE HYPERCHOLESTEROLEMIA, UNSPECIFIED 01/04/2020 RENNY PAINTING MD, Ot G47.30 SLEEP APNEA, UNSPECIFIED 01/04/2020 RENNY PAINTING MD, Ot G89.29 OTHER CHRONIC PAIN 01/04/2020 RENNY PAINTING MD, Ot I11.0 HYPERTENSIVE HEART DISEASE WITH HEART FA 01/04/2020 RENNY PAINTING MD, Ot I25.10 ATHSCL HEART DISEASE OF [place] CORONARY 01/04/2020 RENNY PAINTING MD Ot I25.2 OLD MYOCARDIAL INFARCTION 01/04/2020 RENNY PAINTING MD Ot I50.9 HEART FAILURE, UNSPECIFIED 01/04/2020 RENNY PAINTING MD, Ot J44.9 CHRONIC OBSTRUCTIVE PULMONARY DISEASE, U 01/04/2020 RENNY PAINTING MD Ot L97.519 NON-PRS CHRONIC ULCER OTH PRT RIGHT FOOT 01/04/2020 RENNY PAINTING MD Ot M19.90 UNSPECIFIED OSTEOARTHRITIS, UNSPECIFIED 01/04/2020 RENNY PAINTING MD, Ot M54.9 DORSALGIA, UNSPECIFIED 01/04/2020 RENNY PAINTING MD Ot R29.6 REPEATED FALLS 01/04/2020 RENNY PAINTING MD, Ot Z79.01 MINING AND QUARRYING MACHINERY REPAIRER (CURRENT) USE OF ANTICOAGULANT 01/04/2020 RENNY PAINTING MD, Ot Z79.4 LONG-TERM (CURRENT) USE OF INSULIN 01/04/2020 RENNY PAINTING MD Ot Z79.82 LONG-TERM (CURRENT) USE OF ASPIRIN 01/04/2020 RENNY PAINTING MD Ot Z80.3 FAMILY HISTORY OF MALIGNANT NEOPLASM OF 01/04/2020 RENNY PAINTING MD, Ot Z80.41 FAMILY HISTORY OF MALIGNANT NEOPLASM OF 01/04/2020 RENNY PAINTING MD Ot Z87.891 PERSONAL HISTORY OF NICOTINE DEPENDENCE 01/04/2020 RENNY PAINTING MD Ot Z88.8 ALLERGY STATUS TO [facility] DRUG/MEDS/BIOL SUB 01/04/2020 RENNY PAINTING MD Ot Z99.89 DEPENDENCE ON OTHER ENABLING MACHINES AN 01/10/2020 BARBIE ALFRED MD Ot E11. 22 TYPE 2 DIABETES MELLITUS W DIABETIC APPRENTICE MACHINIST OUTSIDE 01/10/2020 BARBIE ALFRED MD Ot E11. 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 01/10/2020 BARBIE ALFRED MD Ot E66. 9 OBESITY, UNSPECIFIED 01/10/2020 BARBIE ALFRED MD Ot E78. 5 HYPERLIPIDEMIA, UNSPECIFIED 01/10/2020 BARBIE ALFRED MD Ot I12. 9 HYPERTENSIVE CHRONIC KIDNEY DISEASE W ST 01/10/2020 BARBIE ALFRED MD Ot I25. 10 ATHSCL HEART DISEASE OF [place] CORONARY 01/10/2020 BARBIE ALFRED MD Ot I27. 20 PULMONARY HYPERTENSION, UNSPECIFIED 01/10/2020 BARBIE ALFRED MD Ot I65. 21 OCCLUSION AND STENOSIS OF RIGHT CAROTID 01/10/2020 BARBIE ALFRED MD Ot I70. 0 ATHEROSCLEROSIS OF [place] 01/10/2020 BARBIE ALFRED MD Ot I70. 92 CHRONIC TOTAL OCCLUSION OF ARTERY OF THE 01/10/2020 BARBIE ALFRED MD Ot J44. 9 CHRONIC OBSTRUCTIVE PULMONARY DISEASE, U 01/10/2020 BARBIE ALFRED MD Ot N18. 9 CHRONIC KIDNEY DISEASE, UNSPECIFIED 01/10/2020 BARBIE ALFRED MD Ot S81.802A UNSPECIFIED OPEN WOUND, LEFT LOWER LEG, 01/10/2020 BARBIE ALFRED MD Ot Z79.899 OTHER LONG-TERM (CURRENT) DRUG THERAPY 01/10/2020 BARBIE ALFRED MD Ot Z80. 3 FAMILY HISTORY OF MALIGNANT NEOPLASM OF 01/10/2020 BARBIE ALFRED MD Ot Z80. 41 FAMILY HISTORY OF MALIGNANT NEOPLASM OF 01/10/2020 BARBIE ALFRED MD Ot Z82. 49 FAMILY HX OF ISCHEM HEART DIS AND OTH DI 01/10/2020 BARBIE ALFRED MD, Ot Z85.818 PRSNL HX OF MALIG NEOPLM OF SITE OF LIP, 01/10/2020 BARBIE ALFRED MD, Ot Z87.891 PERSONAL HISTORY OF NICOTINE DEPENDENCE 01/10/2020 BARBIE ALFRED MD, Ot Z89.5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 01/10/2020 BARBIE ALFRED MD, Ot Z91. 19 PATIENT'S NONCOMPLIANCE W OT MEDICAL TR 01/11/2020 ZEPEDA DO, GODFREY Ot E11.42 TYPE 2 DIABETES MELLITUS WITH DIABETIC P 01/11/2020 ZEPEDA DO, GODFREY Ot E11.62 1 TYPE 2 DIABETES MELLITUS WITH FOOT ULCER 01/11/2020 ZEPEDA DO, GODFREY Ot E11.65 TYPE 2 DIABETES MELLITUS WITH HYPERGLYCE 01/11/2020 ZEPEDA DO, GODFREY Ot E66.9 OBESITY, UNSPECIFIED 01/11/2020 ZEPEDA DO, GODFREY Ot E78.5 HYPERLIPIDEMIA, UNSPECIFIED 01/11/2020 ZEPEDA DO, GODFREY Ot G47.33 OBSTRUCTIVE SLEEP APNEA (ADULT) (PEDIATR 01/11/2020 ZEPEDA DO, GODFREY Ot I13.0 HYP HRT CHR [facility] DIS W HRT FAIL AND ST 01/11/2020 ZEPEDA DO, GODFREY Ot I25.10 ATHSCL HEART DISEASE OF [place] CORONARY 01/11/2020 ZEPEDA DO, GODFREY Ot I25.2 OLD MYOCARDIAL INFARCTION 01/11/2020 ZEPEDA DO, GODFREY Ot I27.20 PULMONARY HYPERTENSION, UNSPECIFIED 01/11/2020 ZEPEDA DO, GODFREY Ot I42.9 CARDIOMYOPATHY, UNSPECIFIED 01/11/2020 ZEPEDA DO, GODFREY Ot I50.9 HEART FAILURE, UNSPECIFIED 01/11/2020 ZEPEDA DO, GODFREY Ot I65.23 OCCLUSION AND STENOSIS OF BILATERAL TRAN 01/11/2020 ZEPEDA DO, GODFREY Ot I66.8 OCCLUSION AND STENOSIS OF OTHER CEREBRAL 01/11/2020 ZEPEDA DO, GODFREY Ot I70.0 ATHEROSCLEROSIS OF [place] 01/11/2020 ZEPEDA DO, GODFREY Ot I70.26 2 ATHSCL [place] ARTERIES OF EXTREMITIES W 01/11/2020 ZEPEDA DO, GODFREY Ot L97.52 9 NON-PRESSURE CHRONIC ULCER OT PRT LEFT 01/11/2020 ZEPEDA DO, GODFREY Ot N18.9 CHRONIC KIDNEY DISEASE, UNSPECIFIED 01/11/2020 DUANE CHAO GODFREY Ot N28.9 DISORDER OF KIDNEY AND URETER, UNSPECIFI 01/11/2020 DUANE CHAO GODFREY Ot R29.6 REPEATED FALLS 01/11/2020 ZEPEDA DO GODFREY Ot R53.1 WEAKNESS 01/11/2020 ZEPEDADELFINA CHAO GODFREY Ot R53.81 OTHER MALAISE 01/11/2020 DUANE CHAO GODFREY Ot Z68.42 BODY MASS INDEX (BMI) 45.0-49.9, ADULT 01/11/2020 DUANE CHAO GODFREY Ot Z79.01 MINING AND QUARRYING MACHINERY REPAIRER (CURRENT) USE OF ANTICOAGULANT 01/11/2020 DUANE CHAO GODFREY Ot Z79.4 MINING AND QUARRYING MACHINERY REPAIRER (CURRENT) USE OF INSULIN 01/11/2020 DUANE CHAO GODFREY Ot Z86.71 8 PERSONAL HISTORY OF OTHER VENOUS THROMBO 01/11/2020 DUANE CHAO GODFREY Ot Z87.89 1 PERSONAL HISTORY OF NICOTINE DEPENDENCE 01/11/2020 ALTHEA ZEPEDA DOI Ot Z91.19 PATIENT'S NONCOMPLIANCE W [facility] MEDICAL TR 01/11/2020 DUANE CHAO GODFREY Ot Z95.1 PRESENCE OF AORTOCORONARY BYPASS GRAFT 01/11/2020 DUANE CHAO GODFREY Ot Z95.5 PRESENCE OF CORONARY ANGIOPLASTY IMPLANT 01/12/2020 NABOR FRANCO, ANTOINETTE Ramirez Ot Z47. 81 ENCOUNTER FOR ORTHOPEDIC AFTERCARE [place] 01/12/2020 ANTOINETTE TOMLIN MD Ot Z89.422 ACQUIRED ABSENCE OF OTHER LEFT TOE(S) 01/12/2020 ARMEN MARTINS DO B Ot E11.4 0 TYPE 2 DIABETES MELLITUS WITH DIABETIC N 01/12/2020 ARMEN MARTINS DO B Ot 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 01/12/2020 DORIS MARTINS DOIC B Ot E66.0 1 MORBID (SEVERE) OBESITY DUE TO EXCESS CA 01/12/2020 ARMEN MARTINS DO B Ot E78.0 0 PURE HYPERCHOLESTEROLEMIA, UNSPECIFIED 01/12/2020 DORIS MARTINS DOIC B Ot E78.5 HYPERLIPIDEMIA, UNSPECIFIED 01/12/2020 DORIS MARTINS DOIC B Ot G47.3 3 OBSTRUCTIVE SLEEP APNEA (ADULT) (PEDIATR 01/12/2020 ARMEN MARTINS DO B Ot G89.2 9 OTHER CHRONIC PAIN 01/12/2020 DELMAN DO, ARMEN B Ot I25.1 0 ATHSCL HEART DISEASE OF [place] CORONARY 01/12/2020 LAKSHMI CHAO ARMEN B Ot I25.2 OLD MYOCARDIAL INFARCTION 01/12/2020 LAKSHMI CHAO ARMEN B Ot I27.2 0 PULMONARY HYPERTENSION, UNSPECIFIED 01/12/2020 LAKSHMI CHAO ARMEN B Ot I42.9 CARDIOMYOPATHY, UNSPECIFIED 01/12/2020 LAKSHMI CHAO ARMEN B Ot I65.2 9 OCCLUSION AND STENOSIS OF UNSPECIFIED CA 01/12/2020 LAKSHMI CHAO ARMEN B Ot J44.9 CHRONIC OBSTRUCTIVE PULMONARY DISEASE, U 01/12/2020 LAKSHMI CHAO ARMEN B Ot L03.1 16 CELLULITIS OF LEFT LOWER LIMB 01/12/2020 LAKSHMI CHAO ARMEN B Ot M54.2 CERVICALGIA 01/12/2020 LAKSHMI CHAO ARMEN B Ot N18.9 CHRONIC KIDNEY DISEASE, UNSPECIFIED 01/12/2020 LAKSHMI CHAO ARMEN B Ot Z79.4 LONG-TERM (CURRENT) USE OF INSULIN 01/12/2020 LAKSHMI CHAO ARMEN B Ot 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 01/12/2020 LAKSHMI CHAO ARMEN B Ot Z79.8 99 OTHER MINING AND QUARRYING MACHINERY REPAIRER (CURRENT) DRUG THERAPY 01/12/2020 LAKSHMI CHAO ARMEN B Ot Z86.7 18 PERSONAL HISTORY OF OTHER VENOUS THROMBO 01/12/2020 LAKSHMI CHAO ARMEN B Ot Z87.8 91 PERSONAL HISTORY OF NICOTINE DEPENDENCE 01/12/2020 LAKSHMI HCAODORISIC B Ot Z89.5 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 01/12/2020 LAKSHMI CHAODORISIC B Ot Z91.1 9 PATIENT'S NONCOMPLIANCE W [facility] MEDICAL TR 01/12/2020 LAKSHMI CHAODORISIC B Ot Z95.1 PRESENCE OF AORTOCORONARY BYPASS GRAFT 01/12/2020 ETELVINAFANY CHAOARMEN B Ot Z95.5 PRESENCE OF CORONARY ANGIOPLASTY IMPLANT 01/13/2020 ANTOINETTE TOMLIN MD Ot Z47. 81 ENCOUNTER FOR ORTHOPEDIC AFTERCARE [facility] 01/13/2020 ANTOINETTE TOMLIN MD Ot Z89.422 ACQUIRED ABSENCE OF OTHER LEFT TOE(S) 01/14/2020 ANTOINETTE TOMLIN MD Ot Z47. 81 [facility] 01/14/2020 ANTOINETTE TOMLIN MD Ot Z89.422 ACQUIRED ABSENCE OF OTHER LEFT TOE(S) 01/15/2020 BARBIE ALFRED MD Ot E11. 22 TYPE 2 DIABETES MELLITUS W DIABETIC APPRENTICE MACHINIST OUTSIDE 01/15/2020 BARBIE ALFRED MD Ot E11. 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 01/15/2020 BARBIE ALFRED MD Ot E66. 9 OBESITY, UNSPECIFIED 01/15/2020 BARBEI ALFRED MD Ot E78. 5 HYPERLIPIDEMIA, UNSPECIFIED 01/15/2020 BARBIE ALFRED MD Ot I12. 9 HYPERTENSIVE CHRONIC KIDNEY DISEASE W ST 01/15/2020 BARBIE ALFRED MD Ot I25. 10 ATHSCL HEART DISEASE OF [place] CORONARY 01/15/2020 BARBIE ALFRED MD Ot I27. 20 PULMONARY HYPERTENSION, UNSPECIFIED 01/15/2020 BARBIE ALFRED MD Ot I65. 21 OCCLUSION AND STENOSIS OF RIGHT CAROTID 01/15/2020 BARBIE ALFRED MD Ot I70. 0 ATHEROSCLEROSIS OF [place] 01/15/2020 BARBIE ALFRED MD Ot I70. 92 CHRONIC TOTAL OCCLUSION OF ARTERY OF THE 01/15/2020 BARBIE ALFRED MD, Ot J44. 9 CHRONIC OBSTRUCTIVE PULMONARY DISEASE, U 01/15/2020 BARBIE ALFRED MD Ot N18. 9 CHRONIC KIDNEY DISEASE, UNSPECIFIED 01/15/2020 BARBIE ALFRED MD Ot S81.802A UNSPECIFIED OPEN WOUND, LEFT LOWER LEG, 01/15/2020 BARBIE ALFRED MD Ot Z79.899 OTHER LONG-TERM (CURRENT) DRUG THERAPY 01/15/2020 BARBIE ALFRED MD Ot Z80. 3 FAMILY HISTORY OF MALIGNANT NEOPLASM OF 01/15/2020 BARBIE ALFRED MD Ot Z80. 41 FAMILY HISTORY OF MALIGNANT NEOPLASM OF 01/15/2020 BARBIE ALFRED MD, Ot Z82. 49 FAMILY HX OF ISCHEM HEART DIS AND OTH DI 01/15/2020 BARBIE ALFRED MD, Ot Z85.818 PRSNL HX OF MALIG NEOPLM OF SITE OF LIP, 01/15/2020 BARBIE ALFRED MD Ot Z87.891 PERSONAL HISTORY OF NICOTINE DEPENDENCE 01/15/2020 BARBIE ALFRED MD Ot Z89.5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 01/15/2020 AUBRIE FRANCO, BARBIE Murray Ot Z91. 19 PATIENT'S NONCOMPLIANCE W OTH MEDICAL TR 01/15/2020 LAKSHMI DO, ARMEN B Ot E11.4 0 TYPE 2 DIABETES MELLITUS WITH DIABETIC N 01/15/2020 DELFANY DO, ARMEN B Ot 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 01/15/2020 LAKSHMI DO, ARMEN B Ot E66.0 1 MORBID (SEVERE) OBESITY DUE TO EXCESS CA 01/15/2020 DELFANY DO, ARMEN B Ot E78.0 0 PURE HYPERCHOLESTEROLEMIA, UNSPECIFIED 01/15/2020 DELFANY DO, ARMEN B Ot E78.5 HYPERLIPIDEMIA, UNSPECIFIED 01/15/2020 LAKSHMI DO, ARMEN B Ot G47.3 3 OBSTRUCTIVE SLEEP APNEA (ADULT) (PEDIATR 01/15/2020 DELFANY DO, ARMEN B Ot G89.2 9 OTHER CHRONIC PAIN 01/15/2020 LAKSHMI DO, ARMEN B Ot I25.1 0 ATHSCL HEART DISEASE OF [place] CORONARY 01/15/2020 LAKSHMI DO, ARMEN B Ot I25.2 OLD MYOCARDIAL INFARCTION 01/15/2020 LAKSHMI DO, ARMEN B Ot I27.2 0 PULMONARY HYPERTENSION, UNSPECIFIED 01/15/2020 LAKSHMI DO, ARMEN B Ot I42.9 CARDIOMYOPATHY, UNSPECIFIED 01/15/2020 LAKSHMI DO, ARMEN B Ot I65.2 9 OCCLUSION AND STENOSIS OF UNSPECIFIED CA 01/15/2020 LAKSHMI DO, ARMEN B Ot J44.9 CHRONIC OBSTRUCTIVE PULMONARY DISEASE, U 01/15/2020 LAKSHMI DO, ARMEN B Ot L03.1 16 CELLULITIS OF LEFT LOWER LIMB 01/15/2020 LAKSHMI DO, ARMEN B Ot M54.2 CERVICALGIA 01/15/2020 LAKSHMI DO, ARMEN B Ot N18.9 CHRONIC KIDNEY DISEASE, UNSPECIFIED 01/15/2020 LAKSHMI CHAO, ARMEN B Ot Z79.4 LONG-TERM (CURRENT) USE OF INSULIN 01/15/2020 ETELVINAAMHERST , ARMEN B Ot Z79.8 2 LONG-TERM (CURRENT) USE OF ASPIRIN 01/15/2020 LAKSHMI CHAO, ARMEN B Ot Z79.8 99 OTHER MINING AND QUARRYING MACHINERY REPAIRER (CURRENT) DRUG THERAPY 01/15/2020 ETELVINAFANY CHAO, ARMEN B Ot Z86.7 18 PERSONAL HISTORY OF OTHER VENOUS THROMBO 01/15/2020 ARMEN MARTINS DO Ot Z87.8 91 PERSONAL HISTORY OF NICOTINE DEPENDENCE 01/15/2020 ARMEN MARTINS DO, Ot Z89.5 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 01/15/2020 ARMEN MARTINS DO, Ot Z91.1 9 PATIENT'S NONCOMPLIANCE W OTH MEDICAL TR 01/15/2020 ARMEN MARTINS DO, Ot Z95.1 PRESENCE OF AORTOCORONARY BYPASS GRAFT 01/15/2020 ARMEN MARTINS DO, Ot Z95.5 PRESENCE OF CORONARY ANGIOPLASTY IMPLANT 01/15/2020 ANTOINETTE TOMLIN MD, Ot Z47. 81 ENCOUNTER FOR ORTHOPEDIC AFTERCARE [place] 01/15/2020 ANTOINETTE TOMLIN MD, Ot Z89.422 ACQUIRED ABSENCE OF OTHER LEFT TOE(S) 01/15/2020 ANTOINETTE TOMLIN MD, Ot E11. 9 TYPE 2 DIABETES MELLITUS WITHOUT COMPLIC 01/15/2020 ANTOINETTE TOMLIN MD, Ot E66. 9 OBESITY, UNSPECIFIED 01/15/2020 ANTOINETTE TOMLIN MD, Ot E78. 5 HYPERLIPIDEMIA, UNSPECIFIED 01/15/2020 ANTOINETTE TOMLIN MD, Ot G47. 33 OBSTRUCTIVE SLEEP APNEA (ADULT) (PEDIATR 01/15/2020 ANTOINETTE TOMLIN MD, Ot I13. 0 HYP HRT CHR [place] DIS W HRT FAIL AND ST 01/15/2020 ANTOINETTE TOMLIN MD, Ot I25. 10 ATHSCL HEART DISEASE OF [place] CORONARY 01/15/2020 ANTOINETTE TOMLIN MD, Ot I27. 20 PULMONARY HYPERTENSION, UNSPECIFIED 01/15/2020 ANTOINETTE TOMLIN MD, Ot I50. 32 CHRONIC DIASTOLIC (CONGESTIVE) HEART [place] 01/15/2020 ANTOINETTE TOMLIN MD, Ot I65. 23 OCCLUSION AND STENOSIS OF BILATERAL TRAN 01/15/2020 ANTOINETTE TOMLIN MD, Ot I66. 8 OCCLUSION AND STENOSIS OF OTHER CEREBRAL 01/15/2020 ANTOINETTE TOMLIN MD, Ot I70. 0 ATHEROSCLEROSIS OF [place] 01/15/2020 ANTOINETTE TOMLIN MD, Ot I70.202 UNSP ATHSCL [place] ARTERIES OF EXTREMITI 01/15/2020 ANTOINETTE TOMLIN MD, Ot J44. 9 CHRONIC OBSTRUCTIVE PULMONARY DISEASE, U 01/15/2020 ANTOINETTE TOMLIN MD, Ot J96. 11 CHRONIC RESPIRATORY FAILURE WITH HYPOXIA 01/15/2020 ANTOINETTE TOMLIN MD, Ot N18. 9 CHRONIC KIDNEY DISEASE, UNSPECIFIED 01/15/2020 ANTOINETTE TOMLIN MD, Ot N28. 9 DISORDER OF KIDNEY AND URETER, UNSPECIFI 01/15/2020 ANTOINETTE TOMLIN MD, Ot R42 DIZZINESS AND GIDDINESS 01/15/2020 ANTOINETTE TOMLIN MD, Ot Z47. 81 ENCOUNTER FOR ORTHOPEDIC AFTERCARE [place] 01/15/2020 ANTOINETTE TOMLIN MD, Ot Z68. 43 BODY MASS INDEX (BMI) 50.0-59.9, ADULT 01/15/2020 ANTOINETTE TOMLIN MD, Ot Z89.422 ACQUIRED ABSENCE OF OTHER LEFT TOE(S) 01/15/2020 ANTOINETTE TOMLIN MD, Ot Z89.5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 01/15/2020 ANTOINETTE TOMLIN MD, Ot Z91. 19 PATIENT'S NONCOMPLIANCE W [facility] MEDICAL TR 01/15/2020 ANTOINETTE TOMLIN MD, Ot Z95. 5 PRESENCE OF CORONARY ANGIOPLASTY IMPLANT 01/17/2020 BARBIE ALFRED MD Ot E11. 22 TYPE 2 DIABETES MELLITUS W DIABETIC APPRENTICE MACHINIST OUTSIDE 01/17/2020 BARBIE ALFRED MD Ot E11. 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 01/17/2020 BARBIE ALFRED MD, Ot E66. 9 OBESITY, UNSPECIFIED 01/17/2020 BARBIE ALFRED MD, Ot E78. 5 HYPERLIPIDEMIA, UNSPECIFIED 01/17/2020 BARBIE ALFRED MD, Ot I12. 9 HYPERTENSIVE CHRONIC KIDNEY DISEASE W ST 01/17/2020 BARBIE ALFRED MD, Ot I25. 10 ATHSCL HEART DISEASE OF [place] CORONARY 01/17/2020 BARBIE ALFRED MD, Ot I27. 20 PULMONARY HYPERTENSION, UNSPECIFIED 01/17/2020 BARBIE ALFRED MD Ot I65. 21 OCCLUSION AND STENOSIS OF RIGHT CAROTID 01/17/2020 BARBIE ALFRED MD Ot I70. 0 ATHEROSCLEROSIS OF [place] 01/17/2020 BARBIE ALFRED MD, Ot I70. 92 CHRONIC TOTAL OCCLUSION OF ARTERY OF THE 01/17/2020 BARBIE ALFRED MD, Ot J44. 9 CHRONIC OBSTRUCTIVE PULMONARY DISEASE, U 01/17/2020 BARBIE ALFRED MD, Ot N18. 9 CHRONIC KIDNEY DISEASE, UNSPECIFIED 01/17/2020 BARBIE ALFRED MD Ot S81.802A UNSPECIFIED OPEN WOUND, LEFT LOWER LEG, 01/17/2020 BARBIE ALFRED MD Ot Z79.899 OTHER LONG-TERM (CURRENT) DRUG THERAPY 01/17/2020 BARBIE ALFRED MD Ot Z80. 3 FAMILY HISTORY OF MALIGNANT NEOPLASM OF 01/17/2020 BARBIE ALFRED MD Ot Z80. 41 FAMILY HISTORY OF MALIGNANT NEOPLASM OF 01/17/2020 BARBIE ALFRED MD Ot Z82. 49 FAMILY HX OF ISCHEM HEART DIS AND OTH DI 01/17/2020 BARBIE ALFRED MD Ot Z85.818 PRSNL HX OF MALIG NEOPLM OF SITE OF LIP, 01/17/2020 BARBIE ALFRED MD Ot Z87.891 PERSONAL HISTORY OF NICOTINE DEPENDENCE 01/17/2020 BARBIE ALFRED MD Ot Z89.5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 01/17/2020 BARBIE ALFRED MD Ot Z91. 19 PATIENT'S NONCOMPLIANCE W OTH MEDICAL TR 01/22/2020 BARBIE ALFRED MD Ot E11. 22 TYPE 2 DIABETES MELLITUS W DIABETIC APPRENTICE MACHINIST OUTSIDE 01/22/2020 BARBIE ALFRED MD Ot E11. 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 01/22/2020 BARBIE ALFRED MD Ot E66. 9 OBESITY, UNSPECIFIED 01/22/2020 BARBIE ALFRED MD Ot E78. 5 HYPERLIPIDEMIA, UNSPECIFIED 01/22/2020 BARBIE ALFRED MD Ot I12. 9 HYPERTENSIVE CHRONIC KIDNEY DISEASE W ST 01/22/2020 BARBIE ALFRED MD Ot I25. 10 ATHSCL HEART DISEASE OF [place] CORONARY 01/22/2020 BARBIE ALFRED MD Ot I27. 20 PULMONARY HYPERTENSION, UNSPECIFIED 01/22/2020 BARBIE ALFRED MD Ot I65. 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 0 ATHEROSCLEROSIS OF [place] 01/22/2020 BARBIE ALFRED MD Ot I70. 92 CHRONIC TOTAL OCCLUSION OF ARTERY OF THE 01/22/2020 BARBIE ALFRED MD Ot J44. 9 CHRONIC OBSTRUCTIVE PULMONARY DISEASE, U 01/22/2020 BARBIE ALFRED MD Ot N18. 9 CHRONIC KIDNEY DISEASE, UNSPECIFIED 01/22/2020 BARBIE ALFRED MD, Ot S81.802A UNSPECIFIED OPEN WOUND, LEFT LOWER LEG, 01/22/2020 BARBIE ALFRED MD, Ot Z79.899 OTHER MINING AND QUARRYING MACHINERY REPAIRER (CURRENT) DRUG THERAPY 01/22/2020 BARBIE ALFRED MD, Ot Z80. 3 FAMILY HISTORY OF MALIGNANT NEOPLASM OF 01/22/2020 BARBIE ALFRED MD, Ot Z80. 41 FAMILY HISTORY OF MALIGNANT NEOPLASM OF 01/22/2020 BARBIE ALFRED MD, Ot Z82. 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 19 PATIENT'S NONCOMPLIANCE W OT MEDICAL TR 01/22/2020 RENNY PAINTING MD, Ot E11.42 TYPE 2 DIABETES MELLITUS WITH DIABETIC P 01/22/2020 RENNY PAINTING MD, Ot E11.621 TYPE 2 DIABETES MELLITUS WITH FOOT ULCER 01/22/2020 RENNY PAINTING MD Ot E11.65 TYPE 2 DIABETES MELLITUS WITH HYPERGLYCE 01/22/2020 RENNY PAINTING MD Ot E66.01 MORBID (SEVERE) OBESITY DUE TO EXCESS CA 01/22/2020 RENNY PAINTING MD, Ot E78.00 PURE HYPERCHOLESTEROLEMIA, UNSPECIFIED 01/22/2020 RENNY PAINTING MD, Ot G47.30 SLEEP APNEA, UNSPECIFIED 01/22/2020 RENNY PAINTING MD, Ot G89.29 OTHER CHRONIC PAIN 01/22/2020 RENNY PAINTING MD, Ot I11.0 HYPERTENSIVE HEART DISEASE WITH HEART FA 01/22/2020 RENNY PAINTING MD, Ot I25.10 ATHSCL HEART DISEASE OF [place] CORONARY 01/22/2020 RENNY PAINTING MD, Ot I25.2 OLD MYOCARDIAL INFARCTION 01/22/2020 RENNY PAINTING MD, Ot I50.9 HEART FAILURE, UNSPECIFIED 01/22/2020 RENNY PAINTING MD, Ot J44.9 CHRONIC OBSTRUCTIVE PULMONARY DISEASE, U 01/22/2020 RENNY PAINTING MD, Ot L97.519 NON-PRS CHRONIC ULCER OTH PRT RIGHT FOOT 01/22/2020 RENNY PAINTING MD, Ot M19.90 UNSPECIFIED OSTEOARTHRITIS, UNSPECIFIED 01/22/2020 RENNY PAINTING MD, Ot M54.9 DORSALGIA, UNSPECIFIED 01/22/2020 RENNY PAINTING MD, Ot R29.6 REPEATED FALLS 01/22/2020 RENNY PAINTING MD, Ot Z79.01 MINING AND QUARRYING MACHINERY REPAIRER (CURRENT) USE OF ANTICOAGULANT 01/22/2020 RENNY PAINTING MD, Ot Z79.4 MINING AND QUARRYING MACHINERY REPAIRER (CURRENT) USE OF INSULIN 01/22/2020 RENNY PAINTING MD, Ot Z79.82 LONG-TERM (CURRENT) USE OF ASPIRIN 01/22/2020 RENNY PAINTING MD, Ot Z80.3 FAMILY HISTORY OF MALIGNANT NEOPLASM OF 01/22/2020 RENNY PAINTING MD Ot Z80.41 FAMILY HISTORY OF MALIGNANT NEOPLASM OF 01/22/2020 RENNY PAINTING MD Ot Z87.891 PERSONAL HISTORY OF NICOTINE DEPENDENCE 01/22/2020 RENNY PAINTING MD, Ot Z88.8 ALLERGY STATUS TO [facility] DRUG/MEDS/BIOL SUB 01/22/2020 RENNY PAINTING MD Ot Z99.89 DEPENDENCE ON OTHER ENABLING MACHINES AN 01/25/2020 BARBIE ALFRED MD Ot E11. 22 TYPE 2 DIABETES MELLITUS W DIABETIC APPRENTICE MACHINIST OUTSIDE 01/25/2020 BARBIE ALFRED MD Ot E11. 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 01/25/2020 BARBIE ALFRED MD Ot E66. 9 OBESITY, UNSPECIFIED 01/25/2020 BARBIE ALFRED MD Ot E78. 5 HYPERLIPIDEMIA, UNSPECIFIED 01/25/2020 BARBIE ALFRED MD Ot I12. 9 HYPERTENSIVE CHRONIC KIDNEY DISEASE W ST 01/25/2020 BARBIE ALFRED MD Ot I25. 10 ATHSCL HEART DISEASE OF [place] CORONARY 01/25/2020 BARBIE ALFRED MD Ot I27. 20 PULMONARY HYPERTENSION, UNSPECIFIED 01/25/2020 BARBIE ALFRED MD Ot I65. 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 0 ATHEROSCLEROSIS OF AORTA 01/25/2020 BARBIE ALFRED MD, Ot I70. 92 CHRONIC TOTAL OCCLUSION OF ARTERY OF THE 01/25/2020 BARBIE ALFRED MD, Ot J44. 9 CHRONIC OBSTRUCTIVE PULMONARY DISEASE, U 01/25/2020 BARBIE ALFRED MD, Ot N18. 9 CHRONIC KIDNEY DISEASE, UNSPECIFIED 01/25/2020 BARBIE ALFRED MD Ot S81.802A UNSPECIFIED OPEN WOUND, LEFT LOWER LEG, 01/25/2020 BARBIE ALFRED MD, Ot Z79.899 OTHER LONG-TERM (CURRENT) DRUG THERAPY 01/25/2020 BARBIE ALFRED MD, Ot Z80. 3 FAMILY HISTORY OF MALIGNANT NEOPLASM OF 01/25/2020 BARBIE ALFRED MD, Ot Z80. 41 FAMILY HISTORY OF MALIGNANT NEOPLASM OF 01/25/2020 BARBIE ALFRED MD, Ot Z82. 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 01/31/2020 ARMEN MARTINS DO Ot E66.0 1 MORBID (SEVERE) OBESITY DUE TO EXCESS CA 01/31/2020 ARMEN MARTINS DO Ot E78.0 0 PURE HYPERCHOLESTEROLEMIA, UNSPECIFIED 01/31/2020 ARMEN MARTINS DO Ot E78.5 HYPERLIPIDEMIA, UNSPECIFIED 01/31/2020 ARMEN MARTINS DO Ot G47.3 3 OBSTRUCTIVE SLEEP APNEA (ADULT) (PEDIATR 01/31/2020 ARMEN MARTINS DO Ot G89.2 9 OTHER CHRONIC PAIN 01/31/2020 LAKSHMI CHAO, ARMEN B Ot I25.1 0 ATHSCL HEART DISEASE OF [place] CORONARY 01/31/2020 ETELVINAFANY DO ARMEN B Ot I25.2 OLD MYOCARDIAL INFARCTION 01/31/2020 ETELVINAFANY CHAODORISIC B Ot I27.2 0 PULMONARY HYPERTENSION, UNSPECIFIED 01/31/2020 ETELVINAFANY DO ARMEN B Ot I42.9 CARDIOMYOPATHY, UNSPECIFIED 01/31/2020 ETELVINAFANY CHAO ARMEN B Ot I65.2 9 OCCLUSION AND STENOSIS OF UNSPECIFIED CA 01/31/2020 ETELVINAFANY CHAO ARMEN B Ot J44.9 CHRONIC OBSTRUCTIVE PULMONARY DISEASE, U 01/31/2020 ETELVINAFANY CHAO ARMEN B Ot L03.1 16 CELLULITIS OF LEFT LOWER LIMB 01/31/2020 ETELVINAFANY DORIS CHAOIC B Ot M54.2 CERVICALGIA 01/31/2020 ETELVINAFANY CHAO ARMEN B Ot N18.9 CHRONIC KIDNEY DISEASE, UNSPECIFIED 01/31/2020 ETELVINAFANY CHAO ARMEN B Ot Z79.4 LONG-TERM (CURRENT) USE OF INSULIN 01/31/2020 ETELVINAFANY DORIS CHAOIC B Ot 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 01/31/2020 ETELVINAFANY DORIS CHAOIC B Ot Z79.8 99 OTHER MINING AND QUARRYING MACHINERY REPAIRER (CURRENT) DRUG THERAPY 01/31/2020 ETELVINAFANY DORIS CHAOIC B Ot Z86.7 18 PERSONAL HISTORY OF OTHER VENOUS THROMBO 01/31/2020 ETELVINAFANY DORIS CHAOIC B Ot Z87.8 91 PERSONAL HISTORY OF NICOTINE DEPENDENCE 01/31/2020 ETELVINAFANY DORIS CHAOIC B Ot Z89.5 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 01/31/2020 DORIS MARTINS DOIC B Ot Z91.1 9 PATIENT'S NONCOMPLIANCE W [facility] MEDICAL TR 01/31/2020 ETELVINAFANY DORIS CHAOIC B Ot Z95.1 PRESENCE OF AORTOCORONARY BYPASS GRAFT 01/31/2020 DORIS MARTINS DOIC B Ot Z95.5 PRESENCE OF CORONARY ANGIOPLASTY IMPLANT 02/13/2020 DORIS MARTINS DOIC B Ot E11.4 0 TYPE 2 DIABETES MELLITUS WITH DIABETIC N 02/13/2020 DORIS MARTINS DOIC B Ot 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 02/13/2020 DORIS MARITNS DOIC B Ot E66.0 1 MORBID (SEVERE) OBESITY DUE TO EXCESS CA 02/13/2020 LAKSHMI CHAO, ARMEN B Ot E78.0 0 PURE HYPERCHOLESTEROLEMIA, UNSPECIFIED 02/13/2020 LAKSHMI CHAO, ARMEN B Ot E78.5 HYPERLIPIDEMIA, UNSPECIFIED 02/13/2020 LAKSHMI CHAO, ARMEN B Ot G47.3 3 OBSTRUCTIVE SLEEP APNEA (ADULT) (PEDIATR 02/13/2020 LAKSHMI CHAO, ARMEN B Ot G89.2 9 OTHER CHRONIC PAIN 02/13/2020 LAKSHMI CHAO, ARMEN B Ot I25.1 0 ATHSCL HEART DISEASE OF [place] CORONARY 02/13/2020 LAKSHMI CHAO, ARMEN B Ot I25.2 OLD MYOCARDIAL INFARCTION 02/13/2020 LAKSHMI CHAO, ARMEN B Ot I27.2 0 PULMONARY HYPERTENSION, UNSPECIFIED 02/13/2020 LAKSHMI CHAO ARMEN B Ot I42.9 CARDIOMYOPATHY, UNSPECIFIED 02/13/2020 LAKSHMI CHAO, ARMEN B Ot I65.2 9 OCCLUSION AND STENOSIS OF UNSPECIFIED CA 02/13/2020 LAKSHMI CHAO ARMEN B Ot J44.9 CHRONIC OBSTRUCTIVE PULMONARY DISEASE, U 02/13/2020 LAKSHMI CHAO, ARMEN B Ot L03.1 16 CELLULITIS OF LEFT LOWER LIMB 02/13/2020 LAKSHMI CHAO ARMEN B Ot M54.2 CERVICALGIA 02/13/2020 LAKSHMI CHAO, ARMEN B Ot N18.9 CHRONIC KIDNEY DISEASE, UNSPECIFIED 02/13/2020 LAKSHMI CHAO, ARMEN B Ot Z79.4 LONG-TERM (CURRENT) USE OF INSULIN 02/13/2020 LAKSHMI CHAO ARMEN B Ot 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 02/13/2020 ETELVINAFANY CHAO ARMEN B Ot Z79.8 99 OTHER LONG-TERM (CURRENT) DRUG THERAPY 02/13/2020 LAKSHMI CHAO ARMEN B Ot Z86.7 18 PERSONAL HISTORY OF OTHER VENOUS THROMBO 02/13/2020 ETELVINAFANY CHAO ARMEN B Ot Z87.8 91 PERSONAL HISTORY OF NICOTINE DEPENDENCE 02/13/2020 ETELVINAFANY CHAO ARMEN B Ot Z89.5 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, LEFT KNEE 02/14/2020 ODILON MALONE Ot Z89.5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 Procedures Code Description Performed By Per formed On 86.04 04/29/2012 [id number] DE TACHMENT AT RIGHT LOWER LEG, HIGH, [...] - 11/10/16 09:42 Bacterial blood culture NG NR Influenza virus A and B antigen detectio n - 11/10/16 09:55 FLU RESULT NEGATIVE FOR INFLUENZA A AND B ANTIGENS BY IA NRG Bacterial blood culture - 11/10/16 10:13 Bacterial blood culture NG NR Complete urinalysis with reflex to cultu re [...] Amorphous sediment detection in urine sediment by lig t microscopy MOD FRANCIS URATES NRG Bacterial [...] - 12/16/18 16:09 Bacterial blood culture NG NR Complete urinalysis with reflex to cultu re [...] ABO+Rh group BP NRG Transfusion band number [id number] NRG Blood group antibody screen NEGATIVE [facility] Capillary blood glucose measurement by g lucometer [...] blood basophil count (count/volume) 0.0 10*3/uL 0.0-0.1 [id number] - 12/26/18 06:54 [id number] SPECIMEN AVAILABLE [facility] Whole blood basic metabolic [...] A AND B ANTIGENS BY IA NRG Complete blood count (CBC) with automate [...] culture - 10/12/19 16:40 Bacterial urine culture [id number] NRG COLONY COUNT >100,000/ML NRG FTX;REPORTABLE SUSCEPTIBILITY REPORTED 10/14 11:45 NRG FREE TEXT ENTRY 2 PRELIM RAPID ID TEST AT [facility] 10/12 9:55 NRG FREE TEXT ENTRY 3 [...] culture - 01/02/20 17:47 Bacterial urine culture [id number] NRG COLONY COUNT <10,000 NRG SUSCEPTIBILITY SEE [...] measurement by g lucometer (mass/volume) - 01/11/20 14:35 Capillary blood glucose measurement by glucometer (mas s/volume) 228 mg/dL 70-110 Vancomycin trough - 01/11/20 15:05 Vancomycin trough 9.2 ug/mL 10.0-20.0 Capillary blood glucose measurement by g lucometer (mass/volume) - 01/11/20 20:58 Capillary blood glucose measurement by glucometer (mas s/volume) 156 mg/dL 70-110 Complete blood count (CBC) with automate d white blood cell (WBC) differential - 01/12/20 05:43 Blood leukocytes automated count (number/volume) 6.5 10*3/uL 4.3-11.0 Blood erythrocytes automated count (number/volume) 3.36 10*6/uL 4.35-5.85 Venous blood hemoglobin measurement (mass/volume) 9.3 g/dL 13.3-17.7 Blood hematocrit (volume fraction) 29 % 40-54 Automated erythrocyte mean corpuscular volume 85 [ foz_us] 80-99 Automated erythrocyte mean corpuscular h emoglobin (mass per erythrocyte) 28 pg 25-34 Automated erythrocyte mean corpuscular h emoglobin concentration measurement (mass/volume) 33 g/dL 32-36 Automated erythrocyte distribution width ratio 15. 0 % 10.0- 14.5 Automated blood platelet count (count/volume) 175 10*3/uL 130-400 Automated blood platelet mean volume measurement 10.4 [foz_us] 7.4-10.4 Automated blood neutrophils/100 leukocytes 74 % 42-75 Automated blood lymphocytes/100 leukocytes 13 % 12-44 Blood monocytes/100 leukocytes 10 % 0-12 Automated blood eosinophils/100 leukocytes 2 % 0-10 Automated blood basophils/100 leukocytes 0 % 0-10 Blood neutrophils automated count (number/volume) 4.9 10*3 1.8-7.8 Blood lymphocytes automated count (number/volume) 0.9 10*3 1.0-4.0 Blood monocytes automated count (number/volume) 0. 7 10*3 0.0-1.0 Automated eosinophil count 0.1 10*3/uL 0 .0-0.3 Automated blood basophil count (count/volume) 0.0 10*3/uL 0.0-0.1 Whole blood basic metabolic panel - 12/31 09/21 05:43 Serum or plasma sodium measurement (moles/volume) 136 mmol/L 135-145 Serum or plasma potassium measurement (moles/volume) 4.0 mmol/L 3.6-5.0 Serum or plasma chloride measurement (moles/volume) 104 mmol/L 98-107 Carbon dioxide 21 mmol/L 21-32 Serum or plasma anion gap determination (moles/volume) 11 mmol/L 5-14 Serum or plasma urea nitrogen measurement (mass/volume ) 36 mg/dL 7-18 Serum or plasma creatinine measurement (mass/volume) 1.75 mg/dL 0.60-1.30 Serum or plasma urea nitrogen/creatinine mass ratio 21 NRG Serum or plasma creatinine measurement w ith calculation of estimated glomerular filtration rate 39 NRG Serum or plasma glucose measurement (mass/volume) 125 mg/dL 70-105 Serum or plasma calcium measurement (mass/volume) 8.4 mg/dL 8.5-10.1 PT panel in platelet poor plasma by coag ulation assay - 01/12/20 05:43 Prothrombin time (PT) in platelet poor plasma by coagu lation assay 19.7 s 12.2-14.7 INR in platelet poor plasma or blood by coagulation as say 1.6 0.8-1.4 Capillary blood glucose measurement by g lucometer (mass/volume) - 01/12/20 05:52 Capillary blood glucose measurement by glucometer (mas s/volume) 144 mg/dL 70-110 Capillary blood glucose measurement by g lucometer (mass/volume) - 01/12/20 10:00 Capillary blood glucose measurement by glucometer (mas s/volume) 197 mg/dL 70-110 Capillary blood glucose measurement by g lucometer (mass/volume) - 01/12/20 15:30 Capillary blood glucose measurement by glucometer (mas s/volume) 125 mg/dL 70-110 Capillary blood glucose measurement by g lucometer (mass/volume) - 01/12/20 19:35 Capillary blood glucose measurement by glucometer (mas s/volume) 162 mg/dL 70-110 Capillary blood glucose measurement by g lucometer (mass/volume) - 01/13/20 06:10 Capillary blood glucose measurement by glucometer (mas s/volume) 77 mg/dL 70-110 Capillary blood glucose measurement by g lucometer (mass/volume) - 01/13/20 10:02 Capillary blood glucose measurement by glucometer (mas s/volume) 121 mg/dL 70-110 Capillary blood glucose measurement by g lucometer (mass/volume) - 01/13/20 17:14 Capillary blood glucose measurement by glucometer (mas s/volume) 210 mg/dL 70-110 Capillary blood glucose measurement by g lucometer (mass/volume) - 01/13/20 20:08 Capillary blood glucose measurement by glucometer (mas s/volume) 233 mg/dL 70-110 Capillary blood glucose measurement by g lucometer (mass/volume) - 01/14/20 06:25 Capillary blood glucose measurement by glucometer (mas s/volume) 207 mg/dL 70-110 PT panel in platelet poor plasma by coag ulation assay - 01/14/20 09:00 Prothrombin time (PT) in platelet poor plasma by coagu lation assay 16.4 s 12.2-14.7 INR in platelet poor plasma or blood by coagulation as say 1.3 0.8-1.4 Capillary blood glucose measurement by g lucometer (mass/volume) - 01/14/20 09:33 Capillary blood glucose measurement by glucometer (mas s/volume) 177 mg/dL 70-110 Capillary blood glucose measurement by g lucometer (mass/volume) - 01/14/20 15:22 Capillary blood glucose measurement by glucometer (mas s/volume) 116 mg/dL 70-110 Capillary blood glucose measurement by g lucometer (mass/volume) - 01/14/20 19:53 Capillary blood glucose measurement by glucometer (mas s/volume) 100 mg/dL 70-110 Whole blood basic metabolic panel - 12/31 12/19 05:20 Serum or plasma sodium measurement (moles/volume) 139 mmol/L 135-145 Serum or plasma potassium measurement (moles/volume) 3.9 mmol/L 3.6-5.0 Serum or plasma chloride measurement (moles/volume) 108 mmol/L 98-107 Carbon dioxide 20 mmol/L 21-32 Serum or plasma anion gap determination (moles/volume) 11 mmol/L 5-14 Serum or plasma urea nitrogen measurement (mass/volume ) 29 mg/dL 7-18 Serum or plasma creatinine measurement (mass/volume) 1.59 mg/dL 0.60-1.30 Serum or plasma urea nitrogen/creatinine mass ratio 18 NRG Serum or plasma creatinine measurement w ith calculation of estimated glomerular filtration rate 44 NRG Serum or plasma glucose measurement (mass/volume) 54 mg/dL 70-105 Serum or plasma calcium measurement (mass/volume) 8.4 mg/dL 8.5-10.1 PT panel in platelet poor plasma by coag ulation assay - 01/15/20 05:20 Prothrombin time (PT) in platelet poor plasma by coagu lation assay 15.7 s 12.2-14.7 INR in platelet poor plasma or blood by coagulation as say 1.2 0.8-1.4 Capillary blood glucose measurement by g lucometer (mass/volume) - 01/15/20 05:35 Capillary blood glucose measurement by glucometer (mas s/volume) 83 mg/dL 70-110 Capillary blood glucose measurement by g lucometer (mass/volume) - 01/15/20 10:53 Capillary blood glucose measurement by glucometer (mas s/volume) 186 mg/dL 70-110 Encounters ACCT No. Visit Date/Time Discharge Status Pt. Type Provider Facility Loc./Unit Complaint [id number] 04/19/2019 13:51:00 04/19/2019 23:59: 00 DIS Outpatient GIL KAHN [id number] 04/12/2019 12:19:00 04/12/2019 23:59: 00 DIS Outpatient GIL KAHN [id number] 03/31/2019 10:18:00 03/31/2019 23:59: 00 DIS Outpatient GIL KAHN [id number] 03/22/2019 12:05:00 03/22/2019 23:59: 00 DIS Outpatient GIL KAHN [id number] 01/11/2020 11:57:00 13:35:00 DIS Outpatient NABOR FRANCO, ANTOINETTE Ramirez [facility] 4TH SWB [id number] 01/04/2020 11:00:00 11:27:00 DIS Outpatient GODFREY ZEPEDA DO [facility] IRF DEBILITY [id number] 01/10/2020 08:37:00 23:59:59 CLS Outpatient ARMEN MARTINS DO [facility] SDC GANGRENE LEFT THIRD TOE [id number] 01/10/2020 08:56:00 23:50:00 DIS Outpatient AUBRIE FRANCO, BARBIE Murray [facility] CATH DEBILITY [id number] 01/02/2020 20:24:00 09:36:00 DIS Inpatient GARIMA FRANCO, RNENY Ramirez [facility] 4TH HYPERGLYCEMIA,SUBTHERAPEUTIC INR,DEPENDENT [id number] 10/11/2019 14:47:00 14:22:00 DIS Inpatient ANTONIO MICHAELS MD [facility] 4TH ORTHOPNEA, EDEMA [id number] 08/31/2019 10:07:00 15:10:00 DIS Outpatient ODILON MALONE [facility] REHAB CHONDROMALACIA L PATGABRIEL A S/P R BKA [id number] 08/17/2019 10:14:00 020 00:01:00 DIS Outpatient ODILON MALONE [facility] 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 [id number] 12/16/2018 16:00:00 019 14:55:00 DIS Inpatient RENNY PAINTING MD [facility] 4TH CELLULITIS R LE G;WOUND INFECTION R FOOT [id number] 11/07/2018 04:09:00 019 07:45:00 DIS Emergency NORBERTOMISAEL [facility] ER WEAKNESS/SOA [id number] 04/08/2018 10:10:00 018 23:59:59 CLS Inpatient COBY FRANCO, ARMEN Cash [facility] IRF VERTIGO, FALLS [id number] 04/05/2018 23:13:00 018 10:00:00 DIS Inpatient CASSY PALACIO MD [facility] 4TH FEVER OF UNKNOWN SOURCE,VOMITING,SEVERE DIZZINESS [id number] 02/09/2018 14:37:00 018 18:46:00 DIS Emergency MISAEL THORNTON [facility] ER FALL/POSS HEAD INJURY [id number] 10/11/2017 13:32:00 23:59:59 CLS Outpatient GIL KAHN DO [facility] RAD TRAUMA,M79.642, M79.672 [id number] 11/13/2016 10:31:00 017 12:36:00 DIS Inpatient COBY FRANCO, ARMEN Cash [facility] IRF DEBILITY [id number] 11/10/2016 12:25:00 017 10:30:00 DIS Inpatient HAKEEM FRANCO, CASSY Braden [facility] 4TH CELLULITIS KLE [id number] 07/08/2016 12:07:00 13:41:00 DIS Emergency PRIMO FRANCOIS APRN [facility] ER FALL/RIGHT FOOT PAIN [id number] 07/01/2016 10:00:00 23:59:59 CLS Preadmit GIL KAHN DO [facility] CR ACB REDO [id number] 06/24/2016 11:09:00 00:01:00 DIS Outpatient GIL KAHN DO [facility] CR ACB REDO [id number] 06/01/2016 16:44:00 23:59:59 CLS Outpatient GIL KAHN DO [facility] RAD HEADACHE,SEVERE VERTIGO [id number] 01/06/2016 16:41:00 23:59:59 CLS Outpatient JUDY CABRALES MD [facility] HH OSTEOMYLITIS LEFT FING ER, MSSA INFECTION [id number] 12/30/2015 14:44:00 23:59:59 CLS Outpatient JUDY CABRALES MD [facility] HH OSTEOMYLITIS LEFT FING ER, MSSA INFECTION [id number] 12/23/2015 16:18:00 23:59:59 CLS Outpatient JUDY CABRALES MD [facility] OSTEOMYLITIS LEFT FING ER, MSSA INFECTION [id number] 12/16/2015 13:01:00 016 23:59:59 CLS Outpatient JUDY CABRALES MD [facility] OSTEOMYLITIS LEFT FING ER, MSSA INFECTION [id number] 12/12/2015 11:43:00 016 23:59:59 CLS Outpatient JUDY CABRALES MD [facility] OSTEOMYLITIS (L) THUMB [id number] 12/09/2015 10:44:00 016 23:59:59 CLS Outpatient JUDY CABRALES MD [facility] OSTEOMYLITIS LT FINGER ,MSSA INFECTION [id number] 12/06/2015 10:50:00 016 12:00:00 DIS Outpatient ELMO DAWN MD [facility] WOUNDCARE [id number] 12/02/2015 15:53:00 016 23:59:59 CLS Outpatient JUDY CABRALES MD [facility] OSTEOMYLITIS LEFT FING ER, MSSA INFECTION [id number] 08/07/2015 07:10:00 016 14:05:00 DIS Outpatient BARBIE ALFRED MD [facility] CATH PAD,CLAUDICATION,SHORT OF BREATH,HTN,DM,HLP [id number] 06/19/2015 11:52:00 015 23:59:59 CLS Outpatient BARBIE ALFRED MD [facility] CARD CAD,ASHLY,HTN,HLP [id number] 01/23/2015 19:06:00 015 12:32:00 DIS Inpatient GIL KAHN DO [facility] 4TH HYPONATREMIA,SC IATICA [id number] 06/13/2014 14:05:00 014 23:59:59 CLS Outpatient GIL KAHN DO [facility] RT DSYPNEA [id number] 03/07/2014 12:28:00 014 23:59:59 CLS Outpatient GIL KAHN DO [facility] RAD TRAUMATIC BRAIN INJURY,TRAUMA [id number] 06/14/2013 07:34:00 23:59:59 CLS Outpatient BARBIE ALFRED MD [facility] RAD CAD,CP,DIZZINESS [id number] 06/09/2013 09:46:00 23:59:59 CLS Outpatient BARBIE ALFRED MD [facility] CARD CAD,CP,DIZZINESS [id number] 08/07/2015 07:09:00 Document Registration [id number] 04/27/2012 12:29:00 Document Registration [id number] 09/23/2011 11:18:00 Document Registration [id number] 11/26/2010 07:10:00 Document Registration [id number] 11/24/2010 07:01:00 Document Registration [id number] 11/07/2010 11:15:00 Document Registration [id number] 11/03/2010 09:00:00 Document Registration [id number] 06/26/2010 17:20:00 Document Registration [id number] 02/24/2010 06:59:00 Document Registration
[2020-02-21 12:08] LABS: ERYTHROCYTE SEDIMENTATION RATE 127 MM/HR (0-30)
--- NOTE | 2020-02-21 12:09 | Diagnostic Imaging Report ---
INDICATION: Foot infection. TIME OF EXAM: 11:53 AM 3 views of the left foot were obtained. There are postsurgical changes of amputation of the 3rd toe. There appear to be bony destructive changes involving the 3rd metatarsal head consistent with osteomyelitis. There are also destructive changes of the 4th metatarsal head. There appears to be irregularity involving the proximal aspect of the proximal phalanges of the 2nd and 4th toes as well. There appears to be some minimal soft tissue gas within the soft tissues at the amputation site. No fractures are seen. There is overlying dorsal soft tissue swelling. Midfoot and hindfoot are unremarkable. IMPRESSION: Soft tissue swelling. There are findings suggestive of osteomyelitis of the distal 3rd and 4th metatarsals as well as the proximal phalanges of the 2nd and 4th toes. Dictated by: Dictated on workstation # [id number]
[2020-02-21 12:33] LABS: INR 1.4 (0.8-1.4); PROTHROMBIN TIME PATIENT 17.3 SEC (12.2-14.7)
[2020-02-21] MEDS ORDERED: MINO100T10 PO (13:01)
[2020-02-21 13:26] VITALS: BP 143/73
== END 2020-02-21 13:26 | disposition other institution (70) ==
LOC: EDUNIT# 10:47 → ER 10:48
DX: M86.9 Osteomyelitis, unspecified (principal); I10 Essential (primary) hypertension; E78.00 Pure hypercholesterolemia, unspecified; I25.2 Old myocardial infarction; I25.10 Atherosclerotic heart disease of native coronary artery without angina pectoris; E11.42 Type 2 diabetes mellitus with diabetic polyneuropathy; E66.01 Morbid (severe) obesity due to excess calories; E11.621 Type 2 diabetes mellitus with foot ulcer; L97.519 Non-pressure chronic ulcer of other part of right foot with unspecified severity; Z89.422 Acquired absence of other left toe(s); Z88.8 Allergy status to other drugs, medicaments and biological substances; Z79.82 Long term (current) use of aspirin; Z79.4 Long term (current) use of insulin; Z79.01 Long term (current) use of anticoagulants; Z89.511 Acquired absence of right leg below knee; Z86.718 Personal history of other venous thrombosis and embolism; Z68.43 Body mass index [BMI] 50.0-59.9, adult; Z87.891 Personal history of nicotine dependence; Z95.1 Presence of aortocoronary bypass graft; Z95.5 Presence of coronary angioplasty implant and graft; Z80.3 Family history of malignant neoplasm of breast; Z80.41 Family history of malignant neoplasm of ovary; Z82.49 Family history of ischemic heart disease and other diseases of the circulatory system
CPT/HCPCS: 36415; 73630; 80053; 85025; 85610; 85652; 86141; 87070; 87205

== ENCOUNTER 2020-02-23 11:53 | Outpatient (CLI) | payer MEDICARE ==
[~2020-02-23] VITALS: Ht 177.8 cm; Wt 156.0 kg
[~2020-02-23 11:53] MED LIST changes: +MINO100T10 PO
[2020-02-23 12:45] VITALS: BP_SYST 0; BP_SYST 142; BP_DIAS 0; BP_DIAS 88
--- NOTE | 2020-02-23 13:25 | Diagnostic Imaging Report ---
INDICATION: Right-sided PICC line placement. TIME OF EXAM: 01:05 p.m. COMPARISON: Comparison is made with prior chest from 01/12/2020. FINDINGS: The heart is enlarged and stable. There are changes of median sternotomy and CABG. The right-sided PICC line is malpositioned. The PICC line does appear to extend into the right internal jugular vein. The PICC line is directed retrograde. Lungs are clear. There is no effusion or pneumothorax. IMPRESSION: Malpositioned right upper extremity PICC line with tip directed retrograde in the right internal jugular vein. Dictated by: Dictated on workstation # [id number]
--- NOTE | 2020-02-23 14:34 | Diagnostic Imaging Report ---
INDICATION: PICC line placement. TECHNIQUE: Frontal chest obtained at 02:08 p.m. and compared to 01:05 p.m. the same day. FINDINGS: PICC line is seen from the right arm, with its tip overlying the mid SVC. Study is somewhat technically limited. There is cardiomegaly and post sternotomy change. The lungs are clear. There is no pneumothorax or pleural fluid. IMPRESSION: Cardiomegaly with no acute infiltrate or pneumothorax or pleural fluid. PICC line as described above. Dictated by: Dictated on workstation # [id number]
== END 2020-02-23 14:50 | disposition home or self-care (01) ==
LOC: SDC 11:53
PROVIDERS: ATTEND Surgery
DX: Z45.2 Encounter for adjustment and management of vascular access device (principal); T85.628A Displacement of other specified internal prosthetic devices, implants and grafts, initial encounter; I51.7 Cardiomegaly; Z95.1 Presence of aortocoronary bypass graft; Z98.890 Other specified postprocedural states
CPT/HCPCS: 36569; 71045; 76937; C1751

== ENCOUNTER → 2020-02-25 | Outpatient (CLI) | payer MEDICARE ==
[2020-02-25 18:54] LABS: CALCIUM 8.7 MG/DL (8.5-10.1)
[2020-02-25 18:58] LABS: CREATININE SERUM 1.69 MG/DL (0.60-1.30)
[2020-02-25 19:06] LABS: VANCOMYCIN,TROUGH 17.1 UG/ML (10.0-20.0)
== END ==
LOC: LABNPT 18:25
PROVIDERS: ATTEND Surgery
DX: M86.9 Osteomyelitis, unspecified (principal)
CPT/HCPCS: 80048; 80202

== ENCOUNTER → 2020-03-10 | Outpatient (CLI) | payer MEDICARE | LOC: CVS 22:11 | PROVIDERS: ATTEND Surgery | DX: Z51.81 Encounter for therapeutic drug level monitoring (principal) | CPT/HCPCS: 80202 ==

== ENCOUNTER → 2020-03-15 | Outpatient (CLI) | payer MEDICARE | LOC: CVS 20:08 | PROVIDERS: ATTEND Internal Medicine | DX: Z51.81 Encounter for therapeutic drug level monitoring (principal) | CPT/HCPCS: 80202 ==

== ENCOUNTER → 2020-07-17 | Outpatient (CLI) | payer MEDICARE ==
[~2020-07-17] MED LIST changes: +ALPR.25T PO; -ALPR0.254 PO; +AMLO-251 PO; -AMLO10TA7 PO; +ASPI-1238 PO; -ASPI-983 PO; +CALC-664 PO; -CALC1TAB94 PO; -CLIN300C11 PO; +CLIN300C12 PO; -MECL-172 PO; +MECL-173 PO
[2020-07-17 15:07] LABS: HEMOGLOBIN 9.7 g/dL (13.3-17.7); MEAN PLATELET VOLUME 10.4 fL (9.0-12.2); WHITE BLOOD COUNT 5.3 10^3/uL (4.3-11.0)
[2020-07-17 15:19] LABS: ALBUMIN 3.7 GM/DL (3.2-4.5); POTASSIUM 4.5 MMOL/L (3.6-5.0)
[2020-07-17 15:20] LABS: CALCIUM 8.6 MG/DL (8.5-10.1)
[2020-07-17 15:22] LABS: TOTAL PROTEIN 6.8 GM/DL (6.4-8.2)
--- NOTE | 2020-07-17 15:22 | Diagnostic Imaging Report ---
INDICATION: Shortness of breath. PA and lateral chest There are postoperative changes from CABG surgery. Heart size and pulmonary vascularity are normal. Lungs are clear. There are no effusions or pneumothoraces. IMPRESSION: No acute abnormalities in the chest. Dictated by: Dictated on workstation # [id number]
[2020-07-17 15:23] LABS: BILIRUBIN,TOTAL 0.4 MG/DL (0.1-1.0)
[2020-07-17 15:25] LABS: CREATININE SERUM 2.62 MG/DL (0.60-1.30)
--- NOTE | 2020-07-17 15:26 | Diagnostic Imaging Report ---
INDICATION: Left hand cellulitis. FINDINGS: Three views of the left hand show dislocation of the DIP joint of the left middle finger. There is soft tissue swelling over the finger. There is osteolysis of the shafts of the distal phalanx. IMPRESSION: Dislocated DIP joint of the left middle finger with cellulitis and osteomyelitis of the distal phalanx. Dictated by: Dictated on workstation # [id number]
== END ==
LOC: RAD 14:45
PROVIDERS: ATTEND Physician Assistant
DX: S63.293A Dislocation of distal interphalangeal joint of left middle finger, initial encounter (principal); L03.114 Cellulitis of left upper limb; M86.142 Other acute osteomyelitis, left hand
CPT/HCPCS: 36415; 71046; 73130; 80053; 85027; 85652; 86141

== ENCOUNTER 2020-07-28 12:54 | Inpatient (IN) | payer MEDICARE ==
[~2020-07-28] VITALS: Ht 182.9 cm; Wt 146.1 kg
--- NOTE | 2020-07-28 13:17 | ED Respiratory ---
General Chief Complaint: Respiratory Problems Stated Complaint: SOA Source: patient, EMS Exam Limitations: no limitations History of Present Illness Date Seen by Provider: Jul 28, 2020 Time Seen by Provider: 13:00 Initial Comments Brought to the emergency room emergently by EMS from a local halfway where his initial oxygen saturation was about 80% on room air. EMS started CPAP and transported him here. They switched him to a nonrebreather at 15 L/min to bring him in from the ambulance to ER bed 5. This dropped his oxygen saturation to 86%. He was then started on BiPAP at 16/10 and 100% FiO2 with resultant ease in his respiratory effort and SPO2 of 100%. He has an infected left finger that he states is scheduled to be amputated with Dr. Petty at [address] this week. Allergies and Home Medications Allergies Coded Allergies: niacin (Unverified Allergy, Unknown, 06/26/10) rosuvastatin (Verified Allergy, Unknown, 04/20/07) fenofibrate (Unverified Adverse Reaction, Unknown, LIVER PROBLEMS, 01/23/15) Home Medications ALPRAZolam 0.25 Mg Tablet, 0.25 MG PO Q8H PRN for ANXIETY Prescribed by: ANTONIO MICHAELS on 01/15/20 1024 Allopurinol 100 Mg Tablet, 100 MG PO DAILY, (Reported) Amitriptyline HCl 25 Mg Tablet, 25 MG PO HS, (Reported) Amlodipine Besylate 10 Mg Tablet, 10 MG PO DAILY, (Reported) Ascorbic Acid 500 Mg Tablet, 500 MG PO BID, (Reported) Aspirin 81 Mg Tablet.dr, 81 MG PO DAILY, (Reported) Calcium Carbonate/Vitamin D3 1 Each Tablet, 1 TAB PO DAILY, (Reported) Carvedilol 25 Mg Tablet, 25 MG PO BID, (Reported) Cholecalciferol (Vitamin D3) 50 Mcg Capsule, 50 MCG PO BID, (Reported) Ferrous Sulfate 325 Mg Tablet, 325 MG PO Q48H, (Reported) Finasteride 5 Mg Tablet, 5 MG PO HS, (Reported) Folic Acid 1 Mg Tablet, 1 MG PO DAILY, (Reported) Furosemide 40 Mg Tablet, 40 MG PO BID, (Reported) Gemfibrozil 600 Mg Tablet, 600 MG PO DAILY, (Reported) Hydralazine HCl 100 Mg Tablet, 100 MG PO TID, (Reported) Insulin Aspart 100 Unit/1 Ml Susp, 18 UNIT SQ TIDAC, (Reported) LAST FILLED 09-12-2019 # 3 VIALS/55 DAY SUPPLY Insulin Determir 1,000 Units/10 Ml Soln, 67 UNITS SC BID, (Reported) LAST FILLED 09-25-2019 #3 VIALS/22 DAY SUPPLY Ipratropium/Albuterol Sulfate 3 Ml Ampul.neb, 3 ML IH Q6H PRN for SHORTNESS OF BREATH, (Reported) Magnesium Oxide 400 Mg Tablet, 400 MG PO DAILY, (Reported) Meclizine HCl 25 Mg Tablet, 25 MG PO BID PRN for DIZZINESS, (Reported) Minocycline HCl 100 Mg Tablet, 100 MG PO BID Prescribed by: PRIMO FRANCOIS on 02/21/20 1301 [place]-3/Dha/Epa/Fish Oil 1 Each Capsule, 1,000 MG PO BID, (Reported) Ondansetron HCl 8 Mg Tablet, 8 MG PO Q8H PRN for NAUSEA/VOMITING-1ST LINE, (Reported) Potassium Chloride 20 Meq Tablet.er, 20 MEQ PO DAILY, (Reported) Tamsulosin HCl 0.4 Mg Cap, 0.4 MG PO HS, (Reported) Venlafaxine HCl 150 Mg Cap.er.24h, 150 MG PO DAILY, (Reported) Vitamin E Acetate 400 Unit Capsule, 400 UNIT PO DAILY, (Reported) Warfarin Sodium 10 Mg Tablet, 10 MG PO Q48H, (Reported) ALTERNATES BETWEEN 5MG & 10MG Warfarin Sodium 5 Mg Tablet, 5 MG PO Q48H, (Reported) ALTERNATES 10MG & 5MG Patient Home Medication List Home Medication List Reviewed: Yes Review of Systems Review of Systems Constitutional: see HPI; No chills, No fever EENTM: see HPI Respiratory: see HPI, cough, short of breath Cardiovascular: no symptoms reported Genitourinary: no symptoms reported Musculoskeletal: no symptoms reported Skin: no symptoms reported Psychiatric/Neurological: No Symptoms Reported Hematologic/Lymphatic: No Symptoms Reported Immunological/Allergic: no symptoms reported Past Yrasnop-Zshgmq-Cffgtg Hx Patient Social History Alcohol Use: Denies Use Recreational Drug Use: Yes Drug of Choice: past hx drug use. Former Smoker, Quit: Jul 07, 2006 2nd Hand Smoke Exposure: No Recent Foreign Travel: No Contact w/Someone Who Travel: No Recent Hopitalizations: No Immunizations Up To Date Tetanus Booster (TDap): Unknown PED Vaccines UTD: No Date of Pneumonia Vaccine: May 02, 2018 Seasonal Allergies Seasonal Allergies: No Past Medical History Surgeries: Yes (4 VESSEL CABG 2005; CARDIAC STENTS X 8; LEFT KNEE SCOPE) Cardiac, CABG, Coronary Stent, Orthopedic Respiratory: Yes (CPAP) Sleep Apnea, COPD Currently Using CPAP: Yes Currently Using BIPAP: No Cardiac: Yes Cardiomyopathy, Chronic Edema/Swelling, Coronary Artery Disease, Deep Vein Thrombosis, Heart Attack, High Cholesterol, Hypertension, Peripheral Vascular, Syncope Neurological: Yes (3 PINCHED NERVES ON NECK ON LEFT SIDE; PERIPHERAL NEUROPATHY) Neuropathy, Vertigo Reproductive Disorders: No Genitourinary: No Gastrointestinal: Yes Gall Bladder Disease Musculoskeletal: Yes (CHRONIC NECK PAIN ; LEFT KNEE SCOPE) Degenerate Disk Disease, Arthritis, Chronic Back Pain Endocrine: Yes (INSULIN + PILLS; MORBID OBESITY) Diabetes, Insulin dep HEENT: No Loss of Vision: Bilateral Cancer: No Psychosocial: No Integumentary: Yes (CHRONIC DIABETIC FOOT ULCER RIGHT GREAT TOE) Recent Skin Changes Blood Disorders: No Family Medical History Cardiovascular disease 19 FATHER, Onset:Unknown FH: breast cancer G8 SISTER, Onset:50's - 60 FH: ovarian cancer 19 MOTHER, Onset:40's - 50 No Family History of: Cancer of mouth Heart Disease, Cancer Physical Exam Vital Signs - First Documented 07/28/20 13:09 Temp 37.0 Pulse 95 Resp 27 B/P (MAP) 120/30 (60) Pulse Ox 84 O2 Delivery Room Air Capillary Refill : Height: 6'0.00" Weight: 322lbs. 1.0oz. 146.470204gv; 46.00 BMI Method:Stated General Appearance: moderate distress, obese Eyes: Bilateral Eye Normal Inspection, Bilateral Eye PERRL, Bilateral Eye EOMI HEENT: PERRL/EOMI, normal ENT inspection Neck: non-tender, full range of motion Respiratory: normal breath sounds, no respiratory distress, no accessory muscle use Gastrointestinal: normal bowel sounds, non tender, soft Extremities: other (Left middle finger is swollen erythematous and edematous and has known osteomyelitis. He has a right below the knee amputation.) Neurologic/Psychiatric: alert, normal mood/affect, oriented x 3 Skin: normal color, warm/dry Focused Exam Lactate Level 07/28/20 13:19: Lactic Acid Level 2.29*H Lactic Acid Level Laboratory Tests Test 07/28/20 13:19 Lactic Acid Level 2.29 MMOL/L (0.50-2.00) *H Progress/Results/Core Measures Suspected Sepsis SIRS Temperature: Pulse: Respiratory Rate: Laboratory Tests 07/28/20 13:08: White Blood Count 15.5H Blood Pressure / Mean: 07/28/20 13:19: Lactic Acid Level 2.29*H Laboratory Tests 07/28/20 13:00: INR Comment 1.8H 07/28/20 13:08: Creatinine 2.19H, Platelet Count 177, Total Bilirubin 1.0 Results/Orders Lab Results Laboratory Tests Test 07/28/20 13:00 07/28/20 13:08 07/28/20 13:10 07/28/20 13:19 Range/Units Prothrombin Time 21.0 H 12.2-14.7 SEC INR Comment 1.8 H 0.8-1.4 Procalcitonin 0.30 H <0.10 NG/ML White Blood Count 15.5 H 4.3-11.0 10^3/uL Red Blood Count 3.74 L 4.30-5.52 10^6/uL Hemoglobin 10.4 L 13.3-17.7 g/dL Hematocrit 32 L 40-54 % Mean Corpuscular Volume 87 80-99 fL Mean Corpuscular Hemoglobin 28 25-34 pg Mean Corpuscular Hemoglobin Concent 32 32-36 g/dL Red Cell Distribution Width 15.0 H 10.0-14.5 % Platelet Count 177 130-400 10^3/uL Mean Platelet Volume 11.3 9.0-12.2 fL Immature Granulocyte % (Auto) 1 % Neutrophils (%) (Auto) 81 H 42-75 % Lymphocytes (%) (Auto) 10 L 12-44 % Monocytes (%) (Auto) 7 0-12 % Eosinophils (%) (Auto) 0 0-10 % Basophils (%) (Auto) 0 0-10 % Neutrophils # (Auto) 12.7 H 1.8-7.8 10^3/uL Lymphocytes # (Auto) 1.6 1.0-4.0 10^3/uL Monocytes # (Auto) 1.2 H 0.0-1.0 10^3/uL Eosinophils # (Auto) 0.0 0.0-0.3 10^3/uL Basophils # (Auto) 0.0 0.0-0.1 10^3/uL Immature Granulocyte # (Auto) 0.1 0.0-0.1 10^3/uL Neutrophils % (Manual) 75 % Lymphocytes % (Manual) 13 % Monocytes % (Manual) 10 % Basophils % (Manual) 1 % Band Neutrophils 1 % Anisocytosis SLIGHT D-Dimer 1.02 H 0.00-0.49 UG/ML Blood Gas Puncture Site RGHT RAD Blood Gas Patient Temperature 99.7 Arterial Blood pH 7.35 L 7.37-7.43 Arterial Blood Partial Pressure CO2 43 35-45 MMHG Arterial Blood Partial Pressure O2 210 H 79-93 MMHG Arterial Blood HCO3 23 23-27 MMOL/L Arterial Blood Total CO2 23.9 21.0-31.0 MMOL/L Arterial Blood Oxygen Saturation 98 94-100 % Arterial Blood Base Excess -2.0 -2.5-2.5 MMOL/L Will Test POS Blood Gas Ventilator Setting NO Blood Gas Inspired Oxygen BIPAP Sodium Level 135 135-145 MMOL/L Potassium Level 4.4 3.6-5.0 MMOL/L Chloride Level 102 98-107 MMOL/L Carbon Dioxide Level 20 L 21-32 MMOL/L Anion Gap 13 5-14 MMOL/L Blood Urea Nitrogen 47 H 7-18 MG/DL Creatinine 2.19 H 0.60-1.30 MG/DL Estimat Glomerular Filtration Rate 30 BUN/Creatinine Ratio 21 Glucose Level 269 H 70-105 MG/DL Calcium Level 9.3 8.5-10.1 MG/DL Corrected Calcium 9.3 8.5-10.1 MG/DL Total Bilirubin 1.0 0.1-1.0 MG/DL Aspartate Amino Transf (AST/SGOT) 19 5-34 U/L Alanine Aminotransferase (ALT/SGPT) 24 0-55 U/L Alkaline Phosphatase 89 40-136 U/L Troponin I 0.278 H <0.028 NG/ML B-Type Natriuretic Peptide 1257.4 H <100.0 PG/ML Total Protein 7.7 6.4-8.2 GM/DL Albumin 4.0 3.2-4.5 GM/DL Coronavirus 2018 (LEV) Negative Negative Lactic Acid Level 2.29 *H 0.50-2.00 MMOL/L My Orders Orders - PRIMO FRANCOIS SPACE CONTROL SUPERVISOR Cbc With Automated Diff (07/28/20 13:11) Comprehensive Metabolic Panel (07/28/20 13:11) BNP (07/28/20 13:11) Troponin I (07/28/20 13:11) Ekg Tracing (07/28/20 13:11) Chest 1 View, Ap/Pa Only (07/28/20 13:11) Covid 19 Inhouse Test (07/28/20 13:11) Coronavirus Sars-Cov-2 So 2019 (07/28/20 13:11) Fibrin Degradation Products (07/28/20 13:11) Blood Culture (07/28/20 13:11) Lactic Acid Analyzer (07/28/20 13:11) Arterial Blood Gas (07/28/20 13:11) Bipap (Bilevel) Set Up (07/28/20 13:11) Manual Differential (07/28/20 13:08) Furosemide Injection (Lasix Injection) (07/28/20 14:00) Protime With Inr (07/28/20 14:05) Procalcitonin (Pct) (07/28/20 14:08) Piperacillin Sodium/Tazobactam (Zosyn Vi (07/28/20 14:15) Medications Given in ED Current Medications Medications Dose Ordered Sig/Perico Route Start Time Stop Time Status Last Admin Dose Admin Furosemide 40 mg ONCE ONCE IVP 07/28/20 14:00 07/28/20 14:01 DC 07/28/20 14:35 40 MG Vital Signs/I&O 07/28/20 13:09 Temp 37.0 Pulse 95 Resp 27 B/P (MAP) 120/30 (60) Pulse Ox 84 O2 Delivery Room Air Capillary Refill : Diagnostic Imaging Diagonstic Imaging: Xray Plain Films/CT/US/NM/MRI: chest Comments NAME: JOSEELMO [facility] REC#: [id number] PT STATUS: REG ER : 1950 PHYSICIAN: PRIMO FRANCOIS APRN ADMIT DATE: 07/28/20/ER Draft Date of Exam:07/28/20 CHEST 1 VIEW, AP/PA ONLY EXAMINATION: Chest radiograph, portable AP view. DATE: 07/28/2020 1:35 PM INDICATION: 69-year-old male, shortness of breath. Potential COVID 19 infection. COMPARISON: July 17, 2020. FINDINGS: Heart size and mediastinal contours are unchanged. There are median sternotomy wires. There is no identified pneumothorax. There is no large pleural effusion. There is no identified interval focal airspace consolidation. IMPRESSION: 1. No radiographically apparent interval acute cardiopulmonary abnormality. Report was faxed to [facility] by shorty at 1:42p.m. Dictated on workstation # [id number] Dict: 07/28/20 1337 Trans: 07/28/20 1342 SHORTY [id number] Interpreted by: MINDI MCCANN MD Electronically signed by: Departure Communication (Admissions) Time/Spoke to Admitting Phy: 14:[address] Fay, will admit. Consult cardiology. I spoke with Dr. Beauchamp he will consult and would like Toprol aspirin and bridging Lovenox until his INR is therapeutic. 1434-remains on BiPAP heart rate 79 with left bundle branch block respiratory rate has dropped to 14 oxygen saturation 98% on BiPAP at 80% FiO2 settings 16/10. Blood pressure 140/80. Impression Primary Impression: Respiratory failure Additional Impression: Finger osteomyelitis, left Disposition: ADMITTED INPATIENT Condition: Stable Admissions Decision to Admit Reason: Admit from ER (General) Decision to Admit/Date: Jul 28, 2020 Time/Decision to Admit Time: 14:43 Departure-Patient Inst. Referrals: JEISON CASTELLANOS MD (PCP/Family) Primary Care Physician PRIMO FRANCOIS APRN Jul 28, 2020 13:17
[2020-07-28 13:23] LABS: BASOPHILS % (AUTO) 0 % (0-10); EOSINOPHILS % (AUTO) 0 % (0-10); HEMATOCRIT 32 % (40-54); HEMOGLOBIN 10.4 g/dL (13.3-17.7); LYMPHOCYTES # (AUTO) 1.6 10^3/uL (1.0-4.0); LYMPHOCYTES % (AUTO) 10 % (12-44); MEAN CORPUSCULAR HEMOGLOBIN 28 pg (25-34); MEAN CORPUSCULAR HGB CONC 32 g/dL (32-36); MEAN CORPUSCULAR VOLUME 87 fL (80-99); MEAN PLATELET VOLUME 11.3 fL (9.0-12.2); MONOCYTES # (AUTO) 1.2 10^3/uL (0.0-1.0); MONOCYTES % (AUTO) 7 % (0-12); NEUTROPHILS # (AUTO) 12.7 10^3/uL (1.8-7.8); NEUTROPHILS % (AUTO) 81 % (42-75); PLATELET COUNT 177 10^3/uL (130-400); WHITE BLOOD COUNT 15.5 10^3/uL (4.3-11.0)
[2020-07-28 13:24] LABS: ABG OXYGEN SATURATION 98 % (94-100); ABG PCO2 43 MMHG (35-45); ABG PH 7.35 (7.37-7.43); ABG PO2 210 MMHG (79-93); ABG TCO2 23.9 MMOL/L (21.0-31.0)
[2020-07-28 13:31] LABS: POTASSIUM 4.4 MMOL/L (3.6-5.0)
[2020-07-28 13:32] LABS: CALCIUM 9.3 MG/DL (8.5-10.1)
[2020-07-28 13:33] LABS: TOTAL PROTEIN 7.7 GM/DL (6.4-8.2)
[2020-07-28 13:37] LABS: CREATININE SERUM 2.19 MG/DL (0.60-1.30)
[2020-07-28 13:39] LABS: ALLENS TEST POS; INSPIRED O2 BIPAP; PATIENT TEMP 99.7; VENTILATOR NO
[2020-07-28 13:41] LABS: ANISOCYTOSIS SLIGHT; BAND NEUTROPHILS 1 %; BASOPHILS % (MANUAL) 1 %; LYMPHOCYTES % (MANUAL) 13 %; MONOCYTES % (MANUAL) 10 %; NEUTROPHILS % (MANUAL) 75 %
--- NOTE | 2020-07-28 13:42 | Diagnostic Imaging Report ---
EXAMINATION: Chest radiograph, portable AP view. DATE: 07/28/2020 1:35 PM INDICATION: 69-year-old male, shortness of breath. Potential COVID 19 infection. COMPARISON: July 17, 2020. FINDINGS: Heart size and mediastinal contours are unchanged. There are median sternotomy wires. There is no identified pneumothorax. There is no large pleural effusion. There is no identified interval focal airspace consolidation. IMPRESSION: 1. No radiographically apparent interval acute cardiopulmonary abnormality. Report was faxed to [facility] by annmarie at 1:42p.m. Dictated by: Dictated on workstation # [id number]
[2020-07-28] MEDS ORDERED: FUROSEMIDE 40 MG/4 ML INJ (LASIX) IVP ONE (14:00)
[2020-07-28] MEDS ORDERED: PIPERACILLIN SODIUM/TAZOBACTAM 4.5 GM in NS (IVPB) 100 ML IV ONE (14:15)
[2020-07-28 14:19] LABS: INR 1.8 (0.8-1.4)
[2020-07-28] MEDS ORDERED: ENOXAPARIN 80 MG/0.8 ML (LOVENOX) SYR SC ONE (14:45)
[2020-07-28] MEDS ORDERED: ASPIRIN 81 MG CHEW (CHILDREN'S ASA) PO ONE (14:45)
[2020-07-28] MEDS ORDERED: VANCOMYCIN 2,500 MG/NS 500 ML IVPB IV SCH ×2 (16:00)
[2020-07-28] MEDS ORDERED: CATHETER FLUSH 10 ML SYR IV PRN (16:15)
[2020-07-28] MEDS ORDERED: ENOXAPARIN 300 MG/3 ML (LOVENOX) MULTI-DOSE VIAL SQ SCH ×2 (17:00→21:00)
[2020-07-28 17:25] VITALS: BP 142/105
[2020-07-28] MEDS: inSUlin ASPART (NovoLOG) 1 UNIT/0.01 ML (CHARGE PER UNIT) SC SCH ×2 (17:39→20:09)
[2020-07-28] MEDS ORDERED: RT-ALBUTEROL INHALER HFA (VENTOLIN HFA) 18 GM IH PRN (17:45)
[2020-07-28] MEDS ORDERED: RT-ALBUTEROL INHALER HFA (VENTOLIN HFA) 18 GM IH SCH (18:00)
[2020-07-28] MEDS: RT-ALBUTEROL INHALER HFA (VENTOLIN HFA) 18 GM IH SCH ×4 (19:44→23:28)
[2020-07-28] MEDS ORDERED: meTOproloL SUCCINATE 50 MG (TOPROL XL) TAB PO SCH (20:00)
[2020-07-28] MEDS: PIPERACILLIN/TAZO 4.5 GM/NS 100 ML IV SCH ×2 (20:03)
[2020-07-28] MEDS: CATHETER FLUSH 10 ML SYR IV SCH (20:05)
[2020-07-28] MEDS ORDERED: CARVEDILOL 12.5 MG (COREG) TABLET PO ONE (23:30)
[2020-07-28] MEDS ORDERED: hydrALAZINE (APRESOLINE) 25 MG TAB PO ONE (23:30)
--- NOTE | 2020-07-28 23:32 | History & Physical-Hospitalist ---
History of Present Illness HPI/Chief Complaint Bin Newberry is a 69 year old male with PMH HTN, T2DM on insulin, CAD s/p CABG, PVD s/p BKA, atrial fibrillation on coumadin, BPH, who presented with shortness of breath. He resides at a assisted. He was reportedly found to have a low oxygen saturation. EMS was called and placed him on CPAP. He was placed on BiPAP in the ER. Upon my examination, he is wearing BiPAP. He will awaken for brief periods, but is uncooperative with my exam. Source: patient, RN/MD Exam Limitations: clinical condition Date Seen 07/28/20 Time Seen by a Provider: 16:00 Attending Physician Antoinette Tomlin MD PCP Ventura Costa MD Referring Physician Date of Admission Jul 28, 2020 at 14:09 Home Medications & Allergies Home Medications Reviewed patient Home Medication Reconciliation performed by pharmacy medication reconciliations driver license technician and/or nursing. Patients Allergies have been reviewed. Allergies Allergies Coded Allergies niacin (Unverified Allergy, Unknown, 06/26/10) rosuvastatin (Verified Allergy, Unknown, 04/20/07) fenofibrate (Unverified Adverse Reaction, Unknown, LIVER PROBLEMS, 01/23/15) Past Kfllzep-Jduxua-Gdelbx Hx Past Med/Social Hx: Reviewed Nursing Past Med/Soc Hx Patient Social History Alcohol Use: Denies Use Recreational Drug Use: Yes Drug of Choice: past hx drug use. Former Smoker, Quit: Jul 07, 2006 2nd Hand Smoke Exposure: No Recent Foreign Travel: No Contact w/other who traveled: No Recent Hopitalizations: No Recent Infectious Disease Expo: No Immunizations Up To Date Tetanus Booster (TDap): Unknown Pediatric: No Date of Pneumonia Vaccine: May 02, 2018 Seasonal Allergies Seasonal Allergies: No Past Medical History Surgeries: Cardiac, CABG, Coronary Stent, Orthopedic Respiratory: Sleep Apnea Currently Using CPAP: Yes Currently Using BIPAP: No Cardiac: Cardiomyopathy, Chronic Edema/Swelling, Coronary Artery Disease, Deep Vein Thrombosis, Heart Attack, High Cholesterol, Hypertension, Peripheral Vascular, Syncope Neurological: Neuropathy, Vertigo Reproductive: No Gastrointestinal: Gall Bladder Disease Musculoskeletal: Degenerate Disk Disease, Arthritis, Chronic Back Pain Endocrine: Diabetes, Insulin dep Loss of Vision: Bilateral Skin/Integumentary: Recent Skin Changes History of Blood Disorders: No Family History Cardiovascular disease 19 FATHER, Onset:Unknown FH: breast cancer G8 SISTER, Onset:50's - 60 FH: ovarian cancer 19 MOTHER, Onset:40's - 50 No Family History of: Cancer of mouth Heart Disease, Cancer Review of Systems Constitutional: see HPI Physical Exam Physical Exam Vital Signs Vital Signs - First Documented 07/28/20 07/28/20 07/28/20 13:09 15:39 16:00 Temp 37.0 Pulse 95 Resp 27 B/P (MAP) 120/30 (60) Pulse Ox 84 O2 Delivery Room Air O2 Flow Rate 30.00 FiO2 30 Capillary Refill : Less Than 3 Seconds Height, Weight, BMI Height: 6'0.00" Weight: 322lbs. 1.0oz. 146.230796nh; 48.00 BMI Method:Stated General Appearance: No Apparent Distress, Obese, Other (wearing BiPAP) HEENT: Other (wearing BiPAP) Respiratory: Lungs Clear, Normal Breath Sounds, No Respiratory Distress, Other (wearing BiPAP) Cardiovascular: Regular Rate, Rhythm, No Murmur Gastrointestinal: Normal Bowel Sounds, Soft Extremity: Pedal Edema, Other (right BKA, left hand third digit red and swollen with bandage in place) Neurologic/Psychiatric: Other (lethargic, uncooperative) Skin: Normal Color, Warm/Dry Results Results/Procedures Labs Laboratory Tests 07/28/20 13:08 Patient resulted labs reviewed. Imaging: Reviewed Imaging Report Assessment/Plan Admission Diagnosis Acute on chronic respiratory failure with hypoxia Admission Status: Inpatient Order (span 2 midnights) Reason for Inpatient Admission: Respiratory failure requiring BiPAP Assessment and Plan Acute on chronic respiratory failure with hypoxia Person under investigation for COVID-19 Sepsis Possible pneumonia NSTEMI Osteomyelitis of left finger SIRS+ with elevated WBC, tachycardia, and tachypnea Chest xray without acute abnormalities COVID LEV negative, PCR pending BNP elevated Given a dose of Lasix Troponin elevated, trend Consult Cardiology Procalcitonin 0.30 Started on Vancomycin and Zosyn Scheduled for surgery this week as outpatient with Dr. Carcamo, Stacy 4 States Atrial fibrillation on Coumadin INR 1.8 Continue Coumadin Begin Lovenox T2DM Levemir Sliding scale insulin HTN BPH Continue home meds Morbid obesity Clinically significant, no acute management needs Diagnosis/Problems Diagnosis/Problems (1) Sepsis Status: Acute (2) PNA (pneumonia) Status: Acute (3) CHF (congestive heart failure) Status: Acute (4) Respiratory failure Status: Acute (5) Person under investigation for COVID-19 Status: Acute (6) Osteoarthritis of left middle finger Status: Acute (7) NSTEMI (non-ST elevation myocardial infarction) Status: Acute (8) Morbid obesity Status: Chronic Clinical Quality Measures DVT/VTE Risk/Contraindication: Risk Factor Score Per Nursin RFS Level Per Nursing on Admit: 4+=Very High ANTOINETTE TOMLIN MD Jul 28, 2020 23:32
[2020-07-29] MEDS ORDERED: inSUlin ASPART (NovoLOG) 1 UNIT/0.01 ML (CHARGE PER UNIT) SC SCH
[2020-07-29] MEDS ORDERED: warFARin 5 MG (COUMADIN) TAB PO ONE (00:15)
[2020-07-29] MEDS: RT-ALBUTEROL INHALER HFA (VENTOLIN HFA) 18 GM IH SCH ×7 (02:35→21:20)
[2020-07-29 03:34] LABS: BASOPHILS % (AUTO) 0 % (0-10); EOSINOPHILS # (AUTO) 0.2 10^3/uL (0.0-0.3); EOSINOPHILS % (AUTO) 2 % (0-10); HEMATOCRIT 28 % (40-54); HEMOGLOBIN 8.6 g/dL (13.3-17.7); LYMPHOCYTES # (AUTO) 0.7 10^3/uL (1.0-4.0); LYMPHOCYTES % (AUTO) 12 % (12-44); MEAN CORPUSCULAR HEMOGLOBIN 27 pg (25-34); MEAN CORPUSCULAR HGB CONC 31 g/dL (32-36); MEAN CORPUSCULAR VOLUME 87 fL (80-99); MEAN PLATELET VOLUME 11.2 fL (9.0-12.2); MONOCYTES # (AUTO) 0.6 10^3/uL (0.0-1.0); MONOCYTES % (AUTO) 9 % (0-12); NEUTROPHILS # (AUTO) 4.8 10^3/uL (1.8-7.8); NEUTROPHILS % (AUTO) 76 % (42-75); PLATELET COUNT 136 10^3/uL (130-400); WHITE BLOOD COUNT 6.3 10^3/uL (4.3-11.0)
[2020-07-29 03:49] LABS: INR 1.9 (0.8-1.4); PROTHROMBIN TIME PATIENT 22.3 SEC (12.2-14.7)
[2020-07-29 03:58] LABS: CALCIUM 8.8 MG/DL (8.5-10.1); CREATININE SERUM 2.08 MG/DL (0.60-1.30); MAGNESIUM 2.3 MG/DL (1.6-2.4); PHOSPHORUS 4.3 MG/DL (2.3-4.7); POTASSIUM 3.9 MMOL/L (3.6-5.0)
--- NOTE | 2020-07-29 04:37 | Pulmonary Consultation ---
History of Present Illness History of Present Illness Date Seen by Provider: Jul 29, 2020 Time Seen by Provider: 04:32 Date of Admission Allergies and Home Medications Allergies Coded Allergies: niacin (Unverified Allergy, Unknown, 06/26/10) rosuvastatin (Verified Allergy, Unknown, 04/20/07) fenofibrate (Unverified Adverse Reaction, Unknown, LIVER PROBLEMS, 01/23/15) Home Medications ALPRAZolam 0.25 Mg Tablet, 0.25 MG PO Q8H PRN for ANXIETY Prescribed by: ANTONIO MICHAELS on 01/15/20 1024 Allopurinol 100 Mg Tablet, 100 MG PO DAILY, (Reported) Amitriptyline HCl 25 Mg Tablet, 25 MG PO HS, (Reported) Amlodipine Besylate 10 Mg Tablet, 10 MG PO DAILY, (Reported) Ascorbic Acid 500 Mg Tablet, 500 MG PO BID, (Reported) Aspirin 81 Mg Tablet.dr, 81 MG PO DAILY, (Reported) Calcium Carbonate/Vitamin D3 1 Each Tablet, 1 TAB PO DAILY, (Reported) Carvedilol 25 Mg Tablet, 25 MG PO BID, (Reported) Cholecalciferol (Vitamin D3) 50 Mcg Capsule, 50 MCG PO BID, (Reported) Ferrous Sulfate 325 Mg Tablet, 325 MG PO Q48H, (Reported) Finasteride 5 Mg Tablet, 5 MG PO HS, (Reported) Folic Acid 1 Mg Tablet, 1 MG PO DAILY, (Reported) Furosemide 40 Mg Tablet, 40 MG PO BID, (Reported) Gemfibrozil 600 Mg Tablet, 600 MG PO DAILY, (Reported) Hydralazine HCl 100 Mg Tablet, 100 MG PO TID, (Reported) Insulin Aspart 100 Unit/1 Ml Susp, 18 UNIT SQ TIDAC, (Reported) LAST FILLED 09-12-2019 # 3 VIALS/55 DAY SUPPLY Insulin Determir 1,000 Units/10 Ml Soln, 67 UNITS SC BID, (Reported) LAST FILLED 09-25-2019 #3 VIALS/22 DAY SUPPLY Ipratropium/Albuterol Sulfate 3 Ml Ampul.neb, 3 ML IH Q6H PRN for SHORTNESS OF BREATH, (Reported) Magnesium Oxide 400 Mg Tablet, 400 MG PO DAILY, (Reported) Meclizine HCl 25 Mg Tablet, 25 MG PO BID PRN for DIZZINESS, (Reported) Minocycline HCl 100 Mg Tablet, 100 MG PO BID Prescribed by: PRIMO FRANCOIS on 02/21/20 1301 [place]-3/Dha/Epa/Fish Oil 1 Each Capsule, 1,000 MG PO BID, (Reported) Ondansetron HCl 8 Mg Tablet, 8 MG PO Q8H PRN for NAUSEA/VOMITING-1ST LINE, (Reported) Potassium Chloride 20 Meq Tablet.er, 20 MEQ PO DAILY, (Reported) Tamsulosin HCl 0.4 Mg Cap, 0.4 MG PO HS, (Reported) Venlafaxine HCl 150 Mg Cap.er.24h, 150 MG PO DAILY, (Reported) Vitamin E Acetate 400 Unit Capsule, 400 UNIT PO DAILY, (Reported) Warfarin Sodium 10 Mg Tablet, 10 MG PO Q48H, (Reported) ALTERNATES BETWEEN 5MG & 10MG Warfarin Sodium 5 Mg Tablet, 5 MG PO Q48H, (Reported) ALTERNATES 10MG & 5MG Past Gxyzprq-Mmhbpl-Uxwhok Hx Past Med/Social Hx: Reviewed Nursing Past Med/Soc Hx Patient Social History Alcohol Use: Denies Use Recreational Drug Use: Yes Drug of Choice: past hx drug use. Former Smoker, Quit: Jul 07, 2006 2nd Hand Smoke Exposure: No Recent Foreign Travel: No Contact w/Someone Who Travel: No Recent Infectious Disease Expo: No Recent Hopitalizations: No Immunizations Up To Date Tetanus Booster (TDap): Unknown PED Vaccines UTD: No Date of Pneumonia Vaccine: May 02, 2018 Seasonal Allergies Seasonal Allergies: No Past Medical History Surgeries: Yes (4 VESSEL CABG 2005; CARDIAC STENTS X 8; LEFT KNEE SCOPE) Cardiac, CABG, Coronary Stent, Orthopedic Respiratory: Yes (CPAP) Sleep Apnea, COPD Currently Using CPAP: Yes Currently Using BIPAP: No Cardiac: Yes Cardiomyopathy, Chronic Edema/Swelling, Coronary Artery Disease, Deep Vein Thrombosis, Heart Attack, High Cholesterol, Hypertension, Peripheral Vascular, Syncope Neurological: Yes (3 PINCHED NERVES ON NECK ON LEFT SIDE; PERIPHERAL NEUROPATHY) Neuropathy, Vertigo Reproductive Disorders: No Genitourinary: No Gastrointestinal: Yes Gall Bladder Disease Musculoskeletal: Yes (CHRONIC NECK PAIN ; LEFT KNEE SCOPE) Degenerate Disk Disease, Arthritis, Chronic Back Pain Endocrine: Yes (INSULIN + PILLS; MORBID OBESITY) Diabetes, Insulin dep HEENT: No Loss of Vision: Bilateral Cancer: No Psychosocial: No Integumentary: Yes (CHRONIC DIABETIC FOOT ULCER RIGHT GREAT TOE) Recent Skin Changes Blood Disorders: No Family Medical History Cardiovascular disease 19 FATHER, Onset:Unknown FH: breast cancer G8 SISTER, Onset:50's - 60 FH: ovarian cancer 19 MOTHER, Onset:40's - 50 No Family History of: Cancer of mouth Heart Disease, Cancer Review of Systems Time Seen by Provider: 04:34 Sepsis Event Evaluation Height, Weight, BMI Height: 6'0.00" Weight: 322lbs. 1.0oz. 146.323345hy; 48.00 BMI Method:Stated Exam Exam Vital Signs Date Time Temp Pulse Resp B/P (MAP) Pulse Ox O2 Delivery O2 Flow Rate FiO2 07/29/20 02:36 65 24 94 30.00 07/29/20 00:34 NIV Bilevel 30.00 07/28/20 23:40 35.9 16 96 Nasal Cannula 4.00 07/28/20 23:28 65 24 94 30.00 07/28/20 23:00 68 16 158/94 (115) 90 NIV Bilevel 30.00 07/28/20 22:00 70 16 147/95 (112) 92 NIV Bilevel 30.00 07/28/20 21:00 70 18 144/97 (113) 94 NIV Bilevel 30.00 07/28/20 20:00 NIV Bilevel 30 07/28/20 20:00 72 18 160/108 (125) 98 NIV Bilevel 30.00 07/28/20 19:55 35.6 70 20 160/108 (125) 99 NIV Bilevel 30.00 07/28/20 19:44 70 24 98 30.00 07/28/20 19:35 35.7 07/28/20 19:00 75 07/28/20 19:00 75 16 167/106 (126) 98 NIV Bilevel 30.00 07/28/20 18:00 73 10 171/110 (130) 96 NIV Bilevel 30.00 07/28/20 17:25 37.0 74 95 30 07/28/20 17:00 70 11 177/102 (127) 98 NIV Bilevel 30.00 07/28/20 16:00 NIV Bilevel 30 07/28/20 16:00 74 11 142/105 (117) 95 NIV Bilevel 30.00 07/28/20 15:39 36.6 78 23 151/85 (107) 97 NIV Bilevel 30.00 07/28/20 15:25 75 14 128/93 98 NIV Bilevel 07/28/20 13:09 37.0 95 27 120/30 (60) 84 Room Air I & O 07/29/20 07:00 Intake Total 365 ml Output Total 1745 ml Balance -1380 ml Height & Weight Height: 6'0.00" Weight: 322lbs. 1.0oz. 146.004308zp; 48.00 BMI Method:Stated General Appearance: No Apparent Distress, Obese, Other (wearing BiPAP) HEENT: Other (wearing BiPAP) Respiratory: Lungs Clear, Normal Breath Sounds, No Respiratory Distress, Other (wearing BiPAP) Cardiovascular: Regular Rate, Rhythm, No Murmur Capillary Refill: Less Than 3 Seconds Gastrointestinal: normal bowel sounds, non tender, soft Extremity: Pedal Edema, Other (right BKA, left hand third digit red and swollen with bandage in place) Neurologic/Psychiatric: Other (lethargic, uncooperative) Skin: Normal Color, Warm/Dry Results Lab Laboratory Tests 07/28/20 13:08 07/29/20 02:54 Assessment/Plan Assessment/Plan Acute on chronic respiratory failure with hypoxia -Currently on BiPAP -Trial to regular NC Person under investigation for COVID-19 -COVID is pending Sepsis Possible pneumonia -Currently on vanco and Zosyn NSTEMI Osteomyelitis of left finger SIRS+ with elevated WBC, tachycardia, and tachypnea COVID LEV negative, PCR pending Troponin elevated, trend - Cardiology following Vancomycin and Zosyn Scheduled for surgery this week as outpatient with Dr. Carcamo, Ortho 4 States Atrial fibrillation on Coumadin Continue Coumadin Lovenox T2DM Levemir Sliding scale insulin HTN BPH Continue home meds Morbid obesity Clinically significant CHELLE RUIZ DO Jul 29, 2020 04:37
[2020-07-29] MEDS: PIPERACILLIN/TAZO 4.5 GM/NS 100 ML IV SCH ×6 (05:07→20:02)
[2020-07-29] MEDS: CATHETER FLUSH 10 ML SYR IV SCH ×3 (05:07→20:02)
--- NOTE | 2020-07-29 07:04 | Diagnostic Imaging Report ---
INDICATION: Dyspnea. Comparison made with prior examination of 07/28/2020. FINDINGS: There is cardiomegaly. There has been previous medial sternotomy and prior bypass graft. Some minimal venous congestion. No pleural fusion or pneumothorax. Mediastinum is unremarkable. IMPRESSION: Cardiomegaly and mild central pulmonary venous congestion. Dictated by: Dictated on workstation # [id number]
--- NOTE | 2020-07-29 07:48 | Consultation-Cardiology ---
HPI-Cardiology Cardiology Consultation: Date of Consultation 07/29/20 Date of Admission 07-28-2020 Attending Physician Antoinette Tomlin MD Admitting Physician Ventura Costa MD Consulting Physician Luis Hamilton MD [id number] Hx Patient Social History Alcohol Use: Denies Use Recreational Drug Use: Yes Drug of Choice: past hx drug use. Former smoker/When Quit: Aug 07, 2005 2nd Hand Smoke Exposure: No Recent Foreign Travel: No Recent Infectious Disease Expo: No Hospitalization with Isolation: Denies Immunizations Up To Date Tetanus Booster (TDap): Unknown Date of Pneumonia Vaccine: May 02, 2018 Past Medical History PMH As described under Assessment. Family Medical History Family History: Cardiovascular disease 19 FATHER, Onset:Unknown FH: breast cancer G8 SISTER, Onset:50's - 60 FH: ovarian cancer 19 MOTHER, Onset:40's - 50 No Family History of: Cancer of mouth Allergies and Home Medications Allergies Coded Allergies: niacin (Unverified Allergy, Unknown, 06/26/10) rosuvastatin (Verified Allergy, Unknown, 04/20/07) fenofibrate (Unverified Adverse Reaction, Unknown, LIVER PROBLEMS, 01/23/15) Home Medications Allopurinol 100 Mg Tablet, 100 MG PO DAILY, (Reported) LAST FILLED 12-29-2019 #90/90 DAY SUPPLY Amitriptyline HCl 25 Mg Tablet, 25 MG PO HS, (Reported) LAST FILLED 12-29-2019 #90/90 DAY SUPPLY Amlodipine Besylate 10 Mg Tablet, 10 MG PO DAILY, (Reported) LAST FILLED 06-04-2020 #30/30 DAY SUPPLY Ascorbic Acid 500 Mg Tablet, 500 MG PO BID, (Reported) Aspirin 81 Mg Tablet.dr, 81 MG PO DAILY, (Reported) Calcium Carbonate/Vitamin D3 1 Each Tablet, 1 TAB PO DAILY, (Reported) Carvedilol 25 Mg Tablet, 25 MG PO BID, (Reported) Cholecalciferol (Vitamin D3) 50 Mcg Capsule, 50 MCG PO BID, (Reported) Clindamycin HCl 300 Mg Capsule, 300 MG PO QID, (Reported) FILLED 07-25-2020 #56/14 DAY SUPPLY Ferrous Sulfate 325 Mg Tablet, 325 MG PO Q48H, (Reported) Finasteride 5 Mg Tablet, 5 MG PO HS, (Reported) Folic Acid 1 Mg Tablet, 1 MG PO DAILY, (Reported) Furosemide 40 Mg Tablet, 40 MG PO BID, (Reported) LAST FILLED 06-19-2020 #60/30 DAY SUPPLY Gemfibrozil 600 Mg Tablet, 600 MG PO DAILY, (Reported) LAST FILLED 06-04-2020 #30/30 DAY SUPPLY Hydralazine HCl 100 Mg Tablet, 100 MG PO TID, (Reported) Insulin Aspart 100 Unit/1 Ml Susp, UNIT SQ SLIDING/SCALE, (Reported) Insulin Determir 1,000 Units/10 Ml Soln, 46 UNITS SC BID, (Reported) LAST FILLED 06-04-2020 #2 VIALS/21 DAY SUPPLY Ipratropium/Albuterol Sulfate 3 Ml Ampul.neb, 3 ML IH Q6H PRN for SHORTNESS OF BREATH, (Reported) Magnesium Oxide 400 Mg Tablet, 400 MG PO DAILY, (Reported) Meclizine HCl 25 Mg Tablet, 25 MG PO BID PRN for DIZZINESS, (Reported) [place]-3/Dha/Epa/Fish Oil 1 Each Capsule, 1,000 MG PO BID, (Reported) Ondansetron HCl 8 Mg Tablet, 8 MG PO Q8H PRN for NAUSEA/VOMITING-1ST LINE, (Reported) Potassium Chloride 20 Meq Tablet.er, 20 MEQ PO DAILY, (Reported) LAST FILLED 12-29-2019 #90/ DAY SUPPLY Tamsulosin HCl 0.4 Mg Cap, 0.4 MG PO HS, (Reported) LAST FILLED 11-02-2019 #90/90 DAY SUPPLY Venlafaxine HCl 150 Mg Cap.er.24h, 150 MG PO DAILY, (Reported) Vitamin E Acetate 400 Unit Capsule, 400 UNIT PO DAILY, (Reported) Warfarin Sodium 10 Mg Tablet, 10 MG PO Q48H, (Reported) ALTERNATES BETWEEN 7.5MG & 10MG Warfarin Sodium 7.5 Mg Tablet, 7.5 MG PO Q48H, (Reported) ALTERNATES BETWEEN 7.5MG & 10MG Physical Exam-Cardiology Physical Exam Vital Signs/I&O 07/29/20 07/29/20 07/29/20 07/29/20 20:00 20:00 21:00 21:20 Pulse 66 65 67 Resp 13 14 27 B/P (MAP) 145/85 (108) 149/83 (104) Pulse Ox 94 94 95 O2 Delivery NIV Bilevel NIV Bilevel NIV Bilevel O2 Flow Rate 40.00 40.00 40.00 FiO2 40 1207/29/20 07/29/20 07/30/20 22:00 23:00 23:44 00:00 Temp 36.2 Pulse 68 67 69 Resp 15 9 14 B/P (MAP) 142/84 (103) 139/80 (101) 144/82 (102) Pulse Ox 94 95 95 O2 Delivery NIV Bilevel NIV Bilevel NIV Bilevel O2 Flow Rate 40.00 40.00 40.00 07/30/20 07/30/20 07/30/20 07/30/20 01:00 01:00 02:00 02:01 Pulse 70 70 71 71 Resp 11 13 29 B/P (MAP) 129/68 (92) 102/65 (79) Pulse Ox 97 97 98 O2 Delivery NIV Bilevel NIV Bilevel O2 Flow Rate 40.00 40.00 30.00 07/30/20 07/30/20 07/30/20 07/30/20 02:04 03:00 03:20 04:00 Temp 36.4 Pulse 71 71 Resp 10 18 B/P (MAP) 145/88 (107) 147/79 (103) Pulse Ox 95 96 O2 Delivery NIV Bilevel NIV Bilevel NIV Bilevel NIV Bilevel O2 Flow Rate 30.00 30.00 30.00 30.00 07/30/20 07/30/20 07/30/20 05:00 06:00 06:41 Pulse 73 72 73 Resp 16 22 B/P (MAP) 149/88 (113) 149/83 (105) Pulse Ox 96 94 97 O2 Delivery NIV Bilevel NIV Bilevel O2 Flow Rate 30.00 30.00 30.00 07/30/20 00:00 Intake Total 1700 ml Output Total 400 ml Balance 1300 ml Capillary Refill : Less Than 3 Seconds Data Review Labs Laboratory Tests 07/29/20 12:19: Glucometer 114H 07/29/20 15:27: Glucometer 128H 07/29/20 20:03: Glucometer 164H 07/30/20 03:57: White Blood Count 5.9, Red Blood Count 2.97L, Hemoglobin 8.2L, Hematocrit 26L, Mean Corpuscular Volume 88, Mean Corpuscular Hemoglobin 28, Mean Corpuscular Hemoglobin Concent 31L, Red Cell Distribution Width 15.3H, Platelet Count 132, Mean Platelet Volume 10.5, Immature Granulocyte % (Auto) 0, Neutrophils (%) (Auto) 75, Lymphocytes (%) (Auto) 11L, Monocytes (%) (Auto) 11, Eosinophils (%) (Auto) 2, Basophils (%) (Auto) 1, Neutrophils # (Auto) 4.4, Lymphocytes # (Auto) 0.7L, Monocytes # (Auto) 0.6, Eosinophils # (Auto) 0.1, Basophils # (Auto) 0.0, Immature Granulocyte # (Auto) 0.0, Prothrombin Time 19.6H, INR Comment 1.6H, Sodium Level 137, Potassium Level 3.9, Chloride Level 105, Carbon Dioxide Level 23, Anion Gap 9, Blood Urea Nitrogen 57H, Creatinine 2.52#H, Estimat Glomerular Filtration Rate 26, BUN/Creatinine Ratio 23, Glucose Level 118H, Calcium Level 8.5, Phosphorus Level 4.3, Magnesium Level 2.7H Microbiology 07/28/20 Blood Culture - Preliminary, Resulted No growth Radiology NAME: ELMO GARCIA [facility] REC#: [id number] PT STATUS: ADM IN : 1950 PHYSICIAN: ANTOINETTE TOMLIN MD ADMIT DATE: 07/28/20/ICU Signed Date of Exam:07/29/20 CHEST 1 VIEW, AP/PA ONLY INDICATION: Dyspnea. Comparison made with prior examination of 07/28/2020. FINDINGS: There is cardiomegaly. There has been previous medial sternotomy and prior bypass graft. Some minimal venous congestion. No pleural fusion or pneumothorax. Mediastinum is unremarkable. IMPRESSION: Cardiomegaly and mild central pulmonary venous congestion. Dictated by: Dictated on workstation # [id number] Dict: 07/29/20 0507 Trans: 07/29/20 0711 CV [id number] Interpreted by: LUIS FELIPE HER MD Electronically signed by: LUIS FELIPE HER MD 07/29/20 0711 A/P-Cardiology Assessment/Admission Diagnosis Sepsis Cellulitis Mildly elevated troponin H/O Peripheral arterial disease, history of right BKA, had progressive wound that resulted in the amputation done in November 2018, followed by BKA. Now having nonhealing wounds to LLE at anterior felton and toes. Underwent toe amputation yesterday morning. Peripheral angiogram done yesterday revealing severe multisegment stenosis of the left SFA, multiple balloon angioplasty then deployment of Supera 6.5 x 100 in the proximal SFA. The lesions at the mid and distal SFA responded to balloon angioplasty with mild recoiling. Total occlusion of the left anterior tibial artery, patent peroneal and posterior tibial, collateral filling the distal tibial. Mild to moderate disease on the right leg. Atherosclerotic plaques in the abdominal aorta and bifurcation with heavily tortuous iliac arteries Acute on chronic renal insufficiency Coronary artery disease, history of multiple interventions, total of 8 stents, had bypass surgery using single vessel after failed multiple attempts for intervention done at [facility] in 2017. 2D echo done October 2019 revealed normal LV size and normal PA pressure, followed by Dr. Ponce Hypertension Hyperlipidemia, intolerant to multiple statin COPD, Obstructive sleep apnea - CPAP tx Pulmonary hypertension. Diabetes mellitus Obesity Carotid stenosis, totally occluded left ICA, less than 40 percent on the right side Vertigo, dizziness, chronic. Medical noncompliance. Clinical Quality Measures DVT/VTE Risk/Contraindication: Risk Factor Score Per Nursin RFS Level Per Nursing on Admit: 4+=Very High TISH ARCEO Jul 29, 2020 07:48
[2020-07-29] MEDS ORDERED: ASPIRIN 325 MG (5 GR) TABLET PO SCH (09:00)
[2020-07-29] MEDS: CARVEDILOL 12.5 MG (COREG) TABLET PO SCH ×2 (09:06→18:04)
[2020-07-29] MEDS: amLODIPine 10 MG (NORVASC) TAB PO SCH (09:06)
[2020-07-29] MEDS: hydrALAZINE (APRESOLINE) 25 MG TAB PO SCH ×3 (09:07→21:59)
[2020-07-29] MEDS: ENOXAPARIN 300 MG/3 ML (LOVENOX) MULTI-DOSE VIAL SQ SCH ×2 (09:07→20:02)
--- NOTE | 2020-07-29 09:44 | Progress Note - Hospitalist ---
Subjective HPI/CC On Admission Date Seen by Provider: Jul 29, 2020 Time Seen by Provider: 09:39 Bin Newberry is a 69 year old male with PMH HTN, T2DM on insulin, CAD s/p CABG, PVD s/p BKA, atrial fibrillation on coumadin, BPH, who presented with shortness of breath. He resides at a group home. He was reportedly found to have a low oxygen saturation. EMS was called and placed him on CPAP. He was placed on BiPAP in the ER. Upon my examination, he is wearing BiPAP. He will awaken for brief periods, but is uncooperative with my exam. Subjective/Events-last exam Pt reports still somewhat SOB but breathing much better than yesterday. Doing well on BiPAP. Offered trial off for breakfast but he declined, will try around lunch time. Per RN did well on 4lpm overnight but subjectively felt worse and asked for BiPAP to be placed. Focused Exam Lactate Level 07/28/20 13:19: Lactic Acid Level 2.29*H 07/28/20 16:05: Lactic Acid Level 0.80 Objective Exam Vital Signs Vital Signs Date Time Temp Pulse Resp B/P (MAP) Pulse Ox O2 Delivery O2 Flow Rate FiO2 07/29/20 07:30 37.1 07/29/20 06:56 67 26 97 40.00 07/29/20 06:00 134/77 (96) NIV Bilevel 07/28/20 20:00 30 Capillary Refill : Less Than 3 Seconds General Appearance: No Apparent Distress, Chronically ill, Obese Respiratory: Decreased Breath Sounds; No Wheezing; Other (on BiPAP) Cardiovascular: Regular Rate, Rhythm, No Murmur Gastrointestinal: Normal Bowel Sounds, Non Tender, Soft Extremity: Other (left third digit with significant erythema; s/p right BKA) Neurologic/Psychiatric: Alert, Oriented x3, Normal Mood/Affect Results/Procedures Lab Laboratory Tests 07/28/20 13:08 07/29/20 02:54 Patient resulted labs reviewed. Imaging: Reviewed Imaging Report Assessment/Plan Assessment and Plan Assess & Plan/Chief Complaint Acute on chronic respiratory failure with hypoxia Person under investigation for COVID-19 Sepsis Possible pneumonia NSTEMI Osteomyelitis of left finger Continue abx, Vanc and Zosyn COVID LEV negative, PCR pending BNP elevated, responded well to Lasix Troponin elevated, trend Consult Cardiology Procalcitonin 0.382 Scheduled for surgery this week as outpatient with Dr. Carcamo, Ortho 4 [facility], will likely be delayed Continue on BiPAP for now, will attempt trial off later Pulm consulted, appreciate recs Atrial fibrillation on Coumadin INR 1.9 this AM Continue Coumadin Cover with Lovenox T2DM Levemir 50 units BID Sliding scale insulin C HTN BPH Continue home meds Morbid obesity Clinically significant, no acute management needs DVT ppx: lovenox as above Diagnosis/Problems Diagnosis/Problems (1) Person under investigation for COVID-19 Status: Acute (2) PNA (pneumonia) Status: Acute Qualifiers: Pneumonia type: due to unspecified organism (3) NSTEMI (non-ST elevation myocardial infarction) Status: Acute (4) Sepsis Status: Acute (5) CHF (congestive heart failure) Status: Acute (6) Morbid obesity Status: Chronic (7) Finger osteomyelitis, left Status: Acute (8) Respiratory failure Status: Acute (9) Diabetes mellitus, insulin dependent (IDDM), uncontrolled Status: Acute (10) TREE (obstructive sleep apnea) Status: Chronic (11) Debility (12) Renal insufficiency Status: Acute (13) CAD (coronary artery disease) Status: Chronic Clinical Quality Measures DVT/VTE Risk/Contraindication: Risk Factor Score Per Nursin RFS Level Per Nursing on Admit: 4+=Very High ANTONIO MICHAELS MD Jul 29, 2020 09:44
--- NOTE | 2020-07-29 12:03 | Physical Therapy Evaluation ---
PT Evaluation-General Medical Diagnosis Admission Date Jul 28, 2020 at 14:09 Medical Diagnosis: respiratory failure/sepsis Onset Date: Jul 28, 2020 Therapy Diagnosis Therapy Diagnosis: debility/weakness Height/Weight Height (Feet): 6 Height (Inches): 0.00 Weight (Pounds): 322 Weight (Ounces): 1.0 Precautions Precautions/Isolations: Fall Prevention, Standard Precautions Referral Physician: Madi Reason for Referral: Evaluation/Treatment Medical History Pertinent Medical History: Arthritis, CABG, CAD, COPD, DM, HTN, [place], Neuropathy Current History EMS from [place] secondary to decreased SAO2 Reviewed History: Yes Social History Home: Long Term Prior Prior Level of Function SCALE: Activities may be completed with or without assistive devices. 9-Ulsbtrdvye-ekmpnrr completes the activity by him/herself with no assistance from a helper. 5-Set-up or Clean-up Assistance-helper sets up or cleans up; patient completes activity. Cabins assists only prior to or following the activity. 4-Supervision or Touching Assistance-helper provides verbal cues and/or touch ing/steadying and/or contact guard assistance as patient completes activity. Assistance may be provided throughout the activity or intermittently. 3-Partial/Moderate Assistance-helper does LESS THAN HALF the effort. Cabins lifts, holds or supports trunk or limbs, but provides less than half the effort. 2-Substantial/Maximal Assistance-helper does MORE THAN HALF the effort. Cabins lifts or holds trunk or limbs and provides more than half the effort. 4-Mxibnaxyi-hiyzal does ALL the effort. Patient does none of the effort to complete the activity. Or, the assistance of 2 or more helpers is required for the patient to complete the activity. If activity was not attempted, code reason: 7-Patient Refused. 9-Not Applicable-not attempted and the patient did not perform the activity before the current illness, exacerbation or injury. 10-Not Attempted due to Environmental Limitations-(lack of equipment, weather restraints, etc.). 88-Not Attempted due to Medical Conditions or Safety Concerns. Bed Mobility: 3 Transfers (B,C,W/C): 3 Gait: 9 Stairs: 9 Wheelchair Mobility: 4 Indoor Mobility (Ambulation): Not [place] Stairs: Not App[place]be Prior Devices Use: Manual wheelchair PT Evaluation-Current Subjective Patient reluctantly agrees to PT. Objective Patient Orientation: Normal For Age Attachments: Oxygen (Bipap), Bergeron Catheter, IV ROM/Strength ROM Lower Extremities right BKA/left LE WFL Strength Lower Extremities left LE 3/5 grossly Integumentary/Posture Integumentary refer to nursing notes Bladder Incontinence: Bergeron Cath Posture WFL Neuromuscular (Tone, Coordination, Reflexes) grossly intact Sensory Vision: Functional Hearing: Functional Transfers Roll Left to Right (QC): 2 Sit to Lying (QC): 2 Lying to Sitting/Side of Bed(Q: 2 bed in Trendelenburg when patient returning to supine from sitting EOB. Gait Does the Patient Walk?: No and Walking Goal NOT indicated Balance Sitting Static: Fair Sitting Dynamic: Fair Assessment/Needs 69 y.o. male, will be seen short term by skilled PT to address functional strength and mobility. Patient is nonambulatory PLOF and utilized w/c at [facility] for mobility. Rehab Potential: Guarded PT Skilled Nursing Goals Credit Collections Specialist Goals PT Credit Collections Specialist Goals Time Frame: Aug 10, 2020 Roll Left & Right (QC): 3 Sit to Lying (QC): 3 Lying-Sitting on Side/Bed(QC): 3 Sit to Stand (QC): 3 Chair/Dxg-ra-Arcrf Xfer(QC): 3 PT Plan Problem List Problem List: Activity Tolerance, Functional Strength, Safety, Balance, Transfer, Bed Mobility Treatment/Plan Treatment Plan: Continue Plan of Care Treatment Plan: Bed Mobility, Education, Functional Activity Farshad, Functional Strength, Safety, Therapeutic Exercise, Transfers Treatment Duration: Aug 10, 2020 Frequency: 6 times per week Estimated Hrs Per Day: .25 hour per day Patient and/or Family Agrees t: Yes Time/GCodes Time In: 1030 Time Out: 1046 Total Billed Treatment Time: 16 Total Billed Treatment 1 visit [facility] 16 min ROSELYN FREEMAN PT Jul 29, 2020 12:03
--- NOTE | 2020-07-29 12:18 | Consultation-Cardiology ---
HPI-Cardiology Cardiology Consultation: Date of Consultation 07/29/20 Time Seen by a Provider: 09:20 Date of Admission Attending Physician Kalie Fay MD Admitting Physician Ventura Costa MD Consulting Physician PIERCE JOHN MD, MA, FACP, FACC, FSCAI, CCDS HPI: Chief Complaint: CC: Shortness of breath HPI Bin Newberry is a 69 with multiple cardia risk factors and a cardiac history that includes CAD s/p CABG, PVD s/p R BKA, atrial fibrillation on coumadin, BPH, who presented with shortness of breath. He resides at a halfway. He was reportedly found to have a low oxygen saturation. EMS was called and placed him on CPAP. He was placed on BiPAP in the ER. He does not currently report shortness of breath. Is on BiPAP. Denies palp or syncope or cp. Notes gen weakness and tiredness Review of Systems-Cardiology Review of Systems Constitutional: malaise, tiredness Eyes: No vision change Ears/Nose/Throat: No ear discharge, No nasal drainage, No recent hearing loss Respiratory: As described under HPI Cardiovascular: As described under HPI Gastrointestinal: No diarrhea, No nausea, No vomiting Genitourinary: No dysuria, No hematuria Musculoskeletal: No back pain (chronic) Skin: No rash, No ulcerations Psychiatric/Neurological: No seizure, No focal weakness, No syncope Hematologic: No bleeding abnormalities APS-Dbqvvc-Vbuwal Hx Patient Social History Alcohol Use: Denies Use Recreational Drug Use: Yes Drug of Choice: past hx drug use. Former smoker/When Quit: Aug 07, 2005 2nd Hand Smoke Exposure: No Recent Foreign Travel: No Recent Infectious Disease Expo: No Hospitalization with Isolation: Denies Immunizations Up To Date Tetanus Booster (TDap): Unknown Date of Pneumonia Vaccine: May 02, 2018 Past Medical History PMH As described under Assessment. Family Medical History Family History: Cardiovascular disease 19 FATHER, Onset:Unknown FH: breast cancer G8 SISTER, Onset:50's - 60 FH: ovarian cancer 19 MOTHER, Onset:40's - 50 No Family History of: Cancer of mouth Allergies and Home Medications Allergies Coded Allergies: niacin (Unverified Allergy, Unknown, 06/26/10) rosuvastatin (Verified Allergy, Unknown, 04/20/07) fenofibrate (Unverified Adverse Reaction, Unknown, LIVER PROBLEMS, 01/23/15) Home Medications ALPRAZolam 0.25 Mg Tablet, 0.25 MG PO Q8H PRN for ANXIETY Prescribed by: ANTONIO MICHAELS on 01/15/20 1024 Allopurinol 100 Mg Tablet, 100 MG PO DAILY, (Reported) Amitriptyline HCl 25 Mg Tablet, 25 MG PO HS, (Reported) Amlodipine Besylate 10 Mg Tablet, 10 MG PO DAILY, (Reported) Ascorbic Acid 500 Mg Tablet, 500 MG PO BID, (Reported) Aspirin 81 Mg Tablet.dr, 81 MG PO DAILY, (Reported) Calcium Carbonate/Vitamin D3 1 Each Tablet, 1 TAB PO DAILY, (Reported) Carvedilol 25 Mg Tablet, 25 MG PO BID, (Reported) Cholecalciferol (Vitamin D3) 50 Mcg Capsule, 50 MCG PO BID, (Reported) Ferrous Sulfate 325 Mg Tablet, 325 MG PO Q48H, (Reported) Finasteride 5 Mg Tablet, 5 MG PO HS, (Reported) Folic Acid 1 Mg Tablet, 1 MG PO DAILY, (Reported) Furosemide 40 Mg Tablet, 40 MG PO BID, (Reported) Gemfibrozil 600 Mg Tablet, 600 MG PO DAILY, (Reported) Hydralazine HCl 100 Mg Tablet, 100 MG PO TID, (Reported) Insulin Aspart 100 Unit/1 Ml Susp, 18 UNIT SQ TIDAC, (Reported) LAST FILLED 09-12-2019 # 3 VIALS/55 DAY SUPPLY Insulin Determir 1,000 Units/10 Ml Soln, 67 UNITS SC BID, (Reported) LAST FILLED 09-25-2019 #3 VIALS/22 DAY SUPPLY Ipratropium/Albuterol Sulfate 3 Ml Ampul.neb, 3 ML IH Q6H PRN for SHORTNESS OF BREATH, (Reported) Magnesium Oxide 400 Mg Tablet, 400 MG PO DAILY, (Reported) Meclizine HCl 25 Mg Tablet, 25 MG PO BID PRN for DIZZINESS, (Reported) Minocycline HCl 100 Mg Tablet, 100 MG PO BID Prescribed by: PRIMO FRANCOIS on 02/21/20 [address] [place]-3/Dha/Epa/Fish Oil 1 Each Capsule, 1,000 MG PO BID, (Reported) Ondansetron HCl 8 Mg Tablet, 8 MG PO Q8H PRN for NAUSEA/VOMITING-1ST LINE, (Reported) Potassium Chloride 20 Meq Tablet.er, 20 MEQ PO DAILY, (Reported) Tamsulosin HCl 0.4 Mg Cap, 0.4 MG PO HS, (Reported) Venlafaxine HCl 150 Mg Cap.er.24h, 150 MG PO DAILY, (Reported) Vitamin E Acetate 400 Unit Capsule, 400 UNIT PO DAILY, (Reported) Warfarin Sodium 10 Mg Tablet, 10 MG PO Q48H, (Reported) ALTERNATES BETWEEN 5MG & 10MG Warfarin Sodium 5 Mg Tablet, 5 MG PO Q48H, (Reported) ALTERNATES 10MG & 5MG Patient Home Medication List Home Medication List Reviewed: Yes Physical Exam-Cardiology Physical Exam Vital Signs/I&O 07/29/20 07/29/20 07/29/20 07/29/20 00:34 01:00 01:00 02:00 Pulse 69 69 66 Resp 20 12 B/P (MAP) 143/89 (107) 134/78 (96) Pulse Ox 91 97 O2 Delivery NIV Bilevel NIV Bilevel NIV Bilevel O2 Flow Rate 30.00 30.00 30.00 07/29/20 07/29/20 07/29/20 07/29/20 02:36 03:00 04:00 05:00 Temp 36.7 Pulse 65 63 59 Resp 24 14 14 B/P (MAP) 133/78 (96) 131/79 (96) Pulse Ox 94 96 92 O2 Delivery NIV Bilevel NIV Bilevel NIV Bilevel O2 Flow Rate 30.00 30.00 30.00 30.00 07/29/20 07/29/20 07/29/20 07/29/20 05:00 06:00 06:56 07:30 Temp 37.1 Pulse 64 64 67 Resp 14 21 26 B/P (MAP) 132/83 (99) 134/77 (96) Pulse Ox 94 97 97 O2 Delivery NIV Bilevel NIV Bilevel O2 Flow Rate 30.00 30.00 40.00 07/29/20 07/29/20 09:00 11:43 Pulse 65 Resp 23 Pulse Ox 95 O2 Delivery NIV Bilevel O2 Flow Rate 40.00 FiO2 30 07/29/20 00:00 Intake Total 290 ml Output Total 1495 ml Balance -1205 ml Capillary Refill : Less Than 3 Seconds Constitutional: AAO x 3, well-developed, well-nourished HEENT: EOMI, hearing is well preserved; No xanthelasmas are seen Neck: carotid pulses are 2 + bilaterally, with good upstrokes Respiratory: No accessory muscle use; other (fair air entry, diminshed at the bases) Cardiovascular: regular rate-rhythm, S1 and S2, systolic murmur (soft ARACELY at card base) Gastrointestinal: No tender; soft; No guarding, No rebound; audible bowel s ounds Extremities: other (R BKA); No clubbing, No cyanosis, No significant edema Neurologic/Psychiatric: other (seems to be able to move all limbs; not coop erative with exam) Skin: No rash on exposed areas, No ulcerations on exposed areas Data Review Labs Laboratory Tests 07/28/20 13:00: Prothrombin Time 21.0H, INR Comment 1.8H, Procalcitonin 0.30H 07/28/20 13:08: White Blood Count 15.5H, Red Blood Count 3.74L, Hemoglobin 10.4L, Hematocrit 32L , Mean Corpuscular Volume 87, Mean Corpuscular Hemoglobin 28, Mean Corpuscular Hemoglobin Concent 32, Red Cell Distribution Width 15.0H, Platelet Count 177, Mean Platelet Volume 11.3, Immature Granulocyte % (Auto) 1, Neutrophils (%) (Auto) 81H, Lymphocytes (%) (Auto) 10L, Monocytes (%) (Auto) 7, Eosinophils (%) (Auto) 0, Basophils (%) (Auto) 0, Neutrophils # (Auto) 12.7H, Lymphocytes # (Auto) 1.6, Monocytes # (Auto) 1.2H, Eosinophils # (Auto) 0.0, Basophils # (Auto) 0.0, Immature Granulocyte # (Auto) 0.1, Neutrophils % (Manual) 75, Lymphocytes % (Manual) 13, Monocytes % (Manual) 10, Basophils % (Manual) 1, Band Neutrophils 1, Anisocytosis SLIGHT, D-Dimer 1.02H, Blood Gas Puncture Site RGHT RAD, Blood Gas Patient Temperature 99.7, Arterial Blood pH 7.35L, Arterial Blood Partial Pressure CO2 43, Arterial Blood Partial Pressure O2 210H, Arterial Blood HCO3 23, Arterial Blood Total CO2 23.9, Arterial Blood Oxygen Saturation 98, Arterial Blood Base Excess -2.0, Will Test POS, Blood Gas Ventilator Setting NO, Blood Gas Inspired Oxygen BIPAP, Sodium Level 135, Potassium Level 4.4, Chloride Level 102, Carbon Dioxide Level 20L, Anion Gap 13, Blood Urea Nitrogen 47H, Creatinine 2.19H, Estimat Glomerular Filtration Rate 30, BUN/Creatinine Ratio 21, Glucose Level 269H, Calcium Level 9.3, Corrected Calcium 9.3, Total Bilirubin 1.0, Aspartate Amino Transf (AST/SGOT) 19, Alanine Aminotransferase (ALT/SGPT) 24, Alkaline Phosphatase 89, Troponin I 0.278H, B-Type Natriuretic Peptide 1257.4H, Total Protein 7.7, Albumin 4.0 07/28/20 13:10: Coronavirus 2019 (LEV) Negative 07/28/20 13:19: Lactic Acid Level 2.29*H 07/28/20 16:05: Lactic Acid Level 0.80, Troponin I 0.343*H 07/28/20 17:34: Glucometer 241H 07/28/20 20:04: Glucometer 186H 07/29/20 02:54: Troponin I 0.382*H, White Blood Count 6.3, Red Blood Count 3.17L, Hemoglobin 8.6L, Hematocrit 28L, Mean Corpuscular Volume 87, Mean Corpuscular Hemoglobin 27, Mean Corpuscular Hemoglobin Concent 31L, Red Cell Distribution Width 15.0H, Platelet Count 136, Mean Platelet Volume 11.2, Immature Granulocyte % (Auto) 0, Neutrophils (%) (Auto) 76H, Lymphocytes (%) (Auto) 12, Monocytes (%) (Auto) 9, Eosinophils (%) (Auto) 2, Basophils (%) (Auto) 0, Neutrophils # (Auto) 4.8, Lymphocytes # (Auto) 0.7L, Monocytes # (Auto) 0.6, Eosinophils # (Auto) 0.2, Basophils # (Auto) 0.0, Immature Granulocyte # (Auto) 0.0, Prothrombin Time 22.3H, INR Comment 1.9H, Sodium Level 138, Potassium Level 3.9, Chloride Level 105, Carbon Dioxide Level 23, Anion Gap 10, Blood Urea Nitrogen 50H, Creatinine 2.08H, Estimat Glomerular Filtration Rate 32, BUN/Creatinine Ratio 24, Glucose Level 152H, Calcium Level 8.8, Phosphorus Level 4.3, Magnesium Level 2.3 Laboratory Tests 07/28/20 13:08 07/29/20 02:54 A/P-Cardiology Assessment/Admission Diagnosis Sepsis H/o osteomyelitis Acute (MARGY 2) on chronic (CKD 4) renal failure Mildly elevated troponin, probably type 2 ID due to renal failure and sepsis H/O Peripheral arterial disease, history of right BKA Coronary artery disease, history of multiple interventions, total of 8 stents, had bypass surgery using single vessel after failed multiple attempts for intervention done at [facility] in 2017. H/o echo October 2019 (Dr Terry): LVEF 50-55% and normal PA pressure Hypertension Hyperlipidemia, intolerant to multiple statin COPD Obesity and TREE - CPAP tx Diabetes mellitus II Carotid stenosis, totally occluded left ICA, less than 40 percent on the right side Medical noncompliance. Discussion and Recomendations * Reduce ASA to 81 daily * Continue warfarin. Target INR 2-3 * D/c enoxaparin when INR 2 or more * Continue bb * Monitor labs Clinical Quality Measures DVT/VTE Risk/Contraindication: Risk Factor Score Per Nursin RFS Level Per Nursing on Admit: 4+=Very High PIERCE JOHN MD FACP [facility] Jul 29, 2020 12:18
[2020-07-29] MEDS: VANCOMYCIN 2,500 MG/NS 500 ML IVPB IV SCH ×2 (14:33)
[2020-07-29] MEDS ORDERED: CLIN300C12 PO (15:38)
[2020-07-29] MEDS ORDERED: WARF7.5T3 PO (15:38)
[2020-07-29] MEDS ORDERED: ONDA8TAB15 PO (15:38)
[2020-07-29] MEDS: TAMSULOSIN 0.4 MG (FLOMAX) CAP PO SCH (18:04)
[2020-07-29] MEDS: warFARin 5 MG (COUMADIN) TAB PO SCH (18:04)
[2020-07-29 21:20] VITALS: BP 149/83
[2020-07-30 02:01] VITALS: BP 102/65
[2020-07-30] MEDS: RT-ALBUTEROL INHALER HFA (VENTOLIN HFA) 18 GM IH SCH ×15 (02:01→21:25)
[2020-07-30 04:11] LABS: BASOPHILS % (AUTO) 1 % (0-10); EOSINOPHILS # (AUTO) 0.1 10^3/uL (0.0-0.3); EOSINOPHILS % (AUTO) 2 % (0-10); HEMATOCRIT 26 % (40-54); HEMOGLOBIN 8.2 g/dL (13.3-17.7); LYMPHOCYTES # (AUTO) 0.7 10^3/uL (1.0-4.0); LYMPHOCYTES % (AUTO) 11 % (12-44); MEAN CORPUSCULAR HEMOGLOBIN 28 pg (25-34); MEAN CORPUSCULAR HGB CONC 31 g/dL (32-36); MEAN CORPUSCULAR VOLUME 88 fL (80-99); MEAN PLATELET VOLUME 10.5 fL (9.0-12.2); MONOCYTES # (AUTO) 0.6 10^3/uL (0.0-1.0); MONOCYTES % (AUTO) 11 % (0-12); NEUTROPHILS # (AUTO) 4.4 10^3/uL (1.8-7.8); NEUTROPHILS % (AUTO) 75 % (42-75); PLATELET COUNT 132 10^3/uL (130-400); WHITE BLOOD COUNT 5.9 10^3/uL (4.3-11.0)
[2020-07-30 04:21] LABS: INR 1.6 (0.8-1.4); PROTHROMBIN TIME PATIENT 19.6 SEC (12.2-14.7)
[2020-07-30 04:28] LABS: CALCIUM 8.5 MG/DL (8.5-10.1); CREATININE SERUM 2.52 MG/DL (0.60-1.30); MAGNESIUM 2.7 MG/DL (1.6-2.4); PHOSPHORUS 4.3 MG/DL (2.3-4.7); POTASSIUM 3.9 MMOL/L (3.6-5.0)
[2020-07-30] MEDS: CATHETER FLUSH 10 ML SYR IV SCH ×3 (05:01→21:03)
[2020-07-30] MEDS: PIPERACILLIN/TAZO 4.5 GM/NS 100 ML IV SCH ×6 (05:01→21:23)
[2020-07-30] MEDS: hydrALAZINE (APRESOLINE) 25 MG TAB PO SCH ×3 (05:01→21:03)
--- NOTE | 2020-07-30 05:50 | Pulmonary Progress Note ---
Subjective Time Seen by a Provider: 05:49 Subjective/Events-last exam No complications noted. Sepsis Event Evaluation Height, Weight, BMI Height: 6'0.00" Weight: 322lbs. 1.0oz. 146.691216yd; 48.00 BMI Method:Stated Focused Exam Lactate Level 07/28/20 13:19: Lactic Acid Level 2.29*H 07/28/20 16:05: Lactic Acid Level 0.80 Exam Exam Vital Signs Date Time Temp Pulse Resp B/P (MAP) Pulse Ox O2 Delivery O2 Flow Rate FiO2 07/30/20 05:00 73 149/88 (113) 96 NIV Bilevel 30.00 07/30/20 04:00 71 18 147/79 (103) 96 NIV Bilevel 30.00 07/30/20 03:20 36.4 NIV Bilevel 30.00 07/30/20 03:00 71 10 145/88 (107) 95 NIV Bilevel 30.00 07/30/20 02:04 NIV Bilevel 30.00 07/30/20 02:01 71 29 98 30.00 07/30/20 02:00 71 13 102/65 (79) 97 NIV Bilevel 40.00 07/30/20 01:00 70 11 129/68 (92) 97 NIV Bilevel 40.00 07/30/20 01:00 70 07/30/20 00:00 69 14 144/82 (102) 95 NIV Bilevel 40.00 07/29/20 23:44 36.2 07/29/20 23:00 67 9 139/80 (101) 95 NIV Bilevel 40.00 07/29/20 22:00 68 15 142/84 (103) 94 NIV Bilevel 40.00 07/29/20 21:20 67 27 95 40.00 07/29/20 21:00 65 14 149/83 (104) 94 NIV Bilevel 40.00 07/29/20 20:00 NIV Bilevel 40 07/29/20 20:00 66 13 145/85 (108) 94 NIV Bilevel 40.00 07/29/20 19:35 36.4 67 18 133/76 (95) 95 NIV Bilevel 40.00 07/29/20 19:15 67 21 95 40.00 07/29/20 19:00 65 07/29/20 19:00 65 13 144/87 (109) 96 NIV Bilevel 40.00 07/29/20 18:00 NIV Bilevel 30.00 07/29/20 16:00 69 14 129/78 (95) 92 Nasal Cannula 4.00 07/29/20 15:27 36.0 07/29/20 15:15 92 Nasal Cannula 4.00 07/29/20 13:00 94 Nasal Cannula 4.00 07/29/20 12:56 69 07/29/20 12:00 61 16 105/48 (67) 97 NIV Bilevel 30.00 07/29/20 12:00 37.0 07/29/20 11:43 65 23 95 40.00 07/29/20 09:00 NIV Bilevel 30 07/29/20 08:00 68 15 140/82 (101) 97 NIV Bilevel 30.00 07/29/20 07:30 37.1 07/29/20 06:56 67 26 97 40.00 07/29/20 06:37 69 07/29/20 06:00 64 21 134/77 (96) 97 NIV Bilevel 30.00 I & O 07/30/20 07:00 Intake Total 2510 ml Output Total 1050 ml Balance 1460 ml Height & Weight Height: 6'0.00" Weight: 322lbs. 1.0oz. 146.141444uq; 48.00 BMI Method:Stated General Appearance: No Apparent Distress, Chronically ill, Obese HEENT: Other (wearing BiPAP) Respiratory: Decreased Breath Sounds; No Wheezing; Other (on BiPAP) Cardiovascular: Regular Rate, Rhythm, No Murmur Capillary Refill: Less Than 3 Seconds Gastrointestinal: normal bowel sounds, non tender, soft Extremity: Other (left third digit with significant erythema; s/p right BKA) Neurologic/Psychiatric: Alert, Oriented x3, Normal Mood/Affect Skin: Normal Color, Warm/Dry Results Lab Laboratory Tests 07/28/20 13:08 07/29/20 02:54 07/30/20 03:57 Assessment/Plan Assessment/Plan Acute on chronic respiratory failure with hypoxia -Currently on BiPAP at 30 % -regular NC 4liter Person under investigation for COVID-19 -COVID is negative Sepsis Possible pneumonia -Currently on vanco and Zosyn -MRSA swab not done NSTEMI -Cardiolgy following Osteomyelitis of left finger SIRS+ with elevated WBC, tachycardia, and tachypnea COVID LEV negative, PCR pending Troponin elevated, trend - Cardiology following Vancomycin and Zosyn Scheduled for surgery this week as outpatient with Dr. Carcamo, Ortho 4 States Atrial fibrillation on Coumadin Continue Coumadin Lovenox for bridge T2DM Levemir Sliding scale insulin HTN BPH Continue home meds Morbid obesity Clinically significant CHELLE RUIZ DO Jul 30, 2020 05:50
[2020-07-30] MEDS ORDERED: LACTATED RINGERS 1,000 ML IV SCH (06:00)
[2020-07-30 06:41] VITALS: BP 149/82
--- NOTE | 2020-07-30 08:19 | Diagnostic Imaging Report ---
INDICATION: Dyspnea. TECHNIQUE: Single view chest 3:09 AM. CORRELATION STUDY: 07/29/2020 FINDINGS: Poststernotomy and coronary bypass changes. Coronary artery stent over the left heart border. Heart size and mediastinum are enlarged and prominent, stable. Vasculature appears less congested. Lung [place] overall relatively clear. IMPRESSION: 1. Poststernotomy changes. Unchanged cardiac enlargement without evidence of overt failure. Vasculature overall appears less congested from prior. Dictated by: Dictated on workstation # [id number]
[2020-07-30] MEDS: amLODIPine 10 MG (NORVASC) TAB PO SCH (08:43)
[2020-07-30] MEDS: ASPIRIN 81 MG CHEW (CHILDREN'S ASA) PO SCH (08:43)
[2020-07-30] MEDS: CARVEDILOL 12.5 MG (COREG) TABLET PO SCH ×2 (08:43→17:58)
[2020-07-30] MEDS: ENOXAPARIN 300 MG/3 ML (LOVENOX) MULTI-DOSE VIAL SQ SCH ×2 (08:44→21:01)
--- NOTE | 2020-07-30 09:33 | Progress Note - Hospitalist ---
Subjective HPI/CC On Admission Date Seen by Provider: Jul 30, 2020 Time Seen by Provider: 09:32 Bin Newberry is a 69 year old male with PMH HTN, T2DM on insulin, CAD s/p CABG, PVD s/p BKA, atrial fibrillation on coumadin, BPH, who presented with shortness of breath. He resides at a care home. He was reportedly found to have a low oxygen saturation. EMS was called and placed him on CPAP. He was placed on BiPAP in the ER. Upon my examination, he is wearing BiPAP. He will awaken for brief periods, but is uncooperative with my exam. Subjective/Events-last exam Pt reports doing better today. No complaints. Still on BiPAP but RN states he did very well off of it yesterday. Focused Exam Lactate Level 07/28/20 13:19: Lactic Acid Level 2.29*H 07/28/20 16:05: Lactic Acid Level 0.80 Objective Exam Vital Signs Vital Signs Date Time Temp Pulse Resp B/P (MAP) Pulse Ox O2 Delivery O2 Flow Rate FiO2 07/30/20 12:35 72 07/30/20 11:16 36.6 22 164/80 (108) 97 Nasal Cannula 4.00 07/30/20 09:00 30 Capillary Refill : Less Than 3 Seconds General Appearance: No Apparent Distress, Chronically ill, Obese Respiratory: No Accessory Muscle Use, Decreased Breath Sounds (auscultation limited by body habitus); No Rhonci, No Wheezing; Other (on BiPAP) Cardiovascular: Regular Rate, Rhythm, No Murmur Gastrointestinal: Normal Bowel Sounds, Non Tender, Soft Extremity: Other (s/p BKA on right) Neurologic/Psychiatric: Alert, Oriented x3 Results/Procedures Lab Laboratory Tests 07/30/20 03:57 Patient resulted labs reviewed. Imaging: Reviewed Imaging Report Assessment/Plan Assessment and Plan Assess & Plan/Chief Complaint Acute on chronic respiratory failure with hypoxia Person under investigation for COVID-19 Sepsis Possible pneumonia NSTEMI Osteomyelitis of left finger Continue abx, Vanc and Zosyn COVID LEV negative, PCR negative BNP elevated, responded well to Lasix Troponin elevated, trend Consult Cardiology Procalcitonin 0.30 Dicussed with sister who requests ortho consultation here to evaluate finger to see if surgery can be done here Discussed with Dr Rosales who will see in consultation, appreciate recs Titrate off BiPAP today Pulm consulted, appreciate recs Atrial fibrillation on Coumadin INR 1.6 this AM Continue Coumadin Cover with Lovenox T2DM Levemir 50 units BID Sliding scale insulin C HTN BPH Continue home meds, BP well controlled Morbid obesity Clinically significant, no acute management needs DVT ppx: lovenox as above Diagnosis/Problems Diagnosis/Problems (1) Person under investigation for COVID-19 Status: Acute (2) PNA (pneumonia) Status: Acute Qualifiers: Pneumonia type: due to unspecified organism (3) NSTEMI (non-ST elevation myocardial infarction) Status: Acute (4) Sepsis Status: Acute (5) CHF (congestive heart failure) Status: Acute (6) Morbid obesity Status: Chronic (7) Finger osteomyelitis, left Status: Acute (8) Respiratory failure Status: Acute (9) Diabetes mellitus, insulin dependent (IDDM), uncontrolled Status: Acute (10) TREE (obstructive sleep apnea) Status: Chronic (11) Debility (12) Renal insufficiency Status: Acute (13) CAD (coronary artery disease) Status: Chronic Clinical Quality Measures DVT/VTE Risk/Contraindication: Risk Factor Score Per Nursin RFS Level Per Nursing on Admit: 4+=Very High ANTONIO MICHAELS MD Jul 30, 2020 09:33
--- NOTE | 2020-07-30 09:57 | Progress Note - Cardiology ---
Cardiology SOAP Progress Note Subjective: Sitting up in bed States he feels good this morning No c/o CP, palpitations Feels breathing has improve, occ non-productive cough Objective: I&O/Vital Signs 08/01/20 08/01/20 08/01/20 08/01/20 01:00 03:02 04:27 06:30 Temp 36.6 37.0 Pulse 76 70 74 Resp 20 B/P (MAP) 126/71 (89) Pulse Ox 92 96 95 O2 Delivery NIV CPAP NIV Bilevel O2 Flow Rate 4.00 FiO2 30 08/01/20 08/01/20 08/01/20 08/01/20 07:00 07:38 07:51 08:02 Temp 36.0 Pulse 68 70 Resp 22 B/P (MAP) 145/66 (92) Pulse Ox 93 93 O2 Delivery NIV CPAP NIV CPAP NIV CPAP O2 Flow Rate 4.00 08/01/20 11:35 Temp 36.2 Pulse 60 Resp 20 B/P (MAP) 121/58 (79) Pulse Ox 93 O2 Delivery NIV CPAP 08/01/20 00:00 Intake Total 920 ml Output Total 2275 ml Balance -1355 ml Weight (Pounds): 322 Weight (Ounces): 1.0 Weight (Calculated Kilograms): 146.576155 Constitutional: AAO x 3, well-developed, well-nourished Respiratory: No accessory muscle use; other (fair air entry, diminshed at the bases) Cardiovascular: regular rate-rhythm, S1 and S2, systolic murmur (soft ARACELY at card base) Gastrointestional: No tender; soft; No guarding, No rebound; audible bowel sounds Extremities: other (R BKA); No clubbing, No cyanosis, No significant edema Neurologic/Psychiatric: other (seems to be able to move all limbs; not cooperative with exam) Skin: No rash on exposed areas, No ulcerations on exposed areas Results/Procedures: Labs Laboratory Tests 07/31/20 14:08: Vancomycin Level Trough 27.4*H 07/31/20 15:26: Glucometer 112H 07/31/20 20:23: Glucometer 193H 08/01/20 06:06: White Blood Count 4.2L, Red Blood Count 2.76L, Hemoglobin 7.6L, Hematocrit 24L, Mean Corpuscular Volume 87, Mean Corpuscular Hemoglobin 28, Mean Corpuscular Hemoglobin Concent 32, Red Cell Distribution Width 15.0H, Platelet Count 137, Mean Platelet Volume 11.2, Immature Granulocyte % (Auto) 1, Neutrophils (%) (Auto) 75, Lymphocytes (%) (Auto) 13, Monocytes (%) (Auto) 9, Eosinophils (%) (Auto) 2, Basophils (%) (Auto) 1, Neutrophils # (Auto) 3.1, Lymphocytes # (Auto) 0.6L, Monocytes # (Auto) 0.4, Eosinophils # (Auto) 0.1, Basophils # (Auto) 0.0, Immature Granulocyte # (Auto) 0.0, Prothrombin Time 18.2H, INR Comment 1.5H, Sodium Level 137, Potassium Level 3.9, Chloride Level 106, Carbon Dioxide Level 20L, Anion Gap 11, Blood Urea Nitrogen 46H, Creatinine 2.22H, Estimat Glomerular Filtration Rate 30, BUN/Creatinine Ratio 21, Glucose Level 124H, Calcium Level 8.6, Phosphorus Level 3.7, Magnesium Level 2.3 08/01/20 06:15: Glucometer 114H 08/01/20 10:40: Glucometer 69L 08/01/20 11:34: Glucometer 112H Microbiology 07/31/20 Gram Stain - Final, Resulted 07/31/20 Anaerobic Culture, Resulted Pending 07/31/20 Surgical Culture, Resulted Pending 07/28/20 MRSA Screen - Final, Complete MRSA not isolated 07/28/20 Blood Culture - Preliminary, Resulted No growth A/P: Assessment: Sepsis H/o osteomyelitis Acute (MARGY 2) on chronic (CKD 4) renal failure Mildly elevated troponin, probably type 2 CT due to renal failure and sepsis H/O Peripheral arterial disease, history of right BKA Coronary artery disease, history of multiple interventions, total of 8 stents, had bypass surgery using single vessel after failed multiple attempts for intervention done at [facility] in 2017. H/o echo October 2019 (Dr Terry): LVEF 50-55% and normal PA pressure Hypertension Hyperlipidemia, intolerant to multiple statin COPD Obesity and TREE - CPAP tx Diabetes mellitus II Carotid stenosis, totally occluded left ICA, less than 40 percent on the right side Medical noncompliance. Plan: * Reduce ASA to 81 daily * Continue warfarin. Target INR 2-3 * D/c enoxaparin when INR 2 or more * Continue bb * Monitor labs * Worsening renal function - IVF hydration as per ICU services TISH ARCEO [facility] Jul 30, 2020 09:57
--- NOTE | 2020-07-30 10:19 | Physical Therapy Daily Note ---
PT Daily Note-Current Subjective Patient reluctantly agrees to PT. Mental Status Patient Orientation: Normal For Age Attachments: Oxygen (NC), Bergeron Catheter, IV Transfers SCALE: Activities may be completed with or without assistive devices. 4-Nzdyqbevxm-yxgrykr completes the activity by him/herself with no assistance from a helper. 5-Set-up or Clean-up Assistance-helper sets up or cleans up; patient completes activity. Ramona assists only prior to or following the activity. 4-Supervision or Touching Assistance-helper provides verbal cues and/or touching/steadying and/or contact guard assistance as patient completes activity. Assistance may be provided throughout the activity or intermittently. 3-Partial/Moderate Assistance-helper does LESS THAN HALF the effort. Ramona lifts, holds or supports trunk or limbs, but provides less than half the effort. 2-Substantial/Maximal Assistance-helper does MORE THAN HALF the effort. Ramona lifts or holds trunk or limbs and provides more than half the effort. 7-Msasjyied-jgybyf does ALL the effort. Patient does none of the effort to complete the activity. Or, the assistance of 2 or more helpers is required for the patient to complete the activity. If activity was not attempted, code reason: 7-Patient Refused. 9-Not Applicable-not attempted and the patient did not perform the activity before the current illness, exacerbation or injury. 10-Not Attempted due to Environmental Limitations-(lack of equipment, weather restraints, etc.). 88-Not Attempted due to Medical Conditions or Safety Concerns. Bed placed in Trendelenburg to allow patient to perform bed mobility activity (up toward HOB) Exercises Supine Ex: Ankle pumps, Quad Set, Glut sets, Heel Slides Supine Reps: 12 (left LE AP) Assessment Patient declined to perform EOB activity. PT to increase activity as tolerated by patient or as patient allows. Patient states he is "able to do things for himself and not worried about it." PT Short Term Goals Short Term Goals Time Frame: Jul 30, 2020 PT Geography Professor Goals Prison Goals PT Geography Professor Goals Time Frame: Aug 10, 2020 Roll Left & Right (QC): 3 Sit to Lying (QC): 3 Lying-Sitting on Side/Bed(QC): 3 Sit to Stand (QC): 3 Chair/Aqg-yo-Dbofq Xfer(QC): 3 PT Plan Treatment/Plan Treatment Plan: Continue Plan of Care Treatment Plan: Bed Mobility, Education, Functional Activity Farshad, Functional Strength, Safety, Therapeutic Exercise, Transfers Treatment Duration: Aug 10, 2020 Frequency: 6 times per week Estimated Hrs Per Day: .25 hour per day Patient and/or Family Agrees t: Yes Time/GCodes Time In: 921 Time Out: 929 Total Billed Treatment Time: 8 Total Billed Treatment 1 visit EX 8 min ROSELYN FREEMAN PT Jul 30, 2020 10:19
[2020-07-30] MEDS: inSUlin ASPART (NovoLOG) 1 UNIT/0.01 ML (CHARGE PER UNIT) SC SCH ×3 (11:33→20:26)
--- NOTE | 2020-07-30 13:12 | Diagnostic Imaging Report ---
CLINICAL INDICATION: Patient with osteomyelitis of the 3rd digit. EXAM: X-ray of the left hand, 2 views. COMPARISON: X-ray left hand dated 07/17/2020. FINDINGS: There is interval progression of bony erosion and destruction centered at the 3rd DIP joint. There is erosion of most of the 3rd distal phalanx and the mid and distal aspects of the 3rd middle phalanx. There is progression of soft tissue swelling adjacent to the 3rd digit. There is progression of fracture and dislocation of bony fragments involving the 3rd DIP joint and distal phalanx. IMPRESSION: There is interval progression of osteomyelitis changes of the 3rd digit centered in the 3rd DIP joint with progression of bony erosions and fracture deformity. Dictated by: Dictated on workstation # [id number]
[2020-07-30] MEDS: VANCOMYCIN 2,500 MG/NS 500 ML IVPB IV SCH ×2 (14:34)
--- NOTE | 2020-07-30 15:21 | Progress Note - Cardiology ---
Cardiology SOAP Progress Note Subjective: Shortness of breath better No cp or palp or syncope No n/v Gen malaise, improving Objective: I&O/Vital Signs 07/30/20 07/30/20 07/30/20 07/30/20 06:00 06:41 06:41 07:30 Pulse 72 74 73 Resp 16 22 B/P (MAP) 149/83 (105) Pulse Ox 94 97 O2 Delivery NIV Bilevel Nasal Cannula O2 Flow Rate 30.00 30.00 4.00 07/30/20 07/30/20 07/30/20 07/30/20 08:00 09:00 10:08 11:16 Temp 37.6 36.6 Pulse 75 Resp 22 B/P (MAP) 164/80 (108) Pulse Ox 92 97 O2 Delivery NIV Bilevel Nasal Cannula Nasal Cannula O2 Flow Rate 4.00 4.00 FiO2 30 07/30/20 07/30/20 07/30/20 12:35 14:28 16:00 Temp 36.4 Pulse 72 68 Resp 20 B/P (MAP) 166/98 (120) Pulse Ox 97 96 O2 Delivery Nasal Cannula NIV Bilevel O2 Flow Rate 4.00 30.00 07/30/20 00:00 Intake Total 1700 ml Output Total 400 ml Balance 1300 ml Weight (Pounds): 322 Weight (Ounces): 1.0 Weight (Calculated Kilograms): 146.293259 Constitutional: AAO x 3, well-developed, well-nourished Respiratory: No accessory muscle use; other (fair air entry, diminshed at the bases) Cardiovascular: regular rate-rhythm, S1 and S2, systolic murmur (soft ARACELY at card base) Gastrointestional: No tender; soft; No guarding, No rebound; audible bowel sounds Extremities: other (R BKA); No clubbing, No cyanosis, No significant edema Neurologic/Psychiatric: other (seems to be able to move all limbs; not cooperative with exam) Skin: No rash on exposed areas, No ulcerations on exposed areas Results/Procedures: Labs Laboratory Tests 07/29/20 20:03: Glucometer 164H 07/30/20 03:57: White Blood Count 5.9, Red Blood Count 2.97L, Hemoglobin 8.2L, Hematocrit 26L, Mean Corpuscular Volume 88, Mean Corpuscular Hemoglobin 28, Mean Corpuscular Hemoglobin Concent 31L, Red Cell Distribution Width 15.3H, Platelet Count 132, Mean Platelet Volume 10.5, Immature Granulocyte % (Auto) 0, Neutrophils (%) (Auto) 75, Lymphocytes (%) (Auto) 11L, Monocytes (%) (Auto) 11, Eosinophils (%) (Auto) 2, Basophils (%) (Auto) 1, Neutrophils # (Auto) 4.4, Lymphocytes # (Auto) 0.7L, Monocytes # (Auto) 0.6, Eosinophils # (Auto) 0.1, Basophils # (Auto) 0.0, Immature Granulocyte # (Auto) 0.0, Prothrombin Time 19.6H, INR Comment 1.6H, Sodium Level 137, Potassium Level 3.9, Chloride Level 105, Carbon Dioxide Level 23, Anion Gap 9, Blood Urea Nitrogen 57H, Creatinine 2.52#H, Estimat Glomerular Filtration Rate 26, BUN/Creatinine Ratio 23, Glucose Level 118H, Calcium Level 8.5, Phosphorus Level 4.3, Magnesium Level 2.7H 07/30/20 11:32: Glucometer 164H 07/30/20 15:56: Glucometer 144H Microbiology 07/28/20 Blood Culture - Preliminary, Resulted No growth A/P: Assessment: Sepsis L middle finger osteomyelitis, awaiting surgery Acute (MARGY 2) on chronic (CKD 4) renal failure Mildly elevated troponin, probably type 2 [place] due to renal failure and sepsis PAF H/o peripheral arterial disease, history of right BKA Coronary artery disease, history of multiple interventions, total of 8 stents, had bypass surgery using single vessel after failed multiple attempts for intervention at [facility] in 2017. No intervention since, he says Echo on 07/30/20: LVEF 40-45%, mild global hypokinesis that is somewhat prominent at the apex, mild to mod dilatation of the left atrium Hypertension Hyperlipidemia, intolerant to multiple statin COPD Obesity and TREE - CPAP tx Diabetes mellitus II Carotid stenosis, totally occluded left ICA, less than 40 percent on the right side Medical noncompliance Given CAD, cardiomyopathy, DM II, ac on chronic renal insufficieny, cardiac risk for noncardiac surgery is estimated to be intermediate to high Plan: * See above for cardiac risk eval. I discussed this with him. He understands and wishes to proceed with surgery. He will discuss with his surgeon * I discussed his case with his primary attending Dr Barraza on the phone * Monitor labs * Worsening renal function - IVF hydration as per ICU services PIERCE JOHN MD [facility] Jul 30, 2020 15:21
--- NOTE | 2020-07-30 16:24 | Progress Note ---
Standard Progress Note Progress Notes/Assess & Plan Date Seen by a Provider: Jul 30, 2020 Time Seen by a Provider: 16:23 Progress/Assessment & Plan patient seen and evaluated consult dictated plan for amputation of LLF at [facility] tomorrow Focused Exam Lactate Level 07/28/20 13:19: Lactic Acid Level 2.29*H 07/28/20 16:05: Lactic Acid Level 0.80 ELMO GRIFFITHS MD Jul 30, 2020 16:24
[2020-07-30] MEDS: TAMSULOSIN 0.4 MG (FLOMAX) CAP PO SCH (17:58)
[2020-07-30] MEDS: warFARin 10 MG (COUMADIN) TAB PO SCH (17:58)
--- NOTE | 2020-07-30 20:31 | CONSULTATION REPORT ---
DATE OF SERVICE: INPATIENT CONSULTATION REASON FOR CONSULTATION: Left long finger osteomyelitis. HISTORY OF PRESENT ILLNESS: The patient is a 69-year-old right hand dominant gentleman with known osteomyelitis of his left long finger. He was scheduled for an amputation at the PIP joint by Dr. Carcamo this week. However, he developed respiratory failure and was admitted to the hospital. He reports a greater than 1-month history of drainage from the long finger. Radiographs obtained today revealed destruction of the distal and middle phalanx. His proximal phalanx appears to be spared. PHYSICAL EXAMINATION: His left long finger demonstrates diffuse erythema and warmth distally, there was drainage noted at the distal phalanx. His skin is intact at the PIP joint. IMPRESSION: Osteomyelitis, left long finger proximal and distal phalanges. PLAN: Left long finger amputation at the PIP joint. The risks, benefits, options, ramifications and recovery were discussed with the patient. He understands and wishes to proceed. Job ID: [id number] DocumentID: [id number] Dictated Date: 07/30/2020 16:10:07 It Recruiter Date: 07/30/2020 20:30:20 Dictated By: ELMO GRIFFITHS MD
[2020-07-30] MEDS ORDERED: NS (IVPB) 200 ML ONE (21:11)
[2020-07-30] MEDS ORDERED: PIPERACILLIN/TAZO 4.5 GM VIAL (ZOSYN) IV ONE (21:11)
[2020-07-31] MEDS: RT-ALBUTEROL INHALER HFA (VENTOLIN HFA) 18 GM IH SCH ×7 (01:55→19:27)
[2020-07-31] MEDS ORDERED: LORazepam INJ 2 MG/ML (ATIVAN) VIAL IVP PRN (02:15)
[2020-07-31] MEDS: inSUlin ASPART (NovoLOG) 1 UNIT/0.01 ML (CHARGE PER UNIT) SC SCH ×4 (05:11→22:42)
[2020-07-31] MEDS: CATHETER FLUSH 10 ML SYR IV SCH ×3 (05:11→22:43)
[2020-07-31] MEDS: PIPERACILLIN/TAZO 4.5 GM/NS 100 ML IV SCH ×6 (05:11→22:42)
[2020-07-31] MEDS: hydrALAZINE (APRESOLINE) 25 MG TAB PO SCH ×3 (05:20→22:42)
[2020-07-31 05:29] LABS: BASOPHILS % (AUTO) 0 % (0-10); EOSINOPHILS # (AUTO) 0.2 10^3/uL (0.0-0.3); EOSINOPHILS % (AUTO) 3 % (0-10); HEMATOCRIT 26 % (40-54); HEMOGLOBIN 8.2 g/dL (13.3-17.7); LYMPHOCYTES # (AUTO) 0.7 10^3/uL (1.0-4.0); LYMPHOCYTES % (AUTO) 13 % (12-44); MEAN CORPUSCULAR HEMOGLOBIN 27 pg (25-34); MEAN CORPUSCULAR HGB CONC 31 g/dL (32-36); MEAN CORPUSCULAR VOLUME 88 fL (80-99); MEAN PLATELET VOLUME 11.2 fL (9.0-12.2); MONOCYTES # (AUTO) 0.5 10^3/uL (0.0-1.0); MONOCYTES % (AUTO) 10 % (0-12); NEUTROPHILS # (AUTO) 3.6 10^3/uL (1.8-7.8); NEUTROPHILS % (AUTO) 72 % (42-75); PLATELET COUNT 131 10^3/uL (130-400)
[2020-07-31 05:38] LABS: INR 1.4 (0.8-1.4); PROTHROMBIN TIME PATIENT 17.9 SEC (12.2-14.7)
[2020-07-31 05:46] LABS: POTASSIUM 3.8 MMOL/L (3.6-5.0)
[2020-07-31 05:47] LABS: CALCIUM 8.7 MG/DL (8.5-10.1)
[2020-07-31 05:51] LABS: CREATININE SERUM 2.3 MG/DL (0.60-1.30); PHOSPHORUS 4.4 MG/DL (2.3-4.7)
[2020-07-31 05:53] LABS: MAGNESIUM 2.4 MG/DL (1.6-2.4)
--- NOTE | 2020-07-31 07:39 | Pulmonary Progress Note ---
Subjective Time Seen by a Provider: 07:36 Subjective/Events-last exam No complications noted. Sepsis Event Evaluation Height, Weight, BMI Height: 6'0.00" Weight: 322lbs. 1.0oz. 146.421083za; 48.00 BMI Method:Stated Focused Exam Lactate Level 07/28/20 13:19: Lactic Acid Level 2.29*H 07/28/20 16:05: Lactic Acid Level 0.80 Exam Exam Vital Signs Date Time Temp Pulse Resp B/P (MAP) Pulse Ox O2 Delivery O2 Flow Rate FiO2 07/31/20 06:50 65 21 94 35.00 07/31/20 04:33 36.5 66 24 152/71 (98) 97 NIV Bilevel 30.00 07/31/20 01:56 65 21 94 25.00 07/31/20 01:00 66 07/30/20 23:25 36.4 70 26 148/70 (96) 96 NIV Bilevel 30.00 07/30/20 21:30 NIV Bilevel 25 07/30/20 21:26 65 21 94 25.00 07/30/20 19:48 36.0 68 18 136/63 (87) 95 NIV Bilevel 30.00 07/30/20 19:00 68 07/30/20 18:45 76 21 98 30.00 07/30/20 16:00 36.4 68 20 166/98 (120) 96 NIV Bilevel 30.00 07/30/20 14:28 97 Nasal Cannula 4.00 07/30/20 12:35 72 07/30/20 11:16 36.6 75 22 164/80 (108) 97 Nasal Cannula 4.00 07/30/20 10:08 92 Nasal Cannula 4.00 07/30/20 09:00 NIV Bilevel 30 07/30/20 08:00 37.6 I & O 07/31/20 07:00 Intake Total 1620 ml Output Total 1675 ml Balance -55 ml Height & Weight Height: 6'0.00" Weight: 322lbs. 1.0oz. 146.138660rh; 48.00 BMI Method:Stated General Appearance: No Apparent Distress, Chronically ill, Obese HEENT: Other (wearing BiPAP) Respiratory: No Accessory Muscle Use, Decreased Breath Sounds (auscultation limited by body habitus); No Rhonci, No Wheezing; Other (on BiPAP) Cardiovascular: Regular Rate, Rhythm, No Murmur Capillary Refill: Less Than 3 Seconds Gastrointestinal: normal bowel sounds, non tender, soft Extremity: Other (s/p BKA on right) Neurologic/Psychiatric: Alert, Oriented x3 Skin: Normal Color, Warm/Dry Results Lab Laboratory Tests 07/30/20 03:57 07/31/20 04:55 Assessment/Plan Assessment/Plan Acute on chronic respiratory failure with hypoxia -Currently on BiPAP at 30 % HS -Back to [place] 4liter during the day -COVID is negative Sepsis Possible pneumonia -Currently on vanco and Zosyn -MRSA swab not done NSTEMI -Cardiolgy following Osteomyelitis of left finger SIRS+ with elevated WBC, tachycardia, and tachypnea COVID LEV negative, PCR pending - Cardiology following Vancomycin and Zosyn Ortho following Atrial fibrillation on Coumadin Coumadin Lovenox for bridge T2DM Levemir Sliding scale insulin HTN BPH Continue home meds Morbid obesity Clinically significant CHELLE RUIZ DO Jul 31, 2020 07:39
--- NOTE | 2020-07-31 08:07 | Diagnostic Imaging Report ---
INDICATION: Dyspnea AP view of the chest is obtained with comparison made to the study of one day earlier. There is cardiomegaly. No pneumothorax is identified. There is no significant pleural fluid. Postoperative findings are again noted in the mediastinum. IMPRESSION: Cardiomegaly similar to previous study without evidence of new abnormality. Dictated by: Dictated on workstation # [id number]
[2020-07-31] MEDS: amLODIPine 10 MG (NORVASC) TAB PO SCH (08:32)
[2020-07-31] MEDS: ASPIRIN 81 MG CHEW (CHILDREN'S ASA) PO SCH ×2 (08:32→15:53)
[2020-07-31] MEDS: CARVEDILOL 12.5 MG (COREG) TABLET PO SCH ×2 (08:32→17:33)
--- NOTE | 2020-07-31 09:26 | Progress Note - Hospitalist ---
Subjective HPI/CC On Admission Date Seen by Provider: Jul 31, 2020 Time Seen by Provider: 09:21 Bin Newberry is a 69 year old male with PMH HTN, T2DM on insulin, CAD s/p CABG, PVD s/p BKA, atrial fibrillation on coumadin, BPH, who presented with shortness of breath. [facility] He was reportedly found to have a low oxygen saturation. EMS was called and placed him on CPAP. He was placed on BiPAP in the ER. Upon my examination, he is wearing BiPAP. He will awaken for brief periods, but is uncooperative with my exam. Subjective/Events-last exam Pt reports feeling ok. Still on BiPAP. Discussed plan for surgery then need to push him more to get off BiPAP and work more with therapy. He requests having his own CPAP. Focused Exam Lactate Level 07/28/20 13:19: Lactic Acid Level 2.29*H 07/28/20 16:05: Lactic Acid Level 0.80 Objective Exam Vital Signs Vital Signs Date Time Temp Pulse Resp B/P (MAP) Pulse Ox O2 Delivery O2 Flow Rate FiO2 07/31/20 06:50 63 25 95 35.00 07/31/20 04:33 36.5 152/71 (98) NIV Bilevel 07/30/20 21:30 25 Capillary Refill : Less Than 3 Seconds General Appearance: No Apparent Distress, Chronically ill, Obese Respiratory: Lungs Clear, No Accessory Muscle Use Cardiovascular: Regular Rate, Rhythm, No Murmur Gastrointestinal: Normal Bowel Sounds, Non Tender, Soft Extremity: Other (s/p right BKA, left third digit bandage and erythematous at base) Neurologic/Psychiatric: Alert, Oriented x3, Normal Mood/Affect Results/Procedures Lab Laboratory Tests 07/31/20 04:55 Patient resulted labs reviewed. Imaging: Reviewed Imaging Report Assessment/Plan Assessment and Plan Assess & Plan/Chief Complaint Acute on chronic respiratory failure with hypoxia Person under investigation for COVID-19 Sepsis Possible pneumonia NSTEMI Osteomyelitis of left finger Continue abx, Vanc and Zosyn Discussed with Dr Rosales, plan for OR today Discussed with both patient and his sister regarding risk of surgery, both understand that this is an intermediate to high risk surgery given his multiple chronic conditions but that he is as optimized for it as possible, high risk for needing to stay on vent postop COVID LEV negative, PCR negative Cardiology Consulted, appreciate recs Pulm consulted, appreciate recs Atrial fibrillation on Coumadin INR 1.4 this AM Anticoagulation held for surgery this AM T2DM Levemir 50 units BID- hold morning dose for surgery Sliding scale insulin C HTN BPH Continue home meds, BP well controlled Morbid obesity Clinically significant, no acute management needs Debility Discussed with Manuel the need to push himself more with therapy after surgery, expresses understanding DVT ppx: lovenox as above Diagnosis/Problems Diagnosis/Problems (1) Person under investigation for COVID-19 Status: Acute (2) PNA (pneumonia) Status: Acute Qualifiers: Pneumonia type: due to unspecified organism (3) NSTEMI (non-ST elevation myocardial infarction) Status: Acute (4) Sepsis Status: Acute (5) CHF (congestive heart failure) Status: Acute (6) Morbid obesity Status: Chronic (7) Finger osteomyelitis, left Status: Acute (8) Respiratory failure Status: Acute (9) Diabetes mellitus, insulin dependent (IDDM), uncontrolled Status: Acute (10) TREE (obstructive sleep apnea) Status: Chronic (11) Debility (12) Renal insufficiency Status: Acute (13) CAD (coronary artery disease) Status: Chronic Clinical Quality Measures DVT/VTE Risk/Contraindication: Risk Factor Score Per Nursin RFS Level Per Nursing on Admit: 4+=Very High ANTONIO MICHAELS MD Jul 31, 2020 09:26
--- NOTE | 2020-07-31 09:38 | Progress Note - Cardiology ---
Cardiology SOAP Progress Note Subjective: Amputation of finger later today with Dr. Rosales No c/o Objective: I&O/Vital Signs 08/01/20 08/01/20 08/01/20 08/01/20 01:00 03:02 04:27 06:30 Temp 36.6 37.0 Pulse 76 70 74 Resp 20 B/P (MAP) 126/71 (89) Pulse Ox 92 96 95 O2 Delivery NIV CPAP NIV Bilevel O2 Flow Rate 4.00 FiO2 30 08/01/20 08/01/20 08/01/20 08/01/20 07:00 07:38 07:51 08:02 Temp 36.0 Pulse 68 70 Resp 22 B/P (MAP) 145/66 (92) Pulse Ox 93 93 O2 Delivery NIV CPAP NIV CPAP NIV CPAP O2 Flow Rate 4.00 08/01/20 11:35 Temp 36.2 Pulse 60 Resp 20 B/P (MAP) 121/58 (79) Pulse Ox 93 O2 Delivery NIV CPAP 08/01/20 00:00 Intake Total 920 ml Output Total 2275 ml Balance -1355 ml Weight (Pounds): 322 Weight (Ounces): 1.0 Weight (Calculated Kilograms): 146.378980 Constitutional: AAO x 3, well-developed, well-nourished Respiratory: No accessory muscle use; other (fair air entry, diminshed at the bases) Cardiovascular: regular rate-rhythm, S1 and S2, systolic murmur (soft ARACELY at card base) Gastrointestional: No tender; soft; No guarding, No rebound; audible bowel sounds Extremities: other (R BKA); No clubbing, No cyanosis, No significant edema Neurologic/Psychiatric: other (seems to be able to move all limbs; not cooperative with exam) Skin: No rash on exposed areas, No ulcerations on exposed areas Results/Procedures: Labs Laboratory Tests 07/31/20 14:08: Vancomycin Level Trough 27.4*H 07/31/20 15:26: Glucometer 112H 07/31/20 20:23: Glucometer 193H 08/01/20 06:06: White Blood Count 4.2L, Red Blood Count 2.76L, Hemoglobin 7.6L, Hematocrit 24L, Mean Corpuscular Volume 87, Mean Corpuscular Hemoglobin 28, Mean Corpuscular Hemoglobin Concent 32, Red Cell Distribution Width 15.0H, Platelet Count 137, Mean Platelet Volume 11.2, Immature Granulocyte % (Auto) 1, Neutrophils (%) (Auto) 75, Lymphocytes (%) (Auto) 13, Monocytes (%) (Auto) 9, Eosinophils (%) (Auto) 2, Basophils (%) (Auto) 1, Neutrophils # (Auto) 3.1, Lymphocytes # (Auto) 0.6L, Monocytes # (Auto) 0.4, Eosinophils # (Auto) 0.1, Basophils # (Auto) 0.0, Immature Granulocyte # (Auto) 0.0, Prothrombin Time 18.2H, INR Comment 1.5H, Sodium Level 137, Potassium Level 3.9, Chloride Level 106, Carbon Dioxide Level 20L, Anion Gap 11, Blood Urea Nitrogen 46H, Creatinine 2.22H, Estimat Glomerular Filtration Rate 30, BUN/Creatinine Ratio 21, Glucose Level 124H, Calcium Level 8.6, Phosphorus Level 3.7, Magnesium Level 2.3 08/01/20 06:15: Glucometer 114H 08/01/20 10:40: Glucometer 69L 08/01/20 11:34: Glucometer 112H Microbiology 07/31/20 Gram Stain - Final, Resulted 07/31/20 Anaerobic Culture, Resulted Pending 07/31/20 Surgical Culture, Resulted Pending 07/28/20 MRSA Screen - Final, Complete MRSA not isolated 07/28/20 Blood Culture - Preliminary, Resulted No growth A/P: Assessment: Sepsis L middle finger osteomyelitis, awaiting surgery Acute (MARGY 2) on chronic (CKD 4) renal failure Mildly elevated troponin, probably type 2 [place] due to renal failure and sepsis PAF H/o peripheral arterial disease, history of right BKA Coronary artery disease, history of multiple interventions, total of 8 stents, had bypass surgery using single vessel after failed multiple attempts for intervention at [facility] in 2017. No intervention since, he says Echo on 07/30/20: LVEF 40-45%, mild global hypokinesis that is somewhat prominent at the apex, mild to mod dilatation of the left atrium Hypertension Hyperlipidemia, intolerant to multiple statin COPD Obesity and TREE - CPAP tx Diabetes mellitus II Carotid stenosis, totally occluded left ICA, less than 40 percent on the right side Medical noncompliance Given CAD, cardiomyopathy, DM II, ac on chronic renal insufficieny, cardiac risk for noncardiac surgery is estimated to be intermediate to high Plan: * See above for cardiac risk eval. I discussed this with him. He understands and wishes to proceed with surgery. He will discuss with his surgeon * Dr. Hamilton has discussed his case with his primary attending Dr Barraza and I have spoken with her this morning * Monitor labs * Renal function improved today * Warfarin being held d/t pending surgery - advise resumption of warfarin after surgery DOC - advise covering with weight based Lovenox until INR is therapeutic for stroke prophylaxis d/t PAF TISH ARCEO [facility] Jul 31, 2020 09:38
--- NOTE | 2020-07-31 10:08 | Progress Note-Pre Operative ---
Pre-Operative Progress Note H&P Reviewed The H&P was reviewed, patient examined and no changes noted. Date Seen by Provider: Jul 31, 2020 Time Seen by Provider: 10: Date H&P Reviewed: Jul 31, 2020 Time H&P Reviewed: 10: Pre-Operative Diagnosis: left long finger osteomyelitis of middle and distal phalanges ELMO GRIFFITHS MD Jul 31, 2020 10:08
--- NOTE | 2020-07-31 10:09 | Progress Note-Post Operative ---
Post-Operative Progess Note Surgeon (s)/Special Effects Makeup Artist (s) Surgeon ELMO GRIFFITHS MD Special Effects Makeup Artist: Matty Odell Pre-Operative Diagnosis left long finger osteomyelitis of middle and distal phalanges Post-Operative Diagnosis left long finger osteomyelitis of middle and distal phalanges Procedure & Operative Findings Date of Procedure 07/31/20 Procedure Performed/Findings let long finger amputation at the PIP joint Anesthesia Type MAC plus digital block Estimated Blood Loss Estimated blood loss (mL): minimal Specimens/Packing Specimens Removed finger Packing: none ELMO GRIFFITHS MD Jul 31, 2020 10:09
[2020-07-31] MEDS ORDERED: oxyCODONE/APAP 5/325MG (PERCOCET 5) TABLET PO PRN (10:15)
[2020-07-31] MEDS ORDERED: ONDANSETRON 4 MG/2 ML (SDV) Z0FRAN IVP PRN ×2 (10:15→12:00)
[2020-07-31] MEDS ORDERED: morphine INJ 4 MG/ML 1 ML (VIAL/SYRINGE) IVP PRN (10:15)
[2020-07-31] MEDS ORDERED: proPOfol 200 MG/20 ML (DIPRIVAN) VIAL IV ONE (10:38)
[2020-07-31] MEDS ORDERED: LIDOCAINE PF 2% 5 ML (XYLOCAINE) VIAL ONE (10:38)
[2020-07-31] MEDS ORDERED: MIDAZOLAM 2 MG/2 ML (VERSED) VIAL ONE ×2 (10:38)
[2020-07-31] MEDS ORDERED: KETAMINE/NaCl 50 MG/5 ML SYRINGE (ED ONLY) ONE (10:38)
[2020-07-31] MEDS ORDERED: BUPIVACAINE 0.25% 30 ML (SENSORCAINE) VIAL ONE (10:59)
[2020-07-31] MEDS ORDERED: LIDOCAINE 1% INJ 20 ML 20 ML VIAL ONE (11:00)
[2020-07-31 11:51] VITALS: BP 115/60
[2020-07-31 12:00] VITALS: BP 117/62
[2020-07-31 12:10] VITALS: BP 128/61
[2020-07-31 12:20] VITALS: BP 121/63
--- NOTE | 2020-07-31 12:42 | Anesthesia-General Post-Op ---
MAC Patient Condition Mental Status/LOC: Same as Preop Cardiovascular: Satisfactory Nausea/Vomiting: Absent Respiratory: Satisfactory Pain: Controlled Complications: Absent Post Op Complications Complications None Follow Up Care/Instructions Patient Instructions None needed. Anesthesiology Discharge Order Discharge Order Patient is doing well, no complaints, stable vital signs, no apparent adverse anesthesia problems. VIRAJ GARCIA DO Jul 31, 2020 12:42
--- NOTE | 2020-07-31 13:31 | Physical Therapy Progress Note ---
Therapy Progress Note Patient had surgery on his hand earlier and refuses PT treatment at this time. He says he will do it in the morning. Will try back tomorrow. BETTY STRONG PT Jul 31, 2020 13:31
[2020-07-31] MEDS ORDERED: TROUGH ORDER-PHARMACY XX NR (14:00)
[2020-07-31] MEDS: ENOXAPARIN 300 MG/3 ML (LOVENOX) MULTI-DOSE VIAL SQ SCH (16:04)
[2020-07-31] MEDS: TAMSULOSIN 0.4 MG (FLOMAX) CAP PO SCH (17:33)
--- NOTE | 2020-07-31 17:39 | Wound Care Assessment ---
Wound Care Assessment Date Seen by Provider: Jul 31, 2020 Time Seen by Provider: 16:45 Chief Complaint Bilateral buttock rash. HPI The patient is a 69 year old male with bilateral buttock and thigh rash, consistent with fungal dermatitis. No open area is noted on inspection of the sacral area. Topical Nystatin ointment BID ordered. Will see as needed. Past Medical History: Admits Diabetes Type II, Admits Heart Disease, Admits Peripheral Artery Disease Recreational Drug Use: Yes Alcohol Use: Denies Use Exam Vital Signs Date Time Temp Pulse Resp B/P (MAP) Pulse Ox O2 Delivery O2 Flow Rate FiO2 07/31/20 16:00 36.0 64 20 115/57 (76) 96 Nasal Cannula 4.00 07/31/20 09:00 35 Capillary Refill : Less Than 3 Seconds General Appearance: no apparent distress Skin: other (Confluent rash covering both buttocks and upper posterior thighs.) Results Laboratory Tests 07/30/20 20:14: Glucometer 111H 07/31/20 04:55: White Blood Count 5.0, Red Blood Count 3.01L, Hemoglobin 8.2L, Hematocrit 26L, Mean Corpuscular Volume 88, Mean Corpuscular Hemoglobin 27, Mean Corpuscular Hemoglobin Concent 31L, Red Cell Distribution Width 15.2H, Platelet Count 131, Mean Platelet Volume 11.2, Immature Granulocyte % (Auto) 0, Neutrophils (%) (Auto) 72, Lymphocytes (%) (Auto) 13, Monocytes (%) (Auto) 10, Eosinophils (%) (Auto) 3, Basophils (%) (Auto) 0, Neutrophils # (Auto) 3.6, Lymphocytes # (Auto) 0.7L, Monocytes # (Auto) 0.5, Eosinophils # (Auto) 0.2, Basophils # (Auto) 0.0, Immature Granulocyte # (Auto) 0.0, Prothrombin Time 17.9H, INR Comment 1.4, Sodium Level 137, Potassium Level 3.8, Chloride Level 105, Carbon Dioxide Level 20L, Anion Gap 12, Blood Urea Nitrogen 51H, Creatinine 2.30H, Estimat Glomerular Filtration Rate 29, BUN/Creatinine Ratio 22, Glucose Level 80, Calcium Level 8. 7, Phosphorus Level 4.4, Magnesium Level 2.4 07/31/20 05:05: Glucometer 88 07/31/20 12:00: Glucometer 75 07/31/20 14:08: Vancomycin Level Trough 27.4*H 07/31/20 15:26: Glucometer 112H Microbiology 07/28/20 Blood Culture - Preliminary, Resulted No growth Assessment/Plan/Dx 1. fungal dermatitis, bilateral buttocks. 2. Morbid obesity. Plan: topical antifungal ordered. ELMO DAWN MD Jul 31, 2020 17:39
--- NOTE | 2020-07-31 19:28 | OPERATIVE REPORT ---
DATE OF SERVICE: 07/31/2020 PREOPERATIVE DIAGNOSIS: Left long finger osteomyelitis of the middle and distal phalanges. POSTOPERATIVE DIAGNOSIS: Left long finger osteomyelitis of the middle and distal phalanges. PROCEDURE: Left long finger amputation at the PIP joint. SURGEON: Bin Rosales MD BRAND PLANNER: Matty Odell, who assisted throughout the procedure and closed the incision. ANESTHESIA: Monitored anesthesia care plus local by Dr. Hdz. TOURNIQUET TIME: Approximately 10 minutes at 250 mmHg. ESTIMATED BLOOD LOSS: Minimal. DRAINS: None. COMPLICATIONS: None. POSTOPERATIVE PLAN: Assessment of cultures, which were sent and local wound care. STATEMENT OF MEDICAL NECESSITY: The patient is a 69-year-old gentleman who has had a draining wound from his left long finger for several months. This has progressed to the point where he had radiographic evidence of osteomyelitis of his middle and distal phalanges. He was scheduled to have an amputation by Dr. Carcamo at an outside facility today; however, he was admitted over the weekend in respiratory distress and I was asked to assess for possible amputation while the patient was admitted for his medical issues. The patient understood that he may require more proximal amputation if there are wound healing issues or progression of his osteomyelitis. DESCRIPTION OF PROCEDURE: After risks and benefits of the procedure were discussed and questions were answered, informed consent was signed and placed on chart, the operative site was confirmed in the preoperative holding area initialed by the surgeon. The patient was transferred to the operating room. After adequate levels of monitored anesthesia care were obtained, a timeout was called, confirming the operative site and a digital block was placed in the left long finger under sterile conditions using a combination of plain lidocaine and plain Marcaine. Left upper extremity was prepped and draped in the usual sterile fashion. Fish mouth incision was made after elevating the tourniquet at the PIP joint. The underlying soft tissues were carefully dissected. The finger was disarticulated at the PIP joint and a rongeur was used to resect the articular cartilage and volar prominence proximally. No necrotic tissue was noted in the skin and subcutaneous areas. The neurovascular bundles were identified and cauterized. The flexor tendons were pulled into the wound and resected proximally. The wound was copiously irrigated, 3-0 Vicryl was used to reapproximate deep subcutaneous tissue after deflating the tourniquet and 4-0 Vicryl was used to reapproximate the skin in a horizontal mattress interrupted fashion. A soft dressing was applied. The patient was transferred to the recovery room awake and in stable condition. Job ID: [id number] DocumentID: [id number] Dictated Date: 07/31/2020 12:10:46 Hydraulic Lift Driver Date: 07/31/2020 19:27:29 Dictated By: BIN ROSALES MD
--- NOTE | 2020-07-31 20:08 | Progress Note - Cardiology ---
Cardiology SOAP Progress Note Subjective: No cp or palp or syncope Shortness of breath with exertion, mod, unchanged No n/v Objective: I&O/Vital Signs 07/31/20 07/31/20 07/31/20 07/31/20 09:00 09:49 11:51 11:51 Temp 36.3 Pulse 67 Resp 22 20 B/P (MAP) 115/60 (78) Pulse Ox 95 93 O2 Delivery NIV Bilevel OxyMask OxyMask O2 Flow Rate 30.00 8 8 FiO2 35 07/31/20 07/31/20 07/31/20 07/31/20 12:00 12:00 12:10 12:10 Resp 14 14 B/P (MAP) 117/62 (80) 128/61 (83) Pulse Ox 96 95 O2 Delivery OxyMask OxyMask OxyMask OxyMask O2 Flow Rate 6 6 5 5 07/31/20 07/31/20 07/31/20 07/31/20 12:20 12:20 12:30 12:54 Temp 36.5 Pulse 65 66 Resp 14 20 B/P (MAP) 121/63 (82) 138/63 (88) Pulse Ox 96 96 O2 Delivery Nasal Cannula Nasal Cannula Nasal Cannula O2 Flow Rate 5 5 5.00 07/31/20 07/31/20 07/31/20 07/31/20 13:00 13:30 14:30 16:00 Temp 36.0 Pulse 66 76 64 Resp 22 20 20 B/P (MAP) 139/63 (88) 142/71 (94) 115/57 (76) Pulse Ox 96 97 95 96 O2 Delivery Nasal Cannula Nasal Cannula Nasal Cannula Nasal Cannula O2 Flow Rate 5.00 5.00 4.00 4.00 07/31/20 07/31/20 07/31/20 19:00 19:27 19:56 Temp 36.8 Pulse 66 66 Resp 18 B/P (MAP) 155/72 (99) Pulse Ox 91 O2 Delivery Nasal Cannula NIV Bilevel O2 Flow Rate 4.00 07/31/20 00:00 Intake Total 1095 ml Output Total 775 ml Balance 320 ml Weight (Pounds): 322 Weight (Ounces): 1.0 Weight (Calculated Kilograms): 146.140997 Constitutional: AAO x 3, well-developed, well-nourished Respiratory: No accessory muscle use; other (fair air entry, diminshed at the bases) Cardiovascular: regular rate-rhythm, S1 and S2, systolic murmur (soft ARACELY at card base) Gastrointestional: No tender; soft; No guarding, No rebound; audible bowel sounds Extremities: other (R BKA); No clubbing, No cyanosis, No significant edema Neurologic/Psychiatric: other (seems to be able to move all limbs; not cooperative with exam) Skin: No rash on exposed areas, No ulcerations on exposed areas Results/Procedures: Labs Laboratory Tests 07/30/20 20:14: Glucometer 111H 07/31/20 04:55: White Blood Count 5.0, Red Blood Count 3.01L, Hemoglobin 8.2L, Hematocrit 26L, Mean Corpuscular Volume 88, Mean Corpuscular Hemoglobin 27, Mean Corpuscular Hemoglobin Concent 31L, Red Cell Distribution Width 15.2H, Platelet Count 131, Mean Platelet Volume 11.2, Immature Granulocyte % (Auto) 0, Neutrophils (%) ( Auto) 72, Lymphocytes (%) (Auto) 13, Monocytes (%) (Auto) 10, Eosinophils (%) (Auto) 3, Basophils (%) (Auto) 0, Neutrophils # (Auto) 3.6, Lymphocytes # (Auto) 0.7L, Monocytes # (Auto) 0.5, Eosinophils # (Auto) 0.2, Basophils # (Auto) 0.0, Immature Granulocyte # (Auto) 0.0, Prothrombin Time 17.9H, INR Comment 1.4, Sodium Level 137, Potassium Level 3.8, Chloride Level 105, Carbon Dioxide Level 20L, Anion Gap 12, Blood Urea Nitrogen 51H, Creatinine 2.30H, Estimat Glomerular Filtration Rate 29, BUN/Creatinine Ratio 22, Glucose Level 80, Calcium Level 8.7, Phosphorus Level 4.4, Magnesium Level 2.4 07/31/20 05:05: Glucometer 88 07/31/20 12:00: Glucometer 75 07/31/20 14:08: Vancomycin Level Trough 27.4*H 07/31/20 15:26: Glucometer 112H Microbiology 07/28/20 MRSA Screen - Final, Complete MRSA not isolated 07/28/20 Blood Culture - Preliminary, Resulted No growth Laboratory Tests 07/30/20 03:57 07/31/20 04:55 A/P: Assessment: Sepsis 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 Acute (MARGY 2) on chronic (CKD 4) renal failure Mildly elevated troponin, probably type 2 UT due to renal failure and sepsis PAF H/o peripheral arterial disease, history of right BKA Coronary artery disease, history of multiple interventions, total of 8 stents, had bypass surgery using single vessel after failed multiple attempts for intervention at [facility] in 2017. No intervention since, he says Echo on 07/30/20: LVEF 40-45%, mild global hypokinesis that is somewhat prominent at the apex, mild to mod dilatation of the left atrium Hypertension Hyperlipidemia, intolerant to multiple statin COPD Obesity and TREE - CPAP tx Diabetes mellitus II Carotid stenosis, totally occluded left ICA, less than 40 percent on the right side Plan: * Monitor labs * Renal function improved today * Resume warfarin as soon as considered safe from a surgical standpoint PIERCE JOHN MD FACP [facility] Jul 31, 2020 20:08
[2020-07-31] MEDS: MICONAZOLE 2% POWDER (DESENEX AF) 90 GM TOP SCH (22:43)
[2020-07-31] MEDS: NYSTATIN OINTMENT 30 GM TUBE TOP SCH (22:43)
[2020-08-01] MEDS: ACETAMINOPHEN 325 MG TABLET PO PRN ×3 (00:12→19:58)
[2020-08-01] MEDS: RT-ALBUTEROL INHALER HFA (VENTOLIN HFA) 18 GM IH SCH ×4 (03:02→20:39)
[2020-08-01 06:18] LABS: BASOPHILS % (AUTO) 1 % (0-10); EOSINOPHILS # (AUTO) 0.1 10^3/uL (0.0-0.3); EOSINOPHILS % (AUTO) 2 % (0-10); HEMATOCRIT 24 % (40-54); HEMOGLOBIN 7.6 g/dL (13.3-17.7); LYMPHOCYTES # (AUTO) 0.6 10^3/uL (1.0-4.0); LYMPHOCYTES % (AUTO) 13 % (12-44); MEAN CORPUSCULAR HEMOGLOBIN 28 pg (25-34); MEAN CORPUSCULAR HGB CONC 32 g/dL (32-36); MEAN CORPUSCULAR VOLUME 87 fL (80-99); MEAN PLATELET VOLUME 11.2 fL (9.0-12.2); MONOCYTES # (AUTO) 0.4 10^3/uL (0.0-1.0); MONOCYTES % (AUTO) 9 % (0-12); NEUTROPHILS # (AUTO) 3.1 10^3/uL (1.8-7.8); NEUTROPHILS % (AUTO) 75 % (42-75); PLATELET COUNT 137 10^3/uL (130-400); WHITE BLOOD COUNT 4.2 10^3/uL (4.3-11.0)
[2020-08-01 06:30] VITALS: BP 142/105
[2020-08-01 06:36] LABS: INR 1.5 (0.8-1.4); PROTHROMBIN TIME PATIENT 18.2 SEC (12.2-14.7)
[2020-08-01] MEDS: PIPERACILLIN/TAZO 4.5 GM/NS 100 ML IV SCH ×6 (06:40→21:01)
[2020-08-01] MEDS: inSUlin ASPART (NovoLOG) 1 UNIT/0.01 ML (CHARGE PER UNIT) SC SCH ×4 (06:41→21:01)
[2020-08-01] MEDS: CATHETER FLUSH 10 ML SYR IV SCH ×3 (06:41→21:02)
[2020-08-01] MEDS: hydrALAZINE (APRESOLINE) 25 MG TAB PO SCH ×3 (06:44→21:02)
[2020-08-01 06:54] LABS: POTASSIUM 3.9 MMOL/L (3.6-5.0)
[2020-08-01 06:56] LABS: CALCIUM 8.6 MG/DL (8.5-10.1)
[2020-08-01 07:00] LABS: CREATININE SERUM 2.22 MG/DL (0.60-1.30); PHOSPHORUS 3.7 MG/DL (2.3-4.7)
[2020-08-01 07:03] LABS: MAGNESIUM 2.3 MG/DL (1.6-2.4)
--- NOTE | 2020-08-01 07:48 | Progress Note ---
Standard Progress Note Progress Notes/Assess & Plan Date Seen by a Provider: Aug 01, 2020 Time Seen by a Provider: 07:46 Progress/Assessment & Plan patient seen and evaluated consult dictated plan for amputation of LLF at [facility] tomorrow Final Diagnosis no complaints other than finger pain LUE dressing intact. Blood staining noted as expected s/p L LF amputation leave dressing intact until tomorrow Ok to DC from my standpoint when cleared by Medicine ELMO GRIFFITHS MD Aug 01, 2020 07:48
--- NOTE | 2020-08-01 08:58 | Pulmonary Progress Note ---
Subjective Time Seen by a Provider: 08:56 Sepsis Event Evaluation Height, Weight, BMI Height: 6'0.00" Weight: 322lbs. 1.0oz. 146.351997po; 48.00 BMI Method:Stated Exam Exam Vital Signs Date Time Temp Pulse Resp B/P (MAP) Pulse Ox O2 Delivery O2 Flow Rate FiO2 08/01/20 08:02 36.0 70 22 145/66 (92) 93 NIV CPAP 08/01/20 07:51 NIV CPAP 08/01/20 07:00 68 08/01/20 06:30 37.0 74 95 30 08/01/20 04:27 36.6 70 20 126/71 (89) 96 NIV Bilevel 08/01/20 03:02 92 NIV CPAP 4.00 08/01/20 01:00 76 08/01/20 00:25 37.0 69 22 160/86 (110) 93 NIV Bilevel 07/31/20 19:56 36.8 66 18 155/72 (99) 91 NIV Bilevel 07/31/20 19:40 NIV CPAP 07/31/20 19:27 Nasal Cannula 4.00 07/31/20 19:00 66 07/31/20 16:00 36.0 64 20 115/57 (76) 96 Nasal Cannula 4.00 07/31/20 14:30 95 Nasal Cannula 4.00 07/31/20 13:30 76 20 142/71 (94) 97 Nasal Cannula 5.00 07/31/20 13:00 66 22 139/63 (88) 96 Nasal Cannula 5.00 07/31/20 12:54 66 07/31/20 12:30 36.5 65 20 138/63 (88) 96 Nasal Cannula 5.00 07/31/20 12:20 14 121/63 (82) 96 Nasal Cannula 5 07/31/20 12:20 Nasal Cannula 5 07/31/20 12:10 OxyMask 5 07/31/20 12:10 14 128/61 (83) 95 OxyMask 5 07/31/20 12:00 14 117/62 (80) 96 OxyMask 6 07/31/20 12:00 OxyMask 6 07/31/20 11:51 OxyMask 8 07/31/20 11:51 36.3 20 115/60 (78) 93 OxyMask 8 07/31/20 09:49 67 22 95 30.00 07/31/20 09:00 NIV Bilevel 35 I & O 08/01/20 07:00 Intake Total 1120 ml Output Total 2775 ml Balance -1655 ml Height & Weight Height: 6'0.00" Weight: 322lbs. 1.0oz. 146.088187lf; 48.00 BMI Method:Stated General Appearance: No Apparent Distress, Chronically ill, Obese HEENT: Other (wearing BiPAP) Respiratory: Lungs Clear, No Accessory Muscle Use Cardiovascular: Regular Rate, Rhythm, No Murmur Capillary Refill: Less Than 3 Seconds Gastrointestinal: normal bowel sounds, non tender, soft Extremity: Other (s/p right BKA, left third digit bandage and erythematous at base) Neurologic/Psychiatric: Alert, Oriented x3, Normal Mood/Affect Skin: Normal Color, Warm/Dry Results Lab Laboratory Tests 07/31/20 04:55 08/01/20 06:06 Assessment/Plan Assessment/Plan Acute on chronic respiratory failure with hypoxia -Currently on CPAP at 30 % HS -Use CPAP HS only -Back to [place] 4liter during the day -COVID is negative Sepsis Possible pneumonia -Currently on vanco and Zosyn -MRSA swab not done NSTEMI -Cardiolgy following Osteomyelitis of left finger SIRS+ with elevated WBC, tachycardia, and tachypnea COVID LEV negative, PCR pending - Cardiology following Vancomycin and Zosyn Ortho following Atrial fibrillation on Coumadin Coumadin Lovenox for bridge T2DM Levemir Sliding scale insulin HTN BPH Continue home meds Morbid obesity and debility -Consult PT Clinically significant CHELLE RUIZ DO Aug 01, 2020 08:58
[2020-08-01] MEDS: CARVEDILOL 12.5 MG (COREG) TABLET PO SCH ×2 (10:15→17:31)
[2020-08-01] MEDS: ASPIRIN 81 MG CHEW (CHILDREN'S ASA) PO SCH (10:15)
[2020-08-01] MEDS: amLODIPine 10 MG (NORVASC) TAB PO SCH (10:16)
[2020-08-01] MEDS: MICONAZOLE 2% POWDER (DESENEX AF) 90 GM TOP SCH ×2 (10:20→21:01)
[2020-08-01] MEDS: NYSTATIN OINTMENT 30 GM TUBE TOP SCH ×2 (10:20→21:01)
--- NOTE | 2020-08-01 11:40 | Physical Therapy Daily Note ---
PT Daily Note-Current Subjective Patient agrees to PT. Mental Status Patient Orientation: Normal For Age Attachments: Bergeron Catheter Transfers SCALE: Activities may be completed with or without assistive devices. 3-Ksnaftcwio-oszfvzx completes the activity by him/herself with no assistance from a helper. 5-Set-up or Clean-up Assistance-helper sets up or cleans up; patient completes activity. Sumner assists only prior to or following the activity. 4-Supervision or Touching Assistance-helper provides verbal cues and/or touching/steadying and/or contact guard assistance as patient completes activity. Assistance may be provided throughout the activity or intermittently. 3-Partial/Moderate Assistance-helper does LESS THAN HALF the effort. Sumner lifts, holds or supports trunk or limbs, but provides less than half the effort. 2-Substantial/Maximal Assistance-helper does MORE THAN HALF the effort. Sumner lifts or holds trunk or limbs and provides more than half the effort. 3-Oqczwjvvs-vfupqp does ALL the effort. Patient does none of the effort to complete the activity. Or, the assistance of 2 or more helpers is required for the patient to complete the activity. If activity was not attempted, code reason: 7-Patient Refused. 9-Not Applicable-not attempted and the patient did not perform the activity before the current illness, exacerbation or injury. 10-Not Attempted due to Environmental Limitations-(lack of equipment, weather restraints, etc.). 88-Not Attempted due to Medical Conditions or Safety Concerns. Sit to Lying (QC): 5 Lying to Sitting/Side of Bed(Q: 5 Sit to Stand (QC): 3 (x 5 sets ) PT issued left platform FWW due to left hand surgery 07/31/20 and inability to use left hand. Patient able to stand without difficulty and does utilize right BKA on bed to stand erect Assessment Patient improved with mobility on this date. Patient reports he does not use prosthesis and performs a squat pivot transfer bed to powerchair in home. He does wear is in community. PT Short Term Goals Short Term Goals Time Frame: Jul 30, 2020 PT Detention Goals Detention Goals PT [employer] Goals Time Frame: Aug 10, 2020 Roll Left & Right (QC): 3 Sit to Lying (QC): 3 Lying-Sitting on Side/Bed(QC): 3 Sit to Stand (QC): 3 Chair/Nkd-ke-Vumvh Xfer(QC): 3 PT Plan Treatment/Plan Treatment Plan: Continue Plan of Care Treatment Plan: Bed Mobility, Education, Functional Activity Farshad, Functional Strength, Safety, Therapeutic Exercise, Transfers Treatment Duration: Aug 10, 2020 Frequency: 6 times per week Estimated Hrs Per Day: .25 hour per day Patient and/or Family Agrees t: Yes Time/GCodes Time In: 1015 Time Out: 1034 Total Billed Treatment Time: 19 Total Billed Treatment 1 visit FA 19 min ROSELYN FREEMAN PT Aug 01, 2020 11:40
--- NOTE | 2020-08-01 12:33 | Progress Note - Cardiology ---
Cardiology SOAP Progress Note Subjective: Lying in bed Bi-pap in place C/O SOB No c/o CP or palpitations Objective: I&O/Vital Signs 08/05/20 08/05/20 08/05/20 08/05/20 00:00 01:00 02:46 03:44 Temp 36.6 36.1 Pulse 68 67 69 Resp 19 17 B/P (MAP) 137/70 (92) 167/70 (102) Pulse Ox 94 90 95 O2 Delivery Nasal Cannula NIV CPAP NIV CPAP O2 Flow Rate 2.50 5.00 4.00 08/05/20 08/05/20 06:37 08:00 Temp 36.1 Pulse 70 68 Resp 20 B/P (MAP) 145/85 (105) Pulse Ox 93 O2 Delivery NIV CPAP O2 Flow Rate 4.00 08/04/20 23:59 Intake Total 1710 ml Output Total 575 ml Balance 1135 ml Weight (Pounds): 322 Weight (Ounces): 1.0 Weight (Calculated Kilograms): 146.090443 Constitutional: AAO x 3, well-developed, well-nourished Respiratory: No accessory muscle use; other (fair air entry, diminshed at the bases) Cardiovascular: regular rate-rhythm, S1 and S2, systolic murmur (soft ARACELY at card base) Gastrointestional: No tender; soft; No guarding, No rebound; audible bowel sounds Extremities: other (R BKA; Left hand with drsg in place, not removed); No clubbing, No cyanosis, No significant edema Neurologic/Psychiatric: other (seems to be able to move all limbs; not cooperative with exam) Skin: No rash on exposed areas, No ulcerations on exposed areas Results/Procedures: Labs Laboratory Tests 08/04/20 11:36: Glucometer 91 08/04/20 15:43: Glucometer 155H 08/04/20 20:03: Glucometer 163H 08/05/20 05:09: Glucometer 119H 08/05/20 05:35: White Blood Count 4.5, Red Blood Count 2.70L, Hemoglobin 7.5L, Hematocrit 24L, Mean Corpuscular Volume 87, Mean Corpuscular Hemoglobin 28, Mean Corpuscular Hemoglobin Concent 32, Red Cell Distribution Width 15.4H, Platelet Count 118L, Mean Platelet Volume 11.0, Immature Granulocyte % (Auto) 2, Neutrophils (%) (Auto) 73, Lymphocytes (%) (Auto) 15, Monocytes (%) (Auto) 9, Eosinophils (%) (Auto) 2, Basophils (%) (Auto) 0, Neutrophils # (Auto) 3.3, Lymphocytes # (Auto) 0.7L, Monocytes # (Auto) 0.4, Eosinophils # (Auto) 0.1, Basophils # (Auto) 0.0, Immature Granulocyte # (Auto) 0.1, Prothrombin Time 17.0H, INR Comment 1.3, Sodium Level 138, Potassium Level 4.4, Chloride Level 108H, Carbon Dioxide Level 21, Anion Gap 9, Blood Urea Nitrogen 33H, Creatinine 1.80H, Estimat Glomerular Filtration Rate 38, BUN/Creatinine Ratio 18, Glucose Level 115H, Calcium Level 8.2L, Phosphorus Level 3.5, Magnesium Level 2.5H Microbiology 07/31/20 Gram Stain - Final, Resulted 07/31/20 Anaerobic Culture, Resulted Pending 07/31/20 Surgical Culture - Final, Resulted Corynebacterium striatum Staphylococcus epidermidis Streptococcus mitis group No Susceptibility Performed 07/28/20 MRSA Screen - Final, Complete MRSA not isolated 07/28/20 Blood Culture - Final, Complete No growth A/P: Assessment: Sepsis 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 Acute (MARGY 2) on chronic (CKD 4) renal failure Mildly elevated troponin, probably type 2 ND due to renal failure and sepsis PAF H/o peripheral arterial disease, history of right BKA Coronary artery disease, history of multiple interventions, total of 8 stents, had bypass surgery using single vessel after failed multiple attempts for intervention at [facility] in 2017. No intervention since, he says Echo on 07/30/20: LVEF 40-45%, mild global hypokinesis that is somewhat prominent at the apex, mild to mod dilatation of the left atrium Hypertension Hyperlipidemia, intolerant to multiple statin COPD Obesity and TREE - CPAP tx Diabetes mellitus II Carotid stenosis, totally occluded left ICA, less than 40 percent on the right side Plan: * Monitor labs * Renal function improved today * Warfarin has been resumed - monitor INR closely and adjust as indicated * Post op anemia - management per surgical/medical services TISH ARCEO DAIRY SPECIALIST Aug 01, 2020 12:33
--- NOTE | 2020-08-01 14:17 | Progress Note - Hospitalist ---
Subjective HPI/CC On Admission Date Seen by Provider: Aug 01, 2020 Time Seen by Provider: 14:11 Bin Newberry is a 69 year old male with PMH HTN, T2DM on insulin, CAD s/p CABG, PVD s/p BKA, atrial fibrillation on coumadin, BPH, who presented with shortness of breath. He resides at a half-way. He was reportedly found to have a low oxygen saturation. EMS was called and placed him on CPAP. He was placed on BiPAP in the ER. Upon my examination, he is wearing BiPAP. He will awaken for brief periods, but is uncooperative with my exam. Subjective/Events-last exam Pt reports feeling ok this morning but tired. Didn't sleep well last night. Discussed importance of being up and awake today and working with therapy to get stronger and better. Objective Exam Vital Signs Vital Signs Date Time Temp Pulse Resp B/P (MAP) Pulse Ox O2 Delivery O2 Flow Rate FiO2 08/01/20 12:31 64 08/01/20 11:35 36.2 20 121/58 (79) 93 NIV CPAP 08/01/20 07:38 4.00 08/01/20 06:30 30 Capillary Refill : Less Than 3 Seconds General Appearance: No Apparent Distress, Chronically ill, Obese Respiratory: No Respiratory Distress, Decreased Breath Sounds, Other (CPAP in place) Cardiovascular: Regular Rate, Rhythm, No Murmur Gastrointestinal: Normal Bowel Sounds, Non Tender, Soft Extremity: No Calf Tenderness, No Pedal Edema Neurologic/Psychiatric: Alert, Oriented x3 Results/Procedures Lab Laboratory Tests 08/01/20 06:06 Patient resulted labs reviewed. Imaging: Reviewed Imaging Report Assessment/Plan Assessment and Plan Assess & Plan/Chief Complaint Acute on chronic respiratory failure with hypoxia Person under investigation for COVID-19 Sepsis Possible pneumonia NSTEMI Osteomyelitis of left finger Continue abx, Vanc and Zosyn Ortho consulted, appreciate recs POD #1 COVID LEV negative, PCR negative Cardiology consulted, appreciate recs Pulm consulted, appreciate recs Atrial fibrillation on Coumadin Resume anticoagulation now that he is postop T2DM Decrease to 40 units BID as BS done to 69 this AM Sliding scale insulin C HTN BPH Continue home meds, BP well controlled Morbid obesity Clinically significant, no acute management needs Debility PT/OT May need SNF prior to DC DVT ppx: lovenox as above Diagnosis/Problems Diagnosis/Problems (1) Person under investigation for COVID-19 Status: Acute (2) PNA (pneumonia) Status: Acute Qualifiers: Pneumonia type: due to unspecified organism (3) NSTEMI (non-ST elevation myocardial infarction) Status: Acute (4) Sepsis Status: Acute (5) CHF (congestive heart failure) Status: Acute (6) Morbid obesity Status: Chronic (7) Finger osteomyelitis, left Status: Acute (8) Respiratory failure Status: Acute (9) Diabetes mellitus, insulin dependent (IDDM), uncontrolled Status: Acute (10) TREE (obstructive sleep apnea) Status: Chronic (11) Debility (12) Renal insufficiency Status: Acute (13) CAD (coronary artery disease) Status: Chronic Clinical Quality Measures DVT/VTE Risk/Contraindication: Risk Factor Score Per Nursin RFS Level Per Nursing on Admit: 4+=Very High ANTONIO MICHAELS MD Aug 01, 2020 14:17
[2020-08-01] MEDS ORDERED: VANCOMYCIN 1,750 MG/NS 500 ML IVPB IV NR ×2 (15:00)
[2020-08-01] MEDS: TAMSULOSIN 0.4 MG (FLOMAX) CAP PO SCH (17:31)
[2020-08-01] MEDS: warFARin 10 MG (COUMADIN) TAB PO SCH (17:31)
[2020-08-01] MEDS: ENOXAPARIN 300 MG/3 ML (LOVENOX) MULTI-DOSE VIAL SQ SCH (21:02)
[2020-08-02 05:21] LABS: BASOPHILS % (AUTO) 0 % (0-10); EOSINOPHILS # (AUTO) 0.1 10^3/uL (0.0-0.3); EOSINOPHILS % (AUTO) 3 % (0-10); HEMATOCRIT 24 % (40-54); HEMOGLOBIN 7.5 g/dL (13.3-17.7); LYMPHOCYTES # (AUTO) 0.6 10^3/uL (1.0-4.0); LYMPHOCYTES % (AUTO) 17 % (12-44); MEAN CORPUSCULAR HEMOGLOBIN 27 pg (25-34); MEAN CORPUSCULAR HGB CONC 31 g/dL (32-36); MEAN CORPUSCULAR VOLUME 89 fL (80-99); MEAN PLATELET VOLUME 11.2 fL (9.0-12.2); MONOCYTES # (AUTO) 0.4 10^3/uL (0.0-1.0); MONOCYTES % (AUTO) 10 % (0-12); NEUTROPHILS # (AUTO) 2.7 10^3/uL (1.8-7.8); NEUTROPHILS % (AUTO) 70 % (42-75); PLATELET COUNT 120 10^3/uL (130-400); WHITE BLOOD COUNT 3.8 10^3/uL (4.3-11.0)
[2020-08-02 05:37] LABS: INR 1.5 (0.8-1.4); PROTHROMBIN TIME PATIENT 18.8 SEC (12.2-14.7)
[2020-08-02 05:38] LABS: POTASSIUM 4.2 MMOL/L (3.6-5.0)
[2020-08-02 05:39] LABS: CALCIUM 8.8 MG/DL (8.5-10.1)
[2020-08-02 05:43] LABS: CREATININE SERUM 2.12 MG/DL (0.60-1.30); PHOSPHORUS 3.9 MG/DL (2.3-4.7)
[2020-08-02 05:45] LABS: MAGNESIUM 2.4 MG/DL (1.6-2.4)
[2020-08-02] MEDS: RT-ALBUTEROL INHALER HFA (VENTOLIN HFA) 18 GM IH SCH ×4 (05:55→21:34)
[2020-08-02] MEDS: inSUlin ASPART (NovoLOG) 1 UNIT/0.01 ML (CHARGE PER UNIT) SC SCH ×4 (05:57→21:59)
[2020-08-02] MEDS: hydrALAZINE (APRESOLINE) 25 MG TAB PO SCH ×3 (05:59→21:59)
[2020-08-02] MEDS ORDERED: PIPERACILLIN/TAZO 4.5 GM VIAL (ZOSYN) IV ONE (06:07)
[2020-08-02] MEDS ORDERED: NS (IVPB) 100 ML ONE (06:08)
[2020-08-02] MEDS: PIPERACILLIN/TAZO 4.5 GM/NS 100 ML IV SCH ×2 (06:23)
[2020-08-02] MEDS: CATHETER FLUSH 10 ML SYR IV SCH ×3 (06:24→22:00)
--- NOTE | 2020-08-02 09:17 | Progress Note ---
Standard Progress Note Progress Notes/Assess & Plan Date Seen by a Provider: Aug 02, 2020 Time Seen by a Provider: 09:14 Progress/Assessment & Plan patient seen and evaluated consult dictated plan for amputation of LLF at [facility] tomorrow Final Diagnosis no complaints sensitivities pending LLF incision well approximated with brisk cap refill. Mild bleeding s/p LLF amputation reinforce bandage as necessary will follow up as outpatient ELMO GRIFFITHS MD Aug 02, 2020 09:17
[2020-08-02] MEDS: NYSTATIN OINTMENT 30 GM TUBE TOP SCH ×2 (09:39→22:00)
[2020-08-02] MEDS: amLODIPine 10 MG (NORVASC) TAB PO SCH (09:39)
[2020-08-02] MEDS: CARVEDILOL 12.5 MG (COREG) TABLET PO SCH ×2 (09:39→18:25)
[2020-08-02] MEDS: ASPIRIN 81 MG CHEW (CHILDREN'S ASA) PO SCH (09:39)
[2020-08-02] MEDS: ENOXAPARIN 300 MG/3 ML (LOVENOX) MULTI-DOSE VIAL SQ SCH ×2 (09:39→21:59)
[2020-08-02] MEDS: MICONAZOLE 2% POWDER (DESENEX AF) 90 GM TOP SCH ×2 (09:40→22:00)
[2020-08-02] MEDS: ACETAMINOPHEN 325 MG TABLET PO PRN ×2 (09:42→22:05)
--- NOTE | 2020-08-02 10:23 | Progress Note - Hospitalist ---
Subjective HPI/CC On Admission Date Seen by Provider: Aug 02, 2020 Time Seen by Provider: 10:21 Bin Newberry is a 69 year old male with PMH HTN, T2DM on insulin, CAD s/p CABG, PVD s/p BKA, atrial fibrillation on coumadin, BPH, who presented with shortness of breath. He resides at a intermediate. He was reportedly found to have a low oxygen saturation. EMS was called and placed him on CPAP. He was placed on BiPAP in the ER. Upon my examination, he is wearing BiPAP. He will awaken for brief periods, but is uncooperative with my exam. Subjective/Events-last exam Pt reports doing better today. Got prosthetic leg and hopeful to use it with theapy. Discussed importance of doing as much with therapy as possible to get him home. Also importance of getting off CPAP during the day. Blood sugar low this morning with just 20 units of Levemir last night. States his diet is much different here than it is at home. Objective Exam Vital Signs Vital Signs Date Time Temp Pulse Resp B/P (MAP) Pulse Ox O2 Delivery O2 Flow Rate FiO2 08/02/20 10:18 95 NIV CPAP 4.00 08/02/20 08:00 36.0 70 20 120/58 (78) 08/01/20 06:30 30 Capillary Refill : Less Than 3 Seconds General Appearance: No Apparent Distress, Chronically ill, Obese Results/Procedures Lab Laboratory Tests 08/02/20 04:55 Patient resulted labs reviewed. Imaging: Reviewed Imaging Report Assessment/Plan Assessment and Plan Assess & Plan/Chief Complaint Acute on chronic respiratory failure with hypoxia Person under investigation for COVID-19 Sepsis Possible pneumonia NSTEMI Osteomyelitis of left finger Continue abx, Vanc and Zosyn Ortho consulted, appreciate recs POD #1 COVID LEV negative, PCR negative Cardiology consulted, appreciate recs Pulm consulted, appreciate recs Surgical culture growing corynebacterium Atrial fibrillation on Coumadin Continue home meds T2DM Decrease to just 10 units of Levemir at night Sliding scale insulin C HTN BPH Continue home meds, BP well controlled Morbid obesity Clinically significant, no acute management needs Debility PT/OT May need SNF prior to DC DVT ppx: lovenox as above Diagnosis/Problems Diagnosis/Problems (1) Person under investigation for COVID-19 Status: Acute (2) PNA (pneumonia) Status: Acute Qualifiers: Pneumonia type: due to unspecified organism (3) NSTEMI (non-ST elevation myocardial infarction) Status: Acute (4) Sepsis Status: Acute (5) CHF (congestive heart failure) Status: Acute (6) Morbid obesity Status: Chronic (7) Finger osteomyelitis, left Status: Acute (8) Respiratory failure Status: Acute (9) Diabetes mellitus, insulin dependent (IDDM), uncontrolled Status: Acute (10) TREE (obstructive sleep apnea) Status: Chronic (11) Debility (12) Renal insufficiency Status: Acute (13) CAD (coronary artery disease) Status: Chronic Clinical Quality Measures DVT/VTE Risk/Contraindication: Risk Factor Score Per Nursin RFS Level Per Nursing on Admit: 4+=Very High ANTONIO MICHAELS MD Aug 02, 2020 10:23
--- NOTE | 2020-08-02 11:36 | Physical Therapy Progress Note ---
Therapy Progress Note Patient refuses physical therapy twice this morning. Patient educated on the benefits of PT but he continues to adamantly refuse. Will attempt again tomorrow. BETTY STRONG PT Aug 02, 2020 11:36
--- NOTE | 2020-08-02 16:07 | Progress Note - Cardiology ---
Cardiology SOAP Progress Note Subjective: Gen malaise Shortness of breath with exertion, unchanged No cp or palp or syncope No n/v Objective: I&O/Vital Signs 08/02/20 08/02/20 08/02/20 08/02/20 06:43 08:00 08:00 10:18 Temp 36.0 Pulse 79 70 Resp 20 B/P (MAP) 120/58 (78) Pulse Ox 95 97 95 O2 Delivery NIV CPAP Nasal Cannula NIV CPAP O2 Flow Rate 4.00 4.00 4.00 08/02/20 08/02/20 12:44 15:01 Pulse 61 Pulse Ox 95 O2 Delivery NIV CPAP O2 Flow Rate 4.00 08/02/20 00:00 Intake Total 1885 ml Output Total 950 ml Balance 935 ml Weight (Pounds): 322 Weight (Ounces): 1.0 Weight (Calculated Kilograms): 146.516156 Constitutional: AAO x 3, well-developed, well-nourished Respiratory: No accessory muscle use; other (fair air entry, diminshed at the bases) Cardiovascular: regular rate-rhythm, S1 and S2, systolic murmur (soft ARACELY at card base) Gastrointestional: No tender; soft; No guarding, No rebound; audible bowel s ounds Extremities: other (R BKA; Left hand with drsg in place, not removed); No clubbing, No cyanosis, No significant edema Neurologic/Psychiatric: other (seems to be able to move all limbs; not cooperative with exam) Skin: No rash on exposed areas, No ulcerations on exposed areas Results/Procedures: Labs Laboratory Tests 08/01/20 16:11: Glucometer 75 08/01/20 20:13: Glucometer 132H 08/02/20 04:55: White Blood Count 3.8L, Red Blood Count 2.74L, Hemoglobin 7.5L, Hematocrit 24L, Mean Corpuscular Volume 89, Mean Corpuscular Hemoglobin 27, Mean Corpuscular Hemoglobin Concent 31L, Red Cell Distribution Width 15.0H, Platelet Count 120L, Mean Platelet Volume 11.2, Immature Granulocyte % (Auto) 1, Neutrophils (%) (Auto) 70, Lymphocytes (%) (Auto) 17, Monocytes (%) (Auto) 10, Eosinophils (%) (Auto) 3, Basophils (%) (Auto) 0, Neutrophils # (Auto) 2.7, Lymphocytes # (Auto) 0.6L, Monocytes # (Auto) 0.4, Eosinophils # (Auto) 0.1, Basophils # (Auto) 0.0, Immature Granulocyte # (Auto) 0.0, Prothrombin Time 18.8H, INR Comment 1.5H, Sodium Level 140, Potassium Level 4.2, Chloride Level 107, Carbon Dioxide Level 24, Anion Gap 9, Blood Urea Nitrogen 40H, Creatinine 2.12H, Estimat Glomerular Filtration Rate 31, BUN/Creatinine Ratio 19, Glucose Level 65L, Calcium Level 8.8, Phosphorus Level 3.9, Magnesium Level 2.4 08/02/20 10:52: Glucometer 143H 08/02/20 12:33: Glucometer 203H Microbiology 07/31/20 Gram Stain - Final, Resulted 07/31/20 Anaerobic Culture, Resulted Pending 07/31/20 Surgical Culture - Preliminary, Resulted Corynebacterium striatum 07/28/20 MRSA Screen - Final, Complete MRSA not isolated 07/28/20 Blood Culture - Preliminary, Resulted No growth Laboratory Tests 08/01/20 06:06 08/02/20 04:55 A/P: Assessment: Sepsis 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 Acute (MARGY 2) on chronic (CKD 4) renal failure Mildly elevated troponin, probably type 2 [place] due to renal failure and sepsis PAF H/o peripheral arterial disease, history of right BKA Coronary artery disease, history of multiple interventions, total of 8 stents, had bypass surgery using single vessel after failed multiple attempts for intervention at [facility] in 2017. No intervention since, he says Echo on 07/30/20: LVEF 40-45%, mild global hypokinesis that is somewhat promin ent at the apex, mild to mod dilatation of the left atrium Hypertension Hyperlipidemia, intolerant to multiple statin COPD Obesity and TREE - CPAP tx Diabetes mellitus II Carotid stenosis, totally occluded left ICA, less than 40 percent on the right side Plan: * Monitor labs * Warfarin has been resumed but INR still subtherapeutic - monitor INR closely and adjust as indicated * Post op anemia - management per surgical/medical services PIERCE JOHN MD FACP FAC CCDS Aug 02, 2020 16:07
[2020-08-02] MEDS: warFARin 10 MG (COUMADIN) TAB PO SCH (18:25)
[2020-08-02] MEDS: TAMSULOSIN 0.4 MG (FLOMAX) CAP PO SCH (18:25)
[2020-08-02] MEDS: warFARin 5 MG (COUMADIN) TAB PO SCH (18:26)
[2020-08-03] MEDS: inSUlin ASPART (NovoLOG) 1 UNIT/0.01 ML (CHARGE PER UNIT) SC SCH ×4 (05:50→20:38)
[2020-08-03] MEDS: hydrALAZINE (APRESOLINE) 25 MG TAB PO SCH ×3 (06:15→22:24)
[2020-08-03] MEDS: CATHETER FLUSH 10 ML SYR IV SCH ×3 (06:17→19:32)
[2020-08-03] MEDS: RT-ALBUTEROL INHALER HFA (VENTOLIN HFA) 18 GM IH SCH ×3 (07:59→21:41)
[2020-08-03 08:02] LABS: BASOPHILS % (AUTO) 0 % (0-10); EOSINOPHILS # (AUTO) 0.1 10^3/uL (0.0-0.3); EOSINOPHILS % (AUTO) 2 % (0-10); HEMATOCRIT 24 % (40-54); HEMOGLOBIN 7.4 g/dL (13.3-17.7); LYMPHOCYTES # (AUTO) 0.7 10^3/uL (1.0-4.0); LYMPHOCYTES % (AUTO) 16 % (12-44); MEAN CORPUSCULAR HEMOGLOBIN 28 pg (25-34); MEAN CORPUSCULAR HGB CONC 31 g/dL (32-36); MEAN CORPUSCULAR VOLUME 88 fL (80-99); MEAN PLATELET VOLUME 11.4 fL (9.0-12.2); MONOCYTES # (AUTO) 0.5 10^3/uL (0.0-1.0); MONOCYTES % (AUTO) 10 % (0-12); NEUTROPHILS # (AUTO) 3.2 10^3/uL (1.8-7.8); NEUTROPHILS % (AUTO) 71 % (42-75); PLATELET COUNT 151 10^3/uL (130-400); WHITE BLOOD COUNT 4.5 10^3/uL (4.3-11.0)
[2020-08-03] MEDS: amLODIPine 10 MG (NORVASC) TAB PO SCH (08:24)
[2020-08-03] MEDS: CARVEDILOL 12.5 MG (COREG) TABLET PO SCH ×2 (08:25→18:42)
[2020-08-03] MEDS: ASPIRIN 81 MG CHEW (CHILDREN'S ASA) PO SCH (08:25)
[2020-08-03] MEDS: NYSTATIN OINTMENT 30 GM TUBE TOP SCH ×2 (08:25→19:31)
[2020-08-03] MEDS: ENOXAPARIN 300 MG/3 ML (LOVENOX) MULTI-DOSE VIAL SQ SCH (08:25)
[2020-08-03] MEDS: ACETAMINOPHEN 325 MG TABLET PO PRN ×2 (08:25→23:30)
[2020-08-03] MEDS: MICONAZOLE 2% POWDER (DESENEX AF) 90 GM TOP SCH ×2 (08:25→19:32)
[2020-08-03 08:29] LABS: INR 1.8 (0.8-1.4); PROTHROMBIN TIME PATIENT 21.6 SEC (12.2-14.7)
[2020-08-03 08:30] LABS: CALCIUM 8.5 MG/DL (8.5-10.1)
[2020-08-03 08:34] LABS: PHOSPHORUS 3.5 MG/DL (2.3-4.7)
[2020-08-03 08:35] LABS: CREATININE SERUM 1.89 MG/DL (0.60-1.30)
[2020-08-03 08:38] LABS: MAGNESIUM 2.4 MG/DL (1.6-2.4)
--- NOTE | 2020-08-03 11:07 | Physical Therapy Daily Note ---
PT Daily Note-Current Subjective Patient in bed pre tx, agrees to PT, has unrated pain in left hand. Patient now has his prosthetic leg and agrees to try some ambulation Appearance Patient in bed post tx with nurse call, phone, tray, all needs met. Mental Status Patient Orientation: Normal For Age Attachments: Oxygen Transfers SCALE: Activities may be completed with or without assistive devices. 4-Awfglubsxp-ubyeedo completes the activity by him/herself with no assistance from a helper. 5-Set-up or Clean-up Assistance-helper sets up or cleans up; patient completes activity. Brohard assists only prior to or following the activity. 4-Supervision or Touching Assistance-helper provides verbal cues and/or touching/steadying and/or contact guard assistance as patient completes activity. Assistance may be provided throughout the activity or intermittently. 3-Partial/Moderate Assistance-helper does LESS THAN HALF the effort. Brohard lifts, holds or supports trunk or limbs, but provides less than half the effort. 2-Substantial/Maximal Assistance-helper does MORE THAN HALF the effort. Brohard lifts or holds trunk or limbs and provides more than half the effort. 2-Uiulbqwmq-bedalw does ALL the effort. Patient does none of the effort to complete the activity. Or, the assistance of 2 or more helpers is required for the patient to complete the activity. If activity was not attempted, code reason: 7-Patient Refused. 9-Not Applicable-not attempted and the patient did not perform the activity b efore the current illness, exacerbation or injury. 10-Not Attempted due to Environmental Limitations-(lack of equipment, weather restraints, etc.). 88-Not Attempted due to Medical Conditions or Safety Concerns. Roll Left & Right (QC): 4 Sit to Lying (QC): 3 Lying to Sitting/Side of Bed(Q: 3 Sit to Stand (QC): 4 Min assist for supine <-> sit, don prosthetic leg, elevate bed, patient stands with CGA and is able to ambulate about 3' forward and then back x2, sits and rests and then ambulates 3' forward and back one more time. Treatments bed mobility, ambulation Assessment Current Status: Fair Progress patient is able to ambulate short distances with his prosthetic leg PT Short Term Goals Short Term Goals Time Frame: Jul 30, 2020 PT Residential Goals Transfer Table Operator Goals PT Residential Goals Time Frame: Aug 10, 2020 Roll Left & Right (QC): 3 Sit to Lying (QC): 3 Lying-Sitting on Side/Bed(QC): 3 Sit to Stand (QC): 3 Chair/Rge-rq-Xmnoa Xfer(QC): 3 PT Plan Problem List Problem List: Activity Tolerance, Functional Strength, Safety, Balance, Gait, Transfer, Bed Mobility, ROM Treatment/Plan Treatment Plan: Continue Plan of Care Treatment Plan: Bed Mobility, Education, Functional Activity Farshad, Functional Strength, Safety, Therapeutic Exercise, Transfers Treatment Duration: Aug 10, 2020 Frequency: 6 times per week Estimated Hrs Per Day: .25 hour per day Patient and/or Family Agrees t: Yes Safety Risks/Education Patient Education: Gait Training, Transfer Techniques, Correct Positioning, Safety Issues Teaching Recipient: Patient Teaching Methods: Demonstration, Discussion Response to Teaching: Reinforcement Needed Time/GCodes Time In: 1027 Time Out: 1046 Total Billed Treatment Time: 19 Total Billed Treatment 1 visit FA 19' BETTY STRONG PT Aug 03, 2020 11:07
--- NOTE | 2020-08-03 12:09 | Progress Note - Hospitalist ---
Subjective HPI/CC On Admission Date Seen by Provider: Aug 03, 2020 Time Seen by Provider: 12:06 Bin Newberry is a 69 year old male with PMH HTN, T2DM on insulin, CAD s/p CABG, PVD s/p BKA, atrial fibrillation on coumadin, BPH, who presented with shortness of breath. He resides at a skilled nursing. He was reportedly found to have a low oxygen saturation. EMS was called and placed him on CPAP. He was placed on BiPAP in the ER. Upon my examination, he is wearing BiPAP. He will awaken for brief periods, but is uncooperative with my exam. Subjective/Events-last exam Pt reports feeling better today. no complaints. Just had a bed bath. Discussed why he didn't work with therapy yesterday and he states it was because he was tired. Reminded him that if he wants to return to his ILF he needs to work with therapy or will have to go to a skilled nursing. He agrees and knows his prosthetic leg is here to assist him with that. Objective Exam Vital Signs Vital Signs Date Time Temp Pulse Resp B/P (MAP) Pulse Ox O2 Delivery O2 Flow Rate FiO2 08/03/20 08:00 36.0 68 16 145/69 (94) 96 NIV CPAP 4.00 08/01/20 06:30 30 Capillary Refill : Less Than 3 SecondsLess Than 3 Seconds General Appearance: No Apparent Distress, Chronically ill, Obese Respiratory: Lungs Clear, No Respiratory Distress Cardiovascular: Regular Rate, Rhythm, No Murmur Gastrointestinal: Normal Bowel Sounds, Non Tender, Soft Extremity: Other (s/p R PKA, left hand wrapped in surgical dressing) Neurologic/Psychiatric: Alert, Oriented x3 Results/Procedures Lab Laboratory Tests 08/03/20 07:52 Patient resulted labs reviewed. Imaging: Reviewed Imaging Report Assessment/Plan Assessment and Plan Assess & Plan/Chief Complaint Acute on chronic respiratory failure with hypoxia Person under investigation for COVID-19 Sepsis Possible pneumonia NSTEMI Osteomyelitis of left finger Continue abx, Vanc and Zosyn until sensitivities available Ortho consulted, appreciate recs POD #2 COVID LEV negative, PCR negative Cardiology consulted, appreciate recs Pulm consulted, appreciate recs Surgical culture growing corynebacterium and staph epidermidis Atrial fibrillation on Coumadin Continue home meds Hold Lovenox this evening as INR up to 1.8 today and having significant oozing with surgical site Will likely be at therapeutic INR tomorrow T2DM Did better with 10 unit sof Levemir, BS well controlled now Sliding scale insulin C HTN BPH Continue home meds, BP well controlled Morbid obesity Clinically significant, no acute management needs Debility PT/OT May need SNF prior to DC DVT ppx: lovenox as above Diagnosis/Problems Diagnosis/Problems (1) Person under investigation for COVID-19 Status: Acute (2) PNA (pneumonia) Status: Acute Qualifiers: Pneumonia type: due to unspecified organism (3) NSTEMI (non-ST elevation myocardial infarction) Status: Acute (4) Sepsis Status: Acute (5) CHF (congestive heart failure) Status: Acute (6) Morbid obesity Status: Chronic (7) Finger osteomyelitis, left Status: Acute (8) Respiratory failure Status: Acute (9) Diabetes mellitus, insulin dependent (IDDM), uncontrolled Status: Acute (10) TREE (obstructive sleep apnea) Status: Chronic (11) Debility (12) Renal insufficiency Status: Acute (13) CAD (coronary artery disease) Status: Chronic Clinical Quality Measures DVT/VTE Risk/Contraindication: Risk Factor Score Per Nursin RFS Level Per Nursing on Admit: 4+=Very High ANTONIO MICHAELS MD Aug 03, 2020 12:09
--- NOTE | 2020-08-03 12:47 | Progress Note - Cardiology ---
Cardiology SOAP Progress Note Subjective: No cp or palp or syncope. Chronic shortness of breath Gen malaise No n/v Slow bleeding from the finger stump Objective: I&O/Vital Signs 08/03/20 08/03/20 08/03/20 08/03/20 01:00 07:00 07:59 08:00 Pulse 64 67 Pulse Ox 97 95 O2 Delivery NIV CPAP NIV CPAP O2 Flow Rate 4.00 4.00 08/03/20 08/03/20 08:00 12:26 Temp 36.0 Pulse 68 64 Resp 16 B/P (MAP) 145/69 (94) Pulse Ox 96 O2 Delivery NIV CPAP O2 Flow Rate 4.00 08/02/20 23:59 Intake Total 1585 ml Output Total 875 ml Balance 710 ml Weight (Pounds): 322 Weight (Ounces): 1.0 Weight (Calculated Kilograms): 146.493285 Constitutional: AAO x 3, well-developed, well-nourished Respiratory: No accessory muscle use; other (fair air entry, diminshed at the bases) Cardiovascular: regular rate-rhythm, S1 and S2, systolic murmur (soft ARACELY at card base) Gastrointestional: No tender; soft; No guarding, No rebound; audible bowel sounds Extremities: other (R BKA; Left hand with drsg in place, not removed); No cl ubbing, No cyanosis, No significant edema Neurologic/Psychiatric: other (seems to be able to move all limbs; not cooperative with exam) Skin: No rash on exposed areas, No ulcerations on exposed areas Results/Procedures: Labs Laboratory Tests 08/02/20 16:07: Glucometer 175H 08/02/20 21:10: Glucometer 180H 08/03/20 05:09: Glucometer 118H 08/03/20 07:52: White Blood Count 4.5, Red Blood Count 2.69L, Hemoglobin 7.4L, Hematocrit 24L, Mean Corpuscular Volume 88, Mean Corpuscular Hemoglobin 28, Mean Corpuscular Hemoglobin Concent 31L, Red Cell Distribution Width 15.4H, Platelet Count 151, Mean Platelet Volume 11.4, Immature Granulocyte % (Auto) 0, Neutrophils (%) (Auto) 71, Lymphocytes (%) (Auto) 16, Monocytes (%) (Auto) 10, Eosinophils (%) (Auto) 2, Basophils (%) (Auto) 0, Neutrophils # (Auto) 3.2, Lymphocytes # (Auto) 0.7L, Monocytes # (Auto) 0.5, Eosinophils # (Auto) 0.1, Basophils # (Auto) 0.0, Immature Granulocyte # (Auto) 0.0, Prothrombin Time 21.6H, INR Comment 1.8H, Sodium Level 140, Potassium Level 4.0, Chloride Level 110H, Carbon Dioxide Level 21, Anion Gap 9, Blood Urea Nitrogen 34H, Creatinine 1.89H, Estimat Glomerular Filtration Rate 36, BUN/Creatinine Ratio 18, Glucose Level 113H, Calcium Level 8.5, Phosphorus Level 3.5, Magnesium Level 2.4 08/03/20 11:03: Glucometer 168H Microbiology 07/31/20 Gram Stain - Final, Resulted 07/31/20 Anaerobic Culture, Resulted Pending 07/31/20 Surgical Culture - Preliminary, Resulted Corynebacterium striatum Staphylococcus epidermidis Testing In Progress 07/28/20 MRSA Screen - Final, Complete MRSA not isolated 07/28/20 Blood Culture - Final, Complete No growth Laboratory Tests 08/02/20 04:55 08/03/20 07:52 A/P: Assessment: Sepsis due to osteomyelitis, treated with left long finger amputation at the PIP joint, oozing blood Acute (MARGY 2) on chronic (CKD 4) renal failure Mildly elevated troponin, probably type 2 [place] due to renal failure and sepsis PAF H/o peripheral arterial disease, history of right BKA Coronary artery disease, history of multiple interventions, total of 8 stents, had bypass surgery using single vessel after failed multiple attempts for intervention at [facility] in 2017. No intervention since, he says Echo on 07/30/20: LVEF 40-45%, mild global hypokinesis that is somewhat prominent at the apex, mild to mod dilatation of the left atrium Hypertension Hyperlipidemia, intolerant to multiple statin COPD Obesity and TREE - CPAP tx Diabetes mellitus II Carotid stenosis, totally occluded left ICA, less than 40 percent on the right side Plan: * Monitor labs * Warfarin has been resumed but INR still subtherapeutic - monitor INR closely and adjust as indicated * Lovenox d/c'd due to continuous oozing from surgical site * Post op anemia and blood oozing from surgical site - management per surgical/medical services PIERCE JOHN MD FACP FAC CCDS Aug 03, 2020 12:47
[2020-08-03] MEDS: warFARin 10 MG (COUMADIN) TAB PO SCH (18:00)
[2020-08-03] MEDS: TAMSULOSIN 0.4 MG (FLOMAX) CAP PO SCH (18:42)
[2020-08-04] VITALS (13 sets, daily range): BP systolic 111–168; BP diastolic 60–78
[2020-08-04] MEDS: RT-ALBUTEROL INHALER HFA (VENTOLIN HFA) 18 GM IH SCH ×4 (01:51→20:53)
[2020-08-04 05:27] LABS: BASOPHILS % (AUTO) 0 % (0-10); EOSINOPHILS # (AUTO) 0.1 10^3/uL (0.0-0.3); EOSINOPHILS % (AUTO) 3 % (0-10); HEMATOCRIT 21 % (40-54); LYMPHOCYTES # (AUTO) 0.8 10^3/uL (1.0-4.0); LYMPHOCYTES % (AUTO) 16 % (12-44); MEAN CORPUSCULAR HEMOGLOBIN 28 pg (25-34); MEAN CORPUSCULAR HGB CONC 32 g/dL (32-36); MEAN CORPUSCULAR VOLUME 87 fL (80-99); MEAN PLATELET VOLUME 11.4 fL (9.0-12.2); MONOCYTES # (AUTO) 0.5 10^3/uL (0.0-1.0); MONOCYTES % (AUTO) 10 % (0-12); NEUTROPHILS # (AUTO) 3.7 10^3/uL (1.8-7.8); NEUTROPHILS % (AUTO) 71 % (42-75); PLATELET COUNT 150 10^3/uL (130-400); WHITE BLOOD COUNT 5.2 10^3/uL (4.3-11.0)
[2020-08-04 05:33] LABS: HEMOGLOBIN 6.6 g/dL (13.3-17.7)
[2020-08-04 05:37] LABS: POTASSIUM 4.3 MMOL/L (3.6-5.0)
[2020-08-04 05:38] LABS: CALCIUM 8.3 MG/DL (8.5-10.1)
[2020-08-04 05:43] LABS: CREATININE SERUM 1.99 MG/DL (0.60-1.30); PHOSPHORUS 3.5 MG/DL (2.3-4.7)
[2020-08-04 05:45] LABS: MAGNESIUM 2.4 MG/DL (1.6-2.4)
[2020-08-04] MEDS: inSUlin ASPART (NovoLOG) 1 UNIT/0.01 ML (CHARGE PER UNIT) SC SCH ×4 (05:54→20:52)
[2020-08-04] MEDS: CATHETER FLUSH 10 ML SYR IV SCH ×3 (05:55→20:53)
[2020-08-04] MEDS: hydrALAZINE (APRESOLINE) 25 MG TAB PO SCH ×3 (05:55→20:51)
[2020-08-04 05:56] LABS: INR 1.6 (0.8-1.4); PROTHROMBIN TIME PATIENT 19.2 SEC (12.2-14.7)
[2020-08-04] MEDS ORDERED: NS IV 500 ML 500 ML IV SCH (06:00)
--- NOTE | 2020-08-04 06:55 | Progress Note - Hospitalist ---
Subjective HPI/CC On Admission Date Seen by Provider: Aug 04, 2020 Time Seen by Provider: 06:52 Bin Newberry is a 69 year old male with PMH HTN, T2DM on insulin, CAD s/p CABG, PVD s/p BKA, atrial fibrillation on coumadin, BPH, who presented with shortness of breath. He resides at a residential. He was reportedly found to have a low oxygen saturation. EMS was called and placed him on CPAP. He was placed on BiPAP in the ER. Upon my examination, he is wearing BiPAP. He will awaken for brief periods, but is uncooperative with my exam. Subjective/Events-last exam Pt reports doing ok. Was sleeping when I entered room and startled awake. Did better with therapy yesterday. Only complaint is about being cold so I covered him with a blanket. Objective Exam Vital Signs Vital Signs Date Time Temp Pulse Resp B/P (MAP) Pulse Ox O2 Delivery O2 Flow Rate FiO2 08/04/20 03:40 36.1 70 22 143/72 (95) 93 NIV CPAP 4.00 08/01/20 06:30 30 Capillary Refill : Less Than 3 SecondsLess Than 3 Seconds General Appearance: No Apparent Distress, Chronically ill, Obese Respiratory: Lungs Clear, Other (on CPAP) Cardiovascular: Regular Rate, Rhythm, No Murmur Extremity: Other (s/p right BKA, left hand dressed in surgical dressing with some blood noted) Neurologic/Psychiatric: Alert, Oriented x3 Results/Procedures Lab Laboratory Tests 08/03/20 07:52 08/04/20 05:00 Patient resulted labs reviewed. Imaging: Reviewed Imaging Report Assessment/Plan Assessment and Plan Assess & Plan/Chief Complaint Acute on chronic respiratory failure with hypoxia Person under investigation for COVID-19 Sepsis Possible pneumonia NSTEMI Osteomyelitis of left finger Continue abx, Vanc and Zosyn until sensitivities available Ortho consulted, appreciate recs POD #3 COVID LEV negative, PCR negative Cardiology consulted, appreciate recs Pulm consulted, appreciate recs Surgical culture growing corynebacterium and staph epidermidis Atrial fibrillation on Coumadin Anemia- postoperative Continue home meds Lovenox on hold due to anemia and post surgical bleeding 1 unit pRBCs ordered T2DM Continue Levemir 10 units, BS well controlled now Sliding scale insulin C HTN BPH Continue home meds, BP well controlled Morbid obesity Clinically significant, no acute management needs Debility PT/OT May need SNF prior to DC services coordinator consulted DVT ppx: lovenox as above Diagnosis/Problems Diagnosis/Problems (1) Person under investigation for COVID-19 Status: Acute (2) PNA (pneumonia) Status: Acute Qualifiers: Pneumonia type: due to unspecified organism (3) NSTEMI (non-ST elevation myocardial infarction) Status: Acute (4) Sepsis Status: Acute (5) CHF (congestive heart failure) Status: Acute (6) Morbid obesity Status: Chronic (7) Finger osteomyelitis, left Status: Acute (8) Respiratory failure Status: Acute (9) Diabetes mellitus, insulin dependent (IDDM), uncontrolled Status: Acute (10) TREE (obstructive sleep apnea) Status: Chronic (11) Debility (12) Renal insufficiency Status: Acute (13) CAD (coronary artery disease) Status: Chronic Clinical Quality Measures DVT/VTE Risk/Contraindication: Risk Factor Score Per Nursin RFS Level Per Nursing on Admit: 4+=Very High ANTONIO MICHAELS MD Aug 04, 2020 06:55
[2020-08-04] MEDS ORDERED: NS IV 500 ML 500 ML ONE (08:07)
[2020-08-04] MEDS: ASPIRIN 81 MG CHEW (CHILDREN'S ASA) PO SCH (08:34)
[2020-08-04] MEDS: amLODIPine 10 MG (NORVASC) TAB PO SCH (08:34)
[2020-08-04] MEDS: CARVEDILOL 12.5 MG (COREG) TABLET PO SCH ×2 (08:34→18:18)
[2020-08-04] MEDS: MICONAZOLE 2% POWDER (DESENEX AF) 90 GM TOP SCH ×2 (08:35→20:52)
[2020-08-04] MEDS: NYSTATIN OINTMENT 30 GM TUBE TOP SCH ×2 (08:35→20:52)
[2020-08-04] MEDS ORDERED: MIDAZOLAM 2 MG/2 ML (VERSED) VIAL ONE (09:29)
[2020-08-04] MEDS ORDERED: KETAMINE/NaCl 50 MG/5 ML SYRINGE (ED ONLY) ONE (09:29)
[2020-08-04] MEDS ORDERED: LIDOCAINE 1% INJ 20 ML 20 ML VIAL ONE (09:41)
--- NOTE | 2020-08-04 09:45 | Progress Note-Post Operative ---
Post-Operative Progess Note Surgeon (s)/Drophammer Operator (s) Surgeon ELMO GRIFFITHS MD Drophammer Operator: none Pre-Operative Diagnosis bleeding status post left long finger amputation Post-Operative Diagnosis bleeding status post left long finger amputation Procedure & Operative Findings Date of Procedure 08/04/20 Procedure Performed/Findings wound exploration and cauterization left long finger Anesthesia Type MAC plus local Estimated Blood Loss Estimated blood loss (mL): minimal Specimens/Packing Specimens Removed none Packing: none ELMO GRIFFITHS MD Aug 04, 2020 09:45
--- NOTE | 2020-08-04 09:45 | Progress Note-Pre Operative ---
Pre-Operative Progress Note H&P Reviewed The H&P was reviewed, patient examined and no changes noted. Date Seen by Provider: Aug 04, 2020 Time Seen by Provider: 09:44 Date H&P Reviewed: Jul 31, 2020 Time H&P Reviewed: 10:07 Pre-Operative Diagnosis: bleeding status post left long finger amputation ELMO GRIFFITHS MD Aug 04, 2020 09:45
[2020-08-04] MEDS ORDERED: oxyCODONE/APAP 5/325MG (PERCOCET 5) TABLET PO PRN (10:00)
[2020-08-04] MEDS ORDERED: ceFAZolin INJECTION 1,000 MG ONE (10:00)
[2020-08-04] MEDS ORDERED: ONDANSETRON 4 MG/2 ML (SDV) Z0FRAN IVP PRN ×2 (10:00→11:00)
[2020-08-04] MEDS: BUPIVACAINE 0.25% 30 ML (SENSORCAINE) VIAL ONE ×2 (10:04→10:05)
[2020-08-04] MEDS ORDERED: fentaNYL INJECTION 100 MCG/2 ML AMP IVP ONE (11:00)
--- NOTE | 2020-08-04 11:46 | Anesthesia-General Post-Op ---
MAC Patient Condition Mental Status/LOC: Same as Preop Cardiovascular: Satisfactory Nausea/Vomiting: Absent Respiratory: Satisfactory Pain: Controlled Complications: Absent Post Op Complications Complications None Follow Up Care/Instructions Patient Instructions None needed. Anesthesiology Discharge Order Discharge Order Patient is doing well, no complaints, stable vital signs, no apparent adverse anesthesia problems. No complications reported per nursing. FREDDY ADDISON CRNA Aug 04, 2020 11:46
[2020-08-04] MEDS: ACETAMINOPHEN 325 MG TABLET PO PRN ×2 (13:42→18:17)
--- NOTE | 2020-08-04 14:56 | Progress Note - Cardiology ---
Cardiology SOAP Progress Note Subjective: No cp or palp or syncope Shortness of breath present with activity Gen malaise No n/v Objective: I&O/Vital Signs 08/04/20 08/04/20 08/04/20 08/04/20 03:40 07:00 08:00 08:25 Temp 36.1 36.2 36.2 Pulse 70 62 60 60 Resp 22 20 20 B/P (MAP) 143/72 (95) 142/74 (96) 142/74 Pulse Ox 93 96 96 O2 Delivery NIV CPAP Nasal Cannula Nasal Cannula O2 Flow Rate 4.00 4.00 4.00 08/04/20 08/04/20 08/04/20 08/04/20 08:31 08:41 08:47 10:50 Temp 36.2 35.7 Pulse 60 63 Resp 20 18 18 B/P (MAP) 142/74 168/78 137/64 Pulse Ox 96 99 95 100 O2 Delivery Nasal Cannula Nasal Cannula NIV CPAP O2 Flow Rate 4.00 4.00 4.00 4.00 08/04/20 08/04/20 08/04/20 08/04/20 10:53 10:53 11:00 11:05 Temp 36.1 Resp 16 16 B/P (MAP) 111/63 (79) 118/62 (80) Pulse Ox 100 100 O2 Delivery Nasal Cannula Nasal Cannula Nasal Cannula Nasal Cannula O2 Flow Rate 4.00 4 4 4.00 08/04/20 08/04/20 08/04/20 08/04/20 11:10 11:20 11:20 11:30 Temp 36.2 Resp 14 16 16 B/P (MAP) 112/60 (77) 125/63 (83) 122/67 (85) Pulse Ox 99 98 98 O2 Delivery Nasal Cannula Nasal Cannula Nasal Cannula Nasal Cannula O2 Flow Rate 4 4.00 4 4 08/04/20 08/04/20 08/04/20 08/04/20 11:30 12:00 12:58 13:36 Temp 36.0 36.0 Pulse 58 60 58 Resp 20 18 B/P (MAP) 124/68 (86) 124/68 Pulse Ox 96 O2 Delivery Nasal Cannula Nasal Cannula O2 Flow Rate 4.00 4.00 08/04/20 13:51 Temp 35.7 Pulse 66 B/P (MAP) 154/68 08/03/20 23:59 Intake Total 1200 ml Output Total 600 ml Balance 600 ml Weight (Pounds): 322 Weight (Ounces): 1.0 Weight (Calculated Kilograms): 146.131979 Constitutional: AAO x 3, well-developed, well-nourished Respiratory: No accessory muscle use; other (fair air entry, diminshed at the bases) Cardiovascular: regular rate-rhythm, S1 and S2, systolic murmur (soft ARACELY at card base) Gastrointestional: No tender; soft; No guarding, No rebound; audible bowel sounds Extremities: other (R BKA; Left hand with drsg in place, not removed); No clubbing, No cyanosis, No significant edema Neurologic/Psychiatric: other (seems to be able to move all limbs; not cooperative with exam) Skin: No rash on exposed areas, No ulcerations on exposed areas Results/Procedures: Labs Laboratory Tests 08/03/20 15:52: Glucometer 182H 08/03/20 20:13: Glucometer 155H 08/04/20 05:00: White Blood Count 5.2, Red Blood Count 2.40L, Hemoglobin 6.6*L, Hematocrit 21L, Mean Corpuscular Volume 87, Mean Corpuscular Hemoglobin 28, Mean Corpuscular Hemoglobin Concent 32, Red Cell Distribution Width 15.2H, Platelet Count 150, Mean Platelet Volume 11.4, Immature Granulocyte % (Auto) 1, Neutrophils (%) (Au to) 71, Lymphocytes (%) (Auto) 16, Monocytes (%) (Auto) 10, Eosinophils (%) (Auto) 3, Basophils (%) (Auto) 0, Neutrophils # (Auto) 3.7, Lymphocytes # (Auto) 0.8L, Monocytes # (Auto) 0.5, Eosinophils # (Auto) 0.1, Basophils # (Auto) 0.0, Immature Granulocyte # (Auto) 0.0, Prothrombin Time 19.2H, INR Comment 1.6H, Sodium Level 138, Potassium Level 4.3, Chloride Level 107, Carbon Dioxide Level 21, Anion Gap 10, Blood Urea Nitrogen 38H, Creatinine 1.99H, Estimat Glomerular Filtration Rate 34, BUN/Creatinine Ratio 19, Glucose Level 124H, Calcium Level 8.3L, Phosphorus Level 3.5, Magnesium Level 2.4 08/04/20 11:36: Glucometer 91 Microbiology 07/31/20 Gram Stain - Final, Resulted 07/31/20 Anaerobic Culture, Resulted Pending 07/31/20 Surgical Culture - Final, Resulted Corynebacterium striatum Staphylococcus epidermidis Streptococcus mitis group No Susceptibility Performed 07/28/20 MRSA Screen - Final, Complete MRSA not isolated 07/28/20 Blood Culture - Final, Complete No growth Laboratory Tests 08/03/20 07:52 08/04/20 05:00 A/P: Assessment: Sepsis due to osteomyelitis, treated with left long finger amputation at the PIP joint, oozing blood Severe anemia, worsening, at least partly related to blood loss, managed by the Hospitalist deon Acute (MARGY 2) on chronic (CKD 4) renal failure Mildly elevated troponin, probably type 2 [place] due to renal failure and sepsis PAF H/o peripheral arterial disease, history of right BKA Coronary artery disease, history of multiple interventions, total of 8 stents, had bypass surgery using single vessel after failed multiple attempts for intervention at [facility] in 2017. No intervention since, he says Echo on 07/30/20: LVEF 40-45%, mild global hypokinesis that is somewhat prominent at the apex, mild to mod dilatation of the left atrium Hypertension Hyperlipidemia, intolerant to multiple statin COPD Obesity and TREE - CPAP tx Diabetes mellitus II Carotid stenosis, totally occluded left ICA, less than 40 percent on the right side Plan: * Blood transfusion recommended * Lovenox d/c'd on 08/03/20 due to continuos oozing from finger stump * Warfarin has been resumed but INR still subtherapeutic - monitor INR closely and adjust as indicated * Monitor labs PIERCE JOHN MD FACP FAC CCDS Aug 04, 2020 14:56
--- NOTE | 2020-08-04 15:18 | OPERATIVE REPORT ---
DATE OF SERVICE: 08/04/2020 PREOPERATIVE DIAGNOSIS: Bleeding from surgical site, status post left long finger amputation. POSTOPERATIVE DIAGNOSIS: Bleeding from surgical site, status post left long finger amputation. PROCEDURE PERFORMED: Wound exploration with cauterization of left long finger. SURGEON: Elmo Griffiths MD. PIPE COREMAKER: None. ANESTHESIA: Monitored anesthesia care plus local by Rafita Pitts CRNA. TOURNIQUET TIME: Not applicable. ESTIMATED BLOOD LOSS: Minimal. DRAINS: None. COMPLICATIONS: None. POSTOPERATIVE PLAN: Local wound care. The patient was transferred to the recovery room awake and stable condition. STATEMENT OF MEDICAL NECESSITY: The patient is a 69-year-old gentleman, who on Wednesday underwent amputation of his left long finger at the PIP joint for chronic osteomyelitis. His wound was assessed on Wednesday, had a minimal amount of bloody drainage as would be expected. Otherwise, no abnormal appearances. Apparently, throughout the weekend, he continued to bleed, required reinforcement and because of this, it was elected to proceed with surgical exploration. The patient was on Lovenox as well as Coumadin. DESCRIPTION OF PROCEDURE: After the risks and benefits of the procedure were discussed and questions were answered, informed consent was signed and placed on the chart, the operative site was confirmed in the preoperative holding area initialed by the surgeon. The patient was then transferred to the operating room and after adequate levels of monitored anesthesia care were obtained, a timeout was called confirming the operative site and under sterile conditions, a digital block was placed using plain lidocaine. The left upper extremity was prepped and draped in the usual sterile fashion. Previous sutures were removed. The wound was opened. There was oozing of the soft tissues, but no active bleeders noted. The digital artery and vein were cauterized with no abnormalities noted. The soft tissues were cauterized diffusely and then pressure was held multiple times in order to assess for any further bleeding. Surgicel was then used, which was packed volarly, radially and ulnarly. Following this, there was minimal to any oozing or bleeding noted. There was no necrotic tissue noted. The bone end was clean and dry. The skin was then closed with 4-0 nylon in a horizontal mattress interrupted fashion. Again, there was a minimal amount of oozing noted after wound closure with no active bleeding noted. A soft dressing was applied. The patient was transferred to the recovery room awake and in stable condition. Job ID: [id number] DocumentID: [id number] Dictated Date: 08/04/2020 11:03:37 Leak Hunter Date: 08/04/2020 15:17:47 Dictated By: ELMO GRIFFITHS MD
[2020-08-04] MEDS: warFARin 5 MG (COUMADIN) TAB PO SCH (18:18)
[2020-08-04] MEDS: TAMSULOSIN 0.4 MG (FLOMAX) CAP PO SCH (18:18)
[2020-08-05] MEDS: RT-ALBUTEROL INHALER HFA (VENTOLIN HFA) 18 GM IH SCH ×4 (02:46→22:11)
[2020-08-05] MEDS: hydrALAZINE (APRESOLINE) 25 MG TAB PO SCH ×3 (05:24→21:34)
[2020-08-05] MEDS: inSUlin ASPART (NovoLOG) 1 UNIT/0.01 ML (CHARGE PER UNIT) SC SCH ×4 (05:25→21:22)
[2020-08-05] MEDS: CATHETER FLUSH 10 ML SYR IV SCH ×3 (05:25→21:34)
[2020-08-05 05:47] LABS: BASOPHILS % (AUTO) 0 % (0-10); EOSINOPHILS # (AUTO) 0.1 10^3/uL (0.0-0.3); EOSINOPHILS % (AUTO) 2 % (0-10); HEMATOCRIT 24 % (40-54); HEMOGLOBIN 7.5 g/dL (13.3-17.7); LYMPHOCYTES # (AUTO) 0.7 10^3/uL (1.0-4.0); LYMPHOCYTES % (AUTO) 15 % (12-44); MEAN CORPUSCULAR HEMOGLOBIN 28 pg (25-34); MEAN CORPUSCULAR HGB CONC 32 g/dL (32-36); MEAN CORPUSCULAR VOLUME 87 fL (80-99); MONOCYTES # (AUTO) 0.4 10^3/uL (0.0-1.0); MONOCYTES % (AUTO) 9 % (0-12); NEUTROPHILS # (AUTO) 3.3 10^3/uL (1.8-7.8); NEUTROPHILS % (AUTO) 73 % (42-75); PLATELET COUNT 118 10^3/uL (130-400); WHITE BLOOD COUNT 4.5 10^3/uL (4.3-11.0)
[2020-08-05 06:03] LABS: INR 1.3 (0.8-1.4)
[2020-08-05 06:05] LABS: POTASSIUM 4.4 MMOL/L (3.6-5.0)
[2020-08-05 06:07] LABS: CALCIUM 8.2 MG/DL (8.5-10.1)
[2020-08-05 06:11] LABS: CREATININE SERUM 1.8 MG/DL (0.60-1.30); PHOSPHORUS 3.5 MG/DL (2.3-4.7)
[2020-08-05 06:13] LABS: MAGNESIUM 2.5 MG/DL (1.6-2.4)
--- NOTE | 2020-08-05 07:28 | Pulmonary Progress Note ---
Subjective Time Seen by a Provider: 07:23 Subjective/Events-last exam No complications noted. Sepsis Event Evaluation Height, Weight, BMI Height: 6'0.00" Weight: 322lbs. 1.0oz. 146.657091xf; 48.00 BMI Method:Stated Exam Exam Vital Signs Date Time Temp Pulse Resp B/P (MAP) Pulse Ox O2 Delivery O2 Flow Rate FiO2 08/05/20 03:44 36.1 69 17 167/70 (102) 95 NIV CPAP 4.00 08/05/20 02:46 90 NIV CPAP 5.00 08/05/20 01:00 67 08/05/20 00:00 36.6 68 19 137/70 (92) 94 Nasal Cannula 2.50 08/04/20 20:53 90 NIV CPAP 5.00 08/04/20 20:00 NIV CPAP 4.00 08/04/20 19:34 35.7 94 18 133/68 (89) 95 Nasal Cannula 2.50 08/04/20 19:00 69 08/04/20 16:33 35.8 63 20 129/72 (91) 97 Nasal Cannula 2.50 08/04/20 16:02 35.8 63 129/72 08/04/20 15:48 35.7 82 90 40 08/04/20 15:24 90 NIV CPAP 5.00 08/04/20 13:51 35.7 66 154/68 08/04/20 13:36 36.0 58 18 124/68 08/04/20 12:58 60 08/04/20 12:00 36.0 58 20 124/68 (86) 96 Nasal Cannula 4.00 08/04/20 11:30 Nasal Cannula 4.00 08/04/20 11:30 36.2 16 122/67 (85) 98 Nasal Cannula 4 08/04/20 11:20 16 125/63 (83) 98 Nasal Cannula 4 08/04/20 11:20 Nasal Cannula 4.00 08/04/20 11:10 14 112/60 (77) 99 Nasal Cannula 4 08/04/20 11:05 Nasal Cannula 4.00 08/04/20 11:00 16 118/62 (80) 100 Nasal Cannula 4 08/04/20 10:53 36.1 16 111/63 (79) 100 Nasal Cannula 4 08/04/20 10:53 Nasal Cannula 4.00 08/04/20 10:50 18 137/64 100 4.00 08/04/20 08:47 95 NIV CPAP 4.00 08/04/20 08:41 35.7 63 18 168/78 99 Nasal Cannula 4.00 08/04/20 08:31 36.2 60 20 142/74 96 Nasal Cannula 4.00 08/04/20 08:25 36.2 60 20 142/74 96 Nasal Cannula 4.00 08/04/20 08:00 36.2 60 20 142/74 (96) 96 Nasal Cannula 4.00 I & O 08/05/20 07:00 Intake Total 2180 ml Output Total 945 ml Balance 1235 ml Height & Weight Height: 6'0.00" Weight: 322lbs. 1.0oz. 146.987706ox; 48.00 BMI Method:Stated General Appearance: No Apparent Distress, Chronically ill, Obese HEENT: Other (wearing BiPAP) Respiratory: Lungs Clear, Other (on CPAP) Cardiovascular: Regular Rate, Rhythm, No Murmur Capillary Refill: Less Than 3 Seconds Gastrointestinal: normal bowel sounds, non tender, soft Extremity: Other (s/p right BKA, left hand dressed in surgical dressing with some blood noted) Neurologic/Psychiatric: Alert, Oriented x3 Skin: Normal Color, Warm/Dry Results Lab Laboratory Tests 08/03/20 07:52 08/04/20 05:00 08/05/20 05:35 Assessment/Plan Assessment/Plan Acute on chronic respiratory failure with hypoxia -Currently on CPAP at 30 % HS -Use CPAP HS only -Back to [place] 4liter during the day -COVID is negative Sepsis Possible pneumonia -s/p vanco and Zosyn NSTEMI -Cardiolgy following Osteomyelitis of left finger SIRS+ with elevated WBC, tachycardia, and tachypnea COVID LEV negative, PCR pending - Cardiology following Ortho following Atrial fibrillation on Coumadin Coumadin T2DM Levemir Sliding scale insulin HTN BPH Continue home meds Morbid obesity and debility -Consult PT Clinically significant CHELLE RUIZ DO Aug 05, 2020 07:28
--- NOTE | 2020-08-05 08:01 | Progress Note ---
Standard Progress Note Progress Notes/Assess & Plan Date Seen by a Provider: Aug 05, 2020 Time Seen by a Provider: 08:00 Progress/Assessment & Plan patient seen and evaluated consult dictated plan for amputation of LLF at [facility] tomorrow Final Diagnosis No complaints L hand dressing clean and dry. s/p revision amputation L LF ok to dc from my standpoint FU with me in two weeks ELMO GRIFFITHS MD Aug 05, 2020 08:01
[2020-08-05] MEDS: ASPIRIN 81 MG CHEW (CHILDREN'S ASA) PO SCH (08:41)
[2020-08-05] MEDS: CARVEDILOL 12.5 MG (COREG) TABLET PO SCH ×2 (08:41→17:10)
[2020-08-05] MEDS: amLODIPine 10 MG (NORVASC) TAB PO SCH (08:41)
[2020-08-05] MEDS: MICONAZOLE 2% POWDER (DESENEX AF) 90 GM TOP SCH ×2 (08:42→21:22)
[2020-08-05] MEDS: NYSTATIN OINTMENT 30 GM TUBE TOP SCH ×2 (08:42→21:22)
--- NOTE | 2020-08-05 08:49 | Anesthesia-General Post-Op ---
MAC Patient Condition Mental Status/LOC: Same as Preop Cardiovascular: Satisfactory Nausea/Vomiting: Absent Respiratory: Satisfactory Pain: Controlled Complications: Absent Post Op Complications Complications None Follow Up Care/Instructions Patient Instructions None needed. Anesthesiology Discharge Order Discharge Order Patient is doing well, no complaints, stable vital signs, no apparent adverse anesthesia problems. No complications reported per nursing. TYE DEAL CRNA Aug 05, 2020 08:49
--- NOTE | 2020-08-05 09:50 | Physical Therapy Daily Note ---
PT Daily Note-Current Subjective Patient sitting EOB and agrees to PT. PT assist to don right prosthesis and left shoe. Mental Status Patient Orientation: Normal For Age Attachments: Oxygen, [place] Catheter Transfers SCALE: Activities may be completed with or without assistive devices. 7-Svtjcaozns-rksmcou completes the activity by him/herself with no assistance from a helper. 5-Set-up or Clean-up Assistance-helper sets up or cleans up; patient completes activity. [place] assists only prior to or following the activity. 4-Supervision or Touching Assistance-helper provides verbal cues and/or touching/steadying and/or contact guard assistance as patient completes activity. Assistance may be provided throughout the activity or intermittently. 3-Partial/Moderate Assistance-helper does LESS THAN HALF the effort. [place] lifts, holds or supports trunk or limbs, but provides less than half the effort. 2-Substantial/Maximal Assistance-helper does MORE THAN HALF the effort. [place] lifts or holds trunk or limbs and provides more than half the effort. 5-Znhtywebt-zgzpxm does ALL the effort. Patient does none of the effort to complete the activity. Or, the assistance of 2 or more helpers is required for the patient to complete the activity. If activity was not attempted, code reason: 7-Patient Refused. 9-Not Applicable-not attempted and the patient did not perform the activity before the current illness, exacerbation or injury. 10-Not Attempted due to Environmental Limitations-(lack of equipment, weather restraints, etc.). 88-Not Attempted due to Medical Conditions or Safety Concerns. Sit to Stand (QC): 3 (x 3 sets) Gait Training Distance: 3 steps forward and back x 3 sets Gait Assistive Device: Walker Platform (left) Treatments dependent assist to don prosthesis due to left hand dressing. PT placed mask on patient prior to treatment. Assessment Patient c/o dizziness during treatment. Nursing notified. PT to increase activity as tolerated by patient. Patient report he is not going to wear his prosthesis when he gets home. PT Short Term Goals Short Term Goals Time Frame: Jul 30, 2020 PT Immigration Case Manager Goals Immigration Case Manager Goals PT Immigration Case Manager Goals Time Frame: Aug 10, 2020 Roll Left & Right (QC): 3 Sit to Lying (QC): 3 Lying-Sitting on Side/Bed(QC): 3 Sit to Stand (QC): 3 Chair/Kby-ij-Ltvqg Xfer(QC): 3 PT Plan Treatment/Plan Treatment Plan: Continue Plan of Care Treatment Plan: Bed Mobility, Education, Functional Activity Afrshad, Functional Strength, Safety, Therapeutic Exercise, Transfers Treatment Duration: Aug 10, 2020 Frequency: 6 times per week Estimated Hrs Per Day: .25 hour per day Patient and/or Family Agrees t: Yes Time/GCodes Time In: 911 Time Out: 923 Total Billed Treatment Time: 23 Total Billed Treatment 1 visit FA x 2 23 min ROSELYN FREEMAN PT Aug 05, 2020 09:50
[2020-08-05] MEDS: ACETAMINOPHEN 325 MG TABLET PO PRN ×2 (10:05→14:12)
--- NOTE | 2020-08-05 10:09 | Progress Note - Cardiology ---
Cardiology SOAP Progress Note Subjective: Sitting up in bed Bi-pap in place C/O left hand post surgical discomfort No c/o CP Objective: I&O/Vital Signs 08/06/20 08/06/20 08/06/20 08/06/20 00:34 01:08 02:53 03:57 Temp 37.4 35.6 Pulse 64 61 63 Resp 20 18 B/P (MAP) 160/68 (98) 166/77 (106) Pulse Ox 97 97 97 O2 Delivery NIV CPAP NIV CPAP NIV CPAP O2 Flow Rate 4.00 4.00 08/06/20 08/06/20 08/06/20 07:02 07:25 08:00 Temp 36.1 Pulse 64 Resp 22 B/P (MAP) 129/63 (85) Pulse Ox 93 96 O2 Delivery NIV CPAP Nasal Cannula Nasal Cannula O2 Flow Rate 4.00 4.00 4.00 08/06/20 00:00 Intake Total 2000 ml Output Total 1190 ml Balance 810 ml Weight (Pounds): 322 Weight (Ounces): 1.0 Weight (Calculated Kilograms): 146.965952 Constitutional: AAO x 3, well-developed, well-nourished Respiratory: No accessory muscle use; other (fair air entry, diminshed at the bases) Cardiovascular: regular rate-rhythm, S1 and S2, systolic murmur (soft ARACELY at card base) Gastrointestional: No tender; soft; No guarding, No rebound; audible bowel sounds Extremities: other (R BKA; Left hand with drsg in place, not removed); No clubbing, No cyanosis, No significant edema Neurologic/Psychiatric: grossly intact (moves all extremities) Skin: pallor; No rash on exposed areas, No ulcerations on exposed areas Results/Procedures: Labs Laboratory Tests 08/05/20 15:34: Glucometer 120H 08/05/20 20:10: Glucometer 139H 08/06/20 04:45: White Blood Count 4.9, Red Blood Count 2.70L, Hemoglobin 7.5L, Hematocrit 24L, Mean Corpuscular Volume 88, Mean Corpuscular Hemoglobin 28, Mean Corpuscular Hemoglobin Concent 32, Red Cell Distribution Width 15.6H, Platelet Count 125L, Mean Platelet Volume 11.2, Immature Granulocyte % (Auto) 1, Neutrophils (%) (Auto) 69, Lymphocytes (%) (Auto) 18, Monocytes (%) (Auto) 9, Eosinophils (%) (Auto) 2, Basophils (%) (Auto) 0, Neutrophils # (Auto) 3.4, Lymphocytes # (Auto) 0.9L, Monocytes # (Auto) 0.5, Eosinophils # (Auto) 0.1, Basophils # (Auto) 0.0, Immature Granulocyte # (Auto) 0.1, Prothrombin Time 16.3H, INR Comment 1.3, Sodi um Level 140, Potassium Level 4.5, Chloride Level 109H, Carbon Dioxide Level 22, Anion Gap 9, Blood Urea Nitrogen 32H, Creatinine 1.75H, Estimat Glomerular Filtration Rate 39, BUN/Creatinine Ratio 18, Glucose Level 104, Calcium Level 8.2L, Phosphorus Level 3.8, Magnesium Level 2.4 Microbiology 07/31/20 Gram Stain - Final, Complete 07/31/20 Anaerobic Culture - Final, Complete No anaerobes isolated 07/31/20 Surgical Culture - Final, Complete Corynebacterium striatum Staphylococcus epidermidis Streptococcus mitis group No Susceptibility Performed 07/28/20 MRSA Screen - Final, Complete MRSA not isolated 07/28/20 Blood Culture - Final, Complete No growth A/P: Assessment: Sepsis due to osteomyelitis, treated with left long finger amputation at the PIP joint, oozing blood Severe anemia, worsening, at least partly related to blood loss, managed by the Hospitalist deon Acute (MARGY 2) on chronic (CKD 4) renal failure Mildly elevated troponin, probably type 2 [place] due to renal failure and sepsis PAF H/o peripheral arterial disease, history of right BKA Coronary artery disease, history of multiple interventions, total of 8 stents, had bypass surgery using single vessel after failed multiple attempts for intervention at [facility] in 2017. No intervention since, he says Echo on 07/30/20: LVEF 40-45%, mild global hypokinesis that is somewhat prominent at the apex, mild to mod dilatation of the left atrium Hypertension Hyperlipidemia, intolerant to multiple statin COPD Obesity and TREE - CPAP tx Diabetes mellitus II Carotid stenosis, totally occluded left ICA, less than 40 percent on the right side Plan: * Blood transfusion recommended - management of post op anemia per surgical/medical services * Lovenox d/c'd on 08/03/20 due to continuos oozing from finger stump * Warfarin has been resumed but INR still subtherapeutic - monitor INR closely and adjust as indicated * Monitor labs TISH ARCEO Aug 05, 2020 10:09
--- NOTE | 2020-08-05 11:12 | Diagnostic Imaging Report ---
INDICATION: Respiratory failure. TIME OF EXAM: 10:39 AM. COMPARISON: Correlation is made with the prior chest from 07/31/2020. FINDINGS: The heart remains enlarged but stable. There are changes of median sternotomy and CABG. The lungs appear to be clear. No infiltrates are seen. There is no failure. No effusion or pneumothorax is seen. IMPRESSION: Stable chest. No acute cardiopulmonary process is detected. Dictated by: Dictated on workstation # [id number]
--- NOTE | 2020-08-05 14:24 | Progress Note - Hospitalist ---
Subjective HPI/CC On Admission Date Seen by Provider: Aug 05, 2020 Time Seen by Provider: 09:45 Bin Newberry is a 69 year old male with PMH HTN, T2DM on insulin, CAD s/p CABG, PVD s/p BKA, atrial fibrillation on coumadin, BPH, who presented with shortness of breath. He resides at a half-way. He was reportedly found to have a low oxygen saturation. EMS was called and placed him on CPAP. He was placed on BiPAP in the ER. Upon my examination, he is wearing BiPAP. He will awaken for brief periods, but is uncooperative with my exam. Subjective/Events-last exam he is grumpy this morning. He is upset that they did not give him a bedpan. He says he had a bowel movement in the bed. He denies shortness of breath. He denies fevers and chills. He denies any pain. He says he did not sleep and is going to try to take a nap. Objective Exam Vital Signs Vital Signs Date Time Temp Pulse Resp B/P (MAP) Pulse Ox O2 Delivery O2 Flow Rate FiO2 08/05/20 10:09 92 NIV CPAP 4.00 08/05/20 08:00 36.1 68 20 145/85 (105) 08/04/20 15:48 40 Capillary Refill : Less Than 3 SecondsLess Than 3 Seconds General Appearance: No Apparent Distress, Obese Respiratory: No Respiratory Distress, Decreased Breath Sounds Cardiovascular: Regular Rate, Rhythm, No Edema, No Murmur Gastrointestinal: Normal Bowel Sounds, Non Tender, Soft Extremity: Normal Inspection, Non Tender, No Pedal Edema Neurologic/Psychiatric: Alert, Oriented x3, No Motor/Sensory Deficits, Normal Mood/Affect Skin: Normal Color, Warm/Dry Results/Procedures Lab Laboratory Tests 08/05/20 05:35 Patient resulted labs reviewed. Imaging: Reviewed Imaging Report Assessment/Plan Assessment and Plan Assess & Plan/Chief Complaint Acute on chronic respiratory failure with hypoxia NSTEMI Osteomyelitis of left finger Ortho consulted, appreciate recs s/p amputation Cardiology consulted, appreciate recs Pulm consulted, appreciate recs Antibiotics discontinued Atrial fibrillation on Coumadin Anemia- postoperative Continue coumadin Lovenox held T2DM Continue Levemir Sliding scale insulin HTN BPH Continue home meds Morbid obesity Clinically significant, no acute management needs Debility PT/OT Likely discharge home with home health tomorrow medical services assistant consulted DVT ppx: lovenox as above Person under investigation for COVID-19, resolved Sepsis, resolved Diagnosis/Problems Diagnosis/Problems (1) Respiratory failure Status: Acute (2) Sepsis Status: Resolved Resolution Date/Time: 08/05/20 @ 14:25 (3) PNA (pneumonia) Status: Resolved Qualifiers: Pneumonia type: due to unspecified organism Resolution Date/Time: 08/05/20 @ 14:25 (4) CHF (congestive heart failure) Status: Chronic (5) Person under investigation for COVID-19 Status: Resolved Resolution Date/Time: 08/05/20 @ 14:25 (6) Osteoarthritis of left middle finger Status: Resolved Resolution Date/Time: 08/05/20 @ 14:25 (7) NSTEMI (non-ST elevation myocardial infarction) Status: Resolved Resolution Date/Time: 08/05/20 @ 14:25 (8) Morbid obesity Status: Chronic Clinical Quality Measures DVT/VTE Risk/Contraindication: Risk Factor Score Per Nursin RFS Level Per Nursing on Admit: 4+=Very High ANTOINETTE TOMLIN MD Aug 05, 2020 14:24
--- NOTE | 2020-08-05 15:00 | Progress Note - Cardiology ---
Cardiology SOAP Progress Note Subjective: No cp or palp or syncope Gen malaise Shortness of breath with activity Objective: I&O/Vital Signs 08/05/20 08/05/20 08/05/20 08/05/20 03:44 06:37 08:00 08:00 Temp 36.1 36.1 Pulse 69 70 68 Resp 17 20 B/P (MAP) 167/70 (102) 145/85 (105) Pulse Ox 95 93 95 O2 Delivery NIV CPAP NIV CPAP NIV CPAP O2 Flow Rate 4.00 4.00 08/05/20 08/05/20 08/05/20 10:09 12:00 12:38 Temp 36.1 Pulse 65 64 Resp 20 B/P (MAP) 121/69 (86) Pulse Ox 92 92 O2 Delivery NIV CPAP NIV CPAP O2 Flow Rate 4.00 4.00 08/05/20 00:00 Intake Total 1710 ml Output Total 575 ml Balance 1135 ml Weight (Pounds): 322 Weight (Ounces): 1.0 Weight (Calculated Kilograms): 146.610690 Constitutional: AAO x 3, well-developed, well-nourished Respiratory: No accessory muscle use; other (fair air entry, diminshed at the bases) Cardiovascular: regular rate-rhythm, S1 and S2, systolic murmur (soft ARACELY at card base) Gastrointestional: No tender; soft; No guarding, No rebound; audible bowel sounds Extremities: other (R BKA; Left hand with drsg in place, not removed); No clubbing, No cyanosis, No significant edema Neurologic/Psychiatric: grossly intact (moves all extremities) Skin: pallor; No rash on exposed areas, No ulcerations on exposed areas Results/Procedures: Labs Laboratory Tests 08/04/20 15:43: Glucometer 155H 08/04/20 20:03: Glucometer 163H 08/05/20 05:09: Glucometer 119H 08/05/20 05:35: White Blood Count 4.5, Red Blood Count 2.70L, Hemoglobin 7.5L, Hematocrit 24L, Mean Corpuscular Volume 87, Mean Corpuscular Hemoglobin 28, Mean Corpuscular Hemoglobin Concent 32, Red Cell Distribution Width 15.4H, Platelet Count 118L, Mean Platelet Volume 11.0, Immature Granulocyte % (Auto) 2, Neutrophils (%) (A uto) 73, Lymphocytes (%) (Auto) 15, Monocytes (%) (Auto) 9, Eosinophils (%) (Auto) 2, Basophils (%) (Auto) 0, Neutrophils # (Auto) 3.3, Lymphocytes # (Auto) 0.7L, Monocytes # (Auto) 0.4, Eosinophils # (Auto) 0.1, Basophils # (Auto) 0.0, Immature Granulocyte # (Auto) 0.1, Prothrombin Time 17.0H, INR Comment 1.3, Sodium Level 138, Potassium Level 4.4, Chloride Level 108H, Carbon Dioxide Level 21, Anion Gap 9, Blood Urea Nitrogen 33H, Creatinine 1.80H, Estimat Glomerular Filtration Rate 38, BUN/Creatinine Ratio 18, Glucose Level 115H, Calcium Level 8.2L, Phosphorus Level 3.5, Magnesium Level 2.5H 08/05/20 10:29: Glucometer 202H Microbiology 07/31/20 Gram Stain - Final, Resulted 07/31/20 Anaerobic Culture, Resulted Pending 07/31/20 Surgical Culture - Final, Resulted Corynebacterium striatum Staphylococcus epidermidis Streptococcus mitis group No Susceptibility Performed 07/28/20 MRSA Screen - Final, Complete MRSA not isolated 07/28/20 Blood Culture - Final, Complete No growth Laboratory Tests 08/04/20 05:00 08/05/20 05:35 A/P: Assessment: Sepsis due to osteomyelitis, treated with left long finger amputation at the PIP joint Severe anemia, worsening, at least partly related to blood loss, managed by the Hospitalist deon Acute (AMRGY 2) on chronic (CKD 4) renal failure Mildly elevated troponin, probably type 2 PR due to renal failure and sepsis PAF H/o peripheral arterial disease, history of right BKA Coronary artery disease, history of multiple interventions, total of 8 stents, had bypass surgery using single vessel after failed multiple attempts for i ntervention at [facility] in 2017. No intervention since, he says Echo on 07/30/20: LVEF 40-45%, mild global hypokinesis that is somewhat prominent at the apex, mild to mod dilatation of the left atrium Hypertension Hyperlipidemia, intolerant to multiple statin COPD Obesity and TREE - CPAP tx Diabetes mellitus II Carotid stenosis, totally occluded left ICA, less than 40 percent on the right side Plan: * Management of post op anemia per surgical/medical services * Lovenox d/c'd on 08/03/20 due to continuos oozing from finger stump * Warfarin has been resumed but INR still subtherapeutic - monitor INR closely and adjust as indicated * Monitor labs PIERCE JOHN MD FACP FAC CCDS Aug 05, 2020 15:00
[2020-08-05] MEDS: TAMSULOSIN 0.4 MG (FLOMAX) CAP PO SCH (17:09)
[2020-08-05] MEDS ORDERED: warFARin 10 MG (COUMADIN) TAB PO SCH (18:00)
[2020-08-06] MEDS: RT-ALBUTEROL INHALER HFA (VENTOLIN HFA) 18 GM IH SCH ×3 (02:53→14:43)
[2020-08-06 05:07] LABS: BASOPHILS % (AUTO) 0 % (0-10); EOSINOPHILS # (AUTO) 0.1 10^3/uL (0.0-0.3); EOSINOPHILS % (AUTO) 2 % (0-10); HEMATOCRIT 24 % (40-54); HEMOGLOBIN 7.5 g/dL (13.3-17.7); LYMPHOCYTES # (AUTO) 0.9 10^3/uL (1.0-4.0); LYMPHOCYTES % (AUTO) 18 % (12-44); MEAN CORPUSCULAR HEMOGLOBIN 28 pg (25-34); MEAN CORPUSCULAR HGB CONC 32 g/dL (32-36); MEAN CORPUSCULAR VOLUME 88 fL (80-99); MEAN PLATELET VOLUME 11.2 fL (9.0-12.2); MONOCYTES # (AUTO) 0.5 10^3/uL (0.0-1.0); MONOCYTES % (AUTO) 9 % (0-12); NEUTROPHILS # (AUTO) 3.4 10^3/uL (1.8-7.8); NEUTROPHILS % (AUTO) 69 % (42-75); PLATELET COUNT 125 10^3/uL (130-400); WHITE BLOOD COUNT 4.9 10^3/uL (4.3-11.0)
[2020-08-06 05:16] LABS: POTASSIUM 4.5 MMOL/L (3.6-5.0)
[2020-08-06 05:17] LABS: CALCIUM 8.2 MG/DL (8.5-10.1)
[2020-08-06 05:21] LABS: PHOSPHORUS 3.8 MG/DL (2.3-4.7)
[2020-08-06 05:22] LABS: CREATININE SERUM 1.75 MG/DL (0.60-1.30)
[2020-08-06 05:24] LABS: MAGNESIUM 2.4 MG/DL (1.6-2.4)
[2020-08-06 05:37] LABS: INR 1.3 (0.8-1.4); PROTHROMBIN TIME PATIENT 16.3 SEC (12.2-14.7)
[2020-08-06] MEDS: inSUlin ASPART (NovoLOG) 1 UNIT/0.01 ML (CHARGE PER UNIT) SC SCH ×2 (05:44→11:10)
[2020-08-06] MEDS: ACETAMINOPHEN 325 MG TABLET PO PRN (06:01)
[2020-08-06] MEDS: CATHETER FLUSH 10 ML SYR IV SCH ×2 (06:02→15:45)
[2020-08-06] MEDS: hydrALAZINE (APRESOLINE) 25 MG TAB PO SCH ×2 (06:02→15:55)
--- NOTE | 2020-08-06 07:18 | Pulmonary Progress Note ---
Subjective Time Seen by a Provider: 07:17 Subjective/Events-last exam No complications noted. Sepsis Event Evaluation Height, Weight, BMI Height: 6'0.00" Weight: 322lbs. 1.0oz. 146.699287ih; 48.00 BMI Method:Stated Exam Exam Vital Signs Date Time Temp Pulse Resp B/P (MAP) Pulse Ox O2 Delivery O2 Flow Rate FiO2 08/06/20 07:02 93 NIV CPAP 4.00 08/06/20 03:57 35.6 63 18 166/77 (106) 97 NIV CPAP 4.00 08/06/20 02:53 97 NIV CPAP 4.00 08/06/20 01:08 61 08/06/20 00:34 37.4 64 20 160/68 (98) 97 NIV CPAP 08/05/20 22:11 85 NIV CPAP 0.00 08/05/20 20:21 NIV CPAP 4.00 08/05/20 20:00 35.8 61 18 119/69 (86) 99 NIV CPAP 08/05/20 19:00 61 08/05/20 16:00 36.0 61 16 146/72 (96) 97 NIV CPAP 08/05/20 15:12 96 NIV CPAP 4.00 08/05/20 12:38 64 08/05/20 12:00 36.1 65 20 121/69 (86) 92 NIV CPAP 4.00 08/05/20 10:09 92 NIV CPAP 4.00 08/05/20 08:00 95 NIV CPAP 08/05/20 08:00 36.1 68 20 145/85 (105) 93 NIV CPAP 4.00 I & O 08/06/20 07:00 Intake Total 2150 ml Output Total 2040 ml Balance 110 ml Height & Weight Height: 6'0.00" Weight: 322lbs. 1.0oz. 146.659481hz; 48.00 BMI Method:Stated General Appearance: No Apparent Distress, Obese HEENT: Other (wearing BiPAP) Respiratory: No Respiratory Distress, Decreased Breath Sounds Cardiovascular: Regular Rate, Rhythm, No Edema, No Murmur Capillary Refill: Less Than 3 Seconds Gastrointestinal: normal bowel sounds, non tender, soft Extremity: Normal Inspection, Non Tender, No Pedal Edema Neurologic/Psychiatric: Alert, Oriented x3, No Motor/Sensory Deficits, Normal Mood/Affect Skin: Normal Color, Warm/Dry Results Lab Laboratory Tests 1/4/21 05:35 08/06/20 04:45 Assessment/Plan Assessment/Plan Acute on chronic respiratory failure with hypoxia -Currently on CPAP at 30 % HS -Use CPAP HS only -Back to ID 4liter during the day -COVID is negative Sepsis Possible pneumonia -s/p vanco and Zosyn NSTEMI -Cardiolgy following Osteomyelitis of left finger SIRS+ with elevated WBC, tachycardia, and tachypnea COVID LEV negative, PCR pending - Cardiology following Ortho following Atrial fibrillation on Coumadin Coumadin T2DM Levemir Sliding scale insulin HTN BPH Continue home meds Morbid obesity and debility -Consult PT Clinically significant CHELLE RUIZ DO Aug 06, 2020 07:18
[2020-08-06] MEDS: amLODIPine 10 MG (NORVASC) TAB PO SCH (08:19)
[2020-08-06] MEDS: NYSTATIN OINTMENT 30 GM TUBE TOP SCH (08:20)
[2020-08-06] MEDS: CARVEDILOL 12.5 MG (COREG) TABLET PO SCH (08:20)
[2020-08-06] MEDS: MICONAZOLE 2% POWDER (DESENEX AF) 90 GM TOP SCH (08:20)
[2020-08-06] MEDS: ASPIRIN 81 MG CHEW (CHILDREN'S ASA) PO SCH (08:20)
--- NOTE | 2020-08-06 10:48 | Progress Note - Cardiology ---
Cardiology SOAP Progress Note Subjective: In bed C/O fatigue and post surgical pain No c/o CP, palpitations Reports SOB is chronic and unchanged Objective: I&O/Vital Signs 08/06/20 08/06/20 08/06/20 08/06/20 00:34 01:08 02:53 03:57 Temp 37.4 35.6 Pulse 64 61 63 Resp 20 18 B/P (MAP) 160/68 (98) 166/77 (106) Pulse Ox 97 97 97 O2 Delivery NIV CPAP NIV CPAP NIV CPAP O2 Flow Rate 4.00 4.00 08/06/20 08/06/20 08/06/20 07:02 07:25 08:00 Temp 36.1 Pulse 64 Resp 22 B/P (MAP) 129/63 (85) Pulse Ox 93 96 O2 Delivery NIV CPAP Nasal Cannula Nasal Cannula O2 Flow Rate 4.00 4.00 4.00 08/06/20 00:00 Intake Total 2000 ml Output Total 1190 ml Balance 810 ml Weight (Pounds): 322 Weight (Ounces): 1.0 Weight (Calculated Kilograms): 146.661478 Constitutional: AAO x 3, well-developed, well-nourished Respiratory: No accessory muscle use; other (fair air entry, diminshed at the bases) Cardiovascular: regular rate-rhythm, S1 and S2, systolic murmur (soft ARACELY at card base) Gastrointestional: No tender; soft; No guarding, No rebound; audible bowel sounds Extremities: other (R BKA; Left hand with drsg in place, not removed); No clubbing, No cyanosis, No significant edema Neurologic/Psychiatric: grossly intact (moves all extremities) Skin: pallor; No rash on exposed areas, No ulcerations on exposed areas Results/Procedures: Labs Laboratory Tests 08/05/20 15:34: Glucometer 120H 08/05/20 20:10: Glucometer 139H 08/06/20 04:45: White Blood Count 4.9, Red Blood Count 2.70L, Hemoglobin 7.5L, Hematocrit 24L, Mean Corpuscular Volume 88, Mean Corpuscular Hemoglobin 28, Mean Corpuscular Hemoglobin Concent 32, Red Cell Distribution Width 15.6H, Platelet Count 125L, Mean Platelet Volume 11.2, Immature Granulocyte % (Auto) 1, Neutrophils (%) (Auto) 69, Lymphocytes (%) (Auto) 18, Monocytes (%) (Auto) 9, Eosinophils (%) (Auto) 2, Basophils (%) (Auto) 0, Neutrophils # (Auto) 3.4, Lymphocytes # (Auto) 0.9L, Monocytes # (Auto) 0.5, Eosinophils # (Auto) 0.1, Basophils # (Auto) 0.0, Immature Granulocyte # (Auto) 0.1, Prothrombin Time 16.3H, INR Comment 1.3, Sodium Level 140, Potassium Level 4.5, Chloride Level 109H, Carbon Dioxide Level 22, Anion Gap 9, Blood Urea Nitrogen 32H, Creatinine 1.75H, Estimat Glomerular F iltration Rate 39, BUN/Creatinine Ratio 18, Glucose Level 104, Calcium Level 8.2L, Phosphorus Level 3.8, Magnesium Level 2.4 Microbiology 07/31/20 Gram Stain - Final, Complete 07/31/20 Anaerobic Culture - Final, Complete No anaerobes isolated 07/31/20 Surgical Culture - Final, Complete Corynebacterium striatum Staphylococcus epidermidis Streptococcus mitis group No Susceptibility Performed 07/28/20 MRSA Screen - Final, Complete MRSA not isolated 07/28/20 Blood Culture - Final, Complete No growth Laboratory Tests 08/05/20 05:35 08/06/20 04:45 A/P: Assessment: Sepsis due to osteomyelitis, treated with left long finger amputation at the PIP joint Severe anemia, worsening, at least partly related to blood loss, managed by the Hospitalist deon Acute (MARGY 2) on chronic (CKD 4) renal failure Mildly elevated troponin, probably type 2 AR due to renal failure and sepsis PAF H/o peripheral arterial disease, history of right BKA Coronary artery disease, history of multiple interventions, total of 8 stents, had bypass surgery using single vessel after failed multiple attempts for intervention at [facility] in 2017. No intervention since, he says Echo on 07/30/20: LVEF 40-45%, mild global hypokinesis that is somewhat prominent at the apex, mild to mod dilatation of the left atrium Hypertension Hyperlipidemia, intolerant to multiple statin COPD Obesity and TREE - CPAP tx Diabetes mellitus II Carotid stenosis, totally occluded left ICA, less than 40 percent on the right side Plan: * Management of post op anemia per surgical/medical services - H/H stable following transfusions * Lovenox d/c'd on 08/03/20 due to continuos oozing from finger stump * Warfarin has been resumed but INR still subtherapeutic - monitor INR closely and adjust as indicated * Monitor labs TISH ARCEO Aug 06, 2020 10:48
--- NOTE | 2020-08-06 12:38 | Progress Note ---
Standard Progress Note Progress Notes/Assess & Plan Date Seen by a Provider: Aug 06, 2020 Time Seen by a Provider: 12:37 Progress/Assessment & Plan patient seen and evaluated consult dictated plan for amputation of LLF at [facility] tomorrow Final Diagnosis feeling better L LF incision clean and dry. No bleeding noted no erythema good cap refill s/p LLF amputation fu 2 weeks ELMO GRIFFITHS MD Aug 06, 2020 12:38
[2020-08-06] MEDS ORDERED: INSU100V5 SC (12:55)
[2020-08-06] MEDS ORDERED: OXYC1TAB87 PO (12:55)
--- NOTE | 2020-08-06 13:19 | Discharge Summary ---
Discharge Summary Reconcile Patient Problems Problems Reviewed?: Yes Instructions for Patient Via [facility] [place], Assessment/Instructions take medications as prescribed. Continue warfarin. He will have an INR check on Wednesday. Continue dressing changes as directed. Follow-up with your primary care physician. Follow up with cardiology. Return with worsening pain, fevers, bleeding, or if you feel like you're getting worse. Physician to follow Patient: Julissa Discharge Diet for Home: ADA Diet Hospital Course Date of Admission: Jul 28, 2020 at 14:09 Admission Diagnosis: Acute respiratory failure with hypoxia Family Physician/Provider: Ventura Costa MD Date of Discharge: 08/06/20 Discharge Diagnosis: Acute respiratory failure with hypoxia due to pneumonia, osteomyelitis of finger Hospital Course: Bin Newberry is a 69-year-old male with multiple medical comorbidities who presented with shortness of breath and was admitted with acute respiratory failure due to pneumonia. He was started on IV antibiotics. He responded well. He also had a Kelsey osteomyelitis of the middle finger of his left hand. He has been scheduled for an outpatient surgery. Dr. Rosales was consulted and performed the amputation during this hospital stay. His antibiotics were discontinued following his amputation as the source was removed. His course was complicated by postoperative anemia and bleeding. He was being bridged with Lovenox and this was held due to bleeding. His Coumadin was restarted but his INR was only 1.3 at the time of discharge. He should continue his Coumadin and will have an INR check on Wednesday. Cardiology was consulted and assisted with his care. His oxygen requirement returned to his baseline prior to discharge. His diabetes was well-controlled with a significantly less amount of insulin when he had been taking at home. He was decreased to 10 units of Levemir nightly. He was discharged home in stable condition and was set up with home health care. He should follow-up with his primary care physician in about a week. He should follow-up with cardiology as scheduled. Labs and Pending Lab Test: Laboratory Tests 08/05/20 15:34: Glucometer 120H 08/05/20 20:10: Glucometer 139H 08/06/20 04:45: White Blood Count 4.9, Red Blood Count 2.70L, Hemoglobin 7.5L, Hematocrit 24L, Mean Corpuscular Volume 88, Mean Corpuscular Hemoglobin 28, Mean Corpuscular Hemoglobin Concent 32, Red Cell Distribution Width 15.6H, Platelet Count 125L, Mean Platelet Volume 11.2, Immature Granulocyte % (Auto) 1, Neutrophils (%) (Auto) 69, Lymphocytes (%) (Auto) 18, Monocytes (%) (Auto) 9, Eosinophils (%) (Auto) 2, Basophils (%) (Auto) 0, Neutrophils # (Auto) 3.4, Lymphocytes # (Auto) 0.9L, Monocytes # (Auto) 0.5, Eosinophils # (Auto) 0.1, Basophils # (Auto) 0.0, Immature Granulocyte # (Auto) 0.1, Prothrombin Time 16.3H, INR Comment 1.3, Sodium Level 140, Potassium Level 4.5, Chloride Level 109H, Carbon Dioxide Level 22, Anion Gap 9, Blood Urea Nitrogen 32H, Creatinine 1.75H, Estimat Glomerular Filtration Rate 39, BUN/Creatinine Ratio 18, Glucose Level 104, Calcium Level 8.2L, Phosphorus Level 3.8, Magnesium Level 2.4 08/06/20 11:05: Glucometer 125H Microbiology 07/31/20 Gram Stain - Final, Complete 07/31/20 Anaerobic Culture - Final, Complete No anaerobes isolated 07/31/20 Surgical Culture - Final, Complete Corynebacterium striatum Staphylococcus epidermidis Streptococcus mitis group No Susceptibility Performed 07/28/20 MRSA Screen - Final, Complete MRSA not isolated 07/28/20 Blood Culture - Final, Complete No growth Home Meds Active Percocet 5-325 mg Tablet (Oxycodone HCl/Acetaminophen) 1 Each Tablet 1 Tab PO Q4H PRN 7 Days Levemir (Insulin Determir) 1,000 Units/10 Ml Soln 10 Units SC HS 30 Days LAST FILLED 06-04-2020 #2 VIALS/21 DAY SUPPLY Reported Clindamycin HCl 300 Mg Capsule 300 Mg PO QID FILLED 07-25-2020 #56/14 DAY SUPPLY Warfarin Sodium 7.5 Mg Tablet 7.5 Mg PO Q48H ALTERNATES BETWEEN 7.5MG & 10MG Ondansetron HCl 8 Mg Tablet 8 Mg PO Q8H PRN Warfarin Sodium 10 Mg Tablet 10 Mg PO Q48H ALTERNATES BETWEEN 7.5MG & 10MG Magnesium (Magnesium Oxide) 400 Mg Tablet 400 Mg PO DAILY Iprat-Albut 0.5-3(2.5) mg/3 ml (Ipratropium/Albuterol Sulfate) 3 Ml Ampul.neb 3 Ml IH Q6H PRN Folic Acid 1 Mg Tablet 1 Mg PO DAILY D3-2000 (Cholecalciferol (Vitamin D3)) 50 Mcg Capsule 50 Mcg PO BID Novolog (Insulin Aspart) 100 Unit/1 Ml Susp Unit SQ SLIDING/SCALE Hydralazine HCl 100 Mg Tablet 100 Mg PO TID Flomax (Tamsulosin HCl) 0.4 Mg Cap 0.4 Mg PO HS LAST FILLED 11-02-2019 #90/90 DAY SUPPLY Ascorbic Acid 500 Mg Tablet 500 Mg PO BID Potassium Chloride 20 Meq Tablet.er 20 Meq PO DAILY LAST FILLED 12-29-2019 #90/ DAY SUPPLY Lasix (Furosemide) 40 Mg Tablet 40 Mg PO BID LAST FILLED 06-19-2020 #60/30 DAY SUPPLY Ferrous Sulfate 325 Mg Tablet 325 Mg PO Q48H Meclizine HCl 25 Mg Tablet 25 Mg PO BID PRN Amitriptyline HCl 25 Mg Tablet 25 Mg PO HS LAST FILLED 12-29-2019 #90 DAY SUPPLY Finasteride 5 Mg Tablet 5 Mg PO HS Calcium 600 + Vit D 400 Tablet (Calcium Carbonate/Vitamin D3) 1 Each Tablet 1 Tab PO DAILY Aspirin EC (Aspirin) 81 Mg Tablet.dr 81 Mg PO DAILY Fish Oil 1,000 mg Softgel ([place]-3/Dha/Epa/Fish Oil) 1 Each Capsule 1,000 Mg PO BID Venlafaxine HCl ER (Venlafaxine HCl) 150 Mg Cap.er.24h 150 Mg PO DAILY Carvedilol 25 Mg Tablet 25 Mg PO BID Amlodipine Besylate 10 Mg Tablet 10 Mg PO DAILY LAST FILLED 06-04-2020 #3030 DAY SUPPLY Allopurinol 100 Mg Tablet 100 Mg PO DAILY LAST FILLED 12-29-2019 #90 DAY SUPPLY Gemfibrozil 600 Mg Tablet 600 Mg PO DAILY LAST FILLED 06-04-2020 #30/30 DAY SUPPLY Vitamin E (Vitamin E Acetate) 400 Unit Capsule 400 Unit PO DAILY Consulations Cardiology, Pulmonology, Orthopedic Surgery Patient Allergies: Coded Allergies: niacin (Unverified Allergy, Unknown, 06/26/10) rosuvastatin (Verified Allergy, Unknown, 04/20/07) fenofibrate (Unverified Adverse Reaction, Unknown, LIVER PROBLEMS, 01/23/15) Height (Feet): 6 Height (Inches): 0.00 Weight (Pounds): 322 Weight (Ounces): 1.0 Home Health Need/Face to Face Date of Face to Face: Aug 06, 2020 Clinical Findings: Generalized weakness and fatigue, Muscle weakness, Shortness of breath, Unsteady gait I have seen Pt [id number]: Yes Discharged To: Home Diagnosis/Conditions: Osteomyelitis AFib Debility Problems/Diagnosis/Condition: (1) Osteomyelitis of finger (2) Afib (3) Debility Patient is Homebound due to: Josh fall risk due to instabilty, Shortness of breath/distress Homebound Status Due to the above stated illness, injury or surgical procedure (medical condition or diagnosis) and associated clinical findings, the patient is homebound because of his/her inability to leave home except with aid of a supportive device and/or person AND leaving the home requires a considerable and taxing effort or is medically contraindicated. Pt req the following assistanc: Aid of another person Home Health Nursing Orders Home Health Services Order: Nursing Services, Wildlife Ecologist-Evaluate & Treat, Physical Therapy-Evaluate & Treat Home Health Infusion Therapy Line Start Date: Jul 30, 2020 Therapy Orders Therapy Orders: OT (must have SN or PT order), Physical Therapy Therapy Specific Orders: Eval assistive deivces, Teach enviro modif ications/safety, Gait training, Increase strength/endurance Certify Stmt I certify that this patient is under my care and that I, a nurse practitioner or a physician; a animal care assistant working with me, had a face to face encounter that -me ets the physician face to face encounter requirements with this patient as dated. Discharge Physical Exam General: Alert, No Acute Distress HEENT: Atraumatic, EOMI Lungs: Clear to Auscultation, Normal Air Movement Heart: Regular Rate, No Murmurs Abdomen: Normal Bowel Sounds, Soft, No Tenderness Extremities: Other (right BKA, mild edema) Skin: No Rashes Psych/Mental Status: Mental Status NL ANTOINETTE TOMLIN MD Aug 06, 2020 13:10
[2020-08-06 16:30] VITALS: BP 129/63
== END 2020-08-06 16:30 | disposition home health service (06) | DRG 853 ==
LOC: EDUNIT# 12:54 → ER 12:55 → ICU 14:09 → 4TH 07-30 11:38
PROVIDERS: ADMIT Internal Medicine; ATTEND Internal Medicine
PROC: 0X3K0ZZ Control Bleeding in Left Hand, Open Approach (ICD-10-PCS; 2020-07-31)
PROC: 0X6R0Z3 Detachment at Left Middle Finger, Low, Open Approach (ICD-10-PCS; principal; 2020-07-31 11:20)
DX: A41.9 Sepsis, unspecified organism (principal); J96.21 Acute and chronic respiratory failure with hypoxia; J18.9 Pneumonia, unspecified organism; I21.4 Non-ST elevation (NSTEMI) myocardial infarction; I21.A1 Myocardial infarction type 2; I42.9 Cardiomyopathy, unspecified; M86.142 Other acute osteomyelitis, left hand; N18.4 Chronic kidney disease, stage 4 (severe); J44.0 Chronic obstructive pulmonary disease with (acute) lower respiratory infection; I13.0 Hypertensive heart and chronic kidney disease with heart failure and stage 1 through stage 4 chronic kidney disease, or unspecified chronic kidney disease; Z68.41 Body mass index [BMI] 40.0-44.9, adult; I25.10 Atherosclerotic heart disease of native coronary artery without angina pectoris; E78.00 Pure hypercholesterolemia, unspecified; E11.40 Type 2 diabetes mellitus with diabetic neuropathy, unspecified; G89.29 Other chronic pain; M54.9 Dorsalgia, unspecified; M19.90 Unspecified osteoarthritis, unspecified site; N40.0 Benign prostatic hyperplasia without lower urinary tract symptoms; I48.91 Unspecified atrial fibrillation; Z79.01 Long term (current) use of anticoagulants; E11.69 Type 2 diabetes mellitus with other specified complication; E66.01 Morbid (severe) obesity due to excess calories; Z20.822 Contact with and (suspected) exposure to COVID-19; I50.9 Heart failure, unspecified; G47.33 Obstructive sleep apnea (adult) (pediatric); E11.65 Type 2 diabetes mellitus with hyperglycemia; R53.81 Other malaise; B36.9 Superficial mycosis, unspecified; D50.0 Iron deficiency anemia secondary to blood loss (chronic); I48.0 Paroxysmal atrial fibrillation; T87.89 Other complications of amputation stump; Z79.82 Long term (current) use of aspirin; Z95.1 Presence of aortocoronary bypass graft; Z95.5 Presence of coronary angioplasty implant and graft; Z86.718 Personal history of other venous thrombosis and embolism; Z79.4 Long term (current) use of insulin
CPT/HCPCS: 36415; 51702; 71045; 73120; 80048; 80053; 80202; 82805; 82962; 83605; 83735; 83880; 84100; 84145; 84484; 85007; 85025; 85027; 85379; 85610; 86850; 86900; 86901; 86920; 87040; 87070; 87075; 87077; 87081; 87205; 87635; 88305; 88311; 93005; 93306; 94640; 94660; 94664; 94668; 94760; 96365; 96372; 96375; 99291

== ENCOUNTER → 2020-08-19 | Outpatient (CLI) | payer MEDICARE ==
[~2020-08-19] MED LIST changes: +ONDA8TAB15 PO; +OXYC1TAB87 PO; +WARF7.5T3 PO
[2020-08-19 15:58] LABS: POTASSIUM 4.4 MMOL/L (3.6-5.0)
[2020-08-19 16:04] LABS: CREATININE SERUM 2.46 MG/DL (0.60-1.30)
== END ==
LOC: LAB 15:10
PROVIDERS: ATTEND Surgery
DX: I87.332 Chronic venous hypertension (idiopathic) with ulcer and inflammation of left lower extremity (principal); L97.222 Non-pressure chronic ulcer of left calf with fat layer exposed; S61.203A Unspecified open wound of left middle finger without damage to nail, initial encounter; T81.31XA Disruption of external operation (surgical) wound, not elsewhere classified, initial encounter; S61.502A Unspecified open wound of left wrist, initial encounter; N18.32 Chronic kidney disease, stage 3b
CPT/HCPCS: 36415; 80048

== ENCOUNTER → 2020-08-19 | Outpatient (CLI) | payer MEDICARE | LOC: WOUNDCARE 12:52 | PROVIDERS: ATTEND Surgery | DX: I96 Gangrene, not elsewhere classified (principal); I87.332 Chronic venous hypertension (idiopathic) with ulcer and inflammation of left lower extremity; L97.222 Non-pressure chronic ulcer of left calf with fat layer exposed; S61.203A Unspecified open wound of left middle finger without damage to nail, initial encounter; T81.31XA Disruption of external operation (surgical) wound, not elsewhere classified, initial encounter; S61.502A Unspecified open wound of left wrist, initial encounter; N18.32 Chronic kidney disease, stage 3b | CPT/HCPCS: A6197; G0463; 99214 ==

== ENCOUNTER → 2020-08-26 | Outpatient (CLI) | payer MEDICARE ==
[~2020-08-26] MED LIST changes: -FOLI1TAB24 PO; +FOLI1TAB33 PO
== END ==
LOC: WOUNDCARE 09:52
PROVIDERS: ATTEND Orthopaedic Surgery Hand Surgery
DX: I87.332 Chronic venous hypertension (idiopathic) with ulcer and inflammation of left lower extremity (principal); S61.203A Unspecified open wound of left middle finger without damage to nail, initial encounter; T81.31XA Disruption of external operation (surgical) wound, not elsewhere classified, initial encounter; S61.502A Unspecified open wound of left wrist, initial encounter; N18.30 Chronic kidney disease, stage 3 unspecified; S61.402A Unspecified open wound of left hand, initial encounter; S91.102A Unspecified open wound of left great toe without damage to nail, initial encounter; E11.622 Type 2 diabetes mellitus with other skin ulcer; E11.621 Type 2 diabetes mellitus with foot ulcer
CPT/HCPCS: A6197; G0463; 99214

== ENCOUNTER → 2020-09-02 | Outpatient (CLI) | payer MEDICARE | LOC: WOUNDCARE 09:52 | PROVIDERS: ATTEND Surgery | DX: S61.203A Unspecified open wound of left middle finger without damage to nail, initial encounter (principal); S61.402A Unspecified open wound of left hand, initial encounter; T81.31XA Disruption of external operation (surgical) wound, not elsewhere classified, initial encounter; S61.502A Unspecified open wound of left wrist, initial encounter; E11.22 Type 2 diabetes mellitus with diabetic chronic kidney disease; N18.32 Chronic kidney disease, stage 3b; E11.621 Type 2 diabetes mellitus with foot ulcer; L97.522 Non-pressure chronic ulcer of other part of left foot with fat layer exposed; E11.52 Type 2 diabetes mellitus with diabetic peripheral angiopathy with gangrene | CPT/HCPCS: 11042 ==

== ENCOUNTER → 2020-09-09 | Outpatient (CLI) | payer MEDICARE | LOC: WOUNDCARE 09:54 | PROVIDERS: ATTEND Surgery | DX: S61.203A Unspecified open wound of left middle finger without damage to nail, initial encounter (principal); S61.402A Unspecified open wound of left hand, initial encounter; T81.31XA Disruption of external operation (surgical) wound, not elsewhere classified, initial encounter; S61.502A Unspecified open wound of left wrist, initial encounter; N18.30 Chronic kidney disease, stage 3 unspecified; I96 Gangrene, not elsewhere classified | CPT/HCPCS: 11042; G0463 ==

== ENCOUNTER → 2020-09-22 | Outpatient (CLI) | payer MEDICARE ==
[~2020-09-22] MED LIST changes: -GEMF600T8 PO; +GEMF600T88 PO
[2020-09-22 21:31] LABS: ALBUMIN 3.7 GM/DL (3.2-4.5); POTASSIUM 4.3 MMOL/L (3.6-5.0)
[2020-09-22 21:32] LABS: CALCIUM 8.7 MG/DL (8.5-10.1)
[2020-09-22 21:33] LABS: TOTAL PROTEIN 6.6 GM/DL (6.4-8.2)
[2020-09-22 21:35] LABS: BILIRUBIN,TOTAL 0.3 MG/DL (0.1-1.0)
[2020-09-22 21:37] LABS: CREATININE SERUM 2.51 MG/DL (0.60-1.30)
== END ==
LOC: LABNPT 21:15
PROVIDERS: ATTEND Internal Medicine
DX: Z79.01 Long term (current) use of anticoagulants (principal)
CPT/HCPCS: 80053

== ENCOUNTER → 2020-09-23 | Outpatient (CLI) | payer MEDICARE | LOC: WOUNDCARE 10:10 | PROVIDERS: ATTEND Surgery | DX: S61.203A Unspecified open wound of left middle finger without damage to nail, initial encounter (principal); T81.31XA Disruption of external operation (surgical) wound, not elsewhere classified, initial encounter; S61.402A Unspecified open wound of left hand, initial encounter; S61.502A Unspecified open wound of left wrist, initial encounter; I96 Gangrene, not elsewhere classified; N18.32 Chronic kidney disease, stage 3b | CPT/HCPCS: 11042; G0463 ==

== ENCOUNTER → 2020-09-30 | Outpatient (CLI) | payer MEDICARE | LOC: WOUNDCARE 10:02 | PROVIDERS: ATTEND Surgery | DX: S61.203A Unspecified open wound of left middle finger without damage to nail, initial encounter (principal); I96 Gangrene, not elsewhere classified; S61.502A Unspecified open wound of left wrist, initial encounter; S61.402A Unspecified open wound of left hand, initial encounter; T81.31XA Disruption of external operation (surgical) wound, not elsewhere classified, initial encounter; N18.30 Chronic kidney disease, stage 3 unspecified | CPT/HCPCS: 11042; G0463 ==

== ENCOUNTER → 2020-10-07 | Outpatient (CLI) | payer MEDICARE ==
[~2020-10-07] MED LIST changes: +CALC-1026 PO; -CALC-664 PO; -FOLI0.4T2 PO; +FOLI0.4T6 PO; -MECL-173 PO; +MECL-215 PO
== END ==
LOC: WOUNDCARE 10:44
PROVIDERS: ATTEND Surgery
DX: S61.402A Unspecified open wound of left hand, initial encounter (principal); S61.502A Unspecified open wound of left wrist, initial encounter; I96 Gangrene, not elsewhere classified; E11.622 Type 2 diabetes mellitus with other skin ulcer; E11.22 Type 2 diabetes mellitus with diabetic chronic kidney disease; N18.32 Chronic kidney disease, stage 3b
CPT/HCPCS: 11042; G0463

== ENCOUNTER → 2020-10-14 | Outpatient (CLI) | payer MEDICARE | LOC: WOUNDCARE 09:48 | PROVIDERS: ATTEND Surgery | DX: S61.102A Unspecified open wound of left thumb with damage to nail, initial encounter (principal); S61.402A Unspecified open wound of left hand, initial encounter; I96 Gangrene, not elsewhere classified; S61.502A Unspecified open wound of left wrist, initial encounter; E11.22 Type 2 diabetes mellitus with diabetic chronic kidney disease; N18.32 Chronic kidney disease, stage 3b; E11.622 Type 2 diabetes mellitus with other skin ulcer | CPT/HCPCS: 17250; G0463 ==

== ENCOUNTER → 2020-10-21 | Outpatient (CLI) | payer MEDICARE | LOC: WOUNDCARE 10:08 | PROVIDERS: ATTEND Surgery | DX: S61.402A Unspecified open wound of left hand, initial encounter (principal); S61.502A Unspecified open wound of left wrist, initial encounter; E11.22 Type 2 diabetes mellitus with diabetic chronic kidney disease; E11.622 Type 2 diabetes mellitus with other skin ulcer; N18.32 Chronic kidney disease, stage 3b; E11.52 Type 2 diabetes mellitus with diabetic peripheral angiopathy with gangrene | CPT/HCPCS: 11042; G0463 ==

== ENCOUNTER → 2020-10-28 | Outpatient (CLI) | payer MEDICARE | LOC: WOUNDCARE 09:55 | PROVIDERS: ATTEND Surgery | DX: S91.102A Unspecified open wound of left great toe without damage to nail, initial encounter (principal); S61.402A Unspecified open wound of left hand, initial encounter; S61.502A Unspecified open wound of left wrist, initial encounter; E11.22 Type 2 diabetes mellitus with diabetic chronic kidney disease; N18.32 Chronic kidney disease, stage 3b; E11.622 Type 2 diabetes mellitus with other skin ulcer; L92.8 Other granulomatous disorders of the skin and subcutaneous tissue; E11.52 Type 2 diabetes mellitus with diabetic peripheral angiopathy with gangrene | CPT/HCPCS: 11042; 17250; G0463 ==